=== PATIENT | female | born 1995 | race Caucasian/White ===

== ENCOUNTER 2023-01-30 14:27 | Outpatient (OUT) | payer BC, SELFPAY ==
[2023-01-30 15:23] LABS: Basophils Percent Auto 0.3 % (0.2-2.0); Eosinophils Absolute Auto 0.1 10^3/uL (0.0-0.7); Eosinophils Percent Auto 1.3 % (0.9-7.0); Hemoglobin 13.1 g/dL (12.0-16.0); Immature Granulocytes Abs Auto 0.02 10^3/uL (0.00-0.03); Immature Granulocytes Pct Auto 0.3 % (0.0-0.5); Lymphocytes Absolute Auto 1.9 10^3/uL (1.2-3.8); Lymphocytes Percent Auto 29.5 % (20.5-60.0); Mean Corpuscular HGB Conc 34.5 g/dL (29.9-35.2); Mean Corpuscular Hemoglobin 30.3 pg (26.7-34.0); Mean Platelet Volume 10.5 fL (9.5-13.5); Monocytes Absolute Auto 0.4 10^3/uL (0.3-0.8); Monocytes Percent Auto 5.9 % (1.7-12.0); Neutrophils Absolute Auto 3.9 10^3/uL (1.4-6.5); Neutrophils Percent Auto 62.7 % (43.0-75.0); Platelet Count 230 10^3/uL (150-450); Red Blood Count 4.32 10^6/uL (4.20-5.40); White Blood Count 6.3 10^3/uL (4.0-11.0)
[2023-01-30 16:16] LABS: Alanine Aminotransferase 54 U/L (14-59); Albumin Globulin Ratio 1.1; Alkaline Phosphatase 57 U/L (46-116); Anion Gap 11.4; Aspartate Amino Transferase 23 U/L (15-37); Bilirubin Total 0.8 mg/dL (0.2-1.0); Carbon Dioxide 28.5 mmol/L (21.0-32.0); Chloride 105 mmol/L (98-107); Estimated GFR (African America >60 (>=60); Estimated GFR (Non-African Ame >60 (>=60); Free Thyroxine Index 2.78 (1.30-4.50); Globulin 3.7 g/dL; Glucose 96 mg/dL (74-106); Potassium 3.9 mmol/L (3.5-5.1); Sodium 141 mmol/L (136-145); Thyroid Stimulating Hormone 2.243 uIU/mL (0.358-3.740); Total Protein 7.7 g/dL (6.4-8.2)
== END 2023-01-30 14:28 | disposition home or self-care (01) ==
LOC: LAB 14:31
PROVIDERS: PCP Family Medicine; Visit Provider Psychiatry & Neurology Psychiatry
DX: F41.8 Other specified anxiety disorders (principal); Z79.899 Other long term (current) drug therapy
CPT/HCPCS: 36415; 80053; 84436; 84443; 84479; 85025

== ENCOUNTER 2023-07-01 09:34 | Emergency (ER) | payer BC, SELFPAY ==
[2023-07-01 09:42] VITALS: BP 123/89; PULSE 93; RESP 18; TEMP 36.6; O2SAT 98; BMI 29.5
--- NOTE | 2023-07-01 09:47 | ED_ITS ---
HPI - Nausea/Vomiting/Diarrhea General Chief complaint: Nausea/Vomiting/Diarrhea Stated complaint: FLU LIKE SYMPTOMS Time Seen by Provider: 07/01/23 09:36 Source: patient Mode of arrival: walk-in Limitations: no limitations History of Present Illness HPI Narrative: this patient's here primarily because of nausea vomiting and diarrhea. Historically she got sick a couple weeks ago with upper respiratory symptoms. S he had severe aches pains chills myalgias. Her family doctor called in a prescription for Keflex. She's not taken it for a number of days because she's been so nauseated. She is urinating far less than usual. She did not have unilateral flank pain. She's not had blood in her urine and has not had urinary type symptomatology. She says as I mentioned, voiding much less than usual. Over the last several days now she's developed gastrointestinal symptoms) having upper estuary symptoms. She did test for Covid home was negative. She did not see a health care provider. Related Data Home Medications Medication Instructions Recorded Confirmed buspirone 15 mg tablet 15 mg PO BID 07/01/23 07/01/23 cephalexin 500 mg capsule 500 mg PO Q12H 07/01/23 07/01/23 drospirenone 3 mg-ethinyl 1 tab PO DAILY 07/01/23 07/01/23 estradiol 0.03 mg tablet hydroxyzine pamoate 50 mg capsule 50 mg PO Q6H PRN nausea and 07/01/23 07/01/23 vomiting ondansetron 4 mg disintegrating 4 mg PO Q12H 07/01/23 07/01/23 tablet venlafaxine 150 mg 150 mg PO DAILY 07/01/23 07/01/23 capsule,extended release 24 hr Allergies Allergy/AdvReac Type Severity Reaction Status Date / Time hydrocodone AdvReac Intermediate Verified 07/01/23 09:41 oxycodone AdvReac Intermediate Verified 07/01/23 09:41 pcn AdvReac Intermediate Uncoded 07/01/23 10:24 PFSH PFSH Social History Smoking status: Never smoker Exam Narrative Exam Narrative: awake alert no obvious distress moves about comfortably with no guarding. Vital signs are stable she is afebrile. Skin and integument show no tenting of the skin there is good color there is good tissue perfusion. There is no diaphoresis or clamminess. Her eyes do not show any scleral icterus or evidence of anemia. There is no conjunctivitis. Examination abdomen is good bowel sounds in all quadrants previous incisions from cholecystectomy are noted. There is no guarding rebound rigidity or peritoneal findings. No tenderness at McBurney's point actually there is no tenderness at all. Constitutional Vital Signs, click to edit/add: Last Vital Signs Temp 97.9 F 07/01/23 09:42 Pulse 93 H 07/01/23 09:42 Resp 18 07/01/23 09:42 BP 123/89 07/01/23 09:42 Pulse Ox 98 07/01/23 09:42 Course Vital Signs Vital signs: Vital Signs Temperature 97.9 F 07/01/23 09:42 Pulse Rate 93 H 07/01/23 09:42 Respiratory Rate 18 07/01/23 09:42 Blood Pressure 123/89 07/01/23 09:42 Pulse Oximetry 98 07/01/23 09:42 Temperature 97.9 F 07/01/23 09:42 Pulse Rate 93 H 07/01/23 09:42 Respiratory Rate 18 07/01/23 09:42 Blood Pressure 123/89 07/01/23 09:42 Pulse Oximetry 98 07/01/23 09:42 MDM - Nausea/Vomiting/Diarrhea MDM Narrative Medical decision making narrative: laboratory testing is essentially normal. Her BUN/creatinine are normal. Her specific gravity in the urine is normal. There is no ketones in the urine. Her white blood cell count is normal. She did feel better after hydration.supportive care for vomiting and diarrhea was discussed. Discharge Plan Discharge Chief Complaint: Nausea/Vomiting/Diarrhea Clinical Impression: Gastroenteritis Patient Disposition: Home, Self-Care Time of Disposition Decision: 11:09 Prescriptions / Home Meds: No Action buspirone 15 mg tablet 15 mg PO BID cephalexin 500 mg capsule 500 mg PO Q12H ondansetron 4 mg tablet,disintegrating 4 mg PO Q12H drospirenone-ethinyl estradiol 3-0.03 mg tablet 1 tab PO DAILY venlafaxine 150 mg capsule,extended release 24hr 150 mg PO DAILY hydroxyzine pamoate 50 mg capsule 50 mg PO Q6H PRN (Reason: nausea and vomiting) Additional Instructions: clear fluids until stomach starts to feel better. Stand Alone Forms: Portal Instructions Referrals: Sixto Gomez MD [Primary Care Provider] - 1 week
[2023-07-01] MEDS: 0.9 % SODIUM CHLORIDE 1,000 ML 999 ML IV ×2 (10:05→10:46)
[2023-07-01] MEDS: ONDANSETRON PF 4 MG/2 ML VIAL IV (10:05)
[2023-07-01 10:13] LABS: Basophils Percent Auto 0.5 % (0.2-2.0); Eosinophils Absolute Auto 0.1 10^3/uL (0.0-0.7); Hematocrit 38.1 % (36.0-48.0); Hemoglobin 13.4 g/dL (12.0-16.0); Immature Granulocytes Abs Auto 0.01 10^3/uL (0.00-0.03); Immature Granulocytes Pct Auto 0.2 % (0.0-0.5); Lymphocytes Absolute Auto 2.7 10^3/uL (1.2-3.8); Lymphocytes Percent Auto 44.6 % (20.5-60.0); Mean Corpuscular HGB Conc 35.2 g/dL (29.9-35.2); Mean Corpuscular Hemoglobin 31.2 pg (26.7-34.0); Mean Corpuscular Volume 88.6 fL (81.0-99.0); Mean Platelet Volume 11.3 fL (9.5-13.5); Monocytes Absolute Auto 0.4 10^3/uL (0.3-0.8); Neutrophils Absolute Auto 2.9 10^3/uL (1.4-6.5); Neutrophils Percent Auto 46.7 % (43.0-75.0); Platelet Count 213 10^3/uL (150-450); Red Cell Distribution Width 11.5 % (11.0-15.0); White Blood Count 6.1 10^3/uL (4.0-11.0)
[2023-07-01 10:13] LABS: Bilirubin Urine NEGATIVE (NEGATIVE); Blood Urine TRACE-I (NEGATIVE); Clarity Urine CLEAR (CLEAR); Color Urine LT. YELLOW (YELLOW); Glucose Urine UA NEGATIVE (NEGATIVE); Ketones Urine NEGATIVE (NEGATIVE); Leukocyte Esterase Urine NEGATIVE (NEGATIVE); Nitrite Urine NEGATIVE (NEGATIVE); Protein Urine NEGATIVE (NEG/TRACE); Urobilinogen Urine 0.2 EU/dL (0.2-1.0)
[2023-07-01 10:17] LABS: Urine Microscopic Indicated YES
[2023-07-01 10:32] LABS: Bacteria Urine SMALL #/HPF (NONE SEEN); Cast Seen? NONE SEEN #/LPF (NONE SEEN); Crystals Seen? None Seen #/HPF (None Seen); Mucus Urine NONE SEEN (NONE SEEN); RBC Urine 0-2 #/HPF (0-2); Squamous Epithelial Cell Urine FEW #/LPF (NONE/RARE); Urine Culture Indicated YES; WBC Urine NONE SEEN #/HPF (NONE SEEN)
[2023-07-01 10:42] LABS: Alanine Aminotransferase 46 U/L (14-59); Albumin Level 3.9 g/dL (3.4-5.0); Alkaline Phosphatase 50 U/L (46-116); Anion Gap 10.5; Aspartate Amino Transferase 26 U/L (15-37); BUN Creatinine Ratio 14.5; Bilirubin Total 0.7 mg/dL (0.2-1.0); Calcium 9.4 mg/dL (8.5-10.1); Carbon Dioxide 25.1 mmol/L (21.0-32.0); Chloride 102 mmol/L (98-107); Estimated GFR (African America >60 (>=60); Estimated GFR (Non-African Ame >60 (>=60); Globulin 3.8 g/dL; Glucose 97 mg/dL (74-106); Potassium 3.6 mmol/L (3.5-5.1); Sodium 134 mmol/L (136-145); Total Protein 7.7 g/dL (6.4-8.2)
== END 2023-07-01 11:17 | disposition home or self-care (01) ==
PROVIDERS: Emergency Provider Emergency Medicine Emergency Medical Services; PCP Family Medicine
DX: K52.9 Noninfective gastroenteritis and colitis, unspecified (principal); Z79.899 Other long term (current) drug therapy
CPT/HCPCS: 36415; 80053; 81001; 83690; 85025; 87086; 96361; 96374; 99284; J2405

== ENCOUNTER 2023-09-09 20:29 | Outpatient (REF) | payer BC, SELFPAY ==
[2023-09-13 10:13] LABS: Age Gdln ACOG Testing Note (.); HPV Aptima Negative (Negative); IGP, Aptima HPV, rfx 16/18,45 Note (.)
== END 2023-09-09 20:30 | disposition home or self-care (01) ==
LOC: LAB 20:29
PROVIDERS: PCP Family Medicine; Visit Provider Obstetrics & Gynecology
DX: Z01.419 Encounter for gynecological examination (general) (routine) without abnormal findings (principal)
CPT/HCPCS: 87624; G0145

== ENCOUNTER 2023-09-10 08:26 | Outpatient (OUT) | payer BC, SELFPAY ==
--- NOTE | 2023-09-10 08:28 | US_ITS ---
The [address] [address] Patient Name: RAJIV LANDAVERDE MRN: [id number] date: 1995 Sex: F Assigned Patient Location: [facility] Current Patient Location: [facility] Accession/Order Number: [id number] Exam Date: 09/10/2023 08:28 Report Date: 09/10/2023 09:41 At the request of: TRESA LOZANO Procedure: US pelvis w/ transvaginal EXAM: Pelvic ultrasound HISTORY: . PELVIC PAIN . COMPARISON: None. TECHNIQUE: Transabdominal and transvaginal scanning was performed FINDINGS: Scanning of the pelvis demonstrates the uterus to measure 8.1 x 3.6 x 4.7 cm. Uterus is anteverted. Endometrial complex measures 5 mm. Right ovary measures 3.2 x 3.3 x 1.5 cm. Color-flow is noted. No masses are noted. Follicles are noted. Left ovary measures 2.6 x 2.5 x 1.7 cm. Color-flow is noted. Follicles are noted. No fluid is noted in the cul-de-sac. US/US pelvis w/ transvaginal IMPRESSION: Normal ultrasound of the pelvis. Electronically authenticated by: TONE MEJIA Date: 09/10/2023 09:41
--- OUTSIDE RECORDS SUMMARY | 2023-09-10 08:31 | XMS_ITS | CCD ---
Author Organization [facility] Care Team Providers Care Warehouse Operations Manager Name Role Phone DR AKASH MARTINEZ Admitting Unavailable MICHELLE, DR AKASH Murray Attending Unavailable GUS, DR [facility] Unavailable MARILIN ROWELL Consulting Unavailable GUS, DR [facility] Unavailable ELSIE HIGGINS Admitting Unavailable ELSIE HIGGINS Attending Unavailable JEANIE SEWELL Consulting Unavailable MICHELLE, DR AKASH Murray Admitting Unavailable MICHELLE, DR AKASH Murray Attending Unavailable GUS, DR [facility] Primary [facility] Unavailable MICHELLE, DR AKASH Murray Consulting Unavailable MICHELLE, DR AKASH Murray Admitting Unavailable MICHELLE, DR AKASH Murray Attending Unavailable GUS, DR [facility] Unavailable MICHELLE, DR AKASH Murray Consulting Unavailable MARILIN ROWELL Consulting Unavailable MICHELLE, DR AKASH Murray Admitting Unavailable MICHELLE, DR AKASH Murray Attending Unavailable GUS, DR [facility] Unavailable MICHELLE, DR AKASH Murray Consulting Unavailable Unavailable Primary Care Provider UnavailMY Lee Attending Unavailable FLYNN ARCHIBALD Attending Unavailable FLYNN ARCHIBALD Attending Unavailable Allergies Allergy Classification Reported Allergen(s) Allergy Type Date of Onset Reaction(s) Facility (2 sources) HYDROcodone Drug Allergy [address] [facility] Repository (2 sources) oxyCODONE Drug Allergy [address] [facility] Repository (2 sources) Penicillins Drug allergy (disorder) 5 [facility] Repository (3 sources) Acetaminophen / HYDROcodone Drug Allergy 4 Unknown [facility] (3 sources) HYDROcodone Drug Allergy 4 Hives [facility] Work Phone: (3 sources) oxyCODONE Drug Allergy 4 Hives [facility] (3 sources) Penicillin G Drug Allergy 4 [facility] (3 sources) Penicillin G sodium Allergy to substance 4 Rash [facility] Healthcare (3 sources) Penicillins Drug Allergy 4 Hives [facility] (3 sources) Sulfamethoxazole / Trimethoprim Drug Allergy 4 Rash [facility] Healthcare (3 sources) Sulfonamides (Antibiotic) Drug Allergy 4 [facility] Healthcare Medications Current Medications Medication Drug Class(es) Dates Sig (Normalized) Sig (Original) drospirenone 3 mg / ethinyl estradiol 0.03 mg oral tablet (3 sources) Progestin, Estrogen Start: 04-24-2023 End: 04-23-2024 drospirenone-ethin yl estradiol ([place], [place]) 3-0.03 MG tablet Indications: Uses control Take 1 tablet by mouth in the morning. 360 tablet 0 04/24/2023 04/23/2024 Active valACYclovir 500 mg oral tablet (2 sources) Herpesvirus Nucleoside Analog DNA Polymerase Inhibitor, Herpes Simplex Virus Nucleoside Analog DNA Polymerase Inhibitor, Herpes Zoster Virus Nucleoside Analog DNA Polymerase Inhibitor Start: 08-08-2023 take 1 tablet by mouth once daily valACYclovir (Valtrex) 500 MG tablet Indications: Herpesviral vesicular dermatitis Take 1 tablet daily, by mouth, 30 days 30 tablet 11 08/08/2023 Active Start: 08-08-2023 take 1 tablet by dat th once daily valACYclovir (Valtrex) 500 MG tablet Indications: Herpesviral vesicular dermatitis Take 1 tablet daily, by mouth, 30 days 30 tablet 11 08/08/2023 Active Problems Active Problems Problem Classification Problem Date Documented Date Episodic/Chronic Spondylosis; intervertebral disc disorders; other back problems (6 sources) Spondylosis without myelopathy or radiculopathy, lumbar region; Translations: [Other intervertebral disc degeneration, thoracic region] Onset: 07-20-2021 Chronic Unclassified (2 sources) COUGH, UNSPECIFIED; Translations: [COUGH, UNSPECIFIED] Onset: 09-05-2021 Unclassified (1 source) CONTACT W/AND (SUSP) EXPOS COVID-19; Translations: [CONTACT W/AND (SUSP) EXPOS COVID-19] Onset: 09-05-2021 Unclassified (1 source) LOW BACK PAIN, UNSPECIFIED; Translations: [LOW BACK PAIN, UNSPECIFIED] Onset: 08-03-2021 Viral infection (2 sources) Herpesviral vesicular dermatitis; Translations: [Herpesviral vesicular dermatitis] 08-08-2023 Episodic Past or Other Problems Problem Classification Problem Date Documented Da te Episodic/Chronic Abdominal pain (4 sources) Unspecified abdominal pain; Translations: [UNSPECIFIED ABDOMINAL PAIN] Onset: 07-18-2021 Episodic Other aftercare (1 source) Other detention (current) drug therapy; Translations: [OTH ASSISTED CURRENT DRUG THERAPY] Onset: 09-05-2021 Episodic Other upper respiratory infections (1 source) Acute upper respiratory infection, unspecified; Translations: [ACUTE UP RESPIRATORY INFECTION UNS] Onset: 09-05-2021 Episodic Unclassified (1 source) COUGH, UNSPECIFIED; Translations: [COUGH, UNSPECIFIED] Onset: 09-03-2021 Results Test Name Value Interpretation Reference Range Facility Covid-19 PCR ([facility])on 08-22 SARS-CoV-2 (COVID-19) RNA MARY+probe Ql (Unsp spec) Not detected Normal NOT DETECTED [facility] Comment on above: Result Comment: This test is not yet approved or cleared by the [place] FDA. When there are no FDA-approved or cleared tests available, and other criteria are met, FDA can make tests available under an emergency access mechanism called an Emergency Use Authorization (EUA). The EUA for this test is supported by the [place] of Health and Human Service's (HHS's) declaration that circumstances exist to justify the emergency use of in vitro diagnostics for the detection and/or diagnosis of the virus that causes COVID-19. This EUA will remain in effect (meaning this test can be used) for the duration of the COVID-19 declaration justifying emergency of IVDs, unless it is terminated or revoked by FDA (after which the test may no longer be used). When diagnostic testing is negative, the possibility of a false negative should be considered in the context of a patient's recent exposures and the presence of clinical signs and symptoms consistent with SARS-CoV-2. Performed By: #### C VDTB #### [facility] [address] [place] [address] Dr. Karlos Augustin GROUP A STREP CULTUREon 08-22 S. pyogenes Ag Ql (Unsp spec) Culture Observations: NEGATIVE FOR GROUP A STREPTOCOCCUS. Normal [facility] Comment on above: Performed By: #### S ДМИТРИЙ GRASTCX #### [facility] [address] [place] [address] Dr. Karlos Augustin INFLUENZA A AND B AGon 09-03 INFLUANEGH SEE BELOW Normal [facility] Comment on above: Result Comment: Nega tive for Flu A protein angiten. Infection due to Flu A cannot be ruled out. Flu A angiten in the sample may be below the detection limit of the test. Performed By: #### I NFLUAB #### [facility] [address] [place] [address] Dr. Karlos Augustin INFLUBNEGH SEE BELOW Normal [facility] Comment on above: Result Comment: Nega tive for Flu B protein antigen. Infection due to Flu B cannot be ruled out. Flu B antigen in the sample may be below the detection limit of the test. Performed By: #### I NFLUAB #### [facility] [address] [place] [address] Dr. Karlos Augustin INFLUENZA A AG Negative Normal NEGATIVE SEE COMMENT [facility] Comment on above: Performed By: #### I NFLUAB #### [facility] [address] [place] [address] Dr. Karlos Augustin INFLUENZA B AG Negative Normal NEGATIVE SEE COMMENT [facility] Comment on above: Performed By: #### I NFLUAB #### [facility] [address] [place] [address] Dr. Karlos Augustin INTERNAL CONTROLS Within Normal Limits Normal Wi thin Normal Limits [facility] Comment on above: Performed By: #### I NFLUAB #### [facility] [address] [place] [address] Dr. Karlos Augustin STREPT SCREENon 09-03-2021 STREP SCREEN A Negative Normal NEGATIVE [facility] Comment on above: Performed By: #### S ДМИТРИЙ GRASTCX #### [facility] [address] [place] [address] Dr. Karlos Augustin PREG HCG QUALon 08-01-2021 , QUAL Negative Normal NEGATIVE [facility] Comment on above: Performed By: #### P REG #### [facility] [address] [place], [place] [address] Dr. Karlos Augustin PREG HCG QUALon 07-04-2021 , QUAL Negative Normal NEGATIVE [facility] Comment on above: Performed By: #### P REG #### [facility] [address] [place], [place] [address] ABDOMEN AND PELVIS W IV C [facility] 04-05-2021 CT ABDOMEN AND PELVIS W IV CONTRAST [facility] Department of Radiology [address] [place] [id number] Patient Name: RAJIV TOVAR : 1995 Sex: F Age: Race: White Pt. Location: [facility] Patient Status: D Ordered Date: 03/21/2021 4:00:00 PM Completed Date: 04/05/2021 03:49 PM Requesting Provider: ДМИТРИЙ CALLAHAN Attending Provider: ДМИТРИЙ CALLAHAN Report Copy To: ALON WEBER Signs & Symptoms: R10.31 Right lower quadrant pain I10 History: Josefa Is patient on meds for HTN or DM? 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 Per BS [employer] for CPT 72843 Ref#[id number] Med Nec-Passed *SLA Comments: Exam: CT ABDOMEN AND PELVIS W IV CONTRAST CLINICAL HISTORY: Right lower quadrant pain. TECHNIQUE/PROCEDURE: CT abdomen and pelvis with intravenous contrast. Automated exposure control was utilized. COMPARISON: No relevant prior studies available. FINDINGS: The lung bases are clear. The heart size is normal. No pericardial effusion. Normal hepatic morphology. No focal intrahepatic lesions are identified. Status post cholecystectomy. There is no biliary dilatation or portal venous thrombus. Pancreas is unremarkable. Spleen is normal in size. The adrenal glands and kidneys are within normal limits. There is a 3 mm calculus in the left upper pole. The urinary bladder is unremarkable given the degree of distention. Uterus and ovaries present. Abdominal aorta is nonaneurysmal. The IVC is right-sided. No enlarged abdominal or pelvic lymph nodes. Air and stool are scattered throughout the colon. There is no bowel dilatation. There is no free air or free fluid. The appendix is within normal limits. The osseous structures are age compatible. No aggressive osseous lesions. IMPRESSION: * No acute abdominal or pelvic findings. All CT scans at this facility use dose modulation, iterative reconstruction, and/or weight based dosing when appropriate to reduce radiation dose to as low as reasonably achievable. Electronically signed: Noemy Stanley M.D.. Transcribed by: [email or web address], User Resident: Electronically Signed by: NOEMY STANLEY @ 04/07/2021 01:25 PM Normal [facility] CHEST 2 [facility] 03-21-2021 [facility] CHEST 2 [facility] Department of Radiology [address] [place] [id number] Patient Name: RAJIV TOVAR : 1995 Sex: F Age: Race: White Pt. Location: [facility] Patient Status: D Ordered Date: 03/21/2021 2:25:00 PM Completed Date: 03/21/2021 02:22 PM Requesting Provider: ДМИТРИЙ CALLAHAN Attending Provider: Report Copy To: Signs & Symptoms: R07.81 Pleurodynia I10 History: [place] Comments: right ribs pain Exam: [facility] CHEST 2 VWS [facility] CHEST 2 VWS 03/21/2021 2:22 PM CLINICAL INDICATIONS: R07.81 Pleurodynia I10 TECHNOLOGIST COMMENTS: right lateral sided rib pain x 1 year no known injury QUESTION FOR THE RADIOLOGIST: right ribs pain PROTOCOL: AP(PA) and Lateral views were obtained. COMPARISON: None FINDINGS: Heart size normal lung lara clear. The lung lara are well-inflated suggesting air trapping. IMPRESSION: Air trapping without acute airspace disease Electronically signed: Cyril Olivo. Transcribed by: [email or web address], User Resident: Electronically Signed by: CYRIL OLIVO @ 03/22/2021 02:39 PM Normal [facility] Comment on above: Order Comment: right ribs pain Coding Summary.on 03-03-2021 Coding Summary. CD:[id number] G h0bWw+PGhlYWQ+OH4IIXR rT07exBArdF6ZH4sCKI7Y PTGFDGTPOD3IHK5diKY1U SdkD6OrrfCc NqiqjAZfMO41NHt3SCX9g JkqGYeqhU3ypJKfW0n4Rb CgQG36mM30TBjyRLHqGpY 3LjZpbjsgbWFy H3leVqGmaLKhWeg+PHRhY mxlIHdpZHRoPScxMDAlJy PqjUspOA1zBe6wMTRtZAT vbGxhcHNlOiBj d4leEKUrVVzcOT5yqArpD 9MqaCC6EJEpe1f5Nw16sI I+XMUmFCU4iEnjNUlej37 2HfKmo6dhTWH5 eYBcGAbvMBY1F98tj4E0G ZZeDUUlAVU8zIZ0aJ7cfR tgdgmxJ2VcbJJrBnK8ESY 6fHYnoK0omZdn irzxsB4cJkb+F98XSU7UN AGJZQ7UIcj5Z0GhMsovmX I+WT35WCGtUL78gANmwUF hc3whqUi4AuDk CBGkHDT4bKgtIZctb8HuG PZrP64bxTTsw5Q8GGWxqW rffSUcHlPriQK6bM7hTIn wteons7fhrfrx Dlfwr4wqmf25vA90Y93dS SvaWLGvFBN4GFLsWAWkbF xemo1rkY6dAa7+IKlri8w dq3qiaUi8FxEh ABDckxSxwBnsVXH5z8KsR j08U1BnvUocu1CqJcy2ue 11xTXtz3N1eFB2WSgsXRL swM0nHBhoDjF9 SHUcJxEbhP09tAVgFBqfD b1dtNlnwLbcGC5aDMLhsu acLQDbfZ1vSRRciTSvsUv mSE4lZLFgzsag g064OoXhPDD7CJEvxDYuZ 1EqpV8bAjDfZSNmTWHeH6 DjrILhIDspL802KKfcVaR 8TKPizfVvC3Cx OIKjhSteJkL3e2C7Ic3Aa 1SxrolkDYZ7VUdrQGG4Ly MuCiTsVsJ0Q9CxArg1VMQ fqPezPF8vT1Gz BLRjazpyqbrxaAC2TQOjF AIrmM98iSOhEFooSk5jo7 T0p528CMDmMFPsfP21Ce2 udDogMTBwdCBU bE4qbqnel0trdeafOtUdL GRfNWs9NHj0KDErdEtjKg EpWLY5JkA7OHT5hOTlqY2 prWkxpvcvhL2a Oyc+C25dfZ4kUKL4TVW4w kdwUAXrcxKyQI20HS48H3 RyPjwvdGFibGU+PGRpdiB hoPsfUS0gBhGv n9fmp2WrVRtkI0KkOFBfE OgeOns4FFDeWHG2aZM9mW 8vPOAtCZozv1V9pTA5W2S hyfBjoh1wd2fe NONhYMirY04xrDCaj1E4D JXvxDI5EROjbYaaHaJnwP 93Oyc+KRMlpHaxb6AuCmy jm5qiu4xptDh3 NgMaVHEwkwKinJcaHRT8g 5XxSe02Q26rZLarWFQaQZ ZmBPZzLDKmtEfube2pnP0 wIi8+PGNvbCB3 nKE8wB7kPMKyRcN9KRluJ 610RqFrzALtOgsal3gmw9 xkoFt2ZaDcJEJfsjLlyYq kSNX2e3CiAy20 D70sGDrfTNQzNSDoLQVoP MTbsJzrrl2keK0xIf7+PC 2lw7ifgg20iW38lVB+PHR sOYB8mCymQExq LHUzbH9mBWcgIfI6OBClQ jRsuP30dEOoCAyeZc7lhF gkuRktQK8sVVSpdhwbo33 0AqXfv8dvMGTu sXFiIQtaXFF5Z57ib0H2P IDtETNbPWQ2wDS0wY2ehE lnbjogbGVmdDsgdmVydGl uRCbpOXruA298 IHRvcDsnPlBhdGllbnQgT aXnYQm5A9PbLbr3IGYmqY vxIM9ebTZsFMpjMq9wiRe toGrcGO3hFDCg bhsgx970AgAof8zxKZPzp SKiDGboPXA5H51lk4B7RP GhHGCgYNG9kVA6jD5vfBv nbjogbGVmdDsg cwTvfJdkYQfcUDgbS439N HRvcDsnPkJpcnRoIERhdG U6JE92EK09dNStt1M6yRY 0G9AfKTMbuhxq ezldrDT0WFPiQGCjhS44P h4xeXsrRl0bCPZgWQF3EW OspDYuH8AteQ7hBvXyALJ fCTDwE6VsbQVf KMyfQ813KPvkLqW1VZQpi eYqJ8VvETUnmOpwGmL3n2 X8Fs7YL7V4RJ46OZ67xBQ ao5Z7lSJ7Y8Rz CMPyporsbgsmlUW3DPKqH CVmvQ50Eu5jnSuoYc7qDH QpDJY4SQPenLYhK2TzoB1 yOiAjMDAwMDAw D7XvoQKtZLpvT225PLqyM lR9JKOesjJqB9SfDUHwyF cdGwW2u9G6Qb5XLEu4KN7 9PP52eNTux5O4 cGY8J7OiLHJopqqlfhumj TF2XICkELOznF99Sa1zhA pqMv5wTIJvBSQ3TEIblOB iQ2KqsT3mImNf LUSrAIEhS1FhgHShQMxwN 622BNoqOwN4ZSVwuzVwG5 GdGQKbzKvaIxH3h5P8Fx5 WIWJtUE16TJG8 pYV6LU38VR99W4UnSqyvd GFibGU+PHRhYmxlIHdpZH RoPScxMDAlJyBzdHlsZT0 bKl6gPDPqXHIw tEfiiYRlWcFme4lgWHZbJ AtnHB6eqXipF0OcaBL6QM Knv5j9Hl65B33wR3YpyIN +YEHgrGK2oDH9 mO5kQnGsDbT0SDfeF934H zPmxVYzCmufk6oqv4ohmW a3FzN3XHDgzhKcxQunBWU 3a6DxOo94Z59s IHdpZHRoPSIxNSUiIHZhb Kdznu4xkZ9kAj0+PGNvbC I8yLB3uY7jXeKvImW5CVz qY411WxYtdHJu Idibh4zcp5qmhMa9SbQeZ QAiavVsmYsrSWA4j2LxTm 82N6EuiMlcp4IhXxh3gt3 6lEVeg6P1iVU8 R0WiKXTqkiklwYRbeHnyG F0lYTRazkxsBWPliR1dSX VxA0u3KzTtHiT0JHkmY2H zjlQ5MITttYNx LIyyTXP4U29uv9F4PNIjZ ZEaIXK2wIX8xY7hbAamet ogbGVmdDsgdmVydGljYWw cAFpaU732MRBv rNpwYAXwfK5vYSDsxPSgw ZvzXO6fDJImrmqgUeKJDD ENSZZWHVtHG7Q4M2WhMjf 8FNItmErwJC7z zIXpHVenEm6neXgdjPueZ X7hKWLsvzkxWNRsbG1hUB BavDVpaUhdUD5oDRXtmlj cx415XcCaBUW8 TJNkfDWpN6LnwQ0kRpWkP CFuXBYgA3SwvUIdELlvG8 05AZccOwA6OWCjmdCxH6A sLWFsaWduOiB0 q6Y1Av4pML1eLh5vCCkrZ O30SP88sHEuv5I8cHU9N4 AhWQSeicntyqwesUB5EPN rYWDpxH60aYYc KDwvKf0hh9A7j638MUEfQ KTrgS33Pp0piQxsURXndU AMiA4xtkxpr9uvqbioOqA eBRMjLVi2OAy7 QLCtqPawLmTkIQI8OdY8Y XJ2uCKeaW4aqMyoswetlQ 9wOyc+FjeyTDTztmD7V7A uMki3MFTigQjx KM3fmWTwPFohWv3qjBmuy EkgAQ5iOXMqpimkCDJfiN 8vOWVirGEewGosWZ7rUEZ sxmjdb511XiVo ERF2HKUdyFNdZ3VukM2nJ eUsDSNlSTIuK2OztHKmCG vxM125GZojFhY2SCHztaS hZ3FjXZVwtFwa TwJ3n0X3Ak1GAX2mgNK6W 8RmLrg9VMJewMqcKR3sjF XtKFcnVr0qlRpqvLnsRR3 wNTBpbjtwYWRk nN6aQAYvaCSriHyaVH4sD QOdjgprl352ZnEvKGK6LO VroNPoS4QfuG7gIwCjHRU kVUNuF3CrwDFd CRxjR825VCjbQkX2IYVkd pYbI3EaTGXsyJjjKnM1q6 Q2Sf8PyROpO3BwZ7l9Q0Z kPjwvdHI+PC90 LFLlDE80cXMmzCAmv5xah Th1LxGaMEUxFZA9aIubVS ymc9EhBOWeW17mcHQat3X 6IGNvbGxhcHNl OoAwkFT3eD6wNCujducgu 1rpbdeuZsyox8oevf04nN 24Q05pZCvwGZJpJCWiMOF jLAZkfOxhzh2v gB4yBz9+GRRbdPG8nDP1l W2nOuJoIlF2PJdjH506Mt OwyGMaFgwug5yoa9suvVa 9IjIwJSIgdmFs tUyjBEA8v4KsRv43A01lW HdpZHRoPSIyMCUiIHZhbG ufjj8sfV4fYw6+QZ1xc1l vdl44zB76dNV+ YFExVPH6hRydJFubNHYlu T7jDWseYvA8ZXChDmOjxW 72aHQjNZtvBa7loWkpnLk dWK4rIKEheovt d024DrZlc8urKXNgfDZtX VuyOIG0W70ve3B7FVSqQQ TaVFG1vDR6oV2keGznpux gbGVmdDsgdmVy gAguZZrjFGcfK986ETNyw EbmLzMzlGReT0xsenUNCG 1lOjwvdGQ+UHKbBUT9mWg ySRcoRBLzeG4y MJRxB4y3FjRtBwR0XUlfD 8RzthT0VBUfiWFlRXSpyI TLzD9mfusof6lwhuopMnY fHMLgBJt2QFc5 OUUmjNcgKbYzHLN9LgW9A OX5nTBanJ2exHcksuudwS 9wOyc+RklOOjwvdGQ+PHR vCEL7rBteEUda YDZodX8dOVLoS2j3PpUyM rC4SEkkW3TghiP7AZYigQ RvPWVekSXBmA8lzzzhj1k vcjogIzAwMDAw MUl4NOa8YVMaaGvnUfPlA RV1GkR5SJU0iGJyfQ2mhN qmaigwiU5lHud+TVJOOjw vdGQ+PHRkIHN0 tAprXYvaLDOkxX8eCLTtW 8e0RfCyLwR1OLmmL6Vivz R9IIMvjRCpZVHcfJUNsO1 loaqez0zgergj HbBcSAKfTQj4ZXf0TGNzi BhhObDfSVD7NpT0WLT1cK QzrZ4ydTpkivkzrD2pOmv +ILW3OGT4DM52 QP50F9BaQyqjjWYvaGK+P HRhYmxlIHdpZHRoPScxMD CgDwZfoEctXE1oFz1rBLI yLWNvbGxhcHNl OiBj (more content not included)... Normal [facility] Auto Diffon 02-28-2021 Basophils/100 WBC (Bld) 0.4 % Normal 0.0-2.0 [facility] Comment on above: Order Comment: Order Added by Discern Expert. Performed By: #### 2 [id number], [id number], 08795996, 82710166, 47090341, 29699792, 7473731, 6556015, 0982937, 3527130 ####[address] [place] [address] Basophils/Leukocytes Auto (Bld) [Pure # fraction] 0.0 E9/L Normal 0.0-0.2 [facility] Comment on above: Order Comment: Order Added by Discern Expert. Performed By: #### 2 405266, 6047935, 83553081, 82163810, 54753954, 79040915, 9531889, 9281502, 7497941, 8994846 ####[facility] [id number] [place] [address] Eosinophils/100 WBC (Bld) 0.6 % Normal 0.0-8.0 [facility] Comment on above: Order Comment: Order Added by Discern Expert. Performed By: #### 2 971776, 0383186, 81130860, 61764133, 15129937, 05130263, 0373808, 9175625, 1260646, 4286404 ####[address] [address] Eosinophils/Leukocyt es Auto (Bld) [Pure # fraction] 0.0 E9/L Normal 0.0-0.5 [facility] Comment on above: Order Comment: Order Added by Discern Expert. Performed By: #### 2 873823, 2261843, 58683792, 39921944, 98532899, 28086117, 9686045, 9288480, 5972132, 2405695 ####[address] [place] [address] Lymphocytes/100 WBC (Bld) 7.9 % Low 14.0-50.0 [facility] Comment on above: Order Comment: Order Added by Discern Expert. Performed By: #### 2 144540, 7933704, 83030760, 85614410, 48690756, 86063185, 4927218, 5175496, 6400294, 2718750 ####[address] [place] [address] Lymphocytes/Leukocyt es Auto (Bld) [Pure # fraction] 0.4 E9/L Low 1.0-4.0 [facility] Comment on above: Order Comment: Order Added by Discern Expert. Performed By: #### 2 088971, 8289578, 87278452, 57822967, 67593344, 06729891, 0053707, 3806517, 3908169, 5751568 ####[facility] [id number] [place] [address] Monocytes/100 WBC (Bld) 5.5 % Normal 4.0-14.0 [facility] Comment on above: Order Comment: Order Added by Discern Expert. Performed By: #### 2 015325, 5994027, 87631198, 56019062, 13206032, 85842817, 2772181, 9674354, 8008151, 5178888 ####[address] [place] [address] Monocytes/Leukocytes Auto (Bld) [Pure # fraction] 0.3 E9/L Normal 0.2-1.0 [facility] Comment on above: Order Comment: Order Added by Discern Expert. Performed By: #### 2 661138, 1263218, 88996870, 80373472, 15587003, 69384277, 5958060, 5126697, 7043432, 0668508 ####[address] [place] [address] Neutrophils/100 WBC (Bld) 85.6 % High 36.0-75.0 [facility] Comment on above: Order Comment: Order Added by Discern Expert. Performed By: #### 2 051063, 0071515, 74156783, 78686115, 86841550, 82138996, 0914358, 7909781, 6589641, 0893538 ####[facility] [id number] [place] [address] Neutrophils/Leukocyt es Auto (Bld) [Pure # fraction] 4.5 E9/L Normal 2.0-7.5 [facility] Comment on above: Order Comment: Order Added by Discern Expert. Performed By: #### 2 008240, 9372265, 47265911, 20806807, 06439622, 48386966, 0055658, 0679557, 9943835, 0253753 ####[facility] [address] [place] [address] B hCG Qualon 02-28-2021 Beta hCG Ql Negative Normal [facility] Comment on above: Performed By: #### 2 226273, 2691760, [id number], 79740236, 32558986, 87489600, 0843119, 7667767, 3843806, 3868098 ####[facility] [address] [place] [address] BMPon 02-28-2021 Creatinine [Mass/Vol] 0.7 mg/dL Normal 0.5-1.3 [facility] Comment on above: Performed By: #### 2 [id number], 3412681, 86278956, 05222178, 04865776, 34701367, 3455791, 1670779, 4247009, 4113844 ####[facility] [address] [place] [address] Urea nitrogen [Mass/Vol] 9 mg/dL Normal 5-21 [facility] Comment on above: Performed By: #### 2 550108, 1022036, 28812704, 55728746, 29268471, 66559666, 1932156, 5056331, 0871630, 5422570 ####[facility] [address] [place] [address] Urea nitrogen/Creatinine [Mass ratio] 13 No Units Normal 10-20 [facility] Comment on above: Performed By: #### 2 566607, 2033222, 41776175, 04434944, 40922120, 60331718, 6759487, 1611748, 0481074, 8400520 ####[facility] [address] [place] [address] Anion gap [Moles/Vol] 14 mmol/L Normal 6-16 [facility] Comment on above: Performed By: #### 2 248824, 7061251, 07710043, 80407047, 19979798, 02958210, 5467919, 5247377, 2749823, 0554160 ####[facility] [address] [place] [address] Calcium [Mass/Vol] 8.5 mg/dL Low 8.9-11.1 [facility] Comment on above: Performed By: #### 2 687269, 3709800, 40199301, 75685969, 00284393, 76845811, 6629646, 9934660, 6783717, 9322219 ####[facility] [address] [place] [address] Chloride [Moles/Vol] 102 mmol/L Normal 101-111 [facility] Comment on above: Performed By: #### 2 700626, 1399201, 90239916, 26115531, 33344034, 56832680, 5825779, 6990298, 4307902, 5966568 ####[facility] [address] [place] [address] CO2 [Moles/Vol] 21 mmol/L Normal 21-31 [facility] Comment on above: Performed By: #### 2 085616, 5777663, 78056325, 41488814, 43665673, 52231893, 8905210, 5665467, 3206020, 4935836 ####[facility] [address] [place] [address] Glucose [Mass/Vol] 95 mg/dL Normal 55-199 [facility] Comment on above: Result Comment: If t his glucose result represents a fasting glucose, interpretation should refer to the following reference range: 55-99 mg/dL Performed By: #### 2 732539, 9502004, 88477195, 77957294, 90456316, 01899391, 5160153, 5982335, 9231964, 3762625 ####[facility] [address] [place] [address] Potassium [Moles/Vol] 3.6 mmol/L Normal 3.5-5.3 [facility] Comment on above: Performed By: #### 2 519906, 0106335, 34084082, 46596738, 53785730, 41893233, 2992293, 1010974, 9764176, 7958943 ####[facility] [address] [place] [address] Sodium [Moles/Vol] 133 mmol/L Low 135-145 [facility] Comment on above: Performed By: #### 2 686296, 6345463, 21490491, 87727911, 82676954, 79342532, 6941938, 2377006, 0695595, 8138107 ####[facility] [address] [place] [address] CBC w/ Auto Diffon 1 Erythrocyte distribution width (RBC) [Ratio] 12.4 % Normal 10.9-14.2 [facility] Comment on above: Performed By: #### 2 389234, 8555927, 71289858, 67133880, 86361722, 68906395, 9552254, 4745951, 9182129, 5171752 ####[place] [address] [place] [address] Hematocrit (Bld) [Volume fraction] 38.1 % Normal 34.0-46.0 [facility] Comment on above: Performed By: #### 2 383008, 9229951, 89969443, 15576305, 22590032, 29926990, 0407500, 4389296, 7171471, 8918953 ####[facility] [address] [place] [address] Hemoglobin (Bld) [Mass/Vol] 13.3 g/dL Normal 12.0-16.0 [facility] Comment on above: Performed By: #### 2 792148, 0848906, 49283911, 23012981, 80910411, 98302630, 5327209, 5283494, 3975631, 8815716 ####[address] [place] [address] MCH (RBC) [Entitic mass] 31.7 pg Normal 27.0-34.0 [facility] Comment on above: Performed By: #### 2 816958, 4336677, 18607865, 80354481, 19183705, 87222189, 9519142, 1867548, 5640267, 9535983 ####[address] [place] [address] MCHC (RBC) [Mass/Vol] 35.0 g/dL Normal 31.4-36.0 [facility] Comment on above: Performed By: #### 2 155665, 5378069, 14343375, 87585458, 78306487, 08206643, 1772146, 9528553, 5984744, 6586002 ####[address] [place] [address] MCV (RBC) [Entitic vol] 90.8 fL Normal 80.0-100.0 [facility] Comment on above: Performed By: #### 2 641159, 0762887, 98428297, 98180524, 73610462, 40357048, 7005840, 4043873, 3618939, 3127546 ####[address] [address] Platelet mean volume (Bld) [Entitic vol] 10.0 fL Normal 6.4-10.8 [facility] Comment on above: Performed By: #### 2 884464, 3803249, 83212659, 20488921, 13116578, 13272434, 4339096, 9129474, 4496946, 4782637 ####[address] [address] Platelets (Bld) [#/Vol] 144.0 E9/L Low 150.0-500.0 [facility] Comment on above: Performed By: #### 2 237697, 1097077, 93299051, 47658870, 48484020, 48504122, 0605812, 4324883, 0030577, 7973373 ####[address] [address] RBC (Bld) [#/Vol] 4.2 E12/L Low 4.3-5.9 [facility] Comment on above: Performed By: #### 2 114667, 4034680, 28537010, 46853499, 97792308, 88821573, 1715014, 0419809, 0773723, 0247380 ####[facility] [address] [place] [address] WBC corrected for nucl RBC Auto (Bld) [#/Vol] 5.3 E9/L Normal 4.0-11.0 [facility] Comment on above: Performed By: #### 2 122367, 8885133, 91833745, 47478007, 43469694, 57042261, 9333282, 1971966, 6495076, 4013965 ####[facility] [address] [place] [address] COVID-19 ([facility])on 02-28-2021 SARS-CoV-2 (COVID-19) RNA MARY+probe Ql (Unsp spec) Not detected Normal Not Detected [facility] Comment on above: Result Comment: This test result should be correlated with clinical presentations and medical history by a healthcare provider to determine its clinical significance. This assay was performed by a reverse transcriptase real-time polymerase chain reaction (rt PCR) method on the [employer] system. This test has been authorized only for the detection of nucleic acid from SARS-CoV-2, not for any other viruses or pathogens. This test has not been FDA cleared or approved. This test has been authorized by FDA under an Emergency Use Authorization (EUA). This test is only authorized for the duration of time the declaration on that circumstances exist justifying the authorization emergency use of in vitro diagnostic tests for detection and/or diagnosis of COVID-19 infection under section 564 (b) (1) of the Act, 21 U.S.C. 360 bbb-3 (b) (1), unless authorization is terminated or revoked sooner. Performed By: #### 2 [id number] #### [facility] [address] [place] [address] SARS-CoV-2 (COVID-19) RNA MARY+probe Ql (Unsp spec) Pass Normal Pass [facility] Comment on above: Performed By: #### 2 [id number] #### [facility] [address] [place] [address] Specimen source Nom (Unsp spec) Nasal Normal [facility] Comment on above: Performed By: #### 2 [id number] #### [facility] [address] [place] [address] Employed in Healthcare NO Normal [facility] Comment on above: Performed By: #### 2 [id number] #### [facility] [address] [place] [address] First Test Unknown Normal [facility] Comment on above: Performed By: #### 2 [id number] #### [facility] [address] [place] [address] Hospitalized? NO Normal [facility] Comment on above: Performed By: #### 2 [id number] #### [facility] [address] [place] [address] ICU NO [facility] Comment on above: Performed By: #### 2 [id number] #### [facility] [address] [place] [address] ? NO Normal [facility] Comment on above: Performed By: #### 2 [id number] #### [facility] [address] [place] [address] Resides in a Congregate Care Setting NO Normal [facility] Comment on above: Performed By: #### 2 [id number] #### [facility] [address] [place] [address] Symptomatic as defined by [facility] YES Normal [facility] Comment on above: Performed By: #### 2 [id number] #### [facility] [address] [place] [address] Consent for Treatmenton 0 Consent for Treatment [id number] .[id number]:127 Normal [facility] D-Dimeron 02-28-2021 Fibrin D-dimer FEU (PPP) [Mass/Vol] 388 [id number] Normal 215-500 [facility] Comment on above: Result Comment: This assay is intended for use as an aid in the diagnosis of DVT or PE. These conditions cannot be excluded with certainty solely on the basis of a D-dimer concentration being within the reference range This D-Dimer assay may be used in conjunction with a non-high clinical pretest probability assessment to exclude deep-vein thrombosis(DVT). For exclusion of venous thrombosis or pulmonary embolism the analyte D-Dimer should not be used as an aid in patients with: Therapeutic dose anticoagulant therapy for >24 hours Fibrinolytic therapy within previous 7 days Trauma or surgery within previous 4 weeks Disseminated malignacies Aortic aneurysm Sepsis, severe infections, pneumonia, severe skin infections Liver cirrhosis Performed By: #### 2 377169, 2412600, 22118015, 70339030, 25840109, 26474871, 5344609, 9804712, 7520239, 3041523 ####[facility] [address] [place] [address] Discharge Instructionson Discharge Instructions [id number] 1.00CD:127 Normal [facility] ED Clinical Summaryon 2020 ED Clinical Summary [place] [id number] ED Clinical Summary Person Information Name: RAJIV TOVAR/[facility] Age: 25 Years : 1995 Sex: Female Language: [place]ican PCP: Alon Weber MD Marital Status: Single Visit Id: Visit Reason: Chest pain; Ear pain; Throat pain - Adult; WEAKNESS, SORE THOART, EAR PAIN , CHEST PAIN Speciality: Acuity: 3 Enc Type: Emergency Med Service: Emergency Arrival: 02/28/2021 09:10:34 Discharge: 02/28/2021 11:16:50 LOS: 000 02:06 Checkin: 02/28/2021 09:10:34 Checkout: 02/28/2021 11:16:50 Dispo Type: Home (Routine DC) EVENTS: Event Name Event Status Request Date/Time Start Date/Time Complete Date/Time Arrive Complete 02/28/2021 09:10:34 02/28/2021 09:10:34 02/28/2021 09:10:34 Document Home Meds Request 02/28/2021 09:10:34 Triage Complete 02/28/2021 09:10:34 02/28/2021 09:24:09 02/28/2021 09:24:09 EKG Complete 02/28/2021 09:13:27 02/28/2021 09:21:56 Bed Assign Complete 02/28/2021 09:13:56 02/28/2021 09:13:56 02/28/2021 09:13:56 Dr Exam Complete 02/28/2021 09:13:56 02/28/2021 09:14:37 02/28/2021 09:14:37 RN Exam Complete 02/28/2021 09:13:56 02/28/2021 09:27:44 02/28/2021 09:27:44 Registration Complete 02/28/2021 09:14:37 02/28/2021 09:31:46 02/28/2021 09:31:46 Pending Labs Request 02/28/2021 09:29:10 Lab Collected 02/28/2021 09:29:10 Meds Admin Complete 02/28/2021 09:29:10 02/28/2021 09:46:15 Patient Care Request 02/28/2021 09:29:10 RT Request 02/28/2021 09:29:10 X-Ray Complete 02/28/2021 09:29:10 02/28/2021 09:46:09 02/28/2021 10:21:50 Reg Complete Request 02/28/2021 09:31:46 Reg Bed Request Complete 02/28/2021 09:31:46 02/28/2021 09:31:46 02/28/2021 09:31:46 Meds Admin Request 02/28/2021 09:39:56 Pending Labs Complete 02/28/2021 09:45:46 02/28/2021 09:45:46 02/28/2021 10:06:05 Lab Complete 02/28/2021 09:45:46 02/28/2021 09:45:46 02/28/2021 10:06:05 Pending Labs Complete 02/28/2021 09:48:54 02/28/2021 09:48:54 02/28/2021 09:49:04 Lab Complete 02/28/2021 09:48:54 02/28/2021 09:48:54 02/28/2021 09:49:04 Wet Read Complete 02/28/2021 10:21:50 02/28/2021 10:24:36 02/28/2021 10:24:36 Discharge Complete 02/28/2021 11:02:20 02/28/2021 11:17:01 02/28/2021 11:17:01 Transfer Complete 02/28/2021 11:17:01 02/28/2021 11:17:01 02/28/2021 11:17:01 ADDRESS: [address] [place] [id number] PHYS DOC NOTES: MEDICAL INFORMATION: Prescriptions Given: Medications to Continue with No Changes Other Medications desvenlafaxine (desvenlafaxine 100 mg Tab-) 1 Tablets By Mouth every day. ondansetron (Zofran ODT 4 mg Tab-Dis) 1 Tablets By Mouth every 8 hours as needed Nausea/Vomiting. Refills: 0. PATIENT EDUCATION INFORMATION: Instructions: COVID-19: How to Protect Yourself and Others - CDC; COVID-19 Frequently Asked Questions; Upper Respiratory Infection, Adult Follow up: With: Address: When: Alon Weber [address] [place] [address], [place] [address] Business (1) In 3 days DIAGNOSIS: Chest pain; Viral URI Normal [facility] ED Note-Physicianon 02-29-20 21 ED Note-Physician Basic Information Time Seen: Laureano Phillip DO 02/28/2021 09:14 Chief Complaint Bady aches since early saturday morning. Chest heaviness, sore throat, bilateral ear pain. Denies any SOB or dyspnea. States no fevers at this time. History of Present Illness 25 female presents to the emergency department with chest heaviness. Patient states that she has had the body aches and some chest heaviness since Saturday morning. She describes chest heaviness sore throat and overall body aches. She is not having any shortness of breath she is never had this before she denies any fevers but has felt warm with chills. Multiple other family members in the house are sick with a similar virus and no one has been tested for COVID-19. Patient is not vaccinated against COVID-19. She denies any chance of stating that she is currently on control. Patient denies any abdominal pain no pain or swelling into her legs no other aggravating or alleviating factors. Patient has 0 CAD risk factors. No other aggravating or relieving factors no other associated symptoms no other prior treatments or complaints. Only risk factor for DVT or PE is control. Family: Reviewed and noncontributory no family history of CAD Social: lives at home denies tobacco use Review of systems negative unless otherwise specified in the HPI. Physical Exam Vitals & Measurements T: 38.6 ?C (Oral) HR: 117(Peripheral) RR: 18 BP: 133/85 SpO2: 99% General: The patient appears well and in no apparent distress. Patient is resting comfortably on cart. Skin: Warm, dry, no pallor noted. Head: Normocephalic, atraumatic Neck: No JVD Eye: PERRLA, EOMI ENT: Moist mucus membranes Cardiovascular: Tachycardic rate with regular rhythm normal peripheral perfusion Respiratory: No respiratory distress no accessory muscle use no obvious audible wheezing Chest Wall: no deformity Musculoskeletal: normal ROM, no deformity, no swelling calves are soft and nontender GI: No obvious distention soft nontender nondistended no guarding rebounding or rigidity Neurological: A&O moves all extremities equal strength and symmetry Psychiatric: Cooperative and appropriate Medical Decision Making Work-up in the ER has been reviewed and noted. D-dimer is negative chest x-ray is benign and the remainder of the work-up is otherwise negative. Patient did undergo COVID-19 testing which is pending. Patient is educated that she likely does have COVID-19 or at least some other viral form of her symptoms. She is educated on this and discharged home educated on quarantine and she has kids at home and I instructed her to quarantine her kids as well we will call her with a positive result if that should occur. She is provided with a note for work and discharged home. Assessment/Plan Chest pain (R07.9: Chest pain, unspecified) Viral URI (J06.9: Acute upper respiratory infection, unspecified) Orders: acetaminophen, 650 mg = 2 tab(s), Tab, Oral, Once, Stop date 02/28/21 9:28:00 EDT, STAT, Start date 02/28/21 9:28:00 EDT, 02/28/21 9:28:00 EDT aspirin, 162 mg = 2 tab(s), Tab-Chew, Oral, Once, Stop date 02/28/21 9:28:00 EDT, STAT, Start date 02/28/21 9:28:00 EDT, 02/28/21 9:28:00 EDT Sodium Chloride 0.9% intravenous solution 1,000 mL, 1,000 mL, IV, 1,000 mL/hr, STAT, Start date 02/28/21 9:39:00 EDT, 1 hour(s), Total volume (mL): 1,000, 60 kg, 1.67, m2 Automated Diff Basic Metabolic Panel Beta hCG Qual CBC w/ Auto Diff COVID-19 ([facility]) D-Dimer ECG 12 Lead Adult ED Cardiac Monitoring eGFR Hepatic Function Panel Lipase Level Oxygen Saturation Oxygen Therapy PT & PTT Saline Lock Insert Troponin 0 Hr. Troponin 3 Hr. Troponin 6 Hr. Troponin 9 Hr. XR Chest Single View Medications Administered Given Sodium Chloride 0.9% IV Ara 1000 mL 1,000 mL, 1000 mL, IV aspirin 81 mg Chew Tab, 162 mg, Oral Tylenol 325 mg Tab, 650 mg, Oral Disposition Plan Discharge Prescription List Prescriptions No active prescription medications Follow-up With When Contact Information Alon Weber In 3 days [address] [facility] [address] [place] [address]- Business (1) Additional Instructions: Patient Education COVID-19: How to Protect Yourself and Others - CDC COVID-19 Frequently Asked Questions Upper Respiratory Infection, Adult Problem List/Past Medical History Ongoing Depression Historical No qualifying data Procedure/Surgical History Laparoscopic cholecystectomy (05/10/2020), EGD (esophagogastroduoden oscopy) gastric outlet reduction (04/29/2020), section (07/23/2019), Ankle, Diagnostic laparoscopy, Nasal cautery, Sinus. Medications Inpatient Sodium Chloride 0.9% IV Ara 1000 mL 1,000 mL, 1000 mL, IV Home desvenlafaxine 100 mg Tab-, 100 mg= 1 tab(s), Oral, Daily Zofran ODT 4 mg Tab-Dis, 4 mg= 1 tab(s), Oral, q8hr, PRN Allergies HYDROcodone (Hives) oxyCODONE (Hives) penicillin (Hives) Social History Alcohol - Denies Alcohol Use, 01/30 (more content not included)... Normal [facility] Comment on above: Result Comment: Elec tronically Signed By: Laureano Phillip DO\.br\Date and Time Signed: 02/28/21 11:03 EDT ED Patient Summaryon 021 ED Patient Summary [address] [address] Patient Discharge Instructions Person Information Name: RAJIV TOVAR Age: 25 Years Arrival Date: 02/28/2021 09:10:34 Discharge Diagnosis: Chest pain; Viral URI Primary Care Physician: Alon Weber MD Provider Information Primary Provider: Laureano Phililp DO Advanced Wharf Builder:None The exam and treatment you received in the Emergency Department were for an urgent problem and are not intended as complete care. It is important that you follow up with a doctor, nurse practitioner, or physician?s medication assistant for ongoing care. If your symptoms become worse or you do not improve as expected and you are unable to reach your usual health care provider, you should return to the Emergency Department. We are available 24 hours a day. RAJIV TOVAR has been given the following list of patient education materials, prescriptions and follow-up instructions: Follow-up Instructions: With: Address: When: Alon Tatelenin [address] [place] [address], [place] [address] Business (1) In 3 days In the event that this physician does not participate in your insurance network, please consult with your insurance company to find a nearby participating provider. Patient Education Materials: COVID-19: How to Protect Yourself and Others - CDC; COVID-19 Frequently Asked Questions; Upper Respiratory Infection, Adult A MESSAGE TO ALL PATIENTS REGARDING OPIOIDS PRESCRIPTION OPIOIDS: WHAT YOU NEED TO KNOW Prescription opioids can be used to help relieve vsewctdt-lx-vjyaoo pain and are often prescribed following a surgery or injury, or for certain health conditions. These medications can be an important part of the treatment but also come with serious risks. It is important to work with your healthcare provider to make sure you are getting the safest, most effective care. WHAT ARE THE RISKS AND SIDE EFFECTS OF OPIOID USE? Prescription opioids carry serious risks of addiction and overdose, especially with prolonged use. An opioid overdose, often marked by slowed breathing, can cause sudden . The use of prescription opioids can have a number of side effects as well, even when taken as directed: ? Tolerance?meaning you might need to take more of the medication for the same pain relief ? Physical dependence?meaning you have symptoms of withdrawal when a medication is stopped ? Increased sensitivity to pain ? Constipation ? Nausea, vomiting, and dry mouth ? Sleepiness and dizziness ? Confusion ? Depression ? Low levels of testosterone that can result in lower sex drive, energy, and strength ? Itching and sweating RISKS ARE GREATER WITH: ? History of drug misuse, substance use disorder, or overdose ? Mental health conditions (such as depression or anxiety) ? Sleep apnea ? Older age (65 years and older) ? Avoid alcohol while taking prescription opioids. Also, unless specifically advised by your health care provider, medications to avoid include: ? Benzodiazepines (such as Xanax or Valium) ? Muscle relaxants (such as Soma or Flexeril) ? Hypnotics (such as Ambien or Lunesta) ? Other prescription opioids KNOW YOUR OPTIONS Talk to your health care provider about ways to manage your pain that don?t involve prescription opioids. Some of these options may actually work better and have fewer risks and side effects. Options may include: ? Pain relievers such as acetaminophen, ibuprofen, and naproxen ? Some medication that are also used for depression or seizures ? Physical therapy and exercise ? Cognitive behavioral therapy, a psychological, goal-directed approach, in which patients learn how to modify physical, behavioral, and emotional triggers of pain and stress. IF YOU ARE PRESCRIBED OPIOIDS FOR PAIN: ? Never take opioids in greater amounts or more often than prescribed. ? Follow up with your primary health care provider. o Work together to create a plan on how to manage your pain. o Talk about ways to help manage your pain that don?t involve prescription opioids. o Talk about any and all concerns and side effects. ? Help prevent misuse and abuse o Never sell or share prescription opioids. o Never use another person?s prescription opioids. ? Store prescription opioids in a secure place and out of reach of others (this may include visitors, children, friends, and family). ? Safely dispose of unused prescription opioids: Find your community drug take-back program or your pharmacy mail-back program, or flush them down the toilet, following guidance from the Food and Drug Administration (www.fda.gov/Drugs/Re sourcesForYou). ? Visit www.cdc.gov/drugoverd ose to learn about the risks of opioids abuse and overdose. ? If you believe you may be struggling with addiction, tell your health tree care foreman and ask for guidance or (more content not included)... Normal [facility] Hep Func Panelon 02-28-2021 ALP [Catalytic activity/Vol] 52 Int._Unit/L Normal 21-98 [facility] Comment on above: Performed By: #### 2 029993, 5296088, 75909593, 62543839, 89252955, 97892934, 9628407, 7773092, 9710728, 0575359 ####[facility] [address] [place] [address] Albumin [Mass/Vol] 4.2 g/dL Normal 3.3-5.0 [facility] Comment on above: Performed By: #### 2 848187, 6670173, 92777807, 17544431, 64081048, 81366745, 5623447, 1121539, 5071312, 6504227 ####[facility] [address] [place] [address] Albumin/Globulin (S) [Mass conc ratio] 1.4 Normal 1.1-2.2 [facility] Comment on above: Performed By: #### 2 957748, 1716627, 31803065, 20900013, 13419537, 02442715, 2888223, 9242676, 2759105, 0905896 ####[place] [place] [address] ALT No additional P-5'-P [Catalytic activity/Vol] 48 Int._Unit/L High 6-46 [facility] Comment on above: Performed By: #### 2 520722, 2346942, 14123011, 55753303, 98081969, 03999757, 2311835, 1344472, 4199367, 9091970 ####[place] [address] [place] 2602857 AST [Catalytic activity/Vol] 39 Int._Unit/L Normal 5-43 [facility] Comment on above: Performed By: #### 2 514300, 9647269, 92810814, 31156850, 56166023, 60109997, 7169587, 9071131, 7213723, 5675954 ####[place] [address] Bilirubin [Mass/Vol] 1.2 mg/dL High 0.0-1.1 [facility] Comment on above: Performed By: #### 2 950106, 3176935, 51513894, 14725792, 83081425, 35961091, 2586533, 7569933, 6927599, 0100978 ####[address] [address] Bilirubin.direct [Mass/Vol] 0.2 mg/dL Normal 0.1-0.4 [facility] Comment on above: Performed By: #### 2 138605, 7421024, 91052475, 10156880, 38708965, 90478810, 3574437, 1204406, 9047442, 2716998 ####[place] [address] [place] [address] Bilirubin.indirect [Mass or moles/Vol] 1.0 mg/dL High 0.1-0.9 [facility] Comment on above: Performed By: #### 2 463108, 4162968, 91957197, 58317344, 41658042, 32587749, 9600567, 2943738, 4810620, 7905373 ####[facility] [address] [place] [address] Globulin (S) [Mass/Vol] 2.9 g/dL Normal 1.4-4.0 [facility] Comment on above: Performed By: #### 2 [id number], 4912406, 96670038, 71695530, 23488016, 14133996, 0776805, 7212342, 0218601, 0406895 ####[facility] [address] [place] [address] Protein [Mass/Vol] 7.1 g/dL Normal 6.0-7.8 [facility] Comment on above: Performed By: #### 2 666902, 6937133, 21325893, 20731400, 36913773, 65376419, 3720192, 2024284, 8722561, 8195638 ####[facility] [address] [place] [address] Lipase Levelon 02-28-2021 Lipase [Catalytic activity/Vol] 33 U/L Normal 13-58 [facility] Comment on above: Performed By: #### 2 149696, 1914771, 35469689, 63464161, 31940161, 64877834, 4926185, 8522574, 0922883, 7972445 ####[address] [place] [address] PT & PTTon 02-28-2021 aPTT Coag (PPP) [Time] 31.5 second(s) Normal 25.1-36.5 [facility] Comment on above: Result Comment: Hepa rin therapeutic range (represented by Anti-Factor Xa activity of 0.2 - 0.4 U/mL) corresponds to PTT of 56.6 - 109.0 sec. Performed By: #### 2 663639, 4663700, 40272938, 07259823, 96497066, 87548390, 2817353, 8599245, 8283750, 2694456 ####[facility] [address] [place] [address] INR Coag (PPP) [Relative time] 1.1 {INR} Invalid Interpretation Code [facility] Comment on above: Result Comment: INR results are specifically intended to assess patients stabilized on long-term Anticoagulation therapy suggested INR?s ?Less Intensive Anticoagulation? 2.0 ? 3.0 Conventional Range 3.0 ? 4.5 Performed By: #### 2 683187, 7953597, 75631748, 31453549, 79801756, 89485641, 2661152, 7657029, 0038615, 1066658 ####[facility] [address] [place] [address] PT Coag (PPP) [Time] 13.1 second(s) High 10.2-12.9 [facility] Comment on above: Performed By: #### 2 171464, 1864637, 11269730, 16430990, 29442743, 30913016, 8353991, 5152367, 8306158, 2400711 ####[facility] [address] [place] [address] Prescriptions/Work Noteson 0 02-28-2021 Prescriptions/Work Notes [id number]# 1.00CD:127 Normal [facility] Troponin 0 Hr.on 02-28-2021 Troponin I.cardiac [Mass/Vol] ng/mL Low 10.10-27.10 [facility] Comment on above: Result Comment: The 95% CI (Confidence Interval) PPV (Positive Predictive Value) for myocardial infarction in females is 38 pg/mL, in males 51 pg/mL. The results should be used in conjunction with clinical conditions of myocardial infarction. (Access High Sensitivity Troponin I Instructions For Use, Yenifer Marion, January 2018) Performed By: #### 2 698628, 5610239, 75886969, 74126378, 80791784, 62051862, 7628866, 0531647, 6328278, 6940260 ####[facility] [address] [place] [address] XR Chest Single Viewon 02-28 XR Chest Single View Exam Date/Time: 02/28/2021 10:21 EDT Reason for Exam: Chest pain Report IMPRESSION: No acute radiographic abnormality. EXAMINATION: XR Chest Single View Clinical History: Chest pain. Comparison: None RESULT: No consolidation. No pleural effusion. No pneumothorax. Normal pulmonary vascular pattern. Normal cardiomediastinal silhouette. No acute osseous findings. FINAL REPORT Dictated: 02/28/2021 11:01 am Tereso Granger MD Signed (Electronic Signature): 02/28/2021 11:01 am Signed by: Tereso Granger MD Transcribed by: OLGA Technologist: Eusebio [facility] eGFRon 02-28-2021 GFR/1.73 sq M.predicted among blacks MDRD (S/P/Bld) [Vol rate/Area] mL/min/{1.73_m2} Normal >=59 [facility] Comment on above: Order Comment: Order added by Discern Expert. Result Comment: eGFR is race adjusted. AA=. Performed By: #### 2 507228, 9092071, 69007374, 65502750, 47533647, 42109859, 9059336, 2698140, 8891026, 4507565 ####[facility] [address] [place] [address] GFR/1.73 sq M.predicted among non-blacks MDRD (S/P/Bld) [Vol rate/Area] mL/min/{1.73_m2} Normal >=59 [facility] Comment on above: Order Comment: Order added by Discern Expert. Result Comment: Supervisor Instrument Repair bib kidney disease could be indicated at eGFR's of less than 60 mL/min/1.73m2. Kidney failure is indicated at less than 15 mL/min/1.73m2. Performed By: #### 2 814574, 8986918, 12830472, 92038212, 28591711, 55445172, 6237522, 2443712, 1855138, 2809486 ####[facility] [address] [place] [address] C Urineon 02-01-2021 Bacteria identified Cx Nom (U) Microbiology PROCEDURE: Urine Culture [R1] SOURCE: Urine BODY SITE: COLLECTED DATE/TIME: 01/30/2021 22:56 EDT RECEIVED DATE/TIME: 01/30/2021 23:58 EDT START DATE/TIME: 01/30/2021 23:58 EDT FREE TEXT SOURCE: Joshua Hollingsworth DO, DO, Joshua Egan FINAL REPORTS Final Report [] Verified Date/Time: 02/01/2021 11:28 EDT >100,000 cfu/ml Escherichia coli SUSCEPTIBILITY RESULTS LEGEND: S=Susceptible, N/R=Not Reported, Blank=Data not available, or drug not advisable or tested, I=Intermediate, ESBL=Extended spectrum beta-lactamase, R=Resistant, TFG=Thymidine-depende nt strain, PEREZ=Beta-lactamase positive, LAXMI=mcg/m;(mg/L), S*=Predicted susceptible interp, R*=Predicted resistant interp EC Antibiotic LAXMI Dilutn LAXMI Interp Amikacin <=16 S Ampicillin <=8 S Ampicillin/ <=8/4 S Sulbactam Aztreonam <=4 S Cefazolin <=2 S Cefepime <=2 S Cefoxitin <=8 S Ceftazidime <=1 S Ceftazidime/ <=8 S Avibactam Ceftriaxone <=1 S Ciprofloxacin <=1 S Ertapenem <=0.5 S Gentamicin <=4 S Levofloxacin <=2 S Meropenem <=1 S Nitrofurantoin <=32 S Piperacillin/ <=16 S Tazobactam Tetracycline <=4 S Tigecycline <=2 S Tobramycin <=4 S Trimethoprim/ <=2/38 S Sulfa Performing Locations R1: This test was performed at: [facility], [address] [place] [address], [address] , , [facility] Comment on above: Performed By: #### 1 [id number], [id number] ####[address] [address] Coding Summary.on 02-01-2021 Coding Summary. [id number] G h0bWw+PGhlYWQ+VS5JROZ iY42peXVsiU7SC3mFCR1F YTYDAWNKZW9ADO4yuHZ5S FcmZ3LneiMo GletgSZyQR95VAh1RSH6q ZkpBUqrrB0bpWZtL0s3Lr SkOW76tT18PLapHSMiWtG 3LjZpbjsgbWFy X9ceFkDkvFSxVki+PHRhY mxlIHdpZHRoPScxMDAlJy JdxAvdOV3oSf2eCRIbUSZ vbGxhcHNlOiBj h4duTOVzZYxvGV9rqZtbC 9UbbSS3MHFjx4o5Ja68zI I+VJCrUAN6tGmlHVwuc06 0UeUxk7qjQKZ1 yYGvTQeaGTB6R62hs8W4Y AEoGMYbLAJ6rPJ9kR7ngJ grkcuzG1ZkoLKyViE3RIV 9qFTmdL2pfMrg wacvpO0wBhm+W88ZVR2MU CTZZL3IAmi0K3YkYxbrqD I+XU02NKZxBZ34fPOstXT ku6qreKb4BwOv MQRxQPX3xDxrEFvxm6MtI AQuE20akUZeg1H4HOWpaX pzjIHyFhDvsCK2qA9pBZd wmzdkq2ckggia Dfafn9jlqw45nM03H95kY AweQIFyLLP2WLKhYNPoaN bwjw3ytK5fWh1+UDyuy6w fo7uhhMn6CcYz RMOrjeUdoXybANA0u8DtV h10P9YslPkkf3RrTdm6zs 98tGTmv7I2gRP5SUprZKM wuL7sTBsdYbQ5 YDPmTyUuhZ04uMCsZCjxY n1kiGqsdPefAU1xEGKhvv ztEJZlzT9tEPMreLNmfVr vBT2kYKGuoujh d692DmUxOBI8LZLqlUQdZ 4IlaL0eChEwBFVpXGZiZ0 NceJMdZDfgP388YIrwYuP 7REEldzDiA1Ih IKYxkAqrQqQ2w8M9Uw3Ri 4VmphczMKU8AVqgXBV9Pi XhItQgUuX9Z3XfZru1AUS jcNigVQ7mU9Zt ZWFmfvkxxoiueFY2ZELtX AKmwD03nFLwCXbvAc1bs2 J2n426ITYjRAQhbN23Pu6 udDogMTBwdCBU aX1bwdboh9lcysogPnDuN UPwMOy4OBu7HUEnvFaaWg ShUXH6SyC7MRY1pIAzlK1 xrHboensckJ3x Oyc+J68caH9lMBX3PFV3z jskQTOaxkMjLI81US26L9 RyPjwvdGFibGU+PGRpdiB bnEhlMR6kDyYw n5pvs9QtJPzxO0AeOHIaO EbqWzt7SFLsXPS5lTM0lJ 4gTJGwNKxfu0P0yGU8D4X edrCvwt8td4nb OBFpIJfeZ11ebCKhw6N8C TKsmBR4UWOilBcwZhOtxF 93Oyc+FEVguNbdu6QtJrq py9joz3hccBe1 InQaMDVgliGxvQqcUZO6x 7XgEd95S69iJCncLMTtJD FlBZEoDJXwkFxmdt4ypY0 wIi8+PGNvbCB3 pCG4lC9nBRYnVhS2DDexC 448LdVinYBgFngwl0pwg3 cebZj7XgXyCBPfzqFvgUe iUGG1g5QrMh07 I70zOGkpECPhGTTmHWXbL JBhyChhdw0elR4jDd0+PC 1xo7cxsh45vX09kEU+PHR lYSJ3jYfrKLjk FJRjgW3pGMflDwO0GXUhB hNvjK78iSDtPHitNa4ykU tnuVuoIN4kTCIxqbrjx30 1SkAbc0tbTOMr qHQhMScpGYZ7L55ts9Z3L FQzWSEyDCV1gHO6uH5amI lnbjogbGVmdDsgdmVydGl gBAwzNOpuR835 IHRvcDsnPlBhdGllbnQgT sDjXWe4Y2QwDgh5IWDaaH yyVP3awGItVIbeTq9ueVq yaJqkYW6xUJMh uebwu578MoZch2bfEQMtm AKgQBsaITT0T67aa0L1IP NxGFFaTCQ9bYO6vV3mgWr nbjogbGVmdDsg tdYheXzmYHyoEWlcO256Q HRvcDsnPkJpcnRoIERhdG K5WB40KJ18cTQou4U7zZH 6G8CjPBCuvhtg hjgswXL5TZEnRQZqqH51F h6toUvjBl0mTASrXVV5LW TjtYHtF6FsaQ7sXdFtKBQ vRYDeK7FmfTPf QQcqU044XWtqFoZ0DVQkh nXvR5JmJSLadRftGaJ4j8 Q9Cf0VA3L7RO91MX90hFJ ul1U1mBF8N3Ry QHIbqbhttcfxaNZ3OELlA LFaiU97Zz4pzKaeCk3sXF LiIFD9CFAuuBKzA3ZuuD8 yOiAjMDAwMDAw S2OapEWmAVazP197IUpzY yT9YQRyrtExQ6WvRHBajB hxCnB5i5E2He1AEAw9DX2 2SQ10oZFww2V4 yVH1L9IkZZLczjdrugwnn LN8TXYxIXNlpH47Bz2cqS kmSk4kHQObSHZ8MPThaIA uL4OiwA8wDnQf VYKhXCFoC1LoqABqLIupK 541UAmqZrT9AFBlynCtE1 AvDTOecMrfDzZ0y1M1Ht0 XISAmIJ47VXB5 xWG7PA21IJ19G2CrIlrye GFibGU+PHRhYmxlIHdpZH RoPScxMDAlJyBzdHlsZT0 bXh5tONHnRGJn iRmyfYVzErUpo0hhQBYgQ FapPY8jiRmqA9GvoGT3DX Tkf8u7Fv81V54rS5DctZN +UCWaiWF8kZE5 yE7gYmEbVmX9SUxlT284T gHbnLEyBgmgv8tdk6essE b9GwV8ZCJnorYloDjiAWN 8s3OsJf06B61v IHdpZHRoPSIxNSUiIHZhb Srljg0szC1bBx9+PGNvbC A9vPV9gJ4nYsUbGkG5CQg jQ085YtYmcUEj Oojlx7zbn0nfyOt0EnZmH TKfoxNvlDkiUCN0a8AfBd 79Q2HoaZvtu5VfJxa8ei9 4wLEjq7O7uSE4 Q8QlGUNebgyrqOWvoIdjB S4hUZEnptidXNNxhU5nJI CaN9t3KgZwWhB7LFjfE3I wcpB2KQZeqCUq LAdxTFF1G66nf2W2JOKaT LTpEEU5sSV0iW0nyHspzu ogbGVmdDsgdmVydGljYWw lOPetJ317UAHd uThhPKPrlB7cMVKdhBXpi CgsOT3hKSCynmtfZqXPFL FERLFXVFmMR8D2W4AxBsn 8PXIkgBrgAM4e pGFlSHmwKb9wbMuzdIytF Q0fEVQysvrrEIDdiL4wEL RzgWGgeFicJF0iFZEhqyc bz907EmCiSNS2 LLRxvERcD9BjbM8nAaHjG ZRyVZGqP1XbdJNlODluP9 03RUgwBzY4WSTaoyJiD7Z sLWFsaWduOiB0 k0I7Gd5cGU5gHt6dHLmtD J52RX25hOFwg3K6dNN5C5 AgKUVsoaqglkcclDR7UGT fDPFgxQ55iSNg PSlsBx9ow7J1h736LKBdT XElbP20Uc9vsZktOJOdkD IOdQ1qdmwzg5aqmbinCiD ePCErIUi3GRu1 OOElqVnpQaOvIWI7PxU0N MK5kTNlsE9ldIylwjesvU 9wOyc+GafyWYXwlrE5M1W nQiz7FLGreHsw FT9upPDfEWbiKf2hlJkzk UlpSV4cAARegndxCWPqxB 6hJZRyyRKuxXyvTG0lSIA vgjvcl006WhBn ETM6LLJsxBXyK8AihC4xL hZzUAEtWIDtX9NlbLXgGA mqO244VTntBuW5PMHzmmI rU6RzELWcrSyk TrL7r8M6Uu9XLA3vaGH1I 1EbKix3WMBygZmvCJ4vsM YuBKklNs1qqGbfxRgkOT3 wNTBpbjtwYWRk iG7vEAYlvCKfmBhyML3iC PEoogvfi150UwXeNQU9BE TbmKYbP2DltW1wWgTpSGM vAEDdR1InjMVe SPqbK979IDthGlF0EHWmj lLxQ9DhGKIimZukGaX3m4 A4Zj2LsIEjD7OqJ6q6V9Z kPjwvdHI+PC90 SKFjUD92nQSmiNNit3hxn Ax8JwDzCDIzCDX9qMqyLE rbd2MzCTRvV24gsZAsk0E 6IGNvbGxhcHNl NhQgwDB9vM4iXLggwrcgt 7xupghcTcusl8lqsq55oG 34E98rSOunHWVhKFWdIPJ bWJVhpGofey8x qN6nVl3+DSGbjQY3bWH4g V6oLqSzLtJ2EDvqK612Ux CkoHNyKdkbt8jpm8jvhAh 9IjIwJSIgdmFs lRxbLUU1d7RoAq54H35iV HdpZHRoPSIyMCUiIHZhbG wosu3oeS0tJt6+GB2qm0x yzo27uE54xNN+ DJAfMWU1tKrpVOvqJIUav Q0aBDirQuE3NRPsNzSfpI 97lFVyOZpfGv6roFguiLa eLS3kHWBycsno z371SuKkl9jfBBMuePUiY DdcCWU3H83qc9R1OGQpZG EpUXT3bAT3yC7wePymjbf gbGVmdDsgdmVy zAuvJQtwUYblC290IZXbs RpnAgHknLWcR1hswkSMUX 1lOjwvdGQ+TKAeISJ0kZn gCRchHQIgiI9s IGZnU6k3ExDdMxO2GDykB 6OmrrX4ASSmjCIlQPIioE VVzZ4tigwuv7uodeheNqR yIEUqZVu6TSp9 NNZajDfkUmEuEWV3ZhD0V ER0mAOlsY8dkQszrjwchQ 9wOyc+RklOOjwvdGQ+PHR yMBW6rWrhLJbj ZFObuV0hHUNeA5e3AzPsV fO3FTikF0YwifS7LOHfcO EgUOEciXQLkC8dxzitr4u vcjogIzAwMDAw FFo4URo0VSXweUhcIoZdL SZ7IbT1OSB7iTEifY4dcU renhksfL7jEzf+TVJOOjw vdGQ+PHRkIHN0 pCqeGHglCPVzfS6aKCZvA 8i5HiEjLfY2DXmbZ4Bqqt K3ZVYmwNTfISQqzHWPvM7 hjsaze9gfrofe JkEeBXOfVVi5OSo3SGBye ZpdAiQqPZR6UeT7PRN6qN IdmE4nkYpqbidixN8yFla +TGG4MOU5WX75 QZ35L3RwKweziQPxqHA+P HRhYmxlIHdpZHRoPScxMD HgTdKshHayRH2uWj6jNGL yLWNvbGxhcHNl OiBj (more content not included)... Normal [facility] B hCG Qualon 01-31-2021 Beta hCG Ql Negative Normal [facility] Comment on above: Performed By: #### 2 605889, 0920644, 4894872, 87873107, 8542919, 45705666, 1812560 ####[address] [place] [address] Discharge Instructionson Discharge Instructions [id number]# 1.00CD:127 Normal [facility] ED Clinical Summaryon 2020 ED Clinical Summary [place] [id number] ED Clinical Summary Person Information Name: RAJIV TOVAR/[facility] Age: 25 Years : 1995 Sex: Female Language: [place] PCP: Alon Weber MD Marital Status: Single Visit Id: Visit Reason: Nausea and vomiting; Abdominal pain; Flank pain; RT SIDE PAIN Speciality: Acuity: 3 Enc Type: Emergency Med Service: Emergency Arrival: 01/30/2021 20:17:08 Discharge: 01/30/2021 23:43:41 LOS: 000 03:26 Checkin: 01/30/2021 20:17:08 Checkout: 01/30/2021 23:43:41 Dispo Type: Home (Routine DC) EVENTS: Event Name Event Status Request Date/Time Start Date/Time Complete Date/Time Arrive Complete 01/30/2021 20:17:08 01/30/2021 20:17:08 01/30/2021 20:17:08 Document Home Meds Request 01/30/2021 20:17:08 Triage Complete 01/30/2021 20:17:08 01/30/2021 20:23:13 01/30/2021 20:23:13 Bed Assign Complete 01/30/2021 20:23:22 01/30/2021 20:23:22 01/30/2021 20:23:22 Dr Exam Complete 01/30/2021 20:23:22 01/30/2021 20:23:49 01/30/2021 20:23:49 RN Exam Complete 01/30/2021 20:23:22 01/30/2021 20:29:09 01/30/2021 20:29:09 Registration Complete 01/30/2021 20:23:49 01/30/2021 20:25:40 01/30/2021 20:25:40 Reg Complete Request 01/30/2021 20:25:40 Reg Bed Request Complete 01/30/2021 20:25:40 01/30/2021 20:25:40 01/30/2021 20:25:40 Dr Exam Complete 01/30/2021 20:51:04 01/30/2021 20:51:04 01/30/2021 20:51:04 Registration Complete 01/30/2021 20:51:04 01/30/2021 21:29:35 01/30/2021 21:29:35 Meds Admin Complete 01/30/2021 21:19:02 01/30/2021 21:32:46 Pending Labs Complete 01/30/2021 21:19:02 01/30/2021 23:16:22 Lab Complete 01/30/2021 21:19:02 01/30/2021 23:16:22 Urine Collect Complete 01/30/2021 21:19:02 01/30/2021 23:16:22 Pending Labs Complete 01/30/2021 21:28:58 01/30/2021 21:28:58 01/30/2021 21:49:30 Lab Complete 01/30/2021 21:28:58 01/30/2021 21:28:58 01/30/2021 21:49:30 Pending Labs Complete 01/30/2021 21:53:12 01/30/2021 21:53:12 01/30/2021 21:53:19 Lab Complete 01/30/2021 21:53:12 01/30/2021 21:53:12 01/30/2021 21:53:19 Pending Labs Collected 01/30/2021 23:02:56 01/30/2021 23:02:56 Lab Collected 01/30/2021 23:02:56 01/30/2021 23:02:56 Discharge Complete 01/30/2021 23:34:43 01/30/2021 23:43:48 01/30/2021 23:43:48 Meds Admin Complete 01/30/2021 23:35:39 01/30/2021 23:41:22 Transfer Complete 01/30/2021 23:43:48 01/30/2021 23:43:48 01/30/2021 23:43:48 ADDRESS: [address] [place] [phone] PHYS DOC NOTES: MEDICAL INFORMATION: Prescriptions Given: New Medications [facility]/pharmacy #[id number], [address], [place] [id number], [phone] cephalexin (Keflex 500 mg Cap) 1 Capsules By Mouth every 12 hours for 7 Days. Refills: 0. ondansetron (Zofran ODT 4 mg Tab-Dis) 1 Tablets By Mouth every 8 hours as needed Nausea/Vomiting. Refills: 0. Medications to Continue with No Changes Other Medications desvenlafaxine (desvenlafaxine 100 mg Tab-) 1 Tablets By Mouth every day. PATIENT EDUCATION INFORMATION: Instructions: Urinary Tract Infection, Adult Follow up: With: Address: When: Alon Weber [address] [place] [address], [place] [address] Business (1) In 3 days 02/02/2021 DIAGNOSIS: Acute UTI Normal [facility] ED Note-Physicianon 02-01-20 ED Note-Physician CD:[id number]:[id number] 2 6XC30pTgjpbYnb6bljc9i KN1zYeVoqxAxZBskRn7ol 0ydLS45cm2pCxDfKw4+Cj kjRW1FSDpWCBKc oW7hNSPGWhzFHvPgGN6zY sDOBf7UBTEzOVfICKctSB 8gOAS6puckzT2pAD9dQJP ceVKmSc8rf9k5 CihwAn7dIs8ZWa17zPWco VCaASYUK0qvkO2qNI6dgU YfP3FaLMNqNm5ITOl8xHd pkD6cfrG9Upv9 jLU3Tk85x5nqgyKng6StF fO4WTjpsVq4zWijIIhdwI 6eBuOwEIMTmF0usLoaXW8 dwS5ovbSalKyb biI+LxrtZZMqTqq2mGOtM H78I4ZgkBhjUxs9hHZ1UT JryNIyOPObsZt3VHQWGHQ BLUNvbXBhdGli dSDvFQSpesEirnT2VxmZH YDqIiYiFsp3F1ukOFU+Cj uza0S7Unq9DMe1NBN3yFm mTVInr366SGPp pVdykPaimCGlk43rAMDas XKtTyAfl751WSFwdgW9EU gtdPcxBdz1iNKwcRTcx9g kbVp5PtBrOIPj ZbeWRYUmaRnwk4QkKtmKF Zwwn9jerjDaoIipDJD2s9 UyGGgrMWLzAEN9ZjZcJW2 +CgkJPGNvbCB2 TDxsW642DiDsjBVdf0iwy Tj5WmS3GSGaTx7NXArtL2 7sN7VdxNN+Pbw4hXNsFDt +CgkJPHRyPgoJ IHl2bAQus6Q9lFQ9LtZin yJgr2s9WDvxQVV3VsD2TP G6nEQukI3psJlejffxyF2 wOyI+CgkJCTxk wXJjQ1xkg4D7YkYwu2Ofw QadxmQhBLXvHlAke0hjTt otYTItdI9cJVU3PyMbSCQ leHQiIGlkPSJf RaAfLVTfKiQlSUSyRz35O rLdKBx5LBrhEheuZXZ0Ut YqIjYvInLbvSfaLC9lyDY kZGluZzogNHB4 OyI+OXEsIO3rT6wvr6E9X gZhf9GroBogoxShp9CqDT fhGieuuTZySVH0wQaoNMF df927SUafwAma cHwwSp5tUFkofMP3nY0nX LJsilN8tL1dUtB1elSosp smfyY6Vf8QXXDkWhBLmjB xal8lyLxvbcul t3Gnbl40Q1WrQN1+CgkJC QsqaOHnR5adv8P2QpLjq4 Sng46gnpT0NQ1xcMO3CAK qPADiIzVjo7mz YmxlIGRkZnJlZXRleHQiI DEcHkQ6jiEtu8K5qF5ul7 O7kHH8RmGseM2viFtakXC wDGW4jOQplJjo aTChC1qwOTSJZ2fkC38MC VUDLXYWDJPgFLl3SDxwNi QiIGlkPSJfYTMyMjFhZGU qBBYsGY20VpWg JUCjCXTkLlR2XHLiWdO2R SA5Wg70e5KbpzUfbWozWS 5lhRYwJ4pcXdLhuNLdXXj aRnBmSJHyyH5u NnWxjMZ5NNAeoFOiPHhdB 570DRjaDcI0ZWAfbS6oZe MyT9CaBZoyIIbyTSp6CND tnlLth0W1hUW2 XB8qnj0bnSsrGb8cfB60B KxhlZP4NF2xaj6ixGoawK L8qY2cUJDjkhU2tL3mJoI ue05bGwV+JiN4 PMD5Nf0eqFQwxCirjOssQ uTpFSIaWHL8ZBhqXBOnOB 3iD1tpPCc6L2FvVP6+PGJ yIC8+CgkJCSYj tNOqUwcpGNr4DfoSPJoUJ VStvhCacTBwhm7dDEHufh FesVS4pHHqBVXmoZ53KBK lBAVyEMW2JySx FrudSRWvxcfgpYalWV5zp Q8yTRPwN1y8NyRwZC8fJy tyWuJ3FKoeYSc2YTacCXv bIB56HWp9RPXs OBQ2KkBzJeGjHbYvg4S7b YB8DnXfs6FjHNz9TL9paz X3Yc96S0Gwpr0GAQcLBV0 kaXY+CgoJCQk8 LMi1TLHhUBVkLHZiEEWnW 5Cbn43fAHYyJEQlYCKpDK NgUANuTVjvs0LtkGZlWUS 3FAh6TDKjctLu o0OlWkkwIbQfYTdjIOX3o O9rZ72oWB5aOE5LOrYqUU GwATDoDxUblPN3Sg03MpO 9SRF6AJ34ZcNk KWJ8HUhrCVk0Wy2oEXPtX rIhVOK5JQluZQP3tBzsHW PpUQHpaJ9sJuN3vSj7Ya8 3w9UntkBzgPLx rl3dTLTcOXV0zE9bYVhbk GxheSI+MDDeUR2bt5U9fV N8EfJdqyGdw3UgX6j5SbX da2jyNcG6UWi4 GYHlH02zBBYxp937HYCkU GVybGluZTsiPkNoaWVmIE DjvVWkVLwkaAbqk0Qser8 8U1PxFW3+CgoJ IKk8RDa4LMGgJGJgJHPwQ GVtcmNvbnRlbnQiIGRkOm NzpgNjexM8eFQcOXLIZUK JULWSS97NBWZn TDPdHaZqMdXoPA7nRQQ6e XV1HzIWSdHxDGs8CRLhXO MmEHDXSe6VUEYmIRNAWZQ LGER8ZDVWLVCr pRT9Cu54LeRrAygxMk0uH KUrYGLvWcDiDjmrZt9sYC q6HSXcQImfTwWpSmvFODk 3PEg2UYSxOOFx PSJkZGVtcmNvbnRlbnRpd VJrOLWxyeZpl7DnTiuzMm SfPWqmk558DA71qSdjLB1 xTKCBF4GGID6V RUFTIiBkZDplbnRpdHlpZ H2pGBt5RMB5IPElPbKnoE F3Fj9rABLaHnvoCf5fTPB hLTRkMWMtYjNl Kj35OAF0NLc7PGI4MichI PdbxN3nQpZxIDWGrC5gpZ sfQN8beF9eaiDarYkcwsK +cHQgYXJyaXZl xqAfb1NagnrdpAXpe4vbB LPoHQIcODKzlW8hiOvlvF IstZRggNGleW4xrDxlTJA tPU2lUTNtBV0l R21btbX3neT3yXTagxnds RVqGVO5OFniGXBluKirWF FtANMuXMQrnqFpc6VbGDx tGC4sAVgxaaTc gLLjHsSdxtQwvL3uYMW4f 2JgSnmkAKf4WlxQFLn2G7 Cdej1RFIbTZS8upXY+Cgo HZZa9WAp8IHWg NLHsVQCfOHApW6Ihz50dN GRyZWZyZXNoYWJsZSBkZG exs5NoeSYeKRC9HYm5ZZR mthXzj4KaRyzj RuNnFHpqABK7qT4qV10uE C1mGJ9MGrBuPVKdFkYvGz YlmFG2Ea0bM0TaLJY8US2 jIkPbWBB5HaFs SKo1Ai2zPUB2FmQ9BGqoC GYsQSV4oTreYQEzZSUrvZ 2wPiY8bIy2Tx99a9VslfT xwUClcm7dBGKr LGA6fH1gIYdleYtsvHC+P ERgVZ9ki7M0fRL8IiMdwb Pwa8IyJ9r2MmXim0rrRiR 9HRk9TLPtP64q ZPMoe187XLPxAMGryLuyT NmwFzcxz1Ipcaesf5PjCW Drp4VkxLMPfQqgLVAxFA1 axUUaUymui0Vx fu6IZsgCBSteuMFyI9plr 6F5EjJoNG5jC14goGSkfQ VxMPG6P09qT9GzcD0vLYN KAiXtYClxa994 MF29fYraCX5fEY3ZZ0PGX ETdRDIkGnCtKlXgYL9nJL P0eIK8BuPeQvQoBbH2ICD 9IPIwBAULZk02 XuyMKNNFPkY8A8F4E6P5D ECgmRA0Qw3eUHH5SftrQH 14BORmCOFsQXXyMWUbAA7 7SKJxWPH9SFV6 PLgfUpgXGAn2AXl7FHTiC XNzPSJkZGVtcmNvbnRlbn RunMUvDzMvSMaoo045TU3 3bHioLF4qIBXJ Y1VNPW6IRIQHQcVjHBsdq vKgfMffJE5jEKZsQHO6UM 00aQG6xnJxi5txbc4wAWW lnHZ8Np17SBQd CfalKU7aLnctQJR2NGzbA AU6Bs47IES0LOSnHDVdYT IxUhsCSBa5MGx5RJCkVSB zPSJkZGNvbXBv onGmpWGtGUQ9UM67aNL5p OP3cCZ7gVH7OhWra7UmhI SnxGAdpUY7Va45J8C4Ayd xVQ2sE9LnFKCm AuksLbY4Cu30SWOzBmBrG YQ2A6HrEnnGJTb7EPv6YM VoULLsZNPwRZTcMCD3YDq 8SGAmtbEjk5Iv IszjKcBrVJeflK3rtM8to KvwG8Y9eTsyMDS1g3Okvp lnaHQiIGlkPSJfMjlkMjM 7OBNcVSJlBR34 Tzl4OBGvNmKrKRv8ALn9G hR0MnD3Cf5ELYawh3DjD4 pmTwWngKCrDALdHfF5RLN aWO8aNLRnKN5j lZJqd5l8yYLJOKvxs9Fuw 4YkyfujxuWepIH7rpVsqz TcXQ00zgQ2kKGySLHgjKQ dxyNswSR2j8F1 FL9jCUwkuZFcdSa1oRSej OWysJTdR8VhMA6eP5OgGD 7gsI3yqFYfZNikFYRbEYT lY9MvLJPsHH6l OPIzrR1uzH2lUZXuMXUlh gM2gXZeuWSgwWqsMAJxD0 JpYmVkIGFzIHNoYXJwLCB ahtRyg8CkFFAw g40yoIr3YYQjBZeeiQIzY DYgSLkin3ujYSCdMZZ4AM pkOdjgWF8hMXlqs6DrMPI oA6zkWRW8qzDn bnRseSByYXRlZCBhdCBhI VczOSAfZN5oUKxfftZ0j7 ztyjIzTXOaxLGkkU7rpNt aGQPyi1HgRGCx cZ7vn6V6IW5fLQJlt7JuV YEjCSO1qGAmTH9uuo9yXU RdbSHhSKB6f2PlbUJzTT9 cTPKdULO2PF9r zHcbXsT5EKKbNV3xa9NgY QnrtUV6zOLmWQ7eFYHgRG 3in1B6hQF3LuIkFLJswtf poA8yQgUjgWt6 CBRxDJSxfzgiPl97qB4lO qTdnGf7AZ5ebolpea71b2 G1QJElzNfmgJPpY4kyLTO vdHRvbTogMHB4 OyI+Hp9yjEhgiF9ngJFmS rNviINsRGscz9FqnpRpKe oyk3Pyew2qB2nvFBb1c1I oieHwiMipTP8f mLRfCWylJe58d0B4VCLyb RffoPHiJYkfJg2jw7A7q6 35AZMkzHjmyTHhA0ptANJ cuNvdCHW5UdNz Y (more content not included)... Normal [facility] Comment on above: Result Comment: Elec tronically Signed By: Joshua Hollingsworth DO\.br\Date and Time Signed: 01/30/21 23:39 EDT ED Patient Education Noteon 01-31-2021 ED Patient Education Note Obstetrics and Gynecology Urinary Tract Infection, Adult A urinary tract infection (UTI) is an infection of any part of the urinary tract. The urinary tract includes the kidneys, ureters, bladder, and urethra. These organs make, store, and get rid of urine in the body. Your health care provider may use other names to describe the infection. An upper UTI affects the ureters and kidneys (pyelonephritis). A lower UTI affects the bladder (cystitis) and urethra (urethritis). What are the causes? Most urinary tract infections are caused by bacteria in your genital area, around the entrance to your urinary tract (urethra). These bacteria grow and cause inflammation of your urinary tract. What increases the risk? You are more likely to develop this condition if: ? You have a urinary catheter that stays in place (indwelling). ? You are not able to control when you urinate or have a bowel movement (you have incontinence). ? You are female and you: ? Use a spermicide or diaphragm for control. ? Have low estrogen levels. ? Are . ? You have certain genes that increase your risk (genetics). ? You are sexually active. ? You take antibiotic medicines. ? You have a condition that causes your flow of urine to slow down, such as: ? An enlarged prostate, if you are male. ? Blockage in your urethra (stricture). ? A kidney stone. ? A nerve condition that affects your bladder control (neurogenic bladder). ? Not getting enough to drink, or not urinating often. ? You have certain medical conditions, such as: ? Diabetes. ? A weak disease-fighting system (immunesystem). ? Sickle cell disease. ? Gout. ? Spinal cord injury. What are the signs or symptoms? Symptoms of this condition include: ? Needing to urinate right away (urgently). ? Frequent urination or passing small amounts of urine frequently. ? Pain or burning with urination. ? Blood in the urine. ? Urine that smells bad or unusual. ? Trouble urinating. ? Cloudy urine. ? Vaginal discharge, if you are female. ? Pain in the abdomen or the lower back. You may also have: ? Vomiting or a decreased appetite. ? Confusion. ? Irritability or tiredness. ? A fever. ? Diarrhea. The first symptom in older adults may be confusion. In some cases, they may not have any symptoms until the infection has worsened. How is this diagnosed? This condition is diagnosed based on your medical history and a physical exam. You may also have other tests, including: ? Urine tests. ? Blood tests. ? Tests for sexually transmitted infections (STIs). If you have had more than one UTI, a cystoscopy or imaging studies may be done to determine the cause of the infections. How is this treated? Treatment for this condition includes: ? Antibiotic medicine. ? Jhai-avh-zhnpppk medicines to treat discomfort. ? Drinking enough water to stay hydrated. If you have frequent infections or have other conditions such as a kidney stone, you may need to see a health care provider who specializes in the urinary tract (urologist). In rare cases, urinary tract infections can cause sepsis. Sepsis is a life-threatening condition that occurs when the body responds to an infection. Sepsis is treated in the hospital with IV antibiotics, fluids, and other medicines. Follow these instructions at home: Medicines ? Take [id number] and prescription medicines only as told by your health care provider. ? If you were prescribed an antibiotic medicine, take it as told by your health care provider. Do not stop using the antibiotic even if you start to feel better. General instructions ? Make sure you: ? Empty your bladder often and completely. Do not hold urine for long periods of time. ? Empty your bladder after sex. ? Wipe from front to back after a bowel movement if you are female. Use each tissue one time when you wipe. ? Drink enough fluid to keep your urine pale yellow. ? Keep all follow-up visits as told by your health care provider. This is important. Contact a health care provider if: ? Your symptoms do not get better after 1?2 days. ? Your symptoms go away and then return. Get help right away if you have: ? Severe pain in your back or your lower abdomen. ? A fever. ? Nausea or vomiting. Summary ? A urinary tract infection (UTI) is an infection of any part of the urinary tract, which includes the kidneys, ureters, bladder, and urethra. ? Most urinary tract infections are caused by bacteria in your genital area, around the entrance to your urinary tract (urethra). ? Treatment for this condition often includes antibiotic medicines. ? If you were prescribed an antibiotic medicine, take it as told by your health care provider. Do not stop using the antibiotic even if you start to feel better. ? Keep all follow-up visits as told by your health care provider. This is important. This in (more content not included)... Normal [facility] ED Patient Summaryon 021 ED Patient Summary [place] [id number] Patient Discharge Instructions Person Information Name: RAJIV TOVAR Age: 25 Years Arrival Date: 01/30/2021 20:17:08 Discharge Diagnosis: Acute UTI Primary Care Physician: Alon Weber MD Provider Information Primary Provider: Joshua Hollingsworth DO Advanced Wharf Builder:None The exam and treatment you received in the Emergency Department were for an urgent problem and are not intended as complete care. It is important that you follow up with a doctor, nurse practitioner, or physician?s medication assistant for ongoing care. If your symptoms become worse or you do not improve as expected and you are unable to reach your usual health care provider, you should return to the Emergency Department. We are available 24 hours a day. RAJIV TOVAR has been given the following list of patient education materials, prescriptions and follow-up instructions: Follow-up Instructions: With: Address: When: Alon Weber [facility], [address] [place] [id number] Business (1) In 3 days 02/02/2021 In the event that this physician does not participate in your insurance network, please consult with your insurance company to find a nearby participating provider. Patient Education Materials: Urinary Tract Infection, Adult A MESSAGE TO ALL PATIENTS REGARDING OPIOIDS PRESCRIPTION OPIOIDS: WHAT YOU NEED TO KNOW Prescription opioids can be used to help relieve gyazhudn-xh-wteslf pain and are often prescribed following a surgery or injury, or for certain health conditions. These medications can be an important part of the treatment but also come with serious risks. It is important to work with your healthcare provider to make sure you are getting the safest, most effective care. WHAT ARE THE RISKS AND SIDE EFFECTS OF OPIOID USE? Prescription opioids carry serious risks of addiction and overdose, especially with prolonged use. An opioid overdose, often marked by slowed breathing, can cause sudden . The use of prescription opioids can have a number of side effects as well, even when taken as directed: ? Tolerance?meaning you might need to take more of the medication for the same pain relief ? Physical dependence?meaning you have symptoms of withdrawal when a medication is stopped ? Increased sensitivity to pain ? Constipation ? Nausea, vomiting, and dry mouth ? Sleepiness and dizziness ? Confusion ? Depression ? Low levels of testosterone that can result in lower sex drive, energy, and strength ? Itching and sweating RISKS ARE GREATER WITH: ? History of drug misuse, substance use disorder, or overdose ? Mental health conditions (such as depression or anxiety) ? Sleep apnea ? Older age (65 years and older) ? Avoid alcohol while taking prescription opioids. Also, unless specifically advised by your health care provider, medications to avoid include: ? Benzodiazepines (such as Xanax or Valium) ? Muscle relaxants (such as Soma or Flexeril) ? Hypnotics (such as Ambien or Lunesta) ? Other prescription opioids KNOW YOUR OPTIONS Talk to your health care provider about ways to manage your pain that don?t involve prescription opioids. Some of these options may actually work better and have fewer risks and side effects. Options may include: ? Pain relievers such as acetaminophen, ibuprofen, and naproxen ? Some medication that are also used for depression or seizures ? Physical therapy and exercise ? Cognitive behavioral therapy, a psychological, goal-directed approach, in which patients learn how to modify physical, behavioral, and emotional triggers of pain and stress. IF YOU ARE PRESCRIBED OPIOIDS FOR PAIN: ? Never take opioids in greater amounts or more often than prescribed. ? Follow up with your primary health care provider. o Work together to create a plan on how to manage your pain. o Talk about ways to help manage your pain that don?t involve prescription opioids. o Talk about any and all concerns and side effects. ? Help prevent misuse and abuse o Never sell or share prescription opioids. o Never use another person?s prescription opioids. ? Store prescription opioids in a secure place and out of reach of others (this may include visitors, children, friends, and family). ? Safely dispose of unused prescription opioids: Find your community drug take-back program or your pharmacy mail-back program, or flush them down the toilet, following guidance from the Food and Drug Administration (www.fda.gov/Drugs/Re sourcesForYou). ? Visit www.cdc.gov/drugoverd ose to learn about the risks of opioids abuse and overdose. ? If you believe you may be struggling with addiction, tell your health tree care foreman and ask for guidance or call [facility]?S National Helpline at 8-568-634-YOJY. v Source: [place] Department of Health a (more content not included)... Normal [facility] UA With Cult Reflexon 2020 Bacteria LM Ql (Urine sed) 1+ /HPF Abnormal Trace [facility] Comment on above: Performed By: #### 1 [id number], [id number] ####[facility] [address] [place] [address] Bilirubin Ql (U) Negative Normal Negative [facility] Comment on above: Performed By: #### 1 1743695, 1493643 ####[facility] [address] [place] [address] Clarity (U) CLOUDY Abnormal Clear [facility] Comment on above: Performed By: #### 1 0383975, 0527168 ####[facility] [address] [place] [address] Color (U) YELLOW Normal Yellow [facility] Comment on above: Performed By: #### 1 1965894, 8138674 ####[facility] [address] [place] [address] Crystals LM Ql (Urine sed) Present Normal [facility] Comment on above: Performed By: #### 1 [id number], 8153333 ####[facility] [address] [place] [address] Epithelial cells.squamous LM.HPF (Urine sed) [#/Area] 0-2 Normal 0-2 [facility] Comment on above: Performed By: #### 1 9977123, 7547317 ####[facility] [address] [place] [address] Glucose Test strip (U) [Mass/Vol] Negative Normal Negative [facility] Comment on above: Performed By: #### 1 [id number], 3689773 ####[facility] [address] [place] [address] Hemoglobin Ql (U) TRACE Abnormal Negative [facility] Comment on above: Performed By: #### 1 9647629, 3907544 ####[facility] [address] [place] [address] Ketones (U) [Mass/Vol] Negative Normal Negative [facility] Comment on above: Performed By: #### 1 4040737, 9590128 ####[facility] [address] [place] [address] [place].plasma/Lithi um.RBC (Bld) [Mass ratio] 0-3 Normal 0-3 [facility] Comment on above: Performed By: #### 1 5667780, 9452280 ####[facility] [address] [place] [address] Mucus Ql (Urine sed) TRACE Normal [facility] Comment on above: Performed By: #### 1 5131449, 1965264 ####[address] [address] Nitrite Ql (U) Positive Abnormal Negative [facility] Comment on above: Performed By: #### 1 3517763, 8985276 ####[address] [address] pH (U) 7.5 [pH] Invalid Interpretation Code 5.0-9.0 [facility] Comment on above: Performed By: #### 1 1283201, 8099490 ####[address] [address] Protein (U) [Mass/Vol] Negative Normal Negative [facility] Comment on above: Performed By: #### 1 6433439, 1146706 ####[address] [address] Specific gravity (U) [Rel density] 1.020 Invalid Interpretation Code 1.005-1.030 [facility] Comment on above: Performed By: #### 1 5983950, 1059240 ####[place] [id number] Type of Urine collection method Clean Catch Normal [facility] Comment on above: Performed By: #### 1 8061578, 4191850 ####[address] [address] Urobilinogen Qn (U) 0.2 {Arnie'U}/dL Normal 0.0-1.0 [facility] Comment on above: Performed By: #### 1 6635969, 8929095 ####[address] [address] WBC Auto Ql (U) 1+ Abnormal Negative [facility] Comment on above: Performed By: #### 1 3284949, 9110766 ####[address] [address] WBC LM.HPF (Urine sed) [#/Area] 6-15 Abnormal 0-5 [facility] Comment on above: Performed By: #### 1 0826560, 9817109 ####[facility] [address] [place] [address] Auto Diffon 01-30-2021 Basophils/100 WBC (Bld) 0.4 % Normal 0.0-2.0 [facility] Comment on above: Order Comment: Order Added by Discern Expert. Performed By: #### 2 143181, 0707578, 7383637, 34559700, 3386585, 82705571, 4736748 ####[place] [address] [place] [address] Basophils/Leukocytes Auto (Bld) [Pure # fraction] 0.0 E9/L Normal 0.0-0.2 [facility] Comment on above: Order Comment: Order Added by Discern Expert. Performed By: #### 2 423870, 0757573, 6609024, 58416028, 2483804, 41521296, 9711450 ####[place] [address] [place] [address] Eosinophils/100 WBC (Bld) 1.4 % Normal 0.0-8.0 [facility] Comment on above: Order Comment: Order Added by Discern Expert. Performed By: #### 2 328688, 3599068, 4320058, 65715677, 8682284, 66800477, 9589257 ####[address] [address] Eosinophils/Leukocyt es Auto (Bld) [Pure # fraction] 0.1 E9/L Normal 0.0-0.5 [facility] Comment on above: Order Comment: Order Added by Discern Expert. Performed By: #### 2 713756, 6040176, 5036705, 33080605, 4918497, 76266229, 6535429 ####[place] [address] [place] [address] Lymphocytes/100 WBC (Bld) 23.7 % Normal 14.0-50.0 [facility] Comment on above: Order Comment: Order Added by Discern Expert. Performed By: #### 2 671070, 6281095, 2477522, 54836655, 4321431, 81808363, 9217517 ####[facility] [address] [place] [address] Lymphocytes/Leukocyt es Auto (Bld) [Pure # fraction] 1.9 E9/L Normal 1.0-4.0 [facility] Comment on above: Order Comment: Order Added by Discern Expert. Performed By: #### 2 223355, 5847367, 9305526, 67410760, 9769593, 58337236, 3988599 ####[place] [address] [place] [address] Monocytes/100 WBC (Bld) 6.2 % Normal 4.0-14.0 [facility] Comment on above: Order Comment: Order Added by Yifan Expert. Performed By: #### 2 375137, 5370703, 1931511, 83539744, 5830195, 69400536, 9699428 ####[place] [address] [place] [address] Monocytes/Leukocytes Auto (Bld) [Pure # fraction] 0.5 E9/L Normal 0.2-1.0 [facility] Comment on above: Order Comment: Order Added by Discern Expert. Performed By: #### 2 890868, 1725593, 9687167, 66817170, 4383814, 02041787, 9986831 ####[place] [address] [place] [address] Neutrophils/100 WBC (Bld) 68.3 % Normal 36.0-75.0 [facility] Comment on above: Order Comment: Order Added by Discern Expert. Performed By: #### 2 869650, 6107149, 9066817, 19913222, 5596374, 39707239, 5620784 ####[facility] [address] [place] [address] Neutrophils/Leukocyt es Auto (Bld) [Pure # fraction] 5.6 E9/L Normal 2.0-7.5 [facility] Comment on above: Order Comment: Order Added by Discern Expert. Performed By: #### 2 957660, 3856166, 1962144, 14647154, 9119186, 41237664, 9883722 ####[facility] [address] [place] [address] BMPon 01-30-2021 Calcium [Mass/Vol] 9.0 mg/dL Normal 8.9-11.1 [facility] Comment on above: Performed By: #### 2 642167, 0794437, 5989266, 39120941, 2391840, 46700758, 2069732 ####[facility] [address] [place] [address] Creatinine [Mass/Vol] 0.7 mg/dL Normal 0.5-1.3 [facility] Comment on above: Performed By: #### 2 361956, 9548896, 0507061, 04929124, 7724864, 17416329, 4789434 ####[facility] [address] [place] [address] Urea nitrogen [Mass/Vol] 10 mg/dL Normal 5-21 [facility] Comment on above: Performed By: #### 2 456286, 5512995, 4622624, 57132147, 1785138, 59104642, 9216105 ####[facility] [address] [place] [address] Urea nitrogen/Creatinine [Mass ratio] 14 No Units Normal 10-20 [facility] Comment on above: Performed By: #### 2 350274, 3035824, 7977160, 80087588, 5876429, 31662915, 8701843 ####[facility] [address] [place] [address] Anion gap [Moles/Vol] 12 mmol/L Normal 6-16 [facility] Comment on above: Performed By: #### 2 355293, 3727868, 2805749, 60909162, 8385899, 66066604, 7569242 ####[facility] [address] [place] [address] Chloride [Moles/Vol] 104 mmol/L Normal 101-111 [facility] Comment on above: Performed By: #### 2 669303, 6563089, 8878035, 59995996, 8284844, 67567847, 4528715 ####[facility] [address] [place] [address] CO2 [Moles/Vol] 25 mmol/L Normal 21-31 [facility] Comment on above: Performed By: #### 2 805472, 3037208, 7414626, 55669848, 8849692, 58081606, 0144812 ####[facility] [address] [place] [address] Glucose [Mass/Vol] 93 mg/dL Normal 55-199 [facility] Comment on above: Result Comment: If t his glucose result represents a fasting glucose, interpretation should refer to the following reference range: 55-99 mg/dL Performed By: #### 2 303420, 6718211, 6119922, 30491093, 5210577, 77080702, 7117444 ####[facility] [address] [place] [address] Potassium [Moles/Vol] 3.8 mmol/L Normal 3.5-5.3 [facility] Comment on above: Performed By: #### 2 750783, 2426878, 7885758, 88162108, 3528172, 88139388, 9528014 ####[facility] [address] [place] [address] Sodium [Moles/Vol] 137 mmol/L Normal 135-145 [facility] Comment on above: Performed By: #### 2 387418, 1461222, 7724823, 54629237, 0686290, 20788837, 2699083 ####[facility] [address] [place] [address] CBC w/ Auto Diffon 1 Erythrocyte distribution width (RBC) [Ratio] 12.2 % Normal 10.9-14.2 [facility] Comment on above: Performed By: #### 2 880773, 7887821, 1298943, 82492994, 6375446, 57236047, 0505848 ####[place] [address] [place] [address] Hematocrit (Bld) [Volume fraction] 39.3 % Normal 34.0-46.0 [facility] Comment on above: Performed By: #### 2 508630, 9405888, 2776977, 36621287, 8182627, 58892678, 7984501 ####[facility] [address] [place] [address] Hemoglobin (Bld) [Mass/Vol] 13.3 g/dL Normal 12.0-16.0 [facility] Comment on above: Performed By: #### 2 237212, 9386469, 2360244, 66477364, 4711546, 51196704, 2600272 ####[address] [address] MCH (RBC) [Entitic mass] 31.3 pg Normal 27.0-34.0 [facility] Comment on above: Performed By: #### 2 548179, 9713374, 8109420, 49257729, 7739534, 02530540, 5995361 ####[address] [address] MCHC (RBC) [Mass/Vol] 34.0 g/dL Normal 31.4-36.0 [facility] Comment on above: Performed By: #### 2 933738, 2851055, 3316455, 19853392, 6473844, 96586191, 2292003 ####[place] [address] [place] [address] MCV (RBC) [Entitic vol] 92.1 fL Normal 80.0-100.0 [facility] Comment on above: Performed By: #### 2 853795, 0154523, 4673314, 55458369, 3789421, 26133335, 6788466 ####[address] [address] Platelet mean volume (Bld) [Entitic vol] 9.2 fL Normal 6.4-10.8 [facility] Comment on above: Performed By: #### 2 890824, 7747240, 4994919, 12980754, 5115447, 24436203, 2475883 ####[facility] [address] [place] [address] Platelets (Bld) [#/Vol] 214.0 E9/L Normal 150.0-500.0 [facility] Comment on above: Performed By: #### 2 686254, 4870042, 2521675, 67780617, 7081806, 68294563, 3025397 ####[place] [address] [place] [address] RBC (Bld) [#/Vol] 4.3 E12/L Normal 4.3-5.9 [facility] Comment on above: Performed By: #### 2 869323, 7407271, 6159255, 16363085, 1636971, 16187249, 7300873 ####[place] [address] [place] [address] WBC corrected for nucl RBC Auto (Bld) [#/Vol] 8.2 E9/L Normal 4.0-11.0 [facility] Comment on above: Performed By: #### 2 871649, 3012908, 3898100, 95329960, 8186034, 98494757, 3748951 ####[place] [address] [place] [address] Consent for Treatmenton Consent for Treatment [id number] Normal [facility] Hep Func Panelon 01-30-2021 Albumin [Mass/Vol] 4.0 g/dL Normal 3.3-5.0 [facility] Comment on above: Performed By: #### 2 677221, 8407105, 3733789, 09654538, 5756683, 43802432, 0486279 #### [facility] [address] [place] [address] Albumin/Globulin (S) [Mass conc ratio] 1.5 Normal 1.1-2.2 [facility] Comment on above: Performed By: #### 2 031805, 8882414, 5466010, 94919459, 9428970, 15509116, 4683769 #### [facility] [address] [place] [address] ALP [Catalytic activity/Vol] 44 Int._Unit/L Normal 21-98 [facility] Comment on above: Performed By: #### 2 583986, 5155806, 4675843, 55869157, 8055156, 38320793, 0385806 #### [facility] [address] [place] [address] ALT No additional P-5'-P [Catalytic activity/Vol] 20 Int._Unit/L Normal 6-46 [facility] Comment on above: Performed By: #### 2 465138, 2613681, 5275420, 14416198, 1214804, 50981824, 8012884 #### [facility] [address] [place] [address] AST [Catalytic activity/Vol] 16 Int._Unit/L Normal 5-43 [facility] Comment on above: Performed By: #### 2 731823, 1124586, 2918367, 40612060, 6602610, 29269205, 2931630 #### [facility] [address] [place] [address] Bilirubin [Mass/Vol] 1.1 mg/dL Normal 0.0-1.1 [facility] Comment on above: Performed By: #### 2 591858, 1569527, 7970785, 12348888, 0959291, 00127680, 7845483 #### [facility] [address] [place] [address] Bilirubin.direct [Mass/Vol] 0.2 mg/dL Normal 0.1-0.4 [facility] Comment on above: Performed By: #### 2 218097, 7077683, 5609986, 97939892, 6951396, 49427070, 7445909 #### [facility] [address] [place] [address] Bilirubin.indirect [Mass or moles/Vol] 0.9 mg/dL Normal 0.1-0.9 [facility] Comment on above: Performed By: #### 2 179348, 4367965, 6379093, 51035479, 1932817, 39930231, 9007382 #### [facility] [address] [place] [address] Globulin (S) [Mass/Vol] 2.6 g/dL Normal 1.4-4.0 [facility] Comment on above: Performed By: #### 2 875880, 4151948, 6338202, 87520427, 9169877, 10358102, 2999686 #### [facility] [address] [place] [address] Protein [Mass/Vol] 6.6 g/dL Normal 6.0-7.8 [facility] Comment on above: Performed By: #### 2 663645, 2042778, 0857036, 21599153, 5747357, 24367165, 4952978 #### [facility] [address] [place] [address] Lipase Levelon 01-30-2021 Lipase [Catalytic activity/Vol] 32 U/L Normal 13-58 [facility] Comment on above: Performed By: #### 2 474816, 1746978, 2736703, 85691281, 4886143, 91365576, 7880510 #### [facility] [address] [place] [address] eGFRon 01-30-2021 GFR/1.73 sq M.predicted among blacks MDRD (S/P/Bld) [Vol rate/Area] mL/min/{1.73_m2} Normal >=59 [facility] Comment on above: Order Comment: Order added by Discern Expert. Result Comment: eGFR is race adjusted. AA=. Performed By: #### 2 705019, 5532198, 8727602, 72169168, 9575831, 68581586, 2347235 #### [facility] [address] [place] [address] GFR/1.73 sq M.predicted among non-blacks MDRD (S/P/Bld) [Vol rate/Area] mL/min/{1.73_m2} Normal >=59 [facility] Comment on above: Order Comment: Order added by Discern Expert. Result Comment: Supervisor Instrument Repair bib kidney disease could be indicated at eGFR's of less than 60 mL/min/1.73m2. Kidney failure is indicated at less than 15 mL/min/1.73m2. Performed By: #### 2 [id number], [id number], [id number], [id number], [id number] #### [facility] [address] [place] [address] Provider Letteron 06-03-2020 Provider Letter June 03, 2020 To Whom It May Concern, Rajiv has been under my care and had a lap choly on 05/10/2020. She was seen post operatively on 05/23/2020 and was healing well. Rajiv is released to work on 06/06/2020 with no restrictions. Please call the office at [phone] with any questions/ concerns. Sincerely, Dr. Aiden Izquierdo [facility] to [phone] Normal [facility] Ambulatory Clinical Summaryo n 05-23-2020 Ambulatory Clinical Summary {[id number]}CD:[id number] Normal [facility] General Surgery Office/Clini c Noteon 05-23-2020 General Surgery Office/Clinic Note History of Present Illness lap choly 05/10/2020. Complains of bowel urgency after meals. Right upper quadrant pains have resolved however. Physical Exam Incisions well-healed. No sign of infection. Assessment/Plan 1. Chronic cholecystitis with calculus (K80.10: Calculus of gallbladder with chronic cholecystitis without obstruction) Incision healing well, no signs of infection, no restrictions. f/u prn Follow-up With When Contact Information Aiden IZQUIERDO MD Only if needed [address] [place] [address]- Additional Instructions: F/U PRN Problem List/Past Medical History Ongoing Depression Historical No qualifying data Procedure/Surgical History Laparoscopic cholecystectomy (05/10/2020), EGD (esophagogastroduoden oscopy) gastric outlet reduction (04/29/2020), section (07/23/2019), Ankle, Diagnostic laparoscopy, Nasal cautery, Sinus. Medications desvenlafaxine 100 mg Tab-, 100 mg= 1 tab(s), Oral, Daily Allergies HYDROcodone (Hives) oxyCODONE (Hives) penicillin (Hives) Social History Alcohol Current, 04/19/2020 Substance Abuse Current, 04/19/2020 Tobacco Never (less than 100 in lifetime) Tobacco Use:., 05/16/2020 Never (less than 100 in lifetime) Tobacco Use:., 04/20/2020 Never (less than 100 in lifetime) Tobacco Use:. Cigarettes, 04/19/2020 Family History Family history is negative [facility] Comment on above: Result Comment: Elec tronically Signed By: Aiden IZQUIERDO MD\.br\Date and Time Signed: 05/23/20 10:17 EST\.br\Electronically Co-Signed By: Mildred Cook MA\.br\Date and Time Co-Signed: 05/23/20 09:55 EST IntraOperative Documentson 1 07-17-2019 IntraOperative Documents [id number] .00CD:127 Normal [facility] Ambulatory Clinical Summaryo n 05-16-2020 Ambulatory Clinical Summary {[id number]}CD:[id number] Normal [facility] Gastroenterology Office/Clin ic Noteon 05-16-2020 Gastroenterology Office/Clinic Note Chief Complaint f/u EGD HPI Staff This is a 25 year old female who presents today for a follow up to EGD. History of Present Illness 24 years old white female with no significant past medical history except for anxiety, referred to me from [facility], ER to be evaluated for right upper quadrant abdominal pain, she reports right upper quadrant abdominal pain, started 6 weeks ago, sporadic, moderate in nature except for the last time when it was severe for which she went to [facility], ER, she had normal CBC, CMP and lipase, ultrasound revealed a 7 mm lesion in the gallbladder(nonshadow ing stones versus polyp), discharge home with Bentyl, reports no fever chills, no diarrhea, constipation or rectal bleeding, reports mild nausea but no heartburn, no dysphagia, she has significant anxiety at work EGD was normal referred to Dr Izquierdo for cholecystectomy which was done o n 05/10/2020, reports significant improvement since then Review of Systems PHQ Score Initial Depression Screen Score: 0 Constitutional: no fever, no chills, no sweats, no weakness Skin: no Jaundice, no rash, no lesions, no petechiae ENMT: no ear pain, no sore throat, no congestion, no hoarseness Respiratory: no shortness of breath, no cough, no orthopnea, no wheezing Cardiovascular: no chest pain, no palpitations, no edema Gastrointestinal: no nausea, no vomiting, no diarrhea, no Constipation noGI bleeding no abd pain no dysphagia no bloating no heartburn Genitourinary: no dysuria, no hematuria, no discharge, no pain Musculoskeletal: no back pain, no trauma Neurologic: no numbness, no sleeping problems Additional ROS info: Except as noted in the above Review of Systems and in the History of Present Illness all other systems have been reviewed and are negative or noncontributory. Physical Exam Vitals & Measurements T: 36.7 ?C (Temporal Artery) HR: 99(Peripheral) RR: 16 BP: 108/70 HT: 167.6 cm HT: 167.6 cm WT: 58.8 kg WT: 58.8 kg BMI: 20.93 Constitutional: Appearance: well developed Skin: Inspection: no rashes, ulcers, icterus , or telangiectasias. Eyes: Conjunctivae/lids: normal conjunctivae and lids. ENMT: Hearing: within normal limits. Lips/Teeth/Gums: normal oral mucosa Neck: Neck: normal motion, central trachea. Respiratory: Percussion: thorax normoresonant. Auscultation: normal breath sounds; no rubs, wheezes, rale or ronchi. Cardiovascular: Auscultation: normal rhythm, S1 and S2; no rubs, murmurs or gallop. Peripheral: no edema Gastrointestinal/Abdo men: Abdomen: normal consistency and bowel sounds; no tenderness or masses. Liver/Spleen: normal size and consistency, not palpable. Rectal: deferred Musculoskeletal: Gait/station: normal gait Procedure Findings 1. Normal esophagus, soft nodule, 5 mm, at the Z-line, biopsied 2. Normal gastric and duodenal mucosa with no evidence of peptic ulcer disease [1] Final Diagnosis ( Modified ) Z LINE NODULE, BIOPSY: ? HYPERPLASTIC GASTRIC COLUMNAR CELL MUCOSA WITH MODERATE CHRONIC INFLAMMATION IN LAMINA PROPRIA. ? NO INTESTINAL METAPLASIA OR SQUAMOUS EPITHELIUM IDENTIFIED. [2] Assessment/Plan 1. Biliary colic (K80.50: Calculus of bile duct without cholangitis or cholecystitis without obstruction) resolved after cholecystectomy, normal EGD, asymptomatic now Follow-up With When Contact Information Ezequiel MARTINEZ MD Only if needed [facility] [address], [place] [address]- Additional Instructions: Patient Education Cholelithiasis Problem List/Past Medical History Ongoing Depression Historical No qualifying data Procedure/Surgical History Laparoscopic cholecystectomy (05/10/2020), EGD (esophagogastroduoden oscopy) gastric outlet reduction (04/29/2020), section (07/23/2019), Ankle, Diagnostic laparoscopy, Nasal cautery, Sinus. Medications desvenlafaxine 100 mg Tab-, 100 mg= 1 tab(s), Oral, Daily Allergies HYDROcodone (Hives) oxyCODONE (Hives) penicillin (Hives) Social History Alcohol Current, 04/19/2020 Substance Abuse Current, 04/19/2020 Tobacco Never (less than 100 in lifetime) Tobacco Use:., 05/16/2020 Never (less than 100 in lifetime) Tobacco Use:., 04/20/2020 Never (less than 100 in lifetime) Tobacco Use:. Cigarettes, 04/19/2020 Family History Family history is negative [1] GI Specialty EGD Procedure * abnormal; Ezequiel MARTINEZ MD 04/29/2020 11:01 EST [2] 07 Surgical Pathology Report; 04/29/2020 10:57 EST Normal [facility] Comment on above: Result Comment: Elec tronically Signed By: MARU POLK, Ezequiel\.br\Date and Time Signed: 05/16/20 13:22 EST Patient Educationon 05-16-20 Patient Education Family Medicine Cholelithiasis Cholelithiasis (also called gallstones ) is a form of gallbladder disease where gallstones form in your gallbladder. The gallbladder is a non-essential organ that stores bile made in the liver, which helps digest fats. Gallstones begin as small crystals and slowly grow into stones. Gallstone pain occurs when the gallbladder spasms, and a gallstone is blocking the duct. Pain can also occur when a stone passes out of the duct. Women are more likely to develop gallstones than men. Other factors that increase the risk of gallbladder disease are: ? Having multiple pregnancies. Physicians sometimes advise removing diseased gallbladders before future pregnancies. ? Obesity. ? Diets heavy in fried foods and fat. ? Increasing age (older than 60). ? Prolonged use of medications containing female hormones. ? Diabetes mellitus. ? Rapid weight loss. ? Family history of gallstones (heredity ). SYMPTOMS ? Feeling sick to your stomach (nauseous ). ? Abdominal pain. ? Yellowing of the skin (jaundice ). ? Sudden pain. It may persist from several minutes to several hours. ? Worsening pain with deep breathing or when steff. ? Fever. ? Tenderness to the touch. In some cases, when gallstones do not move into the bile duct, people have no pain or symptoms. These are called silent gallstones. TREATMENT In severe cases, emergency surgery may be required. HOME CARE INSTRUCTIONS ? Only take [id number] or prescription medicines for pain, discomfort, or fever as directed by your caregiver. ? Follow a low-fat diet until seen again. Fat causes the gallbladder to contract, which can result in pain. ? Follow up as instructed. Attacks are almost always recurrent and surgery is usually required for permanent treatment. SEEK IMMEDIATE MEDICAL CARE IF: ? Your pain increases and is not controlled by medications. ? You have an oral temperature above 102? F (38.9? C), not controlled by medication. ? You develop nausea and vomiting. MAKE SURE YOU: ? Understand these instructions. ? Will watch your condition. ? Will get help right away if you are not doing well or get worse. Document Released: 06/06/2006 Document Revised: 09/01/2012 Document Reviewed: 08/09/2011 ExitCare? Patient Information ?2013 ROKT. [facility] Coding Summary.on 05-13-2020 Coding Summary. CODING DATE: 05/13/2020 FINAL [facility] STATUS: Home (Routine DC) PAYOR: Reba APC DESCRIPTION 5361 Level 1 Laparoscopy and Related Services ADMIT DX: REASON FOR VISIT DX: K81.1 Chronic cholecystitis FINAL DX: PRINCIPAL: K81.1 Chronic cholecystitis SECONDARY: K82.8 Other specified diseases of gallbladder F41.9 Anxiety disorder, unspecified PYMT PROC APC STAT DESCRIPTION DOCTOR NAME DATE 32862 5361 J1 Laparoscopy, surgical; Aiden IZQUIERDO MD 05/10/2020 cholecystectomy with cholangiography 32912 Anesthesia for Bakari Husain Jr, DO 05/10/2020 intraperitoneal procedures in upper abdomen including laparoscopy; not otherwise specified NOTE: The code number assigned matches the documented diagnosis and / or procedure in the patient's chart. However, the narrative phrase printed from the coding software may appear abbreviated, or result in slightly different terminology. Revised Coded By: Eugenia Mae Revised Date Saved: 05/13/2020 02:09 pm [facility] Main OR Intraoperative Recor don 05-13-2020 Main OR Intraoperative Record IntraOp Document Type FT Summary Primary Physician: Aiden IZQUIERDO MD Finalized Date/Time: 05/13/20 11:07:53 Pt. Name: RAJIV TOVAR/Sex: 1995 Female Med Rec #: [id number] Physician: Aiden IZQUIERDO MD Financial #: [id number] Pt. Type: A Room/Bed: Admit/Disch: 05/10/20 07:43:57 - 05/10/20 15:00:00 Institution: Case Times FT Entry 1 Patient Times In Room 05/10/20 09:29:00 Out Room 05/10/20 10:27:00 Procedure Times Start 05/10/20 09:44:00 Stop 05/10/20 10:20:00 Anesthesia Times Start 05/10/20 09:29:00 Stop 05/10/20 10:27:00 Last Modified By: My Callahan RN 05/10/20 10:27:42 General Comments: 1011- associate technician called dr. guo read xray dilated tapers distally can't exclude small stone possible spasm , Dr. Izquierdo stated understanding. Jadon franco rn 05/13/2020 Chart opened to review and send charges. Angela Leavitt CST. Case Attendance FT Entry 1 Entry 2 Entry 3 Case Attendee Ankit AGUILAR, Linnea IZQUIERDO MD, Aiden ARAUJO MD, Ramandeep Cummings Role Performed Anesthesiologist Surgeon - Primary Surgeon - Assist 1 Communications Editor Time In 05/10/20 09:29:00 05/10/20 09:40:00 05/10/20 09:45:00 Time Out 05/10/20 10:27:00 05/10/20 10:21:00 05/10/20 10:20:00 Procedure CHOLECYSTECTOMY CHOLECYSTECTOMY CHOLECYSTECTOMY LAPAROSCOPIC W/ LAPAROSCOPIC W/ LAPAROSCOPIC W/ CHOLANGI(.) CHOLANGI(.) CHOLANGI(.) Comments DR HUSAIN SUPERVISING Last Modified By: London RN, My Callahan RN, My Callahan RN, My Cummings 05/10/20 10:27:43 05/10/20 10:27:43 05/10/20 10:27:43 Entry 4 Entry 5 Entry 6 Case Attendee London TURNER, My Villalba RN, Bernadette Ortiz Cert. Fixture Repairer Fabricator, Arlette Davila Role Performed Tiler - Primary Scrub - Primary Scrub - Primary Time In 05/10/20 09:29:00 05/10/20 09:29:00 05/10/20 09:29:00 Time Out 05/10/20 10:27:00 05/10/20 10:27:00 05/10/20 10:27:00 Procedure CHOLECYSTECTOMY CHOLECYSTECTOMY CHOLECYSTECTOMY LAPAROSCOPIC W/ LAPAROSCOPIC W/ LAPAROSCOPIC W/ CHOLANGI(.) CHOLANGI(.) CHOLANGI(.) Comments ORIENTATION ORIENTATION Last Modified By: London RN, My Callahan RN, My Rubio RN 05/10/20 10:27:43 05/10/20 10:27:43 05/10/20 10:27:43 Entry 7 Entry 8 Case Attendee Carlos MCLEAN, Kim Kaufman RT(R), Magalie R Role Performed Scrub - Primary Orthotic/Prosthetic Clinician Time In 05/10/20 09:29:00 05/10/20 10:00:00 Time Out 05/10/20 10:27:00 05/10/20 10:03:00 Procedure CHOLECYSTECTOMY CHOLECYSTECTOMY LAPAROSCOPIC W/ LAPAROSCOPIC W/ CHOLANGI(.) CHOLANGI(.) Comments Last Modified By: My Callahan RN, RN, Emily A 05/10/20 10:27:43 05/10/20 10:27:43 Perioperative Protocols FT Pre-Care Text: Implements protective measures prior to operative or invasive procedure, confirms identity before the operative or invasive procedure, verifies operative procedure, surgical site, and laterality Entry 1 Procedure(s) CHOLECYSTECTOMY Patient Identity Birthday, ID Band LAPAROSCOPIC W/ Verified (select at Check, Patient CHOLANGI(.) least 2): Participation Consents / H and P Anesthesia Consent, Operative Site N/A Verified HandP, Surgery/Procedure Marking Verified Consent Surgical Site Yes Laterality Verified n/a Verified Procedure Verified Yes Correct Patient Yes Position Verified Availability Equipment, Medication, Prep Dry Yes Verified (If X-ray Applicable) PreOp Antibiotic No Time Out Linnea Clemons SCHMIDT MD, Eric R, Coy RN, Emily A, Chapin RN, eBrnadette Stephens, Angel Cert. Fixture Repairer Fabricator, Arlette RCarlos JANITOR SUPERVISOR, Kim Ulloa Time Out Complete 05/10/20 09:44:00 Outcomes Met? Yes Last Modified By: My Callahan RN 05/10/20 09:49:10 Post-Care Text: The patient is free from signs and symptoms of injury caused by extraneous objects Allergy Information FT Pre-Care Text: Verifies allergies Entry 1 Allergies Reviewed? Yes Allergies Reviewed Self/Patient With Outcomes Met? Yes Last Modified By: My Callahan RN 05/10/20 09:21:49 Post-Care Text: The patient received appropriate medication(s) safely administered during the perioperative period Surgical Procedures FT Entry 1 Procedure Description Procedure CHOLECYSTECTOMY Modifiers . LAPAROSCOPIC W/ CHOLANGIOGRAM Surgeon Description LAPAROSCOPIC CHOLECYSTECTOMY WITH INTRAOPERATIVE CHOLANGIOGRAMS Primary Procedure Yes Primary Surgeon Aiden IZQUIERDO MD Start 05/10/20 09:44:00 Stop 05/10/20 10:20:00 Anesthesia Type General Surgical Service General Wound Class 2 - Clean-Contaminated Last Modified By: My Callahan RN 05/10/20 10:27:44 General Case Data FT Pre-Care Text: Classifies surgical wound, implements aseptic technique, initiates traffic control Entry 1 Case Information OR OR 5 FT Case Level Level 3 Wound Class 2 - Clean-Contaminated Specialty General ASA Class 2 Preop Diagnosis BILIARY DYSKINESIA Postop Same As Preop Yes Postop Diagnosis BILIARY DYSKINESIA Outcomes Met? Yes Last Modified By: Artemio (more content not included)... Normal [facility] Postoperative Documentson Postoperative Documents [id number] 1.00CD:127 Normal [facility] Progress Note-Physicianon Progress Note-Physician Patient: RAJIV TOVAR Age: 25 years Sex: Female : 1995 Associated Diagnoses: None Author: Bakari Husain Jr, DO Preoperative Information Time patient last ate or drank:=== (npo 8 hours) Anesthesia history: Patient history: No prior anesthesia problems. Re-evaluation prior to induction: Completed, Initial evaluation reviewed. Review of Systems Respiratory: No shortness of breath. Cardiovascular: No chest pain. Hematology/Lymphatics : No bruising tendency, No bleeding tendency. Health Status Allergies: Allergic Reactions (All) Severity Not Documented HYDROcodone- Hives. OxyCODONE- Hives. Penicillin- Hives. Current medications: (Selected) Inpatient Medications Ordered Lactated Ringers IV Ara 1000 mL 1,000 mL: 1,000 mL, IV, 100 mL/hr, Routine, Start date 05/10/20 10:28:00 EST, 10 hour(s), Total volume (mL): 1,000, 59 kg, 1.66, m2 Lactated Ringers IV Ara 1000 mL 1,000 mL: 1,000 mL, IV, 150 mL/hr, Routine, Start date 05/10/20 7:30:00 EST, 6.7 hour(s), Total volume (mL): 1,000, 59 kg, 1.66, m2 Zofran 4 mg/2 mL Injection: 4 mg = 2 mL, Injection, IV, q6hr PRN Nausea/Vomiting, Routine, Start date 05/10/20 10:28:00 EST ibuprofen 600 mg Tab: 600 mg = 1 tab(s), Tab, Oral, q6hr PRN Pain, Routine, Start date 05/10/20 10:28:00 EST Prescriptions Prescribed Zofran ODT 4 mg Tab: 4 mg = 1 tab(s), Oral, TID, # 10 tab(s), Refills(s) 0, Pharmacy: [facility]/pharmacy #[id number], 168, cm, 04/19/20 6:20:00 EDT, Height/Length Dosing, 58.5, kg, 04/19/20 6:20:00 EDT, Weight Dosing omeprazole 40 mg Cap-DR: 40 mg = 1 cap(s), Oral, Daily, # 30 cap(s), Refills(s) 2, Pharmacy: [facility]/pharmacy #[id number], 168, cm, 04/20/20 10:06:00 EDT, Height/Length Dosing, 59.5, kg, 04/20/20 10:06:00 EDT, Weight Dosing Documented Medications Documented desvenlafaxine 100 mg Tab-: 100 mg = 1 tab(s), Oral, Daily, Refills(s) 0, Depression Problem list: All Problems Biliary dyskinesia / SNOMED CT 254587008 / Confirmed Depression / SNOMED CT 49379876 / Confirmed Histories Past Medical History: No active or resolved past medical history items have been selected or recorded. Family History: Entire family history is negative. Procedure history: EGD (esophagogastroduoden oscopy) gastric outlet reduction ([id number]) on 04/29/2020 at 25 Years. section ([id number]) on 07/23/2019 at 24 Years. Sinus ([id number]). Nasal cautery (571744360). Ankle (6982491). 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 Comments: 05/10/2020 8:26 EST - Kluding FORKLIFT DRIVER, Bernarda ovarian cyst drained Social History Social & Psychosocial Habits Alcohol 04/19/2020 Use: Current Comment: [place] - 04/19/2020 06:50 Christiana Yee RN Substance Abuse 04/19/2020 Use: Current Comment: [place] - 04/19/2020 06:50 - Christiana Cuevas RN Tobacco 04/19/2020 Tobacco Use: Never (less than 100 in l Type: Cigarettes 04/20/2020 Tobacco Use: Never (less than 100 in l 05/02/2020 Tobacco Use: Never (less than 100 in l . Physical Examination Vital Signs 05/10/2020 11:03 EST Temperature Oral 36.8 DegC Heart Rate Monitored 73 bpm Respiratory Rate 16 br/min Systolic Blood Pressure 131 mmHg Diastolic Blood Pressure 82 mmHg Blood Pressure Location Right arm Mean Arterial Pressure, Monitered 98 mmHg SpO2 99 % 05/10/2020 10:55 EST Temperature Temporal Artery 36.7 DegC Heart Rate Monitored 74 bpm Respiratory Rate Monitored 20 br/min Systolic Blood Pressure 118 mmHg Diastolic Blood Pressure 86 mmHg SpO2 100 % 05/10/2020 10:50 EST Heart Rate Monitored 74 bpm Respiratory Rate Monitored 17 br/min Systolic Blood Pressure 116 mmHg Diastolic Blood Pressure 80 mmHg SpO2 100 % 05/10/2020 10:40 EST Heart Rate Monitored 74 bpm Respiratory Rate Monitored 22 br/min Systolic Blood Pressure 114 mmHg Diastolic Blood Pressure 80 mmHg SpO2 100 % 05/10/2020 10:35 EST Heart Rate Monitored 75 bpm Respiratory Rate Monitored 23 br/min Systolic Blood Pressure 112 mmHg Diastolic Blood Pressure 77 mmHg SpO2 100 % 05/10/2020 10:30 EST Heart Rate Monitored 83 bpm Respiratory Rate Monitored 21 br/min Systolic Blood Pressure 113 mmHg Diastolic Blood Pressure 77 mmHg SpO2 100 % 05/10/2020 10:28 EST Temperature Temporal Artery 36.5 DegC Heart Rate Monitored 86 bpm Respiratory Rate Monitored 24 br/min Systolic Blood Pressure 119 mmHg Diastolic Blood Pressure 75 mmHg Blood Pressure Location Right arm SpO2 100 % 05/10/2020 10:25 EST Heart Rate Monitored 91 bpm bpm Respiratory Rate 31 br/min br/min SpO2 100 % % 05/10/2020 10:20 EST Heart Rate Monitored 74 bpm bpm Respiratory Rate 8 br/min br/min Systolic Blood Pressure 109 mmHg mmHg Diastolic Blood Pressure 66 mmHg mmHg SpO2 99 % % 05/10/2020 10:16 EST Systolic Blood Pressure 103 mmHg mmHg Diastolic Blood Pressure 56 mmHg mmHg 05/10/2020 10:15 EST Heart (more content not included)... Normal [facility] Comment on above: Result Comment: Elec tronically Signed By: Bakari Husain Jr, DO\.br\Date and Time Signed: 05/13/20 13:23 EST Progress Note-Physician Patient: RAJIV TOVAR Age: 25 years Sex: Female : 1995 Associated Diagnoses: None Author: Bakari Husain Jr, DO Postoperative Information Post Operative Note: Post Anesthesia Care Unit. Anesthetic utilized: General. Health Status Allergies: Allergic Reactions (Selected) Severity Not Documented HYDROcodone- Hives. OxyCODONE- Hives. Penicillin- Hives. Problem list: All Problems Biliary dyskinesia / SNOMED CT 498582189 / Confirmed Depression / SNOMED CT 23520913 / Confirmed Physical Examination Vital Signs 05/10/2020 11:03 EST Temperature Oral 36.8 DegC Heart Rate Monitored 73 bpm Respiratory Rate 16 br/min Systolic Blood Pressure 131 mmHg Diastolic Blood Pressure 82 mmHg Blood Pressure Location Right arm Mean Arterial Pressure, Monitered 98 mmHg SpO2 99 % 05/10/2020 10:55 EST Temperature Temporal Artery 36.7 DegC Heart Rate Monitored 74 bpm Respiratory Rate Monitored 20 br/min Systolic Blood Pressure 118 mmHg Diastolic Blood Pressure 86 mmHg SpO2 100 % 05/10/2020 10:50 EST Heart Rate Monitored 74 bpm Respiratory Rate Monitored 17 br/min Systolic Blood Pressure 116 mmHg Diastolic Blood Pressure 80 mmHg SpO2 100 % 05/10/2020 10:40 EST Heart Rate Monitored 74 bpm Respiratory Rate Monitored 22 br/min Systolic Blood Pressure 114 mmHg Diastolic Blood Pressure 80 mmHg SpO2 100 % 05/10/2020 10:35 EST Heart Rate Monitored 75 bpm Respiratory Rate Monitored 23 br/min Systolic Blood Pressure 112 mmHg Diastolic Blood Pressure 77 mmHg SpO2 100 % 05/10/2020 10:30 EST Heart Rate Monitored 83 bpm Respiratory Rate Monitored 21 br/min Systolic Blood Pressure 113 mmHg Diastolic Blood Pressure 77 mmHg SpO2 100 % 05/10/2020 10:28 EST Temperature Temporal Artery 36.5 DegC Heart Rate Monitored 86 bpm Respiratory Rate Monitored 24 br/min Systolic Blood Pressure 119 mmHg Diastolic Blood Pressure 75 mmHg Blood Pressure Location Right arm SpO2 100 % 05/10/2020 10:25 EST Heart Rate Monitored 91 bpm bpm Respiratory Rate 31 br/min br/min SpO2 100 % % 05/10/2020 10:20 EST Heart Rate Monitored 74 bpm bpm Respiratory Rate 8 br/min br/min Systolic Blood Pressure 109 mmHg mmHg Diastolic Blood Pressure 66 mmHg mmHg SpO2 99 % % 05/10/2020 10:16 EST Systolic Blood Pressure 103 mmHg mmHg Diastolic Blood Pressure 56 mmHg mmHg 05/10/2020 10:15 EST Heart Rate Monitored 81 bpm bpm Respiratory Rate 7 br/min br/min SpO2 98 % % 05/10/2020 10:12 EST Systolic Blood Pressure 97 mmHg mmHg Diastolic Blood Pressure 60 mmHg mmHg 05/10/2020 10:10 EST Heart Rate Monitored 101 bpm bpm Respiratory Rate 12 br/min br/min SpO2 98 % % 05/10/2020 10:08 EST Systolic Blood Pressure 92 mmHg mmHg Diastolic Blood Pressure 60 mmHg mmHg 05/10/2020 10:05 EST Heart Rate Monitored 100 bpm bpm Respiratory Rate 12 br/min br/min SpO2 98 % % 05/10/2020 10:04 EST Systolic Blood Pressure 95 mmHg mmHg Diastolic Blood Pressure 62 mmHg mmHg 05/10/2020 10:00 EST Heart Rate Monitored 97 bpm bpm Respiratory Rate 12 br/min br/min Systolic Blood Pressure 102 mmHg mmHg Diastolic Blood Pressure 58 mmHg mmHg SpO2 98 % % 05/10/2020 9:56 EST Systolic Blood Pressure 98 mmHg mmHg Diastolic Blood Pressure 66 mmHg mmHg 05/10/2020 9:55 EST Heart Rate Monitored 108 bpm bpm Respiratory Rate 12 br/min br/min SpO2 98 % % 05/10/2020 9:52 EST Systolic Blood Pressure 91 mmHg mmHg Diastolic Blood Pressure 51 mmHg mmHg 05/10/2020 9:50 EST Heart Rate Monitored 123 bpm bpm Respiratory Rate 12 br/min br/min SpO2 98 % % 05/10/2020 9:48 EST Systolic Blood Pressure 113 mmHg mmHg Diastolic Blood Pressure 71 mmHg mmHg 05/10/2020 9:45 EST Heart Rate Monitored 112 bpm bpm Respiratory Rate 12 br/min br/min SpO2 98 % % 05/10/2020 9:44 EST Systolic Blood Pressure 95 mmHg mmHg Diastolic Blood Pressure 58 mmHg mmHg 05/10/2020 9:40 EST Heart Rate Monitored 114 bpm bpm Respiratory Rate 9 br/min br/min Systolic Blood Pressure 111 mmHg mmHg Diastolic Blood Pressure 75 mmHg mmHg SpO2 99 % % 05/10/2020 9:37 EST Systolic Blood Pressure 114 mmHg mmHg Diastolic Blood Pressure 79 mmHg mmHg 05/10/2020 9:36 EST Systolic Blood Pressure 128 mmHg mmHg Diastolic Blood Pressure 95 mmHg mmHg 05/10/2020 9:35 EST Heart Rate Monitored 112 bpm bpm Respiratory Rate 4 br/min br/min SpO2 100 % % 05/10/2020 9:31 EST Systolic Blood Pressure 131 mmHg mmHg Diastolic Blood Pressure 87 mmHg mmHg 05/10/2020 8:12 EST Heart Rate Monitored 98 bpm Systolic Blood Pressure 104 mmHg Diastolic Blood Pressure 68 mmHg Blood Pressure Location Left arm Mean Arterial Pressure, Monitered 80 mmHg 05/10/2020 8:11 EST Temperature Oral 37 DegC Heart Rate Monitored 93 bpm Respiratory Rate 18 br/min Systolic Blood Pressure 116 mmHg Diastolic Blood Pressure 77 mmHg Blood Pressure Location Right arm Mean Arterial Pressure, Monitered 90 mmHg SpO2 98 % 05/10/2020 8:11 EST Apic (more content not included)... [facility] Comment on above: Result Comment: Elec tronically Signed By: Rodrigue Berry DO, Bakari Cummings\.br\Date and Time Signed: 05/13/20 13:20 EST Coding Summary.on 05-12-2020 Coding Summary. CODING DATE: 05/12/2020 FINAL [facility] DSC STATUS: Home (Routine DC) PAYOR: Reba ADMIT DX: REASON FOR VISIT DX: Z01.812 Encounter for preprocedural laboratory examination FINAL DX: PRINCIPAL: Z01.812 Encounter for preprocedural laboratory examination SECONDARY: Z20.828 Contact with and (suspected) exposure to other viral communicable diseases K82.8 Other specified diseases of gallbladder PYMT PROC APC STAT DESCRIPTION DOCTOR NAME DATE NOTE: The code number assigned matches the documented diagnosis and / or procedure in the patient's chart. However, the narrative phrase printed from the coding software may appear abbreviated, or result in slightly different terminology. Coded By: Linda Jaquez CphT Date Saved: 05/12/2020 09:53 pm [facility] Consent for Anesthesiaon Consent for Anesthesia [id number]# 1.00CD:127 [facility] Discharge Instructionson Discharge Instructions [id number]# 1.00CD:127 [facility] IntraOperative Documentson 1 07-11-2019 IntraOperative Documents [id number]# 1.00CD:127 [facility] Operative Reporton 0 Operative Report Date of Surgery: 05/10/2020 SURGEON: Aiden Izquierdo MD, FACS CORRECTIONAL SUPERVISOR: Ramandeep Araujo MD, FACS PREOPERATIVE DIAGNOSIS: Chronic cholecystitis POSTOPERATIVE DIAGNOSIS: Chronic cholecystitis, pending pathology OPERATION: Laparoscopic cholecystectomy with intraoperative cholangiogram ANESTHESIA: General with local ANESTHESIOLOGIST: Bakari Husain Jr., D.O. INDICATIONS: This is a 25 year old white female who presents with complaints of right upper quadrant biliary pain. Gastrointestinal workup did not reveal any significant abnormalities including a normal esophagogastroduodeno scopy. Gallbladder ultrasound showed evidence of either a thick stone, polyp or sludge within the gallbladder. Based on these findings and the patient's symptoms a decision was made to proceed with laparoscopic cholecystectomy after a long discussion with the patient. She understands that this may not alleviate her symptoms and she is willing to proceed. PROCEDURE: The patient was brought to the Operating Room and under general anesthesia prepped and draped in the usual sterile manner with ChloraPrep. The skin was anesthetized with 0.5% Marcaine at all four sites. A small infraumbilical incision was made through her old transverse scar. The umbilicus was elevated with towel clamps and the Veress needle introduced into the abdominal cavity with its position verified by the drop Saline technique. The abdomen was insufflated with carbon dioxide with a maximum pressure setting of 12 mm Hg. After obtaining an adequate pneumoperitoneum the Veress needle was removed and a 5 mm trocar cannula placed under direct vision into the abdominal cavity. Initial exploration did not reveal any significant abnormalities. The patient was then placed in reverse Trendelenburg position and an 11 mm trocar cannula placed under direct vision through a small incision in the mid-epigastrium. Two 5 mm cannulas were placed on the right side in a similar manner. The gallbladder was then elevated into position through the lateral ports with graspers. There were some mesenteric adhesions to the inferior aspect of the gallbladder which were bluntly divided away. Dissection was then carried out in the region of the hepaticocystic triangle identifying the junction of the gallbladder and cystic duct where a clip was placed. A small incision was made in the duct. A 14 gauge Angiocath was placed percutaneously into the abdominal cavity under direct vision and cholangiogram catheter introduced through this and secured within the cystic duct with a clip. Intraoperative fluoroscopic cholangiogram showed good flow of contrast proximally and distally with no evidence of obstruction. This was read as normal by the radiologist although there was a question of a dilated duct. There was prompt filling of the duodenum with no evidence of obstruction on cholangiogram intraoperatively. Clip and catheter were then removed and three clips placed on the patient's side of the cystic duct and it was divided. Two clips were placed on the patient's side of the cystic artery on the gallbladder side and it was divided. The gallbladder was then dissected free from the liver bed, placed in an Endopouch and brought out through the epigastric port and sent to Pathology. After being assured adequate hemostasis had been obtained with electrocautery as needed and irrigating fluid aspiration as best as possible the cannulas were all removed under direct vision and the pneumoperitoneum evacuated. The skin was reapproximated at all four sites with 4-0 Monocryl subcuticular suture with Steri-Strips and Band-Aids applied. The patient tolerated the procedure well and was transferred to the Recovery Room in stable condition. Aiden Izquierdo MD, FACS lkr Dictated: 05/10/2020 #[id number] Typed: 05/10/2020 #[id number] cc: Alon Weber M.D. Aiden Izquierdo MD, FACS [facility] Comment on above: Result Comment: Elec tronically Signed By: TIMBO POLK, Aiden Davila\.br\Date and Time Signed: 05/11/20 08:04 EST Preoperative Documentson Preoperative Documents [id number]# 1.00CD:127 [facility] Preoperative Documents [id number]# 1.00CD:127 [facility] Consent for Treatmenton 04-24 Consent for Treatment [id number]#1 .00CD:127 [facility] Inpatient Patient Summaryon 05-10-2020 Inpatient Patient Summary [place] [id number] [facility] Clinical Discharge Instructions PERSON INFORMATION Name: RAJIV TOVAR [facility]#:[id number] PHYSICIANS Admitting Physician: Aiden IZQUIERDO MD Attending Physician: Aiden IZQUIERDO MD PCP: Alon Weber MD Discharge Diagnosis: Chronic cholecystitis with calculus Comment: PATIENT EDUCATION INFORMATION Instructions: Post Op Patient Instructions - MANFRED (CUSTOM); How to Use an Incentive Spirometer; Timbo - Post Op Instructions (CUSTOM) Medication Leaflets: Follow up: With: Address: When: Aiden IZQUIERDO [address], [address] [place] [address] [place] (1) Within 7 to 10 days Comments: Call for any problems. Call for followup appointment Type Location Start [facility] Follow Up [facility] 05/16/2020 1:00 PM 05/16/2020 1:15 PM Confirmed MEDICATION LIST Medications to Continue with No Changes Other Medications desvenlafaxine (desvenlafaxine 100 mg Tab-) 1 Tablets By Mouth every day. omeprazole (omeprazole 40 mg Cap-DR) 1 Capsules By Mouth every day. Refills: 2. ondansetron (Zofran ODT 4 mg Tab) 1 Tablets By Mouth 3 times a day. Refills: 0. Comment: Normal [facility] IntraOperative Documentson 07-10-2019 IntraOperative Documents [id number]# 1.00CD:127 [facility] Main OR PACU I Recordon 04-24 Main OR PACU I Record PACU Phase I Document Type FT Summary Primary Physician: Aiden IZQUIERDO MD Finalized Date/Time: 05/10/20 11:13:04 Pt. Name: RAJIV TOVAR/Sex: 1995 Female Med Rec #: [id number] Physician: Aiden IZQUIERDO MD Financial #: [id number] Pt. Type: A Room/Bed: Admit/Disch: 05/10/20 07:43:57 - Institution: Case Times PACU I FT Pre-Care Text: Identifies barriers to communication and implements measures to provide psychological support Develops individualized plan of care, and ensures continuity of care Maintains patient's dignity and privacy, and maintains patient confidentiality Identifies and reports philosophical, cultural, and spiritual beliefs and values Identifies individual values and wishes concerning care Implements aseptic technique, and administers prescribed antibiotic therapy and immunizing agents as ordered Evaluates postoperative tissue perfusion Implements thermoregulation measures, and monitors body temperature Evaluates postoperative respiratory status Evaluates postoperative cardiac status Evaluates postoperative neurological status Assesses pain control, collaborated in initiating patient-controlled analgesia and implements alternative methods of pain control Verifies allergies, administers prescribed medications and solutions, evaluates response to medications Entry 1 In PACU I 05/10/20 10:28:00 Discharge from PACU 05/10/20 10:58:00 I Outcomes Met? Yes Last Modified By: Belkys Yarbrough RN 05/10/20 11:12:50 Post-Care Text: The patient demonstrates knowledge of the expected response to the operative or invasive procedure The patient's care is consistent with the individualized perioperative plan of care The patient's right to privacy is maintained The patient's value system, lifestyle, ethnicity, and culture are considered, respected, and incorporated into the perioperative plan of care The patient participates in decisions affecting his or her perioperative plan of care The patient is free from signs and symptoms of infection The patient has wound/tissue perfusion consistent with or improved from baseline levels established preoperatively The patient is at or returning to normothermia at the conclusion of the immediate postoperative period The patient's respiratory function is consistent with or improved from baseline levels established preoperatively The patient's cardiovascular status is consistent with or improved from baseline levels established preoperatively The patient's cardiovascular status is consistent with or improved from baseline levels established preoperatively The patient demonstrates and/or reports adequate pain control throughout the perioperative period The patient received appropriate medication(s), safely administered during the perioperative period Acuity Level PACU I FT Entry 1 Start Time 05/10/20 10:28:00 Stop Time 05/10/20 10:58:00 Acuity Level Acuity Level I Last Modified By: Belkys Yarbrough RN 05/10/20 11:13:03 Finalized By: Belkys Yarbrough RN Document Signatures Signed By: Belkys Yarbrough RN 05/10/20 11:13 Normal [facility] Main OR PACU II Recordon Main OR PACU II Record PACU Phase II Document Type FT Summary Primary Physician: Aiden IZQUIERDO MD Finalized Date/Time: 05/10/20 15:45:07 Pt. Name: RAJIV TOVAR/Sex: 1995 Female Med Rec #: [id number] Physician: Aiden IZQUIERDO MD Financial #: [id number] Pt. Type: A Room/Bed: AS06/24 Admit/Disch: 05/10/20 07:43:57 - Institution: Case Times PACU II FT Pre-Care Text: Identifies barriers to communication and implements measures to provide psychological support and determines knowledge level Develops individualized plan of care, and ensures continuity of care Maintains patient's dignity and privacy, and maintains patient confidentiality Identifies and reports philosophical, cultural, and spiritual beliefs and values Identifies individual values and wishes concerning care administers prescribed antibiotic therapy and immunizing agents as ordered, Evaluates postoperative tissue perfusion Implements thermoregulation measures, and monitors body temperature Evaluates postoperative respiratory status Evaluates postoperative cardiac status Evaluates postoperative neurological status Assesses pain control, collaborated in initiating patient-controlled analgesia and implements alternative methods of pain control Verifies allergies, administers prescribed medications and solutions, evaluates response to medications Entry 1 In PACU II 05/10/20 11:00:00 Discharge from PACU 05/10/20 15:00:00 II Outcomes Met? Yes Last Modified By: Marcelina Cadet RN 05/10/20 15:45:06 Post-Care Text: The patient demonstrates knowledge of the expected response to the operative or invasive procedure The patient's care is consistent with the individualized perioperative plan of care The patient's right to privacy is maintained The patient's value system, lifestyle, ethnicity, and culture are considered, respected, and incorporated into the perioperative plan of care The patient participates in decisions affecting his or her perioperative plan of care. The patient is free from signs and symptoms of infection The patient has wound/tissue perfusion consistent with or improved from baseline levels established preoperatively The patient is at or returning to normothermia at the conclusion of the immediate postoperative period The patient's respiratory function is consistent with or improved from baseline levels established preoperatively The patient's cardiovascular status is consistent with or improved from baseline levels established preoperatively The patient's neurological status is consistent with or improved from baseline levels established preoperatively The patient demonstrates and/or reports adequate pain control throughout the perioperative period The patient received appropriate medication(s), safely administered during the perioperative period Finalized By: Marceilna Cadet RN Document Signatures Signed By: Marcelina Cadet RN 05/10/20 15:45 [facility] Main OR Preoperative Recordo n 05-10-2020 Main OR Preoperative Record PreOp Document Type FT Summary Primary Physician: Aiden IZQUIERDO MD Number: [id number] Finalized Date/Time: 05/10/20 10:00:50 Pt. Name: RAJIV TOVAR /Sex: 1995 Female Med Rec #: [id number] Physician: Aiden IZQUIERDO MD Financial #: [id number] Pt. Type: A Room/Bed: [place] [address] Admit/Disch: 05/10/20 07:43:57 - Institution: Case Times PreOp FT Pre-Care Text: Verifies consent for planned procedure, identifies individual values and wishes concerning care, includes family members in perioperative teaching Entry 1 Patient Times. In Pre Surgery 05/10/20 07:55:00 Out Pre Surgery 05/10/20 09:27:00 Outcomes Met? Yes Last Modified By: My Callahan RN 05/10/20 10:00:38 Post-Care Text: The patient participates in decisions affecting his or her perioperative plan of care Finalized By: My Callahan RN Document Signatures Signed By: My Callahan RN 05/10/20 10:00 Normal [facility] Monitor Recordon 05-10-2020 Monitor Record [id number]# 1.00CD:127 Normal [facility] Outpatient Surgery Discharge Instructionon 05-10-2020 Outpatient Surgery Discharge Instruction [place] [id number] Patient Discharge Instructions PERSON INFORMATION Name: RAJIV TOVAR Date of : 1995 Current Date: 05/10/2020 10:41:36 PHYSICIANS Admitting Physician: Aiden IZQUIERDO MD Discharge Diagnosis: Chronic cholecystitis with calculus AKHIL RAJIV has been given the following list of follow-up instructions, prescriptions, and patient education materials: PATIENT FOLLOW-UP INFORMATION Diet: Regular Discharge Activity: Expect mild pain, Expect minimal amount of drainage and/or bleeding Wound Care Instructions: Remove dressing as instructed Remove Your Dressing In 2 Days IF UNABLE TO CONTACT YOUR PHYSICIAN AND YOU FEEL IT IS AN EMERGENCY, GO TO THE NEAREST EMERGENCY ROOM OR CALL 911 I, RAJIV TOVAR, have received the attached patient education materials/instruction s and have verbalized understanding: May we do a follow up call? Yes No I was present when discharge instructions were given Patient Signature Date Clinican/Nurse Signature Date Follow up: With: Address: When: [address], [address] [place] [address] Business (1) Within 7 to 10 days Comments: Call for any problems. Call for followup appointment Type Location [facility] Follow Up [facility] 05/16/2020 1:00 PM 05/16/2020 1:15 PM Confirmed Pharmacy Information: Thank you for choosing [facility] HERE ARE THE MEDICATION CHANGES THAT OCCURRED DURING YOUR HOSPITAL STAY Medications to Continue with No Changes Other Medications desvenlafaxine (desvenlafaxine 100 mg Tab-) 1 Tablets By Mouth every day. omeprazole (omeprazole 40 mg Cap-DR) 1 Capsules By Mouth every day. Refills: 2. ondansetron (Zofran ODT 4 mg Tab) 1 Tablets By Mouth 3 times a day. Refills: 0. PATIENT EDUCATION INFORMATION Instructions: How To Use an Incentive Spirometer An incentive spirometer is a tool that measures how well you are filling your lungs with each breath. Learning to take long, deep breaths using this tool can help you keep your lungs clear and active. This may help to reverse or lessen your chance of developing breathing (pulmonary) problems, especially infection. You may be asked to use a spirometer: ? After a surgery. ? If you have a lung problem or a history of smoking. ? After a long period of time when you have been unable to move or be active. If the spirometer includes an indicator to show the highest number that you have reached, your health care provider or respiratory therapist will help you set a goal. Keep a list (log) of your progress as told by your health care provider. What are the risks? ? Breathing too quickly may cause dizziness or cause you to pass out. Take your time so you do not get dizzy or light-headed. ? If you are in pain, you may need to take pain medicine before doing incentive spirometry. It is harder to take a deep breath if you are having pain. How to use your incentive spirometer 1. Sit up on the edge of your bed or on a chair. 2. Hold the incentive spirometer so that it is in an upright position. 3. Before you use the spirometer, breathe out normally. 4. Place the mouthpiece in your mouth. Make sure your lips are closed tightly around it. 5. Breathe in slowly and as deeply as you can through your mouth, causing the piston or the ball to rise toward the top of the chamber. 6. Hold your breath for 3?5 seconds, or for as long as possible. ? If the spirometer includes a women's soccer coach indicator, use this to guide you in breathing. Slow down your breathing if the indicator goes above the marked areas. 7. Remove the mouthpiece from your mouth and breathe out normally. The piston or ball will return to the bottom of the chamber. 8. Rest for a few seconds, then repeat the steps 10 or more times. ? Take your time and take a few normal breaths between deep breaths so that you do not get dizzy or light-headed. ? Do this every 1?2 hours when you are awake. 9. If the spirometer includes a goal marker to show the highest number you have reached (best effort), use this as a goal to work toward during each repetition. 10. After each set of 10 deep breaths, cough a few times. This will help to make sure that your lungs are clear. ? If you have an incision on your chest or abdomen from surgery, place a pillow or a rolled-up towel firmly against the incision when you cough. This can help to reduce pain from co (more content not included)... Normal [facility] Patient Education - Texton 1 07-10-2019 Patient Education - Text Pulmonary Medicine How To Use an Incentive Spirometer An incentive spirometer is a tool that measures how well you are filling your lungs with each breath. Learning to take long, deep breaths using this tool can help you keep your lungs clear and active. This may help to reverse or lessen your chance of developing breathing (pulmonary) problems, especially infection. You may be asked to use a spirometer: ? After a surgery. ? If you have a lung problem or a history of smoking. ? After a long period of time when you have been unable to move or be active. If the spirometer includes an indicator to show the highest number that you have reached, your health care provider or respiratory therapist will help you set a goal. Keep a list (log) of your progress as told by your health care provider. What are the risks? ? Breathing too quickly may cause dizziness or cause you to pass out. Take your time so you do not get dizzy or light-headed. ? If you are in pain, you may need to take pain medicine before doing incentive spirometry. It is harder to take a deep breath if you are having pain. How to use your incentive spirometer 1. Sit up on the edge of your bed or on a chair. 2. Hold the incentive spirometer so that it is in an upright position. 3. Before you use the spirometer, breathe out normally. 4. Place the mouthpiece in your mouth. Make sure your lips are closed tightly around it. 5. Breathe in slowly and as deeply as you can through your mouth, causing the piston or the ball to rise toward the top of the chamber. 6. Hold your breath for 3?5 seconds, or for as long as possible. ? If the spirometer includes a women's soccer coach indicator, use this to guide you in breathing. Slow down your breathing if the indicator goes above the marked areas. 7. Remove the mouthpiece from your mouth and breathe out normally. The piston or ball will return to the bottom of the chamber. 8. Rest for a few seconds, then repeat the steps 10 or more times. ? Take your time and take a few normal breaths between deep breaths so that you do not get dizzy or light-headed. ? Do this every 1?2 hours when you are awake. 9. If the spirometer includes a goal marker to show the highest number you have reached (best effort), use this as a goal to work toward during each repetition. 10. After each set of 10 deep breaths, cough a few times. This will help to make sure that your lungs are clear. ? If you have an incision on your chest or abdomen from surgery, place a pillow or a rolled-up towel firmly against the incision when you cough. This can help to reduce pain from coughing. General tips ? When you become able to get out of bed, walk around often and continue to cough to help clear your lungs. ? Keep using the incentive spirometer until your health care provider says it is okay to stop using it. If you have been in the hospital, you may be told to keep using the spirometer at home. Contact a health care provider if: ? You are having difficulty using the spirometer. ? You have trouble using the spirometer as often as instructed. ? Your pain medicine is not giving enough relief for you to use the spirometer as told. ? You have a fever. ? You develop shortness of breath. Get help right away if: ? You develop a cough with bloody mucus from the lungs (bloody sputum). ? You have fluid or blood coming from an incision site after you cough. Summary ? An incentive spirometer is a tool that can help you learn to take long, deep breaths to keep your lungs clear and active. ? You may be asked to use a spirometer after a surgery, if you have a lung problem or a history of smoking, or if you have been inactive for a long period of time. ? Use your incentive spirometer as instructed every 1?2 hours while you are awake. ? If you have an incision on your chest or abdomen, place a pillow or a rolled-up towel firmly against your incision when you cough. This will help to reduce pain. This information is not intended to replace advice given to you by your health care provider. Make sure you discuss any questions you have with your health care provider. Document Released: 10/21/2007 Document Revised: 07/03/2018 Document Reviewed: 04/23/2018 Elsevier Patient Education ? 2019 Quantitative Medicine [facility]. [place], [place] Aiden Izquierdo MD, FACS POST OPERATIVE INSTRUCTIONS Regardless of how big or small the surgery you have had, your body and the wound(s) require time to heal. Please use common sense and limit your activity accordingly. If you are in doubt about a certain activity or it causes pain, DON?T DO IT, and ask your doctor about it at your next office visit. Keep the wound dry and covered for __48 hours. You may then remove the bandage and shower. Pat the area dry and either leave the wound open to air, or r (more content not included)... Normal [facility] Progress Note-Physicianon Progress Note-Physician Patient: RAJIV TOVAR Age: 25 years Sex: Female : 1995 Associated Diagnoses: None Author: Aiden IZQUIERDO MD Postoperative Information Date/ Time: 05/10/2020 10:26:00 Preoperative Diagnosis: Chronic cholecystitis with calculus (HQS10-VQ K80.10, Working, Medical). Postoperative Diagnosis: Same pending pathology. Procedure: Laparoscopic Cholecystectomy with intraoperative chloangiogram. Performed by: Aiden Izquierdo MD. Communications Editor: Ramandeep Araujo MD. Specimens Removed: Gallbladder. Estimated Blood Loss: 5 ml. Complications: None. Normal [facility] Comment on above: Result Comment: Elec tronically Signed By: Aiden IZQUIERDO MD\.br\Date and Time Signed: 05/10/20 10:27 EST Progress Note-Physician Patient: RAJIV TOVAR Age: 25 years Sex: Female : 1995 Associated Diagnoses: None Author: Aiden IZQUIERDO MD Basic Information No change in History and Physical Normal [facility] Comment on above: Result Comment: Elec tronically Signed By: Aiden IZQUIERDO MD\.br\Date and Time Signed: 05/10/20 09:11 EST XR Cholangiogram in ORon XR Cholangiogram in OR Exam Date/Time: 05/10/2020 10:05 EST Reason for Exam: Cholelithiasis Report IMPRESSION: BILIARY DUCTAL DILATATION, DOWN TO A SEGMENT OF THE DISTAL MOST COMMON BILE DUCT, WHICH IS NARROWED. THE ETIOLOGY OF THIS IS NOT SPECIFICALLY DETERMINED. SPASM COULD ACCOUNT FOR THIS NARROWING, BUT TINY DISTAL CHOLEDOCHAL CALCULI (WITH SPASM) ARE ALSO POSSIBLE. CLINICAL HISTORY: Cholelithiasis. COMMENT: Limited [id number] C-arm images were obtained in the OR, following the injection of contrast into the biliary ductal system via a cannula in the cystic duct. The central intrahepatic bile ducts and the extrahepatic bile ducts are contrast opacified and are dilated. There is tapering of the common bile duct within the pancreas. The distal most segment of the common bile duct is narrowed, extending to the choledochal sphincter. Spasm could account for this segmental narrowing, with tiny lucent choledochal calculi in this narrowed segment also possible. There is some retrograde filling of the distal pancreatic duct, which is not dilated. Other possible less common causes for segmental distal common bile duct narrowing include stricture or neoplasm. There is some flow of contrast into the duodenum. The radiation dose is 3.42 mGy. FINAL REPORT Dictated: 05/10/2020 10:18 am Isaiah Guo M.D. Signed (Electronic Signature): 05/10/2020 10:18 am Signed by: Isaiah Guo M.D. Transcribed by: OLGA Technologist: KIRSTIN Technical Comments Radiation Dose: Evaserenity in mGy = 3.4 Normal [facility] Coding Summary.on 05-08-2020 Coding Summary. CODING DATE: 05/07/2020 FINAL [facility] STATUS: Home (Routine DC) PAYOR: [place] ADMIT DX: REASON FOR VISIT DX: Z01.812 Encounter for preprocedural laboratory examination FINAL DX: PRINCIPAL: Z01.812 Encounter for preprocedural laboratory examination SECONDARY: PYMT PROC APC STAT DESCRIPTION DOCTOR NAME DATE NOTE: The code number assigned matches the documented diagnosis and / or procedure in the patient's chart. However, the narrative phrase printed from the coding software may appear abbreviated, or result in slightly different terminology. Coded By: Linda Jaquez CphT Date Saved: 05/07/2020 10:24 pm Normal [facility] Coding Summary.on 05-05-2020 Coding Summary. CODING DATE: 05/05/2020 FINAL [facility] STATUS: Home (Routine DC) PAYOR: Reba APC DESCRIPTION 5301 Level 1 Upper GI Procedures ADMIT DX: REASON FOR VISIT DX: R10.13 Epigastric pain FINAL DX: PRINCIPAL: R10.13 Epigastric pain SECONDARY: R10.11 Right upper quadrant pain F41.9 Anxiety disorder, unspecified PYMT PROC APC STAT DESCRIPTION DOCTOR NAME DATE [id number] Ezequiel WEST MD 04/29/2020 phagogastroduodenosco py, flexible, transoral; with biopsy, single or multiple [id number] Anesthesia for upper Husain Bakari Berry DO 04/29/2020 gastrointestinal endoscopic procedures, endoscope introduced proximal to duodenum; not otherwise specified NOTE: The code number assigned matches the documented diagnosis and / or procedure in the patient's chart. However, the narrative phrase printed from the coding software may appear abbreviated, or result in slightly different terminology. Revised Coded By: Eugenia Mae Revised Date Saved: 05/05/2020 11:48 am [facility] Consent for Procedure/Surger yon 05-05-2020 Consent for Procedure/Surgery [id number] .00CD:127 Normal [facility] Formson 05-05-2020 Forms [id number] .00CD:127 [facility] Priority Order-Mitchell 2019 Priority Order-STAT Comment Invalid Interpretation Code [facility] Comment on above: Result Comment: Rece ived Performed at: [facility] [address] [facility], [place] [id number] [facility] Johanny Lozano Performed By: #### 2 [id number], SARS-CoV-2, MARY #### [facility] [address] [place] [address] SARS-CoV-2, NAAon 05-05-2020 SARS-CoV-2 (COVID-19) RNA MARY+probe Ql (Resp) Not detected Invalid Interpretation Code Not Detected [facility] Comment on above: Result Comment: This nucleic acid amplification test was developed and its performance characteristics determined by [employer]. Nucleic acid amplification tests include PCR and TMA. This test has not been FDA cleared or approved. This test has been authorized by FDA under an Emergency Use Authorization (EUA). This test is only authorized for the duration of time the declaration that circumstances exist justifying the authorization of the emergency use of in vitro diagnostic tests for detection of SARS-CoV-2 virus and/or diagnosis of COVID-19 infection under section 564(b)(1) of the Act, 21 U.S.C. 360bbb-3(b) (1), unless the authorization is terminated or revoked sooner. When diagnostic testing is negative, the possibility of a false negative result should be considered in the context of a patient's recent exposures and the presence of clinical signs and symptoms consistent with COVID-19. An individual without symptoms of COVID-19 and who is not shedding SARS-CoV-2 virus would expect to have a negative (not detected) result in this assay. Performed at: [facility] [address] [facility] [facility] [place] [id number] MD Indira Washington Performed By: #### 2 [id number], SARS-CoV-2, MARY #### [facility] [address] [place] [address] B hCG Qualon 05-04-2020 Beta hCG Ql Negative Normal [facility] Comment on above: Performed By: #### 2 [id number] #### [facility] [address] [place] [address] CBC w/Indiceson 05-04-2020 Erythrocyte distribution width (RBC) [Ratio] 13.1 % Normal 10.9-14.2 [facility] Comment on above: Performed By: #### 2 [id number], [id number] ####[address] [address] Hematocrit (Bld) [Volume fraction] 40.5 % Normal 34.0-46.0 [facility] Comment on above: Performed By: #### 2 [id number], [id number] ####[address] [address] Hemoglobin (Bld) [Mass/Vol] 14.0 g/dL Normal 12.0-16.0 [facility] Comment on above: Performed By: #### 2 329879, [id number] ####[address] [address] MCH (RBC) [Entitic mass] 31.0 pg Normal 27.0-34.0 [facility] Comment on above: Performed By: #### 2 729333, [id number] ####[address] [address] MCHC (RBC) [Mass/Vol] 34.6 g/dL Normal 31.4-36.0 [facility] Comment on above: Performed By: #### 2 472736, 4249104 ####[address] [address] MCV (RBC) [Entitic vol] 89.7 fL Normal 80.0-100.0 [facility] Comment on above: Performed By: #### 2 222863, [id number] ####[address] [address] Platelet mean volume (Bld) [Entitic vol] 9.1 fL Normal 6.4-10.8 [facility] Comment on above: Performed By: #### 2 662907, 3026898 ####[address] [address] Platelets (Bld) [#/Vol] 245.0 E9/L Normal 150.0-500.0 [facility] Comment on above: Performed By: #### 2 925359, [id number] ####[place] [id number] RBC (Bld) [#/Vol] 4.5 E12/L Normal 4.3-5.9 [facility] Comment on above: Performed By: #### 2 744730, 6637153 ####[facility] [address] [place] [address] WBC corrected for nucl RBC Auto (Bld) [#/Vol] 5.6 E9/L Normal 4.0-11.0 [facility] Comment on above: Performed By: #### 2 316066, 5808356 ####[facility] [address] [place] [address] Consent for Treatmenton 04-24 Consent for Treatment [id number] .00CD:127 Normal [facility] Hep Func Panelon 05-04-2020 Albumin [Mass/Vol] 4.2 g/dL Normal 3.3-5.0 [facility] Comment on above: Order Comment: if no t already done. Performed By: #### 2 480550, [id number] ####[facility] [address] [place] [address] Albumin/Globulin (S) [Mass conc ratio] 1.4 Normal 1.1-2.2 [facility] Comment on above: Order Comment: if no t already done. Performed By: #### 2 067179, 0986752 ####[facility] [address] [place] [address] ALP [Catalytic activity/Vol] 112 Int._Unit/L High 21-98 [facility] Comment on above: Order Comment: if no t already done. Performed By: #### 2 598616, [id number] ####[facility] [address] [place] [address] ALT No additional P-5'-P [Catalytic activity/Vol] 129 Int._Unit/L High 6-46 [facility] Comment on above: Order Comment: if no t already done. Performed By: #### 2 318401, 6229777 ####[facility] [address] [place] [address] AST [Catalytic activity/Vol] 28 Int._Unit/L Normal 5-43 [facility] Comment on above: Order Comment: if no t already done. Performed By: #### 2 089605, 6599472 ####[facility] [address] [place] [address] Bilirubin [Mass/Vol] 0.7 mg/dL Normal 0.0-1.1 [facility] Comment on above: Order Comment: if no t already done. Performed By: #### 2 576915, 9921803 ####[address] [address] Bilirubin.direct [Mass/Vol] 0.1 mg/dL Normal 0.1-0.4 [facility] Comment on above: Order Comment: if no t already done. Performed By: #### 2 696871, [id number] ####[facility] [address] [place] [address] Bilirubin.indirect [Mass or moles/Vol] 0.6 mg/dL Normal 0.1-0.9 [facility] Comment on above: Order Comment: if no t already done. Performed By: #### 2 747604, [id number] ####[facility] [address] [place] [address] Globulin (S) [Mass/Vol] 3.1 g/dL Normal 1.4-4.0 [facility] Comment on above: Order Comment: if no t already done. Performed By: #### 2 250358, 2636380 ####[facility] [address] [place] [address] Protein [Mass/Vol] 7.3 g/dL Normal 6.0-7.8 [facility] Comment on above: Order Comment: if no t already done. Performed By: #### 2 171952, 9135629 ####[facility] [address] [place] [address] Ambulatory Clinical Summaryo n 05-03-2020 Ambulatory Clinical Summary {[id number]}CD:[id number] [facility] Consent for Procedure/Surger yon 05-03-2020 Consent for Procedure/Surgery [id number] .00CD:127 [facility] Consent for Procedure/Surgery [id number] .00CD:127 [facility] Formson 05-03-2020 Forms [id number] .00CD:127 [facility] Forms [id number] .00CD:127 [facility] Physician Orderon 05-03-2020 Physician Order [id number] .00CD:127 [facility] Physician Referralon 020 Physician Referral [id number] .00CD:127 [facility] Postoperative Documentson Postoperative Documents [id number]# 1.00CD:127 [facility] Progress Note-Physicianon Progress Note-Physician Patient: RAJIV TOVAR Age: 25 years Sex: Female : 1995 Associated Diagnoses: None Author: Bakari Husain Jr, DO Preoperative Information Anesthesia Preop Information NPO 8 HOURS EXCEPT GI PREP AT LEAST 4 HOURS PRIOR TO PROCEDURE Anesthesia history: Patient history: No prior anesthesia problems. Re-evaluation prior to induction: Initial evaluation reviewed: No significant change. Anesthesia results Review of Systems Cardiovascular: Negative. Respiratory: Negative. Health Status Allergies: Allergic Reactions (Selected) Severity Not Documented HYDROcodone- Hives. OxyCODONE- Hives. Penicillin- Hives. Current medications: (Selected) Inpatient Medications Ordered Sodium Chloride 0.9% IV Ara 1000 mL 1,000 mL: 1,000 mL, IV, 20 mL/hr, Routine, Start date 04/29/20 10:32:00 EST, 50 hour(s), Total volume (mL): 1,000, 59.5 kg, 1.65, m2 Prescriptions Prescribed Zofran ODT 4 mg Tab: 4 mg = 1 tab(s), Oral, TID, # 10 tab(s), Refills(s) 0, Pharmacy: [facility]/pharmacy #[id number], 168, cm, 04/19/20 6:20:00 EDT, Height/Length Dosing, 58.5, kg, 04/19/20 6:20:00 EDT, Weight Dosing omeprazole 40 mg Cap-DR: 40 mg = 1 cap(s), Oral, Daily, # 30 cap(s), Refills(s) 2, Pharmacy: [facility]/pharmacy #[id number], 168, cm, 04/20/20 10:06:00 EDT, Height/Length Dosing, 59.5, kg, 04/20/20 10:06:00 EDT, Weight Dosing Documented Medications Documented dicyclomine 20 mg Tab: 20 mg = 1 tab(s), Oral, TID, PRN Pain, Refills(s) 0, Home Medications (3) Active dicyclomine 20 mg Tab 20 mg = 1 tab(s), PRN, Oral, TID omeprazole 40 mg Cap-DR 40 mg = 1 cap(s), Oral, Daily Zofran ODT 4 mg Tab 4 mg = 1 tab(s), Oral, TID Problem list: No problem items selected or recorded. Histories Past Medical History: No active or resolved past medical history items have been selected or recorded. Social History Social & Psychosocial Habits Alcohol 04/19/2020 Use: Current Comment: Denies - 04/19/2020 06:50 - Christiana Cuevas RN Substance Abuse 04/19/2020 Use: Current Comment: Denies - 04/19/2020 06:50 - Christiana Cuevas RN Tobacco 04/19/2020 Tobacco Use: Never (less than 100 in l Type: Cigarettes 04/20/2020 Tobacco Use: Never (less than 100 in l . Physical Examination Airway: Mallampati classification: II (soft palate, fauces, uvula visible). Respiratory: Lungs are clear to auscultation. Cardiovascular: Regular rhythm. Neurologic: Alert, Oriented. Plan [place] [employer] (ASA) physical status classification: Class II. Anesthetic Preoperative Plan Anesthesia: General. . Anesthetic plan, risks, benefits, and alternatives discussed with the patient and/or family. Communication: face to face with (patient 5 minutes, Patient educated on smoking cesstation). Normal [facility] Comment on above: Result Comment: Elec tronically Signed By: Bakari Husain Jr, DO\.br\Date and Time Signed: 05/03/20 09:37 EST Progress Note-Physician Patient: RAJIV TOVAR Age: 25 years Sex: Female : 1995 Associated Diagnoses: None Author: Bakari Husain Jr, DO Postoperative Information Post Operative Note: Post Anesthesia Care Unit. Anesthetic utilized: Monitored anesthesia care. Health Status Allergies: Allergic Reactions (Selected) Severity Not Documented HYDROcodone- Hives. OxyCODONE- Hives. Penicillin- Hives. Problem list: No problem items selected or recorded. Physical Examination Vital Signs 04/29/2020 11:15 EST Heart Rate Monitored 97 bpm Respiratory Rate Monitored 18 br/min Systolic Blood Pressure 134 mmHg Diastolic Blood Pressure 88 mmHg Mean Arterial Pressure, Cuff 103 mmHg SpO2 100 % 04/29/2020 11:10 EST Heart Rate Monitored 96 bpm Respiratory Rate Monitored 17 br/min Systolic Blood Pressure 127 mmHg Diastolic Blood Pressure 85 mmHg Mean Arterial Pressure, Cuff 99 mmHg SpO2 100 % 04/29/2020 11:05 EST Temperature Temporal Artery 36.6 DegC Heart Rate Monitored 105 bpm HI Respiratory Rate Monitored 16 br/min (Modified) Systolic Blood Pressure 124 mmHg Diastolic Blood Pressure 81 mmHg Blood Pressure Location Left arm Mean Arterial Pressure, Cuff 95 mmHg SpO2 99 % 04/29/2020 11:00 EST Heart Rate Monitored 112 bpm bpm Respiratory Rate Monitored 26 br/min br/min SpO2 100 % % 04/29/2020 10:55 EST Heart Rate Monitored 95 bpm bpm Systolic Blood Pressure 122 mmHg mmHg Diastolic Blood Pressure 81 mmHg mmHg SpO2 100 % % 04/29/2020 10:52 EST Systolic Blood Pressure 135 mmHg mmHg Diastolic Blood Pressure 88 mmHg mmHg 04/29/2020 10:21 EST Temperature Temporal Artery 37.2 DegC Heart Rate Monitored 79 bpm Systolic Blood Pressure 117 mmHg Diastolic Blood Pressure 84 mmHg Mean Arterial Pressure, Cuff 95 mmHg SpO2 100 % Vital Signs (last 24 hrs) Last Charted Resp Rate 18 br/min (APR 29:) SBP 134 mmHg (APR 29:) DBP 88 mmHg (APR 29:) SpO2 100 % (APR 29:) Weight 59.5 kg (APR 29:) Height 165 cm (APR 29:) Documented vital signs Pain assessment: Pain Assessment 04/29/2020 11:05 EST Numeric Pain Scale 0 = No pain . General: Alert and oriented, No acute distress. Respiratory: Lungs are clear to auscultation. Cardiovascular: Normal rate, Regular rhythm. Neurologic: Normal sensory. Review / Management Condition: Stable. Assessment Anesthetic outcome No anesthetic complications noted. Adequate pain relief. TOLERATING PO INTAKE. voiding w/o diff.. No Complaint of nausea and vomiting. Plan Transfer/ Discharge: Condition stable. Normal [facility] Comment on above: Result Comment: Elec tronically Signed By: Rodrigue Berry DO, Bakari Cummings\.br\Date and Time Signed: 05/03/20 09:37 EST Consenton 05-02-2020 Consent [id number] .00CD:127 Normal [facility] Discharge Instructionson Discharge Instructions [id number] .00CD:127 Normal [facility] General Surgery Office/Clini c Noteon 05-02-2020 General Surgery Office/Clinic Note Chief Complaint biliary dyskenesia History of Present Illness pt presents for consultation regarding right upper quadrant pain. pt complains of nausea, RUQ abdominal pain into back, sensitivity to greasy, spicery foods for the last 2 months, attacks flaring the last 2-3 weeks. US abdomen on 04/19 showing small, partially contracted gallbladder. pt has been following Dr. Martinez for these symptoms and had an EGD which did not reveal any abnormalities of concern or that would explain her pains. He referred her here for surgical evaluation. Review of Systems ROS - Constitutional: no fever, no sweats, no weight loss. Eyes: yes glasses, no blurred vision, no visual loss. ENMT: no dentures, no hoarseness, no swallowing difficulties, no hearing loss, no ear infection(s), no nose bleeds. Cardiovascular: normal blood pressure, no chest pain, regular heartbeat, no heart murmur. Respiratory: no shortness of breath, no cough, no wheezing , no asthma . Gastrointestinal: yes nausea, no vomiting, no diarrhea, no constipation, no blood in stool, no change in bowel habits, yes abdominal pain, no hepatitis. Genitourinary: no kidney stones, no urine infection, no difficulty passing urine. Musculoskeletal: no pain, no weakness. Skin: no changing moles, no rash, no skin lumps. Neurologic: no seizures, no epilepsy, no headache. Psychiatric: no emotional, no psychiatric problem. Endocrine: no thyroid, no diabetes. Heme/Lymph: no bleeding problems, no anemia, no blood clots, no transfusions. Allergy/Immunologic: no swollen lymph nodes/glands, no IV drug abuse. Other: Additional ROS info: Except as noted in the above Review of Systems and in the History of Present Illness, all other systems have been reviewed and are negative or noncontributory. Written by Mildred Cook CMA, acting as scribe for Aiden Izquierdo M.D. This note accurately reflects work and decisions made by the physician. Physical Exam Vitals & Measurements T: 36.7 ?C (Temporal Artery) HR: 100(Peripheral) RR: 14 BP: 118/82 HT: 165.0 cm HT: 165 cm WT: 59.4 kg WT: 59.4 kg BMI: 21.82 Eyes: normal conjunctiva, sclera clear, no scleral icterus, EOM intact. Neck: trachea midline , no mass, symmetric, no thyromegaly or nodules. Respiratory: respirations non labored. . Gastrointestinal: soft, non distended, no tenderness, no masses, no palpable hernias, well-healed Pfannenstiel incision. . Musculoskeletal: normal gait, digits and nails without infection, nodes, cyanosis, clubbing. Skin: no rashes, no lesions, no ulcers, no subcutaneous nodules, induration. Psychiatric/Neuro: oriented to time, place, person, judgement normal, affect appropriate for age, insight intact, no focal deficits. Tests: labs reviewed, x-rays reviewed, review of old records completed._, pt info booklet reviewed and given _. _ surgical options, risks, and possible complications discussed with patient. Gallbladder ultrasound revealed a filling defect felt to either represent a polyp, nonshadowing stone, or sludge. Whether this is the cause of her pain is difficult to determine. However given a normal EGD her gallbladder is most likely the source of her complaints. Patient was offered a laparoscopic cholecystectomy with the understanding that it may not alleviate her symptoms, however I believe it most likely will. Patient agreed to proceed with surgery. All questions were answered and consent obtained. Assessment/Plan 1. Biliary dyskinesia (K82.8: Other specified diseases of gallbladder) Schedule lap choly Follow-up With When Contact Information TIMBO POLK, Aiden Davila [address] [place] [address]- Additional Instructions: F/U POST OP. Problem List/Past Medical History Ongoing No qualifying data Historical No qualifying data Medications dicyclomine 20 mg Tab, 20 mg= 1 tab(s), Oral, TID, PRN, Not taking duloxetine omeprazole 40 mg Cap-DR, 40 mg= 1 cap(s), Oral, Daily, 2 refills, Not taking: patient hasnt started Rx Zofran ODT 4 mg Tab, 4 mg= 1 tab(s), Oral, TID Allergies HYDROcodone (Hives) oxyCODONE (Hives) penicillin (Hives) Social History Alcohol Current, 04/19/2020 Substance Abuse Current, 04/19/2020 Tobacco Never (less than 100 in lifetime) Tobacco Use:., 05/02/2020 Never (less than 100 in lifetime) Tobacco Use:., 04/20/2020 Never (less than 100 in lifetime) Tobacco Use:. Cigarettes, 04/19/2020 Family History Family history is negative Normal [facility] Comment on above: Result Comment: Elec tronically Signed By: Aiden IZQUIERDO MD\.br\Date and Time Signed: 05/02/20 15:39 EST\.br\Electronically Co-Signed By: Mildred Cook MA\.br\Date and Time Co-Signed: 05/02/20 15:25 EST IntraOperative Documentson 1 07-02-2019 IntraOperative Documents [id number] .[id number]:127 Normal [facility] IntraOperative Documents [id number] .[id number]:127 Normal [facility] Main OR Intraoperative Recor don 05-02-2020 Main OR Intraoperative Record IntraOp Document Type FT Summary Primary Physician: Ezequiel MARTINEZ MD Finalized Date/Time: 05/02/20 08:23:39 Pt. Name: RAJIV TOVAR/Sex: 1995 Female Med Rec #: [id number] Physician: Ezequiel MARTINEZ MD Financial #: [id number] Pt. Type: O Room/Bed: / Admit/Disch: 04/29/20 10:12:58 - 04/29/20 23:59:59 Institution: Case Times FT Entry 1 Patient Times In Room 04/29/20 10:52:00 Out Room 04/29/20 11:04:00 Procedure Times Start 04/29/20 10:56:00 Stop 04/29/20 10:59:00 Anesthesia Times Start 04/29/20 10:52:00 Stop 04/29/20 11:04:00 Last Modified By: Russell Maloney RN 04/29/20 11:04:12 General Comments: 05/02/2020 Chart opened to review and send charges. Angela Leavitt CST. Case Attendance FT Entry 1 Entry 2 Entry 3 Case Attendee Rodrigue Berry DO, Bakari MARTINEZ MD, Ezequiel Maloney RN, Russell Canada Role Performed Anesthesiologist of Surgeon - Primary Tiler - Primary Record Time In 04/29/20 10:52:00 04/29/20 10:52:00 04/29/20 10:52:00 Time Out 04/29/20 11:04:00 04/29/20 11:04:00 04/29/20 11:04:00 Procedure EGD(.) EGD(.) EGD(.) Comments Last Modified By: Haider TURNER, Rusesll Maloney RN, Russell Maloney RN, Russell Canada 04/29/20 11:04:13 04/29/20 11:04:13 04/29/20 11:04:13 Entry 4 Entry 5 Entry 6 Case Attendee Mere TURNER, Geno Garcia, Charlotte Bal CSTAria Role Performed Tiler - Primary Scrub - Primary Staff - Other Time In 04/29/20 10:52:00 04/29/20 10:52:00 04/29/20 10:57:00 Time Out 04/29/20 11:04:00 04/29/20 11:04:00 04/29/20 11:04:00 Procedure EGD(.) EGD(.) EGD(.) Comments Help in room. Last Modified By: Russell Maloney RN, RN, Russell Santos RN 04/29/20 11:04:13 04/29/20 11:04:13 04/29/20 11:04:44 Perioperative Protocols FT Pre-Care Text: Implements protective measures prior to operative or invasive procedure, confirms identity before the operative or invasive procedure, verifies operative procedure, surgical site, and laterality Entry 1 Procedure(s) EGD(.) Patient Identity Birthday, ID Band Verified (select at Check, Patient least 2): Participation Consents / H and P Anesthesia Consent, Operative Site N/A Verified HandP, Surgery/Procedure Marking Verified Consent Surgical Site No Laterality Verified n/a Verified Procedure Verified Yes Correct Patient Yes Position Verified Availability Equipment, Medication Prep Dry n/a Verified (If Applicable) PreOp Antibiotic No Time Out Rodrigue Berry DO, Bakari Cummings, Given Participants Ezequiel MARTINEZ MD, Souter RN, Mere Costello RN, Jose Mendez Kirstyn K Time Out Complete 04/29/20 10:54:00 Outcomes Met? Yes Last Modified By: Russell Maloney RN 04/29/20 11:04:55 Post-Care Text: The patient is free from signs and symptoms of injury caused by extraneous objects Allergy Information FT Pre-Care Text: Verifies allergies Entry 1 Allergies Reviewed? Yes Allergies Reviewed Self/Patient With Outcomes Met? Yes Last Modified By: Russell Maloney RN 04/29/20 07:12:37 Post-Care Text: The patient received appropriate medication(s) safely administered during the perioperative period Surgical Procedures FT Entry 1 Procedure Description Procedure EGD Modifiers . Surgeon Description EGD with zline nodual biopsy. Primary Procedure Yes Primary Surgeon Ezequiel MARTINEZ MD Start 04/29/20 10:56:00 Stop 04/29/20 10:59:00 Anesthesia Type General Surgical Service Gastroenterology Wound Class 2 - Clean-Contaminated Last Modified By: Russell Maloney RN 04/29/20 11:05:05 General Case Data FT Pre-Care Text: Classifies surgical wound, implements aseptic technique, initiates traffic control Entry 1 Case Information OR ENDO 1 FT Case Level Level 2 Wound Class 2 - Clean-Contaminated Specialty Gastroenterology ASA Class 2 Preop Diagnosis RUQ PAIN Postop Same As Preop No Postop Diagnosis Zline nodual, Hiatal Outcomes Met? Yes hernia Last Modified By: Russell Maloney RN 04/29/20 10:58:48 Post-Care Text: The patient is free from signs and symptoms of infection Skin Assessment (Pre Procedure) FT Pre-Care Text: Implements protective measures to prevent skin/ tissue injury due to thermal or mechanical sources Evaluates for signs and symptoms of physical injury to skin and tissue Entry 1 Skin Integrity Dry, Warm Skin Abnormality No Outcomes Met? Yes Last Modified By: Rsusell Maloney RN 04/29/20 07:13:03 Post-Care Text: The patient is free from signs and symptoms of injury caused by extraneous objects Patient Positioning FT Pre-Care Text: Identifies physical alterations that require additional precautions for procedure-specific positioning, verifies presence of prosthetics or corrective devices, positions the patient, evaluates the patient for signs and symptoms of injury as a result of positioning Entry 1 Procedure EGD(.) Body Position Lateral, right side up Feet Uncrossed? Yes Left Arm Position Resting at Side Right Arm P (more content not included)... Normal [facility] Ezequiel Martinez M.D. [address] [place] [address] Re: RAJIV TOVAR Date of : 1995 Dear Ezequiel I saw Rajiv Tovar in my office today. Thank you for this referral. As you know Rajiv has been having fairly classic right upper quadrant biliary pain for the past several months that has increased in frequency and intensity over time. Her gallbladder ultrasound was inconclusive showing either a nonshadowing stone, polyp, or sludge. As her EGD was unremarkable and did not show any findings that would explain her symptoms, I agree a cholecystectomy would be beneficial. The procedure was discussed and consent obtained. She is scheduled for surgery later this month. Thank you for allowing me to participate in the care of Rajiv Tovar. I will send you a copy of her operative report following her procedure. Sincerely Aiden Kaplan [facility] Coding Summary.on 04-30-2020 Coding Summary. CODING DATE: 04/29/[address] [facility] STATUS: Home (Routine DC) PAYOR: [place] ADMIT DX: REASON FOR VISIT DX: Z01.812 Encounter for preprocedural laboratory examination FINAL DX: PRINCIPAL: Z01.812 Encounter for preprocedural laboratory examination SECONDARY: Z11.59 Encounter for screening for other viral diseases R10.11 Right upper quadrant pain PYMT PROC APC STAT DESCRIPTION DOCTOR NAME DATE NOTE: The code number assigned matches the documented diagnosis and / or procedure in the patient's chart. However, the narrative phrase printed from the coding software may appear abbreviated, or result in slightly different terminology. Coded By: Linda Jaquez CphT Date Saved: 04/29/2020 11:14 pm [facility] Consent for Treatmenton Consent for Treatment [id number] .00CD:127 [facility] Endoscopic Procedure Report - Otheron 04-29-2020 Endoscopic Procedure Report - Other Patient: RAJIV TOVAR Age: 25 years Sex: Female : 1995 Associated Diagnoses: None Author: Ezequiel MARTINEZ MD Pre-Procedure Procedure Date 04/29/2020 11:01:00 . Procedure Type: Esophagogastroduodeno scopy. Procedure provider Performed by Ezequiel Martinez MD. Current history and physical Documented on chart. Informed Consent After discussing the rationale, risks and benefits, and alternatives to this procedure, the patient provided signed consent for the procedure. Pre-procedure diagnosis: Epigastric pain. Right upper quadrant pain. Medications Anticoagulant/antipla telet None. Antibiotic prophylaxis None. ASA Classification: Class II. . Monitoring: See anesthesia record. . Procedure The procedure was performed in the hospital. See anesthesia record for sedation given during procedure. The patient was positioned starting in the left lateral decubitus position and with safety measures. Endoscope type used was an adult-size, introduced orally, advanced to the 2nd portion of the duodenum. No difficulty was encountered during the procedure. Views were excellent. The patient tolerated the procedure well. Findings 1. Normal esophagus, soft nodule, 5 mm, at the Z-line, biopsied 2. Normal gastric and duodenal mucosa with no evidence of peptic ulcer disease Images Procedure images: Nodule at the Z-line Nodule at the Z-line Duodenum Fundus Nodule at the Z-line . Post-Procedure Complications: none. Estimated blood loss: none. Specimens: sent to pathology. Devices/ implants: none left in place. Impression and Plan 1. Normal esophagus, soft nodule, 5 mm, at the Z-line, biopsied 2. Normal gastric and duodenal mucosa with no evidence of peptic ulcer disease Recommendations: Follow-up in GI clinic in 2 weeks Consults surgery for right upper quadrant pain/cholelithiasis Normal [facility] Comment on above: Result Comment: Elec tronically Signed By: Ezequiel MARTINEZ MD\.br\Date and Time Signed: 04/29/20 11:03 EST Other Comment: Lorri frazier Attachment - attachment storage system not supported [id number] Can be viewed in source systemMissing Attachment - attachment storage system not supported [id number] Can be viewed in source systemMissing Attachment - attachment storage system not supported [id number] Can be viewed in source systemMissing Attachment - attachment storage system not supported [id number] Can be viewed in source systemMissing Attachment - attachment storage system not supported [id number] Can be viewed in source system Inpatient Patient Summaryon 04-29-2020 Inpatient Patient Summary [address] [address] [facility] Clinical Discharge Instructions PERSON INFORMATION Name: RAJIV TOVAR PHYSICIANS Admitting Physician: Ezequiel MARTINEZ MD Attending Physician: Ezequiel MARTINEZ MD PCP: Alon Weber MD Discharge Diagnosis: Abdominal pain Comment: PATIENT EDUCATION INFORMATION Instructions: Medication Leaflets: Follow up: With: Address: When: Aiden IZQUIERDO [address] [place] [address], [address] [place] [address] Business (1) With: Address: When: [facility] [address] [place] [address] Within 2 weeks Type Location Start [facility] Follow Up [facility] 05/16/2020 1:00 PM 05/16/2020 1:15 PM Confirmed MEDICATION LIST Medications to Continue with No Changes Other Medications dicyclomine (dicyclomine 20 mg Tab) 1 Tablets By Mouth 3 times a day as needed Pain. omeprazole (omeprazole 40 mg Cap-DR) 1 Capsules By Mouth every day. Refills: 2. ondansetron (Zofran ODT 4 mg Tab) 1 Tablets By Mouth 3 times a day. Refills: 0. Comment: Normal [facility] Main OR PACU I [facility]ordon Main OR PACU I Record PACU Phase I Document Type FT Summary Primary Physician: Ezequiel MARTINEZ MD Finalized Date/Time: 04/29/20 12:13:51 Pt. Name: RAJIV TOVAR/Sex: 1995 Female Med Rec #: [id number] Physician: Ezequiel MARTINEZ MD Financial #: [id number] Pt. Type: O Room/Bed: / Admit/Disch: 04/29/20 10:12:58 - Institution: Case Times PACU I FT Pre-Care Text: Identifies barriers to communication and implements measures to provide psychological support Develops individualized plan of care, and ensures continuity of care Maintains patient's dignity and privacy, and maintains patient confidentiality Identifies and reports philosophical, cultural, and spiritual beliefs and values Identifies individual values and wishes concerning care Implements aseptic technique, and administers prescribed antibiotic therapy and immunizing agents as ordered Evaluates postoperative tissue perfusion Implements thermoregulation measures, and monitors body temperature Evaluates postoperative respiratory status Evaluates postoperative cardiac status Evaluates postoperative neurological status Assesses pain control, collaborated in initiating patient-controlled analgesia and implements alternative methods of pain control Verifies allergies, administers prescribed medications and solutions, evaluates response to medications Entry 1 In PACU I 04/29/20 11:05:00 Discharge from PACU 04/29/20 11:35:00 I Outcomes Met? Yes Last Modified By: Belkys Yarbrough RN 04/29/20 12:13:36 Post-Care Text: The patient demonstrates knowledge of the expected response to the operative or invasive procedure The patient's care is consistent with the individualized perioperative plan of care The patient's right to privacy is maintained The patient's value system, lifestyle, ethnicity, and culture are considered, respected, and incorporated into the perioperative plan of care The patient participates in decisions affecting his or her perioperative plan of care The patient is free from signs and symptoms of infection The patient has wound/tissue perfusion consistent with or improved from baseline levels established preoperatively The patient is at or returning to normothermia at the conclusion of the immediate postoperative period The patient's respiratory function is consistent with or improved from baseline levels established preoperatively The patient's cardiovascular status is consistent with or improved from baseline levels established preoperatively The patient's cardiovascular status is consistent with or improved from baseline levels established preoperatively The patient demonstrates and/or reports adequate pain control throughout the perioperative period The patient received appropriate medication(s), safely administered during the perioperative period Acuity Level PACU I FT Entry 1 Start Time 04/29/20 11:05:00 Stop Time 04/29/20 11:35:00 Acuity Level Acuity Level I Last Modified By: Belkys Yarbrough RN 04/29/20 12:13:49 Finalized By: Belkys Yarbrough RN Document Signatures Signed By: Belkys Yarbrough RN 04/29/20 12:13 Normal [facility] Main OR Preoperative Recordo n 04-29-2020 Main OR Preoperative Record Holding Area Document Type FT Summary Primary Physician: Ezequiel MARTINEZ MD Finalized Date/Time: 04/29/20 10:21:44 Pt. Name: RAJIV TOVAR/Sex: 1995 Female Med Rec #: [id number] Physician: Ezequiel MARTINEZ MD Financial #: [id number] Pt. Type: O Room/Bed: / Admit/Disch: 04/29/20 10:12:58 - Institution: Case Times Holding FT Pre-Care Text: Verifies consent for planned procedure, identifies individual values and wishes concerning care, includes family members in perioperative teaching Secures patient's records' belongings, and valuables, maintains patient's dignity and privacy, and maintains patient confidentiality Entry 1 In Holding 04/29/20 10:20:00 Outcomes Met? Yes Last Modified By: Marielle Pineda RN 04/29/20 10:20:52 Post-Care Text: The patient participates in decisions affecting his or her perioperative plan of care The patient's right to privacy is maintained Surgery Checklist FT Entry 1 Patient Birthday, ID Band Procedure History and Physical, Identification: Check, Patient Verification: Surgical Consent, With Participation Patient NPO after Midnight: Yes Date/Time: 04/28/20 23:00:00 Personal Items: Glasses, Jewelry Complaints of Pain: Yes Pain Comment: 10/01 right upper Operative Site n/a quadrant Marking: Availability Equipment Verified: Does Patient Smoke No Patient states Yes Comment - 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 Supervision supervision available Case Cancelled in No Holding Area see comments below for reason Last Modified By: Marielle Pineda RN 04/29/20 10:21:43 Finalized By: Marielle Pineda RN Document Signatures Signed By: Marielle Pineda RN 04/29/20 10:21 Normal [facility] Monitor Recordon 04-29-2020 Monitor Record [id number]:127 Normal [facility] Outpatient Surgery Discharge Instructionon 04-29-2020 Outpatient Surgery Discharge Instruction [place] [id number] Patient Discharge Instructions PERSON INFORMATION Name: RAJIV TOVAR Date of : 1995 Current Date: 04/29/2020 11:04:47 PHYSICIANS Admitting Physician: Ezequiel MARTINEZ MD Discharge Diagnosis: Abdominal pain RAJIV TOVAR has been given the following list of follow-up instructions, prescriptions, and patient education materials: PATIENT FOLLOW-UP INFORMATION Diet: Regular Discharge Activity: Resume normal activities in 24 hours Discharge Restrictions: No driving for 24 hrs, Do not operate machinery or tools, Do not make important decisions for 24 hours IF UNABLE TO CONTACT YOUR PHYSICIAN AND YOU FEEL IT IS AN EMERGENCY, GO TO THE NEAREST EMERGENCY ROOM OR CALL 911 I, AKHILRAJIV CORBNI, have received the attached patient education materials/instruction s and have verbalized understanding: May we do a follow up call? Yes No I was present when discharge instructions were given Patient Signature Date Clinican/Nurse Signature Date Follow up: With: Address: When: Aiden IZQUIERDO [address] [place] [address] Business (1) With: Address: When: [facility] [address] [place] [address] Within 2 weeks Type Location Start [facility] Follow Up [facility] 05/16/2020 1:00 PM 05/16/2020 1:15 PM Confirmed Pharmacy Information: Thank you for choosing [facility] HERE ARE THE MEDICATION CHANGES THAT OCCURRED DURING YOUR HOSPITAL STAY Medications to Continue with No Changes Other Medications dicyclomine (dicyclomine 20 mg Tab) 1 Tablets By Mouth 3 times a day as needed Pain. omeprazole (omeprazole 40 mg Cap-DR) 1 Capsules By Mouth every day. Refills: 2. ondansetron (Zofran ODT 4 mg Tab) 1 Tablets By Mouth 3 times a day. Refills: 0. PATIENT EDUCATION INFORMATION Instructions: Normal [facility] Patient Education - Texton 1 06-29-2019 Patient Education - Text Normal [facility] Priority Order-Mitchell 2019 Priority Order-STAT Comment Invalid Interpretation Code [facility] Comment on above: Result Comment: Rece ived Performed at: [facility] [address] [place], [place] [id number] MD Indira Washington Performed By: #### 2 [id number], SARS-CoV-2, MARY #### [facility] [address] [place] [address] SARS-CoV-2, NAAon 04-23-2020 SARS-CoV-2 (COVID-19) RNA MARY+probe Ql (Resp) Not detected Invalid Interpretation Code Not Detected [facility] Comment on above: Result Comment: This nucleic acid amplification test was developed and its performance characteristics determined by [employer]. Nucleic acid amplification tests include PCR and TMA. This test has not been FDA cleared or approved. This test has been authorized by FDA under an Emergency Use Authorization (EUA). This test is only authorized for the duration of time the declaration that circumstances exist justifying the authorization of the emergency use of in vitro diagnostic tests for detection of SARS-CoV-2 virus and/or diagnosis of COVID-19 infection under section 564(b)(1) of the Act, 21 U.S.C. 360bbb-3(b) (1), unless the authorization is terminated or revoked sooner. When diagnostic testing is negative, the possibility of a false negative result should be considered in the context of a patient's recent exposures and the presence of clinical signs and symptoms consistent with COVID-19. An individual without symptoms of COVID-19 and who is not shedding SARS-CoV-2 virus would expect to have a negative (not detected) result in this assay. Performed at: [facility] [email or web address] [place], [place] [id number] MD Indira Washington Performed By: #### 2 [id number], SARS-CoV-2, MARY #### [facility] [address] [place] [address] Ambulatory Clinical Summaryo n 04-20-2020 Ambulatory Clinical Summary {[id number]}CD:[id number] Normal [facility] Coding Summary.on 04-20-2020 Coding Summary. CODING DATE: 04/20/2020 FINAL [facility] STATUS: Home (Routine DC) PAYOR: Reba APC DESCRIPTION 5522 Level 2 Imaging without Contrast 5693 Level 3 Drug Administration 5691 Level 1 Drug Administration 5024 Level 4 Type A ED Visits ADMIT DX: REASON FOR VISIT DX: R10.11 Right upper quadrant pain FINAL DX: PRINCIPAL: K80.20 Calculus of gallbladder without cholecystitis without obstruction SECONDARY: K80.50 Calculus of bile duct without cholangitis or cholecystitis without obstruction PYMT PROC APC STAT DESCRIPTION DOCTOR NAME DATE NOTE: The code number assigned matches the documented diagnosis and / or procedure in the patient's chart. However, the narrative phrase printed from the coding software may appear abbreviated, or result in slightly different terminology. Revised Coded By: Lissa Bond Revised Date Saved: 04/20/2020 07:55 am Normal [facility] Consent for Procedure/Surger yon 04-20-2020 Consent for Procedure/Surgery [id number] .00CD:127 Normal [facility] Gastroenterology Office/Clin ic Noteon 04-20-2020 Gastroenterology Office/Clinic Note Chief Complaint f/u to ER RUQ HPI Staff This is a 24 year old female who presents today for a follow up for an ED visit for RUQ pain. History of Present Illness 24 years old white female with no significant past medical history except for anxiety, referred to me from [facility] to be evaluated for right upper quadrant abdominal pain, she reports right upper quadrant abdominal pain, started 6 weeks ago, sporadic, moderate in nature except for the last time when it was severe for which she went to [facility], she had normal CBC, CMP and lipase, ultrasound revealed a 7 mm lesion in the gallbladder(nonshadow ing stones versus polyp), discharge home with Bentyl, reports no fever chills, no diarrhea, constipation or rectal bleeding, reports mild nausea but no heartburn, no dysphagia, she has significant anxiety at work Review of Systems PHQ Score Initial Depression Screen Score: 0 Constitutional: no fever, no chills, no sweats, no weakness Skin: no Jaundice, no rash, no lesions, no petechiae ENMT: no ear pain, no sore throat, no congestion, no hoarseness Respiratory: no shortness of breath, no cough, no orthopnea, no wheezing Cardiovascular: no chest pain, no palpitations, no edema Gastrointestinal: no nausea, no vomiting, no diarrhea, no Constipation noGI bleeding yes abd pain no dysphagia no bloating no heartburn Genitourinary: no dysuria, no hematuria, no discharge, no pain Musculoskeletal: no back pain, no trauma Neurologic: no numbness, no sleeping problems Additional ROS info: Except as noted in the above Review of Systems and in the History of Present Illness all other systems have been reviewed and are negative or noncontributory. Physical Exam Vitals & Measurements T: 36.6 ?C (Temporal Artery) HR: 79(Peripheral) RR: 16 BP: 100/67 HT: 168 cm HT: 168.0 cm WT: 59.5 kg WT: 59.5 kg BMI: 21.08 Constitutional: Appearance: well developed Skin: Inspection: no rashes, ulcers, icterus , or telangiectasias. Eyes: Conjunctivae/lids: normal conjunctivae and lids. ENMT: Hearing: within normal limits. Lips/Teeth/Gums: normal oral mucosa Neck: Neck: normal motion, central trachea. Respiratory: Percussion: thorax normoresonant. Auscultation: normal breath sounds; no rubs, wheezes, rale or ronchi. Cardiovascular: Auscultation: normal rhythm, S1 and S2; no rubs, murmurs or gallop. Peripheral: no edema Gastrointestinal/Abdo men: Abdomen: normal consistency and bowel sounds; no tenderness or masses. Liver/Spleen: normal size and consistency, not palpable. Rectal: deferred Musculoskeletal: Gait/station: normal gait Assessment/Plan 1. RUQ pain (R10.11: Right upper quadrant pain) Gallbladder ultrasound showed a small 7 mm lesion nonshadowing stone versus a polyp, will proceed with EGD, if negative then will refer to surgery for cholecystectomy Ordered: omeprazole, 40 mg = 1 cap(s), Oral, Daily, # 30 cap(s), Refills(s) 2, Pharmacy: [facility]/pharmacy #[id number], 168, cm, 04/20/20 10:06:00 EDT, Height/Length Dosing, 59.5, kg, 04/20/20 10:06:00 EDT, Weight Dosing EGD Endoscopy (Hospital Procedure) 2. Anxiety (F41.9: Anxiety disorder, unspecified) 3. Nausea (R11.0: Nausea) Ordered: omeprazole, 40 mg = 1 cap(s), Oral, Daily, # 30 cap(s), Refills(s) 2, Pharmacy: [facility]/pharmacy #[id number], 168, cm, 04/20/20 10:06:00 EDT, Height/Length Dosing, 59.5, kg, 04/20/20 10:06:00 EDT, Weight Dosing EGD Endoscopy (Hospital Procedure) Follow-up With When Contact Information Ezequiel MARTINEZ MD Within [address] [place] [address]- Additional Instructions: Patient Education Abdominal Pain Abdominal Pain Problem List/Past Medical History Ongoing No qualifying data Historical No qualifying data Medications dicyclomine 20 mg Tab, 20 mg= 1 tab(s), Oral, TID omeprazole 40 mg Cap-DR, 40 mg= 1 cap(s), Oral, Daily, 2 refills Zofran ODT 4 mg Tab, 4 mg= 1 tab(s), Oral, TID Allergies HYDROcodone (Hives) oxyCODONE (Hives) penicillin (Hives) Social History Alcohol Current, 04/19/2020 Substance Abuse Current, 04/19/2020 Tobacco Never (less than 100 in lifetime) Tobacco Use:., 04/20/2020 Never (less than 100 in lifetime) Tobacco Use:. Cigarettes, 04/19/2020 Family History Family history is negative Normal [facility] Comment on above: Result Comment: Elec tronically Signed By: Ezequiel MARTINEZ MD\.br\Date and Time Signed: 04/20/20 10:56 EDT Patient Educationon 04-20-20 20 Patient Education Abdominal Pain Abdominal pain can be caused by many things. Your caregiver decides the seriousness of your pain by an examination and possibly blood tests and X-rays. Many cases can be observed and treated at home. Most abdominal pain is not caused by a disease and will probably improve without treatment. However, in many cases, more time must pass before a clear cause of the pain can be found. Before that point, it may not be known if you need more testing, or if hospitalization or surgery is needed. HOME CARE INSTRUCTIONS ? Do not take laxatives unless directed by your caregiver. ? Take pain medicine only as directed by your caregiver. ? Only take xzfr-gem-auhdbet or prescription medicines for pain, discomfort, or fever as directed by your caregiver. ? Try a clear liquid diet (broth, tea, or water) for as long as directed by your caregiver. Slowly move to a bland diet as tolerated. SEEK IMMEDIATE MEDICAL CARE IF: ? The pain does not go away. ? You have a fever. ? You keep throwing up (vomiting ). ? The pain is felt only in portions of the abdomen. Pain in the right side could possibly be appendicitis. In an adult, pain in the left lower portion of the abdomen could be colitis or diverticulitis. ? You pass bloody or black tarry stools. MAKE SURE YOU: ? Understand these instructions. ? Will watch your condition. ? Will get help right away if you are not doing well or get worse. Document Released: 03/20/2006 Document Revised: 09/01/2012 Document Reviewed: 01/26/2009 ExitCare? Patient Information ?2013 [employer]. Family Medicine Abdominal Pain Abdominal pain can be caused by many things. Your caregiver decides the seriousness of your pain by an examination and possibly blood tests and X-rays. Many cases can be observed and treated at home. Most abdominal pain is not caused by a disease and will probably improve without treatment. However, in many cases, more time must pass before a clear cause of the pain can be found. Before that point, it may not be known if you need more testing, or if hospitalization or surgery is needed. HOME CARE INSTRUCTIONS ? Do not take laxatives unless directed by your caregiver. ? Take pain medicine only as directed by your caregiver. ? Only take pxrw-zkc-howdhly or prescription medicines for pain, discomfort, or fever as directed by your caregiver. ? Try a clear liquid diet (broth, tea, or water) for as long as directed by your caregiver. Slowly move to a bland diet as tolerated. SEEK IMMEDIATE MEDICAL CARE IF: ? The pain does not go away. ? You have a fever. ? You keep throwing up (vomiting ). ? The pain is felt only in portions of the abdomen. Pain in the right side could possibly be appendicitis. In an adult, pain in the left lower portion of the abdomen could be colitis or diverticulitis. ? You pass bloody or black tarry stools. MAKE SURE YOU: ? Understand these instructions. ? Will watch your condition. ? Will get help right away if you are not doing well or get worse. Document Released: 03/20/2006 Document Revised: 09/01/2012 Document Reviewed: 01/26/2009 ExitCare? Patient Information ?2013 [employer]. Normal [facility] Physician Orderon 04-20-2020 Physician Order [id number] 0 [id number]# 1.00CD:127 Normal [facility] Physician Order [id number]. 00CD:127 Normal [facility] Auto Diffon 04-19-2020 Basophils/100 WBC (Bld) 0.6 % Normal 0.0-2.0 [facility] Comment on above: Order Comment: Order Added by Discern Expert. Performed By: #### 2 [id number] #### [facility] [address] [place] [address] Basophils/Leukocytes Auto (Bld) [Pure # fraction] 0.0 E9/L Normal 0.0-0.2 [facility] Comment on above: Order Comment: Order Added by Discern Expert. Performed By: #### 2 [id number] #### [facility] [address] [place] [address] Eosinophils/100 WBC (Bld) 0.2 % Normal 0.0-8.0 [facility] Comment on above: Order Comment: Order Added by Discern Expert. Performed By: #### 2 [id number] #### [facility] [address] [place] [address] Eosinophils/Leukocyt es Auto (Bld) [Pure # fraction] 0.0 E9/L Normal 0.0-0.5 [facility] Comment on above: Order Comment: Order Added by Discern Expert. Performed By: #### 2 [id number] #### [facility] [address] [place] [address] Lymphocytes/100 WBC (Bld) 34.4 % Normal 14.0-50.0 [facility] Comment on above: Order Comment: Order Added by Discern Expert. Performed By: #### 2 [id number] #### [facility] [address] [place] [address] Lymphocytes/Leukocyt es Auto (Bld) [Pure # fraction] 2.5 E9/L Normal 1.0-4.0 [facility] Comment on above: Order Comment: Order Added by Discern Expert. Performed By: #### 2 [id number] #### [facility] [address] [place] [address] Monocytes/100 WBC (Bld) 6.1 % Normal 4.0-14.0 [facility] Comment on above: Order Comment: Order Added by Discern Expert. Performed By: #### 2 [id number] #### [facility] [address] [place] [address] Monocytes/Leukocytes Auto (Bld) [Pure # fraction] 0.4 E9/L Normal 0.2-1.0 [facility] Comment on above: Order Comment: Order Added by Discern Expert. Performed By: #### 2 [id number] #### [facility] [address] [place] [address] Neutrophils/100 WBC (Bld) 58.7 % Normal 36.0-75.0 [facility] Comment on above: Order Comment: Order Added by Discern Expert. Performed By: #### 2 [id number] #### [facility] [address] [place] [address] Neutrophils/Leukocyt es Auto (Bld) [Pure # fraction] 4.2 E9/L Normal 2.0-7.5 [facility] Comment on above: Order Comment: Order Added by Discern Expert. Performed By: #### 2 [id number] #### [facility] [address] [place] [address] BMPon 04-19-2020 Creatinine [Mass/Vol] 0.8 mg/dL Normal 0.5-1.3 [facility] Comment on above: Performed By: #### 2 [id number] #### [facility] [address] [place] [address] Urea nitrogen [Mass/Vol] 12 mg/dL Normal 5-21 [facility] Comment on above: Performed By: #### 2 [id number] #### [facility] [address] [place] [address] Urea nitrogen/Creatinine [Mass ratio] 15 No Units Normal 10-20 [facility] Comment on above: Performed By: #### 2 [id number] #### [facility] [address] [place] [address] Anion gap [Moles/Vol] 11 mmol/L Normal 6-16 [facility] Comment on above: Performed By: #### 2 [id number] #### [facility] [address] [place] [address] Calcium [Mass/Vol] 9.7 mg/dL Normal 8.9-11.1 [facility] Comment on above: Performed By: #### 2 [id number] #### [facility] [address] [place] [address] Chloride [Moles/Vol] 103 mmol/L Normal 101-111 [facility] Comment on above: Performed By: #### 2 [id number] #### [facility] [address] [place] [address] CO2 [Moles/Vol] 27 mmol/L Normal 21-31 [facility] Comment on above: Performed By: #### 2 [id number] #### [facility] [address] [place] [address] Glucose [Mass/Vol] 97 mg/dL Normal 55-199 [facility] Comment on above: Result Comment: If t his glucose result represents a fasting glucose, interpretation should refer to the following reference range: 55-99 mg/dL Performed By: #### 2 [id number] #### [facility] [address] [place] [address] Potassium [Moles/Vol] 3.5 mmol/L Normal 3.5-5.3 [facility] Comment on above: Performed By: #### 2 [id number] #### [facility] [address] [place] [address] Sodium [Moles/Vol] 137 mmol/L Normal 135-145 [facility] Comment on above: Performed By: #### 2 [id number] #### [facility] [address] [place] [address] CBC w/ Auto Diffon 0 Erythrocyte distribution width (RBC) [Ratio] 13.3 % Normal 10.9-14.2 [facility] Comment on above: Performed By: #### 2 [id number] #### [facility] [address] [place] [address] Hematocrit (Bld) [Volume fraction] 37.6 % Normal 34.0-46.0 [facility] Comment on above: Performed By: #### 2 [id number] #### [facility] [address] [place] [address] Hemoglobin (Bld) [Mass/Vol] 13.4 g/dL Normal 12.0-16.0 [facility] Comment on above: Performed By: #### 2 [id number] #### [facility] [address] [place] [address] MCH (RBC) [Entitic mass] 31.9 pg Normal 27.0-34.0 [facility] Comment on above: Performed By: #### 2 [id number] #### [facility] [address] [place] [address] MCHC (RBC) [Mass/Vol] 35.7 g/dL Normal 31.4-36.0 [facility] Comment on above: Performed By: #### 2 [id number] #### [facility] [address] [place] [address] MCV (RBC) [Entitic vol] 89.2 fL Normal 80.0-100.0 [facility] Comment on above: Performed By: #### 2 [id number] #### [facility] [address] [place] [address] Platelet mean volume (Bld) [Entitic vol] 9.4 fL Normal 6.4-10.8 [facility] Comment on above: Performed By: #### 2 [id number] #### [facility] [address] [place] [address] Platelets (Bld) [#/Vol] 219.0 E9/L Normal 150.0-500.0 [facility] Comment on above: Performed By: #### 2 [id number] #### [facility] [address] [place] [address] RBC (Bld) [#/Vol] 4.2 E12/L Low 4.3-5.9 [facility] Comment on above: Performed By: #### 2 [id number] #### [facility] [address] [place] [address] WBC corrected for nucl RBC Auto (Bld) [#/Vol] 7.2 E9/L Normal 4.0-11.0 [facility] Comment on above: Performed By: #### 2 [id number] #### [facility] [address] [place] [address] Consent for Treatmenton 03-25 Consent for Treatment [id number] .00CD:127 Normal [facility] Discharge Instructionson Discharge Instructions [id number] 1.00CD:127 Normal [facility] ED Clinical Summaryon 2019 ED Clinical Summary [address] [address] ED Clinical Summary Person Information Name: RAJIV TOVAR/[facility] Age: 24 Years : 1995 Sex: Female Language: [place] PCP: Alon Weber MD Marital Status: Single Visit Id: Visit Reason: Abdominal pain; Flank pain; r side pain Speciality: Acuity: 3 Enc Type: Emergency Med Service: Emergency Arrival: 04/19/2020 06:10:12 Discharge: 04/19/2020 08:58:09 LOS: 000 02:48 Checkin: 04/19/2020 06:10:12 Checkout: 04/19/2020 08:58:09 Dispo Type: Home (Routine DC) EVENTS: Event Name Event Status Request Date/Time Start Date/Time Complete Date/Time Arrive Complete 04/19/2020 06:10:12 04/19/2020 06:10:12 04/19/2020 06:10:12 Document Home Meds Request 04/19/2020 06:10:12 Triage Complete 04/19/2020 06:10:12 04/19/2020 06:20:10 04/19/2020 06:20:10 Bed Assign Complete 04/19/2020 06:12:39 04/19/2020 06:12:39 04/19/2020 06:12:39 Dr Exam Complete 04/19/2020 06:12:39 04/19/2020 06:17:00 04/19/2020 06:17:00 RN Exam Complete 04/19/2020 06:12:39 04/19/2020 06:50:31 04/19/2020 06:50:31 Registration Complete 04/19/2020 06:17:00 04/19/2020 08:46:48 04/19/2020 08:46:48 Pending Labs Complete 04/19/2020 06:24:57 04/19/2020 07:15:49 Lab Complete 04/19/2020 06:24:57 04/19/2020 07:13:11 Urine Collect Complete 04/19/2020 06:24:57 04/19/2020 07:03:40 Meds Admin Complete 04/19/2020 06:24:57 04/19/2020 06:51:50 Pending Labs Complete 04/19/2020 06:47:11 04/19/2020 06:47:11 04/19/2020 07:13:10 Lab Complete 04/19/2020 06:47:11 04/19/2020 06:47:11 04/19/2020 07:13:10 Pending Labs Complete 04/19/2020 07:02:41 04/19/2020 07:02:41 04/19/2020 07:02:45 Lab Complete 04/19/2020 07:02:41 04/19/2020 07:02:41 04/19/2020 07:02:45 Dr Exam Complete 04/19/2020 07:09:37 04/19/2020 07:09:37 04/19/2020 07:09:37 US Cancel 04/19/2020 07:15:58 04/19/2020 07:26:31 US Complete 04/19/2020 07:26:30 04/19/2020 07:47:49 04/19/2020 08:29:42 Discharge Complete 04/19/2020 08:24:51 04/19/2020 08:58:55 04/19/2020 08:58:55 Reg Complete Request 04/19/2020 08:46:48 Reg Bed Request Complete 04/19/2020 08:46:48 04/19/2020 08:46:48 04/19/2020 08:46:48 Transfer Complete 04/19/2020 08:58:55 04/19/2020 08:58:55 04/19/2020 08:58:55 ADDRESS: [address] [facility] [id number] PHYS DOC NOTES: Addendum by Laureano Phillip DO on April 19, 2020 08:26:02 EDT MEDICAL INFORMATION: Prescriptions Given: New Medications [id number], [address], [place] [id number], [phone] dicyclomine (dicyclomine 20 mg Tab) 1 Tablets By Mouth 3 times a day for 7 Days. Refills: 0. ondansetron (Zofran ODT 4 mg Tab) 1 Tablets By Mouth 3 times a day. Refills: 0. PATIENT EDUCATION INFORMATION: Instructions: Cholelithiasis Follow up: With: Address: When: [facility], [address] [place] [address] Business (1) In 3 days 04/22/2020 DIAGNOSIS: 1:Abdominal pain; Biliary colic; Gall stone; Nausea Normal [facility] ED Note-Nursingon 04-19-2020 ED Note-Nursing Report received from Zacarias Cuevas RN. Patient resting on cart. Updated on plan of care. Denies any needs at this time. Call light in reach. Normal [facility] ED Note-Physicianon 04-19-20 20 ED Note-Physician Basic Information Time Seen: Ye Bowman Susana Lozoya 04/19/2020 06:17 Chief Complaint Arrives for c/o r upper quad abd/flank pain x months, worse tongiht x several hours, states sharp pain radiates down R side. History of Present Illness The patient is 24-year-old female who presented to the emergency room with right upper quadrant abdominal pain. The patient states she has had this pain for the past couple of months on and off and for the past couple days has been persistent. The patient rates the pain 7-8 out of 10. She states the pain radiates sometimes down to the right lower quadrant and sometimes across to her mid to lower back. She states sitting makes the pain better. The patient denies any hematuria. She denies any dysuria, denies any frequency with urination. She reports nausea but no vomiting. She denies any diarrhea. The patient denies any fever denies any chills. Review of Systems Additional ROS info: Except as noted in the above Review of Systems and in the History of Present Illness all other systems have been reviewed and are negative or noncontributory. Physical Exam Vitals & Measurements T: 37.0 ?C (Oral) HR: 80(Peripheral) RR: 18 BP: 143/91 SpO2: 96% HT: 168.0 cm HT: 168 cm WT: 58.5 kg WT: 58.5 kg BMI: 20.73 General: alert, no acute distress Skin: warm, dry Head: no trauma, normocephalic Neck: Trachea midline Eye: normal conjunctiva, sclera clear Cardiovascular: regular rate and rhythm Respiratory: Lungs CTA, respirations non labored, breath sounds equal Gastrointestinal: soft, non distended, no tenderness, no guarding, normal bowel sounds Back: No CVA tenderness, Normal ROM Extremities: no deformity, no trauma Neurological: Alert and oriented, speech normal, no focal neuro deficits Psychiatric: cooperative, affect appropriate for age Medical Decision Making The care of the patient was transitioned to Dr. Phillip upon shift change to follow-up with blood work reevaluation and final disposition. Assessment/Plan 1. Abdominal pain (R10.9: Unspecified abdominal pain) Orders: ketorolac, 30 mg = 1 mL, Injection, IV Push, Once, Stop date 04/19/20 6:24:00 EDT, STAT, Start date 04/19/20 6:24:00 EDT ondansetron, 4 mg = 2 mL, Injection, IV Push, Once, Stop date 04/19/20 6:24:00 EDT, STAT, Start date 04/19/20 6:24:00 EDT Basic Metabolic Panel CBC w/ Auto Diff Hepatic Function Panel Lipase Level PT & PTT U Beta Hcg Qual UA With Cult Reflex Disposition Plan Discharge Prescription List Prescriptions No active prescription medications Follow-up No qualifying data available Problem List/Past Medical History Ongoing No qualifying data Historical No qualifying data Medications Inpatient ketorolac 30 mg/mL Inj 1 mL, 30 mg= 1 mL, IV Push, Once ondansetron 4 mg/2 mL Inj, 4 mg= 2 mL, IV Push, Once Home No active home medications Allergies HYDROcodone (Hives) oxyCODONE (Hives) penicillin (Hives) Lab Results No qualifying data available. Diagnostic Results No qualifying data available. The patient was signed out to me by the prior physician I did review full work-up here in the emergency department including labs urinalysis and gallbladder ultrasound. Ultrasound does show positive finding which may represent noncalcified stone versus perhaps some biliary sludge. Clinically this fits the picture today. Patient does feel better she is going to be discharged home with referral to GI educated on dietary modifications with instructions to drink plenty of fluid. She is given Zofran as needed for nausea Bentyl as needed for pain and follow-up in the outpatient setting. She is given a note for work as well. Disposition: Discharged home Diagnosis: Abdominal pain, cholelithiasis, biliary colic Normal [facility] Comment on above: Result Comment: Elec tronically Signed By: Laureano Phillip DO\.ilana\Date and Time Signed: 04/19/20 08:26 EDT ED Patient Education Noteon 04-19-2020 ED Patient Education Note Family Medicine Cholelithiasis Cholelithiasis (also called gallstones) is a form of gallbladder disease in which gallstones form in your gallbladder. The gallbladder is an organ that stores bile made in the liver, which helps digest fats. Gallstones begin as small crystals and slowly grow into stones. Gallstone pain occurs when the gallbladder spasms and a gallstone is blocking the duct. Pain can also occur when a stone passes out of the duct. RISK FACTORS ? Being female. ? ? Having multiple pregnancies. Health care providers sometimes advise removing diseased gallbladders before future pregnancies. ? ? Being obese. ? Eating a diet heavy in fried foods and fat. ? ? Being older than 60 years and increasing age. ? ? Prolonged use of medicines containing female hormones. ? ? Having diabetes mellitus. ? ? Rapidly losing weight. ? ? Having a family history of gallstones (heredity). ? SYMPTOMS ? Nausea. ? ? Vomiting. ? Abdominal pain. ? ? Yellowing of the skin (jaundice). ? ? Sudden pain. It may persist from several minutes to several hours. ? Fever. ? ? Tenderness to the touch.? In some cases, when gallstones do not move into the bile duct, people have no pain or symptoms. These are called silent gallstones. TREATMENT Silent gallstones do not need treatment. In severe cases, emergency surgery may be required. Options for treatment include: ? Surgery to remove the gallbladder. This is the most common treatment. ? Medicines. These do not always work and may take 6?12 months or more to work. ? Shock wave treatment (extracorporeal biliary lithotripsy). In this treatment an ultrasound machine sends shock waves to the gallbladder to break gallstones into smaller pieces that can pass into the intestines or be dissolved by medicine. HOME CARE INSTRUCTIONS ? Only take qlni-qbu-pvrlrff or prescription medicines for pain, discomfort, or fever as directed by your health care provider. ? ? Follow a low-fat diet until seen again by your health care provider. Fat causes the gallbladder to contract, which can result in pain. ? ? Follow up with your health care provider as directed. Attacks are almost always recurrent and surgery is usually required for permanent treatment. ? SEEK IMMEDIATE MEDICAL CARE IF: ? Your pain increases and is not controlled by medicines. ? ? You have a fever or persistent symptoms for more than 2?3 days. ? ? You have a fever and your symptoms suddenly get worse. ? ? You have persistent nausea and vomiting. ? MAKE SURE YOU: ? Understand these instructions. ? Will watch your condition. ? Will get help right away if you are not doing well or get worse. Document Released: 06/06/2006 Document Revised: 02/10/2014 Document Reviewed: 12/02/2013 ExitCare? Patient Information ?2014 ROKT. This information is not intended to replace advice given to you by your health care provider. Make sure you discuss any questions you have with your health care provider. Normal [facility] ED Patient Summaryon 020 ED Patient Summary [address] [id number] Patient Discharge Instructions Person Information Name: RAJIV TOVAR Age: 24 Years Arrival Date: 04/19/2020 06:10:12 Discharge Diagnosis: 1:Abdominal pain; Biliary colic; Gall stone; Nausea Primary Care Physician: Alon Weber MD Provider Information Primary Provider: Susana Belcher M.D. Advanced Wharf Builder:None The exam and treatment you received in the Emergency Department were for an urgent problem and are not intended as complete care. It is important that you follow up with a doctor, nurse practitioner, or physician?s medication assistant for ongoing care. If your symptoms become worse or you do not improve as expected and you are unable to reach your usual health care provider, you should return to the Emergency Department. We are available 24 hours a day. RAJIV TOVAR has been given the following list of patient education materials, prescriptions and follow-up instructions: Follow-up Instructions: With: Address: When: [facility], [address] [place] [address] Business (1) In 3 days 04/22/2020 In the event that this physician does not participate in your insurance network, please consult with your insurance company to find a nearby participating provider. Patient Education Materials: Cholelithiasis A MESSAGE TO ALL PATIENTS REGARDING OPIOIDS PRESCRIPTION OPIOIDS: WHAT YOU NEED TO KNOW Prescription opioids can be used to help relieve tzttuebk-de-njmoye pain and are often prescribed following a surgery or injury, or for certain health conditions. These medications can be an important part of the treatment but also come with serious risks. It is important to work with your healthcare provider to make sure you are getting the safest, most effective care. WHAT ARE THE RISKS AND SIDE EFFECTS OF OPIOID USE? Prescription opioids carry serious risks of addiction and overdose, especially with prolonged use. An opioid overdose, often marked by slowed breathing, can cause sudden . The use of prescription opioids can have a number of side effects as well, even when taken as directed: ? Tolerance?meaning you might need to take more of the medication for the same pain relief ? Physical dependence?meaning you have symptoms of withdrawal when a medication is stopped ? Increased sensitivity to pain ? Constipation ? Nausea, vomiting, and dry mouth ? Sleepiness and dizziness ? Confusion ? Depression ? Low levels of testosterone that can result in lower sex drive, energy, and strength ? Itching and sweating RISKS ARE GREATER WITH: ? History of drug misuse, substance use disorder, or overdose ? Mental health conditions (such as depression or anxiety) ? Sleep apnea ? Older age (65 years and older) ? Avoid alcohol while taking prescription opioids. Also, unless specifically advised by your health care provider, medications to avoid include: ? Benzodiazepines (such as Xanax or Valium) ? Muscle relaxants (such as Soma or Flexeril) ? Hypnotics (such as Ambien or Lunesta) ? Other prescription opioids KNOW YOUR OPTIONS Talk to your health care provider about ways to manage your pain that don?t involve prescription opioids. Some of these options may actually work better and have fewer risks and side effects. Options may include: ? Pain relievers such as acetaminophen, ibuprofen, and naproxen ? Some medication that are also used for depression or seizures ? Physical therapy and exercise ? Cognitive behavioral therapy, a psychological, goal-directed approach, in which patients learn how to modify physical, behavioral, and emotional triggers of pain and stress. IF YOU ARE PRESCRIBED OPIOIDS FOR PAIN: ? Never take opioids in greater amounts or more often than prescribed. ? Follow up with your primary health care provider. o Work together to create a plan on how to manage your pain. o Talk about ways to help manage your pain that don?t involve prescription opioids. o Talk about any and all concerns and side effects. ? Help prevent misuse and abuse o Never sell or share prescription opioids. o Never use another person?s prescription opioids. ? Store prescription opioids in a secure place and out of reach of others (this may include visitors, children, friends, and family). ? Safely dispose of unused prescription opioids: Find your community drug take-back program or your pharmacy mail-back program, or flush them down the toilet, following guidance from the Food and Drug Administration (www.fda.gov/Drugs/Re sourcesForYou). ? Visit www.cdc.gov/drugoverd ose to learn about the risks of opioids abuse and overdose. ? If you believe you may be struggling with addiction, tell your health tree care foreman and ask for guidance or call [facility]?S National Helpline at 2-510-1 (more content not included)... Normal [facility] Hep Func Panelon 04-19-2020 Bilirubin.indirect [Mass or moles/Vol] UTC Abnormal 0.1-0.9 [facility] Comment on above: Result Comment: Resu lt verified by Discern Rule. Performed result UTC (Unable to Calculate) was sent as an Alpha code due the inability to calculate a valid numeric value. Performed By: #### 2 [id number] #### [facility] [address] [place] [address] Albumin [Mass/Vol] 4.3 g/dL Normal 3.3-5.0 [facility] Comment on above: Performed By: #### 2 [id number] #### [facility] [address] [place] [address] Albumin/Globulin (S) [Mass conc ratio] 1.5 Normal 1.1-2.2 [facility] Comment on above: Performed By: #### 2 [id number] #### [facility] [address] [place] [address] ALP [Catalytic activity/Vol] 77 Int._Unit/L Normal 21-98 [facility] Comment on above: Performed By: #### 2 [id number] #### [facility] [address] [place] [address] ALT No additional P-5'-P [Catalytic activity/Vol] 59 Int._Unit/L High 6-46 [facility] Comment on above: Performed By: #### 2 [id number] #### [facility] [address] [place] [address] AST [Catalytic activity/Vol] 36 Int._Unit/L Normal 5-43 [facility] Comment on above: Performed By: #### 2 [id number] #### [facility] [address] [place] [address] Bilirubin [Mass/Vol] 0.4 mg/dL Normal 0.0-1.1 [facility] Comment on above: Performed By: #### 2 [id number] #### [facility] [address] [place] [address] Bilirubin.direct [Mass/Vol] mg/dL Normal 0.1-0.4 [facility] Comment on above: Performed By: #### 2 [id number] #### [facility] [address] [place] [address] Globulin (S) [Mass/Vol] 2.8 g/dL Normal 1.4-4.0 [facility] Comment on above: Performed By: #### 2 [id number] #### [facility] [address] [place] [address] Protein [Mass/Vol] 7.1 g/dL Normal 6.0-7.8 [facility] Comment on above: Performed By: #### 2 [id number] #### [facility] [address] [place] [address] Lipase Levelon 04-19-2020 Lipase [Catalytic activity/Vol] 43 U/L Normal 13-58 [facility] Comment on above: Performed By: #### 2 [id number] #### [facility] [address] [place] [address] PT & PTTon 04-19-2020 aPTT Coag (PPP) [Time] 30.2 second(s) Normal 25.1-36.5 [facility] Comment on above: Result Comment: Hepa rin therapeutic range (represented by Anti-Factor Xa activity of 0.2 - 0.4 U/mL) corresponds to PTT of 56.6 - 109.0 sec. Performed By: #### 2 [id number] #### [facility] [address] [place] [address] INR Coag (PPP) [Relative time] 1.0 {INR} Invalid Interpretation Code [facility] Comment on above: Result Comment: INR results are specifically intended to assess patients stabilized on long-term Anticoagulation therapy suggested INR?s ?Less Intensive Anticoagulation? 2.0 ? 3.0 Conventional Range 3.0 ? 4.5 Performed By: #### 2 [id number] #### [facility] [address] [place] [address] PT Coag (PPP) [Time] 11.8 second(s) Normal 10.2-12.9 [facility] Comment on above: Performed By: #### 2 [id number] #### [facility] [address] [place] [address] Prescriptions/Work Noteson 1 Prescriptions/Work Notes [id number]# 1.00CD:127 Normal [facility] U BetaHcg Qualon 04-19-2020 HCG.beta subunit (U) [Moles/Vol] Negative Normal [facility] Comment on above: Performed By: #### 2 [id number] #### [facility] [address] [place] [address] UA With Cult Reflexon 2019 Bacteria LM Ql (Urine sed) TRACE Normal Trace [facility] Comment on above: Performed By: #### 2 [id number] #### [facility] [address] [place] [address] Bilirubin Ql (U) Negative Normal Negative [facility] Comment on above: Performed By: #### 2 [id number] #### [facility] [address] [place] [address] Clarity (U) CLEAR Normal Clear [facility] Comment on above: Performed By: #### 2 [id number] #### [facility] [address] [place] [address] Color (U) YELLOW Normal Yellow [facility] Comment on above: Performed By: #### 2 [id number] #### [facility] [address] [place] [address] Crystals LM Ql (Urine sed) Present Normal [facility] Comment on above: Performed By: #### 2 [id number] #### [facility] [address] [place] [address] Epithelial cells.squamous LM.HPF (Urine sed) [#/Area] 3-4 Normal 0-2 [facility] Comment on above: Performed By: #### 2 [id number] #### [facility] [address] [place] [address] Glucose Test strip (U) [Mass/Vol] Negative Normal Negative [facility] Comment on above: Performed By: #### 2 [id number] #### [facility] [address] [place] [address] Hemoglobin Ql (U) TRACE Abnormal Negative [facility] Comment on above: Performed By: #### 2 [id number] #### [facility] [address] [place] [address] Ketones (U) [Mass/Vol] Negative Normal Negative [facility] Comment on above: Performed By: #### 2 [id number] #### [facility] [address] [place] [address] [place].plasma/Lithi um.RBC (Bld) [Mass ratio] 0-3 Normal 0-3 [facility] Comment on above: Performed By: #### 2 [id number] #### [facility] [address] [place] [address] Nitrite Ql (U) Negative Normal Negative [facility] Comment on above: Performed By: #### 2 [id number] #### [facility] [address] [place] [address] pH (U) 6.5 [pH] Invalid Interpretation Code 5.0-9.0 [facility] Comment on above: Performed By: #### 2 [id number] #### [facility] [address] [place] [address] Protein (U) [Mass/Vol] Negative Normal Negative [facility] Comment on above: Performed By: #### 2 [id number] #### [facility] [address] [place] [address] Specific gravity (U) [Rel density] 1.025 Invalid Interpretation Code 1.005-1.030 [facility] Comment on above: Performed By: #### 2 [id number] #### [facility] [address] [place] [address] UA Spec Desc Clean Catch Normal [facility] Comment on above: Performed By: #### 2 [id number] #### [facility] [address] [place] [address] Urobilinogen Qn (U) 0.2 {Arnie'U}/dL Normal 0.0-1.0 [facility] Comment on above: Performed By: #### 2 [id number] #### [facility] [address] [place] [address] WBC Auto Ql (U) Negative Normal Negative [facility] Comment on above: Performed By: #### 2 [id number] #### [facility] [address] [place] [address] WBC LM.HPF (Urine sed) [#/Area] 0-5 Normal 0-5 [facility] Comment on above: Performed By: #### 2 [id number] #### [facility] [address] [place] [address] US Abdomen, Limitedon 2019 US Abdomen, Limited Exam Date/Time: 04/19/2020 08:29 EDT Reason for Exam: Abdominal pain Report IMPRESSION: SMALL GALLBLADDER, THAT APPEARS TO BE PARTIALLY CONTRACTED. GALLBLADDER POLYP, VERSUS NON SHADOWING GALLSTONE, VERSUS FOCAL INSPISSATED BILE. CLINICAL HISTORY: Abdominal pain. COMMENT: The liver is normal in size and configuration. The echo pattern of the liver is unremarkable. No focal liver lesion is evident. The gallbladder is small and appears partially contracted. Within the gallbladder lumen, there is a 7 mm rounded area of intermediate echogenicity, without acoustic shadowing. This could represent a gallbladder polyp or non shadowing gallstone or focal inspissated bile. No shadowing gallstone is noted. There is no biliary ductal dilatation. The common bile duct measures approximately 4 mm in diameter. No free fluid is noted collecting peripheral to the liver. FINAL REPORT Dictated: 04/19/2020 11:21 am Isaiah Guo M.D. Signed (Electronic Signature): 04/19/2020 11:21 am Signed by: Isaiah Guo M.D. Transcribed by: OLGA Technologist: RENETTA Normal [facility] eGFRon 04-19-2020 GFR/1.73 sq M.predicted among blacks MDRD (S/P/Bld) [Vol rate/Area] mL/min/{1.73_m2} Normal >=59 [facility] Comment on above: Order Comment: Order added by Discern Expert. Result Comment: eGFR is race adjusted. AA=. Performed By: #### 2 [id number] #### [facility] [address] [place] [address] GFR/1.73 sq M.predicted among non-blacks MDRD (S/P/Bld) [Vol rate/Area] mL/min/{1.73_m2} Normal >=59 [facility] Comment on above: Order Comment: Order added by Discern Expert. Result Comment: Supervisor Instrument Repair bib kidney disease could be indicated at eGFR's of less than 60 mL/min/1.73m2. Kidney failure is indicated at less than 15 mL/min/1.73m2. Performed By: #### 2 [id number] #### [facility] [address] [place] [address] Encounters Encounter Date Encounter Type Care Provider Facility Start: 09-09-2023 End: 09-09-2023 ambulatory FLYNN BLAKE Not Available Start: 08-22-2023 End: 08-22-2023 ambulatory FLYNN BLAKE Not Available Start: 08-08-2023 Brandyn ledesma MD Work Phone: [facility] Start: 08-08-2023 Brandyn Cummings Petit ti MD Work Phone: [facility] Start: 08-08-2023 End: 08-08-2023 ambulatory MY SINGH Not Available Start: 08-08-2023 End: 08-08-2023 Office outpatient visit 15 minutes My Singh MD Work Phone: [facility] Comment on above: Herpesviral vesicula r dermatitis (Primary Dx) Start: 09-03-2021 End: 09-03-[address] ALON WEBER Facility:[facility] Start: 08-17-[address] AKASH MARTINEZ Facili ty:[facility] Start: 08-01-2021 End: 08-01-[address] AKASH MARTINEZ Facility:[facility] Start: 07-18-2021 End: 07-19-[address] AKASH MARTINEZ Facility:[facility] Start: 07-04-2021 End: 07-04-[address] AKASH MARTINEZ Facility:[facility] Plan of Treatment Date Care Activity Detail Author Start: 08-10-2024 End: 08-10-2024 Patient encounter procedure 08/10/2024 1:00 PM EST Office Visit [facility] [address] [place] [address] My Singh MD [address] [place] [address] [facility] Start: 08-22-2023 End: 08-22-2023 Patient encounter procedure 08/22/2023 11:50 AM EST Office Visit [facility] [address] [place] [address] Flynn Archibald, [address] [place], [place] [id number] [facility] Payers Date Payer Category Payer Unknown BCBS BCBS xxxxxx [id number] 2017-Present [phone] [address] [place] [address] [id number] 1993 Unknown [id number] 1993 Unknown [id number] 1993 Unknown [id number] 1993 Unknown [id number] 1993 Unknown [id number] 1993 Unknown [id number] 1993 Unknown [id number] 1993 Unknown [id number] 1959 Unknown [id number] Social History Date Type Detail Facility Tobacco smoking stat [facility] Tobacco smoking consumption unknown [facility] Start: 1995 Sex Assigned At Not on file [facility] Start: 08-08-2023 Gender identity Not on file [facility] Start: 08-08-[address] [facility] Never smoked tobacco [facility] Start: 08-08-2023 Tobacco use and exposure Smokeless t obacco non-user [facility] Start: 08-08-2023 History of Social function [facility] History of Present illness Narrative 08-08-2023 My Singh MD - 08/08/2023 9:50 AM EST Note Date & Type Note Facility 08-08-2023 History of Presen t illness Narrative Follow up Diagnosis: HSV Location: left hand Last visit: 1 year ago Symptoms: red, scaly Status: flaring Current treatment: Valtrex 500 mg qd (takes as needed for flare ups) All pertinent medical history, medications, and allergies were reviewed. General Exam: alert , oriented to person, place, and time , normal affect, well appearing Unaccompanied A focused exam completed based on patient reported problems, see below: 1. Herpesviral vesicular dermatitis Left Hand - Anterior Clear today Continue with treatment as prescribed. Plan to follow up in 1 year. Notify office if flaring despite treatment. Related Medications valACYclovir (Valtrex) 500 MG tablet Take 1 tablet daily, by mouth, 30 days Next Visit: 1 year (follow up) documented in this encounter [facility] Consultation note 07-18-2021 Note Date & Type Note Facility 07-18-2021 Note CONSULTATION CHIEF COMPLAINT: Mid-back pain, right low back pain. This is a 26-year-old female who recently underwent a Splanchnic nerve block on the right-hand side which afforded her 85+ percent pain relief in totality. 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 Twisting, turning, pushing and lifting aggravate the patient's pain. 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 The patient describes the pain as 2-3/10. It is an achy, deep sensation. The patient currently takes Motrin 800 mg, venlafaxine 75 mg, trazodone 50 mg, buspirone 10 mg b.i.d. PAST MEDICAL HISTORY, SURGICAL HISTORY, REVIEW OF SYSTEMS ARE NOTED ON THE CHART ALONG WITH THE MEDICATION LIST, ALLERGIES AND RADIOLOGICAL IMAGES. PHYSICAL EXAMINATION: Upon physical examination this is a pleasant cooperative female, aesthetically built, who does not appear to be in any acute distress. VITAL SIGNS: Stable at 119/81 with a heart rate of 86, height of 168 cm, weighs 59 kg. FOCUSED EVALUATION: The patient does not have any abdominal pain. The patient has some discomfort upon extension, compression and direct palpation along the posterior elements along the L5-S1 and L4-L5 facets. EXTREMITIES: No pedal edema. MUSCULOSKELETAL: Intact in the lower extremity at 5/5. NEUROLOGIC: The patient is intact. PSYCHIATRIC: Affect is appropriate. IMPRESSION: Abdominal pain, improvement substantial subsequent to the right Splanchnic nerve block. 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 PLAN: Nutritional stress was done to the patient. Also using her body mechanics, given her aesthetic endomorphic osseous structure. Inversion table was suggested to the patient. Body mechanics, especially with lifting her child and at work were stressed to the patient. We will schedule the patient for a diagnostic medial branch block at the level of L3, 4 and 5 under fluoroscopy, medial branch block. The patient understands and would like to proceed. CC: Dr. Alon Weber [facility] Consultation note 07-18-2021 Note Date & Type Note Facility 07-18-2021 Note CONSULTATION CHIEF COMPLAINT: Mid-back pain, right low back pain. This is a 26-year-old female who recently underwent a Splanchnic nerve block on the right-hand side which afforded her 85+ percent pain relief in totality. 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 Twisting, turning, pushing and lifting aggravate the patient's pain. 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 The patient describes the pain as 2-3/10. It is an achy, deep sensation. The patient currently takes Motrin 800 mg, venlafaxine 75 mg, trazodone 50 mg, buspirone 10 mg b.i.d. PAST MEDICAL HISTORY, SURGICAL HISTORY, REVIEW OF SYSTEMS ARE NOTED ON THE CHART ALONG WITH THE MEDICATION LIST, ALLERGIES AND RADIOLOGICAL IMAGES. PHYSICAL EXAMINATION: Upon physical examination this is a pleasant cooperative female, aesthetically built, who does not appear to be in any acute distress. VITAL SIGNS: Stable at 119/81 with a heart rate of 86, height of 168 cm, weighs 59 kg. FOCUSED EVALUATION: The patient does not have any abdominal pain. The patient has some discomfort upon extension, compression and direct palpation along the posterior elements along the L5-S1 and L4-L5 facets. EXTREMITIES: No pedal edema. MUSCULOSKELETAL: Intact in the lower extremity at 5/5. NEUROLOGIC: The patient is intact. PSYCHIATRIC: Affect is appropriate. IMPRESSION: Abdominal pain, improvement substantial subsequent to the right Splanchnic nerve block. 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 PLAN: Nutritional stress was done to the patient. Also using her body mechanics, given her aesthetic endomorphic osseous structure. Inversion table was suggested to the patient. Body mechanics, especially with lifting her child and at work were stressed to the patient. We will schedule the patient for a diagnostic medial branch block at the level of L3, 4 and 5 under fluoroscopy, medial branch block. The patient understands and would like to proceed. CC: Dr. Alon Weber [facility] Signed and Approved by: DR AKASH MARTINEZ . 07/25/2021 08:02:00 [facility] Clinical Note 02-28-2021 Note Date & Type Note Facility 02-28-2021 Note Infectious Disease COVID-19: How to Protect Yourself and Others Know how it spreads ? There is currently no vaccine to prevent coronavirus disease 2019 (COVID-19). ? The best way to prevent illness is to avoid being exposed to this virus. ? The virus is thought to spread mainly from lwhkyu-km-zrpgdb. ? Between people who are in close contact with one another (within about 6 feet). ? Through respiratory droplets produced when an infected person coughs, sneezes or talks. ? These droplets can land in the mouths or noses of people who are nearby or possibly be inhaled into the lungs. ? Some recent studies have suggested that COVID-19 may be spread by people who are not showing symptoms. Everyone should Clean your hands often ? Wash your hands often with soap and water for at least 20 seconds especially after you have been in a public place, or after blowing your nose, coughing, or sneezing. ? If soap and water are not readily available, use a hand quality assurance calibrator that contains at least 60% alcohol. Cover all surfaces of your hands and rub them together until they feel dry. ? Avoid touching your eyes, nose, and mouth with unwashed hands. Avoid close contact ? Limit contact with others as much as possible. ? Avoid close contact with people who are sick. ? Put distance between yourself and other people. ? Remember that some people without symptoms may be able to spread virus. ? This is especially important for people who are at higher risk of getting very sick.www.cdc.gov/coronavirus/2019-ncov/n djs-serdd-cjsdevxanlz/nvhcxz-jd-tafmlx-r isk.html Cover your mouth and nose with a cloth face cover when around others ? You could spread COVID-19 to others even if you do not feel sick. ? Everyone should wear a cloth face covering in public settings and when around people not living in their household, especially when social distancing is difficult to maintain. ? Cloth face coverings should not be placed on young children under age 2, anyone who has trouble breathing, or is unconscious, incapacitated or otherwise unable to remove the mask without assistance. ? The cloth face cover is meant to protect other people in case you are infected. ? Do NOT use a facemask meant for a healthcare worker. ? Continue to keep about 6 feet between yourself and others. The cloth face cover is not a substitute for social distancing. Cover coughs and sneezes ? Always cover your mouth and nose with a tissue when you cough or sneeze or use the inside of your elbow. ? Throw used tissues in the trash. ? Immediately wash your hands with soap and water for at least 20 seconds. If soap and water are not readily available, clean your hands with a hand quality assurance calibrator that contains at least 60% alcohol. Clean and disinfect ? Clean AND disinfect frequently touched surfaces daily. This includes tables, doorknobs, light switches, countertops, handles, desks, phones, keyboards, toilets, faucets, and sinks. www.cdc.gov/coronavirus/2019-ncov/preven q-hgzigig-neey/qrixytocnlpn-xnho-tcrm.ht ml ? If surfaces are dirty, clean them: Use detergent or soap and water prior to disinfection. ? Then, use a household disinfectant. You can see a list of EPA-registered household disinfectants here. cdc.gov/coronavirus 12/22/2019 This information is not intended to replace advice given to you by your health care provider. Make sure you discuss any questions you have with your health care provider. Document Released: 10/06/2019 Document Revised: 12/31/2019 Document Reviewed: 12/31/2019 Elsevier Patient Education ? 2019 [employer] COVID-19 Frequently Asked Questions COVID-19 (coronavirus disease) is an infection that is caused by a large family of viruses. Some viruses cause illness in people and others cause illness in animals like camels, cats, and bats. In some cases, the viruses that cause illness in animals can spread to humans. Where did the coronavirus come from? In May 2019, [place] told the World Health Organization (WHO) of several cases of lung disease (human respiratory illness). These cases were linked to an open seafood and livestock market in the city of [facility]. The link to the seafood and livestock market suggests that the virus may have spread from animals to humans. However, since that first outbreak in May, the virus has also been shown to spread from person to person. What is the name of the disease and the virus? Disease name Early on, this disease was called novel coronavirus. This is because scientists determined that the disease was caused by a new (novel) respiratory virus. The World Health Organization (WHO) has now named the disease COVID-19, or coronavirus disease. Virus name The virus that causes the disease is called severe acute respiratory syndrome coronavirus 2 (SARS-CoV-2). More information on disease and virus naming World Health Organization (WHO): www.who.int/emergencies/diseases/novel-c oronavirus-2019/technical-guidance/joe k-ysn-uvvelitestn (more content not included)... 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 documented in this encounter [facility] Summary Purpose Family History No Family History Records FoundNo Family History Records FoundNo Family History Records FoundNo Family History Records Found Advance Directives No Advanced Directives Records FoundNo Advanced Directives Records FoundNo Advanced Directives Records FoundNo Advanced Directives Records Found Additional Source Comments INFORMATION SOURCE (unrecogn ized section and content) DATE CREATED AUTHOR 03/05/2021 [facility] DATE CREATED AUTHOR AUTHOR'S ORGANIZ ATJACQUELINE 04/10/2021 [facility] DATE CREATED AUTHOR AUTHOR'S ORGANIZ ATION 07/02/2022 [facility] DATE CREATED AUTHOR AUTHOR'S ORGANIZ ATION 09/09/2023 [facility] Reason for Visit (unrecogniz ed section and content) Reason Comments Follow-up FOR RECORDS PERTAINING TO PATIENTS WHO ARE OR HAVE BEEN ENROLLED IN A CHEMICAL DEPENDENCY/SUBSTANCEABUSE PROGRAM, SOME INFORMATION MAY BE OMITTED. This clinical summary was aggregated from multiple sources. Caution should be exercised in using it in the provision of clinical care. This summary normalizes information from multiple sources, and as a consequence, information in this document may materially change the coding, format and clinical context of patient data. In addition, data may be omitted in some cases. CLINICAL DECISIONS SHOULD BE BASED ON THE PRIMARY CLINICAL RECORDS. [employer] provides no warranty or guarantee of the accuracy or completeness of information in this document.
== END 2023-09-10 08:27 | disposition home or self-care (01) ==
LOC: NOMS 08:26
PROVIDERS: PCP Family Medicine; Visit Provider Obstetrics & Gynecology
DX: R10.2 Pelvic and perineal pain (principal)
CPT/HCPCS: 76830; 76856

== ENCOUNTER 2023-10-02 12:29 | Outpatient (OUT) | payer BC, SELFPAY ==
--- NOTE | 2023-10-02 13:44 | P.GSHP_ITS ---
History of Present Illness History of Present Illness Chief complaint: pelvic pain Narrative: Patient presents for preadmission testing. The patient reports a long history of pelvic pain. She has a history of ovarian cysts, endometriosis, and prior Laparoscopic procedure. She denies nausea, vomiting, fever, or any other complaints. Review of Systems ROS Narrative REVIEW OF SYSTEMS: Negative except as stated in HPI, ten or more systems reviewed. Constitutional: No fever , chills, weakness ENT: No sore throat or epistaxis Cardiovascular: No edema, chest pain, palpitations, or activity intolerance Respiratory: No shortness of breath, cough, or wheezing Musculoskeletal: No joint pain or swelling Gastrointestinal: No constipation, diarrhea, or vomiting Genitourinary: No dysuria or hematuria Neurological: No numbness, tingling, weakness, or headache Psychiatric: No mood changes PFSH PFS Medical History (Updated 10/02/23 @ 12:49 by Cherie Cuevas NP) Insomnia ?G47.00 - Insomnia, unspecified (ICD-10) PTSD (post-traumatic stress disorder) ?F43.10 - Post-traumatic stress disorder, unspecified (ICD-10) Panic attacks ?F41.0 - Panic disorder [episodic paroxysmal anxiety] (ICD-10) Depression ?F32.A - Depression, unspecified (ICD-10) Anxiety ?F41.9 - Anxiety disorder, unspecified (ICD-10) COVID-19 ?U07.1 - COVID-19 (ICD-10) Migraine ?G43.909 - Migraine, unspecified, not intractable, without status migrainosus (ICD-10) Endometriosis ?N80.9 - Endometriosis, unspecified (ICD-10) Pelvic pain ?R10.2 - Pelvic and perineal pain (ICD-10) Heart murmur ?R01.1 - Cardiac murmur, unspecified (ICD-10) Hyperthyroidism ?E05.90 - Thyrotoxicosis, unspecified without thyrotoxic crisis or storm (ICD-10) Postoperative nausea and vomiting ?R11.2 - Nausea with vomiting, unspecified (ICD-10) ?Z98.890 - Other specified postprocedural states (ICD-10) Surgical History (Updated 10/02/23 @ 12:49 by Cherie Cuevas NP) History of cholecystectomy ?Z90.49 - Acquired absence of other specified parts of digestive tract (ICD- 10) History of laparoscopy ?Z98.890 - Other specified postprocedural states (ICD-10) History of section ?Z98.891 - History of uterine scar from previous surgery (ICD-10) History of ankle surgery ?Z98.890 - Other specified postprocedural states (ICD-10) History of ankle surgery ?Z98.890 - Other specified postprocedural states (ICD-10) History of ankle surgery ?Z98.890 - Other specified postprocedural states (ICD-10) Family History (Updated 10/02/23 @ 12:49 by Cherie Cuevas NP) Other Family history of breast cancer Family history of hypertension Family history of leukemia Family history of lung cancer Social History (Updated 10/02/23 @ 12:44 by Cherie Cuevas NP) Within the past year, how often did you have a drink containing alcohol: monthly or less Smoking status: Never smoker Non-prescribed substance use: denies use 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 Highest level of school completed/degree received: high school graduate Meds Home Medications and Allergies Home Medications ?Medication ?Instructions ?Recorded ?Confirmed ?Type buspirone 15 mg tablet 15 mg PO BID 07/01/23 10/02/23 History drospirenone 3 mg-ethinyl 1 tab PO DAILY 07/01/23 10/02/23 History estradiol 0.03 mg tablet hydroxyzine pamoate 50 mg capsule 50 mg PO Q6H PRN nausea and 07/01/23 10/02/23 History vomiting ondansetron 4 mg disintegrating 4 mg PO Q12H 07/01/23 10/02/23 History tablet venlafaxine 150 mg 150 mg PO DAILY 07/01/23 10/02/23 History capsule,extended release 24 hr valacyclovir 500 mg tablet 500 mg PO Q12H PRN skin breakout 10/02/23 10/02/23 History Allergies Allergy/AdvReac Type Severity Reaction Status Date / Time Penicillins Allergy Hives Verified 10/02/23 12:41 hydrocodone AdvReac Intermediate Hives Verified 10/02/23 12:41 oxycodone AdvReac Intermediate Hives Verified 10/02/23 12:41 Exam Narrative Exam Narrative: Constitutional: Awake, alert, comfortable, well-appearing, nontoxic, interactive, vital signs as charted Head: Normocephalic, atraumatic Neck: Supple, normal appearance, normal range of motion, no meningeal signs, no lymphadenopathy Respiratory: No respiratory distress, breath sounds clear Cardiovascular: Regular rate and rhythm, strong and regular heart tones Abdomen: Nontender, normal bowel sounds, soft, no CVA tenderness Musculoskeletal: Normal gait, no swelling or edema Skin: No rashes or induration, no lesions, only visible skin inspected Neuro: No neurological deficits, normal sensation Psychiatric: Oriented ?3, normal affect Assessment and Plan Assessment and Plan (1) Pelvic pain: Plan Diagnostic laparoscopy, possible CAROLEE, possible FOE, possible bilateral salpingo- oophorectomy scheduled with Dr. Archibald 10/11/2023.
== END 2023-10-02 12:30 | disposition home or self-care (01) ==
LOC: PST 12:30
PROVIDERS: PCP Family Medicine; Visit Provider Obstetrics & Gynecology
DX: Z01.818 Encounter for other preprocedural examination (principal); R10.2 Pelvic and perineal pain
CPT/HCPCS: G0463

== ENCOUNTER 2023-10-11 07:02 | Day surgery (SDC) | payer BC, SELFPAY ==
[2023-10-02 13:41] VITALS: BP 119/78; PULSE 82; TEMP 36.3; O2SAT 98; BMI 22.4
[2023-10-11] VITALS (15 sets, daily range): BP systolic 103–130; BP diastolic 67–79; PULSE 71–91; TEMP 36.4–36.5; O2SAT 95–100; BMI 22.1
--- OUTSIDE RECORDS SUMMARY | 2023-10-11 07:04 | XMS_ITS | CCD ---
Author Organization [facility] Care Team Providers Care Sales Exhibitor Name Role Phone DR AKASH MARTINEZ Admitting [...] Facility (2 sources) HYDROcodone Drug Allergy 5 [facility] Repository (2 sources) oxyCODONE Drug Allergy 5 [facility] Repository (2 sources) Penicillins Drug allergy (disorder) 5 [facility] (3 sources) Acetaminophen / HYDROcodone Drug Allergy 4 Unknown [facility] (3 sources) HYDROcodone Drug Allergy 4 Hives [facility] Work Phone: (3 sources) oxyCODONE Drug Allergy 4 Hives [facility] (3 sources) Penicillin G Drug Allergy 4 [facility] (3 sources) Penicillin G sodium Allergy to substance 4 Rash [facility] (3 sources) Penicillins Drug Allergy 4 Hives [facility] (3 sources) Sulfamethoxazole / Trimethoprim Drug Allergy 4 Rash [facility] Healthcare (3 sources) Sulfonamides (Antibiotic) Drug Allergy 4 [facility] Medications Current Medications Medication Drug Class(es) [...] 07-18-2021 Episodic Other aftercare (1 source) Other residential (current) drug therapy; Translations: [OTH SNF CURRENT DRUG THERAPY] Onset: 09-05-2021 Episodic Other upper respiratory infections (1 source) Acute upper respiratory infection, unspecified; Translations: [ACUTE UP RESPIRATORY INFECTION UNS] Onset: 09-05-2021 Episodic Unclassified (1 source) COUGH, UNSPECIFIED; Translations: [COUGH, UNSPECIFIED] Onset: 09-03-2021 Results Test Name Value Interpretation Reference Range Facility Covid-19 PCR ([facility])on 08-22 SARS-CoV-2 (COVID-19) RNA MARY+probe Ql (Unsp spec) Not detected Normal NOT DETECTED [facility] [...] for this test is supported by the [place] of Health and Human Service's (HHS's) declaration [...] SARS-CoV-2. Performed By: #### C VDTB #### [facility] [address] [place] [address] Dr. Karlos Augustin GROUP A STREP CULTUREon 08-22 S. pyogenes Ag Ql (Unsp spec) Culture Observations: NEGATIVE FOR GROUP A STREPTOCOCCUS. Normal [facility] Comment on above: Performed By: #### S ДМИТРИЙ GRASTCX #### [facility] [address] [place] [address] Dr. Karlos Augustin INFLUENZA A AND B AGon 09-03 INFLUANEGH SEE BELOW Normal [facility] Comment on above: Result Comment: Nega tive for Flu A protein angiten. Infection due to Flu A cannot be ruled out. Flu A angiten in the sample may be below the detection limit of the test. Performed By: #### I NFLUAB #### [facility] [address] [place] [address] Dr. Karlos Augustin INFLUBNEGH SEE BELOW Normal [facility] Comment on above: Result Comment: Nega tive for Flu B protein antigen. Infection due to Flu B cannot be ruled out. Flu B antigen in the sample may be below the detection limit of the test. Performed By: #### I NFLUAB #### [facility] [address] [place] [address] Dr. Karlos Augustin INFLUENZA A AG Negative Normal NEGATIVE SEE COMMENT [facility] Comment on above: Performed By: #### I NFLUAB #### [facility] [address] [place] [address] Dr. Karlos Augustin INFLUENZA B AG Negative Normal NEGATIVE SEE COMMENT [facility] Comment on above: Performed By: #### I NFLUAB #### [facility] [address] [place] [address] Dr. Karlos Augustin INTERNAL CONTROLS Within Normal Limits Normal Wi thin Normal Limits [facility] Comment on above: Performed By: #### I NFLUAB #### [facility] [address] [place] [address] Dr. Karlos Augustin STREPT SCREENon 09-03-2021 STREP SCREEN A Negative Normal NEGATIVE The [facility] Comment on above: Performed By: #### S ДМИТРИЙ GRASTCX #### [facility] [address] [place] [address] Dr. Karlos Augustin PREG HCG QUALon 08-01-2021 , QUAL Negative Normal NEGATIVE The [facility] Comment on above: Performed By: #### P REG #### [facility] [address], [place] [address] Dr. Karlos Augustin PREG HCG QUALon 07-04-2021 , QUAL Negative Normal NEGATIVE [facility] Comment on above: Performed By: #### P REG #### [facility] [address], [place] [address] ABDOMEN AND PELVIS W IV C [facility] 04-05-2021 CT ABDOMEN AND PELVIS W IV CONTRAST [facility] Department of Radiology [address] [place] [id number] Patient Name: RAJIV TOVAR : 1995 Sex: F Age: Race: White Pt. Location: [facility] Patient Status: D Ordered Date: 03/21/2021 4:00:00 PM Completed Date: 04/05/2021 03:49 PM Requesting Provider: ДМИТРИЙ CALLAHAN Attending Provider: ДМИТРИЙ CALLAHAN Report Copy To: ALON WEBER Signs & Symptoms: R10.31 Right lower quadrant pain I10 History: [place] Is patient on meds for HTN or DM? 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 Per [employer] for CPT 75830 Ref#[id number] Med Nec-Passed *SLA Comments: Exam: CT ABDOMEN [...] Electronically signed: Noemy Stanley M.D.. Transcribed by: [email or web address], User Resident: Electronically Signed by: NOEMY STANLEY @ 04/07/2021 01:25 PM Normal The [facility] CHEST 2 [facility] 03-21-2021 [facility] CHEST 2 [facility] Department of Radiology [address] [place] [id number] Patient Name: RAJIV TOVAR : 1995 Sex: F Age: Race: White Pt. Location: [facility] Patient Status: D Ordered Date: 03/21/2021 2:25:00 PM Completed Date: 03/21/2021 02:22 PM Requesting Provider: ДМИТРИЙ ACLLAHAN Attending Provider: Report Copy To: Signs & Symptoms: R07.81 Pleurodynia I10 History: [place] Comments: right ribs pain Exam: [facility] CHEST 2 [facility] CHEST 2 [facility] 03/21/2021 2:22 PM CLINICAL [...] disease Electronically signed: Cyril Olivo. Transcribed by: [email or web address], User Resident: Electronically Signed by: CYRIL OLIVO @ 03/22/2021 02:39 PM Normal [facility] Comment on above: Order Comment: right ribs pain Coding Summary.on 03-03-2021 Coding Summary. CD:[id number] G h0bWw+PGhlYWQ+VG1BWVT kB25euUHyaB5PG6fEQC8S CPIVTUWKOK2ZUL4ayLM7F QjaP1WqlsXs PozecUKuHU28UDu6JMS0g MzoQDapqO3fzNZwF2b6Yf PrWK80nW49NCtqODZaEbO 3LjZpbjsgbWFy G1mqJzEbmIFaOsg+PHRhY mxlIHdpZHRoPScxMDAlJy FhzPprPJ5sBz2kUOTaFDE vbGxhcHNlOiBj u4alTTGqSXzuQK3unTopQ 6DrnVN0DUHky2s9Rl21aU I+AYYmWZT3rVsjTVqss19 0TiGnc2byJWE6 jRFjSOdtWIX2Y15tc1D8O MYuNKFbEHD7oEU5mV6pvS uxpmktU5OjeDZmYiE4EUW 7kGLktC5viXbj wvkgeG0lOxx+U37HLB4RG MRHIW4LNnt9X4BmMlpnpO I+AT31YPKdEI49rUQqfMZ uu4qenLb2TvTd AIOlWDM5kTxnMFwrj9HqJ HSlT57ngDVwd4R5ZTMdcU qgpNEnObHfoUL0mV9zMOx apmhjb1yrbahn Cndff3zlvo75aG59P91tD VqwWOZdKLC0OHDeQTDyzJ vyxn4tvU2kPu7+KOxed6m yg5hgjPf0ApFl JISqzzVydWjoCHX0c0LvB i89H8GvrCwbf9NcNto3ki 94uOFen9Q7mIN4LTwuUVW xaJ6wFDyjKlK2 JGNpCpYgaC22iZLpTSmmE x1jmAnjiRrhAF9fHWMcap fsZVLftR2pQDSxmSFnwVa hXG0eRUMetvvq h336ArTqYNB2PNLydVCyL 2QlpB1rMwCjQQLeYFWpY6 EyrDRuQTzsV001MHhwUaN 0OWWdfrHvT5Qp MYJacDrrOpA8d5Q0Zd7Ps 2QyqljnBJT3OGiuUSH9Od QdZvJkAvL6H1DeMgz6WFF skUteRE5hQ8Qb NVSdyszwkkjfsTD5NJBnS JLqlW25lXIcZKxxZj5cz5 B4z589OLZbBBGwjV70Jo0 udDogMTBwdCBU xC6vygayh7pnqgtgEwIeA DFuXJg0NJt8XDZbxViwJf HeFOE3SmT1WMN7mBUbjG3 xpPszuxpuvI4p Oyc+H05ofX2eVUJ8UXN3q qwkNARgmhVaVT68RO12M8 RyPjwvdGFibGU+PGRpdiB ceJfqAX1lMhUu h7sgw2MpOLdoL6RwDYGnJ LzcNyv4KNFyTIW2zIT6nT 9tZBWgDXwmq9Q7lHG6X9Q ndvRrme9tx0qm VFEoWHyxR09woOGao0R8U PJdeLR5OFBioMxiVtCplI 93Oyc+TERmmWwet8SmXcs zl1dan1byoLs5 XsRjKEKoyyEpcNhyWTE3q 1VwYz86P81pUJscBIChSV JhHVIjJWUphPsksd3ngK3 wIi8+PGNvbCB3 aOG6aW3aVAMqTgY2AGhpY 238MoDgbSCkWqpgi7ibl4 trnLw4HdCfNDBlffZprCz eJPO3k6GlCq15 P24dHIxuOWZqVXPvRDBoD RXinMlyik2wrX8lOw5+PC 7po1rfej04iX21yHH+PHR kJGA9cYcrFHpr LZVztO4jGQpzZvE6YJBvL nOjnK81oSYtAGtnDa9waE zvdTmoCP2oZBLomzjkp76 2XaMyl5ulRSCv dHTjFBlmOCJ1J52bt3S1D XXfBRJhPLB7tBW8bK8phV lnbjogbGVmdDsgdmVydGl fVEctHQqzY044 IHRvcDsnPlBhdGllbnQgT uWzROm6N7SjPsx1JHVobY riGM3chSByTGfpWl7zwZx tzOroGN6qUFCa tuoge760RjBoy1mpMTElt BDkMIhsJSI9C30bt8N8XF FbTQIvIJF8eTG1nS4llVc nbjogbGVmdDsg xcWexAhjLOagDYgaB998Q HRvcDsnPkJpcnRoIERhdG D6KW00WF26qPSlm0Z2oYL 3H7WzJXTcahxr czcdxFH0OAHsKAGahP79D n7xcCehJa7iDBQeNTO9RZ HycJQcS1AxuP6iYwNfKLF bDRBeJ4ZteVLk ZHbgB121LZbuCdO0XZAuq bKtQ8SyLEDkeZfmKgW8a0 V0Kv9PA5J0KW75HV25kHI sp4M7kYU1B3Ap JZWhfnrpcecsnQS6XQOlW EFyfZ20Nj1dvNfgUu8bZD VpBJJ1YUBuuFNdI7FduB5 yOiAjMDAwMDAw F3VupKShYQdoM853DMktX gH7XITjmyOlE8YeQUFhhQ xpZoN6e6X9Ud8CYVe7LN6 7AK46wRRvm6M6 jQN1L8WlLFPtrhlfylpwx RF1WXBaOYMvjT81Xa6yaW hfKq1eGSBnBZL3EFBxyHQ aY1IalX9gCnHv BWAfGXUcZ0HspPHlGMptN 249KXjtKjZ5KEPuwwRnA0 OgNMAszJenIuR6c1E5Qv6 HCXCdMO70GSZ5 mEM9IQ35EE86T9IrKgfac GFibGU+PHRhYmxlIHdpZH RoPScxMDAlJyBzdHlsZT0 nGv6yQQSvXHWp cFkvgYBnIuKaa9fzNFMhL PsbQI7gyZcxI7MtsPM5KP Lsx8n1Qc30E87jN2SbhCD +UXSbyGC7rMZ2 xU5xCpAbTpU9QZzxW646J wGodRVrAfbud9qcw4pvsI u6OlB2ZSNbdpZjrKofZTM 1w3CcEz83M83v IHdpZHRoPSIxNSUiIHZhb Jwiua0huF4jAz5+PGNvbC J1gSO8oF4zHvClQyF0MFm tZ790WoQhrWKh Fwbyl4ohw2bkaRt0AsDsG NPvzaOiiHwzSFV2c7BpHr 96B3HjzJruy9IhDrm7tm8 8dJAxf1X2fRY0 L2SuAXWnlttmyDAbmNryT C6qQSGkvalaFWFvqH7jCS SqE5c4FuRsTrD4DEgjG6M zbjV3DSCriZCo COucRZW9Y50fv0A4FITwP WWoDSY2nYT2mG8qjBfhai ogbGVmdDsgdmVydGljYWw wCPoqD571KKZq mGeeBQDzsV7nWBAzoVJpc XncLG5jFXFbtmyePwIMYU DXQCKAVHhOA1U1E5AeJtq 0URXpbAouYG7i zXJnMVimQu3gxFpqlApjU D0oBMTcysznDEEgmF8dPG ZqrEIomMwaPQ2yJDApihn bw829AmJcPIS2 MWFqhAXkV9ApdA6rYqQhW PDaWVEaK2TbmNDqBLjeJ4 23JKjmWeT6ZMVtugYpN9B sLWFsaWduOiB0 s9X2Ip9oSS9lEg2mJBshT I05NO65kWFem4K6zCT5U3 OsEWOannzqyovuvNG0WSK fFFCxpK75nGOb ENotVn9kw3B6z872UNWjK RGlmD13Kn1krZbpIQRotI YTuD8plxvab3mbulyaZxJ xNXYkSOi6ESk8 FMDjsBmfVmVzWUX4OyU2M AE1cMBskJ8uvNuerkaquQ 9wOyc+ImnsBHEyppZ5Z3O wKwc5YODarGfc AQ2jtLYtXLdwKf5teCnsi DdwDK3tYMRlxunpHIFolF 6gHOSsaHDzgTirXF3kMIP zykeif544IqHu BQN6ZMIjlVIsA3YzoU3hY tTmCEXvBQJeY8XrhUWdFJ djB785RRssRgB6DUEwfqM lQ4UdTARvhZbi UlE0f0P6Qm0TKF9ziML9H 1VaHxd3UUDauRngJI8zdF IaLCzqEx2duYfpxDmwID7 wNTBpbjtwYWRk mZ8jINFdqPYcuDofVM5oY ZYvpdmjp352XvFiXOJ9HH EulNIsX0UxzA5sVuUjUWY dKVYlK1MbqHDe CWntY791NQvkBdN0FBJzv rOjR5RrOJHgqKzpYiL8y3 R2Am5BcCQwS8CjN1u3K2T kPjwvdHI+PC90 BMMsAB95dPBsxURwj5mpv Ak6YuUvDTTuIVM8iByhHF pkp8NbUGLrJ02buOFoo3E 6IGNvbGxhcHNl DaRlbSN9xX1jUCvtdfimj 2movnpwNrkfs2xazq49fN 61L75jQMaoSSElNYGdCOT hYEYueJlbib1s qA1uSt4+EHGrcIJ3tGP4o W4qHuEyStT6MAmlW668Ob QpdKAxCwwaz0ijj0tdxGf 9IjIwJSIgdmFs mZvaQTA5c6IhNc65X26vX HdpZHRoPSIyMCUiIHZhbG sfye7rxS0rCm5+HK7gg6b xbl48lY13yHD+ AEKdDJI4rJmoNStuWMSbx G1eVIlqVcB3QHBwNhClqT 22hYCrXEskYj4ttJqjoHr aFA8nJVWqfjgs m359VlVzb8vlSGCyhYBoB CipIWK1T09rs8D3FAJnCR YgIXC1nKM2bN8rfAropig gbGVmdDsgdmVy iKxeDImhOKauB408TAGcq MlnQjQdlQByB7dfzwPIME 1lOjwvdGQ+EKZcOPY0nYr qVEsfQEHoxE4p DCLrM7n1QsPbHoP7KFnzQ 3NwlwI6LECoqKKfRKXavU ZGfP7uuvpxy9ddvsrkTyW xLUShHOw6UEx4 OOGpbXzpGqXsGYU0AwA5P RB2eUVhpU9hvMoxenncsP 9wOyc+RklOOjwvdGQ+PHR oBEP0lMwwTEea EMFudL1jMEDxD0d0QiTnE tR8DHuaC0SiwvG0FGDqkY VaZVAlcMTDjY3lhnmbl1g vcjogIzAwMDAw GUq0CVj9TZMghDmiBiVkQ ZP0AaR3LUU8xWMbqN7ddB fvvgtxvD9mVsb+TVJOOjw vdGQ+PHRkIHN0 lCgiBRyhSEYdnG8zJYVcL 1n7BnJyMzY5XOqrO9Sran O4QCZmwZXdIBVfcEGTaA9 tygzej5uomsgp GzFtULWzZMr3WTr0YXPuk XikXgYrAZF9GgC6DDJ8hD TzdA7rjLbcjdjckC8sTrb +ZAX5IVI3ZQ07 BD59G1QzZsrauUVetDM+P HRhYmxlIHdpZHRoPScxMD AsNfTgpMisOI7nSm6oEHJ yLWNvbGxhcHNl OiBj (more content not included)... Normal [facility] Auto Diffon 02-28-2021 Basophils/100 WBC (Bld) 0.4 % Normal 0.0-2.0 [facility] Comment on above: Order Comment: Order Added by Discern Expert. Performed By: #### 2 145327, 1411011, 96778847, 73215769, 78002099, 72188586, 7059026, 9539188, 9402972, 7769512 ####[address] [place] [address] Basophils/Leukocytes Auto (Bld) [Pure # fraction] 0.0 E9/L Normal 0.0-0.2 [facility] Comment on above: Order Comment: Order Added by Discern Expert. Performed By: #### 2 569357, 5687468, 42848333, 01943179, 82839032, 56709238, 1036849, 4294176, 4984896, 5272039 ####[facility] [address] [place] [address] Eosinophils/100 WBC (Bld) 0.6 % Normal 0.0-8.0 [facility] Comment on above: Order Comment: Order Added by Discern Expert. Performed By: #### 2 863507, 6328472, 92466461, 29472079, 02052114, 47295219, 0378773, 8999782, 9840695, 0731901 ####[address] [address] Eosinophils/Leukocyt es Auto (Bld) [Pure # fraction] 0.0 E9/L Normal 0.0-0.5 [facility] Comment on above: Order Comment: Order Added by Discern Expert. Performed By: #### 2 812522, 7391079, 55850666, 41567644, 53491158, 59057022, 9854528, 6626336, 7756332, 2085109 ####[address] [place] [address] Lymphocytes/100 WBC (Bld) 7.9 % Low 14.0-50.0 [facility] Comment on above: Order Comment: Order Added by Discern Expert. Performed By: #### 2 257366, 6764850, 31509086, 89187854, 48488012, 38357282, 7433987, 0927861, 5472430, 5099080 ####[address] [place] [address] Lymphocytes/Leukocyt es Auto (Bld) [Pure # fraction] 0.4 E9/L Low 1.0-4.0 [facility] Comment on above: Order Comment: Order Added by Discern Expert. Performed By: #### 2 979342, 8439013, 16563766, 35353333, 68624610, 81012976, 9230695, 1743351, 8507484, 9629968 ####[facility] [address] [place] [address] Monocytes/100 WBC (Bld) 5.5 % Normal 4.0-14.0 [facility] Comment on above: Order Comment: Order Added by Discern Expert. Performed By: #### 2 189883, 9978520, 48193813, 74051741, 19009787, 17810115, 3494455, 1798962, 4741684, 1845558 ####[address] [place] [address] Monocytes/Leukocytes Auto (Bld) [Pure # fraction] 0.3 E9/L Normal 0.2-1.0 [facility] Comment on above: Order Comment: Order Added by Discern Expert. Performed By: #### 2 137674, 5954772, 89542734, 86858152, 27350568, 02059370, 6668625, 7492403, 0978701, 3254198 ####[address] [place] [address] Neutrophils/100 WBC (Bld) 85.6 % High 36.0-75.0 [facility] Comment on above: Order Comment: Order Added by Discern Expert. Performed By: #### 2 361201, 5690748, 50706647, 89361581, 94262255, 08698169, 9032933, 9632364, 9811664, 6631736 ####[facility] [address] [place] [address] Neutrophils/Leukocyt es Auto (Bld) [Pure # fraction] 4.5 E9/L Normal 2.0-7.5 [facility] Comment on above: Order Comment: Order Added by Discern Expert. Performed By: #### 2 299137, 0348886, 14477806, 86601538, 70644469, 11085031, 8601693, 8777623, 1095258, 9086452 ####[facility] [address] [place] [address] B hCG Qualon 02-28-2021 Beta hCG Ql Negative Normal [facility] Comment on above: Performed By: #### 2 805169, 1497982, 05662463, 66874085, 02176332, 52190589, 4526393, 5857348, 4556356, 2838960 ####[facility] [address] [place] [address] BMPon 02-28-2021 Creatinine [Mass/Vol] 0.7 mg/dL Normal 0.5-1.3 [facility] Comment on above: Performed By: #### 2 177298, 4071363, 70879898, 78395803, 20153028, 53654690, 5078411, 4616759, 0483946, 2250475 ####[facility] [address] [place] [address] Urea nitrogen [Mass/Vol] 9 mg/dL Normal 5-21 [facility] Comment on above: Performed By: #### 2 365295, 6074066, 63409268, 15318101, 98055739, 13062235, 5362844, 0548816, 5157121, 2526736 ####[facility] [address] [place] [address] Urea nitrogen/Creatinine [Mass ratio] 13 No Units Normal 10-20 [facility] Comment on above: Performed By: #### 2 827390, 7919141, 09549828, 88512924, 18172462, 68174927, 8318287, 7781408, 4885198, 8447995 ####[facility] [address] [place] [address] Anion gap [Moles/Vol] 14 mmol/L Normal 6-16 [facility] Comment on above: Performed By: #### 2 415766, 0505944, 23125092, 43361549, 87842649, 90714502, 7964698, 3023565, 9260307, 8351848 ####[facility] [address] [place] [address] Calcium [Mass/Vol] 8.5 mg/dL Low 8.9-11.1 [facility] Comment on above: Performed By: #### 2 917686, 6779573, 33121193, 86320586, 68604638, 20650348, 3558544, 1747136, 1550657, 2206899 ####[facility] [address] [place] [address] Chloride [Moles/Vol] 102 mmol/L Normal 101-111 [facility] Comment on above: Performed By: #### 2 754709, 1421195, 18352667, 80903198, 37031092, 65377629, 2582909, 8778540, 9465009, 2907728 ####[facility] [address] [place] [address] CO2 [Moles/Vol] 21 mmol/L Normal 21-31 [facility] Comment on above: Performed By: #### 2 502983, 7341516, 79434468, 22465100, 25814811, 89266400, 4291976, 2427466, 3564128, 4743391 ####[facility] [address] [place] [address] Glucose [Mass/Vol] 95 mg/dL Normal 55-199 [facility] Comment on above: Result Comment: If t his glucose result represents a fasting glucose, interpretation should refer to the following reference range: 55-99 mg/dL Performed By: #### 2 834394, 5414315, 64663557, 17351934, 71878070, 53570016, 0783024, 1794453, 3358478, 8327736 ####[facility] [address] [place] [address] Potassium [Moles/Vol] 3.6 mmol/L Normal 3.5-5.3 [facility] Comment on above: Performed By: #### 2 396771, 2427889, 95361011, 17799831, 14008577, 59181379, 3848486, 1051400, 1956313, 0779059 ####[facility] [address] [place] [address] Sodium [Moles/Vol] 133 mmol/L Low 135-145 [facility] Comment on above: Performed By: #### 2 391881, 0327283, 47481499, 25134343, 00511179, 62738312, 6774264, 1667127, 1143742, 2375212 ####[facility] [address] [place] [address] CBC w/ Auto Diffon 1 Erythrocyte distribution width (RBC) [Ratio] 12.4 % Normal 10.9-14.2 [facility] Comment on above: Performed By: #### 2 656976, 2252583, 67964952, 25933680, 72072807, 58181662, 5032459, 2467153, 8684883, 0591256 ####[address] [place] [address] Hematocrit (Bld) [Volume fraction] 38.1 % Normal 34.0-46.0 [facility] Comment on above: Performed By: #### 2 667171, 3456340, 69847900, 18951507, 58595424, 29620648, 6730203, 4955154, 8209026, 5981510 ####[facility] [address] [place] [address] Hemoglobin (Bld) [Mass/Vol] 13.3 g/dL Normal 12.0-16.0 [facility] Comment on above: Performed By: #### 2 230222, 7662423, 25429627, 72283210, 34026001, 59322047, 0398340, 8875008, 4488395, 8204203 ####[address] [place] [address] MCH (RBC) [Entitic mass] 31.7 pg Normal 27.0-34.0 [facility] Comment on above: Performed By: #### 2 549588, 7468154, 64996240, 67631394, 07384080, 61902875, 8280184, 5847807, 9764489, 2028205 ####[address] [place] [address] MCHC (RBC) [Mass/Vol] 35.0 g/dL Normal 31.4-36.0 [facility] Comment on above: Performed By: #### 2 750374, 0424720, 17031212, 91176092, 38868636, 49396553, 9637453, 7599136, 7327172, 4388822 ####[address] [place] [address] MCV (RBC) [Entitic vol] 90.8 fL Normal 80.0-100.0 [facility] Comment on above: Performed By: #### 2 498624, 8532457, 06734574, 83270427, 08258971, 40404813, 6209915, 8611398, 1536035, 4363101 ####[address] [address] Platelet mean volume (Bld) [Entitic vol] 10.0 fL Normal 6.4-10.8 [facility] Comment on above: Performed By: #### 2 023513, 5849251, 43614710, 47330957, 33894827, 33019292, 1855384, 2841113, 2690369, 8697848 ####[address] [address] Platelets (Bld) [#/Vol] 144.0 E9/L Low 150.0-500.0 [facility] Comment on above: Performed By: #### 2 410018, 4391937, 07916487, 90373780, 56917116, 75290597, 2452732, 8832919, 5792711, 2335023 ####[address] [address] RBC (Bld) [#/Vol] 4.2 E12/L Low 4.3-5.9 [facility] Comment on above: Performed By: #### 2 617421, 9313854, 56649350, 81381533, 19769696, 14331319, 3333542, 4260207, 4889843, 9325810 ####[facility] [address] [place] [address] WBC corrected for nucl RBC Auto (Bld) [#/Vol] 5.3 E9/L Normal 4.0-11.0 [facility] Comment on above: Performed By: #### 2 847922, 0010688, 68648612, 33790009, 41117089, 51956136, 2201937, 3236125, 9794377, 5098340 ####[facility] [address] [place] [address] COVID-19 ([facility])on 02-28-2021 SARS-CoV-2 (COVID-19) RNA MARY+probe Ql (Unsp spec) Not detected Normal Not Detected [facility] Comment on above: Result Comment: This test result should be correlated with clinical presentations and medical history by a healthcare provider to determine its clinical significance. This assay was performed by a reverse transcriptase real-time polymerase chain reaction (rt PCR) method on the [employer] system. This test has been authorized only [...] or revoked sooner. Performed By: #### 2 [id number] #### [facility] [address] [place] [address] SARS-CoV-2 (COVID-19) RNA MARY+probe Ql (Unsp spec) Pass Normal Pass [facility] Comment on above: Performed By: #### 2 [id number] #### [facility] [address] [place] [address] Specimen source Nom (Unsp spec) Nasal Normal [facility] Comment on above: Performed By: #### 2 [id number] #### [facility] [address] [place] [address] Employed in Healthcare NO Normal [facility] Comment on above: Performed By: #### 2 [id number] #### [facility] [address] [place] [address] First Test Unknown Normal [facility] Comment on above: Performed By: #### 2 [id number] #### [facility] [address] [place] [address] Hospitalized? NO Normal [facility] Comment on above: Performed By: #### 2 [id number] #### [facility] [address] [place] [address] ICU NO [facility] Comment on above: Performed By: #### 2 [id number] #### [facility] [address] [place] [address] ? NO Normal [facility] Comment on above: Performed By: #### 2 [id number] #### [facility] [address] [place] [address] Resides in a Congregate Care Setting NO Normal [facility] Comment on above: Performed By: #### 2 [id number] #### [facility] [address] [place] [address] Symptomatic as defined by [facility] YES Normal [facility] Comment on above: Performed By: #### 2 [id number] #### [facility] [address] [place] [address] Consent for Treatmenton 0 Consent for Treatment [id number]#1 .00CD:127 Normal [facility] D-Dimeron 02-28-2021 Fibrin D-dimer FEU (PPP) [Mass/Vol] 388 [id number] Normal 215-500 [facility] Comment on above: Result Comment: This [...] infections Liver cirrhosis Performed By: #### 2 485333, 9364902, 61188583, 56796126, 90697646, 72400884, 7100191, 9331158, 5457952, 4948515 ####[facility] [address] [place] [address] Discharge Instructionson Discharge Instructions [id number] 1.00CD:127 Normal [facility] ED Clinical Summaryon 2020 ED Clinical Summary [id number] ED Clinical Summary Person Information Name: RAJIV TOVAR/[facility] Age: 25 Years : 1995 Sex: Female Language: Nigerian PCP: Alon Weber MD Marital Status: Single [...] 02/28/2021 11:17:01 02/28/2021 11:17:01 02/28/2021 11:17:01 ADDRESS: [address] [place] [id number] PHYS DOC NOTES: MEDICAL INFORMATION: Prescriptions Given: [...] Follow up: With: Address: When: Alon Weber [address] [place] [address], [place] [address] Business (1) In 3 days DIAGNOSIS: Chest pain; Viral URI Normal [facility] ED Note-Physicianon 02-29-20 21 ED Note-Physician [...] hCG Qual CBC w/ Auto Diff COVID-19 ([facility]) D-Dimer ECG 12 Lead Adult ED Cardiac [...] Information Alon Weber In 3 days [address] [place] [address] [place] [address]- Business (1) Additional Instructions: Patient [...] Use, 01/30 (more content not included)... [facility] Comment on above: Result Comment: Elec tronically Signed By: Laureano Phillip DO\.br\Date and Time Signed: 02/28/21 11:03 EDT ED Patient Summaryon 021 ED Patient Summary [address] [address] Patient Discharge Instructions Person Information Name: RAJIV TOVAR Age: 25 Years Arrival Date: 02/28/2021 09:10:34 Discharge Diagnosis: Chest pain; Viral URI Primary Care Physician: Alon Weber MD Provider Information Primary Provider: Laureano Phillip DO Advanced Post Office Clerk:None The exam and treatment you received in the Emergency Department were for an urgent problem and are not intended as complete care. It is important that you follow up with a doctor, nurse practitioner, or physician?s teaching assistant for ongoing care. If your symptoms [...] Follow-up Instructions: With: Address: When: Alon Tatelenin [address] [place] [address], [place] [address] Business (1) In 3 days [...] opioids can be used to help relieve jtgyeqhl-cb-lmqlzc pain and are often prescribed following a [...] be struggling with addiction, tell your health care provider and ask for guidance or (more content not included)... [facility] Hep Func Panelon 02-28-2021 ALP [Catalytic activity/Vol] 52 Int._Unit/L Normal 21-98 [facility] Comment on above: Performed By: #### 2 488664, 1113625, 89676849, 04548223, 26374864, 20929748, 9707295, 7527855, 0433978, 4451277 ####[facility] [address] [place] [address] Albumin [Mass/Vol] 4.2 g/dL Normal 3.3-5.0 [facility] Comment on above: Performed By: #### 2 205161, 5148997, 14352165, 80190989, 35878533, 83590051, 9044243, 6614122, 6997726, 3753745 ####[facility] [address] [place] [address] Albumin/Globulin (S) [Mass conc ratio] 1.4 Normal 1.1-2.2 [facility] Comment on above: Performed By: #### 2 662858, 9109989, 76339191, 30556762, 22385201, 42169875, 0287169, 9765564, 5581576, 5161659 ####[address] [place] [address] ALT No additional P-5'-P [Catalytic activity/Vol] 48 Int._Unit/L High 6-46 [facility] Comment on above: Performed By: #### 2 934431, 6006018, 21824472, 21107555, 64301591, 86897202, 0571817, 7570272, 1535618, 2711013 ####[address] [place] [id number] AST [Catalytic activity/Vol] 39 Int._Unit/L Normal 5-43 [facility] Comment on above: Performed By: #### 2 867705, 7799359, 80699174, 65024931, 13571497, 25624896, 8404085, 2470813, 7220024, 3478515 ####[place] [id number] Bilirubin [Mass/Vol] 1.2 mg/dL High 0.0-1.1 [facility] Comment on above: Performed By: #### 2 941474, 4952038, 57520168, 53358900, 18954284, 75117903, 5446858, 3041812, 8032447, 7944823 ####[address] [address] Bilirubin.direct [Mass/Vol] 0.2 mg/dL Normal 0.1-0.4 [facility] Comment on above: Performed By: #### 2 304398, 8841021, 88911915, 20371056, 35916512, 85642496, 4027389, 9942071, 5628608, 6808192 ####[address] [place] [address] Bilirubin.indirect [Mass or moles/Vol] 1.0 mg/dL High 0.1-0.9 [facility] Comment on above: Performed By: #### 2 141598, 9100194, 53080879, 74541350, 14890525, 14033882, 2244976, 6566259, 5999986, 4184411 ####[facility] [address] [place] [address] Globulin (S) [Mass/Vol] 2.9 g/dL Normal 1.4-4.0 [facility] Comment on above: Performed By: #### 2 725944, 6886387, 61357129, 56412944, 15105249, 57728355, 3243702, 8208839, 8479586, 4991677 ####[facility] [address] [place] [address] Protein [Mass/Vol] 7.1 g/dL Normal 6.0-7.8 [facility] Comment on above: Performed By: #### 2 267773, 3805618, 23590599, 11049451, 93716032, 08075936, 1089779, 0339639, 0049163, 6740515 ####[facility] [address] [place] [address] Lipase Levelon 02-28-2021 Lipase [Catalytic activity/Vol] 33 U/L Normal 13-58 [facility] Comment on above: Performed By: #### 2 703985, 0848805, 13754863, 50963473, 46627886, 80456468, 8251621, 0805426, 2326936, 0774433 ####[address] [place] [address] PT & PTTon 02-28-2021 aPTT Coag (PPP) [Time] 31.5 second(s) Normal 25.1-36.5 [facility] Comment on above: Result Comment: Hepa rin therapeutic range (represented by Anti-Factor Xa activity of 0.2 - 0.4 U/mL) corresponds to PTT of 56.6 - 109.0 sec. Performed By: #### 2 656725, 7066312, 82779873, 49250139, 87164454, 37564816, 7212707, 8265853, 3395075, 0872800 ####[facility] [address] [place] [address] INR Coag (PPP) [Relative time] 1.1 {INR} Invalid Interpretation Code [facility] Comment on above: Result Comment: INR results are specifically intended to assess patients stabilized on long-term Anticoagulation therapy suggested INR?s ?Less Intensive Anticoagulation? 2.0 ? 3.0 Conventional Range 3.0 ? 4.5 Performed By: #### 2 703317, 5636440, 90588752, 52675514, 52399609, 32416750, 9117391, 1713365, 9546520, 8184814 ####[facility] [address] [place] [address] PT Coag (PPP) [Time] 13.1 second(s) High 10.2-12.9 [facility] Comment on above: Performed By: #### 2 225451, 7318569, 31688378, 83367793, 46841040, 02343554, 1020418, 1804047, 5104314, 2601855 ####[facility] [address] [place] [address] Prescriptions/Work Noteson 0 02-28-2021 Prescriptions/Work Notes [id number]# 1.00CD:127 [facility] Troponin 0 Hr.on 02-28-2021 Troponin I.cardiac [Mass/Vol] ng/mL Low 10.10-27.10 [facility] Comment on above: Result Comment: The 95% CI (Confidence Interval) PPV (Positive Predictive Value) for myocardial infarction in females is 38 pg/mL, in males 51 pg/mL. The results should be used in conjunction with clinical conditions of myocardial infarction. (Access High Sensitivity Troponin I Instructions For Use, [facility] [place], January 2018) Performed By: #### 2 455746, 3798162, 72155737, 03841423, 29788238, 49242097, 5304889, 1401394, 6674102, 5429420 ####[facility] [address] [place] [address] XR Chest Single Viewon 02-28 XR Chest [...] Granger MD Transcribed by: OLGA Technologist: Eusebio [facility] eGFRon 02-28-2021 GFR/1.73 sq M.predicted among blacks MDRD (S/P/Bld) [Vol rate/Area] mL/min/{1.73_m2} Normal >=59 [facility] Comment on above: Order Comment: Order added by Discern Expert. Result Comment: eGFR is race adjusted. AA=. Performed By: #### 2 618412, 6830929, 84138515, 60634001, 37222263, 72247693, 3877753, 2117752, 9026969, 2274586 ####[facility] [address] [place] [address] GFR/1.73 sq M.predicted among non-blacks MDRD (S/P/Bld) [Vol rate/Area] mL/min/{1.73_m2} Normal >=59 [facility] Comment on above: Order Comment: Order added by Discern Expert. 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 Kidney failure is indicated at less than 15 mL/min/1.73m2. Performed By: #### 2 171099, 2747644, 48600688, 50641462, 42522893, 00162008, 0420202, 3491856, 1998263, 6840047 ####[facility] [address] [place] [address] C Urineon 02-01-2021 Bacteria identified Cx Nom [...] Locations R1: This test was performed at: [facility], [address] [place] [address], [address] , , [facility] Comment on above: Performed By: #### 1 1962607, 3496755 ####[address] [address] Coding Summary.on 02-01-2021 Coding Summary. [id number] G h0bWw+PGhlYWQ+NW7FSFP xL48dnNClxO5JS4cHRF8U AJEZATBJMM8VNW6yfEA7Z AfwT8EoadYa RruyfMSdZP03USh1HTL1g BpiWOxslA2lwXJgZ7p0Iv YmUS53uG85GKlrAEDjQiT 3LjZpbjsgbWFy G9ekNeEqnTLhQvq+PHRhY mxlIHdpZHRoPScxMDAlJy ErgOhvMK0rJu7oKDHsKXJ vbGxhcHNlOiBj a6lbZWHxIGqeUZ0muEccI 8RmvDH0CYWhl3y9Si54wY I+JURwWAU7dQocGJurj48 8OgQnq3zuTSD1 eVEtXKlaLQH9A04of2U0J HEbYIGiMHL2iEH2yP8toS mwgflsK2SliVZwViN0UUT 9rZKbkV4dcQts smcmsS5vYpu+C72BHY2UA DFZEU9LTdr6R5NnOdbjtB I+CS47ARGtXL66dLDmmKE ly6tzbDe6IiMd QYWuXKN0yJpkRFddb2FaB OHvY44ysUMbg3J2KNJwrE hpfTCxVxQymFP1oH1eURa jrvwcn0ifnkqu Plhhc6yikt35mK88R32wQ XjlCKXpGLQ4TGLkCOAxcC shcz6kxA1lZh4+FOuaa7f rn4mgaVk2DeKm FUXdbsXubQqeNFI0k3JjT e04K3YozMseh7WuOgr0dd 72pDRmx6L8hJJ7LUgqNFZ xjF6nKVlvHqQ3 HVJvFeFreR82qLUjXEghK h9ezZqsiSttVL2rWQSgvq gnJHVihG2sOPJwzBOjmZi qGH0yZHQjabqy l384ViRfRXC3CUKaxQGjU 9YcqK5pPhDdJBHmLBUqN1 HksNDxZPnvY713EHazZnF 0OQBnxqXmX5Oq CFUrsLeoRkK3w2R0Zi3Jf 5TwoqnmNPI0EOcaGQJ8Cd JjEdFtHaD7X7TnCrk6ZXP tiLulYH5iI0Ln ZBHeraxgqnunyVL1RMAuC AIffU23bNGjKPxrUy8lx7 S3e382YFCdMNDnuP54Sc9 udDogMTBwdCBU uM8qrshdb1dszdzxVrCmF IGpCIv1NDj9ETYtzEhrKz RvCWJ3DlJ9AIO4oVYlaJ3 awIlramuxeP2z Oyc+Q09utO9lIXN9QYV5p plcONJorlQnVH61QN09U9 RyPjwvdGFibGU+PGRpdiB slCyxGU4gSkKn u5tcw4MfHJwjZ6TuGUCwG AneEjp7RPDsDMG6xHI8mO 0oUYNnMPwtd7M2sWZ5M1J bmhFiiv2wo0lt PRLaQHyzX73tkJWri2J2P TMbgYR7XXFdtFefAiPfmB 93Oyc+ZUNhuJbnw7QnNui vk0xsg6pawQe6 BnZoUNIvmxKgzVzqDRA4r 0ImLn67Y08cOKhvDLWfEF ApPFScBTMqdNgyor6vkX0 wIi8+PGNvbCB3 tJD4zK2fGATkOjW6BRpfD 253MvNfqGJiIhrqo3vex6 ehdKs5PoPyCIArykSknBr eAOY2n1PuZb92 V42oUMahNQAiAIIlQTBgF OHnrFbnzr6ijF8yXt5+PC 8ri9fmpy50tY46uSG+PHR zCPN7jVnvUPvz KLBucU7yCFumXbG7OVGmL tMwtB07bDYhPRxjPe3obZ yyhUtbFM9tGTZwatvny74 4AxFwd1uzNNBu vBShIYqlAVU0V78ep8B8L XGyUGRqRQH2fKJ4qB4zmF lnbjogbGVmdDsgdmVydGl sLNwhCHyxN820 IHRvcDsnPlBhdGllbnQgT sHdREy6J9XxStc8YLSfcL etUT8jpITsDXtyOg3yoCa ecJtcYN0eMOIt dtycp974TkKun6hpMTGuw ARkPUzlQGF3M03mn3Y0JF UsHIOmZPG6kBZ1bO7vqAg nbjogbGVmdDsg zwDevOpkYGxwXQdlM333N HRvcDsnPkJpcnRoIERhdG N1DM82GQ85oZXnv8X0lVN 6O5SrFRFxisvs azavhPF0BBRyJZXvzA28P f1icYulFd4gGLGpDSS0MK YbtWToG8LrkX8bZhFeAMS nRGOrX8RhmOJo MLfwR647JLihViO7GZQwq hTyJ3MvUUNffMjbElW1o2 L1Jy3VP9X0LC09GV53sNT ab7E0ySP0A1Ng VWVmxceaqbkhcHG4TFJqS DAyfW85Bu1wmIiaLq2uDP FkAHA8OJJeiZMuW6HdnF2 yOiAjMDAwMDAw V3JykDVgZEyyI104KPmpB iQ6RUAaneMxN1GqKJRfvH pbFvR4k2U4Kr4FWTm7AH7 8MX21bQGkc3J5 hBS5F6ZhQWIdmxvwpowst PI7MFAaXHWqeR89Du3vxY kiJy2oWKQaSST3ELVfbRT nE1MoeO3hKjYp FWBnJYSmR7PpwYWlUQfeU 245RBejVyE5QEXdcpQoB7 AvSEEqqFezCoR6d7Z8Bj7 RQELlON76IUK3 vBM3BI34NH80T9AyTtfrc GFibGU+PHRhYmxlIHdpZH RoPScxMDAlJyBzdHlsZT0 sFu5gJVAvPZVx nOdxvIEaLbWhm8veWKQnR PpgQC7sjXakJ7LjfUO2PX Meh9k1Rr54X06lI4QftMU +ODSzfJE3eON4 mR1jLcXyQfJ0UZlvV083E mKzjKXdIvhpb2okh9cihX z4LeZ7HBBnhqYpcXmeSEY 4u1ObPo50S08f IHdpZHRoPSIxNSUiIHZhb Vclhb3lsS0aFm8+PGNvbC Y1mOA2kC8gLyDpXnX6HLc iT800ChVjqOVw Zmpkv2huh0sfxPg8LbYuE RGuroFyrVmzVHO3l3OnQo 70P0DzgHzgd3LjEwg6xg6 3hOLwy0I3jCD9 N3PbJIZndohuoJLxtXmnO F1wQKPqxnaaBBSysH8vPX PqS1v3PfCxYtV9EMmqW0C fskC3UCVnhMIf AJheGJS6P66hn3N6PRRxG UYvGJN3hUP9aR5eaWpftw ogbGVmdDsgdmVydGljYWw lPRmzE157JQTq rVmdNOVfiN2oBBAsuQWop JmyCL7bSTUwhediLeLHZZ UNNKXIXCpRS2E7L3YjGby 5AORpnPrlWF7k iTUvZSxaHh5qfDclzTypC Y8tLPTegktyTAPhbQ9aAJ VdhLZmaZjuPA4wBPXjtcq vs177EcRiTSY0 EOLfhFVyL8PzgD2fFqQgW QWzCUFjW0PqbUFlSPdxZ5 28QFkvYhX9ZKTnukQcP4T sLWFsaWduOiB0 t3E6Sn7lUF4iAd2lGJjmQ Q38JP73uLGfd9U9tKT5X4 EuVZHaiogaqvfimWU8JPI rZBWilY62nNOc HEflZo2px5W6m847YUHcN IUcwF84Ss4upHlkDZVbvC OFaG4zujopx7lvdkqyZcY qESNaPDg9USb1 JNZkdThhKxXlWPX3SxC0C WK6bOPatM6xcBnpxaxwaI 9wOyc+XryeOLLwqgG1N0Z dQsq2AXSrrEqz EC0hsQXhVRpaJi5nzDqyc DprZR1wQBFhpwlbXNPjcD 6fILOceLEahQjwCP0gNYC bhhsuc528IgCa QJI2TCZqxUDyU1YtdF3fK aFpDUBaQYFeE0MdzDFvKT zyI716OJaxPkK5WLOxdtG dK5AiDQLwbUku VhK8r4R3Nu7MLZ2prPY4H 1OjWpd9PWIsxWadGI8dfW WoIRloLh9duGdppQmpWI1 wNTBpbjtwYWRk sT3fFVTxcLYtdEasMZ7eC IKhdrrvs072MtYeGXG4YE BjpMJiU9TxkN8sQwPhZIK mWSJcX3ZgnOGc PNvsO030ZRmtGgL3OGEjn yHyB1AiJSOatDjvFeW1r9 L1Oy7IlLJxG2SdH0j7N7H kPjwvdHI+PC90 JAJrLW27wNRyoVQtp7quv Ap5FnBmWNSoJGL7xDewOL rbw6OyDBXdN87kuRIzv8M 6IGNvbGxhcHNl VoHmaOK9yL7vEYurnznrq 3srzmijTksol3ulmb04rD 30H24qSYfrDQGhYKLtSYQ oVIJpwYsoxo6b aW1qSx1+XLLxsOV7qWH7v H7zKgShWcP0KYznD123Cl PzbBDpUorti6miy4lhqDv 9IjIwJSIgdmFs xQadFLH0t2LdPr35D65eC HdpZHRoPSIyMCUiIHZhbG stwh7ovE5wWw7+TM5un4y kmc90vY91sSF+ YJMeFVD2yBluJFeuWKTmt G5aVJodSnZ9JNCnZnQmiL 94cGScZLteHq6scOcrgQz lBS1qSDBxakzs y859IfRzi6zkSZSrtFJfH SicNBU8C16nc5V7QIYaLI EiEQP6qDT1uG5ezGpoduy gbGVmdDsgdmVy cTviRXwtTExgO451YCKvo EbyCtNqoOExQ7kjovXYEF 1lOjwvdGQ+RDTfBCI4oKb nVQlqUDBlvT4t LPDxK9y0AtKcNvJ1YVepD 8ZfclI4VLUaxKMoLOFtuI MNkX8kvocmc6borylyLrP xEPTrXEu0ELj2 LQPfdJpyPoXjLGR0FkY3M EW2gCPdlY2uxMwrrctzfR 9wOyc+RklOOjwvdGQ+PHR hWIO9hYpgDWsw FYXagN7cNUKtG6x7OmPkC gP6KPedV3YznrV7UCBxtT JeTRJykMZWpC0tqlllh0i vcjogIzAwMDAw UMd1JZx3WJTlfCpxVwAtX RD0GfT9VBC5eRPekH4ksF pbgvhmcX8tDgv+TVJOOjw vdGQ+PHRkIHN0 mUnvFQcuIDAmlI7mMQDbY 7w8IsGbDtX5MJztR4Lusw Z7TTJkxYFxETBbkRSShH7 qvtbbx2kcxxgc EbKmVGGqWLf3CKv9SIEdk AboCfHgXHQ0OcC3JYO6nX FfpC1jzAcvsqlqoG3nSob +QKF1VPM7XU33 CX19E0SqEhtwmNEcpNL+P HRhYmxlIHdpZHRoPScxMD XxIjBvcIacRE2fTa9gBTY yLWNvbGxhcHNl OiBj (more content not included)... [facility] B hCG Qualon 01-31-2021 Beta hCG Ql Negative [facility] Comment on above: Performed By: #### 2 497531, 0380128, 6227764, 58438132, 7035384, 46449528, 7718266 ####[address] [place] [address] Discharge Instructionson Discharge Instructions [id number]# 1.00CD:127 [facility] ED Clinical Summaryon 2020 ED Clinical Summary [place] [id number] ED Clinical Summary Person Information Name: RAJIV TOVAR/[facility] Age: 25 Years : 1995 Sex: Female Language: Nigerian PCP: Alon Weber MD Marital Status: Single [...] 01/30/2021 23:43:48 01/30/2021 23:43:48 01/30/2021 23:43:48 ADDRESS: [address] [place] [id number] PHYS DOC NOTES: MEDICAL INFORMATION: Prescriptions Given: New Medications [facility]/pharmacy #[id number], [address] [place], [place] [id number], [phone] cephalexin (Keflex 500 mg Cap) 1 Capsules [...] Follow up: With: Address: When: Alon Weber [address] [place] [address], [place] [address] Business (1) In 3 days 02/02/2021 DIAGNOSIS: Acute UTI [facility] ED Note-Physicianon 02-01-20 ED Note-Physician CD:[id number]:[id number] 2 1RG61qZeugdRvn2ayis5r YU6dEzBxdwXyWDjkTj4lb 0vgUQ58ai2zYmAwCp6+Cj xwBA0PFFiQMZZb pJ2jDSNBVirBStTuAH1bE iFSPt8ZYVXmYKpRUDhyDK 3fCOO1glckjI3eDL2oPEJ ttRMlEv7ax5o4 QxubEy2tVb5MDo47cOAyk KJhHVZEH3bvoS0hUK0gpI VsT3PrZOIkMb8MVAo5eIh ghN5vrgF3Mdq9 qJC0Hx67o9lraxPiz2DyO vO1UReriHc5qAnwKNzlcF 0nChFhXQMInL1rkTkqXU9 dmK5ismKilZup biI+IkgkWPCbVfr9yUBzS K52I6SrwDbmGsi3pKL1CG HubRWhKGXclDm5NSNFDGU BLUNvbXBhdGli xXLpHLMlaeLlhpF6AcuDR YRlEdAaKus4U0xmSNI+Cj eod8K1Rho4KZl3EVK9uZz oZMGte430PYDl yIznkFonbRIbx82fBCMch HXkFdMpo160STLzvwZ4QS rdcKvyMjp7cSDncYBjc8g haXj7ApXpQMIs WwbWTYFzpZddk8FxXazKN Dmxu7xzfaBsaAokAND2m2 PlANxiBPCdOKN9TwPwLL8 +CgkJPGNvbCB2 ZOtqC677FgYtzXYvg7xlp Ke8QgO0YPIuHd2GWAhzQ8 6wO2BmuPK+Lty5zSQyCIs +CgkJPHRyPgoJ CXx5jNLxn5G9kRT5KwVes lLag9s1CHdaHZD9DwR9BL S4gBRnfC6oaAkmuzamnH4 wOyI+CgkJCTxk pAZfI5emg6K1FqPnj1Wuf VruuiMpWACeCiNxh8dsQm ytCJBmeA1nSHD3WuOkGMD leHQiIGlkPSJf KqMhBSEhTfBhUAYsEq35Y qNxJRj4UJhlVepoENR6Kr HvFsIuKaDxsFrkHB9prEH kZGluZzogNHB4 OyI+XWTjIA8yS4kcy7U6A zYac7VceWhcsyCkm0JsBH mkCyorsNWwNUU1dMxnOFQ yh174CDtzrUgj oRuvZj7bNSqyjXJ3hG8kC RZptnO1oJ7nXoR0vvZjhg salfY4Oj5GHNZgLuIFhgJ zcv5rbMgoygou z0Cqlr23D2LiAG8+CgkJC ThvpBIaL8diy5C3PmXgm1 Cjr97ybwA0AW2urTW3PUN nHHHbZqFhz3dn YmxlIGRkZnJlZXRleHQiI DMlUvO9oaEbb3K6eV7pg7 B6pSI6OeBsqU0cuXbolNG jAWX6zMGixQtv xZRmG0mbTAFWD4uiB84LL PMDZBLDGFGvBTs5MYgiTz QiIGlkPSJfYTMyMjFhZGU iACMsWW04DpOa NRNzQTLuTrN2FDWfSbO8Q TP6Xi69r9YndyHacUzhHR 7upZDlG5jgFaMqpXKuOMq hCgMhXTXnlA5u HrEztBH3JLGxdAOnEFbpL 391YOisSfY8NZHmbE6jWd LxO8HnTWomRUnsAAr5LZS ykfZrv3I9jWB5 NL6jcd2tlPeeOt4ygD15W GesvHY3DA1dvf3fvRfwmL X6lK0zEPEssoA5mJ5bPoU iy67qQyZ+JiN4 IJG7Ky7hyKPxaXcmxSqoO vNxZICiXVX1ODdpEAAzCB 1qN6arHYl7X7GvJF6+PGJ yIC8+CgkJCSYj kNWoXszdTVr9SoeLTTcVJ FOokiSzwGXlyi3nNSKsjj SdfVU4xDQuIMQqaJ46ISZ cVZPpYLD6VpCl QnmkOHJnzwgnsYyoPF9no J3nCSBnX5s0NlKtSV2uLu gzZpA8YWfcDTh0DMacBVr zPD18ZQd9SJTl NGG5AgAiZmFuUdGxq6I8p WJ4OcOue9RlNSi7IV8pmq B3Sb40S3Rivw5AFQmUOK8 kaXY+CgoJCQk8 QDz0KOMsUESsTVCaSTHfS 8Lma04vPZDqKRFvTWFaLJ PsFOZwWScjn2LxjKGpCIS 8XHg5FNUudzWf u8ZgVidgJwWgCUnnPAF3i J8lS71bFB2mBJ3SLkDnVK EePIMeAsDsnXH6Tp83SvF 9YCA5PN29YtZr LGG4XEwuXLn3Ab0tXNOvN lSrKZD6KGuyNRG7hSfdZY FoKNUrsW3tWoH5yXf0Sr5 5b7MdmoGzsCTt qn7oKARnWKO8wS3sDBrfo GxheSI+ZETfMC7kk0Y5lG I6LzTtyyZfb1GcF4s9AeQ gs7gmKxO4XWm7 RSUuV66qIWHti440VCUgZ GVybGluZTsiPkNoaWVmIE UkdUEuOAspdHyyb8Vjxl2 1R5ZuHY8+CgoJ NLa1BBh0CZXvZMNgTKJoM GVtcmNvbnRlbnQiIGRkOm JedgRjooA4cBBgKYRSLZS FCXXSH49FAPTs AUShHtRpNtVnOQ4hGMI9k DT5WrMTVgVfDTw0CQGvNM GoWNBUHy8BTPKwIBONAAZ ZOJW5WJBTBVCf kNO4Xp03VxAoAotnAg7aW QYtFOZkMnLjJdqqXi2yVT j9QNIpKCayAaTfYavFINi 1LBe8SWHzETQw PSJkZGVtcmNvbnRlbnRpd HNtNMItywFvr3VaJivmEz EiZCtfw194MK51rKugEA0 sETSLL0IOGS7M RUFTIiBkZDplbnRpdHlpZ C2mSPk7FQW9XHIaLnPzeV W1Fz7ePLEcZgjzOb8wVVF hLTRkMWMtYjNl Sr48VEN6ENp4LGS1BmrkO AzoeX8eLiAaAEOUcG0stN uhXF3tiE5fgxJezGsjcfT +cHQgYXJyaXZl bdRyf7KzpkwfdGKkl9esV TUvTVRmKKNqiY4seFxqpG ZvdQPcrMMmaI0ayDrjTEY gHB9wZXQvDA9e Z77xlzE3owV8mBXdldtlw IThCNV6HJleIBNewObuMV OeUIRcXAQqmhHsk4VlOLm vGQ6eHIfqtlGd pLAeZzMsbfKiyS7pIAY3e 4DtSiweSUn2MkzIOSc5D1 Zzlf2ZOOuMUX2qgGS+Cgo RDYd0GRw4DVSt BLIqSUNdTLFfP0Vuy24zZ GRyZWZyZXNoYWJsZSBkZG abj5RcwBUpIDI0XAs0IAC hlmKtp2RwZhdl BeGuJCvvGZM0dX9iI19lJ U1lNQ3CJfQyCHQmUtObJk TgnHH8Zi6oB8WxHUB8IR8 hVmAgVLB8QmKx ZSz6Vz5kIOR8HfI5MKkqH FBtMYT3jEnrEWHoUMCibP 6aNhH9dJu0Is25x3SqjfQ fvZObsq1uDIEq SYT5yA1aKNvquBloiLR+P LZaAX6er4J9cWZ5DgCjcx Uut8WoO0f9CgQkc2yzJbJ 0NWq2BAHtP45q AUSjq976JFBrYUKpuRgaF WgqAbekc2Ryfwjkk4FbLD Lii0XtaLNFkXmjJQMpJS3 wtSLwLpisx5Vi th7GNlrXVOnhkBPcJ7zzz 7T6GkWeCW1hA65ruSSecK ZuXZD1H43fD4FmnF7zSRC YGuIpFMeqf743 SM56kOlhQC0mEG3GA2BNO WTbNSUhUsOaNxVxQF8qYL V7oMJ5CmJnNuNlOeB0MVK 3BEXzUFYPGp30 BjdOEYJULdU0L2P0V5M6T LHwdNZ2Dd0aKRR5HsbjQD 51ZEKfEMJfRDMqBRBdJN5 9GYErJUT7RCX2 WMttRasAAWx8NKh1LCAgY XNzPSJkZGVtcmNvbnRlbn JwmSQuReWpKAiwo034AH0 1pPpfDS2rEFLU Y7GBWQ7KDELNFkZpDBsih fCbiJidLR9bSJJqNTX5BY 63sEI2dcBvh3lqem1qDCZ taVE8Uk99GSLm PmxrXJ7tWuzaMTV2QJxlN ND9Ng42MWX9DZFmVTMzFL JdIvqGNHq7WUe7FNXgVYR zPSJkZGNvbXBv pyUbrFKwVBW0TU61pIL4p LY8pAX6lSX6UxIwg7CzlB HxcPZwxAH3Wx79J7U7Iio dKI7tH6TdXVRj MsdrEdR9Os67LUVgIzBnS KV8K2JnGyfGFGi4HMh3GA AzPWNyBVFhAKEqAFY7FBt 5ITYipwPbq9Ml IjdoIgUbMNsqaL3mzB4rt XitD9Q7sYanZGD4i7Whww lnaHQiIGlkPSJfMjlkMjM 4NDOnBZDuVK99 Pjs6HKQbFtNjZTu7PLn5Q bJ8LdL4Zh7HQFceo7VnZ4 paWpEwzKEsEDAlSbE5FTD jHY4vHKZoZW6y rBNow5u6yYMQIBegd7Syb 8JleemrbfAjoVF3fzOebl PqRX15ijO1hDTiKADvrZW fehSstLE8w4X6 BR3eXMmjeRQuuOw7wLSsl EPlqZHcQ3RcHZ4aI8LsPA 1ezJ3juFEsLDgcXXSmKZC dV4RxYTNlHP5g KTVarW9qtQ1yAVIpWPZuy bK2mIJjbMIqwHxdXTAyV9 JpYmVkIGFzIHNoYXJwLCB cdkHjg0MeCSHy x13lpVc6YHBqABohqRLxD VKqPNinx7xbWKMfYXM9CN bqXiijJH6qMPulj8ElHXT lE6rfCME0vvIu bnRseSByYXRlZCBhdCBhI OxtMUEmEA6aPSzgvuI9u4 bcayAvHBZmrJUfkW2qnGh gPPExh5KgXPMy cU0ix2G5IS0fVWGwr1BsT IVoQCV3vQTaZU6vgr3dDD NskVBsRWC4q3HqiHReMP3 oXBAaKLO6CE5z tTgeHgE3GEHiPW7bv6AcP WjajLR9dPIbUA4xGULjHH 6eo2G7fWR3ToTvAOBqahf jhL1tHpIquNy1 GPOdVKRffvmeLa65iL5nO sRcjUl3CS7dezzxou43o1 C4AMBrgFxstJIzZ1flLOX vdHRvbTogMHB4 OyI+Se8evGukfP5ofIWcT dQmvOOpGOqoc0FfebOfTn spx5Hxqp3cO3huYGx1q2Q bcsFqlIyqTI3m gAKbVXmgYd04v2W7BTGtn ZxcuIUiJHaeTo8lm6W6e6 59WNJbrXqksMThQ4uiWXN suGwwZLL0SiLo Y (more content not included)... Normal [facility] Comment on above: Result Comment: Elec [...] this condition includes: ? Antibiotic medicine. ? Lsex-ard-vbjrnqd medicines to treat discomfort. ? Drinking enough [...] these instructions at home: Medicines ? Take llki-gaa-rofapuu and prescription medicines only as told by [...] This in (more content not included)... Normal [facility] ED Patient Summaryon 021 ED Patient Summary [place] [id number] Patient Discharge Instructions Person Information Name: RAJIV TOVAR Age: 25 Years Arrival Date: 01/30/2021 20:17:08 Discharge Diagnosis: Acute UTI Primary Care Physician: Alon Weber MD Provider Information Primary Provider: Joshua Hollingsworth DO Advanced Post Office Clerk:None The exam and treatment you received in the Emergency Department were for an urgent problem and are not intended as complete care. It is important that you follow up with a doctor, nurse practitioner, or physician?s teaching assistant for ongoing care. If your symptoms [...] Follow-up Instructions: With: Address: When: [facility], [address] [place] [id number] Business (1) In 3 days 02/02/2021 In the event that this physician does not participate in your insurance network, please consult with your insurance company to find a nearby participating provider. Patient Education Materials: Urinary Tract Infection, Adult A MESSAGE TO ALL PATIENTS REGARDING OPIOIDS PRESCRIPTION OPIOIDS: WHAT YOU NEED TO KNOW Prescription opioids can be used to help relieve opghlvdr-cc-yaikrb pain and are often prescribed following a [...] be struggling with addiction, tell your health care provider and ask for guidance or call [facility]?S National Helpline at 0-794-895-XETN. v Source: [place] Department of Health a (more content not included)... Normal [facility] UA With Cult Reflexon 2020 Bacteria LM Ql (Urine sed) 1+ /HPF Abnormal Trace [facility] Comment on above: Performed By: #### 1 [id number], [id number] ####[facility] [address] [place] [address] Bilirubin Ql (U) Negative Normal Negative [facility] Comment on above: Performed By: #### 1 [id number], [id number] ####[facility] [address] [place] [address] Clarity (U) CLOUDY Abnormal Clear [facility] Comment on above: Performed By: #### 1 [id number], [id number] ####[facility] [address] [place] [address] Color (U) YELLOW Normal Yellow [facility] Comment on above: Performed By: #### 1 [id number], [id number] ####[facility] [address] [place] [address] Crystals LM Ql (Urine sed) Present Normal [facility] Comment on above: Performed By: #### 1 [id number], [id number] ####[facility] [address] [place] [address] Epithelial cells.squamous LM.HPF (Urine sed) [#/Area] 0-2 Normal 0-2 [facility] Comment on above: Performed By: #### 1 [id number], [id number] ####[facility] [address] [place] [address] Glucose Test strip (U) [Mass/Vol] Negative Normal Negative [facility] Comment on above: Performed By: #### 1 [id number], [id number] ####[facility] [address] [place] [address] Hemoglobin Ql (U) TRACE Abnormal Negative [facility] Comment on above: Performed By: #### 1 [id number], [id number] ####[facility] [address] [place] [address] Ketones (U) [Mass/Vol] Negative Normal Negative [facility] Comment on above: Performed By: #### 1 [id number], [id number] ####[facility] [address] [place] [address] Kilauea.plasma/Lithi um.RBC (Bld) [Mass ratio] 0-3 Normal 0-3 [facility] Comment on above: Performed By: #### 1 [id number], [id number] ####[facility] [address] [place] [address] Mucus Ql (Urine sed) TRACE Normal [facility] Comment on above: Performed By: #### 1 [id number], [id number] ####[address] [address] Nitrite Ql (U) Positive Abnormal Negative [facility] Comment on above: Performed By: #### 1 [id number], [id number] ####[address] [address] pH (U) 7.5 [pH] Invalid Interpretation Code 5.0-9.0 [facility] Comment on above: Performed By: #### 1 [id number], [id number] ####[address] [address] Protein (U) [Mass/Vol] Negative Normal Negative [facility] Comment on above: Performed By: #### 1 [id number], [id number] ####[address] [address] Specific gravity (U) [Rel density] 1.020 Invalid Interpretation Code 1.005-1.030 [facility] Comment on above: Performed By: #### 1 [id number], [id number] ####[place] [id number] Type of Urine collection method Clean Catch Normal [facility] Comment on above: Performed By: #### 1 [id number], [id number] ####[address] [address] Urobilinogen Qn (U) 0.2 {Arnie'U}/dL Normal 0.0-1.0 [facility] Comment on above: Performed By: #### 1 [id number], [id number] ####[address] [address] WBC Auto Ql (U) 1+ Abnormal Negative [facility] Comment on above: Performed By: #### 1 [id number], [id number] ####[address] [address] WBC LM.HPF (Urine sed) [#/Area] 6-15 Abnormal 0-5 [facility] Comment on above: Performed By: #### 1 [id number], [id number] ####[facility] [address] [place] [address] Auto Diffon 01-30-2021 Basophils/100 WBC (Bld) 0.4 % Normal 0.0-2.0 [facility] Comment on above: Order Comment: Order Added by Discern Expert. Performed By: #### 2 [id number], [id number], [id number], [id number], [id number], [id number], [id number] ####[address] [place] [address] Basophils/Leukocytes Auto (Bld) [Pure # fraction] 0.0 E9/L Normal 0.0-0.2 [facility] Comment on above: Order Comment: Order Added by Discern Expert. Performed By: #### 2 743590, 7904396, 1754327, 79019721, 4797789, 50307788, 9338259 ####[address] [place] [address] Eosinophils/100 WBC (Bld) 1.4 % Normal 0.0-8.0 [facility] Comment on above: Order Comment: Order Added by Discern Expert. Performed By: #### 2 686318, 2390819, 1718257, 76415781, 7148181, 43376986, 1916128 ####[address] [address] Eosinophils/Leukocyt es Auto (Bld) [Pure # fraction] 0.1 E9/L Normal 0.0-0.5 [facility] Comment on above: Order Comment: Order Added by Discern Expert. Performed By: #### 2 369237, 6883374, 4846019, 53439069, 2915609, 17261575, 5646691 ####[address] [place] [address] Lymphocytes/100 WBC (Bld) 23.7 % Normal 14.0-50.0 [facility] Comment on above: Order Comment: Order Added by Discern Expert. Performed By: #### 2 492566, 6056765, 8185305, 52591561, 7415434, 25083031, 9963900 ####[facility] [address] [place] [address] Lymphocytes/Leukocyt es Auto (Bld) [Pure # fraction] 1.9 E9/L Normal 1.0-4.0 [facility] Comment on above: Order Comment: Order Added by Discern Expert. Performed By: #### 2 003648, 2950742, 2463198, 96340281, 7013694, 26533272, 3236400 ####[address] [place] [address] Monocytes/100 WBC (Bld) 6.2 % Normal 4.0-14.0 [facility] Comment on above: Order Comment: Order Added by Yifan Expert. Performed By: #### 2 332759, 9017710, 4049441, 58439903, 9061367, 79239622, 9468679 ####[address] [place] [address] Monocytes/Leukocytes Auto (Bld) [Pure # fraction] 0.5 E9/L Normal 0.2-1.0 [facility] Comment on above: Order Comment: Order Added by Discern Expert. Performed By: #### 2 866853, 3374098, 1606399, 29282312, 1764565, 54026801, 4280146 ####[address] [place] [address] Neutrophils/100 WBC (Bld) 68.3 % Normal 36.0-75.0 [facility] Comment on above: Order Comment: Order Added by Discern Expert. Performed By: #### 2 849165, 4940278, 2763199, 31731088, 2199493, 41619023, 6151229 ####[facility] [address] [place] [address] Neutrophils/Leukocyt es Auto (Bld) [Pure # fraction] 5.6 E9/L Normal 2.0-7.5 [facility] Comment on above: Order Comment: Order Added by Discern Expert. Performed By: #### 2 697388, 7518672, 1658812, 61509051, 2981897, 72736395, 6910577 ####[facility] [address] [place] [address] BMPon 01-30-2021 Calcium [Mass/Vol] 9.0 mg/dL Normal 8.9-11.1 [facility] Comment on above: Performed By: #### 2 970172, 0290590, 4254410, 28519002, 9248769, 36403948, 1422733 ####[facility] [address] [place] [address] Creatinine [Mass/Vol] 0.7 mg/dL Normal 0.5-1.3 [facility] Comment on above: Performed By: #### 2 624488, 5225327, 7852091, 99765236, 4689301, 39979688, 4134756 ####[facility] [address] [place] [address] Urea nitrogen [Mass/Vol] 10 mg/dL Normal 5-21 [facility] Comment on above: Performed By: #### 2 190058, 1085913, 9637015, 14209649, 9283326, 21217707, 9689757 ####[facility] [address] [place] [address] Urea nitrogen/Creatinine [Mass ratio] 14 No Units Normal 10-20 [facility] Comment on above: Performed By: #### 2 765384, 6667828, 3054988, 82752046, 6335627, 07586501, 0035871 ####[facility] [address] [place] [address] Anion gap [Moles/Vol] 12 mmol/L Normal 6-16 [facility] Comment on above: Performed By: #### 2 039465, 7598318, 8861991, 99903570, 0912114, 14483520, 7924962 ####[facility] [address] [place] [address] Chloride [Moles/Vol] 104 mmol/L Normal 101-111 [facility] Comment on above: Performed By: #### 2 091003, 6937190, 9934832, 13859493, 6740905, 50310013, 9224947 ####[facility] [address] [place] [address] CO2 [Moles/Vol] 25 mmol/L Normal 21-31 [facility] Comment on above: Performed By: #### 2 207739, 0510596, 4314662, 68413916, 6321946, 87239399, 9474710 ####[facility] [address] [place] [address] Glucose [Mass/Vol] 93 mg/dL Normal 55-199 [facility] Comment on above: Result Comment: If t his glucose result represents a fasting glucose, interpretation should refer to the following reference range: 55-99 mg/dL Performed By: #### 2 977246, 1134798, 4800534, 71259388, 4094832, 37798107, 9497186 ####[facility] [address] [place] [address] Potassium [Moles/Vol] 3.8 mmol/L Normal 3.5-5.3 [facility] Comment on above: Performed By: #### 2 624731, 9972045, 8688992, 85131751, 0914474, 36612899, 2043592 ####[facility] [address] [place] [address] Sodium [Moles/Vol] 137 mmol/L Normal 135-145 [facility] Comment on above: Performed By: #### 2 124402, 5747058, 5139773, 00713520, 7273232, 57703409, 3272159 ####[facility] [address] [place] [address] CBC w/ Auto Diffon 1 Erythrocyte distribution width (RBC) [Ratio] 12.2 % Normal 10.9-14.2 [facility] Comment on above: Performed By: #### 2 211715, 8974137, 3557581, 34555202, 0062589, 54794481, 8762014 ####[address] [place] [address] Hematocrit (Bld) [Volume fraction] 39.3 % Normal 34.0-46.0 [facility] Comment on above: Performed By: #### 2 344158, 3535097, 8659125, 81175884, 2288871, 03544813, 7775891 ####[facility] [address] [place] [address] Hemoglobin (Bld) [Mass/Vol] 13.3 g/dL Normal 12.0-16.0 [facility] Comment on above: Performed By: #### 2 898348, 8171669, 7234311, 58908044, 2573000, 36335975, 0321760 ####[address] [address] MCH (RBC) [Entitic mass] 31.3 pg Normal 27.0-34.0 [facility] Comment on above: Performed By: #### 2 701228, 4242992, 6537081, 67307948, 9438330, 90364082, 3163872 ####[address] [address] MCHC (RBC) [Mass/Vol] 34.0 g/dL Normal 31.4-36.0 [facility] Comment on above: Performed By: #### 2 156620, 9967863, 3374760, 31290541, 1182097, 14680529, 3034278 ####[address] [place] [address] MCV (RBC) [Entitic vol] 92.1 fL Normal 80.0-100.0 [facility] Comment on above: Performed By: #### 2 353758, 4104562, 1132871, 88169397, 3070961, 37774339, 3819308 ####[address] [address] Platelet mean volume (Bld) [Entitic vol] 9.2 fL Normal 6.4-10.8 [facility] Comment on above: Performed By: #### 2 719799, 4214400, 0875660, 21334281, 0493674, 82435791, 2653080 ####[facility] [address] [place] [address] Platelets (Bld) [#/Vol] 214.0 E9/L Normal 150.0-500.0 [facility] Comment on above: Performed By: #### 2 887316, 2810649, 6546514, 15941188, 6378642, 07424608, 7036119 ####[address] [place] [address] RBC (Bld) [#/Vol] 4.3 E12/L Normal 4.3-5.9 [facility] Comment on above: Performed By: #### 2 436650, 8022799, 8677267, 23757294, 5309855, 85813528, 3749753 ####[address] [place] [address] WBC corrected for nucl RBC Auto (Bld) [#/Vol] 8.2 E9/L Normal 4.0-11.0 [facility] Comment on above: Performed By: #### 2 230696, 7406209, 4562802, 46127718, 5964500, 33915165, 1060244 ####[address] [place] [address] Consent for Treatmenton Consent for Treatment [id number]#1 .00CD:127 Normal [facility] Hep Func Panelon 01-30-2021 Albumin [Mass/Vol] 4.0 g/dL Normal 3.3-5.0 [facility] Comment on above: Performed By: #### 2 705444, 9994209, 3319474, 40795549, 9082809, 52224073, 0016529 #### [facility] [address] [place] [address] Albumin/Globulin (S) [Mass conc ratio] 1.5 Normal 1.1-2.2 [facility] Comment on above: Performed By: #### 2 079437, 2239661, 5591685, 50648634, 3388024, 72631526, 1192823 #### [facility] [address] [place] [address] ALP [Catalytic activity/Vol] 44 Int._Unit/L Normal 21-98 [facility] Comment on above: Performed By: #### 2 495493, 6377718, 2637176, 15490599, 2643398, 77646568, 6146386 #### [facility] [address] [place] [address] ALT No additional P-5'-P [Catalytic activity/Vol] 20 Int._Unit/L Normal 6-46 [facility] Comment on above: Performed By: #### 2 750664, 3027907, 7575871, 52937863, 2107675, 63359179, 8518045 #### [facility] [address] [place] [address] AST [Catalytic activity/Vol] 16 Int._Unit/L Normal 5-43 [facility] Comment on above: Performed By: #### 2 367831, 5656939, 4738644, 89643632, 5943163, 98913253, 6016825 #### [facility] [address] [place] [address] Bilirubin [Mass/Vol] 1.1 mg/dL Normal 0.0-1.1 [facility] Comment on above: Performed By: #### 2 880732, 1247964, 1863245, 43156939, 1907176, 07448684, 0191668 #### [facility] [address] [place] [address] Bilirubin.direct [Mass/Vol] 0.2 mg/dL Normal 0.1-0.4 [facility] Comment on above: Performed By: #### 2 502825, 8186766, 2708868, 47769960, 8235815, 17664848, 7837063 #### [facility] [address] [place] [address] Bilirubin.indirect [Mass or moles/Vol] 0.9 mg/dL Normal 0.1-0.9 [facility] Comment on above: Performed By: #### 2 601475, 3079928, 8778171, 69117339, 3308943, 13953502, 2366937 #### [facility] [address] [place] [address] Globulin (S) [Mass/Vol] 2.6 g/dL Normal 1.4-4.0 [facility] Comment on above: Performed By: #### 2 750064, 6093126, 5455799, 36954877, 4771344, 50176126, 6929864 #### [facility] [address] [place] [address] Protein [Mass/Vol] 6.6 g/dL Normal 6.0-7.8 [facility] Comment on above: Performed By: #### 2 242057, 0542956, 0907440, 07752834, 6586491, 10772529, 4324473 #### [facility] [address] [place] [address] Lipase Levelon 01-30-2021 Lipase [Catalytic activity/Vol] 32 U/L Normal 13-58 [facility] Comment on above: Performed By: #### 2 299747, 4078691, 1905207, 65016371, 8575021, 23319087, 9388437 #### [facility] [address] [place] [address] eGFRon 01-30-2021 GFR/1.73 sq M.predicted among blacks MDRD (S/P/Bld) [Vol rate/Area] mL/min/{1.73_m2} Normal >=59 [facility] Comment on above: Order Comment: Order added by Discern Expert. Result Comment: eGFR is race adjusted. AA=. Performed By: #### 2 611475, 1501369, 4445418, 04105565, 1419095, 25906505, 1348685 #### [facility] [address] [place] [address] GFR/1.73 sq M.predicted among non-blacks MDRD (S/P/Bld) [Vol rate/Area] mL/min/{1.73_m2} Normal >=59 [facility] Comment on above: Order Comment: Order added by Discern Expert. 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 Kidney failure is indicated at less than 15 mL/min/1.73m2. Performed By: #### 2 304818, 2448075, 9890054, 48928354, 2045128, 55786765, 8943880 #### [facility] [address] [place] [address] Provider Letteron 06-03-2020 Provider Letter June 03, 2020 To Whom It May Concern, Rajiv has been under my care and had a lap choly on 05/10/2020. She was seen post operatively on 05/23/2020 and was healing well. Rajiv is released to work on 06/06/2020 with no restrictions. Please call the office at [phone] with any questions/ concerns. Sincerely, Dr. iAden Izquierdo faxed to [facility] to [phone] Normal [facility] Ambulatory Clinical Summaryo n 05-23-2020 Ambulatory Clinical Summary {[id number]}CD:[id number] Normal [facility] General Surgery Office/Clini c Noteon 05-23-2020 [...] Aiden IZQUIERDO MD Only if needed [address] [place] [address]- Additional Instructions: F/U PRN Problem [...] 04/19/2020 Family History Family history is negative [facility] Comment on above: Result Comment: Elec tronically Signed By: Aiden IZQUIERDO MD\.br\Date and Time Signed: 05/23/20 10:17 EST\.br\Electronically Co-Signed By: Mildred Cook MA\.br\Date and Time Co-Signed: 05/23/20 09:55 EST IntraOperative Documentson 1 07-17-2019 IntraOperative Documents [id number]#1 .00CD:127 Normal [facility] Ambulatory Clinical Summaryo n 05-16-2020 Ambulatory Clinical Summary {[id number]}CD:[id number] Normal [facility] Gastroenterology Office/Clin ic Noteon 05-16-2020 Gastroenterology Office/Clinic Note Chief Complaint f/u EGD HPI Staff This is a 25 year old female who presents today for a follow up to EGD. History of Present Illness 24 years old white female with no significant past medical history except for anxiety, referred to me from [facility], ER to be evaluated for right upper quadrant abdominal pain, she reports right upper quadrant abdominal pain, started 6 weeks ago, sporadic, moderate in nature except for the last time when it was severe for which she went to [facility], ER, she had normal CBC, CMP [...] Information Ezequiel MARTINEZ MD Only if needed [facility] [address], [place] [address]- Additional Instructions: Patient Education Cholelithiasis Problem List/Past [...] Pathology Report; 04/29/2020 10:57 EST Normal [facility] Comment on above: Result Comment: [...] required. HOME CARE INSTRUCTIONS ? Only take zfor-fyi-gsrtiez or prescription medicines for pain, discomfort, or [...] Document Reviewed: 08/09/2011 ExitCare? Patient Information ?2013 [email or web address] [facility] Coding Summary.on 05-13-2020 Coding Summary. CODING DATE: 05/13/2020 FINAL [facility] STATUS: Home (Routine DC) PAYOR: Reba APC DESCRIPTION 5361 Level 1 Laparoscopy and Related Services ADMIT DX: REASON FOR VISIT DX: K81.1 Chronic cholecystitis FINAL DX: PRINCIPAL: K81.1 Chronic cholecystitis SECONDARY: K82.8 Other specified diseases of gallbladder F41.9 Anxiety disorder, unspecified PYMT PROC APC STAT DESCRIPTION DOCTOR NAME DATE 87446 5361 J1 Laparoscopy, surgical; Aiden IZQUIERDO MD 05/10/2020 cholecystectomy with cholangiography 24594 Anesthesia for Bakari Husain Jr, DO 05/10/2020 intraperitoneal procedures in upper abdomen including laparoscopy; not otherwise specified NOTE: The code number assigned matches the documented diagnosis and / or procedure in the patient's chart. However, the narrative phrase printed from the coding software may appear abbreviated, or result in slightly different terminology. Revised Coded By: Eugenia Mae Revised Date Saved: 05/13/2020 02:09 pm [facility] Main OR Intraoperative Recor don 05-13-2020 Main OR Intraoperative Record IntraOp Document Type FT Summary Primary Physician: Aiden IZQUIERDO MD Finalized Date/Time: 05/13/20 11:07:53 Pt. Name: RAJIV TOVAR/Sex: 1995 Female Med Rec #: [id number] Physician: Aiden IZQUIERDO MD Financial #: [id number] Pt. Type: A Room/Bed: Admit/Disch: 05/10/20 07:43:57 - 05/10/20 15:00:00 Institution: Case Times FT Entry 1 Patient Times In Room 05/10/20 09:29:00 Out Room 05/10/20 10:27:00 Procedure Times Start 05/10/20 09:44:00 Stop 05/10/20 10:20:00 Anesthesia Times Start 05/10/20 09:29:00 Stop 05/10/20 10:27:00 Last Modified By: My Callahan RN 05/10/20 10:27:42 General Comments: 1011- air moving technician called dr. guo read xray dilated [...] Surgeon - Primary Surgeon - Assist 1 Hot Blast Worker Time In 05/10/20 09:29:00 05/10/20 09:40:00 05/10/20 [...] TURNER, My Villalba RN, Bernadette Ortiz Cert. Internet Salesperson, Arlette Davila Role Performed Shopper Marketing Manager - Primary Scrub - Primary Scrub - [...] Magalie R Role Performed Scrub - Primary Dope Mixer Time In 05/10/20 09:29:00 05/10/20 10:00:00 Time [...] R, Coy RN, Emily A, Chapin RN, Bernadette Stephens, Angel Cert. Internet Salesperson, Arlette RCarlos VIDEO SYSTEM REPAIRER, Kim Ulloa Time Out Complete 05/10/20 09:44:00 [...] By: Artemio (more content not included)... Normal [facility] Postoperative Documentson Postoperative Documents [id number]# 1.00CD:127 Normal [facility] Progress Note-Physicianon Progress Note-Physician Patient: RAJIV [...] TID, # 10 tab(s), Refills(s) 0, Pharmacy: [facility]/pharmacy #[id number], 168, cm, 04/19/20 6:20:00 EDT, Height/Length Dosing, 58.5, kg, 04/19/20 6:20:00 EDT, Weight Dosing omeprazole 40 mg Cap-DR: 40 mg = 1 cap(s), Oral, Daily, # 30 cap(s), Refills(s) 2, Pharmacy: [facility]/pharmacy #[id number], 168, cm, 04/20/20 10:06:00 EDT, Height/Length Dosing, 59.5, kg, 04/20/20 10:06:00 EDT, Weight Dosing Documented Medications Documented desvenlafaxine 100 mg Tab-: 100 mg = 1 tab(s), Oral, Daily, Refills(s) 0, Depression Problem list: All Problems Biliary dyskinesia / SNOMED CT 609137203 / Confirmed Depression / SNOMED CT 93845510 / Confirmed Histories Past Medical History: No active or resolved past medical history items have been selected or recorded. Family History: Entire family history is negative. Procedure history: EGD (esophagogastroduoden oscopy) gastric outlet reduction (6997582320) on 04/29/2020 at 25 Years. section (17225553) on 07/23/2019 at 24 Years. Sinus (8476457637). Nasal cautery (793077399). Ankle (2234139). Comments: 05/10/2020 8:24 EST - [employer] SOCIAL WORK JOB TITLES, Bernarda Bilateral ankle stabilazation for flat feet Diagnostic laparoscopy (962567885). Comments: 05/10/2020 8:26 EST - [employer] SOCIAL WORK JOB TITLES, Bernarda ovarian cyst drained Social History Social [...] EST Heart (more content not included)... Normal [facility] Comment on above: Result Comment: Elec [...] All Problems Biliary dyskinesia / SNOMED CT 913143521 / Confirmed Depression / SNOMED CT 48545318 / Confirmed Physical Examination Vital Signs 05/10/2020 [...] 8:11 EST Apic (more content not included)... [facility] Comment on above: Result Comment: Elec tronically Signed By: Rodrigue Berry DO, Bakari Cummings\.br\Date and Time Signed: 05/13/20 13:20 EST Coding Summary.on 05-12-2020 Coding Summary. CODING DATE: 05/12/2020 FINAL [facility] STATUS: Home (Routine DC) PAYOR: Reba [...] Jaquez CphT Date Saved: 05/12/2020 09:53 pm [facility] Consent for Anesthesiaon Consent for Anesthesia [id number]# 1.00CD:127 [facility] Discharge Instructionson Discharge Instructions [id number]# 1.00CD:127 [facility] IntraOperative Documentson 1 07-11-2019 IntraOperative Documents [id number]# 1.00CD:127 [facility] Operative Reporton 0 Operative Report Date of Surgery: 05/10/2020 SURGEON: Aiden Izquierdo MD, FACS CABLE SPOOLER: Ramandeep Araujo MD, FACS PREOPERATIVE DIAGNOSIS: Chronic [...] Aiden Izquierdo MD, FACS lkr Dictated: 05/10/2020 #[id number] Typed: 05/10/2020 #[id number] cc: Alno Weber M.D. Aiden Izquierdo MD, FACS [facility] Comment on above: Result Comment: Elec tronically Signed By: TIMBO POLK, Aiden Davila\.br\Date and Time Signed: 05/11/20 08:04 EST Preoperative Documentson Preoperative Documents [id number]# 1.00CD:127 [facility] Preoperative Documents [id number]# 1.00CD:127 [facility] Consent for Treatmenton 04-24 Consent for Treatment [id number]#1 .00CD:127 [facility] Inpatient Patient Summaryon 05-10-2020 Inpatient Patient Summary [place] [id number] [facility] Clinical Discharge Instructions PERSON INFORMATION Name: RAJIV TOVAR [facility]#:[id number] PHYSICIANS Admitting Physician: Aiden IZQUIERDO MD Attending Physician: Aiden IZQUIERDO MD PCP: Alon Weber MD Discharge Diagnosis: Chronic cholecystitis with calculus Comment: PATIENT EDUCATION INFORMATION Instructions: Post Op Patient Instructions - MANFRED (CUSTOM); How to Use an Incentive Spirometer; Timbo - Post Op Instructions (CUSTOM) Medication Leaflets: Follow up: With: Address: When: Aiden IZQUIERDO [address] [place] [address] [email or web address] (1) Within 7 to 10 days Comments: Call for any problems. Call for followup appointment Type Location Start [facility] Follow Up [facility] 05/16/2020 1:00 PM 05/16/2020 1:15 PM Confirmed MEDICATION LIST Medications to Continue with No Changes Other Medications desvenlafaxine (desvenlafaxine 100 mg Tab-) 1 Tablets By Mouth every day. omeprazole (omeprazole 40 mg Cap-DR) 1 Capsules By Mouth every day. Refills: 2. ondansetron (Zofran ODT 4 mg Tab) 1 Tablets By Mouth 3 times a day. Refills: 0. Comment: Normal [facility] IntraOperative Documentson 07-10-2019 IntraOperative Documents [id number]# 1.00CD:127 [facility] Main OR PACU I Recordon 04-24 Main OR PACU I Record PACU Phase I Document Type FT Summary Primary Physician: Aiden IZQUIERDO MD Finalized Date/Time: 05/10/20 11:13:04 Pt. Name: RAJIV TOVAR/Sex: 1995 Female Med Rec #: [id number] Physician: Aiden IZQUIERDO MD Financial #: [id number] Pt. Type: A Room/Bed: Admit/Disch: 05/10/20 07:43:57 [...] By: Belkys Yarbrough RN 05/10/20 11:13 Normal [facility] Main OR PACU II Recordon Main OR PACU II Record PACU Phase II Document Type FT Summary Primary Physician: iAden IZQUIERDO MD Finalized Date/Time: 05/10/20 15:45:07 Pt. Name: RAJIV TOVAR/Sex: 1995 Female Med Rec #: [id number] Physician: Aiden IZQUIERDO MD Financial #: [id number] Pt. Type: A Room/Bed: AS06/24 Admit/Disch: 05/10/20 [...] administered during the perioperative period Finalized By: Marcelina Cadet RN Document Signatures Signed By: Marcelina Cadet RN 05/10/20 15:45 [facility] Main OR Preoperative Recordo n 05-10-2020 Main OR Preoperative Record PreOp Document Type FT Summary Primary Physician: Aiden IZQUIERDO MD Number: [id number] Finalized Date/Time: 05/10/20 10:00:50 Pt. Name: RAJIV TOVAR /Sex: 1995 Female Med Rec #: [id number] Physician: Aiden IZQUIERDO MD Financial #: [id number] Pt. Type: A Room/Bed: [place] [address] Admit/Disch: 05/10/20 07:43:57 - Institution: Case Times [...] By: My Callahan RN 05/10/20 10:00 Normal [facility] Monitor Recordon 05-10-2020 Monitor Record [id number]# 1.00CD:127 Normal [facility] Outpatient Surgery Discharge Instructionon 05-10-2020 Outpatient Surgery Discharge Instruction [place] [address] Patient Discharge Instructions PERSON INFORMATION Name: RAJIV [...] With: Address: When: [address], [address] [place] [address] Business (1) Within 7 to 10 days Comments: Call for any problems. Call for followup appointment Type Location [facility] Follow Up [facility] 05/16/2020 1:00 PM 05/16/2020 1:15 PM Confirmed Pharmacy Information: Thank you for choosing [facility] HERE ARE THE MEDICATION CHANGES THAT OCCURRED [...] possible. ? If the spirometer includes a head boys golf coach indicator, use this to guide you [...] from co (more content not included)... Normal [facility] Patient Education - Texton 1 07-10-2019 [...] possible. ? If the spirometer includes a head boys golf coach indicator, use this to guide you [...] Reviewed: 04/23/2018 Elsevier Patient Education ? 2019 [employer] [facility]. [place], [place] Aiden Izquierdo MD, FACS POST OPERATIVE [...] or r (more content not included)... Normal [facility] Progress Note-Physicianon Progress Note-Physician Patient: RAJIV TOVAR Age: 25 years Sex: Female : 1995 Associated Diagnoses: None Author: Aiden IZQUIERDO MD Postoperative Information Date/ Time: 05/10/2020 10:26:00 Preoperative Diagnosis: Chronic cholecystitis with calculus (REL25-PI K80.10, Working, Medical). Postoperative Diagnosis: Same pending pathology. Procedure: Laparoscopic Cholecystectomy with intraoperative chloangiogram. Performed by: Aiden Izquierdo MD. Hot Blast Worker: Ramandeep Araujo MD. Specimens Removed: Gallbladder. Estimated Blood Loss: 5 ml. Complications: None. Normal [facility] Comment on above: Result Comment: Elec tronically Signed By: Adien IZQUIERDO MD\.br\Date and Time Signed: 05/10/20 10:27 EST Progress Note-Physician Patient: RAJIV TOVAR Age: 25 years Sex: Female : 1995 Associated Diagnoses: None Author: Aiden IZQUIERDO MD Basic Information No change in History and Physical [facility] Comment on above: Result Comment: Elec [...] ALSO POSSIBLE. CLINICAL HISTORY: Cholelithiasis. COMMENT: Limited nzbqw-gb-fbpn C-arm images were obtained in the OR, [...] Dose: Evaserenity in mGy = 3.4 [facility] Coding Summary.on 05-08-2020 Coding Summary. CODING DATE: 05/07/2020 FINAL [facility] STATUS: Home (Routine DC) PAYOR: [place] ADMIT DX: REASON FOR VISIT DX: Z01.812 [...] CphT Date Saved: 05/07/2020 10:24 pm [facility] Coding Summary.on 05-05-2020 Coding Summary. CODING DATE: 05/05/2020 FINAL [facility] STATUS: Home (Routine DC) PAYOR: Reba APC DESCRIPTION 5301 Level 1 Upper GI Procedures ADMIT DX: REASON FOR VISIT DX: R10.13 Epigastric pain FINAL DX: PRINCIPAL: R10.13 Epigastric pain SECONDARY: R10.11 Right upper quadrant pain F41.9 Anxiety disorder, unspecified PYMT PROC APC STAT DESCRIPTION DOCTOR NAME DATE 77912 5301 Ezequiel WEST MD 04/29/2020 phagogastroduodenosco py, flexible, transoral; with biopsy, single or multiple 47840 Anesthesia for upper Husain Bakari Berry DO [...] Mae Revised Date Saved: 05/05/2020 11:48 am [facility] Consent for Procedure/Surger yon 05-05-2020 Consent for Procedure/Surgery [id number]#1 .00CD:127 [facility] Formson 05-05-2020 Forms [id number]#1 .00CD:127 [facility] Priority Order-Mitchell 2019 Priority Order-STAT Comment Invalid Interpretation Code [facility] Comment on above: Result Comment: Rece ived Performed at: [facility] [address] [facility], [place] [id number] Formerly [facility] Johanny Lozano Performed By: #### 2 [id number], SARS-CoV-2, MARY #### [facility] [address] [place] [address] SARS-CoV-2, NAAon 05-05-2020 SARS-CoV-2 (COVID-19) RNA MARY+probe Ql (Resp) Not detected Invalid Interpretation Code Not Detected [facility] Comment on above: Result Comment: This nucleic acid amplification test was developed and its performance characteristics determined by [facility]. Nucleic acid amplification tests include PCR and [...] detected) result in this assay. Performed at: [facility] [address] [place] [id number] MD Indira Washington Performed By: #### 2 [id number], SARS-CoV-2, MARY #### [facility] [address] [place] [address] B hCG Qualon 05-04-2020 Beta hCG Ql Negative [facility] Comment on above: Performed By: #### 2 [id number] #### [facility] [address] [place] [address] CBC w/Indiceson 05-04-2020 Erythrocyte distribution width (RBC) [Ratio] 13.1 % Normal 10.9-14.2 [facility] Comment on above: Performed By: #### 2 383842, 7408017 ####[address] [address] Hematocrit (Bld) [Volume fraction] 40.5 % Normal 34.0-46.0 [facility] Comment on above: Performed By: #### 2 213104, 6833512 ####[address] [address] Hemoglobin (Bld) [Mass/Vol] 14.0 g/dL Normal 12.0-16.0 [facility] Comment on above: Performed By: #### 2 787847, 6330909 ####[address] [address] MCH (RBC) [Entitic mass] 31.0 pg Normal 27.0-34.0 [facility] Comment on above: Performed By: #### 2 356461, 9961863 ####[address] [address] MCHC (RBC) [Mass/Vol] 34.6 g/dL Normal 31.4-36.0 [facility] Comment on above: Performed By: #### 2 267104, 6375423 ####[address] [address] MCV (RBC) [Entitic vol] 89.7 fL Normal 80.0-100.0 [facility] Comment on above: Performed By: #### 2 591121, 7702331 ####[address] [address] Platelet mean volume (Bld) [Entitic vol] 9.1 fL Normal 6.4-10.8 [facility] Comment on above: Performed By: #### 2 143047, 9656388 ####[address] [address] Platelets (Bld) [#/Vol] 245.0 E9/L Normal 150.0-500.0 [facility] Comment on above: Performed By: #### 2 216932, 8365766 ####[place] [address] RBC (Bld) [#/Vol] 4.5 E12/L Normal 4.3-5.9 [facility] Comment on above: Performed By: #### 2 267446, 2836389 ####[facility] [address] [place] [address] WBC corrected for nucl RBC Auto (Bld) [#/Vol] 5.6 E9/L Normal 4.0-11.0 [facility] Comment on above: Performed By: #### 2 017533, 8172955 ####[facility] [address] [place] [address] Consent for Treatmenton 04-24 Consent for Treatment [id number]#1 .00CD:127 [facility] Hep Func Panelon 05-04-2020 Albumin [Mass/Vol] 4.2 g/dL Normal 3.3-5.0 [facility] Comment on above: Order Comment: if no t already done. Performed By: #### 2 884053, 6443892 ####[facility] [address] [place] [address] Albumin/Globulin (S) [Mass conc ratio] 1.4 Normal 1.1-2.2 [facility] Comment on above: Order Comment: if no t already done. Performed By: #### 2 025607, 1400100 ####[facility] [address] [place] [address] ALP [Catalytic activity/Vol] 112 Int._Unit/L High 21-98 [facility] Comment on above: Order Comment: if no t already done. Performed By: #### 2 348565, 1867397 ####[facility] [address] [place] [address] ALT No additional P-5'-P [Catalytic activity/Vol] 129 Int._Unit/L High 6-46 [facility] Comment on above: Order Comment: if no t already done. Performed By: #### 2 294140, 8226231 ####[facility] [address] [place] [address] AST [Catalytic activity/Vol] 28 Int._Unit/L Normal 5-43 [facility] Comment on above: Order Comment: if no t already done. Performed By: #### 2 796921, 9219450 ####[facility] [address] [place] [address] Bilirubin [Mass/Vol] 0.7 mg/dL Normal 0.0-1.1 [facility] Comment on above: Order Comment: if no t already done. Performed By: #### 2 174231, 1093091 ####[address] [address] Bilirubin.direct [Mass/Vol] 0.1 mg/dL Normal 0.1-0.4 [facility] Comment on above: Order Comment: if no t already done. Performed By: #### 2 468342, 1286672 ####[facility] [address] [place] [address] Bilirubin.indirect [Mass or moles/Vol] 0.6 mg/dL Normal 0.1-0.9 [facility] Comment on above: Order Comment: if no t already done. Performed By: #### 2 126030, 2267939 ####[facility] [address] [place] [address] Globulin (S) [Mass/Vol] 3.1 g/dL Normal 1.4-4.0 [facility] Comment on above: Order Comment: if no t already done. Performed By: #### 2 765673, 5769615 ####[facility] [address] [place] [address] Protein [Mass/Vol] 7.3 g/dL Normal 6.0-7.8 [facility] Comment on above: Order Comment: if no t already done. Performed By: #### 2 941098, 2457678 ####[facility] [address] [place] [address] Ambulatory Clinical Summaryo n 05-03-2020 Ambulatory Clinical Summary {[id number]}CD:815485 [facility] Consent for Procedure/Surger yon 05-03-2020 Consent for Procedure/Surgery [id number]#1 .00CD:127 [facility] Consent for Procedure/Surgery [id number]#1 .00CD:127 [facility] Formson 05-03-2020 Forms [id number]#1 .00CD:127 [facility] Forms [id number]#1 .00CD:127 [facility] Physician Orderon 05-03-2020 Physician Order [id number]#1 .00CD:127 [facility] Physician Referralon 020 Physician Referral [id number]#1 .00CD:127 [facility] Postoperative Documentson Postoperative Documents [id number]# 1.00CD:127 [facility] Progress Note-Physicianon Progress Note-Physician Patient: RAJIV TOVAR [...] TID, # 10 tab(s), Refills(s) 0, Pharmacy: [facility]/pharmacy #[id number], 168, cm, 04/19/20 6:20:00 EDT, Height/Length Dosing, 58.5, kg, 04/19/20 6:20:00 EDT, Weight Dosing omeprazole 40 mg Cap-DR: 40 mg = 1 cap(s), Oral, Daily, # 30 cap(s), Refills(s) 2, Pharmacy: [facility]/pharmacy #[id number], 168, cm, 04/20/20 10:06:00 EDT, [...] Cardiovascular: Regular rhythm. Neurologic: Alert, Oriented. Plan [place] [employer] Anesthesiologists (ASA) physical status classification: Class II. Anesthetic Preoperative Plan Anesthesia: General. . Anesthetic plan, risks, benefits, and alternatives discussed with the patient and/or family. Communication: face to face with (patient 5 minutes, Patient educated on smoking cesstation). [facility] Comment on above: Result Comment: Elec [...] vomiting. Plan Transfer/ Discharge: Condition stable. [facility] Comment on above: Result Comment: Elec tronically Signed By: Rodrigue Berry DO, Bakari Cummings\.br\Date and Time Signed: 05/03/20 09:37 EST Consenton 05-02-2020 Consent [id number]#1 .00CD:127 [facility] Discharge Instructionson Discharge Instructions [id number]#1 .00CD:127 [facility] General Surgery Office/Clini c Noteon 05-02-2020 [...] Contact Information TIMBO POLK, Aiden Davila [address] [place] [address]- Additional Instructions: F/U POST OP. [...] Family History Family history is negative [facility] Comment on above: Result Comment: Elec tronically Signed By: Aiden IZQUIERDO MD\.br\Date and Time Signed: 05/02/20 15:39 EST\.br\Electronically Co-Signed By: Mildred Cook MA\.br\Date and Time Co-Signed: 05/02/20 15:25 EST IntraOperative Documentson 1 07-02-2019 IntraOperative Documents [id number]#1 .00CD:127 [facility] IntraOperative Documents [id number]#1 .00CD:127 [facility] Main OR Intraoperative Recor don 05-02-2020 Main OR Intraoperative Record IntraOp Document Type FT Summary Primary Physician: Ezequiel MARTINEZ MD Finalized Date/Time: 05/02/20 08:23:39 Pt. Name: RAJIV TOVAR/Sex: 1995 Female Med Rec #: [id number] Physician: Ezequiel MARTINEZ MD Financial #: [id number] Pt. Type: O Room/Bed: / Admit/Disch: 04/29/20 [...] Role Performed Anesthesiologist of Surgeon - Primary Shopper Marketing Manager - Primary Record Time In 04/29/20 10:52:00 04/29/20 10:52:00 04/29/20 10:52:00 Time Out 04/29/20 11:04:00 04/29/20 11:04:00 04/29/20 11:04:00 Procedure EGD(.) EGD(.) EGD(.) Comments Last Modified By: Haider TURNER, Russell Maloney RN, Russell Maloney RN, Russell [place] 04/29/20 11:04:13 04/29/20 11:04:13 04/29/20 11:04:13 Entry 4 Entry 5 Entry 6 Case Attendee Mere TURNER, Geno Garcia, Charlotte Bal CSTAria Role Performed Shopper Marketing Manager - Primary Scrub - Primary Staff - [...] No Outcomes Met? Yes Last Modified By: Russell Maloney RN 04/29/20 07:13:03 Post-Care Text: The [...] Arm P (more content not included)... [facility] Ezequiel Martinez M.D. [address] [place] [address] Re: RAJIV TOVAR Date of : 1995 [...] report following her procedure. Sincerely Aiden Kaplan [facility] Coding Summary.on 04-30-2020 Coding Summary. CODING DATE: 04/29/2020 [facility] STATUS: Home (Routine DC) PAYOR: [place] ADMIT DX: REASON FOR VISIT DX: Z01.812 [...] Jaquez CphT Date Saved: 04/29/2020 11:14 pm [facility] Consent for Treatmenton Consent for Treatment [id number]#1 .00CD:127 [facility] Endoscopic Procedure Report - Otheron 04-29-2020 Endoscopic [...] surgery for right upper quadrant pain/cholelithiasis [facility] Comment on above: Result Comment: Elec tronically Signed By: Ezequiel MARTINEZ MD\.br\Date and Time Signed: 04/29/20 11:03 EST Other Comment: Lorri frazier Attachment - attachment storage system not supported [id number] Can be viewed in source systemMissing Attachment - attachment storage system not supported [id number] Can be viewed in source systemMissing Attachment - attachment storage system not supported [id number] Can be viewed in source systemMissing Attachment - attachment storage system not supported [id number] Can be viewed in source systemMissing Attachment - attachment storage system not supported [id number] Can be viewed in source system Inpatient Patient Summaryon 04-29-2020 Inpatient Patient Summary [address] [address] [facility] Clinical Discharge Instructions PERSON INFORMATION Name: RAJIV TOVAR PHYSICIANS Admitting Physician: Ezequiel MARTINEZ MD Attending Physician: Ezequiel MARTINEZ MD PCP: Alon Weber MD Discharge Diagnosis: Abdominal pain Comment: PATIENT EDUCATION INFORMATION Instructions: Medication Leaflets: Follow up: With: Address: When: Aiden IZQUIERDO [address] [place] [address], [address] [place] [address] Business (1) With: Address: When: [facility] [address] [place] [address] Within 2 weeks Type Location Start [facility] Follow Up [facility] 05/16/2020 1:00 PM 05/16/2020 1:15 PM [...] times a day. Refills: 0. Comment: [facility] Main OR PACU I Recordon Main OR PACU I Record PACU Phase I Document Type FT Summary Primary Physician: Ezequiel MARTINEZ MD Finalized Date/Time: 04/29/20 12:13:51 Pt. Name: RAJIV TOVAR/Sex: 1995 Female Med Rec #: [id number] Physician: Ezequiel MARTINEZ MD Financial #: [id number] Pt. Type: O Room/Bed: / Admit/Disch: 04/29/20 [...] By: Belkys Yarbrough RN 04/29/20 12:13 [facility] Main OR Preoperative Recordo n 04-29-2020 Main OR Preoperative Record Holding Area Document Type FT Summary Primary Physician: Ezequiel MARTINEZ MD Finalized Date/Time: 04/29/20 10:21:44 Pt. Name: RAJIV TOVAR/Sex: 1995 Female Med Rec #: [id number] Physician: Ezequiel MARTINEZ MD Financial #: [id number] Pt. Type: O Room/Bed: / Admit/Disch: 04/29/20 [...] By: Marielle Pineda RN 04/29/20 10:21 [facility] Monitor Recordon 04-29-2020 Monitor Record [id number]# 1.00CD:127 [facility] Outpatient Surgery Discharge Instructionon 04-29-2020 Outpatient Surgery Discharge Instruction [place] [id number] Patient Discharge Instructions PERSON INFORMATION Name: RAJIV [...] EMERGENCY ROOM OR CALL 911 I, AKHILRAJIV CORBIN, have received the attached patient education materials/instruction s and have verbalized understanding: May we do a follow up call? Yes No I was present when discharge instructions were given Patient Signature Date Clinican/Nurse Signature Date Follow up: With: Address: When: Aiden IZQUIERDO [address] [place] [address] Business (1) With: Address: When: [facility] [address] [place] [address] Within 2 weeks Type Location Start [facility] Follow Up [facility] 05/16/2020 1:00 PM 05/16/2020 1:15 PM Confirmed Pharmacy Information: Thank you for choosing [facility] HERE ARE THE MEDICATION CHANGES THAT OCCURRED [...] Refills: 0. PATIENT EDUCATION INFORMATION Instructions: [facility] Patient Education - Texton 1 06-29-2019 Patient Education - Text [facility] Priority Order-Mitchell 2019 Priority Order-STAT Comment Invalid Interpretation Code [facility] Comment on above: Result Comment: Rece ived Performed at: [facility] [address] [place] [id number] MD Indira Washington Performed By: #### 2 [id number], SARS-CoV-2, MARY #### [facility] [address] [place] [address] SARS-CoV-2, NAAon 04-23-2020 SARS-CoV-2 (COVID-19) RNA MARY+probe Ql (Resp) Not detected Invalid Interpretation Code Not Detected [facility] Comment on above: Result Comment: This nucleic acid amplification test was developed and its performance characteristics determined by [facility]. Nucleic acid amplification tests include PCR and [...] detected) result in this assay. Performed at: [facility] [address], [place] [id number] MD Indira Washington Performed By: #### 2 [id number], SARS-CoV-2, MARY #### [facility] [address] [place] [address] Ambulatory Clinical Summaryo n 04-20-2020 Ambulatory Clinical Summary {[id number]}CD:[id number] [facility] Coding Summary.on 04-20-2020 Coding Summary. CODING DATE: 04/20/2020 FINAL [facility] STATUS: Home (Routine DC) PAYOR: Reba APC [...] Revised Date Saved: 04/20/2020 07:55 am [facility] Consent for Procedure/Surger yon 04-20-2020 Consent for Procedure/Surgery [id number]#1 .00CD:127 [facility] Gastroenterology Office/Clin ic Noteon 04-20-2020 Gastroenterology Office/Clinic Note Chief Complaint f/u to ER RUQ HPI Staff This is a 24 year old female who presents today for a follow up for an ED visit for RUQ pain. History of Present Illness 24 years old white female with no significant past medical history except for anxiety, referred to me from [facility] to be evaluated for right upper quadrant abdominal pain, she reports right upper quadrant abdominal pain, started 6 weeks ago, sporadic, moderate in nature except for the last time when it was severe for which she went to [facility], she had normal CBC, CMP and lipase, [...] Daily, # 30 cap(s), Refills(s) 2, Pharmacy: [facility]/pharmacy #[id number], 168, cm, 04/20/20 10:06:00 EDT, Height/Length Dosing, 59.5, kg, 04/20/20 10:06:00 EDT, Weight Dosing EGD Endoscopy (Hospital Procedure) 2. Anxiety (F41.9: Anxiety disorder, unspecified) 3. Nausea (R11.0: Nausea) Ordered: omeprazole, 40 mg = 1 cap(s), Oral, Daily, # 30 cap(s), Refills(s) 2, Pharmacy: [facility]/pharmacy #[id number], 168, cm, 04/20/20 10:06:00 EDT, Height/Length Dosing, 59.5, kg, 04/20/20 10:06:00 EDT, Weight Dosing EGD Endoscopy (Hospital Procedure) Follow-up With When Contact Information Ezequiel MARTINEZ MD Within [address] [place] [address]- Additional Instructions: Patient Education Abdominal Pain Abdominal [...] Family History Family history is negative [facility] Comment on above: Result Comment: Elec [...] directed by your caregiver. ? Only take fpfh-wus-stbukut or prescription medicines for pain, discomfort, or [...] Document Reviewed: 01/26/2009 ExitCare? Patient Information ?2013 [employer]. Family Medicine Abdominal Pain Abdominal pain can [...] directed by your caregiver. ? Only take lxnw-lzs-lkqnbvh or prescription medicines for pain, discomfort, or [...] Document Reviewed: 01/26/2009 ExitCare? Patient Information ?2013 [email or web address] [facility] Physician Orderon 04-20-2020 Physician Order [id number]# 1.00CD:127 [facility] Physician Order [id number]#1. 00CD:127 [facility] Auto Diffon 04-19-2020 Basophils/100 WBC (Bld) 0.6 % Normal 0.0-2.0 [facility] Comment on above: Order Comment: Order Added by Discern Expert. Performed By: #### 2 [id number] #### [facility] [address] [place] [address] Basophils/Leukocytes Auto (Bld) [Pure # fraction] 0.0 E9/L Normal 0.0-0.2 [facility] Comment on above: Order Comment: Order Added by Discern Expert. Performed By: #### 2 [id number] #### [facility] [address] [place] [address] Eosinophils/100 WBC (Bld) 0.2 % Normal 0.0-8.0 [facility] Comment on above: Order Comment: Order Added by Discern Expert. Performed By: #### 2 [id number] #### [facility] [address] [place] [address] Eosinophils/Leukocyt es Auto (Bld) [Pure # fraction] 0.0 E9/L Normal 0.0-0.5 [facility] Comment on above: Order Comment: Order Added by Discern Expert. Performed By: #### 2 [id number] #### [facility] [address] [place] [address] Lymphocytes/100 WBC (Bld) 34.4 % Normal 14.0-50.0 [facility] Comment on above: Order Comment: Order Added by Discern Expert. Performed By: #### 2 [id number] #### [facility] [address] [place] [address] Lymphocytes/Leukocyt es Auto (Bld) [Pure # fraction] 2.5 E9/L Normal 1.0-4.0 [facility] Comment on above: Order Comment: Order Added by Discern Expert. Performed By: #### 2 [id number] #### [facility] [address] [place] [address] Monocytes/100 WBC (Bld) 6.1 % Normal 4.0-14.0 [facility] Comment on above: Order Comment: Order Added by Discern Expert. Performed By: #### 2 [id number] #### [facility] [address] [place] [address] Monocytes/Leukocytes Auto (Bld) [Pure # fraction] 0.4 E9/L Normal 0.2-1.0 [facility] Comment on above: Order Comment: Order Added by Discern Expert. Performed By: #### 2 [id number] #### [facility] [address] [place] [address] Neutrophils/100 WBC (Bld) 58.7 % Normal 36.0-75.0 [facility] Comment on above: Order Comment: Order Added by Discern Expert. Performed By: #### 2 1511918 #### [facility] [address] [place] [address] Neutrophils/Leukocyt es Auto (Bld) [Pure # fraction] 4.2 E9/L Normal 2.0-7.5 [facility] Comment on above: Order Comment: Order Added by Discern Expert. Performed By: #### 2 [id number] #### [facility] [address] [place] [address] BMPon 04-19-2020 Creatinine [Mass/Vol] 0.8 mg/dL Normal 0.5-1.3 [facility] Comment on above: Performed By: #### 2 1254054 #### [facility] [address] [place] [address] Urea nitrogen [Mass/Vol] 12 mg/dL Normal 5-21 [facility] Comment on above: Performed By: #### 2 [id number] #### [facility] [address] [place] [address] Urea nitrogen/Creatinine [Mass ratio] 15 No Units Normal 10-20 [facility] Comment on above: Performed By: #### 2 [id number] #### [facility] [address] [place] [address] Anion gap [Moles/Vol] 11 mmol/L Normal 6-16 [facility] Comment on above: Performed By: #### 2 5902557 #### [facility] [address] [place] [address] Calcium [Mass/Vol] 9.7 mg/dL Normal 8.9-11.1 [facility] Comment on above: Performed By: #### 2 [id number] #### [facility] [address] [place] [address] Chloride [Moles/Vol] 103 mmol/L Normal 101-111 [facility] Comment on above: Performed By: #### 2 [id number] #### [facility] [address] [place] [address] CO2 [Moles/Vol] 27 mmol/L Normal 21-31 [facility] Comment on above: Performed By: #### 2 [id number] #### [facility] [address] [place] [address] Glucose [Mass/Vol] 97 mg/dL Normal 55-199 [facility] Comment on above: Result Comment: If t his glucose result represents a fasting glucose, interpretation should refer to the following reference range: 55-99 mg/dL Performed By: #### 2 [id number] #### [facility] [address] [place] [address] Potassium [Moles/Vol] 3.5 mmol/L Normal 3.5-5.3 [facility] Comment on above: Performed By: #### 2 [id number] #### [facility] [address] [place] [address] Sodium [Moles/Vol] 137 mmol/L Normal 135-145 [facility] Comment on above: Performed By: #### 2 [id number] #### [facility] [address] [place] [address] CBC w/ Auto Diffon 0 Erythrocyte distribution width (RBC) [Ratio] 13.3 % Normal 10.9-14.2 [facility] Comment on above: Performed By: #### 2 [id number] #### [facility] [address] [place] [address] Hematocrit (Bld) [Volume fraction] 37.6 % Normal 34.0-46.0 [facility] Comment on above: Performed By: #### 2 [id number] #### [facility] [address] [place] [address] Hemoglobin (Bld) [Mass/Vol] 13.4 g/dL Normal 12.0-16.0 [facility] Comment on above: Performed By: #### 2 [id number] #### [facility] [address] [place] [address] MCH (RBC) [Entitic mass] 31.9 pg Normal 27.0-34.0 [facility] Comment on above: Performed By: #### 2 [id number] #### [facility] [address] [place] [address] MCHC (RBC) [Mass/Vol] 35.7 g/dL Normal 31.4-36.0 [facility] Comment on above: Performed By: #### 2 [id number] #### [facility] [address] [place] [address] MCV (RBC) [Entitic vol] 89.2 fL Normal 80.0-100.0 [facility] Comment on above: Performed By: #### 2 [id number] #### [facility] [address] [place] [address] Platelet mean volume (Bld) [Entitic vol] 9.4 fL Normal 6.4-10.8 [facility] Comment on above: Performed By: #### 2 [id number] #### [facility] [address] [place] [address] Platelets (Bld) [#/Vol] 219.0 E9/L Normal 150.0-500.0 [facility] Comment on above: Performed By: #### 2 [id number] #### [facility] [address] [place] [address] RBC (Bld) [#/Vol] 4.2 E12/L Low 4.3-5.9 [facility] Comment on above: Performed By: #### 2 [id number] #### [facility] [address] [place] [address] WBC corrected for nucl RBC Auto (Bld) [#/Vol] 7.2 E9/L Normal 4.0-11.0 [facility] Comment on above: Performed By: #### 2 [id number] #### [facility] [address] [place] [address] Consent for Treatmenton 03-25 Consent for Treatment [id number]#1 .00CD:127 Normal [facility] Discharge Instructionson Discharge Instructions [id number]# 1.00CD:127 Normal [facility] ED Clinical Summaryon 2019 ED Clinical Summary [address] [address] ED Clinical Summary Person Information Name: RAJIV TOVAR/[facility] Age: 24 Years : 1995 Sex: Female Language: Nigerian PCP: Alon Weber MD Marital Status: Single [...] 08:58:55 04/19/2020 08:58:55 04/19/2020 08:58:55 ADDRESS: [address] [facility] [id number] PHYS DOC NOTES: Addendum by Laureano Phillip DO on April 19, 2020 08:26:02 EDT MEDICAL INFORMATION: Prescriptions Given: New Medications [id number], [address], [place] [id number], [phone] dicyclomine (dicyclomine 20 mg Tab) 1 Tablets By Mouth 3 times a day for 7 Days. Refills: 0. ondansetron (Zofran ODT 4 mg Tab) 1 Tablets By Mouth 3 times a day. Refills: 0. PATIENT EDUCATION INFORMATION: Instructions: Cholelithiasis Follow up: With: Address: When: [facility], [address] [place] [address] Business (1) In 3 days 04/22/2020 DIAGNOSIS: 1:Abdominal pain; Biliary colic; Gall stone; Nausea Normal [facility] ED Note-Nursingon 04-19-2020 ED Note-Nursing Report received from Zacarias Cuevas RN. Patient resting on cart. Updated on plan of care. Denies any needs at this time. Call light in reach. Normal [facility] ED Note-Physicianon 04-19-20 20 ED Note-Physician [...] Diagnosis: Abdominal pain, cholelithiasis, biliary colic Normal [facility] Comment on above: Result Comment: Elec [...] medicine. HOME CARE INSTRUCTIONS ? Only take oybf-qcc-mhdklos or prescription medicines for pain, discomfort, or [...] Document Reviewed: 12/02/2013 ExitCare? Patient Information ?2014 [email or web address] This information is not intended to replace advice given to you by your health care provider. Make sure you discuss any questions you have with your health care provider. Normal [facility] ED Patient Summaryon 020 ED Patient Summary [address] [id number] Patient Discharge Instructions Person Information Name: RAJIV TOVAR Age: 24 Years Arrival Date: 04/19/2020 06:10:12 Discharge Diagnosis: 1:Abdominal pain; Biliary colic; Gall stone; Nausea Primary Care Physician: Alon Weber MD Provider Information Primary Provider: Susana Belcher M.D. Advanced Post Office Clerk:None The exam and treatment you received in the Emergency Department were for an urgent problem and are not intended as complete care. It is important that you follow up with a doctor, nurse practitioner, or physician?s teaching assistant for ongoing care. If your symptoms become worse or you do not improve as expected and you are unable to reach your usual health care provider, you should return to the Emergency Department. We are available 24 hours a day. RAJIV TOVAR has been given the following list of patient education materials, prescriptions and follow-up instructions: Follow-up Instructions: With: Address: When: [facility], [address] [place] [address] Business (1) In 3 days 04/22/2020 In the event that this physician does not participate in your insurance network, please consult with your insurance company to find a nearby participating provider. Patient Education Materials: Cholelithiasis A MESSAGE TO ALL PATIENTS REGARDING OPIOIDS PRESCRIPTION OPIOIDS: WHAT YOU NEED TO KNOW Prescription opioids can be used to help relieve bkqjbtkb-sy-oqrudt pain and are often prescribed following a [...] be struggling with addiction, tell your health care provider and ask for guidance or call [facility]?S National Helpline at [phone] (more content not included)... Normal [facility] Hep Func Panelon 04-19-2020 Bilirubin.indirect [Mass or moles/Vol] UTC Abnormal 0.1-0.9 [facility] Comment on above: Result Comment: Resu lt verified by Discern Rule. Performed result UTC (Unable to Calculate) was sent as an Alpha code due the inability to calculate a valid numeric value. Performed By: #### 2 [id number] #### [facility] [address] [place] [address] Albumin [Mass/Vol] 4.3 g/dL Normal 3.3-5.0 [facility] Comment on above: Performed By: #### 2 [id number] #### [facility] [address] [place] [address] Albumin/Globulin (S) [Mass conc ratio] 1.5 Normal 1.1-2.2 [facility] Comment on above: Performed By: #### 2 [id number] #### [facility] [address] [place] [address] ALP [Catalytic activity/Vol] 77 Int._Unit/L Normal 21-98 [facility] Comment on above: Performed By: #### 2 [id number] #### [facility] [address] [place] [address] ALT No additional P-5'-P [Catalytic activity/Vol] 59 Int._Unit/L High 6-46 [facility] Comment on above: Performed By: #### 2 [id number] #### [facility] [address] [place] [address] AST [Catalytic activity/Vol] 36 Int._Unit/L Normal 5-43 [facility] Comment on above: Performed By: #### 2 [id number] #### [facility] [address] [place] [address] Bilirubin [Mass/Vol] 0.4 mg/dL Normal 0.0-1.1 [facility] Comment on above: Performed By: #### 2 [id number] #### [facility] [address] [place] [address] Bilirubin.direct [Mass/Vol] mg/dL Normal 0.1-0.4 [facility] Comment on above: Performed By: #### 2 [id number] #### [facility] [address] [place] [address] Globulin (S) [Mass/Vol] 2.8 g/dL Normal 1.4-4.0 [facility] Comment on above: Performed By: #### 2 [id number] #### [facility] [address] [place] [address] Protein [Mass/Vol] 7.1 g/dL Normal 6.0-7.8 [facility] Comment on above: Performed By: #### 2 [id number] #### [facility] [address] [place] [address] Lipase Levelon 04-19-2020 Lipase [Catalytic activity/Vol] 43 U/L Normal 13-58 [facility] Comment on above: Performed By: #### 2 [id number] #### [facility] [address] [place] [address] PT & PTTon 04-19-2020 aPTT Coag (PPP) [Time] 30.2 second(s) Normal 25.1-36.5 [facility] Comment on above: Result Comment: Hepa rin therapeutic range (represented by Anti-Factor Xa activity of 0.2 - 0.4 U/mL) corresponds to PTT of 56.6 - 109.0 sec. Performed By: #### 2 [id number] #### [facility] [address] [place] [address] INR Coag (PPP) [Relative time] 1.0 {INR} Invalid Interpretation Code [facility] Comment on above: Result Comment: INR results are specifically intended to assess patients stabilized on long-term Anticoagulation therapy suggested INR?s ?Less Intensive Anticoagulation? 2.0 ? 3.0 Conventional Range 3.0 ? 4.5 Performed By: #### 2 [id number] #### [facility] [address] [place] [address] PT Coag (PPP) [Time] 11.8 second(s) Normal 10.2-12.9 [facility] Comment on above: Performed By: #### 2 [id number] #### [facility] [address] [place] [address] Prescriptions/Work Noteson 1 Prescriptions/Work Notes [id number]# 1.00CD:127 Normal [facility] U BetaHcg Qualon 04-19-2020 HCG.beta subunit (U) [Moles/Vol] Negative Normal [facility] Comment on above: Performed By: #### 2 [id number] #### [facility] [address] [place] [address] UA With Cult Reflexon 2019 Bacteria LM Ql (Urine sed) TRACE Normal Trace [facility] Comment on above: Performed By: #### 2 [id number] #### [facility] [address] [place] [address] Bilirubin Ql (U) Negative Normal Negative [facility] Comment on above: Performed By: #### 2 [id number] #### [facility] [address] [place] [address] Clarity (U) CLEAR Normal Clear [facility] Comment on above: Performed By: #### 2 [id number] #### [facility] [address] [place] [address] Color (U) YELLOW Normal Yellow [facility] Comment on above: Performed By: #### 2 [id number] #### [facility] [address] [place] [address] Crystals LM Ql (Urine sed) Present Normal [facility] Comment on above: Performed By: #### 2 [id number] #### [facility] [address] [place] [address] Epithelial cells.squamous LM.HPF (Urine sed) [#/Area] 3-4 Normal 0-2 [facility] Comment on above: Performed By: #### 2 [id number] #### [facility] [address] [place] [address] Glucose Test strip (U) [Mass/Vol] Negative Normal Negative [facility] Comment on above: Performed By: #### 2 [id number] #### [facility] [address] [place] [address] Hemoglobin Ql (U) TRACE Abnormal Negative [facility] Comment on above: Performed By: #### 2 [id number] #### [facility] [address] [place] [address] Ketones (U) [Mass/Vol] Negative Normal Negative [facility] Comment on above: Performed By: #### 2 [id number] #### [facility] [address] [place] [address] Kilauea.plasma/Lithi um.RBC (Bld) [Mass ratio] 0-3 Normal 0-3 [facility] Comment on above: Performed By: #### 2 [id number] #### [facility] [address] [place] [address] Nitrite Ql (U) Negative Normal Negative [facility] Comment on above: Performed By: #### 2 [id number] #### [facility] [address] [place] [address] pH (U) 6.5 [pH] Invalid Interpretation Code 5.0-9.0 [facility] Comment on above: Performed By: #### 2 [id number] #### [facility] [address] [place] [address] Protein (U) [Mass/Vol] Negative Normal Negative [facility] Comment on above: Performed By: #### 2 [id number] #### [facility] [address] [place] [address] Specific gravity (U) [Rel density] 1.025 Invalid Interpretation Code 1.005-1.030 [facility] Comment on above: Performed By: #### 2 [id number] #### [facility] [address] [place] [address] UA Spec Desc Clean Catch Normal [facility] Comment on above: Performed By: #### 2 [id number] #### [facility] [address] [place] [address] Urobilinogen Qn (U) 0.2 {Arnie'U}/dL Normal 0.0-1.0 [facility] Comment on above: Performed By: #### 2 [id number] #### [facility] [address] [place] [address] WBC Auto Ql (U) Negative Normal Negative [facility] Comment on above: Performed By: #### 2 [id number] #### [facility] [address] [place] [address] WBC LM.HPF (Urine sed) [#/Area] 0-5 Normal 0-5 [facility] Comment on above: Performed By: #### 2 [id number] #### [facility] [address] [place] [address] US Abdomen, Limitedon 2019 US Abdomen, Limited [...] M.D. Transcribed by: OLGA Technologist: RENETTA Normal [facility] eGFRon 04-19-2020 GFR/1.73 sq M.predicted among blacks MDRD (S/P/Bld) [Vol rate/Area] mL/min/{1.73_m2} Normal >=59 [facility] Comment on above: Order Comment: Order added by Discern Expert. Result Comment: eGFR is race adjusted. AA=. Performed By: #### 2 [id number] #### [facility] [address] [place] [address] GFR/1.73 sq M.predicted among non-blacks MDRD (S/P/Bld) [Vol rate/Area] mL/min/{1.73_m2} Normal >=59 [facility] Comment on above: Order Comment: Order added by Discern Expert. 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 Kidney failure is indicated at less than 15 mL/min/1.73m2. Performed By: #### 2 [id number] #### [facility] [address] [place] [address] Encounters Encounter Date Encounter Type Care Provider [...] DERM [address] [place] [address] My Singh MD [address] [place] [address] [facility] Start: 08-22-2023 End: 08-22-2023 Patient encounter procedure 08/22/2023 11:50 AM EST Office Visit [facility] [address] [place] [address] Flynn Archibald, [address] [place], [place] [id number] [facility] Payers Date Payer Category Payer Unknown BCBS BCBS xxxxxx [id number] 2017-Present [phone] [address] [place] [address] [id number] 1995 Unknown [id number] 1995 Unknown [id number] 1995 Unknown [id number] [id number] 1993 Unknown [id number] [id number] 1993 Unknown [id number] 1993 Unknown [id number] 1993 Unknown [id number] [id number] 1993 Unknown [id number] 1961 Unknown [id number] Social History Date Type Detail Facility Tobacco smoking stat [facility] Tobacco smoking consumption unknown [facility] Start: 1995 Sex Assigned At Not on file [facility] Start: 08-08-2023 Gender identity Not on file [facility] Start: 08-08-2023 Tobacco smoking stat [facility] Never smoked tobacco [facility] Start: 08-08-2023 Tobacco use and exposure Smokeless t obacco non-user [facility] Start: 08-08-2023 History of Social function [facility] History of Present illness Narrative 08-08-2023 [...] year (follow up) documented in this encounter [facility] Consultation note 07-18-2021 Note Date & Type [...] to proceed. CC: Dr. Alon Weber [facility] Consultation note 07-18-2021 Note Date & [...] would like to proceed. CC: Dr. Alon Wbeer [facility] Signed and Approved by: DR AKASH MARTINEZ . 07/25/2021 08:02:00 [facility] Clinical Note 02-28-2021 Note Date & Type Note Facility 02-28-2021 Note Infectious Disease COVID-19: How to Protect Yourself and Others Know how it spreads ? There is currently no vaccine to prevent coronavirus disease 2019 (COVID-19). ? The best way to prevent illness is to avoid being exposed to this virus. ? The virus is thought to spread mainly from wvrnqi-aq-kizhkj. ? Between people who are in close [...] are not readily available, use a hand needle loom weaver that contains at least 60% alcohol. Cover [...] at higher risk of getting very sick.www.cdc.gov/coronavirus/2019-ncov/n pgg-rvown-uegonjakley/vwdmzr-rv-svemuj-r isk.html Cover your mouth and nose with [...] available, clean your hands with a hand needle loom weaver that contains at least 60% alcohol. Clean and disinfect ? Clean AND disinfect frequently touched surfaces daily. This includes tables, doorknobs, light switches, countertops, handles, desks, phones, keyboards, toilets, faucets, and sinks. www.cdc.gov/coronavirus/2019-ncov/preven l-ekyfqbk-czan/mqhidpbstdzy-omlu-btkz.ht ml ? If surfaces are dirty, clean [...] Reviewed: 12/31/2019 Elsevier Patient Education ? 2019 [employer] COVID-19 Frequently Asked Questions COVID-19 (coronavirus disease) is an infection that is caused by a large family of viruses. Some viruses cause illness in people and others cause illness in animals like camels, cats, and bats. In some cases, the viruses that cause illness in animals can spread to humans. Where did the coronavirus come from? In May 2019, [place] told the World Health Organization (WHO) of several cases of lung disease (human respiratory illness). These cases were linked to an open seafood and livestock market in the city of [facility]. The link to the seafood and [...] naming World Health Organization (WHO): www.who.int/emergencies/diseases/novel-c oronavirus-2019/technical-guidance/joe m-chh-uxkthraiqhz (more content not included)... [facility] History and physical note 05-05-2020 Note Date & Type Note Facility 05-05-2020 Note [id number] #1.00CD:127 [facility] History and physical note 05-02-2020 Note Date & Type Note Facility 05-02-2020 Note [id number] #1.00CD:127 [facility] Evaluation note Note Date & Type [...] section and content) DATE CREATED AUTHOR 03/05/2021 [facility] DATE CREATED AUTHOR AUTHOR'S ORGANIZ ATJACQUELINE 04/10/2021 [facility] DATE CREATED AUTHOR AUTHOR'S ORGANIZ ATION 07/02/2022 [facility] DATE CREATED AUTHOR AUTHOR'S ORGANIZ ATION 09/09/2023 [facility] Reason for Visit (unrecogniz ed section and [...] BE BASED ON THE PRIMARY CLINICAL RECORDS. [employer] provides no warranty or guarantee of the accuracy or completeness of information in this document.
[2023-10-11 07:15] LABS: Basophils Percent Auto 0.7 % (0.2-2.0); Eosinophils Absolute Auto 0.1 10^3/uL (0.0-0.7); Eosinophils Percent Auto 2.2 % (0.9-7.0); Hematocrit 44.2 % (36.0-48.0); Hemoglobin 14.6 g/dL (12.0-16.0); Lymphocytes Absolute Auto 2.4 10^3/uL (1.2-3.8); Mean Corpuscular Hemoglobin 31.1 pg (26.7-34.0); Mean Platelet Volume 10.8 fL (9.5-13.5); Monocytes Absolute Auto 0.4 10^3/uL (0.3-0.8); Monocytes Percent Auto 6.3 % (1.7-12.0); Neutrophils Absolute Auto 2.9 10^3/uL (1.4-6.5); Neutrophils Percent Auto 49.8 % (43.0-75.0); Platelet Count 273 10^3/uL (150-450); Red Cell Distribution Width 11.9 % (11.0-15.0); White Blood Count 5.9 10^3/uL (4.0-11.0)
[2023-10-11] MEDS: LACTATED RINGER'S SOLUTION 1,000 ML 50 ML IV (07:31)
[2023-10-11 07:35] LABS: HCG Quantitative <1 mIU/mL
--- NOTE | 2023-10-11 07:35 | PC.NURSE ---
PATIENT WAS EDUCATED ON THE IMPORTANCE OF JEWELERY REMOVAL AND RISKS INVOLVED. PATIENT WAS INFORMED THAT MARRUFO FROM EQUIPMENT USED CAN BE CAUSED WITH THE JEWELERY LEFT ON. PATIENT STATES SHE IS AWARE AND IT IS OK TO PROCEED WITH THE PROCEDURE.
--- NOTE | 2023-10-11 09:47 | PM.ONB ---
Brief Operative Note Date of procedure: 10/11/23 Pre-op diagnosis general: pelvic pain Post-op diagnosis: other (endometriosis posterior culdesac, adenomyotic appearing uterus) Procedure: NAME OF PROCEDURE: [diagnostic laparoscopy ] findings, endometriosis post culdesac, adenomyotic appearing uterus PROCEDURE: The patient was taken back to the Operating Room where she was placed in dorsal lithotomy position after given general anesthesia. The patient was prepped and draped in normal sterile fashion. A sponge stick was placed into the patient's vagina. Attention was turned to the patient's abdomen, where a small umbilical incision was made. The fascia was tented using Manas clamps and the fascia was entered sharply. Confirmation of intraabdominal placement of the 10 mm port was confirmed under direct visualization using a laparoscope. The patient's abdomen was then insufflated using CO2 gas with approximately 4 liters. A second port was placed left laterally, this was done under direct visualization with a 5 mm port. Survey of the patient's abdomen demonstrated normal liver and gallbladder. Survey of the patient's pelvic anatomy demonstrated normal appearing rt and lt ovary and tubes as well as adenomyotic appearing uterus. posterior culdesac endometrial implants could be noted, no evidence of any pelvic disease was seen, normal appearing pelvic cavity. All instruments were removed from the patient's abdomen. The patient's abdomen was deinsufflated of CO2 gas. The patient tolerated the procedure well. Sponge stick was removed from the patient's vagina. The patient's infraumbilical fascia was closed using #0 Vicryl on a GI needle. The patient's skin was closed laterally and infraumbilically using 4-0 Vicryl. The patient tolerated the procedure well. Sponge, lap and needle counts were correct x 2. The patient was taken to Recovery Room in stable condition. Anesthesia: GIBRAN Surgeon: Flynn Archibald Md Physician Dermatologist: Geno Yan Estimated blood loss (mL): 5 Pathology: none sent Condition: stable Disposition: PACU Urinary Catheter Management Urinary Catheter Management Urethral: Cath placed during this visit: no
[2023-10-11] MEDS: FENTANYL CITRATE/PF 100 MCG/2 ML VIAL 50 MCG IV (10:17)
== END 2023-10-11 12:15 | disposition home or self-care (01) ==
PROVIDERS: PCP Family Medicine; Visit Provider Obstetrics & Gynecology
PROC: (CPT 840; principal; 2023-10-11 08:15)
DX: R10.2 Pelvic and perineal pain (principal); N80.329 Endometriosis of the posterior cul-de-sac, unspecified depth; N80.03 Adenomyosis of the uterus; G47.00 Insomnia, unspecified; F43.10 Post-traumatic stress disorder, unspecified; F32.A Depression, unspecified; Z86.16 Personal history of COVID-19; F41.9 Anxiety disorder, unspecified; E05.90 Thyrotoxicosis, unspecified without thyrotoxic crisis or storm; Z90.49 Acquired absence of other specified parts of digestive tract
CPT/HCPCS: 49320; 36415; 84702; 85025; J1094; J2704

== ENCOUNTER 2023-11-25 13:44 | Outpatient (OUT) | payer BC, SELFPAY ==
--- NOTE | 2023-11-25 14:51 | P.CN_ITS ---
Consult Note: HPI Data of Consult Patient: new to practice Consult date: 11/25/23 Requesting Physician: Harley Maldonado MD Primary Care Provider: Sixto Gomez MD Consult Narrative Reason for consult: low back and right hip pain Narrative: 28yof who presents for evaluation. longstanding low back and right radiating hip pain that has not responded to conservative measures. has had chiropractic therapy monthly, home exercises, without benefit. uses otc meds as needed, but does not like to take medications. lumbar xr shows only mild degenerative changes. no advanced imaging available. cc:: CC: Harley Maldonado MD Review of Systems ROS Status of ROS 10 or more systems reviewed and unremark able except as noted in history and below PFSH PFS Medical History Insomnia ?G47.00 - Insomnia, unspecified (ICD-10) PTSD (post-traumatic stress disorder) ?F43.10 - Post-traumatic stress disorder, unspecified (ICD-10) Panic attacks ?F41.0 - Panic disorder [episodic paroxysmal anxiety] (ICD-10) Depression ?F32.A - Depression, unspecified (ICD-10) Anxiety ?F41.9 - Anxiety disorder, unspecified (ICD-10) COVID-19 ?U07.1 - COVID-19 (ICD-10) Migraine ?G43.909 - Migraine, unspecified, not intractable, without status migrainosus (ICD-10) Endometriosis ?N80.9 - Endometriosis, unspecified (ICD-10) Pelvic pain ?R10.2 - Pelvic and perineal pain (ICD-10) Heart murmur ?R01.1 - Cardiac murmur, unspecified (ICD-10) Hyperthyroidism ?E05.90 - Thyrotoxicosis, unspecified without thyrotoxic crisis or storm (ICD-10) Postoperative nausea and vomiting ?R11.2 - Nausea with vomiting, unspecified (ICD-10) ?Z98.890 - Other specified postprocedural states (ICD-10) Surgical History History of cholecystectomy ?Z90.49 - Acquired absence of other specified parts of digestive tract (ICD- 10) History of laparoscopy ?Z98.890 - Other specified postprocedural states (ICD-10) History of section ?Z98.891 - History of uterine scar from previous surgery (ICD-10) History of ankle surgery ?Z98.890 - Other specified postprocedural states (ICD-10) History of ankle surgery ?Z98.890 - Other specified postprocedural states (ICD-10) History of ankle surgery ?Z98.890 - Other specified postprocedural states (ICD-10) Family History Other Family history of breast cancer Family history of hypertension Family history of leukemia Family history of lung cancer Social History Within the past year, how often did you have a drink containing alcohol: monthly or less Smoking status: Never smoker Non-prescribed substance use: denies use 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 Highest level of school completed/degree received: high school graduate Meds Home Medications and Allergies Home Medications ?Medication ?Instructions ?Recorded ?Confirmed ?Type drospirenone 3 mg-ethinyl 1 tab PO DAILY 07/01/23 10/11/23 History estradiol 0.03 mg tablet hydroxyzine pamoate 50 mg capsule 50 mg PO Q6H PRN nausea and 07/01/23 10/11/23 History vomiting venlafaxine 150 mg 150 mg PO DAILY 07/01/23 10/11/23 History capsule,extended release 24 hr valacyclovir 500 mg tablet 500 mg PO Q12H PRN skin breakout 10/02/23 10/11/23 History ibuprofen 800 mg tablet 800 mg PO Q8H PRN pain 14 days #40 10/11/23 Rx tabs prazosin 1 mg capsule 1 mg PO QPM 11/25/23 11/25/23 History Allergies Allergy/AdvReac Type Severity Reaction Status Date / Time Penicillins Allergy Hives Verified 10/02/23 12:41 Sulfa (Sulfonamide Allergy Verified 10/08/23 11:30 Antibiotics) hydrocodone AdvReac Intermediate Hives Verified 10/02/23 12:41 oxycodone AdvReac Intermediate Hives Verified 10/02/23 12:41 Exam Narrative Exam Narrative: Psych-alert and oriented x 3. Attentive and appropriate, constitutionally nor mal, displays normal mood and affect per situation. There are no obvious deficits in memory, reasoning, or intellect.? Skin-no obvious rashes, bruising, erythema noted to the patient's area of pain.? Extremities- extremities are warm with minimal edema and palpable pulses. Lumbar-tenderness to palpation noted in the lumbar spine and paraspinal musculature. Pain is not elicited with flexion, extension, and lateral rotation of the lumbar spine. Range of motion is not diminished with these motions. Facet loading maneuvers are negative.? Strength-noted to be unremarkable Sensory-no notable sensory deficits in the bilateral lower extremities to touch or pinprick in all dermatomal distributions with the exception to decreased sensation to the right L2, 3 dermatomal distribution Coordination remains intact.? Gait remains non-antalgic. Assessment and Plan Assessment and Plan (1) Lumbar radiculopathy: (2) Abdominal pain, right lower quadrant: Plan 28yof who presents for evaluation. failed conservative measures, as noted. imaging reviewed, as noted. given longstanding history of symptoms and failure to respond to conservative measures, would like her to undergo lumbar mri without contrast for further information. she is in agreement. may ultimately benefit from tfesi vs. tap block. meds reviewed, no changes. follow up after imaging.
== END 2023-11-25 13:45 | disposition home or self-care (01) ==
LOC: PM 13:45
PROVIDERS: PCP Family Medicine; Visit Provider Anesthesiology
DX: M54.16 Radiculopathy, lumbar region (principal); R10.31 Right lower quadrant pain
CPT/HCPCS: G0463

== ENCOUNTER 2023-12-10 13:54 | Outpatient (OUT) | payer BC, SELFPAY ==
--- NOTE | 2023-12-10 | MR_ITS ---
[facility] [id number] Patient Name: RAJIV LANDAVERDE MRN: [id number] date: 1995 Sex: F Assigned Patient Location: MRI Current Patient Location: Accession/Order Number: [id number] Exam Date: 12/10/2023 14:10 Report Date: 12/11/2023 13:52 At the request of: FIDENCIO TY Procedure: MR lumbar spine wo con EXAMINATION: MR lumbar spine wo con HISTORY: Lumbar radiculopathy ; chronic low back pain, right leg pain COMPARISON: No relevant comparison available. TECHNIQUE: A variety of imaging planes and parameters were utilized for visualization of suspected pathology. FINDINGS: For the purposes of numbering, sagittal T2 image # 8 extends from the T11 vertebral body superiorly to the S3 level inferiorly. PARASPINAL AREA: Normal with no visible mass. BONES: No fracture, pars defect, or osseous lesion. CORD/CAUDA EQUINA: Normal caliber, contour, and signal intensity. DISC LEVELS: 12-L1: No significant disc/facet abnormality, spinal stenosis, or foraminal stenosis. L1-L2: No significant disc/facet abnormality, spinal stenosis, or foraminal stenosis. L2-L3: No significant disc/facet abnormality, spinal stenosis, or foraminal stenosis. L3-L4: No significant disc/facet abnormality, spinal stenosis, or foraminal stenosis. L4-L5: No significant disc/facet abnormality, spinal stenosis, or foraminal stenosis. L5-S1: No significant disc/facet abnormality, spinal stenosis, or foraminal stenosis. MR/MR lumbar spine wo con IMPRESSION: 1. No abnormal or suspicious findings to account for patient's symptoms. 2. No appreciable degenerative changes. Electronically authenticated by: BEN MARIE Date: 12/11/2023 13:52
--- OUTSIDE RECORDS SUMMARY | 2023-12-10 14:39 | XMS_ITS | CCD ---
Author Organization [facility] CliniSynh Care Team Providers Care String Studies Director Name Role Phone MICHELLE, DR AKASH Murray Admitting Unavailable MICHELLE, [...] Unavailable MICHELLE, DR AKASH Murray Consulting Unavailable ROWELL, MARILIN Consulting Unavailable MICHELLE, DR AKASH Murray Admitting Unavailable MICHELLE, DR AKASH Murray Attending Unavailable GUS, DR CHI Primary Care Unavailable MICHELLE, DR AKASH Murray Consulting Unavailable Unavailable Primary Care Provider UnavailMY Lee Attending Unavailable FLYNN ARCHIBALD Attending Unavailable FLYNN ARCHIBALD Attending Unavailable LEWIS SEWELL Attending Unavailable Erica POLK, Harley Simmons Attending Unavailable Allergies Allergy Classification Reported Allergen(s) Allergy Type Date of Onset Reaction(s) Facility (2 sources) HYDROcodone Drug Allergy 5 [facility] Repository (2 sources) oxyCODONE Drug Allergy 5 [facility] Repository (2 sources) Penicillins Drug allergy (disorder) 5 [facility] Repository (3 sources) Acetaminophen / HYDROcodone Drug Allergy 4 Unknown [facility] (3 sources) HYDROcodone Drug Allergy 4 Hives [facility] Work Phone: (3 sources) oxyCODONE Drug Allergy 4 Hives [facility] (3 sources) Penicillin G Drug Allergy 4 [facility] (3 sources) Penicillin G sodium Allergy to substance 4 Rash [facility] Healthcare (3 sources) Penicillins Drug Allergy 4 Hives [facility] Healthcare (3 sources) Sulfamethoxazole / Trimethoprim Drug Allergy 4 Rash [facility] Healthcare (3 sources) Sulfonamides (Antibiotic) Drug Allergy 4 [facility] Healthcare Medications Current Medications Medication Drug Class(es) [...] 07-18-2021 Episodic Other aftercare (1 source) Other shelter (current) drug therapy; Translations: [OTH HALFWAY CURRENT DRUG THERAPY] Onset: 09-05-2021 Episodic Other upper respiratory infections (1 source) Acute upper respiratory infection, unspecified; Translations: [ACUTE UP RESPIRATORY INFECTION UNS] Onset: 09-05-2021 Episodic Unclassified (1 source) COUGH, UNSPECIFIED; Translations: [COUGH, UNSPECIFIED] Onset: 09-03-2021 Results Test Name Value Interpretation Reference Range Facility Covid-19 PCR ([facility])on 08-22 SARS-CoV-2 (COVID-19) RNA MARY+probe Ql (Unsp spec) Not detected Normal NOT DETECTED [facility] Comment on above: Result Comment: This test is not yet approved or cleared by the [place] FDA. When there are no FDA-approved or cleared tests available, and other criteria are met, FDA can make tests available under an emergency access mechanism called an Emergency Use Authorization (EUA). The EUA for this test is supported by the Registered Representative of Health and Human Service's (HHS's) declaration [...] consistent with SARS-CoV-2. Performed By: #### C [facility] #### [facility] [address] [place] [address] Dr. Karlos Augustin GROUP A STREP CULTUREon 08-22 S. pyogenes Ag Ql (Unsp spec) Culture Observations: NEGATIVE FOR GROUP A STREPTOCOCCUS. Normal [facility] Comment on above: Performed By: #### S ДМИТРИЙ GRASTCX #### [facility] [address] [place] [address] Dr. Karlos Augustin INFLUENZA A AND B AGon 09-03 INFLUANEGH SEE BELOW Normal [facility] Comment on above: Result Comment: Nega tive for Flu A protein angiten. Infection due to Flu A cannot be ruled out. Flu A angiten in the sample may be below the detection limit of the test. Performed By: #### I NFLUAB #### [facility] [address] [place] [address] Dr. Karlos Augustin INFLUBNEGH SEE BELOW Normal [facility] Comment on above: Result Comment: Nega tive for Flu B protein antigen. Infection due to Flu B cannot be ruled out. Flu B antigen in the sample may be below the detection limit of the test. Performed By: #### I NFLUAB #### [facility] [address] [place] [address] Dr. Karlos Augustin INFLUENZA A AG Negative Normal NEGATIVE SEE COMMENT [facility] Comment on above: Performed By: #### I NFLUAB #### [facility] [address] [place] [address] Dr. Karlos Augustin INFLUENZA B AG Negative Normal NEGATIVE SEE COMMENT [facility] Comment on above: Performed By: #### I NFLUAB #### [facility] [address] [place] [address] Dr. Karlos Augustin INTERNAL CONTROLS Within Normal Limits Normal Wi thin Normal Limits [facility] Comment on above: Performed By: #### I NFLUAB #### [facility] [address] [place] [address] Dr. Karlos Augustin STREPT SCREENon 09-03-2021 STREP SCREEN A Negative Normal NEGATIVE [facility] Comment on above: Performed By: #### S ДМИТРИЙ GRASTCX #### [facility] [address] [place] [address] Dr. Karlos Augustin PREG HCG QUALon 08-01-2021 , QUAL Negative Normal NEGATIVE [facility] Comment on above: Performed By: #### P REG #### [facility] [address] [address] [address] Karlos Augustin PREG HCG QUALon 07-04-2021 , QUAL Negative Normal NEGATIVE [facility] Comment on above: Performed By: #### P REG #### [facility] [address] [facility]BDOMEN AND PELVIS W IV CONTRAST [facility] Department of Radiology [address] [place] [address] Patient Name: RAJIV TOVAR : 1995 Sex: F Age: Race: White Pt. Location: [facility] Patient Status: D Ordered Date: 03/21/2021 4:00:00 PM Completed Date: 04/05/2021 03:49 PM Requesting Provider: ДМИТРИЙ CALLAHAN Attending Provider: ДМИТРИЙ CALLAHAN Report Copy To: ALON WEBER Signs & Symptoms: R10.31 Right lower quadrant pain I10 History: Josefa Is patient on meds for HTN or DM? 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 Per [employer] [place] CPT 48171 Ref#[id number] Med Nec-Passed *SLA Comments: Exam: CT ABDOMEN [...] Electronically signed: Noemy Stanley M.D.. Transcribed by: [email or web address], User Resident: Electronically Signed by: NOEMY TSANLEY @ 04/07/2021 01:25 PM Normal [facility] CHEST 2 [facility] 03-21-2021 [facility] CHEST 2 [facility] Department of Radiology [address] [place] [id number] Patient Name: RAJIV TOVAR : 1995 Sex: F Age: Race: White Pt. Location: [facility] Patient Status: D Ordered Date: 03/21/2021 2:25:00 PM Completed Date: 03/21/2021 02:22 PM Requesting Provider: ДМИТРИЙ CALLAHAN Attending Provider: Report Copy To: Signs & Symptoms: R07.81 Pleurodynia I10 History: Josefa Comments: right ribs pain Exam: [facility] CHEST 2 [facility] CHEST 2 VWS 03/21/2021 2:22 PM CLINICAL [...] disease Electronically signed: Cyril Olivo. Transcribed by: [email or web address], User Resident: Electronically Signed by: CYRIL LOIVO @ 03/22/2021 02:39 PM Normal [facility] Comment on above: Order Comment: right ribs pain Coding Summary.on 03-03-2021 Coding Summary. CD:[id number] h0bWw+PGhlYWQ+KM7ZARU wL15ulZIbnZ9YH1iIIF1D ELEWZFLLYC0XOF2ylWM7M XnjY5XmkiYu ZhubcCNgXL31NKq2TAP4q EwcPWwogZ9qkSHlC9b8Ly InPF70iP30DKclOHYcZuB 3LjZpbjsgbWFy I3exVlCcfUQqPii+PHRhY mxlIHdpZHRoPScxMDAlJy NlaTnwDN9qGw3cYKHuLAR vbGxhcHNlOiBj y5ueFQTgDVapXD8ukShhA 8LeeTP7ZVDrv3k9Zg26aU I+DGMfDXD4rAhsPWufy51 2LjGvr4lpGJV0 pMDxUUbbLQK4V69ba5X3Y FImVRTyDPG8uIS8mU9qeW hzgxyqA7PihEFfImG2QNK 3oAFusZ7unRty mimscG4wLhx+S69OEF1AN XPECB1MTmk0N1PeBjhrbS I+FE22TYIuED45gTWlrDR ub1baoRo6VjAf VRGwUSX7cEguCOuqe8LcN MVqA05lvPYnq2V8FIDcaE relMToXnMxpOK8dB5pGPy uiktrp4acgwri Dusxg7lyzh45pB43K98aF YwpLZIrVIO8XORvITHngK fhlj2lyV6wVo2+NWeag9x vp7kcmPe7JnNx FZJqfkIgwBwtTOP5b9IkH g24P1WijQsgb8BdSpz6bq 07bRYlu2X4fJL0QRqfZCN ifP6oHTxuKqH0 NQIcCgLyqW28eYGcAKleZ t7eyYaaxJwuJQ1dPVNiob ynGDWnkP4mYUFihRBqsVl cSZ5vAURcevuv o624SlDcRYN3QGVmbHIgH 2YjkY1qLbNyYPRiSAEgH7 IpyWLzFXpvZ642KUadFvH 8WLWlndUbC3Dw EGSedEpcAsJ1q7Z2Eu1Ks 6MiusxiRQN9HYwtTKY9Yk BqJwZhPfT7Y5IeLus6PUF ybSyjAK7mL3Da EGTogbnqjupsrAT4QDBdH QQonJ00zKBkPRwfDk5rn0 Y2e458WHWxTYMlgO15Yc6 udDogMTBwdCBU lX0mmlaft9peedyfZzFjX DMqUYr0YDm6XKJysWgdFb OwVUX7UbT9GIC0rNDufK9 dhWubmoplvE0k Oyc+S48fhO3jVFT1EUO9a ttcEGPxqiFmLU28ND44D0 RyPjwvdGFibGU+PGRpdiB lsVpdDD8hCgMn t8jmq5KmIToqT1BgYNXdK NwrCya1IQHbZFP7wBS7qJ 0pMJAxMDkht2L9xAB6U0Z wtpOqac3gb2fq HHJlPBwrB51xfZSkw0I3Q GThmGF1LZFrbNbfUnNenT 93Oyc+WKZtbYnrq5EfOvv oa0fol8ilyIx3 NxFmACZsfbDdpOvxQMP0o 6ZgNp69P47dLIztRQZyGO OoWVPaEQZhtZlxue4mmS1 wIi8+PGNvbCB3 dGQ8mA4eOWLgNnJ8DPnzC 282VoDmqHAsYyamy8dvr6 yhiVk7ClPpKTJejpTsqLw gZSM7r3ZpEs96 R06yCOonFIHlSFZpXCAwM KWnjLofdn4zbA6cAz0+PC 3pu2qofq34fL75tVF+PHR dEOT9vKgzESpe SGKlyK0bTRefIkU8XOXyZ xVvkG83rUVzBDvbJd8yfC puoPadMH2jARDtagika11 5AtTbw2wdMDXh tBYfDNujRPH2I39ao1C1D ADxCUPdHUT0yLH0yL9sgF lnbjogbGVmdDsgdmVydGl qZBaxTWnwZ826 IHRvcDsnPlBhdGllbnQgT hIkTEe2K1FdGci1QHYwdR hfWL9yzSPyHGbaHs1faGb zpFseMK2pHZBu jozvc315XdTok3qcFVYrb YIsADejQRT3M66bd1Y7VP VfDACgDXX7mJF8nU5uuBe nbjogbGVmdDsg tnNpoZnqAJqaYAdtJ476J HRvcDsnPkJpcnRoIERhdG A8EC36WZ79rMIks1N5cMM 0F3CaWBPbtfid qszpzFV9FNMtGUYetG35J r1rpNbiBr2eHSVcUCH4BI ZinSQrI9IilV6kFgLnBNX yYGRoL1BrtRQm RHkuM852BMyvFvV8CWQhv lFbF7PlPMDdsJppPoM5l5 R6Sf9MU7H2IC83UL40sRS vf0Y7gQI7T5Wj TOIzjrxtebqqhLH2RXZfP AUcfA54Xr8shBohZu4cIJ KgION7VYNboEEkZ1VnfR8 yOiAjMDAwMDAw W1QujVCvDVjaV723YTwdD gF3FEMyicXlK1BqEJNdpR gmOyU2m4K6Du3RVSa4XG0 7FO28uRXai0F0 rJU3K5PeMONobeuistolg OK7SDUbFTMgdR34Ws1sxA apHe2nRWUdCKW5PUFxiSY eG6JcyR2zRhAt AXCdWKBvA3KepCPwYIzqZ 280OSaeTvM9NOWxnnEkX8 YoMRSioPloScA2h0D0Tx6 ILPWdMX63FXC2 eDS9MP66LY15A2FxZzfuu GFibGU+PHRhYmxlIHdpZH RoPScxMDAlJyBzdHlsZT0 uNn4dVXRfZQQe tHoxnXKzTlZsd3wmCBYlO UtnEY1voXiuA3CppFV5PN Yfs0u6Nn63V62nQ5OjtUT +GWAacVC3dOG7 aC7gGeCbWvC1ZVccU793C wQjvUKjQveyr7pwn9alrR l8ApS4HTTdyaGszObvGQR 9p0BcDc68Q02o IHdpZHRoPSIxNSUiIHZhb Xzcay7omG6wKh5+PGNvbC S2rGH7vG5iHpVuAlU7AUs zZ728PcFqbOCq Lyioj1nvn8aeaMp4IcQdH OTypcOrzAslNTA9t1XqLq 30U6HvnIlcj9NgLtn1ig1 4tEAha8U5hFF7 U9GrFYQdbpaqkIIhgFxtJ V6eUPPcpcweTZBwuW1pPT SvS5u1CvPeUeL7OUmuZ7K pyaL2DCAudUCo AEizQWD6Y54cc9G0RECcZ IMrHDU6mGN4vY8yeGqdng ogbGVmdDsgdmVydGljYWw yUIkzX215JYJv xAqyIZUkxH3yFSBmwRFxf MxgIH0iLWDfusqbDvDTUQ BJBELROQcEA5G7G2ReQil 6JMApwRpdZV0o qIVwCRshEj3xxTzplUhuH Q6sOZMcbshrAFGxiK6kVN WsfMPviRxyNC6tLZKcllq wo017MnInAVC2 CIUhuXZqW6CecD3aApTgW WVxMSCeJ4BukKUzWDirL7 88HKfwZbW3RMZrmaRhD4C sLWFsaWduOiB0 q2H1Pj2gTC1fUm7yXXspA B71YN97xDFnq4M6fVQ1N3 TxYXRrhfxmobozhBI4PCB uFZQjxJ23xMCq OBwnNe4nh6S5f303VMYmW VQhfT71Gp8uvMlxADKtcQ PGcX9srttuy4lvqijbEeT bZYXzVEe2PIt7 QYNnuKhbXrQxALI8FlB2V EW2gHJqeO2bsGfwunumbP 9wOyc+XuxlFCPqgdN0Q3N yWfr5JBIwhAud VX2tqHHuANhmMd8xmNxzc QhmUB0kEVWvziwdSWSueI 9rKTKzzZUomQloDL7hVDH ahfldd885McFz VEH1JKTfoRViD1TsaB5zC dDjRPIvPGMkF1JmlRHwBC qaJ884KMkmXwJ3LGWssdJ oH7EzHWAnbBdh RvW3x5U0Bj2YII8vnPF5M 2XpMgq0NJHwxEjaIW7exM RzECozBq8vfMchvOekQR5 wNTBpbjtwYWRk mW0pFQHtrMJhsMetEB3tS RPeuuodt509YtKkSAE8GY VwaNLpX3IbzO8mQhPhBCU zDRDeX3ZzaWYo MDenA886LLtyDnA2BYRqe sZnC6InTEOijKcaDpO5j6 L0Cu9MsTFhB9AfO2b3N7D kPjwvdHI+PC90 GDZiMC40bCJwnNPqh2zav Ub6RoZnUCWhLIZ4rYreUH elg7IyUHJkB08zgMXfk8K 6IGNvbGxhcHNl DiAheAK7uK7vRPcvezogu 7wpvvpdScago6cars71uB 30G40tTZiuABZqTUVmKAD uAKUqdGzwjb1k vB7nAa9+VTGnpJK3cYC0q D2rClSmPrL3NAcjR120Hz OnxWZqWylvy9kxh9xpxEf 9IjIwJSIgdmFs zKqdOLC3g7QpKt05F74nS HdpZHRoPSIyMCUiIHZhbG mado5kgI6rXy3+XZ6lp2v zmb73lF27eAR+ AZNkXJY3sEvqSQosMXKxp Z4eARslYfN9LVKiXrPdnR 53cRLjYNyvGh4fzTywrRh fSY6mFWPsipqc j859DuKgf2zpSABmyXNzQ IbnHAM1I97vu6D7RVKmNQ TqRKV0fDO8aP5onPfjunk gbGVmdDsgdmVy zQmrMXlrMBddN528DHDlc AhnHhRsoLYjH5nbabNRWV 1lOjwvdGQ+KZJbIBX0sFs jDWcjSJZalN6h XCZhO7j2KlNoTrY5BWneY 4BdxwA9WMXxmTVzKFHtvG OHnN4jnfkqb5htgacfBmZ sLVXvQLs7RUm4 OWVlmZbsWsOmTWI3TnD6H HL3fVYlkD1vbYtrzmlmyG 9wOyc+RklOOjwvdGQ+PHR oSUI9hKxiLGwp HMPitD4eTPAdQ8c1JpMvL xN5SEvxU4UljxH1BMHhkB XrHNGauSUVuE5dqmiop7f vcjogIzAwMDAw BIe2UEw9CSIhzPtlRxYuV VO9VcJ8CLH3nWNggR8xtX gxyjcloT7xXum+TVJOOjw vdGQ+PHRkIHN0 qAewGRmsDRJnwS0cQUMiI 4m2OrBwBsS6DGyjX8Nrjk V8BTRdxOMkDUSukPZXzS9 mwsqxw9yocorn MfUkUPBqIWr3HAi1OJAtw PhzKwMgLHG9IpW3OWE6oD PdcV0bvTexqckglG3kSlw +PIR7EEJ0FP53 DA35R6JuNctzjJLvnOF+P HRhYmxlIHdpZHRoPScxMD JzSmTupQtsWE7dYs3zSZA yLWNvbGxhcHNl OiBj (more content not included)... Normal [facility] Auto Diffon 02-28-2021 Basophils/100 WBC (Bld) 0.4 % Normal 0.0-2.0 [facility] Comment on above: Order Comment: Order Added by Discern Expert. Performed By: #### 2 698102, 8382116, 24293426, 61238222, 48092482, 92022929, 0516942, 4403304, 1457961, 3168323 [address] [place] [address] Basophils/Leukocytes Auto (Bld) [Pure # fraction] 0.0 E9/L Normal 0.0-0.2 [facility] Comment on above: Order Comment: Order Added by Discern Expert. Performed By: #### 2 538536, 0543994, 59545409, 41564768, 08872701, 47210942, 5847607, 8810497, 8297022, 0887610 ####[address] [place] [address] Eosinophils/100 WBC (Bld) 0.6 % Normal 0.0-8.0 [facility] Comment on above: Order Comment: Order Added by Discern Expert. Performed By: #### 2 968771, 8032555, 29024253, 26203806, 03839379, 57856928, 5439078, 3865663, 2728740, 4498217 ####[address] [address] Eosinophils/Leukocyt es Auto (Bld) [Pure # fraction] 0.0 E9/L Normal 0.0-0.5 [facility] Comment on above: Order Comment: Order Added by Discern Expert. Performed By: #### 2 374526, 4682438, 88631231, 21811893, 18179071, 71841881, 2515845, 1218443, 3139279, 1410518 ####[address] [place] [address] Lymphocytes/100 WBC (Bld) 7.9 % Low 14.0-50.0 [facility] Comment on above: Order Comment: Order Added by Discern Expert. Performed By: #### 2 804336, 1843151, 97040022, 91760350, 88462126, 18060501, 0088957, 0463555, 7833057, 5719906 ####[address] [place] [address] Lymphocytes/Leukocyt es Auto (Bld) [Pure # fraction] 0.4 E9/L Low 1.0-4.0 [facility] Comment on above: Order Comment: Order Added by Discern Expert. Performed By: #### 2 131721, 5730765, 00999872, 06192789, 00856393, 47569686, 9219874, 6739428, 3883021, 7582681 ####[address] [place] [address] Monocytes/100 WBC (Bld) 5.5 % Normal 4.0-14.0 [facility] Comment on above: Order Comment: Order Added by Discern Expert. Performed By: #### 2 835231, 5053533, 88251252, 96915227, 98915988, 51145371, 0367175, 2627066, 1157822, 0882907 ####[address] [address] Monocytes/Leukocytes Auto (Bld) [Pure # fraction] 0.3 E9/L Normal 0.2-1.0 [facility] Comment on above: Order Comment: Order Added by Discern Expert. Performed By: #### 2 721946, 6467020, 47968309, 30992615, 49722386, 37626841, 8535831, 6918196, 4443101, 9397693 ####[address] [address] Neutrophils/100 WBC (Bld) 85.6 % High 36.0-75.0 [facility] Comment on above: Order Comment: Order Added by Discern Expert. Performed By: #### 2 359239, 7818286, 46184209, 29918260, 55862396, 61946653, 2251310, 5364960, 9057830, 8987918 ####[address] [place] [address] Neutrophils/Leukocyt es Auto (Bld) [Pure # fraction] 4.5 E9/L Normal 2.0-7.5 [facility] Comment on above: Order Comment: Order Added by Discern Expert. Performed By: #### 2 117035, 4405046, 39946187, 84137920, 20069879, 09301112, 0289688, 6195419, 0234925, 8888937 ####[facility] [address] [place] [address] B hCG Qualon 02-28-2021 Beta hCG Ql Negative Normal [facility] Comment on above: Performed By: #### 2 979431, 0136940, 77446050, 92610189, 11301898, 21637288, 6244630, 9717933, 8740798, 5759471 ####[facility] [address] [place] [address] BMPon 02-28-2021 Creatinine [Mass/Vol] 0.7 mg/dL Normal 0.5-1.3 [facility] Comment on above: Performed By: #### 2 245362, 1695669, 19586456, 80059114, 90095361, 51406998, 5007136, 0290906, 7856066, 4768365 ####[facility] [address] [place] [address] Urea nitrogen [Mass/Vol] 9 mg/dL Normal 5-21 [facility] Comment on above: Performed By: #### 2 639374, 5045072, 43500758, 20749497, 79113312, 91554252, 8309203, 9193811, 2340460, 9433760 ####[facility] [address] [place] [address] Urea nitrogen/Creatinine [Mass ratio] 13 No Units Normal 10-20 [facility] Comment on above: Performed By: #### 2 337104, 4063661, 00306451, 96599467, 32993456, 27817324, 0231119, 6959161, 0127423, 3304432 ####[facility] [address] [place] [address] Anion gap [Moles/Vol] 14 mmol/L Normal 6-16 [facility] Comment on above: Performed By: #### 2 607840, 2888122, 06348171, 28705065, 91009373, 46817305, 8485512, 7415086, 6697787, 2840778 ####[facility] [address] [place] [address] Calcium [Mass/Vol] 8.5 mg/dL Low 8.9-11.1 [facility] Comment on above: Performed By: #### 2 729136, 5081774, 91571057, 78500437, 56003652, 79133001, 2165012, 7559194, 7969023, 4670647 ####[facility] [address] [place] [address] Chloride [Moles/Vol] 102 mmol/L Normal 101-111 [facility] Comment on above: Performed By: #### 2 352772, 5255646, 84672849, 22255585, 35085006, 72249802, 7766741, 8085927, 5549320, 8858479 ####[facility] [address] [place] [address] CO2 [Moles/Vol] 21 mmol/L Normal 21-31 [facility] Comment on above: Performed By: #### 2 795838, 4762113, 14523764, 79871750, 89229779, 43655562, 2909331, 1156679, 8431133, 0301795 ####[facility] [address] [place] [address] Glucose [Mass/Vol] 95 mg/dL Normal 55-199 [facility] Comment on above: Result Comment: If t his glucose result represents a fasting glucose, interpretation should refer to the following reference range: 55-99 mg/dL Performed By: #### 2 229812, 5801676, 28929822, 19152503, 80351615, 57883091, 4023921, 9929101, 1537303, 8606530 ####[facility] [address] [place] [address] Potassium [Moles/Vol] 3.6 mmol/L Normal 3.5-5.3 [facility] Comment on above: Performed By: #### 2 692647, 2338043, 52785275, 65867583, 85918769, 24617034, 7702126, 8595408, 5603606, 9946698 ####[facility] [address] [place] [address] Sodium [Moles/Vol] 133 mmol/L Low 135-145 [facility] Comment on above: Performed By: #### 2 694690, 6204352, 77301414, 81349363, 90967460, 84494833, 6178981, 2166781, 6417917, 4782282 ####[facility] [address] [place] [address] CBC w/ Auto Diffon 1 Erythrocyte distribution width (RBC) [Ratio] 12.4 % Normal 10.9-14.2 [facility] Comment on above: Performed By: #### 2 450381, 7188123, 99535233, 09707967, 99471113, 87479527, 8038467, 6123033, 2489998, 1212089 ####[address] [place] [address] Hematocrit (Bld) [Volume fraction] 38.1 % Normal 34.0-46.0 [facility] Comment on above: Performed By: #### 2 374304, 9436713, 27359485, 60123741, 83300827, 33708821, 3640966, 1836492, 1595410, 2802076 ####[facility] [address] [place] [address] Hemoglobin (Bld) [Mass/Vol] 13.3 g/dL Normal 12.0-16.0 [facility] Comment on above: Performed By: #### 2 642569, 8036328, 68429738, 04118611, 50377353, 45143972, 5813686, 6928405, 8266748, 3607762 ####[address] [place] [address] MCH (RBC) [Entitic mass] 31.7 pg Normal 27.0-34.0 [facility] Comment on above: Performed By: #### 2 623346, 3156435, 15895425, 18235039, 56368278, 86513540, 1584028, 1446231, 5876686, 4017061 ####[facility] [address] [place] [address] MCHC (RBC) [Mass/Vol] 35.0 g/dL Normal 31.4-36.0 [facility] Comment on above: Performed By: #### 2 498607, 4772432, 47188242, 02611187, 02547638, 01732474, 9130306, 5555004, 9778825, 4004214 ####[address] [place] [address] MCV (RBC) [Entitic vol] 90.8 fL Normal 80.0-100.0 [facility] Comment on above: Performed By: #### 2 025321, 3612061, 25677760, 91680281, 70660954, 21230791, 7724513, 6534045, 2601720, 4737296 ####[address] [address] Platelet mean volume (Bld) [Entitic vol] 10.0 fL Normal 6.4-10.8 [facility] Comment on above: Performed By: #### 2 837137, 2183436, 29124056, 43908620, 49145313, 57352028, 8701676, 1773867, 9291040, 9296820 ####[facility] [address] [place] [address] Platelets (Bld) [#/Vol] 144.0 E9/L Low 150.0-500.0 [facility] Comment on above: Performed By: #### 2 374395, 2236980, 63269198, 86381728, 71610892, 48745610, 3411296, 1073769, 3045143, 4281673 ####[facility] [address] [place] [address] RBC (Bld) [#/Vol] 4.2 E12/L Low 4.3-5.9 [facility] Comment on above: Performed By: #### 2 375956, 8238335, 62395933, 83059356, 09972906, 26729616, 2124937, 5438936, 4643159, 5471513 ####[facility] [address] [place] [address] WBC corrected for nucl RBC Auto (Bld) [#/Vol] 5.3 E9/L Normal 4.0-11.0 [facility] Comment on above: Performed By: #### 2 971846, 7509257, 03491310, 06861358, 61309130, 97579344, 3932969, 6766047, 8122709, 6673081 ####[address] [place] [address] COVID-19 (MC)on 02-28-2021 SARS-CoV-2 (COVID-19) RNA MARY+probe Ql (Unsp spec) Not detected Normal Not Detected [facility] Comment on above: Result Comment: This test result should be correlated with clinical presentations and medical history by a healthcare provider to determine its clinical significance. This assay was performed by a reverse transcriptase real-time polymerase chain reaction (rt PCR) method on the Qivivo system. This test has been authorized only [...] or revoked sooner. Performed By: #### 2 [id number] #### [facility] [id number] SARS-CoV-2 (COVID-19) RNA MARY+probe Ql (Unsp spec) Pass Normal Pass [facility] Comment on above: Performed By: #### 2 [id number] #### [facility] [address] [place] [address] Specimen source Nom (Unsp spec) Nasal Normal [facility] Comment on above: Performed By: #### 2 [id number] #### [facility] [address] [place] [address] Employed in Healthcare NO Normal [facility] Comment on above: Performed By: #### 2 [id number] #### [facility] [address] [place] [address] First Test Unknown Normal [facility] Comment on above: Performed By: #### 2 [id number] #### [facility] [address] [place] [address] Hospitalized? NO Normal [facility] Comment on above: Performed By: #### 2 [id number] #### [facility] [address] [place] [address] ICU NO [facility] Comment on above: Performed By: #### 2 [id number] #### [facility] [address] [place] [address] ? NO Normal [facility] Comment on above: Performed By: #### 2 [id number] #### [facility] [address] [place] [address] Resides in a Congregate Care Setting NO [facility] Comment on above: Performed By: #### 2 [id number] #### [facility] [address] [place] [address] Symptomatic as defined by CDC YES [facility] Comment on above: Performed By: #### 2 [id number] #### [facility] [facility] [address] [id number] Consent for Treatmenton 090 Consent for Treatment [id number]#1 .00CD:127 Normal [facility] D-Dimeron 02-28-2021 Fibrin D-dimer FEU (PPP) [Mass/Vol] 388 [id number] Normal 215-500 [facility] Comment on above: Result Comment: This [...] infections Liver cirrhosis Performed By: #### 2 503181, 2352832, 89585586, 97912034, 59003958, 24477425, 1782744, 1615854, 9684677, 1430093 ####[facility] [address] [place] [address] Discharge Instructionson Discharge Instructions [id number]# 1.00CD:127 Normal [facility] ED Clinical Summaryon 2020 ED Clinical Summary [place] [id number] ED Clinical Summary Person Information Name: RAJIV TOVAR/[facility] Age: 25 Years : 1995 Sex: Female Language: Indonesian PCP: Alon Weber MD Marital Status: Single [...] 02/28/2021 11:17:01 02/28/2021 11:17:01 02/28/2021 11:17:01 ADDRESS: [address] [place] [id number] PHYS DOC NOTES: MEDICAL INFORMATION: Prescriptions Given: [...] Follow up: With: Address: When: Alon Weber [facility] [facility], [place] [address] Business (1) In 3 days DIAGNOSIS: Chest pain; Viral URI Normal [facility] ED Note-Physicianon 02-29-20 ED Note-Physician Basic Information Time Seen: Laureano [...] hCG Qual CBC w/ Auto Diff COVID-19 ([facility]) D-Dimer ECG 12 [...] Information Alon Weber In 3 days [address] [facility] [address] [place] [id number] Business (1) Additional Instructions: Patient Education COVID-19: [...] Use, 01/30 (more content not included)... Normal [facility] Comment on above: Result Comment: Elec tronically Signed By: Laureano Phillip DO\.br\Date and Time Signed: 02/28/21 11:03 EDT ED Patient Summaryon 021 ED Patient Summary [address] [address] Patient Discharge Instructions Person Information Name: RAJIV TOVAR Age: 25 Years Arrival Date: 02/28/2021 09:10:34 Discharge Diagnosis: Chest pain; Viral URI Primary Care Physician: Alon Weber MD Provider Information Primary Provider: Laureano Phillip DO Advanced Rn Acute:None The exam and treatment you received in the Emergency Department were for an urgent problem and are not intended as complete care. It is important that you follow up with a doctor, nurse practitioner, or physician?s assistant department manager for ongoing care. If your symptoms become worse or you do not improve as expected and you are unable to reach your usual health care provider, you should return to the Emergency Department. We are available 24 hours a day. RAJIV TOVAR has been given the following list of patient education materials, prescriptions and follow-up instructions: Follow-up Instructions: With: Address: When: Alon Gus [address] [place] [address], [place] [address] Business (1) In 3 days In the event that this physician does not participate in your insurance network, please consult with your insurance company to find a nearby participating provider. Patient Education Materials: COVID-19: How to Protect Yourself and Others - [facility][NOTE 3]; COVID-19 Frequently Asked Questions; Upper Respiratory Infection, Adult A MESSAGE TO ALL PATIENTS REGARDING OPIOIDS PRESCRIPTION OPIOIDS: WHAT YOU NEED TO KNOW Prescription opioids can be used to help relieve gbhdccow-ar-hfmrvw pain and are often prescribed following a [...] be struggling with addiction, tell your health pet care attendant and ask for guidance or (more content not included)... Normal [facility] Hep Func Panelon 02-28-2021 ALP [Catalytic activity/Vol] 52 Int._Unit/L Normal 21-98 [facility] Comment on above: Performed By: #### 2 848173, 1458251, 33273920, 22612271, 10620055, 46661355, 2996600, 5003916, 8945772, 5997337 ####[facility] [address] [place] [address] Albumin [Mass/Vol] 4.2 g/dL Normal 3.3-5.0 [facility] Comment on above: Performed By: #### 2 414465, 9182803, 69982364, 48109086, 28733562, 65202517, 7064963, 9060040, 5413629, 0491894 ####[facility] [address] [place] [address] Albumin/Globulin (S) [Mass conc ratio] 1.4 Normal 1.1-2.2 [facility] Comment on above: Performed By: #### 2 133242, 8628510, 72211536, 10915811, 17777680, 39718258, 7314984, 9210110, 5788284, 0516871 ####[facility] [address] [place] [address] ALT No additional P-5'-P [Catalytic activity/Vol] 48 Int._Unit/L High 6-46 [facility] Comment on above: Performed By: #### 2 514301, 0802777, 28974013, 89572925, 00975597, 90561362, 1124649, 8224087, 7512947, 9154416 ####[facility] [address] [place] [address] AST [Catalytic activity/Vol] 39 Int._Unit/L Normal 5-43 [facility] Comment on above: Performed By: #### 2 385235, 3601354, 61141822, 54593606, 57092440, 44446610, 4464262, 9938770, 4833496, 9452086 ####[place] [address]57 Bilirubin [Mass/Vol] 1.2 mg/dL High 0.0-1.1 [facility] Comment on above: Performed By: #### 2 036778, 6417602, 09747640, 33814672, 61172228, 98743526, 8055109, 0993866, 3526464, 5686784 ####[address] [place] [address] Bilirubin.direct [Mass/Vol] 0.2 mg/dL Normal 0.1-0.4 [facility] Comment on above: Performed By: #### 2 316869, 5862770, 19879162, 34528946, 49134815, 71744337, 2021532, 3987888, 6509197, 4751296 ####[address] [place] [address] Bilirubin.indirect [Mass or moles/Vol] 1.0 mg/dL High 0.1-0.9 [facility] Comment on above: Performed By: #### 2 429421, 8906021, 25153058, 83366342, 24478023, 21078475, 4853843, 8657948, 1268071, 2575129 ####[facility] [address] [place] [address] Globulin (S) [Mass/Vol] 2.9 g/dL Normal 1.4-4.0 [facility] Comment on above: Performed By: #### 2 845605, 1022402, 07992362, 43052715, 23646256, 82214848, 6063390, 9089161, 6336336, 7554340 ####[facility] [address] [place] [address] Protein [Mass/Vol] 7.1 g/dL Normal 6.0-7.8 [facility] Comment on above: Performed By: #### 2 540807, 6295877, 23161030, 56687345, 79571225, 10995880, 5037841, 1915918, 3450240, 4463037 ####[facility] [address] [place] [address] Lipase Levelon 02-28-2021 Lipase [Catalytic activity/Vol] 33 U/L Normal 13-58 [facility] Comment on above: Performed By: #### 2 677802, 3278041, 45806355, 03162789, 57658610, 59892417, 1400562, 6311122, 0325759, 3212352 ####[facility] [address] [place] [address] PT & PTTon 02-28-2021 aPTT Coag (PPP) [Time] 31.5 second(s) Normal 25.1-36.5 [facility] Comment on above: Result Comment: Hepa rin therapeutic range (represented by Anti-Factor Xa activity of 0.2 - 0.4 U/mL) corresponds to PTT of 56.6 - 109.0 sec. Performed By: #### 2 952505, 7383269, 89138999, 62316441, 76195137, 50010587, 9136646, 1561675, 3416158, 2625963 ####[facility] [address] [place] [address] INR Coag (PPP) [Relative time] 1.1 {INR} Invalid Interpretation Code [facility] Comment on above: Result Comment: INR results are specifically intended to assess patients stabilized on long-term Anticoagulation therapy suggested INR?s ?Less Intensive Anticoagulation? 2.0 ? 3.0 Conventional Range 3.0 ? 4.5 Performed By: #### 2 816898, 3208121, 72790913, 94304360, 29770671, 59342177, 2588563, 8547885, 5304316, 0263272 ####[facility] [address] [place] [address] PT Coag (PPP) [Time] 13.1 second(s) High 10.2-12.9 [facility] Comment on above: Performed By: #### 2 689452, 5543847, 18283706, 35776290, 93068145, 06197381, 4366423, 6647012, 5832917, 6443408 ####[facility] [address] [place] [address] Prescriptions/Work Noteson 0 02-28-2021 Prescriptions/Work Notes [id number]# 1.00CD:127 Normal [facility] Troponin 0 Hr.on 02-28-2021 Troponin I.cardiac [Mass/Vol] ng/mL Low 10.10-27.10 [facility] Comment on above: Result Comment: The 95% CI (Confidence Interval) PPV (Positive Predictive Value) for myocardial infarction in females is 38 pg/mL, in males 51 pg/mL. The results should be used in conjunction with clinical conditions of myocardial infarction. (Access High Sensitivity Troponin I Instructions For Use, Yenifer Nedrow, January 2018) Performed By: #### 2 882698, 1576035, 60251316, 12150862, 79629031, 26343328, 0616636, 2753412, 1160265, 1025005 ####[facility] [address] [place] [address] XR Chest Single Viewon 02-28 XR Chest [...] Tereso Granger MD Transcribed by: OLGA Technologist: YONG Kaplan [facility] eGFRon 02-28-2021 GFR/1.73 sq M.predicted among blacks MDRD (S/P/Bld) [Vol rate/Area] mL/min/{1.73_m2} Normal >=59 [facility] Comment on above: Order Comment: Order added by Discern Expert. Result Comment: eGFR is race adjusted. AA=. Performed By: #### 2 311528, 0687532, 88628094, 19198271, 94795129, 73760102, 9967898, 3752917, 0654987, 1249218 ####[facility] [address] [place] [address] GFR/1.73 sq M.predicted among non-blacks MDRD (S/P/Bld) [Vol rate/Area] mL/min/{1.73_m2} Normal >=59 [facility] Comment on above: Order Comment: Order added by Discern Expert. Result Comment: Director Validation bib kidney disease could be indicated at eGFR's of less than 60 mL/min/1.73m2. Kidney failure is indicated at less than 15 mL/min/1.73m2. Performed By: #### 2 469471, 4586416, 25466554, 45470077, 17942351, 29957643, 9514264, 0479811, 2197510, 0208589 ####[facility] [address] [place] [address] C Urineon 02-01-2021 Bacteria identified Cx Nom (U) Microbiology PROCEDURE: Urine Culture [R1] SOURCE: Urine BODY SITE: COLLECTED DATE/TIME: 01/30/2021 22:56 EDT RECEIVED DATE/TIME: 01/30/2021 23:58 EDT START DATE/TIME: 01/30/2021 23:58 EDT FREE TEXT SOURCE: Darrick ANDERSON, Joshua Hollingsworth DO, Joshua Egan FINAL REPORTS Final Report [...] Locations R1: This test was performed at: [facility], [address] [place] [address], [address] , , Normal [facility] Comment on above: Performed By: #### 1 5380330, 3124556 ####[address] [address] Coding Summary.on 02-01-2021 Coding Summary. CD:[id number]:[id number] G h0bWw+PGhlYWQ+EI6JYLK sN70ymWYrhK5WU7bLTU7Z LEZEJHIEDK2XGD5cfJG2L ZfxO3IjpbUb BkddsSQsAR09LXp3LEX8d QonBIqswT3onBGjK4m3Ke LhAB36jP45LGaqWSFzCqG 3LjZpbjsgbWFy W8keDxDavLLkDpl+PHRhY mxlIHdpZHRoPScxMDAlJy DvyKbsJS5zWt0kMHJeMHR vbGxhcHNlOiBj g8grSVJnLVcvKU5zkNsaR 2YeeHH4CUYgu1v3Ca42iZ I+GWQuNBL3aHgjOTbct55 6IfWjg8vhDGN1 pPWpTMgxQFV6P56xi9H4F VKiZXCiBCY5fIC5cP9zxR mvqwxyP8UdvPMvGlH0GXJ 5cNWhqK2ekGpx pvjffG2pRti+S06IYA3EJ DIELT7UCio8U2JqFksyeR I+CM90PNRpIR51uFHjgBV vt4tcpDl9SyGt QJWsDKP1uPvoXPvhq5QkL DUjZ15ypFEmt4I1FIFdaC wlsMPvLkPilDB6nK4eWAm kkucii7pzqtno Siopp4epjq43cN10Z54sR JpcRCThATR2ZGFaGIQegI euqe3uuJ1iWy4+WIijt8h ho5rgmAi3MlZe KJBikpJjoGspINB2w5IxL n06M6WgyStid4SnYst4uu 90yGUxi2S1zYU5NEwlIAC tpT9rGFocAwW6 WCAcOdJgsY61uMBzYThoW m5igUfaaZlrGW5dJMAquo geTINuqE5aMWLbgFObwFx kVZ6xJIMpbuqt n503ZyKvCGA6LWHmjFKuS 0RtsV8vCvYsKIQjTULgM0 OrcLArFTdrT291XKnyPzX 9SYPzblZxI4Ht DFRoaYudXvU7a3O5Kk5So 3VrtihhDBH0MQofLMC1Si FhUhKgYoV4V0AjVvz0YEV dvAujDV0mV6Bi MTFuopunnrjerZM1FUDtX IRbtV55eJJtSQzcQr3wx3 P5d470CZRxLGNsuC46Li4 udDogMTBwdCBU kA9hsexbo0tfpcopBoOfQ POuTBj2VQm9CEVbxMtfQi SdGDJ7LzL3JOF5mZJmlI4 elRushvtvlE4c Oyc+R16toS5rLXV9OES2o ubgRRRdlwGtRX42SR68E5 RyPjwvdGFibGU+PGRpdiB rnSpwAU9dIzLx m5vyd3RhKCkuA8WbFUFtV HutRpx5CSTwMOZ5iJR3bL 0gTSBdUEpej3J8fYF9F6B igfPppc8su1xs OEApOYnpO27fpCOvk3O5F IVfcYP9OMYnaZoaAwZopF 93Oyc+WTFjrZykx3ZmTnx yt8mlc0bagVg4 QvQfSIEnzwVvzNsrKYO9d 3QtKn26C59dIVloSJTrBA JzBIYxAYArkBveha2utA0 wIi8+PGNvbCB3 wQN5eB6aTCXyZsR8MXydH 261DzPbhHOsZrxma2vfc9 woqHo8IxYnHMBspiZwuTs aIFI6q3NgSy86 J17aCRcoLJPeRATkMMAeO QUclXdozt8fuS7qVf0+PC 2gu2pmdb29rL38gUA+PHR fDHQ3rHfuLTyw OJVgiN6mFLwlGvJ8IDCiI dKjbQ86oVBwKAlwRt6sxL ybfVbbIR5yWGPpgkusp34 9ZaGfw4xsAIAy bHPfCBbeUXW9E20so8H3Q TGmRYKmSHC7cJU2pX7hcQ lnbjogbGVmdDsgdmVydGl gNTawKIgnU653 IHRvcDsnPlBhdGllbnQgT iUmCXf7L8BuSvv6NAOyrG flXR1xrVZeRSlaZx1etNe ywFekQV5aQXIl pmeau730GvQve6cmCRHcg PXnNIawGDE2Y39jl0D5TG AtMEYnVTT0dVO3gE3nrHj nbjogbGVmdDsg oiMiwUbrMWqdJKhaG751A HRvcDsnPkJpcnRoIERhdG J2YF70CR24eMZtg2P0dKG 3W2YnVAMvfnhp rxrgbLX3IISqXMKmeJ97K i4uwUorIf8pNHBtYXH6UD RccPTcT7ZvfY9dGrZqTQM uFNEcR7JarSZy SVtnD229FRdmOtK1GAQjx kYoR8OwTCNudBpfBoN1j3 O3Xr6QY3L2TH42QL10vLX rr9A7aEX7V3Hd LYOqvzjxwnkktNJ5XGHsX HCxdQ33Ry1alFfxBj8cNU CvULQ3LRTkrDPsU4IcbS8 yOiAjMDAwMDAw X3ZbeAGgPIqtO584YOswF tX7EHMmxgVkZ4XtPPRxaF bqIoH3g4K7Md8IGKi9VY5 9ZU51mRFso4K5 cQM0E6JaCTBcifbogeiex AB3FMCkSLEkeW55Rp2pbW hgIn5gWPVdGJH2ZYEyiUA nP3WwxV8vHzCt CVUpWAJpY0CdmZYaAYrqN 603OBhtKsW9BGCatzNuZ2 WtWUGlgXfgKeC4m0K4Hn0 HCHVtKJ84MHC0 eZS7JS90YI37A9XnCypjs GFibGU+PHRhYmxlIHdpZH RoPScxMDAlJyBzdHlsZT0 uPu3rLHGuVENm xQtmhMXbGdEuk5mkCTMdV JfmKN2uwVttD7JyxWN3GK Iou3k0Jx28S47rJ6ZkuNW +KEBntYB9wGT1 oS4fHwJmImT4WTrsY080Q hGpnCBgRhemc1pka7narB v0TqO5JIOwlaCgtIxoGEX 5b3HdGd68T61q IHdpZHRoPSIxNSUiIHZhb Vpxlr2euO3gMl3+PGNvbC W5cXV5wC9kCaSrXkU6JOx dE325XyOapNQu Zoamy7tas8yyhIx5DcIwE TJtkdZuvCfwJLQ6f5EeTv 87N3VdtFouq1AgDvh7sv2 4tFRmo5D5vLC9 Z7YbBWDhrfxpxQWdfOosX L6pDAWkkovyGSWsaO2rPK KvR5c7MnCkMiM3RVqcL2K dakP9XEUiyFEj HAvnUAE9J58pt6B8RSHpH RPhCCS4jAV6rK2sfXfjtt ogbGVmdDsgdmVydGljYWw uVEqhY416LWGn hVtfUVNoeE0qIZWcuIWak AswLR5gWYHjnaraDdYNFZ GDAQITFObVL1D8R7SwEfi 1TYVmoBznRA9x lTJyWWdkBc3pyNznaKtlP L3tDEGqczslCUNjgK9jXQ StdCWauGksLR6iTQKnfqb nd437IhFwZTZ7 EOHwxFBjG3RheT0hHxYbG FBjPOZrX5IapUHcSMzzN3 04TWkjZmO2FZCjrfFaK9P sLWFsaWduOiB0 j3V9Kn5kDB6qOz2aUBikG R21UA71uNGuy2A7nQS7Q0 EnKBZgsaqsdjdnhEI0OIF gSEPeiI40zEDp DQieYn7gb2F4q766ALNzF WKljG97Md2fuYrqLJKdnD KIlZ1omsyji8uynnuxMrX hKCYdKYv4NSx9 GCImvOayAvPsFZT8MyK9C LC4hABxvC2uqFmyxozbwX 9wOyc+GwaiFMUtrsS7B3Q wNrj4FLCznBwl NZ5piRCyWMbkCq7suUbwt LlpYI8bBESqwcehPYNrmH 1aLDGlyFQayIosGZ6yOAP bdidhd123QtTr ZXT7CLNneUHsN1AkiK0iZ vBaIOEmVTKiN6LggSCbJN kbS865ZTtlNpM2PJEnxzE pS2CuGXBssUwh LqM5s9Z0Jq8KJY2zlLZ7B 5GuWkz5WHGhcMctHN7xeV EvDLfiKp4cqBdeiTmwHI4 wNTBpbjtwYWRk kI1cGNVsbNVkiZhtXN2aK VXiytoyq359GaRtNFR6FZ CfcMGxS4FmqE7eTjRbIOI tPJBzK5GjdJMs SAusC962LGmvYiM8IUSvo hNuV2WfBRXyjSylXnQ8r3 M0Qf0AxRCvP0MyE8q6Y0D kPjwvdHI+PC90 RBGdIM82bTIiuZEvj9smy Hc0WeZfFXSoPBG8jTsaKI dlm5CqFUElQ24blNXsa1Z 6IGNvbGxhcHNl FkJymXA3qI1jJTluxilol 7hcrvtvXnmpd1mxta08wK 47Y26mCGulPJUcHGCdIHM eXHBdzViacl0q jL7cZz3+FKMaoRO4oRJ1f A1sUeGzLpG8EVudQ582Ll NorPXvWsohy6bgp8ndvPy 9IjIwJSIgdmFs sGxuBGO2z1AmWr37F07hK HdpZHRoPSIyMCUiIHZhbG gvqp4kxJ1tZa9+WJ8rr8p rif93vU66zZE+ NTTaSOA1bGtmAKzgMIBqb N9yTSobNeE0FPSiGgTzhZ 30mYDlQNxcAq1hdOpxkEk aFJ3eETEforvj f136WeUwg7tfHOQxfGWsU JlzKLV3P29pf6Z2HLOmRQ XeLNV1vLK3iR0gxRcivjn gbGVmdDsgdmVy jVisZZpjSJeiR365ZKAqy KezVeWfrQFdP2qybaPPOH 1lOjwvdGQ+EANfUUN9tKp fHPfqCXFalY1q VAVcL8p4JoJqPnV3HUxeF 9HzxoZ5GXRxnRHgWONfyQ MUgF6ijuhhw4hjqashCrT eAPVnECu7WTj1 VLJxhAnrGyWbDGO5EqJ9L XO9oZAehO8pnUrwhtopsZ 9wOyc+RklOOjwvdGQ+PHR tROS2oVmyHKww IWEztN8dYGDjN4t1KyEgR qS9QIisX2UbwbV4VLXjmV SnYSRrsCQKpJ7mkeqtw4s vcjogIzAwMDAw JXd4AMr0KSEajXltAmIfC LX0PnW0ZCY9sWQzqW6hzY qkkptpeA8lMqn+TVJOOjw vdGQ+PHRkIHN0 oZtcPOltZQWruC0fPORyS 0h1UgTaXcN9FXjnP2Neln A8BTGzsDLoZWGesQQCiQ0 osmazl1mwjkrb OnEwWBRvBGz0SEn0JEYza BzbBaNnIMJ5YzT6DGX6rV YkgS5yhXosuerqeA1ePwc +AHJ9ZYH8DJ56 WD08N6DlKyaarYLogLE+P HRhYmxlIHdpZHRoPScxMD GyBgCwpWipZJ0vTe4eRPR yLWNvbGxhcHNl OiBj (more content not included)... Normal [facility] B hCG Qualon 01-31-2021 Beta hCG Ql Negative Normal [facility] Comment on above: Performed By: #### 2 222593, 0260613, 6781791, 90567548, 6358188, 41269770, 5277992 ####[facility] [address] [place] [address] Discharge Instructionson Discharge Instructions [id number]# 1.00CD:127 Normal [facility] ED Clinical Summaryon 2020 ED Clinical Summary [address] [address] ED Clinical Summary Person Information Name: RAJIV TOVAR/[facility] Age: 25 Years : 1995 Sex: Female Language: Indonesian PCP: Alon Weber MD Marital Status: Single [...] 01/30/2021 23:43:48 01/30/2021 23:43:48 01/30/2021 23:43:48 ADDRESS: [address] [place] [phone] PHYS DOC NOTES: MEDICAL INFORMATION: Prescriptions Given: New Medications [id number], [address], [place] [id number], [phone] cephalexin (Keflex 500 mg Cap) 1 Capsules [...] Follow up: With: Address: When: Alon Weber [address] [place] [address], [place] [address] Business (1) In 3 days 02/02/2021 DIAGNOSIS: Acute UTI Normal [facility] ED Note-Physicianon 02-01-20 ED Note-Physician CD:[id number]:[id number] 2 1MM45fTkttvNfu9sceq5s GT1vLhJihhCyXZfoAk4yv 0ivKM07jt3iZcYcGc7+Cj ovLM1BDChXSENn xO6rWABHAylOGpEvQK7aJ yTTOo8XVTOzYNmATFklGV 1qMGQ5ybzexU5qDP6kRVM juERxNf2wj9z6 BdisJd4sDa8BAx64bGIkg WNiDHORQ8puqC6dOG3gbP IgO5OlVKHqUn0GZHn9eMo qmH4asjS4Cjq5 pFO8Bz21s5tdoaMrw8RlR pR6OAsqeVh4nHraZWckmG 7iGxAmLVOKyM3leOojEH9 fvM0ynsDkvClk biI+WurwIDWcLml8xHMvQ L07C0AgnWaxYbv5nFA4YD PcqZFeHKNrlCt0FEAHDIU BLUNvbXBhdGli oCOhEVKgslOyitI3VprZT GReWuGoJwc8T3ceGWD+Cj wfs7X3Fsb4FVr5KDH0oAn kIYIpu164GJHy lHdkrKwlmLJez01aYFHtr ZPzCjMzm031VHBwrrO2XO znwVczEog0lSVrmORrn1b loRy5AgClSKHo HpiOUPZjlTjvx3LyEadVM Nukh7kvjyKvoFcwRNJ1g9 SaIMcrWMCjFTW3JrTjRB5 +CgkJPGNvbCB2 RKxrY774PwNheHKpl0duv Gv3NvQ3BUXzVj7ORYemS6 9qV9VgkXG+Kuo5qNUeTHy +CgkJPHRyPgoJ YXo7yWLwd3N1xJC8RkTay gIbk4k3HNhsPLN8YnZ4PG I0oTCgpH3trNbwayqdtF1 wOyI+CgkJCTxk mCRnU8zlb6A1ZdZiz0Lqg CheglEkVPBrJxXbk4voFq mkHYZavK3uNYF5PoGfYEE leHQiIGlkPSJf OzTgVMAtUkDbLZCsWd10H aGeKKh6TFddGckcMZQ2Yt DfVwSeQaWdlRlwZZ7hpRH kZGluZzogNHB4 OyI+HGTxXV7zI6kmd0B6Y jWza5PilYswpbOvx5WnBF teWaydtUDeDDT4wZprGTG gf524DRwexIwp rXmuXs8iWUafvAW2eN7tQ SYreyA9iP1zGlF4uvKcdq kisvC4Sh3GPHOwBeDUrpA pic9niJipxfpy r0Wewm25G5LhRG4+CgkJC EkvtFAyD3ayu6P1StVfr5 Fpv72futT7RY1snFL6DUT zRLByThJco8om YmxlIGRkZnJlZXRleHQiI UEyIgO4ykFyd1P3zQ1ke8 B5nPQ6AvOytV0azBucsMK kIQK1pUYvcVny uPIgE2pvOJYXU5ygN47PW KGMZOPCMPUpAUd3WQdhVe QiIGlkPSJfYTMyMjFhZGU uMLZwZN61SmNh RAXlZQByUsR3JYGnEoQ7D VB0Bk78d3OetvLkxYmaJY 4caMTcG4vkVzLqqCChREn lApRzPGMeyA9t MmXtoHJ4OKTexBDeHPwpJ 488CNmnNgB6UGUmzC5nHo DnB2BuBFvcOJetLGg9GKC wmjSzd9N4hZH8 DK7bqi4qbRlzQh6ecZ72Y UuxfJH4SP4ccy2woTepwE V8dQ1zFQQgbbO0yQ4zYlW zw16cSgQ+JiN4 UQE0Mg7dsOUncWqwwEtaI yVoBHTxSAX1DIkhXZYwKN 6aO4rtHYk4R8QjYY3+PGJ yIC8+CgkJCSYj cLAfWzxgEKx9OaoWBZrXP ZPhomMrkESnbh4cHXStnk LvoGL4cIExOSKrlK19MIF uYGUpHPC7FvPh FcwoTZIudpmtfOfeTH2fr U3xGNVlX0o4CdEwZI8eFl jsEmT7OHknCAj9XKipGKj bPU67ROu6NOGd BBD5DfEvXkQjKyXjm9F8w JS2AbGeo6InFTs1RZ9llk K2Fy40G7Qpxd4ENZiRRK6 kaXY+CgoJCQk8 UZz8XHQeUCJdHCMlTBYhP 5Vrj49kPXOiVFNuPEOxFA IoYHNvPHvyo7SdsBZsHQQ 8PHp8BIJhsoTf n5GsSkzeTlZaGPkiZXK4v K6dG80yXJ0pDL7CZvRgHI VjBEJeAxCteUE1Zr20GpV 4IUN9DX81EnUf FSK8UKmbRGv2Jz7dIUOhE tWqVBS4XJvbPDV6oQniDN NmHWQxlP8tEfZ1eFs6Pw0 0y4FdjcCmfQAs wy7uRJMsMRL7jD4wXVsgv GxheSI+TWIsWD8rg5T8yA Q9RmMeikVtx6WwT6k4QfN bj2njNeH1NWz6 TIExF14mYNFaa329VEArA GVybGluZTsiPkNoaWVmIE AnnEXiRQhciDran4Ocyw4 3I5VnJJ7+CgoJ NTt5JBj3WAEwKUTaYQAuJ GVtcmNvbnRlbnQiIGRkOm LhfwLzccY7oQUlUFIZAPE ZNDABT41VQVIf BASdGoYaQzTlEG5tNQI9l EP3NxOMOwHgYGz6TPRdTL BbLEJFPz4FIRYwYHURIJR RLBP8XVNOWLCx nNY4At46YdLzYemsIm6aZ NDqTCVlCcRzEpbnZo5zVW f7DVMqIHuaPuJhPywNJHa 1YQf9VCHeSRRh PSJkZGVtcmNvbnRlbnRpd FQiJGDmucFsb1SyKsjsOm LkABwtg464SI64uWomMN5 dYWZFT8COJW3V RUFTIiBkZDplbnRpdHlpZ Q3fPGr3NVI6XZHiEoXwqS D5Ko0iNCIkPtwzHu2wDTG hLTRkMWMtYjNl Jn53CSW5TYt9NIF3VbugU FeqaJ0cBdAyYWLIbM2qzZ egIH1obX5oiuSlqHoxfvE +cHQgYXJyaXZl ypEhp3JombwclMAwj9bmR TYmVUQbAHQydA9orTobfH FjmWFlsEJwzS0reThvAFK rVL9aBGBdPK1f G40zgdH3scQ3jPJivqwnz KYpNOJ9JPnfSKEdhGtcRU OrPQBzVJOskqOmh3HiFTz zYM5zUMpmrpHm eMMgQyBfonNvhT1dKCM6k 7UeYsobBEh1UwvWPUf0R6 Etnr5IMZgZRS3yzWS+Cgo URFj2TUz7DDNg VYScAKSzVMFuM5Msj34bD GRyZWZyZXNoYWJsZSBkZG kno6YhuPRcXOJ0XXv6UYF yrlIhf8OgSdxx UdDpPIimOJT9bR6fL24mP V0bNI1CAxLcANYwYmLeIw ZnvEX3Dc3wU7CiSFB0FQ7 hPdYbPOO4ZsTi PIx1Rl9zPRO4CmJ4YDmtN IWjZOU2cGaxGOQiICMqlR 0sRyC8fCe7Af87e4GujrJ wdBBnuw6kKUVa INS9kE3wPGdtfIbdvJN+P WZmZH6bw6V8tEI4AuRpcw Nve8HbV6b5YfEgu7dzQuV 4ZOu5MMOrH81a PQBtb014AHXfRPFuiLgoS OmxBbvgs0Urqzdbl7CoJP Bbq4FdrYVZgPhlFETuAY3 ymAQpKqcqj6Yj br1GOggBUPxbsCAdT6wcy 1I9BbEbXB5iM89inYKloX DfXOZ6X15bQ3YdwF5sXAU KCrMuJJvuf584 GQ15xSbyOT0oYT4KI5VCQ LNaXFAzBjHpRuIaBQ8jNS V4tLI0ByCtShFzZyF5QEI 1DKRtAOOWQa28 EzvRLAZPDiJ3D1J0V7R1J ZPfpQP0Ew1aGZR3BvuhNN 63OBXvEENbNDAsYHDaRL7 7JHTmDFY7FAD4 TBgfMzySQIz5WUi4NTIyH XNzPSJkZGVtcmNvbnRlbn FhzIPzWaRsOKvwf855JB7 6yMdqWS3dWJHS X3DQBZ2RBMEQTkKePBrjj kHahObjYI1xULGeZIO2FR 52iMQ2saRxc5akuc6pITX rjDX1Uz56JMKu LvoxME3nZugsCZX0TZxcJ QF2Pn09TUD3WKCtZXOwHQ XlOdhLQCl7OSg0AZZcQWI zPSJkZGNvbXBv ojUuoWOnSSM0CG82kKG1l AD6rGZ4dXR4MtTvp2ZonL ScxXQkeJQ8Up26Q6S4Gmv kLG3oF3FmRCTx XmpiQiJ8Ht54FKNiRwPfN GU0W9IhZxdBJDz9UIh4AB YiCOLgVTKnZZJdRHE3ABk 8HUHlnkCca2Xw SpbhDfNuIJuufN7fpZ0ha HfhB0P9qTyaBQQ7n7Mruv lnaHQiIGlkPSJfMjlkMjM 9NZSpWEIwSG37 Fmo6SUUhEkPyRNm6SYf8U dZ5KuF1Xt2YVQrof4RdY2 tyIbLjhDDwQGRcUfI1FRJ jKW9xEATpHG9d bZOrn9q1uVILPFusv8Chd 3VpvsgblxNnqTG0bkIahl LwVM02krN4zYIwXSSubOJ cseUvxYW7p5K3 QB4sRIfmiCBejAq7pPUzy YKqmLOcG4MaGJ4qC5XfKA 3veF2lzGTrJLbsHOMnTGQ gI6PaAQEvBA5e FCKjbH0ccM9wLMOuTVOzn dK1jZJylKCowEpkIKKbL9 JpYmVkIGFzIHNoYXJwLCB ppsIsh0UtVGJf j91qtAq0HBZqXZbrtDFuY NYvGVdgc7xtCAAfOQL6UX baHwynBP0dFEdzk3XwXYE uM9bzPVR8ddKm bnRseSByYXRlZCBhdCBhI RvzOIMsNX9fIJlgzdH1c7 huxwIjPPTewCSzeX8hjGr oRIZjd6EvSVMg gB2lf1L6GX5qJAHxb9VmY NTyRCQ4xMWqGU4kdl8xVG SecIMzFFT9x6FfdSMvXM0 lIUBsVXL8SZ7w yRynMfA1XAYwAV4tg5NsE BbojCG2bAUqPW2jCZYsNU 3dd8O5eQL3LsVgYQKcgdf cvX4kTiDbvCq0 OXXlJBIpkakiFw80oB2oZ vWtoSu7IV7pltlmyn99o3 K7BEFcqZnitDDhY1csKKW vdHRvbTogMHB4 OyI+Pk7fsCoroW0hqIPjP fYpnAQwNBtlm9HcdmBcGs lkc1Ogbx1dF5jqUYj7x0F rjlPcjUlvXU0h zSJmDFxdVg75k2M0HZLub PqzrDGzMVteAb4dr1B1v9 57PLYswGpwuZNbJ7zdZPB ztNbtPQA8VtOy Y (more content not included)... Normal [facility] Comment on above: Result Comment: Elec [...] this condition includes: ? Antibiotic medicine. ? Vfal-nlr-mydcarj medicines to treat discomfort. ? Drinking enough [...] these instructions at home: Medicines ? Take upbp-xmc-aditafq and prescription medicines only as told by [...] This in (more content not included)... Normal [facility] ED Patient Summaryon 021 ED Patient Summary [place] [id number] Patient Discharge Instructions Person Information Name: RAJIV TOVAR Age: 25 Years Arrival Date: 01/30/2021 20:17:08 Discharge Diagnosis: Acute UTI Primary Care Physician: Alon Weber MD Provider Information Primary Provider: Joshua Hollingsworth DO Advanced Rn Acute:None The exam and treatment you received in the Emergency Department were for an urgent problem and are not intended as complete care. It is important that you follow up with a doctor, nurse practitioner, or physician?s assistant department manager for ongoing care. If your symptoms become worse or you do not improve as expected and you are unable to reach your usual health care provider, you should return to the Emergency Department. We are available 24 hours a day. AKHILRAJIV has been given the following list of patient education materials, prescriptions and follow-up instructions: Follow-up Instructions: With: Address: When: Alon Weber [facility] [facility], [address] [place] [id number] Business (1) In 3 days 02/02/2021 In the event that this physician does not participate in your insurance network, please consult with your insurance company to find a nearby participating provider. Patient Education Materials: Urinary Tract Infection, Adult A MESSAGE TO ALL PATIENTS REGARDING OPIOIDS PRESCRIPTION OPIOIDS: WHAT YOU NEED TO KNOW Prescription opioids can be used to help relieve zconzbvq-me-yplnea pain and are often prescribed following a [...] be struggling with addiction, tell your health pet care attendant and ask for guidance or call [facility] National Helpline at 8-318-325-HELP. v Source: [place] Department of Health a (more content not included)... Normal [facility] UA With Cult Reflexon 2020 Bacteria LM Ql (Urine sed) 1+ /HPF Abnormal Trace [facility] Comment on above: Performed By: #### 1 [id number], 7430172 ####[facility] [address] [place] [address] Bilirubin Ql (U) Negative Normal Negative [facility] Comment on above: Performed By: #### 1 6683757, 0620427 ####[facility] [address] [place] [address] Clarity (U) CLOUDY Abnormal Clear [facility] Comment on above: Performed By: #### 1 6949276, 5228055 ####[address] [address] Color (U) YELLOW Normal Yellow [facility] Comment on above: Performed By: #### 1 1941041, 9594869 ####[facility] [address] [place] [address] Crystals LM Ql (Urine sed) Present Normal [facility] Comment on above: Performed By: #### 1 1160670, 0169257 ####[address] [address] Epithelial cells.squamous LM.HPF (Urine sed) [#/Area] 0-2 Normal 0-2 [facility] Comment on above: Performed By: #### 1 0286240, 4125207 ####[place] [address] Glucose Test strip (U) [Mass/Vol] Negative Normal Negative [facility] Comment on above: Performed By: #### 1 7521317, 5099909 ####[address] [address] Hemoglobin Ql (U) TRACE Abnormal Negative [facility] Comment on above: Performed By: #### 1 0654399, 9648230 ####[address] [address] Ketones (U) [Mass/Vol] Negative Normal Negative [facility] Comment on above: Performed By: #### 1 7803617, 7970715 ####[address] [address] [place].plasma/Lithi um.RBC (Bld) [Mass ratio] 0-3 Normal 0-3 [facility] Comment on above: Performed By: #### 1 5631776, 1024855 ####[address] [address] Mucus Ql (Urine sed) TRACE Normal [facility] Comment on above: Performed By: #### 1 2524451, 2939302 ####[place] [address] Nitrite Ql (U) Positive Abnormal Negative [facility] Comment on above: Performed By: #### 1 3685673, 3316740 ####[place] [address] pH (U) 7.5 [pH] Invalid Interpretation Code 5.0-9.0 [facility] Comment on above: Performed By: #### 1 6199564, 6522595 ####[place] [address] Protein (U) [Mass/Vol] Negative Normal Negative [facility] Comment on above: Performed By: #### 1 0633743, 5453016 ####[place] [address] Specific gravity (U) [Rel density] 1.020 Invalid Interpretation Code 1.005-1.030 [facility] Comment on above: Performed By: #### 1 8827576, 1055950 ####[place] [address] Type of Urine collection method Clean Catch Normal [facility] Comment on above: Performed By: #### 1 7465176, 5631478 ####[place] [address] Urobilinogen Qn (U) 0.2 {Arnie'U}/dL Normal 0.0-1.0 [facility] Comment on above: Performed By: #### 1 5564527, 2893676 ####[place] [address] WBC Auto Ql (U) 1+ Abnormal Negative [facility] Comment on above: Performed By: #### 1 7372003, 9994614 ####[place] [address] WBC LM.HPF (Urine sed) [#/Area] 6-15 Abnormal 0-5 [facility] Comment on above: Performed By: #### 1 0387164, 3277110 ####[place] [address] [place] [address] Auto Diffon 01-30-2021 Basophils/100 WBC (Bld) 0.4 % Normal 0.0-2.0 [facility] Comment on above: Order Comment: Order Added by Discern Expert. Performed By: #### 2 061533, 4748156, 3353830, 83464651, 1699044, 11968450, 1380937 ####[place] [address] [place] [address] Basophils/Leukocytes Auto (Bld) [Pure # fraction] 0.0 E9/L Normal 0.0-0.2 [facility] Comment on above: Order Comment: Order Added by Discern Expert. Performed By: #### 2 743230, 6042626, 6151532, 21805179, 4540857, 29376592, 6702445 ####[place] [address] [place] [address] Eosinophils/100 WBC (Bld) 1.4 % Normal 0.0-8.0 [facility] Comment on above: Order Comment: Order Added by Discern Expert. Performed By: #### 2 447407, 9488315, 8980487, 71621970, 0641176, 39469125, 7779410 ####[address] [address] Eosinophils/Leukocyt es Auto (Bld) [Pure # fraction] 0.1 E9/L Normal 0.0-0.5 [facility] Comment on above: Order Comment: Order Added by Discern Expert. Performed By: #### 2 334308, 3889567, 1991732, 99509132, 4489217, 14819760, 3706770 ####[place] [address] [place] [address] Lymphocytes/100 WBC (Bld) 23.7 % Normal 14.0-50.0 [facility] Comment on above: Order Comment: Order Added by Discern Expert. Performed By: #### 2 053639, 4103575, 6513621, 79973442, 0407634, 53749388, 1143603 ####[facility] [address] [place] [address] Lymphocytes/Leukocyt es Auto (Bld) [Pure # fraction] 1.9 E9/L Normal 1.0-4.0 [facility] Comment on above: Order Comment: Order Added by Discern Expert. Performed By: #### 2 921201, 4682413, 1937223, 04097285, 9249966, 13910319, 3315062 ####[place] [address] [place] [address] Monocytes/100 WBC (Bld) 6.2 % Normal 4.0-14.0 [facility] Comment on above: Order Comment: Order Added by Yifan Expert. Performed By: #### 2 441152, 1269149, 2444031, 47706673, 0355225, 00115833, 7104128 ####[address] [address] Monocytes/Leukocytes Auto (Bld) [Pure # fraction] 0.5 E9/L Normal 0.2-1.0 [facility] Comment on above: Order Comment: Order Added by Yifan Expert. Performed By: #### 2 474357, 2909666, 1082294, 45051820, 1195971, 46792174, 1376410 ####[place] [address] [place] [address] Neutrophils/100 WBC (Bld) 68.3 % Normal 36.0-75.0 [facility] Comment on above: Order Comment: Order Added by Yifan Expert. Performed By: #### 2 448116, 3720571, 3471196, 41723039, 8651846, 78666122, 6803591 ####[place] [address] [place] [address] Neutrophils/Leukocyt es Auto (Bld) [Pure # fraction] 5.6 E9/L Normal 2.0-7.5 [facility] Comment on above: Order Comment: Order Added by Discern Expert. Performed By: #### 2 417557, 1866522, 0757022, 24418820, 7863090, 29983991, 5808992 ####[facility] [address] [place] [address] BMPon 01-30-2021 Calcium [Mass/Vol] 9.0 mg/dL Normal 8.9-11.1 [facility] Comment on above: Performed By: #### 2 986797, 5668148, 2004065, 44457443, 3844235, 94049544, 7700406 ####[facility] [address] [place] [address] Creatinine [Mass/Vol] 0.7 mg/dL Normal 0.5-1.3 [facility] Comment on above: Performed By: #### 2 940725, 6605260, 5432563, 81995724, 2535938, 63115469, 2142926 ####[facility] [address] [place] [address] Urea nitrogen [Mass/Vol] 10 mg/dL Normal 5-21 [facility] Comment on above: Performed By: #### 2 796348, 4695357, 2003063, 76230839, 7545840, 54819637, 6408454 ####[facility] [address] [place] [address] Urea nitrogen/Creatinine [Mass ratio] 14 No Units Normal 10-20 [facility] Comment on above: Performed By: #### 2 818624, 0601867, 4540166, 02067845, 7392224, 52354888, 6250512 ####[facility] [address] [place] [address] Anion gap [Moles/Vol] 12 mmol/L Normal 6-16 [facility] Comment on above: Performed By: #### 2 203311, 8328334, 5644978, 90288817, 8167477, 94483845, 5254377 ####[facility] [address] [place] [address] Chloride [Moles/Vol] 104 mmol/L Normal 101-111 [facility] Comment on above: Performed By: #### 2 755294, 0081401, 4291315, 72897960, 7895313, 96226085, 4306193 ####[facility] [address] [place] [address] CO2 [Moles/Vol] 25 mmol/L Normal 21-31 [facility] Comment on above: Performed By: #### 2 942927, 2045104, 6865661, 67473762, 2226399, 13683717, 5810650 ####[facility] [address] [place] [address] Glucose [Mass/Vol] 93 mg/dL Normal 55-199 [facility] Comment on above: Result Comment: If t his glucose result represents a fasting glucose, interpretation should refer to the following reference range: 55-99 mg/dL Performed By: #### 2 439544, 4886626, 4013371, 34644408, 1367638, 40562846, 3747505 ####[facility] [address] [place] [address] Potassium [Moles/Vol] 3.8 mmol/L Normal 3.5-5.3 [facility] Comment on above: Performed By: #### 2 666540, 0333648, 6228615, 46150790, 4132922, 54037180, 1540839 ####[facility] [address] [place] [address] Sodium [Moles/Vol] 137 mmol/L Normal 135-145 [facility] Comment on above: Performed By: #### 2 107362, 5264166, 4910931, 36065389, 6166078, 69191988, 2998446 ####[facility] [address] [place] [address] CBC w/ Auto Diffon 1 Erythrocyte distribution width (RBC) [Ratio] 12.2 % Normal 10.9-14.2 [facility] Comment on above: Performed By: #### 2 754502, 8677539, 9067800, 23404241, 9001785, 81398797, 8448615 ####[facility] [address] [place] [address] Hematocrit (Bld) [Volume fraction] 39.3 % Normal 34.0-46.0 [facility] Comment on above: Performed By: #### 2 525513, 0615422, 5841836, 78517904, 4944894, 01617649, 4851917 ####[facility] [address] [place] [address] Hemoglobin (Bld) [Mass/Vol] 13.3 g/dL Normal 12.0-16.0 [facility] Comment on above: Performed By: #### 2 170042, 6717473, 5820695, 91671085, 2127558, 05373748, 7115469 ####[address] [address] MCH (RBC) [Entitic mass] 31.3 pg Normal 27.0-34.0 [facility] Comment on above: Performed By: #### 2 676084, 9309200, 1734855, 88748074, 4158681, 19296844, 0689709 ####[address] [address] MCHC (RBC) [Mass/Vol] 34.0 g/dL Normal 31.4-36.0 [facility] Comment on above: Performed By: #### 2 515365, 1091792, 3191554, 41324939, 8696306, 28000578, 7684825 ####[address] [address] MCV (RBC) [Entitic vol] 92.1 fL Normal 80.0-100.0 [facility] Comment on above: Performed By: #### 2 665897, 0839337, 4698894, 87762880, 4503218, 48735912, 6032728 ####[facility] [address] [place] [address] Platelet mean volume (Bld) [Entitic vol] 9.2 fL Normal 6.4-10.8 [facility] Comment on above: Performed By: #### 2 406397, 5186105, 1161232, 60935528, 4699864, 59587066, 7647096 ####[facility] [address] [place] [address] Platelets (Bld) [#/Vol] 214.0 E9/L Normal 150.0-500.0 [facility] Comment on above: Performed By: #### 2 823526, 8409649, 7608975, 44101668, 9083351, 81092975, 7468561 ####[facility] [address] [place] [address] RBC (Bld) [#/Vol] 4.3 E12/L Normal 4.3-5.9 [facility] Comment on above: Performed By: #### 2 984495, 7240138, 1878740, 23942791, 2649186, 91356412, 7849299 ####[place] [address] [place] [address] WBC corrected for nucl RBC Auto (Bld) [#/Vol] 8.2 E9/L Normal 4.0-11.0 [facility] Comment on above: Performed By: #### 2 561875, 8146428, 6268755, 49164881, 6856480, 10490453, 0915965 ####[facility] [address] [place] [address] Consent for Treatmenton Consent for Treatment [id number] .00CD:127 Normal [facility] Hep Func Panelon 01-30-2021 Albumin [Mass/Vol] 4.0 g/dL Normal 3.3-5.0 [facility] Comment on above: Performed By: #### 2 232138, 5067317, 8552022, 58645942, 1915445, 85941306, 0616295 #### [facility] [address] [place] [address] Albumin/Globulin (S) [Mass conc ratio] 1.5 Normal 1.1-2.2 [facility] Comment on above: Performed By: #### 2 008184, 6255292, 8000217, 83628471, 8669298, 45070016, 2205863 #### [facility] [address] [place] [address] ALP [Catalytic activity/Vol] 44 Int._Unit/L Normal 21-98 [facility] Comment on above: Performed By: #### 2 922853, 5062379, 4441504, 93607081, 5094614, 89880724, 9128391 #### [facility] [address] [place] [address] ALT No additional P-5'-P [Catalytic activity/Vol] 20 Int._Unit/L Normal 6-46 [facility] Comment on above: Performed By: #### 2 842740, 4963720, 1756419, 36889191, 3447149, 23745161, 6927087 #### [facility] [address] [place], [place] [address] AST [Catalytic activity/Vol] 16 Int._Unit/L Normal 5-43 [facility] Comment on above: Performed By: #### 2 774765, 1666703, 8756944, 79640545, 1573811, 25798577, 8646653 #### [facility] [address] [place] [address] Bilirubin [Mass/Vol] 1.1 mg/dL Normal 0.0-1.1 [facility] Comment on above: Performed By: #### 2 666114, 3603634, 2979305, 55520864, 9415204, 56839316, 0364239 #### [facility] [address] [place] [address] Bilirubin.direct [Mass/Vol] 0.2 mg/dL Normal 0.1-0.4 [facility] Comment on above: Performed By: #### 2 980538, 4929436, 5129140, 51329782, 8419690, 81249167, 5034917 #### [facility] [address] [place] [address] Bilirubin.indirect [Mass or moles/Vol] 0.9 mg/dL Normal 0.1-0.9 [facility] Comment on above: Performed By: #### 2 885566, 5205335, 1890173, 19894243, 3958954, 99473770, 0494734 #### [facility] [address] [place] [address] Globulin (S) [Mass/Vol] 2.6 g/dL Normal 1.4-4.0 [facility] Comment on above: Performed By: #### 2 940060, 8992561, 7681121, 10836025, 3564322, 24683351, 5830284 #### [facility] [address] [place] [address] Protein [Mass/Vol] 6.6 g/dL Normal 6.0-7.8 [facility] Comment on above: Performed By: #### 2 256748, 6063835, 1564994, 63174743, 7314429, 29621441, 5977973 #### [facility] [address] [place] [address] Lipase Levelon 01-30-2021 Lipase [Catalytic activity/Vol] 32 U/L Normal 13-58 [facility] Comment on above: Performed By: #### 2 139232, 4489991, 5541557, 90613221, 9137178, 02340499, 5947489 #### [facility] [address] [place] [address] eGFRon 01-30-2021 GFR/1.73 sq M.predicted among blacks MDRD (S/P/Bld) [Vol rate/Area] mL/min/{1.73_m2} Normal >=59 [facility] Comment on above: Order Comment: Order added by Discern Expert. Result Comment: eGFR is race adjusted. AA=. Performed By: #### 2 092773, 7872269, 2775781, 98132258, 0928840, 23948845, 6730760 #### [facility] [address] [place] [address] GFR/1.73 sq M.predicted among non-blacks MDRD (S/P/Bld) [Vol rate/Area] mL/min/{1.73_m2} Normal >=59 [facility] Comment on above: Order Comment: Order added by Discern Expert. Result Comment: Director Validation bib kidney disease could be indicated at eGFR's of less than 60 mL/min/1.73m2. Kidney failure is indicated at less than 15 mL/min/1.73m2. Performed By: #### 2 168671, 1858979, 4772996, 61973941, 1925863, 70364782, 4858879 #### [facility] [address] [place] [address] Provider Letteron 06-03-2020 Provider Letter June 03, 2020 To Whom It May Concern, Rajiv has been under my care and had a lap choly on 05/10/2020. She was seen post operatively on 05/23/2020 and was healing well. Rajiv is released to work on 06/06/2020 with no restrictions. Please call the office at [phone] with any questions/ concerns. Sincerely, Dr. Aiden Izquierdo faxed to [facility] to [phone] Normal [facility] Ambulatory Clinical Summaryo n 05-23-2020 Ambulatory Clinical Summary {[id number]}CD:092131 Normal [facility] General Surgery Office/Clini c Noteon 05-23-2020 [...] Aiden IZQUIERDO MD Only if needed [address] [place] [address]- Additional Instructions: F/U PRN Problem List/Past Medical [...] 04/19/2020 Family History Family history is negative [facility] Comment on above: Result Comment: Elec tronically Signed By: Aiden IZQUIERDO MD\.br\Date and Time Signed: 05/23/20 10:17 EST\.br\Electronically Co-Signed By: Mildred Cook MA\.br\Date and Time Co-Signed: 05/23/20 09:55 EST IntraOperative Documentson 1 07-17-2019 IntraOperative Documents [id number] .00CD:127 Normal [facility] Ambulatory Clinical Summaryo n 05-16-2020 Ambulatory Clinical Summary {[id number]}CD:935342 Normal [facility] Gastroenterology Office/Clin ic Noteon 05-16-2020 Gastroenterology Office/Clinic Note Chief Complaint f/u EGD HPI Staff This is a 25 year old female who presents today for a follow up to EGD. History of Present Illness 24 years old white female with no significant past medical history except for anxiety, referred to me from [facility] ER to be evaluated for right upper quadrant abdominal pain, she reports right upper quadrant abdominal pain, started 6 weeks ago, sporadic, moderate in nature except for the last time when it was severe for which she went to [facility], ER, she had normal CBC, CMP and [...] Information Ezequiel MARTINEZ MD Only if needed [facility] [address], [place] [address]- Additional Instructions: Patient Education Cholelithiasis Problem List/Past [...] Surgical Pathology Report; 04/29/2020 10:57 EST Normal [facility] Comment on above: Result Comment: Lupe goodally Signed By: MARU POLK, Ezequiel\.br\Date and Time [...] required. HOME CARE INSTRUCTIONS ? Only take tvzo-dcs-arvfwjh or prescription medicines for pain, discomfort, or [...] Document Reviewed: 08/09/2011 ExitCare? Patient Information ?2013 [employer] [facility] Coding Summary.on 05-13-2020 Coding Summary. CODING DATE: 05/13/2020 FINAL [facility] STATUS: Home (Routine DC) PAYOR: Reba APC DESCRIPTION 5361 Level 1 Laparoscopy and Related Services ADMIT DX: REASON FOR VISIT DX: K81.1 Chronic cholecystitis FINAL DX: PRINCIPAL: K81.1 Chronic cholecystitis SECONDARY: K82.8 Other specified diseases of gallbladder F41.9 Anxiety disorder, unspecified PYMT PROC APC STAT DESCRIPTION DOCTOR NAME DATE 64159 5361 J1 Laparoscopy, surgical; Aiden IZQUIERDO MD 05/10/2020 cholecystectomy with cholangiography [address] Anesthesia for Rodrigue Berry Bakari ANDERSON 05/10/2020 intraperitoneal procedures in upper abdomen including laparoscopy; not otherwise specified NOTE: The code number assigned matches the documented diagnosis and / or procedure in the patient's chart. However, the narrative phrase printed from the coding software may appear abbreviated, or result in slightly different terminology. Revised Coded By: Eugenia Mae Revised Date Saved: 05/13/2020 02:09 pm [facility] Main OR Intraoperative Recor don 05-13-2020 Main OR Intraoperative Record IntraOp Document Type FT Summary Primary Physician: Aiden IZQUIERDO MD Finalized Date/Time: 05/13/20 11:07:53 Pt. Name: RAJIV TOVAR/Sex: 1995 Female Med Rec #: [id number] Physician: Aiden IZQUIERDO MD Financial #: [id number] Pt. Type: A Room/Bed: Admit/Disch: 05/10/20 07:43:57 - 05/10/20 15:00:00 Institution: Case Times FT Entry 1 Patient Times In Room 05/10/20 09:29:00 Out Room 05/10/20 10:27:00 Procedure Times Start 05/10/20 09:44:00 Stop 05/10/20 10:20:00 Anesthesia Times Start 05/10/20 09:29:00 Stop 05/10/20 10:27:00 Last Modified By: London TURNER, My Cummings 05/10/20 10:27:42 General Comments: 1011- radiology transporter called dr. guo read xray dilated tapers distally can't exclude small stone possible spasm , Dr. Izquierdo stated understanding. - joan turner 05/13/2020 Chart opened to review and send charges. Angela Leavitt GOLF CART MECHANIC. Case Attendance FT Entry 1 Entry 2 Entry 3 Case Attendee Ankit AGUILAR, Linnea IZQUIERDO MD, Aiden ARAUJO MD, Ramandeep Cummings Role Performed Anesthesiologist Surgeon - Primary Surgeon - Assist 1 Credit Control Manager Time In 05/10/20 09:29:00 05/10/20 09:40:00 05/10/20 [...] Attendee London TURNER, My Villalba RN, Bernadette Osman. Stone Splitter, Arlette Davila Role Performed Administrative Resident - Primary Scrub - Primary Scrub - [...] Magalie R Role Performed Scrub - Primary Commercial Lines Sales Executive Time In 05/10/20 09:29:00 05/10/20 10:00:00 Time [...] X-ray Applicable) PreOp Antibiotic No Time Out Ankit AGUILAR, Linnea Given Participants Addy, TIMBO POLK, London Bray RN, Deejay Chowdhury RN, Angel Oglesby. Stone Splitter, Carlos Rock CST, Kim Ulloa Time Out Complete 05/10/20 09:44:00 [...] DYSKINESIA Outcomes Met? Yes Last Modified By: C (more content not included)... Normal [facility] Postoperative Documentson Postoperative Documents [id number]# 1.00CD:127 Normal [facility] Progress Note-Physicianon Progress Note-Physician Patient: RAJIV [...] TID, # 10 tab(s), Refills(s) 0, [id number], cm, 04/19/20 6:20:00 EDT, Height/Length Dosing, 58.5, kg, 04/19/20 6:20:00 EDT, Weight Dosing omeprazole 40 mg Cap-DR: 40 mg = 1 cap(s), Oral, Daily, # 30 cap(s), Refills(s) 2, Pharmacy: [facility][id number], 168, cm, 04/20/20 10:06:00 EDT, Height/Length Dosing, 59.5, kg, 04/20/20 10:06:00 EDT, Weight Dosing Documented Medications Documented desvenlafaxine 100 mg Tab-: 100 mg = 1 tab(s), Oral, Daily, Refills(s) 0, Depression Problem list: All Problems Biliary dyskinesia / SNOMED CT 785640664 / Confirmed Depression / SNOMED CT 39169726 / Confirmed Histories Past Medical History: No active or resolved past medical history items have been selected or recorded. Family History: Entire family history is negative. Procedure history: EGD (esophagogastroduoden oscopy) gastric outlet reduction ([id number]) on 04/29/2020 at 25 Years. section (01074332) on 07/23/2019 at 24 Years. Sinus (3787818983). Nasal cautery (982730133). Ankle (0004335). Comments: 05/10/2020 8:24 EST - Kluding INDEPENDENT PRODUCER, Bernarda Bilateral ankle stabilazation for flat feet Diagnostic laparoscopy (394829712). Comments: 05/10/2020 8:26 EST - Kluding INDEPENDENT PRODUCER, Bernarda ovarian cyst drained Social History Social & Psychosocial Habits Alcohol 04/19/2020 Use: Current Comment: [place] - 04/19/2020 06:50 - Faith TURNER, Christiana Davila Substance Abuse 04/19/2020 Use: Current Comment: Denies - 04/19/2020 06:50 - Faith TURNER, Christiana R Tobacco 04/19/2020 Tobacco Use: Never (less than [...] EST Heart (more content not included)... Normal [facility] Comment on above: Result Comment: Elec tronically Signed By: Rodrigue Berry DO, Bakari Cummings\.br\Date and Time Signed: 05/13/20 13:23 EST Progress Note-Physician Patient: RAJIV TOVAR Age: 25 years Sex: Female : 1995 Associated Diagnoses: None Author: Bakari Husain Jr, DO Postoperative Information Post Operative Note: Post Anesthesia Care Unit. Anesthetic utilized: General. Health Status Allergies: Allergic Reactions (Selected) Severity Not Documented HYDROcodone- Hives. OxyCODONE- Hives. Penicillin- Hives. Problem list: All Problems Biliary dyskinesia / SNOMED CT 554714799 / Confirmed Depression / SNOMED CT 17614550 / Confirmed Physical Examination Vital Signs 05/10/2020 [...] 8:11 EST Apic (more content not included)... Normal [facility] Comment on above: Result Comment: Elec tronically Signed By: Bakari Husain Jr, DO\.br\Date and Time Signed: 05/13/20 13:20 EST Coding Summary.on 05-12-2020 Coding Summary. CODING DATE: 05/12/2020 FINAL [facility] STATUS: Home (Routine DC) PAYOR: Reba ADMIT [...] Jaquez CphT Date Saved: 05/12/2020 09:53 pm [facility] Consent for Anesthesiaon Consent for Anesthesia [id number]# 1.00CD:127 [facility] [facility] Discharge Instructionson Discharge Instructions [id number]# 1.00CD:127 [facility] IntraOperative Documentson 1 07-11-2019 IntraOperative Documents [id number]# 1.00CD:127 [facility] Operative Reporton 0 Operative Report Date of Surgery: 05/10/2020 SURGEON: Aiden Izquierdo MD, FACS SHOP CLERK: Ramandeep Araujo MD, FACS PREOPERATIVE DIAGNOSIS: Chronic [...] Aiden Izquierdo MD, FACS lkr Dictated: 05/10/2020 #[id number] Typed: 05/10/2020 #[id number] cc: Alon Weber M.D. Aiden Izquierdo MD, FACS [facility] Comment on above: Result Comment: Elec tronically Signed By: Aiden IZQUIERDO MD\.br\Date and Time Signed: 05/11/20 08:04 EST Preoperative Documentson Preoperative Documents [id number]# 1.00CD:127 [facility] Preoperative Documents [id number]# 1.00CD:127 [facility] Consent for Treatmenton 04-24 Consent for Treatment [id number]#1 .00CD:127 [facility] Inpatient Patient Summaryon 05-10-2020 Inpatient Patient Summary [address] [address] [facility] Clinical Discharge Instructions PERSON INFORMATION Name: RA[facility]IV [facility]OVAR [facility][id number] PHYSICIANS Admitting Physician: Aiden IZQUIERDO MD Attending Physician: Aiden IZQUIERDO MD PCP: Alon Weber MD Discharge Diagnosis: Chronic cholecystitis with calculus Comment: PATIENT EDUCATION INFORMATION Instructions: Post Op Patient Instructions - FT (CUSTOM); How to Use an Incentive Spirometer; Timbo - Post Op Instructions (CUSTOM) Medication Leaflets: Follow up: With: Address: When: Aiden IZQUIERDO [address], [address] [place] [address] Business (1) Within 7 to 10 days Comments: Call for any problems. Call for followup appointment Type Location Start [facility] Follow Up [facility] 05/16/2020 1:00 PM 05/16/2020 1:15 PM Confirmed MEDICATION LIST Medications to Continue with No Changes Other Medications desvenlafaxine (desvenlafaxine 100 mg Tab-) 1 Tablets By Mouth every day. omeprazole (omeprazole 40 mg Cap-DR) 1 Capsules By Mouth every day. Refills: 2. ondansetron (Zofran ODT 4 mg Tab) 1 Tablets By Mouth 3 times a day. Refills: 0. Comment: Normal [facility] IntraOperative Documentson 07-10-2019 IntraOperative Documents [id number]# 1.00CD:127 [facility] Main OR PACU I Recordon 04-24 Main OR PACU I Record PACU Phase I Document Type FT Summary Primary Physician: Aiden IZQUIERDO MD Finalized Date/Time: 05/10/20 11:13:04 Pt. Name: RAJIV TOVAR/Sex: 1995 Female Med Rec #: [id number] Physician: Aiden IZQUIERDO MD Financial #: [id number] Pt. Type: A Room/Bed: Admit/Disch: 05/10/20 07:43:57 [...] By: Belkys Yarbrough RN 05/10/20 11:13 Normal [facility] Main OR PACU II Recordon Main OR PACU II Record PACU Phase II Document Type FT Summary Primary Physician: Aiden IZQUIERDO MD Finalized Date/Time: 05/10/20 15:45:07 Pt. Name: RAJIV TOVAR/Sex: 1995 Female Med Rec #: [id number] Physician: Aiden IZQUIERDO MD Financial #: [id number] Pt. Type: A Room/Bed: [facility]/ Admit/Disch: 05/10/20 07:43:57 - Institution: Case Times [...] Signed By: Marcelina Cadet RN 05/10/20 15:45 [facility] Main OR Preoperative Recordo n 05-10-2020 Main OR Preoperative Record PreOp Document Type FT Summary Primary Physician: Aiden IZQUIERDO MD Finalized Date/Time: 05/10/20 10:00:50 Pt. Name: RAJIV TOVAR /Sex: 1995 Female Med Rec #: [id number] Physician: Aiden IZQUIERDO MD Financial #: [id number] Pt. Type: A Room/Bed: [facility] Admit/Disch: 05/10/20 07:43:57 - Institution: Case Times [...] By: My Callahan RN 05/10/20 10:00 Normal [facility] Monitor Recordon 05-10-2020 Monitor Record [id number]# 1.00CD:127 Normal [facility] Outpatient Surgery Discharge Instructionon 05-10-2020 Outpatient Surgery Discharge Instruction [place] [address] Patient Discharge Instructions PERSON INFORMATION Name: RAJIV TOVAR Date of : 1995 Current Date: 05/10/2020 10:41:36 PHYSICIANS Admitting Physician: Aiden IZQUIERDO MD Discharge Diagnosis: Chronic cholecystitis with calculus RAJIV TOVAR has been given the following [...] THE NEAREST EMERGENCY ROOM OR CALL 911 IAKHIL TAYLOR, have received the attached patient education materials/instruction s and have verbalized understanding: May we do a follow up call? Yes No I was present when discharge instructions were given Patient Signature Date Clinican/Nurse Signature Date Follow up: With: Address: When: Aiden Tilley [facility], [address] [place] [address] [facility] () Within 7 to 10 days Comments: Call for any problems. Call for followup appointment Type Location [facility] Follow Up [facility] 05/16/2020 1:00 PM 05/16/2020 1:15 PM Confirmed Pharmacy Information: Thank you for choosing [facility] HERE ARE THE MEDICATION CHANGES [...] possible. ? If the spirometer includes a swimming coach or instructor indicator, use this to guide you in [...] from co (more content not included)... Normal [facility] Patient Education - Texton 1 07-10-2019 [...] possible. ? If the spirometer includes a swimming coach or instructor indicator, use this to guide you in [...] 10/21/2007 Document Revised: 07/03/2018 Document Reviewed: 04/23/2018 [employer] Patient Education ? 2019 [place]. [place], [place] Aiden Izquierdo MD, FACS POST OPERATIVE [...] or r (more content not included)... Normal [facility] Progress Note-Physicianon Progress Note-Physician Patient: RAJIV TOVAR Age: 25 years Sex: Female : 1995 Associated Diagnoses: None Author: Aiden IZQUIERDO MD Postoperative Information Date/ Time: 05/10/2020 10:26:00 Preoperative Diagnosis: Chronic cholecystitis with calculus (NSL54-RY K80.10, Working, Medical). Postoperative Diagnosis: Same pending pathology. Procedure: Laparoscopic Cholecystectomy with intraoperative chloangiogram. Performed by: Aiden Izquierdo MD. Credit Control Manager: Ramandeep Araujo MD. Specimens Removed: Gallbladder. Estimated Blood Loss: 5 ml. Complications: None. Normal [facility] Comment on above: Result Comment: Elec tronically Signed By: Aiden IZQUIERDO MD\.br\Date and Time Signed: 05/10/20 10:27 EST Progress Note-Physician Patient: RAJIV TOVAR Age: 25 years Sex: Female : 1995 Associated Diagnoses: None Author: Aiden IZQUIERDO MD Basic Information No change in History and Physical Normal [facility] Comment on above: Result Comment: Elec [...] ALSO POSSIBLE. CLINICAL HISTORY: Cholelithiasis. COMMENT: Limited knbqe-gm-hdpg C-arm images were obtained in the OR, [...] Dose: Evaserenity in mGy = 3.4 Normal [facility] Coding Summary.on 05-08-2020 Coding Summary. CODING DATE: 05/07/2020 FINAL [facility] STATUS: Home (Routine DC) PAYOR: [place] ADMIT DX: REASON FOR VISIT DX: Z01.812 [...] result in slightly different terminology. Coded By: Lnida Jaquez CphT Date Saved: 05/07/2020 10:24 pm [facility] Coding Summary.on 05-05-2020 Coding Summary. CODING DATE: 05/05/2020 FINAL [facility] STATUS: Home (Routine DC) PAYOR: Reba APC DESCRIPTION 5301 Level 1 Upper GI Procedures ADMIT DX: REASON FOR VISIT DX: R10.13 Epigastric pain FINAL DX: PRINCIPAL: R10.13 Epigastric pain SECONDARY: R10.11 Right upper quadrant pain F41.9 Anxiety disorder, unspecified PYMT PROC APC STAT DESCRIPTION DOCTOR NAME DATE [id number] Ezequiel WEST MD 04/29/2020 phagogastroduodenosco py, flexible, transoral; with biopsy, single or multiple 73243 Anesthesia for upper Husain Bakari Berry DO [...] Mae Revised Date Saved: 05/05/2020 11:48 am [facility] Consent for Procedure/Surger yon 05-05-2020 Consent for Procedure/Surgery [id number]#1 .00CD:127 [facility] Formson 05-05-2020 Forms [id number]#1 .00CD:127 [facility] Priority Order-Mitchell 2019 Priority Order-STAT Comment Invalid Interpretation Code [facility] Comment on above: Result Comment: Rece ived Performed at: [facility] [address] [facility] [place], [place] [id number] [facility] Johanny Lozano Performed By: #### 2 [id number], SARS-CoV-2, MARY #### [facility] [address] [place] [address] SARS-CoV-2, NAAon 05-05-2020 SARS-CoV-2 (COVID-19) RNA MARY+probe Ql (Resp) Not detected Invalid Interpretation Code Not Detected [facility] Comment on above: Result Comment: This nucleic acid amplification test was developed and its performance characteristics determined by [facility]. Nucleic acid amplification tests include PCR and [...] detected) result in this assay. Performed at: [facility] [place] [address] [employer] [facility], [place] [id number] MD Indira Washington Performed By: #### 2 [id number], SARS-CoV-2, MARY #### [facility] [address] [place] [address] B hCG Qualon 05-04-2020 Beta hCG Ql Negative Normal [facility] Comment on above: Performed By: #### 2 [id number] #### [facility] [address] [place] [address] CBC w/Indiceson 05-04-2020 Erythrocyte distribution width (RBC) [Ratio] 13.1 % Normal 10.9-14.2 [facility] Comment on above: Performed By: #### 2 970269, 1687475 ####[address] [address] Hematocrit (Bld) [Volume fraction] 40.5 % Normal 34.0-46.0 [facility] Comment on above: Performed By: #### 2 116183, 7405141 ####[address] [address] Hemoglobin (Bld) [Mass/Vol] 14.0 g/dL Normal 12.0-16.0 [facility] Comment on above: Performed By: #### 2 984053, 6833228 ####[address] [address] MCH (RBC) [Entitic mass] 31.0 pg Normal 27.0-34.0 [facility] Comment on above: Performed By: #### 2 755705, 3086810 ####[address] [address] MCHC (RBC) [Mass/Vol] 34.6 g/dL Normal 31.4-36.0 [facility] Comment on above: Performed By: #### 2 655331, 9256529 ####[address] [address] MCV (RBC) [Entitic vol] 89.7 fL Normal 80.0-100.0 [facility] Comment on above: Performed By: #### 2 824225, 0066492 ####[address] [address] Platelet mean volume (Bld) [Entitic vol] 9.1 fL Normal 6.4-10.8 [facility] Comment on above: Performed By: #### 2 180615, 7028566 ####[address] [address] Platelets (Bld) [#/Vol] 245.0 E9/L Normal 150.0-500.0 [facility] Comment on above: Performed By: #### 2 799054, 8695640 ####[facility] [address] [place] [address] RBC (Bld) [#/Vol] 4.5 E12/L Normal 4.3-5.9 [facility] Comment on above: Performed By: #### 2 208469, 2043516 ####[place] [address] [place] [address] WBC corrected for nucl RBC Auto (Bld) [#/Vol] 5.6 E9/L Normal 4.0-11.0 [facility] Comment on above: Performed By: #### 2 652697, 8987604 ####[address] [address] Consent for Treatmenton 04-24 Consent for Treatment [id number]#1 .00CD:127 Normal [facility] Hep Func Panelon 05-04-2020 Albumin [Mass/Vol] 4.2 g/dL Normal 3.3-5.0 [facility] Comment on above: Order Comment: if no t already done. Performed By: #### 2 404577, 8470052 ####[address] [address] Albumin/Globulin (S) [Mass conc ratio] 1.4 Normal 1.1-2.2 [facility] Comment on above: Order Comment: if no t already done. Performed By: #### 2 244906, 2677377 ####[address] [address] ALP [Catalytic activity/Vol] 112 Int._Unit/L High 21-98 [facility] Comment on above: Order Comment: if no t already done. Performed By: #### 2 859668, 1572413 ####[place] [address] [place] [address] ALT No additional P-5'-P [Catalytic activity/Vol] 129 Int._Unit/L High 6-46 [facility] Comment on above: Order Comment: if no t already done. Performed By: #### 2 164893, 3284189 ####[facility] [address] [place] [address] AST [Catalytic activity/Vol] 28 Int._Unit/L Normal 5-43 [facility] Comment on above: Order Comment: if no t already done. Performed By: #### 2 939428, 3998497 ####[facility] [address] [place] [address] Bilirubin [Mass/Vol] 0.7 mg/dL Normal 0.0-1.1 [facility] Comment on above: Order Comment: if no t already done. Performed By: #### 2 657197, 2121292 ####[place] [address] Bilirubin.direct [Mass/Vol] 0.1 mg/dL Normal 0.1-0.4 [facility] Comment on above: Order Comment: if no t already done. Performed By: #### 2 599876, 7251220 ####[place] [address] Bilirubin.indirect [Mass or moles/Vol] 0.6 mg/dL Normal 0.1-0.9 [facility] Comment on above: Order Comment: if no t already done. Performed By: #### 2 792506, 4871611 ####[address] [address] Globulin (S) [Mass/Vol] 3.1 g/dL Normal 1.4-4.0 [facility] Comment on above: Order Comment: if no t already done. Performed By: #### 2 997707, 4819502 ####[facility] [address] [place] [address] Protein [Mass/Vol] 7.3 g/dL Normal 6.0-7.8 [facility] Comment on above: Order Comment: if no t already done. Performed By: #### 2 656662, 7374265 ####[facility] [address] [place] [address] Ambulatory Clinical Summaryo n 05-03-2020 Ambulatory Clinical Summary {[id number] -[id number] -4c-b4}CD:[id number] [facility] Consent for Procedure/Surger yon 05-03-2020 Consent for Procedure/Surgery [id number]#1 .00CD:127 [facility] Consent for Procedure/Surgery [id number]#1 .00CD:127 [facility] Formson 05-03-2020 Forms [id number]#1 .00CD:127 [facility] Forms [id number]#1 .00CD:127 [facility] Physician Orderon 05-03-2020 Physician Order [id number]#1 .00CD:127 [facility] Physician Referralon 020 Physician Referral [id number]#1 .00CD:127 [facility] Postoperative Documentson Postoperative Documents [id number]# 1.00CD:127 [facility] Progress Note-Physicianon Progress Note-Physician Patient: RAJIV [...] # 10 tab(s), Refills(s) 0, Pharmacy: [facility]/pharmacy #[id number], 168, cm, 04/19/20 6:20:00 EDT, Height/Length Dosing, 58.5, kg, 04/19/20 6:20:00 EDT, Weight Dosing omeprazole 40 mg Cap-DR: 40 mg = 1 cap(s), Oral, Daily, # 30 cap(s), Refills(s) 2, Pharmacy: [facility]/pharmacy #[id number], 168, cm, 04/20/20 10:06:00 EDT, Height/Length [...] RN Substance Abuse 04/19/2020 Use: Current Comment: Denolegario - 04/19/2020 06:50 - Christiana Cuevas RN Tobacco 04/19/2020 Tobacco Use: Never (less than 100 in l Type: Cigarettes 04/20/2020 Tobacco Use: Never (less than 100 in l . Physical Examination Airway: Mallampati classification: II (soft palate, fauces, uvula visible). Respiratory: Lungs are clear to auscultation. Cardiovascular: Regular rhythm. Neurologic: Alert, Oriented. Plan [place] [employer] Anesthesiologists (ASA) physical status classification: Class II. Anesthetic Preoperative Plan Anesthesia: General. . Anesthetic plan, risks, benefits, and alternatives discussed with the patient and/or family. Communication: face to face with (patient 5 minutes, Patient educated on smoking cesstation). Normal [facility] Comment on above: Result Comment: Elec [...] kg (APR 29:) Height 165 cm (APR 29) Documented vital signs Pain assessment: Pain Assessment [...] vomiting. Plan Transfer/ Discharge: Condition stable. Normal [facility] Comment on above: Result Comment: Elec tronically Signed By: Bakari Husain Jr, DO\.ilana\Date and Time Signed: 05/03/20 09:37 EST Consenton 05-02-2020 Consent [id number]#1 .00CD:127 Normal [facility] Discharge Instructionson Discharge Instructions [id number]#1 .00CD:127 Normal [facility] General Surgery Office/Clini c Noteon 05-02-2020 [...] Contact Information TIMBO POLK, Aiden Davila [address] [facility] [address] [place] [address]- Additional Instructions: F/U POST OP. [...] Family History Family history is negative Normal [facility] Comment on above: Result Comment: Elec tronically Signed By: Aiden IZQUIERDO MD\.br\Date and Time Signed: 05/02/20 15:39 EST\.br\Electronically Co-Signed By: Mildred Cook MA.br\Date and Time Co-Signed: 05/02/20 15:25 EST IntraOperative Documentson 1 07-02-2019 IntraOperative Documents [id number]#1 .00CD:127 Normal [facility] IntraOperative Documents [id number]#1 .00CD:127 Normal [facility] Main OR Intraoperative Recor don 05-02-2020 Main OR Intraoperative Record IntraOp Document Type FT Summary Primary Physician: Ezqeuiel MARTINEZ MD Finalized Date/Time: 05/02/20 08:23:39 Pt. Name: RAJIV TOVAR/Sex: 1995 Female Med Rec #: [id number] Physician: Ezequiel MARTINEZ MD Financial #: [id number] Pt. Type: O Room/Bed: / Admit/Disch: 04/29/20 10:12:58 - 04/29/20 23:59:59 Institution: Case Times FT Entry 1 Patient Times In Room 04/29/20 10:52:00 Out Room 04/29/20 11:04:00 Procedure Times Start 04/29/20 10:56:00 Stop 04/29/20 10:59:00 Anesthesia Times Start 04/29/20 10:52:00 Stop 04/29/20 11:04:00 Last Modified By: Russell Maloney RN 04/29/20 11:04:12 General Comments: 05/02/2020 Chart opened to review and send charges. F Dagmar [employer]IC. Case Attendance FT Entry 1 Entry 2 Entry 3 Case Attendee Rodrigue Berry DO, Bakari MARTINEZ MD, Ezequiel Maloney RN, Russell [place] Role Performed Anesthesiologist of Surgeon - Primary Administrative Resident - Primary Record Time In 04/29/20 10:52:00 04/29/20 10:52:00 04/29/20 10:52:00 Time Out 04/29/20 11:04:00 04/29/20 11:04:00 04/29/20 11:04:00 Procedure EGD(.) EGD(.) EGD(.) Comments Last Modified By: Haider TURNER, Russell Maloney RN, Russell Maloney RN, Russell [place] 04/29/20 11:04:13 04/29/20 11:04:13 04/29/20 11:04:13 Entry 4 Entry 5 Entry 6 Case Attendee Mere TURNER, Charlotte Roberts CST, Aria Role Performed Administrative Resident - Primary Scrub - Primary Staff - [...] Arm P (more content not included)... Normal [facility] Ezequiel Martinez M.D. [address] [place] [address] Re: RAJIV TOVAR Date of : 1995 [...] report following her procedure. Sincerely Aiden Kaplan [facility] Coding Summary.on 04-30-2020 Coding Summary. CODING DATE: 04/29/2020 FINAL [facility] STATUS: Home (Routine DC) PAYOR: [place] ADMIT DX: REASON FOR VISIT DX: Z01.812 [...] Jaquez CphT Date Saved: 04/29/2020 11:14 pm [facility] Consent for Treatmenton Consent for Treatment [id number]#1 .00CD:127 [facility] Endoscopic Procedure Report - Otheron 04-29-2020 Endoscopic [...] surgery for right upper quadrant pain/cholelithiasis Normal [facility] Comment on above: Result Comment: Elec tronically Signed By: Ezequiel MARTINEZ MD\.br\Date and Time Signed: 04/29/20 11:03 EST Other Comment: Lorri frazier Attachment - attachment storage system not supported [id number] Can be viewed in source systemMissing Attachment - attachment storage system not supported [id number] Can be viewed in source systemMissing Attachment - attachment storage system not supported [id number] Can be viewed in source systemMissing Attachment - attachment storage system not supported [id number] Can be viewed in source systemMissing Attachment - attachment storage system not supported [id number] Can be viewed in source system Inpatient Patient Summaryon 04-29-2020 Inpatient Patient Summary [address] [address] [facility] Clinical Discharge Instructions PERSON INFORMATION Name: RAJIV [facility]OVAR [facility][id number] PHYSICIANS Admitting Physician: Ezequiel MARTINEZ MD Attending Physician: Ezequiel MARTINEZ MD PCP: Alon Weber MD Discharge Diagnosis: Abdominal pain Comment: PATIENT EDUCATION INFORMATION Instructions: Medication Leaflets: Follow up: With: Address: When: Aiden Tilley [address], [address] [place] [address] Business (1) With: Address: When: Ezequiel [facility] [address] [place] [address] Within 2 weeks Type Location Start [facility] Follow Up [facility] 05/16/2020 1:00 PM 05/16/2020 1:15 PM Confirmed [...] times a day. Refills: 0. Comment: Normal [facility] Main OR PACU I Recordon Main OR PACU I Record PACU Phase I Document Type FT Summary Primary Physician: Ezequiel MARTINEZ MD Finalized Date/Time: 04/29/20 12:13:51 Pt. Name: RAJIV TOVAR/Sex: 1995 Female Med Rec #: [id number] Physician: Ezequiel MARTINEZ MD Financial #: [id number] Pt. Type: O Room/Bed: / Admit/Disch: 04/29/20 [...] By: Belkys Yarbrough RN 04/29/20 12:13 Normal [facility] Main OR Preoperative Recordo n 04-29-2020 Main OR Preoperative Record Holding Area Document Type FT Summary Primary Physician: zEequiel MARTINEZ MD Finalized Date/Time: 04/29/20 10:21:44 Pt. Name: RAJIV TOVAR/Sex: 1995 Female Med Rec #: [id number] Physician: Ezequiel MARTINEZ MD Financial #: [id number] Pt. Type: O Room/Bed: / Admit/Disch: 04/29/20 [...] No Patient states Yes Comment - Adult acrmel-friend postop adult Supervision supervision available Case Cancelled in No Holding Area see comments below for reason Last Modified By: Marielle Pineda RN 04/29/20 10:21:43 Finalized By: Marielle Pineda RN Document Signatures Signed By: Marielle Pineda RN 04/29/20 10:21 Normal [facility] Monitor Recordon 04-29-2020 Monitor Record [id number]# 1.00CD:127 Normal [facility] Outpatient Surgery Discharge Instructionon 04-29-2020 Outpatient Surgery Discharge Instruction [place] [id number] Patient Discharge Instructions PERSON INFORMATION Name: RAJIV TOVAR Date of : 1995 Current Date: 04/29/2020 11:04:47 PHYSICIANS Admitting Physician: Ezeqiuel MARTINEZ MD Discharge Diagnosis: Abdominal pain RAJIV [...] up: With: Address: When: Aiden IZQUIERDO [address], [address] [place] [address] Business (1) With: Address: When: [facility] [address], [place] [address] Within 2 weeks Type Location Start [facility] Follow Up [facility] 05/16/2020 1:00 PM 05/16/2020 1:15 PM Confirmed Pharmacy Information: Thank you for choosing [facility] HERE ARE THE MEDICATION CHANGES [...] Refills: 0. PATIENT EDUCATION INFORMATION Instructions: Normal [facility] Patient Education - Texton 1 06-29-2019 Patient Education - Text Normal [facility] Priority Order-Mitchell 2019 Priority Order-STAT Comment Invalid Interpretation Code [facility] Comment on above: Result Comment: Rece ived Performed at: [facility] [address] [place], [place] [id number] MD Indira Washington Performed By: #### 2 [id number], SARS-CoV-2, MARY #### [facility] [address] [place] [address] SARS-CoV-2, NAAon 04-23-2020 SARS-CoV-2 (COVID-19) RNA MARY+probe Ql (Resp) Not detected Invalid Interpretation Code Not Detected [facility] Comment on above: Result Comment: This nucleic acid amplification test was developed and its performance characteristics determined by [facility]. Nucleic acid amplification tests include PCR and [...] detected) result in this assay. Performed at: [facility] [address] [place], [place] [id number] MD Indira Washington Performed By: #### 2 [id number], SARS-CoV-2, MARY #### [facility] [address] [place] [address] Ambulatory Clinical Summaryo n 04-20-2020 Ambulatory Clinical Summary {[id number] Normal [facility] Coding Summary.on 04-20-2020 Coding Summary. CODING DATE: 04/20/2020 FINAL [facility] STATUS: Home (Routine DC) PAYOR: Reba APC [...] Revised Date Saved: 04/20/2020 07:55 am Normal [facility] Consent for Procedure/Surger yon 04-20-2020 Consent for Procedure/Surgery [id number] .00CD:127 Normal [facility] Gastroenterology Office/Clin ic Noteon 04-20-2020 Gastroenterology Office/Clinic Note Chief Complaint f/u to ER RUQ HPI Staff This is a 24 year old female who presents today for a follow up for an ED visit for RUQ pain. History of Present Illness 24 years old white female with no significant past medical history except for anxiety, referred to me from [facility] ER to be evaluated for right upper quadrant abdominal pain, she reports right upper quadrant abdominal pain, started 6 weeks ago, sporadic, moderate in nature except for the last time when it was severe for which she went to [facility] ER, she had normal CBC, CMP and [...] Daily, # 30 cap(s), Refills(s) 2, [id number], cm, 04/20/20 10:06:00 EDT, Height/Length Dosing, 59.5, kg, 04/20/20 10:06:00 EDT, Weight Dosing EGD Endoscopy (Hospital Procedure) 2. Anxiety (F41.9: Anxiety disorder, unspecified) 3. Nausea (R11.0: Nausea) Ordered: omeprazole, 40 mg = 1 cap(s), Oral, Daily, # 30 cap(s), Refills(s) 2, [id number] 168, cm, 04/20/20 10:06:00 EDT, Height/Length Dosing, 59.5, kg, 04/20/20 10:06:00 EDT, Weight Dosing EGD Endoscopy (Hospital Procedure) Follow-up With When Contact Information Ezequiel MARTINEZ MD Within 2 weeks [facility] [address] [place] [address]- Additional Instructions: Patient Education Abdominal Pain Abdominal [...] Family History Family history is negative Normal [facility] Comment on above: Result Comment: Elec [...] directed by your caregiver. ? Only take hppu-khg-pblxdur or prescription medicines for pain, discomfort, or [...] 03/20/2006 Document Revised: 09/01/2012 Document Reviewed: 01/26/2009 [facility] Patient Information ?2013 [place] [facility]. Family Medicine Abdominal Pain Abdominal pain can [...] directed by your caregiver. ? Only take zact-nee-ercshtt or prescription medicines for pain, discomfort, or [...] Document Reviewed: 01/26/2009 ExitCare? Patient Information ?2013 [employer]. Normal [facility] Physician Orderon 04-20-2020 Physician Order [id number]# 1.00CD:127 Normal [facility] Physician Order [id number]#1. 00CD:127 Normal [facility] Auto Diffon 04-19-2020 Basophils/100 WBC (Bld) 0.6 % Normal 0.0-2.0 [facility] Comment on above: Order Comment: Order Added by Discern Expert. Performed By: #### 2 [id number] #### [facility] [address] [place] [address] Basophils/Leukocytes Auto (Bld) [Pure # fraction] 0.0 E9/L Normal 0.0-0.2 [facility] Comment on above: Order Comment: Order Added by Discern Expert. Performed By: #### 2 [id number] #### [facility] [address] [place] [address] Eosinophils/100 WBC (Bld) 0.2 % Normal 0.0-8.0 [facility] Comment on above: Order Comment: Order Added by Discern Expert. Performed By: #### 2 [id number] #### [facility] [address] [place] [address] Eosinophils/Leukocyt es Auto (Bld) [Pure # fraction] 0.0 E9/L Normal 0.0-0.5 [facility] Comment on above: Order Comment: Order Added by Discern Expert. Performed By: #### 2 [id number] #### [facility] [address] [place] [address] Lymphocytes/100 WBC (Bld) 34.4 % Normal 14.0-50.0 [facility] Comment on above: Order Comment: Order Added by Discern Expert. Performed By: #### 2 [id number] #### [facility] [address] [place] [address] Lymphocytes/Leukocyt es Auto (Bld) [Pure # fraction] 2.5 E9/L Normal 1.0-4.0 [facility] Comment on above: Order Comment: Order Added by Discern Expert. Performed By: #### 2 [id number] #### [facility] [address] [place] [address] Monocytes/100 WBC (Bld) 6.1 % Normal 4.0-14.0 [facility] Comment on above: Order Comment: Order Added by Discern Expert. Performed By: #### 2 [id number] #### [facility] [address] [place] [address] Monocytes/Leukocytes Auto (Bld) [Pure # fraction] 0.4 E9/L Normal 0.2-1.0 [facility] Comment on above: Order Comment: Order Added by Discern Expert. Performed By: #### 2 [id number] #### [facility] [address] [place] [address] Neutrophils/100 WBC (Bld) 58.7 % Normal 36.0-75.0 [facility] Comment on above: Order Comment: Order Added by Discern Expert. Performed By: #### 2 [id number] #### [facility] [address] [place] [address] Neutrophils/Leukocyt es Auto (Bld) [Pure # fraction] 4.2 E9/L Normal 2.0-7.5 [facility] Comment on above: Order Comment: Order Added by Discern Expert. Performed By: #### 2 [id number] #### [facility] [address] [place] [address] BMPon 04-19-2020 Creatinine [Mass/Vol] 0.8 mg/dL Normal 0.5-1.3 [facility] Comment on above: Performed By: #### 2 [id number] #### [facility] [address] [place] [address] Urea nitrogen [Mass/Vol] 12 mg/dL Normal 5-21 [facility] Comment on above: Performed By: #### 2 [id number] #### [facility] [address] [place] [address] Urea nitrogen/Creatinine [Mass ratio] 15 No Units Normal -20 [facility] Comment on above: Performed By: #### 2 [id number] #### [facility] [address] [place] [address] Anion gap [Moles/Vol] 11 mmol/L Normal 6-16 [facility] Comment on above: Performed By: #### 2 [id number] #### [facility] [address] [place] [address] Calcium [Mass/Vol] 9.7 mg/dL Normal 8.9-11.1 [facility] Comment on above: Performed By: #### 2 [id number] #### [facility] [address] [place] [address] Chloride [Moles/Vol] 103 mmol/L Normal 101-111 [facility] Comment on above: Performed By: #### 2 [id number] #### [facility] [address] [place] [address] CO2 [Moles/Vol] 27 mmol/L Normal 21-31 [facility] Comment on above: Performed By: #### 2 [id number] #### [facility] [address] [place] [address] Glucose [Mass/Vol] 97 mg/dL Normal 55-199 [facility] Comment on above: Result Comment: If t his glucose result represents a fasting glucose, interpretation should refer to the following reference range: 55-99 mg/dL Performed By: #### 2 [id number] #### [facility] [address] [place] [address] Potassium [Moles/Vol] 3.5 mmol/L Normal 3.5-5.3 [facility] Comment on above: Performed By: #### 2 [id number] #### [facility] [address] [place] [address] Sodium [Moles/Vol] 137 mmol/L Normal 135-145 [facility] Comment on above: Performed By: #### 2 [id number] #### [facility] [address] [place] [address] CBC w/ Auto Diffon Erythrocyte distribution width (RBC) [Ratio] 13.3 % Normal 10.9-14.2 [facility] Comment on above: Performed By: #### 2 [id number] #### [facility] [address] [place] [address] Hematocrit (Bld) [Volume fraction] 37.6 % Normal 34.0-46.0 [facility] Comment on above: Performed By: #### 2 [id number] #### [facility] [address] [place] [address] Hemoglobin (Bld) [Mass/Vol] 13.4 g/dL Normal 12.0-16.0 [facility] Comment on above: Performed By: #### 2 [id number] #### [facility] [address] [place] [address] MCH (RBC) [Entitic mass] 31.9 pg Normal 27.0-34.0 [facility] Comment on above: Performed By: #### 2 [id number] #### [facility] [address] [place] [address] MCHC (RBC) [Mass/Vol] 35.7 g/dL Normal 31.4-36.0 [facility] Comment on above: Performed By: #### 2 [id number] #### [facility] [address] [place] [address] MCV (RBC) [Entitic vol] 89.2 fL Normal 80.0-100.0 [facility] Comment on above: Performed By: #### 2 [id number] #### [facility] [address] [place] [address] Platelet mean volume (Bld) [Entitic vol] 9.4 fL Normal 6.4-10.8 [facility] Comment on above: Performed By: #### 2 [id number] #### [facility] [address] [place] [address] Platelets (Bld) [#/Vol] 219.0 E9/L Normal 150.0-500.0 [facility] Comment on above: Performed By: #### 2 [id number] #### [facility] [address] [place] [address] RBC (Bld) [#/Vol] 4.2 E12/L Low 4.3-5.9 [facility] Comment on above: Performed By: #### 2 [id number] #### [facility] [address] [place] [address] WBC corrected for nucl RBC Auto (Bld) [#/Vol] 7.2 E9/L Normal 4.0-11.0 [facility] Comment on above: Performed By: #### 2 [id number] #### [facility] [address] [place] [address] Consent for Treatmenton 03-25 Consent for Treatment [id number] .00CD:127 Normal [facility] Discharge Instructionson Discharge Instructions [id number]# 1.00CD:127 Normal [facility] ED Clinical Summaryon 2019 ED Clinical Summary [address] [address] ED Clinical Summary Person Information Name: RAJIV TOVAR/[facility] Age: 24 Years : 1995 Sex: Female Language: Indonesian PCP: Alon Weber MD Marital Status: Single [...] 08:58:55 04/19/2020 08:58:55 04/19/2020 08:58:55 ADDRESS: [address] [facility] [id number] PHYS DOC NOTES: Addendum by Laureano Phillip DO on April 19, 2020 08:26:02 EDT MEDICAL INFORMATION: Prescriptions Given: New Medications [id number], [address] [place], [place] [id number], [phone] dicyclomine (dicyclomine 20 mg Tab) 1 Tablets By Mouth 3 times a day for 7 Days. Refills: 0. ondansetron (Zofran ODT 4 mg Tab) 1 Tablets By Mouth 3 times a day. Refills: 0. PATIENT EDUCATION INFORMATION: Instructions: Cholelithiasis Follow up: With: Address: When: [facility], [address] [place] [address] Business (1) In 3 days 04/22/2020 DIAGNOSIS: 1:Abdominal pain; Biliary colic; Gall stone; Nausea Normal [facility] ED Note-Nursingon 04-19-2020 ED Note-Nursing Report received from Zacarias Cuevas RN. Patient resting on cart. Updated on plan of care. Denies any needs at this time. Call light in reach. Normal [facility] ED Note-Physicianon 04-19-20 20 ED Note-Physician Basic Information Time Seen: Susana Belcher M.D. 04/19/2020 06:17 Chief Complaint Arrives for c/o [...] Diagnosis: Abdominal pain, cholelithiasis, biliary colic Normal [facility] Comment on above: Result Comment: Elec tronically Signed By: Laureano Phillip DO\.br\Date and Time Signed: 04/19/20 08:26 EDT ED [...] medicine. HOME CARE INSTRUCTIONS ? Only take zkti-ajf-seywyby or prescription medicines for pain, discomfort, or [...] Document Reviewed: 12/02/2013 ExitCare? Patient Information ?2014 [employer]. This information is not intended to replace advice given to you by your health care provider. Make sure you discuss any questions you have with your health care provider. Normal [facility] ED Patient Summaryon 020 ED Patient Summary [address] [address] Patient Discharge Instructions Person Information Name: RAJIV TOVAR Age: 24 Years Arrival Date: 04/19/2020 06:10:12 Discharge Diagnosis: 1:Abdominal pain; Biliary colic; Gall stone; Nausea Primary Care Physician: Alon Weber MD Provider Information Primary Provider: Susana Belcher M.D. Advanced Rn Acute:None The exam and treatment you received in the Emergency Department were for an urgent problem and are not intended as complete care. It is important that you follow up with a doctor, nurse practitioner, or physician?s assistant department manager for ongoing care. If your symptoms become worse or you do not improve as expected and you are unable to reach your usual health care provider, you should return to the Emergency Department. We are available 24 hours a day. RAJIV TOVAR has been given the following list of patient education materials, prescriptions and follow-up instructions: Follow-up Instructions: With: Address: When: [facility], [address] [place] [address] [place] [address] Business (1) In 3 days 04/22/2020 In the event that this physician does not participate in your insurance network, please consult with your insurance company to find a nearby participating provider. Patient Education Materials: Cholelithiasis A MESSAGE TO ALL PATIENTS REGARDING OPIOIDS PRESCRIPTION OPIOIDS: WHAT YOU NEED TO KNOW Prescription opioids can be used to help relieve jxslvhzy-tr-rbnrui pain and are often prescribed following a [...] be struggling with addiction, tell your health pet care attendant and ask for guidance or call [facility] National Helpline at 7-886-3 (more content not included)... Normal [facility] Hep Func Panelon 04-19-2020 Bilirubin.indirect [Mass or moles/Vol] UTC Abnormal 0.1-0.9 [facility] Comment on above: Result Comment: Resu lt verified by Discern Rule. Performed result UTC (Unable to Calculate) was sent as an Alpha code due the inability to calculate a valid numeric value. Performed By: #### 2 [id number] #### [facility] [address] [place] [address] Albumin [Mass/Vol] 4.3 g/dL Normal 3.3-5.0 [facility] Comment on above: Performed By: #### 2 [id number] #### [facility] [address] [place] [address] Albumin/Globulin (S) [Mass conc ratio] 1.5 Normal 1.1-2.2 [facility] Comment on above: Performed By: #### 2 [id number] #### [facility] [address] [place] [address] ALP [Catalytic activity/Vol] 77 Int._Unit/L Normal 21-98 [facility] Comment on above: Performed By: #### 2 [id number] #### [facility] [address] [place] [address] ALT No additional P-5'-P [Catalytic activity/Vol] 59 Int._Unit/L High 6-46 [facility] Comment on above: Performed By: #### 2 [id number] #### [facility] [address] [place] [address] AST [Catalytic activity/Vol] 36 Int._Unit/L Normal 5-43 [facility] Comment on above: Performed By: #### 2 [id number] #### [facility] [address] [place] [address] Bilirubin [Mass/Vol] 0.4 mg/dL Normal 0.0-1.1 [facility] Comment on above: Performed By: #### 2 [id number] #### [facility] [address] [place] [address] Bilirubin.direct [Mass/Vol] mg/dL Normal 0.1-0.4 [facility] Comment on above: Performed By: #### 2 [id number] #### [facility] [address] [place] [address] Globulin (S) [Mass/Vol] 2.8 g/dL Normal 1.4-4.0 [facility] Comment on above: Performed By: #### 2 [id number] #### [facility] [address] [place] [address] Protein [Mass/Vol] 7.1 g/dL Normal 6.0-7.8 [facility] Comment on above: Performed By: #### 2 [id number] #### [facility] [address] [place] [address] Lipase Levelon 04-19-2020 Lipase [Catalytic activity/Vol] 43 U/L Normal 13-58 [facility] Comment on above: Performed By: #### 2 [id number] #### [facility] [address] [place] [address] PT & PTTon 04-19-2020 aPTT Coag (PPP) [Time] 30.2 second(s) Normal 25.1-36.5 [facility] Comment on above: Result Comment: Hepa rin therapeutic range (represented by Anti-Factor Xa activity of 0.2 - 0.4 U/mL) corresponds to PTT of 56.6 - 109.0 sec. Performed By: #### 2 [id number] #### [facility] [address] [place] [address] INR Coag (PPP) [Relative time] 1.0 {INR} Invalid Interpretation Code [facility] Comment on above: Result Comment: INR results are specifically intended to assess patients stabilized on long-term Anticoagulation therapy suggested INR?s ?Less Intensive Anticoagulation? 2.0 ? 3.0 Conventional Range 3.0 ? 4.5 Performed By: #### 2 [id number] #### [facility] [address] [place] [address] PT Coag (PPP) [Time] 11.8 second(s) Normal 10.2-12.9 [facility] Comment on above: Performed By: #### 2 [id number] #### [facility] [address] [place] [address] Prescriptions/Work Noteson 1 Prescriptions/Work Notes [id number]# 1.00CD:127 Normal [facility] U BetaHcg Qualon 04-19-2020 HCG.beta subunit (U) [Moles/Vol] Negative Normal [facility] Comment on above: Performed By: #### 2 [id number] #### [facility] [address] [place] [address] UA With Cult Reflexon 2019 Bacteria LM Ql (Urine sed) TRACE Normal Trace [facility] Comment on above: Performed By: #### 2 [id number] #### [facility] [address] [place] [address] Bilirubin Ql (U) Negative Normal Negative [facility] Comment on above: Performed By: #### 2 [id number] #### [facility] [address] [place] [address] Clarity (U) CLEAR Normal Clear [facility] Comment on above: Performed By: #### 2 [id number] #### [facility] [address] [place] [address] Color (U) YELLOW Normal Yellow [facility] Comment on above: Performed By: #### 2 [id number] #### [facility] [address] [place] [address] Crystals LM Ql (Urine sed) Present Normal [facility] Comment on above: Performed By: #### 2 [id number] #### [facility] [address] [place] [address] Epithelial cells.squamous LM.HPF (Urine sed) [#/Area] 3-4 Normal 0-2 [facility] Comment on above: Performed By: #### 2 [id number] #### [facility] [address] [place] [address] Glucose Test strip (U) [Mass/Vol] Negative Normal Negative [facility] Comment on above: Performed By: #### 2 [id number] #### [facility] [address] [place] [address] Hemoglobin Ql (U) TRACE Abnormal Negative [facility] Comment on above: Performed By: #### 2 [id number] #### [facility] [address] [place] [address] Ketones (U) [Mass/Vol] Negative Normal Negative [facility] Comment on above: Performed By: #### 2 [id number] #### [facility] [address] [place] [address] [place].plasma/Lithi um.RBC (Bld) [Mass ratio] 0-3 Normal 0-3 [facility] Comment on above: Performed By: #### 2 [id number] #### [facility] [address] [place] [address] Nitrite Ql (U) Negative Normal Negative [facility] Comment on above: Performed By: #### 2 [id number] #### [facility] [address] [place] [address] pH (U) 6.5 [pH] Invalid Interpretation Code 5.0-9.0 [facility] Comment on above: Performed By: #### 2 [id number] #### [facility] [address] [place] [address] Protein (U) [Mass/Vol] Negative Normal Negative [facility] Comment on above: Performed By: #### 2 [id number] #### [facility] [address] [place] [address] Specific gravity (U) [Rel density] 1.025 Invalid Interpretation Code 1.005-1.030 [facility] Comment on above: Performed By: #### 2 [id number] #### [facility] [address] [place] [address] UA Spec Desc Clean Catch Normal [facility] Comment on above: Performed By: #### 2 [id number] #### [facility] [address] [place] [address] Urobilinogen Qn (U) 0.2 {Arnie'U}/dL Normal 0.0-1.0 [facility] Comment on above: Performed By: #### 2 [id number] #### [facility] [address] [place] [address] WBC Auto Ql (U) Negative Normal Negative [facility] Comment on above: Performed By: #### 2 [id number] #### [facility] [address] [place] [address] WBC LM.HPF (Urine sed) [#/Area] 0-5 Normal 0-5 [facility] Comment on above: Performed By: #### 2 [id number] #### [facility] [address] [place] [address] US Abdomen, Limitedon 2019 US Abdomen, Limited [...] Guo M.D. Transcribed by: OLGA Technologist: RENETTA Kaplan [facility] eGFRon 04-19-2020 GFR/1.73 sq M.predicted among blacks MDRD (S/P/Bld) [Vol rate/Area] mL/min/{1.73_m2} Normal >=59 [facility] Comment on above: Order Comment: Order added by Discern Expert. Result Comment: eGFR is race adjusted. AA=. Performed By: #### 2 [id number] #### [facility] [address] [place] [address] GFR/1.73 sq M.predicted among non-blacks MDRD (S/P/Bld) [Vol rate/Area] mL/min/{1.73_m2} Normal >=59 [facility] Comment on above: Order Comment: Order added by Discern Expert. Result Comment: Director Validation bib kidney disease could be indicated at eGFR's of less than 60 mL/min/1.73m2. Kidney failure is indicated at less than 15 mL/min/1.73m2. Performed By: #### 2 [id number] #### [facility] [address] [place] [address] Encounters Encounter Date Encounter Type Care Provider Facility Start: 11-25-2023 End: 11-25-2023 ambulatory Harley Maldonado MD Facility: [place] Start: 10-21-2023 End: 10-21-2023 ambulatory LEWIS SEWELL Not Available Start: 09-09-2023 End: 09-09-2023 ambulatory FLYNN BLAKE Not Available Start: 08-22-2023 End: 08-22-2023 ambulatory FLYNN BLAKE Not Available Start: 08-08-2023 Bambowesley ledesma MD Work Phone: [facility] Start: 08-08-2023 Bamboo flowsheet My ledesma MD Work Phone: [facility] [...] DERM [address] [place] [address] My Singh MD [address] [place] [address] [facility] Start: 08-22-2023 End: 08-22-2023 Patient encounter procedure 08/22/2023 11:50 AM EST Office Visit [facility] [address] [place] [address] Flynn Archibald, DO [address] [place], [place] [id number] [facility] Payers Date Payer Category Payer Unknown [id number] [id number] 1993 Unknown [id number] 2.16.84 0.1.794855.3.579.2.593 1993 Unknown [id number] 2.16.84 0.1.599790.3.579.2.593 1993 Unknown [id number] 2.16.84 0.1.491351.3.579.2.593 1993 Unknown [id number] 2.16.84 0.1.139536.3.579.2.593 1993 Unknown [id number] 2.16.84 0.1.146926.3.579.2.593 1993 Unknown [id number] 2.16.84 0.1.414980.3.579.2.1259 1993 Unknown [id number] 2.16.84 0.1.451135.3.579.2.1259 1993 Unknown [id number] 2.16.84 0.1.976176.3.579.2.1259 1993 Unknown [id number] 2.16.84 0.1.265039.3.579.2.1259 1993 Unknown [id number] 2.16. 840.1.505429.3.579.2.196 1959 Unknown [id number] Social History Date Type Detail Facility Tobacco smoking stat [facility] Tobacco smoking consumption unknown [facility] Start: 1995 Sex Assigned At Not on file [facility] Start: 08-08-2023 Gender identity Not on file [facility] Start: 08-08-2023 Tobacco smoking stat [facility] Never smoked tobacco [facility] Start: 08-08-2023 Tobacco use and exposure Smokeless t obacco non-user [facility] Start: 02-15-2024 History of Social function [facility] History of Present illness Narrative 08-08-2023 [...] year (follow up) documented in this encounter [facility] Consultation note 07-18-2021 Note Date & Type [...] to proceed. CC: Dr. Alon Weber [facility] Consultation note 07-18-2021 Note Date & Type [...] like to proceed. CC: Dr. Alon Weber [facility] Signed and Approved by: DR AKASH MARTINEZ . 07/25/2021 08:02:00 [facility] Clinical Note 02-28-2021 Note Date & Type Note Facility 02-28-2021 Note Infectious Disease COVID-19: How to Protect Yourself and Others Know how it spreads ? There is currently no vaccine to prevent coronavirus disease 2019 (COVID-19). ? The best way to prevent illness is to avoid being exposed to this virus. ? The virus is thought to spread mainly from gqxgdn-qf-eyubdp. ? Between people who are in close [...] are not readily available, use a hand supervisor blood that contains at least 60% alcohol. Cover [...] at higher risk of getting very sick.www.cdc.gov/coronavirus/2019-ncov/n ddn-qdpxq-dbdfxsuufet/gybeqp-ni-xykdeq-r isk.html Cover your mouth and nose with [...] available, clean your hands with a hand supervisor blood that contains at least 60% alcohol. Clean and disinfect ? Clean AND disinfect frequently touched surfaces daily. This includes tables, doorknobs, light switches, countertops, handles, desks, phones, keyboards, toilets, faucets, and sinks. www.cdc.gov/coronavirus/2019-ncov/preven z-xtyksek-hqee/zliatioltufc-rjdg-njnh.ht ml ? If surfaces are dirty, clean [...] Reviewed: 12/31/2019 [employer] Patient Education ? 2019 [employer] COVID-19 Frequently Asked Questions COVID-19 (coronavirus disease) is an infection that is caused by a large family of viruses. Some viruses cause illness in people and others cause illness in animals like camels, cats, and bats. In some cases, the viruses that cause illness in animals can spread to humans. Where did the coronavirus come from? In May 2019, [place] told the World Health Organization (WHO) of several cases of lung disease (human respiratory illness). These cases were linked to an open seafood and livestock market in the city of [facility]. The link to the seafood and livestock [...] naming World Health Organization (WHO): www.who.int/emergencies/diseases/novel-c oronavirus-2019/technical-guidance/joe mooref-apa-bpbfjivegbm (more content not included)... [facility] History and physical note 05-05-2020 Note Date & Type Note Facility 05-05-2020 Note [id number] #1.00CD:127 [facility] History and physical note 05-02-2020 Note Date & Type Note Facility 05-02-2020 Note [id number] #1.00CD:127 [facility] Evaluation note Note Date & Type [...] section and content) DATE CREATED AUTHOR 03/05/2021 [facility] DATE CREATED AUTHOR AUTHOR'S ORGANIZ ATION 04/10/2021 [facility] DATE CREATED AUTHOR AUTHOR'S ORGANIZ ATION 07/02/2022 [facility] DATE CREATED AUTHOR AUTHOR'S ORGANIZ ATION 10/21/2023 [facility] EPIC DATE CREATED AUTHOR AUTHOR'S ORGANIZ ATION 12/06/2023 [facility] Reason for Visit (unrecogniz ed section and [...] BE BASED ON THE PRIMARY CLINICAL RECORDS. [facility] [employer] [facility]. provides no warranty or guarantee of the accuracy or completeness of information in this document.
== END 2023-12-10 13:55 | disposition home or self-care (01) ==
LOC: MRI 13:54
PROVIDERS: PCP Family Medicine; Visit Provider Anesthesiology
DX: M54.16 Radiculopathy, lumbar region (principal)
CPT/HCPCS: 72148

== ENCOUNTER 2023-12-23 12:14 | Outpatient (OUT) | payer BC, SELFPAY ==
--- OUTSIDE RECORDS SUMMARY | 2023-12-23 12:20 | XMS_ITS | CCD ---
Author Organization [facility] CliniSyva Care Team Providers Care Academic Physician Name Role Phone MICHELLE, DR AKASH Murray [...] Unavailable MICHELLE, DR AKASH Murray Consulting Unavailable ROWELLMARILIN DO Consulting Unavailable MICHELLE, DR AKASH Murray Admitting [...] Facility (2 sources) HYDROcodone Drug Allergy 5 [facility] Repository (2 sources) oxyCODONE Drug Allergy 5 [facility] Repository (2 sources) Penicillins Drug allergy (disorder) 5 [facility] Repository (3 sources) Acetaminophen / HYDROcodone Drug Allergy 4 Unknown [facility] (3 sources) HYDROcodone Drug Allergy 4 Hives [facility] Work Phone: (3 sources) oxyCODONE Drug Allergy 4 [facility] (3 sources) Penicillin G Drug Allergy 4 [facility] (3 sources) Penicillin G sodium Allergy to substance 4 Rash [facility] (3 sources) Penicillins Drug Allergy 4 Hives [facility] (3 sources) Sulfamethoxazole / Trimethoprim Drug Allergy 4 Rash [facility] (3 sources) Sulfonamides (Antibiotic) Drug Allergy 4 [facility] Medications Current Medications Medication Drug Class(es) [...] 07-18-2021 Episodic Other aftercare (1 source) 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; Translations: [OTH HALF-WAY CURRENT DRUG THERAPY] Onset: 09-05-2021 Episodic Other upper respiratory infections (1 source) Acute upper respiratory infection, unspecified; Translations: [ACUTE UP RESPIRATORY INFECTION UNS] Onset: 09-05-2021 Episodic Unclassified (1 source) COUGH, UNSPECIFIED; Translations: [COUGH, UNSPECIFIED] Onset: 09-03-2021 Results Test Name Value Interpretation Reference Range Facility Covid-19 PCR ([facility])on 08-22 SARS-CoV-2 (COVID-19) RNA MARY+probe Ql (Unsp spec) Not detected Normal NOT DETECTED [facility] Comment on above: Result Comment: This test is not yet approved or cleared by the [place] FDA. When there are no FDA-approved or cleared tests available, and other criteria are met, FDA can make tests available under an emergency access mechanism called an Emergency Use Authorization (EUA). The EUA for this test is supported by the [place] of Health and Human Service's (HHS's) declaration [...] consistent with SARS-CoV-2. Performed By: #### C [facility] #### [facility] [address] [place] [address] Dr. Karlos Augustin GROUP A STREP CULTUREon 08-22 S. pyogenes Ag Ql (Unsp spec) Culture Observations: NEGATIVE FOR GROUP A STREPTOCOCCUS. Normal [facility] Comment on above: Performed By: #### S ДМИТРИЙ GRASTCX #### [facility] [address] [place] [address] Dr. Karlos Augustin INFLUENZA A AND B AGon 09-03 INFLUANEGH SEE BELOW Normal [facility] Comment on above: Result Comment: Nega tive for Flu A protein angiten. Infection due to Flu A cannot be ruled out. Flu A angiten in the sample may be below the detection limit of the test. Performed By: #### I NFLUAB #### [facility] [address] [place] [address] Dr. Karlos Augustin INFLUBNEGH SEE BELOW Normal [facility] Comment on above: Result Comment: Nega tive for Flu B protein antigen. Infection due to Flu B cannot be ruled out. Flu B antigen in the sample may be below the detection limit of the test. Performed By: #### I NFLUAB #### [facility] [address] [place] [address] Dr. Karlos Augustin INFLUENZA A AG Negative Normal NEGATIVE SEE COMMENT [facility] Comment on above: Performed By: #### I NFLUAB #### [facility] [address] [place] [address] Dr. Karlos Augustin INFLUENZA B AG Negative Normal NEGATIVE SEE COMMENT [facility] Comment on above: Performed By: #### I NFLUAB #### [facility] [address] [place] [address] Dr. Karlos Augustin INTERNAL CONTROLS Within Normal Limits Normal Wi thin Normal Limits [facility] Comment on above: Performed By: #### I NFLUAB #### [facility] [address] [place] [address] Dr. Karlos Augustin STREPT SCREENon 09-03-2021 STREP SCREEN A Negative Normal NEGATIVE [facility] Comment on above: Performed By: #### S ABIGAILN, GRASTCX #### [facility] [address] [place] [address] Dr. Karlos Augustin PREG HCG QUALon 08-01-2021 , QUAL Negative Normal NEGATIVE [facility] Comment on above: Performed By: #### P REG #### [facility] [address] [place], [place] [address] Dr. Karlos Augustin PREG HCG QUALon 07-04-2021 , QUAL Negative Normal NEGATIVE [facility] Comment on above: Performed By: #### P REG #### [facility] [address] [place] [address] ABDOMEN AND PELVIS W IV C [facility] 04-05-2021 CT ABDOMEN AND PELVIS W IV CONTRAST [facility] Department of Radiology [address] [place] [address] Patient Name: RAJIV TOVAR : 1995 Sex: F Age: Race: White Pt. Location: [facility] Patient Status: D Ordered Date: 03/21/2021 4:00:00 PM Completed Date: 04/05/2021 03:49 PM Requesting Provider: ДМИТРИЙ CALLAHAN Attending Provider: ДМИТРИЙ CALLAHAN Report Copy To: ALON WEBER Signs & Symptoms: R10.31 Right lower quadrant pain I10 History: [place] Is patient on meds for HTN or DM? 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 Per BS [employer] for CPT 52481 Ref#[id number] Med Nec-Passed *SLA Comments: Exam: CT ABDOMEN [...] Electronically signed: Noemy Stanley M.D.. Transcribed by: [email or web address], User Resident: Electronically Signed by: NOEMY STANLEY @ 04/07/2021 01:25 PM Normal [facility] CHEST 2 [facility] 03-21-2021 [facility] CHEST 2 [facility] Department of Radiology [address] [place] [address] Patient Name: RAJIV TOVAR : 1995 Sex: F Age: Race: White Pt. Location: [facility] Patient Status: D Ordered Date: 03/21/2021 2:25:00 PM Completed Date: 03/21/2021 02:22 PM Requesting Provider: ДМИТРИЙ CALLAHAN Attending Provider: Report Copy To: Signs & Symptoms: R07.81 Pleurodynia I10 History: [place] Comments: right ribs pain Exam: [facility] CHEST 2 [facility] CHEST 2 [facility] 03/21/2021 2:22 PM CLINICAL [...] disease Electronically signed: Cyril Olivo. Transcribed by: [email or web address], User Resident: Electronically Signed by: CYRIL OLIVO @ 03/22/2021 02:39 PM Normal [facility] Comment on above: Order Comment: right ribs pain Coding Summary.on 03-03-2021 Coding Summary. CD:[id number] G h0bWw+PGhlYWQ+JM9GZSJ hN96ulJPdyK5NO3xOOI4O DZFVCJWJOT7DQE6siDL3D ZnkP6QqawZl YawgqCNxPY93DQg4MOD5i HcxBPvhxP7tuPVmK8h1Pz LhOI26lV04ICsnTFQfPpY 3LjZpbjsgbWFy R3qjOyUxzVOiTzi+PHRhY mxlIHdpZHRoPScxMDAlJy QifGlvTG9dTb0uNOTtWLG vbGxhcHNlOiBj h6lfTYKoFLlmYA4gfXdwA 1RzjGJ6ZWBow5l7Sq91eJ I+UZPeGJX9dLdzAAalw89 2RkQas1ktFMT2 jMPhRCsmBFF7M54wx5I8E IVfYGCgWBB1fLB0bS7xpO gvldbzB6OyaZTgGdR4TEA 4sMKhxG5goOsn jzxtzC5lAeh+N86VQR3UF RQCQS1BRbj9Q6MnUatwaI I+UE11HYFvSR11wEKiyDA gj0piaYd4ZwOd DAXbIEX3nVrcVNruh4BsB FCpI93zlOCvq7C2TFNhdP wznIRtScRhxGQ6zZ7nVJx fmotov7lmrjst Miqsy8whll19vW03X29oC KygWMBeTJZ6WHWtALPnpG frxt5xtY5uAq0+DKvpi3g kg2mqrVz9SiVt GEBqfhBunVuiJWY2z0VpT r60J0RlwFypo8VeEna8ny 48nRJfa3F3yIT5DRfkYMU hsM1yUKjnQnA6 DORoNgBoqV85tIRuBWtuS p8exSkydChyWR1oQPUwob tqEDKqsD6aUNKiwNNnnOz xTI6gNUTupeno i094LdAqCGK2ITZrnEJfY 2NsmN3tMfQtCFMzUSWmL6 AeaPRsTEjzM273CByfSmT 3MTQpvdBgH4Yr STVpiSsdTmF1m9Y2Hx7Vl 1AtlvzqIDM3DZipCVM9Nr DiZcZeSvC9P3OmDko9TFH xrAsgPV2yX4Jh OECyjxdjrcadnZM3LFGbJ PCcyX04nCHuUAryUm1hz3 X8g773NXVfJNZgeU32Da1 udDogMTBwdCBU aF6fmwsqq6uyjiurHfTlJ JRzBXf3NUv0AHZqfUvtIi MhECX7NnU4IQA1fXQppC4 baQphlrijxZ6i Oyc+N64mnP1yZGN8PXY9h gpeKJCgppJiMX26SS18L2 RyPjwvdGFibGU+PGRpdiB qiQfqRG7sWcQj i2ofa0KwSXxgH1EjYPPoB TkgPdo1YCZxSQZ6qVE8fG 6sPUTwVCgwm4U8sKM2T7P bwkTgie0nu1fi IJYjEUopJ58icNHbp2A1H AZudSU5TJGfrIzaYjDkoL 93Oyc+TTSjgYciw5PwPtr nn0guu2ayaVz9 FdRfLRTbxjWwrBavEVA9x 6IePj52V20lPFvcZPQfFC FvNOXgNTGsnUlobk4eoZ0 wIi8+PGNvbCB3 jOJ0jL3bBBVoPyX7FXgdR 536MmWceYGeZpsbc6ejx1 dmzYg4MySdXBYbzyLxtVv nAYR1v6MnWs21 N22qTQdyWSGrLVNzLXSwM ELecHwodl6lnH0dFq4+PC 2sz7fute68dD36mYQ+PHR qUUR4gOlhRSdw VNMweD8fTFrjObJ7YQNxL dOykW00vBAxMFfuVq5dwA hqtBcmAU8tBOYtmglue31 1IxFwl1alJRKo nITlDYvpVLC5C70jd9R4G MMrTHJaRUM3zJO0eG8ejC lnbjogbGVmdDsgdmVydGl aEAzsNAulP719 IHRvcDsnPlBhdGllbnQgT kTwEKl9O7KhFsb5INNlrO prHO4sqVFsLRvgSd5yuUv olBnnIK3bTWKs vbrec529MhTek4onEKTju GCiWZlmQMD5W35gt9S8TV CqXBYpHVZ8kJS5mA1qbYi nbjogbGVmdDsg kiChwEogJVdzFEkuP603C HRvcDsnPkJpcnRoIERhdG E7NV02CV76bUGbs4V1mYT 9C6QrKMMxszvx wjrklJG6JMSaYVDwiR36B k5ygRnyWy0fYOEoRXB4YD YasJWjH6HanU0yEpPmWVK qOMVvQ7WysURg NYywV151GQmsTeS4JJVof mMnB1CpHEXleIjlTnN1u6 P1Hb8RJ7Z0XX70DE89qED mb1Y9zYS9A5Ah ZCMtvpbdnlcmnDY2ZJYoG PJnaN05Zs8ztSfcUe1hES PwXSD0OETnnBRtQ2IkeV9 yOiAjMDAwMDAw L0AcjMYgNUuiV596QJkfT vZ8LMRcrdTdT1UcLZMnoX doFaJ0y7E8Zb0KNTw3QW9 6ZH14kIVeo2A7 eID3C9ZxZEQmnmvqixelv VQ0PAMpPAFrhQ89Oa2nyG iwDx7xBTNzUIP2RCAdbSE oD1LtrS3mCvLd GEOtIVEpZ6FqkLSgHDnxF 814ROciPtA0OAWzdiWmG5 EyRJGcpOwlVdX7w6O3Lh5 KYLViLR07PAF9 cKL0EL99VR28T3MwPcpsz GFibGU+PHRhYmxlIHdpZH RoPScxMDAlJyBzdHlsZT0 lRd6vJSIoQETd oOzwdJKtDbPgs7lpIORgN RcpPD7aiGlbS1BrlGA6MB Rwo0c3Gz84G43pO4WnsWX +WDCaoTS1oQR4 hK9rBjQsGgC7KOwtI497E oNcrIOnVoptj2ocr3oqsM f3TiP6PBVknqSyxCvgIOL 5w0BfHb67X16w IHdpZHRoPSIxNSUiIHZhb Pcyur7naO9zQm1+PGNvbC N3yPT0vC7lBvFuVkF3PZq rE966RlMpnSOc Effuz6vtz3kmyXa6HiNaJ UFvduVggHxzLRX9a6IcQq 76V4QrgGgcv0MyMyu6mh6 9lPMdt7D1rGJ5 C6RjHAAtmbiodVGhgOgqC U2mROUoxsvhMPHaeK2oTI VeF8x2UdFvNwW5CHcwM8D dxuV4APTsjFCs WXscAQC7O93ln9L2OBTgC TXbPHK3jBM0wL0lpHvdmg ogbGVmdDsgdmVydGljYWw eJLciF805HJSl pUmbYIQboN3mAMCecEMut MieKI6dRPHmpkjtChUXZR VRFUVMNSyQL5Z4Z3WjKdw 3ZDWqvXvpPR6o pOPgTFqcOv1spFtstDfzA H6rCRFpszhrBYBatU5eRJ UunNNngByxQE1qTLHqrhk xu142XsEcBQI8 WLMcmEHlG6IuaU8uYxLcU TLnNRIrB9LdnCEmXZueB4 64YGfkPaX2JGKwtjBtK2R sLWFsaWduOiB0 s0I2Kk7pWV5vIy2eZFrkJ J39WM38cMIwk9D4fHN4V2 QwVGHxmotzsteubUP6HMM uZQOftD54zXTg QAtqCm2br4T9d640QWYiE VPavT69Rm0zdNspFFOfhE MJrD0lfrzca4asklurSkD hDUMoNBe5MEo9 WLWlgYfnMlTpIKN8QmI1P QQ4oFLwnP0bfZnesnvteX 9wOyc+PyrnBMBwgaV4D2A yOdy5XUJhrHdq KX1wtKEvILzdIe8hfKtvh EzgWY0uLARbkywoWWZszU 5gXAKmgLYhjPkeTE7eYYV xhoyet582ArFb GYR0AWAuqJPkO3WskW3bT iVvLVDiBSUzQ2QgbWMqAE fsS970EPkvFfR4KQKvuvW mC0RbONXjqHnb GjH5l0X5Yi6VJL7iwYZ7S 4TpNmm6FJKdcKclSP8jdR NcZIqjKk2adTbnlNnqBS8 wNTBpbjtwYWRk xD4wEBXttCMhyDrtJX2xT AAbsiwgb886JxZdJJG6SL XwrRYvF6KxsZ1fFcWqZGA rHEWsN0AozHNh GUyhP981ZZstNnZ3QUFip vFfV1UfCZKcoHqxTfB0t6 H0Ou5KhALdX9BxX1t0C5E kPjwvdHI+PC90 QGYwMK73lOTraXThm1xkq Yn5PcLrFOZmMFA3vTjzPW oqk9ObSGUjB01fqDUuj1D 6IGNvbGxhcHNl JcGlqAB0eF6eHIlaibzkp 1neudyzZmwyi7wwkq17iW 37V86tSGueNSZuXJSgELZ yKELkkEepfu8f sE2vFj1+ULCzsVP4zOD0j E0mJdXkZiB4DWdhW407Sd SruPBxCcabo3vlu3ugmCr 9IjIwJSIgdmFs fVojAUV3k6RiPm50Y13lZ HdpZHRoPSIyMCUiIHZhbG etzi1hnL9dGd1+QJ3sk1k rxc52iI06nOE+ SHKgYIC5zPsuZLfvTBUci T0zFKwlOdQ2YZTvTnYecZ 34wJLoAObwKz7abCwpmMp lYW7oYFFqomsd q589OiQyk1ouKEWlbFZxF DmpMFB1J44lp8X9BCKoXW UeHCE3eXC4yP9jfTsbdlh gbGVmdDsgdmVy vPveDYrjFHyxL751UTBot BjiUgSowGHbR6kipqWXPF 1lOjwvdGQ+KKRjJPO0bQr oKLfrASZwlK9x YRXlF7q8CuTgHqU4ZNulP 7JxefP4PJCdlAVkVEKhcF KGbX1tbmkhh4nvqvvtYkB lEBLxQIg9MWt2 DLQcwBhhBfDiOHN3QqH4Q WV3wIPquW8qqKjenllmbH 9wOyc+RklOOjwvdGQ+PHR dNTK4uJrzUZie MRCkjY4qUIJnC4z9SnIvZ qX9BLscW2BxmqG6MHSyaP IyPAIsaFZLgI2vekozb1i vcjogIzAwMDAw RWw6YOc5FFGnwXiwDnYgO EH7PdA1KYN1kDUvvZ1xxS bavhutnS4bAeb+TVJOOjw vdGQ+PHRkIHN0 qNzbOZbwUCDrdK7bPDXvB 7d5YqTzVnT3HEfwM2Bxrn O7RNXejGNvRKGmxREXeE6 wpyigx9rbqrqv KyDhFTPnMWe9XYi6AXKnj BihTrVpODY7TsI2DXQ2zA AaxB4leMfyoqhzyF9oDvi +BNB6FAR0HZ60 LL14U9JmUagvuPGewQA+P HRhYmxlIHdpZHRoPScxMD DrTjTncQarNS3yXu0bSBU yLWNvbGxhcHNl OiBj (more content not included)... Normal [facility] Auto Diffon 02-28-2021 Basophils/100 WBC (Bld) 0.4 % Normal 0.0-2.0 [facility] Comment on above: Order Comment: Order Added by Discern Expert. Performed By: #### 2 509379, 3471258, 85856142, 89994554, 23694519, 38594877, 7538804, 6909938, 7923291, 8956953 ####[facility] [address] [place] [address] Basophils/Leukocytes Auto (Bld) [Pure # fraction] 0.0 E9/L Normal 0.0-0.2 [facility] Comment on above: Order Comment: Order Added by Discern Expert. Performed By: #### 2 554682, 8459970, 87972588, 88900736, 04929311, 02058288, 5848616, 3964895, 1627918, 6054917 ####[address] [place] [address] Eosinophils/100 WBC (Bld) 0.6 % Normal 0.0-8.0 [facility] Comment on above: Order Comment: Order Added by Discern Expert. Performed By: #### 2 894793, 0809256, 99854008, 54126953, 37063647, 44856667, 0870072, 4809308, 4941244, 3908838 ####[address] [place] [address] Eosinophils/Leukocyt es Auto (Bld) [Pure # fraction] 0.0 E9/L Normal 0.0-0.5 [facility] Comment on above: Order Comment: Order Added by Discern Expert. Performed By: #### 2 761239, 8358924, 60180789, 51287420, 09165162, 27994653, 0494496, 6533520, 8258362, 4841909 ####[address] [place] [address] Lymphocytes/100 WBC (Bld) 7.9 % Low 14.0-50.0 [facility] Comment on above: Order Comment: Order Added by Discern Expert. Performed By: #### 2 216961, 1352454, 66893025, 34344414, 57735853, 55590925, 2753083, 6387299, 3289161, 6301920 ####[address] [place] [address] Lymphocytes/Leukocyt es Auto (Bld) [Pure # fraction] 0.4 E9/L Low 1.0-4.0 [facility] Comment on above: Order Comment: Order Added by Discern Expert. Performed By: #### 2 938527, 7877318, 62210390, 20610667, 43273571, 55028494, 7116378, 8537753, 5162065, 7067220 ####[facility] [address] [place] [address] Monocytes/100 WBC (Bld) 5.5 % Normal 4.0-14.0 [facility] Comment on above: Order Comment: Order Added by Discern Expert. Performed By: #### 2 917250, 3380339, 65156688, 11508913, 42212896, 08387113, 4685604, 7139904, 5037511, 4603174 ####[address] [address] Monocytes/Leukocytes Auto (Bld) [Pure # fraction] 0.3 E9/L Normal 0.2-1.0 [facility] Comment on above: Order Comment: Order Added by Yifan Expert. Performed By: #### 2 787124, 7253451, 40774578, 29616644, 19237543, 18374162, 0456829, 8866888, 1395970, 7241920 ####[address] [address] Neutrophils/100 WBC (Bld) 85.6 % High 36.0-75.0 [facility] Comment on above: Order Comment: Order Added by Discern Expert. Performed By: #### 2 830752, 0671275, 48345490, 16249730, 72165123, 29418781, 0544485, 6247871, 0995967, 9574078 ####[address] [place] [address] Neutrophils/Leukocyt es Auto (Bld) [Pure # fraction] 4.5 E9/L Normal 2.0-7.5 [facility] Comment on above: Order Comment: Order Added by Yifan Expert. Performed By: #### 2 427216, 3435195, 12645884, 33276366, 00598265, 84811278, 0378908, 4638317, 8319213, 1074054 ####[facility] [address] [place] [address] B hCG Qualon 02-28-2021 Beta hCG Ql Negative Normal [facility] Comment on above: Performed By: #### 2 431308, 6335063, 58071375, 13075162, 18086720, 83747515, 1694845, 7009430, 4376748, 7048651 ####[facility] [address] [place] [address] BMPon 02-28-2021 Creatinine [Mass/Vol] 0.7 mg/dL Normal 0.5-1.3 [facility] Comment on above: Performed By: #### 2 326090, 9625099, 74156355, 70850600, 15130910, 97334148, 9597042, 2057622, 7226425, 3074844 ####[facility] [address] [place] [address] Urea nitrogen [Mass/Vol] 9 mg/dL Normal 5-21 [facility] Comment on above: Performed By: #### 2 431734, 3929263, 67094736, 71723414, 69889075, 68486873, 0829042, 9456873, 5109625, 2583553 ####[facility] [address] [place] [address] Urea nitrogen/Creatinine [Mass ratio] 13 No Units Normal 10-20 [facility] Comment on above: Performed By: #### 2 185644, 2087322, 26226972, 17978224, 81896624, 75490065, 3797984, 8101491, 7761181, 7344205 ####[facility] [address] [place] [address] Anion gap [Moles/Vol] 14 mmol/L Normal 6-16 [facility] Comment on above: Performed By: #### 2 226529, 9947346, 12494529, 00881082, 26688745, 49787777, 2208012, 4323857, 3422980, 1591067 ####[facility] [address] [place] [address] Calcium [Mass/Vol] 8.5 mg/dL Low 8.9-11.1 [facility] Comment on above: Performed By: #### 2 779604, 9967290, 24510218, 29319328, 53856760, 32207252, 4443498, 3790276, 0186542, 9651543 ####[facility] [address] [place] [address] Chloride [Moles/Vol] 102 mmol/L Normal 101-111 [facility] Comment on above: Performed By: #### 2 362312, 2345634, 81405668, 30045532, 73346427, 37963311, 2336321, 5905163, 5973844, 3105931 ####[facility] [address] [place] [address] CO2 [Moles/Vol] 21 mmol/L Normal 21-[address] [facility] Comment on above: Performed By: #### 2 305223, 6321072, 31305763, 70615568, 05750758, 48479818, 3916548, 5526847, 2156604, 6009211 ####[facility] [address] [place] [address] Glucose [Mass/Vol] 95 mg/dL Normal 55-199 [facility] Comment on above: Result Comment: If t his glucose result represents a fasting glucose, interpretation should refer to the following reference range: 55-99 mg/dL Performed By: #### 2 623288, 8865167, 30551480, 51927583, 98548194, 93958462, 5791222, 8638486, 9759220, 7893674 ####[facility] [address] [place] [address] Potassium [Moles/Vol] 3.6 mmol/L Normal 3.5-5.3 [facility] Comment on above: Performed By: #### 2 726535, 3731906, 79854555, 07258862, 83585570, 99178358, 3562891, 3878918, 2145291, 3611293 ####[address] [place] [address] Sodium [Moles/Vol] 133 mmol/L Low 135-145 [facility] Comment on above: Performed By: #### 2 348512, 5209829, 06230059, 83101486, 10858690, 83851324, 3680778, 8623527, 4388088, 5504727 ####[address] [place] [address] CBC w/ Auto Diffon 1 Erythrocyte distribution width (RBC) [Ratio] 12.4 % Normal 10.9-14.2 [facility] Comment on above: Performed By: #### 2 357972, 3575042, 30124188, 23447303, 14840515, 38468445, 3289627, 2292305, 1098000, 9290147 ####[address] [place] [address] Hematocrit (Bld) [Volume fraction] 38.1 % Normal 34.0-46.0 [facility] Comment on above: Performed By: #### 2 533865, 9174108, 76817113, 43495036, 28622580, 80902255, 0861049, 0990766, 1469021, 9676921 ####[address] [place] [address] Hemoglobin (Bld) [Mass/Vol] 13.3 g/dL Normal 12.0-16.0 [facility] Comment on above: Performed By: #### 2 395723, 9713731, 66091294, 97167023, 17593964, 98815078, 3842254, 4326473, 6536586, 6122136 ####[address] [place] [address] MCH (RBC) [Entitic mass] 31.7 pg Normal 27.0-34.0 [facility] Comment on above: Performed By: #### 2 563004, 8665739, 43515242, 90730900, 27506794, 32090739, 9119526, 6000707, 5548520, 2281716 ####[facility] [address] [place] [address] MCHC (RBC) [Mass/Vol] 35.0 g/dL Normal 31.4-36.0 [facility] Comment on above: Performed By: #### 2 985087, 4934880, 42601712, 57930529, 26843821, 10350369, 9355809, 0435743, 0594896, 6272133 ####[address] [place] [address] MCV (RBC) [Entitic vol] 90.8 fL Normal 80.0-100.0 [facility] Comment on above: Performed By: #### 2 685788, 7502959, 18299409, 98208543, 87766550, 72887037, 2619214, 0286766, 7062074, 7573270 ####[address] [address] Platelet mean volume (Bld) [Entitic vol] 10.0 fL Normal 6.4-10.8 [facility] Comment on above: Performed By: #### 2 323198, 6715889, 24226098, 63463228, 75824547, 85933405, 3752683, 9423460, 0093476, 3343069 ####[address] [place] [address] Platelets (Bld) [#/Vol] 144.0 E9/L Low 150.0-500.0 [facility] Comment on above: Performed By: #### 2 381066, 0481148, 81387637, 17611446, 13233599, 55919336, 9839657, 0012625, 6236448, 9814825 ####[address] [place] [address] RBC (Bld) [#/Vol] 4.2 E12/L Low 4.3-5.9 [facility] Comment on above: Performed By: #### 2 554611, 5834918, 12768820, 20777477, 08702489, 53992995, 7334543, 0250789, 5576588, 0422102 ####[facility] [address] [place] [address] WBC corrected for nucl RBC Auto (Bld) [#/Vol] 5.3 E9/L Normal 4.0-11.0 [facility] Comment on above: Performed By: #### 2 658373, 9973528, 71606450, 17450787, 58490514, 00566432, 1019272, 2392342, 7342641, 3344683 ####[address] [place] [address] COVID-19 (MC)on 02-28-2021 SARS-CoV-2 (COVID-19) RNA MARY+probe Ql (Unsp spec) Not detected Normal Not Detected [facility] Comment on above: Result Comment: This test result should be correlated with clinical presentations and medical history by a healthcare provider to determine its clinical significance. This assay was performed by a reverse transcriptase real-time polymerase chain reaction (rt PCR) method on the [employer] system. This test has been authorized only [...] or revoked sooner. Performed By: #### 2 [id number] #### [facility] [address] [place] [address] SARS-CoV-2 (COVID-19) RNA MARY+probe Ql (Unsp spec) Pass Normal Pass [facility] Comment on above: Performed By: #### 2 [id number] #### [facility] [address] [place] [address] Specimen source Nom (Unsp spec) Nasal Normal [facility] Comment on above: Performed By: #### 2 [id number] #### [facility] [address] [place] [address] Employed in Healthcare NO Normal [facility] Comment on above: Performed By: #### 2 [id number] #### [facility] [address] [place] [address] First Test Unknown Normal [facility] Comment on above: Performed By: #### 2 [id number] #### [facility] [address] [place] [address] Hospitalized? NO Normal [facility] Comment on above: Performed By: #### 2 [id number] #### [facility] [address] [place] [address] ICU NO [facility] Comment on above: Performed By: #### 2 [id number] #### [facility] [address] [place] [address] ? NO Normal [facility] Comment on above: Performed By: #### 2 [id number] #### [facility] [address] [place] [address] Resides in a [facility] Setting NO Normal [facility] Comment on above: Performed By: #### 2 [id number] #### [facility] [address] [place] [address] Symptomatic as defined by CDC YES [facility] Comment on above: Performed By: #### 2 [id number] #### [facility] [address] [place] [address] Consent for Treatmenton 0 Consent for Treatment [id number] .00CD:127 Normal [facility] D-Dimeron 02-28-2021 Fibrin D-dimer FEU (PPP) [Mass/Vol] 388 [id number] Normal 215-500 [facility] Comment on above: Result Comment: This [...] infections Liver cirrhosis Performed By: #### 2 668352, 9657531, 34139140, 51934816, 06681903, 55003442, 3773661, 5313267, 6188983, 3227230 ####[facility] [address] [place] [address] Discharge Instructionson Discharge Instructions [id number] 1.00CD:127 Normal [facility] ED Clinical Summaryon 2020 ED Clinical Summary [place] [id number] ED Clinical Summary Person Information Name: RAJIV TOVAR/[facility] Age: 25 Years : 1995 Sex: Female Language: Romansh PCP: Alon Weber MD Marital Status: Single [...] 02/28/2021 11:17:01 02/28/2021 11:17:01 02/28/2021 11:17:01 ADDRESS: [address] [place] [id number] PHYS DOC NOTES: MEDICAL INFORMATION: Prescriptions Given: [...] Follow up: With: Address: When: Alon Weber [address] [place] [address], [place] [address] Business (1) In 3 days DIAGNOSIS: Chest pain; Viral URI Normal [facility] ED Note-Physicianon 02-29-20 ED Note-Physician Basic [...] hCG Qual CBC w/ Auto Diff COVID-19 ([facility]) D-Dimer ECG 12 Lead Adult ED Cardiac [...] Information Alon Weber In [address] [facility] [address] [place] [id number]- Business (1) Additional Instructions: Patient Education COVID-19: [...] Use, 01/30 (more content not included)... Normal [facility] Comment on above: Result Comment: Elec tronically Signed By: Laureano Phillip DO\.br\Date and Time Signed: 02/28/21 11:03 EDT ED Patient Summaryon 021 ED Patient Summary [address] [address] Patient Discharge Instructions Person Information Name: RAJIV TOVAR Age: 25 Years Arrival Date: 02/28/2021 09:10:34 Discharge Diagnosis: Chest pain; Viral URI Primary Care Physician: Alon Weber MD Provider Information Primary Provider: Laureano Phillip DO Advanced Commercial Fisherman:None The exam and treatment you received in the Emergency Department were for an urgent problem and are not intended as complete care. It is important that you follow up with a doctor, nurse practitioner, or physician?s metal forger's assistant for ongoing care. If your symptoms [...] Follow-up Instructions: With: Address: When: Alon Gus [address] [place] [address], [place] [place] [address] Business (1) In 3 days [...] opioids can be used to help relieve xsahagcp-dh-enermq pain and are often prescribed following a [...] be struggling with addiction, tell your health director of critical care and ask for guidance or (more content not included)... Normal [facility] Hep Func Panelon 02-28-2021 ALP [Catalytic activity/Vol] 52 Int._Unit/L Normal 21-98 [facility] Comment on above: Performed By: #### 2 355231, 7927979, 35448230, 91118640, 23318894, 54363711, 1631849, 0599089, 9677225, 8573626 ####[facility] [address] [place] [address] Albumin [Mass/Vol] 4.2 g/dL Normal 3.3-5.0 [facility] Comment on above: Performed By: #### 2 173110, 8170869, 28557692, 14219295, 28420428, 26544659, 4964800, 6735748, 6975876, 0691757 ####[facility] [address] [place] [address] Albumin/Globulin (S) [Mass conc ratio] 1.4 Normal 1.1-2.2 [facility] Comment on above: Performed By: #### 2 678493, 6107185, 97956252, 69023422, 99108951, 21224760, 7375508, 9490453, 6326338, 1676090 ####[facility] [address] [place] [address] ALT No additional P-5'-P [Catalytic activity/Vol] 48 Int._Unit/L High 6-46 [facility] Comment on above: Performed By: #### 2 175954, 8754165, 94787140, 83016330, 23985155, 45503577, 6259025, 7254625, 8234728, 2453799 ####[address] [place] [address] AST [Catalytic activity/Vol] 39 Int._Unit/L Normal 5-43 [facility] Comment on above: Performed By: #### 2 609523, 1883339, 96377988, 65086612, 33991787, 66454363, 4760802, 4893416, 2206740, 3305443 ####[place] [address] Bilirubin [Mass/Vol] 1.2 mg/dL High 0.0-1.1 [facility] Comment on above: Performed By: #### 2 527802, 7970531, 11137027, 23477911, 57553427, 59313803, 0583989, 7464772, 0335507, 4445973 ####[address] [address] Bilirubin.direct [Mass/Vol] 0.2 mg/dL Normal 0.1-0.4 [facility] Comment on above: Performed By: #### 2 528953, 4431780, 34709998, 87420573, 20554032, 11295539, 0300671, 3975100, 6006576, 8745666 ####[address] [place] [address] Bilirubin.indirect [Mass or moles/Vol] 1.0 mg/dL High 0.1-0.9 [facility] Comment on above: Performed By: #### 2 976294, 9497917, 51173640, 98706147, 86172034, 75882014, 3229371, 5977038, 1304070, 7060182 ####[facility] [address] [place] [address] Globulin (S) [Mass/Vol] 2.9 g/dL Normal 1.4-4.0 [facility] Comment on above: Performed By: #### 2 980687, 3456440, 01680189, 44534176, 36677081, 79302207, 0013123, 9477051, 7292628, 7757127 ####[facility] [address] [place] [address] Protein [Mass/Vol] 7.1 g/dL Normal 6.0-7.8 [facility] Comment on above: Performed By: #### 2 431481, 7832686, 66632135, 81049256, 18660214, 00406474, 5260046, 3452753, 8027624, 6900959 ####[facility] [address] [place] [address] Lipase Levelon 02-28-2021 Lipase [Catalytic activity/Vol] 33 U/L Normal 13-58 [facility] Comment on above: Performed By: #### 2 552798, 9756575, 06685883, 74600834, 90262266, 53448391, 4469827, 3272337, 6552211, 6781210 ####[facility] [address] [place] [address] PT & PTTon 02-28-2021 aPTT Coag (PPP) [Time] 31.5 second(s) Normal 25.1-36.5 [facility] Comment on above: Result Comment: Hepa rin therapeutic range (represented by Anti-Factor Xa activity of 0.2 - 0.4 U/mL) corresponds to PTT of 56.6 - 109.0 sec. Performed By: #### 2 030876, 7603828, 65555754, 81693524, 42942527, 76152405, 7268247, 1894366, 3098021, 4872015 ####[facility] [address] [place] [address] INR Coag (PPP) [Relative time] 1.1 {INR} Invalid Interpretation Code [facility] Comment on above: Result Comment: INR results are specifically intended to assess patients stabilized on long-term Anticoagulation therapy suggested INR?s ?Less Intensive Anticoagulation? 2.0 ? 3.0 Conventional Range 3.0 ? 4.5 Performed By: #### 2 615413, 0095985, 17211126, 62631774, 65481547, 95307763, 6505814, 6669825, 8916818, 1442823 ####[facility] [address] [place] [address] PT Coag (PPP) [Time] 13.1 second(s) High 10.2-12.9 [facility] Comment on above: Performed By: #### 2 982395, 8659468, 14272179, 90906824, 29061506, 33030691, 4465571, 6603711, 2953777, 3587473 ####[facility] [address] [place] [address] Prescriptions/Work Noteson 0 02-28-2021 Prescriptions/Work Notes [id number]# 1.00CD:127 Normal [facility] Troponin 0 Hr.on 02-28-2021 Troponin I.cardiac [Mass/Vol] ng/mL Low 10.10-27.10 [facility] Comment on above: Result Comment: The 95% CI (Confidence Interval) PPV (Positive Predictive Value) for myocardial infarction in females is 38 pg/mL, in males 51 pg/mL. The results should be used in conjunction with clinical conditions of myocardial infarction. (Access High Sensitivity Troponin I Instructions For Use, Yenifer Loki, January 2018) Performed By: #### 2 137237, 2609438, 29108780, 51435356, 86957969, 91337354, 7761498, 3755101, 9966959, 8203946 ####[facility] [address] [place] [address] XR Chest Single Viewon 02-28 XR Chest [...] MD Transcribed by: OLGA Technologist: YONG Kaplan [facility] eGFRon 02-28-2021 GFR/1.73 sq M.predicted among blacks MDRD (S/P/Bld) [Vol rate/Area] mL/min/{1.73_m2} Normal >=59 [facility] Comment on above: Order Comment: Order added by Discern Expert. Result Comment: eGFR is race adjusted. AA=. Performed By: #### 2 316933, 8550316, 15838411, 50406730, 53114177, 46941110, 5312693, 7806013, 5023636, 1219491 ####[facility] [address] [place] [address] GFR/1.73 sq M.predicted among non-blacks MDRD (S/P/Bld) [Vol rate/Area] mL/min/{1.73_m2} Normal >=59 [facility] Comment on above: Order Comment: Order added by Discern Expert. Result Comment: Liner Machine Operator Helper bib kidney disease could be indicated at eGFR's of less than 60 mL/min/1.73m2. Kidney failure is indicated at less than 15 mL/min/1.73m2. Performed By: #### 2 977998, 3439768, 38644293, 44499011, 62134278, 38628844, 9996270, 7635630, 4268128, 6525761 ####[facility] [address] [place] [address] C Urineon 08-11-2021 Bacteria identified Cx Nom (U) Microbiology PROCEDURE: [...] Locations R1: This test was performed at: [facility], [address] [place] [address], [address] , , Normal [facility] Comment on above: Performed By: #### 1 7152074, 4077640 ####[address] [place] [address] Coding Summary.on 02-01-2021 Coding Summary. CD:[id number] G h0bWw+PGhlYWQ+HS7RTFM eB92eeLMeqF1PR4mQKM7F TAPEKGOHBV6EGA6wgBD4Z WdhY2XekfKq MameqUPlDC01UFb8GPL3v GbfIGsdyZ1kzBMiC9c2Jr ZxVO88bR76UBabPNMyPjX 3LjZpbjsgbWFy Z5heUrChbFDiQma+PHRhY mxlIHdpZHRoPScxMDAlJy VthBfyTR2jLy3wABXyCYA vbGxhcHNlOiBj y3wiGIUnKBypFW1qeLmhW 8BxnDI8FMSjd3n3Ow76mK I+FLQzYJN1kMugKNsof51 0QrOlw6pkFOX2 gVIjXIylWAP5J94ab1N1O TUiRHOdZZJ9qGV4uG2yyM ijthdbJ1SdiKZcEjG7OPU 0mRQivN5yaXhb rcezkD1hNzt+A17CQA2PC SIAFQ3DIjr8H5ZpLwkctE I+BB45TXYlTA64vPRlxHZ mr1phwMo2YbOa IPBhSLC4kVliUOaff2FbC XYoO23qcHVru1E3XCTqhT acwQErVzErtLK1oU2lCSb pvsqxa6xmnvow Rzlxq2xwkw11lD86V25nJ ZlkOHMtPJE8ENOhHPYdqZ jcbc7jdK8hGa0+MFhwj3v fz1iqvYk1WoKi IGZcucWiuXymZVT2n9BnY q30O9WpfKles0BwQjp4my 25vMMpz3J4fKS0NVmyBZY ciU6gWNxuJhK8 PNPnQgOasV28bCXkPFhyQ v1xaBtljDahND2nVVXurp ouHAAinC5vGBGxnBKbgUn cOC3wWSQqtfix u561VaUwICP2AOVceIGkJ 0MuqC4pLeQyIEMvHJPxH0 ZeoMFfGXyhP484MHatXoL 3UEKwucBuI8Su VWNpoMyiQqO8s7G4Ou3Am 4LpfqyhRUD1AGsfVKE2Me NsKnFsAiA3U6KaLtt0JCG miOdaTO0hD6Py NCZaqobuezvxuSQ4LTWsZ PEqsX37nRRnAFnvQw6sr0 Z5p340JGXjTRLatW65Qn4 udDogMTBwdCBU tV1peajpn4kqtfsiUkNtI OXfXPn5PNw3RSPieGrqEd IjBKA3AdY6SYY0bIQxaQ3 asVfnlswyiL9g Oyc+W08eaW7iODS3UGZ0u zlvCBJfmjPsQY15UQ79S4 RyPjwvdGFibGU+PGRpdiB gyMqdJL1nJnDm x2fxg7EgERwqG5EqUCKgY PtzCpl8ZAKkXCO7rKF8rO 1wSPMlBExmb5H5jOH6W7T stlHfnw5za6xq PZYrTOvgK13bbROzr5U9O XUcoLL7YQBkzRgzIsIqaW 93Oyc+FSAwwRepl8UgQrv zx8ywj2dmrBg2 JdArLNSlagRgbJktFHF8u 1YfRt48V01qJXzeXYRsNO VvKCIiGMYzwHqqjj7ukD8 wIi8+PGNvbCB3 uNK1lW4yWDIcYfG0RPdwQ 187AtXlkGXgThnfa1wtv3 kgzAm8ToXuHPUuamTzfYe eEYK1j0OcTb23 A86pCFbbHZWnOTVpATSoZ PZcgTpymm1urB2uXk5+PC 8eu8gbac51sG19rED+PHR eJNH7yUpuNFwx ETLycR8yKGuaAcY3MGDxI sHwhH38lIGaGYcnYf1ruJ eyqOrkPA3xSKAzpnoij61 9LqBho5hnOEQy tWUeUGccKPG5Q10vj7A9L ZDvHLWrRJH5cKZ4dX6xkT lnbjogbGVmdDsgdmVydGl gLKrnEJhaR699 IHRvcDsnPlBhdGllbnQgT xXhSPz3Z8JqAfk1NRXyeA wsUM6yjDSgQHnqFg4leBe noGsoVZ3gPYCj lxhab309XwBfz8atZPDap PJtKAbqTDU0T61et2O3XE BxBRXxEEI2nDD0rB6dzTs nbjogbGVmdDsg deHdsNmqROtoMTemY953H HRvcDsnPkJpcnRoIERhdG T6PV47RF54cOQbl8M0zER 5G1LvYMTqjbtk xrdgmUL3XPUyVWQdnP51N s6qvAhhDq1nDVXaENN1KD AxzGYyZ2VgmA9xPuTlITO oERQlQ2VxrZPc DWzmU140KPraAkW7ELXeg tZnH4TyCOHucSzsIjF2e1 L3Gw2LG6W7PT68IQ66kIY op1X1jBT7I5Nk VWMpynolhrpfmYA1YUZtL ILtgG56Ku6gkHubEv4qHI UqZHX0VDSiqYWwH7AqmG4 yOiAjMDAwMDAw F8KmcHZfPXvvL757UXpbV kX3XAPkfwOsL6HrZTIlhQ qpHpO3z3G1Ob6VCPq2EP3 5LP84aBWmp0B6 eYG6M7AkTFUrgwmzzszyv DD7XLWvATWxxT38Pz3soP rqLh1cGGTpBSD4VHFikAV iN8RbaK2iIxBn URHdXJWeX4JgxGBhJJwzG 763TFkhSgK6KBVklmMoF0 YkZNBqyEwqWdJ4f6L1Ga6 ZWBPmXL83RCJ7 eEC9GF27AA11G2SdSfejk GFibGU+PHRhYmxlIHdpZH RoPScxMDAlJyBzdHlsZT0 bUt1yNZDuAAQv oVqmrXIyBvRcp7zkBIRnH WroOH5ofUcpR3CelNT1FP Ejj0l4Ts65L07yY4LmgCU +DERunZH8zLR0 tL3hIgDbAmC1PLalS832X iCccNUdHswgg7zax5pkxR l3WuU1OONqfnNfsBfeDJX 3w2CwLm11K41b IHdpZHRoPSIxNSUiIHZhb Rfutw0sdX1mBq0+PGNvbC K3pFH3oG2vAqLvOjK4FOe zV014IqDquHIm Dsxem5tlb3xnuFz4BoUuI BIkcmRvzEgvZGW7q0LjTc 56K0GskLxjd2XaSja9hz4 4tJAwu9E8hZK2 P9AsPNZzlqxjqBQceHtvO Q1dGCHktjspZJXfrY7nKG JgG9c0QzQmDaB4TDduV3J dqbD6HRXjhETf DHtqQMU7S40dd8J0JNWcK ULiNNI5gDH3zD6lgRucmt ogbGVmdDsgdmVydGljYWw oQBabU640EPIl oKkkGUZanZ0zWTUmtQBba RnqMD0mXYSspzvwSsMDCP GDZARTSKmFT0J7F5PuIfw 1QEXjmDuiUB9b hOSsYJjoEs6fqSjbzXxeJ P0zBZTcgwjqSMPeuB2cJY BylCJtwWzxNX1qCPXadip lf637EuBrIOB3 GEXodRQxV0KxgF5aMhYcF TRnHFOtQ9TgzRTcCOnhE5 11MObhPiM3XZVrjgGkE9P sLWFsaWduOiB0 w0T4Kh7cDJ8dCb5iNYyzO Y76BD35kQUdz2O7qXR5Y8 SvMUIqwwkzuyssnZG4EOF vRUYkrC18dOVe NNxiZc3zi4G1e784AWOjX BJfjE11Sh0nnYuqSZXosD WNlG0dyskjo7yaqiqvSpJ jAXOuGHm6IPz9 DEPfzSbxKaHvQIH3OjR0M UA1wIQorG7mbCfuptshfS 9wOyc+NfqvSHDicmS6A7G bSva4THSbtUhz MW7klPBtWXihYr1ipLaki RhlRF3wZWGfycwrLQFneC 7hZOFbjRWrbHdfBQ9fYGY fdceze032DbAb DAN8OIJucNGuG9MjgI1rV oHpSASzGDOaF3UcgJNdMJ pkK884OFceAvO6WUOdgqH kK6AwYLIjwWhe PwA9u5G5Br1TZH4euKY3F 4WcXfg9DFYugEfrHI7mkC DpNHbiXm9jeYgaoQoxQB4 wNTBpbjtwYWRk eL5mMHHohIYhvYnjDE2dJ DImfiajj351IyEmYOI6SE EywJEwP5AfdD0jXsKzLEO vRJAqE6BdqVVv RLfzD219KWkdSbR2ZLBpq oIxK3GdIMAjiQujTwG0o5 N2Ji8YzWZbU9UnB0y7G4X kPjwvdHI+PC90 BGJlDE71pXCfsJGyc2nmn Ir3GaMwPDZpDEJ5jPzxVA cen1UhTFZtH14ohTNml9Z 6IGNvbGxhcHNl DzQvdNR8bU1gGPctofwxa 8qimezjAhsts7rors20sB 66N52cCUiiHIAcZTFwSLG yMIGuhZjlrq3g wI9nCl2+TYKftUB7yRK0z M7lRaJfQaB3PSptF267Ag QckOUkEfasy5itq0frcMy 9IjIwJSIgdmFs nGjqWCW9a6HcNw59J25nX HdpZHRoPSIyMCUiIHZhbG aplx0bvE6fLc8+FT0ok8d hcm01sA27kOU+ KWAoYPZ7wAvpUVphZRGxc S0aQVlzSqT9PKYyVdZxvO 13vFPmFEicOl8liIancRc qTS5mUGBdbpah u107MoGnx3ahGFJtbUGbU VzyGVH5L61ve0R7ETBiES UxWCD7iRP6pK9onZjgqrs gbGVmdDsgdmVy uAfjPCjlDOxuO467HTXxu DxhKeKdcWFfZ0uraaSYMB 1lOjwvdGQ+ILRaVVM9qPj eDJhiHJRyqL5o BMSuB6u8HtJpTaB3SHfrD 1LudsH2NHGqlFNwJKStpG CFuT9qpczwu8mehfrvNsC pONAzKEj9SLz8 FHIvoYcsLcOoYTN7NcW9G GM6hWRdmR9yvCupkujpdQ 9wOyc+RklOOjwvdGQ+PHR mXRE0cQmhIRtw QZBgmY4xWLEkP4s2BfJyW uK8WPdeY7VurfN9YSIamD VmUOBuiRFPsB6yivqeo2a vcjogIzAwMDAw BNi7BIa7RYHebLclGcOmS LQ6TgP0QKQ7dWFlxE8tsE xvpbufxK0pKbb+TVJOOjw vdGQ+PHRkIHN0 sHxrXMgeUMFukW3aIRCfW 2t7XpLcNsR7BPmyP7Lzny A7JRObaZJdFIYgwNHApY4 hmfidk6vilwws NwTcOLKgVDu3WHu3QDQzt PseBzMuAEM9DcX7VHE0wA QukM4ffOxserwvsU5nFqj +DRM1EKO6ZN44 AN59C9RdEduqkJUvgEX+P HRhYmxlIHdpZHRoPScxMD SxPcQvoCiwCS9sBu0nWCA yLWNvbGxhcHNl OiBj (more content not included)... Normal [facility] B hCG Qualon 01-31-2021 Beta hCG Ql Negative Normal [facility] Comment on above: Performed By: #### 2 632756, 6851570, 3951922, 24203281, 8191977, 00340491, 5733658 ####[facility] [address] [place] [address] Discharge Instructionson Discharge Instructions [id number]# 1.00CD:127 [facility] ED Clinical Summaryon 2020 ED Clinical Summary [address] [address] ED Clinical Summary Person Information Name: RAJIV TOVAR [place] Age: 25 Years : 1995 Sex: Female Language: Romansh PCP: Alon Weber MD Marital Status: Single [...] 01/30/2021 23:43:48 01/30/2021 23:43:48 01/30/2021 23:43:48 ADDRESS: [address] [place] [id number] PHYS DOC NOTES: MEDICAL INFORMATION: Prescriptions Given: New Medications [id number], [address], [place] [id number], [phone] cephalexin (Keflex 500 mg Cap) 1 Capsules [...] Follow up: With: Address: When: Alon Weber [address] [place] [address], [address] [place] [id number] Business (1) In 3 days 02/02/2021 DIAGNOSIS: Acute UTI [facility] ED Note-Physicianon 02-01-20 ED Note-Physician CD:[id number]:91033 2 4VI22iNmtgwCim4wjky8a BV3lXsJmrjBmZOebGr3cs 9wrNN82dd2fSdThXj0+Cj yrFB4TCFnFCIXz hN6pETUXPgzWJnVnPE7qM mEBGx5FCICiYAoOVTjzMG 4qMEC0fpllyJ0aDE6eFZU bxHJyVz8hj7y8 RzaySu2jWm2DQq49nQPvh AEzPLFLF0bvmQ2vGH4ftP JnF4RkHZOrMo3HCHe0tYv auP5sccX1Sgf6 tQF0Ei70x5kdbvQva3TsE wJ0FAtodMe4pBncJLdcxH 2wZtGfMKNPvN2vuPmtLE9 gfI0dotWwePgb biI+TrbbSSRsEde2eBYcZ E26L9VsaQhfKtj5qAI5RK JvoIJzRJAucEv2GLHFIWP BLUNvbXBhdGli lSXbMSBpndIedgC5TthHM QJqJuVnGcc1V9ngUHZ+Cj szc4S5Qzb4GAa6LTA4rHh vHOPfb706EGDz jHmbaEuxuONro47zYCZku YQwUsCdw809DBTmpdD5TP hmiMosZho9mUIzfDHsd3s fjOa1PqNaXCPd NhdJRNFysChiu3HjVhuNI Eyzl7hpirLgaQjfZDN2w4 PvWJawILQqKJZ0HySlCL9 +CgkJPGNvbCB2 ORomC851RpKlnCTzk7pyg Iv6WlL2KVGlCs3IZZhbS0 9wF5LklCI+Qbu4vDUyKSa +CgkJPHRyPgoJ UGb2iTMrf1J5jVT5VaZnm jJye5j2STozBDR2XcK3HK F4hNHunS9zaNqpzzldvN9 wOyI+CgkJCTxk cSCmG4equ8D5FpFsv7Btq HshwaGuDWFgCzTqt8cqPu grOMEuaP5jFOC7ZzBbIUB leHQiIGlkPSJf WmPyPYPxDvHyZTRdWr14G pNqMRh4IGbmImkxLWH0Rq EjEhKhFdGhvWtdNT2ruSF kZGluZzogNHB4 OyI+NFJiSQ9hP6ovj6V6Y tExo9RghIzfmuEis1EfOH jcRkzbdGAcIEW1wTlyBPD ei895XEcdmFzi dUjtYg5hTBhqfOQ5sP2eN RTpssE8dY2nQcF2oqItmx qyznJ0Xx1CERFeFuAWymK jph5veQzflnvn t9Mvxi98E5AsTU1+CgkJC ZlptTCuG6kzo5N4PmMoc8 Isk25vkrQ3OQ4laAT0DIP bHSHnXwAyz5cn YmxlIGRkZnJlZXRleHQiI MFlXuK5lwLww9R6bK2gk1 C0mIK4YfFgfH3ddZvtqPG jDVD3sUUfxNpz oREhE0mqQHSMS4deJ23IX LYIEKUMNPMxBKu6SCyaPu QiIGlkPSJfYTMyMjFhZGU yGUQcWZ28PzOp RLJgDHUdXwO6AFQmMpA0X LN7Sj98y4FfsnPapUdfOO 1kiVVwH5tfMvCftFXoKXa gGkYfICRirB6m YmEqkNR8WGGmlDPtHBevX 622BPvwCnR7RGMykR5bVe EcQ3MaNJodDIjjAUg8XHI aziTci8F8bQZ4 OP3gbi5zbFuhUj7fzK41N NhdeIG7IL5gar1woSsagT F3fG3pMPEyucI7fO9wNaW fb96cPsE+JiN4 XWH5Od9koQDyeLjynDloN jRlZQGoHKQ5FZnfIVZdHH 7iE0pgPDl0C2CvAY4+PGJ yIC8+CgkJCSYj mTPnIpbhXJe7EnxOXZoEJ OGhijAtgLVbyk9cVBYwyj ZnkUZ1xXOwLVGczW78SGS mPORzYMV9PwZe YplsZWGpruoyqJlmZN9hc J3aKEReY9q6PkFsWU9xUe jqGsD7HWqjGWt7QLmcKSl hQB83WCu9PRPx AUB2PfZmNiJgFsQtf0N2m PC5RlAct2TlEOf2WN7apt L9Ao48D3Nuzi9UAVpPME4 kaXY+CgoJCQk8 TCx0GLWyMDSlCZUoQSSoQ 9Vls40yVBMaRQXaUKVnEM DnTGRlYEenn3YzsUIgIWF 2UNp0ZBZlchIq o5FfPznvLlLbPAtiJJQ0a U8lX61jLF3sNG6BAlTvJT KrYSKeOtTmtJI9Fc20CeR 6GVI7JG27VoOj AWM9HPggQGc0Sd8uZZAiI rZcERP3PQkhUBK8vRhuXZ KyHRAdsK2wQyQ4pDd8Dx8 6b4GbtrNpaRPh mw5jWUVbHGG8wN5dGRmfw GxheSI+NWDwAX9wl2A2xJ F5LzMypvCkl2YmG2b6NxC rk0bqKoH5TLt8 HNVwM17oMLUuj109YGRcG GVybGluZTsiPkNoaWVmIE GtoTKzUDhcyEmky9Hpdf9 1L2ZeTB4+CgoJ LDz8CLj9BLPpNXLlGNArV GVtcmNvbnRlbnQiIGRkOm IclvFymgX6hAPjVLKYXRE PTSLAC43UDXFt UJYtFjPfEeDxMT7zZXH2k YV0EsDKAzUzYAs0MIWoBH GyTQULXk1PYFBfPRPQGZP GBRZ3OSWFUCUx bKH0Mm33GlUaFvzyZm5gO HAzXZMpXbLuVcsaDw5oJS k2IRDuCPuuVeHdKbeIGTw 5EDu8TWCvGMQt PSJkZGVtcmNvbnRlbnRpd KYjPMAqouIuh5GbHekwXw KuNVlhr139DV21zRsxLY0 wXRIGS2EGWA7T RUFTIiBkZDplbnRpdHlpZ Z6tKVc7PDX8XRCuJlOzxK W8Rk1hFTDzPvnjEp2iYPX hLTRkMWMtYjNl Jo01IQX0NMm3ZIZ6YnleT FjwpR2xAbZcIRIWjF7xjI lgRB7auM1gtoCqzPsaylU +cHQgYXJyaXZl npWec9AavspigOGfo3hiZ UPeRIClMDZwpP6gaWqpbG OvcNWzbSYfcO3hfJxaKMY gED7pIHOsKD7x N42jqtO7odJ8gDYmbojtm UPbEPW0PRndVYYooQrkDF TjMMUjWKAbbvVjm5QyJFc aZR1mPLhlfzYm oUNdSxPcigJonK9rVSE9y 9DfUpmlGTy1AqcQOHa4W9 Gdsh4IZGeCQU3cjFD+Cgo GYIq6OId2HRCo SFJmYLSiAJGfQ7Wda45vQ GRyZWZyZXNoYWJsZSBkZG tej5LiqTQpOCH9VDn5TCX bfmGdi6BkCozt KlMgVXbxAVJ9nC0cO26tJ V9iAZ6ZEgSvKNAqBoCmBi BziZJ3Qe0wU4RbBIK5PQ1 hQsOuBVX6QaNt BNy1Yj1bFPN3BaS4HXblY AGvNEE5kXhhFFNvMYKqaC 7jKcX3sZk1Vk37p8UyjiL pcLPqfw0gUBEt FQJ5xS8eTNamdEwviBX+P TVaPX0dw5N8hBT8YqRcmi Hkd6WvK9v7YhMsp2chMsE 4TSo2OQVrQ82f ZSTyb544ZSOaIQRzpRgvX UffHnpsx4Lydnswa1VkGJ Aih2JzmVTXqEggVFBkWW9 phKRqWucbr8Is tn5FAyjVTXzasCIdY5yaf 1U6RhNbNF9lJ46ewHZyjC DlLKK8Q99fH7DprW1iRDU EKrRlSIlmr925 VM30zMrbIK6fQA5OV8WHG IPuDAWnZcDbMsTiOU3tOL P3yDI0CvVeZqDzPhE8ODG 4PRXxYLWGVl85 IvnUBKMJEsK8D0O6I5G1N JIwnSZ2Nv4eTZC4WvrrNN 65LLQiRFMlNVNrHPHdQH0 7RRCaHIW2GAD6 STioYdtVBBl0XOy1RGSeY XNzPSJkZGVtcmNvbnRlbn QfdLEeJhCkCFjhx448QT3 5iCtnNU6sBMCO J2IVZP7CHCMYSvPmILtsz dIsqPxlVS1lSWLgVGI0AO 21dHY5zsZge1hxtn5mLTG cmPN0Ag04HBEc ZffhDO5oKwrxALL9NCsmH IQ3Xu69ODR1GSFyVANyLZ ToNuwOANy3UPk8DOMkNLH zPSJkZGNvbXBv gnFotSDqVRU6YB42uHZ0u VL1bWN2yZE4RjXdr5WbyR EqpIShnZD1Mb28X5T5Rnm kHV8pU7UtBHRu NrwlAsB8Qr00LABcDdSeV FL8X4NwCrhMWRh4UJm8OM XzUEYcZSMgQXYmXZG1NWo 3XZWyrjIim8Db MqvhClWtGFwfmM8hqB7ny LmpN2U4jNyxQJM4u9Reve lnaHQiIGlkPSJfMjlkMjM 5IGMcMBQgYT71 Cnd9UKLqRvWsPGl6XJj6J uL9GeC1Og5EKDtmp6LwA4 gzSzGxaZAhLMIsIsG4ETT hWM8tHEWlBO2n pDMsy1j4hPORFXqkx7Bld 5GufihppoDujIG4omSzwx SbFH65shA3mOLyDLPkqRN llaPnxDQ1w1P8 VF5hXRaqrFQmvTu4qEGro CTxxBFwJ7EcQZ3nW9JxBC 4lvR2ysTNfRHxbEWArMHW oS9VsDEIuZA7u OKQpyV0cwN2xZPXlMOKlg vG9cERyaZHsrFpdKAOoX8 JpYmVkIGFzIHNoYXJwLCB klvHlk5YuKNJy x53lvSd6QOLdVKdioTIdW BEnGGypa1doULCwHEW8SH auFavpYB5qFZdcz4MfVVG uP3jmAAM2knRd bnRseSByYXRlZCBhdCBhI PkeGGStKO9mLSqlpqD3n3 oninMzARJylEIyuL9vbVe nZGPep1CtYXYe cR0tz8J9HQ9gAFBop7DyN HEkWQV7qWVtOO0eqm7fNU KupRAuQKE2f1WrwPTrIO1 zUVBkGWI2AC8j oCqxJgL1ICZgRX5uv1IzE TneqBA3hSHtVX3fITBvVB 7kz1W0uWR6BmBdBOSrebt rnP9xUhRudKy6 CNHaNABpinmiIb03xM0iZ bXljYj1DD6jzhoayp66j4 Q4ZTXrvZbdfYQhU3bnSOL vdHRvbTogMHB4 OyI+Sw0xtExohM1tyMCaQ wXflTBeGWvcc9RbopMfZf pbg8Ckim9qF6bcXPs8g8P taxPtkTwsWS3r dQSjNJdgUv51b3C9UMCgs KdncNAqBYgyKm0ni1J6f6 65NAWmpVwsnDCwT9gqZUA lyMseZOH9TlGe Y (more content not included)... Normal [facility] Comment on above: Result Comment: Elec [...] this condition includes: ? Antibiotic medicine. ? Kfbp-rot-zcskgdq medicines to treat discomfort. ? Drinking enough [...] these instructions at home: Medicines ? Take arky-qtr-hpjnrqs and prescription medicines only as told by [...] This in (more content not included)... Normal [facility] ED Patient Summaryon 021 ED Patient Summary [address] [address] Patient Discharge Instructions Person Information Name: RAJIV TOVAR Age: 25 Years Arrival Date: 01/30/2021 20:17:08 Discharge Diagnosis: Acute UTI Primary Care Physician: Alon Weber MD Provider Information Primary Provider: Joshua Hollingsworth DO Advanced Commercial Fisherman:None The exam and treatment you received in the Emergency Department were for an urgent problem and are not intended as complete care. It is important that you follow up with a doctor, nurse practitioner, or physician?s metal forger's assistant for ongoing care. If your symptoms become worse or you do not improve as expected and you are unable to reach your usual health care provider, you should return to the Emergency Department. We are available 24 hours a day. AKHILRAJIV has been given the following list of patient education materials, prescriptions and follow-up instructions: Follow-up Instructions: With: Address: When: Alon Weber [facility] [facility], [address] [place] [id number] Business (1) In 3 days 02/02/2021 In the event that this physician does not participate in your insurance network, please consult with your insurance company to find a nearby participating provider. Patient Education Materials: Urinary Tract Infection, Adult A MESSAGE TO ALL PATIENTS REGARDING OPIOIDS PRESCRIPTION OPIOIDS: WHAT YOU NEED TO KNOW Prescription opioids can be used to help relieve lruzpzhu-ez-lsgwsu pain and are often prescribed following a [...] be struggling with addiction, tell your health director of critical care and ask for guidance or call [facility] National Helpline at 8-674-216-HELP. v Source: [place] Department of Health a (more content not included)... Normal [facility] UA With Cult Reflexon 2020 Bacteria LM Ql (Urine sed) 1+ /HPF Abnormal Trace [facility] Comment on above: Performed By: #### 1 [id number], [id number] ####[facility] [address] [place] [address] Bilirubin Ql (U) Negative Normal Negative [facility] Comment on above: Performed By: #### 1 [id number], [id number] ####[facility] [address] [place] [address] Clarity (U) CLOUDY Abnormal Clear [facility] Comment on above: Performed By: #### 1 [id number], [id number] ####[address] [address] Color (U) YELLOW Normal Yellow [facility] Comment on above: Performed By: #### 1 [id number], [id number] ####[facility] [address] [place] [address] Crystals LM Ql (Urine sed) Present Normal [facility] Comment on above: Performed By: #### 1 [id number], [id number] ####[place] [id number] Epithelial cells.squamous LM.HPF (Urine sed) [#/Area] 0-2 Normal 0-2 [facility] Comment on above: Performed By: #### 1 [id number], [id number] ####[place] [id number] Glucose Test strip (U) [Mass/Vol] Negative Normal Negative [facility] Comment on above: Performed By: #### 1 [id number], [id number] ####[address] [address] Hemoglobin Ql (U) TRACE Abnormal Negative [facility] Comment on above: Performed By: #### 1 [id number], [id number] ####[address] [address] Ketones (U) [Mass/Vol] Negative Normal Negative [facility] Comment on above: Performed By: #### 1 [id number], [id number] ####[address] [address] [place].plasma/Lithi um.RBC (Bld) [Mass ratio] 0-3 Normal 0-3 [facility] Comment on above: Performed By: #### 1 [id number], [id number] ####[address] [address] Mucus Ql (Urine sed) TRACE Normal [facility] Comment on above: Performed By: #### 1 [id number], [id number] ####[address] [address] Nitrite Ql (U) Positive Abnormal Negative [facility] Comment on above: Performed By: #### 1 [id number], [id number] ####[place] [address] pH (U) 7.5 [pH] Invalid Interpretation Code 5.0-9.0 [facility] Comment on above: Performed By: #### 1 [id number], [id number] ####[place] [id number] Protein (U) [Mass/Vol] Negative Normal Negative [facility] Comment on above: Performed By: #### 1 5463836, 4881104 ####[place] [address] Specific gravity (U) [Rel density] 1.020 Invalid Interpretation Code 1.005-1.030 [facility] Comment on above: Performed By: #### 1 [id number], [id number] ####[place] [address] Type of Urine collection method Clean Catch Normal [facility] Comment on above: Performed By: #### 1 [id number], [id number] ####[place] [id number] Urobilinogen Qn (U) 0.2 {Arnie'U}/dL Normal 0.0-1.0 [facility] Comment on above: Performed By: #### 1 [id number], 0724754 ####[place] [address] WBC Auto Ql (U) 1+ Abnormal Negative [facility] Comment on above: Performed By: #### 1 [id number], 1421202 ####[address] [address] WBC LM.HPF (Urine sed) [#/Area] 6-15 Abnormal 0-5 [facility] Comment on above: Performed By: #### 1 [id number], [id number] ####[facility] [address] [place] [address] Auto Diffon 01-30-2021 Basophils/100 WBC (Bld) 0.4 % Normal 0.0-2.0 [facility] Comment on above: Order Comment: Order Added by Discern Expert. Performed By: #### 2 [id number], [id number], [id number], [id number], [id number], [id number], [id number] ####[place] [address] [place] [address] Basophils/Leukocytes Auto (Bld) [Pure # fraction] 0.0 E9/L Normal 0.0-0.2 [facility] Comment on above: Order Comment: Order Added by Discern Expert. Performed By: #### 2 506120, 1074845, 7551560, [id number], [id number], [id number], [id number] ####[facility] [address] [place] [address] Eosinophils/100 WBC (Bld) 1.4 % Normal 0.0-8.0 [facility] Comment on above: Order Comment: Order Added by Discern Expert. Performed By: #### 2 573152, 6946349, 9954996, 55967186, 2585755, 54197019, 4463750 ####[address] [place] [address] Eosinophils/Leukocyt es Auto (Bld) [Pure # fraction] 0.1 E9/L Normal 0.0-0.5 [facility] Comment on above: Order Comment: Order Added by Discern Expert. Performed By: #### 2 575881, 5920307, 6337891, 91475767, 7488183, 92333903, 4440345 ####[address] [place] [address] Lymphocytes/100 WBC (Bld) 23.7 % Normal 14.0-50.0 [facility] Comment on above: Order Comment: Order Added by Yifan Expert. Performed By: #### 2 377842, 9196483, 7435143, 97374374, 6054132, 39333303, 3176335 ####[facility] [address] [place] [address] Lymphocytes/Leukocyt es Auto (Bld) [Pure # fraction] 1.9 E9/L Normal 1.0-4.0 [facility] Comment on above: Order Comment: Order Added by Discern Expert. Performed By: #### 2 907819, 0226603, 9471914, 17938782, 6456689, 83294221, 5865420 ####[address] [place] [address] Monocytes/100 WBC (Bld) 6.2 % Normal 4.0-14.0 [facility] Comment on above: Order Comment: Order Added by Yifan Expert. Performed By: #### 2 496887, 8975952, 2305615, 05165055, 5396226, 85371889, 1046268 ####[facility] [address] [place] [address] Monocytes/Leukocytes Auto (Bld) [Pure # fraction] 0.5 E9/L Normal 0.2-1.0 [facility] Comment on above: Order Comment: Order Added by Yifan Expert. Performed By: #### 2 565770, 4047336, 3688431, 30680351, 1359412, 75439735, 3325286 ####[address] [place] [address] Neutrophils/100 WBC (Bld) 68.3 % Normal 36.0-75.0 [facility] Comment on above: Order Comment: Order Added by Yifan Expert. Performed By: #### 2 081839, 4062990, 7874196, 88183911, 8130614, 36368131, 9488627 ####[facility] [address] [place] [address] Neutrophils/Leukocyt es Auto (Bld) [Pure # fraction] 5.6 E9/L Normal 2.0-7.5 [facility] Comment on above: Order Comment: Order Added by Discern Expert. Performed By: #### 2 710741, 7515239, 0690593, 33321132, 4433729, 54989409, 8095878 ####[facility] [address] [place] [address] BMPon 01-30-2021 Calcium [Mass/Vol] 9.0 mg/dL Normal 8.9-11.1 [facility] Comment on above: Performed By: #### 2 791272, 0262314, 2526971, 76026662, 2836794, 31683656, 7162119 ####[facility] [address] [place] [address] Creatinine [Mass/Vol] 0.7 mg/dL Normal 0.5-1.3 [facility] Comment on above: Performed By: #### 2 508151, 8709848, 4284778, 60522642, 6469964, 46558013, 9061121 ####[facility] [address] [place] [address] Urea nitrogen [Mass/Vol] 10 mg/dL Normal 5-21 [facility] Comment on above: Performed By: #### 2 805583, 0220308, 1664982, 58374070, 0889686, 54178077, 2820419 ####[facility] [address] [place] [address] Urea nitrogen/Creatinine [Mass ratio] 14 No Units Normal 10-20 [facility] Comment on above: Performed By: #### 2 493821, 1960170, 4227115, 30752016, 5132697, 11746149, 9496353 ####[facility] [address] [place] [address] Anion gap [Moles/Vol] 12 mmol/L Normal 6-16 [facility] Comment on above: Performed By: #### 2 760380, 9075624, 2576112, 33647647, 9822094, 55752390, 1485661 ####[facility] [address] [place] [address] Chloride [Moles/Vol] 104 mmol/L Normal 101-111 [facility] Comment on above: Performed By: #### 2 519392, 8942172, 1359393, 22938033, 3324544, 58357240, 3683146 ####[facility] [address] [place] [address] CO2 [Moles/Vol] 25 mmol/L Normal 21-[address] [facility] Comment on above: Performed By: #### 2 047034, 7202440, 6883175, 50135087, 0964916, 93591974, 3078382 ####[facility] [address] [place] [address] Glucose [Mass/Vol] 93 mg/dL Normal 55-199 [facility] Comment on above: Result Comment: If t his glucose result represents a fasting glucose, interpretation should refer to the following reference range: 55-99 mg/dL Performed By: #### 2 433080, 1693668, 1952456, 29521481, 9863365, 82469228, 5947026 ####[facility] [address] [place] [address] Potassium [Moles/Vol] 3.8 mmol/L Normal 3.5-5.3 [facility] Comment on above: Performed By: #### 2 747774, 3558018, 0517806, 83522764, 4903518, 15629190, 0531410 ####[facility] [address] [place] [address] Sodium [Moles/Vol] 137 mmol/L Normal 135-145 [facility] Comment on above: Performed By: #### 2 071479, 2459362, 5457861, 05079770, 0336536, 38664078, 4781580 ####[facility] [address] [place] [address] CBC w/ Auto Diffon 1 Erythrocyte distribution width (RBC) [Ratio] 12.2 % Normal 10.9-14.2 [facility] Comment on above: Performed By: #### 2 428473, 0784613, 9225824, 44086061, 8979197, 26419033, 7667576 ####[facility] [address] [place] [address] Hematocrit (Bld) [Volume fraction] 39.3 % Normal 34.0-46.0 [facility] Comment on above: Performed By: #### 2 844958, 7080393, 8895361, 89558571, 0705768, 06149524, 9430301 ####[facility] [address] [place] [address] Hemoglobin (Bld) [Mass/Vol] 13.3 g/dL Normal 12.0-16.0 [facility] Comment on above: Performed By: #### 2 317983, 9722623, 5748896, 09909208, 5288111, 21907253, 3999545 ####[address] [address] MCH (RBC) [Entitic mass] 31.3 pg Normal 27.0-34.0 [facility] Comment on above: Performed By: #### 2 935027, 7129093, 6579671, 63621415, 6577692, 03041700, 8021007 ####[address] [address] MCHC (RBC) [Mass/Vol] 34.0 g/dL Normal 31.4-36.0 [facility] Comment on above: Performed By: #### 2 619680, 4523685, 5013841, 87015486, 4168051, 72913949, 8839951 ####[address] [address] MCV (RBC) [Entitic vol] 92.1 fL Normal 80.0-100.0 [facility] Comment on above: Performed By: #### 2 662822, 7877659, 0580021, 78722766, 0923885, 08390198, 4749519 ####[facility] [address] [place] [address] Platelet mean volume (Bld) [Entitic vol] 9.2 fL Normal 6.4-10.8 [facility] Comment on above: Performed By: #### 2 782430, 9691929, 6483474, 25008978, 6380278, 10100587, 7232800 ####[facility] [address] [place] [address] Platelets (Bld) [#/Vol] 214.0 E9/L Normal 150.0-500.0 [facility] Comment on above: Performed By: #### 2 026358, 3798167, 7531919, 45771462, 6844875, 10820430, 2016794 ####[facility] [address] [place] [address] RBC (Bld) [#/Vol] 4.3 E12/L Normal 4.3-5.9 [facility] Comment on above: Performed By: #### 2 658281, 8089469, 5561823, 00684445, 7881509, 78865707, 2284238 ####[address] [place] [address] WBC corrected for nucl RBC Auto (Bld) [#/Vol] 8.2 E9/L Normal 4.0-11.0 [facility] Comment on above: Performed By: #### 2 098358, 9051320, 0048499, 22165248, 2942404, 41745229, 3560226 ####[address] [place] [address] Consent for Treatmenton Consent for Treatment [id number] .00CD:127 Normal [facility] Hep Func Panelon 01-30-2021 Albumin [Mass/Vol] 4.0 g/dL Normal 3.3-5.0 [facility] Comment on above: Performed By: #### 2 046400, 9147793, 7595831, 94251530, 7115849, 35728199, 0626228 #### [facility] [address] [place] [address] Albumin/Globulin (S) [Mass conc ratio] 1.5 Normal 1.1-2.2 [facility] Comment on above: Performed By: #### 2 144727, 4658074, 2586141, 72720548, 7414478, 54228964, 6076815 #### [facility] [address] [place], [place] [address] ALP [Catalytic activity/Vol] 44 Int._Unit/L Normal 21-98 [facility] Comment on above: Performed By: #### 2 402009, 7740836, 0884613, 24719809, 5972519, 76838935, 8595295 #### [facility] [address] [place] [address] ALT No additional P-5'-P [Catalytic activity/Vol] 20 Int._Unit/L Normal 6-46 [facility] Comment on above: Performed By: #### 2 561429, 6870728, 0705118, 72443507, 1128560, 81546117, 6101692 #### [facility] [address] [place], [place] [address] AST [Catalytic activity/Vol] 16 Int._Unit/L Normal 5-43 [facility] Comment on above: Performed By: #### 2 764234, 6665323, 2667072, 28997898, 0672754, 28049805, 9070488 #### [facility] [address] [place] [address] Bilirubin [Mass/Vol] 1.1 mg/dL Normal 0.0-1.1 [facility] Comment on above: Performed By: #### 2 036206, 8223309, 6293552, 44651326, 8912085, 62077828, 2328395 #### [facility] [address] [place] [address] Bilirubin.direct [Mass/Vol] 0.2 mg/dL Normal 0.1-0.4 [facility] Comment on above: Performed By: #### 2 995629, 8804430, 6259863, 05090673, 0787750, 69341471, 1583630 #### [facility] [address] [place] [address] Bilirubin.indirect [Mass or moles/Vol] 0.9 mg/dL Normal 0.1-0.9 [facility] Comment on above: Performed By: #### 2 766771, 8751864, 5301338, 29947559, 7449252, 43218324, 8157190 #### [facility] [address] [place] [address] Globulin (S) [Mass/Vol] 2.6 g/dL Normal 1.4-4.0 [facility] Comment on above: Performed By: #### 2 432268, 1204837, 5899403, 08736426, 9435227, 80637222, 1576983 #### [facility] [address] [place] [address] Protein [Mass/Vol] 6.6 g/dL Normal 6.0-7.8 [facility] Comment on above: Performed By: #### 2 649637, 3256609, 7577675, 48269460, 6695639, 15987430, 1177085 #### [facility] [address] [place] [address] Lipase Levelon 01-30-2021 Lipase [Catalytic activity/Vol] 32 U/L Normal 13-58 [facility] Comment on above: Performed By: #### 2 419827, 5697184, 0639420, 09664847, 6494307, 98013261, 7095826 #### [facility] [address] [place] [address] eGFRon 01-30-2021 GFR/1.73 sq M.predicted among blacks MDRD (S/P/Bld) [Vol rate/Area] mL/min/{1.73_m2} Normal >=59 [facility] Comment on above: Order Comment: Order added by Discern Expert. Result Comment: eGFR is race adjusted. AA=. Performed By: #### 2 913515, 9315198, 4956097, 73635560, 6333654, 10907819, 5448520 #### [facility] [address] [place] [address] GFR/1.73 sq M.predicted among non-blacks MDRD (S/P/Bld) [Vol rate/Area] mL/min/{1.73_m2} Normal >=59 [facility] Comment on above: Order Comment: Order added by Discern Expert. Result Comment: Liner Machine Operator Helper bib kidney disease could be indicated at eGFR's of less than 60 mL/min/1.73m2. Kidney failure is indicated at less than 15 mL/min/1.73m2. Performed By: #### 2 990523, 5001179, 5496031, 08893186, 6733325, 93444711, 7968857 #### [facility] [address] [place] [address] Provider Letteron 06-03-2020 Provider Letter June 03, 2020 To Whom It May Concern, Rajiv has been under my care and had a lap choly on 05/10/2020. She was seen post operatively on 05/23/2020 and was healing well. Rajiv is released to work on 06/06/2020 with no restrictions. Please call the office at [phone] with any questions/ concerns. Sincerely, Dr. Aiden Izquierdo faxed to [facility] to [phone] [facility] Ambulatory Clinical Summaryo n 05-23-2020 Ambulatory Clinical Summary {[id number]}CD:[id number] [facility] General Surgery Office/Clini c Noteon 05-23-2020 [...] Aiden IZQUIERDO MD Only if needed [address] [place] [address]- Additional Instructions: F/U PRN Problem List/Past Medical [...] 04/19/2020 Family History Family history is negative [facility] Comment on above: Result Comment: Elec tronically Signed By: Aiden IZQUIERDO MD\.br\Date and Time Signed: 05/23/20 10:17 EST\.br\Electronically Co-Signed By: Mildred Cook MA\.br\Date and Time Co-Signed: 05/23/20 09:55 EST IntraOperative Documentson 1 07-17-2019 IntraOperative Documents [id number]#1 .00CD:127 [facility] Ambulatory Clinical Summaryo n 05-16-2020 Ambulatory Clinical Summary {[id number]}CD:[id number] [facility] Gastroenterology Office/Clin ic Noteon 05-16-2020 Gastroenterology Office/Clinic Note Chief Complaint f/u EGD HPI Staff This is a 25 year old female who presents today for a follow up to EGD. History of Present Illness 24 years old white female with no significant past medical history except for anxiety, referred to me from [facility], ER to be evaluated for right upper quadrant abdominal pain, she reports right upper quadrant abdominal pain, started 6 weeks ago, sporadic, moderate in nature except for the last time when it was severe for which she went to [facility], ER, she had normal CBC, CMP [...] Information Ezequiel MARTINEZ MD Only if needed [facility] [address] [place] [place] [address]- Additional Instructions: Patient Education Cholelithiasis Problem List/Past [...] Pathology Report; 04/29/2020 10:57 EST Normal [facility] Comment on above: Result Comment: Lupe goodally [...] required. HOME CARE INSTRUCTIONS ? Only take abxv-vgm-muoziat or prescription medicines for pain, discomfort, or [...] Document Reviewed: 08/09/2011 ExitCare? Patient Information ?2013 [facility]. Normal [facility] Coding Summary.on 05-13-2020 Coding Summary. CODING DATE: 05/13/2020 FINAL [facility] STATUS: Home (Routine DC) PAYOR: Reba APC DESCRIPTION 5361 Level 1 Laparoscopy and Related Services ADMIT DX: REASON FOR VISIT DX: K81.1 Chronic cholecystitis FINAL DX: PRINCIPAL: K81.1 Chronic cholecystitis SECONDARY: K82.8 Other specified diseases of gallbladder F41.9 Anxiety disorder, unspecified PYMT PROC APC STAT DESCRIPTION DOCTOR NAME DATE 50363 5361 J1 Laparoscopy, surgical; Aiden IZQUIERDO MD 05/10/2020 cholecystectomy with cholangiography 51082 Anesthesia for Rodrigue Berry DOBakari 05/10/2020 intraperitoneal procedures in upper abdomen including laparoscopy; not otherwise specified NOTE: The code number assigned matches the documented diagnosis and / or procedure in the patient's chart. However, the narrative phrase printed from the coding software may appear abbreviated, or result in slightly different terminology. Revised Coded By: Eugenia Mae Revised Date Saved: 05/13/2020 02:09 pm [facility] Main OR Intraoperative Recor don 05-13-2020 Main OR Intraoperative Record IntraOp Document Type FT Summary Primary Physician: Aiden IZQUIERDO MD Finalized Date/Time: 05/13/20 11:07:53 Pt. Name: RAJIV TOVAR/Sex: 1995 Female Med Rec #: [id number] Physician: Aiden IZQUIERDO MD Financial #: [id number] Pt. Type: A Room/Bed: Admit/Disch: 05/10/20 07:43:57 - 05/10/20 15:00:00 Institution: Case Times FT Entry 1 Patient Times In Room 05/10/20 09:29:00 Out Room 05/10/20 10:27:00 Procedure Times Start 05/10/20 09:44:00 Stop 05/10/20 10:20:00 Anesthesia Times Start 05/10/20 09:29:00 Stop 05/10/20 10:27:00 Last Modified By: London TURNER, My Cummings 05/10/20 10:27:42 General Comments: 1011- configuration technician called dr. guo read xray dilated tapers distally can't exclude small stone possible spasm , Dr. Izquierdo stated understanding. - joan turner 05/13/2020 Chart opened to review and send charges. Angela Leavitt SHRIMP POND LABORER. Case Attendance FT Entry 1 Entry 2 Entry 3 Case Attendee Ankit AGUILAR, Linnea IZQUIERDO MD, Aiden ARAUJO MD, Ramandeep Cummings Role Performed Anesthesiologist Surgeon - Primary Surgeon - Assist 1 Director Of Database Marketing Time In 05/10/20 09:29:00 05/10/20 09:40:00 05/10/20 [...] TURNER, My Villalba RN, Bernadette Ortiz Cert. Liner Machine Operator Helper, Arlette Davila Role Performed Plush Dresser - Primary Scrub - Primary Scrub - [...] 7 Entry 8 Case Attendee Carlos MCLEAN, Kmi Kaufman RT(R), Magalie R Role Performed Scrub - Primary Wood Heel Cementer Time In 05/10/20 09:29:00 05/10/20 10:00:00 Time [...] Antibiotic No Time Out Ankit AGUILAR, Linnea Daly, TIMBO POLK, London Bray RN, Deejay Chowdhury RN, Angel Oglesby Liner Machine Operator Helper, Carlos Rock CST, Macie C Time Out Complete 05/10/20 09:44:00 Outcomes Met? [...] By: Artemio (more content not included)... [facility] Postoperative Documentson Postoperative Documents [id number]# 1.00CD:127 [facility] Progress Note-Physicianon Progress Note-Physician Patient: RAJIV [...] TID, # 10 tab(s), Refills(s) 0, Pharmacy: [facility]/pharmacy #[id number], 168, cm, 04/19/20 6:20:00 EDT, Height/Length Dosing, 58.5, kg, 04/19/20 6:20:00 EDT, Weight Dosing omeprazole 40 mg Cap-DR: 40 mg = 1 cap(s), Oral, Daily, # 30 cap(s), Refills(s) 2, Pharmacy: [facility]/pharmacy #[id number], 168, cm, 04/20/20 10:06:00 EDT, Height/Length Dosing, 59.5, kg, 04/20/20 10:06:00 EDT, Weight Dosing Documented Medications Documented desvenlafaxine 100 mg Tab-: 100 mg = 1 tab(s), Oral, Daily, Refills(s) 0, Depression Problem list: All Problems Biliary dyskinesia / SNOMED CT 263604396 / Confirmed Depression / SNOMED CT 78545025 / Confirmed Histories Past Medical History: No active or resolved past medical history items have been selected or recorded. Family History: Entire family history is negative. Procedure history: EGD (esophagogastroduoden oscopy) gastric outlet reduction (8714512383) on 04/29/2020 at 25 Years. section (83646270) on 07/23/2019 at 24 Years. Sinus (1421758674). Nasal cautery (786556024). Ankle (2909440). Comments: 05/10/2020 8:24 EST - Kluding MAINTENANCE INSPECTOR, Bernarda Bilateral ankle stabilazation for flat feet Diagnostic laparoscopy (675053292). Comments: 05/10/2020 8:26 EST - Kluding MAINTENANCE INSPECTOR, Bernarda ovarian cyst drained Social History Social & Psychosocial Habits Alcohol 04/19/2020 Use: Current Comment: [place] - 04/19/2020 06:50 - Faith TURNER, Christiana Davila Substance Abuse 04/19/2020 Use: Current Comment: [place] [...] EST Heart (more content not included)... [facility] Comment on above: Result Comment: Elec [...] All Problems Biliary dyskinesia / SNOMED CT 740843761 / Confirmed Depression / SNOMED CT 93213917 / Confirmed Physical Examination Vital Signs 05/10/2020 [...] 8:11 EST Apic (more content not included)... [facility] Comment on above: Result Comment: Elec tronically Signed By: Bakari Husain Jr, DO\.ilana\Date and Time Signed: 05/13/20 13:20 EST Coding Summary.on 05-12-2020 Coding Summary. CODING DATE: 05/12/2020 FINAL [facility] STATUS: Home (Routine DC) PAYOR: Reba ADMIT [...] Jaquez CphT Date Saved: 05/12/2020 09:53 pm [facility] Consent for Anesthesiaon Consent for Anesthesia [id number]# 1.00CD:127 [facility] Discharge Instructionson Discharge Instructions [id number]# 1.00CD:127 [facility] IntraOperative Documentson 1 07-11-2019 IntraOperative Documents [id number]# 1.00CD:127 [facility] Operative Reporton 0 Operative Report Date of Surgery: 05/10/2020 SURGEON: Aiden Izquierdo MD, FACS IP/MOSAIC TECHNICIAN: Ramandeep Araujo MD, FACS PREOPERATIVE DIAGNOSIS: Chronic [...] Aiden Izquierdo MD, FACS lkr Dictated: 05/10/2020 #[id number] Typed: 05/10/2020 #[id number] cc: Alon Weber M.D. Aiden Izquierdo MD, FACS [facility] Comment on above: Result Comment: Elec tronically Signed By: TIMBO POLK, Aiden Davila\.br\Date and Time Signed: 05/11/20 08:04 EST Preoperative Documentson Preoperative Documents [id number]# 1.00CD:127 [facility] Preoperative Documents [id number]# 1.00CD:127 [facility] Consent for Treatmenton 04-24 Consent for Treatment [id number]#1 .00CD:127 [facility] Inpatient Patient Summaryon 05-10-2020 Inpatient Patient Summary [address] [address] [facility] Clinical Discharge Instructions PERSON INFORMATION Name: RAJIV TOVAR [facility]#:[id number] PHYSICIANS Admitting Physician: Aiden IZQUIERDO MD Attending Physician: Aiden IZQUIERDO MD PCP: Alon Weber MD Discharge Diagnosis: Chronic cholecystitis with calculus Comment: PATIENT EDUCATION INFORMATION Instructions: Post Op Patient Instructions - FT (CUSTOM); How to Use an Incentive Spirometer; Timbo - Post Op Instructions (CUSTOM) Medication Leaflets: Follow up: With: Address: When: Aiden IZQUIERDO [address] [place] [address] Panopto (1) Within 7 to 10 days Comments: Call for any problems. Call for followup appointment Type Location Start [facility] Follow Up [facility] 05/16/2020 1:00 PM 05/16/2020 1:15 PM Confirmed MEDICATION LIST Medications to Continue with No Changes Other Medications desvenlafaxine (desvenlafaxine 100 mg Tab-) 1 Tablets By Mouth every day. omeprazole (omeprazole 40 mg Cap-DR) 1 Capsules By Mouth every day. Refills: 2. ondansetron (Zofran ODT 4 mg Tab) 1 Tablets By Mouth 3 times a day. Refills: 0. Comment: [facility] IntraOperative Documentson 07-10-2019 IntraOperative Documents [id number]# 1.00CD:127 [facility] Main OR PACU I Recordon 04-24 Main OR PACU I Record PACU Phase I Document Type FT Summary Primary Physician: Aiden IZQUIERDO MD Finalized Date/Time: 05/10/20 11:13:04 Pt. Name: RAJIV TOVAR/Sex: 1995 Female Med Rec #: [id number] Physician: Aiden IZQUIERDO MD Financial #: [id number] Pt. Type: A Room/Bed: Admit/Disch: 05/10/20 07:43:57 [...] By: Belkys Yarbrough RN 05/10/20 11:13 Normal [facility] Main OR PACU II Recordon Main OR PACU II Record PACU Phase II Document Type FT Summary Primary Physician: Aiden IZQUIERDO MD Finalized Date/Time: 05/10/20 15:45:07 Pt. Name: RAJIV TOVAR/Sex: 1995 Female Med Rec #: [id number] Physician: Aiden IZQUIERDO MD Financial #: [id number] Pt. Type: A Room/Bed: / Admit/Disch: 05/10/20 07:43:57 - Institution: Case Times [...] Signed By: Marcelina Cadet RN 05/10/20 15:45 [facility] Main OR Preoperative Recordo n 05-10-2020 Main OR Preoperative Record PreOp Document Type FT Summary Primary Physician: Aiden IZQUIERDO MD Finalized Date/Time: 05/10/20 10:00:50 Pt. Name: RAJIV TOVAR /Sex: 1995 Female Med Rec #: [id number] Physician: Aiden IZQUIERDO MD Financial #: [id number] Pt. Type: A Room/Bed: [facility] Admit/Disch: 05/10/20 07:43:57 - Institution: Case Times [...] By: My Callahan RN 05/10/20 10:00 [facility] Monitor Recordon 05-10-2020 Monitor Record [id number]# 1.00CD:127 [facility] Outpatient Surgery Discharge Instructionon 05-10-2020 Outpatient Surgery Discharge Instruction [place] [address] Patient Discharge Instructions PERSON INFORMATION Name: RAJIV [...] Follow up: With: Address: When: [facility]il[facility] [address] [place] [address] [facility] () Within 7 to 10 days Comments: Call for any problems. Call for followup appointment Type Location [facility] Follow Up [facility] 05/16/2020 1:00 PM 05/16/2020 1:15 PM Confirmed Pharmacy Information: Thank you for choosing [facility] HERE ARE THE MEDICATION CHANGES THAT [...] ? If the spirometer includes a head men's golf coach indicator, use this to guide [...] from co (more content not included)... [facility] Patient Education - Texton 1 07-10-2019 [...] ? If the spirometer includes a head men's golf coach indicator, use this to guide [...] 10/21/2007 Document Revised: 07/03/2018 Document Reviewed: 04/23/2018 [employer] Patient Education ? 2019 [employer] [place], [place] Aiden Izquierdo MD, FACS POST OPERATIVE [...] or r (more content not included)... [facility] Progress Note-Physicianon Progress Note-Physician Patient: RAJIV TOVAR Age: 25 years Sex: Female : 1995 Associated Diagnoses: None Author: Aiden IZQUIERDO MD Postoperative Information Date/ Time: 05/10/2020 10:26:00 Preoperative Diagnosis: Chronic cholecystitis with calculus ([id number] K80.10, Working, Medical). Postoperative Diagnosis: Same pending pathology. Procedure: Laparoscopic Cholecystectomy with intraoperative chloangiogram. Performed by: Aiden Izquierdo MD. Director Of Database Marketing: Ramandeep Araujo MD. Specimens Removed: Gallbladder. Estimated Blood Loss: 5 ml. Complications: None. [facility] Comment on above: Result Comment: Elec tronically Signed By: Aiden IZQUIERDO MD\.br\Date and Time Signed: 05/10/20 10:27 EST Progress Note-Physician Patient: RAJIV TOVAR Age: 25 years Sex: Female : 1995 Associated Diagnoses: None Author: Aiden IZQUIERDO MD Basic Information No change in History and Physical [facility] Comment on above: Result Comment: Elec [...] ALSO POSSIBLE. CLINICAL HISTORY: Cholelithiasis. COMMENT: Limited schmp-sn-btvh C-arm images were obtained in the OR, [...] Dose: Evaserenity in mGy = 3.4 [facility] Coding Summary.on 05-08-2020 Coding Summary. CODING DATE: 05/07/2020 FINAL [facility] STATUS: Home (Routine DC) PAYOR: [place] ADMIT DX: REASON FOR VISIT DX: Z01.812 [...] CphT Date Saved: 05/07/2020 10:24 pm [facility] Coding Summary.on 05-05-2020 Coding Summary. CODING DATE: 05/05/2020 FINAL [facility] STATUS: Home (Routine DC) PAYOR: Reba APC DESCRIPTION 5301 Level 1 Upper GI Procedures ADMIT DX: REASON FOR VISIT DX: R10.13 Epigastric pain FINAL DX: PRINCIPAL: R10.13 Epigastric pain SECONDARY: R10.11 Right upper quadrant pain F41.9 Anxiety disorder, unspecified PYMT PROC APC STAT DESCRIPTION DOCTOR NAME DATE 49040 5301 Ezequiel WEST MD 04/29/2020 phagogastroduodenosco py, flexible, transoral; with biopsy, single or multiple [id number] Anesthesia for upper Husain Bakari Berry DO [...] Mae Revised Date Saved: 05/05/2020 11:48 am [facility] Consent for Procedure/Surger yon 05-05-2020 Consent for Procedure/Surgery [id number]#1 .00CD:127 [facility] Formson 05-05-2020 Forms [id number]#1 .00CD:127 [facility] Priority Order-Mitchell 2019 Priority Order-STAT Comment Invalid Interpretation Code [facility] Comment on above: Result Comment: Rece ived Performed at: [facility] [address] [facility], [place] [id number] [facility] Johanny Lozano Performed By: #### 2 [id number], SARS-CoV-2, MARY #### [facility] [address] [place] [address] SARS-CoV-2, NAAon 05-05-2020 SARS-CoV-2 (COVID-19) RNA MARY+probe Ql (Resp) Not detected Invalid Interpretation Code Not Detected [facility] Comment on above: Result Comment: This nucleic acid amplification test was developed and its performance characteristics determined by [employer]. Nucleic acid amplification tests include PCR and [...] detected) result in this assay. Performed at: [facility] [address], [place] [id number] MD Indira Washington Performed By: #### 2 [id number], SARS-CoV-2, MARY #### [facility] [address] [place] [address] B hCG Qualon 05-04-2020 Beta hCG Ql Negative [facility] Comment on above: Performed By: #### 2 [id number] #### [facility] [address] [place] [address] CBC w/Indiceson 05-04-2020 Erythrocyte distribution width (RBC) [Ratio] 13.1 % Normal 10.9-14.2 [facility] Comment on above: Performed By: #### 2 633152, 9390610 ####[address] [address] Hematocrit (Bld) [Volume fraction] 40.5 % Normal 34.0-46.0 [facility] Comment on above: Performed By: #### 2 904539, 1105407 ####[address] [address] Hemoglobin (Bld) [Mass/Vol] 14.0 g/dL Normal 12.0-16.0 [facility] Comment on above: Performed By: #### 2 432967, 5256342 ####[address] [address] MCH (RBC) [Entitic mass] 31.0 pg Normal 27.0-34.0 [facility] Comment on above: Performed By: #### 2 804723, 4455332 ####[address] [address] MCHC (RBC) [Mass/Vol] 34.6 g/dL Normal 31.4-36.0 [facility] Comment on above: Performed By: #### 2 112493, 1985302 ####[address] [address] MCV (RBC) [Entitic vol] 89.7 fL Normal 80.0-100.0 [facility] Comment on above: Performed By: #### 2 841841, 9691217 ####[address] [address] Platelet mean volume (Bld) [Entitic vol] 9.1 fL Normal 6.4-10.8 [facility] Comment on above: Performed By: #### 2 583708, 5663935 ####[address] [address] Platelets (Bld) [#/Vol] 245.0 E9/L Normal 150.0-500.0 [facility] Comment on above: Performed By: #### 2 872932, 7184469 ####[facility] [address] [place] [address] RBC (Bld) [#/Vol] 4.5 E12/L Normal 4.3-5.9 [facility] Comment on above: Performed By: #### 2 938808, 7742612 ####[address] [address] WBC corrected for nucl RBC Auto (Bld) [#/Vol] 5.6 E9/L Normal 4.0-11.0 [facility] Comment on above: Performed By: #### 2 512150, 8717349 ####[address] [address] Consent for Treatmenton 04-24 Consent for Treatment [id number]#1 .00CD:127 [facility] Hep Func Panelon 05-04-2020 Albumin [Mass/Vol] 4.2 g/dL Normal 3.3-5.0 [facility] Comment on above: Order Comment: if no t already done. Performed By: #### 2 775638, 9605843 ####[address] [address] Albumin/Globulin (S) [Mass conc ratio] 1.4 Normal 1.1-2.2 [facility] Comment on above: Order Comment: if no t already done. Performed By: #### 2 199817, 8491479 ####[address] [address] ALP [Catalytic activity/Vol] 112 Int._Unit/L High 21-98 [facility] Comment on above: Order Comment: if no t already done. Performed By: #### 2 465323, 2889413 ####[facility] [address] [place] [address] ALT No additional P-5'-P [Catalytic activity/Vol] 129 Int._Unit/L High 6-46 [facility] Comment on above: Order Comment: if no t already done. Performed By: #### 2 188343, 5297128 ####[facility] [address] [place] [address] AST [Catalytic activity/Vol] 28 Int._Unit/L Normal 5-43 [facility] Comment on above: Order Comment: if no t already done. Performed By: #### 2 599714, 1745483 ####[facility] [address] [place] [address] Bilirubin [Mass/Vol] 0.7 mg/dL Normal 0.0-1.1 [facility] Comment on above: Order Comment: if no t already done. Performed By: #### 2 171137, 1926853 ####[address] [address] Bilirubin.direct [Mass/Vol] 0.1 mg/dL Normal 0.1-0.4 [facility] Comment on above: Order Comment: if no t already done. Performed By: #### 2 568678, 1815514 ####[address] [address] Bilirubin.indirect [Mass or moles/Vol] 0.6 mg/dL Normal 0.1-0.9 [facility] Comment on above: Order Comment: if no t already done. Performed By: #### 2 912500, 8729063 ####[facility] [address] [place] [address] Globulin (S) [Mass/Vol] 3.1 g/dL Normal 1.4-4.0 [facility] Comment on above: Order Comment: if no t already done. Performed By: #### 2 628489, 6019317 ####[facility] [address] [place] [address] Protein [Mass/Vol] 7.3 g/dL Normal 6.0-7.8 [facility] Comment on above: Order Comment: if no t already done. Performed By: #### 2 628778, 8318805 ####[facility] [address] [place] [address] Ambulatory Clinical Summaryo n 11-10-2020 Ambulatory Clinical Summary {[id number]-[id number]-97 -4c-b4}CD:[id number] [facility] Consent for Procedure/Surger yon 05-03-2020 Consent for Procedure/Surgery [id number]#1 .00CD:127 [facility] Consent for Procedure/Surgery [id number] .00CD:127 [facility] Formson 05-03-2020 Forms [id number]#1 .00CD:127 [facility] Forms [id number]#1 .00CD:127 [facility] Physician Orderon 05-03-2020 Physician Order [id number]#1 .00CD:127 [facility] Physician Referralon 020 Physician Referral [id number]#1 .00CD:127 [facility] Postoperative Documentson Postoperative Documents [id number]# 1.00CD:127 [facility] Progress Note-Physicianon Progress Note-Physician Patient: RAJIV [...] TID, # 10 tab(s), Refills(s) 0, Pharmacy: [facility]/pharmacy #[id number], 168, cm, 04/19/20 6:20:00 EDT, Height/Length Dosing, 58.5, kg, 04/19/20 6:20:00 EDT, Weight Dosing omeprazole 40 mg Cap-DR: 40 mg = 1 cap(s), Oral, Daily, # 30 cap(s), Refills(s) 2, Pharmacy: [facility]/pharmacy #[id number], 168, cm, 04/20/20 10:06:00 EDT, Height/Length [...] Use: Current Comment: Denies - 04/19/2020 06:50 Christiana Yee RN Substance Abuse 04/19/2020 Use: Current Comment: Denies - 04/19/2020 06:50 Christiana Yee RN Tobacco 04/19/2020 Tobacco Use: Never (less than 100 in l Type: Cigarettes 04/20/2020 Tobacco Use: Never (less than 100 in l . Physical Examination Airway: Mallampati classification: II (soft palate, fauces, uvula visible). Respiratory: Lungs are clear to auscultation. Cardiovascular: Regular rhythm. Neurologic: Alert, Oriented. Plan [place] [employer] Anesthesiologists (ASA) physical status classification: Class II. Anesthetic Preoperative Plan Anesthesia: General. . Anesthetic plan, risks, benefits, and alternatives discussed with the patient and/or family. Communication: face to face with (patient 5 minutes, Patient educated on smoking cesstation). [facility] Comment on above: Result Comment: Elec [...] vomiting. Plan Transfer/ Discharge: Condition stable. [facility] Comment on above: Result Comment: Elec tronically Signed By: Bakari Husain Jr, DO\hammad\Date and Time Signed: 05/03/20 09:37 EST Consenton 05-02-2020 Consent [id number] .00CD:127 [facility] Discharge Instructionson Discharge Instructions [id number]#1 .00CD:127 [facility] General Surgery Office/Clini c Noteon 05-02-2020 [...] Contact Information TIMBO POLK, Aiden Davila [address] [facility] [address] [place] [address]- Additional Instructions: F/U POST OP. [...] Family History Family history is negative [facility] Comment on above: Result Comment: Elec tronically Signed By: Aiden IZQUIERDO MD\.br\Date and Time Signed: 05/02/20 15:39 EST\.br\Electronically Co-Signed By: Mildred Cook MA.br\Date and Time Co-Signed: 05/02/20 15:25 EST IntraOperative Documentson 1 07-02-2019 IntraOperative Documents [id number] .00CD:127 [facility] IntraOperative Documents [id number] .00CD:127 [facility] Main OR Intraoperative Recor don 05-02-2020 Main OR Intraoperative Record IntraOp Document Type FT Summary Primary Physician: Ezequiel MARTINEZ MD Finalized Date/Time: 05/02/20 08:23:39 Pt. Name: RAJIV TOVAR/Sex: 1995 Female Med Rec #: [id number] Physician: Ezequiel MARTINEZ MD Financial #: [id number] Pt. Type: O Room/Bed: / Admit/Disch: 04/29/20 10:12:58 - 04/29/20 23:59:59 Institution: Case Times FT Entry 1 Patient Times In Room 04/29/20 10:52:00 Out Room 04/29/20 11:04:00 Procedure Times Start 04/29/20 10:56:00 Stop 04/29/20 10:59:00 Anesthesia Times Start 04/29/20 10:52:00 Stop 04/29/20 11:04:00 Last Modified By: Russell Maloney RN 04/29/20 11:04:12 General Comments: 05/02/2020 Chart opened to review and send charges. F Dagmar [employer]. Case Attendance FT Entry 1 Entry 2 Entry 3 Case Attendee Rodrigue Berry DO, Bakari MARTINEZ MD, Ezequiel Maloney RN, Russell Caanda Role Performed Anesthesiologist of Surgeon - Primary Plush Dresser - Primary Record Time In 04/29/20 10:52:00 04/29/20 10:52:00 04/29/20 10:52:00 Time Out 04/29/20 11:04:00 04/29/20 11:04:00 04/29/20 11:04:00 Procedure EGD(.) EGD(.) EGD(.) Comments Last Modified By: Haider TURNER, Russell Maloney RN, Russell Santos RN 04/29/20 11:04:13 04/29/20 11:04:13 04/29/20 11:04:13 Entry 4 Entry 5 Entry 6 Case Attendee Mere TURNER, Charlotte Roberts CST, Aria Role Performed Plush Dresser - Primary Scrub - Primary Staff - [...] Outcomes Met? Yes Last Modified By: Russell Maloeny RN 04/29/20 07:13:03 Post-Care Text: The patient [...] Arm P (more content not included)... [facility] Ezequiel Martinez M.D. [address] [place] [address] Re: RAJIV TOVAR Date of : 1995 [...] report following her procedure. Sincerely Aiden Kaplan [facility] Coding Summary.on 04-30-2020 Coding Summary. CODING DATE: 04/29/2020 FINAL [facility] STATUS: Home (Routine DC) PAYOR: [place] ADMIT DX: REASON FOR VISIT DX: Z01.812 [...] Jaquez CphT Date Saved: 04/29/2020 11:14 pm [facility] Consent for Treatmenton Consent for Treatment [id number] .00CD:127 [facility] Endoscopic Procedure Report - Otheron 04-29-2020 [...] surgery for right upper quadrant pain/cholelithiasis [facility] Comment on above: Result Comment: Elec tronically Signed By: Ezequiel MARTINEZ MD\.br\Date and Time Signed: 04/29/20 11:03 EST Other Comment: Lorri frazier Attachment - attachment storage system not supported [id number] Can be viewed in source systemMissing Attachment - attachment storage system not supported [id number] Can be viewed in source systemMissing Attachment - attachment storage system not supported [id number] Can be viewed in source systemMissing Attachment - attachment storage system not supported [id number] Can be viewed in source systemMissing Attachment - attachment storage system not supported [id number] Can be viewed in source system Inpatient Patient Summaryon 04-29-2020 Inpatient Patient Summary [address] [address] [facility] Clinical Discharge Instructions PERSON INFORMATION Name: RAJIV TOVAR [facility]#:[id number] PHYSICIANS Admitting Physician: Ezequiel MARTINEZ MD Attending Physician: Ezequiel MARTINEZ MD PCP: Alon Weber MD Discharge Diagnosis: Abdominal pain Comment: PATIENT EDUCATION INFORMATION Instructions: Medication Leaflets: Follow up: With: Address: When: Aiden IZQUIERDO [address], [address] [place] [address] Business (1) With: Address: When: Ezequiel Sparrow [facility] [address] [place] [address] Within 2 weeks Type Location Start [facility] Follow Up [facility] 05/16/2020 1:00 PM 05/16/2020 1:15 PM Confirmed [...] times a day. Refills: 0. Comment: [facility] Main OR PACU I Recordon Main OR PACU I Record PACU Phase I Document Type FT Summary Primary Physician: Ezequiel MARTINEZ MD Finalized Date/Time: 04/29/20 12:13:51 Pt. Name: RAJIV TOVAR/Sex: 1995 Female Med Rec #: [id number] Physician: Ezequiel MARTINEZ MD Financial #: [id number] Pt. Type: O Room/Bed: / Admit/Disch: 04/29/20 [...] By: Belkys Yarbrough RN 04/29/20 12:13 [facility] Main OR Preoperative Recordo n 04-29-2020 Main OR Preoperative Record Holding Area Document Type FT Summary Primary Physician: Ezequiel MARTINEZ MD Finalized Date/Time: 04/29/20 10:21:44 Pt. Name: RAJIV TOVAR/Sex: 1995 Female Med Rec #: [id number] Physician: Ezequiel MARTINEZ MD Financial #: [id number] Pt. Type: O Room/Bed: / Admit/Disch: 04/29/20 [...] By: Marielle Pineda RN 04/29/20 10:21 [facility] Monitor Recordon 04-29-2020 Monitor Record [id number]# 1.00CD:127 [facility] Outpatient Surgery Discharge Instructionon 04-29-2020 Outpatient Surgery Discharge Instruction [place] [id number] Patient Discharge Instructions PERSON INFORMATION Name: RAJIV [...] Aiden IZQUIERDO [address], [address] [place] [address] Business (1) With: Address: When: [facility] [address], [facility] [place] [address] Within 2 weeks Type Location Start [facility] Follow Up [facility] 05/16/2020 1:00 PM 05/16/2020 1:15 PM Confirmed Pharmacy Information: Thank you for choosing [facility] HERE ARE THE MEDICATION CHANGES THAT [...] Refills: 0. PATIENT EDUCATION INFORMATION Instructions: [facility] Patient Education - Texton 1 06-29-2019 Patient Education - Text [facility] Priority Order-Mitchell 2019 Priority Order-STAT Comment Invalid Interpretation Code [facility] Comment on above: Result Comment: Rece ived Performed at: [facility] [address] [place], [place] [id number] MD Indira Washington Performed By: #### 2 [id number], SARS-CoV-2, MARY #### [facility] [address] [place] [address] SARS-CoV-2, NAAon 04-23-2020 SARS-CoV-2 (COVID-19) RNA MARY+probe Ql (Resp) Not detected Invalid Interpretation Code Not Detected [facility] Comment on above: Result Comment: This nucleic acid amplification test was developed and its performance characteristics determined by [employer]. Nucleic acid amplification tests include PCR and [...] detected) result in this assay. Performed at: [facility] [address] [place], [place] [id number] MD Indira Washington Performed By: #### 2 [id number], SARS-CoV-2, MARY #### [facility] [address] [place] [address] Ambulatory Clinical Summaryo n 04-20-2020 Ambulatory Clinical Summary {[id number]}CD:[id number] [facility] Coding Summary.on 04-20-2020 Coding Summary. CODING DATE: 04/20/2020 FINAL [facility] STATUS: Home (Routine DC) PAYOR: Reba [...] Revised Date Saved: 04/20/2020 07:55 am [facility] Consent for Procedure/Surger yon 04-20-2020 Consent for Procedure/Surgery [id number]#1 .00CD:127 [facility] Gastroenterology Office/Clin ic Noteon 04-20-2020 Gastroenterology Office/Clinic Note Chief Complaint f/u to ER RUQ HPI Staff This is a 24 year old female who presents today for a follow up for an ED visit for RUQ pain. History of Present Illness 24 years old white female with no significant past medical history except for anxiety, referred to me from [facility] ER to be evaluated for right upper quadrant abdominal pain, she reports right upper quadrant abdominal pain, started 6 weeks ago, sporadic, moderate in nature except for the last time when it was severe for which she went to [facility] ER, she had normal CBC, CMP and [...] Daily, # 30 cap(s), Refills(s) 2, Pharmacy: [facility]/pharmacy #[id number], 168, cm, 04/20/20 10:06:00 EDT, Height/Length Dosing, 59.5, kg, 04/20/20 10:06:00 EDT, Weight Dosing EGD Endoscopy (Hospital Procedure) 2. Anxiety (F41.9: Anxiety disorder, unspecified) 3. Nausea (R11.0: Nausea) Ordered: omeprazole, 40 mg = 1 cap(s), Oral, Daily, # 30 cap(s), Refills(s) 2, Pharmacy: [facility]/pharmacy #[id number], 168, cm, 04/20/20 10:06:00 EDT, Height/Length Dosing, 59.5, kg, 04/20/20 10:06:00 EDT, Weight Dosing EGD Endoscopy (Hospital Procedure) Follow-up With When Contact Information Ezequiel MARTINEZ MD Within 2 weeks [facility] [address] [place] [address] [place] [address]- Additional Instructions: Patient Education Abdominal Pain Abdominal [...] Family History Family history is negative [facility] Comment on above: Result Comment: Elec [...] directed by your caregiver. ? Only take csuh-dzu-zsnysoj or prescription medicines for pain, discomfort, or [...] Document Reviewed: 01/26/2009 ExitCare? Patient Information ?2013 [facility]. Family Medicine Abdominal Pain Abdominal pain can [...] directed by your caregiver. ? Only take licg-xcj-jmcfdab or prescription medicines for pain, discomfort, or [...] Document Reviewed: 01/26/2009 ExitCare? Patient Information ?2013 [employer]. [facility] Physician Orderon 04-20-2020 Physician Order [id number]# 1.00CD:127 [facility] Physician Order [id number]#1. 00CD:127 [facility] Auto Diffon 04-19-2020 Basophils/100 WBC (Bld) 0.6 % Normal 0.0-2.0 [facility] Comment on above: Order Comment: Order Added by Discern Expert. Performed By: #### 2 [id number] #### [facility] [address] [place] [address] Basophils/Leukocytes Auto (Bld) [Pure # fraction] 0.0 E9/L Normal 0.0-0.2 [facility] Comment on above: Order Comment: Order Added by Discern Expert. Performed By: #### 2 [id number] #### [facility] [address] [place] [address] Eosinophils/100 WBC (Bld) 0.2 % Normal 0.0-8.0 [facility] Comment on above: Order Comment: Order Added by Discern Expert. Performed By: #### 2 [id number] #### [facility] [address] [place] [address] Eosinophils/Leukocyt es Auto (Bld) [Pure # fraction] 0.0 E9/L Normal 0.0-0.5 [facility] Comment on above: Order Comment: Order Added by Discern Expert. Performed By: #### 2 [id number] #### [facility] [address] [place] [address] Lymphocytes/100 WBC (Bld) 34.4 % Normal 14.0-50.0 [facility] Comment on above: Order Comment: Order Added by Discern Expert. Performed By: #### 2 [id number] #### [facility] [address] [place] [address] Lymphocytes/Leukocyt es Auto (Bld) [Pure # fraction] 2.5 E9/L Normal 1.0-4.0 [facility] Comment on above: Order Comment: Order Added by Discern Expert. Performed By: #### 2 [id number] #### [facility] [address] [place] [address] Monocytes/100 WBC (Bld) 6.1 % Normal 4.0-14.0 [facility] Comment on above: Order Comment: Order Added by Discern Expert. Performed By: #### 2 [id number] #### [facility] [address] [place] [address] Monocytes/Leukocytes Auto (Bld) [Pure # fraction] 0.4 E9/L Normal 0.2-1.0 [facility] Comment on above: Order Comment: Order Added by Discern Expert. Performed By: #### 2 [id number] #### [facility] [address] [place] [address] Neutrophils/100 WBC (Bld) 58.7 % Normal 36.0-75.0 [facility] Comment on above: Order Comment: Order Added by Discern Expert. Performed By: #### 2 [id number] #### [facility] [address] [place] [address] Neutrophils/Leukocyt es Auto (Bld) [Pure # fraction] 4.2 E9/L Normal 2.0-7.5 [facility] Comment on above: Order Comment: Order Added by Discern Expert. Performed By: #### 2 [id number] #### [facility] [address] [place] [address] BMPon 04-19-2020 Creatinine [Mass/Vol] 0.8 mg/dL Normal 0.5-1.3 [facility] Comment on above: Performed By: #### 2 [id number] #### [facility] [address] [place] [address] Urea nitrogen [Mass/Vol] 12 mg/dL Normal 5-21 [facility] Comment on above: Performed By: #### 2 [id number] #### [facility] [address] [place] [address] Urea nitrogen/Creatinine [Mass ratio] 15 No Units Normal 10-20 [facility] Comment on above: Performed By: #### 2 [id number] #### [facility] [address] [place] [address] Anion gap [Moles/Vol] 11 mmol/L Normal 6-16 [facility] Comment on above: Performed By: #### 2 [id number] #### [facility] [address] [place] [address] Calcium [Mass/Vol] 9.7 mg/dL Normal 8.9-11.1 [facility] Comment on above: Performed By: #### 2 [id number] #### [facility] [address] [place] [address] Chloride [Moles/Vol] 103 mmol/L Normal 101-111 [facility] Comment on above: Performed By: #### 2 [id number] #### [facility] [address] [place] [address] CO2 [Moles/Vol] 27 mmol/L Normal 21-[address] [facility] Comment on above: Performed By: #### 2 [id number] #### [facility] [address] [place] [address] Glucose [Mass/Vol] 97 mg/dL Normal 55-199 [facility] Comment on above: Result Comment: If t his glucose result represents a fasting glucose, interpretation should refer to the following reference range: 55-99 mg/dL Performed By: #### 2 [id number] #### [facility] [address] [place] [address] Potassium [Moles/Vol] 3.5 mmol/L Normal 3.5-5.3 [facility] Comment on above: Performed By: #### 2 [id number] #### [facility] [address] [place] [address] Sodium [Moles/Vol] 137 mmol/L Normal 135-145 [facility] Comment on above: Performed By: #### 2 [id number] #### [facility] [address] [place] [address] CBC w/ Auto Diffon Erythrocyte distribution width (RBC) [Ratio] 13.3 % Normal 10.9-14.2 [facility] Comment on above: Performed By: #### 2 [id number] #### [facility] [address] [place] [address] Hematocrit (Bld) [Volume fraction] 37.6 % Normal 34.0-46.0 [facility] Comment on above: Performed By: #### 2 [id number] #### [facility] [address] [place] [address] Hemoglobin (Bld) [Mass/Vol] 13.4 g/dL Normal 12.0-16.0 [facility] Comment on above: Performed By: #### 2 [id number] #### [facility] [address] [place] [address] MCH (RBC) [Entitic mass] 31.9 pg Normal 27.0-34.0 [facility] Comment on above: Performed By: #### 2 [id number] #### [facility] [address] [place] [address] MCHC (RBC) [Mass/Vol] 35.7 g/dL Normal 31.4-36.0 [facility] Comment on above: Performed By: #### 2 [id number] #### [facility] [address] [place] [address] MCV (RBC) [Entitic vol] 89.2 fL Normal 80.0-100.0 [facility] Comment on above: Performed By: #### 2 [id number] #### [facility] [address] [place] [address] Platelet mean volume (Bld) [Entitic vol] 9.4 fL Normal 6.4-10.8 [facility] Comment on above: Performed By: #### 2 [id number] #### [facility] [address] [place] [address] Platelets (Bld) [#/Vol] 219.0 E9/L Normal 150.0-500.0 [facility] Comment on above: Performed By: #### 2 [id number] #### [facility] [address] [place] [address] RBC (Bld) [#/Vol] 4.2 E12/L Low 4.3-5.9 [facility] Comment on above: Performed By: #### 2 [id number] #### [facility] [address] [place] [address] WBC corrected for nucl RBC Auto (Bld) [#/Vol] 7.2 E9/L Normal 4.0-11.0 [facility] Comment on above: Performed By: #### 2 [id number] #### [facility] [address] [place] [address] Consent for Treatmenton 03-25 Consent for Treatment [id number]#1 .00CD:127 Normal [facility] Discharge Instructionson Discharge Instructions [id number]# 1.00CD:127 Normal [facility] ED Clinical Summaryon 2019 ED Clinical Summary [address] [address] ED Clinical Summary Person Information Name: RAJIV TOVAR/[facility] Age: 24 Years : 1995 Sex: Female Language: Romansh PCP: Alon Weber MD Marital Status: Single [...] 04/19/2020 08:58:55 04/19/2020 08:58:55 ADDRESS: [address] [facility] [id number] PHYS DOC NOTES: Addendum by Laureano Phillip DO on April 19, 2020 08:26:02 EDT MEDICAL INFORMATION: Prescriptions Given: New Medications [id number], [address], [place] [id number], [phone] dicyclomine (dicyclomine 20 mg Tab) 1 Tablets By Mouth 3 times a day for 7 Days. Refills: 0. ondansetron (Zofran ODT 4 mg Tab) 1 Tablets By Mouth 3 times a day. Refills: 0. PATIENT EDUCATION INFORMATION: Instructions: Cholelithiasis Follow up: With: Address: When: [facility], [address] [place] [address] Business (1) In 3 days 04/22/2020 DIAGNOSIS: 1:Abdominal pain; Biliary colic; Gall stone; Nausea Normal [facility] ED Note-Nursingon 04-19-2020 ED Note-Nursing Report received from Zacarias Cuevas RN. Patient resting on cart. Updated on plan of care. Denies any needs at this time. Call light in reach. Normal [facility] ED Note-Physicianon 04-19-20 20 ED Note-Physician [...] Diagnosis: Abdominal pain, cholelithiasis, biliary colic Normal [facility] Comment on above: Result Comment: Elec [...] medicine. HOME CARE INSTRUCTIONS ? Only take jswp-bjl-ddqvprp or prescription medicines for pain, discomfort, or [...] 02/10/2014 Document Reviewed: 12/02/2013 ExitCare? Patient Information ?2015 [employer]. This information is not intended to replace advice given to you by your health care provider. Make sure you discuss any questions you have with your health care provider. Normal [facility] ED Patient Summaryon 020 ED Patient Summary [address] [address] Patient Discharge Instructions Person Information Name: RAJIV TOVAR Age: 24 Years Arrival Date: 04/19/2020 06:10:12 Discharge Diagnosis: 1:Abdominal pain; Biliary colic; Gall stone; Nausea Primary Care Physician: Alon Weber MD Provider Information Primary Provider: Susana Belcher M.D. Advanced Commercial Fisherman:None The exam and treatment you received in the Emergency Department were for an urgent problem and are not intended as complete care. It is important that you follow up with a doctor, nurse practitioner, or physician?s metal forger's assistant for ongoing care. If your symptoms become worse or you do not improve as expected and you are unable to reach your usual health care provider, you should return to the Emergency Department. We are available 24 hours a day. RAJIV TOVAR has been given the following list of patient education materials, prescriptions and follow-up instructions: Follow-up Instructions: With: Address: When: [facility], [address] [place] [place] [address] Business (1) In 3 days 04/22/2020 In the event that this physician does not participate in your insurance network, please consult with your insurance company to find a nearby participating provider. Patient Education Materials: Cholelithiasis A MESSAGE TO ALL PATIENTS REGARDING OPIOIDS PRESCRIPTION OPIOIDS: WHAT YOU NEED TO KNOW Prescription opioids can be used to help relieve vphsatjb-jd-cbskrd pain and are often prescribed following a [...] be struggling with addiction, tell your health director of critical care and ask for guidance or call [facility] National Helpline at 8-007-5 (more content not included)... Normal [facility] Hep Func Panelon 04-19-2020 Bilirubin.indirect [Mass or moles/Vol] UTC Abnormal 0.1-0.9 [facility] Comment on above: Result Comment: Resu lt verified by Discern Rule. Performed result UTC (Unable to Calculate) was sent as an Alpha code due the inability to calculate a valid numeric value. Performed By: #### 2 [id number] #### [facility] [address] [place] [address] Albumin [Mass/Vol] 4.3 g/dL Normal 3.3-5.0 [facility] Comment on above: Performed By: #### 2 [id number] #### [facility] [address] [place] [address] Albumin/Globulin (S) [Mass conc ratio] 1.5 Normal 1.1-2.2 [facility] Comment on above: Performed By: #### 2 [id number] #### [facility] [address] [place] [address] ALP [Catalytic activity/Vol] 77 Int._Unit/L Normal 21-98 [facility] Comment on above: Performed By: #### 2 [id number] #### [facility] [address] [place] [address] ALT No additional P-5'-P [Catalytic activity/Vol] 59 Int._Unit/L High 6-46 [facility] Comment on above: Performed By: #### 2 [id number] #### [facility] [address] [place] [address] AST [Catalytic activity/Vol] 36 Int._Unit/L Normal 5-43 [facility] Comment on above: Performed By: #### 2 [id number] #### [facility] [address] [place] [address] Bilirubin [Mass/Vol] 0.4 mg/dL Normal 0.0-1.1 [facility] Comment on above: Performed By: #### 2 [id number] #### [facility] [address] [place] [address] Bilirubin.direct [Mass/Vol] mg/dL Normal 0.1-0.4 [facility] Comment on above: Performed By: #### 2 [id number] #### [facility] [address] [place] [address] Globulin (S) [Mass/Vol] 2.8 g/dL Normal 1.4-4.0 [facility] Comment on above: Performed By: #### 2 [id number] #### [facility] [address] [place] [address] Protein [Mass/Vol] 7.1 g/dL Normal 6.0-7.8 [facility] Comment on above: Performed By: #### 2 [id number] #### [facility] [address] [place] [address] Lipase Levelon 04-19-2020 Lipase [Catalytic activity/Vol] 43 U/L Normal 13-58 [facility] Comment on above: Performed By: #### 2 [id number] #### [facility] [address] [place] [address] PT & PTTon 04-19-2020 aPTT Coag (PPP) [Time] 30.2 second(s) Normal 25.1-36.5 [facility] Comment on above: Result Comment: Hepa rin therapeutic range (represented by Anti-Factor Xa activity of 0.2 - 0.4 U/mL) corresponds to PTT of 56.6 - 109.0 sec. Performed By: #### 2 [id number] #### [facility] [address] [place] [address] INR Coag (PPP) [Relative time] 1.0 {INR} Invalid Interpretation Code [facility] Comment on above: Result Comment: INR results are specifically intended to assess patients stabilized on long-term Anticoagulation therapy suggested INR?s ?Less Intensive Anticoagulation? 2.0 ? 3.0 Conventional Range 3.0 ? 4.5 Performed By: #### 2 [id number] #### [facility] [address] [place] [address] PT Coag (PPP) [Time] 11.8 second(s) Normal 10.2-12.9 [facility] Comment on above: Performed By: #### 2 [id number] #### [facility] [address] [place] [address] Prescriptions/Work Noteson 1 Prescriptions/Work Notes [id number]# 1.00CD:127 Normal [facility] U BetaHcg Qualon 04-19-2020 HCG.beta subunit (U) [Moles/Vol] Negative Normal [facility] Comment on above: Performed By: #### 2 [id number] #### [facility] [address] [place] [address] UA With Cult Reflexon 2019 Bacteria LM Ql (Urine sed) TRACE Normal Trace [facility] Comment on above: Performed By: #### 2 [id number] #### [facility] [address] [place] [address] Bilirubin Ql (U) Negative Normal Negative [facility] Comment on above: Performed By: #### 2 [id number] #### [facility] [address] [place] [address] Clarity (U) CLEAR Normal Clear [facility] Comment on above: Performed By: #### 2 [id number] #### [facility] [address] [place] [address] Color (U) YELLOW Normal Yellow [facility] Comment on above: Performed By: #### 2 [id number] #### [facility] [address] [place] [address] Crystals LM Ql (Urine sed) Present Normal [facility] Comment on above: Performed By: #### 2 [id number] #### [facility] [address] [place] [address] Epithelial cells.squamous LM.HPF (Urine sed) [#/Area] 3-4 Normal 0-2 [facility] Comment on above: Performed By: #### 2 [id number] #### [facility] [address] [place] [address] Glucose Test strip (U) [Mass/Vol] Negative Normal Negative [facility] Comment on above: Performed By: #### 2 [id number] #### [facility] [address] [place] [address] Hemoglobin Ql (U) TRACE Abnormal Negative [facility] Comment on above: Performed By: #### 2 [id number] #### [facility] [address] [place] [address] Ketones (U) [Mass/Vol] Negative Normal Negative [facility] Comment on above: Performed By: #### 2 [id number] #### [facility] [address] [place] [address] [place].plasma/Lithi um.RBC (Bld) [Mass ratio] 0-3 Normal 0-3 [facility] Comment on above: Performed By: #### 2 [id number] #### [facility] [address] [place] [address] Nitrite Ql (U) Negative Normal Negative [facility] Comment on above: Performed By: #### 2 [id number] #### [facility] [address] [place] [address] pH (U) 6.5 [pH] Invalid Interpretation Code 5.0-9.0 [facility] Comment on above: Performed By: #### 2 [id number] #### [facility] [address] [place] [address] Protein (U) [Mass/Vol] Negative Normal Negative [facility] Comment on above: Performed By: #### 2 [id number] #### [facility] [address] [place] [address] Specific gravity (U) [Rel density] 1.025 Invalid Interpretation Code 1.005-1.030 [facility] Comment on above: Performed By: #### 2 [id number] #### [facility] [address] [place] [address] UA Spec Desc Clean Catch Normal [facility] Comment on above: Performed By: #### 2 [id number] #### [facility] [address] [place] [address] Urobilinogen Qn (U) 0.2 {Arnie'U}/dL Normal 0.0-1.0 [facility] Comment on above: Performed By: #### 2 [id number] #### [facility] [address] [place] [address] WBC Auto Ql (U) Negative Normal Negative [facility] Comment on above: Performed By: #### 2 [id number] #### [facility] [address] [place] [address] WBC LM.HPF (Urine sed) [#/Area] 0-5 Normal 0-5 [facility] Comment on above: Performed By: #### 2 [id number] #### [facility] [address] [place] [address] US Abdomen, Limitedon 2019 US Abdomen, Limited [...] M.D. Transcribed by: OLGA Technologist: RENETTA Kaplan [facility] eGFRon 04-19-2020 GFR/1.73 sq M.predicted among blacks MDRD (S/P/Bld) [Vol rate/Area] mL/min/{1.73_m2} Normal >=59 [facility] Comment on above: Order Comment: Order added by Discern Expert. Result Comment: eGFR is race adjusted. AA=. Performed By: #### 2 [id number] #### [facility] [address] [place] [address] GFR/1.73 sq M.predicted among non-blacks MDRD (S/P/Bld) [Vol rate/Area] mL/min/{1.73_m2} Normal >=59 [facility] Comment on above: Order Comment: Order added by Discern Expert. Result Comment: Liner Machine Operator Helper bib kidney disease could be indicated at eGFR's of less than 60 mL/min/1.73m2. Kidney failure is indicated at less than 15 mL/min/1.73m2. Performed By: #### 2 [id number] #### [facility] [address] [place] [address] Encounters Encounter Date Encounter Type Care Provider Facility Start: 11-25-2023 End: 11-25-2023 ambulatory Harley Maldonado MD Facility: [facility] Start: 10-21-2023 End: 10-21-2023 ambulatory LEWIS SEWELL Not Available Start: 09-09-2023 End: 09-09-2023 ambulatory FLYNN ARCHIBALD Not Available Start: 08-22-2023 End: 08-22-2023 ambulatory FLYNN BLAKE Not Available Start: 08-08-2023 Bamboo flowsmena ledesma MD Work Phone: [facility] [...] [address] [place] [address] My Singh MD [address] [place] [address] [facility] Start: 08-22-2023 End: 08-22-2023 Patient encounter procedure 08/22/2023 11:50 AM EST Office Visit [facility] [address] [place] [id number] Flynn Archibald, DO [address] [place], [place] [id number] [facility] Payers Date Payer Category Payer Unknown [id number] 1995 Unknown [id number] 2.16.84 [id number] 1995 Unknown [id number] 2.16.84 [id number] 1995 Unknown [id number] 2.16.84 [id number] 1993 Unknown [id number] 2.16.84 0.1.244966.3.579.2.593 1995 Unknown [id number] 2.16.84 [id number] 1995 Unknown [id number] 2.16.84 0.1.541651.3.579.2.1259 1995 Unknown [id number] 2.16.84 0.1.271494.3.579.2.1259 1993 Unknown [id number] 2.16.84 0.1.077995.3.579.2.1259 1993 Unknown [id number] 2.16.84 0.1.979490.3.579.2.1259 1993 Unknown [id number] 2.16. [id number] 1961 Unknown [id number] Social History Date Type Detail Facility Tobacco smoking stat [facility] Tobacco smoking consumption unknown [facility] Start: 1995 Sex Assigned At Not on file [facility] Start: 08-08-2023 Gender identity Not on file [facility] Start: 08-08-2023 Tobacco smoking stat [facility] Never smoked tobacco [facility] Start: 08-08-2023 Tobacco use and exposure Smokeless t obacco non-user [facility] Start: 08-08-2023 History of Social function [facility] History [...] year (follow up) documented in this encounter [facility] Consultation note 07-18-2021 Note Date & [...] to proceed. CC: Dr. Alon Weber [facility] Consultation note 07-18-2021 Note Date & [...] like to proceed. CC: Dr. Alon Weber [facility] Signed and Approved by: DR AKAHS MARTINEZ . 07/25/2021 08:02:00 [facility] Clinical Note 02-28-2021 Note Date & Type Note Facility 02-28-2021 Note Infectious Disease COVID-19: How to Protect Yourself and Others Know how it spreads ? There is currently no vaccine to prevent coronavirus disease 2019 (COVID-19). ? The best way to prevent illness is to avoid being exposed to this virus. ? The virus is thought to spread mainly from wexmmy-yh-xjjwdx. ? Between people who are in close [...] are not readily available, use a hand sales assistants and salespersons that contains at least 60% alcohol. Cover [...] at higher risk of getting very sick.www.cdc.gov/coronavirus/2019-ncov/n hdu-mywvy-wjtchrohxon/wfsilu-if-xhpcdu-r isk.html Cover your mouth and nose with [...] available, clean your hands with a hand sales assistants and salespersons that contains at least 60% alcohol. Clean and disinfect ? Clean AND disinfect frequently touched surfaces daily. This includes tables, doorknobs, light switches, countertops, handles, desks, phones, keyboards, toilets, faucets, and sinks. www.cdc.gov/coronavirus/2019-ncov/preven l-rhxpave-axnr/ihgisddxnknh-ruky-ngek.ht ml ? If surfaces are dirty, clean [...] Reviewed: 12/31/2019 Elsevier Patient Education ? 2019 [employer] COVID-19 Frequently Asked Questions COVID-19 (coronavirus disease) is an infection that is caused by a large family of viruses. Some viruses cause illness in people and others cause illness in animals like camels, cats, and bats. In some cases, the viruses that cause illness in animals can spread to humans. Where did the coronavirus come from? In May 2019, [place] told the World Health Organization (WHO) of several cases of lung disease (human respiratory illness). These cases were linked to an open seafood and livestock market in the city of [facility]. The link to the seafood and livestock [...] naming World Health Organization (WHO): www.who.int/emergencies/diseases/novel-c oronavirus-2019/technical-guidance/joe moorec-kjy-evnhsjlmqrh (more content not included)... [facility] History and physical note 05-05-2020 Note Date & Type Note Facility 05-05-2020 Note [id number] #1.00CD:127 [facility] History and physical note 05-02-2020 Note Date & Type Note Facility 05-02-2020 Note [id number] #1.00CD:127 [facility] Evaluation note Note Date & Type [...] section and content) DATE CREATED AUTHOR 03/05/2021 Ananth Weiner [facility] DATE CREATED AUTHOR AUTHOR'S ORGANIZ ATION 04/10/2021 [facility] DATE CREATED AUTHOR AUTHOR'S ORGANIZ ATION 07/02/2022 [facility] DATE CREATED AUTHOR AUTHOR'S ORGANIZ ATION 10/21/2023 [facility] EP[facility] DATE CREATED AUTHOR AUTHOR'S ORGANIZ ATION 12/06/2023 [facility] Reason for Visit (unrecogniz ed section and [...] BE BASED ON THE PRIMARY CLINICAL RECORDS. [facility] [employer] [facility]. provides no warranty or guarantee of the accuracy or completeness of information in this document.
--- NOTE | 2023-12-23 12:47 | PM.CN ---
Consult Note: HPI Data of Consult Patient: known to practice within the last 3 years Consult date: 12/23/23 Requesting Physician: Harley Maldonado MD Primary Care Provider: Sixto Gomez MD Consult Narrative Reason for consult: low back pain Narrative: 28yof who presents for assessment. continues to note significant axial pain worsened with standing and ambulation. lumbar mri reviewed, which did not show any disc herniations. continues to engage in a series of provider directed home exercises for >6 weeks, without any significant benefit. uses OTC pain meds and NSAIDs as necessary, but does not like taking medications. cc:: CC: Harley Maldonado MD Review of Systems ROS Status of ROS 10 or more systems reviewed and unremarkable except as noted in history and [facility] Insomnia ?G47.00 - Insomnia, unspecified (ICD-10) PTSD (post-traumatic stress disorder) ?F43.10 - Post-traumatic stress disorder, unspecified (ICD-10) Panic attacks ?F41.0 - Panic disorder [episodic paroxysmal anxiety] (ICD-10) Depression ?F32.A - Depression, unspecified (ICD-10) Anxiety ?F41.9 - Anxiety disorder, unspecified (ICD-10) COVID-19 ?U07.1 - COVID-19 (ICD-10) Migraine ?G43.909 - Migraine, unspecified, not intractable, without status migrainosus (ICD-10) Endometriosis ?N80.9 - Endometriosis, unspecified (ICD-10) Pelvic pain ?R10.2 - Pelvic and perineal pain (ICD-10) Heart murmur ?R01.1 - Cardiac murmur, unspecified (ICD-10) Hyperthyroidism ?E05.90 - Thyrotoxicosis, unspecified without thyrotoxic crisis or storm (ICD-10) Postoperative nausea and vomiting ?R11.2 - Nausea with vomiting, unspecified (ICD-10) ?Z98.890 - Other specified postprocedural states (ICD-10) Surgical History History of cholecystectomy ?Z90.49 - Acquired absence of other specified parts of digestive tract (ICD-10) History of laparoscopy ?Z98.890 - Other specified postprocedural states (ICD-10) History of section ?Z98.891 - History of uterine scar from previous surgery (ICD-10) History of ankle surgery ?Z98.890 - Other specified postprocedural states (ICD-10) History of ankle surgery ?Z98.890 - Other specified postprocedural states (ICD-10) History of ankle surgery ?Z98.890 - Other specified postprocedural states (ICD-10) Family History Other Family history of breast cancer Family history of hypertension Family history of leukemia Family history of lung cancer Social History Within the past year, how often did you have a drink containing alcohol: monthly or less Smoking status: Never smoker Non-prescribed substance use: denies use 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 Highest level of school completed/degree received: high school graduate Meds Home Medications and Allergies Home Medications ?Medication ?Instructions ?Recorded ?Confirmed ?Type drospirenone 3 mg-ethinyl 1 tab PO DAILY 07/01/23 10/11/23 History estradiol 0.03 mg tablet hydroxyzine pamoate 50 mg capsule 50 mg PO Q6H PRN nausea and 07/01/23 10/11/23 History vomiting venlafaxine 150 mg 150 mg PO DAILY 07/01/23 10/11/23 History capsule,extended release 24 hr valacyclovir 500 mg tablet 500 mg PO Q12H PRN skin breakout 10/02/23 10/11/23 History ibuprofen 800 mg tablet 800 mg PO Q8H PRN pain 14 days #40 10/11/23 Rx tabs prazosin 1 mg capsule 1 mg PO QPM 11/25/23 11/25/23 History Allergies Allergy/AdvReac Type Severity Reaction Status Date / Time Penicillins Allergy Hives Verified 10/02/23 12:41 Sulfa (Sulfonamide Allergy Verified 10/08/23 11:30 Antibiotics) hydrocodone AdvReac Intermediate Hives Verified 10/02/23 12:41 oxycodone AdvReac Intermediate Hives Verified 10/02/23 12:41 Exam Narrative Exam Narrative: Psych-alert and oriented x 3. Attentive and appropriate, constitutionally normal, displays normal mood and affect per situation.? There are no obvious deficits in memory, reasoning, or intellect.? Skin-no obvious rashes, bruising, erythema noted to the patient's area of pain. Extremities- extremities are warm with minimal edema and palpable pulses. Lumbar-no significant tenderness to palpation noted in the lumbar spine and paraspinal musculature.? Pain is elicited with extension, and lateral rotation of the lumbar spine. Range of motion is slightly diminished with these motions due to pain. Facet loading maneuvers are positive bilaterally and do appear to be concordant with the patient's normal complaints of pain.? Coordination remains intact.? Gait remains non-antalgic. Assessment and Plan Assessment and Plan (1) Lumbar spondylosis: Plan 28yof who presents for assessment. failed conservative measures, as noted. imaging reviewed, as noted. given symptoms and imaging, prudent to attempt bilateral l4-5, l5-s1 medial branch blocks under fluoroscopic guidance with intention of proceeding to radiofrequency ablation. she is in agreement. meds reviewed, no changes. follow up after procedure.
== END 2023-12-23 12:15 | disposition home or self-care (01) ==
LOC: PM 12:14
PROVIDERS: PCP Family Medicine; Visit Provider Anesthesiology
DX: M47.816 Spondylosis without myelopathy or radiculopathy, lumbar region (principal)
CPT/HCPCS: G0463

== ENCOUNTER 2023-12-24 09:12 | Outpatient (OUT) | payer BC, SELFPAY ==
--- NOTE | 2023-12-24 | XR_ITS ---
The [address] [address] Patient Name: RAJIV LANDAVERDE MRN: [id number] date: 1995 Sex: F Assigned Patient Location: Current Patient Location: Accession/Order Number: [id number] Exam Date: 12/24/2023 09:13 Report Date: 12/25/2023 10:08 At the request of: SILVIA PEREIRA Procedure: XR ankle LT min 3V PROCEDURE: XR ankle LT min 3V HISTORY: LEFT ANKLE PAIN COMPARISON: XR foot left 01/26/2020 FINDINGS: BONES:Within the sinus tarsi. Intact uniform ankle joint. No fracture or dislocation. SOFT TISSUES:No visible soft tissue swelling. EFFUSION:None visible. OTHER: Negative. XR/XR ankle LT min 3V IMPRESSION: 1. Stable surgical changes without appreciable hardware failure or change in alignment. 2. No acute bone abnormality or significant degenerative joint disease. Electronically authenticated by: BEN MARIE Date: 12/25/2023 10:08
--- OUTSIDE RECORDS SUMMARY | 2023-12-24 09:21 | XMS_ITS | CCD ---
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 Name Role Phone MICHELLE, DR AKASH Murray Admitting Unavailable MICHELLE, DR AKASH Murray Attending Unavailable GUS, DR [facility] Unavailable MARILIN ROWELL Consulting Unavailable GUS, DR [facility] Unavailable ELSIE HIGGINS Admitting Unavailable ELSIE HIGGINS Attending Unavailable JEANIE SEWELL Consulting Unavailable MICHELLE, DR AKASH Murray Admitting Unavailable MICHELLE, DR KAASH Murray Attending Unavailable GUS, DR CHI Primary [...] Facility (2 sources) HYDROcodone Drug Allergy 5 [facility] Repository (2 sources) oxyCODONE Drug Allergy 5 [facility] Repository (2 sources) Penicillins Drug allergy (disorder) 5 [facility] Repository (3 sources) Acetaminophen / HYDROcodone Drug Allergy 4 Unknown [facility] Healthcare (3 sources) HYDROcodone Drug Allergy 4 Hives [facility] Healthcare Work Phone: (3 sources) oxyCODONE Drug Allergy 4 [facility] Healthcare (3 sources) Penicillin G Drug Allergy 4 [facility] (3 sources) Penicillin G sodium Allergy to substance 4 Rash [facility] (3 sources) Penicillins Drug Allergy 4 Hives [facility] Healthcare (3 sources) Sulfamethoxazole / Trimethoprim Drug Allergy 4 Rash [facility] (3 sources) Sulfonamides (Antibiotic) Drug Allergy 4 [facility] Healthcare Medications Current Medications Medication Drug Class(es) [...] 07-18-2021 Episodic Other aftercare (1 source) 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; Translations: [OTH CUSTODIAL CURRENT DRUG THERAPY] Onset: 09-05-2021 Episodic Other upper respiratory infections (1 source) Acute upper respiratory infection, unspecified; Translations: [ACUTE UP RESPIRATORY INFECTION UNS] Onset: 09-05-2021 Episodic Unclassified (1 source) COUGH, UNSPECIFIED; Translations: [COUGH, UNSPECIFIED] Onset: 09-03-2021 Results Test Name Value Interpretation Reference Range Facility Covid-19 PCR ([facility])on 08-22 SARS-CoV-2 (COVID-19) RNA MARY+probe Ql (Unsp spec) Not detected Normal NOT DETECTED [facility] Comment on above: Result Comment: This test is not yet approved or cleared by the [place] FDA. When there are no FDA-approved or cleared tests available, and other criteria are met, FDA can make tests available under an emergency access mechanism called an Emergency Use Authorization (EUA). The EUA for this test is supported by the [place] of Health and Human Service's (HHS's) declaration [...] consistent with SARS-CoV-2. Performed By: #### C [facility] #### [facility] [address] [place] [address] Dr. Karlos Augustin GROUP A STREP CULTUREon 08-22 S. pyogenes Ag Ql (Unsp spec) Culture Observations: NEGATIVE FOR GROUP A STREPTOCOCCUS. Normal [facility] Comment on above: Performed By: #### S ДМИТРИЙ GRASTCX #### [facility] [address] [place] [address] Dr. Karlos Augustin INFLUENZA A AND B AGon 09-03 INFLUANEGH SEE BELOW Normal [facility] Comment on above: Result Comment: Nega tive for Flu A protein angiten. Infection due to Flu A cannot be ruled out. Flu A angiten in the sample may be below the detection limit of the test. Performed By: #### I NFLUAB #### [facility] [address] [place] [address] Dr. Karlos Augustin INFLUBNEGH SEE BELOW Normal [facility] Comment on above: Result Comment: Nega tive for Flu B protein antigen. Infection due to Flu B cannot be ruled out. Flu B antigen in the sample may be below the detection limit of the test. Performed By: #### I NFLUAB #### [facility] [address] [place] [address] Dr. Karlos Augustin INFLUENZA A AG Negative Normal NEGATIVE SEE COMMENT [facility] Comment on above: Performed By: #### I NFLUAB #### [facility] [address] [place] [address] Dr. Karlos Augustin INFLUENZA B AG Negative Normal NEGATIVE SEE COMMENT [facility] Comment on above: Performed By: #### I NFLUAB #### [facility] [address] [place] [address] Dr. Karlos Augustin INTERNAL CONTROLS Within Normal Limits Normal Wi thin Normal Limits [facility] Comment on above: Performed By: #### I NFLUAB #### [facility] [address] [place] [address] Dr. Karlos Augustin STREPT SCREENon 09-03-2021 STREP SCREEN A Negative Normal NEGATIVE The [facility] Comment on above: Performed By: #### S ABIGAILN, GRASTCX #### [facility] [address] [place] [address] Dr. Karlos Augustin PREG HCG QUALon 08-01-2021 , QUAL Negative Normal NEGATIVE [facility] Comment on above: Performed By: #### P REG #### [facility] [address] [place], [place] [address] Dr. Karlos Augustin PREG HCG QUALon 07-04-2021 , QUAL Negative Normal NEGATIVE [facility] Comment on above: Performed By: #### P REG #### [facility] [address] [place] [address] ABDOMEN AND PELVIS W IV C [facility] 04-05-2021 CT ABDOMEN AND PELVIS W IV CONTRAST [facility] Department of Radiology [address] [place] [address] Patient Name: RAJIV TOVAR : 1995 Sex: F Age: Race: White Pt. Location: [facility] Patient Status: D Ordered Date: 03/21/2021 4:00:00 PM Completed Date: 04/05/2021 03:49 PM Requesting Provider: ДМИТРИЙ CALLAHAN Attending Provider: ДМИТРИЙ CALLAHAN Report Copy To: ALON WEBER Signs & Symptoms: R10.31 Right lower quadrant pain I10 History: [place] Is patient on meds for HTN or DM? 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 Per [employer] for CPT 53711 Ref#[id number] Med Nec-Passed *SLA Comments: Exam: CT ABDOMEN [...] Electronically signed: Noemy Stanley M.D.. Transcribed by: [email or web address], User Resident: Electronically Signed by: NOEMY STANLEY @ 04/07/2021 01:25 PM Normal The [facility] CHEST 2 [facility] 03-21-2021 [facility] CHEST 2 [facility] Department of Radiology [address] [place] [id number] Patient Name: RAJIV TOVAR : 1995 Sex: F Age: Race: White Pt. Location: [facility] Patient Status: D Ordered Date: 03/21/2021 2:25:00 PM Completed Date: 03/21/2021 02:22 PM Requesting Provider: ДМИТРИЙ CALLAHAN Attending Provider: Report Copy To: Signs & Symptoms: R07.81 Pleurodynia I10 History: Josefa Comments: right ribs pain Exam: [facility] CHEST 2 VWS [facility] CHEST 2 VWS 03/21/2021 2:22 PM [...] disease Electronically signed: Cyril Olivo. Transcribed by: [email or web address], User Resident: Electronically Signed by: CYRIL OLIVO @ 03/22/2021 02:39 PM Normal [facility] Comment on above: Order Comment: right ribs pain Coding Summary.on 03-03-2021 Coding Summary. CD:[id number] G h0bWw+PGhlYWQ+OV2FYCW nQ15edIJcpO7KA4iJKN0J FVOLHQLMVS2WDO3myKU1D SwiM7VciaLa QxugaNMeLA21AVz6WAZ2w WszDOvkaZ2ejWHqD6w7Yf PlUZ31xE21MBbmHUNcFxA 3LjZpbjsgbWFy W5crSxRqyTJbKzv+PHRhY mxlIHdpZHRoPScxMDAlJy TtoYfjFA5mBo9jRTGgLIN vbGxhcHNlOiBj s8lpGRBoNGwvKN6tzGwlL 5MkzDZ9WRTpw5c7Wp29oU I+ODBmWHL6qImgDAmwb96 7YsIyv7vsDTY0 hSFrEBdzDLW9P73lm3E6H OThFOAcZBZ8pFS3fI3dcL qiahkoF3LpbMQxJbP4UIO 0vZRqtN9fsOap qkmizI6kNeh+X94FCU3YQ DVEYU6JBwn4K9VmUrotiA I+ES17UDHrIL04kFRudJI qn1dirTe5TyZc EHZgMRL0sBlbKGvnt2VuL ZFuZ38yeZZzp7I2LREujR uihYHfTuYgmKX3zK1sANi xtqave1ezwnfh Uqvny8sfbv91bR88J07oD AkcVXMmNGM8SPHeQZNtsR nthj1brS0qFh5+YAqhd3h qe4ogdJp5WpWo IMYiqaFwaTlbUVD7x4KrA b88D1VirHkht7ReUwk9aq 70bUQnq4Q9aUM3ZTzuWVN zwF8qGWrkKyJ7 ACEtIlYhmF74zUKjGEcaT n4rpXoopChbAY7oFFEmcb pbIBNmqG0nOGAyxTXmwVh cHQ0pWHDqawyw e025YsQhUNC4HUZnfXKhW 5EddQ4jFvIhQBNaEEPsP2 QfqWIsYFjeJ224VRleDbT 2SLRrieNgF1Is UOAewJqoJoO4e4L1Dm1Km 7VlatmaURD4DQwfGYE6Kw YiVzIaWsP7U3LsXya0RBG yrKifHV9oR5Tr BNVxygwrgxtqgMH2PBGnU CVglM09mBBuAWguKc1so1 Y1u570SMTtZYZyzM66Pq2 udDogMTBwdCBU uD8uuiwrl7mhozsbJhIgF HQsJTs7XSv4WLYohOnsGs PxUJK0PjI4SNF7sXMcxS6 bmOtoicdbcU7z Oyc+F34keF3fUJR2ZHF3d kkbSJJgzyXgLO75YP05A5 RyPjwvdGFibGU+PGRpdiB bxSyiAI4nAcBr m3wvx1AbMOykK5NuSZDpK IfkDmc1LIFrGWZ0hXT8zF 2xQWNgQRinl2K1wHK4L7J rhbTovf2uk2pv WDJqAHzkD91nnKQla8M6K DHocBB4RPTkjJnfMvWxnZ 93Oyc+KRXfnYals8HrJqg js7kjc8gzxXd8 FsQwZLBlomIfmJftBRO4a 6DeYk59E23gPFyiASGxMQ WgTVXaXSEopOziqr4ygJ1 wIi8+PGNvbCB3 aYT0zX2bYSYdVrR6PWpuO 841VmEneKKpKcgad3dog2 lnbHd9QvHgNOLezfSwjMr yKNM2c8SeGd18 U10qQSirXNMeYQGzTZMrR LOypZmvcq2scM0fVt5+PC 9qk0feea78dI10jTA+PHR gJJE6fHimEJye FIZbbK0xMFioCsE3RIMbM uXnrE87cCKuGLasAg4iqQ milIkfNW8iUHLjvbduz43 2XwFnz2meUKUh mKHpCEguBJC2T47oz4M7I GUaMQSgMAL3lCP4oP0vjL lnbjogbGVmdDsgdmVydGl eVTovPXfhL462 IHRvcDsnPlBhdGllbnQgT eLpWAy1W8VjFfe9VPXhsY ilKC5buANdGKsbDu0flQu miPauVD4bCTEl cmcle084IuObb7gfIAHto EHsXYumIDF1T00sh0P5SU InNBPmSLB9lND3xC8qzWe nbjogbGVmdDsg yuFakOcsIEspJFtkI949E HRvcDsnPkJpcnRoIERhdG S8YY93LN29fJGjz5I1xMP 7N8CzBLYgqmva pssoyIA3LJTuDKLzwJ69P d2kwQqrCl7ySEDvHMQ5TA HoiIVaR2RvcK7iBwAmGEE rVRNoW7DtdDUb KBwtJ777KUaqXbL6QNCqk mXrC7VuYKHosFpbLbE5u4 W4Xu9HO8T1AK98TN72hCV rf8C1zQD4X1Ya KPJztliycsynjLB0PZIlH VHreV22Bf7bkIzyTm0eJN EuXNY8RKVzqOHpF4InnN0 yOiAjMDAwMDAw E5AzgGIaGFzbR792TEjlJ uZ4TOQcpuWzL7LkXNKtsY aoQqL8e8J8Fi0YAZh1WQ2 3QX81eIXym2Z0 lXQ2Z9WcRVDonleukwatk YT2EFAlFQXilZ01Mb0weW igNn5kKFPfNMQ7OWKsbJV uN0DmoU0oDzCj TXFfPZUyR7IlaOZkYXtgS 819LIntMoN7YFGnknXvR7 CiNLPewYsxErC2h9G1Ff5 ZTJDxTB58OMD2 xJT5NM28LN53M2QuDtniq GFibGU+PHRhYmxlIHdpZH RoPScxMDAlJyBzdHlsZT0 uNj7bSQPfDZCk hCsnnYMlVvHue3yqJAGyB QcrJJ5duOemV6EtuQE6XY Abn3u2Kp09Q68lY1EdpOH +CKTtlIH2lKW5 sF8wBjRdMzK4DSnuI378T mSbbCBlGybgc9fol2uqaO e0TcB0GCYwisQgcOymMPM 3h3OqEl90Y10y IHdpZHRoPSIxNSUiIHZhb Rhmyc3cnH3mFd6+PGNvbC P8zCZ1fP7uQeEgVnC9EKs aO569VhAhyMMc Owbsv5wxp4mekOb9NdTaO NTnpoGjhApyXBK6f2GfOc 42H1WrgBxtn7WnYtt2zj7 6rVScv7A6xHF9 N1DkJHBmerhyfWNjvHlnJ M2wSJDdsemeFNKweR0gYM NpG6m1YpBtVnW5FBpuX0V olmD5KHBwoKHy HEiqWME8Z50de8X8TCXcU TEjAYO5gXZ9hP9feVpaqz ogbGVmdDsgdmVydGljYWw gPJedU991HWHs aSznXWYooG4fDNPesMYqr PciTO0yXEKlxabpLzHMFB WGOQTPVEkIC0Q8V5NrEof 7CVAbyVvjTG7l oDKmFGqvIs8yaIbhzOimX K5oEXVqsbsiZOLpmU6pXD RtbDJqcAdzES5wHMVotra bs699DtAfMXQ8 ILBzlCLvG6QfqN4uXyYgU BFzMDVlP6ZdeGCiGFzaU5 20XMacDnP1XPWvvbGxV1L sLWFsaWduOiB0 k0P9Zq9jVR7fRk1rYRwaZ A58BZ05zBNmm0Y6gLC7K8 MaMEVonhnmtjxiwAU8SMW mKYFasG23vSGv RZlyAm5jh3N7p885MUHxM ZZawG84Fj1bmJhaBJCswF EPsL2nyocbj0cojlomHwE mLNVlBUg4TNu9 LWXohRgwWeVbRVP8UcQ8H ZC0hCNfvO5oyJqpxljumN 9wOyc+ZexlGFGicqM2Z6X bXjw1BSGkyYgg ES5rxZFtNHmeRq8fgInhy UqqUB7fZDRiwnolEDHntW 5bOEMiiMJsaFoeZA5nBZD bweydh555PrBg YQZ8IHFpdRDbX9DpyS7rZ nFvOAQkAWYdH2PwsELiUT zfA507ENydTmS5NANqhbF oF3HlCFNanAab CdS6z8R8Uk6KUF0euZG4C 5PeHji2VZDvsCdmCU2lfX HlHDbiTk7lhTlhmSquXM2 wNTBpbjtwYWRk sQ0uUDAcgNJgwOseBE1wU GMjwiilg593DvUrLEP5KX GihKJyQ6IcuM7bJrZgRAG oZDGmA1TgnNVk DKsfB179VHdwRrC5EYUqs rSgD5JwYUQjcDueVlP4b8 K5Ko4DsEMrR1JnA9k9V8W kPjwvdHI+PC90 IOUdTK43kJOimBMqo1jhq Wr1UnTwDUNeLXX2oMnlOG ezs5OiWIFyK18efOEkl2F 6IGNvbGxhcHNl ZzZzuPO6kW5tQNwquacgz 5vcyzdyJeqzm1owlo50pK 57Q49jSLghHLZoWPVlGYJ gGWKitAndaj3d wZ3oNh9+TJAklRK8nXC3n S6nIyJuMpO1LAsbO580Vd QncQTxJjihr1nyk6nyaQk 9IjIwJSIgdmFs kOhiKHM5j2PrWn71S79gO HdpZHRoPSIyMCUiIHZhbG hvth5ztN1dLq2+HZ7tj1m ztq81fV72yAS+ ENLmMHF3eIwoAUccKCLrl E1uQGiqRrB0XKAqDcNnvL 32mCXfWFfqYf5rkQwdxMj gBZ8zNTWnzbxc s354FuBpn4fuVRVscMFdX BcfSST9Y61hz9A2IRUiZG CxTGI1sCK5aC6juGlielj gbGVmdDsgdmVy sNprLJleERgdS609DEQsm VsmIrGvjVUyW1qwfzOVDO 1lOjwvdGQ+FCSpBDV5gRc aRYhbBWXapS6c LFZhG3k0UkXqCuK8ZByoS 3OebuV5UDOisTKmVZBmnV OWzW2byyibh8hzupjcNmH gZNLpATl2GYz5 ULFjgZzpUxOhOWM5ScT3L AE2vHBzeU1tsFvmfcntkL 9wOyc+RklOOjwvdGQ+PHR gLKB2fLcdGMzl VZAdzQ9kYXQcL3h6AjSaZ gQ0DOmjX3XdumN8GRAktM LrJUWbtFLXhG7nzcutw6x vcjogIzAwMDAw DMw7RZg8VNTfvTfvAgOdR SL8TuZ5QJP2kSAgpK2gsJ qnvhgyhU1eYpz+TVJOOjw vdGQ+PHRkIHN0 aGziAAzoYPNdyG8hQKWrO 8e7EoKbHbZ1DOooB4Secq X3HBLkuHRkHHMlvUFIjP5 ztxfis7kmutrs BtNhDJTzJWc7RIy2MAMis LavXaJnLHQ8ZvM4GCQ8vC OsxR0cgLwkgjkulY2pPaf +SRB7OVH7GT44 GY63U9MkVadzxGQggSK+P HRhYmxlIHdpZHRoPScxMD WhXaBrhIohUS1cPm7oGTN yLWNvbGxhcHNl OiBj (more content not included)... Normal [facility] Auto Diffon 02-28-2021 Basophils/100 WBC (Bld) 0.4 % Normal 0.0-2.[address] [facility] Comment on above: Order Comment: Order Added by Discern Expert. Performed By: #### 2 729243, 0935343, 47518032, 77935349, 29764990, 14950528, 8374742, 0116245, 2197306, 5631761 ####[facility] [address] [place] [address] Basophils/Leukocytes Auto (Bld) [Pure # fraction] 0.0 E9/L Normal 0.0-0.[address] [facility] Comment on above: Order Comment: Order Added by Discern Expert. Performed By: #### 2 190827, 7921260, 46402867, 22154457, 68082450, 75858742, 5338656, 2536702, 6719817, 9110159 ####[address] [place] [address] Eosinophils/100 WBC (Bld) 0.6 % Normal 0.0-8.[address] [facility] Comment on above: Order Comment: Order Added by Discern Expert. Performed By: #### 2 165140, 8367564, 89597928, 78683650, 91674486, 23913069, 5247576, 8619511, 6693582, 2513958 ####[address] [place] [address] Eosinophils/Leukocyt es Auto (Bld) [Pure # fraction] 0.0 E9/L Normal 0.0-0.[address] [facility] Comment on above: Order Comment: Order Added by Discern Expert. Performed By: #### 2 228378, 0451337, 72549517, 62760179, 60812376, 67728443, 0678457, 5597129, 5498186, 9775140 ####[address] [place] [address] Lymphocytes/100 WBC (Bld) 7.9 % Low 14.0-50.[address] [facility] Comment on above: Order Comment: Order Added by Discern Expert. Performed By: #### 2 951621, 5873174, 19697796, 24111217, 06827769, 68078038, 4164504, 4745718, 3462874, 2069690 ####[address] [place] [address] Lymphocytes/Leukocyt es Auto (Bld) [Pure # fraction] 0.4 E9/L Low 1.0-4.[address] [facility] Comment on above: Order Comment: Order Added by Discern Expert. Performed By: #### 2 574827, 9198110, 06871616, 88706795, 82442960, 98736883, 7205292, 6564186, 1117846, 2041904 ####[facility] [address] [place] [address] Monocytes/100 WBC (Bld) 5.5 % Normal 4.0-14.[address] [facility] Comment on above: Order Comment: Order Added by Discern Expert. Performed By: #### 2 368006, 6697324, 76453912, 90823895, 86152219, 29685328, 1381790, 4065156, 6716879, 8947424 ####[address] [address] Monocytes/Leukocytes Auto (Bld) [Pure # fraction] 0.3 E9/L Normal 0.2-1.[address] [facility] Comment on above: Order Comment: Order Added by Yifan Expert. Performed By: #### 2 459656, 9686653, 97121664, 99380928, 54850391, 18946204, 6118488, 1424196, 5715422, 5497451 ####[address] [address] Neutrophils/100 WBC (Bld) 85.6 % High 36.0-75.[address] [facility] Comment on above: Order Comment: Order Added by Discern Expert. Performed By: #### 2 229608, 2863182, 11113243, 13298654, 13287714, 84817087, 6868139, 7973672, 6025189, 1256700 ####[address] [place] [address] Neutrophils/Leukocyt es Auto (Bld) [Pure # fraction] 4.5 E9/L Normal 2.0-7.[address] [facility] Comment on above: Order Comment: Order Added by Yifan Expert. Performed By: #### 2 125514, 8022912, 76957508, 09707493, 10666778, 42052921, 1708213, 0853343, 0658988, 5201994 ####[facility] [address] [place] [address] B hCG Qualon 02-28-2021 Beta hCG Ql Negative Normal [facility] Comment on above: Performed By: #### 2 757656, 5695589, 22690197, 84065556, 56391090, 90839541, 0115616, 9418741, 6270485, 3489902 ####[facility] [address] [place] [address] BMPon 02-28-2021 Creatinine [Mass/Vol] 0.7 mg/dL Normal 0.5-1.[address] [facility] Comment on above: Performed By: #### 2 947330, 2638074, 14223537, 99334239, 68589326, 74040045, 4506534, 1628572, 7482831, 2067063 ####[facility] [address] [place] [address] Urea nitrogen [Mass/Vol] 9 mg/dL Normal 5-[address] [facility] Comment on above: Performed By: #### 2 886509, 5530104, 75290805, 34386469, 08588819, 99111446, 2238497, 2265074, 7299657, 5455169 ####[facility] [address] [place] [address] Urea nitrogen/Creatinine [Mass ratio] 13 No Units Normal 10-[address] [facility] Comment on above: Performed By: #### 2 393279, 5038282, 93834686, 79309234, 47531726, 27598824, 7133102, 7522590, 4755784, 4449625 ####[facility] [address] [place] [address] Anion gap [Moles/Vol] 14 mmol/L Normal 6-[address] [facility] Comment on above: Performed By: #### 2 310142, 3015281, 98728973, 32789013, 51103567, 43001628, 2866490, 6835952, 9923463, 9033679 ####[facility] [address] [place] [address] Calcium [Mass/Vol] 8.5 mg/dL Low 8.9-11.[address] [facility] Comment on above: Performed By: #### 2 315174, 6508204, 31092866, 22357637, 84738733, 22742807, 6028076, 2346726, 2377325, 3635501 ####[facility] [address] [place] [address] Chloride [Moles/Vol] 102 mmol/L Normal 101-111 [facility] Comment on above: Performed By: #### 2 777161, 7852465, 01524843, 26566891, 76832332, 67164353, 0344088, 8108240, 0938816, 5775657 ####[facility] [address] [place] [address] CO2 [Moles/Vol] 21 mmol/L Normal 21-31 [facility] Comment on above: Performed By: #### 2 313866, 8430444, 00032760, 64909005, 76411654, 72533244, 9394546, 6631043, 8104548, 8689481 ####[facility] [address] [place] [address] Glucose [Mass/Vol] 95 mg/dL Normal 55-[address] [facility] Comment on above: Result Comment: If t his glucose result represents a fasting glucose, interpretation should refer to the following reference range: 55-99 mg/dL Performed By: #### 2 945862, 5929067, 79423620, 93275653, 40035364, 03387712, 9967126, 4324101, 1607179, 9018554 ####[facility] [address] [place] [address] Potassium [Moles/Vol] 3.6 mmol/L Normal 3.5-5.[address] [facility] Comment on above: Performed By: #### 2 149910, 2575287, 84811233, 72603411, 42178651, 22501689, 4887337, 5615106, 3475000, 6643519 ####[address] [place] [address] Sodium [Moles/Vol] 133 mmol/L Low 135-[address] [facility] Comment on above: Performed By: #### 2 133949, 7761711, 07426557, 35945672, 09789637, 26099423, 6322597, 6534544, 9299308, 7196798 ####[address] [place] [address] CBC w/ Auto Diffon 1 Erythrocyte distribution width (RBC) [Ratio] 12.4 % Normal 10.9-14.[address] [facility] Comment on above: Performed By: #### 2 439604, 0824249, 93019434, 45462863, 25328584, 03071853, 2872576, 2123047, 3531881, 5631463 ####[address] [place] [address] Hematocrit (Bld) [Volume fraction] 38.1 % Normal 34.0-46.[address] [facility] Comment on above: Performed By: #### 2 441267, 7868481, 41059120, 00489379, 29725712, 36559094, 4192702, 8072761, 5801568, 1199243 ####[address] [place] [address] Hemoglobin (Bld) [Mass/Vol] 13.3 g/dL Normal 12.0-16.[address] [facility] Comment on above: Performed By: #### 2 943218, 4034861, 86685699, 21189086, 32469807, 10369952, 5657556, 2406932, 4916448, 4058899 ####[address] [place] [address] MCH (RBC) [Entitic mass] 31.7 pg Normal 27.0-34.[address] [facility] Comment on above: Performed By: #### 2 979724, 4334861, 65306745, 37845273, 39557436, 06290747, 3491818, 0283765, 4513638, 6053567 ####[facility] [address] [place] [address] MCHC (RBC) [Mass/Vol] 35.0 g/dL Normal 31.4-36.[address] [facility] Comment on above: Performed By: #### 2 326247, 2103967, 54874751, 18532887, 39981075, 54469986, 2899171, 6212141, 3891268, 1185698 ####[address] [place] [address] MCV (RBC) [Entitic vol] 90.8 fL Normal 80.0-100.[address] [facility] Comment on above: Performed By: #### 2 219123, 4824531, 69899565, 43869058, 31692027, 38239605, 8220022, 2913346, 1543779, 5116397 ####[address] [address] Platelet mean volume (Bld) [Entitic vol] 10.0 fL Normal 6.4-10.[address] [facility] Comment on above: Performed By: #### 2 243633, 1292553, 73646228, 39572542, 75083780, 37945447, 9160783, 1176027, 6522821, 6960653 ####[address] [place] [address] Platelets (Bld) [#/Vol] 144.0 E9/L Low 150.0-500.[address] [facility] Comment on above: Performed By: #### 2 953844, 5844294, 75582705, 42106164, 72681470, 93275211, 5674441, 1362906, 1108301, 7185942 ####[address] [place] [address] RBC (Bld) [#/Vol] 4.2 E12/L Low 4.3-5.[address] [facility] Comment on above: Performed By: #### 2 329498, 1788591, 14158886, 98090936, 73001156, 30443353, 3906814, 0213517, 3787795, 3472190 ####[facility] [address] [place] [address] WBC corrected for nucl RBC Auto (Bld) [#/Vol] 5.3 E9/L Normal 4.0-11.[address] [facility] Comment on above: Performed By: #### 2 104774, 8185006, 13545843, 08269526, 24870557, 59875292, 2310931, 4504748, 4974506, 6636001 ####[address] [place] [address] COVID-19 (MC)on 02-28-2021 SARS-CoV-2 (COVID-19) RNA MARY+probe Ql (Unsp spec) Not detected Normal Not Detected [facility] Comment on above: Result Comment: This test result should be correlated with clinical presentations and medical history by a healthcare provider to determine its clinical significance. This assay was performed by a reverse transcriptase real-time polymerase chain reaction (rt PCR) method on the [employer] system. This test has been authorized only [...] or revoked sooner. Performed By: #### 2 [id number] #### [facility] [address] [place] [address] SARS-CoV-2 (COVID-19) RNA MARY+probe Ql (Unsp spec) Pass Normal Pass [facility] Comment on above: Performed By: #### 2 [id number] #### [facility] [address] [place] [address] Specimen source Nom (Unsp spec) Nasal Normal [facility] Comment on above: Performed By: #### 2 [id number] #### [facility] [address] [place] [address] Employed in Healthcare NO Normal [facility] Comment on above: Performed By: #### 2 [id number] #### [facility] [address] [place] [address] First Test Unknown Normal [facility] Comment on above: Performed By: #### 2 [id number] #### [facility] [address] [place] [address] Hospitalized? NO Normal [facility] Comment on above: Performed By: #### 2 [id number] #### [facility] [address] [place] [address] ICU NO [facility] Comment on above: Performed By: #### 2 [id number] #### [facility] [address] [place] [address] ? NO Normal [facility] Comment on above: Performed By: #### 2 [id number] #### [facility] [address] [place] [address] Resides in a [facility] Setting NO Normal [facility] Comment on above: Performed By: #### 2 [id number] #### [facility] [address] [place] [address] Symptomatic as defined by CDC YES [facility] Comment on above: Performed By: #### 2 [id number] #### [facility] [address] [place] [address] Consent for Treatmenton 0 Consent for Treatment [id number] [facility] D-Dimeron 02-28-2021 Fibrin D-dimer FEU (PPP) [Mass/Vol] 388 [id number] Normal 215-[address] [facility] Comment on above: Result Comment: This [...] infections Liver cirrhosis Performed By: #### 2 521947, 8024110, 11183192, 21778419, 69588545, 92952537, 9174020, 5542732, 0184032, 8464106 ####[facility] [address] [place] [address] Discharge Instructionson Discharge Instructions [id number]# 1.00CD:[address] [facility] ED Clinical Summaryon 2020 ED Clinical Summary [place] [id number] ED Clinical Summary Person Information Name: RAJIV TOVAR/[facility] Age: 25 Years : 1995 Sex: Female Language: Bulgarian PCP: Alon Weber MD Marital Status: Single [...] 02/28/2021 11:17:01 02/28/2021 11:17:01 02/28/2021 11:17:01 ADDRESS: [address] [place] [id number] PHYS DOC NOTES: MEDICAL INFORMATION: Prescriptions Given: [...] Follow up: With: Address: When: Alon Weber [address] [place] [address], [place] [address] Business (1) In 3 days DIAGNOSIS: Chest pain; Viral URI Normal [facility] ED Note-Physicianon 02-29-20 ED Note-Physician Basic [...] hCG Qual CBC w/ Auto Diff COVID-19 ([facility]) D-Dimer ECG 12 Lead Adult ED Cardiac [...] Information Alon Weber In 3 days [address] [facility] [address] [place] [id number] Business (1) Additional Instructions: Patient Education COVID-19: [...] Use, 01/30 (more content not included)... Normal [facility] Comment on above: Result Comment: Elec tronically Signed By: Laureano Phillip DO\.br\Date and Time Signed: 02/28/21 11:03 EDT ED Patient Summaryon 021 ED Patient Summary [address] [address] Patient Discharge Instructions Person Information Name: RAJIV TOVAR Age: 25 Years Arrival Date: 02/28/2021 09:10:34 Discharge Diagnosis: Chest pain; Viral URI Primary Care Physician: Alon Weber MD Provider Information Primary Provider: Laureano Phillip DO Advanced Collar Packer:None The exam and treatment you received in the Emergency Department were for an urgent problem and are not intended as complete care. It is important that you follow up with a doctor, nurse practitioner, or physician?s promotions assistant for ongoing care. If your symptoms [...] Follow-up Instructions: With: Address: When: Alon Gus [address] [place] [address], [place] [address] Business (1) In 3 days [...] opioids can be used to help relieve omzlcusf-qb-njsmcw pain and are often prescribed following a [...] be struggling with addiction, tell your health sub acute care nurse and ask for guidance or (more content not included)... Normal [facility] Hep Func Panelon 02-28-2021 ALP [Catalytic activity/Vol] 52 Int._Unit/L Normal 21-[address] [facility] Comment on above: Performed By: #### 2 416069, 8735293, 53739464, 20705476, 04887030, 92507864, 9580790, 6805401, 0251032, 8726169 ####[facility] [address] [place] [address] Albumin [Mass/Vol] 4.2 g/dL Normal 3.3-5.[address] [facility] Comment on above: Performed By: #### 2 151041, 5952917, 05368462, 24855547, 87108883, 05627479, 8788977, 3917567, 7423797, 0226959 ####[facility] [address] [place] [address] Albumin/Globulin (S) [Mass conc ratio] 1.4 Normal 1.1-2.[address] [facility] Comment on above: Performed By: #### 2 117269, 9658216, 31659860, 78683720, 96343717, 59184716, 4671157, 3400166, 5629195, 6328171 ####[facility] [address] [place] [address] ALT No additional P-5'-P [Catalytic activity/Vol] 48 Int._Unit/L High 6-[address] [facility] Comment on above: Performed By: #### 2 813802, 3950440, 62017586, 40675392, 85566596, 79746765, 8944184, 7200173, 9595761, 7879742 ####[place] [address] [place] [address] AST [Catalytic activity/Vol] 39 Int._Unit/L Normal 5-[address] [facility] Comment on above: Performed By: #### 2 193197, 0736916, 35814478, 13997019, 88647826, 88465816, 4008175, 8782227, 6052647, 9258165 ####[place] [address] Bilirubin [Mass/Vol] 1.2 mg/dL High 0.0-1.1 [facility] Comment on above: Performed By: #### 2 169628, 7065968, 27464172, 38052209, 17564949, 20212190, 3327191, 5485836, 7700967, 2057733 ####[address] [address] Bilirubin.direct [Mass/Vol] 0.2 mg/dL Normal 0.1-0.[address] [facility] Comment on above: Performed By: #### 2 196290, 1412321, 21321371, 24388180, 46727055, 47864942, 5526822, 7710112, 3748703, 8492366 ####[place] [address] [place] [address] Bilirubin.indirect [Mass or moles/Vol] 1.0 mg/dL High 0.1-0.[address] [facility] Comment on above: Performed By: #### 2 107104, 3656345, 66036604, 53387471, 75326086, 88795677, 5509654, 2189115, 7245482, 6682854 ####[facility] [address] [place] [address] Globulin (S) [Mass/Vol] 2.9 g/dL Normal 1.4-4.[address] [facility] Comment on above: Performed By: #### 2 375887, 9108404, 77481648, 50201208, 20099939, 83014787, 4457695, 8899926, 1659668, 8391944 ####[facility] [address] [place] [address] Protein [Mass/Vol] 7.1 g/dL Normal 6.0-7.[address] [facility] Comment on above: Performed By: #### 2 626266, 1236667, 48208393, 54131669, 45171143, 62929925, 2352467, 0502829, 9222672, 7108883 ####[facility] [address] [place] [address] Lipase Levelon 02-28-2021 Lipase [Catalytic activity/Vol] 33 U/L Normal 13-[address] [facility] Comment on above: Performed By: #### 2 647194, 8803438, 06935485, 38070141, 09862144, 18105328, 4130785, 3966108, 0271297, 2071665 ####[facility] [address] [place] [address] PT & PTTon 02-28-2021 aPTT Coag (PPP) [Time] 31.5 second(s) Normal 25.1-36.[address] [facility] Comment on above: Result Comment: Hepa rin therapeutic range (represented by Anti-Factor Xa activity of 0.2 - 0.4 U/mL) corresponds to PTT of 56.6 - 109.0 sec. Performed By: #### 2 274178, 1885076, 17399172, 62258519, 65732989, 65878597, 4118498, 4771484, 9701102, 6020335 ####[facility] [address] [place] [address] INR Coag (PPP) [Relative time] 1.1 {INR} Invalid Interpretation Code [facility] Comment on above: Result Comment: INR results are specifically intended to assess patients stabilized on long-term Anticoagulation therapy suggested INR?s ?Less Intensive Anticoagulation? 2.0 ? 3.0 Conventional Range 3.0 ? 4.5 Performed By: #### 2 805032, 1285294, 11850611, 58040210, 80694245, 38203687, 3223910, 7058439, 1741764, 7692772 ####[facility] [address] [place] [address] PT Coag (PPP) [Time] 13.1 second(s) High 10.2-12.[address] [facility] Comment on above: Performed By: #### 2 505519, 0182568, 22335576, 78663149, 76076382, 87103503, 9956226, 7858383, 9352343, 6517850 ####[facility] [address] [place] [address] Prescriptions/Work Noteson 0 02-28-2021 Prescriptions/Work Notes [id number]# 1.00CD:[address] [facility] Troponin 0 Hr.on 02-28-2021 Troponin I.cardiac [Mass/Vol] ng/mL Low 10.10-27.[address] [facility] Comment on above: Result Comment: The 95% CI (Confidence Interval) PPV (Positive Predictive Value) for myocardial infarction in females is 38 pg/mL, in males 51 pg/mL. The results should be used in conjunction with clinical conditions of myocardial infarction. (Access High Sensitivity Troponin I Instructions For Use, Yenifer Loki, January 2018) Performed By: #### 2 774138, 9480706, 20826781, 90428701, 68426083, 21508998, 8798607, 1951520, 4557610, 9552663 ####[facility] [address] [place] [address] XR Chest Single Viewon 02-28 XR Chest [...] MD Transcribed by: OLGA Technologist: YONG Kaplan [facility] eGFRon 02-28-2021 GFR/1.73 sq M.predicted among blacks MDRD (S/P/Bld) [Vol rate/Area] mL/min/{1.73_m2} Normal >=[address] [facility] Comment on above: Order Comment: Order added by Discern Expert. Result Comment: eGFR is race adjusted. AA=. Performed By: #### 2 092994, 3583523, 21696441, 05902731, 11078615, 54724816, 2384876, 3694613, 4395845, 1511669 ####[facility] [address] [place] [address] GFR/1.73 sq M.predicted among non-blacks MDRD (S/P/Bld) [Vol rate/Area] mL/min/{1.73_m2} Normal >=[address] [facility] Comment on above: Order Comment: Order added by Discern Expert. Result Comment: Stained Glass Joiner bib kidney disease could be indicated at eGFR's of less than 60 mL/min/1.73m2. Kidney failure is indicated at less than 15 mL/min/1.73m2. Performed By: #### 2 026408, 1992829, 63992169, 40362185, 23566486, 43305425, 3736953, 3353574, 9822079, 8523281 ####[facility] [address] [place] [address] C Urineon 08-11-2021 Bacteria identified Cx Nom [...] Locations R1: This test was performed at: [facility], [address] [place] [address], [address] , , Normal [facility] Comment on above: Performed By: #### 1 7519053, 2910157 ####[place] [address] [place] [address] Coding Summary.on 02-01-2021 Coding Summary. [id number] G h0bWw+PGhlYWQ+CX4PUMB rR96dbTVobE9CP7vVLG9I XGWRSYVXGI5LMG1efNJ1Q JxpT1BektVo VunrxKWeXO16FZe6LKX0r QjfJSawfX5loYRaW6w0Lo RsJW25nR82VZqzULJmCcG 3LjZpbjsgbWFy D7weTtPsfCCaCfw+PHRhY mxlIHdpZHRoPScxMDAlJy IlzGltGX0yGh3gLPXlGBP vbGxhcHNlOiBj g2ibZHWeKHynUT5qhCzqN 3SquRN4JFHxx9t3Qb07sF I+HOUrROB7uUjlCMmgt49 6DmXis9zqSDZ2 jFTmFDteWIR5G04ao2N3T YSfECEoIPH7lHR2rN8qtF zshylqY7IsqXWpOhF5ZPR 8uUMdoP1tjVqv mchbeX2xRwn+M24PTM0WW CTTTO3FErm9X6UjEpqytS I+JV65AYFnYQ44lUXhiPC kk0bukAk6UgUp LYQhDLD2hSlbDUauo3ZuR SUtX50nmUWub9U8IMOyqH xvyGTaFkGkjRK3qK4oROk ervrdj6icohdc Ratkf3lnjr61hW46M92wL GqcAGFcUYE5SASkDVFblB ckzq7kdD5fIs4+KPdno1k xx8zksOv6WkRc FBWzefUkkVlsDIL9x9CrX y15E3XtiFgbe2UoLcv7up 33gFEym4N2sVZ6QYnbLND afT6xLAbwCoE0 YYAvVwFpvD03pVQeJUvjO i1ckGixeYsoQA8qGMApbz vmWMObrP4wNYTsjCRvhBn wUS6yJDZxppda z350BtRuGBS5FUJelMYxK 2HlyH2aZdYdCSXuXJEhO5 NnrEUvOYknU576YKnoFjK 5ORTstyRaM3Cz OYJklShtFpZ6n2N1Pb5Fw 6FvfpxzUBP7VZheGAO6Aq ToBkBtPoM1V2NxYgp1RBI baOruUZ7eR5Oc MXLtmkfcvlrqfTX0XWKtD GNvsB96aJEsAGvxOr7wz9 A7d222ATDjWMUmaB21Ky8 udDogMTBwdCBU oY3hqbyss4aiqffsZgDrL MOgLCi7LSi7QRUjkAiuVi QvTCQ1BoY3ENH0oETjqL6 gcPmqtrnxgV7y Oyc+J74ynX4fWDZ2XJM3u ffeVQTwgyNqRC42EE48L2 RyPjwvdGFibGU+PGRpdiB moUkjSF3sXlAl u3bgh5BdUIugI8KsIQYjP FrwIhr3IHLuLAW4tGE5sD 0nPYLnUVjbp5U9dIT4A1R krwDpng8tb0ms ZKReSXmeX27ryRZgg3K0N YUnfQK2RTZyiYjjLcBpkK 93Oyc+MZIpsXykr4MgCzn fl0jbk2weiOz6 UyUaICAprcLsxJpxPPH8d 0VhMl61X06nURfwXVCwRY YyCPWjHOLvkZayld4uvV3 wIi8+PGNvbCB3 dAF5oR7oZCTuSmI4HSugM 989PoHsqVWlXrxhl0tmo0 neyVn3SmNvWLIfpcKmpSb vDGO0h7IkRi53 E42rCFmgFYEsJVGcPWLoO VFszGaiga5ywW9kPi0+PC 5ct0rfeq49vB14oHO+PHR jBWN7oSyiGYvf TWQucU5mXLqnJsR2CERmO rMvfL93zJDsGYdpTp4xkF ziuMjoCV0lEQMtmeqwo35 0OrHoe1frFFQw cAJnMIbtHNW8R58co1T8N RYoOOTzXVO5jBB4qD8gfW lnbjogbGVmdDsgdmVydGl jDPvuQQtnG328 IHRvcDsnPlBhdGllbnQgT gYkKEf8W0BvRhw3EKZogA hrGD0hwFCjXVxuLi3myLd saPxvRW4sSTAq odhgf191VoTrg8fdSVQrr JKsGBcjATQ8C34ui1S0UY NfYASzHDD6oCR5uI1xnYc nbjogbGVmdDsg jxBmeUpzGMosNAgbA641L HRvcDsnPkJpcnRoIERhdG G5VF53DG80vZMdj6T0pRJ 2U1GnWVGqrcev cfbevUB4AHFtEJMihQ98C k8srJoxJw9yXZIjROU0TE LfhVZeF5MgpD3iFeSwVON tMQWwF1ByeOLp TBzdI631QXzbGuU1DUDca kZrY7YqQVFuoPnbXvQ2a5 D3Tn1RH2K6AZ71UC88jHT xo2R4yWN3T6Xp EBSjbccxlrudxTH5YYZrT FRqmD52Oi6uoPfmPw6cWY LvKIM4KMHweHHhQ4QtkK3 yOiAjMDAwMDAw Y2IalNPcUTehY242OFjsZ cN9CKLeecDfC2EnYBBhoP rkAcS0g4P1Yv5PTQx1GB6 7ZT44vUKwa1W6 wCW5K1TiAPCltixsisfny TX3EWGoGQLgdX62Mm6evX wlQg9hMGWuBVC1BGFknCI pE1RogN0aSgOf JWIdICVtA6XsdFYrFAbxZ 514HWmvAuQ0SXOemlHiL7 FxAQJdvXstCsO6q0E2Od7 GJQHrSD17PNB9 gOE7TH68EK87X0ZxCyrad GFibGU+PHRhYmxlIHdpZH RoPScxMDAlJyBzdHlsZT0 jMg8wUBZaFIDm yJwmsNDzUzLcn4bfPMKgO GveCI4inHofK5MprHX9FL Nrq3n2Qv04B45zR2MshLG +UZBvjPH4wDU2 wD1rRaPtIuB7NTmnZ572R fHdwPKzNodad7iha1hsbP b7KnY9TVGtayChtQbtQEK 2b5LgQk34V75h IHdpZHRoPSIxNSUiIHZhb Xothm1btE2yGx3+PGNvbC I5aUH9xI1hRsAhHuK0XAn jD276QzNjbDFt Bjdef8ccp0cdzGk5NyJpW CGkkaCscQyjEDK4c8JuJf 40B7KvpEuvj6WgZud6us2 0yBNig0U1ySA4 X4IzOGDoutvciVKkaAyaO H9hUPQrkkepUHHxjC4gXS VwM8h3ReUnCnX0ORrfN3U byaR9TZKniOBt KHjpRYN5S16eu0E8QYWhG GRnXLM9dCB8aH7obHuutt ogbGVmdDsgdmVydGljYWw bAPnnF222LURr uZtwUEDcuW2jSAHnhJRdb RcvWA3fBWFrwmokPjUWUU LLWWPOWVmLQ1F8X0VqTip 8ZRRflSmjPC0r iZJaQLngIf0ykCzklJlvX O5nBSXnjodqJWMgrB7fPG UqpPUfdVqiXI4vAEMfkkh ac145UaIdROF2 DCLghOJjB0YbhZ1uEhCsR KBxZVJyM1RhbGEgJGxkF7 33XJcoGjI4FYRrpoUyN9B sLWFsaWduOiB0 y7J2Kk8pQV3iAe6iMPbxP O37GG75eEOwe5U3yGR1B9 IwNHQpnzymfdkklAX4DGF zCEEhuW92eKEe HAftAz9ze4V1k868BIRgA ICdrR11Du5pgAebFURovV DQmN4ztertg6prwopvUpH qOBFbMEs7AEn9 NCYisDivQyOuAIH9AgW7P WH1mMQeyE7laHjepwvgoP 9wOyc+YvnuLUBvdtY8C6W zNev9RIFyvNty FJ6gyPWjYHxkWx9voIptj TkkXV1kLETpflsvTJLuwP 4hGWNpsBZftFplJA2cCLS xrcxvh370NfYb WWA2AZXqxLVcM1AdxT0bH wQuMIJiXGJjF6LokZOaKY apV085GAheYgF0ZYBsuoR aK9SaGPMmjVrf ZaU7w8Q0El2SJF9ecSK9N 1TkJeq5VDXelWouMU9zgK FdPGesUc4eqXrwaBusJF3 wNTBpbjtwYWRk aC8pTLAskOXyeIfnWD8oW MDiovpka031RmSyWET7YL SbkGFaT4VwrN8eZcRaKUL uNONgF4HlxEHb SHopF241WXfmLmY2PSRln pNcQ0FxJQCxtXrmXpZ8c2 U0Qk3OgZDpP9IhZ0x4B3D kPjwvdHI+PC90 RHKhHB83pOFpbEIef7vcm Iy4FnGcDIQpVGH1kWacXH cmm1DrQOPfD17pnBYlw0M 6IGNvbGxhcHNl PdIhwZW2hK2yCBdlthlxz 1lbvvssPtmft8eyhb97oC 65C98bPWhxAHOeAONhESS bQAJmpPykec5t qM7zXa0+JAHnjYQ1uFV0h R7qEkSrRmU4UUvhO872Un FylVXfRkjus2mav2uyqTv 9IjIwJSIgdmFs zYqoVNS1v4PcHk46B26eR HdpZHRoPSIyMCUiIHZhbG lujb2xrT5zQy4+SP2nq2r nkl26wA93fZM+ DLBzOPB6iHkkYDgbOUAjp V4yLXurZjS0EBXnLqXwoQ 44eBHyDRroWy4fzDiktKg uAB9iGUIbmvrq m073UyEql6irEBCuvUFwF LkqCTX3J45ui3M5AZIkEK QzCXT2oWL1iD5jyTndcsx gbGVmdDsgdmVy lAkqPYmkVTfuK260LBSkq KboQfXfjEJcE5vdbgRQWI 1lOjwvdGQ+UFHjYKR0sMj xXUirDAIqaT2o TNFrS5y8JwQnSqX3BIxoL 8MesiB3XJOikHBsXSUdlD VSbE1yfilta3qylnpfXuL cJPGfXRc5KEo1 YBVhsQsgHuVsUSU1UuJ8U JH1mZYgxM0hqPilclfhvY 9wOyc+RklOOjwvdGQ+PHR zLGU6cAzkZSpa TNPzsR4dUWNjM0j3HwAmU zN4JTxaB2BmhgQ6VBCfhX EuIEArfGUXiJ4avfiyk7k vcjogIzAwMDAw HYd3BRk6IIQtyMlfDbOaT DS3DjP2ALW6tSXhdG5atU nvpuuokP6fKjz+TVJOOjw vdGQ+PHRkIHN0 vKfhDEobENKegX1lZHCjK 8k1EyMcYkK5HNrkJ8Zuly E6EVWhcQWySUXqcMMHlF2 czajhq8vusmpv BnVzWBNzBOa4MQa2AKGgv FdgLgAbUPG2UbR9EUY7fY JmoL0vgCwtrqficL2mKmr +FGE2SKM4LO68 DT25I3GqDhmsvQLuhDA+P HRhYmxlIHdpZHRoPScxMD DpAhNioEldYV6oDq8yENI yLWNvbGxhcHNl OiBj (more content not included)... Normal [facility] B hCG Qualon 01-31-2021 Beta hCG Ql Negative Normal [facility] Comment on above: Performed By: #### 2 825610, 5152661, 6400888, 07234142, 4840810, 31351893, 4903977 ####[facility] [address] [place] [address] Discharge Instructionson Discharge Instructions [id number]# 1.00CD:[address] [facility] ED Clinical Summaryon 2020 ED Clinical Summary [address] [address] ED Clinical Summary Person Information Name: RAJIV TOVAR [place] Age: 25 Years : 1995 Sex: Female Language: Bulgarian PCP: Alon Weber MD Marital Status: Single [...] 01/30/2021 23:43:48 01/30/2021 23:43:48 01/30/2021 23:43:48 ADDRESS: [address] [place] [id number] PHYS DOC NOTES: MEDICAL INFORMATION: Prescriptions Given: New Medications [id number], [address] [place], [place] [id number], [phone] cephalexin (Keflex 500 mg Cap) 1 Capsules [...] Follow up: With: Address: When: Alon Weber [address] [place] [address], [address] [place] [id number] Business (1) In 3 days 02/02/2021 DIAGNOSIS: Acute UTI Normal [facility] ED Note-Physicianon 02-01-20 ED Note-Physician CD:[id number]:[id number] 2 5ZT31sGamefKdn0dmmw1m GB4lFxDedvWjTZyhXp1cd 1ouOU12hh5sEzUfRb7+Cj rjPT7SXQuVXITr cY6kGVSUQjqNKpMnKP5xU eMZHl8PVMXqMIsLMGmkKB 9pAXO8gdqebE7fRL0tCRV fzREnUx6jk9j8 UrbhMa4eDz4UIf41kHNjv WWaIJPBT8entS0xFU7xcH FyT5PrIVLuEx2ZZMd7xKr btS8ecdH5Axy6 pPR4Wt06q9uewlNkc3YzB sI4EYkonXb1qWlvWWqwhH 9zHlSaTMPWcS2odQhyMI9 ekL8iutCwhWik biI+RbhpOJDxFkp9pKQnL V63J1HpqTckUnt7wUE5CK FrlNRrEIZnvHm3FCFOWNK BLUNvbXBhdGli wBKtQFPafmEwgdQ2FmkZW QKuAdHjTau6R5rpVNG+Cj pde6A2Wsj8NFp0AGS3hYr tFVWuk108YQJy gDgqzAipoVFvf14aGRVyw TKeCnQnj789NDIddnO8LF sbqZcvJgj3qICduWVnz2p ylNt3EkUiJQEp FgwFKDGheBiux4FfOvhHQ Crby6gcpjUuwBgmBVE2r2 ScXYuhFWImFFV2IlJvDF1 +CgkJPGNvbCB2 CWspB343OjDekYMba4gfr Ef3NnF8VCDoNk1UCPllY1 6iB2HrgON+Xsx3oPIoMAq +CgkJPHRyPgoJ BJd3rSOwb1T8pBG7PsMpo sRoe0p2MBomOFZ4QcJ7LA Q8zGVjbD5jzApvynjccF9 wOyI+CgkJCTxk gLVaF9elv3I4EkWwd3Ygb VcmuuMbRKMkJgCsy9ltHb suDBKqbZ3oTTY5SbOsCFO leHQiIGlkPSJf UcRxWROrXkTzHPZzVp38B lAuRJf1OPlnIuadYOY9Ql NxFwIwUcHjuMygUA1lpME kZGluZzogNHB4 OyI+QSPtZW4dP2bsq7L3J rIsq1KxuRnbmwCzk0OoMZ hsOynliPYhENB8pZmsLYA rx467LNzzyFrf rIdkGg7iMDjgrPG8uB5aP FBfrtK4yQ3iPbS3juDdaq zcoxV7Df1VRQNnFcJJypU usq7nmRauzikk k9Nodw77B5PeEG3+CgkJC KhgqRAuE9zvj3Z5DoOfw0 Jjg41tnrW7PR5vqHP6QHE lTMIiTdIqp1vd YmxlIGRkZnJlZXRleHQiI GEuVsL2eqYrd3T7nJ1vn7 G5vYV8OjZhoN2lkXzynZY uEXY8hLFavFou gZXlC3plENSTX4opQ90HY EDUKCWXKCEwEAl1QFfwYx QiIGlkPSJfYTMyMjFhZGU hXRQyTY50YbEl LSDnYKFpChS7GHQtGoU3E RX3Qs03t2UcfhSbbNyqVT 0cuEIeW3pgQnFpgAWqIUd xMmVvTXOahQ8m XrWnhVN7RNRmcMXkFAtxY 353VCjuPkF6GTQdrT9lTh KdK7ZlYMhcYSlrFRb5POU kvoPhz9O0bQA3 OI9vig6hnSngRr7wtX91I XuguND6BQ1byb7mfEdceN J3oV9bLYWaduB8bT1iDeH bu53qNnT+JiN4 JZV5Of8uuFXkyLmeoWsiA dVlVNXaEPB5IOniLGNjTU 4yA4jtCYw1E5AmGN3+PGJ yIC8+CgkJCSYj aHQdIccfFCn5ReeJKDtQP QFxgwBrdNXiwr3oZKSmty EheSD9dHZdBRBakR75CTT hWXXlMQA7OqBm HvocROYvvoyymXcfBS1nb P9vLSKlP1p0QsHnQS3sVp rnCoX4YJoaXBp4IEqhCXu jFQ54XKi8ADGj VTH5ZqAlEmBhYyAop1R4y AV3CfBjm1OuSPf1BQ7ytm C0Ky23W4Xefn4YXUiYFM3 kaXY+CgoJCQk8 BUn0UVFpGDFkPDFiJHWuK 6Cqm51fTJRmLLShRIErCK AaAUMdPXynp4PghVBjGLY 3LGf0IPFvhgPv n5WqZzuaUuOhNAprQPE3p H9mQ47hMZ8cTF2KKyTsWX QuNPGjWqJljWR2Mv25JnT 7UJM2XP19LtBo FVD1WCnrRAs6Ay3oTWFzU vPhZXI7OKsxYMM8zDmnPX GxVSNddS4uFuH0xOt6Ki9 3g1EbrvElwFLj kj1sMMDgJZW9cM0oMEzdm GxheSI+PIKnFT8sg4F9sE O1OgVupfEup0JhX3i0HtZ mo2ybNuW6DFh8 KGRqX21oEFRpw261GIFnS GVybGluZTsiPkNoaWVmIE AdjBIgUHlkkMhhi9Yqzt8 8A2SrCH2+CgoJ MHv1OSv6EPZvUHLiLGHxU GVtcmNvbnRlbnQiIGRkOm ZpayUbirT4xJMrFWRQXTI CXRRUF90COLJl WGDfStAvTgRyAN6xWVA9m GJ2MfPLTyDhZAx4WJFcUO ItRARTOm4QPPNiERLVBYA NHQF9QYOXMCLh gLY3Ox33ChTuYwroWz2yL XWaCZGgGuGrVqpfFv6vYV t1ZYHlSKlkWlOeTzeUQFu 4ZJg8WLViMDQx PSJkZGVtcmNvbnRlbnRpd KQpYNStxuVbp3UoAeotMy EpYNskq055WN35rRkiYX3 jXBDUS3SSUZ7I RUFTIiBkZDplbnRpdHlpZ S8bHFe4WHT9PSVnEhEykE Y5Al2vKFLxPmzgZo3fBGN hLTRkMWMtYjNl El53WYB2LWl0ELK1TsxlF HibuA9dPwWnULXFsZ0txI xsOY2kvL6wsbZflLstjfE +cHQgYXJyaXZl duZnl3BiyzdeyOLos2ybM WWlQVSxUMUjiE7wnXpbgV KlkGHceXMikJ3wvZwfHRV iNF4wWTKgNE9t E76jppN0nkN5zGPndfvhw KYuFFU9ZGdtZDUyiUwbVW DdHDOhKONzuhZkg7GrAWc zVU2rFVpchuJa gJVpSrBqceSxiM2jLYS3s 0FaFtslSIp4AccGGXz1B3 Lkgz3MWBoKMB5qhKM+Cgo ZDUv8HAv1JMMb YKZkXSHhBLPqR6Hzg74nL GRyZWZyZXNoYWJsZSBkZG bef0EmhWTbFTL3KEs7ZTO tzaSrf5LhEoos WwGzEPifXUO4xZ2sP77rJ O2eXW2BEnVwWYAcYsHqDu GrjTL4Yv0lV9ReWUX8XQ6 dErGjGFL2EsCm EGr4Ob3jTWI8YsA8QUbhJ JXeVXW5pIqiJMYtKEJzvW 4wTiP9bIp9Pk61s1BkflO sfFMqrf9rXQRa ZJI4iV6yVAkomFxucIK+P MXxWM2ld0H6uGV9CqAcop Bel7KkE3h5PvEgy6vfPvJ 7UAh2RNExN63c JDYse861LTFyVLSoxHlyI FbdLzokb9Aktyufe0RmVW Zax9YqzGRKaKihEYXyWV4 etOXgClbol2Zy bc4EYilJHVwjqWBqS9sqd 0F9SdQcRO4bF13lgNHleD QcFGW7K64mD7YpzZ7sJJP UChPvZNmri730 PA80zZueLN2dMZ8PV2IDX XYkSAVxXiWsXqRuTK9kSI D0hGF5YcKvRoAnOtU8TLS 3GARuIQTCRu40 ValMCKOWKgB5K8M0M3M8H ITbzEM3Ly2uTSS2ClxbDS 61BOCbBVLhBAYiUMIvMT3 4MAGfQSX3UKO3 GCczGtyZFGr0VFw0DLSeE XNzPSJkZGVtcmNvbnRlbn BodUVnGgYdSJxal216OG9 7jIwvRS1hZQUY L6RMHI8RQTZPYpIqBJhzw aDspBwcFO2yKIMfMVV9MV 42fCR6jdNem1tqdk4bDNQ vvHA7We52MTLo KgdqSQ6dNaegYAU2TOusM PP9Rc40MEL8XTJnYPWgLN TeVcuEIGd3HIm3GIToXTY zPSJkZGNvbXBv ggXvfMMuZFX6FG69cXW5h DL9sPA8zVK8NoLye7OfdZ WpjUNkvMS3Yy65Q7D4Dgh bTH4fW9RhHBPj GwkfXqN8Hj81MGShBrVvG OH5I8FvIioDKOo8HLm3LJ QeXGQaWMTwFQOwYQB7IPe 2BHRubhBih9Zl UuaiOvZwONnzjW6ugB3nx NhgL1I7zPjePIH0a2Tyhu lnaHQiIGlkPSJfMjlkMjM 7HFUbTHXzFM68 Cth9ITNcLhYqCHn0FNl7N wM3QtK4Sx7CSWuhu7MpN7 qnUdBjwWWsLYAmWlZ1JEX cOZ6eUQOaLJ6c wIDcp7s7tGPIUObns7Mkk 1IqznozpyRzpYF3taKwgg UjUX82xzW3iLXiVRLnoYL tmnIzpQQ6n8V7 EH0eWJgeoFKezDv4vJNrr WNfzKNiP2VmUX2gB2VbDM 1uhE1suKLcCUomFDVxBVC wY8XjSXZpVH4p AXIktW4rrL7nNHCwPSMrb rT7eKEpcJChdGtmJREoS9 JpYmVkIGFzIHNoYXJwLCB ffoWhx1WcQTPh x27xrWx3LGQwSGzopLExY EXiGWhmd1zrTOMvRAV6XC reDruzMM3iJQqyc1CeCRB nJ9niQAE1etWe bnRseSByYXRlZCBhdCBhI XivXFAeIB0wEAiczjT4w1 rtjeQjQSCdrGNzjD9xjTs zACFwh9ZnOAXp gG6hw0L3ZC0nVKCti9UgG ELnWSJ6qWIdQL2bos6sUC HizPRqHKC7i6NfyTYtOX2 oTFQiZEL2JE3f yKicTnV4WSHxQX0or5FiX CseuPM4gXVqEY0xRIXxDP 2ke0S8tPK9GwUyWFEaigu ngT5xFpTasUq0 JPJoVUWzlkpeMw49wA1wL dFpsJf8YI7fcodwlu30a8 K0ZQMsfDljvHHcF1guNMG vdHRvbTogMHB4 OyI+Ix3ngNqktR8jaMLaE dOlqPOnBGeuq1XgxvErYv wuv7Btfo3zU5ggHDp6o4A kkdUfqGqtKJ3l mXRhVQmoRv54i2H0MSKdc FvfcWMcPLugCj5du4E7q2 07LCMtvMguyUIcP9qpISI zpRqzRXK7NmPc Y (more content not included)... Normal [facility] Comment on above: Result Comment: Elec [...] this condition includes: ? Antibiotic medicine. ? Swfk-xnb-zszfrpx medicines to treat discomfort. ? Drinking enough [...] these instructions at home: Medicines ? Take xrcd-tyg-przyhvy and prescription medicines only as told by [...] This in (more content not included)... Normal [facility] ED Patient Summaryon 021 ED Patient Summary [address] [address] Patient Discharge Instructions Person Information Name: RAJIV TOVAR Age: 25 Years Arrival Date: 01/30/2021 20:17:08 Discharge Diagnosis: Acute UTI Primary Care Physician: Alon Weber MD Provider Information Primary Provider: Joshua Hollingsworth DO Advanced Collar Packer:None The exam and treatment you received in the Emergency Department were for an urgent problem and are not intended as complete care. It is important that you follow up with a doctor, nurse practitioner, or physician?s promotions assistant for ongoing care. If your symptoms become worse or you do not improve as expected and you are unable to reach your usual health care provider, you should return to the Emergency Department. We are available 24 hours a day. AKHILRAJIV has been given the following list of patient education materials, prescriptions and follow-up instructions: Follow-up Instructions: With: Address: When: Alon Weber [employer] [facility], [address] [place] [id number] Business (1) In 3 days 02/02/2021 In the event that this physician does not participate in your insurance network, please consult with your insurance company to find a nearby participating provider. Patient Education Materials: Urinary Tract Infection, Adult A MESSAGE TO ALL PATIENTS REGARDING OPIOIDS PRESCRIPTION OPIOIDS: WHAT YOU NEED TO KNOW Prescription opioids can be used to help relieve lmlfzvlz-lz-gnfuhr pain and are often prescribed following a [...] be struggling with addiction, tell your health sub acute care nurse and ask for guidance or call [facility] National Helpline at 1-837-991-HELP. v Source: [place] Department of Health a (more content not included)... Normal [facility] UA With Cult Reflexon 2020 Bacteria LM Ql (Urine sed) 1+ /HPF Abnormal Trace [facility] Comment on above: Performed By: #### 1 [id number] ####[facility] [id number] [place] [address] Bilirubin Ql (U) Negative Normal Negative [facility] Comment on above: Performed By: #### 1 [id number] ####[facility] [id number] [place] [address] Clarity (U) CLOUDY Abnormal Clear [facility] Comment on above: Performed By: #### 1 [id number] ####[address] [address] Color (U) YELLOW Normal Yellow [facility] Comment on above: Performed By: #### 1 [id number] ####[facility] [id number] [place] [id number] Crystals LM Ql (Urine sed) Present Normal [facility] Comment on above: Performed By: #### 1 [id number] ####[place] [id number] Epithelial cells.squamous LM.HPF (Urine sed) [#/Area] 0-2 Normal 0-[address] [facility] Comment on above: Performed By: #### 1 3427022, 2445986 ####[place] [address] Glucose Test strip (U) [Mass/Vol] Negative Normal Negative [facility] Comment on above: Performed By: #### 1 5617210, 3151342 ####[address] [address] Hemoglobin Ql (U) TRACE Abnormal Negative [facility] Comment on above: Performed By: #### 1 9617762, 0830561 ####[address] [address] Ketones (U) [Mass/Vol] Negative Normal Negative [facility] Comment on above: Performed By: #### 1 5574068, 1586069 ####[address] [address] Isabela.plasma/Lithi um.RBC (Bld) [Mass ratio] 0-3 Normal 0-[address] [facility] Comment on above: Performed By: #### 1 4102633, 7938797 ####[address] [address] Mucus Ql (Urine sed) TRACE Normal [facility] Comment on above: Performed By: #### 1 5989608, 9473425 ####[address] [address] Nitrite Ql (U) Positive Abnormal Negative [facility] Comment on above: Performed By: #### 1 0898242, 4408932 ####[place] [address] pH (U) 7.5 [pH] Invalid Interpretation Code 5.0-9.[address] [facility] Comment on above: Performed By: #### 1 3093734, 0008997 ####[place] [address] Protein (U) [Mass/Vol] Negative Normal Negative [facility] Comment on above: Performed By: #### 1 1005339, 9006145 ####[place] [address] Specific gravity (U) [Rel density] 1.020 Invalid Interpretation Code 1.005-1.[address] [facility] Comment on above: Performed By: #### 1 6649393, 5258485 ####[place] [address] Type of Urine collection method Clean Catch Normal [facility] Comment on above: Performed By: #### 1 6820563, 1469512 ####[place] [address] Urobilinogen Qn (U) 0.2 {Arnie'U}/dL Normal 0.0-1.[address] [facility] Comment on above: Performed By: #### 1 8866974, 8182585 ####[place] [address] WBC Auto Ql (U) 1+ Abnormal Negative [facility] Comment on above: Performed By: #### 1 4808798, 4155645 ####[address] [address] WBC LM.HPF (Urine sed) [#/Area] 6-15 Abnormal 0-[address] [facility] Comment on above: Performed By: #### 1 5118428, 7291951 ####[facility] [address] [place] [address] Auto Diffon 01-30-2021 Basophils/100 WBC (Bld) 0.4 % Normal 0.0-2.[address] [facility] Comment on above: Order Comment: Order Added by Discern Expert. Performed By: #### 2 512529, 8947808, 4605756, 16580881, 5054596, 54432389, 2893812 ####[place] [address] [place] [address] Basophils/Leukocytes Auto (Bld) [Pure # fraction] 0.0 E9/L Normal 0.0-0.[address] [facility] Comment on above: Order Comment: Order Added by Discern Expert. Performed By: #### 2 475424, 2156632, 3403840, 34010875, 2938820, 29794728, 1941249 ####[facility] [address] [place] [address] Eosinophils/100 WBC (Bld) 1.4 % Normal 0.0-8.[address] [facility] Comment on above: Order Comment: Order Added by Discern Expert. Performed By: #### 2 655044, 8300562, 6410286, 54768067, 0747494, 18407153, 0750690 ####[place] [address] [place] [address] Eosinophils/Leukocyt es Auto (Bld) [Pure # fraction] 0.1 E9/L Normal 0.0-0.[address] [facility] Comment on above: Order Comment: Order Added by Discern Expert. Performed By: #### 2 929405, 1987152, 2496944, 01117945, 4304779, 73826024, 6695781 ####[place] [address] [place] [address] Lymphocytes/100 WBC (Bld) 23.7 % Normal 14.0-50.[address] [facility] Comment on above: Order Comment: Order Added by Yifan Expert. Performed By: #### 2 387840, 3578569, 0703727, 52891070, 9556731, 54627440, 9082221 ####[facility] [address] [place] [address] Lymphocytes/Leukocyt es Auto (Bld) [Pure # fraction] 1.9 E9/L Normal 1.0-4.[address] [facility] Comment on above: Order Comment: Order Added by Discern Expert. Performed By: #### 2 613911, 7608408, 5211409, 50355591, 9291996, 30194559, 7122130 ####[place] [address] [place] [address] Monocytes/100 WBC (Bld) 6.2 % Normal 4.0-14.[address] [facility] Comment on above: Order Comment: Order Added by Yifan Expert. Performed By: #### 2 810408, 8751998, 6614452, 10369353, 9319421, 24547667, 3851395 ####[facility] [address] [place] [address] Monocytes/Leukocytes Auto (Bld) [Pure # fraction] 0.5 E9/L Normal 0.2-1.[address] [facility] Comment on above: Order Comment: Order Added by Yifan Expert. Performed By: #### 2 102034, 1183918, 0080065, 54731760, 6822998, 87255259, 7603732 ####[place] [address] [place] [address] Neutrophils/100 WBC (Bld) 68.3 % Normal 36.0-75.[address] [facility] Comment on above: Order Comment: Order Added by Yifan Expert. Performed By: #### 2 700596, 8544503, 1282826, 00145680, 9929581, 17281574, 9916002 ####[facility] [address] [place] [address] Neutrophils/Leukocyt es Auto (Bld) [Pure # fraction] 5.6 E9/L Normal 2.0-7.[address] [facility] Comment on above: Order Comment: Order Added by Discern Expert. Performed By: #### 2 638933, 3827503, 0525780, 68608150, 3585971, 88679178, 5669896 ####[facility] [address] [place] [address] BMPon 01-30-2021 Calcium [Mass/Vol] 9.0 mg/dL Normal 8.9-11.[address] [facility] Comment on above: Performed By: #### 2 047699, 5811847, 5533771, 60258271, 3871789, 62982612, 3443052 ####[facility] [address] [place] [address] Creatinine [Mass/Vol] 0.7 mg/dL Normal 0.5-1.[address] [facility] Comment on above: Performed By: #### 2 006272, 3898212, 4882416, 43549447, 1067683, 98283590, 2276855 ####[facility] [address] [place] [address] Urea nitrogen [Mass/Vol] 10 mg/dL Normal 5-[address] [facility] Comment on above: Performed By: #### 2 363955, 1375698, 5781129, 04755307, 9083732, 05968857, 6651078 ####[facility] [address] [place] [address] Urea nitrogen/Creatinine [Mass ratio] 14 No Units Normal 10-[address] [facility] Comment on above: Performed By: #### 2 743084, 1606082, 8330458, 65990514, 6937182, 50410092, 1903652 ####[facility] [address] [place] [address] Anion gap [Moles/Vol] 12 mmol/L Normal 6-[address] [facility] Comment on above: Performed By: #### 2 253667, 2500764, 6128152, 51164886, 5564245, 17279320, 5999596 ####[facility] [address] [place] [address] Chloride [Moles/Vol] 104 mmol/L Normal 101-111 [facility] Comment on above: Performed By: #### 2 521305, 6270612, 8722714, 75013168, 8790346, 99480461, 2687723 ####[facility] [address] [place] [address] CO2 [Moles/Vol] 25 mmol/L Normal 21-31 [facility] Comment on above: Performed By: #### 2 019192, 0366857, 4004472, 65580232, 7880797, 06246386, 9144691 ####[facility] [address] [place] [address] Glucose [Mass/Vol] 93 mg/dL Normal 55-[address] [facility] Comment on above: Result Comment: If t his glucose result represents a fasting glucose, interpretation should refer to the following reference range: 55-99 mg/dL Performed By: #### 2 045998, 0300550, 5431423, 85478100, 0671562, 51875252, 8085977 ####[facility] [address] [place] [address] Potassium [Moles/Vol] 3.8 mmol/L Normal 3.5-5.[address] [facility] Comment on above: Performed By: #### 2 411302, 4959274, 7973912, 92433764, 6378128, 09290015, 6158068 ####[facility] [address] [place] [address] Sodium [Moles/Vol] 137 mmol/L Normal 135-[address] [facility] Comment on above: Performed By: #### 2 182208, 4500754, 2672817, 76440978, 7802644, 48660277, 0457731 ####[facility] [address] [place] [address] CBC w/ Auto Diffon 1 Erythrocyte distribution width (RBC) [Ratio] 12.2 % Normal 10.9-14.[address] [facility] Comment on above: Performed By: #### 2 596077, 8635811, 6794305, 22177705, 8662463, 01575867, 4825468 ####[facility] [address] [place] [address] Hematocrit (Bld) [Volume fraction] 39.3 % Normal 34.0-46.[address] [facility] Comment on above: Performed By: #### 2 278340, 0356188, 4604663, 03237322, 7171389, 39396722, 8928563 ####[facility] [address] [place] [address] Hemoglobin (Bld) [Mass/Vol] 13.3 g/dL Normal 12.0-16.[address] [facility] Comment on above: Performed By: #### 2 130196, 6888144, 3621243, 54570080, 7292829, 55985645, 4171881 ####[address] [address] MCH (RBC) [Entitic mass] 31.3 pg Normal 27.0-34.[address] [facility] Comment on above: Performed By: #### 2 784841, 4046868, 8339205, 35253530, 0534899, 36157468, 5343339 ####[address] [address] MCHC (RBC) [Mass/Vol] 34.0 g/dL Normal 31.4-36.[address] [facility] Comment on above: Performed By: #### 2 978627, 8894098, 2018053, 04006899, 8726845, 02787227, 6229235 ####[address] [address] MCV (RBC) [Entitic vol] 92.1 fL Normal 80.0-100.[address] [facility] Comment on above: Performed By: #### 2 017126, 9982792, 8662979, 12431389, 0168240, 60073783, 8289610 ####[facility] [address] [place] [address] Platelet mean volume (Bld) [Entitic vol] 9.2 fL Normal 6.4-10.[address] [facility] Comment on above: Performed By: #### 2 914944, 5290486, 7804378, 63974338, 7273398, 98451574, 8772908 ####[facility] [address] [place] [address] Platelets (Bld) [#/Vol] 214.0 E9/L Normal 150.0-500.[address] [facility] Comment on above: Performed By: #### 2 995993, 3015332, 9207570, 99100127, 9353859, 45765153, 2246784 ####[facility] [address] [place] [address] RBC (Bld) [#/Vol] 4.3 E12/L Normal 4.3-5.[address] [facility] Comment on above: Performed By: #### 2 775698, 6896748, 9308788, 78744102, 6928604, 11205529, 6812667 ####[place] [address] [place] [address] WBC corrected for nucl RBC Auto (Bld) [#/Vol] 8.2 E9/L Normal 4.0-11.[address] [facility] Comment on above: Performed By: #### 2 304778, 7869939, 9998756, 24221856, 0958734, 71563676, 3116577 ####[place] [address] [place] [address] Consent for Treatmenton Consent for Treatment [id number]#1 .00CD:[address] [facility] Hep Func Panelon 01-30-2021 Albumin [Mass/Vol] 4.0 g/dL Normal 3.3-5.[address] [facility] Comment on above: Performed By: #### 2 131930, 9725482, 5806097, 58799222, 5194324, 20125493, 8409972 #### [facility] [address] [place] [address] Albumin/Globulin (S) [Mass conc ratio] 1.5 Normal 1.1-2.[address] [facility] Comment on above: Performed By: #### 2 998633, 8160660, 9092127, 27568948, 8636463, 22142413, 5087331 #### [facility] [address] [place], [place] [address] ALP [Catalytic activity/Vol] 44 Int._Unit/L Normal 21-[address] [facility] Comment on above: Performed By: #### 2 157768, 9792665, 1011955, 09329275, 3742375, 66118496, 1294576 #### [facility] [address] [place] [address] ALT No additional P-5'-P [Catalytic activity/Vol] 20 Int._Unit/L Normal 6-[address] [facility] Comment on above: Performed By: #### 2 366070, 4786620, 3779356, 28416535, 4715448, 78666811, 1997681 #### [facility] [address] [place], [place] [address] AST [Catalytic activity/Vol] 16 Int._Unit/L Normal 5-[address] [facility] Comment on above: Performed By: #### 2 338862, 0137594, 3693899, 44827742, 6231771, 96421776, 2825865 #### [facility] [address] [place] [address] Bilirubin [Mass/Vol] 1.1 mg/dL Normal 0.0-1.1 [facility] Comment on above: Performed By: #### 2 832907, 5841314, 0179217, 96701980, 7193041, 34640476, 9728557 #### [facility] [address] [place] [address] Bilirubin.direct [Mass/Vol] 0.2 mg/dL Normal 0.1-0.[address] [facility] Comment on above: Performed By: #### 2 148546, 5309859, 5253321, 29692059, 2119317, 44601023, 2192752 #### [facility] [address] [place] [address] Bilirubin.indirect [Mass or moles/Vol] 0.9 mg/dL Normal 0.1-0.[address] [facility] Comment on above: Performed By: #### 2 126551, 6274486, 8963146, 09016113, 5186787, 04145446, 6548794 #### [facility] [address] [place] [address] Globulin (S) [Mass/Vol] 2.6 g/dL Normal 1.4-4.[address] [facility] Comment on above: Performed By: #### 2 478837, 7228878, 5134213, 17359947, 9519217, 83444211, 3570258 #### [facility] [address] [place] [address] Protein [Mass/Vol] 6.6 g/dL Normal 6.0-7.[address] [facility] Comment on above: Performed By: #### 2 000651, 0207250, 6457456, 17508824, 8534495, 30147359, 7543533 #### [facility] [address] [place] [address] Lipase Levelon 01-30-2021 Lipase [Catalytic activity/Vol] 32 U/L Normal 13-[address] [facility] Comment on above: Performed By: #### 2 605723, 3281034, 1466381, 84998116, 4590037, 38198390, 9789640 #### [facility] [address] [place] [address] eGFRon 01-30-2021 GFR/1.73 sq M.predicted among blacks MDRD (S/P/Bld) [Vol rate/Area] mL/min/{1.73_m2} Normal >=[address] [facility] Comment on above: Order Comment: Order added by Discern Expert. Result Comment: eGFR is race adjusted. AA=. Performed By: #### 2 874727, 0380535, 3499675, 39905779, 3428892, 17345941, 8861070 #### [facility] [address] [place] [address] GFR/1.73 sq M.predicted among non-blacks MDRD (S/P/Bld) [Vol rate/Area] mL/min/{1.73_m2} Normal >=[address] [facility] Comment on above: Order Comment: Order added by Discern Expert. Result Comment: Stained Glass Joiner bib kidney disease could be indicated at eGFR's of less than 60 mL/min/1.73m2. Kidney failure is indicated at less than 15 mL/min/1.73m2. Performed By: #### 2 710857, 0836426, 5727692, 43877168, 7383913, 88131759, 9390595 #### [facility] [address] [place] [address] Provider Letteron 06-03-2020 Provider Letter June 03, 2020 To Whom It May Concern, Rajiv has been under my care and had a lap choly on 05/10/2020. She was seen post operatively on 05/23/2020 and was healing well. Rajiv is released to work on 06/06/2020 with no restrictions. Please call the office at [phone] with any questions/ concerns. Sincerely, Dr. Aiden Izquierdo faxed to [facility] to [phone] [facility] Ambulatory Clinical Summaryo n 05-23-2020 Ambulatory Clinical Summary {[id number]}CD:[id number] Normal [facility] General Surgery Office/Clini c Noteon 05-23-2020 [...] prn Follow-up With When Contact Information Aiden IZQUIREDO MD Only if needed [address] [place] [address]- Additional Instructions: F/U PRN Problem List/Past Medical [...] 04/19/2020 Family History Family history is negative [facility] Comment on above: Result Comment: Elec tronically Signed By: Aiden IZQUIERDO MD\.br\Date and Time Signed: 05/23/20 10:17 EST\.br\Electronically Co-Signed By: Mildred Cook MA\.br\Date and Time Co-Signed: 05/23/20 09:55 EST IntraOperative Documentson 1 07-17-2019 IntraOperative Documents [id number]#1 .00CD:[address] [facility] Ambulatory Clinical Summaryo n 05-16-2020 Ambulatory Clinical Summary {[id number]}CD:[id number] [facility] Gastroenterology Office/Clin ic Noteon 05-16-2020 Gastroenterology Office/Clinic Note Chief Complaint f/u EGD HPI Staff This is a 25 year old female who presents today for a follow up to EGD. History of Present Illness 24 years old white female with no significant past medical history except for anxiety, referred to me from [facility], ER to be evaluated for right upper quadrant abdominal pain, she reports right upper quadrant abdominal pain, started 6 weeks ago, sporadic, moderate in nature except for the last time when it was severe for which she went to [facility], ER, she had normal CBC, CMP [...] Information Ezequiel MARTINEZ MD Only if needed [facility] [address] [place] [address]- Additional Instructions: Patient Education Cholelithiasis Problem List/Past [...] required. HOME CARE INSTRUCTIONS ? Only take qros-ppr-bcmmwpc or prescription medicines for pain, discomfort, or [...] Document Reviewed: 08/09/2011 ExitCare? Patient Information ?2013 [employer] [facility]. Normal [facility] Coding Summary.on 05-13-2020 Coding Summary. CODING DATE: 05/13/2020 FINAL [facility] STATUS: Home (Routine DC) PAYOR: Reba APC DESCRIPTION 5361 Level 1 Laparoscopy and Related Services ADMIT DX: REASON FOR VISIT DX: K81.1 Chronic cholecystitis FINAL DX: PRINCIPAL: K81.1 Chronic cholecystitis SECONDARY: K82.8 Other specified diseases of gallbladder F41.9 Anxiety disorder, unspecified PYMT PROC APC STAT DESCRIPTION DOCTOR NAME DATE 53671 5361 J1 Laparoscopy, surgical; Aiden IZQUIERDO MD 05/10/2020 cholecystectomy with cholangiography 00341 Anesthesia for Rodrigue Berry DOBakari 05/10/2020 intraperitoneal procedures in upper abdomen including laparoscopy; not otherwise specified NOTE: The code number assigned matches the documented diagnosis and / or procedure in the patient's chart. However, the narrative phrase printed from the coding software may appear abbreviated, or result in slightly different terminology. Revised Coded By: Eugenia Mae Revised Date Saved: 05/13/2020 02:09 pm [facility] Main OR Intraoperative Recor don 05-13-2020 Main OR Intraoperative Record IntraOp Document Type FT Summary Primary Physician: Aiden IZQUIERDO MD Finalized Date/Time: 05/13/20 11:07:53 Pt. Name: RAJIV TOVAR/Sex: 1995 Female Med Rec #: [id number] Physician: Aiden IZQUIERDO MD Financial #: [id number] Pt. Type: A Room/Bed: Admit/Disch: 05/10/20 07:43:57 - 05/10/20 15:00:00 Institution: Case Times FT Entry 1 Patient Times In Room 05/10/20 09:29:00 Out Room 05/10/20 10:27:00 Procedure Times Start 05/10/20 09:44:00 Stop 05/10/20 10:20:00 Anesthesia Times Start 05/10/20 09:29:00 Stop 05/10/20 10:27:00 Last Modified By: London TURNER, My Cummings 05/10/20 10:27:42 General Comments: 1011- dental technician instructor called dr. guo read xray dilated tapers distally can't exclude small stone possible spasm , Dr. Izquierdo stated understanding. - joan turner 05/13/2020 Chart opened to review and send charges. Angela Leavitt FIREPOT OPERATOR AND TENDER. Case Attendance FT Entry 1 Entry 2 Entry 3 Case Attendee Ankit AGUILAR, Linnea IZQUIERDO MD, Aiden ARAUJO MD, Ramandeep Cummings Role Performed Anesthesiologist Surgeon - Primary Surgeon - Assist 1 Locomotive Engineer Electric Time In 05/10/20 09:29:00 05/10/20 09:40:00 05/10/20 09:45:00 Time Out 05/10/20 10:27:00 05/10/20 10:21:00 05/10/20 10:20:00 Procedure CHOLECYSTECTOMY CHOLECYSTECTOMY CHOLECYSTECTOMY LAPAROSCOPIC W/ LAPAROSCOPIC W/ LAPAROSCOPIC W/ CHOLANGI(.) CHOLANGI(.) CHOLANGI(.) Comments DR HUSAIN SUPERVISING Last Modified By: Lnodon RN, My Callahan RN, My Callahan RN, My Cummings 05/10/20 10:27:43 05/10/20 10:27:43 05/10/20 10:27:43 Entry 4 Entry 5 Entry 6 Case Attendee London TURNER, My Villalba RN, Bernadette Ortiz Cert. Chief Librarian Music Department, Arlette Davila Role Performed Children Librarian - Primary Scrub - Primary Scrub - [...] Magalie R Role Performed Scrub - Primary Accounts Payables Clerk Time In 05/10/20 09:29:00 05/10/20 10:00:00 Time [...] Bray RN, Deejay Chowdhury RN, Angel Oglesby Chief Librarian Music Department, Carlos Rock CST, Macie C Time Out [...] By: Artemio (more content not included)... Normal [facility] Postoperative Documentson Postoperative Documents [id number]# 1.00CD:[address] [facility] Progress Note-Physicianon Progress Note-Physician Patient: RAJIV [...] tab(s), Refills(s) 0, Pharmacy: [facility]/pharmacy #[id number], 168, cm, 04/19/20 6:20:00 EDT, Height/Length Dosing, 58.5, kg, 04/19/20 6:20:00 EDT, Weight Dosing omeprazole 40 mg Cap-DR: 40 mg = 1 cap(s), Oral, Daily, # 30 cap(s), Refills(s) 2, Pharmacy: [facility]/pharmacy #[id number], 168, cm, 04/20/20 10:06:00 EDT, Height/Length Dosing, 59.5, kg, 04/20/20 10:06:00 EDT, Weight Dosing Documented Medications Documented desvenlafaxine 100 mg Tab-: 100 mg = 1 tab(s), Oral, Daily, Refills(s) 0, Depression Problem list: All Problems Biliary dyskinesia / SNOMED CT 422032347 / Confirmed Depression / SNOMED CT 62245065 / Confirmed Histories Past Medical History: No active or resolved past medical history items have been selected or recorded. Family History: Entire family history is negative. Procedure history: EGD (esophagogastroduoden oscopy) gastric outlet reduction (1367061377) on 04/29/2020 at 25 Years. section ([id number]) on 07/23/2019 at 24 Years. Sinus (8655630812). Nasal cautery (336055971). Ankle (6805811). Comments: 05/10/2020 8:24 EST - [employer] NEW ACCOUNTS REPRESENTATIVE, Bernarda Bilateral ankle stabilazation for flat feet Diagnostic laparoscopy (349353108). Comments: 05/10/2020 8:26 EST - [employer] NEW ACCOUNTS REPRESENTATIVE, Bernarda ovarian cyst drained Social History Social [...] EST Heart (more content not included)... Normal [facility] Comment on above: Result Comment: Elec [...] All Problems Biliary dyskinesia / SNOMED CT 309839251 / Confirmed Depression / SNOMED CT 74598925 / Confirmed Physical Examination Vital Signs 05/10/2020 [...] 8:11 EST Apic (more content not included)... [facility] Comment on above: Result Comment: Elec tronically Signed By: Bakari Husain Jr, DO\.ilana\Date and Time Signed: 05/13/20 13:20 EST Coding Summary.on 05-12-2020 Coding Summary. CODING DATE: 05/12/2020 FINAL [facility] STATUS: Home (Routine DC) PAYOR: Reba [...] Jaquez CphT Date Saved: 05/12/2020 09:53 pm [facility] Consent for Anesthesiaon Consent for Anesthesia [id number]# 1.00CD:127 [facility] Discharge Instructionson Discharge Instructions [id number]# 1.00CD:127 [facility] IntraOperative Documentson 1 07-11-2019 IntraOperative Documents [id number]# 1.00CD:127 [facility] Operative Reporton 0 Operative Report Date of Surgery: 05/10/2020 SURGEON: Aiden Izquierdo MD, FACS SPINNING FRAME CHANGER: Ramandeep Araujo MD, FACS PREOPERATIVE DIAGNOSIS: Chronic [...] Aiden Izquierdo MD, FACS lkr Dictated: 05/10/2020 #[id number] Typed: 05/10/2020 #[id number] cc: Alon Weber M.D. Aiden Izquierdo MD, FACS [facility] Comment on above: Result Comment: Elec tronically Signed By: TIMBO POLK, Aiden Davila\.br\Date and Time Signed: 05/11/20 08:04 EST Preoperative Documentson Preoperative Documents [id number]# 1.00CD:127 [facility] Preoperative Documents [id number]# 1.00CD:127 [facility] Consent for Treatmenton 04-24 Consent for Treatment [id number]#1 .00CD:127 [facility] Inpatient Patient Summaryon 05-10-2020 Inpatient Patient Summary [address] [facility] Clinical Discharge Instructions PERSON INFORMATION Name: RAJIV TOVAR [facility]#:[id number] PHYSICIANS Admitting Physician: Aiden IZQUIERDO MD Attending Physician: Aiden IZQUIERDO MD PCP: Alon Weber MD Discharge Diagnosis: Chronic cholecystitis with calculus Comment: PATIENT EDUCATION INFORMATION Instructions: Post Op Patient Instructions - FT (CUSTOM); How to Use an Incentive Spirometer; Timbo - Post Op Instructions (CUSTOM) Medication Leaflets: Follow up: With: Address: When: Aiden IZQUIERDO [address], [address] [place] [address] [employer] (1) Within 7 to 10 days Comments: Call for any problems. Call for followup appointment Type Location [facility] Follow Up [facility] 05/16/2020 1:00 PM 05/16/2020 1:15 PM Confirmed MEDICATION LIST Medications to Continue with No Changes Other Medications desvenlafaxine (desvenlafaxine 100 mg Tab-) 1 Tablets By Mouth every day. omeprazole (omeprazole 40 mg Cap-DR) 1 Capsules By Mouth every day. Refills: 2. ondansetron (Zofran ODT 4 mg Tab) 1 Tablets By Mouth 3 times a day. Refills: 0. Comment: Normal [facility] IntraOperative Documentson 07-10-2019 IntraOperative Documents [id number]# 1.00CD:[address] [facility] Main OR PACU I Recordon 04-24 Main OR PACU I Record PACU Phase I Document Type FT Summary Primary Physician: Aiden IZQUIERDO MD Finalized Date/Time: 05/10/20 11:13:04 Pt. Name: RAJIV TOVAR/Sex: 1995 Female Med Rec #: [id number] Physician: Aiden IZQUIERDO MD Financial #: [id number] Pt. Type: A Room/Bed: Admit/Disch: 05/10/20 07:43:57 [...] By: Belkys Yarbrough RN 05/10/20 11:[address] [facility] Main OR PACU II Recordon Main OR PACU II Record PACU Phase II Document Type FT Summary Primary Physician: Aiden IZQUIERDO MD Finalized Date/Time: 05/10/20 15:45:07 Pt. Name: RAJIV TOVAR/Sex: 1995 Female Med Rec #: [id number] Physician: Aiden IZQUIERDO MD Financial #: [id number] Pt. Type: A Room/Bed: / Admit/Disch: 05/10/20 [...] Signed By: Marcelina Cadet RN 05/10/20 15:45 [facility] Main OR Preoperative Recordo n 05-10-2020 Main OR Preoperative Record PreOp Document Type FT Summary Primary Physician: Aiden IZQUIERDO MD Finalized Date/Time: 05/10/20 10:00:50 Pt. Name: RAJIV TOVAR /Sex: 1995 Female Med Rec #: [id number] Physician: Aiden IZQUIERDO MD Financial #: [id number] Pt. Type: A Room/Bed: [facility] Admit/Disch: 05/10/20 07:43:57 - Institution: Case Times [...] By: My Callahan RN 05/10/20 10:[address] [facility] Monitor Recordon 05-10-2020 Monitor Record [id number]# 1.00CD:[address] [facility] Outpatient Surgery Discharge Instructionon 05-10-2020 Outpatient Surgery Discharge Instruction [place] [address] Patient Discharge Instructions PERSON INFORMATION Name: RAJIV [...] Follow up: With: Address: When: [facility], [address] [place] [address] [facility] () Within 7 to 10 days Comments: Call for any problems. Call for followup appointment Type Location [facility] Follow Up [facility] 05/16/2020 1:00 PM 05/16/2020 1:15 PM Confirmed Pharmacy Information: Thank you for choosing [facility] HERE ARE THE MEDICATION CHANGES THAT OCCURRED [...] possible. ? If the spirometer includes a sustainability coach indicator, use this to guide you [...] from co (more content not included)... Normal [facility] Patient Education - Texton 1 07-10-2019 [...] possible. ? If the spirometer includes a sustainability coach indicator, use this to guide you [...] 10/21/2007 Document Revised: 07/03/2018 Document Reviewed: 04/23/2018 [employer] Patient Education ? 2019 [employer] [place], [place] Aiden Izquierdo MD, FACS POST OPERATIVE [...] or r (more content not included)... Normal [facility] Progress Note-Physicianon Progress Note-Physician Patient: RAJIV TOVAR Age: 25 years Sex: Female : 1995 Associated Diagnoses: None Author: Aiden IZQUIERDO MD Postoperative Information Date/ Time: 05/10/2020 10:26:00 Preoperative Diagnosis: Chronic cholecystitis with calculus ([id number] K80.10, Working, Medical). Postoperative Diagnosis: Same pending pathology. Procedure: Laparoscopic Cholecystectomy with intraoperative chloangiogram. Performed by: Aiden Izquierdo MD. Locomotive Engineer Electric: Ramandeep Araujo MD. Specimens Removed: Gallbladder. Estimated Blood Loss: 5 ml. Complications: None. Normal [facility] Comment on above: Result Comment: Elec tronically Signed By: Aiden IZQUIERDO MD\.br\Date and Time Signed: 05/10/20 10:27 EST Progress Note-Physician Patient: RAJIV TOVAR Age: 25 years Sex: Female : 1995 Associated Diagnoses: None Author: Aiden IZQUIERDO MD Basic Information No change in History and Physical Normal [facility] Comment on above: Result Comment: Elec [...] ALSO POSSIBLE. CLINICAL HISTORY: Cholelithiasis. COMMENT: Limited riawa-qt-mdfk C-arm images were obtained in the OR, [...] Dose: Evaserenity in mGy = 3.[address] [facility] Coding Summary.on 05-08-2020 Coding Summary. CODING DATE: 05/07/2020 FINAL [facility] STATUS: Home (Routine DC) PAYOR: [place] ADMIT DX: REASON FOR VISIT DX: Z01.812 [...] CphT Date Saved: 05/07/2020 10:24 pm Normal [facility] Coding Summary.on 05-05-2020 Coding Summary. CODING DATE: 05/05/2020 FINAL [facility] STATUS: Home (Routine DC) PAYOR: Reba APC DESCRIPTION 5301 Level 1 Upper GI Procedures ADMIT DX: REASON FOR VISIT DX: R10.13 Epigastric pain FINAL DX: PRINCIPAL: R10.13 Epigastric pain SECONDARY: R10.11 Right upper quadrant pain F41.9 Anxiety disorder, unspecified PYMT PROC APC STAT DESCRIPTION DOCTOR NAME DATE [id number] Ezequiel WEST MD 04/29/2020 phagogastroduodenosco py, flexible, transoral; with biopsy, single or multiple [id number] Anesthesia for upper Husain Bakari Berry DO [...] Mae Revised Date Saved: 05/05/2020 11:48 am [facility] Consent for Procedure/Surger yon 05-05-2020 Consent for Procedure/Surgery [id number]#1 .00CD:127 [facility] Formson 05-05-2020 Forms [id number]#1 .00CD:127 [facility] Priority Order-Mitchell 2019 Priority Order-STAT Comment Invalid Interpretation Code [facility] Comment on above: Result Comment: Rece ived Performed at: [facility] [address] [facility], [place], [place] [id number] [facility] Johanny Lozano Performed By: #### 2 [id number], SARS-CoV-2, MARY #### [facility] [address] [place] [address] SARS-CoV-2, NAAon 05-05-2020 SARS-CoV-2 (COVID-19) RNA MARY+probe Ql (Resp) Not detected Invalid Interpretation Code Not Detected [facility] Comment on above: Result Comment: This nucleic acid amplification test was developed and its performance characteristics determined by [employer]. Nucleic acid amplification tests include PCR and [...] detected) result in this assay. Performed at: [facility] [address] [facility] [place], [place] [id number] MD Indira Washington Performed By: #### 2 [id number], SARS-CoV-2, MARY #### [facility] [address] [place] [address] B hCG Qualon 05-04-2020 Beta hCG Ql Negative Normal [facility] Comment on above: Performed By: #### 2 [id number] #### [facility] [address] [place] [address] CBC w/Indiceson 05-04-2020 Erythrocyte distribution width (RBC) [Ratio] 13.1 % Normal 10.9-14.[address] [facility] Comment on above: Performed By: #### 2 040279, [id number] ####[address] [address] Hematocrit (Bld) [Volume fraction] 40.5 % Normal 34.0-46.[address] [facility] Comment on above: Performed By: #### 2 620084, 1082379 ####[address] [address] Hemoglobin (Bld) [Mass/Vol] 14.0 g/dL Normal 12.0-16.[address] [facility] Comment on above: Performed By: #### 2 832805, 0466547 ####[address] [address] MCH (RBC) [Entitic mass] 31.0 pg Normal 27.0-34.[address] [facility] Comment on above: Performed By: #### 2 778457, 7139791 ####[address] [address] MCHC (RBC) [Mass/Vol] 34.6 g/dL Normal 31.4-36.[address] [facility] Comment on above: Performed By: #### 2 218965, 8661607 ####[address] [address] MCV (RBC) [Entitic vol] 89.7 fL Normal 80.0-100.[address] [facility] Comment on above: Performed By: #### 2 713626, 0739194 ####[address] [address] Platelet mean volume (Bld) [Entitic vol] 9.1 fL Normal 6.4-10.[address] [facility] Comment on above: Performed By: #### 2 412162, 3214335 ####[address] [address] Platelets (Bld) [#/Vol] 245.0 E9/L Normal 150.0-500.[address] [facility] Comment on above: Performed By: #### 2 614064, 6327546 ####[facility] [address] [place] [address] RBC (Bld) [#/Vol] 4.5 E12/L Normal 4.3-5.[address] [facility] Comment on above: Performed By: #### 2 789918, 2818437 ####[address] [address] WBC corrected for nucl RBC Auto (Bld) [#/Vol] 5.6 E9/L Normal 4.0-11.[address] [facility] Comment on above: Performed By: #### 2 571783, 8394306 ####[address] [address] Consent for Treatmenton 04-24 Consent for Treatment [id number]#1 .00CD:[address] [facility] Hep Func Panelon 05-04-2020 Albumin [Mass/Vol] 4.2 g/dL Normal 3.3-5.[address] [facility] Comment on above: Order Comment: if no t already done. Performed By: #### 2 506597, 6934993 ####[address] [address] Albumin/Globulin (S) [Mass conc ratio] 1.4 Normal 1.1-2.[address] [facility] Comment on above: Order Comment: if no t already done. Performed By: #### 2 761209, 8778499 ####[address] [address] ALP [Catalytic activity/Vol] 112 Int._Unit/L High 21-[address] [facility] Comment on above: Order Comment: if no t already done. Performed By: #### 2 859822, 7477187 ####[facility] [address] [place] [address] ALT No additional P-5'-P [Catalytic activity/Vol] 129 Int._Unit/L High 6-[address] [facility] Comment on above: Order Comment: if no t already done. Performed By: #### 2 721886, 6504460 ####[facility] [address] [place] [address] AST [Catalytic activity/Vol] 28 Int._Unit/L Normal 5-[address] [facility] Comment on above: Order Comment: if no t already done. Performed By: #### 2 470393, 2427862 ####[facility] [address] [place] [address] Bilirubin [Mass/Vol] 0.7 mg/dL Normal 0.0-1.1 [facility] Comment on above: Order Comment: if no t already done. Performed By: #### 2 386134, 2746071 ####[address] [address] Bilirubin.direct [Mass/Vol] 0.1 mg/dL Normal 0.1-0.[address] [facility] Comment on above: Order Comment: if no t already done. Performed By: #### 2 959659, 6432308 ####[address] [address] Bilirubin.indirect [Mass or moles/Vol] 0.6 mg/dL Normal 0.1-0.[address] [facility] Comment on above: Order Comment: if no t already done. Performed By: #### 2 591530, 9862675 ####[facility] [address] [place] [address] Globulin (S) [Mass/Vol] 3.1 g/dL Normal 1.4-4.[address] [facility] Comment on above: Order Comment: if no t already done. Performed By: #### 2 848772, 3915823 ####[facility] [address] [place] [address] Protein [Mass/Vol] 7.3 g/dL Normal 6.0-7.[address] [facility] Comment on above: Order Comment: if no t already done. Performed By: #### 2 706255, 6022163 ####[facility] [address] [place] [address] Ambulatory Clinical Summaryo n 11-10-2020 Ambulatory Clinical Summary {[id number]}CD:[id number] [facility] Consent for Procedure/Surger yon 05-03-2020 Consent for Procedure/Surgery [id number]#1 .00CD:127 [facility] Consent for Procedure/Surgery [id number]#1 .00CD:127 [facility] Formson 05-03-2020 Forms [id number]#1 .00CD:127 [facility] Forms [id number]#1 .00CD:127 [facility] Physician Orderon 05-03-2020 Physician Order [id number]#1 .00CD:127 [facility] Physician Referralon 020 Physician Referral [id number]#1 .00CD:127 [facility] Postoperative Documentson Postoperative Documents [id number]# 1.00CD:127 [facility] Progress Note-Physicianon Progress Note-Physician Patient: RAJIV [...] tab(s), Refills(s) 0, Pharmacy: [facility]/pharmacy #[id number], 168, cm, 04/19/20 6:20:00 EDT, Height/Length Dosing, 58.5, kg, 04/19/20 6:20:00 EDT, Weight Dosing omeprazole 40 mg Cap-DR: 40 mg = 1 cap(s), Oral, Daily, # 30 cap(s), Refills(s) 2, Pharmacy: [facility]/pharmacy #[id number], 168, cm, 04/20/20 10:06:00 [...] Cardiovascular: Regular rhythm. Neurologic: Alert, Oriented. Plan [place] [employer] Anesthesiologists (ASA) physical status classification: Class II. Anesthetic Preoperative Plan Anesthesia: General. . Anesthetic plan, risks, benefits, and alternatives discussed with the patient and/or family. Communication: face to face with (patient 5 minutes, Patient educated on smoking cesstation). Normal [facility] Comment on above: Result Comment: Elec [...] vomiting. Plan Transfer/ Discharge: Condition stable. Normal [facility] Comment on above: Result Comment: Elec tronically Signed By: Bakari Husain Jr, DO\hammad\Date and Time Signed: 05/03/20 09:37 EST Consenton 05-02-2020 Consent [id number] .00CD:[address] [facility] Discharge Instructionson Discharge Instructions [id number] .00CD:[address] [facility] General Surgery Office/Clini c Noteon 05-02-2020 [...] Contact Information TIMBO POLK, Aiden Davila [address] [facility] [facility] [place] [address]- Additional Instructions: F/U POST OP. [...] Family History Family history is negative Normal [facility] Comment on above: Result Comment: Elec tronically Signed By: Aiden IZQUIERDO MD\.br\Date and Time Signed: 05/02/20 15:39 EST\.br\Electronically Co-Signed By: Mildred Cook MA.br\Date and Time Co-Signed: 05/02/20 15:25 EST IntraOperative Documentson 1 07-02-2019 IntraOperative Documents [id number]#1 .00CD:127 [facility] IntraOperative Documents [id number]#1 .00CD:[address] [facility] Main OR Intraoperative Recor don 05-02-2020 Main OR Intraoperative Record IntraOp Document Type FT Summary Primary Physician: Ezequiel MARTINEZ MD Finalized Date/Time: 05/02/20 08:23:39 Pt. Name: RAJIV TOVAR/Sex: 1995 Female Med Rec #: [id number] Physician: Ezequiel MARTINEZ MD Financial #: [id number] Pt. Type: O Room/Bed: / Admit/Disch: 04/29/20 10:12:58 - 04/29/20 23:59:59 Institution: Case Times FT Entry 1 Patient Times In Room 04/29/20 10:52:00 Out Room 04/29/20 11:04:00 Procedure Times Start 04/29/20 10:56:00 Stop 04/29/20 10:59:00 Anesthesia Times Start 04/29/20 10:52:00 Stop 04/29/20 11:04:00 Last Modified By: Russell Maloney RN 04/29/20 11:04:12 General Comments: 05/02/2020 Chart opened to review and send charges. 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 Case Attendance FT Entry 1 Entry 2 Entry 3 Case Attendee Rodrigue Berry DO, Bakari MARTINEZ MD, Ezequiel Maloney RN, Russell [place] Role Performed Anesthesiologist of Surgeon - Primary Children Librarian - Primary Record Time In 04/29/20 10:52:00 04/29/20 10:52:00 04/29/20 10:52:00 Time Out 04/29/20 11:04:00 04/29/20 11:04:00 04/29/20 11:04:00 Procedure EGD(.) EGD(.) EGD(.) Comments Last Modified By: Haider TURNER, Russell Maloney RN, Russell Santos RN 04/29/20 11:04:13 04/29/20 11:04:13 04/29/20 11:04:13 Entry 4 Entry 5 Entry 6 Case Attendee Mere TURNER, Charlotte Roberts CST, Aria Role Performed Children Librarian - Primary Scrub - Primary Staff - [...] Arm P (more content not included)... Normal [facility] Ezequiel Martinez M.D. [address] [place] [address] Re: RAJIV TOVAR Date of : 1995 [...] report following her procedure. Sincerely Aiden Kaplan [facility] Coding Summary.on 04-30-2020 Coding Summary. CODING DATE: 04/29/2020 FINAL [facility] STATUS: Home (Routine DC) PAYOR: [place] ADMIT DX: REASON FOR VISIT DX: Z01.812 [...] Jaquez CphT Date Saved: 04/29/2020 11:14 pm [facility] Consent for Treatmenton Consent for Treatment [id number] .00CD:127 [facility] Endoscopic Procedure Report - Otheron 04-29-2020 [...] surgery for right upper quadrant pain/cholelithiasis Normal [facility] Comment on above: Result Comment: Elec tronically Signed By: Ezequiel MARTINEZ MD\.br\Date and Time Signed: 04/29/20 11:03 EST Other Comment: Lorri frazier Attachment - attachment storage system not supported [id number] Can be viewed in source systemMissing Attachment - attachment storage system not supported [id number] Can be viewed in source systemMissing Attachment - attachment storage system not supported [id number] Can be viewed in source systemMissing Attachment - attachment storage system not supported [id number] Can be viewed in source systemMissing Attachment - attachment storage system not supported [id number] Can be viewed in source system Inpatient Patient Summaryon 04-29-2020 Inpatient Patient Summary [address] [facility] Clinical Discharge Instructions PERSON INFORMATION Name: RAJIV TOVAR [facility]#:[id number] PHYSICIANS Admitting Physician: Ezequiel MARTINEZ MD Attending Physician: Ezequiel MARTINEZ MD PCP: Alon Weber MD Discharge Diagnosis: Abdominal pain Comment: PATIENT EDUCATION INFORMATION Instructions: Medication Leaflets: Follow up: With: Address: When: Aiden IZQUIERDO [address], [address] [place] [address] Business (1) With: Address: When: Ezequiel [facility] [address] [place] [address] Within 2 weeks Type Location [facility] Follow Up [facility] 05/16/2020 1:00 PM 05/16/2020 1:15 PM Confirmed [...] times a day. Refills: 0. Comment: Normal [facility] Main OR PACU I Recordon Main OR PACU I Record PACU Phase I Document Type FT Summary Primary Physician: Ezequiel MARTINEZ MD Finalized Date/Time: 04/29/20 12:13:51 Pt. Name: RAJIV TOVAR/Sex: 1995 Female Med Rec #: [id number] Physician: Ezequiel MARTINEZ MD Financial #: [id number] Pt. Type: O Room/Bed: / Admit/Disch: 04/29/20 [...] By: Belkys Yarbrough RN 04/29/20 12:[address] [facility] Main OR Preoperative Recordo n 04-29-2020 Main OR Preoperative Record Holding Area Document Type FT Summary Primary Physician: Ezequiel MARTINEZ MD Finalized Date/Time: 04/29/20 10:21:44 Pt. Name: RAJIV TOVAR/Sex: 1995 Female Med Rec #: [id number] Physician: Ezequiel MARTINEZ MD Financial #: [id number] Pt. Type: O Room/Bed: / Admit/Disch: 04/29/20 [...] By: Marielle Pineda RN 04/29/20 10:[address] [facility] Monitor Recordon 04-29-2020 Monitor Record [id number]# 1.00CD:[address] [facility] Outpatient Surgery Discharge Instructionon 04-29-2020 Outpatient Surgery Discharge Instruction [place] [id number] Patient Discharge Instructions PERSON INFORMATION Name: RAJIV [...] Aiden IZQUIERDO [address], [address] [place] [address] Business (1) With: Address: When: [facility] [address], [facility] [place] [address] Within 2 weeks Type Location [facility] Follow [facility] 05/16/2020 1:00 PM 05/16/2020 1:15 PM Confirmed Pharmacy Information: Thank you for choosing [facility] HERE ARE THE MEDICATION CHANGES THAT OCCURRED [...] Refills: 0. PATIENT EDUCATION INFORMATION Instructions: Normal [facility] Patient Education - Texton 1 06-29-2019 Patient Education - Text Normal [facility] Priority Order-Mitchell 2019 Priority Order-STAT Comment Invalid Interpretation Code [facility] Comment on above: Result Comment: Rece ived Performed at: [facility] [address] [place], [place] [id number] MD Indira Washington Performed By: #### 2 [id number], SARS-CoV-2, MARY #### [facility] [address] [place] [address] SARS-CoV-2, NAAon 04-23-2020 SARS-CoV-2 (COVID-19) RNA MARY+probe Ql (Resp) Not detected Invalid Interpretation Code Not Detected [facility] Comment on above: Result Comment: This nucleic acid amplification test was developed and its performance characteristics determined by [employer]. Nucleic acid amplification tests include PCR and [...] detected) result in this assay. Performed at: [facility] [address] [place], [place] [id number] MD Indria Washington Performed By: #### 2 [id number], SARS-CoV-2, MARY #### [facility] [address] [place] [address] Ambulatory Clinical Summaryo n 04-20-2020 Ambulatory Clinical Summary {[id number]}CD:[id number] Normal [facility] Coding Summary.on 04-20-2020 Coding Summary. CODING DATE: 04/20/2020 FINAL [facility] STATUS: Home (Routine DC) PAYOR: Reba [...] Revised Date Saved: 04/20/2020 07:55 am Normal [facility] Consent for Procedure/Surger yon 04-20-2020 Consent for Procedure/Surgery [id number] .00CD:[address] [facility] Gastroenterology Office/Clin ic Noteon 04-20-2020 Gastroenterology Office/Clinic Note Chief Complaint f/u to ER RUQ HPI Staff This is a 24 year old female who presents today for a follow up for an ED visit for RUQ pain. History of Present Illness 24 years old white female with no significant past medical history except for anxiety, referred to me from [facility] ER to be evaluated for right upper quadrant abdominal pain, she reports right upper quadrant abdominal pain, started 6 weeks ago, sporadic, moderate in nature except for the last time when it was severe for which she went to [facility] ER, she had normal CBC, [...] cap(s), Refills(s) 2, Pharmacy: [facility]/pharmacy #[id number], 168, cm, 04/20/20 10:06:00 EDT, Height/Length Dosing, 59.5, kg, 04/20/20 10:06:00 EDT, Weight Dosing EGD Endoscopy (Hospital Procedure) 2. Anxiety (F41.9: Anxiety disorder, unspecified) 3. Nausea (R11.0: Nausea) Ordered: omeprazole, 40 mg = 1 cap(s), Oral, Daily, # 30 cap(s), Refills(s) 2, Pharmacy: [facility]/pharmacy #[id number], 168, cm, 04/20/20 10:06:00 EDT, Height/Length Dosing, 59.5, kg, 04/20/20 10:06:00 EDT, Weight Dosing EGD Endoscopy (Hospital Procedure) Follow-up With When Contact Information Ezequiel MARTINEZ MD Within 2 weeks [facility] [address] [place] [address] [address] [place] [address]- Additional Instructions: Patient Education Abdominal Pain Abdominal [...] Family History Family history is negative Normal [facility] Comment on above: Result Comment: Elec [...] directed by your caregiver. ? Only take jges-sqb-pklbxby or prescription medicines for pain, discomfort, or [...] Document Reviewed: 01/26/2009 ExitCare? Patient Information ?2013 [employer] [facility]. Family Medicine Abdominal Pain Abdominal pain can [...] directed by your caregiver. ? Only take hcht-cyc-ddztspe or prescription medicines for pain, discomfort, or [...] Document Reviewed: 01/26/2009 ExitCare? Patient Information ?2013 [employer]. Normal [facility] Physician Orderon 04-20-2020 Physician Order [id number]# 1.00CD:[address] [facility] Physician Order [id number]#1. 00CD:[address] [facility] Auto Diffon 04-19-2020 Basophils/100 WBC (Bld) 0.6 % Normal 0.0-2.[address] [facility] Comment on above: Order Comment: Order Added by Discern Expert. Performed By: #### 2 [id number] #### [facility] [address] [place] [address] Basophils/Leukocytes Auto (Bld) [Pure # fraction] 0.0 E9/L Normal 0.0-0.[address] [facility] Comment on above: Order Comment: Order Added by Discern Expert. Performed By: #### 2 [id number] #### [facility] [address] [place] [address] Eosinophils/100 WBC (Bld) 0.2 % Normal 0.0-8.[address] [facility] Comment on above: Order Comment: Order Added by Discern Expert. Performed By: #### 2 [id number] #### [facility] [address] [place] [address] Eosinophils/Leukocyt es Auto (Bld) [Pure # fraction] 0.0 E9/L Normal 0.0-0.[address] [facility] Comment on above: Order Comment: Order Added by Discern Expert. Performed By: #### 2 [id number] #### [facility] [address] [place] [address] Lymphocytes/100 WBC (Bld) 34.4 % Normal 14.0-50.[address] [facility] Comment on above: Order Comment: Order Added by Discern Expert. Performed By: #### 2 [id number] #### [facility] [address] [place] [address] Lymphocytes/Leukocyt es Auto (Bld) [Pure # fraction] 2.5 E9/L Normal 1.0-4.[address] [facility] Comment on above: Order Comment: Order Added by Discern Expert. Performed By: #### 2 [id number] #### [facility] [address] [place] [address] Monocytes/100 WBC (Bld) 6.1 % Normal 4.0-14.[address] [facility] Comment on above: Order Comment: Order Added by Discern Expert. Performed By: #### 2 [id number] #### [facility] [address] [place] [address] Monocytes/Leukocytes Auto (Bld) [Pure # fraction] 0.4 E9/L Normal 0.2-1.[address] [facility] Comment on above: Order Comment: Order Added by Discern Expert. Performed By: #### 2 [id number] #### [facility] [address] [place] [address] Neutrophils/100 WBC (Bld) 58.7 % Normal 36.0-75.[address] [facility] Comment on above: Order Comment: Order Added by Discern Expert. Performed By: #### 2 [id number] #### [facility] [address] [place] [address] Neutrophils/Leukocyt es Auto (Bld) [Pure # fraction] 4.2 E9/L Normal 2.0-7.[address] [facility] Comment on above: Order Comment: Order Added by Discern Expert. Performed By: #### 2 [id number] #### [facility] [address] [place] [address] BMPon 04-19-2020 Creatinine [Mass/Vol] 0.8 mg/dL Normal 0.5-1.[address] [facility] Comment on above: Performed By: #### 2 [id number] #### [facility] [address] [place] [address] Urea nitrogen [Mass/Vol] 12 mg/dL Normal 5-[address] [facility] Comment on above: Performed By: #### 2 [id number] #### [facility] [address] [place] [address] Urea nitrogen/Creatinine [Mass ratio] 15 No Units Normal 10-[address] [facility] Comment on above: Performed By: #### 2 [id number] #### [facility] [address] [place] [address] Anion gap [Moles/Vol] 11 mmol/L Normal 6-[address] [facility] Comment on above: Performed By: #### 2 [id number] #### [facility] [address] [place] [address] Calcium [Mass/Vol] 9.7 mg/dL Normal 8.9-11.[address] [facility] Comment on above: Performed By: #### 2 [id number] #### [facility] [address] [place] [address] Chloride [Moles/Vol] 103 mmol/L Normal 101-111 [facility] Comment on above: Performed By: #### 2 [id number] #### [facility] [address] [place] [address] CO2 [Moles/Vol] 27 mmol/L Normal 21-31 [facility] Comment on above: Performed By: #### 2 [id number] #### [facility] [address] [place] [address] Glucose [Mass/Vol] 97 mg/dL Normal 55-[address] [facility] Comment on above: Result Comment: If t his glucose result represents a fasting glucose, interpretation should refer to the following reference range: 55-99 mg/dL Performed By: #### 2 [id number] #### [facility] [address] [place] [address] Potassium [Moles/Vol] 3.5 mmol/L Normal 3.5-5.[address] [facility] Comment on above: Performed By: #### 2 [id number] #### [facility] [address] [place] [address] Sodium [Moles/Vol] 137 mmol/L Normal 135-[address] [facility] Comment on above: Performed By: #### 2 [id number] #### [facility] [address] [place] [address] CBC w/ Auto Diffon Erythrocyte distribution width (RBC) [Ratio] 13.3 % Normal 10.9-14.[address] [facility] Comment on above: Performed By: #### 2 [id number] #### [facility] [address] [place] [address] Hematocrit (Bld) [Volume fraction] 37.6 % Normal 34.0-46.[address] [facility] Comment on above: Performed By: #### 2 [id number] #### [facility] [address] [place] [address] Hemoglobin (Bld) [Mass/Vol] 13.4 g/dL Normal 12.0-16.[address] [facility] Comment on above: Performed By: #### 2 [id number] #### [facility] [address] [place] [address] MCH (RBC) [Entitic mass] 31.9 pg Normal 27.0-34.[address] [facility] Comment on above: Performed By: #### 2 [id number] #### [facility] [address] [place] [address] MCHC (RBC) [Mass/Vol] 35.7 g/dL Normal 31.4-36.[address] [facility] Comment on above: Performed By: #### 2 [id number] #### [facility] [address] [place] [address] MCV (RBC) [Entitic vol] 89.2 fL Normal 80.0-100.[address] [facility] Comment on above: Performed By: #### 2 [id number] #### [facility] [address] [place] [address] Platelet mean volume (Bld) [Entitic vol] 9.4 fL Normal 6.4-10.[address] [facility] Comment on above: Performed By: #### 2 [id number] #### [facility] [address] [place] [address] Platelets (Bld) [#/Vol] 219.0 E9/L Normal 150.0-500.[address] [facility] Comment on above: Performed By: #### 2 [id number] #### [facility] [address] [place] [address] RBC (Bld) [#/Vol] 4.2 E12/L Low 4.3-5.[address] [facility] Comment on above: Performed By: #### 2 [id number] #### [facility] [address] [place] [address] WBC corrected for nucl RBC Auto (Bld) [#/Vol] 7.2 E9/L Normal 4.0-11.[address] [facility] Comment on above: Performed By: #### 2 [id number] #### [facility] [address] [place] [address] Consent for Treatmenton 03-25 Consent for Treatment [id number] .00CD:[address] [facility] Discharge Instructionson Discharge Instructions [id number]# 1.00CD:[address] [facility] ED Clinical Summaryon 2019 ED Clinical Summary [address] [address] ED Clinical Summary Person Information Name: RAJIV TOVAR/[facility] Age: 24 Years : 1995 Sex: Female Language: Bulgarian PCP: Alon Weber MD Marital Status: Single [...] 04/19/2020 08:58:55 04/19/2020 08:58:55 ADDRESS: [address] [facility] [id number] PHYS DOC NOTES: Addendum by Laureano Phillip DO on April 19, 2020 08:26:02 EDT MEDICAL INFORMATION: Prescriptions Given: New Medications [id number], [address], [place] [id number], [phone] dicyclomine (dicyclomine 20 mg Tab) 1 Tablets By Mouth 3 times a day for 7 Days. Refills: 0. ondansetron (Zofran ODT 4 mg Tab) 1 Tablets By Mouth 3 times a day. Refills: 0. PATIENT EDUCATION INFORMATION: Instructions: Cholelithiasis Follow up: With: Address: When: [facility], [address] [place] [address] Business (1) In 3 days 04/22/2020 DIAGNOSIS: 1:Abdominal pain; Biliary colic; Gall stone; Nausea Normal [facility] ED Note-Nursingon 04-19-2020 ED Note-Nursing Report received from Zacarias Cuevas RN. Patient resting on cart. Updated on plan of care. Denies any needs at this time. Call light in reach. Normal [facility] ED Note-Physicianon 04-19-20 20 ED Note-Physician [...] Diagnosis: Abdominal pain, cholelithiasis, biliary colic Normal [facility] Comment on above: Result Comment: Elec [...] medicine. HOME CARE INSTRUCTIONS ? Only take afqy-dkg-oshnqwt or prescription medicines for pain, discomfort, or [...] Document Reviewed: 12/02/2013 ExitCare? Patient Information ?2015 [employer]. This information is not intended to replace advice given to you by your health care provider. Make sure you discuss any questions you have with your health care provider. Normal [facility] ED Patient Summaryon 020 ED Patient Summary [address] [address] Patient Discharge Instructions Person Information Name: RAJIV TOVAR Age: 24 Years Arrival Date: 04/19/2020 06:10:12 Discharge Diagnosis: 1:Abdominal pain; Biliary colic; Gall stone; Nausea Primary Care Physician: Alon Weber MD Provider Information Primary Provider: Susana Belcher M.D. Advanced Collar Packer:None The exam and treatment you received in the Emergency Department were for an urgent problem and are not intended as complete care. It is important that you follow up with a doctor, nurse practitioner, or physician?s promotions assistant for ongoing care. If your symptoms become worse or you do not improve as expected and you are unable to reach your usual health care provider, you should return to the Emergency Department. We are available 24 hours a day. RAJIV TOVAR has been given the following list of patient education materials, prescriptions and follow-up instructions: Follow-up Instructions: With: Address: When: [facility], [address] [place] [address] Business (1) In 3 days 04/22/2020 In the event that this physician does not participate in your insurance network, please consult with your insurance company to find a nearby participating provider. Patient Education Materials: Cholelithiasis A MESSAGE TO ALL PATIENTS REGARDING OPIOIDS PRESCRIPTION OPIOIDS: WHAT YOU NEED TO KNOW Prescription opioids can be used to help relieve gbglppnm-ed-esbgca pain and are often prescribed following a [...] be struggling with addiction, tell your health sub acute care nurse and ask for guidance or call [facility] National Helpline at [phone] (more content not included)... Normal [facility] Hep Func Panelon 04-19-2020 Bilirubin.indirect [Mass or moles/Vol] UTC Abnormal 0.1-0.[address] [facility] Comment on above: Result Comment: Resu lt verified by Discern Rule. Performed result UTC (Unable to Calculate) was sent as an Alpha code due the inability to calculate a valid numeric value. Performed By: #### 2 [id number] #### [facility] [address] [place] [address] Albumin [Mass/Vol] 4.3 g/dL Normal 3.3-5.[address] [facility] Comment on above: Performed By: #### 2 [id number] #### [facility] [address] [place] [address] Albumin/Globulin (S) [Mass conc ratio] 1.5 Normal 1.1-2.[address] [facility] Comment on above: Performed By: #### 2 [id number] #### [facility] [address] [place] [address] ALP [Catalytic activity/Vol] 77 Int._Unit/L Normal 21-[address] [facility] Comment on above: Performed By: #### 2 [id number] #### [facility] [address] [place] [address] ALT No additional P-5'-P [Catalytic activity/Vol] 59 Int._Unit/L High 6-[address] [facility] Comment on above: Performed By: #### 2 [id number] #### [facility] [address] [place] [address] AST [Catalytic activity/Vol] 36 Int._Unit/L Normal 5-[address] [facility] Comment on above: Performed By: #### 2 [id number] #### [facility] [address] [place] [address] Bilirubin [Mass/Vol] 0.4 mg/dL Normal 0.0-1.1 [facility] Comment on above: Performed By: #### 2 [id number] #### [facility] [address] [place] [address] Bilirubin.direct [Mass/Vol] mg/dL Normal 0.1-0.[address] [facility] Comment on above: Performed By: #### 2 [id number] #### [facility] [address] [place] [address] Globulin (S) [Mass/Vol] 2.8 g/dL Normal 1.4-4.[address] [facility] Comment on above: Performed By: #### 2 [id number] #### [facility] [address] [place] [address] Protein [Mass/Vol] 7.1 g/dL Normal 6.0-7.[address] [facility] Comment on above: Performed By: #### 2 [id number] #### [facility] [address] [place] [address] Lipase Levelon 04-19-2020 Lipase [Catalytic activity/Vol] 43 U/L Normal 13-[address] [facility] Comment on above: Performed By: #### 2 [id number] #### [facility] [address] [place] [address] PT & PTTon 04-19-2020 aPTT Coag (PPP) [Time] 30.2 second(s) Normal 25.1-36.[address] [facility] Comment on above: Result Comment: Hepa rin therapeutic range (represented by Anti-Factor Xa activity of 0.2 - 0.4 U/mL) corresponds to PTT of 56.6 - 109.0 sec. Performed By: #### 2 [id number] #### [facility] [address] [place] [address] INR Coag (PPP) [Relative time] 1.0 {INR} Invalid Interpretation Code [facility] Comment on above: Result Comment: INR results are specifically intended to assess patients stabilized on long-term Anticoagulation therapy suggested INR?s ?Less Intensive Anticoagulation? 2.0 ? 3.0 Conventional Range 3.0 ? 4.5 Performed By: #### 2 [id number] #### [facility] [address] [place] [address] PT Coag (PPP) [Time] 11.8 second(s) Normal 10.2-12.[address] [facility] Comment on above: Performed By: #### 2 [id number] #### [facility] [address] [place] [address] Prescriptions/Work Noteson 1 Prescriptions/Work Notes [id number]# 1.00CD:[address] [facility] U BetaHcg Qualon 04-19-2020 HCG.beta subunit (U) [Moles/Vol] Negative Normal [facility] Comment on above: Performed By: #### 2 [id number] #### [facility] [address] [place] [address] UA With Cult Reflexon 2019 Bacteria LM Ql (Urine sed) TRACE Normal Trace [facility] Comment on above: Performed By: #### 2 [id number] #### [facility] [address] [place] [address] Bilirubin Ql (U) Negative Normal Negative [facility] Comment on above: Performed By: #### 2 [id number] #### [facility] [address] [place] [address] Clarity (U) CLEAR Normal Clear [facility] Comment on above: Performed By: #### 2 [id number] #### [facility] [address] [place] [address] Color (U) YELLOW Normal Yellow [facility] Comment on above: Performed By: #### 2 [id number] #### [facility] [address] [place] [address] Crystals LM Ql (Urine sed) Present Normal [facility] Comment on above: Performed By: #### 2 [id number] #### [facility] [address] [place] [address] Epithelial cells.squamous LM.HPF (Urine sed) [#/Area] 3-4 Normal 0-[address] [facility] Comment on above: Performed By: #### 2 [id number] #### [facility] [address] [place] [address] Glucose Test strip (U) [Mass/Vol] Negative Normal Negative [facility] Comment on above: Performed By: #### 2 [id number] #### [facility] [address] [place] [address] Hemoglobin Ql (U) TRACE Abnormal Negative [facility] Comment on above: Performed By: #### 2 [id number] #### [facility] [address] [place] [address] Ketones (U) [Mass/Vol] Negative Normal Negative [facility] Comment on above: Performed By: #### 2 [id number] #### [facility] [address] [place] [address] Isabela.plasma/Lithi um.RBC (Bld) [Mass ratio] 0-3 Normal 0-[address] [facility] Comment on above: Performed By: #### 2 [id number] #### [facility] [address] [place] [address] Nitrite Ql (U) Negative Normal Negative [facility] Comment on above: Performed By: #### 2 [id number] #### [facility] [address] [place] [address] pH (U) 6.5 [pH] Invalid Interpretation Code 5.0-9.[address] [facility] Comment on above: Performed By: #### 2 [id number] #### [facility] [address] [place] [address] Protein (U) [Mass/Vol] Negative Normal Negative [facility] Comment on above: Performed By: #### 2 [id number] #### [facility] [address] [place] [address] Specific gravity (U) [Rel density] 1.025 Invalid Interpretation Code 1.005-1.[address] [facility] Comment on above: Performed By: #### 2 [id number] #### [facility] [address] [place] [address] UA Spec Desc Clean Catch Normal [facility] Comment on above: Performed By: #### 2 [id number] #### [facility] [address] [place] [address] Urobilinogen Qn (U) 0.2 {Arnie'U}/dL Normal 0.0-1.[address] [facility] Comment on above: Performed By: #### 2 [id number] #### [facility] [address] [place] [address] WBC Auto Ql (U) Negative Normal Negative [facility] Comment on above: Performed By: #### 2 [id number] #### [facility] [address] [place] [address] WBC LM.HPF (Urine sed) [#/Area] 0-5 Normal 0-[address] [facility] Comment on above: Performed By: #### 2 [id number] #### [facility] [address] [place] [address] US Abdomen, Limitedon 2019 US Abdomen, Limited [...] M.D. Transcribed by: OLGA Technologist: RENETTA Kaplan [facility] eGFRon 04-19-2020 GFR/1.73 sq M.predicted among blacks MDRD (S/P/Bld) [Vol rate/Area] mL/min/{1.73_m2} Normal >=[address] [facility] Comment on above: Order Comment: Order added by Discern Expert. Result Comment: eGFR is race adjusted. AA=. Performed By: #### 2 [id number] #### [facility] [address] [place] [address] GFR/1.73 sq M.predicted among non-blacks MDRD (S/P/Bld) [Vol rate/Area] mL/min/{1.73_m2} Normal >=[address] [facility] Comment on above: Order Comment: Order added by Discern Expert. Result Comment: Stained Glass Joiner bib kidney disease could be indicated at eGFR's of less than 60 mL/min/1.73m2. Kidney failure is indicated at less than 15 mL/min/1.73m2. Performed By: #### 2 [id number] #### [facility] [address] [place] [address] Encounters Encounter Date Encounter Type Care Provider [...] [address] [place] [address] My Singh MD [address] [place] [address] [facility] Start: 08-22-2023 End: 08-22-2023 Patient encounter procedure 08/22/2023 11:50 AM EST Office Visit [facility] [address] [place] [id number] Flynn Archibald, DO [address] [place], [place] [id number] [facility] Payers Date Payer Category Payer Unknown [id number] 1995 Unknown [id number] 2.16.84 [id number] 1995 Unknown [id number] 2.16.84 [id number] 1995 Unknown [id number] 2.16.84 [id number] 1995 Unknown [id number] 2.16.84 [id number] 1995 Unknown [id number] 2.16.84 [id number] 1995 Unknown [id number] 2.16.84 0.1.607510.3.579.2.1259 1993 Unknown [id number] 2.16.84 0.1.078775.3.579.2.1259 1993 Unknown [id number] 2.16.84 0.1.635267.3.579.2.1259 1995 Unknown [id number] 2.16.84 [id number] 1993 Unknown [id number] 2.16. [id number] 1961 Unknown [id number] Social History Date Type Detail Facility Tobacco smoking stat [facility] Tobacco smoking consumption unknown [facility] Start: 1995 Sex Assigned At Not on file [facility] Start: 08-08-2023 Gender identity Not on file [facility] Start: 08-08-2023 Tobacco smoking stat [facility] Never smoked tobacco [facility] Start: 08-08-2023 [...] year (follow up) documented in this encounter [facility] Consultation note 07-18-2021 Note Date & [...] to proceed. CC: Dr. Alon Weber [facility] Consultation note 07-18-2021 Note Date & [...] like to proceed. CC: Dr. Alon Weber [facility] Signed and Approved by: DR AKASH MARTINEZ . 07/25/2021 08:02:00 [facility] Clinical Note 02-28-2021 Note Date & Type Note Facility 02-28-2021 Note Infectious Disease COVID-19: How to Protect Yourself and Others Know how it spreads ? There is currently no vaccine to prevent coronavirus disease 2019 (COVID-19). ? The best way to prevent illness is to avoid being exposed to this virus. ? The virus is thought to spread mainly from rgfkfb-uv-murvrk. ? Between people who are in close [...] are not readily available, use a hand manager data center that contains at least 60% alcohol. Cover [...] at higher risk of getting very sick.www.cdc.gov/coronavirus/2019-ncov/n teh-rodnr-tdilpwdokpo/nmeqxy-df-akyqyz-r isk.html Cover your mouth and nose with [...] available, clean your hands with a hand manager data center that contains at least 60% alcohol. Clean and disinfect ? Clean AND disinfect frequently touched surfaces daily. This includes tables, doorknobs, light switches, countertops, handles, desks, phones, keyboards, toilets, faucets, and sinks. www.cdc.gov/coronavirus/2019-ncov/preven w-xtujplb-fzlp/vnasvoktdxys-lyhg-oipu.ht ml ? If surfaces are dirty, clean [...] Reviewed: 12/31/2019 Elsevier Patient Education ? 2019 [employer] COVID-19 Frequently Asked Questions COVID-19 (coronavirus disease) is an infection that is caused by a large family of viruses. Some viruses cause illness in people and others cause illness in animals like camels, cats, and bats. In some cases, the viruses that cause illness in animals can spread to humans. Where did the coronavirus come from? In May 2019, [place] told the World Health Organization (WHO) of several cases of lung disease (human respiratory illness). These cases were linked to an open seafood and livestock market in the city of [facility]. The link to the seafood and [...] naming World Health Organization (WHO): www.who.int/emergencies/diseases/novel-c oronavirus-2019/technical-guidance/joe moored-vdd-hrjledeohxc (more content not included)... [facility] History and physical note 05-05-2020 Note Date & Type Note Facility 05-05-2020 Note [id number] #1.00CD:[address] [facility] History and physical note 05-02-2020 Note Date & Type Note Facility 05-02-2020 Note [id number] #1.00CD:[address] [facility] Evaluation note Note Date & Type [...] content) DATE CREATED AUTHOR 03/05/2021 Ananth Weiner [facility] DATE CREATED AUTHOR AUTHOR'S ORGANIZ ATION 04/10/2021 [facility] DATE CREATED AUTHOR AUTHOR'S ORGANIZ ATION 07/02/2022 [facility] DATE CREATED AUTHOR AUTHOR'S ORGANIZ ATION 10/21/2023 [facility] EPIC DATE CREATED AUTHOR AUTHOR'S ORGANIZ ATION 12/06/2023 [facility] Reason for Visit (unrecogniz ed section and [...] BE BASED ON THE PRIMARY CLINICAL RECORDS. [facility]. provides no warranty or guarantee of the accuracy or completeness of information in this document.
== END 2023-12-24 09:13 | disposition home or self-care (01) ==
LOC: EC 09:12
PROVIDERS: PCP Family Medicine; Visit Provider Podiatrist Foot & Ankle Surgery
DX: M25.572 Pain in left ankle and joints of left foot (principal); Z98.890 Other specified postprocedural states
CPT/HCPCS: 73610

== ENCOUNTER 2024-01-13 08:52 | Day surgery (SDC) | payer BC, SELFPAY ==
--- OUTSIDE RECORDS SUMMARY | 2024-01-13 09:06 | XMS_ITS | CCD ---
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 Role Phone MICHELLE, DR AKASH Murray [...] Unavailable Erica POLK, Harley Simmons Attending Unavailable Erica POLK, Harley Simmons Attending Unavailable Allergies Allergy Classification Reported Allergen(s) Allergy Type Date of Onset Reaction(s) Facility (2 sources) HYDROcodone Drug Allergy 5 [facility] (2 sources) oxyCODONE Drug Allergy 5 [facility] (2 sources) Penicillins Drug allergy (disorder) 5 [facility] (3 sources) Acetaminophen / HYDROcodone Drug Allergy 4 Unknown [facility] (3 sources) HYDROcodone Drug Allergy 4 Hives [facility] Work Phone: (3 sources) [facility] Penicillin G Drug Allergy 4 [facility] (3 sources) Penicillin G sodium Allergy to substance 4 Rash [facility] (3 sources) Penicillins Drug Allergy 4 Hives [facility] (3 sources) Sulfamethoxazole / Trimethoprim Drug Allergy 4 Rash [facility] (3 sources) Sulfonamides (Antibiotic) Drug Allergy 4 [facility] Medications Current Medications Medication Drug [...] 07-18-2021 Episodic Other aftercare (1 source) 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; Translations: [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] Onset: 09-05-2021 Episodic Other upper respiratory infections (1 source) Acute upper respiratory infection, unspecified; Translations: [ACUTE UP RESPIRATORY INFECTION UNS] Onset: 09-05-2021 Episodic Unclassified (1 source) COUGH, UNSPECIFIED; Translations: [COUGH, UNSPECIFIED] Onset: 09-03-2021 Results Test Name Value Interpretation Reference Range Facility Covid-19 PCR ([facility])on 08-22 SARS-CoV-2 (COVID-19) RNA MARY+probe Ql (Unsp spec) Not detected Normal NOT DETECTED [facility] Comment on above: Result Comment: This test is not yet approved or cleared by the [place] FDA. When there are no FDA-approved or cleared tests available, and other criteria are met, FDA can make tests available under an emergency access mechanism called an Emergency Use Authorization (EUA). The EUA for this test is supported by the Bench Examiner of Health and Human Service's (HHS's) declaration [...] consistent with SARS-CoV-2. Performed By: #### [facility] #### [facility] [address] [place] [address] Dr. Karlos Augustin GROUP A STREP CULTUREon 08-22 S. pyogenes Ag Ql (Unsp spec) Culture Observations: NEGATIVE FOR GROUP A STREPTOCOCCUS. Normal [facility] Comment on above: Performed By: #### S ДМИТРИЙ GRASTCX #### [facility] [address] [place] [address] Dr. Karlos Augustin INFLUENZA A AND B AGon 09-03 INFLUANEGH SEE BELOW Normal [facility] Comment on above: Result Comment: Nega tive for Flu A protein angiten. Infection due to Flu A cannot be ruled out. Flu A angiten in the sample may be below the detection limit of the test. Performed By: #### I NFLUAB #### [facility] [address] [place] [address] Dr. Karlos Augustin INFLUBNEGH SEE BELOW Normal [facility] Comment on above: Result Comment: Nega tive for Flu B protein antigen. Infection due to Flu B cannot be ruled out. Flu B antigen in the sample may be below the detection limit of the test. Performed By: #### I NFLUAB #### [facility] [address] [place] [address] Dr. Karlos Augustin INFLUENZA A AG Negative Normal NEGATIVE SEE COMMENT [facility] Comment on above: Performed By: #### I NFLUAB #### [facility] [address] [place] [address] Dr. Karlos Augustin INFLUENZA B AG Negative Normal NEGATIVE SEE COMMENT [facility] Comment on above: Performed By: #### I NFLUAB #### [facility] [address] [place] [address] Dr. Karlos Augustin INTERNAL CONTROLS Within Normal Limits Normal Wi thin Normal Limits [facility] Comment on above: Performed By: #### I NFLUAB #### [facility] [address] [place] [address] Dr. Karlos Augustin STREPT SCREENon 09-03-2021 STREP SCREEN A Negative Normal NEGATIVE [facility] Comment on above: Performed By: #### S ДМИТРИЙ GRASTCX #### [facility] [address] [place] [address] Dr. Karlos Augustin PREG HCG QUALon 08-01-2021 , QUAL Negative Normal NEGATIVE [facility] Comment on above: Performed By: #### P REG #### [facility] [address] [address] [address] Karlos Augustin PREG HCG QUALon 07-04-2021 , QUAL Negative Normal NEGATIVE [facility] Comment on above: Performed By: #### P REG #### [facility] [address] [facility]BDOMEN AND PELVIS W IV CONTRAST [facility] Department of Radiology [address] [place] [address] Patient Name: RAJIV TOVAR : 1995 Sex: F Age: Race: White Pt. Location: [facility] Patient Status: D Ordered Date: 03/21/2021 4:00:00 PM Completed Date: 04/05/2021 03:49 PM Requesting Provider: ДМИТРИЙ CALLAHAN Attending Provider: ДМИТРИЙ CALLAHAN Report Copy To: ALON WEBER Signs & Symptoms: R10.31 Right lower quadrant pain I10 History: Josefa Is patient on meds for HTN or DM? 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 Per [employer] for CPT 13298 Ref#[id number] Med Nec-Passed *SLA Comments: Exam: CT ABDOMEN [...] Electronically signed: Noemy Stanley M.D.. Transcribed by: [email or web address], User Resident: Electronically Signed by: NOEMY STANLEY @ 04/07/2021 01:25 PM Normal [facility] CHEST 2 [facility] 03-21-2021 [facility] CHEST 2 [facility] Department of Radiology [address] [place] [id number] Patient Name: RAJIV TOVAR : 1995 Sex: F Age: Race: White Pt. Location: [facility] Patient Status: D Ordered Date: 03/21/2021 2:25:00 PM Completed Date: 03/21/2021 02:22 PM Requesting Provider: ДМИТРИЙ CALLAHAN Attending Provider: Report Copy To: Signs & Symptoms: R07.81 Pleurodynia I10 History: [place] Comments: right ribs pain Exam: [facility] CHEST 2 VWS [facility] CHEST 2 VWS 03/21/2021 2:22 PM [...] disease Electronically signed: Cyril Olivo. Transcribed by: [email or web address], User Resident: Electronically Signed by: CYRIL OLIVO @ 03/22/2021 02:39 PM Normal [facility] Comment on above: Order Comment: right ribs pain Coding Summary.on 03-03-2021 Coding Summary. CD:[id number] G h0bWw+PGhlYWQ+HX5ABHG iJ63ejPNesJ8KP2kJJO4Q MGUXRGWVON6FPP6yhFZ8V IbpM2FkhsLz DgafbMBoIC41BRo1WNP8u TnbOKwqgL1gkISzK2e6Nr HbON39pF75XTbtKPRuGfD 3LjZpbjsgbWFy D3tmEvVqkSHfHzj+PHRhY mxlIHdpZHRoPScxMDAlJy IwuGopWZ2xUs9hRQSbLWN vbGxhcHNlOiBj t8vkUBMbVZmvSB2fmKjnZ 7NboRU7FFQcy7p9Gw82sQ I+RVGqKOT8yGlvJSyjl17 7VfFqj2fhDAO1 rQPmXNyyVMM1G82uv0W3B WJsQIVfODK2oGL0tR6xoL ubnblkD8UflSYmHvQ1SHN 2pQSqqU1hwIxs keitaG8hDjg+S90XHO3WJ SAZON9MOwu7J0JoGkpmdJ I+CV00LPUaTW34wEMqzFY dt3hkoWd0CrHy VPGbKHP9oMlkPRreh7PpQ JCkW50ooKQmt9A8GGVrbT kdvOXxNdSlmAF1qK8oWXf imwewl1vnxeek Sqgjn4bmws50nP36E64gA LsuHEOnAEP6WPKjPXDokJ byhp0fgB6mKb3+BWsba1u bq9gppKm1GzVu QYCgprPusGytAAV4i7WcG s03R4PppZeyh4SmIpa5dl 48hMNgj2K1dEF6WCfnMSK uoE7zCZblIzT1 YGNtEhAphO22bXMxJPbrV h0jtWyfkFttSL0kBVVcqf lgXLRcrR4rUBZnyZFtgGd iOR0eQLChppzh i588KbYlMDG7YLEunNRgK 4UytK3oOyUmCZCwSXYaB1 XfoXOmQBnpY253STtrWnV 7RCFfqaPtD5Tr TLPhzMfhBcO0w2V4Jn6Qy 8AnzjndRBY3NYyfBPB5Ph ZuPnWwJwD6Q0TpNai2XRT hvAkoEU9aX9Ac ASFhybrkhyrojAS7KARvS KZyrR96kNQuSTjbOg9qn2 A4b482ZHJyGDJoiQ02Xq9 udDogMTBwdCBU mF3fbmpmz3qzcfshLmUbE PTeJZa2WCw7XZWrcZnuQe KpDYF2YsU5REA3yJKnkQ1 wbMiqmfitgJ7w Oyc+K93ukT4dQUM6WTC0p blgOLNmogKoOP74SN30J0 RyPjwvdGFibGU+PGRpdiB voRxoFI9sBwWi l3uze3BoPPhnC2PdSZVoW DrfAtq4HJOtQZQ1kXT6nJ 1wVTOuKQqiq3H9dVI0X9N jlwPyin7mz5qs FYGtTSyeD78hoMEch7E3T NVuxBG6KYNdyAayRlPguJ 93Oyc+YGEnwAagt1WeEbn jf8ehm9ivqOt3 WgOqWKErebVjhEjkAJS3f 5PdGe77H29wNVxuRCKnUG EcCKRdKBLrvMgpov0rqF5 wIi8+PGNvbCB3 wSJ2jT2hZQBxFkW4KTxqK 079GqZhbDMlBdqsv0bap5 iyjSi6KhOmZEBiubArcFa wFAB7q6VqPy09 Y62cVIyhYXGrLBBsVUWxC KNzgVlywt8yfD7pTk7+PC 4mj6ympc85qV30eFO+PHR gBNX8yUrbGRcx UPPizK5uDRwpDhZ6ZLBkN rHjhQ16hRCeSZvzGt4svA rveUjyFA1kDLScmruqx16 3BgSzg6bsNOTm kZJfZEfbNIV2R96el3T3R LZeLXLaSPB8fGG6uN2qsT lnbjogbGVmdDsgdmVydGl jUOurHOndD159 IHRvcDsnPlBhdGllbnQgT dHnSGy6E6HrKjn4TCGstQ mkGG3zgQQyKBwcFw9uxVh qjGisPK6uKVMs prtpv053HpScu5njHCFcc AIlGIniXJL8N14cw9Z7OD ZuCQAwDLT7pVY1wY7snJi nbjogbGVmdDsg prCjeItzAZluGOyuO755Q HRvcDsnPkJpcnRoIERhdG S7FK00EW62gUCrj7I5qPN 4I0IoBHIibjih ordgjZP6CSEbMOGvsO62B c7szHufIn5bETAgWRG4YJ IwqIQeA2KxzV5dOrCeFNG dPETjU0TzgIFr TUwhW285NLmpIpC0SOUyb sAuK0LcTLPcdHmmFcB6e7 Y8Qp5ZV2F4NS34VA11zSR mu5M3mVM0E6Vb ZWBoswemldpitPQ7NRSoZ BDfyF61Xw4faItxQk5wMQ StTXU9GLGicBBrH4WryQ2 yOiAjMDAwMDAw R4JnrPDnRUorL196FLheF eD7SUBkvmBiM8WkBDZngP mwAlH7v4V7Ln7EABc7WC2 1AX63jCKto6A7 rKI0G3IyQHJifabzwelvu BY9KUEfYPZcnE95Gh0ccU qpBd8mEGXbYET4NZWmvKJ fM3AxrG2bJzEw VICaYTTmN5CtjHDcCWibG 552ZYtiSjM2GIBcwhAkT4 GvEEQftOdqHwH5q3V0Lp8 VPGUgHF62AEH9 qPS8NX19MZ57L5FtMlncd GFibGU+PHRhYmxlIHdpZH RoPScxMDAlJyBzdHlsZT0 lXl5oAPHkFUPm kMkfxORjLeCqv1isAWIhZ UdqHL7npHydV3JsbKJ3TZ Lhu7h5Ou13Y87qT1JxlPB +PBPocVR4oRE7 pT4zUkJyQjN3JOxpQ804Z fPblTGnKsivn2uuy9lyoC m0PoY8MMUccrVjyTcmMEM 0j2KpCq72M43r IHdpZHRoPSIxNSUiIHZhb Ajlgt2osY2zLj2+PGNvbC E1uFT2pO4jSvOvFvL9BPi uX356FxRurYTg Lmlni7rhs5dihLp6ScEoO KMezjIocKvyOFE1u2AjOq 76K7UjeMgwz8CaWis6yi9 5bHKuu4Q8bXA0 I9JfUZTqgczsjSWcsGzeE L7qMWLiafmeKLMfsF6rWH OiR1u4WeZoFsH9YZsiM7A zemT3YYKugMSz FKjsAAA6J52lj1G8FHSsY KKfBWU1qKK1gN7cqCosxg ogbGVmdDsgdmVydGljYWw wYCizI140UCEm hPocHXTuxX3yKVGfgCPkr KweBQ1yLHGnfbgvEiRKGX AEYVYZHAhWN2R9R8GwGti 4HMRarVxsII7q wJNtESvxUh8wwJaolDzmV J6qHVHamwwyZGIalR4jFT MnnZItnGyqRM7rZBIvytj mu083WbQkJYA2 OWJdkYQrW5ZkjT3lQlHpV OCpZNToR5NgcQPvHJgcJ8 22PUqkAtZ3FAKwlnRxU4C sLWFsaWduOiB0 w1S2Lk9tLM8dNh9wSOkdT Y36AO67pQTen5X9mDO5K4 FmSUAztlzlbgtngVT7JRG bSGYznC47cTNb FVkfRt2gg0J8d207ZHKnS RXmmF74Ze3skTdrYAFgjG TSrN4tyikyc2bngczaPnL mVLAzIUd6IYe9 KMGafWylQbJsRUP3WyS1P TE2lYFcuB2wuKtictrmvC 9wOyc+ZwjtZOXutkU6L6D rGzn2UKItkWgg DW1krVAjGMcxQn6mbZtne YatOL1jHXXjfxqwMWUghE 0rEFHpgEIelYdoYB3fPVR ggrmzs866UuLt XVH4BXTfsSFlG4YkoV7aV tUvHRXrXZLtD9CneQJxVX jlL329MRkcOiX6PIVtdnQ bY0KsZKNwnPcn CwT1z2P1Vm3IGV3ddRD5K 2JyYss9IWUtoLmbWH2tbV CqUHytVu9fjZomlKhoBH8 wNTBpbjtwYWRk gJ0uCUDraJLshRxeAM7aT EKiljxcf603DuPgMXO6AS JzoDGqS2XrkT9hMfXwFVG qQJWgZ5GnkGNp PZsdJ158JEbtFuQ4OQRvm zIbG7CvABVktIhwCgA5v6 H2Bn2NkOOoM7NrP7u2T3M kPjwvdHI+PC90 JTZiUG95bCAylQOus4hps Ww0EbCsCIJnUQT7sWauRE tjj5HlMVSpJ67ncKJqg4L 6IGNvbGxhcHNl NmEheCD6mM2cUDmgpqrye 6hbbdsaYpdso4lkex83pP 96U71iFYblEJChHBQsBCP yAZOjcZcsxh3k oH0vBg8+OONtdFX5kLP1p P0vTxHjLmY6SLheK307Xd HcaQZeZbmmm5xbd0sbbZq 9IjIwJSIgdmFs kKyrTCF9o3GbDe88K25aL HdpZHRoPSIyMCUiIHZhbG hpgn9dbU0mVh7+CU6qv3h zjm77bB81jAP+ NXWoUNK1lLafDEooMTKrf X6dDLxuGoW4GWBkKoCgnD 21fIFyQJurKq2ftPtneCa rGB6oBGZsbxfe t064ZnGfb2xkDIWprVZpK WscMBD8M34rm8I9DIJxDJ AxRKE6cRE4oP3xlIncuvr gbGVmdDsgdmVy qOrrCTktHXuwB268KQPdv EvzZrDaeATjG7edezFIMY 1lOjwvdGQ+YOEvBRG0jWw dDRpmVCAwsS0l FNItD8g1NvJwEbO0BWbfK 4GlbrB1FEKyuYXsPMKxxX XTwH5oysdoy2csqxvlWkF cLYDoVDe5ZJr2 EQCrkNaiCmWhQWE0EtU8B DD4iUVerW6diCnawhybzU 9wOyc+RklOOjwvdGQ+PHR dMAW6jXdqVDot ZAHvxR1aKNPxC9g9CgXzN uG1OQxjT4AybfP3IMDczT DxZCFqnMPHvD5fsvgug8e vcjogIzAwMDAw GXl4LBh4WRJpxGotAmVbQ JT7SgL3UCY0zUOmtU0tdR kahysveZ7gWoz+TVJOOjw vdGQ+PHRkIHN0 fBokZMykXVWzdC4qISUtN 2z3CePsTlC5URwuW3Dpyi Z8VVNoaWAiJRKseQAWdZ3 nakcps5goyutx ZgNiJKJqFNf4HUe2KBXgn LyoSbZuOIJ4GfH2XLJ0pV HabO8poNizdcixtD9dPhq +PPW7TLY3QI10 RF79L8LmNlesyINohJH+P HRhYmxlIHdpZHRoPScxMD GqHnSncHdaSU4lLc2rJBC yLWNvbGxhcHNl OiBj (more content not included)... Normal [facility] Auto Diffon 02-28-2021 Basophils/100 WBC (Bld) 0.4 % Normal 0.0-2.0 [facility] Comment on above: Order Comment: Order Added by Discern Expert. Performed By: #### 2 060659, 0578998, 72187523, 99553819, 84196408, 15505930, 2988287, 3050563, 7606916, 6873544 ####[address] [place] [address] Basophils/Leukocytes Auto (Bld) [Pure # fraction] 0.0 E9/L Normal 0.0-0.2 [facility] Comment on above: Order Comment: Order Added by Discern Expert. Performed By: #### 2 169247, 7193086, 98673413, 09979048, 53859666, 68847503, 8438231, 0063888, 1483919, 3775407 ####[address] [place] [address] Eosinophils/100 WBC (Bld) 0.6 % Normal 0.0-8.0 [facility] Comment on above: Order Comment: Order Added by Discern Expert. Performed By: #### 2 564591, 8285319, 47886155, 55477350, 14593837, 45088336, 2080370, 2330363, 0171001, 7958424 ####[address] [address] Eosinophils/Leukocyt es Auto (Bld) [Pure # fraction] 0.0 E9/L Normal 0.0-0.5 [facility] Comment on above: Order Comment: Order Added by Discern Expert. Performed By: #### 2 158067, 0205764, 54185402, 68331764, 06503499, 30225153, 8392756, 1468732, 9428590, 4700834 ####[address] [place] [address] Lymphocytes/100 WBC (Bld) 7.9 % Low 14.0-50.0 [facility] Comment on above: Order Comment: Order Added by Discern Expert. Performed By: #### 2 833448, 5624914, 07079901, 26815789, 74967188, 31581597, 0804543, 2076830, 4542680, 1996157 ####[address] [place] [address] Lymphocytes/Leukocyt es Auto (Bld) [Pure # fraction] 0.4 E9/L Low 1.0-4.0 [facility] Comment on above: Order Comment: Order Added by Discern Expert. Performed By: #### 2 454835, 2587856, 96855210, 95220723, 07161264, 34386621, 5309162, 4373776, 7278533, 1514962 ####[address] [place] [address] Monocytes/100 WBC (Bld) 5.5 % Normal 4.0-14.0 [facility] Comment on above: Order Comment: Order Added by Discern Expert. Performed By: #### 2 401649, 6894107, 94895200, 99658417, 75361898, 83616501, 4469906, 9935335, 1066958, 9244511 ####[address] [address] Monocytes/Leukocytes Auto (Bld) [Pure # fraction] 0.3 E9/L Normal 0.2-1.0 [facility] Comment on above: Order Comment: Order Added by Discern Expert. Performed By: #### 2 780637, 9141251, 70869480, 08606733, 23034726, 43948215, 8322864, 5773491, 1499780, 2291937 ####[facility] [address] [place] [address] Neutrophils/100 WBC (Bld) 85.6 % High 36.0-75.0 [facility] Comment on above: Order Comment: Order Added by Discern Expert. Performed By: #### 2 886847, 6839811, 21631057, 44376903, 86963237, 70066514, 6297807, 6452374, 8126488, 3434203 ####[address] [place] [address] Neutrophils/Leukocyt es Auto (Bld) [Pure # fraction] 4.5 E9/L Normal 2.0-7.5 [facility] Comment on above: Order Comment: Order Added by Discern Expert. Performed By: #### 2 223318, 5048089, 53333083, 48285930, 26470938, 06243788, 8598467, 6185834, 0057851, 3675413 ####[facility] [address] [place] [address] B hCG Qualon 02-28-2021 Beta hCG Ql Negative Normal [facility] Comment on above: Performed By: #### 2 659750, 9391287, 58827543, 98162859, 27424003, 73082370, 7371664, 6999220, 8485557, 3618374 ####[facility] [address] [place] [address] BMPon 02-28-2021 Creatinine [Mass/Vol] 0.7 mg/dL Normal 0.5-1.3 [facility] Comment on above: Performed By: #### 2 647903, 2998794, 79877916, 06241031, 58806236, 44898928, 3148018, 4208402, 5537805, 0457744 ####[facility] [address] [place] [address] Urea nitrogen [Mass/Vol] 9 mg/dL Normal 5-21 [facility] Comment on above: Performed By: #### 2 714110, 9405607, 63911344, 53371591, 22384749, 95917472, 6869185, 7956092, 8296308, 7677422 ####[facility] [address] [place] [address] Urea nitrogen/Creatinine [Mass ratio] 13 No Units Normal 10-20 [facility] Comment on above: Performed By: #### 2 267148, 2453729, 17484094, 03650230, 40152972, 59523454, 6462465, 4643621, 0139548, 5172329 ####[facility] [address] [place] [address] Anion gap [Moles/Vol] 14 mmol/L Normal 6-16 [facility] Comment on above: Performed By: #### 2 858631, 4746536, 57283694, 28066262, 52957030, 42624772, 2113175, 2714077, 3490817, 0317076 ####[facility] [address] [place] [address] Calcium [Mass/Vol] 8.5 mg/dL Low 8.9-11.1 [facility] Comment on above: Performed By: #### 2 718971, 1955235, 55470603, 66115029, 91588436, 67332935, 5101697, 2052414, 8755068, 7185481 ####[facility] [address] [place] [address] Chloride [Moles/Vol] 102 mmol/L Normal 101-111 [facility] Comment on above: Performed By: #### 2 025454, 9444867, 88220553, 07337731, 59635578, 92162911, 1975687, 7756231, 5347052, 9314517 ####[facility] [address] [place] [address] CO2 [Moles/Vol] 21 mmol/L Normal 21-31 [facility] Comment on above: Performed By: #### 2 716826, 4144474, 56685333, 40193064, 54490639, 77899415, 9230170, 9192286, 1127170, 4716872 ####[facility] [address] [place] [address] Glucose [Mass/Vol] 95 mg/dL Normal 55-199 [facility] Comment on above: Result Comment: If t his glucose result represents a fasting glucose, interpretation should refer to the following reference range: 55-99 mg/dL Performed By: #### 2 640785, 6061389, 71899084, 42626587, 83743274, 73123611, 3830508, 1424949, 3905870, 8995879 ####[facility] [address] [place] [address] Potassium [Moles/Vol] 3.6 mmol/L Normal 3.5-5.3 [facility] Comment on above: Performed By: #### 2 272347, 3625334, 14604998, 24908468, 95612969, 40426253, 3816281, 7650362, 5532945, 6988901 ####[facility] [address] [place] [address] Sodium [Moles/Vol] 133 mmol/L Low 135-145 [facility] Comment on above: Performed By: #### 2 224294, 1146715, 21985110, 33021043, 66171360, 75170947, 2058043, 5196766, 9440079, 1929060 ####[facility] [address] [place] [address] CBC w/ Auto Diffon Erythrocyte distribution width (RBC) [Ratio] 12.4 % Normal 10.9-14.2 [facility] Comment on above: Performed By: #### 2 779116, 3463098, 95998374, 13683749, 13166128, 73633207, 2407664, 7903014, 3992391, 7976509 ####[facility] [address] [place] [address] Hematocrit (Bld) [Volume fraction] 38.1 % Normal 34.0-46.0 [facility] Comment on above: Performed By: #### 2 549127, 5294975, 00836206, 60574411, 31121141, 66534495, 6334378, 7955464, 3595222, 9422107 ####[facility] [address] [place] [address] Hemoglobin (Bld) [Mass/Vol] 13.3 g/dL Normal 12.0-16.0 [facility] Comment on above: Performed By: #### 2 133254, 2288643, 70292220, 92236380, 58795937, 34087836, 1016252, 0871598, 3096173, 9235823 ####[facility] [address] [place] [address] MCH (RBC) [Entitic mass] 31.7 pg Normal 27.0-34.0 [facility] Comment on above: Performed By: #### 2 360104, 1053850, 11042703, 25031343, 31807723, 07646863, 0678406, 7230051, 0048983, 5132664 ####[facility] [address] [place] [address] MCHC (RBC) [Mass/Vol] 35.0 g/dL Normal 31.4-36.0 [facility] Comment on above: Performed By: #### 2 305060, 9789825, 34602125, 45488058, 84085482, 01375012, 6597935, 6659931, 0344189, 3119983 ####[facility] [address] [place] [address] MCV (RBC) [Entitic vol] 90.8 fL Normal 80.0-100.0 [facility] Comment on above: Performed By: #### 2 348493, 7787603, 71592175, 31903409, 31341359, 00496464, 9465197, 1266208, 4240176, 7197567 ####[facility] [address] [place] [address] Platelet mean volume (Bld) [Entitic vol] 10.0 fL Normal 6.4-10.8 [facility] Comment on above: Performed By: #### 2 421991, 2737586, 03265220, 52426749, 87076626, 49800499, 6404020, 5815065, 1689442, 6313517 ####[facility] [address] [place] [address] Platelets (Bld) [#/Vol] 144.0 E9/L Low 150.0-500.0 [facility] Comment on above: Performed By: #### 2 725365, 9804993, 75542100, 52933789, 08810195, 49087449, 1483955, 7585667, 2296599, 3950349 ####[facility] [address] [place] [address] RBC (Bld) [#/Vol] 4.2 E12/L Low 4.3-5.9 [facility] Comment on above: Performed By: #### 2 169962, 2288961, 59495701, 62651757, 21562222, 05149567, 8097937, 7928865, 3640632, 5336903 ####[facility] [address] [place] [address] WBC corrected for nucl RBC Auto (Bld) [#/Vol] 5.3 E9/L Normal 4.0-11.0 [facility] Comment on above: Performed By: #### 2 324167, 3189985, 36286550, 10970704, 90122533, 67581249, 6265026, 2855671, 0258538, 0394782 ####[address] [place] [address] COVID-19 [place] [place] 02-28-2021 SARS-CoV-2 (COVID-19) RNA MARY+probe Ql (Unsp spec) Not detected Normal Not Detected [facility] Comment on above: Result Comment: This test result should be correlated with clinical presentations and medical history by a healthcare provider to determine its clinical significance. This assay was performed by a reverse transcriptase real-time polymerase chain reaction (rt PCR) method on the [employer] system. This test has been authorized only [...] or revoked sooner. Performed By: #### 2 [id number] #### [facility] [address] [place] [address] SARS-CoV-2 (COVID-19) RNA MARY+probe Ql (Unsp spec) Pass Normal Pass [facility] Comment on above: Performed By: #### 2 [id number] #### [facility] [address] [place] [address] Specimen source Nom (Unsp spec) Nasal Normal [facility] Comment on above: Performed By: #### 2 [id number] #### [facility] [address] [place] [address] Employed in Healthcare NO Normal [facility] Comment on above: Performed By: #### 2 [id number] #### [facility] [address] [place] [address] First Test Unknown Normal [facility] Comment on above: Performed By: #### 2 [id number] #### [facility] [address] [place] [address] Hospitalized? NO Normal [facility] Comment on above: Performed By: #### 2 [id number] #### [facility] [address] [place] [address] ICU NO Normal [facility] Comment on above: Performed By: #### 2 [id number] #### [facility] [address] [place] [address] ? NO Normal [facility] Comment on above: Performed By: #### 2 [id number] #### [facility] [address] [place] [address] Resides in a Congregate Care Setting NO Normal [facility] Comment on above: Performed By: #### 2 [id number] #### [facility] [address] [place] [address] Symptomatic as defined by CDC YES Normal [facility] Comment on above: Performed By: #### 2 [id number] #### [facility] [address] [place] [address] Consent for Treatmenton Consent for Treatment [id number] Normal [facility] D-Dimeron 02-28-2021 Fibrin D-dimer FEU (PPP) [Mass/Vol] 388 [id number] Normal 215-500 [facility] Comment on above: Result Comment: This assay [...] infections Liver cirrhosis Performed By: #### 2 942412, 7868511, 23740580, 22409783, 37520994, 29659200, 7948865, 9864271, 0812099, 7185631 ####[facility] [address] [place] [address] Discharge Instructionson Discharge Instructions [id number]# 1.00CD:127 Normal [facility] ED Clinical Summaryon 2020 ED Clinical Summary [place] [id number] ED Clinical Summary Person Information Name: RAJIV TOVAR/[facility] Age: 25 Years : 1995 Sex: Female Language: Swedish PCP: Alon Weber MD Marital Status: Single [...] 02/28/2021 11:17:01 02/28/2021 11:17:01 02/28/2021 11:17:01 ADDRESS: [address] [place] [id number] PHYS DOC NOTES: MEDICAL INFORMATION: Prescriptions Given: [...] Follow up: With: Address: When: Alon Weber [facility] [facility], [place] [address] Business (1) In 3 days DIAGNOSIS: Chest pain; Viral URI Normal [facility] ED Note-Physicianon 02-29-20 ED Note-Physician Basic Information [...] body aches and some chest heaviness since Saturday. She describes chest heaviness sore throat and [...] hCG Qual CBC w/ Auto Diff COVID-19 ([facility] [place] D-Dimer ECG 12 Lead Adult ED Cardiac [...] medications Follow-up With When Contact Information Alon Gus In 3 days [address] [facility] [place] [address]- Business (1) Additional Instructions: Patient Education COVID-19: How to Protect Yourself and Others - [facility] COVID-19 Frequently Asked Questions Upper Respiratory Infection, [...] Use, 01/30 (more content not included)... Normal [facility] Comment on above: Result Comment: Elec tronically Signed By: Laureano Phillip DO\.br\Date and Time Signed: 02/28/21 11:03 EDT ED Patient Summaryon 021 ED Patient Summary [place] [id number] Patient Discharge Instructions Person Information Name: RAJIV TOVAR Age: 25 Years Arrival Date: 02/28/2021 09:10:34 Discharge Diagnosis: Chest pain; Viral URI Primary Care Physician: Alon Weber MD Provider Information Primary Provider: Laureano Phillip DO Advanced Steel Barrel Reamer:None The exam and treatment you received in the Emergency Department were for an urgent problem and are not intended as complete care. It is important that you follow up with a doctor, nurse practitioner, or physician?s commercial real estate assistant for ongoing care. If your symptoms [...] Follow-up Instructions: With: Address: When: Alon Gus [address] [place] [address], [place] [address] Business (1) In 3 days [...] opioids can be used to help relieve jqqvobnq-px-ueeibo pain and are often prescribed following a [...] be struggling with addiction, tell your health home care physical therapist and ask for guidance or (more content not included)... Normal [facility] Hep Func Panelon 02-28-2021 ALP [Catalytic activity/Vol] 52 Int._Unit/L Normal 21-98 [facility] Comment on above: Performed By: #### 2 000499, 2642022, 25920618, 89028623, 43186182, 62288881, 5815405, 5184811, 5327622, 8580583 ####[facility] [address] [place] [address] Albumin [Mass/Vol] 4.2 g/dL Normal 3.3-5.0 [facility] Comment on above: Performed By: #### 2 882594, 7520738, 75464487, 42471061, 32669717, 84555112, 0873101, 6233740, 2949966, 9577008 ####[facility] [address] [place] [address] Albumin/Globulin (S) [Mass conc ratio] 1.4 Normal 1.1-2.2 [facility] Comment on above: Performed By: #### 2 674640, 2735328, 09726024, 86121600, 61317939, 77144219, 2322638, 4109634, 8548280, 1108940 ####[facility] [address] [place] [address] ALT No additional P-5'-P [Catalytic activity/Vol] 48 Int._Unit/L High 6-46 [facility] Comment on above: Performed By: #### 2 373023, 7668253, 45097884, 76274491, 09843911, 63134308, 9718445, 9524893, 7289929, 8008295 ####[place] [address] [place] [address] AST [Catalytic activity/Vol] 39 Int._Unit/L Normal 5-43 [facility] Comment on above: Performed By: #### 2 431860, 2177767, 36457962, 42231157, 69420161, 90668680, 0626059, 0284200, 9440917, 2333842 ####[place] [address] [place] [address] Bilirubin [Mass/Vol] 1.2 mg/dL High 0.0-1.1 [facility] Comment on above: Performed By: #### 2 060398, 9308577, 40785093, 77323405, 25326587, 27298351, 7631475, 0534714, 0318251, 4553139 ####[place] [address] [place] [address] Bilirubin.direct [Mass/Vol] 0.2 mg/dL Normal 0.1-0.4 [facility] Comment on above: Performed By: #### 2 006799, 9213595, 13233255, 38799971, 44744501, 85436587, 6473548, 4886696, 9564620, 7846922 ####[facility] [address] [place] [address] Bilirubin.indirect [Mass or moles/Vol] 1.0 mg/dL High 0.1-0.9 [facility] Comment on above: Performed By: #### 2 701907, 0088748, 61627512, 51615014, 18032911, 97115048, 3412009, 2433086, 2020131, 9134904 ####[facility] [address] [place] [address] Globulin (S) [Mass/Vol] 2.9 g/dL Normal 1.4-4.0 [facility] Comment on above: Performed By: #### 2 311196, 7242115, 93864106, 56800098, 92099242, 59898798, 6910650, 9856881, 0983488, 0684448 ####[facility] [address] [place] [address] Protein [Mass/Vol] 7.1 g/dL Normal 6.0-7.8 [facility] Comment on above: Performed By: #### 2 702338, 7716487, 57676663, 69892043, 90428022, 75413557, 8027338, 6891054, 6699529, 2517595 ####[facility] [address] [place] [address] Lipase Levelon 02-28-2021 Lipase [Catalytic activity/Vol] 33 U/L Normal 13-58 [facility] Comment on above: Performed By: #### 2 205919, 2859249, 84019026, 76692926, 60971861, 38759345, 4973141, 4362603, 2318240, 4486040 ####[facility] [address] [place] [address] PT & PTTon 02-28-2021 aPTT Coag (PPP) [Time] 31.5 second(s) Normal 25.1-36.5 [facility] Comment on above: Result Comment: Hepa rin therapeutic range (represented by Anti-Factor Xa activity of 0.2 - 0.4 U/mL) corresponds to PTT of 56.6 - 109.0 sec. Performed By: #### 2 975576, 9138334, 66868245, 03644204, 70691032, 83645684, 2274576, 0844815, 8730656, 3230996 ####[facility] [address] [place] [address] INR Coag (PPP) [Relative time] 1.1 {INR} Invalid Interpretation Code [facility] Comment on above: Result Comment: INR results are specifically intended to assess patients stabilized on long-term Anticoagulation therapy suggested INR?s ?Less Intensive Anticoagulation? 2.0 ? 3.0 Conventional Range 3.0 ? 4.5 Performed By: #### 2 898248, 2141039, 31585375, 51668074, 04073167, 76773254, 7608703, 4849146, 0730657, 7785826 ####[facility] [address] [place] [address] PT Coag (PPP) [Time] 13.1 second(s) High 10.2-12.9 [facility] Comment on above: Performed By: #### 2 942082, 1881563, 44828219, 81116816, 42166448, 12970871, 3395122, 1074695, 1549899, 6866005 ####[facility] [address] [place] [address] Prescriptions/Work Noteson 0 02-28-2021 Prescriptions/Work Notes [id number]# 1.00CD:127 Normal [facility] Troponin 0 Hr.on 02-28-2021 Troponin I.cardiac [Mass/Vol] ng/mL Low 10.10-27.10 [facility] Comment on above: Result Comment: The 95% CI (Confidence Interval) PPV (Positive Predictive Value) for myocardial infarction in females is 38 pg/mL, in males 51 pg/mL. The results should be used in conjunction with clinical conditions of myocardial infarction. (Access High Sensitivity Troponin I Instructions For Use, Yenifer Pierz, January 2018) Performed By: #### 2 069667, 4433386, 32684352, 30183062, 51742301, 25607910, 6581055, 4783196, 6091567, 2476045 ####[facility] [address] [place] [address] XR Chest Single Viewon 02-28 XR Chest [...] MD Transcribed by: OLGA Technologist: YONG Kaplan [facility] eGFRon 02-28-2021 GFR/1.73 sq M.predicted among blacks MDRD (S/P/Bld) [Vol rate/Area] mL/min/{1.73_m2} Normal >=59 [facility] Comment on above: Order Comment: Order added by Discern Expert. Result Comment: eGFR is race adjusted. AA=. Performed By: #### 2 467069, 1670455, 83255102, 95266139, 42810632, 21058116, 6167092, 4393979, 5001551, 9818892 ####[facility] [address] [place] [address] GFR/1.73 sq M.predicted among non-blacks MDRD (S/P/Bld) [Vol rate/Area] mL/min/{1.73_m2} Normal >=59 [facility] Comment on above: Order Comment: Order added by Discern Expert. Result Comment: Technical Documentation Specialist bib kidney disease could be indicated at eGFR's of less than 60 mL/min/1.73m2. Kidney failure is indicated at less than 15 mL/min/1.73m2. Performed By: #### 2 322467, 3266875, 90645562, 01921291, 22072699, 76227931, 7776613, 1304770, 4657413, 3665243 ####[facility] [address] [place] [address] C Urineon 02-01-2021 Bacteria identified Cx Nom [...] R1: This test was performed at: [facility], [address] [place] [address], [address]- , , Normal [facility] Comment on above: Performed By: #### 1 8864107, 2151642 ####[facility] [address] [place] [address] Coding Summary.on 02-01-2021 Coding Summary. CD:[id number] G h0bWw+PGhlYWQ+GG9IVHK yP12jpVIieG2XV6vBVQ8K MDCOFWQODT5ILA8blJK1D OkiF8MicjZp ToczvUBkOR28FAd6GQJ6l IejIMgjhI0xcURtC9h0Mv RlXO07eR66WPqoVMXyFnJ 3LjZpbjsgbWFy I0fxYiNgcBFfFfh+PHRhY mxlIHdpZHRoPScxMDAlJy QnpHoyDA1nBc4xSGXpBYW vbGxhcHNlOiBj b2ifLMXnYIiiEW4hqZymZ 8RmdNC3CEHlc3w3Uz80zJ I+HHCxAYI9oJkzAJfef27 3WtDgc9psLPB5 eRRdMAewTOI7R57pd0F2T OZtISSdNBE4zME1cN5rlX oftamaR7KufEVdKeW5ZTV 0tRIxjA3ujVgm ylnkvZ4aOvf+W49WER8RF NXBKM9DXbd8R1JlKfqwzO I+GQ30ECSrFI01kZBfdQC ox9xgrPo2IjJw KQKvBYJ8oYsqFXpec0PsI KHyP03noWVvo8I3UPAxfX zbfFGuQlVzmIJ4dZ9kFSk nmsepn2ylisml Aqbbh7lfkr83cU61Y12rB TyvAYGqRBM9FLPkNYDkfU cfsm7oyX5uYz7+IGrvy8p gh3wdmDh6FfCd RFPydaLvgUcmSVZ9u5BdR b35B9EhmFzgw4XxCmn0es 27jLSxq1K2kTI1KCzeNUV gyO4sCSasAhT8 PWYwScQvfK48aEOtAOllD z1ekRjjnMrrHS1hUBVdnp wjGZHpcJ1aOKOmsOYlcTu fVA9iVHEgkwtg e887QgUyRVV3UITbcHTuA 4XhtG7sJxVtFMEkQQFiP2 GjhFOtZFpvA614PPlgFlK 3WAHdsuCoV2Vq RTMupJdeDvT4x1Y4Sn2Kd 8WrbmxfIOR7YFygDMO3Uc NxXjKzKkA4K8FhFkd8KYB xgQqmEH0rL3Zz EPHiflnlpujrgJK4CQOfL SDafQ67tOAkCUapGk2xi8 L9p302KJUpSFXkzN74Ne0 udDogMTBwdCBU yX0vkqzyf7uhwfyzMdQoP DSbOCu4MDj0GDSgbMezKc AtIPC2EjY4HHL6aFCskU9 wiYxfbclebZ3t Oyc+G63qzD4dOBJ4ATT4z tgcOZTustIoPT62CO84E7 RyPjwvdGFibGU+PGRpdiB coVeoYU8vAuBi x3ssv0ExZTcyX1YjLHAtT RjuJto7FTOyLQM9mEL9jJ 5lMGWmVWafc0M8uOV9S9P pfxZbgz6tq9cb EZJqFQnlO51lyPRro8G6H NJzxHR2JMWhzPgtRzGzlO 93Oyc+TCLluUulg9HbHyv oz5qms2uvjRi8 VxLsYTPqnuMtcGjhOKL2a 7StEx65V06gXTvzBYIlCN LjDDEzALQoeBgbki2rxW6 wIi8+PGNvbCB3 bLT4yB3oFLEbDyT4DXtxG 963KzMutELuGkego2guj5 nxaDf2IyOmXLXtohNhnWl gBDY6z9HlIa19 D44vAYdpHYFjDRPgFTSxB XKmyXjoki6thJ5iIb8+PC 7bt1znjo45xD66aAL+PHR cEXN8pNqvJXeh HKFsfN3xEEnqJcC5PLXdG xMvnD43eTSgSRyxPy5jzP ddtLcvWW3fTJIqbseyv39 1QzOmp3nqIKMs dRNuJPcsILD8X65du0C9R QVtFMFuCVV6mEV2aG3yxD lnbjogbGVmdDsgdmVydGl oRAqoPPufP697 IHRvcDsnPlBhdGllbnQgT sRnTTd8A6QoBlb1ESUhpZ qiTC3mwLCmNXszFt7slEz ipBfyJO2xUBEw oqcbf350YyDks0xdYNZxp ZUqESuaINL1K29zz3U5HY TqOOFnBMY5mCE2wZ6htHl nbjogbGVmdDsg xgSuvRieMDbrYJbfM011Q HRvcDsnPkJpcnRoIERhdG J7ZX49MN65sIVyr1W8pWN 2D9BtOGGzqeun hjqjqGU8GFZnDHCruO47M w9bnXizIa9pQVUtGNE1FQ JxsYNnZ7TwbW0jWsCyCPI jSCSnZ2ObhHXg ZZohZ902XSrjIjV2RHDid qUqK1IyWJIujEtfNfS4w0 C1Hh5FH4O4OC16MK58sAK gc6H9fAN8G4Nc OCGnvqaczkqcfUR2UDCtE UUusA86Hb1hbZsuTb1wNX LgMOR1CLHakMMcT3HufW0 yOiAjMDAwMDAw L0YrbBQrVKgzF969XNovX sH2JXSmumCtD6EoFVEchW uqGbG4e3R7Gl1QFDk6MV4 1MC80vRWvs3W5 gNK4V9TbRKRjhaammarfu JT8DSNyRYNmeF57Fs0osU uaMv4cTKKcKZS5QSCiuNF qS2DrcZ8fOgRb GKPcASYgG0ZtdUAuAZtcO 595ELeeIwI1NWRbiySjN1 SxRNFcfTvjTqB7a0F9Gp1 LWPIdMF74BVX9 cCT9GV08XE75Y5RxVuedu GFibGU+PHRhYmxlIHdpZH RoPScxMDAlJyBzdHlsZT0 jQk8fHIMwKWCx wDbseKFsNeFjw0mpRUGuN VatGQ3zaHemP9DytPA0IV Okc8w7Mi42D17cF2MeuJI +JTLrdRU4wLL5 gA2uDpLlOqO4UBcnW527Q bPhiPEbTzros5fce1cgpF j9DhR3SPPeoeSdwNwnRBA 1g3JmBn95Z00e IHdpZHRoPSIxNSUiIHZhb Kpzau1xwM2jOv3+PGNvbC S0qJM4sC9qYePiGzI6FRw yH195MqFwhUWn Hryif5lvf5hteWj2HkFjL QYhreXerIsdLXB7j8UzYz 35M4PwaXlgc5BdGsv9eh1 8uVYvx4E5tYU1 B0DfEEQhicgtrCRccNmpA V4oHMHwunwwRNTvfC3sIG SnK2u5HeAwWrV5MQnbE5A kpdD1VMOejZNg HOpbMEE3V23ep5N4PXVeS CUkEXD8cUV7pH9kyPblei ogbGVmdDsgdmVydGljYWw hBPmcJ273DMLp qGxqFSDypN4gSKPmbMXue ZewTB4hSACqqygxSlJVEU POINQGNByFN3R1T3JsUcc 2CUBmjYtyUK4g jCTyDPbuJk8jiFhxqNjoT B3tOPXpkrltVQZsyI2fLE CwxWReeCjuKQ6kTGKootq ku301XgDsDEN9 EMHmsXPfR4IzcZ8tOzSuF SVoPCEaO6IweAYkHDosH7 04BHtgLgM0ZBZwvgCsE4D sLWFsaWduOiB0 j0D2Gz9nWJ1fQy4wOCzbJ B03EP26vXWxf6M6vFH6K8 CtASAjaliffiublPO3LUY gSDXdkF36bGAr OCerAr9iw4I4i472AQHxG YVmvF14Rw7txRgjDHJhzG UPoZ3gxbcew4nyrszyHkH nDEFiXKi8BYz0 QTIkjYceQrLmEZM0CiP8Y ML8rYObpT8ktIfardsgaO 9wOyc+QbgsOIAzxeZ9T4V xVvp0PJCzqHgr WS7irTHaDBssDg1zpNadt PfpIM4wRMLlzbqiGXTkqF 5tQOIxrLLikYdcXF5pJAW ukldzm954ThYl VHM2OYFcxCUyE9NhhZ1bS yNgBJYkFNNeZ3GnrCRlDU eoL834IVisXxY4EUGoxuU yR8FuAUYaaXyy LhA7q8N5Xy4GWK2klNP5V 7DmIlv0MIIpkHhaSE6emV TvCBfpIh7fxKwyyNvwTP8 wNTBpbjtwYWRk jS0xNKPqkCNdlIrqLO3nZ QAhgsnzo540LiEwCQC7GC EywCEnI0KwtT9fQaWhZAK bKMOeO3TeqJIy LNbzE074FFjjHdL9QCTvb pHjZ8JxEECccPjoCfW4o5 R9Dk1NcONtC2JcI8l3S1H kPjwvdHI+PC90 AVReZD11bJNufXMku5eju Sy0KqOtQGWiCGB7gXaiEO zwk5DsVLOtY46zsQTbh1Z 6IGNvbGxhcHNl SdLgjMW4aP9fREpuyqrmd 1kygnblRuphz3shgh14dC 86H26fAHpuZOBoHAUySPH zHLNfnTibva2w kJ7kWd6+OFWnxLQ2fRV7z I4dDoOrOpX7TFwdO819Wx VcrLHyYugxs9eyf5wazEx 9IjIwJSIgdmFs pZrdBND6t1TjRg59P51qD HdpZHRoPSIyMCUiIHZhbG jnzd5ugA6xZt6+NW9sz4z oqi29rM10eIS+ PXRpKIH1fNqaSPokLNRit J7kYGriUaN8AFSxCcXzfK 04eCYeKUjfGv0iwYweqIn lNR6kZPPjtzmc r147BeYjk0tqQLVqdJCpI FaiOAZ0Q59dp0Y9UEMtWY RtKNP5tVE1fC8seJbfpem gbGVmdDsgdmVy xKrwRWqeJQknI328PJBuz LqfYrGegRMiS7qiafVQEP 1lOjwvdGQ+BKKdNPJ7eYw yBNqdYDOqfB5n JEJmL9j9EaGlBuN7OTtrL 7TxqpE2WOIkmDZwREPpvS CXjQ1tppszb8hwzwaqIaH nCVXwKFx8WYi6 CFGjvQfwXsDvSIE0SfP3I XC8tLBjtI5liXqcfaxetC 9wOyc+RklOOjwvdGQ+PHR gDMO6dXlpTIzo DRWqeD8wEDWpV4l2EbZjU eF2PBkrQ6DznjS7CPUmhH VeXKOuyVUMuG2xouovh5w vcjogIzAwMDAw TJe0DZl9CCHcgPbeFbYvA QI9OhA3HQQ3rPThzX6qhH rrkqnotO4uHrm+TVJOOjw vdGQ+PHRkIHN0 mHheLRllWRPfmY4nBJIwB 7f2HqTjWoY4OZbyJ1Jqdt X3RJHugSHuRCJwnBOFmU5 wxayho4kduxvy FzFsTEFiNNn4SXm2RVYee YybVrPjYDX5BxW0RNZ9mJ BcfC6shGnvmiizyP3lOug +MJK0JTS2TF94 OD45K0SvKaynrXOqjBO+P HRhYmxlIHdpZHRoPScxMD ElQnJvgMgiSC0cUl8cIJX yLWNvbGxhcHNl OiBj (more content not included)... Normal [facility] B hCG Qualon 01-31-2021 Beta hCG Ql Negative Normal [facility] Comment on above: Performed By: #### 2 350597, 3595122, 3616869, 53666883, 5478879, 73258336, 1667129 ####[facility] [address] [place] [address] Discharge Instructionson Discharge Instructions [id number]# 1.00CD:127 Normal [facility] ED Clinical Summaryon 2020 ED Clinical Summary [address] [address] ED Clinical Summary Person Information Name: RAJIV OTVAR/Sumit Age: 25 Years : 1995 Sex: Female Language: Swedish PCP: Alon Weber MD Marital Status: Single [...] 01/30/2021 23:43:48 01/30/2021 23:43:48 01/30/2021 23:43:48 ADDRESS: [address] [place] [id number] PHYS DOC NOTES: MEDICAL INFORMATION: Prescriptions Given: New Medications [id number], [address], [place] [id number], [phone] cephalexin (Keflex 500 mg Cap) 1 Capsules [...] Follow up: With: Address: When: Alon Weber [address] [place] [address], [address] [place] [id number] Business (1) In 3 days 02/02/2021 DIAGNOSIS: Acute UTI Normal [facility] ED Note-Physicianon 02-01-20 ED Note-Physician CD:[id number]:[id number] 2 0ND52kVsinyYxd4zave3i RL0qFtZpamUxQDipVz4hv 3yyVM65ls9eBrXsOw7+Cj hxKU3SEEuPEYOm yQ3zDFUDMezPQvGaHE2yO xWFIb5EGUSxKRiIAFulKJ 5zWGZ0okcjnN3cUK3vWYN efCKvPh4oe2x8 DehhJg3jCj3QJg56uKUan OXcRPNOM3bkiT0eCR7chI MxS6ZhJLRuSk2NPUs5qFi muQ1oleB4Cgp7 sHB4Es57j5lnqkVtc6BuV sN5HTxurUt1tAbiGZblxK 2gHvWxJWEOxP2fvEjlYC8 iyT1bswYkrGxu biI+IlrhLIOdGbi8lRXpT J42M1NfeOnqIey5wLB6CC CrvENoGDEggUq1OUDICLV BLUNvbXBhdGli jQJrEGPcczRqgsC0LipUY FGjSeCrToh3J2lqACZ+Cj vfh6B4Hib6UOh3FBT6eSt fKKLkx443XONd sBwuaFbqyJGcf10zTLYhd BLlPrKes505ZOSpqrY1TK gwlWafPjd5qVXgmZZlu4o diCj2CwFuIQWd UpvLOCMuzMqdc7BxWiaBO Jsmx6udmiDcrEbzHSU1s9 NsOKowSTTaKQW5BdLiTU6 +CgkJPGNvbCB2 MDwrS706MbNsdZKjs0hox Je1BqT0UUWqBy0DPBgfT3 0oY0RcdFJ+Ltx3uSQwKFe +CgkJPHRyPgoJ DLj1fEUqv3C3hRO9WaDvb kNxu7f6DBfhVLF8TqV8JC S2vSSmqI3ohZayfsugiE8 wOyI+CgkJCTxk jIFaD4rfg6I1MlGxq1Wjp PjxzlYiBQQtLrDcf9khAb pnLUSqqN7lCFS1UzRpVNE leHQiIGlkPSJf VtAdAPAnKaStHOIyVb03L jBsDJh4KGqbIqfzNSW8Ix FhJlIvSqRntIhbGF2neID kZGluZzogNHB4 OyI+EZPfBO1dO6krr1K8P eCjv0PcjBxcdnAgx0XuDN xjUaqxdNFyRQC1pEuyGBX lk553JLsqdLrz vOhaGw1oDLxytQH9gF8mU LUswdC4fK3pFgZ9utMzfu xpnnI4Gy6JPEDnCkRSewT dhw3gfEbtymtj t6Tifz68U0GjFW1+CgkJC TgpyIZwR1iep2S0CtAsl3 Xts68yzjB6UF0ywMA1WPM oYTKhLiFzq7cn YmxlIGRkZnJlZXRleHQiI GSsIdN0sbFpa1Q0wX2ro0 X5oFZ2WySjiR5pcQxxdQO kSJC1oDXjoHuf jMZkP0hoDKLGK2gdG03VY KZSAUGHLUZvGIg0LBqjCm QiIGlkPSJfYTMyMjFhZGU zCPEbAE21QeLu IFWiGNNuYuR4JFDlJlQ5U RH3Gf37s3LzswLguXqxBJ 4nrYAfK0aoXoElvZBzOHm dSsKwQMVvvL2z OiUiwNJ9OXFniADaMPysJ 720VIqlSzX7SDHxgG4dVt KuA8TnAGuxZCpmTYv7DQA icxDdl3X1aCY1 UD9pso5boHdpDv4xeE89G ChluIJ1JP6tuq0wpKouxE D2eT8rYMHfijJ0fX9pXhP bu24eQgL+JiN4 QXD6Lr8fmHZaiOpawTmfH sCsHCJxKWG3UHzzVNGuCJ 2oT1muOMe7V2TxZL1+PGJ yIC8+CgkJCSYj wEYxRagxOFk3TbtLMRiZH AUuyaBveJGizb4iJHQmcr YyuZR9cFLcAHMzoL05LXA iNWQzRMT5KhLm JlqyAZJlpbiuoPltZH4we O6wLXIsY5x3FaEjXG3xRj uaEnH4SJhzHTh3IAsxRKm bUO53PWc1FOUw SBK3WcVfVeQbFjSca4B0e PD8KmBdn0QwAZv9UG3tni V9Pq08P3Vxos4YMRbASP9 kaXY+CgoJCQk8 KSu2RLHoYNSzWTVmCPZpZ 6Rbe37tRUCfRDZiFVZhZB CgINCtZYgln7BisRQkFVP 6HJx3KDXxzoIg f7LySllcMfMrKBpeVUD5a N2wT38bSS7sNG7YVdDrXI HcCOEhLpVbzKK7Fw69PwF 2VRK6OE80YqJd IIE9OCqhOCx4Vw2zCYZuF vBcHZW7ROcdPRG7kNyjEJ WyGAIphZ1xEcV5eDw1Qi3 8q0FdbdPjyBSo tp5rUWLwDML2aU8gDBmvm GxheSI+CWFpXK6cz0B1xH O2CxWoooGvx3DwL1n3VnD kg0qnWjX0UJj7 VGOuB14jFJQwx396CFPoA GVybGluZTsiPkNoaWVmIE XdpGViIWywiCana7Jglt8 6F3WuBK7+CgoJ HHe6WXa9MXOuMJCcHKKmN GVtcmNvbnRlbnQiIGRkOm IhdrJfaqM4wYJxXKGRJHG EABEIE45GJFZa ZJJiYdStYmTgLY2yBQE7z WT6VwIGIzSiFAk3HJSfDP SfIRCPHu0JUPDbLQFWHLE WNCS6ZOWVXNJt pPG8Oe72PoStAjsfFv8rI RWpSXZmOjXsPppdKl8fFY t8XFDgTHoxLaFcJosPUHo 6WQo1DOXuXFKl PSJkZGVtcmNvbnRlbnRpd TAvTILhelVqe3YcSwtwJf JpSWlep826ML00oChsCM0 jNRCWA6SNYT8Q RUFTIiBkZDplbnRpdHlpZ K1rKIh2BTD1OREpGsBpxP K5Bv6hSFXaPhahVd7nNGH hLTRkMWMtYjNl Cb91JCD1KYy6SEI7DiyoH NeiqE1sSwUrOTJVpQ2flT khDQ9wbG5ggkRlrOybaoH +cHQgYXJyaXZl uaYhl8LrwpbykGNmy3qfX CUnJWOcCEBnrB0fvXmvdA DksJAfhWXxaA2veIeyGPO mUR5jAULmXQ0k X62tdbJ2ryH8kXIsgujuz EBtKPQ5SYyaXGSglSpoDG OyVHCvCFSbtjIbp0DyAEg sPE7hURqmzpUd pNRnPaIbchDhhB2xCFD3y 9DaYvuzEDs2PorNKPa2H6 Siej7ADDpVFH6ctQD+Cgo TSYo1JEj4ILRh TYZgBFJtAJWeB4Xxi54wP GRyZWZyZXNoYWJsZSBkZG tqb1PsoYZiJNP1WJy3PNV wgnAao9DjKsif XoAcIOkoSCY3wP6wE34xN R9xUG8OUnMzTYWxBfCmPi PnnEO2Hn5cD0YaHJA2WA6 iRmCsCUF6TuTz DYt8Fv0bPXG0UtI9KIvaU AGdKXH9uIffDGXmQXUnjY 3cCuU3tMh8Qn74j3PdmpQ csPWbtc3pSHUf MQT0gT1uQIzopDyypHF+P UUdXQ1et8U5cHZ9OsQwnu Zgw9YxD0f7QeCce7dhIrD 2KMz5ZHJxN69s MMPfo342PFRtNFEwkAcqW MckGsnzl6Onsinzm0TgJU Uby7FrjSJPwRikQZIhWH6 fcRGwTfwaa7Ni ph9BRanWYMpboEMvA5eme 3R6MmTlQH9jT73egECowS NxJUZ9A72aW9AatG1gQHX LRiHnGXrvq896 PU98tPumLE5rOC5PZ9KVU WMuVEMmSlUuSkNrLF4uOO L6gFS2FsBcObNxZoU7AFT 1XARlMUQVIb71 FivZLSUAUmH3Y0V5J1H7H CJclMZ3Ap8pLEF0IhaeIK 92WXUaAFUlVRIfEXEjGJ3 3WXFfTVY1POE4 IDdmUyvMOYz2DLu6UHRjI XNzPSJkZGVtcmNvbnRlbn RqpCWlYbHsKDaxc654EX6 1tExtGV2zRSDW E2QBQW8ZFJBYIbAwPYvxj pSajJysMQ8qKPPlVMD7ZR 45lDR0dzOfj4txms0aHMI rsUB2Hx02TJRe FjikPA8hJnyoQZX3XOelS PR7Qg83XQA9DSIrIJVaOD QeIemYWYy0IJz1DKNkAYH zPSJkZGNvbXBv grNnsBQrXUG7RN18oPW0l TJ5aWF9iPE2AjMdu8ZzsG QyqXHkgWM4Bi43C8J7Hiw wAD1cE3GkDKVs FxczTtX8Zv71QUEzVcHaH IB3D0XyIgbZHLt9EYn3TZ XnIMEmBPQmEACkAZH0XBd 6XXTtewAks1Yt RjnjQeMdGFrpvV5ixR2yz XpwE1K6mHhvQAO3k2Xalt lnaHQiIGlkPSJfMjlkMjM 9EFVdEHVqGI15 Lrh7HKAhPpQlJFz2CYx9Q nX4XbR6Cl2NKDgtp5XmR1 ncMlXmvFDkYQKsGiI4UQM rAX5tJHFxQH2t pHZok9i8zKEWJZvpl7Glt 0KtlpjwaeOxgQN0upKypx JqBC11urP0wTYdBZQrbCY dimIcwLQ9c1G5 PB5gBZcbdSAufUu4bJUyh XIioIIbB8XmBX4gZ0FyUL 7ybN4pvQHyCTcwQUCfNCV hH0YvUFFyVB2a ZNSsvM8nfC9kYCHvVYYbu eX8rTFgkXGjjJxgCAFlK0 JpYmVkIGFzIHNoYXJwLCB wdhDzc2CoRRUo y32jeUn7PTOwPItfaVUjY TCoKNbpq2nfYLShBYJ7HB bdPkdaJN6yXXggd9RjCSH kG7sxIEY0yeNg bnRseSByYXRlZCBhdCBhI GkgQQYfDX5aJLbkoyS8e4 nxitBpRQEtlGWjhP4yuOr gQSFaa5JzVYSq iE3ce8L0YN7uUVAvx1ZyI WWyZJV6bPIzLO5mgr9cJY KcyNHnEHM7k5ZydUEuSY5 aNWVnPRW1NO5d vByvZmV3YEJoHS0rr8WhI PnseJJ4kYChCH4qCQTsTY 1uf3Y7lWV1KvVcOBTvskr nuQ3mVmEfrCg0 OPXrKYUgvvigDa28rC1pJ eUxeOa3QC6rnnvhwi76f8 K4QAUdxRgjhBAaZ3jlCDB vdHRvbTogMHB4 OyI+Pu7tjFoidL9ohXDbI hLxlOQqQRzam4ZfvfOiNf xbf3Goyh4hO0vvPNf0f0R hjvOhlSfgLO5p uWAcCWeaQg68w9Q3LPXmg MiiwCDzGWbgRz4fk6Q0f8 43KWMfdPzilBGaZ8xuPJD zgQyfEEK6CnMg Y (more content not included)... Normal [facility] Comment on above: Result Comment: [...] this condition includes: ? Antibiotic medicine. ? Pqzj-lcw-pdhwwqq medicines to treat discomfort. ? Drinking enough [...] these instructions at home: Medicines ? Take dqwk-wtm-vkzuefn and prescription medicines only as told by [...] This in (more content not included)... Normal [facility] ED Patient Summaryon 021 ED Patient Summary [address] [address] Patient Discharge Instructions Person Information Name: RAJIV TOVAR Age: 25 Years Arrival Date: 01/30/2021 20:17:08 Discharge Diagnosis: Acute UTI Primary Care Physician: Alon Weber MD Provider Information Primary Provider: Joshua Hollingsworth DO [employer] Reamer:None The exam and treatment you received in the Emergency Department were for an urgent problem and are not intended as complete care. It is important that you follow up with a doctor, nurse practitioner, or physician?s commercial real estate assistant for ongoing care. If your symptoms [...] Follow-up Instructions: With: Address: When: Alon Weber [facility] [facility], [address] [place] [id number] Business (1) In 3 days 02/02/2021 In the event that this physician does not participate in your insurance network, please consult with your insurance company to find a nearby participating provider. Patient Education Materials: Urinary Tract Infection, Adult A MESSAGE TO ALL PATIENTS REGARDING OPIOIDS PRESCRIPTION OPIOIDS: WHAT YOU NEED TO KNOW Prescription opioids can be used to help relieve qtqafplt-zc-hymkux pain and are often prescribed following a [...] be struggling with addiction, tell your health home care physical therapist and ask for guidance or call [employer]?S National Helpline at 0-973-960-HELP. v Source: [place] Department of Health a (more content not included)... Normal [facility] UA With Cult Reflexon 2020 Bacteria LM Ql (Urine sed) 1+ /HPF Abnormal Trace [facility] Comment on above: Performed By: #### 1 [id number] ####[facility] [address] [place] [address] Bilirubin Ql (U) Negative Normal Negative [facility] Comment on above: Performed By: #### 1 [id number] ####[facility] [address] [place] [address] Clarity (U) CLOUDY Abnormal Clear [facility] Comment on above: Performed By: #### 1 [id number] ####[address] [address] Color (U) YELLOW Normal Yellow [facility] Comment on above: Performed By: #### 1 [id number] ####[facility] [address] [place] [address] Crystals LM Ql (Urine sed) Present Normal [facility] Comment on above: Performed By: #### 1 [id number] ####[address] [address] Epithelial cells.squamous LM.HPF (Urine sed) [#/Area] 0-2 Normal 0-2 [facility] Comment on above: Performed By: #### 1 [id number] ####[facility] [address] [place] [address] Glucose Test strip (U) [Mass/Vol] Negative Normal Negative [facility] Comment on above: Performed By: #### 1 [id number], [id number] ####[address] [address] Hemoglobin Ql (U) TRACE Abnormal Negative [facility] Comment on above: Performed By: #### 1 [id number], [id number] ####[facility] [address] [place] [address] Ketones (U) [Mass/Vol] Negative Normal Negative [facility] Comment on above: Performed By: #### 1 3499233, 4887628 ####[facility] [address] [place] [address] [place].plasma/Lithi um.RBC (Bld) [Mass ratio] 0-3 Normal 0-3 [facility] Comment on above: Performed By: #### 1 8333332, 6201619 ####[address] [address] Mucus Ql (Urine sed) TRACE Normal [facility] Comment on above: Performed By: #### 1 5922101, 3408362 ####[address] [address] Nitrite Ql (U) Positive Abnormal Negative [facility] Comment on above: Performed By: #### 1 9369664, 0558123 ####[address] [address] pH (U) 7.5 [pH] Invalid Interpretation Code 5.0-9.0 [facility] Comment on above: Performed By: #### 1 5410170, 1388269 ####[address] [address] Protein (U) [Mass/Vol] Negative Normal Negative [facility] Comment on above: Performed By: #### 1 4623485, 9669257 ####[address] [address] Specific gravity (U) [Rel density] 1.020 Invalid Interpretation Code 1.005-1.030 [facility] Comment on above: Performed By: #### 1 9478314, 2402310 ####[address] [address] Type of Urine collection method Clean Catch Normal [facility] Comment on above: Performed By: #### 1 2452926, 0866480 ####[address] [address] Urobilinogen Qn (U) 0.2 {Arnie'U}/dL Normal 0.0-1.0 [facility] Comment on above: Performed By: #### 1 1606987, 3649326 ####[address] [address] WBC Auto Ql (U) 1+ Abnormal Negative [facility] Comment on above: Performed By: #### 1 4517397, 0435667 ####[address] [place] [address] WBC LM.HPF (Urine sed) [#/Area] 6-15 Abnormal 0-5 [facility] Comment on above: Performed By: #### 1 0247136, 0409091 ####[address] [place] [address] Auto Diffon 01-30-2021 Basophils/100 WBC (Bld) 0.4 % Normal 0.0-2.0 [facility] Comment on above: Order Comment: Order Added by Discern Expert. Performed By: #### 2 701006, 5746130, 1935043, 81064182, 4330494, 53251822, 8834984 ####[address] [address] Basophils/Leukocytes Auto (Bld) [Pure # fraction] 0.0 E9/L Normal 0.0-0.2 [facility] Comment on above: Order Comment: Order Added by Discern Expert. Performed By: #### 2 311803, 2910348, 2951543, 51618327, 0072744, 96465303, 5113776 ####[address] [address] Eosinophils/100 WBC (Bld) 1.4 % Normal 0.0-8.0 [facility] Comment on above: Order Comment: Order Added by Discern Expert. Performed By: #### 2 629516, 5413757, 7155168, 51569228, 2827900, 24359479, 8669415 ####[address] [address] Eosinophils/Leukocyt es Auto (Bld) [Pure # fraction] 0.1 E9/L Normal 0.0-0.5 [facility] Comment on above: Order Comment: Order Added by Discern Expert. Performed By: #### 2 303536, 7664453, 3482925, 11791782, 9612200, 96342944, 5513619 ####[address] [address] Lymphocytes/100 WBC (Bld) 23.7 % Normal 14.0-50.0 [facility] Comment on above: Order Comment: Order Added by Discern Expert. Performed By: #### 2 432184, 6550713, 7112914, 35991405, 4705870, 77803549, 7680045 ####[facility] [address] [place] [address] Lymphocytes/Leukocyt es Auto (Bld) [Pure # fraction] 1.9 E9/L Normal 1.0-4.0 [facility] Comment on above: Order Comment: Order Added by Discern Expert. Performed By: #### 2 775073, 5160563, 6578338, 32665348, 4366428, 85262095, 1454630 ####[address] [address] Monocytes/100 WBC (Bld) 6.2 % Normal 4.0-14.0 [facility] Comment on above: Order Comment: Order Added by Discern Expert. Performed By: #### 2 457884, 0150415, 8317461, 92351132, 9178237, 99140129, 8619018 ####[address] [address] Monocytes/Leukocytes Auto (Bld) [Pure # fraction] 0.5 E9/L Normal 0.2-1.0 [facility] Comment on above: Order Comment: Order Added by Yifan Expert. Performed By: #### 2 836705, 0852712, 4008183, 83181111, 2383279, 47746482, 4972406 ####[facility] [address] [place] [address] Neutrophils/100 WBC (Bld) 68.3 % Normal 36.0-75.0 [facility] Comment on above: Order Comment: Order Added by Yifan Expert. Performed By: #### 2 527038, 7709847, 9803675, 01490130, 8556068, 99467282, 5928603 ####[facility] [address] [place] [address] Neutrophils/Leukocyt es Auto (Bld) [Pure # fraction] 5.6 E9/L Normal 2.0-7.5 [facility] Comment on above: Order Comment: Order Added by Discern Expert. Performed By: #### 2 672661, 5709563, 1478616, 80001815, 4523855, 07816827, 9773687 ####[facility] [address] [place] [address] BMPon 01-30-2021 Calcium [Mass/Vol] 9.0 mg/dL Normal 8.9-11.1 [facility] Comment on above: Performed By: #### 2 735160, 4689034, 5138444, 42804678, 8058824, 99674808, 3888431 ####[facility] [address] [place] [address] Creatinine [Mass/Vol] 0.7 mg/dL Normal 0.5-1.3 [facility] Comment on above: Performed By: #### 2 405186, 4216558, 4416863, 82791012, 1408708, 74953535, 2817122 ####[facility] [address] [place] [address] Urea nitrogen [Mass/Vol] 10 mg/dL Normal 5-21 [facility] Comment on above: Performed By: #### 2 012629, 5480666, 0143795, 57190456, 7849611, 03996879, 4594123 ####[facility] [address] [place] [address] Urea nitrogen/Creatinine [Mass ratio] 14 No Units Normal 10-20 [facility] Comment on above: Performed By: #### 2 057479, 6737776, 2890450, 98640285, 2143212, 14873375, 2434288 ####[facility] [address] [place] [address] Anion gap [Moles/Vol] 12 mmol/L Normal 6-16 [facility] Comment on above: Performed By: #### 2 217863, 4816964, 0178300, 56696840, 4987494, 69097229, 9213932 ####[facility] [address] [place] [address] Chloride [Moles/Vol] 104 mmol/L Normal 101-111 [facility] Comment on above: Performed By: #### 2 469405, 7583949, 2947085, 44223808, 3259671, 50961179, 0778002 ####[facility] [address] [place] [address] CO2 [Moles/Vol] 25 mmol/L Normal 21-31 [facility] Comment on above: Performed By: #### 2 855867, 0785293, 6303815, 76479761, 6586402, 72948470, 1591245 ####[facility] [address] [place] [address] Glucose [Mass/Vol] 93 mg/dL Normal 55-199 [facility] Comment on above: Result Comment: If t his glucose result represents a fasting glucose, interpretation should refer to the following reference range: 55-99 mg/dL Performed By: #### 2 310487, 4908338, 9773786, 26849712, 6373336, 20647179, 6095213 ####[facility] [address] [place] [address] Potassium [Moles/Vol] 3.8 mmol/L Normal 3.5-5.3 [facility] Comment on above: Performed By: #### 2 796614, 8455802, 7611093, 71163107, 2645810, 11372223, 2404448 ####[facility] [address] [place] [address] Sodium [Moles/Vol] 137 mmol/L Normal 135-145 [facility] Comment on above: Performed By: #### 2 051396, 8990213, 3065879, 60432878, 8326467, 74377678, 2662737 ####[facility] [address] [place] [address] CBC w/ Auto Diffon 1 Erythrocyte distribution width (RBC) [Ratio] 12.2 % Normal 10.9-14.2 [facility] Comment on above: Performed By: #### 2 217232, 4851727, 0251501, 80380983, 7041985, 44561964, 8497906 ####[facility] [address] [place] [address] Hematocrit (Bld) [Volume fraction] 39.3 % Normal 34.0-46.0 [facility] Comment on above: Performed By: #### 2 131893, 4380577, 0992294, 45769994, 9141408, 90452764, 8489225 ####[address] [place] [address] Hemoglobin (Bld) [Mass/Vol] 13.3 g/dL Normal 12.0-16.0 [facility] Comment on above: Performed By: #### 2 895168, 9671878, 5729658, 31751856, 3559661, 89496674, 9271907 ####[address] [address] MCH (RBC) [Entitic mass] 31.3 pg Normal 27.0-34.0 [facility] Comment on above: Performed By: #### 2 804447, 1349077, 7902145, 70801637, 9717361, 62909286, 4568329 ####[address] [address] MCHC (RBC) [Mass/Vol] 34.0 g/dL Normal 31.4-36.0 [facility] Comment on above: Performed By: #### 2 692480, 8816455, 5749455, 00520263, 6247582, 13776931, 7099039 ####[address] [address] MCV (RBC) [Entitic vol] 92.1 fL Normal 80.0-100.0 [facility] Comment on above: Performed By: #### 2 849856, 2396464, 4735349, 65767092, 9803076, 71964814, 0006292 ####[facility] [address] [place] [address] Platelet mean volume (Bld) [Entitic vol] 9.2 fL Normal 6.4-10.8 [facility] Comment on above: Performed By: #### 2 527487, 5507719, 7705391, 20404366, 6622937, 07431555, 2144610 ####[facility] [address] [place] [address] Platelets (Bld) [#/Vol] 214.0 E9/L Normal 150.0-500.0 [facility] Comment on above: Performed By: #### 2 488491, 7102960, 7009834, 75609542, 3750042, 61986389, 8113747 ####[facility] [address] [place] [address] RBC (Bld) [#/Vol] 4.3 E12/L Normal 4.3-5.9 [facility] Comment on above: Performed By: #### 2 272691, 7487075, 2901060, 69264562, 0680020, 11169904, 0065938 ####[facility] [address] [place] [address] WBC corrected for nucl RBC Auto (Bld) [#/Vol] 8.2 E9/L Normal 4.0-11.0 [facility] Comment on above: Performed By: #### 2 134480, 8800213, 5426754, 72639273, 8547033, 15881665, 4790251 ####[facility] [address] [place] [address] Consent for Treatmenton Consent for Treatment [id number]#1 .00CD:127 Normal [facility] Hep Func Panelon 01-30-2021 Albumin [Mass/Vol] 4.0 g/dL Normal 3.3-5.0 [facility] Comment on above: Performed By: #### 2 299689, 3706569, 1164512, 87192579, 5300464, 10766725, 7075918 #### [facility] [address] [place] [address] Albumin/Globulin (S) [Mass conc ratio] 1.5 Normal 1.1-2.2 [facility] Comment on above: Performed By: #### 2 292706, 2138998, 9331673, 72106885, 6378077, 32438212, 2009874 #### [facility] [address] [place] [address] ALP [Catalytic activity/Vol] 44 Int._Unit/L Normal 21-98 [facility] Comment on above: Performed By: #### 2 473674, 3436499, 6652625, 46488513, 1581531, 01799090, 0572685 #### [facility] [address] [place] [address] ALT No additional P-5'-P [Catalytic activity/Vol] 20 Int._Unit/L Normal 6-46 [facility] Comment on above: Performed By: #### 2 736723, 3856683, 7610875, 88935562, 9085831, 36312510, 5315435 #### [facility] [address] [place] [address] AST [Catalytic activity/Vol] 16 Int._Unit/L Normal 5-43 [facility] Comment on above: Performed By: #### 2 695795, 9017926, 2282568, 61214831, 8975199, 01399697, 7719065 #### [facility] [address] [place] [address] Bilirubin [Mass/Vol] 1.1 mg/dL Normal 0.0-1.1 [facility] Comment on above: Performed By: #### 2 974376, 1905085, 7336951, 21483152, 1857166, 40292819, 5638613 #### [facility] [address] [place] [address] Bilirubin.direct [Mass/Vol] 0.2 mg/dL Normal 0.1-0.4 [facility] Comment on above: Performed By: #### 2 137658, 1543916, 5228628, 26874451, 4725220, 89322353, 3520999 #### [facility] [address] [place] [address] Bilirubin.indirect [Mass or moles/Vol] 0.9 mg/dL Normal 0.1-0.9 [facility] Comment on above: Performed By: #### 2 325883, 0758841, 0161775, 44583102, 8527800, 47121083, 7159233 #### [facility] [address] [place] [address] Globulin (S) [Mass/Vol] 2.6 g/dL Normal 1.4-4.0 [facility] Comment on above: Performed By: #### 2 531337, 3783743, 9985359, 47072997, 2698361, 29592106, 3486950 #### [facility] [address] [place] [address] Protein [Mass/Vol] 6.6 g/dL Normal 6.0-7.8 [facility] Comment on above: Performed By: #### 2 436410, 7598300, 4472443, 60152711, 9881454, 17452336, 8617562 #### [facility] [address] [place] [address] Lipase Levelon 01-30-2021 Lipase [Catalytic activity/Vol] 32 U/L Normal 13-58 [facility] Comment on above: Performed By: #### 2 044461, 0380453, 5040283, 11889682, 0787607, 15322703, 7267079 #### [facility] [address] [place] [address] eGFRon 01-30-2021 GFR/1.73 sq M.predicted among blacks MDRD (S/P/Bld) [Vol rate/Area] mL/min/{1.73_m2} Normal >=59 [facility] Comment on above: Order Comment: Order added by Discern Expert. Result Comment: eGFR is race adjusted. AA=. Performed By: #### 2 735548, 0491414, 0743050, 59818845, 0433256, 94899557, 4092107 #### [facility] [address] [place] [address] GFR/1.73 sq M.predicted among non-blacks MDRD (S/P/Bld) [Vol rate/Area] mL/min/{1.73_m2} Normal >=59 [facility] Comment on above: Order Comment: Order added by Discern Expert. Result Comment: Technical Documentation Specialist bib kidney disease could be indicated at eGFR's of less than 60 mL/min/1.73m2. Kidney failure is indicated at less than 15 mL/min/1.73m2. Performed By: #### 2 177160, 6926966, 1822184, 36985464, 0185903, 32811887, 4712378 #### [facility] [address] [place] [address] Provider Letteron 06-03-2020 Provider Letter June 03, 2020 To Whom It May Concern, Rajiv has been under my care and had a lap choly on 05/10/2020. She was seen post operatively on 05/23/2020 and was healing well. Rajiv is released to work on 06/06/2020 with no restrictions. Please call the office at [phone] with any questions/ concerns. Sincerely, Dr. Aiden Izquierdo faxed to [facility] to [phone] Normal [facility] Ambulatory Clinical Summaryo n 05-23-2020 Ambulatory Clinical Summary {[id number]}CD:[id number] Normal [facility] General Surgery Office/Clini c Noteon 05-23-2020 General [...] f/u prn Follow-up With When Contact Information TIMBO POLK, Aiden Davila Only if needed [address] [place] [address]- Additional Instructions: F/U PRN Problem List/Past Medical [...] Family History Family history is negative Normal [facility] Comment on above: Result Comment: Elec tronically Signed By: Aiden IZQUIERDO MD\.br\Date and Time Signed: 05/23/20 10:17 EST\.br\Electronically Co-Signed By: Mildred Cook MA\.br\Date and Time Co-Signed: 05/23/20 09:55 EST IntraOperative Documentson 1 07-17-2019 IntraOperative Documents [id number]#1 .00CD:127 Normal [facility] Ambulatory Clinical Summaryo n 05-16-2020 Ambulatory Clinical Summary {[id number]}CD:655394 Normal [facility] Gastroenterology Office/Clin ic Noteon 05-16-2020 Gastroenterology Office/Clinic Note Chief Complaint f/u EGD HPI Staff This is a 25 year old female who presents today for a follow up to EGD. History of Present Illness 24 years old white female with no significant past medical history except for anxiety, referred to me from [facility], ER to be evaluated for right upper quadrant abdominal pain, she reports right upper quadrant abdominal pain, started 6 weeks ago, sporadic, moderate in nature except for the last time when it was severe for which she went to [facility], ER, she had normal CBC, CMP [...] Ezequiel MARTINEZ MD Only if needed [facility] [address] [address]- Additional Instructions: Patient Education Cholelithiasis Problem List/Past [...] Pathology Report; 04/29/2020 10:57 EST Normal [facility] Comment on above: Result Comment: Lupe mandel Signed By: Ezequiel MARTINEZ MD\.br\Date and Time Signed: 05/16/20 13:22 EST Patient [...] required. HOME CARE INSTRUCTIONS ? Only take stmy-dzn-tirgacy or prescription medicines for pain, discomfort, or [...] Document Reviewed: 08/09/2011 ExitCare? Patient Information ?2013 [employer] [facility]. [facility] Coding Summary.on 05-13-2020 Coding Summary. CODING DATE: 05/13/2020 FINAL [facility] STATUS: Home (Routine DC) PAYOR: Reba APC DESCRIPTION 5361 Level 1 Laparoscopy and Related Services ADMIT DX: REASON FOR VISIT DX: K81.1 Chronic cholecystitis FINAL DX: PRINCIPAL: K81.1 Chronic cholecystitis SECONDARY: K82.8 Other specified diseases of gallbladder F41.9 Anxiety disorder, unspecified PYMT PROC APC STAT DESCRIPTION DOCTOR NAME DATE 54855 5361 J1 Laparoscopy, surgical; Aiden IZQUIERDO MD 05/10/2020 cholecystectomy with cholangiography 63[address] Anesthesia for Bakari Husain Jr, DO 05/10/2020 intraperitoneal procedures in upper abdomen including laparoscopy; not otherwise specified NOTE: The code number assigned matches the documented diagnosis and / or procedure in the patient's chart. However, the narrative phrase printed from the coding software may appear abbreviated, or result in slightly different terminology. Revised Coded By: Eugenia Mae Revised Date Saved: 05/13/2020 02:09 pm [facility] Main OR Intraoperative Recor don 05-13-2020 Main OR Intraoperative Record IntraOp Document Type FT Summary Primary Physician: Aiden IZQUIERDO MD Finalized Date/Time: 05/13/20 11:07:53 Pt. Name: RAJIV TOVAR/Sex: 1995 Female Med Rec #: [id number] Physician: Aiden IZQUIERDO MD Financial #: [id number] Pt. Type: A Room/Bed: Admit/Disch: 05/10/20 07:43:57 - 05/10/20 15:00:00 Institution: Case Times FT Entry 1 Patient Times In Room 05/10/20 09:29:00 Out Room 05/10/20 10:27:00 Procedure Times Start 05/10/20 09:44:00 Stop 05/10/20 10:20:00 Anesthesia Times Start 05/10/20 09:29:00 Stop 05/10/20 10:27:00 Last Modified By: London TURNER, My Cummings 05/10/20 10:27:42 General Comments: 1011- scale technician called dr. guo read xray dilated tapers distally can't exclude small stone possible spasm , Dr. Izquierdo stated understanding. - joan turner 05/13/2020 Chart opened to review and send charges. Angela Leavitt HERBARIUM CURATOR. Case Attendance FT Entry 1 Entry 2 Entry 3 Case Attendee Ankit AGUILAR, Linnea IZQUIERDO MD, Aiden ARAUJO MD, Ramandeep Cummings Role Performed Anesthesiologist Surgeon - Primary Surgeon - Assist 1 Chassis Inspector Time In 05/10/20 09:29:00 05/10/20 09:40:00 05/10/20 [...] London TURNER, My Villalba RN, Bernadette Osman. Metal Work Duct Installer, Arlette Davila Role Performed Water Supply Technician - Primary Scrub - Primary Scrub - [...] 10:27:43 Entry 7 Entry 8 Case Attendee Kim Gonzalez CST RT(R), Magalie Davila Role Performed Scrub - Primary Housing Property Manager Time In 05/10/20 09:29:00 05/10/20 10:00:00 Time [...] PreOp Antibiotic No Time Out Linnea Clemons Given Participants EAdelfo, TIMBO POLK, London Bray RN, Deejay Chowdhury RN, Angel Oglesby Metal Work Duct Installer, Carlos Rock CST, Macie C Time Out [...] By: Artemio (more content not included)... Normal [facility] Postoperative Documentson Postoperative Documents [id number]# 1.00CD:127 Normal [facility] Progress Note-Physicianon Progress Note-Physician Patient: RAJIV [...] TID, # 10 tab(s), Refills(s) 0, [id number], cm, 04/19/20 6:20:00 EDT, Height/Length Dosing, 58.5, kg, 04/19/20 6:20:00 EDT, Weight Dosing omeprazole 40 mg Cap-DR: 40 mg = 1 cap(s), Oral, Daily, # 30 cap(s), Refills(s) 2, Pharmacy: [facility]/pharmacy #[id number], 168, cm, 04/20/20 10:06:00 EDT, Height/Length Dosing, 59.5, kg, 04/20/20 10:06:00 EDT, Weight Dosing Documented Medications Documented desvenlafaxine 100 mg Tab-: 100 mg = 1 tab(s), Oral, Daily, Refills(s) 0, Depression Problem list: All Problems Biliary dyskinesia / SNOMED CT 703705692 / Confirmed Depression / SNOMED CT 49377801 / Confirmed Histories Past Medical History: No active or resolved past medical history items have been selected or recorded. Family History: Entire family history is negative. Procedure history: EGD (esophagogastroduoden oscopy) gastric outlet reduction (3164441313) on 04/29/2020 at 25 Years. section (87637904) on 07/23/2019 at 24 Years. Sinus (8420736318). Nasal cautery (194904710). Ankle (1911542). 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 Comments: 05/10/2020 8:26 EST - [employer] FORM GRADER OPERATOR, Bernarda ovarian cyst drained Social History Social & Psychosocial Habits Alcohol 04/19/2020 Use: Current Comment: Denies - 04/19/2020 06:50 - Faith Christiana TURNER Substance Abuse 04/19/2020 Use: Current Comment: Denies [...] EST Heart (more content not included)... Normal [facility] Comment on above: Result Comment: [...] All Problems Biliary dyskinesia / SNOMED CT 474120140 / Confirmed Depression / SNOMED CT 54640536 / Confirmed Physical Examination Vital Signs 05/10/2020 [...] EST Apic (more content not included)... Normal [facility] Comment on above: Result Comment: Elec tronically Signed By: Bakari Husain Jr, DO\.br\Date and Time Signed: 05/13/20 13:20 EST Coding Summary.on 05-12-2020 Coding Summary. CODING DATE: 05/12/2020 FINAL [facility] STATUS: Home (Routine DC) PAYOR: Reba [...] Jaquez CphT Date Saved: 05/12/2020 09:53 pm [facility] Consent for Anesthesiaon Consent for Anesthesia [id number]# 1.00CD:127 [facility] Discharge Instructionson Discharge Instructions [id number]# 1.00CD:127 [facility] IntraOperative Documentson 1 07-11-2019 IntraOperative Documents [id number]# 1.00CD:127 [facility] Operative Reporton 0 Operative Report Date of Surgery: 05/10/2020 SURGEON: Aiden Izquierdo MD, FACS ENDOSCOPY TECHNICIAN: Ramandeep Araujo MD, FACS PREOPERATIVE DIAGNOSIS: [...] Aiden Izquierdo MD, FACS lkr Dictated: 05/10/2020 #[id number] Typed: 05/10/2020 #[id number] cc: Alon Weber M.D. Aiden Izquierdo MD, FACS [facility] Comment on above: Result Comment: Elec tronically Signed By: Aiden IZQUIERDO MD\.br\Date and Time Signed: 05/11/20 08:04 EST Preoperative Documentson Preoperative Documents [id number]# 1.00CD:127 [facility] Preoperative Documents [id number]# 1.00CD:127 [facility] Consent for Treatmenton 04-24 Consent for Treatment [id number]#1 .00CD:127 [facility] Inpatient Patient Summaryon 05-10-2020 Inpatient Patient Summary [place] [id number] [facility] Clinical Discharge Instructions PERSON INFORMATION Name: RAJIV TOVAR [facility]#:[id number] PHYSICIANS Admitting Physician: Aiden IZQUIERDO MD Attending Physician: Aiden IZQUIERDO MD PCP: Gus POLK, Alon Discharge Diagnosis: Chronic cholecystitis with calculus Comment: PATIENT EDUCATION INFORMATION Instructions: Post Op Patient Instructions - MANFRED (CUSTOM); How to Use an Incentive Spirometer; Timbo - Post Op Instructions (CUSTOM) Medication Leaflets: Follow up: With: Address: When: Aiden IZQUIERDO [address] [place] [id number] Business (1) Within 7 to 10 days Comments: Call for any problems. Call for followup appointment Type Location Start [facility] Follow Up [facility] 05/16/2020 1:00 PM 05/16/2020 1:15 PM Confirmed MEDICATION LIST Medications to Continue with No Changes Other Medications desvenlafaxine (desvenlafaxine 100 mg Tab-) 1 Tablets By Mouth every day. omeprazole (omeprazole 40 mg Cap-DR) 1 Capsules By Mouth every day. Refills: 2. ondansetron (Zofran ODT 4 mg Tab) 1 Tablets By Mouth 3 times a day. Refills: 0. Comment: Normal [facility] IntraOperative Documentson 07-10-2019 IntraOperative Documents [id number]# 1.00CD:127 Normal [facility] Main OR PACU I Recordon 04-24 Main OR PACU I Record PACU Phase I Document Type FT Summary Primary Physician: Aiden IZQUIERDO MD Finalized Date/Time: 05/10/20 11:13:04 Pt. Name: RAJIV TOVAR/Sex: 1995 Female Med Rec #: [id number] Physician: Aiden IZQUIERDO MD Financial #: [id number] Pt. Type: A Room/Bed: Admit/Disch: 05/10/20 07:43:57 [...] By: Belkys Yarbrough RN 05/10/20 11:13 Normal [facility] Main OR PACU II Recordon Main OR PACU II Record PACU Phase II Document Type FT Summary Primary Physician: Aiden IZQUIERDO MD Finalized Date/Time: 05/10/20 15:45:07 Pt. Name: RAJIV TOVAR/Sex: 1995 Female Med Rec #: [id number] Physician: Aiden IZQUIERDO MD Financial #: [id number] Pt. Type: A Room/Bed: [facility] Admit/Disch: 05/10/20 07:43:57 - Institution: Case [...] Signed By: Marcelina Cadet RN 05/10/20 15:45 [facility] OR Preoperative Recordo n 05-10-2020 Main OR Preoperative Record PreOp Document Type FT Summary Primary Physician: Aiden IZQUIERDO MD Finalized Date/Time: 05/10/20 10:00:50 Pt. Name: RAJIV TOVAR /Sex: 1995 Female Med Rec #: [id number] Physician: Aiden IZQUIERDO MD Financial #: [id number] Pt. Type: A Room/Bed: 06/24 Admit/Disch: 05/10/20 07:43:57 - Institution: Case Times [...] By: My Callahan RN 05/10/20 10:00 Normal [facility] Monitor Recordon 05-10-2020 Monitor Record [id number]# 1.00CD:127 Normal [facility] Outpatient Surgery Discharge Instructionon 05-10-2020 Outpatient Surgery Discharge Instruction [place] [id number] Patient Discharge Instructions PERSON INFORMATION Name: RAJIV [...] THE NEAREST EMERGENCY ROOM OR CALL 911 AKHIL Coombs TAYLOR, have received the attached patient education materials/instruction s and have verbalized understanding: May we do a follow up call? Yes No I was present when discharge instructions were given Patient Signature Date Clinican/Nurse Signature Date Follow up: With: Address: When: Aiden [address], [address] [place] [address] [facility] () Within 7 to 10 days Comments: Call for any problems. Call for followup appointment Type Location [facility] Follow [facility] 05/16/2020 1:00 PM 05/16/2020 1:15 PM Confirmed Pharmacy Information: Thank you for choosing [facility] HERE ARE THE MEDICATION CHANGES [...] possible. ? If the spirometer includes a transit coach operator indicator, use this to guide you in [...] from co (more content not included)... Normal [facility] Patient Education - Texton 1 07-10-2019 Patient [...] possible. ? If the spirometer includes a transit coach operator indicator, use this to guide you in [...] 10/21/2007 Document Revised: 07/03/2018 Document Reviewed: 04/23/2018 [employer] Patient Education ? 2019 [employer]. [place], [place] Aiden Izquierdo MD, FACS POST OPERATIVE [...] or r (more content not included)... Normal [facility] Progress Note-Physicianon Progress Note-Physician Patient: RAJIV TOVAR Age: 25 years Sex: Female : 1995 Associated Diagnoses: None Author: Aiden IZQUIERDO MD Postoperative Information Date/ Time: 05/10/2020 10:26:00 Preoperative Diagnosis: Chronic cholecystitis with calculus (JUW58-PY K80.10, Working, Medical). Postoperative Diagnosis: Same pending pathology. Procedure: Laparoscopic Cholecystectomy with intraoperative chloangiogram. Performed by: Aiden Izquierdo MD. Chassis Inspector: Ramandeep Araujo MD. Specimens Removed: Gallbladder. Estimated Blood Loss: 5 ml. Complications: None. Normal [facility] Comment on above: Result Comment: Elec tronically Signed By: Aiden IZQUIERDO MD\.br\Date and Time Signed: 05/10/20 10:27 EST Progress Note-Physician Patient: RAJIV TOVAR Age: 25 years Sex: Female : 1995 Associated Diagnoses: None Author: Aiden IZQUIERDO MD Basic Information No change in History and Physical Normal [facility] Comment on above: Result Comment: [...] ALSO POSSIBLE. CLINICAL HISTORY: Cholelithiasis. COMMENT: Limited fjbqi-mh-coke C-arm images were obtained in the OR, [...] OLGA Technologist: KIRSTIN Technical Comments Radiation Dose: Evar in mGy = 3.4 Normal [facility] Coding Summary.on 05-08-2020 Coding Summary. CODING DATE: 05/07/2020 FINAL [facility] STATUS: Home (Routine DC) PAYOR: [place] ADMIT DX: REASON FOR VISIT DX: Z01.812 [...] CphT Date Saved: 05/07/2020 10:24 pm Normal [facility] Coding Summary.on 05-05-2020 Coding Summary. CODING DATE: 05/05/2020 FINAL [facility] STATUS: Home (Routine DC) PAYOR: Reba APC DESCRIPTION 5301 Level 1 Upper GI Procedures ADMIT DX: REASON FOR VISIT DX: R10.13 Epigastric pain FINAL DX: PRINCIPAL: R10.13 Epigastric pain SECONDARY: R10.11 Right upper quadrant pain F41.9 Anxiety disorder, unspecified PYMT PROC APC STAT DESCRIPTION DOCTOR NAME DATE 07035 [id number] Ezequiel WEST MD 04/29/2020 phagogastroduodenosco py, flexible, transoral; with biopsy, single or multiple 95505 Anesthesia for upper Husain Bakari Berry DO [...] Mae Revised Date Saved: 05/05/2020 11:48 am [facility] Consent for Procedure/Surger yon 05-05-2020 Consent for Procedure/Surgery [id number]#1 .00CD:127 [facility] Formson 05-05-2020 Forms [id number]#1 .00CD:127 [facility] Priority Order-Mitchell 2019 Priority Order-STAT Comment Invalid Interpretation Code [facility] Comment on above: Result Comment: Rece ived Performed at: [facility] [address] [place], [place] [id number] [facility] Johanyn Lozano Performed By: #### 2 [id number], SARS-CoV-2, MARY #### [facility] [address] [place] [address] SARS-CoV-2, NAAon 05-05-2020 SARS-CoV-2 (COVID-19) RNA MARY+probe Ql (Resp) Not detected Invalid Interpretation Code Not Detected [facility] Comment on above: Result Comment: This nucleic acid amplification test was developed and its performance characteristics determined by [employer]. Nucleic acid amplification tests include PCR and [...] detected) result in this assay. Performed at: [facility] [address] [facility] [place] [id number] MD Indira Washington Performed By: #### 2 [id number], SARS-CoV-2, MARY #### [facility] [address] [place] [address] B hCG Qualon 05-04-2020 Beta hCG Ql Negative Normal [facility] Comment on above: Performed By: #### 2 [id number] #### [facility] [address] [place] [address] CBC w/Indiceson 05-04-2020 Erythrocyte distribution width (RBC) [Ratio] 13.1 % Normal 10.9-14.2 [facility] Comment on above: Performed By: #### 2 496240, [id number] ####[address] [address] Hematocrit (Bld) [Volume fraction] 40.5 % Normal 34.0-46.0 [facility] Comment on above: Performed By: #### 2 526675, 8891979 ####[address] [address] Hemoglobin (Bld) [Mass/Vol] 14.0 g/dL Normal 12.0-16.0 [facility] Comment on above: Performed By: #### 2 774468, 0563936 ####[address] [address] MCH (RBC) [Entitic mass] 31.0 pg Normal 27.0-34.0 [facility] Comment on above: Performed By: #### 2 855210, 0706372 ####[address] [address] MCHC (RBC) [Mass/Vol] 34.6 g/dL Normal 31.4-36.0 [facility] Comment on above: Performed By: #### 2 726726, 5675464 ####[address] [address] MCV (RBC) [Entitic vol] 89.7 fL Normal 80.0-100.0 [facility] Comment on above: Performed By: #### 2 475957, 7315263 ####[address] [address] Platelet mean volume (Bld) [Entitic vol] 9.1 fL Normal 6.4-10.8 [facility] Comment on above: Performed By: #### 2 548301, 4267413 ####[address] [address] Platelets (Bld) [#/Vol] 245.0 E9/L Normal 150.0-500.0 [facility] Comment on above: Performed By: #### 2 237025, 9470127 ####[facility] [address] [place] [address] RBC (Bld) [#/Vol] 4.5 E12/L Normal 4.3-5.9 [facility] Comment on above: Performed By: #### 2 614047, 5369739 ####[address] [address] WBC corrected for nucl RBC Auto (Bld) [#/Vol] 5.6 E9/L Normal 4.0-11.0 [facility] Comment on above: Performed By: #### 2 341328, 5954919 ####[address] [address] Consent for Treatmenton 04-24 Consent for Treatment [id number] .00CD:127 Normal [facility] Hep Func Panelon 05-04-2020 Albumin [Mass/Vol] 4.2 g/dL Normal 3.3-5.0 [facility] Comment on above: Order Comment: if no t already done. Performed By: #### 2 156271, 9801609 ####[address] [address] Albumin/Globulin (S) [Mass conc ratio] 1.4 Normal 1.1-2.2 [facility] Comment on above: Order Comment: if no t already done. Performed By: #### 2 962281, 5018634 ####[facility] [address] [place] [address] ALP [Catalytic activity/Vol] 112 Int._Unit/L High 21-98 [facility] Comment on above: Order Comment: if no t already done. Performed By: #### 2 892263, 3037356 ####[place] [address] [place] [address] ALT No additional P-5'-P [Catalytic activity/Vol] 129 Int._Unit/L High 6-46 [facility] Comment on above: Order Comment: if no t already done. Performed By: #### 2 250707, 1977556 ####[facility] [address] [place] [address] AST [Catalytic activity/Vol] 28 Int._Unit/L Normal 5-43 [facility] Comment on above: Order Comment: if no t already done. Performed By: #### 2 782031, 4246351 ####[address] [address] Bilirubin [Mass/Vol] 0.7 mg/dL Normal 0.0-1.1 [facility] Comment on above: Order Comment: if no t already done. Performed By: #### 2 782785, 1458376 ####[address] [address] Bilirubin.direct [Mass/Vol] 0.1 mg/dL Normal 0.1-0.4 [facility] Comment on above: Order Comment: if no t already done. Performed By: #### 2 533951, 4798382 ####[address] [address] Bilirubin.indirect [Mass or moles/Vol] 0.6 mg/dL Normal 0.1-0.9 [facility] Comment on above: Order Comment: if no t already done. Performed By: #### 2 666051, 8929576 ####[facility] [address] [place] [address] Globulin (S) [Mass/Vol] 3.1 g/dL Normal 1.4-4.0 [facility] Comment on above: Order Comment: if no t already done. Performed By: #### 2 583587, 5835452 ####[facility] [address] [place] [address] Protein [Mass/Vol] 7.3 g/dL Normal 6.0-7.8 [facility] Comment on above: Order Comment: if no t already done. Performed By: #### 2 669457, 0959673 ####[facility] [address] [place] [address] Ambulatory Clinical Summaryo n 05-03-2020 Ambulatory Clinical Summary {[id number]}CD:[id number] [facility] Consent for Procedure/Surger yon 05-03-2020 Consent for Procedure/Surgery [id number]#1 .00CD:127 Normal [facility] Consent for Procedure/Surgery [id number]#1 .00CD:127 [facility] Formson 05-03-2020 Forms [id number] .00CD:127 [facility] Forms [id number]#1 .00CD:127 [facility] Physician Orderon 05-03-2020 Physician Order [id number]#1 .00CD:127 [facility] Physician Referralon 020 Physician Referral [id number]#1 .00CD:127 [facility] Postoperative Documentson Postoperative Documents [id number]# 1.00CD:127 [facility] Progress Note-Physicianon Progress Note-Physician Patient: RAJIV [...] TID, # 10 tab(s), Refills(s) 0, Pharmacy: [facility]/pharmacy #[id number], 168, cm, 04/19/20 6:20:00 EDT, Height/Length Dosing, 58.5, kg, 04/19/20 6:20:00 EDT, Weight Dosing omeprazole 40 mg Cap-DR: 40 mg = 1 cap(s), Oral, Daily, # 30 cap(s), Refills(s) 2, Pharmacy: [facility]/pharmacy #[id number], 168, cm, 04/20/20 10:06:00 EDT, [...] [place] - 04/19/2020 06:50 Christiana Yee RN Tobacco 04/19/2020 Tobacco Use: Never (less than 100 in l Type: Cigarettes 04/20/2020 Tobacco Use: Never (less than 100 in l . Physical Examination Airway: Mallampati classification: II (soft palate, fauces, uvula visible). Respiratory: Lungs are clear to auscultation. Cardiovascular: Regular rhythm. Neurologic: Alert, Oriented. Plan [employer] (ASA) physical status classification: Class II. Anesthetic Preoperative Plan Anesthesia: General. . Anesthetic plan, risks, benefits, and alternatives discussed with the patient and/or family. Communication: face to face with (patient 5 minutes, Patient educated on smoking cesstation). [facility] Comment on above: Result Comment: Elec [...] Last Charted Resp Rate 18 br/min (APR 29) SBP 134 mmHg (APR 29:) DBP 88 mmHg (APR 29:) SpO2 100 % (APR 29) Weight 59.5 kg (APR 29) Height 165 cm (APR 29) Documented vital [...] vomiting. Plan Transfer/ Discharge: Condition stable. Normal [facility] Comment on above: Result Comment: Elec tronically Signed By: Bakari Husain Jr, DO\.br\Date and Time Signed: 05/03/20 09:37 EST Consenton 05-02-2020 Consent [id number] .00CD:127 [facility] Discharge Instructionson Discharge Instructions [id number]#1 .00CD:127 Normal [facility] General Surgery Office/Clini c Noteon 05-02-2020 General [...] When Contact Information TIMBO POLK, Aiden Davila [address] [place], [place] [address] [address] [place] [address]- Additional Instructions: F/U POST OP. Problem List/Past [...] Family History Family history is negative Normal [facility] Comment on above: Result Comment: Elec tronically Signed By: Aiden IZQUIERDO MD\.br\Date and Time Signed: 05/02/20 15:39 EST\.br\Electronically Co-Signed By: Mildred Cook MA.br\Date and Time Co-Signed: 05/02/20 15:25 EST IntraOperative Documentson 1 07-02-2019 IntraOperative Documents [id number] .00CD:127 Normal [facility] IntraOperative Documents [id number]#1 .00CD:127 Normal [facility] Main OR Intraoperative Recor don 05-02-2020 Main OR Intraoperative Record IntraOp Document Type FT Summary Primary Physician: Ezequiel MARITNEZ MD Finalized Date/Time: 05/02/20 08:23:39 Pt. Name: AKHILRAJIV/Sex: 1995 Female Med Rec #: [id number] Physician: Ezequiel MARTINEZ MD Financial #: [id number] Pt. Type: O Room/Bed: / Admit/Disch: 04/29/20 10:12:58 - 04/29/20 23:59:59 Institution: Case Times FT Entry 1 Patient Times In Room 04/29/20 10:52:00 Out Room 04/29/20 11:04:00 Procedure Times Start 04/29/20 10:56:00 Stop 04/29/20 10:59:00 Anesthesia Times Start 04/29/20 10:52:00 Stop 04/29/20 11:04:00 Last Modified By: Russell Maloney RN 04/29/20 11:04:12 General Comments: 05/02/2020 Chart opened to review and send charges. F Dagmar HERBARIUM CURATOR. Case Attendance FT Entry 1 Entry 2 Entry 3 Case Attendee Rodrigue Berry DO, Bakari MARTINEZ MD, Ezequiel Maloney RN, Russell [place] Role Performed Anesthesiologist of Surgeon - Primary Water Supply Technician - Primary Record Time In 04/29/20 10:52:00 04/29/20 10:52:00 04/29/20 10:52:00 Time Out 04/29/20 11:04:00 04/29/20 11:04:00 04/29/20 11:04:00 Procedure EGD(.) EGD(.) EGD(.) Comments Last Modified By: Haider TURNER, Russell Maloney RN, Russell Santos RN 04/29/20 11:04:13 04/29/20 11:04:13 04/29/20 11:04:13 Entry 4 Entry 5 Entry 6 Case Attendee Mere TURNER, Charlotte Roberts CST, Molly Role Performed Water Supply Technician - Primary Scrub - Primary Staff - [...] (If Applicable) PreOp Antibiotic No Time Out Bakari Husain Jr, DO, Given Participants Ezequiel MARTINEZ MD, Souter RN, [...] Arm P (more content not included)... Normal [facility] Provider Letter FTon 05-02 Provider Letter [facility] Ezequiel Martinez M.D. [address] [place] [address] Re: RAJIV TOVAR Date of : 1995 [...] report following her procedure. Sincerely Aiden Kaplan [facility] Coding Summary.on 04-30-2020 Coding Summary. CODING DATE: 04/29/2020 FINAL [facility] STATUS: Home (Routine DC) PAYOR: Reba [...] Jaquez CphT Date Saved: 04/29/2020 11:14 pm [facility] Consent for Treatmenton Consent for Treatment [id number] .00CD:127 [facility] Endoscopic Procedure Report - Otheron 04-29-2020 [...] surgery for right upper quadrant pain/cholelithiasis Normal [facility] Comment on above: Result Comment: Elec tronically Signed By: Ezequiel MARTINEZ MD\.br\Date and Time Signed: 04/29/20 11:03 EST Other Comment: Lorri frazier Attachment - attachment storage system not supported [id number] Can be viewed in source systemMissing Attachment - attachment storage system not supported [id number] Can be viewed in source systemMissing Attachment - attachment storage system not supported [id number] Can be viewed in source systemMissing Attachment - attachment storage system not supported [id number] Can be viewed in source systemMissing Attachment - attachment storage system not supported [id number] Can be viewed in source system Inpatient Patient Summaryon 04-29-2020 Inpatient Patient Summary [place] [id number] [facility] Clinical Discharge Instructions PERSON INFORMATION Name: RAJIV TOVAR PHYSICIANS Admitting Physician: Ezequiel MARTINEZ MD Attending Physician: Ezequiel MARTINEZ MD PCP: Alon Weber MD Discharge Diagnosis: Abdominal pain Comment: PATIENT EDUCATION INFORMATION Instructions: Medication Leaflets: Follow up: With: Address: When: Aiden IZQUIERDO [address], [address] [place] [address] Business (1) With: Address: When: [facility] [address], [place] [address] Within [address] [facility] Follow [facility] 05/16/2020 1:00 PM 05/16/2020 1:15 PM [...] times a day. Refills: 0. Comment: Normal [facility] Main OR PACU I Recordon Main OR PACU I Record PACU Phase I Document Type FT Summary Primary Physician: Ezequiel MARTINEZ MD Finalized Date/Time: 04/29/20 12:13:51 Pt. Name: RAJIV TOVAR/Sex: 1995 Female Med Rec #: [id number] Physician: Ezequiel MARTINEZ MD Financial #: [id number] Pt. Type: O Room/Bed: / Admit/Disch: 04/29/20 [...] By: Belkys Yarbrough RN 04/29/20 12:13 Normal [facility] Main OR Preoperative Recordo n 04-29-2020 Main OR Preoperative Record Holding Area Document Type FT Summary Primary Physician: Ezequiel MARTINEZ MD Finalized Date/Time: 04/29/20 10:21:44 Pt. Name: RAJIV TOVAR/Sex: 1995 Female Med Rec #: [id number] Physician: Ezequiel MARTINEZ MD Financial #: [id number] Pt. Type: O Room/Bed: / Admit/Disch: 04/29/20 [...] By: Marielle Pineda RN 04/29/20 10:21 Normal [facility] Monitor Recordon 04-29-2020 Monitor Record [id number]# 1.00CD:127 Normal [facility] Outpatient Surgery Discharge Instructionon 04-29-2020 Outpatient Surgery Discharge Instruction [place] [id number] Patient Discharge Instructions PERSON INFORMATION Name: RAJIV [...] THE NEAREST EMERGENCY ROOM OR CALL 911 AKHIL Coombs TAYLOR, have received the attached patient education materials/instruction s and have verbalized understanding: May we do a follow up call? Yes No I was present when discharge instructions were given Patient Signature Date Clinican/Nurse Signature Date Follow up: With: Address: When: Aiden IZQUIERDO [address], [address] [place] [address] Business (1) With: Address: When: [facility] [address] [place] [address] Within 2 weeks Type Location [facility] Follow Up [facility] 05/16/2020 1:00 PM 05/16/2020 1:15 PM Confirmed Pharmacy Information: Thank you for choosing [facility] HERE ARE THE MEDICATION CHANGES [...] Refills: 0. PATIENT EDUCATION INFORMATION Instructions: Normal [facility] Patient Education - Texton 1 06-29-2019 Patient Education - Text Normal [facility] Priority Order-Mitchell 2019 Priority Order-STAT Comment Invalid Interpretation Code [facility] Comment on above: Result Comment: Rece ived Performed at: [facility] [address] [place], [place] [id number] MD Indira Washington Performed By: #### 2 [id number], SARS-CoV-2, MARY #### [facility] [address] [place] [address] SARS-CoV-2, NAAon 04-23-2020 SARS-CoV-2 (COVID-19) RNA MARY+probe Ql (Resp) Not detected Invalid Interpretation Code Not Detected [facility] Comment on above: Result Comment: This nucleic acid amplification test was developed and its performance characteristics determined by [employer]. Nucleic acid amplification tests include PCR and [...] detected) result in this assay. Performed at: [facility] [address] [facility] [place] [id number] MD Indira Washington Performed By: #### 2 [id number], SARS-CoV-2, MARY #### [facility] [address] [place] [address] Ambulatory Clinical Summaryo n 04-20-2020 Ambulatory Clinical Summary {[id number]}CD:[id number] Normal [facility] Coding Summary.on 04-20-2020 Coding Summary. CODING DATE: 04/20/2020 FINAL [facility] STATUS: Home (Routine DC) PAYOR: Reba [...] Revised Date Saved: 04/20/2020 07:55 am Normal [facility] Consent for Procedure/Surger yon 04-20-2020 Consent for Procedure/Surgery [id number] .00CD:127 Normal [facility] Gastroenterology Office/Clin ic Noteon 04-20-2020 Gastroenterology Office/Clinic Note Chief Complaint f/u to ER RUQ HPI Staff This is a 24 year old female who presents today for a follow up for an ED visit for RUQ pain. History of Present Illness 24 years old white female with no significant past medical history except for anxiety, referred to me from [facility] to be evaluated for right upper quadrant abdominal pain, she reports right upper quadrant abdominal pain, started 6 weeks ago, sporadic, moderate in nature except for the last time when it was severe for which she went to [facility], she had normal CBC, CMP and lipase, ultrasound revealed a 7 mm lesion in the gallbladder(nonshadow ing stones versus polyp), discharge home with Lonnie, reports no fever chills, no diarrhea, constipation [...] Daily, # 30 cap(s), Refills(s) 2, Pharmacy: [facility]/pharmacy #[id number], 168, cm, 04/20/20 10:06:00 EDT, Height/Length Dosing, 59.5, kg, 04/20/20 10:06:00 EDT, Weight Dosing EGD Endoscopy (Hospital Procedure) 2. Anxiety (F41.9: Anxiety disorder, unspecified) 3. Nausea (R11.0: Nausea) Ordered: omeprazole, 40 mg = 1 cap(s), Oral, Daily, # 30 cap(s), Refills(s) 2, [id number] 168, cm, 04/20/20 10:06:00 EDT, Height/Length Dosing, 59.5, kg, 04/20/20 10:06:00 EDT, Weight Dosing EGD Endoscopy (Hospital Procedure) Follow-up With When Contact Information Ezequiel MARTINEZ MD Within [address] [facility] [address] [facility], [place] [address]- Additional Instructions: Patient Education Abdominal Pain Abdominal [...] Family History Family history is negative Normal [facility] Comment on above: Result Comment: Elec tronically Signed By: Ezequiel MARTINEZ MD\.br\Date and Time Signed: 04/20/20 10:56 EDT Patient Educationon 10-28-20 20 Patient Education Abdominal Pain Abdominal pain [...] directed by your caregiver. ? Only take imtv-dsg-rnziaiq or prescription medicines for pain, discomfort, or [...] Document Reviewed: 01/26/2009 ExitCare? Patient Information ?2013 [employer] [facility]. [facility] Medicine Abdominal Pain Abdominal pain can be [...] directed by your caregiver. ? Only take behj-zbg-crkqqdj or prescription medicines for pain, discomfort, or [...] Document Reviewed: 01/26/2009 ExitCare? Patient Information ?2013 [employer]. Normal [facility] Physician Orderon 04-20-2020 Physician Order [id number]# 1.00CD:127 Normal [facility] Physician Order [id number]#1. 00CD:127 Normal [facility] Auto Diffon 04-19-2020 Basophils/100 WBC (Bld) 0.6 % Normal 0.0-2.0 [facility] Comment on above: Order Comment: Order Added by Discern Expert. Performed By: #### 2 [id number] #### [facility] [address] [place] [address] Basophils/Leukocytes Auto (Bld) [Pure # fraction] 0.0 E9/L Normal 0.0-0.2 [facility] Comment on above: Order Comment: Order Added by Discern Expert. Performed By: #### 2 [id number] #### [facility] [address] [place] [address] Eosinophils/100 WBC (Bld) 0.2 % Normal 0.0-8.0 [facility] Comment on above: Order Comment: Order Added by Discern Expert. Performed By: #### 2 [id number] #### [facility] [address] [place] [address] Eosinophils/Leukocyt es Auto (Bld) [Pure # fraction] 0.0 E9/L Normal 0.0-0.5 [facility] Comment on above: Order Comment: Order Added by Discern Expert. Performed By: #### 2 [id number] #### [facility] [address] [place] [address] Lymphocytes/100 WBC (Bld) 34.4 % Normal 14.0-50.0 [facility] Comment on above: Order Comment: Order Added by Discern Expert. Performed By: #### 2 [id number] #### [facility] [address] [place] [address] Lymphocytes/Leukocyt es Auto (Bld) [Pure # fraction] 2.5 E9/L Normal 1.0-4.0 [facility] Comment on above: Order Comment: Order Added by Discern Expert. Performed By: #### 2 [id number] #### [facility] [address] [place] [address] Monocytes/100 WBC (Bld) 6.1 % Normal 4.0-14.0 [facility] Comment on above: Order Comment: Order Added by Discern Expert. Performed By: #### 2 [id number] #### [facility] [address] [place] [address] Monocytes/Leukocytes Auto (Bld) [Pure # fraction] 0.4 E9/L Normal 0.2-1.0 [facility] Comment on above: Order Comment: Order Added by Discern Expert. Performed By: #### 2 [id number] #### [facility] [address] [place] [address] Neutrophils/100 WBC (Bld) 58.7 % Normal 36.0-75.0 [facility] Comment on above: Order Comment: Order Added by Discern Expert. Performed By: #### 2 [id number] #### [facility] [address] [place] [address] Neutrophils/Leukocyt es Auto (Bld) [Pure # fraction] 4.2 E9/L Normal 2.0-7.5 [facility] Comment on above: Order Comment: Order Added by Discern Expert. Performed By: #### 2 [id number] #### [facility] [address] [place] [address] BMPon 04-19-2020 Creatinine [Mass/Vol] 0.8 mg/dL Normal 0.5-1.3 [facility] Comment on above: Performed By: #### 2 [id number] #### [facility] [address] [place] [address] Urea nitrogen [Mass/Vol] 12 mg/dL Normal 5-21 [facility] Comment on above: Performed By: #### 2 [id number] #### [facility] [address] [place] [address] Urea nitrogen/Creatinine [Mass ratio] 15 No Units Normal - [facility] Comment on above: Performed By: #### 2 [id number] #### [facility] [address] [place] [address] Anion gap [Moles/Vol] 11 mmol/L Normal 6-16 [facility] Comment on above: Performed By: #### 2 [id number] #### [facility] [address] [place] [address] Calcium [Mass/Vol] 9.7 mg/dL Normal 8.9-11.1 [facility] Comment on above: Performed By: #### 2 [id number] #### [facility] [address] [place] [address] Chloride [Moles/Vol] 103 mmol/L Normal 101-111 [facility] Comment on above: Performed By: #### 2 [id number] #### [facility] [address] [place] [address] CO2 [Moles/Vol] 27 mmol/L Normal 21-31 [facility] Comment on above: Performed By: #### 2 [id number] #### [facility] [address] [place] [address] Glucose [Mass/Vol] 97 mg/dL Normal 55-199 [facility] Comment on above: Result Comment: If t his glucose result represents a fasting glucose, interpretation should refer to the following reference range: 55-99 mg/dL Performed By: #### 2 [id number] #### [facility] [address] [place] [address] Potassium [Moles/Vol] 3.5 mmol/L Normal 3.5-5.3 [facility] Comment on above: Performed By: #### 2 [id number] #### [facility] [address] [place] [address] Sodium [Moles/Vol] 137 mmol/L Normal 135-145 [facility] Comment on above: Performed By: #### 2 [id number] #### [facility] [address] [place] [address] CBC w/ Auto Diffon 0 Erythrocyte distribution width (RBC) [Ratio] 13.3 % Normal 10.9-14.2 [facility] Comment on above: Performed By: #### 2 [id number] #### [facility] [address] [place] [address] Hematocrit (Bld) [Volume fraction] 37.6 % Normal 34.0-46.0 [facility] Comment on above: Performed By: #### 2 [id number] #### [facility] [address] [place] [address] Hemoglobin (Bld) [Mass/Vol] 13.4 g/dL Normal 12.0-16.0 [facility] Comment on above: Performed By: #### 2 [id number] #### [facility] [address] [place] [address] MCH (RBC) [Entitic mass] 31.9 pg Normal 27.0-34.0 [facility] Comment on above: Performed By: #### 2 [id number] #### [facility] [address] [place] [address] MCHC (RBC) [Mass/Vol] 35.7 g/dL Normal 31.4-36.0 [facility] Comment on above: Performed By: #### 2 [id number] #### [facility] [address] [place] [address] MCV (RBC) [Entitic vol] 89.2 fL Normal 80.0-100.0 [facility] Comment on above: Performed By: #### 2 [id number] #### [facility] [address] [place] [address] Platelet mean volume (Bld) [Entitic vol] 9.4 fL Normal 6.4-10.8 [facility] Comment on above: Performed By: #### 2 [id number] #### [facility] [address] [place] [address] Platelets (Bld) [#/Vol] 219.0 E9/L Normal 150.0-500.0 [facility] Comment on above: Performed By: #### 2 [id number] #### [facility] [address] [place] [address] RBC (Bld) [#/Vol] 4.2 E12/L Low 4.3-5.9 [facility] Comment on above: Performed By: #### 2 [id number] #### [facility] [address] [place] [address] WBC corrected for nucl RBC Auto (Bld) [#/Vol] 7.2 E9/L Normal 4.0-11.0 [facility] Comment on above: Performed By: #### 2 [id number] #### [facility] [address] [place] [address] Consent for Treatmenton 03-25 Consent for Treatment [id number] .00CD:127 Normal [facility] Discharge Instructionson Discharge Instructions [id number]# 1.00CD:127 Normal [facility] ED Clinical Summaryon 2019 ED Clinical Summary [address] [address] ED Clinical Summary Person Information Name: RAJIV TOVAR/[facility] Age: 24 Years : 1995 Sex: Female Language: Swedish PCP: Alon Weber MD Marital Status: Single [...] 04/19/2020 08:58:55 04/19/2020 08:58:55 ADDRESS: [address] [facility] [id number] PHYS DOC NOTES: Addendum by Laureano Phillip DO on April 19, 2020 08:26:02 EDT MEDICAL INFORMATION: Prescriptions Given: New Medications [id number], [address], [place] [id number], [phone] dicyclomine (dicyclomine 20 mg Tab) 1 Tablets By Mouth 3 times a day for 7 Days. Refills: 0. ondansetron (Zofran ODT 4 mg Tab) 1 Tablets By Mouth 3 times a day. Refills: 0. PATIENT EDUCATION INFORMATION: Instructions: Cholelithiasis Follow up: With: Address: When: [facility], [address] [place] [address] Business (1) In 3 days 04/22/2020 DIAGNOSIS: 1:Abdominal pain; Biliary colic; Gall stone; Nausea Normal [facility] ED Note-Nursingon 04-19-2020 ED Note-Nursing Report received from Zacarias Cuevas RN. Patient resting on cart. Updated on plan of care. Denies any needs at this time. Call light in reach. Normal [facility] ED Note-Physicianon 04-19-20 ED Note-Physician Basic Information Time Seen: Susana [...] Diagnosis: Abdominal pain, cholelithiasis, biliary colic Normal [facility] Comment on above: Result Comment: [...] medicine. HOME CARE INSTRUCTIONS ? Only take sgia-dxt-dnvvvvh or prescription medicines for pain, discomfort, or [...] Document Reviewed: 12/02/2013 ExitCare? Patient Information ?2015 [employer]. This information is not intended to replace advice given to you by your health care provider. Make sure you discuss any questions you have with your health care provider. Normal [facility] ED Patient Summaryon 020 ED Patient Summary [address] [address] Patient Discharge Instructions Person Information Name: RAJIV TOVAR Age: 24 Years Arrival Date: 04/19/2020 06:10:12 Discharge Diagnosis: 1:Abdominal pain; Biliary colic; Gall stone; Nausea Primary Care Physician: Alon Weber MD Provider Information Primary Provider: Susana Belcher M.D. Advanced Steel Barrel Reamer:None The exam and treatment you received in the Emergency Department were for an urgent problem and are not intended as complete care. It is important that you follow up with a doctor, nurse practitioner, or physician?s commercial real estate assistant for ongoing care. If your symptoms become worse or you do not improve as expected and you are unable to reach your usual health care provider, you should return to the Emergency Department. We are available 24 hours a day. RAJIV TOVAR has been given the following list of patient education materials, prescriptions and follow-up instructions: Follow-up Instructions: With: Address: When: [facility], [address] [address] Business (1) In 3 days 04/22/2020 In the event that this physician does not participate in your insurance network, please consult with your insurance company to find a nearby participating provider. Patient Education Materials: Cholelithiasis A MESSAGE TO ALL PATIENTS REGARDING OPIOIDS PRESCRIPTION OPIOIDS: WHAT YOU NEED TO KNOW Prescription opioids can be used to help relieve gmaassdk-pe-goiuzw pain and are often prescribed following a [...] be struggling with addiction, tell your health home care physical therapist and ask for guidance or call [facility] National Helpline at 9-911-5 (more content not included)... Normal [facility] Hep Func Panelon 04-19-2020 Bilirubin.indirect [Mass or moles/Vol] UTC Abnormal 0.1-0.9 [facility] Comment on above: Result Comment: Resu lt verified by Discern Rule. Performed result UTC (Unable to Calculate) was sent as an Alpha code due the inability to calculate a valid numeric value. Performed By: #### 2 [id number] #### [facility] [address] [place] [address] Albumin [Mass/Vol] 4.3 g/dL Normal 3.3-5.0 [facility] Comment on above: Performed By: #### 2 [id number] #### [facility] [address] [place] [address] Albumin/Globulin (S) [Mass conc ratio] 1.5 Normal 1.1-2.2 [facility] Comment on above: Performed By: #### 2 [id number] #### [facility] [address] [place] [address] ALP [Catalytic activity/Vol] 77 Int._Unit/L Normal 21-98 [facility] Comment on above: Performed By: #### 2 [id number] #### [facility] [address] [place] [address] ALT No additional P-5'-P [Catalytic activity/Vol] 59 Int._Unit/L High 6-46 [facility] Comment on above: Performed By: #### 2 [id number] #### [facility] [address] [place] [address] AST [Catalytic activity/Vol] 36 Int._Unit/L Normal 5-43 [facility] Comment on above: Performed By: #### 2 [id number] #### [facility] [address] [place] [address] Bilirubin [Mass/Vol] 0.4 mg/dL Normal 0.0-1.1 [facility] Comment on above: Performed By: #### 2 [id number] #### [facility] [address] [place] [address] Bilirubin.direct [Mass/Vol] mg/dL Normal 0.1-0.4 [facility] Comment on above: Performed By: #### 2 [id number] #### [facility] [address] [place] [address] Globulin (S) [Mass/Vol] 2.8 g/dL Normal 1.4-4.0 [facility] Comment on above: Performed By: #### 2 [id number] #### [facility] [address] [place] [address] Protein [Mass/Vol] 7.1 g/dL Normal 6.0-7.8 [facility] Comment on above: Performed By: #### 2 [id number] #### [facility] [address] [place] [address] Lipase Levelon 04-19-2020 Lipase [Catalytic activity/Vol] 43 U/L Normal 13-58 [facility] Comment on above: Performed By: #### 2 [id number] #### [facility] [address] [place] [address] PT & PTTon 04-19-2020 aPTT Coag (PPP) [Time] 30.2 second(s) Normal 25.1-36.5 [facility] Comment on above: Result Comment: Hepa rin therapeutic range (represented by Anti-Factor Xa activity of 0.2 - 0.4 U/mL) corresponds to PTT of 56.6 - 109.0 sec. Performed By: #### 2 [id number] #### [facility] [address] [place] [address] INR Coag (PPP) [Relative time] 1.0 {INR} Invalid Interpretation Code [facility] Comment on above: Result Comment: INR results are specifically intended to assess patients stabilized on long-term Anticoagulation therapy suggested INR?s ?Less Intensive Anticoagulation? 2.0 ? 3.0 Conventional Range 3.0 ? 4.5 Performed By: #### 2 [id number] #### [facility] [address] [place] [address] PT Coag (PPP) [Time] 11.8 second(s) Normal 10.2-12.9 [facility] Comment on above: Performed By: #### 2 [id number] #### [facility] [address] [place] [address] Prescriptions/Work Noteson 1 Prescriptions/Work Notes [id number]# 1.00CD:127 Normal [facility] U BetaHcg Qualon 04-19-2020 HCG.beta subunit (U) [Moles/Vol] Negative Normal [facility] Comment on above: Performed By: #### 2 [id number] #### [facility] [address] [place] [address] UA With Cult Reflexon 2019 Bacteria LM Ql (Urine sed) TRACE Normal Trace [facility] Comment on above: Performed By: #### 2 [id number] #### [facility] [address] [place] [address] Bilirubin Ql (U) Negative Normal Negative [facility] Comment on above: Performed By: #### 2 [id number] #### [facility] [address] [place] [address] Clarity (U) CLEAR Normal Clear [facility] Comment on above: Performed By: #### 2 [id number] #### [facility] [address] [place] [address] Color (U) YELLOW Normal Yellow [facility] Comment on above: Performed By: #### 2 [id number] #### [facility] [address] [place] [address] Crystals LM Ql (Urine sed) Present Normal [facility] Comment on above: Performed By: #### 2 [id number] #### [facility] [address] [place] [address] Epithelial cells.squamous LM.HPF (Urine sed) [#/Area] 3-4 Normal 0-2 [facility] Comment on above: Performed By: #### 2 [id number] #### [facility] [address] [place] [address] Glucose Test strip (U) [Mass/Vol] Negative Normal Negative [facility] Comment on above: Performed By: #### 2 [id number] #### [facility] [address] [place] [address] Hemoglobin Ql (U) TRACE Abnormal Negative [facility] Comment on above: Performed By: #### 2 [id number] #### [facility] [address] [place] [address] Ketones (U) [Mass/Vol] Negative Normal Negative [facility] Comment on above: Performed By: #### 2 [id number] #### [facility] [address] [place] [address] [place].plasma/Lithi um.RBC (Bld) [Mass ratio] 0-3 Normal 0-3 [facility] Comment on above: Performed By: #### 2 [id number] #### [facility] [address] [place] [address] Nitrite Ql (U) Negative Normal Negative [facility] Comment on above: Performed By: #### 2 [id number] #### [facility] [address] [place] [address] pH (U) 6.5 [pH] Invalid Interpretation Code 5.0-9.0 [facility] Comment on above: Performed By: #### 2 [id number] #### [facility] [address] [place] [address] Protein (U) [Mass/Vol] Negative Normal Negative [facility] Comment on above: Performed By: #### 2 [id number] #### [facility] [address] [place] [address] Specific gravity (U) [Rel density] 1.025 Invalid Interpretation Code 1.005-1.030 [facility] Comment on above: Performed By: #### 2 [id number] #### [facility] [address] [place] [address] UA Spec Desc Clean Catch Normal [facility] Comment on above: Performed By: #### 2 [id number] #### [facility] [address] [place] [address] Urobilinogen Qn (U) 0.2 {Arnie'U}/dL Normal 0.0-1.0 [facility] Comment on above: Performed By: #### 2 [id number] #### [facility] [address] [place] [address] WBC Auto Ql (U) Negative Normal Negative [facility] Comment on above: Performed By: #### 2 [id number] #### [facility] [address] [place] [address] WBC LM.HPF (Urine sed) [#/Area] 0-5 Normal 0-5 [facility] Comment on above: Performed By: #### 2 [id number] #### [facility] [address] [place] [address] US Abdomen, Limitedon 2019 US Abdomen, Limited [...] M.D. Transcribed by: OLGA Technologist: RENETTA Kaplan [facility] eGFRon 04-19-2020 GFR/1.73 sq M.predicted among blacks MDRD (S/P/Bld) [Vol rate/Area] mL/min/{1.73_m2} Normal >=59 [facility] Comment on above: Order Comment: Order added by Discern Expert. Result Comment: eGFR is race adjusted. AA=. Performed By: #### 2 [id number] #### [facility] [address] [place] [address] GFR/1.73 sq M.predicted among non-blacks MDRD (S/P/Bld) [Vol rate/Area] mL/min/{1.73_m2} Normal >=59 [facility] Comment on above: Order Comment: Order added by Discern Expert. Result Comment: Technical Documentation Specialist bib kidney disease could be indicated at eGFR's of less than 60 mL/min/1.73m2. Kidney failure is indicated at less than 15 mL/min/1.73m2. Performed By: #### 2 [id number] #### [facility] [address] [place] [address] Encounters Encounter Date Encounter Type Care Provider Facility Start: 12-23-2023 End: 12-23-2023 ambulatory Harley Maldonado MD Facility: [facility] Start: 11-25-2023 End: 11-25-2023 ambulatory Harley Maldonado MD Facility:[facility] Start: 10-21-2023 End: 10-21-2023 ambulatory LEWIS SEWELL Not Available Start: 09-09-2023 End: 09-09-2023 ambulatory FLYNN EARLZIO Not Available Start: 08-22-2023 End: 08-22-2023 ambulatory FLYNN BLAKE Not Available Start: 08-08-2023 Bamboo flowsheet My ledesma MD Work Phone: [facility] Start: 08-08-2023 Bamboo flowsheet yM ledesma MD Work Phone: [facility] [...] [address] [place] [address] My Singh MD [address] [place], [place] [id number] [facility] Start: 08-22-2023 End: 08-22-2023 Patient encounter procedure 08/22/2023 11:50 AM EST Office Visit [facility] [address] [place] [address] Flynn Archibald, DO [address] [place] [address] [facility] Payers Date Payer Category Payer Unknown [id number] 1995 Unknown [id number] 2.16.84 [id number] 1995 Unknown [id number] 2.16.84 [id number] 1995 Unknown [id number] 2.16.84 0.1.731578.3.579.2.593 1995 Unknown [id number] 2.16.84 [id number] 1995 Unknown [id number] 2.16.84 0.1.065062.3.579.2.593 1995 Unknown [id number] 2.16.84 0.1.379019.3.579.2.1259 1993 Unknown [id number] 2.16.84 0.1.638838.3.579.2.1259 1993 Unknown [id number] 2.16.84 0.1.496670.3.579.2.1259 1995 Unknown [id number] 2.16.84 0.1.463363.3.579.2.1259 1993 Unknown [id number] 2.16. [id number] 1995 Unknown [id number] 2.16. [id number] 1961 Unknown [id number] Social History Date Type Detail [facility] Start: 1995 Sex Assigned At Not on file [facility] Start: 08-08-2023 Gender identity Not on file [facility] Start: 08-08-2023 Tobacco smoking stat [facility] Never smoked tobacco [facility] Start: 08-08-2023 Tobacco use and exposure Smokeless t obacco non-user [facility] Start: 08-08-2023 History of Social function [facility] History of Present illness Narrative [...] year (follow up) documented in this encounter [facility] Consultation note 07-18-2021 Note Date [...] to proceed. CC: Dr. Alon Weber [facility] Consultation note 07-18-2021 Note Date [...] like to proceed. CC: Dr. Alon Weber [facility] Signed and Approved by: DR AKASH MARTINEZ . 07/25/2021 08:02:00 [facility] Clinical Note 02-28-2021 Note Date & Type Note Facility 02-28-2021 Note Infectious Disease COVID-19: How to Protect Yourself and Others Know how it spreads ? There is currently no vaccine to prevent coronavirus disease 2019 (COVID-19). ? The best way to prevent illness is to avoid being exposed to this virus. ? The virus is thought to spread mainly from htujxx-lg-cubqqr. ? Between people who are in close [...] are not readily available, use a hand air export logistics manager that contains at least 60% alcohol. Cover [...] at higher risk of getting very sick.www.cdc.gov/coronavirus/2019-ncov/n xjb-oerad-xuxepcpvvzw/zrcehn-rz-atfgsx-r isk.html Cover your mouth and nose with [...] available, clean your hands with a hand air export logistics manager that contains at least 60% alcohol. Clean and disinfect ? Clean AND disinfect frequently touched surfaces daily. This includes tables, doorknobs, light switches, countertops, handles, desks, phones, keyboards, toilets, faucets, and sinks. www.cdc.gov/coronavirus/2019-ncov/preven a-roisnzi-wmhv/yzworfofmofm-gaeo-jhoc.ht ml ? If surfaces are dirty, clean them: Use detergent or soap and water prior to disinfection. ? Then, use a household disinfectant. You can see a list of [facility]-registered household disinfectants here. cdc.gov/coronavirus 12/22/2019 This information is not intended to replace advice given to you by your health care provider. Make sure you discuss any questions you have with your health care provider. Document Released: 10/06/2019 Document Revised: 12/31/2019 Document Reviewed: 12/31/2019 Elsevier Patient Education ? 2019 [employer]. COVID-19 Frequently Asked Questions COVID-19 (coronavirus disease) is an infection that is caused by a large family of viruses. Some viruses cause illness in people and others cause illness in animals like camels, cats, and bats. In some cases, the viruses that cause illness in animals can spread to humans. Where did the coronavirus come from? In May 2019, [place] told the World Health Organization (WHO) of several cases of lung disease (human respiratory illness). These cases were linked to an open seafood and livestock market in the [facility]. The link to the seafood and [...] naming World Health Organization (WHO): www.who.int/emergencies/diseases/novel-c oronavirus-2019/technical-guidance/joe moorez-qam-mviebhjxjrj (more content not included)... [facility] History and physical note 05-05-2020 Note Date & Type Note Facility 05-05-2020 Note [id number] #1.00CD:127 [facility] History and physical note 05-02-2020 Note Date & Type Note Facility 05-02-2020 Note [id number] #1.00CD:127 [facility] Evaluation note Note Date & Type Note [...] section and content) DATE CREATED AUTHOR 03/05/2021 [facility] DATE CREATED AUTHOR AUTHOR'S ORGANIZ ATION 04/10/2021 [facility] DATE CREATED AUTHOR AUTHOR'S ORGANIZ ATION 07/02/2022 [facility] pital DATE CREATED AUTHOR AUTHOR'S ORGANIZ ATION 10/21/[address] [facility] DATE CREATED AUTHOR AUTHOR'S ORGANIZ ATION 12/28/2023 [facility] Reason for Visit (unrecogniz ed section and [...] BE BASED ON THE PRIMARY CLINICAL RECORDS. [facility]. provides no warranty or guarantee of the accuracy or completeness of information in this document.
[2024-01-13 09:32] LABS: HCG Qualitative NEGATIVE (NEGATIVE); Internal Control Within Normal Limits
[2024-01-13 10:07] VITALS: BP 121/83; PULSE 86; TEMP 37.1; O2SAT 98
[2024-01-13 10:43] VITALS: BP 113/76; BP 119/77; PULSE 83; PULSE 86; O2SAT 97; O2SAT 98
[2024-01-13] MEDS: BUPIVACAINE HCL 0.25% PF 25 MG/10 ML VIAL 8 ML INJ (10:45)
[2024-01-13] MEDS: LIDOCAINE HCL 2% 400 MG/20 ML MDV INJ (10:45)
--- NOTE | 2024-01-13 10:45 | W.PM.PROCNOT ---
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 An informed consent was obtained and placed on the chart.? The patient was brought to the medical procedure unit and placed in the prone position.? A timeout was completed verifying correct patient, procedure site, positioning, plan, and special equipment.? Using aseptic technique, the needle was placed at left L4. Under direct fluoroscopic visualization a Quincke-tipped spinal needle was advanced to the junction of the superior articulating process with the transverse process at the designated medial branch segment.? Preceded by negative aspiration, the above-mentioned injectate was placed in 1 mL aliquots.? The procedure was repeated at left L5, S1.? The needle was removed and insertion site was covered. The same procedure, at the same levels, was completed on the right side. The patient was taken to the postprocedural recovery area and monitored for an appropriate length of time before found suitable for discharge in the company of a responsible adult. Anesthesia: Local Surgeon: Harley Maldonado Pathology: none sent Condition: stable Disposition: no change
== END 2024-01-13 10:48 | disposition home or self-care (01) ==
PROVIDERS: PCP Family Medicine; Visit Provider Anesthesiology
DX: M47.816 Spondylosis without myelopathy or radiculopathy, lumbar region (principal); R52 Pain, unspecified
CPT/HCPCS: 36415; 64493; 64494; 84703; J0665

== ENCOUNTER 2024-01-28 13:27 | Outpatient (OUT) | payer BC, SELFPAY ==
--- OUTSIDE RECORDS SUMMARY | 2024-01-28 13:52 | XMS_ITS | CCD ---
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 Role Phone MICHELLE, DR AKASH [...] Harley Simmons Attending Unavailable Erica POLK, Harley Simmosn Attending Unavailable Erica POLK, Harley Simmons Attending Unavailable Allergies Allergy Classification Reported Allergen(s) Allergy Type Date of Onset Reaction(s) Facility (2 sources) HYDROcodone Drug Allergy 5 [facility]ository (2 sources) oxyCODONE Drug Allergy 5 [facility] (2 sources) Penicillins Drug allergy (disorder) 5 [facility] (3 sources) Acetaminophen / HYDROcodone Drug Allergy 4 Unknown [facility] (3 sources) HYDROcodone Drug Allergy 4 Hives [facility] Work Phone: (3 sources) oxyCODONE Drug All[facility] 4 [facility] (3 sources) Penicillin G Drug Allergy 4 [facility] (3 sources) Penicillin G sodium Allergy to substance 4 [facility] (3 sources) Penicillins Drug Allergy 4 [facility] (3 sources) Sulfamethoxazole / Trimethoprim Drug Allergy 4 [facility] (3 sources) Sulfonamides (Antibiotic) Drug Allergy 4 [facility] Medications Current Medications Medication [...] daily, by mouth, 30 days 30 tablet 08/08/2023 Active Problems Active Problems Problem Classification [...] 07-18-2021 Episodic Other aftercare (1 source) 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; Translations: [OTH ALF CURRENT DRUG THERAPY] Onset: 09-05-2021 Episodic Other upper respiratory infections (1 source) Acute upper respiratory infection, unspecified; Translations: [ACUTE UP RESPIRATORY INFECTION UNS] Onset: 09-05-2021 Episodic Unclassified (1 source) COUGH, UNSPECIFIED; Translations: [COUGH, UNSPECIFIED] Onset: 09-03-2021 Results Test Name Value Interpretation Reference Range Facility Covid-19 PCR ([facility])on 08-22 SARS-CoV-2 (COVID-19) RNA MARY+probe Ql (Unsp spec) Not detected Normal NOT DETECTED [facility] Comment on above: Result Comment: This test is not yet approved or cleared by the [place] FDA. When there are no FDA-approved or cleared tests available, and other criteria are met, FDA can make tests available under an emergency access mechanism called an Emergency Use Authorization (EUA). The EUA for this test is supported by the Accounting Teacher of Health and Human Service's (HHS's) declaration [...] consistent with SARS-CoV-2. Performed By: #### C [facility] #### [facility] [address] [place] [address] Dr. Karlos Augustin GROUP A STREP CULTUREon 08-22 S. pyogenes Ag Ql (Unsp spec) Culture Observations: NEGATIVE FOR GROUP A STREPTOCOCCUS. Normal [facility] Comment on above: Performed By: #### S ДМИТРИЙ GRASTCX #### [facility] [address] [place] [address] Dr. Karlos Augustin INFLUENZA A AND B AGon 09-03 INFLUANEGH SEE BELOW Normal [facility] Comment on above: Result Comment: Nega tive for Flu A protein angiten. Infection due to Flu A cannot be ruled out. Flu A angiten in the sample may be below the detection limit of the test. Performed By: #### I NFLUAB #### [facility] [address] [place] [address] Dr. Karlos Augustin INFLUBNEGH SEE BELOW Normal [facility] Comment on above: Result Comment: Nega tive for Flu B protein antigen. Infection due to Flu B cannot be ruled out. Flu B antigen in the sample may be below the detection limit of the test. Performed By: #### I NFLUAB #### [facility] [address] [place] [address] Dr. Karlos Augustin INFLUENZA A AG Negative Normal NEGATIVE SEE COMMENT [facility] Comment on above: Performed By: #### I NFLUAB #### [facility] [address] [place] [address] Dr. Karlos Augustin INFLUENZA B AG Negative Normal NEGATIVE SEE COMMENT [facility] Comment on above: Performed By: #### I NFLUAB #### [facility] [address] [place] [address] Dr. Karlos Augustin INTERNAL CONTROLS Within Normal Limits Normal Wi thin Normal Limits [facility] Comment on above: Performed By: #### I NFLUAB #### [facility] [address] [place] [address] Dr. Karlos Augustin STREPT SCREENon 09-03-2021 STREP SCREEN A Negative Normal NEGATIVE [facility] Comment on above: Performed By: #### S ДМИТРИЙ GRASTCX #### [facility] [address] [place] [address] Dr. Karlos Augustin PREG HCG QUALon 08-01-2021 , QUAL Negative Normal NEGATIVE [facility] Comment on above: Performed By: #### P REG #### [facility] [address] [address] [address] Karlos Augustin PREG HCG QUALon 07-04-2021 , QUAL Negative Normal NEGATIVE [facility] Comment on above: Performed By: #### P REG #### [facility] [address] ABDOMEN AND PELVIS W IV C ONTUNM [facility] 04-05-2021 CT ABDOMEN AND PELVIS W IV CONTRAST [facility] Department of Radiology [address] [place] [address] Patient Name: RAJIV TOVAR : 1995 Sex: F Age: Race: White Pt. Location: [facility] Patient Status: D Ordered Date: 03/21/2021 4:00:00 PM Completed Date: 04/05/2021 03:49 PM Requesting Provider: ДМИТРИЙ CALLAHAN Attending Provider: ДМИТРИЙ CALLAHAN Report Copy To: ALON WEBER Signs & Symptoms: R10.31 Right lower quadrant pain I10 History: Josefa Is patient on meds for HTN or DM? 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 Per [employer] for [place]PT 30606 Ref#[id number] Med Nec-Passed *SLA Comments: Exam: CT ABDOMEN [...] Electronically signed: Noemy Stanley M.D.. Transcribed by: [email or web address], User Resident: Electronically Signed by: NOEMY STANLEY @ 04/07/2021 01:25 PM Normal The [facility] CHEST 2 [facility] 03-21-2021 [facility] CHEST 2 [facility] Department of Radiology [address] [place] [id number] Patient Name: RAJIV TOVAR : 1995 Sex: F Age: Race: White Pt. Location: [facility] Patient Status: D Ordered Date: 03/21/2021 2:25:00 PM Completed Date: 03/21/2021 02:22 PM Requesting Provider: ДМИТРИЙ CALLAHAN Attending Provider: Report Copy To: Signs & Symptoms: R07.81 Pleurodynia I10 History: Josefa Comments: right ribs pain Exam: [facility] CHEST 2 [facility] CHEST 2 [facility] 03/21/2021 2:22 PM CLINICAL [...] disease Electronically signed: Cyril Olivo. Transcribed by: [email or web address], User Resident: Electronically Signed by: CYRIL OLIVO @ 03/22/2021 02:[address] [facility] Comment on above: Order Comment: right ribs pain Coding Summary.on 03-03-2021 Coding Summary. CD:[id number] G h0bWw+PGhlYWQ+IJ1EQQH jY37rgBAleN3YH9mFUN2H PVOBJXJEFB1HBE5edUN7M IpjL3HtwtOw YbjkuEYjUP88CSi3WNJ1y XsxQZwocC8tlPIbQ1n6Bf GdIN82yF14QPayUCKqYdB 3LjZpbjsgbWFy K7irNrVdeTQgKix+PHRhY mxlIHdpZHRoPScxMDAlJy TsrLzgFO3jOk6oTIAvUPX vbGxhcHNlOiBj a0hmTDVtWXikYI1dzEfaL 2AzaTL2RHKtt2m6Ta00xT I+ULAbBVF8oSenGFrkp76 7MmDza9lvOQS6 yOJfFUvjLQI8K71ri2F7X NAlKGGwSSE8wIB2sB5oxK zuhlseB2MkfMBwTnX6YQK 3fANfmW9buSkr fpovnL6hJvt+A39WYU3VO TGXQQ2FKsj0H3MnOhmbdZ I+OJ66LUHeUL68cOBbqPM ay9mepOe6NiAe OZNkCHD3cEslKEtjo5RhE TMeY64gyHBfo5Z8KSXlrL onlIHmVwLvqRW7lY5rCXw epnimz6veecct Lcwbh5apdp92iT75Q86kA WixRGBhKTX9JYZcLZEscO ptfr0ayW7lXz2+KXjkn6g bw6eixFf7NuFx XBQnwqXsrYcoYQO4x1AxD k26H2DjuVjjr2WbWtg1wm 46jAXuj7M0zIJ4RGneCBZ zdV2zMLwuUxK0 SYVeMqWjqA13rJJcDKyvT u9bwUtkkNmgES2wXCCgus hnRIRqsM0dURYujAIkuIq kXS5dBDSobsux v190AoXqHBL0LLLfbLSpV 6VvvO3nXzKfEJDaEMKcE5 FtkZGyPFroQ074EAalOxV 9OUMqdpSdQ4Af LZMngIaeDuA2e4S1Ea5Oj 0LsoltqEHC9WNlfIZW4Ka CxUnXjDeP7E4MlVus2JIL elWwqAQ1iP1Pj DHMtzbscbhoidWQ0IKWdH XKkiS53kXWqXIjiVi0wm9 M9g996JRPjZCKswP59Qk2 udDogMTBwdCBU jQ1iurgly5ypkyhhUrIrS ACjHOn5PQu1QIUkfZpaDc ZkVKQ1AwQ1VSR4cRUsvQ8 roBezrfuciJ4r Oyc+Q25wsC6gBMH8OTM2k nqoUTOymnOjFU10DM80W9 RyPjwvdGFibGU+PGRpdiB vqVdxTK3tXxPg m0qlg9WoNTftD3QaPUSkI XfmJkc4ZFBlCSR6hWV3lO 1jKAGqTUszl3C6jNH5J4B ipcOqgl6kn2ws AINyQRzxN66cuKJuf1Q7M OHalEV9DCAqdJdePdHifE 93Oyc+DNAquVfjy9BvLum il7who7qhtOe6 UjJjVUTmkdTdcGrzPQT5d 1YuJl43Y69rETkcWGKtVK LxOUQrBIFoyFnnzg0mvV5 wIi8+PGNvbCB3 bPI9kL9kHPYlQkA7NAmiQ 146VhIizYFyKvpxm8vxr4 wgwKv6FbVqPWFcoyZviHs yGFA7y6QbOy77 O75gXVjeUQAhESTyTBFrX QQucWpepb0atZ7jOo5+PC 7xh1bskk43nQ50dOQ+PHR lBQO0rJfxZAfg QBFleI1fCFkgAaN5IITkJ hTffJ70cAByQAnuKj1jrK yveXhaEP5iZTBapruwg04 3EqWja1qvEAVx tVMxCBseFGA7B66wu4C1B AUtPAZxSYI8eKC9vS8jjB lnbjogbGVmdDsgdmVydGl mXJpuMCqsL184 IHRvcDsnPlBhdGllbnQgT dKnHKi7H0IsVgo8CDNumV vnPT9uoHGeVPwaQz7odKa bvAdgYL6qLLTi pgzeg105OxNbq3ubLSGnj XMsNFziYGF3R77ec3I0II GzXILgDCO1xZF1pJ5tjQz nbjogbGVmdDsg euQztKcsXPbuTPbdZ216D HRvcDsnPkJpcnRoIERhdG W5MH85CW17aRCxk6D4sYE 8Q5QnZKOgowle slnbyDR3WGCgCYIogG86P h5haBhkKx8xKWNlOAN9YQ DsyGSrH0ConA1hMhWjBLZ jFNFcA9QbcGKw AFlmO056XEjlEfD3VRQcu jJbP3OfBZPgzRipWnV2x1 Q9Cy8KP9S9IG41AR19vHL si8J2wEP1Z2Ir ZLGvauwnwayizBF4FPAtM AIgdW66Ms7tiYdtMq4nWA SvKRC1EAEcySPvK5XeoF1 yOiAjMDAwMDAw Q2HlfYCqOKygE363WLkpF eU6QZApbpHqG6GmCHYltS syIdQ9n3D0Cu7PEHm8JU9 0TT06pEImr9E0 hGE5H7HcVUQjgcycbbymv FZ8MGTnFNZfhZ56Ch5vyP epPv9uJARsCCG0BWWrsTR tF1SstW1hJhDq RSDdRCHeC7ToqSZtSYcqX 479MLkfJsN1OGJplrNuN3 MaECZmxWllXkG5p5N1Lh2 NOMPhQK89BIB8 vXG3ZR21IL30Y9TfAtiac GFibGU+PHRhYmxlIHdpZH RoPScxMDAlJyBzdHlsZT0 bKn1sBFSvQUFe qKapnOZpYpXrg6ccYNHsW EgsKN4xhGcgA4TawTT8LK Vcc3q4Gi45G40zN4MkmCC +UQEstNM2tAP8 vJ8cMcNfZtZ8UZqiZ847C iDnjAOmLczrx7suc8bszO v7BdF2FNYliyNjhYsjQOZ 1i4AyWn61M31z IHdpZHRoPSIxNSUiIHZhb Wfqzo4giL8qZc0+PGNvbC B9dTH6dB2uGhPbHqL7FBo dL722DuBnkVLt Ukmxs6lya3hkvOf1KnVuE XJdwcSozCerAHJ5o5YlTq 69C8OdzVwqa8UwZjq5wg3 7mOPkc8A8jGU9 Q8EnILPrtmvkyKIzdIvrG A7lXYWidwliGBWhbQ1jCW JvL1z7OvRnLlD4ONhfD8E ywzV3KWAyrVXf TOosMDL7P65rq3T0PWHaM RXpQNN6fOY9jO1tuFegwu ogbGVmdDsgdmVydGljYWw mBFgoO803PDMu wJoqYDAnzM9vAEUnhIHjp IjdDM0nANWsczxaCbLANZ FGNYKSQGbLB8U5T6ZpAcu 0UBHjmTavYQ1a xSUzUUoiOi5bnAizrAogD I1eYRBcbtvcRTGydQ7mCH OvvXFubQthGL0iADMlpfv tp351KaGuREW0 AKEmvBWvD9EkfQ3nNyEqU CBgFHWbL3SehLNpUAlkQ5 80WTilStF8LVOireQpN1G sLWFsaWduOiB0 z8K6Ft4sCW8uSn4kBNofF V71DC33wARnu3E7yWX2B6 FtLREjzhqkltvxyGJ5LVA nOCCrzT33yARc MOebYt0fl3C6x420LEGwE TRebS11Fq2yoWscTYDsyC FFsV2kpqrsm2ouaiyaPhD xEVRrIYr8FMy8 YXZxzYkrRbEwDSP8PnP9U QT9hORtpX7mrCilklpryN 9wOyc+DctpWEXuniT8B2D bYus0AUBwsMnd IE0dxHMwBZgmCm2emMytj CbiCO9nNGGbfizqPBIqfT 9xBBWugQMdzHhtBV0jXLV yyoumd742LeTp MLI3NFWjvTDuR5OdlS6uY hKxSIWcVERmA6XlbZKuSQ fnM407ERciLkP3UJCbqjO xM6ZiFAEobYhz DzD6q1B3Yn6QNE0axZR3T 1WbGqh0KUWriWlgHO7ndQ UgTFyzWl1wqGnmhScgNB1 wNTBpbjtwYWRk yX9jVJFhdGOhySozRL6tU ATmifcuv253VmDfMGK1AL XhtNByK1OuqY9kQlNzZGO wOEUzQ8RxzLQj EOedO281CZdqGoE9GGTfa xXbD3YfYTDpzQnaGwE1i0 Q4Dg5AiEAeO1VhZ5a9O4F kPjwvdHI+PC90 SUIaMI95wGDnoVEie7hhx Pz1DtDsURCaDOK2yVkhHC ecl9IzMREzB55qiQAhz5I 6IGNvbGxhcHNl TqKvsWZ6jP5jQIxnwlmnn 6wwlthmJrhyk6vles91vH 43Q12bAJyvCUQbIWXrZBS xUKYckGfzeb3i xB6kQu8+MUCuuWB6qHM4a U3uTjPxFkB3MFrnG370Ju NyeSBnAwevg1tfr3gobQr 9IjIwJSIgdmFs kSnyGJF0o7ZtRm20E51sR HdpZHRoPSIyMCUiIHZhbG tiqn8fuB5wJo2+PU3tq8n omd65mL92mQA+ CIZlAMF6mNhfJLivNBKos O4fYQfePyK4ZTAuHgFngA 67dUFuFYjpSe4njAxaqQb fFW1jAQMssfbs s423CjHvx9tqOLHenUTqG WhhMHG8K66lx4M1FUHtQY UgAYH4uWI0dM8viTdscoz gbGVmdDsgdmVy yPohPSzxDMiqY441SFAke RruWoKulPGxB5seijSJNF 1lOjwvdGQ+ONIjAYD5fTm zGNfrCXFniK6y KCLoK9c6VwRvDaT5RYjrV 8OlaaL2ZCBsaGCkZQHeoY DAxX8rpyocw3hnugjnWaX zKHHwDUt8AEw5 LFBipAxwEbXbZBA4DpY4T RB8xWNwqA1ghHidqlzdsA 9wOyc+RklOOjwvdGQ+PHR gVPQ7kVqrFQun PBYsjO5qLSPdS3b3KpCgG pZ0ZHhvF8StyoN5GERojH BdZMBekPPJfA0ykhqrn4n vcjogIzAwMDAw KYf8XOo2XDLiaAkaMpFaC OQ1GpE1JZD3qOWsfH8adP ixedqcjO8jPzw+TVJOOjw vdGQ+PHRkIHN0 tQmgJSslIWCycV1bCCHtO 3v7RlBdQlN7TZymF6Nmqv D0YHGvsNPzLGPhjONXdT4 wfvkww5jvwlej FyXcVZAwCIz6TTp3VZCqx JdjAmNpCBS1TrC3XZT6nK LtxF2jfCukavyyyP0hPfj +AZV0OWO4MB88 LX10C2VrUqzxuRMdwSY+P HRhYmxlIHdpZHRoPScxMD JfVmRvbVktTS0jUg3rECN yLWNvbGxhcHNl OiBj (more content not included)... Normal [facility] Auto Diffon 02-28-2021 Basophils/100 WBC (Bld) 0.4 % Normal 0.0-2.0 [facility] Comment on above: Order Comment: Order Added by Discern Expert. Performed By: #### 2 130428, 5607777, 30828296, 08555666, 50705199, 69858010, 5623065, 4632314, 2344952, 4009863 ####[address] [place] [address] Basophils/Leukocytes Auto (Bld) [Pure # fraction] 0.0 E9/L Normal 0.0-0.2 [facility] Comment on above: Order Comment: Order Added by Discern Expert. Performed By: #### 2 808939, 3368797, 38811584, 57937815, 90742620, 10429351, 5091105, 6330943, 3773462, 7384137 ####[address] [place] [address] Eosinophils/100 WBC (Bld) 0.6 % Normal 0.0-8.0 [facility] Comment on above: Order Comment: Order Added by Discern Expert. Performed By: #### 2 815196, 9523035, 96936863, 06502307, 64811317, 18301326, 9779329, 4623646, 6092788, 0559159 ####[address] [address] Eosinophils/Leukocyt es Auto (Bld) [Pure # fraction] 0.0 E9/L Normal 0.0-0.5 [facility] Comment on above: Order Comment: Order Added by Discern Expert. Performed By: #### 2 455804, 7379531, 16875187, 73512410, 10312040, 41217421, 7714849, 5352211, 2836213, 8686374 ####[address] [address] Lymphocytes/100 WBC (Bld) 7.9 % Low 14.0-50.0 [facility] Comment on above: Order Comment: Order Added by Discern Expert. Performed By: #### 2 015923, 5257248, 13497725, 70842501, 40340617, 71060177, 4019745, 8583224, 9012715, 0005086 ####[address] [place] [address] Lymphocytes/Leukocyt es Auto (Bld) [Pure # fraction] 0.4 E9/L Low 1.0-4.0 [facility] Comment on above: Order Comment: Order Added by Discern Expert. Performed By: #### 2 621884, 7443089, 25682589, 84608093, 86274471, 76593932, 0962677, 8267430, 5611421, 7583137 ####[address] [place] [address] Monocytes/100 WBC (Bld) 5.5 % Normal 4.0-14.0 [facility] Comment on above: Order Comment: Order Added by Discern Expert. Performed By: #### 2 317168, 6074300, 10930792, 74719006, 00246733, 47522225, 2925234, 0850624, 0336590, 9738962 ####[address] [address] Monocytes/Leukocytes Auto (Bld) [Pure # fraction] 0.3 E9/L Normal 0.2-1.0 [facility] Comment on above: Order Comment: Order Added by Discern Expert. Performed By: #### 2 830487, 5855234, 65839707, 37072091, 95782122, 75441750, 2173287, 8999434, 8933847, 6503126 ####[address] [place] [address] Neutrophils/100 WBC (Bld) 85.6 % High 36.0-75.0 [facility] Comment on above: Order Comment: Order Added by Discern Expert. Performed By: #### 2 645552, 2225650, 71369320, 00041427, 95067111, 88872280, 4072854, 4434687, 2749718, 5690317 ####[address] [place] [address] Neutrophils/Leukocyt es Auto (Bld) [Pure # fraction] 4.5 E9/L Normal 2.0-7.5 [facility] Comment on above: Order Comment: Order Added by Discern Expert. Performed By: #### 2 229283, 6371721, 10288992, 83100374, 48525319, 03975887, 1826249, 4323353, 0063658, 0992159 ####[facility] [address] [place] [address] B hCG Qualon 02-28-2021 Beta hCG Ql Negative Normal [facility] Comment on above: Performed By: #### 2 787170, 5081427, 91170609, 87029864, 07474915, 13669869, 9244840, 3586259, 0091085, 5712029 ####[facility] [address] [place] [address] BMPon 02-28-2021 Creatinine [Mass/Vol] 0.7 mg/dL Normal 0.5-1.3 [facility] Comment on above: Performed By: #### 2 445734, 4916372, 40206535, 06525292, 76145432, 77343260, 3527885, 0873304, 6382076, 8086721 ####[facility] [address] [place] [address] Urea nitrogen [Mass/Vol] 9 mg/dL Normal 5-21 [facility] Comment on above: Performed By: #### 2 439534, 8728242, 14761886, 42659801, 33576683, 03051450, 8607047, 8788623, 6207058, 3249339 ####[facility] [address] [place] [address] Urea nitrogen/Creatinine [Mass ratio] 13 No Units Normal 10-20 [facility] Comment on above: Performed By: #### 2 800441, 4030604, 08192717, 22933057, 08131084, 85312559, 6886528, 4042410, 3913009, 5946845 ####[facility] [address] [place] [address] Anion gap [Moles/Vol] 14 mmol/L Normal 6-16 [facility] Comment on above: Performed By: #### 2 824009, 6528939, 41443812, 89382317, 81475157, 44632433, 3405472, 1162382, 3621197, 4975104 ####[facility] [address] [place] [address] Calcium [Mass/Vol] 8.5 mg/dL Low 8.9-11.1 [facility] Comment on above: Performed By: #### 2 032353, 7823490, 08530741, 85578449, 55749075, 42113992, 7790566, 6717002, 1450223, 6241186 ####[facility] [address] [place] [address] Chloride [Moles/Vol] 102 mmol/L Normal 101-111 [facility] Comment on above: Performed By: #### 2 716092, 8137829, 88226450, 91170729, 69173946, 33829509, 1229143, 7468552, 0770477, 1873458 ####[facility] [address] [place] [address] CO2 [Moles/Vol] 21 mmol/L Normal 21-31 [facility] Comment on above: Performed By: #### 2 218364, 5879052, 64508520, 36883189, 72497551, 48556341, 1003884, 0091396, 8752610, 8862330 ####[facility] [address] [place] [address] Glucose [Mass/Vol] 95 mg/dL Normal 55-199 [facility] Comment on above: Result Comment: If t his glucose result represents a fasting glucose, interpretation should refer to the following reference range: 55-99 mg/dL Performed By: #### 2 877947, 6685272, 98814298, 56255658, 34359028, 29227141, 5665439, 5576284, 0334476, 0832601 ####[facility] [address] [place] [address] Potassium [Moles/Vol] 3.6 mmol/L Normal 3.5-5.3 [facility] Comment on above: Performed By: #### 2 211627, 9810745, 04222745, 09563201, 08217540, 36960838, 6909366, 1553154, 9242892, 0799167 ####[facility] [address] [place] [address] Sodium [Moles/Vol] 133 mmol/L Low 135-145 [facility] Comment on above: Performed By: #### 2 502153, 5066236, 59620883, 16633013, 05165726, 89892488, 5650038, 4908566, 1123344, 8323828 ####[facility] [address] [place] [address] CBC w/ Auto Diffon Erythrocyte distribution width (RBC) [Ratio] 12.4 % Normal 10.9-14.2 [facility] Comment on above: Performed By: #### 2 712774, 3045740, 93130825, 89803068, 38302789, 13597617, 5995805, 3615483, 2121099, 1099755 ####[facility] [address] [place] [address] Hematocrit (Bld) [Volume fraction] 38.1 % Normal 34.0-46.0 [facility] Comment on above: Performed By: #### 2 822770, 7824423, 89988700, 66267898, 45727818, 14358134, 8346715, 1795670, 5326724, 9007315 ####[facility] [address] [place] [address] Hemoglobin (Bld) [Mass/Vol] 13.3 g/dL Normal 12.0-16.0 [facility] Comment on above: Performed By: #### 2 318409, 4947787, 56386194, 96387768, 52964163, 47194084, 3943248, 1887877, 4429146, 3646146 ####[address] [address] MCH (RBC) [Entitic mass] 31.7 pg Normal 27.0-34.0 [facility] Comment on above: Performed By: #### 2 738310, 8084097, 19664024, 14619326, 23755240, 19539309, 6205496, 2384249, 3926515, 6583987 ####[address] [address] MCHC (RBC) [Mass/Vol] 35.0 g/dL Normal 31.4-36.0 [facility] Comment on above: Performed By: #### 2 854702, 1270179, 55972561, 44737373, 87891993, 18137323, 6713256, 9619068, 9525656, 9459006 ####[address] [address] MCV (RBC) [Entitic vol] 90.8 fL Normal 80.0-100.0 [facility] Comment on above: Performed By: #### 2 302570, 0746597, 70125501, 07561729, 29805481, 00852489, 1058752, 8946673, 4646075, 4498193 ####[address] [address] Platelet mean volume (Bld) [Entitic vol] 10.0 fL Normal 6.4-10.8 [facility] Comment on above: Performed By: #### 2 218057, 4471265, 77962118, 45098574, 57744635, 39627310, 5433161, 2427450, 5551117, 2806105 ####[address] [address] Platelets (Bld) [#/Vol] 144.0 E9/L Low 150.0-500.0 [facility] Comment on above: Performed By: #### 2 014904, 1574911, 34552548, 13673320, 99075569, 33230204, 6946537, 2180956, 7331312, 2143138 ####[facility] [address] [place] [address] RBC (Bld) [#/Vol] 4.2 E12/L Low 4.3-5.9 [facility] Comment on above: Performed By: #### 2 891735, 1655052, 57356311, 81205585, 22418083, 77241172, 9578264, 0381488, 8570383, 7733792 ####[facility] [address] [place] [address] WBC corrected for nucl RBC Auto (Bld) [#/Vol] 5.3 E9/L Normal 4.0-11.0 [facility] Comment on above: Performed By: #### 2 989534, 4871267, 91878419, 93195655, 33466034, 68942888, 6495601, 8844570, 8015970, 7337526 ####[address] [place] [address] COVID-19 ([facility])on 02-28-2021 SARS-CoV-2 (COVID-19) RNA MARY+probe Ql (Unsp spec) Not detected Normal Not Detected [facility] Comment on above: Result Comment: This test result should be correlated with clinical presentations and medical history by a healthcare provider to determine its clinical significance. This assay was performed by a reverse transcriptase real-time polymerase chain reaction (rt PCR) method on the [employer] system. This test has been authorized only [...] or revoked sooner. Performed By: #### 2 [id number] #### [facility] [address] [place] [address] SARS-CoV-2 (COVID-19) RNA MARY+probe Ql (Unsp spec) Pass Normal Pass [facility] Comment on above: Performed By: #### 2 [id number] #### [facility] [address] [place] [address] Specimen source Nom (Unsp spec) Nasal Normal [facility] Comment on above: Performed By: #### 2 [id number] #### [facility] [address] [place] [address] Employed in Healthcare NO Normal [facility] Comment on above: Performed By: #### 2 [id number] #### [facility] [address] [place] [address] First Test Unknown Normal [facility] Comment on above: Performed By: #### 2 [id number] #### [facility] [address] [place] [address] Hospitalized? NO Normal [facility] Comment on above: Performed By: #### 2 [id number] #### [facility] [address] [place] [address] ICU NO [facility] Comment on above: Performed By: #### 2 [id number] #### [facility] [address] [place] [address] ? NO Normal [facility] Comment on above: Performed By: #### 2 [id number] #### [facility] [address] [place] [address] Resides in a Congregate Care Setting NO Normal [facility] Comment on above: Performed By: #### 2 [id number] #### [facility] [address] [place] [address] Symptomatic as defined by CDC YES Normal [facility] Comment on above: Performed By: #### 2 [id number] #### [facility] [address] [place] [address] Consent for Treatmenton Consent for Treatment [id number]#1 .00CD:127 Normal [facility] D-Dimeron 02-28-2021 Fibrin D-dimer FEU (PPP) [Mass/Vol] 388 CD:[id number] Normal 215-500 [facility] Comment on above: Result Comment: This assay [...] infections Liver cirrhosis Performed By: #### 2 466833, 0873412, 00950994, 67453621, 42335382, 29346268, 1573206, 5402001, 0550224, 6583896 ####[facility] [address] [place] [address] Discharge Instructionson Discharge Instructions [id number]# 1.00CD:127 Normal [facility] ED Clinical Summaryon 2020 ED Clinical Summary [address] [address] ED Clinical Summary Person Information Name: RAJIV TOVAR/[facility] Age: 25 Years : 1995 Sex: Female Language: Ugandan PCP: Alon Weber MD Marital Status: Single [...] 02/28/2021 11:17:01 02/28/2021 11:17:01 02/28/2021 11:17:01 ADDRESS: [address] [place] [id number] [facility] DOC NOTES: MEDICAL INFORMATION: Prescriptions Given: Medications [...] Adult Follow up: With: Address: When: Alon Tatelenin [facility] [facility], [place] [address] Business (1) In 3 days DIAGNOSIS: Chest pain; Viral URI Normal [facility] ED Note-Physicianon 02-29-20 ED Note-Physician Basic Information [...] hCG Qual CBC w/ Auto Diff COVID-19 ([facility]) D-Dimer ECG 12 Lead Adult ED Cardiac [...] Information Alon Weber In 3 days [address] [facility] [place] [address]- Business (1) Additional Instructions: Patient Education COVID-19: How to Protect Yourself and Others - [facility] COVID-19 Frequently Asked Questions Upper Respiratory Infection, [...] Use, 01/30 (more content not included)... Normal [facility] Comment on above: Result Comment: Elec tronically Signed By: Laureano Phillip DO\.br\Date and Time Signed: 02/28/21 11:03 EDT ED Patient Summaryon 021 ED Patient Summary [address] [address] Patient Discharge Instructions Person Information Name: RAJIV TOVAR Age: 25 Years Arrival Date: 02/28/2021 09:10:34 Discharge Diagnosis: Chest pain; Viral URI Primary Care Physician: Alon Weber MD Provider Information Primary Provider: Laureano Phillip DO [employer] Specialist:None The exam and treatment you received in the Emergency Department were for an urgent problem and are not intended as complete care. It is important that you follow up with a doctor, nurse practitioner, or physician?s dental assistant for ongoing care. If your symptoms [...] Follow-up Instructions: With: Address: When: Alon Gus [address] [place] [address], [place] [address] Business (1) In 3 days [...] opioids can be used to help relieve kcvkbqcr-ko-mqtmxv pain and are often prescribed following a [...] be struggling with addiction, tell your health laboratory animal caretaker and ask for guidance or (more content not included)... Normal [facility] Hep Func Panelon 02-28-2021 ALP [Catalytic activity/Vol] 52 Int._Unit/L Normal 21-98 [facility] Comment on above: Performed By: #### 2 615464, 5774958, 49187056, 02214346, 36157146, 03821984, 5802379, 5459303, 0324625, 7943849 ####[facility] [address] [place] [address] Albumin [Mass/Vol] 4.2 g/dL Normal 3.3-5.0 [facility] Comment on above: Performed By: #### 2 585831, 4152149, 71077923, 94702489, 74286917, 78490566, 3163090, 4716099, 6377499, 4973129 ####[facility] [address] [place] [address] Albumin/Globulin (S) [Mass conc ratio] 1.4 Normal 1.1-2.2 [facility] Comment on above: Performed By: #### 2 086063, 4981251, 51726025, 54641259, 06414662, 25518965, 9809496, 5068160, 6413276, 4300266 ####[address] [place] [address] ALT No additional P-5'-P [Catalytic activity/Vol] 48 Int._Unit/L High 6-46 [facility] Comment on above: Performed By: #### 2 255969, 0906823, 51540992, 89475041, 38689552, 75033432, 3923473, 1616743, 9549168, 6785636 ####[address] [place] [id number] AST [Catalytic activity/Vol] 39 Int._Unit/L Normal 5-43 [facility] Comment on above: Performed By: #### 2 343471, 6405039, 48701638, 00579599, 78460202, 54928160, 6462974, 4050234, 6026592, 3747439 ####[address] [address] Bilirubin [Mass/Vol] 1.2 mg/dL High 0.0-1.1 [facility] Comment on above: Performed By: #### 2 340661, 6850283, 45666635, 35833456, 69498093, 40971391, 7435712, 4704784, 1391370, 6438445 ####[address] [place] [address] Bilirubin.direct [Mass/Vol] 0.2 mg/dL Normal 0.1-0.4 [facility] Comment on above: Performed By: #### 2 297799, 3815561, 44877240, 33492254, 08243241, 39826509, 3278464, 6531334, 4946072, 2848815 ####[address] [address] Bilirubin.indirect [Mass or moles/Vol] 1.0 mg/dL High 0.1-0.9 [facility] Comment on above: Performed By: #### 2 473428, 3728232, 01126557, 58554559, 68511746, 82682952, 2555923, 9681330, 8561916, 9606675 ####[facility] [address] [place] [address] Globulin (S) [Mass/Vol] 2.9 g/dL Normal 1.4-4.0 [facility] Comment on above: Performed By: #### 2 160159, 5711096, 25886233, 64968458, 72445213, 65842987, 7609827, 7609359, 8823347, 0209012 ####[facility] [address] [place] [address] Protein [Mass/Vol] 7.1 g/dL Normal 6.0-7.8 [facility] Comment on above: Performed By: #### 2 226558, 7045847, 19274075, 13619988, 23477953, 81674855, 6817445, 1266775, 3151368, 8131625 ####[facility] [address] [place] [address] Lipase Levelon 02-28-2021 Lipase [Catalytic activity/Vol] 33 U/L Normal 13-58 [facility] Comment on above: Performed By: #### 2 299733, 6602587, 52744624, 52796719, 40440710, 00832687, 1229192, 6605140, 6606058, 1828598 ####[facility] [address] [place] [address] PT & PTTon 02-28-2021 aPTT Coag (PPP) [Time] 31.5 second(s) Normal 25.1-36.5 [facility] Comment on above: Result Comment: Hepa rin therapeutic range (represented by Anti-Factor Xa activity of 0.2 - 0.4 U/mL) corresponds to PTT of 56.6 - 109.0 sec. Performed By: #### 2 543735, 7571386, 14971939, 76918711, 53086964, 70878486, 0864431, 0933789, 9563398, 9123896 ####[facility] [address] [place] [address] INR Coag (PPP) [Relative time] 1.1 {INR} Invalid Interpretation Code [facility] Comment on above: Result Comment: INR results are specifically intended to assess patients stabilized on long-term Anticoagulation therapy suggested INR?s ?Less Intensive Anticoagulation? 2.0 ? 3.0 Conventional Range 3.0 ? 4.5 Performed By: #### 2 747888, 3961829, 41955230, 32339406, 05406016, 87749405, 3580001, 6949884, 1091751, 1681587 ####[facility] [address] [place] [address] PT Coag (PPP) [Time] 13.1 second(s) High 10.2-12.9 [facility] Comment on above: Performed By: #### 2 413522, 6933981, 33541825, 03001643, 79204809, 56445502, 7699868, 1113501, 1711994, 8341198 ####[facility] [address] [place] [address] Prescriptions/Work Noteson 0 02-28-2021 Prescriptions/Work Notes [id number]# 1.00CD:127 Normal [facility] Troponin 0 Hr.on 02-28-2021 Troponin I.cardiac [Mass/Vol] ng/mL Low 10.10-27.10 [facility] Comment on above: Result Comment: The 95% CI (Confidence Interval) PPV (Positive Predictive Value) for myocardial infarction in females is 38 pg/mL, in males 51 pg/mL. The results should be used in conjunction with clinical conditions of myocardial infarction. (Access High Sensitivity Troponin I Instructions For Use, [place], January 2018) Performed By: #### 2 662608, 0862955, 93290270, 65658370, 69570837, 83412177, 1063229, 7206081, 2260600, 8776595 ####[facility] [address] [place] [address] XR Chest Single Viewon 02-28 XR Chest [...] MD Transcribed by: OLGA Technologist: YONG Kaplan [facility] eGFRon 02-28-2021 GFR/1.73 sq M.predicted among blacks MDRD (S/P/Bld) [Vol rate/Area] mL/min/{1.73_m2} Normal >=59 [facility] Comment on above: Order Comment: Order added by Discern Expert. Result Comment: eGFR is race adjusted. AA=. Performed By: #### 2 837914, 5093800, 60305467, 71880671, 10479236, 12338886, 7050093, 5303637, 5506136, 2678553 ####[facility] [address] [place] [address] GFR/1.73 sq M.predicted among non-blacks MDRD (S/P/Bld) [Vol rate/Area] mL/min/{1.73_m2} Normal >=59 [facility] Comment on above: Order Comment: Order added by Discern Expert. Result Comment: Senior Quality Methods Specialist bib kidney disease could be indicated at eGFR's of less than 60 mL/min/1.73m2. Kidney failure is indicated at less than 15 mL/min/1.73m2. Performed By: #### 2 415144, 7785825, 30931189, 82896158, 21569936, 25525419, 7784128, 7755743, 2417077, 4552164 ####[facility] [address] [place] [address] C Urineon 02-01-2021 Bacteria identified Cx Nom [...] R1: This test was performed at: [facility], [address] [place] [address], [address]- , , [facility] Comment on above: Performed By: #### 1 1741263, 1340635 ####[facility] [address] [place] [address] Coding Summary.on 02-01-2021 Coding Summary. [id number] G h0bWw+PGhlYWQ+XR5OOKC fF56gjHSbmI5HU8iUZC4C RESHMVVTNN7CJZ1odMS0Y RwlS1YyyiLf MttlbDVjCX49FPp3JBN3x VndMMemuY1kiWKyN0i2Gb LvJM37lP79AFmnWJFuIeE 3LjZpbjsgbWFy H8cbZeIncTGtQxd+PHRhY mxlIHdpZHRoPScxMDAlJy FkqXofOW2uUj3hKHHnTJL vbGxhcHNlOiBj y9ytWHYxKWngRS8isSygG 6AoqUY8PUTqh8k3Ot72yR I+GPOnFYI0zKqsHDlld89 8LnCvv3zlPSB0 kQEgMXdrITG8G30ig2R9M BYyDREfFCV9aIR9cI4eaS suhwmmP5MdwFLzBfM9ZZO 3gKBlfX9tgRte abumgO3fFvg+I01FCS5TN JUWJN2EVte2L8XpHswlgL I+WR28KDJoGR21kJWmtKK dw8jxfUv9KcIb AYHcRSF3jFvrOEfnw5NmT RLfB27emGBhi9O4IEAzfW cwcWOdDjLmtJD1zS2kYUe dypfce5jjlyqv Wnzzu9eayc77lV17W73vU ZolTBGcHTY0XUHgTGWuxU vriz9qbO6zWs7+VTvor3k ae6yhiHx4KnHz JISsjpElzAsjQQO5a5ZfO k43A9HusTtyj3CzHeg2xq 49lGKrh5V1wRI7RNukPOO yxD6cWZadAwQ7 TSMkKxWllL57fDUiJGgdP i7qrJbalNxvVS6zDVGogr ttORThbS8wUKJjcSWfbPi fGR7yZMZvvyyg g166TsXwDEU3RLGozWXnF 0BnuG4fVzRvJFFxDXSmH1 VoeSAdEPwkQ121NFyiVfI 1FIRtekYzQ1Dg HKZnxMbuOkW4t9O4Az1Yn 2SqwoizWPG3VLijHLP4Xm RrAmJpHsL6F4LbMrg7ZRG xpVwkOF4aA7Mw XKFqifhojwxqrUQ7PZDpQ NIvuW13sTItYRskDy5tw8 X7e001GRBmXCGzyC14Zj1 udDogMTBwdCBU lY6ojrhfd9mkfwwgLlFlF AJmAAa8OGx0GUYwiQnxCj JuRHY7JoK6OCS6oRDvnT4 jvCncefqwwD7q Oyc+U38ndX8pEQB7MTY2w czqNNKzgaUfJB66ZF27O0 RyPjwvdGFibGU+PGRpdiB ynJoiMZ1lAjKc s3txp6OgAJwyU3AqPHIiU IreFeb3XDFdZZX9cOR6hB 9sOJBgSMzpc5G2bAT8P1Z gceYkmb3eh3mw ONJvRKynP38fxMMim5B7X IToiFL5KBQmcKjdVcRtbP 93Oyc+MMYhrYdju2OaIzs hf7nam4kudNq5 CwXeFYUdtaGqpHvlTKH6f 0YlBw15E18cPMqbFNWaFW UuTEBmQAVmsDalpw4fzT9 wIi8+PGNvbCB3 mFJ9tY8tPIRkCaV6MNegT 502WtGjiNFpQaxab0dyp9 fthDh4UrByVWSvyiIdmRl rLNQ4y7KrHo34 G89dKUsjWRXcUAQiBDIoT IPpzEwzlv6jhR9mUa2+PC 7fw9qgri61oF46tRH+PHR oWON7aMctIWfw IFLgdP7xCBzmMpM1TRVfR uTjnT75iUClCKjdVh6yyA cdzLhyKZ1lZTDvwdgfd02 9XePju1qlHXGs dOEeQBdqPLD2W91sg1D4Q OFiMCKrJCR5zPN0sD0wdW lnbjogbGVmdDsgdmVydGl sOXqzZGdtN563 IHRvcDsnPlBhdGllbnQgT rLrOYn6A5ZeMby8PIPkuO dcPZ5sgQUiTPtiIm7ogMu njPrnYM6lNDBd hfjba622PxXwy3xeGSXtw WKkAJyfNHQ0Z91kh0R2YF DnRTZoYKK5vMT1pL5mzCc nbjogbGVmdDsg tqHbwCbsPDijPBxhA930X HRvcDsnPkJpcnRoIERhdG K1HI03XV51nZXzf3E3mOM 4B4RrOSXpviiv mxayxEE4QCRdQHRhvW70D h0boEidKx2dDCIvFVK5OX KeaFXuT6VllT3zOtLmKTW rFNOkG7JelQSq KUgsU440MHzfMwH1VCBou hLrY9PuMPZtjBlcDmK7r3 Y6He5PM1X0MM30BK77aMT wa7Q1aBE4V6Al TGNvmwgcfivpxKO8OZYfB MRqqG93Um3boBelEs9iFD MtLYZ4NAFagQLfP8WnpF1 yOiAjMDAwMDAw L9LgjYBbEXqtM473ZYzyD qQ8VTKkhjPkG5XeUOPieD ajElF1d7M5Yk6QYDp6EH8 3UU33rXFud3B4 uUX9C0WuUTPwvueamjxzz UN8VASgGQKirN40Qw3bnN nbXs3tXGWiFKZ8RKFazGG iZ6CaeB1oJoZn RDLoSKYpH2CckISwIVzrB 856QVpeCwN0PTZftxHaF4 AfBIUldSjoTkE7z9C2Hi6 SKDBaTC55IWJ6 xFJ0KF09HW93N2PjYaeav GFibGU+PHRhYmxlIHdpZH RoPScxMDAlJyBzdHlsZT0 lIk8fCPDdJQDt tPoenIKkSmLir8llGNJcE UphGF3vjAdwU2KwvMU2ZT Nnf0v4Vo97E93hI7DnuSZ +LIDlyER9uBK3 sU9gUzHqYfJ0LEbvE870N nUtaEBhYasbm7cqu5ojyQ m4PuJ4JBUvqrGlwVfxSXT 1d6GdWh17G68m IHdpZHRoPSIxNSUiIHZhb Ipsat8vqK3zCa7+PGNvbC C6wQG0lA7kNvWbIzT8UKi oO323MyDefIGx Alzmh4zdg6njsHl1AtSwE ASssiXfhHbaAGS2k5NjUo 09Y5ZxbMrii0XbKoe3sp4 0bTQjk1A0uBQ3 I9TmLEOdmrrmdLKmtKfkH C3rUTLfjtxlRRPcvE4sQT EiZ6w8EvYzBcR2MMksD2F qusK8TJUqtYXi OAojZWU8H31kz9L0HHQpE SXdOGP3tPV8hC4syVmuvm ogbGVmdDsgdmVydGljYWw rOCfpE684CFWi rCkpJBAtjN1yEAXzmLXbi UkfZZ2eWWZreujsOfSXVU XLLDGKMWlAW1Y7F9RhItt 3AQEeqPqgYV7y cYTmDKteKe3ycYzplMllT N9vOBHsrnczNOBayH2rQD LkqGSpbQxwJO1uBYQfuhp po445WwNeODE8 VBRfcNJtC0SjcI7cYbKrK KCnWLXlA3OheXRoWMugI0 43PFxfLrP3JRKthnWrD6B sLWFsaWduOiB0 t3A3Rr0bTI8dIz3fTCejT U32CY80nITph6G9mNB2V8 OxCQCmmrkqmhqtzNT7MWM eMHAfdJ50aANe HXwiZr3rn8C0z548MQUoY ZMiaL46Pm9zgZguZMVuiH OZxN3lfurye4gvmamgPvX kZLUfRHp8UKw7 UWCrjDhwXfWmWDS4JwH5U SQ1lTIxxN9mvAkozrdhnU 9wOyc+UiyaZNIbncU0Q2I nZks4OZXrzUlm CO3xzRYzEKvxXi7vyTumn CkrKH5bJCBryeeqSSHshC 5cZGJfwNBedZniQQ8bPGJ nynhlq294TpAc KQD2BWTfdPNvT7GdeE1jZ lMeWWLaLEEnA0QyySUxFU syD307IHvxWzK3WMXzytT jH9JtOPJgxZyv ShS0i4Q1Lg8NBM5wiVO5H 2EiHae7UYXvaDjtQW2ueI EmFQzfNy0dqToyyWxwWP4 wNTBpbjtwYWRk mN6zDEHknNZrlDwbWO8dQ ONkpfgbu649IwPiTYS3LH YbcSNdY9BpkZ9oTmQtUUG tZOHxC8TfvCIy NJvnL112LBszTmH8ADIyw wLxX2ZlGYEdgKxwSfZ4u9 W6Jv2ShDYnC9DkV3k2D9A kPjwvdHI+PC90 CXYmSH38cRJkzNDke0ymw Jy6UzRsWXKlNPW5mYhhPH zdr4PkYRAkD67hmJCzj0D 6IGNvbGxhcHNl HhIudQM1dY3jUBhpyavfb 6zfyvugSvpiv8hmmi75qM 31E78fUXvxZNVyZUTmRSB hLFRouPjoiv7t dQ0jHb6+QFAmwAF3iYE0a M0fIuUsZfE5NXjyZ860De EixNNmPxdff5yvj7dqkKc 9IjIwJSIgdmFs bFkgPKG6f2VhBa75Y02aU HdpZHRoPSIyMCUiIHZhbG bhmr6bnD1wTu4+LB5iz2u qtk14hZ85yDU+ JPUvSHZ1aLuoOCdtANHin P0oNRusGaO2VISlIjWbaK 99hCOfEZozTl2arXiwfTu aPE5wBIBgumle g668KuAsp4utMZYwoNQaG BjeNGG1V29ye9V9ZGRkPX EaNTE5tZA0cI3edIvcvqt gbGVmdDsgdmVy iZryUQtmRKyqE946KTOsa NhbRrBynYGyM6kjmdJOJF 1lOjwvdGQ+TLWlBIJ3xLn cWAxoAVYufF4p FQYoB6s5CcZtHaF5VOeuB 6FypyV4CDBtrQVfILCtyC GYvW7gxlldb0kjxztwLsM sQCQiMHt1MOn3 PFLvuVruTaZyWJN2UjI9V ET2ySXknM8gfExnswdamB 9wOyc+RklOOjwvdGQ+PHR hHFK8wXwaZYtf WIFuqO8lFNKaS7r3CuCjU jQ0LMxjO4XltnR0GODwvH VjHVXssMZWmH0roriun6y vcjogIzAwMDAw ZDt6EUh9KOKcmBucBaWmM YW6SyT8CVV0dIMfvK0ieE mjmflpsF9tHxv+TVJOOjw vdGQ+PHRkIHN0 xWcxJSlqPJYmcP5fFLCvA 4q1QnBwRpS0ZZrfM0Ayca M5KEKmxLIiOJGuyOLBbY8 ohlihk9griufl FdHxPAFrYUf3ZKh2CBMka RmlOnQcLVQ8QqI6MJE7tI ScvK4uoPxtwojzxB4sJva +MLL8YIC8DD49 OD11A4TlZfqhsADovAH+P HRhYmxlIHdpZHRoPScxMD DmVkBiaTvcLL1jSg1mTMN yLWNvbGxhcHNl OiBj (more content not included)... Normal [facility] B hCG Qualon 01-31-2021 Beta hCG Ql Negative Normal [facility] Comment on above: Performed By: #### 2 372753, 6019934, 8127755, 69376115, 7606438, 88577090, 1345712 ####[address] [place] [address] Discharge Instructionson Discharge Instructions [id number]# 1.00CD:127 Normal [facility] ED Clinical Summaryon 2020 ED Clinical Summary [address] [address] ED Clinical Summary Person Information [facility] Age[facility] 25 Years : 1995 Sex: Female Language: Ugandan PCP: Alon Weber MD Marital Status: Single [...] 01/30/2021 23:43:48 01/30/2021 23:43:48 01/30/2021 23:43:48 ADDRESS: [address] [place] [id number] PHYS DOC NOTES: MEDICAL INFORMATION: Prescriptions Given: New Medications [id number], [address], [place] [id number], [phone] cephalexin (Keflex 500 mg Cap) 1 Capsules [...] Follow up: With: Address: When: Alon Weber [address] [place] [address], [facility] [place] [address] Business (1) In 3 days 02/02/2021 DIAGNOSIS: Acute UTI Normal [facility] ED Note-Physicianon 02-01-20 ED Note-Physician CD:[id number]:[id number] 2 5RY09tOaxgeJnj7yfwc7b XF7dSpXlyiEmIImpRc2og 6lbBE45wg3xOqPkCf0+Cj fqIW5MOCaWRZIl qS2yDIBUHjwGCrOjYL5uD hDEVg2RRVAhEWbJSUjtKX 6pFWF5ppigtG2aYR7gNRP ivVJqMu5bb9x4 UqwjTt3gGn1HKt69xNHik EBfPEGWG2nwrS0fFJ2nhV ElU6TdBTVgSm9CTCx2tRj qbO9odjW3Mhd9 nPR4Ax76h1ldrsWdf0HmG zO9SNnkmCh7cRdkGTrrpC 9cGyCsFXAGbZ4tiOtbBI9 bcA4fryAklMcw biI+JdbbNNUuBzm8qRYqG N25B0PdbLunTjx2kXX0GQ FjqCIjUZAzoQf2NDVOUBT BLUNvbXBhdGli tMMiLKWuzkQkpfH6HwoMJ XUlEcFyYck3R4owZAP+Cj ujj3M2Fie4QLd5GOF6wVw cUWYny511RAYs xTbcgToqqGIvo37mKWYli KMeTcOxv959HZKekmG9NW cslIirSwj6dZPxaBUti6u jpGa1WkZsFDCk CkuGOVJoyVclo9BrYqvGH Chob9bcxrRnuKqbTMT9a2 LcOPmhTQLbGDG7BgPbMI5 +CgkJPGNvbCB2 GSnkT135WnRqoLGgt7hwh Xi8XvB2TCVxXg4QPRfeE3 8qR7RbxCA+Qqe9tWJySTa +CgkJPHRyPgoJ RBc3uOIoj0N6qQJ0RoQdt qTij9z2WNuiBMZ1HxO9FP E6nZLfdT6bsWulhxrnwX7 wOyI+CgkJCTxk pRVlU8nyh1G7VaVrz5Oml NvdacHvGHFdCyKfn2qrVt uhSFRvbH0hUWY9ZwBcLIS leHQiIGlkPSJf VeMuWHVeCdHmORWaAe79G zDzOJu0XPthEisxFAY9Vp MiYrSbFrUpkAmhWJ5jlYX kZGluZzogNHB4 OyI+LMJjSF5gU8yvt1L3B cTlx2TeiTflomQok7VkDU nmIynuwPHcVUS2yDawNVZ wf156CYezoIhh jTmmJm3fQOagwRM4yY8tQ ZDvscG4bW0vOdI3zwNovj plafK8Nn9JTNBpAnNMblV wsn2lrFvmtums z9Bcot41O8SkPK2+CgkJC VmbmKXxK5skb4L8AcCnb2 Uku20dntI3GN9xrAK9LPT aMKKzWeQmx3ia YmxlIGRkZnJlZXRleHQiI XDuAkO8gzMxn9S1aT7tf1 B2aWW1HaGeoZ5fgXeetYJ iGIQ8hFMxnBjd dIOeV9iiWPIXC2ekT37UR MSMBSFWXGYrCUm7EVjvIh QiIGlkPSJfYTMyMjFhZGU rMGVtFM91NyOi MJPsRKZhSzV0SRJaWvM8P AE2Vr79b7NoadUhbZcmYI 0jaLFgZ5ukRnMgfZXoYNt eHsCzCWGtlO8t WgJlnBH3DLWezJZnHLppK 894QRdfOnJ2SBLidE7dOn NcC0PkHPixCRdvPAg0DUK dznYaq5H5jRE6 PO6exw7vdZloTd0xnB21J RsyvER8RR9nmo7epCrrmI Z7nX6wQLQqwtI4cH0nSyV rj17zWuD+JiN4 ZPA4Qx3ueRVlkKhkrFwiY dAtSJWoVJP3KFtxKOYkDT 4bS9krPVm1S0RrAZ3+PGJ yIC8+CgkJCSYj uJCsRpzhGUh8VxyABJmOZ CUdhcCkcIRqdw9tKWDluo MpvDQ0dABcUAOhmA41EJT bNLRvGTN0VcBz AgljWKLdsnmgvKddWT5gm V6sEKImJ5p7FeZbYD3aTq vbKtH7BOloEPf4QSbbXIy tDB49EHx7IAVj RWB6SeJkLhSbUyUfg5N6g GI5AwUjh8MeKAo2DH3plh K9Gl57I8Twoz2PMYlKOQ4 kaXY+CgoJCQk8 ALs0IBQlZUIoNPSjMFRbJ 0Npt49aSYEuUMVoODVmWW RaOJSwPLrfp8TjpDRfLDB 2EQw5WQVbsqRc f1HbDdjxIpQgONhcECJ9u U6aN48iYQ4aZH3DMnDkIL DxBUJfMwJovUW4Gt18LtK 7OWI0OG26BsXb YUE9RSicHSi5Lk7iIRDwN qOtRAR4MEorSHJ9nFfpRM FcRXLwbJ4lXqS1uHn6Cc1 7c7GcgcAzaJQo bn4kZRTdXLZ0bL5xCZzjz GxheSI+QXMjLJ1ch9W8pY U2EhQgfxRue9KnP9t1GoT am3mzNgB8SXi2 HEDyL08xEIAru720LOHtA GVybGluZTsiPkNoaWVmIE LiuANbGFjwtYzqz5Ycxo7 6N8HcMO5+CgoJ BBx5IHa8UDTvTZPcSYWgG GVtcmNvbnRlbnQiIGRkOm VskxBeqeK1wEYoVVDWKOF JHUCJE00HSPSe LYOdTqLgYeZhPT7rKXF6o LS6GnPXTvDwTMh6NDLnTV FjJJWIIj5GMFLeOKUDBZR AYGF6NUWUKPFf cYJ9Du15GgAfJpcgTr9qO UKbNKRnGkBiZjnyFb9tAT e7KHRlKBgzJiUmTbdMGLn 1JWg1RVTuQUPj PSJkZGVtcmNvbnRlbnRpd XBdJDBesfDnm7BtBcjmSy MaESnhc777SU00rWilES7 yALFAO5MEPG8J RUFTIiBkZDplbnRpdHlpZ L2xLOu3NND5CMAqFbXkeR V3Sb4sYVYwSmmmEe9yZAD hLTRkMWMtYjNl Wk03MQB6DFc4YKF1CvfuX GakqC4rUtDsAZDYeP4nzT eaHY3neU6lziRxvLsplyX +cHQgYXJyaXZl fcKgo9QwszvbgZFlt5kyW OWvJKLcMHBjyR2vpYwglU QbhPAvcIEroR0qjNnoJIC oXB9sRZXmGN4y V29aoaQ6hhD9eCAnmzloq AIvHCC7BUfpYLWccDvtMZ FdRCWbITPiquFfo8MfNSi kYM0mIAodahYh xAHwEgTaaiYneI7wISU5y 8XmWrpxTFi4MxaCHMf8K4 Aglk8UVXqTPI5lkRW+Cgo IFOp0TMc0BRXm IRLwHRZrDLClZ5Olz20qG GRyZWZyZXNoYWJsZSBkZG dwh9NalNSdRMZ7YNw7SST bphRkq7NjPfiu UyRsCRdeWHY4dJ8zZ45cT Y0kJR6UVhOnMOVxBcVzNu KlhZI8Tv4yP9XqKUO0DV3 zCwDdLMH2FvGm WFh4Nn8zTKE1OsI8QSvqL LRmXGC3cWmsGCPsYUSujL 0iJiE6gTb7Wi54g2YzcxN hiQAjwm4bDHZb OCT3yA1uDWbfvQixvTB+P FWnFE2eo5J0bPQ0SlIsun Nir8XfF4z8BpAlk7xcUrM 7NFw2NRWaN10x DPCvf377HGRnIZGzdLrlI VrgQwuwv6Dlfkuyn2ZuZL Gju5LjkUSVrRrkBVOtAR6 wkPLmCugzr9Wo fc0HDlgKRNafdPXxF0gwb 6Z6TgPxWV5dF44irFGpwR KxHVQ2W82wF8WpnN5yVBV AQuLeJTymx173 GU98hWhtGX5zWW0JW8JBA LRcGMJtLoBtMyCfTQ7fPS F0kCW6ApFqRrUkAwI1YEY 9UAUaQXLIUs42 RwaTOGHWYfB5Q1G2F9F0F HCjrRG6Sj6hMBV2MhcnCJ 44CSRsTZDfDGRmIWHoAK6 7AMQmHXR5NXQ7 NPblCimADIt5CIx2UWYrO XNzPSJkZGVtcmNvbnRlbn ImfOInToYnKLqnw689BQ7 8tRgcPQ1dMAVY Q4MZUC6UWEPLEfFjEWhkr uAwuCvgJE6wURSiJXP5MC 71rJO3fwGsd4dria0aGET baIO4Ex52QNYx OlabHL1yNfzjBEZ5GIaiZ YS2Ly60CQT6HNIyTGCsIH GjKgcLDBs8RLs4MQHnWGA zPSJkZGNvbXBv oyQwgAWuSKU2VA34jAN0q MP5nDG4mDK5ErVlv4GmgG ClqNDhzDM6Ps95T7Q6Dhm uZC0tM3PwVPCx UuzlDhR4Xg15AYMwCbBsW ZC9R7RtGtcCZCb3UEk3QI DvHMYfAIZdSNRsPZI5JPo 8WMRsejLgz2Ug FkvwRwAlRGuxfI0gbD6zj ZuxH2K9gRqzSSB5q5Wmka lnaHQiIGlkPSJfMjlkMjM 4ORDwYKXtJB22 Nja3WJLeFzPxNSb2OHd1Q tY7PfW5Xy4UYIvvv2EbO1 zhLlYbyMGsXJYdMmF8RCA vIA4zJSEdFE0u wEGoo9y2yJWTCTyws7Jif 3KfqjfdakGwcHN1suXrtx RmTY04eyP7hOHkOSViwCT yafOprUT5w1D8 PJ6iUCkqhZWlrOa4sBZoy JFcdQYlS1OrGL0wW6BpBD 6naY7myOVcKOznIEMwMVA qB1DgMBPeJZ0t JVZqtY5weI0rCZOoWCSof sT7lFLfuCSunTonVKPkW1 JpYmVkIGFzIHNoYXJwLCB gsoAmw4AoEMWw p07mpAc8YVSxSLvsyUGqN ULxIKnyx5erQNKhZZE3RY ovPfcgPH6pJMcfi9ZdFPT hK3iaSLJ5zwQt bnRseSByYXRlZCBhdCBhI RncKARfCK0gVBtihhU8k2 orsoLpPFYlyFGruS7fbMe bSMSuu9RmBMPg qE2rx7A7OI0kPJRsg4OkU CWlWRD7rXGhPM7rjv6gLR DsvPEwKWG5b4HijQFyNQ8 gSAEkQLE6QY2b aIvhLzB3VXQtQZ3zq8XgP SbfaSB8kBAjGD1wKNJgBE 2az9C7cGS3LcCuCYYjxai xxF3wWbQcrIn0 QHJpDZIpqgbgBu07bT2sG aSyyBl0HC0evuvokg97n8 H6BPKfoFsvrJSvK1beNZJ vdHRvbTogMHB4 OyI+Db9puEgssF4slJQhJ lYgzKAbFDmhl6GvjfFeLc bdu3Dlkd7pF7enSRp3r0I qivGnkZqqVV2h xINrMMmsWt10h6A7XREzj GorrAJwQUihXe0zy9Q1d0 21RSYmqIossIZuH6eqMUX jgDwsCGS4CiRc Y (more content not included)... Normal [facility] Comment on above: Result Comment: Elec tronically [...] this condition includes: ? Antibiotic medicine. ? Eyqa-jhs-cqngatv medicines to treat discomfort. ? Drinking enough [...] these instructions at home: Medicines ? Take ixtf-qyj-zqaxsct and prescription medicines only as told by [...] This in (more content not included)... Normal [facility] ED Patient Summaryon 021 ED Patient Summary [address] [address] Patient Discharge Instructions Person Information Name: RAJIV TOVAR Age: 25 Years Arrival Date: 01/30/2021 20:17:08 Discharge Diagnosis: Acute UTI Primary Care Physician: Alon Weber MD Provider Information Primary Provider: Joshua Hollingsworth DO [facility] Specialist:None The exam and treatment you received in the Emergency Department were for an urgent problem and are not intended as complete care. It is important that you follow up with a doctor, nurse practitioner, or physician?s dental assistant for ongoing care. If your symptoms [...] Follow-up Instructions: With: Address: When: Alon Weber [facility], [address] [place] [id number] [facility] (1) In 3 days 02/02/2021 In the event that this physician does not participate in your insurance network, please consult with your insurance company to find a nearby participating provider. Patient Education Materials: Urinary Tract Infection, Adult A MESSAGE TO ALL PATIENTS REGARDING OPIOIDS PRESCRIPTION OPIOIDS: WHAT YOU NEED TO KNOW Prescription opioids can be used to help relieve zflehskc-ri-lbnwwu pain and are often prescribed following a [...] be struggling with addiction, tell your health laboratory animal caretaker and ask for guidance or call [employer]?S National Helpline at 4-696-864-HELP. v Source: [place] Department of Health a (more content not included)... Normal [facility] [place] [facility] Cult Reflexon 2020 Bacteria LM Ql (Urine sed) 1+ /HPF Abnormal Trace [facility] Comment on above: Performed By: #### 1 [id number], 5008239 ####[facility] [address] [place] 0870757 Bilirubin Ql (U) Negative Normal Negative [facility] Comment on above: Performed By: #### 1 [id number], 7148903 ####[facility] [address] [place] [address] Clarity (U) CLOUDY Abnormal Clear [facility] Comment on above: Performed By: #### 1 3079131, 5409619 ####[facility] [address] [place] [address] Color (U) YELLOW Normal Yellow [facility] Comment on above: Performed By: #### 1 6603379, 1164649 ####[facility] [address] [place] [address] Crystals LM Ql (Urine sed) Present Normal [facility] Comment on above: Performed By: #### 1 0318902, 7819457 ####[address] [address] Epithelial cells.squamous LM.HPF (Urine sed) [#/Area] 0-2 Normal 0-2 [facility] Comment on above: Performed By: #### 1 0018791, 3998454 ####[facility] [address] [place] [address] Glucose Test strip (U) [Mass/Vol] Negative Normal Negative [facility] Comment on above: Performed By: #### 1 0662702, 4588703 ####[facility] [address] [place] [address] Hemoglobin Ql (U) TRACE Abnormal Negative [facility] Comment on above: Performed By: #### 1 4928583, 1973698 ####[facility] [address] [place] [address] Ketones (U) [Mass/Vol] Negative Normal Negative [facility] Comment on above: Performed By: #### 1 6408584, 1702218 ####[facility] [address] [place] [address] [place].plasma/Lithi um.RBC (Bld) [Mass ratio] 0-3 Normal 0-3 [facility] Comment on above: Performed By: #### 1 4060039, 9761023 ####[facility] [address] [place] [address] Mucus Ql (Urine sed) TRACE Normal [facility] Comment on above: Performed By: #### 1 5025637, 7454969 ####[address] [address] Nitrite Ql (U) Positive Abnormal Negative [facility] Comment on above: Performed By: #### 1 8032299, 0503562 ####[address] [address] pH (U) 7.5 [pH] Invalid Interpretation Code 5.0-9.0 [facility] Comment on above: Performed By: #### 1 5487300, 9208734 ####[address] [address] Protein (U) [Mass/Vol] Negative Normal Negative [facility] Comment on above: Performed By: #### 1 2778841, 2500332 ####[address] [address] Specific gravity (U) [Rel density] 1.020 Invalid Interpretation Code 1.005-1.030 [facility] Comment on above: Performed By: #### 1 4339995, 2059799 ####[address] [address] Type of Urine collection method Clean Catch Normal [facility] Comment on above: Performed By: #### 1 9969591, 0441309 ####[address] [address] Urobilinogen Qn (U) 0.2 {Arnie'U}/dL Normal 0.0-1.0 [facility] Comment on above: Performed By: #### 1 6317596, 5899443 ####[address] [address] WBC Auto Ql (U) 1+ Abnormal Negative [facility] Comment on above: Performed By: #### 1 1215032, 2574996 ####[facility] [address] [place] [address] WBC LM.HPF (Urine sed) [#/Area] 6-15 Abnormal 0-5 [facility] Comment on above: Performed By: #### 1 4977882, 0219309 ####[facility] [address] [place] [address] Auto Diffon 01-30-2021 Basophils/100 WBC (Bld) 0.4 % Normal 0.0-2.0 [facility] Comment on above: Order Comment: Order Added by Discern Expert. Performed By: #### 2 814284, 3517145, 8296983, 89101254, 7087677, 78073917, 2387848 ####[address] [address] Basophils/Leukocytes Auto (Bld) [Pure # fraction] 0.0 E9/L Normal 0.0-0.2 [facility] Comment on above: Order Comment: Order Added by Discern Expert. Performed By: #### 2 571418, 8510372, 0814817, 43156300, 1918489, 29238490, 7562773 ####[address] [address] Eosinophils/100 WBC (Bld) 1.4 % Normal 0.0-8.0 [facility] Comment on above: Order Comment: Order Added by Discern Expert. Performed By: #### 2 677421, 9634090, 0335290, 63182388, 4236172, 84024227, 1064247 ####[place] [address] [place] [address] Eosinophils/Leukocyt es Auto (Bld) [Pure # fraction] 0.1 E9/L Normal 0.0-0.5 [facility] Comment on above: Order Comment: Order Added by Discern Expert. Performed By: #### 2 423224, 1195995, 8709142, 23343410, 3714612, 68403114, 4389341 ####[address] [address] Lymphocytes/100 WBC (Bld) 23.7 % Normal 14.0-50.0 [facility] Comment on above: Order Comment: Order Added by Discern Expert. Performed By: #### 2 240079, 4641513, 2463450, 38431728, 3188692, 13202756, 9358655 ####[facility] [address] [place] [address] Lymphocytes/Leukocyt es Auto (Bld) [Pure # fraction] 1.9 E9/L Normal 1.0-4.0 [facility] Comment on above: Order Comment: Order Added by Yifan Expert. Performed By: #### 2 721875, 5173183, 3352003, 31003733, 8676980, 49362237, 5658784 ####[place] [address] [place] [address] Monocytes/100 WBC (Bld) 6.2 % Normal 4.0-14.0 [facility] Comment on above: Order Comment: Order Added by Yifan Expert. Performed By: #### 2 403678, 3005521, 2842892, 21895239, 3656359, 21839509, 8144278 ####[facility] [address] [place] [address] Monocytes/Leukocytes Auto (Bld) [Pure # fraction] 0.5 E9/L Normal 0.2-1.0 [facility] Comment on above: Order Comment: Order Added by Discern Expert. Performed By: #### 2 645859, 0563449, 0292631, 88958259, 1269077, 60534755, 9476069 ####[facility] [address] [place] [address] Neutrophils/100 WBC (Bld) 68.3 % Normal 36.0-75.0 [facility] Comment on above: Order Comment: Order Added by Yifan Expert. Performed By: #### 2 235444, 1092248, 8790603, 71952748, 5258429, 21192302, 8256596 ####[facility] [address] [place] [address] Neutrophils/Leukocyt es Auto (Bld) [Pure # fraction] 5.6 E9/L Normal 2.0-7.5 [facility] Comment on above: Order Comment: Order Added by Discern Expert. Performed By: #### 2 849944, 1465325, 7242258, 47140983, 3266583, 43092670, 2040891 ####[facility] [address] [place] [address] BMPon 01-30-2021 Calcium [Mass/Vol] 9.0 mg/dL Normal 8.9-11.1 [facility] Comment on above: Performed By: #### 2 848471, 0025548, 1550387, 75565258, 9204704, 80796674, 1355108 ####[facility] [address] [place] [address] Creatinine [Mass/Vol] 0.7 mg/dL Normal 0.5-1.3 [facility] Comment on above: Performed By: #### 2 509846, 4045849, 3272053, 29320895, 4296062, 19832315, 5458221 ####[facility] [address] [place] [address] Urea nitrogen [Mass/Vol] 10 mg/dL Normal 5-21 [facility] Comment on above: Performed By: #### 2 696132, 2446273, 3219222, 13659636, 3273328, 00926294, 9037915 ####[facility] [address] [place] [address] Urea nitrogen/Creatinine [Mass ratio] 14 No Units Normal 10-20 [facility] Comment on above: Performed By: #### 2 805234, 0227019, 1133536, 83532665, 7396786, 56649406, 5021361 ####[facility] [address] [place] [address] Anion gap [Moles/Vol] 12 mmol/L Normal 6-16 [facility] Comment on above: Performed By: #### 2 594899, 3424818, 7768681, 18873915, 3515199, 44100638, 9586668 ####[facility] [address] [place] [address] Chloride [Moles/Vol] 104 mmol/L Normal 101-111 [facility] Comment on above: Performed By: #### 2 870594, 8644167, 9065537, 12579682, 6747885, 85558416, 3251534 ####[facility] [address] [place] [address] CO2 [Moles/Vol] 25 mmol/L Normal 21-31 [facility] Comment on above: Performed By: #### 2 562163, 6436212, 4147539, 24843466, 9920061, 78095712, 7016116 ####[facility] [address] [place] [address] Glucose [Mass/Vol] 93 mg/dL Normal 55-199 [facility] Comment on above: Result Comment: If t his glucose result represents a fasting glucose, interpretation should refer to the following reference range: 55-99 mg/dL Performed By: #### 2 523464, 5551767, 6139718, 88850855, 9969583, 32331072, 8605579 ####[facility] [address] [place] [address] Potassium [Moles/Vol] 3.8 mmol/L Normal 3.5-5.3 [facility] Comment on above: Performed By: #### 2 538868, 7398888, 3570619, 76256152, 4689555, 58916871, 0279601 ####[facility] [address] [place] [address] Sodium [Moles/Vol] 137 mmol/L Normal 135-145 [facility] Comment on above: Performed By: #### 2 465938, 5862258, 2199482, 77826517, 5488752, 87248397, 9407501 ####[facility] [address] [place] [address] CBC w/ Auto Diffon 08-09-202 1 Erythrocyte distribution width (RBC) [Ratio] 12.2 % Normal 10.9-14.2 [facility] Comment on above: Performed By: #### 2 147449, 5188160, 9055577, 63945540, 0550568, 70823736, 0104545 ####[facility] [address] [place] [address] Hematocrit (Bld) [Volume fraction] 39.3 % Normal 34.0-46.0 [facility] Comment on above: Performed By: #### 2 267154, 0370439, 5589686, 27575783, 3030648, 01328178, 1570002 ####[place] [address] [place] [address] Hemoglobin (Bld) [Mass/Vol] 13.3 g/dL Normal 12.0-16.0 [facility] Comment on above: Performed By: #### 2 961040, 0919279, 5968025, 50658636, 7975671, 92373910, 5704410 ####[place] [place] [place] [address] MCH (RBC) [Entitic mass] 31.3 pg Normal 27.0-34.0 [facility] Comment on above: Performed By: #### 2 082940, 9360604, 4851098, 11715440, 4108890, 97344595, 9973046 ####[address] [address] MCHC (RBC) [Mass/Vol] 34.0 g/dL Normal 31.4-36.0 [facility] Comment on above: Performed By: #### 2 341499, 0060973, 2967373, 11918305, 9163303, 87760560, 0204415 ####[facility] [address] [place] [address] MCV (RBC) [Entitic vol] 92.1 fL Normal 80.0-100.0 [facility] Comment on above: Performed By: #### 2 659040, 5973443, 2463616, 59184491, 2488340, 49415819, 7655911 ####[facility] [address] [place] [address] Platelet mean volume (Bld) [Entitic vol] 9.2 fL Normal 6.4-10.8 [facility] Comment on above: Performed By: #### 2 329630, 2245226, 6253355, 79986040, 0718516, 12201497, 6867642 ####[facility] [address] [place] [address] Platelets (Bld) [#/Vol] 214.0 E9/L Normal 150.0-500.0 [facility] Comment on above: Performed By: #### 2 019135, 6178563, 4254373, 26010715, 3726740, 00087465, 9309238 ####[facility] [address] [place] [address] RBC (Bld) [#/Vol] 4.3 E12/L Normal 4.3-5.9 [facility] Comment on above: Performed By: #### 2 291503, 3410181, 6832903, 25346853, 7859638, 09956558, 5618769 ####[facility] [address] [place] [address] WBC corrected for nucl RBC Auto (Bld) [#/Vol] 8.2 E9/L Normal 4.0-11.0 [facility] Comment on above: Performed By: #### 2 925979, 6912802, 4579836, 94243406, 2793403, 67724945, 7149273 ####[place] [place] [place] [address] Consent for Treatmenton Consent for Treatment [id number] .[id number]:127 Normal [facility] Hep Func Panelon 01-30-2021 Albumin [Mass/Vol] 4.0 g/dL Normal 3.3-5.0 [facility] Comment on above: Performed By: #### 2 764090, 3658955, 3787978, 35648043, 0066453, 04014400, 3563379 #### [facility] Laboratory [address] [place] [address] Albumin/Globulin (S) [Mass conc ratio] 1.5 Normal 1.1-2.2 [facility] Comment on above: Performed By: #### 2 902478, 9616158, 9605101, 77493965, 5314656, 28210389, 0920531 #### [facility] [address] [place] [address] ALP [Catalytic activity/Vol] 44 Int._Unit/L Normal 21-98 [facility] Comment on above: Performed By: #### 2 840177, 8587090, 8645794, 97303165, 7935183, 60352963, 4760454 #### [facility] [address] [place] [address] ALT No additional P-5'-P [Catalytic activity/Vol] 20 Int._Unit/L Normal 6-46 [facility] Comment on above: Performed By: #### 2 164551, 8470623, 6296366, 89433147, 6095094, 24414774, 3325588 #### [facility] [address] [place] [address] AST [Catalytic activity/Vol] 16 Int._Unit/L Normal 5-43 [facility] Comment on above: Performed By: #### 2 365095, 0544874, 2077478, 73000826, 2622764, 42258734, 4387093 #### [facility] [address] [place] [address] Bilirubin [Mass/Vol] 1.1 mg/dL Normal 0.0-1.1 [facility] Comment on above: Performed By: #### 2 761129, 5036778, 8382516, 82374805, 4451407, 90525889, 3918822 #### [facility] [address] [place] [address] Bilirubin.direct [Mass/Vol] 0.2 mg/dL Normal 0.1-0.4 [facility] Comment on above: Performed By: #### 2 774272, 1131504, 1306691, 34783852, 3347874, 05904187, 2685876 #### [facility] [address] [place] [address] Bilirubin.indirect [Mass or moles/Vol] 0.9 mg/dL Normal 0.1-0.9 [facility] Comment on above: Performed By: #### 2 127390, 4033222, 8338192, 07091415, 3891940, 98661939, 4898700 #### [facility] [address] [place] [address] Globulin (S) [Mass/Vol] 2.6 g/dL Normal 1.4-4.0 [facility] Comment on above: Performed By: #### 2 792147, 0102615, 3292291, 16042784, 3061744, 70553257, 2317107 #### [facility] [address] [place] [address] Protein [Mass/Vol] 6.6 g/dL Normal 6.0-7.8 [facility] Comment on above: Performed By: #### 2 315454, 8983246, 8081211, 14986006, 0778315, 96769230, 5437277 #### [facility] [address] [place] [address] Lipase Levelon 01-30-2021 Lipase [Catalytic activity/Vol] 32 U/L Normal 13-58 [facility] Comment on above: Performed By: #### 2 747899, 6601750, 1894106, 38423067, 8821110, 39474490, 6877827 #### [facility] [address] [place] [address] eGFRon 01-30-2021 GFR/1.73 sq M.predicted among blacks MDRD (S/P/Bld) [Vol rate/Area] mL/min/{1.73_m2} Normal >=59 [facility] Comment on above: Order Comment: Order added by Discern Expert. Result Comment: eGFR is race adjusted. AA=. Performed By: #### 2 521748, 2188256, 7449541, 36514922, 1079885, 13950249, 6100148 #### [facility] [address] [place] [address] GFR/1.73 sq M.predicted among non-blacks MDRD (S/P/Bld) [Vol rate/Area] mL/min/{1.73_m2} Normal >=59 [facility] Comment on above: Order Comment: Order added by Discern Expert. Result Comment: Senior Quality Methods Specialist bib kidney disease could be indicated at eGFR's of less than 60 mL/min/1.73m2. Kidney failure is indicated at less than 15 mL/min/1.73m2. Performed By: #### 2 939808, 9048447, 8799403, 86368429, 7842064, 04478520, 1579475 #### [facility] [address] [place] [address] Provider Letteron 06-03-2020 Provider Letter June 03, 2020 To Whom It May Concern, Rajiv has been under my care and had a lap choly on 05/10/2020. She was seen post operatively on 05/23/2020 and was healing well. Rajiv is released to work on 06/06/2020 with no restrictions. Please call the office at [phone] with any questions/ concerns. Sincerely, Dr. Aiden Izquierdo faxed to [facility] to [phone] Normal [facility] Ambulatory Clinical Summaryo n 05-23-2020 Ambulatory Clinical Summary {[id number]}CD:[id number] Normal [facility] General Surgery Office/Clini c Noteon 05-23-2020 General [...] Aiden IZQUIERDO MD Only if needed [address] [place] [id number]- Additional Instructions: F/U PRN Problem List/Past Medical [...] 04/19/2020 Family History Family history is negative [facility] Comment on above: Result Comment: Elec tronically Signed By: Aiden IZQUIERDO MD\.br\Date and Time Signed: 05/23/20 10:17 EST\.br\Electronically Co-Signed By: Mildred Cook MA\.br\Date and Time Co-Signed: 05/23/20 09:55 EST IntraOperative Documentson 1 07-17-2019 IntraOperative Documents [id number] .00CD:127 Normal [facility] Ambulatory Clinical Summaryo n 05-16-2020 Ambulatory Clinical Summary {[id number]}CD:[id number] Normal [facility] Gastroenterology Office/Clin ic Noteon 05-16-2020 Gastroenterology Office/Clinic Note Chief Complaint f/u EGD HPI Staff This is a 25 year old female who presents today for a follow up to EGD. History of Present Illness 24 years old white female with no significant past medical history except for anxiety, referred to me from [facility], ER to be evaluated for right upper quadrant abdominal pain, she reports right upper quadrant abdominal pain, started 6 weeks ago, sporadic, moderate in nature except for the last time when it was severe for which she went to [facility], ER, she had normal CBC, CMP and [...] Information Ezequiel MARTINEZ MD Only if needed [facility] [address] [place] [address]- Additional Instructions: Patient Education Cholelithiasis Problem List/Past [...] Surgical Pathology Report; 04/29/2020 10:57 EST Normal [facility] Comment on above: Result Comment: Elec tronically [...] required. HOME CARE INSTRUCTIONS ? Only take zfoe-xpr-tvppibv or prescription medicines for pain, discomfort, or [...] Document Reviewed: 08/09/2011 ExitCare? Patient Information ?2013 5151tuan. [facility] Coding Summary.on 05-13-2020 Coding Summary. CODING DATE: 05/13/2020 FINAL [facility] STATUS: Home (Routine DC) PAYOR: Reba APC DESCRIPTION 5361 Level 1 Laparoscopy and Related Services ADMIT DX: REASON FOR VISIT DX: K81.1 Chronic cholecystitis FINAL DX: PRINCIPAL: K81.1 Chronic cholecystitis SECONDARY: K82.8 Other specified diseases of gallbladder F41.9 Anxiety disorder, unspecified PYMT PROC APC STAT DESCRIPTION DOCTOR NAME DATE 54220 5361 J1 Laparoscopy, surgical; Aiden IZQUIERDO MD 05/10/2020 cholecystectomy with cholangiography 24257 Anesthesia for Bakari Husain Jr, DO 05/10/2020 intraperitoneal procedures in upper abdomen including laparoscopy; not otherwise specified NOTE: The code number assigned matches the documented diagnosis and / or procedure in the patient's chart. However, the narrative phrase printed from the coding software may appear abbreviated, or result in slightly different terminology. Revised Coded By: Eugenia Mae Revised Date Saved: 05/13/2020 02:09 pm [facility] Main OR Intraoperative Recor don 05-13-2020 Main OR Intraoperative Record IntraOp Document Type FT Summary Primary Physician: Aiden IZQUIERDO MD Finalized Date/Time: 05/13/20 11:07:53 Pt. Name: RAJIV TOVAR/Sex: 1995 Female Med Rec #: [id number] Physician: Aiden IZQUIERDO MD Financial #: [id number] Pt. Type: A Room/Bed: Admit/Disch: 05/10/20 07:43:57 - 05/10/20 15:00:00 Institution: Case Times FT Entry 1 Patient Times In Room 05/10/20 09:29:00 Out Room 05/10/20 10:27:00 Procedure Times Start 05/10/20 09:44:00 Stop 05/10/20 10:20:00 Anesthesia Times Start 05/10/20 09:29:00 Stop 05/10/20 10:27:00 Last Modified By: My Callahan RN 05/10/20 10:27:42 General Comments: 1011- doctor of radiology called dr. guo read xray dilated tapers distally can't exclude small stone possible spasm , Dr. Izquierdo stated understanding. - joan turner 05/13/2020 Chart opened to review and send charges. Angela Leavitt PECAN GROWER. Case Attendance FT Entry 1 Entry 2 Entry 3 Case Attendee Ankit AGUILAR, Linnea IZQUIERDO MD, Aiden ARAUJO MD, Ramandeep Cummings Role Performed Anesthesiologist Surgeon - Primary Surgeon - Assist 1 Veterinary Surgeon Time In 05/10/20 09:29:00 05/10/20 09:40:00 05/10/20 09:45:00 Time Out 05/10/20 10:27:00 05/10/20 10:21:00 05/10/20 10:20:00 Procedure CHOLECYSTECTOMY CHOLECYSTECTOMY CHOLECYSTECTOMY LAPAROSCOPIC W/ LAPAROSCOPIC W/ LAPAROSCOPIC W/ CHOLANGI(.) CHOLANGI(.) CHOLANGI(.) Comments DR HUSAIN SUPERVISING Last Modified By: Lonodn RN, My Callahan RN, My Rubio RN 05/10/20 10:27:43 05/10/20 10:27:43 05/10/20 10:27:43 Entry 4 Entry 5 Entry 6 Case Attendee London TURNER, My Villalba RN, Bernadette Ortiz Cert. Rehabilitation Services Manager, Arlette Davila Role Performed Flight Coordinator - Primary Scrub - Primary Scrub - [...] Case Attendee Kim Gonzalez CST RT(R), Magalie R Role Performed Scrub - Primary Pier Hand Time In 05/10/20 09:29:00 05/10/20 10:00:00 Time [...] PreOp Antibiotic No Time Out Linnea Clemons Participants Addy, Aiden IZQUIERDO MD, Coy RN, Deejay Chowdhury RN, Angel Oglesby Rehabilitation Services Manager, Carlos Rock CST, Macie C Time Out [...] By: C (more content not included)... Normal [facility] Postoperative Documentson Postoperative Documents [id number]# 1.00CD:127 Normal [facility] Progress Note-Physicianon Progress Note-Physician Patient: RAJIV TOVAR [...] 59 kg, 1.66, m2 Lactated Ringers IV Aar 1000 mL 1,000 mL: 1,000 mL, IV, [...] TID, # 10 tab(s), Refills(s) 0, Pharmacy: [facility]/pharmacy #[id number], 168, cm, 04/19/20 6:20:00 EDT, Height/Length Dosing, 58.5, kg, 04/19/20 6:20:00 EDT, Weight Dosing omeprazole 40 mg Cap-DR: 40 mg = 1 cap(s), Oral, Daily, # 30 cap(s), Refills(s) 2, Pharmacy: [facility]/pharmacy #[id number], 168, cm, 04/20/20 10:06:00 EDT, Height/Length Dosing, 59.5, kg, 04/20/20 10:06:00 EDT, Weight Dosing Documented Medications Documented desvenlafaxine 100 mg Tab-: 100 mg = 1 tab(s), Oral, Daily, Refills(s) 0, Depression Problem list: All Problems Biliary dyskinesia / SNOMED CT 006211721 / Confirmed Depression / SNOMED CT 83829302 / Confirmed Histories Past Medical History: No active or resolved past medical history items have been selected or recorded. Family History: Entire family history is negative. Procedure history: EGD (esophagogastroduoden oscopy) gastric outlet reduction ([id number]) on 04/29/2020 at 25 Years. section ([id number]) on 07/23/2019 at 24 Years. Sinus ([id number]). Nasal cautery (131566853). Ankle (5795201). Comments: 05/10/2020 8:24 EST - Kluding [employer], Bernarda Bilateral ankle stabilazation for flat feet Diagnostic laparoscopy (216831618). Comments: 05/10/2020 8:26 EST - Kluding [employer], Bernarda ovarian cyst drained Social History Social [...] EST Heart (more content not included)... Normal [facility] Comment on above: Result Comment: Elec tronically [...] All Problems Biliary dyskinesia / SNOMED CT 430502250 / Confirmed Depression / SNOMED CT 19158328 / Confirmed Physical Examination Vital Signs 05/10/2020 [...] EST Apic (more content not included)... Normal [facility] Comment on above: Result Comment: Elec tronically Signed By: Bakari Husain Jr, DO\.br\Date and Time Signed: 05/13/20 13:20 EST Coding Summary.on 05-12-2020 Coding Summary. CODING DATE: 05/12/2020 FINAL [facility] STATUS: Home (Routine DC) PAYOR: Rudd ADMIT DX: REASON FOR VISIT DX: Z01.812 [...] Jaquez CphT Date Saved: 05/12/2020 09:53 pm [facility] Consent for Anesthesiaon Consent for Anesthesia [id number]# 1.00CD:127 [facility] Discharge Instructionson Discharge Instructions [id number]# 1.00CD:127 [facility] IntraOperative Documentson 1 07-11-2019 IntraOperative Documents [id number]# 1.00CD:127 [facility] Operative Reporton 0 Operative Report Date of Surgery: 05/10/2020 SURGEON: Aiden Izquierdo MD, FACS DISPENSING OPERATOR: Ramandeep Araujo MD, FACS PREOPERATIVE DIAGNOSIS: Chronic [...] Aiden Izquierdo MD, FACS lkr Dictated: 05/10/2020 #[id number] Typed: 05/10/2020 #[id number] cc: Alon Weber M.D. Aiden Izquierdo MD, FACS [facility] Comment on above: Result Comment: Elec tronically Signed By: TIMBO POLK, Aiden Busby.ilana\Date and Time Signed: 05/11/20 08:04 EST Preoperative Documentson Preoperative Documents [id number]# 1.00CD:127 [facility] Preoperative Documents [id number]# 1.00CD:127 [facility] Consent for Treatmenton 04-24 Consent for Treatment [id number]#1 .00CD:127 [facility] Inpatient Patient Summaryon 05-10-2020 Inpatient Patient Summary [place] [id number] [facility] Clinical Discharge Instructions PERSON INFORMATION Name: RAJIV TOVAR [facility]#:[id number] PHYSICIANS Admitting Physician: Aiden IZQUIERDO MD Attending Physician: Aiden IZQUIERDO MD PCP: Gus POLK, Alon Discharge Diagnosis: Chronic cholecystitis with calculus Comment: PATIENT EDUCATION INFORMATION Instructions: Post Op Patient Instructions - FT (CUSTOM); How to Use an Incentive Spirometer; Izquierdo - Post Op Instructions (CUSTOM) Medication Leaflets: Follow up: With: Address: When: Aiden IZQUIERDO [address], [address] [place] [id number] [facility] (1) Within 7 to 10 days Comments: Call for any problems. Call for followup appointment Type Location Start [facility] Follow Up [facility] 05/16/2020 1:00 PM 05/16/2020 1:15 PM Confirmed MEDICATION LIST Medications to Continue with No Changes Other Medications desvenlafaxine (desvenlafaxine 100 mg Tab-) 1 Tablets By Mouth every day. omeprazole (omeprazole 40 mg Cap-DR) 1 Capsules By Mouth every day. Refills: 2. ondansetron (Zofran ODT 4 mg Tab) 1 Tablets By Mouth 3 times a day. Refills: 0. Comment: Normal [facility] IntraOperative Documentson 07-10-2019 IntraOperative Documents [id number]# 1.00CD:127 Normal [facility] Main OR PACU I Recordon 04-24 Main OR PACU I Record PACU Phase I Document Type FT Summary Primary Physician: Aiden IZQUIERDO MD Finalized Date/Time: 05/10/20 11:13:04 Pt. Name: RAJIV TOVAR/Sex: 1995 Female Med Rec #: [id number] Physician: Aiden IZQUIERDO MD Financial #: [id number] Pt. Type: A Room/Bed: AS06/24 Admit/Disch: 05/10/20 [...] By: Belkys Yarbrough RN 05/10/20 11:13 Normal [facility] Main OR PACU II Recordon Main OR PACU II Record PACU Phase II Document Type FT Summary Primary Physician: Aiden IZQUIERDO MD Finalized Date/Time: 05/10/20 15:45:07 Pt. Name: RAJIV TOVAR Pilar/Sex: 1995 Female Med Rec #: [id number] Physician: Aiden IZQUIERDO MD Financial #: [id number] Pt. Type: A Room/Bed: Admit/Disch: 05/10/20 07:43:57 [...] Signed By: Marcelina Cadet RN 05/10/20 15:45 Normal [facility] Main OR Preoperative Recordo n 05-10-2020 Main OR Preoperative Record PreOp Document Type FT Summary Primary Physician: Aiden IZQUIERDO MD Finalized Date/Time: 05/10/20 10:00:50 Pt. Name: RAJIV TOVAR /Sex: 1995 Female Med Rec #: [id number] Physician: Aiden IZQUIERDO MD Financial #: [id number] Pt. Type: A Room/Bed: Admit/Disch: 05/10/20 07:43:57 [...] By: My Callahan RN 05/10/20 10:00 Normal [facility] Monitor Recordon 05-10-2020 Monitor Record [id number]# 1.00CD:127 Normal [facility] Outpatient Surgery Discharge Instructionon 05-10-2020 Outpatient Surgery Discharge Instruction [place] [id number] Patient Discharge Instructions PERSON INFORMATION Name: RAJIV [...] With: Address: When: Aiden [address], [address] [place] [address] [facility] () Within 7 to 10 days Comments: Call for any problems. Call for followup appointment Type Location [facility] Follow Up [facility] 05/16/2020 1:00 PM 05/16/2020 1:15 PM Confirmed Pharmacy Information: Thank you for choosing [facility] HERE ARE THE MEDICATION CHANGES THAT [...] possible. ? If the spirometer includes a executive coach indicator, use this to guide you [...] pain from co (more content not included)... [facility] Patient Education - Texton 1 07-10-2019 [...] possible. ? If the spirometer includes a executive coach indicator, use this to guide you [...] 10/21/2007 Document Revised: 07/03/2018 Document Reviewed: 04/23/2018 [employer] Patient Education ? 2019 [employer]. [place], [place] Aiden Izquierdo MD, FACS POST OPERATIVE [...] or r (more content not included)... Normal [facility] Progress Note-Physicianon Progress Note-Physician Patient: RAJIV TOVAR Age: 25 years Sex: Female : 1995 Associated Diagnoses: None Author: Aiden IZQUIERDO MD Postoperative Information Date/ Time: 05/10/2020 10:26:00 Preoperative Diagnosis: Chronic cholecystitis with calculus ([id number] K80.10, Working, Medical). Postoperative Diagnosis: Same pending pathology. Procedure: Laparoscopic Cholecystectomy with intraoperative chloangiogram. Performed by: Aiden Izquierdo MD. Veterinary Surgeon: Ramandeep Araujo MD. Specimens Removed: Gallbladder. Estimated Blood Loss: 5 ml. Complications: None. Normal [facility] Comment on above: Result Comment: Elec tronically Signed By: Aiden IZQUIERDO MD\.br\Date and Time Signed: 05/10/20 10:27 EST Progress Note-Physician Patient: RAJIV TOVAR Age: 25 years Sex: Female : 1995 Associated Diagnoses: None Author: Aiden IZQUIERDO MD Basic Information No change in History and Physical Normal [facility] Comment on above: Result Comment: Elec tronically [...] ALSO POSSIBLE. CLINICAL HISTORY: Cholelithiasis. COMMENT: Limited [id number]-tp-khbi C-arm images were obtained in the OR, [...] OLGA Technologist: KIRSTIN Technical Comments Radiation Dose: Ka,r in mGy = 3.4 Normal [facility] Coding Summary.on 05-08-2020 Coding Summary. CODING DATE: 05/07/2020 FINAL [facility] STATUS: Home (Routine DC) PAYOR: Reba ADMIT [...] CphT Date Saved: 05/07/2020 10:24 pm Normal [facility] Coding Summary.on 05-05-2020 Coding Summary. CODING DATE: 05/05/2020 FINAL [facility] STATUS: Home (Routine DC) PAYOR: Reba APC DESCRIPTION 5301 Level 1 Upper GI Procedures ADMIT DX: REASON FOR VISIT DX: R10.13 Epigastric pain FINAL DX: PRINCIPAL: R10.13 Epigastric pain SECONDARY: R10.11 Right upper quadrant pain F41.9 Anxiety disorder, unspecified PYMT PROC APC STAT DESCRIPTION DOCTOR NAME DATE 00026 5301 Ezequiel WEST MD 04/29/2020 phagogastroduodenosco py, flexible, transoral; with biopsy, single or multiple 88036 Anesthesia for upper Husain Bakari Berry DO [...] Mae Revised Date Saved: 05/05/2020 11:48 am [facility] Consent for Procedure/Surger yon 05-05-2020 Consent for Procedure/Surgery [id number]#1 .00CD:127 [facility] Formson 05-05-2020 Forms [id number]#1 .00CD:127 [facility] Priority Order-Mitchell 2019 Priority Order-STAT Comment Invalid Interpretation Code [facility] Comment on above: Result Comment: Rece ived Performed at: [facility] [address] [facility] [place], [place] [id number] [facility] Johanny Lozano Performed By: #### 2 [id number], SARS-CoV-2, MARY #### [facility] Laboratory [address] [place] [address] SARS-CoV-2, NAAon 05-05-2020 SARS-CoV-2 (COVID-19) RNA MARY+probe Ql (Resp) Not detected Invalid Interpretation Code Not Detected [facility] Comment on above: Result Comment: This nucleic acid amplification test was developed and its performance characteristics determined by [employer]. Nucleic acid amplification tests include PCR and [...] detected) result in this assay. Performed at: [email or web address] [address] [facility] [place] [id number] MD Indira Washington Performed By: #### 2 [id number], SARS-CoV-2, MARY #### [facility] [address] [place] [address] B hCG Qualon 05-04-2020 Beta hCG Ql Negative Normal [facility] Comment on above: Performed By: #### 2 [id number] #### [facility] Laboratory [address] [place] [address] CBC w/Indiceson 05-04-2020 Erythrocyte distribution width (RBC) [Ratio] 13.1 % Normal 10.9-14.2 [facility] Comment on above: Performed By: #### 2 387819, 7431998 ####[address] [address] Hematocrit (Bld) [Volume fraction] 40.5 % Normal 34.0-46.0 [facility] Comment on above: Performed By: #### 2 641700, 8086031 ####[address] [address] Hemoglobin (Bld) [Mass/Vol] 14.0 g/dL Normal 12.0-16.0 [facility] Comment on above: Performed By: #### 2 307100, 5476974 ####[address] [address] MCH (RBC) [Entitic mass] 31.0 pg Normal 27.0-34.0 [facility] Comment on above: Performed By: #### 2 293453, 4501834 ####[address] [address] MCHC (RBC) [Mass/Vol] 34.6 g/dL Normal 31.4-36.0 [facility] Comment on above: Performed By: #### 2 250885, 6964495 ####[address] [address] MCV (RBC) [Entitic vol] 89.7 fL Normal 80.0-100.0 [facility] Comment on above: Performed By: #### 2 562265, 2677828 ####[address] [address] Platelet mean volume (Bld) [Entitic vol] 9.1 fL Normal 6.4-10.8 [facility] Comment on above: Performed By: #### 2 099821, 6425954 ####[address] [address] Platelets (Bld) [#/Vol] 245.0 E9/L Normal 150.0-500.0 [facility] Comment on above: Performed By: #### 2 917215, 3694736 ####[facility] [address] [place] [address] RBC (Bld) [#/Vol] 4.5 E12/L Normal 4.3-5.9 [facility] Comment on above: Performed By: #### 2 815566, 6065623 ####[facility] [address] [place] [address] WBC corrected for nucl RBC Auto (Bld) [#/Vol] 5.6 E9/L Normal 4.0-11.0 [facility] Comment on above: Performed By: #### 2 457410, 2625296 ####[address] [address] Consent for Treatmenton 04-24 Consent for Treatment [id number]#1 .00CD:127 Normal [facility] Hep Func Panelon 05-04-2020 Albumin [Mass/Vol] 4.2 g/dL Normal 3.3-5.0 [facility] Comment on above: Order Comment: if no t already done. Performed By: #### 2 452421, 2952376 ####[address] [address] Albumin/Globulin (S) [Mass conc ratio] 1.4 Normal 1.1-2.2 [facility] Comment on above: Order Comment: if no t already done. Performed By: #### 2 295479, 3147989 ####[facility] [address] [place] [address] ALP [Catalytic activity/Vol] 112 Int._Unit/L High 21-98 [facility] Comment on above: Order Comment: if no t already done. Performed By: #### 2 630616, 3254621 ####[facility] [address] [place] [address] ALT No additional P-5'-P [Catalytic activity/Vol] 129 Int._Unit/L High 6-46 [facility] Comment on above: Order Comment: if no t already done. Performed By: #### 2 339718, 4153017 ####[facility] [address] [place] [address] AST [Catalytic activity/Vol] 28 Int._Unit/L Normal 5-43 [facility] Comment on above: Order Comment: if no t already done. Performed By: #### 2 773740, 5255698 ####[address] [address] Bilirubin [Mass/Vol] 0.7 mg/dL Normal 0.0-1.1 [facility] Comment on above: Order Comment: if no t already done. Performed By: #### 2 182686, 6802059 ####[address] [address] Bilirubin.direct [Mass/Vol] 0.1 mg/dL Normal 0.1-0.4 [facility] Comment on above: Order Comment: if no t already done. Performed By: #### 2 583194, 0588745 ####[facility] [address] [place] [address] Bilirubin.indirect [Mass or moles/Vol] 0.6 mg/dL Normal 0.1-0.9 [facility] Comment on above: Order Comment: if no t already done. Performed By: #### 2 879996, 7603663 ####[address] [address] Globulin (S) [Mass/Vol] 3.1 g/dL Normal 1.4-4.0 [facility] Comment on above: Order Comment: if no t already done. Performed By: #### 2 260951, 7608443 ####[facility] [address] [place] [address] Protein [Mass/Vol] 7.3 g/dL Normal 6.0-7.8 [facility] Comment on above: Order Comment: if no t already done. Performed By: #### 2 862576, 3561507 ####[facility] [address] [place] [address] Ambulatory Clinical Summaryo n 05-03-2020 Ambulatory Clinical Summary {[id number]}CD:070730 [facility] Consent for Procedure/Surger yon 05-03-2020 Consent for Procedure/Surgery [id number]#1 .00CD:127 [facility] Consent for Procedure/Surgery [id number]#1 .00CD:127 [facility] Formson 05-03-2020 Forms [id number]#1 .00CD:127 [facility] Forms [id number]#1 .00CD:127 [facility] Physician Orderon 05-03-2020 Physician Order [id number]#1 .00CD:127 [facility] Physician Referralon 020 Physician Referral [id number]#1 .00CD:127 [facility] Postoperative Documentson Postoperative Documents [id number]# 1.00CD:127 [facility] Progress Note-Physicianon Progress Note-Physician Patient: RAJIV [...] TID, # 10 tab(s), Refills(s) 0, Pharmacy: [facility]/pharmacy #[id number], 168, cm, 04/19/20 6:20:00 EDT, Height/Length Dosing, 58.5, kg, 04/19/20 6:20:00 EDT, Weight Dosing omeprazole 40 mg Cap-DR: 40 mg = 1 cap(s), Oral, Daily, # 30 cap(s), Refills(s) 2, Pharmacy: [facility]/pharmacy #[id number], 168, cm, 04/20/20 10:06:00 EDT, Height/Length [...] Psychosocial Habits Alcohol 04/19/2020 Use: Current Comment: Denolegario - 04/19/2020 06:50 Christiana Yee RN Substance [...] Cardiovascular: Regular rhythm. Neurologic: Alert, Oriented. Plan [place] [employer] Anesthesiologists (ASA) physical status classification: Class II. Anesthetic Preoperative Plan Anesthesia: General. . Anesthetic plan, risks, benefits, and alternatives discussed with the patient and/or family. Communication: face to face with (patient 5 minutes, Patient educated on smoking cesstation). Normal [facility] Comment on above: Result Comment: Elec tronically [...] mmHg (APR 29:) DBP 88 mmHg (APR 29) SpO2 100 % (APR 29) Weight 59.5 [...] vomiting. Plan Transfer/ Discharge: Condition stable. Normal [facility] Comment on above: Result Comment: Elec tronically Signed By: Bakari Husain Jr, DO\.br\Date and Time Signed: 05/03/20 09:37 EST Consenton 05-02-2020 Consent [id number]#1 .00CD:127 [facility] Discharge Instructionson Discharge Instructions [id number]#1 .00CD:127 Normal [facility] General Surgery Office/Clini c Noteon 05-02-2020 General [...] With When Contact Information TIMBO POLK, Aiden Tilley [address] [place] [address]- Additional Instructions: F/U POST OP. [...] Family History Family history is negative Normal [facility] Comment on above: Result Comment: Elec tronically Signed By: Aiden IZQUIERDO MD\.br\Date and Time Signed: 05/02/20 15:39 EST\.br\Electronically Co-Signed By: Mildred Cook MA.br\Date and Time Co-Signed: 05/02/20 15:25 EST IntraOperative Documentson 1 07-02-2019 IntraOperative Documents [id number]#1 .00CD:127 Normal [facility] IntraOperative Documents [id number]#1 .00CD:127 Normal [facility] Main OR Intraoperative Recor don 05-02-2020 Main OR Intraoperative Record IntraOp Document Type FT Summary Primary Physician: Ezequiel MARTINEZ MD Finalized Date/Time: 05/02/20 08:23:39 Pt. Name: AKHIL RAJIV Quezada/Sex: 1995 Female Med Rec #: [id number] Physician: Ezequiel MARTINEZ MD Financial #: [id number] Pt. Type: O Room/Bed: / Admit/Disch: 04/29/20 10:12:58 - 04/29/20 23:59:59 Institution: Case Times FT Entry 1 Patient Times In Room 04/29/20 10:52:00 Out Room 04/29/20 11:04:00 Procedure Times Start 04/29/20 10:56:00 Stop 04/29/20 10:59:00 Anesthesia Times Start 04/29/20 10:52:00 Stop 04/29/20 11:04:00 Last Modified By: Russell Maloney RN 04/29/20 11:04:12 General Comments: 05/02/2020 Chart opened to review and send charges. F Dagmar PECAN GROWER. Case Attendance FT Entry 1 Entry 2 Entry 3 Case Attendee Rodrigue Berry DO, Bakari MARTINEZ MD, Russell Lawrence RN Role Performed Anesthesiologist of Surgeon - Primary Flight Coordinator - Primary Record Time In 04/29/20 10:52:00 04/29/20 10:52:00 04/29/20 10:52:00 Time Out 04/29/20 11:04:00 04/29/20 11:04:00 04/29/20 11:04:00 Procedure EGD(.) EGD(.) EGD(.) Comments Last Modified By: Haider TURNER, Russell Maloney RN, Russell Santos RN 04/29/20 11:04:13 04/29/20 11:04:13 04/29/20 11:04:13 Entry 4 Entry 5 Entry 6 Case Attendee Mere TURNER, Charlotte Roberts CST, Aria Role Performed Flight Coordinator - Primary Scrub - Primary Staff - Other Time In 04/29/20 10:52:00 04/29/20 10:52:00 04/29/20 10:57:00 Time Out 04/29/20 11:04:00 04/29/20 11:04:00 04/29/20 11:04:00 Procedure EGD(.) EGD(.) EGD(.) Comments Help in room. Last Modified By: Haider TURNER, Russell Maloney [...] Antibiotic No Time Out Rodrigue Berry DO, Bakrai Cummings, Given Participants Ezequiel MARTINEZ MD, Souter RN, Russell [place], Mere TURNER, Jose Mendez Kirstyn K Time Out Complete [...] Arm P (more content not included)... Normal [facility] Ezequiel Martinez M.D. [address] [place] [address] Re: RAJIV TOVAR Date of : 1995 [...] report following her procedure. Sincerely Aiden Kaplan [facility] Coding Summary.on 04-30-2020 Coding Summary. CODING DATE: 04/29/2020 FINAL [facility] STATUS: Home (Routine DC) PAYOR: Reba ADMIT [...] Jaquez CphT Date Saved: 04/29/2020 11:14 pm [facility] Consent for Treatmenton Consent for Treatment [id number]#1 .00CD:127 [facility] Endoscopic Procedure Report - Otheron 04-29-2020 [...] surgery for right upper quadrant pain/cholelithiasis Normal [facility] Comment on above: Result Comment: Elec tronically Signed By: Ezequiel MARTINEZ MD\.br\Date and Time Signed: 04/29/20 11:03 EST Other Comment: Lorri frazier Attachment - attachment storage system not supported [id number] Can be viewed in source systemMissing Attachment - attachment storage system not supported [id number] Can be viewed in source systemMissing Attachment - attachment storage system not supported [id number] Can be viewed in source systemMissing Attachment - attachment storage system not supported [id number] Can be viewed in source systemMissing Attachment - attachment storage system not supported [id number] Can be viewed in source system Inpatient Patient Summaryon 04-29-2020 Inpatient Patient Summary [place] [id number] [facility] Clinical Discharge Instructions PERSON INFORMATION Name: RAJIV TOVAR PHYSICIANS Admitting Physician: Ezequiel MARTINEZ MD Attending Physician: Ezequiel MARTINEZ MD PCP: Alon Weber MD Discharge Diagnosis: Abdominal pain Comment: PATIENT EDUCATION INFORMATION Instructions: Medication Leaflets: Follow up: With: Address: When: Aiden IZQUIERDO [address], [address] [place] [address] Business (1) With: Address: When: Ezequiel [facility] [address], [place] [address] Within 2 weeks Type Location Start [facility] Follow Up [facility] 05/16/2020 1:00 PM 05/16/2020 1:15 PM [...] times a day. Refills: 0. Comment: Normal [facility] Main OR PACU I Recordon Main OR PACU I Record PACU Phase I Document Type FT Summary Primary Physician: Ezequiel MARTINEZ MD Finalized Date/Time: 04/29/20 12:13:51 Pt. Name: RAJIV TOVAR/Sex: 1995 Female Med Rec #: [id number] Physician: Ezequiel MARTINEZ MD Financial #: [id number] Pt. Type: O Room/Bed: / Admit/Disch: 04/29/20 [...] By: Belkys Yarbrough RN 04/29/20 12:13 Normal [facility] Main OR Preoperative Recordo n 04-29-2020 Main OR Preoperative Record Holding Area Document Type FT Summary Primary Physician: Ezequiel MARTINEZ MD Finalized Date/Time: 04/29/20 10:21:44 Pt. Name: RAJIV TOVAR/Sex: 1995 Female Med Rec #: [id number] Physician: Ezequiel MARTINEZ MD Financial #: [id number] Pt. Type: O Room/Bed: / Admit/Disch: 04/29/20 [...] By: Marielle Pineda RN 04/29/20 10:21 Normal [facility] Monitor Recordon 04-29-2020 Monitor Record [id number]# 1.00CD:127 Normal [facility] Outpatient Surgery Discharge Instructionon 04-29-2020 Outpatient Surgery Discharge Instruction [place] [id number] Patient Discharge Instructions PERSON INFORMATION Name: RAJIV [...] Aiden IZQUIERDO [address], [address] [place] [place] [address] Business (1) With: Address: When: [facility] [place] [place] [facility] [address] [place] [address] Within 2 weeks Type Location [facility] Follow Up [facility] 05/16/2020 1:00 PM 05/16/2020 1:15 PM Confirmed Pharmacy Information: Thank you for choosing [facility] HERE ARE THE MEDICATION CHANGES THAT [...] Refills: 0. PATIENT EDUCATION INFORMATION Instructions: Normal [facility] Patient Education - Texton 1 06-29-2019 Patient Education - Text Normal [facility] Priority Order-Mitchell 2019 Priority Order-STAT Comment Invalid Interpretation Code [facility] Comment on above: Result Comment: Rece ived Performed at: [facility] [address] [place], [place] [id number] MD Indira Washington Performed By: #### 2 [id number], SARS-CoV-2, MARY #### [facility] Laboratory [address] [place] [address] SARS-CoV-2, NAAon 04-23-2020 SARS-CoV-2 (COVID-19) RNA MARY+probe Ql (Resp) Not detected Invalid Interpretation Code Not Detected [facility] Comment on above: Result Comment: This nucleic acid amplification test was developed and its performance characteristics determined by [employer]. Nucleic acid amplification tests include PCR and [...] detected) result in this assay. Performed at: [facility] [address] [facility] [place] [id number] MD Indira Washington Performed By: #### 2 [id number], SARS-CoV-2, MARY #### [facility] [address] [place] [address] Ambulatory Clinical Summaryo n 04-20-2020 Ambulatory Clinical Summary {[id number] Normal [facility] Coding Summary.on 04-20-2020 Coding Summary. CODING DATE: 04/20/2020 FINAL [facility] STATUS: Home (Routine DC) PAYOR: Rudd APC DESCRIPTION 5522 Level 2 Imaging without [...] Revised Date Saved: 04/20/2020 07:55 am Normal [facility] Consent for Procedure/Surger yon 04-20-2020 Consent for Procedure/Surgery [id number] .00CD:127 Normal [facility] Gastroenterology Office/Clin ic Noteon 04-20-2020 Gastroenterology Office/Clinic Note Chief Complaint f/u to ER RUQ HPI Staff This is a 24 year old female who presents today for a follow up for an ED visit for RUQ pain. History of Present Illness 24 years old white female with no significant past medical history except for anxiety, referred to me from [facility] to be evaluated for right upper quadrant abdominal pain, she reports right upper quadrant abdominal pain, started 6 weeks ago, sporadic, moderate in nature except for the last time when it was severe for which she went to [facility], she had normal CBC, CMP [...] Daily, # 30 cap(s), Refills(s) 2, Pharmacy: [facility]/pharmacy #[id number], 168, cm, 04/20/20 10:06:00 EDT, Height/Length Dosing, 59.5, kg, 04/20/20 10:06:00 EDT, Weight Dosing EGD Endoscopy (Hospital Procedure) 2. Anxiety (F41.9: Anxiety disorder, unspecified) 3. Nausea (R11.0: Nausea) Ordered: omeprazole, 40 mg = 1 cap(s), Oral, Daily, # 30 cap(s), Refills(s) 2, [id number] 168, cm, 04/20/20 10:06:00 EDT, Height/Length Dosing, 59.5, kg, 04/20/20 10:06:00 EDT, Weight Dosing EGD Endoscopy (Hospital Procedure) Follow-up With When Contact Information Ezequiel MARTINEZ MD Within 2 weeks [facility] [address] [facility], [place] [address]- Additional Instructions: Patient Education Abdominal [...] Family History Family history is negative Normal [facility] Comment on above: Result Comment: Elec tronically Signed By: Ezequiel MARTINEZ MD\.br\Date and Time Signed: 04/20/20 10:56 EDT Patient Educationon 04-20-20 Patient Education Abdominal Pain Abdominal pain can [...] directed by your caregiver. ? Only take admv-dlh-lctlmab or prescription medicines for pain, discomfort, or [...] Document Reviewed: 01/26/2009 ExitCare? Patient Information ?2013 [id number]. Family Medicine Abdominal Pain Abdominal pain can [...] directed by your caregiver. ? Only take ubvn-cid-rysfgul or prescription medicines for pain, discomfort, or [...] Document Reviewed: 01/26/2009 ExitCare? Patient Information ?2013 [id number]. Normal [facility] Physician Orderon 04-20-2020 Physician Order [id number]# 1.00CD:127 Normal [facility] Physician Order [id number]#1. 00CD:127 Normal [facility] Auto Diffon 04-19-2020 Basophils/100 WBC (Bld) 0.6 % Normal 0.0-2.0 [facility] Comment on above: Order Comment: Order Added by Discern Expert. Performed By: #### 2 [id number] #### [facility] Laboratory [address] [place] [address] Basophils/Leukocytes Auto (Bld) [Pure # fraction] 0.0 E9/L Normal 0.0-0.2 [facility] Comment on above: Order Comment: Order Added by Discern Expert. Performed By: #### 2 [id number] #### [facility] [address] [place] [address] Eosinophils/100 WBC (Bld) 0.2 % Normal 0.0-8.0 [facility] Comment on above: Order Comment: Order Added by Discern Expert. Performed By: #### 2 [id number] #### [facility] [address] [place] [address] Eosinophils/Leukocyt es Auto (Bld) [Pure # fraction] 0.0 E9/L Normal 0.0-0.5 [facility] Comment on above: Order Comment: Order Added by Discern Expert. Performed By: #### 2 [id number] #### [facility] Laboratory [address] [place] [address] Lymphocytes/100 WBC (Bld) 34.4 % Normal 14.0-50.0 [facility] Comment on above: Order Comment: Order Added by Discern Expert. Performed By: #### 2 [id number] #### [facility] [address] [place] [address] Lymphocytes/Leukocyt es Auto (Bld) [Pure # fraction] 2.5 E9/L Normal 1.0-4.0 [facility] Comment on above: Order Comment: Order Added by Discern Expert. Performed By: #### 2 [id number] #### [facility] [address] [place] [address] Monocytes/100 WBC (Bld) 6.1 % Normal 4.0-14.0 [facility] Comment on above: Order Comment: Order Added by Discern Expert. Performed By: #### 2 [id number] #### [facility] [address] [place] [address] Monocytes/Leukocytes Auto (Bld) [Pure # fraction] 0.4 E9/L Normal 0.2-1.0 [facility] Comment on above: Order Comment: Order Added by Discern Expert. Performed By: #### 2 [id number] #### [facility] [address] [place] [address] Neutrophils/100 WBC (Bld) 58.7 % Normal 36.0-75.0 [facility] Comment on above: Order Comment: Order Added by Discern Expert. Performed By: #### 2 [id number] #### [facility] [address] [place] [address] Neutrophils/Leukocyt es Auto (Bld) [Pure # fraction] 4.2 E9/L Normal 2.0-7.5 [facility] Comment on above: Order Comment: Order Added by Discern Expert. Performed By: #### 2 [id number] #### [facility] [address] [place] [address] BMPon 04-19-2020 Creatinine [Mass/Vol] 0.8 mg/dL Normal 0.5-1.3 [facility] Comment on above: Performed By: #### 2 [id number] #### [facility] [address] [place] [address] Urea nitrogen [Mass/Vol] 12 mg/dL Normal 5-21 [facility] Comment on above: Performed By: #### 2 [id number] #### [facility] [address] [place] [address] Urea nitrogen/Creatinine [Mass ratio] 15 No Units Normal 10- [facility] Comment on above: Performed By: #### 2 [id number] #### [facility] [address] [place] [address] Anion gap [Moles/Vol] 11 mmol/L Normal 6-16 [facility] Comment on above: Performed By: #### 2 [id number] #### [facility] [address] [place] [address] Calcium [Mass/Vol] 9.7 mg/dL Normal 8.9-11.1 [facility] Comment on above: Performed By: #### 2 [id number] #### [facility] [address] [place] [address] Chloride [Moles/Vol] 103 mmol/L Normal 101-111 [facility] Comment on above: Performed By: #### 2 [id number] #### [facility] [address] [place] [address] CO2 [Moles/Vol] 27 mmol/L Normal 21-31 [facility] Comment on above: Performed By: #### 2 [id number] #### [facility] [address] [place] [address] Glucose [Mass/Vol] 97 mg/dL Normal 55-199 [facility] Comment on above: Result Comment: If t his glucose result represents a fasting glucose, interpretation should refer to the following reference range: 55-99 mg/dL Performed By: #### 2 [id number] #### [facility] [address] [place] [address] Potassium [Moles/Vol] 3.5 mmol/L Normal 3.5-5.3 [facility] Comment on above: Performed By: #### 2 [id number] #### [facility] [address] [place] [address] Sodium [Moles/Vol] 137 mmol/L Normal 135-145 [facility] Comment on above: Performed By: #### 2 [id number] #### [facility] [address] [place] [address] CBC w/ Auto Diffon 10--202 0 Erythrocyte distribution width (RBC) [Ratio] 13.3 % Normal 10.9-14.2 [facility] Comment on above: Performed By: #### 2 [id number] #### [facility] [address] [place] [address] Hematocrit (Bld) [Volume fraction] 37.6 % Normal 34.0-46.0 [facility] Comment on above: Performed By: #### 2 [id number] #### [facility] [address] [place] [address] Hemoglobin (Bld) [Mass/Vol] 13.4 g/dL Normal 12.0-16.0 [facility] Comment on above: Performed By: #### 2 [id number] #### [facility] [address] [place] [address] MCH (RBC) [Entitic mass] 31.9 pg Normal 27.0-34.0 [facility] Comment on above: Performed By: #### 2 [id number] #### [facility] [address] [place] [address] MCHC (RBC) [Mass/Vol] 35.7 g/dL Normal 31.4-36.0 [facility] Comment on above: Performed By: #### 2 [id number] #### [facility] [address] [place] [address] MCV (RBC) [Entitic vol] 89.2 fL Normal 80.0-100.0 [facility] Comment on above: Performed By: #### 2 [id number] #### [facility] [address] [place] [address] Platelet mean volume (Bld) [Entitic vol] 9.4 fL Normal 6.4-10.8 [facility] Comment on above: Performed By: #### 2 [id number] #### [facility] [address] [place] [address] Platelets (Bld) [#/Vol] 219.0 E9/L Normal 150.0-500.0 [facility] Comment on above: Performed By: #### 2 [id number] #### [facility] [address] [place] [address] RBC (Bld) [#/Vol] 4.2 E12/L Low 4.3-5.9 [facility] Comment on above: Performed By: #### 2 [id number] #### [facility] [address] [place] [address] WBC corrected for nucl RBC Auto (Bld) [#/Vol] 7.2 E9/L Normal 4.0-11.0 [facility] Comment on above: Performed By: #### 2 [id number] #### [facility] [address] [place] [address] Consent for Treatmenton 03-25 Consent for Treatment [id number] .00CD:127 Normal [facility] Discharge Instructionson Discharge Instructions [id number] 1.00CD:127 Normal [facility] ED Clinical Summaryon 2019 ED Clinical Summary [address] [id number] ED Clinical Summary [facility]: [facility] Age[facility] 24 Years : 1995 Sex: Female Language: Ugandan PCP: Alon Weber MD Marital Status: Single [...] 08:58:55 04/19/2020 08:58:55 04/19/2020 08:58:55 ADDRESS: [address] [facility] [id number] PHYS DOC NOTES: Addendum by Laureano Phillip DO on April 19, 2020 08:26:02 EDT MEDICAL INFORMATION: Prescriptions Given: New Medications [id number], [address], [place] [id number], [phone] dicyclomine (dicyclomine 20 mg Tab) 1 Tablets By Mouth 3 times a day for 7 Days. Refills: 0. ondansetron (Zofran ODT 4 mg Tab) 1 Tablets By Mouth 3 times a day. Refills: 0. PATIENT EDUCATION INFORMATION: Instructions: Cholelithiasis Follow up: With: Address: When: [facility] [place] [place] [facility], [address] [place] [address] Business (1) In 3 days 04/22/2020 DIAGNOSIS: 1:Abdominal pain; Biliary colic; Gall stone; Nausea Normal [facility] ED Note-Nursingon 04-19-2020 ED Note-Nursing Report received from Zacarias Cuevas RN. Patient resting on cart. Updated on plan of care. Denies any needs at this time. Call light in reach. Normal [facility] ED Note-Physicianon 04-19-20 ED Note-Physician Basic Information [...] Diagnosis: Abdominal pain, cholelithiasis, biliary colic Normal [facility] Comment on above: Result Comment: Elec tronically [...] medicine. HOME CARE INSTRUCTIONS ? Only take vsug-xin-qrnuzys or prescription medicines for pain, discomfort, or [...] Document Reviewed: 12/02/2013 ExitCare? Patient Information ?2015 [id number]. This information is not intended to replace advice given to you by your health care provider. Make sure you discuss any questions you have with your health care provider. Normal [facility] ED Patient Summaryon 020 ED Patient Summary [address] [address] Patient Discharge Instructions Person Information Name: RAJIV TOVAR Age: 24 Years Arrival Date: 04/19/2020 06:10:12 Discharge Diagnosis: 1:Abdominal pain; Biliary colic; Gall stone; Nausea Primary Care Physician: Alon Weber MD Provider Information Primary Provider: Susana Belcher M.D. [facility] [employer] [facility] Specialist:None The exam and treatment you received in the Emergency Department were for an urgent problem and are not intended as complete care. It is important that you follow up with a doctor, nurse practitioner, or physician?s dental assistant for ongoing care. If your symptoms become worse or you do not improve as expected and you are unable to reach your usual health care provider, you should return to the Emergency Department. We are available 24 hours a day. RAJIV TOVAR has been given the following list of patient education materials, prescriptions and follow-up instructions: Follow-up Instructions: With: Address: When: [facility] [place] [place] [facility], [address] [place] [address] Business (1) In 3 days 04/22/2020 In the event that this physician does not participate in your insurance network, please consult with your insurance company to find a nearby participating provider. Patient Education Materials: Cholelithiasis A MESSAGE TO ALL PATIENTS REGARDING OPIOIDS PRESCRIPTION OPIOIDS: WHAT YOU NEED TO KNOW Prescription opioids can be used to help relieve adibxvke-mv-idslwk pain and are often prescribed following a [...] be struggling with addiction, tell your health laboratory animal caretaker and ask for guidance or call [facility]?S National Helpline at 3-127-6 (more content not included)... Normal [facility] Hep Func Panelon 04-19-2020 Bilirubin.indirect [Mass or moles/Vol] UTC Abnormal 0.1-0.9 [facility] Comment on above: Result Comment: Resu lt verified by Discern Rule. Performed result UTC (Unable to Calculate) was sent as an Alpha code due the inability to calculate a valid numeric value. Performed By: #### 2 [id number] #### [facility] Laboratory [address] [place] [address] Albumin [Mass/Vol] 4.3 g/dL Normal 3.3-5.0 [facility] Comment on above: Performed By: #### 2 [id number] #### [facility] [address] [place] [address] Albumin/Globulin (S) [Mass conc ratio] 1.5 Normal 1.1-2.2 [facility] Comment on above: Performed By: #### 2 [id number] #### [facility] [address] [place] [address] ALP [Catalytic activity/Vol] 77 Int._Unit/L Normal 21-98 [facility] Comment on above: Performed By: #### 2 [id number] #### [facility] [address] [place] [address] ALT No additional P-5'-P [Catalytic activity/Vol] 59 Int._Unit/L High 6-46 [facility] Comment on above: Performed By: #### 2 [id number] #### [facility] [address] [place] [address] AST [Catalytic activity/Vol] 36 Int._Unit/L Normal 5-43 [facility] Comment on above: Performed By: #### 2 [id number] #### [facility] Laboratory [address] [place] [address] Bilirubin [Mass/Vol] 0.4 mg/dL Normal 0.0-1.1 [facility] Comment on above: Performed By: #### 2 [id number] #### [facility] [address] [place] [address] Bilirubin.direct [Mass/Vol] mg/dL Normal 0.1-0.4 [facility] Comment on above: Performed By: #### 2 [id number] #### [facility] [address] [place] [address] Globulin (S) [Mass/Vol] 2.8 g/dL Normal 1.4-4.0 [facility] Comment on above: Performed By: #### 2 [id number] #### [facility] [address] [place] [address] Protein [Mass/Vol] 7.1 g/dL Normal 6.0-7.8 [facility] Comment on above: Performed By: #### 2 [id number] #### [facility] [address] [place] [address] Lipase Levelon 04-19-2020 Lipase [Catalytic activity/Vol] 43 U/L Normal 13-58 [facility] Comment on above: Performed By: #### 2 [id number] #### [facility] [address] [place] [address] PT & PTTon 04-19-2020 aPTT Coag (PPP) [Time] 30.2 second(s) Normal 25.1-36.5 [facility] Comment on above: Result Comment: Hepa rin therapeutic range (represented by Anti-Factor Xa activity of 0.2 - 0.4 U/mL) corresponds to PTT of 56.6 - 109.0 sec. Performed By: #### 2 [id number] #### [facility] [address] [place] [address] INR Coag (PPP) [Relative time] 1.0 {INR} Invalid Interpretation Code [facility] Comment on above: Result Comment: INR results are specifically intended to assess patients stabilized on long-term Anticoagulation therapy suggested INR?s ?Less Intensive Anticoagulation? 2.0 ? 3.0 Conventional Range 3.0 ? 4.5 Performed By: #### 2 [id number] #### [facility] [address] [place] [address] PT Coag (PPP) [Time] 11.8 second(s) Normal 10.2-12.9 [facility] Comment on above: Performed By: #### 2 [id number] #### [facility] [address] [place] [address] Prescriptions/Work Noteson 1 Prescriptions/Work Notes [id number]# 1.00CD:127 Normal [facility] U BetaHcg Qualon 04-19-2020 HCG.beta subunit (U) [Moles/Vol] Negative Normal [facility] Comment on above: Performed By: #### 2 [id number] #### [facility] [address] [place] [address] UA With Cult Reflexon 2019 Bacteria LM Ql (Urine sed) TRACE Normal Trace [facility] Comment on above: Performed By: #### 2 [id number] #### [facility] [address] [place] [address] Bilirubin Ql (U) Negative Normal Negative [facility] Comment on above: Performed By: #### 2 [id number] #### [facility] [address] [place] [address] Clarity (U) CLEAR Normal Clear [facility] Comment on above: Performed By: #### 2 [id number] #### [facility] [address] [place] [address] Color (U) YELLOW Normal Yellow [facility] Comment on above: Performed By: #### 2 [id number] #### [facility] [address] [place] [address] Crystals LM Ql (Urine sed) Present Normal [facility] Comment on above: Performed By: #### 2 [id number] #### [facility] [address] [place] [address] Epithelial cells.squamous LM.HPF (Urine sed) [#/Area] 3-4 Normal 0-2 [facility] Comment on above: Performed By: #### 2 [id number] #### [facility] [address] [place] [address] Glucose Test strip (U) [Mass/Vol] Negative Normal Negative [facility] Comment on above: Performed By: #### 2 [id number] #### [facility] [address] [place] [address] Hemoglobin Ql (U) TRACE Abnormal Negative [facility] Comment on above: Performed By: #### 2 [id number] #### [facility] [address] [place] [address] Ketones (U) [Mass/Vol] Negative Normal Negative [facility] Comment on above: Performed By: #### 2 [id number] #### [facility] [address] [place] [address] [place].plasma/Lithi um.RBC (Bld) [Mass ratio] 0-3 Normal 0-3 [facility] Comment on above: Performed By: #### 2 [id number] #### [facility] [address] [place] [address] Nitrite Ql (U) Negative Normal Negative [facility] Comment on above: Performed By: #### 2 [id number] #### [facility] [address] [place] [address] pH (U) 6.5 [pH] Invalid Interpretation Code 5.0-9.0 [facility] [place] Comment on above: Performed By: #### 2 [id number] #### [facility] [address] [place] [address] Protein (U) [Mass/Vol] Negative Normal Negative [facility] Comment on above: Performed By: #### 2 [id number] #### [facility] [address] [place] [address] Specific gravity (U) [Rel density] 1.025 Invalid Interpretation Code 1.005-1.030 [facility] Comment on above: Performed By: #### 2 [id number] #### [facility] [address] [place] [address] UA Spec Desc Clean Catch Normal [facility] Comment on above: Performed By: #### 2 [id number] #### [facility] [address] [place] [address] Urobilinogen Qn (U) 0.2 {Arnie'U}/dL Normal 0.0-1.0 [facility] Comment on above: Performed By: #### 2 [id number] #### [facility] [address] [place] [address] WBC Auto Ql (U) Negative Normal Negative [facility] Comment on above: Performed By: #### 2 [id number] #### [facility] [address] [place] [address] WBC LM.HPF (Urine sed) [#/Area] 0-5 Normal 0-5 [facility] Comment on above: Performed By: #### 2 [id number] #### [facility] [address] [place] [address] US Abdomen, Limitedon 2019 US Abdomen, Limited [...] M.D. Transcribed by: OLGA Technologist: RENETTA Kaplan [facility] eGFRon 04-19-2020 GFR/1.73 sq M.predicted among blacks MDRD (S/P/Bld) [Vol rate/Area] mL/min/{1.73_m2} Normal >=59 [facility] Comment on above: Order Comment: Order added by Discern Expert. Result Comment: eGFR is race adjusted. AA=. Performed By: #### 2 [id number] #### [facility] [address] [place] [address] GFR/1.73 sq M.predicted among non-blacks MDRD (S/P/Bld) [Vol rate/Area] mL/min/{1.73_m2} Normal >=59 [facility] Comment on above: Order Comment: Order added by Discern Expert. Result Comment: Senior Quality Methods Specialist bib kidney disease could be indicated at eGFR's of less than 60 mL/min/1.73m2. Kidney failure is indicated at less than 15 mL/min/1.73m2. Performed By: #### 2 [id number] #### [facility] [address] [place] [address] Encounters Encounter Date Encounter Type Care Provider Facility Start: 01-13-2024 End: 01-13-2024 ambulatory Harley Maldonado MD Facility: [facility] Start: 12-23-2023 End: 12-23-2023 ambulatory Harley Maldonado MD Facility:[facility] Start: 11-25-2023 End: 11-25-2023 ambulatory Harley Maldonado MD Facility:[facility] Start: 10-21-2023 End: 10-21-2023 ambulatory LEWIS SEWELL Not Available Start: 09-09-2023 End: 09-09-2023 ambulatory FLYNN BLAKE Not Available Start: 08-22-2023 End: 08-22-2023 ambulatory FLYNN BLAKE Not Available Start: 08-08-2023 Bamboo flowsmena ledesma MD Work Phone: [facility] Start: 08-08-2023 Brandyn ledesma MD Work Phone: [...] DERM [address] [place] [id number] My Singh MD [address] [place], [place] [id number] [facility] Start: 08-22-2023 End: 08-22-2023 Patient encounter procedure 08/22/2023 11:50 AM EST Office Visit [facility] [address] [place] [address] Flynn Archibald, DO [address] [place] [address] [place] [address] [facility] Payers Date Payer Category Payer Unknown [id number] 1993 Unknown [id number] 2.16.84 [id number] 1993 Unknown [id number] 2.16.84 0.1.273852.3.579.2.593 1993 Unknown [id number] 2.16.84 0.1.941131.3.579.2.593 1993 Unknown [id number] 2.16.84 0.1.662462.3.579.2.593 1993 Unknown [id number] 2.16.84 0.1.706254.3.579.2.593 1993 Unknown [id number] 2.16.84 0.1.828896.3.579.2.1259 1993 Unknown [id number] 2.16.84 0.1.693205.3.579.2.1259 1993 Unknown [id number] 2.16.84 0.1.801144.3.579.2.1259 1993 Unknown [id number] 2.16.84 0.1.914627.3.579.2.1259 1993 Unknown [id number] 2.16. 840.1.306917.3.579.2.196 1993 Unknown [id number] 2.16. [id number] 1993 Unknown [id number] 2.16. 840.1.195590.3.579.2.196 1959 Unknown [id number] Social History Date Type Detail Facility Tobacco smoking stat [facility] Tobacco smoking consumption unknown [facility] Start: 1995 Sex Assigned At Not on file [facility] Start: 08-08-2023 Gender identity Not on file [facility] Start: 08-08-2023 Tobacco smoking stat [facility] Never smoked tobacco [facility] Start: 08-08-2023 Tobacco use and exposure [...] year (follow up) documented in this encounter [facility] Consultation note 07-18-2021 Note [...] to proceed. CC: Dr. Alon Weber [facility] Consultation note 07-18-2021 Note Date & [...] like to proceed. CC: Dr. Alon Weber [facility] Signed and Approved by: DR KAASH MARTINEZ . 07/25/2021 08:02:00 [facility] Clinical Note 02-28-2021 Note Date & Type Note Facility 02-28-2021 Note Infectious Disease COVID-19: How to Protect Yourself and Others Know how it spreads ? There is currently no vaccine to prevent coronavirus disease 2019 (COVID-19). ? The best way to prevent illness is to avoid being exposed to this virus. ? The virus is thought to spread mainly from jhrlwu-jl-lvlzru. ? Between people who are in close [...] are not readily available, use a hand powerhouse laborer that contains at least 60% alcohol. Cover [...] at higher risk of getting very sick.www.cdc.gov/coronavirus/2019-ncov/n rzd-appcv-npuzunuhppl/carfcd-lg-goneqb-r isk.html Cover your mouth and nose with [...] available, clean your hands with a hand powerhouse laborer that contains at least 60% alcohol. Clean and disinfect ? Clean AND disinfect frequently touched surfaces daily. This includes tables, doorknobs, light switches, countertops, handles, desks, phones, keyboards, toilets, faucets, and sinks. www.cdc.gov/coronavirus/2019-ncov/preven g-qfgtimf-cite/noldvbhpdiuy-pcyz-gicl.ht ml ? If surfaces are dirty, clean [...] 10/06/2019 Document Revised: 12/31/2019 Document Reviewed: 12/31/2019 [employer] Patient Education ? 2019 [employer]. COVID-19 Frequently Asked Questions COVID-19 (coronavirus disease) is an infection that is caused by a large family of viruses. Some viruses cause illness in people and others cause illness in animals like camels, cats, and bats. In some cases, the viruses that cause illness in animals can spread to humans. Where did the coronavirus come from? In May 2019, [place] told the World Health Organization (WHO) of several cases of lung disease (human respiratory illness). These cases were linked to an open seafood and livestock market in the city of [facility]. The link to the seafood and [...] naming World Health Organization (WHO): www.who.int/emergencies/diseases/novel-c oronavirus-2019/technical-guidance/joe moorea-ymr-unwebjiovlb (more content not included)... [facility] History and physical note 05-05-2020 Note Date & Type Note Facility 05-05-2020 Note [id number] #1.00CD:127 [facility] History and physical note 05-02-2020 Note Date & Type Note Facility 05-02-2020 Note [id number] #1.00CD:127 [facility] Evaluation note Note Date & Type Note [...] section and content) DATE CREATED AUTHOR 03/05/2021 [facility] DATE CREATED AUTHOR AUTHOR'S ORGANIZ ATION 04/10/2021 [facility] DATE CREATED AUTHOR AUTHOR'S ORGANIZ ATION 07/02/2022 [facility] DATE CREATED AUTHOR AUTHOR'S ORGANIZ ATION 10/21/2023 [facility] DATE CREATED AUTHOR AUTHOR'S ORGANIZ ATION 01/18/2024 [facility] Reason for Visit (unrecogniz ed section [...] BE BASED ON THE PRIMARY CLINICAL RECORDS. [facility]. provides no warranty or guarantee of the accuracy or completeness of information in this document.
--- NOTE | 2024-01-28 13:59 | PM.PRESUREVA ---
History of Present Illness History of Present Illness Chief complaint: pain due to hardware Narrative: Patient presents for preadmission testing. The patient states she has had several surgeries on her left foot and has been having constant pain after standing for long hours at work. She denies any new injury or trauma, numbness, tingling, weakness, or any other complaints. She states she does take ibuprofen which gives her minimal relief. Review of Systems ROS Narrative REVIEW OF SYSTEMS: Negative except as stated in HPI, ten or more systems reviewed. Constitutional: No fever, chills, weakness ENT: No sore throat or epistaxis Cardiovascular: No edema, chest pain, palpitations, or activity intolerance Respiratory: No shortness of breath, cough, or wheezing Gastrointestinal: No abdominal pain, constipation, diarrhea, or vomiting Genitourinary: No dysuria or hematuria Neurological: No numbness, tingling, weakness, or headache Psychiatric: No mood changes [facility] Medical History (Updated 01/28/24 @ 14:04 by Cherie Cuevas NP) Pain of joint of left ankle and foot ?M25.572 - Pain in left ankle and joints of left foot (ICD-10) Primary osteoarthritis, left ankle and foot ?M19.072 - Primary osteoarthritis, left ankle and foot (ICD-10) Painful orthopaedic hardware ?T84.84XA - Pain due to internal orthopedic prosthetic devices, implants and grafts, initial encounter (ICD-10) Insomnia ?G47.00 - Insomnia, unspecified (ICD-10) PTSD (post-traumatic stress disorder) ?F43.10 - Post-traumatic stress disorder, unspecified (ICD-10) Panic attacks ?F41.0 - Panic disorder [episodic paroxysmal anxiety] (ICD-10) Depression ?F32.A - Depression, unspecified (ICD-10) Anxiety ?F41.9 - Anxiety disorder, unspecified (ICD-10) COVID-19 ?U07.1 - COVID-19 (ICD-10) Migraine ?G43.909 - Migraine, unspecified, not intractable, without status migrainosus (ICD-10) Endometriosis ?N80.9 - Endometriosis, unspecified (ICD-10) Pelvic pain ?R10.2 - Pelvic and perineal pain (ICD-10) Heart murmur ?R01.1 - Cardiac murmur, unspecified (ICD-10) Hyperthyroidism ?E05.90 - Thyrotoxicosis, unspecified without thyrotoxic crisis or storm (ICD-10) Postoperative nausea and vomiting ?R11.2 - Nausea with vomiting, unspecified (ICD-10) ?Z98.890 - Other specified postprocedural states (ICD-10) Surgical History (Updated 01/28/24 @ 13:46 by Cherie Cuevas NP) S/P epidural steroid injection ?Z92.241 - Personal history of systemic steroid therapy (ICD-10) H/O laparoscopy (10/11/23) ?Z98.890 - Other specified postprocedural states (ICD-10) History of cholecystectomy ?Z90.49 - Acquired absence of other specified parts of digestive tract (ICD-10) History of laparoscopy ?Z98.890 - Other specified postprocedural states (ICD-10) History of section ?Z98.891 - History of uterine scar from previous surgery (ICD-10) History of ankle surgery ?Z98.890 - Other specified postprocedural states (ICD-10) History of ankle surgery ?Z98.890 - Other specified postprocedural states (ICD-10) History of ankle surgery ?Z98.890 - Other specified postprocedural states (ICD-10) Family History Other Family history of breast cancer Family history of hypertension Family history of leukemia Family history of lung cancer Social History Within the past year, how often did you have a drink containing alcohol: monthly or less Smoking status: Never smoker Non-prescribed substance use: denies use 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 Highest level of school completed/degree received: high school graduate Meds Home Medications and Allergies Home Medications ?Medication ?Instructions ?Recorded ?Confirmed ?Type drospirenone 3 mg-ethinyl 1 tab PO DAILY 07/01/23 01/28/24 History estradiol 0.03 mg tablet hydroxyzine pamoate 50 mg capsule 50 mg PO Q6H PRN nausea and 07/01/23 01/28/24 History vomiting venlafaxine 150 mg 150 mg PO DAILY 07/01/23 01/28/24 History capsule,extended release 24 hr valacyclovir 500 mg tablet 500 mg PO Q12H PRN skin breakout 10/02/23 01/28/24 History ibuprofen 800 mg tablet 800 mg PO Q8H PRN pain 14 days #40 10/11/23 01/28/24 Rx tabs prazosin 1 mg capsule 1 mg PO QPM 11/25/23 01/28/24 History Allergies Allergy/AdvReac Type Severity Reaction Status Date / Time Penicillins Allergy Hives Verified 01/28/24 13:43 Sulfa (Sulfonamide Allergy Hives Verified 01/28/24 13:43 Antibiotics) hydrocodone AdvReac Intermediate Hives Verified 01/28/24 13:43 oxycodone AdvReac Intermediate Hives Verified 01/28/24 13:43 Exam Narrative Exam Narrative: Constitutional: Awake, alert, comfortable, well-appearing, nontoxic, interactive, vital signs as charted Head: Normocephalic, atraumatic Neck: Supple, normal appearance, normal range of motion, no meningeal signs, no lymphadenopathy Respiratory: No respiratory distress, breath sounds clear Cardiovascular: Regular rate and rhythm, strong and regular heart tones Musculoskeletal: Normal gait, no swelling or edema, proximal left foot tenderness along the lateral aspect, good capillary refill, sensation intact Skin: No rashes or induration, no lesions, only visible skin inspected Neuro: No neurological deficits, normal sensation Psychiatric: Oriented ?3, normal affect Assessment and Plan Assessment and Plan (1) Painful orthopaedic hardware: (2) Primary osteoarthritis, left ankle and foot: (3) Pain of joint of left ankle and foot: Plan Hardware removal left foot scheduled with Dr. Reza February 03, 2024
== END 2024-01-28 13:28 | disposition home or self-care (01) ==
LOC: PST 13:28
PROVIDERS: PCP Family Medicine; Visit Provider Podiatrist Foot & Ankle Surgery
DX: Z01.818 Encounter for other preprocedural examination (principal); T84.84XA Pain due to internal orthopedic prosthetic devices, implants and grafts, initial encounter
CPT/HCPCS: G0463

== ENCOUNTER 2024-02-03 06:19 | Day surgery (SDC) | payer BC, SELFPAY ==
[2024-01-28 13:53] VITALS: BP 124/85; PULSE 89; TEMP 36.3; O2SAT 98; BMI 23.4
--- OUTSIDE RECORDS SUMMARY | 2024-02-03 06:22 | XMS_ITS | CCD ---
Author Organization [facility] Care Team Providers Care Systems Analysis Manager Name Role Phone MICHELLE, DR AKASH Murray [...] (2 sources) HYDROcodone Drug Allergy 5 [facility] (2 sources) oxyCODONE Drug Allergy 5 [facility] (2 sources) Penicillins Drug allergy (disorder) 5 [facility] (3 sources) Acetaminophen / HYDROcodone Drug Allergy 4 Unknown [facility] (3 sources) HYDROcodone Drug Allergy 4 Hives [facility] Work Phone: (3 sources) oxyCODONE Drug Allergy 4 [facility] (3 sources) Penicillin G Drug Allergy 4 [facility] (3 sources) Penicillin G sodium Allergy to substance 4 Rash [facility] (3 sources) Penicillins Drug Allergy [address] 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] Onset: 09-05-2021 Episodic Other upper respiratory infections (1 source) Acute upper respiratory infection, unspecified; Translations: [ACUTE UP RESPIRATORY INFECTION UNS] Onset: 09-05-2021 Episodic Unclassified (1 source) COUGH, UNSPECIFIED; Translations: [COUGH, UNSPECIFIED] Onset: 09-03-2021 Results Test Name Value Interpretation Reference Range Facility Covid-19 PCR ([facility])on 08-22 SARS-CoV-2 (COVID-19) RNA MARY+probe Ql (Unsp spec) Not detected Normal NOT DETECTED [facility] Comment on above: Result Comment: This test is not yet approved or cleared by the [place] FDA. When there are no FDA-approved or cleared tests available, and other criteria are met, FDA can make tests available under an emergency access mechanism called an Emergency Use Authorization (EUA). The EUA for this test is supported by the [employer] of Health and Human Service's (HHS's) declaration [...] SARS-CoV-2. Performed By: #### C [facility] #### [facility] [address] [place] [address] Dr. Karlos Augustin GROUP A STREP CULTUREon 08-22 S. pyogenes Ag Ql (Unsp spec) Culture Observations: NEGATIVE FOR GROUP A STREPTOCOCCUS. Normal [facility] Comment on above: Performed By: #### S ДМИТРИЙ GRASTCX #### [facility] [address] [place] [address] Dr. Karlos Augustin INFLUENZA A AND B AGon 09-03 INFLUANEGH SEE BELOW Normal [facility] Comment on above: Result Comment: Nega tive for Flu A protein angiten. Infection due to Flu A cannot be ruled out. Flu A angiten in the sample may be below the detection limit of the test. Performed By: #### I NFLUAB #### [facility] [address] [place] [address] Dr. Karlos Augustin INFLUBNEGH SEE BELOW Normal [facility] Comment on above: Result Comment: Nega tive for Flu B protein antigen. Infection due to Flu B cannot be ruled out. Flu B antigen in the sample may be below the detection limit of the test. Performed By: #### I NFLUAB #### [facility] [address] [place] [address] Dr. Karlos Augustin INFLUENZA A AG Negative Normal NEGATIVE SEE COMMENT [facility] Comment on above: Performed By: #### I NFLUAB #### [facility] [address] [place] [address] Dr. Karlos Augustin INFLUENZA B AG Negative Normal NEGATIVE SEE COMMENT [facility] Comment on above: Performed By: #### I NFLUAB #### [facility] [address] [place] [address] Dr. Karlos Augustin INTERNAL CONTROLS Within Normal Limits Normal Wi thin Normal Limits [facility] Comment on above: Performed By: #### I NFLUAB #### [facility] [address] [place] [address] Dr. Karlos Augustin STREPT SCREENon 09-03-2021 STREP SCREEN A Negative Normal NEGATIVE [facility] Comment on above: Performed By: #### S ДМИТРИЙ GRASTCX #### [facility] [address] [place] [address] Dr. Karlos Augustin PREG HCG QUALon 08-01-2021 , QUAL Negative Normal NEGATIVE [facility] Comment on above: Performed By: #### P REG #### [facility] [address] [address] [address] Karlos Augustin PREG HCG QUALon 07-04-2021 , QUAL Negative Normal NEGATIVE [facility] Comment on above: Performed By: #### P REG #### [facility] [address] [facility]BDOMEN AND PELVIS W IV CONTRAST [facility] Department of Radiology [address] [place] [address] Patient Name: RAJIV TOVAR : 1995 Sex: F Age: Race: White Pt. Location: [facility] Patient Status: D Ordered Date: 03/21/2021 4:00:00 PM Completed Date: 04/05/2021 03:49 PM Requesting Provider: ДМИТРИЙ CALLAHAN Attending Provider: ДМИТРИЙ CALLAHAN Report Copy To: ALON WEBER Signs & Symptoms: R10.31 Right lower quadrant pain I10 History: Josefa Is patient on meds for HTN or DM? 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 Per [employer] for CPT 48057 Ref#[id number] Med Nec-Passed *SLA Comments: Exam: CT ABDOMEN [...] Electronically signed: Noemy Stanley M.D.. Transcribed by: [email or web address], User Resident: Electronically Signed by: NOEMY STANLEY @ 04/07/2021 01:25 PM Normal The [facility] CHEST 2 [facility] 03-21-2021 [facility] CHEST 2 [facility] Department of Radiology [address] [place] [id number] Patient Name: RAJIV TOVAR : 1995 Sex: F Age: Race: White Pt. Location: [facility] Patient Status: D Ordered Date: 03/21/2021 2:25:00 PM Completed Date: 03/21/2021 02:22 PM Requesting Provider: ДМИТРИЙ CALLAHAN Attending Provider: Report Copy To: Signs & Symptoms: R07.81 Pleurodynia I10 History: Josefa Comments: right ribs pain Exam: [facility] CHEST 2 VWS [facility] CHEST 2 VWS 03/21/2021 2:22 PM [...] disease Electronically signed: Cyril Olivo. Transcribed by: [email or web address], User Resident: Electronically Signed by: CYRIL OLIVO @ 03/22/2021 02:39 PM Normal The [facility] Comment on above: Order Comment: right ribs pain Coding Summary.on 03-03-2021 Coding Summary. [id number] G h0bWw+PGhlYWQ+RR1YDOE aC03kdFSrtT6WU5wNRR5O DBGFMFLIHW1CQO8aoLJ7M NyxT5VuwrVi QuwqoWCrOP43UEf0NIG8o FyxMGhwgF0aeBZgM5q7Cc UeXR94rU87IPonEGHmHzL 3LjZpbjsgbWFy Z4vbZnVkaVPsRoy+PHRhY mxlIHdpZHRoPScxMDAlJy UuhFclBW8bBn9yIADaINW vbGxhcHNlOiBj n9ddLKSxTDpeCT6ayDogZ 2JszRC2IXUta1e6Ga23wL I+CTDiIOG5wXhuGKutw31 8ViLei5dfLYE3 kLQtAJbxIDX8R96cr2W5E ZDcQCCuBHB0fAP0jK6jaA ylyyvlZ9MuwNFgBfA6YNS 3cWRzeQ0ifLbz lrpvsZ4eDhv+P79QVE5RM JAAZA1XAfl5K8FgGexfeV I+TG55MDCmYM76qLWkeYE ip0gpxMx2BpKl SLQtIBT4rTknDIvab5DnM PWeK06roYPml1Y5WVHtqV kdaPBjTiIepYX0jL1iSQc hsoeqg0wsqinb Mvdpx1pglb10kT22X24jU DbrQHIdRBC1CFSeBJEogL gmkm5ldB3bFz4+QSepk6m zs5nlvQf4RcLy UYRwnzFyvDjdUDS6x2KdW f91I8WugIeks9OpNua0an 49fYHoq3O2zHS5EBhcPKD dbO3qONvdTmE5 YRSuZmDuhQ36aIWaQTobZ x6czCfnuVjmMJ3jQUJdbd apRJGfkE7xQJAngJBdsHk bHT7vJEHkwgvm g611TvQxUWJ2VMBguCDlY 9VomS0xQrQtZCReGOKtN7 ItfTApPFboW947LXkxBkG 4TKTxzpQlA4Ax SSTvjAnpAmN2q2T2Li2Mv 0ZglvvdFYI2HRkdUVS5Vp JaDdGeJyA7D9ZlUun5FFE grEgrHA9lM3Yx KIOwueunhmrclEB9UVXwM IQrbU06wNGwPRuvMe4qy1 E9e423CGToLSEngP76Aa0 udDogMTBwdCBU lH0xubmdt4hobigoPaXaY POuRHo3PDi4QYLwhInmXs LiBQP1YoP0IJG7tTSmzU6 xhGnvoiwobO3z Oyc+M55mbF4lYWK6GMG9y dyrZAAiokQjTR05JI20V5 RyPjwvdGFibGU+PGRpdiB rrCljAV7oUwOg b9vrv6RgEZqmF8McFPGpQ PbtHtw1DKCrHPV0xHW0hS 3gUUNcORsjk2A6cXT9O0L pkhEopm5vf6yi HZMzATynJ11hvZSob3V8G JAqyBQ4EEWlpGkiUvAilZ 93Oyc+JLPybGcat2KbQie lp2acb6gbmFk7 WdPpOVIsicXgpFnkHPD8f 7NuRn21N08yPNakVCHvSZ AaTQAqVDVhoOxtge6dyE4 wIi8+PGNvbCB3 zIH3hU8pYPOhLoC0QOqpV 749FzKdxDClQpvdk2uii3 gvcNt8BrEaOPOzodMgjXb sYFN4b7OdIr06 R14kBQbcDBTcQEUqAHAjT CHjsHtlvp6izR0cRv9+PC 3oj5glez38mX78dEK+PHR uLPH4mQdjFStg PYIebX1aOBisAwY8RZGnP gJaeZ88mCEzBHeeFd2kqX wqlJrmXK3dVISzltlvc97 1OsPsb3myRRZy qFZsKKprJPL8E52mt0T1J XRxSWTkYIZ9xTJ6vH6cjM lnbjogbGVmdDsgdmVydGl uOYgcBIoeL284 IHRvcDsnPlBhdGllbnQgT gOmHSt0X5ZqTpn8QLQrrF nwOF3iaXWgICwoPu5ojEm eoZrlPB2qUFAc quecg486PoJhp8elYPNam IFfKVpdQWE9A81tb9U3MT UyNYDmBDG6iFN0xX9ebKv nbjogbGVmdDsg zdAxvQzyLTtbKAfdE230T HRvcDsnPkJpcnRoIERhdG E2WR26MB06tOArs5L3lNL 2E2HwBUFfjfwg zfjavCC7CIUcAMWgsC89Q g2jxWqlPq7uLRCtJCD6HE RxuDCmM3QfaP2cAgOfZBH jZUFqE2FjtJYl BDwnP747WYlpExV3LPEdx gUiZ2EeXSBuzQynTnL9w6 E9Bg4UN3B8MQ45IN85wSG ux8D0iAK1Z8Hd LKGckqyqveiaySZ8OARrI XQgiW14Wo2jwAuxIa7yQS UaEAT2HFJqdHSiG2PkwR9 yOiAjMDAwMDAw W5FmnBOmELttT451NZipA pJ1NCUcipKlW2OyKEPrcS gcEhM5d2Y7Fp7QPSs3VL5 4WB31mTRjd9Y6 zPI1Q0TlBYYhfyyiucmul RX3VFEqDLQdrP73Mi1viK dpHp1cQWClPAN9KHMahLB oK6SzlL0dZiJk QFDdPFTxB6KwsCXfWBmyU 722UAavUgF0KQQknjDuS1 AqWJPwgXckCwZ0s3B9Yk7 QNPNtQI64VXW2 vDO5ET62KT37A4ZnCtdzn GFibGU+PHRhYmxlIHdpZH RoPScxMDAlJyBzdHlsZT0 jNl9qLUWmWERj cNyjeQPhByZsd2qmADBeV ZbrXP4qaZwqN1SwhEY6DJ Vfi1l3Ym30B50iX2DdkMC +UANomQN2lMY9 fN4tPiHxZbO9ALpwX428C qJamHGlUoerh1lct1tetZ m3ByW0WHPtlfLdlEzrYIO 9x0XqPh96G97y IHdpZHRoPSIxNSUiIHZhb Fcjwt0uiT2gFl2+PGNvbC P6qCG7iG5jAiDuUuC9WIk jB343DlRiaERd Hbwtx6ljm9attUj7GwMcV PCdrcQulRyhHPJ1s6TuFl 45Y6YwvAmnq6UxCiz4dt5 5oIDzv8W5vXW8 C0OuDVYhmieerMHioNloJ D1kJLLfjsplEGOwgE5zVP VbI2j2GmSwIvM9COthQ2Y hkxD4DIKapXCz VGtsZUU7S02te4S4IRZzB PMaLXE6rYA8jF8xnCdcdl ogbGVmdDsgdmVydGljYWw qBDgcU228DTSv qKgpEVKfcQ8aVUXlqXPbe GeqBC8aRTBwdkngEeIJTX GWJTMVVOgXC9M1O0OaPwy 4PMHdcShmDP2x vLKzDZavBg1gnSaknEocC N3tOMDsaqkfGFLhkH1iKP JoeERotZjsUU0uOJApexz ko744HlAhERY4 SJJbbYCwX6UwoN3jBzEjK HMjBIHrT3SybJYoOAtqR2 24AOuhElZ7ACUgkqHrI5A sLWFsaWduOiB0 m8E4Bq3zTQ0rIl6jWRomY E87LX77wIZlu5G3hYD0P6 RsGPFwpzptmkcpiUW0KNO cJPLmqN54uBLs XLptAt8fm8L4b672CPCeI ZKddO68Pk3daMekMCMiuH AOhQ6yduozk4fmsorhJeD sCEZeUZe1BXu3 TJZqnPcaUpNnHXL0JjS4B HC7iCDqmA7umGjaudzyaA 9wOyc+XgomZMKjsoZ0F0S fEds0ABIcmHnr XJ1njHIzSZvwZp5euYtkd JsrPL5hXADtfmetHYVttL 0cSTZvkRUpkMtjDC7zUMJ lefile273UeAd GFB1ODQubEBmG0AuhA6mT wYvQWLxCQAyJ8VmsSOwVM mvG650KNxeRfM2KMSopmN pC0VxSGPmgBju QnO5g5Y9Px9CFF4khGS5J 2SkMzv6QWPrjOsgWC4eyW UmIQhqPl3qlVisfKahYD7 wNTBpbjtwYWRk iA0oVBVfuFKaeVqoKR7lK ABgazxll039LjSvKXB4NT CtxOAmY0AhsR5pMyYwEQR xXHLyM8ElpNFh WQixR835DOmzToV3ZGLza wJvE7DbZJFhiMddDfV9n8 Q4Yo2OkPTvV6DqK4t2S6A kPjwvdHI+PC90 NLXdJE76uCUqoBNho5njb Yp7YrEiSADeJXI9rOsjIT kyf8NvLNDkK77oeLDfq9L 6IGNvbGxhcHNl CnLvrVN2xX2pETkjcbhqe 9ifoetsDichx2rwoz21aF 58M30qKFhjFEKiDGCnNJL sVBBsnYcrqh3l hY2cGz0+MUJohER2rWT1y C0kRiYrMqD4NByuO156Wi CefWDpCyokb8oef6skkZt 9IjIwJSIgdmFs cLcwWZU7d7KgVn34K33vL HdpZHRoPSIyMCUiIHZhbG vkjq2wgF0xZt4+EX7nd7t hrp56pK52gRF+ KAYdUHC7eRxnKNiwONUgq Q5zBEwhAmP5LHHwHyCzvG 34wLYwDLzcSd8wuWdnfFp iLM2sLXJjbays b826BuWoi2waTRKcaLQfK MkcVTM7Y58rd2Z8NSQoMZ YgWJL4iMH1vR2wiKuwpat gbGVmdDsgdmVy tMsgISaiSRljQ357ZYMle NpuSqRmwIYyT2mgrtEIZK 1lOjwvdGQ+OSUcNGC5oPz yMCuwZZPxhY9k KCLiX2t1OpGjWwM1FXvmV 1BwebB6MVNgfPMcGERhmA THeV7dgkkek8sysgxlLrW iRAEfDPy5FLt1 QQGxjCeeYlDoZOP1XhX6Q XV2fGYrgX0yzVmqupuqaY 9wOyc+RklOOjwvdGQ+PHR pSRS3aQtmAQxl NFOcdD2uNEMyR6a0OpFqH dA7XVbvB9VjevR6ZMZnkI VvSNEnzRRQcV8yeoeik7c vcjogIzAwMDAw MQu4PMt7SNFzaSghZbHkV KU3NwT1SCI4lQOusY2mdY njvhvtoP3rIjy+TVJOOjw vdGQ+PHRkIHN0 aKkrMVqvUTPpyN4gPCLwM 0n9YfEzPlL6CVzjH6Rkij N2IWUtxZEuDFJiaMRFhL2 ueptrn4kdewjy BcLvNPItTVm4BTo1ODPor DleAiJfXJB0WqE9TBK4dI HbsX2gbLlecnethG0fTzk +MZJ1ENA6OQ58 WT47Q7RsZlbufVEywLQ+P HRhYmxlIHdpZHRoPScxMD QyGsUdaEnsLP0fCb7tJCA yLWNvbGxhcHNl OiBj (more content not included)... Normal [facility] Auto Diffon 02-28-2021 Basophils/100 WBC (Bld) 0.4 % Normal 0.0-2.0 [facility] Comment on above: Order Comment: Order Added by Discern Expert. Performed By: #### 2 835043, 8234331, 76599971, 87579452, 75705929, 24191918, 3285786, 5125051, 5379980, 8560100 ####[address] [place] [address] Basophils/Leukocytes Auto (Bld) [Pure # fraction] 0.0 E9/L Normal 0.0-0.2 [facility] Comment on above: Order Comment: Order Added by Discern Expert. Performed By: #### 2 992065, 5654980, 89630267, 92603821, 14696670, 14403783, 0024336, 2914953, 0943363, 7092905 ####[address] [place] [address] Eosinophils/100 WBC (Bld) 0.6 % Normal 0.0-8.0 [facility] Comment on above: Order Comment: Order Added by Discern Expert. Performed By: #### 2 845380, 3582186, 80482947, 04728065, 21313383, 24212077, 5568481, 2364219, 7247849, 1244387 ####[address] [address] Eosinophils/Leukocyt es Auto (Bld) [Pure # fraction] 0.0 E9/L Normal 0.0-0.5 [facility] Comment on above: Order Comment: Order Added by Discern Expert. Performed By: #### 2 857731, 1324821, 83181576, 03074090, 84573940, 60022494, 7330411, 6491773, 8664793, 9500019 ####[address] [address] Lymphocytes/100 WBC (Bld) 7.9 % Low 14.0-50.0 [facility] Comment on above: Order Comment: Order Added by Discern Expert. Performed By: #### 2 744677, 7219850, 33930014, 70526386, 49408246, 51799776, 6771720, 3357801, 3449883, 0769233 ####[address] [place] [address] Lymphocytes/Leukocyt es Auto (Bld) [Pure # fraction] 0.4 E9/L Low 1.0-4.0 [facility] Comment on above: Order Comment: Order Added by Discern Expert. Performed By: #### 2 556690, 1683016, 04199091, 15858094, 57045028, 51946350, 7976015, 0603882, 1262204, 6125017 ####[address] [place] [address] Monocytes/100 WBC (Bld) 5.5 % Normal 4.0-14.0 [facility] Comment on above: Order Comment: Order Added by Discern Expert. Performed By: #### 2 691066, 1544212, 44574546, 70203356, 53239455, 01385780, 2340794, 3607809, 1518929, 3169329 ####[address] [address] Monocytes/Leukocytes Auto (Bld) [Pure # fraction] 0.3 E9/L Normal 0.2-1.0 [facility] Comment on above: Order Comment: Order Added by Discern Expert. Performed By: #### 2 587735, 7342426, 74264076, 69830874, 22039396, 80506624, 4247500, 4448378, 3499212, 9424300 ####[address] [place] [address] Neutrophils/100 WBC (Bld) 85.6 % High 36.0-75.0 [facility] Comment on above: Order Comment: Order Added by Discern Expert. Performed By: #### 2 840435, 0442832, 67960004, 83795918, 42199199, 00736434, 8715686, 8991908, 2070020, 6901242 ####[address] [place] [address] Neutrophils/Leukocyt es Auto (Bld) [Pure # fraction] 4.5 E9/L Normal 2.0-7.5 [facility] Comment on above: Order Comment: Order Added by Discern Expert. Performed By: #### 2 066249, 1689103, 30617092, 34987459, 57231614, 33255692, 4752424, 1764529, 1090606, 2615587 ####[facility] [address] [place] [address] B hCG Qualon 02-28-2021 Beta hCG Ql Negative Normal [facility] Comment on above: Performed By: #### 2 367902, 9289106, 74335560, 69783506, 86537331, 40110944, 3589575, 1389779, 6238956, 9279006 ####[facility] [address] [place] [address] BMPon 02-28-2021 Creatinine [Mass/Vol] 0.7 mg/dL Normal 0.5-1.3 [facility] Comment on above: Performed By: #### 2 633794, 8770572, 50572156, 96984100, 05769038, 36395506, 0082052, 4936776, 3127944, 8927343 ####[facility] [address] [place] [address] Urea nitrogen [Mass/Vol] 9 mg/dL Normal 5-21 [facility] Comment on above: Performed By: #### 2 478961, 2084037, 89869233, 10731710, 91728602, 23769007, 0923103, 9645874, 1370812, 6951515 ####[facility] [address] [place] [address] Urea nitrogen/Creatinine [Mass ratio] 13 No Units Normal 10-20 [facility] Comment on above: Performed By: #### 2 891462, 6793530, 30897175, 16477259, 24196062, 41196086, 3434249, 6907920, 5432846, 9686021 ####[facility] [address] [place] [address] Anion gap [Moles/Vol] 14 mmol/L Normal 6-16 [facility] Comment on above: Performed By: #### 2 466984, 7228008, 89106023, 36431577, 10975800, 20727349, 0690826, 8839993, 8504285, 7815957 ####[facility] [address] [place] [address] Calcium [Mass/Vol] 8.5 mg/dL Low 8.9-11.1 [facility] Comment on above: Performed By: #### 2 754042, 1273714, 49509784, 31137600, 62956933, 71506138, 9395805, 7180958, 6899198, 3596232 ####[facility] [address] [place] [address] Chloride [Moles/Vol] 102 mmol/L Normal 101-111 [facility] Comment on above: Performed By: #### 2 797438, 2359056, 39815506, 16838729, 84426451, 11674773, 9383550, 2405331, 4602691, 9293091 ####[facility] [address] [place] [address] CO2 [Moles/Vol] 21 mmol/L Normal 21-31 [facility] Comment on above: Performed By: #### 2 374173, 8493645, 39834189, 63779808, 47844212, 39327152, 3733060, 3071257, 1212525, 0776931 ####[facility] [address] [place] [address] Glucose [Mass/Vol] 95 mg/dL Normal 55-199 [facility] Comment on above: Result Comment: If t his glucose result represents a fasting glucose, interpretation should refer to the following reference range: 55-99 mg/dL Performed By: #### 2 294317, 6977634, 25166119, 39689884, 29225539, 82116853, 6227177, 9713004, 6334279, 2621635 ####[facility] [address] [place] [address] Potassium [Moles/Vol] 3.6 mmol/L Normal 3.5-5.3 [facility] Comment on above: Performed By: #### 2 137483, 0262727, 48563896, 30236225, 50662630, 00482576, 0514944, 4068111, 0845830, 8948884 ####[facility] [address] [place] [address] Sodium [Moles/Vol] 133 mmol/L Low 135-145 [facility] Comment on above: Performed By: #### 2 671561, 4100894, 93909237, 77749551, 03657986, 35386186, 1808970, 6685628, 5159695, 7138657 ####[facility] [address] [place] [address] CBC w/ Auto Diffon Erythrocyte distribution width (RBC) [Ratio] 12.4 % Normal 10.9-14.2 [facility] Comment on above: Performed By: #### 2 209075, 5515458, 14940290, 39150936, 17016776, 45838352, 8018536, 3691858, 4338578, 8543522 ####[facility] [address] [place] [address] Hematocrit (Bld) [Volume fraction] 38.1 % Normal 34.0-46.0 [facility] Comment on above: Performed By: #### 2 582110, 7718890, 55345756, 36635179, 18209576, 58805853, 4345055, 9065683, 9039722, 3183724 ####[facility] [address] [place] [address] Hemoglobin (Bld) [Mass/Vol] 13.3 g/dL Normal 12.0-16.0 [facility] Comment on above: Performed By: #### 2 333808, 0577706, 58661874, 08411765, 29344601, 52012993, 0651714, 2636709, 8671335, 2404588 ####[address] [address] MCH (RBC) [Entitic mass] 31.7 pg Normal 27.0-34.0 [facility] Comment on above: Performed By: #### 2 325472, 2240878, 63084915, 60121406, 06662503, 95757356, 2741837, 3166582, 1961860, 2485871 ####[address] [address] MCHC (RBC) [Mass/Vol] 35.0 g/dL Normal 31.4-36.0 [facility] Comment on above: Performed By: #### 2 324797, 1684139, 38691229, 20552558, 68232041, 90197902, 9646126, 4449666, 1215184, 2484150 ####[address] [address] MCV (RBC) [Entitic vol] 90.8 fL Normal 80.0-100.0 [facility] Comment on above: Performed By: #### 2 479089, 3789967, 07101739, 01381568, 50872728, 50542062, 7729899, 9262315, 2250766, 9936694 ####[address] [address] Platelet mean volume (Bld) [Entitic vol] 10.0 fL Normal 6.4-10.8 [facility] Comment on above: Performed By: #### 2 523086, 7769780, 18187887, 56166914, 78344286, 17832657, 0965613, 7589363, 3662606, 0845425 ####[address] [address] Platelets (Bld) [#/Vol] 144.0 E9/L Low 150.0-500.0 [facility] Comment on above: Performed By: #### 2 295720, 0215798, 16678754, 99877499, 29301458, 62763124, 4747377, 8140825, 1859563, 8975798 ####[facility] [address] [place] [address] RBC (Bld) [#/Vol] 4.2 E12/L Low 4.3-5.9 [facility] Comment on above: Performed By: #### 2 274713, 6752923, 86216918, 80898627, 07434782, 24197651, 3060442, 1047958, 7979785, 1976745 ####[facility] [address] [place] [address] WBC corrected for nucl RBC Auto (Bld) [#/Vol] 5.3 E9/L Normal 4.0-11.0 [facility] Comment on above: Performed By: #### 2 880824, 9649510, 63989229, 32267252, 45184678, 22488375, 7456455, 8624554, 4726920, 5731791 ####[address] [place] [address] COVID-19 ([facility]on 02-28-2021 SARS-CoV-2 (COVID-19) RNA MARY+probe Ql (Unsp spec) Not detected Normal Not Detected [facility] Comment on above: Result Comment: This test result should be correlated with clinical presentations and medical history by a healthcare provider to determine its clinical significance. This assay was performed by a reverse transcriptase real-time polymerase chain reaction (rt PCR) method on the [employer] system. This test has been authorized only [...] or revoked sooner. Performed By: #### 2 [id number] #### [facility] [address] [place] [address] SARS-CoV-2 (COVID-19) RNA MARY+probe Ql (Unsp spec) Pass Normal Pass [facility] Comment on above: Performed By: #### 2 [id number] #### [facility] [address] [place] [address] Specimen source Nom (Unsp spec) Nasal Normal [facility] Comment on above: Performed By: #### 2 [id number] #### [facility] [address] [place] [address] Employed in Healthcare NO Normal [facility] Comment on above: Performed By: #### 2 [id number] #### [facility] [address] [place] [address] First Test Unknown Normal [facility] Comment on above: Performed By: #### 2 [id number] #### [facility] [address] [place] [address] Hospitalized? NO Normal [facility] Comment on above: Performed By: #### 2 [id number] #### [facility] [address] [place] [address] ICU NO [facility] Comment on above: Performed By: #### 2 [id number] #### [facility] [address] [place] [address] ? NO Normal [facility] Comment on above: Performed By: #### 2 [id number] #### [facility] [address] [place] [address] Resides in a Congregate Care Setting NO Normal [facility] Comment on above: Performed By: #### 2 [id number] #### [facility] [address] [place] [address] Symptomatic as defined by CDC YES Normal [facility] Comment on above: Performed By: #### 2 [id number] #### [facility] [address] [place] [address] Consent for Treatmenton Consent for Treatment [id number]:127 Normal [facility] D-Dimeron 02-28-2021 Fibrin D-dimer FEU (PPP) [Mass/Vol] 388 [id number] Normal 215-500 [facility] Comment on above: Result Comment: This [...] infections Liver cirrhosis Performed By: #### 2 659180, 2403457, 93296902, 57630381, 21921761, 09103560, 3053141, 7401615, 6670274, 5526490 ####[facility] [address] [place] [address] Discharge Instructionson Discharge Instructions [id number] 1.00CD:127 Normal [facility] ED Clinical Summaryon 2020 ED Clinical Summary [address] [address] ED Clinical Summary Person Information Name: RAJIV TOVAR/[facility] Age: 25 Years : 1995 Sex: Female Language: Ecuadorean PCP: Alon Weber MD Marital Status: Single [...] 02/28/2021 11:17:01 02/28/2021 11:17:01 02/28/2021 11:17:01 ADDRESS: [address] [place] [phone] [facility] DOC NOTES: MEDICAL INFORMATION: Prescriptions Given: Medications [...] Follow up: With: Address: When: Alon Tatelenin [facility] [facility], [place] [address] Business (1) In 3 days DIAGNOSIS: Chest pain; Viral URI Normal [facility] ED Note-Physicianon 02-29-20 ED Note-Physician Basic [...] hCG Qual CBC w/ Auto Diff COVID-19 ([facility]) D-Dimer ECG 12 Lead Adult ED Cardiac [...] Information Alon Weber In 3 days [address] [facility] [place] [place] [address]- Business (1) Additional Instructions: Patient Education COVID-19: How to Protect Yourself and Others - [facility] COVID-19 Frequently Asked Questions Upper Respiratory Infection, [...] Use, 01/30 (more content not included)... Normal [facility] Comment on above: Result Comment: Elec tronically Signed By: Laureano Phillip DO\.br\Date and Time Signed: 02/28/21 11:03 EDT ED Patient Summaryon 021 ED Patient Summary [address] [address] Patient Discharge Instructions Person Information Name: RAJIV TOVAR Age: 25 Years Arrival Date: 02/28/2021 09:10:34 Discharge Diagnosis: Chest pain; Viral URI Primary Care Physician: Alon Weber MD Provider Information Primary Provider: Laureano Phillip DO Advanced Philosophy Professor:None The exam and treatment you received in the Emergency Department were for an urgent problem and are not intended as complete care. It is important that you follow up with a doctor, nurse practitioner, or physician?s orthotics prosthetics assistant for ongoing care. If your symptoms [...] Follow-up Instructions: With: Address: When: Alon Gus [address] [place] [address], [place] [address] Business (1) In 3 days [...] opioids can be used to help relieve vgxhuebg-cg-lzcbov pain and are often prescribed following a [...] be struggling with addiction, tell your health emergency care tech and ask for guidance or (more content not included)... Normal [facility] Hep Func Panelon 02-28-2021 ALP [Catalytic activity/Vol] 52 Int._Unit/L Normal 21-98 [facility] Comment on above: Performed By: #### 2 230399, 2781208, 14734360, 88260775, 49038310, 10311044, 5294022, 9734494, 6551755, 0568318 ####[facility] [address] [place] [address] Albumin [Mass/Vol] 4.2 g/dL Normal 3.3-5.0 [facility] Comment on above: Performed By: #### 2 611767, 9069953, 01943923, 71568825, 35662252, 01092758, 6390257, 7091184, 0464809, 6134784 ####[facility] [address] [place] [address] Albumin/Globulin (S) [Mass conc ratio] 1.4 Normal 1.1-2.2 [facility] Comment on above: Performed By: #### 2 200284, 8047893, 63868496, 15158962, 32995329, 88603990, 0015611, 5330029, 5830824, 9322491 ####[address] [place] [address] ALT No additional P-5'-P [Catalytic activity/Vol] 48 Int._Unit/L High 6-46 [facility] Comment on above: Performed By: #### 2 060440, 0556914, 02172342, 50044152, 07488926, 15576582, 8930681, 1570926, 3059369, 8365745 ####[address] [place] [address]857 AST [Catalytic activity/Vol] 39 Int._Unit/L Normal 5-43 [facility] Comment on above: Performed By: #### 2 878073, 6988880, 25789080, 22293920, 12974232, 41305742, 8535991, 8704679, 4175458, 1821311 ####[address] [address] Bilirubin [Mass/Vol] 1.2 mg/dL High 0.0-1.1 [facility] Comment on above: Performed By: #### 2 973832, 7495438, 19641499, 51992231, 68577418, 32155285, 4065402, 2818006, 0744394, 9982279 ####[address] [place] [address] Bilirubin.direct [Mass/Vol] 0.2 mg/dL Normal 0.1-0.4 [facility] Comment on above: Performed By: #### 2 653102, 2610118, 30925425, 33260483, 82228735, 15929938, 3293469, 4642685, 4696935, 4825903 ####[address] [address] Bilirubin.indirect [Mass or moles/Vol] 1.0 mg/dL High 0.1-0.9 [facility] Comment on above: Performed By: #### 2 404798, 3827477, 70497043, 91190263, 31561316, 87688005, 9979318, 3563778, 1554649, 7076921 ####[facility] [address] [place] [address] Globulin (S) [Mass/Vol] 2.9 g/dL Normal 1.4-4.0 [facility] Comment on above: Performed By: #### 2 077486, 5130321, 82007169, 85442305, 27185926, 22917643, 6841176, 1961849, 5268682, 8868636 ####[facility] [address] [place] [address] Protein [Mass/Vol] 7.1 g/dL Normal 6.0-7.8 [facility] Comment on above: Performed By: #### 2 305259, 2374705, 97363035, 27347373, 36944882, 79507652, 6361509, 4761418, 0467890, 1156341 ####[facility] [address] [place] [address] Lipase Levelon 02-28-2021 Lipase [Catalytic activity/Vol] 33 U/L Normal 13-58 [facility] Comment on above: Performed By: #### 2 542275, 1131214, 48636562, 02863643, 06155733, 28906202, 2160269, 3870335, 2821359, 0052151 ####[facility] [address] [place] [address] PT & PTTon 02-28-2021 aPTT Coag (PPP) [Time] 31.5 second(s) Normal 25.1-36.5 [facility] Comment on above: Result Comment: Hepa rin therapeutic range (represented by Anti-Factor Xa activity of 0.2 - 0.4 U/mL) corresponds to PTT of 56.6 - 109.0 sec. Performed By: #### 2 767330, 8872620, 27631021, 94243035, 61297299, 46082174, 0540477, 2651315, 0857020, 3638345 ####[facility] [address] [place] [address] INR Coag (PPP) [Relative time] 1.1 {INR} Invalid Interpretation Code [facility] Comment on above: Result Comment: INR results are specifically intended to assess patients stabilized on long-term Anticoagulation therapy suggested INR?s ?Less Intensive Anticoagulation? 2.0 ? 3.0 Conventional Range 3.0 ? 4.5 Performed By: #### 2 943180, 7730290, 89475901, 00547461, 78977214, 19704353, 1780632, 0113095, 9679681, 0072103 ####[facility] [address] [place] [address] PT Coag (PPP) [Time] 13.1 second(s) High 10.2-12.9 [facility] Comment on above: Performed By: #### 2 934728, 0056165, 41307450, 94382495, 59511566, 65497025, 9696599, 1792814, 9591653, 9800056 ####[facility] [address] [place] [address] Prescriptions/Work Noteson 0 02-28-2021 Prescriptions/Work Notes [id number]# 1.00CD:127 Normal [facility] Troponin 0 Hr.on 02-28-2021 Troponin I.cardiac [Mass/Vol] ng/mL Low 10.10-27.10 [facility] Comment on above: Result Comment: The 95% CI (Confidence Interval) PPV (Positive Predictive Value) for myocardial infarction in females is 38 pg/mL, in males 51 pg/mL. The results should be used in conjunction with clinical conditions of myocardial infarction. (Access High Sensitivity Troponin I Instructions For Use, [place], January 2018) Performed By: #### 2 899121, 0494483, 33560212, 26155573, 51450629, 66203918, 4096934, 1571652, 1104756, 4775997 ####[facility] [address] [place] [address] XR Chest Single Viewon 02-28 XR Chest [...] MD Transcribed by: OLGA Technologist: YONG Kaplan [facility] eGFRon 02-28-2021 GFR/1.73 sq M.predicted among blacks MDRD (S/P/Bld) [Vol rate/Area] mL/min/{1.73_m2} Normal >=59 [facility] Comment on above: Order Comment: Order added by Discern Expert. Result Comment: eGFR is race adjusted. AA=. Performed By: #### 2 271228, 1898308, 72973549, 21942325, 97139713, 23767042, 2606339, 7236671, 5907609, 4509350 ####[facility] [address] [place] [address] GFR/1.73 sq M.predicted among non-blacks MDRD (S/P/Bld) [Vol rate/Area] mL/min/{1.73_m2} Normal >=59 [facility] Comment on above: Order Comment: Order added by Discern Expert. Result Comment: Charge Manager bib kidney disease could be indicated at eGFR's of less than 60 mL/min/1.73m2. Kidney failure is indicated at less than 15 mL/min/1.73m2. Performed By: #### 2 755086, 1101139, 94178236, 42054350, 55815656, 49144518, 3344868, 7990813, 7217427, 6353707 ####[facility] [address] [place] [address] C Urineon 02-01-2021 Bacteria identified Cx Nom [...] was performed at: [facility], [address] [place] [address], [address]- , , [facility] Comment on above: Performed By: #### 1 8399093, 4979618 ####[facility] [address] [place] [address] Coding Summary.on 02-01-2021 Coding Summary. CD:[id number] G h0bWw+PGhlYWQ+QB9SBPW eL08fsFUjkD5LU1bKRI0Y MSORKTPXFC7EGY4pzDB3A RajG5PksqNp EmlthIJmMW33SFj7INE9o HinGYtbpJ0uzMUsD0b3Qh ViGI15gE33XQbyADKmFwU 3LjZpbjsgbWFy G8fnGwNelWCaUvx+PHRhY mxlIHdpZHRoPScxMDAlJy DddQhhVI1zVc7yYAWrYPR vbGxhcHNlOiBj i1fkBLNfNHkoZD5hrVinK 1HphVV8VAKyc1e4Pc66pL I+DPMqVAS6gQtyBJmko75 1BzWyc7arIRR4 cJUvKRfwWZV9F95oj3Y1V WKbZTKbYZS7sWS3bZ5ftX pddiicM1GbyWQxZaZ4UJR 0lHEyuC8ixGnr hhqgdB4tZrn+R09VLZ0AS XOXBI9QJfn3D9BcKollxX I+RI16PHVcEI04oLNnbIY ko1tasSm9VgRo JYPgZSL2zOboXYiii0DxD ZYnS73lqVEyn1L9OJCckP nnvJTbSbLeiGJ3uB8xZWf ipsfxj2gmcgys Kkyyh6xppb50gF24H94eM CxzLKRuSRH3XFHhOLYiqZ yczo2lkJ2xUn7+SQjhk8g wp0uwdSo3ZmKb GQFkjmWdwGuwVTG4b9PyU d22E6NreEicb3HrTfg8dr 59cCUdn2D0nFK6HHgtMOI gcP1bZEshJcN2 HCFiAqTwqV15jDHoFKiwS p9eiIcfrApfMD8cFDYzvf thLMGehM9wWNLwcPPtqVb vDA1yZZDtmyzb j623PjZrFDR1SIQydUTgM 6AylR1yTrKoXHOlTJGwV8 DjfZQfKCimX020MYsbQoO 7FMIqbqGvI3Ke HUPgxFbwMtK1a6H8Tr1Gw 8DhijgnMKP6LIhhLCM1Cm RmLmHuAeV0H0XyLxs3YTV fyBevIJ8gH9Yk BGAselligfyplPW4DLFsD CVupF82dYEsNKcrSa6bb7 M8p615GZUwJIVsyE23Eg4 udDogMTBwdCBU jE1akxydg0egstyfHnEmK BQoTYw8REe3NFRqeDocDl HbWIB6QmS9LQT7iDUtlX7 hxRtzcvbxvZ0n Oyc+Z92zyZ9iAAQ1UCZ8a troKGQdcrFpCK99DS31V6 RyPjwvdGFibGU+PGRpdiB alDnjRD5eWrWj n6juu0XfSOlnF6BqMEZgO UgzKtp4BLTaTKZ6uRA3dT 5eUECkYTwaj8M1dBP8Y2P wozAarh5wa3nc VLQxAHbyK70cpRIul6C5D SOzdWS7ZCBpmDeiTaUrmA 93Oyc+YFGrhJulc9XhOka cq4iwv0hhqTk5 UgPkTLUmnlNcxLsuKKJ5i 3NsUv52Q35qZFquOQGgVW XcDRAjLUKcsZwfhv7ctH9 wIi8+PGNvbCB3 eVE1fX1zECGcQmA1ZLglM 742WiLpvKDoIquko6uvb2 dbzLr3YfLsAKPkpyCtxJl hVTU5n6ClIx69 V57wIVyeJSIuEFZjBBAjD IBohZmjyz8tzF7pAv7+PC 9uo4wdft63eK83bCI+PHR cYWQ0nJhbTOvq LJIvsI2fOCgbSzD7QWHiU pGrwT05dCAzYJkoNq6liY tulDkvWC3cWPFfdekla86 9PuYsg8ncCNWk vWHqNQwsKRX1S85rg4W7R FKlBHTiGZZ8gYV5lB8pwC lnbjogbGVmdDsgdmVydGl eQYidJFahI662 IHRvcDsnPlBhdGllbnQgT fGwHCh2D2DjAkj0QBUcuN nwXB4ctOMeYDgrOv0pkBs ypVuzDE6jZMAo rolxj365CiIih6hxTCBnv PIjZEcdUDI9I57gr5I5EB PdHQUnGRP8lZZ4vW1ckFb nbjogbGVmdDsg coAdmVizUZkrZYpwA281T HRvcDsnPkJpcnRoIERhdG A3ES78UB34fUYnk3K8zNO 8B2PkLHKmlioo lhktxNJ9GNKdNOKzzQ54S w4xvUwyBm8tQVWdUOS7ZK YxeXHiZ1OzvQ7uXmRvYBZ xXRAvU5JzfPMp MNlvR914NFxqDzU5KESoq eVuQ9MyETMxhLadAjY0w8 H8Ii3NZ9N4WR88RP25sMY ts8C3gMW4I4Gs UQKttwoszthagRB3OBFoW GKsjK91Oq2nqUimQx5hHY KjAME1FGQxmAXnC9YzzN8 yOiAjMDAwMDAw D9WpkSHpNVxcP102UKdbF cN2JDTppyIwG2MhWWRttF seAsC0z9P1Lw0KKLc3AO5 1JN61lPEef2T4 ySX7C3AdXTHdhzpnhrweu RA0FTIiWRYasB06Bw1yhP hrCt1cCJDzPHA8XWThjWD hB8HxwH4cNrJd MGUlAZAjI0VdaTUhUDwsQ 678QJyfZcJ5VZCtdbJiV5 IkIGEiwRnlLwE9t2P7Ik6 QDGZaQD78PYX4 sKO7HP10KK14U4QcElird GFibGU+PHRhYmxlIHdpZH RoPScxMDAlJyBzdHlsZT0 sGo4uHUTtPAUe vIrnfYAkBdUin3ofHFPhY LvwAR2orQkeW7TqgHX7LO Fkk3r8Oq78H81dK7UmeIH +RAIwyAP3hFX4 mO6pSdPwTbI8NMkbJ981L bLboETkNjrax5aol9xrmJ m4CuZ3GQRlvqCplDazDTC 8u8RwUy16A12f IHdpZHRoPSIxNSUiIHZhb Muryi1usM1aPk5+PGNvbC M7tQG7pU0oBvLjYnM2CGx mU368PtBbgZAb Gxiym4nlv8ujnTd5PmRyM BPbpoVseBsaSBB0r6ZySd 88K6DanGqfq2JzKyc3fh0 4cJKwr5J2aFC0 X2IpOXOvcaohiXKfbBqsG M4zJAPjyukbPYZmyB8qNF YiB6w8QgLtPuH4EKgwY8P ccvY2BNGniNUp RSuaIST9C48gz8U7KWHjH GIiWNI9gPG5yH2qzWcexz ogbGVmdDsgdmVydGljYWw iAVudR045OGTw hYbcWCGqjN0dUAIwjUBop ZvdNV9mVYGamtqkOtMNGE BNGQRSGVkKW9B2G2NhDtm 9MXPdkGuqZY5n lZFbGVrbWs9mmYhcnLbjY U2lGBXoskryLDRkqO5fDH VsgMUwgUpoGQ7wAWOuame wp019EzYiIBW7 OAUxcODuW9WskW3mAbApB HWtFMOvH8WbeIGtCXotG5 41NBxiPsT3GRVtbwKbG9O sLWFsaWduOiB0 l6O7Se9hWH5aWu5tQCgrQ V03DR24bPUmq9J1xUV4K0 WoYNNaxxhtnpgeiCK3LLK rJIOioO81eRId IYcrJf2dn8M6a856GEUkT RCriH79Ue0nbWnlMGFleJ QWkW7qcwbeg5kukeqfMsO kDPEnWVb4WKu8 JPFmlYriVsHfHYY1CbB5L ZF7bTOagR0veIarzbyabY 9wOyc+XlygPDQxarQ4J1V kNbq3TEGpmIde OB8fbZClNOhjVe3vnJhwl WcgWG5uFMBugaetZYRsxO 1yHGNnzIPjfUajXZ4oEJM cgagcv358TvZa IXX0GYKqgVDqR0QusU7fV aYxTDUrIRWsU7LhpBIwVQ ppA968NUspDaI2KNQkozI rQ8TaZLVzqXzx NdE3t9D8Wq8PIE6xxNC6A 4UeCsb5UIPapHvxTV3gjO BoSQatTk4lfOsvhNysZY1 wNTBpbjtwYWRk dO2pCEHovEWggGrcZR1xF PTtcgwto069XaIpNGG6RY RryKTgP6NriK7rJnIxPSI gGAWbG9TrpCXb ASlfT304UBrvVjI1VURkh xQzD2TsKPFlzNfiVdB5u5 B3Kx5CvTLnY8WrV1g0B9O kPjwvdHI+PC90 FTYsWI64hCVmrNLpj7ztk Nf7QoVnNZKcGQL5wUfwXC vit7EvTPWkO49xdQEnl7R 6IGNvbGxhcHNl UeLygDR3iF1pJNqvgyycl 8hwxfvzPkbrj2tidw83yV 99Q71oNJdtLCUcTVTiOKL mEIPrrAgfbt5u jS2pKx2+JIYodVN0hQM8p C1pBcOmFpU2LMnyV750Kj MizIWwUvsjy1rwk0ncyTu 9IjIwJSIgdmFs jFofPOQ9y2EzJe05C52cA HdpZHRoPSIyMCUiIHZhbG ojev2hgZ0fNe0+CK0jd6u hmb30oL18nSR+ UVNeGYH8fGepGTmsDAFem Q1qWVjqGzO7WLSlUaAkzJ 51dDLmSOydSu7boAlkoOu eTJ2sSOLwiemw f322FuEil3zcWALkyTAkT CcsWPC4J98pg2S1PZQoHY OqNNI0uUM7qA3tfCjajsh gbGVmdDsgdmVy uOdwXQgaDTomS887OGLhc LfqTrSuqDFtT7euviUYTI 1lOjwvdGQ+EMWgCEJ1dOd hUUzhCEHffP8s NDJfX1l8VoYkKzJ5XFozM 2DglaM9DJAiiROhXSCijW LQvS5cssads9zyxsbuVcI bSHOcSXk3PEe6 NBXnuBqaFyAsNXA6YmU0I AX4vOQinW3wsZcshhifdC 9wOyc+RklOOjwvdGQ+PHR cHAY6iOhoGDvl MHZajR4vGFAtA8u7VzMbH yG4MGhfU8QndeD6ZXZclH McLGUuoZVKbP2cralsh9q vcjogIzAwMDAw GDp1MTp0OCFbgPutAkSxO ID6EdS8CMO6kXVfaE5dkG prmsjwyI8yThr+TVJOOjw vdGQ+PHRkIHN0 sEuuNKqzAJByzG0tWNMcD 2n3AcUwKpN2TLtnE0Vepu A7YHZleFOpVHHemDVFfI9 xluhka8kkwojp CrLkNCDePSs5PBf3FJFwr FjaJdUuNED1FvA8FVX6iO WsgA8ouBtklvwexU3qDin +FJM2CVN7SC87 HS53Y6ZdTcpoiMCeyQR+P HRhYmxlIHdpZHRoPScxMD GmFpAhxWklZN8aSt6fIUE yLWNvbGxhcHNl OiBj (more content not included)... Normal [facility] B hCG Qualon 01-31-2021 Beta hCG Ql Negative Normal [facility] Comment on above: Performed By: #### 2 398849, 0372795, 3901403, 57546846, 0687056, 30800542, 9836452 ####[address] [place] [address] Discharge Instructionson Discharge Instructions [id number]# 1.00CD:127 Normal [facility] ED Clinical Summaryon 2020 ED Clinical Summary [address] [address] ED Clinical Summary Person Information [facility]: [facility] Age[facility] 25 Years : 1995 Sex: Female Language: Ecuadorean PCP: lAon Weber MD Marital Status: Single Visit Id: [...] 01/30/2021 23:43:48 01/30/2021 23:43:48 01/30/2021 23:43:48 ADDRESS: [address] [place] [phone] PHYS DOC NOTES: MEDICAL INFORMATION: Prescriptions Given: New Medications [id number], [address], [place] [phone], [phone] cephalexin (Keflex 500 mg Cap) 1 Capsules [...] Follow up: With: Address: When: Alon Weber [address] [place] [address], [facility] [place] [address] Business (1) In 3 days 02/02/2021 DIAGNOSIS: Acute UTI Normal [facility] ED Note-Physicianon 02-01-20 ED Note-Physician CD:[id number]:39108 2 4BL03dBmgapBqx3trji9f XX6pEvXrekBtHSbjVy4jz 3jqQN66ok6yTtZcZb2+Cj mkEP5IEGhCJBCn bI3cCJUOHpyAYcSpFR9lY gJUUh9ODAOyUBaLGIqxLM 7yZZK6ibftkO2wXL8qDOG ocZHfFf4ke6p0 HvlnPn7uEd2FYe86tHLvb YPzDSLJQ6iehN5fDG3vrT VfB1WrTAKpUw7MADh7mYi koY5sciX5Xkh8 qQH2Yu08f6icgnHmd1AdV zZ3LWnuoYo9kLybVUyydM 1gGqYsSGQLqD1qxEmeZR5 ulH0iluYhqDlq biI+CjgmMWFeOtl3dBFxA Q96V0SmlIuxJub2uTK9VB PbbQOgJKOowDu1PESRXKG BLUNvbXBhdGli mMGtIUHhmoFrjqB4WnhVF UOzTgFaDkv2B6rpDTR+Cj xmq5M5Rhg4WNl9QLJ1cMx oBAQpy736EFAi pIsriJahiSFjc11tAPApy PIfJeBuv153XGBickV3MG hasOifIgm6iRMocGJem6m psPo3GmOdNZXo WoqOLHMomRfvy8RfNjdSM Ysim9mvgrZcpTooSND0e7 EmYZvuFPDrZXG1CkIwYJ2 +CgkJPGNvbCB2 RNgeV564PrRgbEWzu8wdo Ba1LeK0VPEhHv5WPLbiV0 0hN8WvmOD+Ahi4uTUlYUj +CgkJPHRyPgoJ QVn0pLFho1D9jXW7TfFil mLzt7r4RQtaFUT9KcV8JK D6fVTtmY9wfGbcbosiwV8 wOyI+CgkJCTxk wVDnP3hph5R4LoXzb6Kvu HcjalQrXNIaDhYet6tnYs jbPXAybN9xGZM5PxVqWLR leHQiIGlkPSJf DkBnABOhBqJfGPAoHs41K zRuHJx4ZMbvKdomMLN9Wy MqLfVzDdYkkNhcZG6nsWU kZGluZzogNHB4 OyI+FEXiIG2dR1kqk0I6E qBuj0DrrPcysyTlg2DeYJ vrDgfjwTYpPII4bHrsSHX rz798DNjtaSfo jJwuDa0vCHildMU8nM3oA UFxioH9vT5sUsP1myHojn wzmuP6Uw8YWROiZpYJlbD laj3uyDjigobs i6Ohtv73L8RvCW6+CgkJC NkqrWUcB4jki4A9GpYkt0 Lrr50njtI1GP3mgJC9XMO zJHEjZlCab3bo YmxlIGRkZnJlZXRleHQiI KYxJtL5eeUay7H2gZ6hv6 F8eOA9EuEnxC2yaLxafEA vRYY2lHEthDqs kJJsB3uxWMMJU2kfK42GV YSCFLUFJAMwRLy9DJzsQa QiIGlkPSJfYTMyMjFhZGU wUZKiFJ10QiCf LJZlPVXjGtF8JAPcKlX3J IK8En08t8SrvgQzrSaaPR 3toQRvB0ajYaAqxPHuYDq wMxMwRPDbuI7u VhOstZU9BFMplFKcBKueM 057VWraTgJ8UKYtrQ8oXi WwH6ToTRtyDNwkXJa4VMK zqmTwl1B2fCP2 MP5kze6szDncJv0wwN11J JoxuUG5NY1usa3rgFzfjB F9wV4kCROunhU3rP1kRwT ip57bVeZ+JiN4 GTK3Xl0xqFIbjYspvMoxW dWvLVSuFMQ8PNuvKGYzKI 0uI0reOCh8C2ZqFS1+PGJ yIC8+CgkJCSYj zNWbTjwpGKo7AhwDQWbWH UGadtKecABqsd6uXWBkmk UojZI9fHKyJMQwrH04PYV oXHPtWCW1EdLc IakiWWAacbyzdYtiMY7lw Z9fDIGhO6x8YtTpSD6iJj aaHsL1KTikZXq8XVceJNj mBA65STo0WTCc PYH0QfOxQmCsAuSaa3F4z DO3UnQzd4IpBKz5KD9obd A4Qd82T4Xbqk0EBJmZDP6 kaXY+CgoJCQk8 GCj0YGTsTRWrGIDxXLBsA 2Aza08nULQvQYXwOMCmXI AoNVBlJObcn7ModWKuSXY 4DBm0DZCzptJc d4SpDmkaSoOpZUhgLCP2r O6hM52vUU4bLS4PDqYsIY NxHRMrHvGgkDS3Zz82HmW 3FKI8HE32OvUc CMI2XLgrUCi9Rp7mCEGpW uXpBMP5PZocENY2cSkwGX TsLNFgwC1nDpG9vEl3Ir8 4z1BjtsAbcOJt qj5rAZRnSEO2gF5yNLlsj GxheSI+YEJhSQ8fa2R6jZ D9SyHbkwPek4GjG1i5LvW uu4xsXvA1FJy5 DGFvU36fCRRly026BRRuD GVybGluZTsiPkNoaWVmIE CbjMUcUZbuyJkhs1Khkn5 1A9HrVF6+CgoJ ZBs5BMu0MRYxYVKbSOKrJ GVtcmNvbnRlbnQiIGRkOm TnukLcydU5gXGdYLZQSAJ FZYUJA03JWPHl JTAePhObBqEtVP5xEHS8l CE6VwYBWuHgLVp7JDLsWG OgXHAPJg1YCDKhLVUMMQP FCBO8ZUASKBOt tDK4Qy86FoVjMaleAz0yV YDsQNHjVhYfHpgaTo4dZK p6GWLfWYktPjBrCvoELYd 7AOk5JVXuBGHd PSJkZGVtcmNvbnRlbnRpd EJlHYUglyQhk1UbEaypQg FzOFugy222BV01kFguMF8 vSUNRY1ALDQ7D RUFTIiBkZDplbnRpdHlpZ I9aZVp2FGW1BNAtKiYmpR I6Cr1mLLUqFrgnKg9jSMA hLTRkMWMtYjNl Jy93EMB5BSg5NZL4OkkoP EcpxD8mHdDoCZCJdU7edU czMJ7ieY4ynoSvqHakedR +cHQgYXJyaXZl ooQpk5MnptulhYItc6fdY QEeECRuGICqgA9ovAubkB QesFHodYEovK9smZnlHKU yFE4qGBNhDM2w A55jxtA9bbI9rCXxylvmy AMjNWF3ABjcMIIkjVguWE FrLMEqMOJepvTvb9IdCAn oED3bHVqcksFx pZXsKlZfnqBsyS2pZNU9a 5DbTkydETk3FviKKVk3A7 Oies9BFOlOWL3tjHQ+Cgo TAKc7NOk4NGSs NXYqFZSdBDCuQ6Shx96qQ GRyZWZyZXNoYWJsZSBkZG see8YhjSHqSLF4MBz0HFU yglDrp6BuLiwb YxCeMUjrGMU9nC5yX49aI R7uRG5FAsUkHMXsFlMfPd AfzEE8Un3hS9SpRVG0IW0 iQgWcRKS3UuTz PQd3Hg4aJOD6GqD7TDlxY COyEXW1kVacYWUpADRreJ 7lHbK0eTq7Zm82e6FrxtU laYXnsj1tTJYw OJK5yB2hFFeffVsveMD+P EXoQO7vo1H8hOL9GjDabf Oue0AfN5q6RhNhk3quTfS 9SXa1NKGuZ38z QCCkr553KUTuTVFrsEauE FlkButin2Uvpukfe4IvNE Bik1JccVCGrHcgZJBxAQ8 kaQOnGgaak5Yr bs6OFviRINaobLMgS6fhk 1K5OyFqLL3jX17rrBRonN WfRAH0J33pW5IpaO6wIRV NNvRtFSeur199 UU77mOljMG3tQT8UA9NSF CReZZIsEqSfHjRaXC6qMN F4kRM4YuNlEdAlQmA0RWN 7UNBnMKJGNv74 WxyUGSUQAbX3J4V3L6S1S SCskIL5Fv3vQXM7EyjqRC 24GAAiXVIyFQUkFCAnKG2 9KCZyNLE0REC8 WVvrJymGKLi4IHk3OSXiQ XNzPSJkZGVtcmNvbnRlbn SqvKJeEoKaCVimj360GS9 3wHbyKQ7jQLHV K6LQOJ3RRCNVOiPeOMwwf yKliNnvRV7oQCFyTGN0DL 11rJX5pjMxj5shqz3wOFF yaPU5Og03ETGo RvdxJK1dGgjcWJG5DSocK TO1Sj06MQH5AIGvQEKtFE BnEhkTHVn1PJf4RGDiOOD zPSJkZGNvbXBv bpEkiNNiGYX3BS73lHO3d JQ8hYV4oYV0XcOtr0QnmR MekCGwzJC8Xz16T7J7Lrl xBO9vM5FkNRAg UrccGbK4Hg72OXRoVsFxL RV5A6WnFccHIDu4QGl9GA QdXLFxHOSqEFLuWCA8QQq 8QEKtmfLva3Hd CnhlYkIpZVaedM6xmY4ym YjlK5C1bHzoTNR0c7Hjjx lnaHQiIGlkPSJfMjlkMjM 2TEQpYGPwGX20 Jbw2ZGMnYwYaWFx0NTz4K xF2NlC9Hs3YACkne9CeX1 ejNpNdbWIqWJNrWlW2QDE gHN9pMELeBK9z eJXwq6h3lXYDQQgpl4Wmr 0FepwlrhaQaxRO5yrLmyc LaXQ22iaO8hMLmMIEsrSD utxCmnAD5i8B6 OV6pAPjnwKOghDi7iFYel DDxuZKhM5YdNN9lU1VwJD 0bdF6kjLAnILtbYDKoOIK tJ9JoQRTwXT3m YRCanO1jzZ3xIYHkOAHll aB1fGLcmHSbePouDDFeP4 JpYmVkIGFzIHNoYXJwLCB mtnEhh6HaLXQh p94tyFt9YLDxZQnsoMVzB QCyXLnin2fxNIPpRFV2YC ufTyjhBF3gLMnah1QxLPW lZ8ftCKP6onFx bnRseSByYXRlZCBhdCBhI WibLNYpHU2wCFvrnoR1y0 yaziNlVIXswLKjdT5msEb zOOYtf8JnSZPx cW0og0K7BW0uYJPqq5ZqO ZVrGSG0yCAwHU9chr0mFC ClcERkBPR4h7VgyXViBO2 uYDQkLTQ4MA7m yLrkKeL7WJLyMC7yi6CvP JcjbIF3uUGpQC2jHKFaYI 2wh7W5aZB3TpIqLCTvpxh jjU2iCuMgmHz4 CRIcBETouerfCk97jZ8lP dPntUu1EH9gjosthr77v6 N3HHRlqDxosPRuD3hfZTM vdHRvbTogMHB4 OyI+Mu5whUjsbN0ajPYqA pElhAAsJZaoq5UjeiZhQj qua2Zyml6eS9qfYKu2d8F dyjPysUgkWA2z iVYrLJupOs35m6Q1BJFem AqnrDAxXSyyHh2vf5A6c0 37ZWSzuTttsJIuG8kqNRY yjWilGBT7KuNb Y (more content not included)... Normal [facility] Comment on above: Result Comment: Elec [...] this condition includes: ? Antibiotic medicine. ? Zgra-cgp-roizgvl medicines to treat discomfort. ? Drinking enough [...] these instructions at home: Medicines ? Take ffey-vfa-rggbqau and prescription medicines only as told by [...] This in (more content not included)... Normal [facility] ED Patient Summaryon 021 ED Patient Summary [address] [address] Patient Discharge Instructions Person Information Name: RAJIV TOVAR Age: 25 Years Arrival Date: 01/30/2021 20:17:08 Discharge Diagnosis: Acute UTI Primary Care Physician: Alon Weber MD Provider Information Primary Provider: Joshua Hollingsworth DO Advanced Philosophy Professor:None The exam and treatment you received in the Emergency Department were for an urgent problem and are not intended as complete care. It is important that you follow up with a doctor, nurse practitioner, or physician?s orthotics prosthetics assistant for ongoing care. If your symptoms [...] Follow-up Instructions: With: Address: When: Alon Weber [facility], [address] [place] [id number] [facility] (1) In 3 days 02/02/2021 In the event that this physician does not participate in your insurance network, please consult with your insurance company to find a nearby participating provider. Patient Education Materials: Urinary Tract Infection, Adult A MESSAGE TO ALL PATIENTS REGARDING OPIOIDS PRESCRIPTION OPIOIDS: WHAT YOU NEED TO KNOW Prescription opioids can be used to help relieve kqvbodgm-vm-nknhxp pain and are often prescribed following a [...] be struggling with addiction, tell your health emergency care tech and ask for guidance or call [employer]?S National Helpline at 8-933-043-HELP. v Source: [place] Department of Health a (more content not included)... Normal [facility] UA With Cult Reflexon 2020 Bacteria LM Ql (Urine sed) 1+ /HPF Abnormal Trace [facility] Comment on above: Performed By: #### 1 [id number], [id number] ####[facility] [address] [place] [id number] Bilirubin Ql (U) Negative Normal Negative [facility] Comment on above: Performed By: #### 1 [id number] ####[facility] [address] [place] [address] Clarity (U) CLOUDY Abnormal Clear [facility] Comment on above: Performed By: #### 1 [id number], [id number] ####[facility] [address] [place] [address] Color (U) YELLOW Normal Yellow [facility] Comment on above: Performed By: #### 1 [id number], [id number] ####[facility] [address] [place] [address] Crystals LM Ql (Urine sed) Present Normal [facility] Comment on above: Performed By: #### 1 [id number], [id number] ####[address] [address] Epithelial cells.squamous LM.HPF (Urine sed) [#/Area] 0-2 Normal 0-2 [facility] Comment on above: Performed By: #### 1 [id number], [id number] ####[facility] [address] [place] [address] Glucose Test strip (U) [Mass/Vol] Negative Normal Negative [facility] Comment on above: Performed By: #### 1 [id number], [id number] ####[facility] [address] [place] [address] Hemoglobin Ql (U) TRACE Abnormal Negative [facility] Comment on above: Performed By: #### 1 [id number], [id number] ####[facility] [address] [place] [address] Ketones (U) [Mass/Vol] Negative Normal Negative [facility] Comment on above: Performed By: #### 1 [id number], [id number] ####[facility] [facility] [address] [place] [address] [place].plasma/Lithi um.RBC (Bld) [Mass ratio] 0-3 Normal 0-3 [facility] Comment on above: Performed By: #### 1 [id number], 9117700 ####[facility] [address] [place] [address] Mucus Ql (Urine sed) TRACE Normal [facility] Comment on above: Performed By: #### 1 9034614, 4466291 ####[address] [address] Nitrite Ql (U) Positive Abnormal Negative [facility] Comment on above: Performed By: #### 1 4129273, 8713397 ####[address] [address] pH (U) 7.5 [pH] Invalid Interpretation Code 5.0-9.0 [facility] Comment on above: Performed By: #### 1 4667251, 0083460 ####[address] [address] Protein (U) [Mass/Vol] Negative Normal Negative [facility] Comment on above: Performed By: #### 1 1819929, 6913198 ####[address] [address] Specific gravity (U) [Rel density] 1.020 Invalid Interpretation Code 1.005-1.030 [facility] Comment on above: Performed By: #### 1 1300434, 1312258 ####[address] [address] Type of Urine collection method Clean Catch Normal [facility] Comment on above: Performed By: #### 1 4358883, 8070595 ####[address] [address] Urobilinogen Qn (U) 0.2 {Arnie'U}/dL Normal 0.0-1.0 [facility] Comment on above: Performed By: #### 1 6208920, 7448331 ####[address] [address] WBC Auto Ql (U) 1+ Abnormal Negative [facility] Comment on above: Performed By: #### 1 5440426, 4138103 ####[facility] [address] [place] [address] WBC LM.HPF (Urine sed) [#/Area] 6-15 Abnormal 0-5 [facility] Comment on above: Performed By: #### 1 3764727, 1578478 ####[facility] [address] [place] [address] Auto Diffon 01-30-2021 Basophils/100 WBC (Bld) 0.4 % Normal 0.0-2.0 [facility] Comment on above: Order Comment: Order Added by Discern Expert. Performed By: #### 2 028740, 8177255, 1647885, 47198890, 0158588, 94681648, 3231797 ####[address] [address] Basophils/Leukocytes Auto (Bld) [Pure # fraction] 0.0 E9/L Normal 0.0-0.2 [facility] Comment on above: Order Comment: Order Added by Discern Expert. Performed By: #### 2 781334, 9628435, 5114909, 35254993, 2725366, 98765228, 4996552 ####[address] [address] Eosinophils/100 WBC (Bld) 1.4 % Normal 0.0-8.0 [facility] Comment on above: Order Comment: Order Added by Discern Expert. Performed By: #### 2 965106, 4718621, 5922695, 80965745, 4684435, 28116308, 3072383 ####[address] [place] [address] Eosinophils/Leukocyt es Auto (Bld) [Pure # fraction] 0.1 E9/L Normal 0.0-0.5 [facility] Comment on above: Order Comment: Order Added by Discern Expert. Performed By: #### 2 315868, 3077566, 0785879, 71274577, 2177433, 52044120, 7411992 ####[address] [address] Lymphocytes/100 WBC (Bld) 23.7 % Normal 14.0-50.0 [facility] Comment on above: Order Comment: Order Added by Discern Expert. Performed By: #### 2 896055, 7522841, 7080910, 95572359, 1043398, 48892720, 5385284 ####[facility] [address] [place] [address] Lymphocytes/Leukocyt es Auto (Bld) [Pure # fraction] 1.9 E9/L Normal 1.0-4.0 [facility] Comment on above: Order Comment: Order Added by Yifan Expert. Performed By: #### 2 937379, 8664365, 8752202, 87686293, 7956042, 73575663, 0368350 ####[address] [place] [address] Monocytes/100 WBC (Bld) 6.2 % Normal 4.0-14.0 [facility] Comment on above: Order Comment: Order Added by Yifan Expert. Performed By: #### 2 616518, 4895753, 9083136, 91184562, 7969224, 36455944, 9285819 ####[facility] [address] [place] [address] Monocytes/Leukocytes Auto (Bld) [Pure # fraction] 0.5 E9/L Normal 0.2-1.0 [facility] Comment on above: Order Comment: Order Added by Discern Expert. Performed By: #### 2 729071, 6827387, 5283715, 98970610, 0198334, 13868621, 6731145 ####[facility] [address] [place] [address] Neutrophils/100 WBC (Bld) 68.3 % Normal 36.0-75.0 [facility] Comment on above: Order Comment: Order Added by Yifan Expert. Performed By: #### 2 283513, 6250054, 8960999, 76777510, 4938730, 57830217, 0353625 ####[facility] [address] [place] [address] Neutrophils/Leukocyt es Auto (Bld) [Pure # fraction] 5.6 E9/L Normal 2.0-7.5 [facility] Comment on above: Order Comment: Order Added by Discern Expert. Performed By: #### 2 346985, 1628895, 9246434, 39732830, 1943399, 70881658, 9463341 ####[facility] [address] [place] [address] BMPon 01-30-2021 Calcium [Mass/Vol] 9.0 mg/dL Normal 8.9-11.1 [facility] Comment on above: Performed By: #### 2 069787, 1442150, 8081742, 17110476, 2054773, 32089817, 8097599 ####[facility] [address] [place] [address] Creatinine [Mass/Vol] 0.7 mg/dL Normal 0.5-1.3 [facility] Comment on above: Performed By: #### 2 368659, 5123164, 2740877, 05845456, 5755141, 97772012, 0526521 ####[facility] [address] [place] [address] Urea nitrogen [Mass/Vol] 10 mg/dL Normal 5-21 [facility] Comment on above: Performed By: #### 2 471855, 4305629, 6818472, 89996508, 2186266, 18654441, 0688428 ####[facility] [address] [place] [address] Urea nitrogen/Creatinine [Mass ratio] 14 No Units Normal 10-20 [facility] Comment on above: Performed By: #### 2 923372, 7804271, 0373748, 55673678, 0836549, 85498862, 7253947 ####[facility] [address] [place] [address] Anion gap [Moles/Vol] 12 mmol/L Normal 6-16 [facility] Comment on above: Performed By: #### 2 039037, 1166084, 2662243, 89268489, 0045180, 06371150, 5735691 ####[facility] [address] [place] [address] Chloride [Moles/Vol] 104 mmol/L Normal 101-111 [facility] Comment on above: Performed By: #### 2 811463, 3888531, 8123076, 19638124, 8744072, 05724405, 8035615 ####[facility] [address] [place] [address] CO2 [Moles/Vol] 25 mmol/L Normal 21-31 [facility] Comment on above: Performed By: #### 2 257365, 1107158, 0992137, 39630326, 4492261, 21008451, 5365875 ####[facility] [address] [place] [address] Glucose [Mass/Vol] 93 mg/dL Normal 55-199 [facility] Comment on above: Result Comment: If t his glucose result represents a fasting glucose, interpretation should refer to the following reference range: 55-99 mg/dL Performed By: #### 2 187766, 4272541, 5430615, 05122734, 1706830, 52602759, 3085831 ####[facility] [address] [place] [address] Potassium [Moles/Vol] 3.8 mmol/L Normal 3.5-5.3 [facility] Comment on above: Performed By: #### 2 224271, 1836248, 0907899, 54502059, 3933723, 65762505, 4495307 ####[facility] [address] [place] [address] Sodium [Moles/Vol] 137 mmol/L Normal 135-145 [facility] Comment on above: Performed By: #### 2 663834, 6499553, 1264327, 64566804, 0230838, 92852211, 7028368 ####[facility] [address] [place] [address] CBC w/ Auto Diffon 08-09-202 1 Erythrocyte distribution width (RBC) [Ratio] 12.2 % Normal 10.9-14.2 [facility] Comment on above: Performed By: #### 2 224140, 2300260, 2541027, 44934467, 7543848, 24263961, 6410425 ####[facility] [address] [place] [address] Hematocrit (Bld) [Volume fraction] 39.3 % Normal 34.0-46.0 [facility] Comment on above: Performed By: #### 2 116367, 9082971, 3434026, 29925002, 8656730, 66981748, 4418731 ####[address] [place] [address] Hemoglobin (Bld) [Mass/Vol] 13.3 g/dL Normal 12.0-16.0 [facility] Comment on above: Performed By: #### 2 522045, 2785325, 7631113, 72969533, 0382730, 84270987, 1853966 ####[address] [place] [address] MCH (RBC) [Entitic mass] 31.3 pg Normal 27.0-34.0 [facility] Comment on above: Performed By: #### 2 946106, 7650344, 5188365, 92363277, 9110373, 58765912, 8083892 ####[address] [address] MCHC (RBC) [Mass/Vol] 34.0 g/dL Normal 31.4-36.0 [facility] Comment on above: Performed By: #### 2 449695, 1365777, 8983768, 28341305, 3080482, 39608556, 8677250 ####[facility] [address] [place] [address] MCV (RBC) [Entitic vol] 92.1 fL Normal 80.0-100.0 [facility] Comment on above: Performed By: #### 2 635664, 0584433, 9256153, 30421943, 0554660, 94999179, 8652114 ####[facility] [address] [place] [address] Platelet mean volume (Bld) [Entitic vol] 9.2 fL Normal 6.4-10.8 [facility] Comment on above: Performed By: #### 2 198630, 8557136, 3784660, 64392406, 5540331, 21983642, 4670771 ####[facility] [address] [place] [address] Platelets (Bld) [#/Vol] 214.0 E9/L Normal 150.0-500.0 [facility] Comment on above: Performed By: #### 2 365911, 1740684, 8507709, 58523135, 8694655, 90834819, 4598784 ####[facility] [address] [place] [address] RBC (Bld) [#/Vol] 4.3 E12/L Normal 4.3-5.9 [facility] Comment on above: Performed By: #### 2 234693, 5135808, 4418876, 94205148, 9501627, 02334227, 6697584 ####[facility] [address] [place] [address] WBC corrected for nucl RBC Auto (Bld) [#/Vol] 8.2 E9/L Normal 4.0-11.0 [facility] Comment on above: Performed By: #### 2 034128, 1338508, 0944556, 97702604, 8168312, 59390925, 9286693 ####[address] [place] [address] Consent for Treatmenton Consent for Treatment [id number]#1 .00CD:127 Normal [facility] Hep Func Panelon 01-30-2021 Albumin [Mass/Vol] 4.0 g/dL Normal 3.3-5.0 [facility] Comment on above: Performed By: #### 2 166784, 5799849, 7659657, 99073537, 4293472, 11923992, 2641360 #### [facility] [address] [place] [address] Albumin/Globulin (S) [Mass conc ratio] 1.5 Normal 1.1-2.2 [facility] Comment on above: Performed By: #### 2 097065, 3533431, 6065873, 18607398, 4901298, 09735753, 7615318 #### [facility] [address] [place] [address] ALP [Catalytic activity/Vol] 44 Int._Unit/L Normal 21-98 [facility] Comment on above: Performed By: #### 2 474325, 3849212, 7882910, 18069443, 7849871, 73261138, 4846174 #### [facility] [address] [place] [address] ALT No additional P-5'-P [Catalytic activity/Vol] 20 Int._Unit/L Normal 6-46 [facility] Comment on above: Performed By: #### 2 649815, 4474758, 9030205, 00012349, 7430352, 80918119, 5257050 #### [facility] [address] [place] [address] AST [Catalytic activity/Vol] 16 Int._Unit/L Normal 5-43 [facility] Comment on above: Performed By: #### 2 603282, 2119828, 0865813, 34332604, 8953878, 21129161, 7357981 #### [facility] [address] [place] [address] Bilirubin [Mass/Vol] 1.1 mg/dL Normal 0.0-1.1 [facility] Comment on above: Performed By: #### 2 873525, 9896171, 7671796, 79217910, 4458327, 01494930, 8297174 #### [facility] [address] [place] [address] Bilirubin.direct [Mass/Vol] 0.2 mg/dL Normal 0.1-0.4 [facility] Comment on above: Performed By: #### 2 348624, 7546090, 0814614, 44386857, 6861446, 84671714, 7280304 #### [facility] [address] [place] [address] Bilirubin.indirect [Mass or moles/Vol] 0.9 mg/dL Normal 0.1-0.9 [facility] Comment on above: Performed By: #### 2 596188, 4874561, 2964615, 07159143, 3651274, 40172795, 1254018 #### [facility] [address] [place] [address] Globulin (S) [Mass/Vol] 2.6 g/dL Normal 1.4-4.0 [facility] Comment on above: Performed By: #### 2 020342, 3341013, 5795392, 44171116, 6786617, 64823691, 4435350 #### [facility] [address] [place] [address] Protein [Mass/Vol] 6.6 g/dL Normal 6.0-7.8 [facility] Comment on above: Performed By: #### 2 565497, 7317525, 8122760, 69940599, 0614129, 20680236, 3338529 #### [facility] [address] [place] [address] Lipase Levelon 01-30-2021 Lipase [Catalytic activity/Vol] 32 U/L Normal 13-58 [facility] Comment on above: Performed By: #### 2 092174, 0888779, 4485406, 41857009, 3230838, 99237521, 9124256 #### [facility] [address] [place] [address] eGFRon 01-30-2021 GFR/1.73 sq M.predicted among blacks MDRD (S/P/Bld) [Vol rate/Area] mL/min/{1.73_m2} Normal >=59 [facility] Comment on above: Order Comment: Order added by Discern Expert. Result Comment: eGFR is race adjusted. AA=. Performed By: #### 2 732796, 6470049, 3543695, 45781730, 2650808, 37716376, 3628909 #### [facility] [address] [place] [address] GFR/1.73 sq M.predicted among non-blacks MDRD (S/P/Bld) [Vol rate/Area] mL/min/{1.73_m2} Normal >=59 [facility] Comment on above: Order Comment: Order added by Discern Expert. Result Comment: Charge Manager bib kidney disease could be indicated at eGFR's of less than 60 mL/min/1.73m2. Kidney failure is indicated at less than 15 mL/min/1.73m2. Performed By: #### 2 146216, 3488639, 7139223, 43156955, 0174905, 61805159, 3038537 #### [facility] [address] [place] [address] Provider Letteron 06-03-2020 Provider Letter June 03, 2020 To Whom It May Concern, Rajiv has been under my care and had a lap choly on 05/10/2020. She was seen post operatively on 05/23/2020 and was healing well. Rajiv is released to work on 06/06/2020 with no restrictions. Please call the office at [phone] with any questions/ concerns. Sincerely, Dr. Aiden Izquierdo faxed to [facility] to [phone] Normal [facility] Ambulatory Clinical Summaryo n 05-23-2020 Ambulatory Clinical Summary {[id number]}CD:[id number] Normal [facility] General Surgery Office/Clini c Noteon 05-23-2020 [...] Aiden IZQUIERDO MD Only if needed [address] [place] [phone]- Additional Instructions: F/U PRN Problem List/Past Medical [...] 04/19/2020 Family History Family history is negative [facility] Comment on above: Result Comment: Elec tronically Signed By: Aiden IZQUIERDO MD\.br\Date and Time Signed: 05/23/20 10:17 EST\.br\Electronically Co-Signed By: Mildred Cook MA\.br\Date and Time Co-Signed: 05/23/20 09:55 EST IntraOperative Documentson 1 07-17-2019 IntraOperative Documents [id number] .00CD:127 Normal [facility] Ambulatory Clinical Summaryo n 05-16-2020 Ambulatory Clinical Summary {[id number]}CD:[id number] Normal [facility] Gastroenterology Office/Clin ic Noteon 05-16-2020 Gastroenterology Office/Clinic Note Chief Complaint f/u EGD HPI Staff This is a 25 year old female who presents today for a follow up to EGD. History of Present Illness 24 years old white female with no significant past medical history except for anxiety, referred to me from [facility], ER to be evaluated for right upper quadrant abdominal pain, she reports right upper quadrant abdominal pain, started 6 weeks ago, sporadic, moderate in nature except for the last time when it was severe for which she went to [facility], ER, she had normal CBC, CMP and [...] Information Ezequiel MARTINEZ MD Only if needed [facility] [address] [place] [address]- Additional Instructions: Patient Education Cholelithiasis Problem List/Past [...] Surgical Pathology Report; 04/29/2020 10:57 EST Normal [facility] Comment on above: Result Comment: Elec [...] required. HOME CARE INSTRUCTIONS ? Only take jvfr-ios-wohqeol or prescription medicines for pain, discomfort, or [...] Document Reviewed: 08/09/2011 ExitCare? Patient Information ?2013 [employer]. [facility] Coding Summary.on 05-13-2020 Coding Summary. CODING DATE: 05/13/2020 FINAL [facility] STATUS: Home (Routine DC) PAYOR: Reba APC DESCRIPTION 5361 Level 1 Laparoscopy and Related Services ADMIT DX: REASON FOR VISIT DX: K81.1 Chronic cholecystitis FINAL DX: PRINCIPAL: K81.1 Chronic cholecystitis SECONDARY: K82.8 Other specified diseases of gallbladder F41.9 Anxiety disorder, unspecified PYMT PROC APC STAT DESCRIPTION DOCTOR NAME DATE 57940 5361 J1 Laparoscopy, surgical; Aiden IZQUIERDO MD 05/10/2020 cholecystectomy with cholangiography 35901 Anesthesia for Bakari Husain Jr, DO 05/10/2020 intraperitoneal procedures in upper abdomen including laparoscopy; not otherwise specified NOTE: The code number assigned matches the documented diagnosis and / or procedure in the patient's chart. However, the narrative phrase printed from the coding software may appear abbreviated, or result in slightly different terminology. Revised Coded By: Eugenia Mae Revised Date Saved: 05/13/2020 02:09 pm [facility] Main OR Intraoperative Recor don 05-13-2020 Main OR Intraoperative Record IntraOp Document Type FT Summary Primary Physician: Aiden IZQUIERDO MD Finalized Date/Time: 05/13/20 11:07:53 Pt. Name: RAJIV TOVAR/Sex: 1995 Female Med Rec #: [id number] Physician: Aiden IZQUIERDO MD Financial #: [id number] Pt. Type: A Room/Bed: Admit/Disch: 05/10/20 07:43:57 - 05/10/20 15:00:00 Institution: Case Times FT Entry 1 Patient Times In Room 05/10/20 09:29:00 Out Room 05/10/20 10:27:00 Procedure Times Start 05/10/20 09:44:00 Stop 05/10/20 10:20:00 Anesthesia Times Start 05/10/20 09:29:00 Stop 05/10/20 10:27:00 Last Modified By: My Clalahan RN 05/10/20 10:27:42 General Comments: 1011- radiology manager called dr. guo read xray dilated tapers distally can't exclude small stone possible spasm , Dr. Izquierdo stated understanding. - joan turner 05/13/2020 Chart opened to review and send charges. Angela Leavitt CUSTOMER SERVICE COORDINATOR. Case Attendance FT Entry 1 Entry 2 Entry 3 Case Attendee Ankit AGUILAR, Linnea IZQUIERDO MD, Aiden ARAUJO MD, Ramandeep Cummings Role Performed Anesthesiologist Surgeon - Primary Surgeon - Assist 1 Bread Distributor Time In 05/10/20 09:29:00 05/10/20 09:40:00 05/10/20 09:45:00 Time Out 05/10/20 10:27:00 05/10/20 10:21:00 05/10/20 10:20:00 Procedure CHOLECYSTECTOMY CHOLECYSTECTOMY CHOLECYSTECTOMY LAPAROSCOPIC W/ LAPAROSCOPIC W/ LAPAROSCOPIC W/ CHOLANGI(.) CHOLANGI(.) CHOLANGI(.) Comments DR HUSAIN SUPERVISING Last Modified By: London RN, My Callahan RN, My Rubio RN 05/10/20 10:27:43 05/10/20 10:27:43 05/10/20 10:27:43 Entry 4 Entry 5 Entry 6 Case Attendee London TURNER, My Vlilalba RN, Bernadette Ortiz Cert. Pit Boss, Arlette Davila Role Performed Phd Intern - Primary Scrub - Primary Scrub - [...] Magalie R Role Performed Scrub - Primary Vine Pruner Time In 05/10/20 09:29:00 05/10/20 10:00:00 Time [...] Coy RN, Deejay Chowdhury RN, Angel Oglesby Pit Boss, Carlos Rock CST, Macie C Time Out [...] By: C (more content not included)... Normal [facility] Postoperative Documentson Postoperative Documents [id number]# 1.00CD:127 Normal [facility] Progress Note-Physicianon Progress Note-Physician Patient: RJAIV TOVAR Age: 25 years Sex: Female : [...] TID, # 10 tab(s), Refills(s) 0, Pharmacy: [facility]/pharmacy #[id number], 168, cm, 04/19/20 6:20:00 EDT, Height/Length Dosing, 58.5, kg, 04/19/20 6:20:00 EDT, Weight Dosing omeprazole 40 mg Cap-DR: 40 mg = 1 cap(s), Oral, Daily, # 30 cap(s), Refills(s) 2, Pharmacy: [facility]/pharmacy #[id number], 168, cm, 04/20/20 10:06:00 EDT, Height/Length Dosing, 59.5, kg, 04/20/20 10:06:00 EDT, Weight Dosing Documented Medications Documented desvenlafaxine 100 mg Tab-: 100 mg = 1 tab(s), Oral, Daily, Refills(s) 0, Depression Problem list: All Problems Biliary dyskinesia / SNOMED CT 089470484 / Confirmed Depression / SNOMED CT 96134473 / Confirmed Histories Past Medical History: No active or resolved past medical history items have been selected or recorded. Family History: Entire family history is negative. Procedure history: EGD (esophagogastroduoden oscopy) gastric outlet reduction ([id number]) on 04/29/2020 at 25 Years. section (07931612) on 07/23/2019 at 24 Years. Sinus (5794538784). Nasal cautery (846210768). Ankle (4613107). 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 Comments: 05/10/2020 8:26 EST - Kluding [employer] MERCHANT, Bernarda ovarian cyst drained Social History Social [...] EST Heart (more content not included)... Normal [facility] Comment on above: Result Comment: Elec [...] All Problems Biliary dyskinesia / SNOMED CT 246022301 / Confirmed Depression / SNOMED CT 11798762 / Confirmed Physical Examination Vital Signs 05/10/2020 [...] EST Apic (more content not included)... Normal [facility] Comment on above: Result Comment: Elec tronically Signed By: Bakari Husain Jr, DO\.br\Date and Time Signed: 05/13/20 13:20 EST Coding Summary.on 05-12-2020 Coding Summary. CODING DATE: 05/12/2020 FINAL [facility] STATUS: Home (Routine DC) PAYOR: Lucien ADMIT DX: REASON FOR VISIT DX: Z01.812 [...] Jaquez CphT Date Saved: 05/12/2020 09:53 pm [facility] Consent for Anesthesiaon Consent for Anesthesia [id number]# 1.00CD:127 [facility] Discharge Instructionson Discharge Instructions [id number]# 1.00CD:127 [facility] IntraOperative Documentson 1 07-11-2019 IntraOperative Documents [id number]# 1.00CD:127 [facility] Operative Reporton 0 Operative Report Date of Surgery: 05/10/2020 SURGEON: Aiden Izquierdo MD, FACS PRACTICE OFFICE ASSOCIATE: Ramandeep Araujo MD, FACS PREOPERATIVE DIAGNOSIS: Chronic [...] Aiden Izquierdo MD, FACS lkr Dictated: 05/10/2020 #[id number] Typed: 05/10/2020 #[id number] cc: Alon Weber M.D. Aiden Izquierdo MD, FACS [facility] Comment on above: Result Comment: Elec tronically Signed By: TIMBO POLK, Aiden Busby.ilana\Date and Time Signed: 05/11/20 08:04 EST Preoperative Documentson Preoperative Documents [id number]# 1.00CD:127 [facility] Preoperative Documents [id number]# 1.00CD:127 [facility] Consent for Treatmenton 04-24 Consent for Treatment [id number]#1 .00CD:127 [facility] Inpatient Patient Summaryon 05-10-2020 Inpatient Patient Summary [place] [id number] [facility] Clinical Discharge Instructions PERSON INFORMATION Name: RAJIV TOVAR [facility]#:[id number] PHYSICIANS Admitting Physician: Aiden IZQUIERDO MD Attending Physician: Aiden IZQUIERDO MD PCP: Gus POLK, Alon Discharge Diagnosis: Chronic cholecystitis with calculus Comment: PATIENT EDUCATION INFORMATION Instructions: Post Op Patient Instructions - FT (CUSTOM); How to Use an Incentive Spirometer; Izquierdo - Post Op Instructions (CUSTOM) Medication Leaflets: Follow up: With: Address: When: Aiden IZUQIERDO [address], [address] [place] [phone] [employer] (1) Within 7 to 10 days Comments: Call for any problems. Call for followup appointment Type Location Start [facility] Follow Up [facility] 05/16/2020 1:00 PM 05/16/2020 1:15 PM Confirmed MEDICATION LIST Medications to Continue with No Changes Other Medications desvenlafaxine (desvenlafaxine 100 mg Tab-) 1 Tablets By Mouth every day. omeprazole (omeprazole 40 mg Cap-DR) 1 Capsules By Mouth every day. Refills: 2. ondansetron (Zofran ODT 4 mg Tab) 1 Tablets By Mouth 3 times a day. Refills: 0. Comment: Normal [facility] IntraOperative Documentson 07-10-2019 IntraOperative Documents [id number]# 1.00CD:127 Normal [facility] Main OR PACU I Recordon 04-24 Main OR PACU I Record PACU Phase I Document Type FT Summary Primary Physician: Aiden IZQUIERDO MD Finalized Date/Time: 05/10/20 11:13:04 Pt. Name: RAJIV TOVAR/Sex: 1995 Female Med Rec #: [id number] Physician: Aiden IZQUIERDO MD Financial #: [id number] Pt. Type: A Room/Bed: AS06/24 Admit/Disch: 05/10/20 [...] Yarbrough RN 05/10/20 11:13:03 Finalized By: Belkys aYrbrough RN Document Signatures Signed By: Belkys Yarbrough RN 05/10/20 11:13 Normal [facility] Main OR PACU II Recordon Main OR PACU II Record PACU Phase II Document Type FT Summary Primary Physician: Aiden IZUQIERDO MD Finalized Date/Time: 05/10/20 15:45:07 Pt. Name: RAJIV TOVAR Pilar/Sex: 1995 Female Med Rec #: [id number] Physician: Aiden IZQUIERDO MD Financial #: [id number] Pt. Type: A Room/Bed: Admit/Disch: 05/10/20 07:43:57 [...] By: Marcelina Cadet RN 05/10/20 15:45 Normal [facility] Main OR Preoperative Recordo n 05-10-2020 Main OR Preoperative Record PreOp Document Type FT Summary Primary Physician: Aiden IZQUIERDO MD Finalized Date/Time: 05/10/20 10:00:50 Pt. Name: RAJIV TOVAR /Sex: 1995 Female Med Rec #: [id number] Physician: Aiden IZQUIERDO MD Financial #: [id number] Pt. Type: A Room/Bed: Admit/Disch: 05/10/20 07:43:57 [...] By: My Callahan RN 05/10/20 10:00 Normal [facility] Monitor Recordon 05-10-2020 Monitor Record [id number]# 1.00CD:127 Normal [facility] Outpatient Surgery Discharge Instructionon 05-10-2020 Outpatient Surgery Discharge Instruction [place] [id number] Patient Discharge Instructions PERSON INFORMATION Name: RAJIV [...] With: Address: When: Aiden [address], [address] [place] [address] [employer] () Within 7 to 10 days Comments: Call for any problems. Call for followup appointment Type Location [facility] Follow Up [facility] 05/16/2020 1:00 PM 05/16/2020 1:15 PM Confirmed Pharmacy Information: Thank you for choosing [facility] HERE ARE THE MEDICATION CHANGES [...] possible. ? If the spirometer includes a womens volleyball coach indicator, use this to guide you [...] pain from co (more content not included)... [facility] Patient Education - Texton 1 07-10-2019 [...] possible. ? If the spirometer includes a womens volleyball coach indicator, use this to guide you [...] 10/21/2007 Document Revised: 07/03/2018 Document Reviewed: 04/23/2018 [employer] Patient Education ? 2019 [employer]. [place], [place] Aiden Izquierdo MD, FACS POST OPERATIVE [...] or r (more content not included)... Normal [facility] Progress Note-Physicianon Progress Note-Physician Patient: RAJIV TOVAR Age: 25 years Sex: Female : 1995 Associated Diagnoses: None Author: Aiden IZQUIERDO MD Postoperative Information Date/ Time: 05/10/2020 10:26:00 Preoperative Diagnosis: Chronic cholecystitis with calculus ([id number] K80.10, Working, Medical). Postoperative Diagnosis: Same pending pathology. Procedure: Laparoscopic Cholecystectomy with intraoperative chloangiogram. Performed by: Aiden Izquierdo MD. Bread Distributor: Ramandeep Araujo MD. Specimens Removed: Gallbladder. Estimated Blood Loss: 5 ml. Complications: None. Normal [facility] Comment on above: Result Comment: Elec tronically Signed By: Aiden IZQUIERDO MD\.br\Date and Time Signed: 05/10/20 10:27 EST Progress Note-Physician Patient: RAJIV TOVAR Age: 25 years Sex: Female : 1995 Associated Diagnoses: None Author: Aiden IZQUIERDO MD Basic Information No change in History and Physical Normal [facility] Comment on above: Result Comment: Elec [...] ALSO POSSIBLE. CLINICAL HISTORY: Cholelithiasis. COMMENT: Limited njqoy-fj-[id number] C-arm images were obtained in the OR, [...] Dose: Ka,r in mGy = 3.4 Normal [facility] Coding Summary.on 05-08-2020 Coding Summary. CODING DATE: 05/07/2020 FINAL [facility] STATUS: Home (Routine DC) PAYOR: Reba [...] CphT Date Saved: 05/07/2020 10:24 pm Normal [facility] Coding Summary.on 05-05-2020 Coding Summary. CODING DATE: 05/05/2020 FINAL [facility] STATUS: Home (Routine DC) PAYOR: Reba APC DESCRIPTION 5301 Level 1 Upper GI Procedures ADMIT DX: REASON FOR VISIT DX: R10.13 Epigastric pain FINAL DX: PRINCIPAL: R10.13 Epigastric pain SECONDARY: R10.11 Right upper quadrant pain F41.9 Anxiety disorder, unspecified PYMT PROC APC STAT DESCRIPTION DOCTOR NAME DATE 25637 5301 Ezequiel WEST MD 04/29/2020 phagogastroduodenosco py, flexible, transoral; with biopsy, single or multiple 16662 Anesthesia for upper Husain Bakari Berry DO 04/29/2020 gastrointestinal endoscopic procedures, endoscope introduced proximal to duodenum; not otherwise specified NOTE: The code number assigned matches the documented diagnosis and / or procedure in the patient's chart. However, the narrative phrase printed from the coding software may appear abbreviated, or result in slightly different terminology. Revised Coded By: Eugenia aMe Revised Date Saved: 05/05/2020 11:48 am [facility] Consent for Procedure/Surger yon 05-05-2020 Consent for Procedure/Surgery [id number]#1 .00CD:127 [facility] Formson 05-05-2020 Forms [id number]#1 .00CD:127 [facility] Priority Order-Mitchell 2019 Priority Order-STAT Comment Invalid Interpretation Code [facility] Comment on above: Result Comment: Rece ived Performed at: [facility] [address] [facility], [place] [id number] [facility] Johanny Lozano Performed By: #### 2 [id number], SARS-CoV-2, MARY #### [facility] [address] [place] [address] SARS-CoV-2, NAAon 05-05-2020 SARS-CoV-2 (COVID-19) RNA MARY+probe Ql (Resp) Not detected Invalid Interpretation Code Not Detected [facility] Comment on above: Result Comment: This nucleic acid amplification test was developed and its performance characteristics determined by [employer]. Nucleic acid amplification tests include PCR and [...] detected) result in this assay. Performed at: [facility] [address] [facility] [place] [id number] MD Indira Washington Performed By: #### 2 [id number], SARS-CoV-2, MARY #### [facility] [address] [place] [address] B hCG Qualon 05-04-2020 Beta hCG Ql Negative Normal [facility] Comment on above: Performed By: #### 2 [id number] #### [facility] [address] [place] [address] CBC w/Indiceson 05-04-2020 Erythrocyte distribution width (RBC) [Ratio] 13.1 % Normal 10.9-14.2 [facility] Comment on above: Performed By: #### 2 698209, [id number] ####[address] [address] Hematocrit (Bld) [Volume fraction] 40.5 % Normal 34.0-46.0 [facility] Comment on above: Performed By: #### 2 324568, 2917078 ####[address] [address] Hemoglobin (Bld) [Mass/Vol] 14.0 g/dL Normal 12.0-16.0 [facility] Comment on above: Performed By: #### 2 270771, 0423614 ####[address] [address] MCH (RBC) [Entitic mass] 31.0 pg Normal 27.0-34.0 [facility] Comment on above: Performed By: #### 2 904717, 6310114 ####[address] [address] MCHC (RBC) [Mass/Vol] 34.6 g/dL Normal 31.4-36.0 [facility] Comment on above: Performed By: #### 2 178264, 8665108 ####[address] [address] MCV (RBC) [Entitic vol] 89.7 fL Normal 80.0-100.0 [facility] Comment on above: Performed By: #### 2 338300, 2861908 ####[address] [address] Platelet mean volume (Bld) [Entitic vol] 9.1 fL Normal 6.4-10.8 [facility] Comment on above: Performed By: #### 2 483139, 5219839 ####[address] [address] Platelets (Bld) [#/Vol] 245.0 E9/L Normal 150.0-500.0 [facility] Comment on above: Performed By: #### 2 602611, 6564574 ####[facility] [address] [place] [address] RBC (Bld) [#/Vol] 4.5 E12/L Normal 4.3-5.9 [facility] Comment on above: Performed By: #### 2 307881, 7796747 ####[facility] [address] [place] [address] WBC corrected for nucl RBC Auto (Bld) [#/Vol] 5.6 E9/L Normal 4.0-11.0 [facility] Comment on above: Performed By: #### 2 253170, 6446253 ####[address] [address] Consent for Treatmenton 04-24 Consent for Treatment [id number] .00CD:127 Normal [facility] Hep Func Panelon 05-04-2020 Albumin [Mass/Vol] 4.2 g/dL Normal 3.3-5.0 [facility] Comment on above: Order Comment: if no t already done. Performed By: #### 2 580644, 4624104 ####[address] [address] Albumin/Globulin (S) [Mass conc ratio] 1.4 Normal 1.1-2.2 [facility] Comment on above: Order Comment: if no t already done. Performed By: #### 2 245283, 2476805 ####[facility] [address] [place] [address] ALP [Catalytic activity/Vol] 112 Int._Unit/L High 21-98 [facility] Comment on above: Order Comment: if no t already done. Performed By: #### 2 507443, 6646169 ####[facility] [address] [place] [address] ALT No additional P-5'-P [Catalytic activity/Vol] 129 Int._Unit/L High 6-46 [facility] Comment on above: Order Comment: if no t already done. Performed By: #### 2 741458, 1300359 ####[facility] [address] [place] [address] AST [Catalytic activity/Vol] 28 Int._Unit/L Normal 5-43 [facility] Comment on above: Order Comment: if no t already done. Performed By: #### 2 500521, 3243360 ####[address] [address] Bilirubin [Mass/Vol] 0.7 mg/dL Normal 0.0-1.1 [facility] Comment on above: Order Comment: if no t already done. Performed By: #### 2 298524, 3558793 ####[address] [address] Bilirubin.direct [Mass/Vol] 0.1 mg/dL Normal 0.1-0.4 [facility] Comment on above: Order Comment: if no t already done. Performed By: #### 2 462110, 4291046 ####[facility] [address] [place] [address] Bilirubin.indirect [Mass or moles/Vol] 0.6 mg/dL Normal 0.1-0.9 [facility] Comment on above: Order Comment: if no t already done. Performed By: #### 2 093072, 9230689 ####[address] [address] Globulin (S) [Mass/Vol] 3.1 g/dL Normal 1.4-4.0 [facility] Comment on above: Order Comment: if no t already done. Performed By: #### 2 697044, 4967775 ####[facility] [address] [place] [address] Protein [Mass/Vol] 7.3 g/dL Normal 6.0-7.8 [facility] Comment on above: Order Comment: if no t already done. Performed By: #### 2 424767, 9408439 ####[facility] [address] [place] [address] Ambulatory Clinical Summaryo n 05-03-2020 Ambulatory Clinical Summary {[id number]}CD:[id number] [facility] Consent for Procedure/Surger yon 05-03-2020 Consent for Procedure/Surgery [id number]#1 .00CD:127 [facility] Consent for Procedure/Surgery [id number]#1 .00CD:127 [facility] Formson 05-03-2020 Forms [id number]#1 .00CD:127 [facility] Forms [id number] .00CD:127 [facility] Physician Orderon 05-03-2020 Physician Order [id number] .00CD:127 [facility] Physician Referralon 020 Physician Referral [id number] .00CD:127 [facility] Postoperative Documentson Postoperative Documents [id number]# 1.00CD:127 [facility] Progress Note-Physicianon Progress Note-Physician Patient: RAJIV [...] TID, # 10 tab(s), Refills(s) 0, Pharmacy: [facility]/pharmacy #[id number], 168, cm, 04/19/20 6:20:00 EDT, Height/Length Dosing, 58.5, kg, 04/19/20 6:20:00 EDT, Weight Dosing omeprazole 40 mg Cap-DR: 40 mg = 1 cap(s), Oral, Daily, # 30 cap(s), Refills(s) 2, Pharmacy: [facility]/pharmacy #[id number], 168, cm, 04/20/20 10:06:00 [...] Use: Current Comment: [place]olegar[place] - 04/19/2020 06:50 Chrisitana Yee RN Substance Abuse 04/19/2020 Use: Current Comment: [place] - 04/19/2020 06:50 Christiana Yee RN Tobacco 04/19/2020 Tobacco Use: Never (less than 100 in l Type: Cigarettes 04/20/2020 Tobacco Use: Never (less than 100 in l . Physical Examination Airway: Mallampati classification: II (soft palate, fauces, uvula visible). Respiratory: Lungs are clear to auscultation. Cardiovascular: Regular rhythm. Neurologic: Alert, Oriented. Plan [place] [employer] Anesthesiologists (ASA) physical status classification: Class II. Anesthetic Preoperative Plan Anesthesia: General. . Anesthetic plan, risks, benefits, and alternatives discussed with the patient and/or family. Communication: face to face with (patient 5 minutes, Patient educated on smoking cesstation). Normal [facility] Comment on above: Result Comment: Elec [...] vomiting. Plan Transfer/ Discharge: Condition stable. Normal [facility] Comment on above: Result Comment: Elec tronically Signed By: Bakari Husain Jr, DO\.br\Date and Time Signed: 05/03/20 09:37 EST Consenton 05-02-2020 Consent [id number] .00CD:127 [facility] Discharge Instructionson Discharge Instructions [id number] .00CD:127 Normal [facility] General Surgery Office/Clini c Noteon 05-02-2020 [...] When Contact Information TIMBO POLK, Aiden [address] [place] [address]- Additional Instructions: F/U POST OP. [...] Family History Family history is negative Normal [facility] Comment on above: Result Comment: Elec tronically Signed By: Aiden IZQUIERDO MD\.br\Date and Time Signed: 05/02/20 15:39 EST\.br\Electronically Co-Signed By: Mildred Cook MA.br\Date and Time Co-Signed: 05/02/20 15:25 EST IntraOperative Documentson 1 07-02-2019 IntraOperative Documents [id number] .00CD:127 Normal [facility] IntraOperative Documents [id number] .00CD:127 Normal [facility] Main OR Intraoperative Recor don 05-02-2020 Main OR Intraoperative Record IntraOp Document Type FT Summary Primary Physician: Ezequiel MARTINEZ MD Finalized Date/Time: 05/02/20 08:23:39 Pt. Name: AKHIL RAJIV Quezada/Sex: 1995 Female Med Rec #: [id number] Physician: Ezequiel MARTINEZ MD Financial #: [id number] Pt. Type: O Room/Bed: / Admit/Disch: 04/29/20 10:12:58 - 04/29/20 23:59:59 Institution: Case Times FT Entry 1 Patient Times In Room 04/29/20 10:52:00 Out Room 04/29/20 11:04:00 Procedure Times Start 04/29/20 10:56:00 Stop 04/29/20 10:59:00 Anesthesia Times Start 04/29/20 10:52:00 Stop 04/29/20 11:04:00 Last Modified By: Russell Maloney RN 04/29/20 11:04:12 General Comments: 05/02/2020 Chart opened to review and send charges. F Dagmar CUSTOMER SERVICE COORDINATOR. Case Attendance FT Entry 1 Entry 2 Entry 3 Case Attendee Rodrigue Berry DO, Bakari MARTINEZ MD, Russell Lawrence RN Role Performed Anesthesiologist of Surgeon - Primary Phd Intern - Primary Record Time In 04/29/20 10:52:00 04/29/20 10:52:00 04/29/20 10:52:00 Time Out 04/29/20 11:04:00 04/29/20 11:04:00 04/29/20 11:04:00 Procedure EGD(.) EGD(.) EGD(.) Comments Last Modified By: Haider TURNER, Russell Maloney RN, Russell Santos RN 04/29/20 11:04:13 04/29/20 11:04:13 04/29/20 11:04:13 Entry 4 Entry 5 Entry 6 Case Attendee Mere TURNER, Charlotte Roberts CST, Aria Role Performed Phd Intern - Primary Scrub - Primary Staff - [...] Arm P (more content not included)... Normal [facility] Ezequiel Martinez M.D. [address] [place] [address] Re: RAJIV TOVAR Date of : 1995 [...] report following her procedure. Sincerely Aiden Kaplan [facility] Coding Summary.on 04-30-2020 Coding Summary. CODING DATE: 04/29/2020 FINAL [facility] STATUS: Home (Routine DC) PAYOR: Reba [...] Jaquez CphT Date Saved: 04/29/2020 11:14 pm [facility] Consent for Treatmenton Consent for Treatment [id number] .00CD:127 [facility] Endoscopic Procedure Report - Otheron 04-29-2020 [...] surgery for right upper quadrant pain/cholelithiasis Normal [facility] Comment on above: Result Comment: Elec tronically Signed By: Ezequiel MARTINEZ MD\.br\Date and Time Signed: 04/29/20 11:03 EST Other Comment: Lorri frazier Attachment - attachment storage system not supported [id number] Can be viewed in source systemMissing Attachment - attachment storage system not supported [id number] Can be viewed in source systemMissing Attachment - attachment storage system not supported [id number] Can be viewed in source systemMissing Attachment - attachment storage system not supported [id number] Can be viewed in source systemMissing Attachment - attachment storage system not supported [id number] Can be viewed in source system Inpatient Patient Summaryon 04-29-2020 Inpatient Patient Summary [place] [id number] [facility] Clinical Discharge Instructions PERSON INFORMATION Name: RAJIV TOVAR PHYSICIANS Admitting Physician: Ezequiel MARTINEZ MD Attending Physician: Ezequiel MARTINEZ MD PCP: Alon Weber MD Discharge Diagnosis: Abdominal pain Comment: PATIENT EDUCATION INFORMATION Instructions: Medication Leaflets: Follow up: With: Address: When: Aiden IZQUIERDO [address], [address] [place] [address] Business (1) With: Address: When: Ezequiel [facility] [address], [place] [address] Within 2 weeks Type Location Start [facility] Follow Up [facility] 05/16/2020 1:00 PM 05/16/2020 1:15 PM [...] times a day. Refills: 0. Comment: Normal [facility] Main OR PACU I Recordon Main OR PACU I Record PACU Phase I Document Type FT Summary Primary Physician: Ezequiel MARTINEZ MD Finalized Date/Time: 04/29/20 12:13:51 Pt. Name: RAJIV TOVAR/Sex: 1995 Female Med Rec #: [id number] Physician: Ezequiel MARTINEZ MD Financial #: [id number] Pt. Type: O Room/Bed: / Admit/Disch: 04/29/20 [...] By: Belkys Yarbrough RN 04/29/20 12:13 Normal [facility] Main OR Preoperative Recordo n 04-29-2020 Main OR Preoperative Record Holding Area Document Type FT Summary Primary Physician: Ezequiel MARTINEZ MD Finalized Date/Time: 04/29/20 10:21:44 Pt. Name: RAJIV TOVAR/Sex: 1995 Female Med Rec #: [id number] Physician: Ezequiel MARTINEZ MD Financial #: [id number] Pt. Type: O Room/Bed: / Admit/Disch: 04/29/20 [...] By: Marielle Pineda RN 04/29/20 10:21 Normal [facility] Monitor Recordon 04-29-2020 Monitor Record [id number]# 1.00CD:127 Normal [facility] Outpatient Surgery Discharge Instructionon 04-29-2020 Outpatient Surgery Discharge Instruction [place] [id number] Patient Discharge Instructions PERSON INFORMATION Name: RAJIV [...] Aiden IZQUIERDO [address], [address] [place] [address] Business (1) With: Address: When: [facility] [address] [place] [address] Within 2 weeks Type Location [facility] Follow Up [facility] 05/16/2020 1:00 PM 05/16/2020 1:15 PM Confirmed Pharmacy Information: Thank you for choosing [facility] HERE ARE THE MEDICATION CHANGES [...] Refills: 0. PATIENT EDUCATION INFORMATION Instructions: Normal [facility] Patient Education - Texton 1 06-29-2019 Patient Education - Text Normal [facility] Priority Order-Mitchell 2019 Priority Order-STAT Comment Invalid Interpretation Code [facility] Comment on above: Result Comment: Rece ived Performed at: [facility] [address] [place], [place] [id number] MD Indira Washington Performed By: #### 2 [id number], SARS-CoV-2, MARY #### [facility] [address] [place] [address] SARS-CoV-2, NAAon 04-23-2020 SARS-CoV-2 (COVID-19) RNA MARY+probe Ql (Resp) Not detected Invalid Interpretation Code Not Detected [facility] Comment on above: Result Comment: This nucleic acid amplification test was developed and its performance characteristics determined by [employer]. Nucleic acid amplification tests include PCR and [...] detected) result in this assay. Performed at: [facility] [address] [facility] [place] [id number] MD Indira Washington Performed By: #### 2 [id number], SARS-CoV-2, MARY #### [facility] [address] [place] [address] Ambulatory Clinical Summaryo n 04-20-2020 Ambulatory Clinical Summary {[id number]}CD:[id number] Normal [facility] Coding Summary.on 04-20-2020 Coding Summary. CODING DATE: 04/20/2020 FINAL [facility] STATUS: Home (Routine DC) PAYOR: Lucien APC DESCRIPTION 5522 Level 2 Imaging without [...] Revised Date Saved: 04/20/2020 07:55 am Normal [facility] Consent for Procedure/Surger yon 04-20-2020 Consent for Procedure/Surgery [id number] .00CD:127 Normal [facility] Gastroenterology Office/Clin ic Noteon 04-20-2020 Gastroenterology Office/Clinic Note Chief Complaint f/u to ER RUQ HPI Staff This is a 24 year old female who presents today for a follow up for an ED visit for RUQ pain. History of Present Illness 24 years old white female with no significant past medical history except for anxiety, referred to me from [facility] to be evaluated for right upper quadrant abdominal pain, she reports right upper quadrant abdominal pain, started 6 weeks ago, sporadic, moderate in nature except for the last time when it was severe for which she went to [facility], she had normal CBC, CMP and lipase, [...] Daily, # 30 cap(s), Refills(s) 2, Pharmacy: [facility]/pharmacy #[id number], 168, cm, 04/20/20 10:06:00 EDT, Height/Length Dosing, 59.5, kg, 04/20/20 10:06:00 EDT, Weight Dosing EGD Endoscopy (Hospital Procedure) 2. Anxiety (F41.9: Anxiety disorder, unspecified) 3. Nausea (R11.0: Nausea) Ordered: omeprazole, 40 mg = 1 cap(s), Oral, Daily, # 30 cap(s), Refills(s) 2, [id number] 168, cm, 04/20/20 10:06:00 EDT, Height/Length Dosing, 59.5, kg, 04/20/20 10:06:00 EDT, Weight Dosing EGD Endoscopy (Hospital Procedure) Follow-up With When Contact Information Ezequiel MARTINEZ MD Within 2 weeks [facility] [address] [facility], [place] [address]- Additional Instructions: Patient Education Abdominal [...] Family History Family history is negative Normal [facility] Comment on above: Result Comment: Elec [...] directed by your caregiver. ? Only take kpzr-jpm-scqpvxk or prescription medicines for pain, discomfort, or [...] Document Reviewed: 01/26/2009 ExitCare? Patient Information ?2013 [employer]. Family Medicine Abdominal Pain Abdominal pain can [...] directed by your caregiver. ? Only take narx-htq-iiifvag or prescription medicines for pain, discomfort, or [...] Document Reviewed: 01/26/2009 ExitCare? Patient Information ?2013 [employer]. Normal [facility] Physician Orderon 04-20-2020 Physician Order [id number]# 1.00CD:127 Normal [facility] Physician Order [id number]. 00CD:127 Normal [facility] Auto Diffon 04-19-2020 Basophils/100 WBC (Bld) 0.6 % Normal 0.0-2.0 [facility] Comment on above: Order Comment: Order Added by Discern Expert. Performed By: #### 2 [id number] #### [facility] [address] [place] [address] Basophils/Leukocytes Auto (Bld) [Pure # fraction] 0.0 E9/L Normal 0.0-0.2 [facility] Comment on above: Order Comment: Order Added by Discern Expert. Performed By: #### 2 [id number] #### [facility] [address] [place] [address] Eosinophils/100 WBC (Bld) 0.2 % Normal 0.0-8.0 [facility] Comment on above: Order Comment: Order Added by Discern Expert. Performed By: #### 2 [id number] #### [facility] [address] [place] [address] Eosinophils/Leukocyt es Auto (Bld) [Pure # fraction] 0.0 E9/L Normal 0.0-0.5 [facility] Comment on above: Order Comment: Order Added by Discern Expert. Performed By: #### 2 [id number] #### [facility] [address] [place] [address] Lymphocytes/100 WBC (Bld) 34.4 % Normal 14.0-50.0 [facility] Comment on above: Order Comment: Order Added by Discern Expert. Performed By: #### 2 [id number] #### [facility] [address] [place] [address] Lymphocytes/Leukocyt es Auto (Bld) [Pure # fraction] 2.5 E9/L Normal 1.0-4.0 [facility] Comment on above: Order Comment: Order Added by Discern Expert. Performed By: #### 2 [id number] #### [facility] [address] [place] [address] Monocytes/100 WBC (Bld) 6.1 % Normal 4.0-14.0 [facility] Comment on above: Order Comment: Order Added by Discern Expert. Performed By: #### 2 [id number] #### [facility] [address] [place] [address] Monocytes/Leukocytes Auto (Bld) [Pure # fraction] 0.4 E9/L Normal 0.2-1.0 [facility] Comment on above: Order Comment: Order Added by Discern Expert. Performed By: #### 2 [id number] #### [facility] [address] [place] [address] Neutrophils/100 WBC (Bld) 58.7 % Normal 36.0-75.0 [facility] Comment on above: Order Comment: Order Added by Discern Expert. Performed By: #### 2 [id number] #### [facility] [address] [place] [address] Neutrophils/Leukocyt es Auto (Bld) [Pure # fraction] 4.2 E9/L Normal 2.0-7.5 [facility] Comment on above: Order Comment: Order Added by Discern Expert. Performed By: #### 2 [id number] #### [facility] [address] [place] [address] BMPon 04-19-2020 Creatinine [Mass/Vol] 0.8 mg/dL Normal 0.5-1.3 [facility] Comment on above: Performed By: #### 2 [id number] #### [facility] [address] [place] [address] Urea nitrogen [Mass/Vol] 12 mg/dL Normal 5-21 [facility] Comment on above: Performed By: #### 2 [id number] #### [facility] [address] [place] [address] Urea nitrogen/Creatinine [Mass ratio] 15 No Units Normal 10- [facility] Comment on above: Performed By: #### 2 [id number] #### [facility] [address] [place] [address] Anion gap [Moles/Vol] 11 mmol/L Normal 6-16 [facility] Comment on above: Performed By: #### 2 [id number] #### [facility] [address] [place] [address] Calcium [Mass/Vol] 9.7 mg/dL Normal 8.9-11.1 [facility] Comment on above: Performed By: #### 2 [id number] #### [facility] [address] [place] [address] Chloride [Moles/Vol] 103 mmol/L Normal 101-111 [facility] Comment on above: Performed By: #### 2 [id number] #### [facility] [address] [place] [address] CO2 [Moles/Vol] 27 mmol/L Normal 21-31 [facility] Comment on above: Performed By: #### 2 [id number] #### [facility] [address] [place] [address] Glucose [Mass/Vol] 97 mg/dL Normal 55-199 [facility] Comment on above: Result Comment: If t his glucose result represents a fasting glucose, interpretation should refer to the following reference range: 55-99 mg/dL Performed By: #### 2 [id number] #### [facility] [address] [place] [address] Potassium [Moles/Vol] 3.5 mmol/L Normal 3.5-5.3 [facility] Comment on above: Performed By: #### 2 [id number] #### [facility] [address] [place] [address] Sodium [Moles/Vol] 137 mmol/L Normal 135-145 [facility] Comment on above: Performed By: #### 2 [id number] #### [facility] [address] [place] [address] CBC w/ Auto Diffon 10--202 0 Erythrocyte distribution width (RBC) [Ratio] 13.3 % Normal 10.9-14.2 [facility] Comment on above: Performed By: #### 2 [id number] #### [facility] [address] [place] [address] Hematocrit (Bld) [Volume fraction] 37.6 % Normal 34.0-46.0 [facility] Comment on above: Performed By: #### 2 [id number] #### [facility] [address] [place] [address] Hemoglobin (Bld) [Mass/Vol] 13.4 g/dL Normal 12.0-16.0 [facility] Comment on above: Performed By: #### 2 [id number] #### [facility] [address] [place] [address] MCH (RBC) [Entitic mass] 31.9 pg Normal 27.0-34.0 [facility] Comment on above: Performed By: #### 2 [id number] #### [facility] [address] [place] [address] MCHC (RBC) [Mass/Vol] 35.7 g/dL Normal 31.4-36.0 [facility] Comment on above: Performed By: #### 2 [id number] #### [facility] [address] [place] [address] MCV (RBC) [Entitic vol] 89.2 fL Normal 80.0-100.0 [facility] Comment on above: Performed By: #### 2 [id number] #### [facility] [address] [place] [address] Platelet mean volume (Bld) [Entitic vol] 9.4 fL Normal 6.4-10.8 [facility] Comment on above: Performed By: #### 2 [id number] #### [facility] [address] [place] [address] Platelets (Bld) [#/Vol] 219.0 E9/L Normal 150.0-500.0 [facility] Comment on above: Performed By: #### 2 [id number] #### [facility] [address] [place] [address] RBC (Bld) [#/Vol] 4.2 E12/L Low 4.3-5.9 [facility] Comment on above: Performed By: #### 2 [id number] #### [facility] [address] [place] [address] WBC corrected for nucl RBC Auto (Bld) [#/Vol] 7.2 E9/L Normal 4.0-11.0 [facility] Comment on above: Performed By: #### 2 [id number] #### [facility] [address] [place] [address] Consent for Treatmenton 03-25 Consent for Treatment [id number] .00CD:127 Normal [facility] Discharge Instructionson Discharge Instructions [id number] 1.00CD:127 Normal [facility] ED Clinical Summaryon 2019 ED Clinical Summary [address] [id number] ED Clinical Summary Person Information [facility]: [facility] Age[facility] 24 Years : 1995 Sex: Female Language: Ecuadorean PCP: Alon Weber MD Marital Status: Single [...] 08:58:55 04/19/2020 08:58:55 04/19/2020 08:58:55 ADDRESS: [address] [facility] [id number] PHYS DOC NOTES: Addendum by Laureano Phillip DO on April 19, 2020 08:26:02 EDT MEDICAL INFORMATION: Prescriptions Given: New Medications [id number], [address], [place] [id number], [phone] dicyclomine (dicyclomine 20 mg Tab) 1 Tablets By Mouth 3 times a day for 7 Days. Refills: 0. ondansetron (Zofran ODT 4 mg Tab) 1 Tablets By Mouth 3 times a day. Refills: 0. PATIENT EDUCATION INFORMATION: Instructions: Cholelithiasis Follow up: With: Address: When: [facility], [address] [place] [address] Business (1) In 3 days 04/22/2020 DIAGNOSIS: 1:Abdominal pain; Biliary colic; Gall stone; Nausea Normal [facility] ED Note-Nursingon 04-19-2020 ED Note-Nursing Report received from Zacarias Cuevas RN. Patient resting on cart. Updated on plan of care. Denies any needs at this time. Call light in reach. Normal [facility] ED Note-Physicianon 04-19-20 ED Note-Physician Basic Information [...] Diagnosis: Abdominal pain, cholelithiasis, biliary colic Normal [facility] Comment on above: Result Comment: Elec [...] medicine. HOME CARE INSTRUCTIONS ? Only take fjse-ykr-zwcmpoz or prescription medicines for pain, discomfort, or [...] Document Reviewed: 12/02/2013 ExitCare? Patient Information ?2015 [employer]. This information is not intended to replace advice given to you by your health care provider. Make sure you discuss any questions you have with your health care provider. Normal [facility] ED Patient Summaryon 020 ED Patient Summary [address] [address] Patient Discharge Instructions Person Information Name: RAJIV TOVAR Age: 24 Years Arrival Date: 04/19/2020 06:10:12 Discharge Diagnosis: 1:Abdominal pain; Biliary colic; Gall stone; Nausea Primary Care Physician: Alon Weber MD Provider Information Primary Provider: Susana Belcher M.D. Advanced Philosophy Professor:None The exam and treatment you received in the Emergency Department were for an urgent problem and are not intended as complete care. It is important that you follow up with a doctor, nurse practitioner, or physician?s orthotics prosthetics assistant for ongoing care. If your symptoms become worse or you do not improve as expected and you are unable to reach your usual health care provider, you should return to the Emergency Department. We are available 24 hours a day. RAJIV TOVAR has been given the following list of patient education materials, prescriptions and follow-up instructions: Follow-up Instructions: With: Address: When: [facility], [address] [place] [address] Business (1) In 3 days 04/22/2020 In the event that this physician does not participate in your insurance network, please consult with your insurance company to find a nearby participating provider. Patient Education Materials: Cholelithiasis A MESSAGE TO ALL PATIENTS REGARDING OPIOIDS PRESCRIPTION OPIOIDS: WHAT YOU NEED TO KNOW Prescription opioids can be used to help relieve dkdjymze-oj-wwfbmp pain and are often prescribed following a [...] be struggling with addiction, tell your health emergency care tech and ask for guidance or call [facility]S National Helpline at 9-433-3 (more content not included)... Normal [facility] Hep Func Panelon 04-19-2020 Bilirubin.indirect [Mass or moles/Vol] UTC Abnormal 0.1-0.9 [facility] Comment on above: Result Comment: Resu lt verified by Discern Rule. Performed result UTC (Unable to Calculate) was sent as an Alpha code due the inability to calculate a valid numeric value. Performed By: #### 2 [id number] #### [facility] [address] [place] [address] Albumin [Mass/Vol] 4.3 g/dL Normal 3.3-5.0 [facility] Comment on above: Performed By: #### 2 [id number] #### [facility] [address] [place] [address] Albumin/Globulin (S) [Mass conc ratio] 1.5 Normal 1.1-2.2 [facility] Comment on above: Performed By: #### 2 [id number] #### [facility] [address] [place] [address] ALP [Catalytic activity/Vol] 77 Int._Unit/L Normal 21-98 [facility] Comment on above: Performed By: #### 2 [id number] #### [facility] [address] [place] [address] ALT No additional P-5'-P [Catalytic activity/Vol] 59 Int._Unit/L High 6-46 [facility] Comment on above: Performed By: #### 2 [id number] #### [facility] [address] [place] [address] AST [Catalytic activity/Vol] 36 Int._Unit/L Normal 5-43 [facility] Comment on above: Performed By: #### 2 [id number] #### [facility] [address] [place] [address] Bilirubin [Mass/Vol] 0.4 mg/dL Normal 0.0-1.1 [facility] Comment on above: Performed By: #### 2 [id number] #### [facility] [address] [place] [address] Bilirubin.direct [Mass/Vol] mg/dL Normal 0.1-0.4 [facility] Comment on above: Performed By: #### 2 [id number] #### [facility] [address] [place] [address] Globulin (S) [Mass/Vol] 2.8 g/dL Normal 1.4-4.0 [facility] Comment on above: Performed By: #### 2 [id number] #### [facility] [address] [place] [address] Protein [Mass/Vol] 7.1 g/dL Normal 6.0-7.8 [facility] Comment on above: Performed By: #### 2 [id number] #### [facility] [address] [place] [address] Lipase Levelon 04-19-2020 Lipase [Catalytic activity/Vol] 43 U/L Normal 13-58 [facility] Comment on above: Performed By: #### 2 [id number] #### [facility] [address] [place] [address] PT & PTTon 04-19-2020 aPTT Coag (PPP) [Time] 30.2 second(s) Normal 25.1-36.5 [facility] Comment on above: Result Comment: Hepa rin therapeutic range (represented by Anti-Factor Xa activity of 0.2 - 0.4 U/mL) corresponds to PTT of 56.6 - 109.0 sec. Performed By: #### 2 [id number] #### [facility] [address] [place] [address] INR Coag (PPP) [Relative time] 1.0 {INR} Invalid Interpretation Code [facility] Comment on above: Result Comment: INR results are specifically intended to assess patients stabilized on long-term Anticoagulation therapy suggested INR?s ?Less Intensive Anticoagulation? 2.0 ? 3.0 Conventional Range 3.0 ? 4.5 Performed By: #### 2 [id number] #### [facility] [address] [place] [address] PT Coag (PPP) [Time] 11.8 second(s) Normal 10.2-12.9 [facility] Comment on above: Performed By: #### 2 [id number] #### [facility] [address] [place] [address] Prescriptions/Work Noteson 1 Prescriptions/Work Notes [id number]# 1.00CD:127 Normal [facility] U BetaHcg Qualon 04-19-2020 HCG.beta subunit (U) [Moles/Vol] Negative Normal [facility] Comment on above: Performed By: #### 2 [id number] #### [facility] [address] [place] [address] UA With Cult Reflexon 2019 Bacteria LM Ql (Urine sed) TRACE Normal Trace [facility] Comment on above: Performed By: #### 2 [id number] #### [facility] [address] [place] [address] Bilirubin Ql (U) Negative Normal Negative [facility] Comment on above: Performed By: #### 2 [id number] #### [facility] [address] [place] [address] Clarity (U) CLEAR Normal Clear [facility] Comment on above: Performed By: #### 2 [id number] #### [facility] [address] [place] [address] Color (U) YELLOW Normal Yellow [facility] Comment on above: Performed By: #### 2 [id number] #### [facility] [address] [place] [address] Crystals LM Ql (Urine sed) Present Normal [facility] Comment on above: Performed By: #### 2 [id number] #### [facility] [address] [place] [address] Epithelial cells.squamous LM.HPF (Urine sed) [#/Area] 3-4 Normal 0-2 [facility] Comment on above: Performed By: #### 2 [id number] #### [facility] [address] [place] [address] Glucose Test strip (U) [Mass/Vol] Negative Normal Negative [facility] Comment on above: Performed By: #### 2 [id number] #### [facility] [address] [place] [address] Hemoglobin Ql (U) TRACE Abnormal Negative [facility] Comment on above: Performed By: #### 2 [id number] #### [facility] [address] [place] [address] Ketones (U) [Mass/Vol] Negative Normal Negative [facility] Comment on above: Performed By: #### 2 [id number] #### [facility] [address] [place] [address] [place].plasma/Lithi um.RBC (Bld) [Mass ratio] 0-3 Normal 0-3 [facility] Comment on above: Performed By: #### 2 [id number] #### [facility] [address] [place] [address] Nitrite Ql (U) Negative Normal Negative [facility] Comment on above: Performed By: #### 2 [id number] #### [facility] [address] [place] [address] pH (U) 6.5 [pH] Invalid Interpretation Code 5.0-9.0 [facility] Comment on above: Performed By: #### 2 [id number] #### [facility] [address] [place] [address] Protein (U) [Mass/Vol] Negative Normal Negative [facility] Comment on above: Performed By: #### 2 [id number] #### [facility] [address] [place] [address] Specific gravity (U) [Rel density] 1.025 Invalid Interpretation Code 1.005-1.030 [facility] Comment on above: Performed By: #### 2 [id number] #### [facility] [address] [place] [address] UA Spec Desc Clean Catch Normal [facility] Comment on above: Performed By: #### 2 [id number] #### [facility] [address] [place] [address] Urobilinogen Qn (U) 0.2 {Arnie'U}/dL Normal 0.0-1.0 [facility] Comment on above: Performed By: #### 2 [id number] #### [facility] [address] [place] [address] WBC Auto Ql (U) Negative Normal Negative [facility] Comment on above: Performed By: #### 2 [id number] #### [facility] [address] [place] [address] WBC LM.HPF (Urine sed) [#/Area] 0-5 Normal 0-5 [facility] Comment on above: Performed By: #### 2 [id number] #### [facility] [address] [place] [address] US Abdomen, Limitedon 2019 US Abdomen, Limited [...] M.D. Transcribed by: OLGA Technologist: RENETTA Kaplan [facility] eGFRon 04-19-2020 GFR/1.73 sq M.predicted among blacks MDRD (S/P/Bld) [Vol rate/Area] mL/min/{1.73_m2} Normal >=59 [facility] Comment on above: Order Comment: Order added by Discern Expert. Result Comment: eGFR is race adjusted. AA=. Performed By: #### 2 [id number] #### [facility] [address] [place] [address] GFR/1.73 sq M.predicted among non-blacks MDRD (S/P/Bld) [Vol rate/Area] mL/min/{1.73_m2} Normal >=59 [facility] Comment on above: Order Comment: Order added by Discern Expert. Result Comment: Charge Manager bib kidney disease could be indicated at eGFR's of less than 60 mL/min/1.73m2. Kidney failure is indicated at less than 15 mL/min/1.73m2. Performed By: #### 2 [id number] #### [facility] [address] [place] [address] Encounters Encounter Date Encounter Type Care Provider [...] DERM [address] [place] [id number] My Singh MD [address] [place], [place] [id number] [facility] Start: 08-22-2023 End: 08-22-2023 Patient encounter procedure 08/22/2023 11:50 AM EST Office Visit [facility] [address] [place] [address] Flynn Archibald, DO [address] [place] [address] [place] [address] [facility] Payers Date Payer Category Payer Unknown [id number] 1995 Unknown [id number] 2.16.84 [id number] 1995 Unknown [id number] 2.16.84 0.1.756485.3.579.2.593 1995 Unknown [id number] 2.16.84 0.1.215042.3.579.2.593 1995 Unknown [id number] 2.16.84 0.1.686488.3.579.2.593 1993 Unknown [id number] 2.16.84 0.1.574874.3.579.2.593 1995 Unknown [id number] 2.16.84 0.1.290454.3.579.2.1259 1993 Unknown [id number] 2.16.84 0.1.452390.3.579.2.1259 1993 Unknown [id number] 2.16.84 0.1.892975.3.579.2.1259 1993 Unknown [id number] 2.16.84 0.1.339965.3.579.2.1259 1993 Unknown [id number] 2.16. 840.1.133284.3.579.2.196 1995 Unknown [id number] 2.16. [id number] 1995 Unknown [id number] 2.16. [id number] 1961 Unknown [id number] Social History Date Type Detail Facility Tobacco smoking stat [facility] Tobacco smoking consumption unknown [facility] Start: 1995 Sex Assigned At Not on file [facility] Start: 08-08-2023 Gender identity Not on file [facility] Start: 08-08-2023 Tobacco smoking stat [facility] Never smoked tobacco [facility] Start: 08-08-2023 Tobacco use and exposure Smokeless t obacco non-user [facility] Start: 08-08-2023 History of Social function [facility] History of Present illness [...] year (follow up) documented in this encounter [facility] Consultation note 07-18-2021 Note [...] to proceed. CC: Dr. Alon Weber [facility] Consultation note 07-18-2021 Note Date & [...] like to proceed. CC: Dr. Alon Weber [facility] Signed and Approved by: DR AKASH MARTINEZ . 07/25/2021 08:02:00 [facility] Clinical Note 02-28-2021 Note Date & Type Note Facility 02-28-2021 Note Infectious Disease COVID-19: How to Protect Yourself and Others Know how it spreads ? There is currently no vaccine to prevent coronavirus disease 2019 (COVID-19). ? The best way to prevent illness is to avoid being exposed to this virus. ? The virus is thought to spread mainly from xqsyxa-cz-mpcjke. ? Between people who are in close [...] not readily available, use a hand manager intensive care unit that contains at least 60% alcohol. Cover [...] at higher risk of getting very sick.www.cdc.gov/coronavirus/2019-ncov/n nzc-nxtmu-mxosicmlwhf/wuqjya-pj-sjfivz-r isk.html Cover your mouth and nose with [...] clean your hands with a hand manager intensive care unit that contains at least 60% alcohol. Clean and disinfect ? Clean AND disinfect frequently touched surfaces daily. This includes tables, doorknobs, light switches, countertops, handles, desks, phones, keyboards, toilets, faucets, and sinks. www.cdc.gov/coronavirus/2019-ncov/preven w-ggdyuaw-httz/eobnnugvcoqr-ieuq-llqb.ht ml ? If surfaces are dirty, clean [...] 10/06/2019 Document Revised: 12/31/2019 Document Reviewed: 12/31/2019 [employer] Patient Education ? 2019 [employer]. COVID-19 Frequently Asked Questions COVID-19 (coronavirus disease) is an infection that is caused by a large family of viruses. Some viruses cause illness in people and others cause illness in animals like camels, cats, and bats. In some cases, the viruses that cause illness in animals can spread to humans. Where did the coronavirus come from? In May 2019, [place] told the World Health Organization (WHO) of several cases of lung disease (human respiratory illness). These cases were linked to an open seafood and livestock market in the city of [facility]. The link to the seafood and [...] naming World Health Organization (WHO): www.who.int/emergencies/diseases/novel-c oronavirus-2019/technical-guidance/joe mooree-tpx-ulnmznwfbut (more content not included)... [facility] History and physical note 05-05-2020 Note Date & Type Note Facility 05-05-2020 Note [id number] #1.00CD:127 [facility] History and physical note 05-02-2020 Note Date & Type Note Facility 05-02-2020 Note [id number] #1.00CD:127 [facility] Evaluation note Note Date & Type [...] section and content) DATE CREATED AUTHOR 03/05/2021 [facility] DATE CREATED AUTHOR AUTHOR'S ORGANIZ ATION 04/10/2021 [facility] DATE CREATED AUTHOR AUTHOR'S ORGANIZ ATION 07/02/2022 [facility] DATE CREATED AUTHOR AUTHOR'S ORGANIZ ATION 10/21/2023 [facility] DATE CREATED AUTHOR AUTHOR'S ORGANIZ ATION 01/18/2024 [facility] Reason for [...] BE BASED ON THE PRIMARY CLINICAL RECORDS. [facility] [employer] [facility]. provides no warranty or guarantee of the accuracy or completeness of information in this document.
[2024-02-03 06:30] VITALS: BP 116/78; PULSE 92; TEMP 36.3; O2SAT 97; BMI 24.1
[2024-02-03 06:44] LABS: HCG Qualitative NEGATIVE (NEGATIVE); Internal Control Within Normal Limits
[2024-02-03 06:48] LABS: Glucometer 97 mg/dL (74-106)
[2024-02-03] MEDS: LACTATED RINGER'S SOLUTION 1,000 ML 50 ML IV (07:45)
[2024-02-03] MEDS: CLINDAMYCIN PHOSPHATE/D5W 600 MG/50 ML PIGGYBACK 100 MG IV (07:46)
[2024-02-03] MEDS: SCOPOLAMINE 1 MG/3 DAYS TRANSDERM PATCH 1 PATCH TD (07:46)
--- NOTE | 2024-02-03 07:49 | PC.NURSE ---
0710 TIMES OUT PERFORMED WITH Artemio LOYA AND DR GARCIA 2 MG VERSED GIVEN IV 0712 LEG CLEANSED AND USE OF PROB TO LOCATE POPLITEAL AREA 0714 INJECTION OF NUMBING MEDICATION BEGAN AND 07 PICTURE OBTAINED AND PROCEDURE COMPLETED. PATIENT TOLERATED WELL.
--- NOTE | 2024-02-03 07:51 | PM.ORONB ---
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 She underwent removal of the right implant in 2018 and was very happy with the result. For over the last year she has been having similar recurrent aching pain in her left foot. She presents to the office and we discussed potential risks and benefits of removal of this implant which she wished to proceed with. Intraoperative findings: Loose subtalar joint implant. Surrounding chronic and acute synovitis with mild erosion of the sinus tarsi and subtalar joint. Procedure in detail: Patient was identified in preoperative holding by myself which time correct side and site were marked and consent was obtained. Regional anesthesia was performed by the anesthesia team and patient was brought back to the operating theater placed on table in supine position. Preoperative antibiotics were started and an ankle tourniquet was placed. IV sedation was then started and the operative extremity was prepped and draped in usual sterile fashion. Formal timeout was performed. The left foot and ankle were then exsanguinated and tourniquet was inflated. A 4 cm incision over the sinus tarsi was created with scalpel. Bleeders were coagulated in combination of sharp and blunt dissection gained access to the sinus tarsi and the implant was identified. The implant was loose and was unable to be removed with the appropriate screwdriver however was easily removed with a rongeur. There was synovitis which was excised. Surgical site was irrigated with copious saline. The tourniquet was deflated with a prompt hyperemic response. The incision was then closed in layers and a dry sterile dressing and a surgical shoe were applied. Patient tolerated procedure and anesthesia well was transferred to the recovery room with vital signs stable and brisk capillary refill to the left toes. Following a period of postop monitoring should be discharged home under her mother's care. Postoperative plan: Discharge home under family's care She may be weightbearing as tolerated She may remove the bandage and wash surgical site with soap and water. No soaking and replace with gauze dressing and Yohannes wrap Follow-up in 2 to 3 weeks for suture removal Prescriptions were sent to her pharmacy through my office's EMR Anesthesia: MAC and regional Surgeon: Tuan Reza Estimated blood loss (mL): 10 Tourniquet time (min): 11 Pathology: none sent Condition: stable Disposition: PACU
--- NOTE | 2024-02-03 07:55 | XR_ITS ---
The [address] [address] Patient Name: RAJIV LANDAVERDE MRN: [id number] date: 1995 Sex: F Assigned Patient Location: [facility] Current Patient Location: Accession/Order Number: [id number] Exam Date: 02/03/2024 09:25 Report Date: 02/05/2024 06:28 At the request of: SILVIA PEREIRA Procedure: XR foot LT min 3V PROCEDURE: XR foot LT min 3V HISTORY: painful hardware COMPARISON: XR foot left 01/26/2020 FINDINGS: BONES:Interval removal of the sinus tarsi spacer. No bone fracture, dislocation, or lesion. SOFT TISSUES:No visible soft tissue swelling. EFFUSION:None visible. OTHER: Negative. XR/XR foot LT min 3V IMPRESSION: 1. Interval removal of sinus tarsi spacer. 2. Otherwise unremarkable foot. Electronically authenticated by: BEN MARIE Date: 02/05/2024 06:28
[2024-02-03 08:47] VITALS: BP 113/77; PULSE 89; TEMP 36.9; O2SAT 97
[2024-02-03 09:03] VITALS: BP 116/80; PULSE 91; O2SAT 98
[2024-02-03 09:18] VITALS: BP 131/86; PULSE 94; O2SAT 99
[2024-02-03 09:26] LABS: Glucometer 93 mg/dL (74-106)
[2024-02-03 09:35] VITALS: BP 119/87; PULSE 92; O2SAT 98
== END 2024-02-03 09:35 | disposition home or self-care (01) ==
PROVIDERS: Anesthesiology; PCP Family Medicine; Visit Provider Podiatrist Foot & Ankle Surgery
PROC: (CPT 1480; principal; 2024-02-03 07:30)
DX: T84.84XA Pain due to internal orthopedic prosthetic devices, implants and grafts, initial encounter (principal); Z90.49 Acquired absence of other specified parts of digestive tract; E05.90 Thyrotoxicosis, unspecified without thyrotoxic crisis or storm
CPT/HCPCS: 20680; 36415; 64445; 73630; 82948; 84703; J0131; J1100; J1885; J2250; J2405; J2704; J2795

== ENCOUNTER 2024-02-05 11:45 | Outpatient (OUT) | payer BC, SELFPAY ==
--- OUTSIDE RECORDS SUMMARY | 2024-02-05 11:52 | XMS_ITS | CCD ---
Author Organization [facility] Care Team Providers Care Can Labeler Name Role Phone MICHELLE, DR AKASH Murray [...] (2 sources) HYDROcodone Drug Allergy 5 [facility] Repository (2 sources) oxyCODONE Drug Allergy 5 [facility] (2 sources) Penicillins Drug allergy (disorder) 5 [facility] (3 sources) Acetaminophen / HYDROcodone Drug Allergy 4 Unknown [facility] (3 sources) HYDROcodone Drug Allergy 4 Hives [facility] Work Phone: (3 sources) oxyCODONE Drug Allergy 4 [facility] (3 sources) Penicillin G Drug Allergy 4 [facility] (3 sources) Penicillin G sodium Allergy to substance 4 Rash [facility] (3 sources) Penicillins Drug Allergy 4 [facility] (3 sources) Sulfamethoxazole / Trimethoprim Drug Allergy 4 Rash [facility] (3 sources) Sulfonamides (Antibiotic) Drug Allergy 4 [facility] Medications Current Medications Medication Drug [...] 07-18-2021 Episodic Other aftercare (1 source) Other chcf (current) drug therapy; Translations: [OTH EMERGING SOLUTIONS EXECUTIVE CURRENT DRUG THERAPY] Onset: 09-05-2021 Episodic Other upper respiratory infections (1 source) Acute upper respiratory infection, unspecified; Translations: [ACUTE UP RESPIRATORY INFECTION UNS] Onset: 09-05-2021 Episodic Unclassified (1 source) COUGH, UNSPECIFIED; Translations: [COUGH, UNSPECIFIED] Onset: 09-03-2021 Results Test Name Value Interpretation Reference Range Facility Covid-19 PCR ([facility])on 08-22 SARS-CoV-2 (COVID-19) RNA MARY+probe Ql (Unsp spec) Not detected Normal NOT DETECTED [facility] Comment on above: Result Comment: This test is not yet approved or cleared by the [place] FDA. When there are no FDA-approved or cleared tests available, and other criteria are met, FDA can make tests available under an emergency access mechanism called an Emergency Use Authorization (EUA). The EUA for this test is supported by the Dental Financial Coordinator of Health and Human Service's (HHS's) declaration [...] consistent with SARS-CoV-2. Performed By: #### C [facility] #### [facility] [address] [place] [address] Dr. Karlos Augustin GROUP A STREP CULTUREon 08-22 S. pyogenes Ag Ql (Unsp spec) Culture Observations: NEGATIVE FOR GROUP A STREPTOCOCCUS. Normal [facility] Comment on above: Performed By: #### S ДМИТРИЙ GRASTCX #### [facility] [address] [place] [address] Dr. Karlos Augustin INFLUENZA A AND B AGon 09-03 INFLUANEGH SEE BELOW Normal [facility] Comment on above: Result Comment: Nega tive for Flu A protein angiten. Infection due to Flu A cannot be ruled out. Flu A angiten in the sample may be below the detection limit of the test. Performed By: #### I NFLUAB #### [facility] [address] [place] [address] Dr. Karlos Augustin INFLUBNEGH SEE BELOW Normal [facility] Comment on above: Result Comment: Nega tive for Flu B protein antigen. Infection due to Flu B cannot be ruled out. Flu B antigen in the sample may be below the detection limit of the test. Performed By: #### I NFLUAB #### [facility] [address] [place] [address] Dr. Karlos Augustin INFLUENZA A AG Negative Normal NEGATIVE SEE COMMENT [facility] Comment on above: Performed By: #### I NFLUAB #### [facility] [address] [place] [address] Dr. Karlos Augustin INFLUENZA B AG Negative Normal NEGATIVE SEE COMMENT [facility] Comment on above: Performed By: #### I NFLUAB #### [facility] [address] [place] [address] Dr. Karlos Augustin INTERNAL CONTROLS Within Normal Limits Normal Wi thin Normal Limits [facility] Comment on above: Performed By: #### I NFLUAB #### [facility] [address] [place] [address] Dr. Karlos Augustin STREPT SCREENon 09-03-2021 STREP SCREEN A Negative Normal NEGATIVE The [facility] Comment on above: Performed By: #### S ДМИТРИЙ GRASTCX #### [facility] [address] [place] [address] Dr. Karlos Augustin PREG HCG QUALon 08-01-2021 , QUAL Negative Normal NEGATIVE [facility] Comment on above: Performed By: #### P REG #### [facility] [address] [address] [address] Karlos Augustin PREG HCG QUALon 07-04-2021 , QUAL Negative Normal NEGATIVE [facility] Comment on above: Performed By: #### P REG #### [facility] [address] [facility] ABDOMEN AND PELVIS W IV CONTRAST [facility] Department of Radiology [address] [place] [address] Patient Name: RAJIV TOVAR : 1995 Sex: F Age: Race: White Pt. Location: [facility] Patient Status: D Ordered Date: 03/21/2021 4:00:00 PM Completed Date: 04/05/2021 03:49 PM Requesting Provider: ДМИТРИЙ CALLAHAN Attending Provider: ДМИТРИЙ CALLAHAN Report Copy To: ALON WEBER Signs & Symptoms: R10.31 Right lower quadrant pain I10 History: Josefa Is patient on meds for HTN or DM? 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 Per [employer] for CPT 94335 Ref#[id number] Med Nec-Passed *SLA Comments: Exam: CT ABDOMEN [...] Electronically signed: Noemy Stanley M.D.. Transcribed by: [email or web address], User Resident: Electronically Signed by: NOEMY STANLEY @ 04/07/2021 01:25 PM Normal [facility] CHEST 2 [facility] 03-21-2021 [facility] CHEST 2 [facility] Department of Radiology [address] [place] [id number] Patient Name: RAJIV TOVAR : 1995 Sex: F Age: Race: White Pt. Location: [facility] Patient Status: D Ordered Date: 03/21/2021 2:25:00 PM Completed Date: 03/21/2021 02:22 PM Requesting Provider: ДМИТРИЙ CALLAHAN Attending Provider: Report Copy To: Signs & Symptoms: R07.81 Pleurodynia I10 History: Josefa Comments: right ribs pain Exam: [facility] CHEST 2 VWS [facility] CHEST 2 VWS 03/21/2021 2:22 PM CLINICAL [...] disease Electronically signed: Cyril Olivo. Transcribed by: [email or web address], User Resident: Electronically Signed by: CYRIL OLIVO @ 03/22/2021 02:39 PM Normal [facility] Comment on above: Order Comment: right ribs pain Coding Summary.on 03-03-2021 Coding Summary. CD:[id number] G h0bWw+PGhlYWQ+JF7CECG yE51ryWIpoX5DE0dXGY6V PVLJGCSBPW1YHG6prER6F JueM4NeqtAd UixjyDNoAN49HWy2TNU5g TzcIKmxuK8gjTZtV2v1Sz BpUA77dG33ERszBJMxSuB 3LjZpbjsgbWFy C6alFoYvlXOpVcb+PHRhY mxlIHdpZHRoPScxMDAlJy VdyZagAH3iQz6dQFLyXHQ vbGxhcHNlOiBj h0tpOALkVFwxZU2geCqrB 0JowLL3TGRlf1v7Iw87oE I+ONPjOZR2sSghMXahz72 8UbOje5nyYTE0 qBImLOqiLDG5G47ne1N3T MXpOPKqXCL7uDU7uO1rmJ dofvquP2ZygKMrNoJ1WAI 1oGKflB6mgJmv iclyrF2yJle+H43HHZ7RC FRBBO8CVqi9K9KzXjdgbZ I+OE08JTPhBG46bRErfMS zf4vctAk9NoNw IZCqTCO9wYfoWHotn3VzK JLmP88fyNJrd5Q8ITCgcF xnbMCfMjChvEQ0mO2cVWg budikz8eidank Icqxh5dhyq01yP47D81bY VvxRPAjWYB2PGDdWLWccA asfk7bfH2mXf0+OTixu1x nu1wieOi5OxVn QQMcsnAgtEpwXPF8o9EbI n90C7WiaKypr7EiVkf7ll 38kZKkf9A4hLJ6HSjpYTQ ptR5dSSidEbD4 JEVmRsAhwP18aLDkJCngX s8lfBctlQglTT8rDRStko wqJNGyrU1aWYDjwSEzdJu zZZ2fRGKmvoqe d520AvHsVSX6EGBqvENgH 1SzkF4pMyTpYKHqVCDsQ3 JmoYKuPKtrK796LHdbEmC 9WGGotxExJ4Sx UFRwqJneOaA0k3T0Vt5Kv 0CnyxkcMKO6CGabSOT1Vk ArAcVhJdN1L5DbYeb6XYN ydJaiKG3fT8Iy WXZbfrgzlaocoZK6AFCvM FQttB89nHVdAGfvOp5oe0 E2n141KOFdEILgaK33Hk1 udDogMTBwdCBU dT1vqrquo0eeopptEgTmQ WEwISm7SMo0ZYChcNgjDu JzFHE8YdB0DSI9gGZlfW3 hkKhqcncwmY1f Oyc+X68zgO3hUXZ9CSA1f twiWIHiriVfJK46ZG47G4 RyPjwvdGFibGU+PGRpdiB otCtkDR1gExBq y7tms7TeOShlQ7IgVICvG AbwXpe2BWBnPKD8yJA3eX 2lPRWhZYdwf6C3tDE0G5Z yyjJwuz0jy5we FRVaWGfxT18csGLrv3C4X LQoqZY6BGKzaSptMxUvxB 93Oyc+RYFykYljo5TcOzw ct0hpm0gziQo8 DuGtTIMwqpAwkWznYDS6u 9ApXq71I88wLFqzCZHjKU GxZDTxRRUjhBjler5inA9 wIi8+PGNvbCB3 hZR1bH8nPNDwXkP3RQxnQ 173DqWuoKHkJtomb0cig2 ipbWj0PrGiANYiwuPoeMa ySQY8h8JxLf46 I94jCQcgLVPdLNUvOQDnK BSezLmhvn5ikP8rOd5+PC 4ii3vzau62aI34hCA+PHR vRCF4fQhpROhs JABmwG3xODskXiE3LEFyR uPfbK82eAEdDLkcNm4pbM wpqHfxVS1bQRPfwtwxj14 2QkKlc3vkMKBa yWZcCIwdZGR9I41yx4L0B IMtTZRkPYN1nUT4rR2ouB lnbjogbGVmdDsgdmVydGl bQZtoNDykE451 IHRvcDsnPlBhdGllbnQgT gRaTBo8E9RxVzg9QAIhmF ohFB3lxKAlMZnsZt1twLs daBmrXY3iTXRz wseft909ZeIok5toFWGji ZReEGzgXIM7W25ci7H8DH EbCUXaUBE8eBB5nC8kfNk nbjogbGVmdDsg viYofOlsLHugECdqV421Q HRvcDsnPkJpcnRoIERhdG K4HC32NP64pXFwr4U1uMQ 2L0IhGYLpcrmh ucrpbDJ7BLDbSTPunE13S y7vsHtkRe1fKJMyGMY2ZL YipLAyL0BvhB3mWpXhWXZ bIFAhT2SvyWNf IEzwU283AEouTjH4PMOwg hJnQ3LyMYBxgUesHrY9t2 C6Rw9BZ3Q7GZ79UC14jMO pa1G2gKW2E0Ev WGKebekbqlcuqKE9TTHtS AYjsU72Fy5fcOatZa7bFG TcBIS6XDMkqWJeD5DthE0 yOiAjMDAwMDAw O8HkhPTyJExhG364XEiyP eY5FWFztmVrA0FtGCDvaM ktOdP2j9C4Va0UZLz7MZ3 7RM24rKVdw0K3 dYK2F7EvQPDoinzdgyznh XA6MVSlTYEonD33Qa2meE oyPi7nSLFsYVK1CFGuhXE iN5HrhG4dRfSs AFJgGXJmA2VmjOOeYZhuO 118OVbyYeZ3ZYOjwqSaD0 SeLWSddGjkSyD5h5R1Ig7 RJUCyUV74RYU8 xQD9IH87LU37B8LmDzmni GFibGU+PHRhYmxlIHdpZH RoPScxMDAlJyBzdHlsZT0 lAb4tBNAqXIDu cPhbdOOpUsWup9nbNMRxA DlqJO4rnFzzQ1EzfPX3PR Jzp8e5Cg63R02iG8FhfAQ +ZOEdoEM8jOW1 oX7mIpQeJiK8KNevX105J dWkuCNyIseow5dby7xnsD l9WgH4CJOzahBoaSizXYL 1e4MqBp31R55w IHdpZHRoPSIxNSUiIHZhb Zywwa8mfJ6sTt9+PGNvbC U0qJJ2nV8aNsPyMmK4MDb eE163TrUxjGPu Pzwzx2xty5qpoEl9LjIoC NVxczTjuCzcCSV3p1VtAj 50M1ZuwOqpx7HlAef6og9 2fLFdc7L1mDH8 R7HqZIUsmcohxXKjyDcyO A4dTHYemmdzGZKsiT4wHM UyE5o7PwWtViF5QPdkW7X xadM1QBEmcBVm URzqSVO5P94fz5S0LZCgF DNwVAT5uNZ2cG8vsJvptk ogbGVmdDsgdmVydGljYWw uXQiqP249BMDj bYsyUNUlsL0iUCEwbRZrp SgtZD0fVDVipgzpDsUDRJ EBRZAZUVgDS4Q4N8OnCtc 4YWInvDuhRD4b bPNkCCgkIv7hxAtypVoxX S5sKFIkwhqkTICbuB8qLI KwmLHvrXcwLV1tTXHklhd tq427NuMsBWJ9 HUMiwHEkU3MvoH9zXaLiW SEcEEKnV9GbrGMtZWjfM9 59PQxwVfY4TXRfreArC5R sLWFsaWduOiB0 n9T3Pz0uPF4sBk2tEPalM A33WT09jESkb2L6hKJ0O3 VsTUQzrkfkjqidiVV0EJO qUTFdfK28xVGc GRrfOf1op4W1l960POBsL JXaaK25Id0tdSorZCDeiZ KMbU1ycvbhg6rycgysNaS iMCYeAGc4JNz2 YTShrAnoZoUiLAH2EgN1F EU0bSHqrA4phYptjjgfaN 9wOyc+DfdwNDFvqxN2R5M kRgu2TUFocKyz MY3gyGOjKIgfYy4fgDbww QusMG5hXWGvhvauENEjsW 0sNYCcoDJuoWeaNQ6rQKL jwvmpr638KnLo DYD7OIRwlLIpJ9DdfM3aB zIfXXZjXFQfW2AkqEHmNL zmW685TXtdItJ0RODmwoT vX5VdNSOylJmo EuY0f4L2Qk9TOU0nyFX6E 6LqIqq6AVMhjUomYK1iuG WyJLmsHd0doUmyzKncTG0 wNTBpbjtwYWRk vX2lAPAjaBWokDrwHH7jD DQdwqcak741FlBsHJN4RE NotOTyI0CedV3tGnMuJYB jAIGeT5UsdUDk IPtkC631CGyeMeV7RCWyc qWsI8HrUBUsuPhfZwG1w7 O4Fw5HiNJkD7CrF7k8G5C kPjwvdHI+PC90 XMZkPL42hXCiyFPof1vdj Xm4BjDyFQGaNBC3sLihGJ rpj3AzHMRuI73lsSWdk4Q 6IGNvbGxhcHNl UzFivYB5qH6iUDsokhtpn 5yracuzZtnvc0uvxb66tL 33S10yLEazLFVrOSOzIVI aGJLceTwyjw7q cD4fLv9+UBHmsCA8jDR9d Y1gRiLhOyF0OWdmV708Yo EonAFkAcwlx6dhj9eciXh 9IjIwJSIgdmFs eHlhPLR2y1BlMd41I64wQ HdpZHRoPSIyMCUiIHZhbG hdwc7wfW2dLh2+MZ5xb4v nle61nP50uEB+ FUAeCZK2zLteOEecUNCwc L5hTUtmNrN3CZOeZwGxfZ 92bPWrFWobLh5dkHvurDb pUF8hWALxlhkf s797PyNfj9rnOZYgrKXpT RhjKUR3H48bj4V9FCXzYD WjIOB6cNH0tY2lfZonuyz gbGVmdDsgdmVy hMzlDFstXUdmD334WTZzo MysRwHutLReW7nqvgDRRM 1lOjwvdGQ+ODCgLRO9uAe iOLlmXGNykF3k CCQkC7h5JpQtWnJ2RWwcO 5DlutJ7EJPewYVjDJFsuH NIcB5idfzbm3xpeguiEwD gLABjQXb6WDj5 CKMrhQfrVpPtXFH6MkM8E DT6gNRtvD4psIboufrmdC 9wOyc+RklOOjwvdGQ+PHR dXQE8eSbyBXjh RUSotK9wXDDbQ2w1MdEkO jO3YGkwZ0ZkwvD8AETcqV HpJJNbnDGBdH2oomfeb9y vcjogIzAwMDAw CHt4SYv0FJSxfAceLcOpI ME4KjI8KOG1qEUtyK1laR ctpcrgdY6iGfd+TVJOOjw vdGQ+PHRkIHN0 wMszGAnkLHTayG8lKTOkB 1j7JoVoKjV0LGikT3Uwax O2SXOvvPTiAYPqfNYLaQ8 hxjdkg9nokxpx ZiNcHQFwYBg5TRi5NPHcn OiuWdEuBPD6MdD6KHQ3jO NbrI2guSkqwuyanR6tGwd +ZNH9LDS2HW57 JZ39L5EvJobpmJRcqIG+P HRhYmxlIHdpZHRoPScxMD TnAqRhpUtbMH6oYv7iACG yLWNvbGxhcHNl OiBj (more content not included)... Normal [facility] Auto Diffon 02-28-2021 Basophils/100 WBC (Bld) 0.4 % Normal 0.0-2.0 [facility] Comment on above: Order Comment: Order Added by Discern Expert. Performed By: #### 2 654231, 1651781, 64179074, 32478835, 51975793, 75179394, 0628766, 0347745, 1926377, 0785527 ####[address] [place] [address] Basophils/Leukocytes Auto (Bld) [Pure # fraction] 0.0 E9/L Normal 0.0-0.2 [facility] Comment on above: Order Comment: Order Added by Discern Expert. Performed By: #### 2 683236, 8658191, 53557951, 50018080, 48466496, 96124463, 6434503, 7803433, 8641594, 8480133 ####[address] [place] [address] Eosinophils/100 WBC (Bld) 0.6 % Normal 0.0-8.0 [facility] Comment on above: Order Comment: Order Added by Discern Expert. Performed By: #### 2 949931, 0588913, 19123119, 89242475, 21402120, 49427069, 2292584, 5256008, 6611838, 3974617 ####[address] [address] Eosinophils/Leukocyt es Auto (Bld) [Pure # fraction] 0.0 E9/L Normal 0.0-0.5 [facility] Comment on above: Order Comment: Order Added by Discern Expert. Performed By: #### 2 118681, 5826567, 52278017, 94011153, 90498777, 88914282, 6139686, 7294280, 7673277, 3720060 ####[address] [address] Lymphocytes/100 WBC (Bld) 7.9 % Low 14.0-50.0 [facility] Comment on above: Order Comment: Order Added by Discern Expert. Performed By: #### 2 665767, 1120999, 72018396, 25530411, 42685381, 86789162, 6101850, 9498379, 2629000, 2507081 ####[address] [place] [address] Lymphocytes/Leukocyt es Auto (Bld) [Pure # fraction] 0.4 E9/L Low 1.0-4.0 [facility] Comment on above: Order Comment: Order Added by Discern Expert. Performed By: #### 2 783296, 3240695, 17308857, 06729928, 28058952, 23272223, 0834734, 0572379, 1044372, 0818761 ####[address] [place] [address] Monocytes/100 WBC (Bld) 5.5 % Normal 4.0-14.0 [facility] Comment on above: Order Comment: Order Added by Discern Expert. Performed By: #### 2 142305, 7193083, 74255307, 62635448, 28835601, 81516695, 1508879, 2402778, 1928592, 7588750 ####[address] [address] Monocytes/Leukocytes Auto (Bld) [Pure # fraction] 0.3 E9/L Normal 0.2-1.0 [facility] Comment on above: Order Comment: Order Added by Discern Expert. Performed By: #### 2 482870, 6348888, 10656712, 67273821, 50137917, 06937410, 3770122, 6849990, 3054035, 7502129 ####[address] [place] [address] Neutrophils/100 WBC (Bld) 85.6 % High 36.0-75.0 [facility] Comment on above: Order Comment: Order Added by Discern Expert. Performed By: #### 2 544338, 6524410, 69703034, 48795083, 83954464, 26954054, 8390943, 5763065, 4742822, 1743340 ####[address] [place] [address] Neutrophils/Leukocyt es Auto (Bld) [Pure # fraction] 4.5 E9/L Normal 2.0-7.5 [facility] Comment on above: Order Comment: Order Added by Discern Expert. Performed By: #### 2 328074, 8602526, 02809590, 30099248, 34169565, 60361246, 3888339, 4937027, 0227018, 2505959 ####[facility] [address] [place] [address] B hCG Qualon 02-28-2021 Beta hCG Ql Negative Normal [facility] Comment on above: Performed By: #### 2 878305, 8662425, 27998682, 54549761, 68016702, 03371197, 9075064, 6486564, 0993373, 4124443 ####[facility] [address] [place] [address] BMPon 02-28-2021 Creatinine [Mass/Vol] 0.7 mg/dL Normal 0.5-1.3 [facility] Comment on above: Performed By: #### 2 092948, 7078083, 77953342, 32554060, 84539348, 04545644, 3669576, 9151701, 6235216, 0688151 ####[facility] [address] [place] [address] Urea nitrogen [Mass/Vol] 9 mg/dL Normal 5-21 [facility] Comment on above: Performed By: #### 2 730186, 5680496, 82153610, 59689566, 63723298, 33935205, 1551734, 7653658, 3629439, 0761825 ####[facility] [address] [place] [address] Urea nitrogen/Creatinine [Mass ratio] 13 No Units Normal 10-20 [facility] Comment on above: Performed By: #### 2 299489, 0918901, 08853641, 49470114, 22496361, 73397744, 3929520, 4762714, 3670326, 6810533 ####[facility] [address] [place] [address] Anion gap [Moles/Vol] 14 mmol/L Normal 6-16 [facility] Comment on above: Performed By: #### 2 593659, 6787879, 64352898, 36121790, 09777786, 05925934, 4525556, 7076951, 5037796, 6133214 ####[facility] [address] [place] [address] Calcium [Mass/Vol] 8.5 mg/dL Low 8.9-11.1 [facility] Comment on above: Performed By: #### 2 326137, 4741098, 06396620, 15810252, 24957003, 13500835, 8721382, 8757403, 3198970, 4123465 ####[facility] [address] [place] [address] Chloride [Moles/Vol] 102 mmol/L Normal 101-111 [facility] Comment on above: Performed By: #### 2 674150, 6441313, 89250930, 22934645, 51280014, 90407912, 0602773, 1555193, 1503452, 3763867 ####[facility] [address] [place] [address] CO2 [Moles/Vol] 21 mmol/L Normal 21-31 [facility] Comment on above: Performed By: #### 2 283804, 8145283, 61174186, 35272604, 60797099, 20537497, 7078519, 0674227, 0767690, 1512367 ####[facility] [address] [place] [address] Glucose [Mass/Vol] 95 mg/dL Normal 55-199 [facility] Comment on above: Result Comment: If t his glucose result represents a fasting glucose, interpretation should refer to the following reference range: 55-99 mg/dL Performed By: #### 2 811347, 0677908, 96083557, 98810776, 69423943, 32362932, 6657306, 3232335, 8036467, 8793755 ####[facility] [address] [place] [address] Potassium [Moles/Vol] 3.6 mmol/L Normal 3.5-5.3 [facility] Comment on above: Performed By: #### 2 684730, 6494387, 26221520, 01910515, 16641092, 55020892, 3956156, 8477060, 2782939, 4119764 ####[facility] [address] [place] [address] Sodium [Moles/Vol] 133 mmol/L Low 135-145 [facility] Comment on above: Performed By: #### 2 469234, 1427746, 58421882, 29326023, 07665963, 76263236, 5488833, 7888318, 5858042, 7033205 ####[facility] [address] [place] [address] CBC w/ Auto Diffon Erythrocyte distribution width (RBC) [Ratio] 12.4 % Normal 10.9-14.2 [facility] Comment on above: Performed By: #### 2 992715, 4255482, 07735410, 32281863, 99391340, 09565745, 3093094, 2681831, 3110924, 4868447 ####[facility] [address] [place] [address] Hematocrit (Bld) [Volume fraction] 38.1 % Normal 34.0-46.0 [facility] Comment on above: Performed By: #### 2 938955, 1305342, 91293246, 28846233, 15404205, 49320938, 6116577, 9077037, 7375831, 4403245 ####[facility] [address] [place] [address] Hemoglobin (Bld) [Mass/Vol] 13.3 g/dL Normal 12.0-16.0 [facility] Comment on above: Performed By: #### 2 351828, 1357149, 81766827, 92536837, 50218194, 64484567, 4483930, 0656043, 0731353, 7941692 ####[address] [address] MCH (RBC) [Entitic mass] 31.7 pg Normal 27.0-34.0 [facility] Comment on above: Performed By: #### 2 124764, 0388144, 39004655, 44688251, 51535674, 88838103, 9945964, 7676460, 2083094, 2408225 ####[address] [address] MCHC (RBC) [Mass/Vol] 35.0 g/dL Normal 31.4-36.0 [facility] Comment on above: Performed By: #### 2 803442, 3139445, 35498070, 70675931, 89114997, 01743770, 6805366, 9536203, 0318324, 1277896 ####[address] [address] MCV (RBC) [Entitic vol] 90.8 fL Normal 80.0-100.0 [facility] Comment on above: Performed By: #### 2 740054, 4767079, 45100057, 41664169, 14750982, 18959053, 5543062, 5352975, 5403102, 5878904 ####[address] [address] Platelet mean volume (Bld) [Entitic vol] 10.0 fL Normal 6.4-10.8 [facility] Comment on above: Performed By: #### 2 641020, 9029191, 07369298, 18724692, 61293618, 36209321, 5371397, 5360082, 4729629, 9409559 ####[address] [address] Platelets (Bld) [#/Vol] 144.0 E9/L Low 150.0-500.0 [facility] Comment on above: Performed By: #### 2 324698, 5380543, 42295885, 27352657, 71633896, 26579323, 1244007, 4526708, 0523843, 5859597 ####[facility] [address] [place] [address] RBC (Bld) [#/Vol] 4.2 E12/L Low 4.3-5.9 [facility] Comment on above: Performed By: #### 2 414176, 3786381, 29756028, 10154256, 77229983, 67335717, 6498904, 2428715, 6535254, 7563228 ####[facility] [address] [place] [address] WBC corrected for nucl RBC Auto (Bld) [#/Vol] 5.3 E9/L Normal 4.0-11.0 [facility] Comment on above: Performed By: #### 2 604320, 9836867, 82291012, 40402721, 68846399, 46773970, 8797655, 9148925, 1458692, 3321982 ####[address] [place] [address] [place] [place]28-[place]21 SARS-CoV-2 (COVID-19) RNA MARY+probe Ql (Unsp spec) Not detected Normal Not Detected [facility] Comment on above: Result Comment: This test result should be correlated with clinical presentations and medical history by a healthcare provider to determine its clinical significance. This assay was performed by a reverse transcriptase real-time polymerase chain reaction (rt PCR) method on the [employer]ost[employer] system. This test has been authorized only [...] or revoked sooner. Performed By: #### 2 [id number] #### [facility] [address] [place] [address] SARS-CoV-2 (COVID-19) RNA MARY+probe Ql (Unsp spec) Pass Normal Pass [facility] Comment on above: Performed By: #### 2 [id number] #### [facility] [address] [place] [address] Specimen source Nom (Unsp spec) Nasal Normal [facility] Comment on above: Performed By: #### 2 [id number] #### [facility] [address] [place] [address] Employed in Healthcare NO Normal [facility] Comment on above: Performed By: #### 2 [id number] #### [facility] [address] [place] [address] First Test Unknown Normal [facility] Comment on above: Performed By: #### 2 [id number] #### [facility] [address] [place] [address] Hospitalized? NO Normal [facility] Comment on above: Performed By: #### 2 [id number] #### [facility] [address] [place] [address] ICU NO [facility] Comment on above: Performed By: #### 2 [id number] #### [facility] [address] [place] [address] ? NO Normal [facility] Comment on above: Performed By: #### 2 [id number] #### [facility] [address] [place] [address] Resides in a Congregate Care Setting NO Normal [facility] Comment on above: Performed By: #### 2 [id number] #### [facility] [address] [place] [address] Symptomatic as defined by CDC YES Normal [facility] Comment on above: Performed By: #### 2 [id number] #### [facility] [address] [place] [address] Consent for Treatmenton Consent for Treatment [id number]#1 .00CD:127 Normal [facility] D-Dimeron 02-28-2021 Fibrin D-dimer FEU (PPP) [Mass/Vol] 388 [id number] Normal 215-500 [facility] Comment on above: Result Comment: [...] infections Liver cirrhosis Performed By: #### 2 984214, 9991340, 56843417, 03690373, 37710853, 14611002, 3835224, 9554826, 1865707, 4234637 ####[facility] [address] [place] [address] Discharge Instructionson Discharge Instructions [id number] 1.00CD:127 Normal [facility] ED Clinical Summaryon 2020 ED Clinical Summary [address] [address] ED Clinical Summary Person Information Name: RAJIV TOVAR/[facility] Age: 25 Years : 1995 Sex: Female Language: Lithuanian PCP: Alon Weber MD Marital Status: Single [...] 02/28/2021 11:17:01 02/28/2021 11:17:01 02/28/2021 11:17:01 ADDRESS: [address] [place] [id number] [facility] DOC NOTES: MEDICAL INFORMATION: Prescriptions Given: [...] Follow up: With: Address: When: Alon Tatelenin [facility] [facility], [place] [address] Business (1) In 3 days DIAGNOSIS: Chest pain; Viral URI Normal [facility] ED Note-Physicianon 02-29-20 ED Note-Physician [...] hCG Qual CBC w/ Auto Diff COVID[place] [place] D-Dimer ECG 12 Lead Adult ED Cardiac [...] Information Alon Weber In 3 days [address] [facility] [place] [address] [place] [address]- Business (1) Additional Instructions: Patient Education COVID-19: How to Protect Yourself and Others - [facility] COVID-19 Frequently Asked Questions Upper Respiratory [...] Use, 01/30 (more content not included)... Normal [facility] Comment on above: Result Comment: Elec tronically Signed By: Laureano Phillip DO\.br\Date and Time Signed: 02/28/21 11:03 EDT ED Patient Summaryon 021 ED Patient Summary [address] [address] Patient Discharge Instructions Person Information Name: RAJIV TOVAR Age: 25 Years Arrival Date: 02/28/2021 09:10:34 Discharge Diagnosis: Chest pain; Viral URI Primary Care Physician: Alon Weber MD Provider Information Primary Provider: Laureano Phillip DO Advanced Group Teacher:None The exam and treatment you received in the Emergency Department were for an urgent problem and are not intended as complete care. It is important that you follow up with a doctor, nurse practitioner, or physician?s housekeeper/laundry assistant for ongoing care. If your symptoms [...] Follow-up Instructions: With: Address: When: Alon Gus [address] [place] [address], [place] [address] Business (1) In 3 days [...] opioids can be used to help relieve ofjfrmqb-ay-xyuerv pain and are often prescribed following a [...] be struggling with addiction, tell your health rn primary care and ask for guidance or (more content not included)... Normal [facility] Hep Func Panelon 02-28-2021 ALP [Catalytic activity/Vol] 52 Int._Unit/L Normal 21-98 [facility] Comment on above: Performed By: #### 2 843889, 7430389, 71572083, 89672822, 28745832, 69782940, 3658060, 9754139, 3608849, 1307298 ####[facility] [address] [place] [address] Albumin [Mass/Vol] 4.2 g/dL Normal 3.3-5.0 [facility] Comment on above: Performed By: #### 2 031679, 5559042, 60451909, 39486500, 78985729, 61656980, 9882117, 9292832, 5620777, 9785139 ####[facility] [address] [place] [address] Albumin/Globulin (S) [Mass conc ratio] 1.4 Normal 1.1-2.2 [facility] Comment on above: Performed By: #### 2 502590, 2577657, 20851622, 73298532, 84968087, 98716822, 5231055, 7720569, 0767651, 3663581 ####[address] [place] [address] ALT No additional P-5'-P [Catalytic activity/Vol] 48 Int._Unit/L High 6-46 [facility] Comment on above: Performed By: #### 2 655597, 4112903, 29990566, 67356774, 84468520, 30115736, 0634328, 1765262, 3086347, 7269348 ####[address] [place] [id number] AST [Catalytic activity/Vol] 39 Int._Unit/L Normal 5-43 [facility] Comment on above: Performed By: #### 2 889142, 4915378, 13590585, 10599864, 84483176, 12399906, 0046513, 5178593, 2527025, 0835459 ####[address] [address] Bilirubin [Mass/Vol] 1.2 mg/dL High 0.0-1.1 [facility] Comment on above: Performed By: #### 2 365204, 4612054, 00072381, 17125600, 74828019, 06215773, 1911284, 4491561, 1065589, 9666303 ####[address] [place] [address] Bilirubin.direct [Mass/Vol] 0.2 mg/dL Normal 0.1-0.4 [facility] Comment on above: Performed By: #### 2 504592, 8372668, 35438948, 59059159, 17037582, 42277425, 1746262, 1740570, 0762380, 6628189 ####[address] [address] Bilirubin.indirect [Mass or moles/Vol] 1.0 mg/dL High 0.1-0.9 [facility] Comment on above: Performed By: #### 2 619304, 5059967, 41496107, 62090562, 24298558, 40495201, 9650656, 2952974, 9072199, 5140843 ####[facility] [address] [place] [address] Globulin (S) [Mass/Vol] 2.9 g/dL Normal 1.4-4.0 [facility] Comment on above: Performed By: #### 2 531360, 6091659, 58449909, 07147961, 73056446, 32439427, 7366146, 3500981, 2153227, 3476392 ####[facility] [address] [place] [address] Protein [Mass/Vol] 7.1 g/dL Normal 6.0-7.8 [facility] Comment on above: Performed By: #### 2 384570, 1422267, 70407147, 86492845, 48405652, 76073730, 1156508, 5530401, 8366686, 2621776 ####[facility] [address] [place] [address] Lipase Levelon 02-28-2021 Lipase [Catalytic activity/Vol] 33 U/L Normal 13-58 [facility] Comment on above: Performed By: #### 2 467379, 7027445, 39982791, 20403961, 29054183, 50117039, 6770598, 6253314, 6374580, 3288997 ####[facility] [address] [place] [address] PT & PTTon 02-28-2021 aPTT Coag (PPP) [Time] 31.5 second(s) Normal 25.1-36.5 [facility] Comment on above: Result Comment: Hepa rin therapeutic range (represented by Anti-Factor Xa activity of 0.2 - 0.4 U/mL) corresponds to PTT of 56.6 - 109.0 sec. Performed By: #### 2 629576, 6523405, 27148489, 14990574, 86747794, 97834761, 7978161, 9862089, 3088176, 3466622 ####[facility] [address] [place] [address] INR Coag (PPP) [Relative time] 1.1 {INR} Invalid Interpretation Code [facility] Comment on above: Result Comment: INR results are specifically intended to assess patients stabilized on long-term Anticoagulation therapy suggested INR?s ?Less Intensive Anticoagulation? 2.0 ? 3.0 Conventional Range 3.0 ? 4.5 Performed By: #### 2 895255, 1378008, 37582741, 72552211, 59351131, 18271310, 1432566, 1948777, 6283396, 8757077 ####[facility] [address] [place] [address] PT Coag (PPP) [Time] 13.1 second(s) High 10.2-12.9 [facility] Comment on above: Performed By: #### 2 858640, 7809643, 97105116, 70701085, 76009707, 28243009, 0818343, 5795049, 7842409, 3776239 ####[facility] [address] [place] [address] Prescriptions/Work Noteson 0 02-28-2021 Prescriptions/Work Notes [id number]# 1.00CD:127 Normal [facility] Troponin 0 Hr.on 02-28-2021 Troponin I.cardiac [Mass/Vol] ng/mL Low 10.10-27.10 [facility] Comment on above: Result Comment: The 95% CI (Confidence Interval) PPV (Positive Predictive Value) for myocardial infarction in females is 38 pg/mL, in males 51 pg/mL. The results should be used in conjunction with clinical conditions of myocardial infarction. (Access High Sensitivity Troponin I Instructions For Use, [facility], January 2018) Performed By: #### 2 219043, 3545187, 77503668, 94316602, 52700931, 47160868, 6336120, 3661554, 3638006, 5713138 ####[facility] [address] [place] [address] XR Chest Single Viewon 02-28 XR Chest [...] MD Transcribed by: OLGA Technologist: YONG Kaplan [facility] eGFRon 02-28-2021 GFR/1.73 sq M.predicted among blacks MDRD (S/P/Bld) [Vol rate/Area] mL/min/{1.73_m2} Normal >=59 [facility] Comment on above: Order Comment: Order added by Discern Expert. Result Comment: eGFR is race adjusted. AA=. Performed By: #### 2 368173, 9380192, 01465237, 29888903, 72893833, 49848746, 9158004, 8131766, 3851770, 0849637 ####[facility] [address] [place] [address] GFR/1.73 sq M.predicted among non-blacks MDRD (S/P/Bld) [Vol rate/Area] mL/min/{1.73_m2} Normal >=59 [facility] Comment on above: Order Comment: Order added by Discern Expert. Result Comment: Neighborhood Coordinator bib kidney disease could be indicated at eGFR's of less than 60 mL/min/1.73m2. Kidney failure is indicated at less than 15 mL/min/1.73m2. Performed By: #### 2 613308, 5323766, 05942867, 77750821, 25703116, 68140087, 3627827, 2765661, 7623943, 4243852 ####[facility] [address] [place] [address] C Urineon 02-01-2021 Bacteria identified Cx Nom [...] Locations R1: This test was performed at: [facility], [address] [place] [address], [address] , , [facility] Comment on above: Performed By: #### 1 0925007, 5057239 ####[facility] [address] [place] [address] Coding Summary.on 02-01-2021 Coding Summary. CD:[id number] G h0bWw+PGhlYWQ+GU1WDAL zV72jkDYqlU3LR8iJCM9J YOLRRXIQJU8UGW4kzLM4Y TqrM0KewsNi ZqtjmZMjEN56LQe0FMB5y NgpKGydmC6cfCYwZ5c9Sk TwWT47bD98TVzuSXScLyR 3LjZpbjsgbWFy Y0bqTmUygSVgRhg+PHRhY mxlIHdpZHRoPScxMDAlJy XjsWscEK8nSr0dGLYjTSG vbGxhcHNlOiBj e3kkRZGfVEjqPH3nzRxkI 3UkkCC8NTOkm0d6Qi74sK I+ZNEyWIU5kAutIFplr66 6GyIis2vbWEY5 yMOwBQuvHSX4P78hq1U9Z HMyDSNyBWU8vNH8qA7rpK noijkhD3YizVJfXsC6FKY 5hJOewR3xgBrq aukjbB4tLym+G58WXJ5BL FTBVA8EDiw8W2YgRltglK I+LF92FWTjXE37dSSyuUI yh9ayxJz7NmHe VXXqWOK8xFpnTUsgq8SoA SUjD62epAJmj3K2ZYTggS qmjYOoWcPfvXA1lA9yRMd osojpg2liqfdw Rlecl0hdjn63hR39Y05aZ TcmFNSoOVQ8TVAwMQUouF trbv5pkP1aAh6+KImww4x fq1ubjDy4ZyRz JTUgzeHxjNbqYWO0o6YtS v24O5JqjYxyb2KxPgy8of 12fIRkw3M8iHQ9WMlhCGE ebD4aZUgmCnK3 VYLqZsJwkC57eFWbNYlqZ n3vdDnnxNgrPJ7cCQWbuh urSQAidF3jNULzoDWevCe hUI7nLOVobqxf v723RbYeIVV1WBLdjFKrM 6GimD5oInZsPPWbEZYnW5 RryLJoUMcbN609GUmmEnU 9KZWkwsOjU6Jb XCPpbFsyCcU6x0Q1Sp9Pq 3ZuuyugIXC3HKypPDU3Wn TvIgKiUgH3T9KuJyp3LDB uhMjzWF3yY0Wm VOUhggmvgruabCR0LGCyE CFhiD19iEGaZVwyOq4qa6 F7g585TZNtRJUebL34Ye1 udDogMTBwdCBU jI3owqcwt0bqbyszMoTwB FSxTVe0OXv6ULJwuZxsSq GpBCM5ZnN9HCO8pZCppB2 uwPowlcrbsK3v Oyc+K76vcL2tJWK8ASN4c dvqZUMmiaFkRV15VE07T8 RyPjwvdGFibGU+PGRpdiB wzWxvOD7xZxDp k1lkb8AhBMuvE2FwWODuL CbkJlj1CZUuFMK6uMK2zR 6iSWQqXSpuf9G3uXL9A6I cntHqlc7tr6ag WIEwCNuvB53fdCVvq5X9O OZjiJK6FWIcpEwePsQsyG 93Oyc+JASlzObie7NqSxz sx9xlf0whxIy2 OeDdEYDhmbTqrCqpWRV4r 6TcQa64H88uQWvmVNXwEX GjGENjCMVbgWwzgj2glU4 wIi8+PGNvbCB3 kNK5mY8aWOEkOkN9KHklS 833DoMloWEeAgafq2til5 ftkAd5QiOgZHCeztPynNc jTMM0d5GmLi64 A63qFCtsUMSrTIFuZCRbX SPmdAuanw2yaI4nKc6+PC 3gj8lpjh28cR67dIF+PHR aAAW4jGokBRdk QPOyaZ3tNLdwDmY7ALZjA eKpvC83cPGdJDuvNw2zpM ewsDpbUN5hMKLodqsch90 3HlNvp7ufYYKz lBPwQEwiZLS7Q19ht3S3J NBwWGYyELY5rWG5nZ4tyS lnbjogbGVmdDsgdmVydGl kCOzkWAodL027 IHRvcDsnPlBhdGllbnQgT uNqUOk6M9TxUqs0WEZbgF kkPV6eeTYtOXrnBo5cyEi ewSuzHB4uWHCz wunzw265LnLpl5azRWVvz TUjEOfaNBG8E32lp5E0BY JnZLJuEBC1wRC3eF9oyYe nbjogbGVmdDsg bdFtzDpvNQibVAwkK175R HRvcDsnPkJpcnRoIERhdG J8GD28BW04vOVrh3B0xTJ 3M9EuGTPsdode spkjmII1OXWjLFKsdH81V i2mnIegUm1cSROdJIT2RP NudAUjK0DlfH0oJjRtLXZ sPKPoD5QbxBMl TQjrX735EGrzBwL0PXKwb jTgD2HiDNSbzVtwVuK9p2 W9Zr6HM8V4BU03GM37sHG cn5J7yAR3E5Lm THSkyosoiiybpUD6PQFpB GQszK21Sy4xuWpcYx9fXE SqVRU2IVYhoHSnW9TvlN1 yOiAjMDAwMDAw M1XwqNBhNWtcJ148EOvrC xT0CLDtboYaI3ZdZBMrgG kmGqA4e0M9Yt6VXXf2UM3 5NH15eEIhe3I7 bAD8N9WsYQHizxcpmaqai SX9IPCmRGTqrC87Oa9kfK qlJa2lVJXmXPM6APZjoSH jK0CpxQ4wHbLe YEAaYAEpI1SlpQJfVCmfG 982WGeiEnJ7JEGqwzRfP7 YlKKKuyKjjFhJ0x7P6Lp9 TPUTbTM22JEH9 kKP2BS96KB15O1UzXjsdj GFibGU+PHRhYmxlIHdpZH RoPScxMDAlJyBzdHlsZT0 fXy8rUEGwZFTl fLglvLNuOrJmv4fnSSAlT QozCS7kfJpjH5GhyFF8VA Zqq9f8Ye93Y29oJ3GfvLC +FLZruMK3zDD9 gK8yLxPwLjO8YAivE096A cMfxFBjJzqhn9qvt0oqcI v0KbE4MNOhtqSokEoqQIW 0i2HfZm58J06b IHdpZHRoPSIxNSUiIHZhb Iifqe0xaK6tIy3+PGNvbC S5kSG5sM2iGuXrIbD7FBc jR058VhGzlJIt Xsyfr4fbl1aidVs6IoSqR GJzwzXzqPdmJVJ1f9RjSm 41E4RylQcgv9PeJet6ol5 1sJYxg8J4aDI8 U4VjQYQfsvvfzNGtzXvcS K9jUROmzxwaGRHbpU8wVV LsL2i0ExRxOyD2TRsxK3P lkuL5XEEkiAVl NLycMSN8Z81le6K1XCYpK EKyMYS2kVC9lQ7njFtmeo ogbGVmdDsgdmVydGljYWw sWUzkB583IJVx cZwkKQFozO9bGVPwoZEhx QsvYK5eUKOctkgxFbEKLI XSJPELYRhGG7G2Z9UgOlm 2KGDyaWahGK0b qYSaKGjxWx1xmWmjrXlaF D3bDYAucujaIWEtyA4rDZ JwhHOuqYirSN4yITJbitw nh049ZlGdWJK9 TTVnaYTxI5QkvC4rHgUxT WGaJWOmC4EusGEqSFnwZ6 35BDgdWzC5ZPPlbgTyC9E sLWFsaWduOiB0 b0U2Pz3yOJ9rPa7aHOykL B21GM45nZHfx8Q8cSS5K5 XwSMOiomdjtwcpaHJ0YWA xFEEwoX33hJLm JEsgBt6ez1D5y363SEWoL DBgaN44Zi7mlUzeIYOvxR ORmB6eszosq6cwxtciRpS gJCIwNUd8JKz9 KDVebXceRuUwBAC6GxR5S WD3eFAlnN7aiQsunlsnnX 9wOyc+HszzXFCfzuY2Z4G wBsi7FQRxlFwv SN5xoMPlVIiiDy8wnIfjy EhnSO0sENEyaxdvGDHdiD 0pBRQstIKirIpcVX8wPGP bqqckp853GuSa HTW3ZQRokKJwY7DyyK6mF gZzFTKvTVSgM6OqbZRgZQ ddM617CMxqMmR8ASTjocB aG2OgRTVwzFgz UhH0s1H6Sn1OGJ1mjKS5P 4NrNuo1PPJybExzUX3xsF BfSFfaQo7swYhndThfUR6 wNTBpbjtwYWRk xR8dPIXjhWLozOyiQA2xW OGdbmyua688GtQvKMB0VD QopRPuV3GuzR5oCgWtSEF yKLPuP1QxlSQp HDeeF767BSqxCcD4MBFhk fXjZ9DuTTRgkFbvXhU9x4 N2Vq7PsBPhS6MoS8i2J0C kPjwvdHI+PC90 BDSzQQ43cLLweNZor9hbb Sk5XxWfNIMrNXW5qWtzTS qlv6EvVHSpU67leVGdp3U 6IGNvbGxhcHNl KjQstBX4kY2pQKfqxhjue 4penamjYnyab6khsf37kR 21T94xTCvkKGFrJZXqSQX pYOMdiGrsmo9u iQ2yOl4+SYPjkSJ4hPY5h K4cScLkCfR3CQvxL105Fl AxjECaTaksx7leh3owjZe 9IjIwJSIgdmFs oQxmTGL8x8FkPv47E21mY HdpZHRoPSIyMCUiIHZhbG gcic7deC9hCi6+MO2jf2t zgr14rV49pRD+ MYFuUBB4yLtgLYvwSBFdd U8fXRewKeI6DWEhJjQqtX 11pKHuXIhzPw7asXmnkKs vBR6eMADtobnj k832AfTfj6qjUMHcqXSzO CeaYLN4A74ut8O7QFBlXQ TiBTP4bMO1tY5hwNseppd gbGVmdDsgdmVy tSttCNsqWXjnF421PZExs DoaMuWvqODrP7bchnPUVY 1lOjwvdGQ+OPWiCKB9nNc qANkcFRFggJ0j TNBnO7f9FgYdGcL2CZvtG 2IukcC1JWWdlXMgYGYfmR ORuK3hrjqfx5glyvsqPmH xQSQhFTa0UOk6 YBUclRdnRvRuPRY1RyM0T UH0uGPngF5miHkjsxmazC 9wOyc+RklOOjwvdGQ+PHR jHLR4rIiaCUon QXIskY4vBVSrM5y2GlXaY lN6QDrkE6FwxfX1HYJirG XnPEUyaWNBaE0ipepeg3h vcjogIzAwMDAw HTb7OOu7ZPMcjOkiOjTmX EE4YuP9BBG1sLLujU4zfZ rqfsxkiD6qArp+TVJOOjw vdGQ+PHRkIHN0 mRvrZGaxUXTuwV0tMFAsS 6l0XnNnJjN7QMbqB9Ulkt D7HFDzzCBeFUXliCAGoM7 hzskmw8yngupy YtQwLJRuSBf5LPi8EBYlq KrrVaPvOYB9VsP1SJM7xJ XdkM2tfUykkdcspZ4nIvv +VDP1ZKU4MA49 QM33G2DcObtjfDYwtFN+P HRhYmxlIHdpZHRoPScxMD IsLpHdwJtbQP5eQr3nFYI yLWNvbGxhcHNl OiBj (more content not included)... Normal [facility] B hCG Qualon 01-31-2021 Beta hCG Ql Negative Normal [facility] Comment on above: Performed By: #### 2 573886, 2083127, 4640009, 97870041, 6306827, 68920110, 0580555 ####[address] [place] [address] Discharge Instructionson Discharge Instructions [id number]# 1.00CD:127 Normal [facility] ED Clinical Summaryon 2020 ED Clinical Summary [address] [address] ED Clinical Summary Person [facility] Age[facility] 25 Years : 1995 Sex: Female Language: Lithuanian PCP: Alon Weber MD Marital Status: Single [...] 01/30/2021 23:43:48 01/30/2021 23:43:48 01/30/2021 23:43:48 ADDRESS: [address] [place] [id number] PHYS DOC NOTES: MEDICAL INFORMATION: Prescriptions Given: New Medications [id number], [address], [place] [id number], [phone] cephalexin (Keflex 500 mg Cap) 1 Capsules [...] Follow up: With: Address: When: Alon Weber [address] [place] [address], [facility] [address] Business (1) In 3 days 02/02/2021 DIAGNOSIS: Acute UTI Normal [facility] ED Note-Physicianon 02-01-20 ED Note-Physician CD:[id number]:[id number] 2 0NN51yCvdpnDcg6vfpa5j ID3wEdKvfyJmJNyqLk1yc 1xsJV63sf0gGmQeOc5+Cj pkGS6CYNwMZPVo yG8zIBRKUkzHWqEaMM5uF qVOWm9TGQStYDdSCInaRA 0zVHY0tddayV3yLE1eRQY bpSWvXl3vp1i8 MfszHi0bYr0YZy34aGRxf AZsMKYVO5benI3fXW8dsB IuR2GpXKNwMs2PCRg8dTu anF2aezD2Lex9 tTO6He75n5czfbSjf1BjZ gL0YUcueOx7nOczVYzqzL 8mRzLrWNKQuP6thYqaCL8 jlO4vvwWwkRqq biI+FhfyAJBePxn3qNMjZ W61R4RvvTazHlv5mNB1VC EhjMWfTVSeaGm9OCVMYWS BLUNvbXBhdGli wOIyZFTviyDcfyQ2HycXJ NNcFqKbJak4D5iiHMD+Cj tdz3R8Evk3DWw1YYV9cLs cZURxe594YVYc mOpeqZthlEHdx55kASZhk JXfWkTyr460XAKvqdG4RP bozDygPoz3oTDbnBGqe1j kuOf6GyYpOELz DgfLSNLruJtmu1WrFjpJA Kiva8xneiEurAzoGSV8o2 WjAVotQVCyTLI0OpJaWZ2 +CgkJPGNvbCB2 UJhqW818AxHblYYsf4slw Rt4JlP6JZPnEo0XHTzhE3 5iF6TovBA+Huy7qUUvZTy +CgkJPHRyPgoJ DKa5eVOxr3G2tHD5PyRrb cHep9l3EGyxESU1RvJ2ET N2wBMppF4jxEqjzbpiqE3 wOyI+CgkJCTxk eWYsD0wdx2X3JlTic1Vft DhkeiYfCRGhGwTeo3byMa pvKLDhsW3cAZU7QbNuAPF leHQiIGlkPSJf AxZaDJJsMfXrGTBoVa09G fPlQHi2QWlvRzbcFYL8Go XjThVcUrJotHpzEJ9ghXO kZGluZzogNHB4 OyI+TVYqUJ3fR2tyf1J5D eUjn7LaqLhbosVbk4RkKE wzAuoiyTVgRQB4kAphIST hx305VTostUjz tKydZs8wXBeiyCP8xV7tW NLumaK1bN5dIrV8zwBozz sjonO6Ro3AKLJeGiQRltC wnk9axOjahndo j9Yqet49S7RyGY2+CgkJC NhgxXAmR1hjj4X7ToHxm3 Hkb37rpzT9CU0viWG7TKW iNJMeNfMbx6ip YmxlIGRkZnJlZXRleHQiI JLlWuC8veNui7N7rH6fp4 H3zVK0NcPzmW4dgWoaaOQ qDSA5wCGznEvd bZQjK2ghWFZTR9wdF92DX HKCBVBNKRZqXJg4YYndHx QiIGlkPSJfYTMyMjFhZGU bRHPvFM46XwIh QQQdYNJiYhB0LBTxDnS8D MX8Yh58y7HhulKniLovLT 8kmBPtG7nfPcRynQUySVj uXpNyBFPqkD0z RqJliLB9EXEfmKHuGIsoY 619RCzyJrA2WDLhdZ1wFx UyM5HjFYnsTTmbNXs7DYV evaHmm1F9cEB2 ZG2aqp7ysUezFa7bzF46K JgllYU3XI2wim1szOztrR X7nB0cMYSnfhU1tK3vTkG ke57sLwZ+JiN4 QBL1Ha7xrDNypEubrNgrR aTkEZFqLZZ1JMvdJAIzNI 1kT1ayOSf5B4LvCW8+PGJ yIC8+CgkJCSYj zLBhEegwLDc1PrrVWLdRI ZCvumWmmALgjs7aESVary LthVY6jZHpBXPboF25OFF fOJZmIYG6BgTp DksoKSXasbqqoVirKR3tc F4tSZScI9f7QeBdKL5kRp xrPtQ3FUkyLQs2GBahHZf yNZ50NQs3WFIp NGS4BrSoUxExMoVfj0H9g WN8GyIok0SeOTc5NZ4vma Z6Ay30N7Jmem7ZIVkGUT7 kaXY+CgoJCQk8 ZJx1PZDeSUFtYMRsQVXlL 4Zhw94rRUTxAIZfYWGvHO AlKLWoFCxgf5ZhuHTgZZX 5PHd8LUBykjBq z5ZxJpwjQoWxHPehZLO8e C4pE36lPA2dAW8POoXpUP CbGSLmZuKgzLA4Ng91XyF 2PKT1HH44WsOq DBU1ZRxaTAk6Do3xOOLbC oRdXPV2KIiuTGE1dTclLN DeBOAtqD0eOfU1lFh3Hg3 0j6VzxrIokBIj ik3sEGZzTRV7uM6vKEifw GxheSI+EOUuNS7yl5W1dU H7TvCjiuWgz4IpO2x1MvR nv5reIxH4SQa2 EQNrO39pSIUcf180SFKxB GVybGluZTsiPkNoaWVmIE SpoIKxLWzpiCnkk4Mznc3 4U7PsKG9+CgoJ DVz6RPj5GECyEOTlHBMmI GVtcmNvbnRlbnQiIGRkOm VomsFozcD7iMNcNXCTDNM LZLPDR48MCERu DWDpWsJlLzCzDL9uTCR5x KK4JmDQLvJkNKy3QNEsDE AbEJRHXl2MJJIzEPGACAK MYTG2YDKQSMXu hJF4Vi82EmEyVdcjBl9cZ CMaZIPoXhOtNsuhMt6xKY q9MZDgWPwiEsPgSbvBAYg 3DWt5TPFgLGPz PSJkZGVtcmNvbnRlbnRpd ELqUXMfgrJtt1InIxvhQy AoUBxxe825DU39cWatXE4 qKZQYN5DVWE6I RUFTIiBkZDplbnRpdHlpZ S2qAAi9QAK6LGClCsLsqZ A2Fy3qPSYjWhugAo8nFCI hLTRkMWMtYjNl Yf60FUJ6YIe1JOR3QvuuV LemxA8xVnYjINSXaU2vlU mgZN2drZ7xrkDgjSmlsbV +cHQgYXJyaXZl rcEbm0FdsseikMLot9yoI KIbTYTxNWOemL9imVzciJ OxcXNwfYWhsP7ziWfnIME aZC3vONYpFJ6i V23pdtX0heE7iXEeqeugy QStYKY3CAwwXCWheXbvUM TmEBWeJZMtrnZcv8JlWGy vUI5hASrhamVv mUZjSnUejxIgaW0sVHN4j 9VyEynbOVl2AnjWGKk6C1 Qwrg0HCTtZCI7fyAX+Cgo REZo9IQn9TVYh PSMiTINoGTHhG9Esf50iY GRyZWZyZXNoYWJsZSBkZG hzp6PcePJsKJC1GEo2ARA mjtRki3NbKayz RpPgGUptFLA8pF3oV87vN A3hFH6HNnOlNGTrYtNiFy DesRY7Gt4eC9ZpOBQ6XZ9 bIiKcRGT9ZyBs XRn0Tv5mQWA0LwA2WUvvA VKxUCX8kWauFNQlCJSbyA 6cMjJ6pOk5Cy68x7KvtfD kyQVxhn9sIOVz ZYV5iC3sHNrxjEwquEQ+P OMkYE0un4F8wWT7AnNaji Dcd6YyN6b4HcLck1mkNdZ 2OCs0EFHaM53q QDDya892ONRcRBYciBffZ SlsLvugb4Rugemmw9LaTJ Obg8PafTLGqAbbVAAfYK3 leJEwJavli8Id cv8WMgiGAHribWJdC7rsu 2R2IoEtVO1oI09bkGIvaB PnQBR2C54nR6WonD0uEUN MPgMvDLnfh962 MY51cDguBT2iAZ0RL2DAC TYmIWAlBvXqKuRqHX1tHH D3cUM1StDbMtNsQiK6VSE 2XOEqYXBRQb46 TdtLOREUSfI0Q9P8Q9J8L PNziIG8Xm5zEKZ8QzelYO 11JTIrJCLbQQAxBBUfWR0 0BLDfWAQ8UJQ0 KKicNlbVERw8GNf4GKImJ XNzPSJkZGVtcmNvbnRlbn FoaWHuOhBuRUerv658JY5 2gPwpBS6kJUHC U3KUUU1WXFEJToTbUHzxd yMlhZtpMV4aNDAbVLO4ND 83eXY8nmHoz6ainu1tPGB utKX7Dy89ZUGk NrbiOU7pSiamRZU0XEzgL JV7Rx95ZWJ8GWZxYWHtUF ZcMowEQZk9MDk8HYDfLAJ zPSJkZGNvbXBv owWcwCCqMCP1OF37yCJ6l SN0hOS3zCE9IbZkx6AlcP WvePGvrZQ1Wa99N7G2Gro cTI5tG3XvUUIh KotbRpJ1Iq50CYFeTeTzG KD5Y8FmSlhQALj5WYi9YD XnOBKbDIOtQVDqFCJ6LDc 8XOCtqvGfg0Uz VuemUmEkCVwgpV7iyD7fi HhsD3G7iAlpDOV3t5Klgq lnaHQiIGlkPSJfMjlkMjM 7IEIzLMOuBO50 Exi2DNAvZxAaHAn7XZw1J jM2ArW7Jb3YTUhsu6LyO3 geRhTbxLXnAKVeZbJ8SGR qVF7sHWDiNZ9m mKLlv0w6yOZQVCqpy7Qqn 2KqvxhtmxWnpGY4diMmts FaND39zxF2oSIoKTUrxBL myjLvmCH1f8Y8 WB8yPNnovZCzmXw4vYCni YDlwYXfB0OmSR5tB3VzNI 7yoX2efWRqYXhtXRJcKGA yR1ApKVRqXT8q VPXfeH4itK8mYESwFKKwj yC9sCEskOBblRcsSZWdF2 JpYmVkIGFzIHNoYXJwLCB kylKsv5ZyALLy n21uqFq8MRXgEGzfkRGiU YLqXTmeq4jmHPAxSYQ7DV awPeplAQ5fTRiqv9FsRWD bC7nzYQI6ftQl bnRseSByYXRlZCBhdCBhI PmjXXYpMA4lJOartzU3r3 tsisNsVLQkdWMevY3jjLz qJEDld0DgSHWs hW3mq5I8VB3iLCSvo2PlB FGnADU2qCSpDE9rcx2xJR BxsJAuBPF4h4NyoMEzGZ3 dYFSzQYZ2IP6z zVmvLeK7WNBgKN1sk9GaT IudeXS7bBZfYV9zVUWcML 0bi3T2hFA4NoUwVETmpmy hzI1dXdCndZk3 MGNtVIYorzoeId61iL8hC sPpaOo9WZ7ajctkob18j2 L3UGVwbLrebBRsV5ulCOJ vdHRvbTogMHB4 OyI+Fb2bwXscmH6hkUKtF rHxuEGjTJqls6YuyjWnCv duk9Xjex8tZ8jiUFh2n7H kmiNgfWtlRJ3r tXZkVNnpWe80f5M4BCLrs AmdcGDjZRuuHn0yw5W6q0 06DDMinUnnaPOzN5neABR pzJkiAKV7BlLm Y (more content not included)... Normal [facility] Comment on above: Result Comment: [...] this condition includes: ? Antibiotic medicine. ? Ceya-lcl-aatzoag medicines to treat discomfort. ? Drinking enough [...] these instructions at home: Medicines ? Take cslp-ypl-udvstua and prescription medicines only as told by [...] This in (more content not included)... Normal [facility] ED Patient Summaryon 021 ED Patient Summary [address] [address] Patient Discharge Instructions Person Information Name: RAJIV TOVAR Age: 25 Years Arrival Date: 01/30/2021 20:17:08 Discharge Diagnosis: Acute UTI Primary Care Physician: Alon Weber MD Provider Information Primary Provider: Joshua Hollingsworth DO Advanced Group Teacher:None The exam and treatment you received in the Emergency Department were for an urgent problem and are not intended as complete care. It is important that you follow up with a doctor, nurse practitioner, or physician?s housekeeper/laundry assistant for ongoing care. If your symptoms [...] Alon Weber [facility], [address] [place] [id number] [facility] (1) In 3 days 02/02/2021 In the event that this physician does not participate in your insurance network, please consult with your insurance company to find a nearby participating provider. Patient Education Materials: Urinary Tract Infection, Adult A MESSAGE TO ALL PATIENTS REGARDING OPIOIDS PRESCRIPTION OPIOIDS: WHAT YOU NEED TO KNOW Prescription opioids can be used to help relieve otnfjljg-tu-psmvjt pain and are often prescribed following a [...] be struggling with addiction, tell your health rn primary care and ask for guidance or call [employer]?S National Helpline at 4-177-960-HELP. v Source: [place] Department of Health a (more content not included)... Normal [facility] UA With Cult Reflexon 2020 Bacteria LM Ql (Urine sed) 1+ /HPF Abnormal Trace [facility] Comment on above: Performed By: #### 1 [id number] ####[facility] [address] [place] [id number] Bilirubin Ql (U) Negative Normal Negative [facility] Comment on above: Performed By: #### 1 [id number] ####[facility] [address] [place] [address] Clarity (U) CLOUDY Abnormal Clear [facility] Comment on above: Performed By: #### 1 [id number], [id number] ####[facility] [address] [place] [address] Color (U) YELLOW Normal Yellow [facility] Comment on above: Performed By: #### 1 [id number], [id number] ####[facility] [address] [place] [address] Crystals LM Ql (Urine sed) Present Normal [facility] Comment on above: Performed By: #### 1 [id number], [id number] ####[address] [address] Epithelial cells.squamous LM.HPF (Urine sed) [#/Area] 0-2 Normal 0-2 [facility] Comment on above: Performed By: #### 1 [id number], [id number] ####[facility] [address] [place] [address] Glucose Test strip (U) [Mass/Vol] Negative Normal Negative [facility] Comment on above: Performed By: #### 1 [id number], [id number] ####[facility] [address] [place] [address] Hemoglobin Ql (U) TRACE Abnormal Negative [facility] Comment on above: Performed By: #### 1 [id number], [id number] ####[facility] [address] [place] [address] Ketones (U) [Mass/Vol] Negative Normal Negative [facility] Comment on above: Performed By: #### 1 [id number], [id number] ####[facility] [address] [place] [address] [place].plasma/Lithi um.RBC (Bld) [Mass ratio] 0-3 Normal 0-3 [facility] Comment on above: Performed By: #### 1 [id number], [id number] ####[facility] [address] [place] [address] Mucus Ql (Urine sed) TRACE Normal [facility] Comment on above: Performed By: #### 1 [id number], [id number] ####[address] [address] Nitrite Ql (U) Positive Abnormal Negative [facility] Comment on above: Performed By: #### 1 [id number], [id number] ####[address] [address] pH (U) 7.5 [pH] Invalid Interpretation Code 5.0-9.0 [facility] Comment on above: Performed By: #### 1 [id number], [id number] ####[address] [address] Protein (U) [Mass/Vol] Negative Normal Negative [facility] Comment on above: Performed By: #### 1 1357891, 6914128 ####[address] [address] Specific gravity (U) [Rel density] 1.020 Invalid Interpretation Code 1.005-1.030 [facility] Comment on above: Performed By: #### 1 0192889, 9028760 ####[address] [address] Type of Urine collection method Clean Catch Normal [facility] Comment on above: Performed By: #### 1 1692532, 2960614 ####[address] [address] Urobilinogen Qn (U) 0.2 {Arnie'U}/dL Normal 0.0-1.0 [facility] Comment on above: Performed By: #### 1 8747503, 4482040 ####[address] [address] WBC Auto Ql (U) 1+ Abnormal Negative [facility] Comment on above: Performed By: #### 1 1485560, 4420558 ####[facility] [address] [place] [address] WBC LM.HPF (Urine sed) [#/Area] 6-15 Abnormal 0-5 [facility] Comment on above: Performed By: #### 1 8958330, 8478205 ####[facility] [address] [place] [address] Auto Diffon 01-30-2021 Basophils/100 WBC (Bld) 0.4 % Normal 0.0-2.0 [facility] Comment on above: Order Comment: Order Added by Discern Expert. Performed By: #### 2 222616, 5060538, 8783485, 01928113, 1572695, 54432744, 7574312 ####[address] [address] Basophils/Leukocytes Auto (Bld) [Pure # fraction] 0.0 E9/L Normal 0.0-0.2 [facility] Comment on above: Order Comment: Order Added by Discern Expert. Performed By: #### 2 771397, 0515630, 9267860, 45791166, 1907424, 93928245, 9056195 ####[address] [address] Eosinophils/100 WBC (Bld) 1.4 % Normal 0.0-8.0 [facility] Comment on above: Order Comment: Order Added by Discern Expert. Performed By: #### 2 366121, 8114318, 7535268, 87650859, 1602642, 18275932, 1561260 ####[address] [place] [address] Eosinophils/Leukocyt es Auto (Bld) [Pure # fraction] 0.1 E9/L Normal 0.0-0.5 [facility] Comment on above: Order Comment: Order Added by Discern Expert. Performed By: #### 2 831632, 0920221, 1135197, 49513311, 7306791, 37472186, 8303075 ####[address] [address] Lymphocytes/100 WBC (Bld) 23.7 % Normal 14.0-50.0 [facility] Comment on above: Order Comment: Order Added by Discern Expert. Performed By: #### 2 001848, 9360552, 9014775, 00312712, 1655048, 64353953, 0735481 ####[facility] [address] [place] [address] Lymphocytes/Leukocyt es Auto (Bld) [Pure # fraction] 1.9 E9/L Normal 1.0-4.0 [facility] Comment on above: Order Comment: Order Added by Yifan Expert. Performed By: #### 2 349476, 0357830, 2566130, 59083746, 7987897, 07425517, 2390449 ####[address] [place] [address] Monocytes/100 WBC (Bld) 6.2 % Normal 4.0-14.0 [facility] Comment on above: Order Comment: Order Added by Yifan Expert. Performed By: #### 2 588422, 9597494, 8454895, 50600175, 4548275, 26108440, 2462302 ####[facility] [address] [place] [address] Monocytes/Leukocytes Auto (Bld) [Pure # fraction] 0.5 E9/L Normal 0.2-1.0 [facility] Comment on above: Order Comment: Order Added by Discern Expert. Performed By: #### 2 955575, 2369958, 6538569, 75802888, 1913627, 19918146, 8155966 ####[facility] [address] [place] [address] Neutrophils/100 WBC (Bld) 68.3 % Normal 36.0-75.0 [facility] Comment on above: Order Comment: Order Added by Yifan Expert. Performed By: #### 2 824109, 8266787, 7550141, 83035371, 7826505, 50233404, 9969498 ####[facility] [address] [place] [address] Neutrophils/Leukocyt es Auto (Bld) [Pure # fraction] 5.6 E9/L Normal 2.0-7.5 [facility] Comment on above: Order Comment: Order Added by Discern Expert. Performed By: #### 2 775227, 9411090, 7415143, 33080873, 9464080, 23685302, 8701257 ####[facility] [address] [place] [address] BMPon 01-30-2021 Calcium [Mass/Vol] 9.0 mg/dL Normal 8.9-11.1 [facility] Comment on above: Performed By: #### 2 980227, 1025279, 9655598, 19086914, 7735517, 35222469, 1262430 ####[facility] [address] [place] [address] Creatinine [Mass/Vol] 0.7 mg/dL Normal 0.5-1.3 [facility] Comment on above: Performed By: #### 2 217747, 4357484, 1305173, 62647515, 3353563, 26424179, 6031109 ####[facility] [address] [place] [address] Urea nitrogen [Mass/Vol] 10 mg/dL Normal 5-21 [facility] Comment on above: Performed By: #### 2 086907, 5525161, 2544854, 66029779, 6315196, 09784681, 4688562 ####[facility] [address] [place] [address] Urea nitrogen/Creatinine [Mass ratio] 14 No Units Normal 10-20 [facility] Comment on above: Performed By: #### 2 145193, 6196185, 0073162, 60384483, 1492993, 99447828, 0614785 ####[facility] [address] [place] [address] Anion gap [Moles/Vol] 12 mmol/L Normal 6-16 [facility] Comment on above: Performed By: #### 2 574467, 0123595, 8186495, 71905770, 9162369, 53756423, 8313394 ####[facility] [address] [place] [address] Chloride [Moles/Vol] 104 mmol/L Normal 101-111 [facility] Comment on above: Performed By: #### 2 529977, 1188305, 0095250, 46683342, 0321066, 80652100, 7652752 ####[facility] [address] [place] [address] CO2 [Moles/Vol] 25 mmol/L Normal 21-31 [facility] Comment on above: Performed By: #### 2 482534, 5248677, 8925926, 70006821, 3582007, 20752845, 1017734 ####[facility] [address] [place] [address] Glucose [Mass/Vol] 93 mg/dL Normal 55-199 [facility] Comment on above: Result Comment: If t his glucose result represents a fasting glucose, interpretation should refer to the following reference range: 55-99 mg/dL Performed By: #### 2 468987, 2457601, 4480343, 66715928, 2956503, 38911270, 4471250 ####[facility] [address] [place] [address] Potassium [Moles/Vol] 3.8 mmol/L Normal 3.5-5.3 [facility] Comment on above: Performed By: #### 2 160364, 9740309, 5219243, 84063016, 4542173, 16746839, 2102564 ####[facility] [address] [place] [address] Sodium [Moles/Vol] 137 mmol/L Normal 135-145 [facility] Comment on above: Performed By: #### 2 615555, 8045600, 9077133, 79641557, 5317831, 06529660, 7089100 ####[facility] [address] [place] [address] CBC w/ Auto Diffon 08-09-202 1 Erythrocyte distribution width (RBC) [Ratio] 12.2 % Normal 10.9-14.2 [facility] Comment on above: Performed By: #### 2 572298, 5632796, 9594126, 59792214, 0621746, 95902906, 7620797 ####[facility] [address] [place] [address] Hematocrit (Bld) [Volume fraction] 39.3 % Normal 34.0-46.0 [facility] Comment on above: Performed By: #### 2 413725, 1506919, 2493495, 85959128, 7398545, 77482851, 2451469 ####[address] [place] [address] Hemoglobin (Bld) [Mass/Vol] 13.3 g/dL Normal 12.0-16.0 [facility] Comment on above: Performed By: #### 2 646551, 8784807, 1635342, 18409417, 3052388, 63479234, 4839546 ####[address] [place] [address] MCH (RBC) [Entitic mass] 31.3 pg Normal 27.0-34.0 [facility] Comment on above: Performed By: #### 2 481111, 8344688, 4775835, 30121815, 7163417, 72499656, 8806092 ####[address] [address] MCHC (RBC) [Mass/Vol] 34.0 g/dL Normal 31.4-36.0 [facility] Comment on above: Performed By: #### 2 363974, 1142900, 1172905, 58317728, 5440915, 26523499, 4043873 ####[facility] [address] [place] [address] MCV (RBC) [Entitic vol] 92.1 fL Normal 80.0-100.0 [facility] Comment on above: Performed By: #### 2 944491, 0511046, 7087250, 22039785, 0367338, 66319689, 1356696 ####[facility] [address] [place] [address] Platelet mean volume (Bld) [Entitic vol] 9.2 fL Normal 6.4-10.8 [facility] Comment on above: Performed By: #### 2 718052, 4978296, 8205489, 18418014, 8319552, 59920264, 8969777 ####[facility] [address] [place] [address] Platelets (Bld) [#/Vol] 214.0 E9/L Normal 150.0-500.0 [facility] Comment on above: Performed By: #### 2 286138, 7836985, 9508241, 23863559, 0635304, 63195770, 3250040 ####[facility] [address] [place] [address] RBC (Bld) [#/Vol] 4.3 E12/L Normal 4.3-5.9 [facility] Comment on above: Performed By: #### 2 416264, 3860272, 5224717, 37296367, 7606396, 45045789, 7933482 ####[facility] [address] [place] [address] WBC corrected for nucl RBC Auto (Bld) [#/Vol] 8.2 E9/L Normal 4.0-11.0 [facility] Comment on above: Performed By: #### 2 674419, 3525768, 3225616, 91580339, 5107202, 80204432, 9062154 ####[address] [place] [address] Consent for Treatmenton Consent for Treatment [id number]#1 .00CD:127 Normal [facility] Hep Func Panelon 01-30-2021 Albumin [Mass/Vol] 4.0 g/dL Normal 3.3-5.0 [facility] Comment on above: Performed By: #### 2 717121, 8677567, 8853277, 12863130, 1988677, 85466940, 9500320 #### [facility] [address] [place] [address] Albumin/Globulin (S) [Mass conc ratio] 1.5 Normal 1.1-2.2 [facility] Comment on above: Performed By: #### 2 110814, 3941041, 4406437, 17992488, 4998387, 71885525, 3162120 #### [facility] [address] [place] [address] ALP [Catalytic activity/Vol] 44 Int._Unit/L Normal 21-98 [facility] Comment on above: Performed By: #### 2 231272, 9684098, 9646047, 44455509, 7594229, 71210585, 6081021 #### [facility] [address] [place] [address] ALT No additional P-5'-P [Catalytic activity/Vol] 20 Int._Unit/L Normal 6-46 [facility] Comment on above: Performed By: #### 2 636628, 7556651, 7994087, 02267995, 2480687, 89855251, 4801860 #### [facility] [address] [place] [address] AST [Catalytic activity/Vol] 16 Int._Unit/L Normal 5-43 [facility] Comment on above: Performed By: #### 2 618388, 1203108, 9391967, 93458344, 3941430, 07407422, 3913469 #### [facility] [address] [place] [address] Bilirubin [Mass/Vol] 1.1 mg/dL Normal 0.0-1.1 [facility] Comment on above: Performed By: #### 2 871844, 1405954, 6163641, 17909305, 0318671, 99803723, 3834207 #### [facility] [address] [place] [address] Bilirubin.direct [Mass/Vol] 0.2 mg/dL Normal 0.1-0.4 [facility] Comment on above: Performed By: #### 2 150924, 7152602, 9820106, 58828053, 3110575, 36392863, 5658539 #### [facility] [address] [place] [address] Bilirubin.indirect [Mass or moles/Vol] 0.9 mg/dL Normal 0.1-0.9 [facility] Comment on above: Performed By: #### 2 589669, 8657862, 5250761, 75802720, 3284683, 93102056, 5051128 #### [facility] [address] [place] [address] Globulin (S) [Mass/Vol] 2.6 g/dL Normal 1.4-4.0 [facility] Comment on above: Performed By: #### 2 984034, 3268939, 5939995, 92792589, 5884769, 07187075, 3810227 #### [facility] [address] [place] [address] Protein [Mass/Vol] 6.6 g/dL Normal 6.0-7.8 [facility] Comment on above: Performed By: #### 2 961735, 9773948, 9791920, 30152415, 4312861, 07064402, 1533679 #### [facility] [address] [place] [address] Lipase Levelon 01-30-2021 Lipase [Catalytic activity/Vol] 32 U/L Normal 13-58 [facility] Comment on above: Performed By: #### 2 162578, 5245119, 4074380, 72699276, 5228570, 90241952, 2505328 #### [facility] [address] [place] [address] eGFRon 01-30-2021 GFR/1.73 sq M.predicted among blacks MDRD (S/P/Bld) [Vol rate/Area] mL/min/{1.73_m2} Normal >=59 [facility] Comment on above: Order Comment: Order added by Discern Expert. Result Comment: eGFR is race adjusted. AA=. Performed By: #### 2 428833, 9185392, 4856088, 29969191, 5975676, 39502899, 7862447 #### [facility] [address] [place] [address] GFR/1.73 sq M.predicted among non-blacks MDRD (S/P/Bld) [Vol rate/Area] mL/min/{1.73_m2} Normal >=59 [facility] Comment on above: Order Comment: Order added by Discern Expert. Result Comment: Neighborhood Coordinator bib kidney disease could be indicated at eGFR's of less than 60 mL/min/1.73m2. Kidney failure is indicated at less than 15 mL/min/1.73m2. Performed By: #### 2 168795, 4535669, 2807526, 49466087, 9516141, 20511718, 9381438 #### [facility] [address] [place] [address] Provider Letteron 06-03-2020 Provider Letter June 03, 2020 To Whom It May Concern, Rajiv has been under my care and had a lap choly on 05/10/2020. She was seen post operatively on 05/23/2020 and was healing well. Rajiv is released to work on 06/06/2020 with no restrictions. Please call the office at [phone] with any questions/ concerns. Sincerely, Dr. Aiden Izquierdo faxed to [facility] to [phone] Normal [facility] Ambulatory Clinical Summaryo n 05-23-2020 Ambulatory Clinical Summary {[id number]}CD:383681 Normal [facility] General Surgery Office/Clini c Noteon [...] Aiden IZQUIERDO MD Only if needed [address] [place] [id number]- Additional Instructions: F/U PRN Problem List/Past Medical [...] 04/19/2020 Family History Family history is negative [facility] Comment on above: Result Comment: Elec tronically Signed By: Aiden IZQUIERDO MD\.br\Date and Time Signed: 05/23/20 10:17 EST\.br\Electronically Co-Signed By: Mildred Cook MA\.br\Date and Time Co-Signed: 05/23/20 09:55 EST IntraOperative Documentson 1 07-17-2019 IntraOperative Documents [id number]#1 .00CD:127 Normal [facility] Ambulatory Clinical Summaryo n 05-16-2020 Ambulatory Clinical Summary {[id number]}CD:933158 Normal [facility] Gastroenterology Office/Clin ic Noteon 05-16-2020 Gastroenterology Office/Clinic Note Chief Complaint f/u EGD HPI Staff This is a 25 year old female who presents today for a follow up to EGD. History of Present Illness 24 years old white female with no significant past medical history except for anxiety, referred to me from [facility], ER to be evaluated for right upper quadrant abdominal pain, she reports right upper quadrant abdominal pain, started 6 weeks ago, sporadic, moderate in nature except for the last time when it was severe for which she went to [facility], ER, she had normal CBC, CMP and [...] Information Ezequiel MARTINEZ MD Only if needed [facility] [address] [address]- Additional Instructions: Patient Education Cholelithiasis Problem List/Past [...] Surgical Pathology Report; 04/29/2020 10:57 EST Normal [facility] Comment on above: Result Comment: [...] required. HOME CARE INSTRUCTIONS ? Only take nfti-dho-jrvxnkw or prescription medicines for pain, discomfort, or [...] Document Reviewed: 08/09/2011 ExitCare? Patient Information ?2013 [employer]. [facility] Coding Summary.on 05-13-2020 Coding Summary. CODING DATE: 05/13/2020 FINAL [facility] STATUS: Home (Routine DC) PAYOR: Reba APC DESCRIPTION 5361 Level 1 Laparoscopy and Related Services ADMIT DX: REASON FOR VISIT DX: K81.1 Chronic cholecystitis FINAL DX: PRINCIPAL: K81.1 Chronic cholecystitis SECONDARY: K82.8 Other specified diseases of gallbladder F41.9 Anxiety disorder, unspecified PYMT PROC APC STAT DESCRIPTION DOCTOR NAME DATE 03904 5361 J1 Laparoscopy, surgical; Aiden IZQUIERDO MD 05/10/2020 cholecystectomy with cholangiography 62817 Anesthesia for Bakari Husain Jr, DO 05/10/2020 intraperitoneal procedures in upper abdomen including laparoscopy; not otherwise specified NOTE: The code number assigned matches the documented diagnosis and / or procedure in the patient's chart. However, the narrative phrase printed from the coding software may appear abbreviated, or result in slightly different terminology. Revised Coded By: Eugenia Mae Revised Date Saved: 05/13/2020 02:09 pm [facility] Main OR Intraoperative Recor don 05-13-2020 Main OR Intraoperative Record IntraOp Document Type FT Summary Primary Physician: Aiden IZQUIERDO MD Finalized Date/Time: 05/13/20 11:07:53 Pt. Name: RAJIV TOVAR/Sex: 1995 Female Med Rec #: [id number] Physician: Aiden IZQUIERDO MD Financial #: [id number] Pt. Type: A Room/Bed: Admit/Disch: 05/10/20 07:43:57 - 05/10/20 15:00:00 Institution: Case Times FT Entry 1 Patient Times In Room 05/10/20 09:29:00 Out Room 05/10/20 10:27:00 Procedure Times Start 05/10/20 09:44:00 Stop 05/10/20 10:20:00 Anesthesia Times Start 05/10/20 09:29:00 Stop 05/10/20 10:27:00 Last Modified By: My Callahan RN 05/10/20 10:27:42 General Comments: 1011- technical advisor called dr. guo read xray dilated tapers distally can't exclude small stone possible spasm , Dr. Izquierdo stated understanding. - joan turner 05/13/2020 Chart opened to review and send charges. Angela Leavitt EXTRACTION OPERATOR. Case Attendance FT Entry 1 Entry 2 Entry 3 Case Attendee Ankit AGUILAR, Linnea IZQUIERDO MD, Aiden ARAUJO MD, Ramandeep Cummings Role Performed Anesthesiologist Surgeon - Primary Surgeon - Assist 1 Parliamentary Counsel Time In 05/10/20 09:29:00 05/10/20 09:40:00 05/10/20 [...] TURNER, My Villalba RN, Bernadette Ortiz Cert. Wafer Mounter, Arlette Davila Role Performed Design Assistant - Primary Scrub - Primary Scrub - [...] Magalie R Role Performed Scrub - Primary Corn Detasseler Time In 05/10/20 09:29:00 05/10/20 10:00:00 Time [...] Coy RN, Deejay Chowdhury RN, Angel Oglesby Wafer Mounter, Carlos Rock CST, Macie C Time Out [...] By: C (more content not included)... Normal [facility] Postoperative Documentson Postoperative Documents [id number]# 1.00CD:127 Normal [facility] Progress Note-Physicianon Progress Note-Physician Patient: [...] TID, # 10 tab(s), Refills(s) 0, Pharmacy: [facility]/pharmacy #[id number], 168, cm, 04/19/20 6:20:00 EDT, Height/Length Dosing, 58.5, kg, 04/19/20 6:20:00 EDT, Weight Dosing omeprazole 40 mg Cap-DR: 40 mg = 1 cap(s), Oral, Daily, # 30 cap(s), Refills(s) 2, Pharmacy: [facility]/pharmacy #[id number], 168, cm, 04/20/20 10:06:00 EDT, Height/Length Dosing, 59.5, kg, 04/20/20 10:06:00 EDT, Weight Dosing Documented Medications Documented desvenlafaxine 100 mg Tab-: 100 mg = 1 tab(s), Oral, Daily, Refills(s) 0, Depression Problem list: All Problems Biliary dyskinesia / SNOMED CT 185683402 / Confirmed Depression / SNOMED CT 23802029 / Confirmed Histories Past Medical History: No active or resolved past medical history items have been selected or recorded. Family History: Entire family history is negative. Procedure history: EGD (esophagogastroduoden oscopy) gastric outlet reduction (3890749479) on 04/29/2020 at 25 Years. section (41257120) on 07/23/2019 at 24 Years. Sinus (9537234149). Nasal cautery (608973658). Ankle (5244345). 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 Comments: 05/10/2020 8:26 EST - [employer] RESIDENTIAL REMODELING SUBCONTRACTOR, Bernarda ovarian cyst drained Social History Social [...] EST Heart (more content not included)... Normal [facility] Comment on above: Result Comment: [...] All Problems Biliary dyskinesia / SNOMED CT 964544171 / Confirmed Depression / SNOMED CT 03521761 / Confirmed Physical Examination Vital Signs 05/10/2020 [...] EST Apic (more content not included)... Normal [facility] Comment on above: Result Comment: Elec tronically Signed By: Bakari Husain Jr, DO\.br\Date and Time Signed: 05/13/20 13:20 EST Coding Summary.on 05-12-2020 Coding Summary. CODING DATE: 05/12/2020 FINAL [facility] STATUS: Home (Routine DC) PAYOR: [place] ADMIT DX: REASON FOR VISIT DX: Z01.812 [...] Jaquez CphT Date Saved: 05/12/2020 09:53 pm [facility] Consent for Anesthesiaon Consent for Anesthesia [id number]# 1.00CD:127 [facility] Discharge Instructionson Discharge Instructions [id number]# 1.00CD:127 [facility] IntraOperative Documentson 1 07-11-2019 IntraOperative Documents [id number]# 1.00CD:127 [facility] Operative Reporton 0 Operative Report Date of Surgery: 05/10/2020 SURGEON: Aiden Izquierdo MD, FACS PLANS EXAMINER: Ramandeep Araujo MD, FACS PREOPERATIVE DIAGNOSIS: Chronic [...] Aiden Izquierdo MD, FACS lkr Dictated: 05/10/2020 #[id number] Typed: 05/10/2020 #[id number] cc: Alon Weber M.D. Aiden Izquierdo MD, FACS [facility] Comment on above: Result Comment: Elec tronically Signed By: TIMBO POLK, Aiden Busby.ilana\Date and Time Signed: 05/11/20 08:04 EST Preoperative Documentson Preoperative Documents [id number]# 1.00CD:127 [facility] Preoperative Documents [id number]# 1.00CD:127 [facility] Consent for Treatmenton 04-24 Consent for Treatment [id number]#1 .00CD:127 [facility] Inpatient Patient Summaryon 05-10-2020 Inpatient Patient Summary [place] [id number] [facility] Clinical Discharge Instructions PERSON INFORMATION Name: RAJIV TOVAR [facility]#:[id number] PHYSICIANS Admitting Physician: Aiden IZQUIERDO MD Attending Physician: Aiden IZQUIERDO MD PCP: Gus POLK, Alon Discharge Diagnosis: Chronic cholecystitis with calculus Comment: PATIENT EDUCATION INFORMATION Instructions: Post Op Patient Instructions - FT (CUSTOM); How to Use an Incentive Spirometer; Izquierdo - Post Op Instructions (CUSTOM) Medication Leaflets: Follow up: With: Address: When: Aiden IZQUIERDO [address], [address] [place] [phone] [place] (1) Within 7 to 10 days Comments: Call for any problems. Call for followup appointment Type Location Start [facility] Follow Up [facility] 05/16/2020 1:00 PM 05/16/2020 1:15 PM Confirmed MEDICATION LIST Medications to Continue with No Changes Other Medications desvenlafaxine (desvenlafaxine 100 mg Tab-) 1 Tablets By Mouth every day. omeprazole (omeprazole 40 mg Cap-DR) 1 Capsules By Mouth every day. Refills: 2. ondansetron (Zofran ODT 4 mg Tab) 1 Tablets By Mouth 3 times a day. Refills: 0. Comment: Normal [facility] IntraOperative Documentson 07-10-2019 IntraOperative Documents [id number]# 1.00CD:127 Normal [facility] Main OR PACU I Recordon 04-24 Main OR PACU I Record PACU Phase I Document Type FT Summary Primary Physician: Aiden IZQUIERDO MD Finalized Date/Time: 05/10/20 11:13:04 Pt. Name: RAJIV TOVAR/Sex: 1995 Female Med Rec #: [id number] Physician: Aiden IZQUIERDO MD Financial #: [id number] Pt. Type: A Room/Bed: AS06/24 Admit/Disch: 05/10/20 [...] By: Belkys Yarbrough RN 05/10/20 11:13 Normal [facility] Main OR PACU II Recordon Main OR PACU II Record PACU Phase II Document Type FT Summary Primary Physician: Aiden IZQUIERDO MD Finalized Date/Time: 05/10/20 15:45:07 Pt. Name: RAJIV TOVAR Pilar/Sex: 1995 Female Med Rec #: [id number] Physician: Aiden IZQUIERDO MD Financial #: [id number] Pt. Type: A Room/Bed: Admit/Disch: 05/10/20 07:43:57 [...] By: Marcelina Cadet RN 05/10/20 15:45 Normal [facility] Main OR Preoperative Recordo n 05-10-2020 Main OR Preoperative Record PreOp Document Type FT Summary Primary Physician: Aiden IZQUIERDO MD Finalized Date/Time: 05/10/20 10:00:50 Pt. Name: RAJIV TOVAR /Sex: 1995 Female Med Rec #: [id number] Physician: Aiden IZQUIERDO MD Financial #: [id number] Pt. Type: A Room/Bed: Admit/Disch: 05/10/20 07:43:57 - Institution: Case Times PreOp FT Pre-Care Text: Verifies consent for planned procedure, identifies individual values and wishes concerning care, includes family members in perioperative teaching Entry 1 Patient Times. In Pre Surgery 05/10/20 07:55:00 Out Pre Surgery 05/10/20 09:27:00 Outcomes Met? Yes Last Modified By: My Calalhan RN 05/10/20 10:00:38 Post-Care Text: The patient participates in decisions affecting his or her perioperative plan of care Finalized By: My Callahan RN Document Signatures Signed By: My Callahan RN 05/10/20 10:00 Normal [facility] Monitor Recordon 05-10-2020 Monitor Record [id number]# 1.00CD:127 Normal [facility] Outpatient Surgery Discharge Instructionon 05-10-2020 Outpatient Surgery Discharge Instruction [place] [id number] Patient Discharge Instructions PERSON INFORMATION Name: RAJIV [...] With: Address: When: [address], [address] [place] [address] [place] () Within 7 to 10 days Comments: Call for any problems. Call for followup appointment Type Location [facility] Follow Up [facility] [place] 05/16/2020 1:00 PM 05/16/2020 1:15 PM Confirmed Pharmacy Information: Thank you for choosing [facility] HERE ARE THE MEDICATION CHANGES THAT OCCURRED [...] possible. ? If the spirometer includes a online health and fitness coach indicator, use this to guide you [...] pain from co (more content not included)... [facility] Patient Education - Texton 1 07-10-2019 [...] possible. ? If the spirometer includes a online health and fitness coach indicator, use this to guide you [...] 10/21/2007 Document Revised: 07/03/2018 Document Reviewed: 04/23/2018 [email or web address] Patient Education ? 2019 [email or web address]. [place], [place] Aiden Izquierdo MD, FACS POST OPERATIVE [...] or r (more content not included)... Normal [facility] Progress Note-Physicianon Progress Note-Physician Patient: RAJIV TOVAR Age: 25 years Sex: Female : 1995 Associated Diagnoses: None Author: Aiden IZQUIERDO MD Postoperative Information Date/ Time: 05/10/2020 10:26:00 Preoperative Diagnosis: Chronic cholecystitis with calculus (YUE05-LE K80.10, Working, Medical). Postoperative Diagnosis: Same pending pathology. Procedure: Laparoscopic Cholecystectomy with intraoperative chloangiogram. Performed by: Aiden Izquierdo MD. Parliamentary Counsel: Ramandeep Araujo MD. Specimens Removed: Gallbladder. Estimated Blood Loss: 5 ml. Complications: None. Normal [facility] Comment on above: Result Comment: Elec tronically Signed By: Aiden IZQUIERDO MD\.br\Date and Time Signed: 05/10/20 10:27 EST Progress Note-Physician Patient: RAJIV TOVAR Age: 25 years Sex: Female : 1995 Associated Diagnoses: None Author: Aiden IZQUIERDO MD Basic Information No change in History and Physical Normal [facility] Comment on above: Result Comment: [...] ALSO POSSIBLE. CLINICAL HISTORY: Cholelithiasis. COMMENT: Limited skuvb-ap-hwtc C-arm images were obtained in the OR, [...] Dose: Ka,r in mGy = 3.4 Normal [facility] Coding Summary.on 05-08-2020 Coding Summary. CODING DATE: 05/07/2020 FINAL [facility] [place] [facility] STATUS: Home (Routine DC) PAYOR: Reba ADMIT [...] CphT Date Saved: 05/07/2020 10:24 pm Normal [facility] Coding Summary.on 05-05-2020 Coding Summary. CODING DATE: 05/05/2020 FINAL [facility] [place] [facility] STATUS: Home (Routine DC) PAYOR: Reba APC DESCRIPTION 5301 Level 1 Upper GI Procedures ADMIT DX: REASON FOR VISIT DX: R10.13 Epigastric pain FINAL DX: PRINCIPAL: R10.13 Epigastric pain SECONDARY: R10.11 Right upper quadrant pain F41.9 Anxiety disorder, unspecified PYMT PROC APC STAT DESCRIPTION DOCTOR NAME DATE [id number] Ezequiel WEST MD 04/29/2020 phagogastroduodenosco py, flexible, transoral; with biopsy, single or multiple 38357 Anesthesia for upper Husain Bakari Berry DO [...] Mae Revised Date Saved: 05/05/2020 11:48 am [facility] Consent for Procedure/Surger yon 05-05-2020 Consent for Procedure/Surgery [id number]#1 .00CD:127 [facility] Formson 05-05-2020 Forms [id number]#1 .00CD:127 [facility] Priority Order-Mitchell 2019 Priority Order-STAT Comment Invalid Interpretation Code [facility] Comment on above: Result Comment: Rece ived Performed at: [facility] [address] [facility], [place] [id number] [facility] Johanny Lozano Performed By: #### 2 [id number], SARS-CoV-2, MARY #### [facility] [address] [place] [address] SARS-CoV-2, NAAon 05-05-2020 SARS-CoV-2 (COVID-19) RNA MARY+probe Ql (Resp) Not detected Invalid Interpretation Code Not Detected [facility] Comment on above: Result Comment: This nucleic acid amplification test was developed and its performance characteristics determined by [facility]. Nucleic acid amplification tests include PCR and [...] detected) result in this assay. Performed at: [facility] [address] [facility] [place] [id number] MD Indira Washington Performed By: #### 2 [id number], SARS-CoV-2, MARY #### [facility] [address] [place] [address] B hCG Qualon 05-04-2020 Beta hCG Ql Negative Normal [facility] Comment on above: Performed By: #### 2 [id number] #### [facility] [address] [place] [address] CBC w/Indiceson 05-04-2020 Erythrocyte distribution width (RBC) [Ratio] 13.1 % Normal 10.9-14.2 [facility] Comment on above: Performed By: #### 2 979879, [id number] ####[address] [address] Hematocrit (Bld) [Volume fraction] 40.5 % Normal 34.0-46.0 [facility] Comment on above: Performed By: #### 2 437764, 7972415 ####[address] [address] Hemoglobin (Bld) [Mass/Vol] 14.0 g/dL Normal 12.0-16.0 [facility] Comment on above: Performed By: #### 2 916822, 0954007 ####[address] [address] MCH (RBC) [Entitic mass] 31.0 pg Normal 27.0-34.0 [facility] Comment on above: Performed By: #### 2 865926, 5101027 ####[address] [address] MCHC (RBC) [Mass/Vol] 34.6 g/dL Normal 31.4-36.0 [facility] Comment on above: Performed By: #### 2 225382, 0103949 ####[address] [address] MCV (RBC) [Entitic vol] 89.7 fL Normal 80.0-100.0 [facility] Comment on above: Performed By: #### 2 066739, 7406867 ####[address] [address] Platelet mean volume (Bld) [Entitic vol] 9.1 fL Normal 6.4-10.8 [facility] Comment on above: Performed By: #### 2 251627, 0400101 ####[address] [address] Platelets (Bld) [#/Vol] 245.0 E9/L Normal 150.0-500.0 [facility] Comment on above: Performed By: #### 2 918788, 6030891 ####[facility] [address] [place] [address] RBC (Bld) [#/Vol] 4.5 E12/L Normal 4.3-5.9 [facility] Comment on above: Performed By: #### 2 598270, 3597302 ####[facility] [address] [place] [address] WBC corrected for nucl RBC Auto (Bld) [#/Vol] 5.6 E9/L Normal 4.0-11.0 [facility] Comment on above: Performed By: #### 2 832675, 9208672 ####[address] [address] Consent for Treatmenton 04-24 Consent for Treatment [id number]#1 .00CD:127 Normal [facility] Hep Func Panelon 05-04-2020 Albumin [Mass/Vol] 4.2 g/dL Normal 3.3-5.0 [facility] Comment on above: Order Comment: if no t already done. Performed By: #### 2 099918, 1211581 ####[address] [address] Albumin/Globulin (S) [Mass conc ratio] 1.4 Normal 1.1-2.2 [facility] Comment on above: Order Comment: if no t already done. Performed By: #### 2 479418, 9126528 ####[facility] [address] [place] [address] ALP [Catalytic activity/Vol] 112 Int._Unit/L High 21-98 [facility] Comment on above: Order Comment: if no t already done. Performed By: #### 2 241195, 7942239 ####[facility] [address] [place] [address] ALT No additional P-5'-P [Catalytic activity/Vol] 129 Int._Unit/L High 6-46 [facility] Comment on above: Order Comment: if no t already done. Performed By: #### 2 226322, 8318389 ####[facility] [address] [place] [address] AST [Catalytic activity/Vol] 28 Int._Unit/L Normal 5-43 [facility] Comment on above: Order Comment: if no t already done. Performed By: #### 2 333210, 8131340 ####[address] [address] Bilirubin [Mass/Vol] 0.7 mg/dL Normal 0.0-1.1 [facility] Comment on above: Order Comment: if no t already done. Performed By: #### 2 576553, 0903220 ####[address] [address] Bilirubin.direct [Mass/Vol] 0.1 mg/dL Normal 0.1-0.4 [facility] Comment on above: Order Comment: if no t already done. Performed By: #### 2 062411, 4403779 ####[facility] [address] [place] [address] Bilirubin.indirect [Mass or moles/Vol] 0.6 mg/dL Normal 0.1-0.9 [facility] Comment on above: Order Comment: if no t already done. Performed By: #### 2 779179, 1071082 ####[address] [address] Globulin (S) [Mass/Vol] 3.1 g/dL Normal 1.4-4.0 [facility] Comment on above: Order Comment: if no t already done. Performed By: #### 2 020392, 3246194 ####[facility] [address] [place] [address] Protein [Mass/Vol] 7.3 g/dL Normal 6.0-7.8 [facility] Comment on above: Order Comment: if no t already done. Performed By: #### 2 935153, 5471950 ####[facility] [address] [place] [address] Ambulatory Clinical Summaryo n 05-03-2020 Ambulatory Clinical Summary {[id number]}CD:177233 [facility] Consent for Procedure/Surger yon 05-03-2020 Consent for Procedure/Surgery [id number]#1 .00CD:127 [facility] Consent for Procedure/Surgery [id number]#1 .00CD:127 [facility] Formson 05-03-2020 Forms [id number]#1 .00CD:127 [facility] Forms [id number]#1 .00CD:127 [facility] Physician Orderon 05-03-2020 Physician Order [id number]#1 .00CD:127 [facility] Physician Referralon 020 Physician Referral [id number]#1 .00CD:127 [facility] Postoperative Documentson Postoperative Documents [id number]# 1.00CD:127 [facility] Progress Note-Physicianon Progress Note-Physician Patient: RAJIV [...] TID, # 10 tab(s), Refills(s) 0, Pharmacy: [facility]/pharmacy #[id number], 168, cm, 04/19/20 6:20:00 EDT, Height/Length Dosing, 58.5, kg, 04/19/20 6:20:00 EDT, Weight Dosing omeprazole 40 mg Cap-DR: 40 mg = 1 cap(s), Oral, Daily, # 30 cap(s), Refills(s) 2, Pharmacy: [facility]/pharmacy #[id number], 168, cm, 04/20/20 10:06:00 [...] Cardiovascular: Regular rhythm. Neurologic: Alert, Oriented. Plan [place] [employer] Anesthesiologists (ASA) physical status classification: Class II. Anesthetic Preoperative Plan Anesthesia: General. . Anesthetic plan, risks, benefits, and alternatives discussed with the patient and/or family. Communication: face to face with (patient 5 minutes, Patient educated on smoking cesstation). Normal [facility] Comment on above: Result Comment: [...] vomiting. Plan Transfer/ Discharge: Condition stable. Normal [facility] Comment on above: Result Comment: Elec tronically Signed By: Bakari Husain Jr, DO\.br\Date and Time Signed: 05/03/20 09:37 EST Consenton 05-02-2020 Consent [id number] .00CD:127 [facility] Discharge Instructionson Discharge Instructions [id number]#1 .00CD:127 Normal [facility] General Surgery Office/Clini c Noteon [...] When Contact Information TIMBO POLK, Aiden [address] [place] [address]- Additional Instructions: F/U POST OP. [...] Family History Family history is negative Normal [facility] Comment on above: Result Comment: Elec tronically Signed By: Aiden IZQUIERDO MD\.br\Date and Time Signed: 05/02/20 15:39 EST\.br\Electronically Co-Signed By: Mildred Cook MA.br\Date and Time Co-Signed: 05/02/20 15:25 EST IntraOperative Documentson 1 07-02-2019 IntraOperative Documents [id number]#1 .00CD:127 Normal [facility] IntraOperative Documents [id number]#1 .00CD:127 Normal [facility] Main OR Intraoperative Recor don 05-02-2020 Main OR Intraoperative Record IntraOp Document Type FT Summary Primary Physician: Ezequiel MARTINEZ MD Finalized Date/Time: 05/02/20 08:23:39 Pt. Name: AKHIL RAJIV Quezada/Sex: 1995 Female Med Rec #: [id number] Physician: Ezequiel MARTINEZ MD Financial #: [id number] Pt. Type: O Room/Bed: / Admit/Disch: 04/29/20 10:12:58 - 04/29/20 23:59:59 Institution: Case Times FT Entry 1 Patient Times In Room 04/29/20 10:52:00 Out Room 04/29/20 11:04:00 Procedure Times Start 04/29/20 10:56:00 Stop 04/29/20 10:59:00 Anesthesia Times Start 04/29/20 10:52:00 Stop 04/29/20 11:04:00 Last Modified By: Russell Maloney RN 04/29/20 11:04:12 General Comments: 05/02/2020 Chart opened to review and send charges. 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 Case Attendance FT Entry 1 Entry 2 Entry 3 Case Attendee Rodrigue Berry DO, Bakari MARTINEZ MD, Russell Lawrence RN Role Performed Anesthesiologist of Surgeon - Primary Design Assistant - Primary Record Time In 04/29/20 10:52:00 04/29/20 10:52:00 04/29/20 10:52:00 Time Out 04/29/20 11:04:00 04/29/20 11:04:00 04/29/20 11:04:00 Procedure EGD(.) EGD(.) EGD(.) Comments Last Modified By: Haider TURNER, Russell Maloney RN, Russell Santos RN 04/29/20 11:04:13 04/29/20 11:04:13 04/29/20 11:04:13 Entry 4 Entry 5 Entry 6 Case Attendee Mere TURNER, Charlotte Roberts CST, Aria Role Performed Design Assistant - Primary Scrub - Primary Staff - [...] Arm P (more content not included)... Normal [facility] [place] [facility] Ezequiel Martinez M.D. [address] [place] [address] Re: RAJIV TOVAR Date of : 1995 [...] report following her procedure. Sincerely Aiden Kaplan [facility] Coding Summary.on 04-30-2020 Coding Summary. CODING DATE: 04/29/2020 FINAL [facility] [place] [facility] STATUS: Home (Routine DC) PAYOR: Reba ADMIT [...] Jaquez CphT Date Saved: 04/29/2020 11:14 pm [facility] Consent for Treatmenton Consent for Treatment [id number]#1 .00CD:127 [facility] Endoscopic Procedure Report - Otheron 04-29-2020 [...] surgery for right upper quadrant pain/cholelithiasis Normal [facility] Comment on above: Result Comment: Elec tronically Signed By: Ezequiel MARTINEZ MD\.br\Date and Time Signed: 04/29/20 11:03 EST Other Comment: Lorri frazier Attachment - attachment storage system not supported [id number] Can be viewed in source systemMissing Attachment - attachment storage system not supported [id number] Can be viewed in source systemMissing Attachment - attachment storage system not supported [id number] Can be viewed in source systemMissing Attachment - attachment storage system not supported [id number] Can be viewed in source systemMissing Attachment - attachment storage system not supported [id number] Can be viewed in source system Inpatient Patient Summaryon 04-29-2020 Inpatient Patient Summary [place] [id number] [facility] Clinical Discharge Instructions PERSON INFORMATION Name: RAJIV TOVAR PHYSICIANS Admitting Physician: Ezequiel MARTINEZ MD Attending Physician: Ezequiel MARTINEZ MD PCP: Alon Weber MD Discharge Diagnosis: Abdominal pain Comment: PATIENT EDUCATION INFORMATION Instructions: Medication Leaflets: Follow up: With: Address: When: Aiden IZQUIERDO [address], [address] [place] [address] Business (1) With: Address: When: Ezequiel [facility] [address], [place] [address] Within 2 weeks Type Location Start [facility] Follow Up [facility] [place] 05/16/2020 1:00 PM 05/16/2020 1:15 PM Confirmed [...] times a day. Refills: 0. Comment: Normal [facility] Main OR PACU I Recordon Main OR PACU I Record PACU Phase I Document Type FT Summary Primary Physician: Ezequiel MARTINEZ MD Finalized Date/Time: 04/29/20 12:13:51 Pt. Name: RAJIV TOVAR/Sex: 1995 Female Med Rec #: [id number] Physician: Ezequiel MARTINEZ MD Financial #: [id number] Pt. Type: O Room/Bed: / Admit/Disch: 04/29/20 [...] By: Belkys Yarbrough RN 04/29/20 12:13 Normal [facility] Main OR Preoperative Recordo n 04-29-2020 Main OR Preoperative Record Holding Area Document Type FT Summary Primary Physician: Ezequiel MARTINEZ MD Finalized Date/Time: 04/29/20 10:21:44 Pt. Name: RAJIV TOVAR/Sex: 1995 Female Med Rec #: [id number] Physician: Ezequiel MARTINEZ MD Financial #: [id number] Pt. Type: O Room/Bed: / Admit/Disch: 04/29/20 [...] By: Marielle Pineda RN 04/29/20 10:21 Normal [facility] Monitor Recordon 04-29-2020 Monitor Record [id number]# 1.00CD:127 Normal [facility] Outpatient Surgery Discharge Instructionon 04-29-2020 Outpatient Surgery Discharge Instruction [place] [id number] Patient Discharge Instructions PERSON INFORMATION Name: RAJIV [...] Aiden IZQUIERDO [address], [address] [facility] [place] [address] Business (1) With: Address: When: [facility] [address] [place] [address] Within 2 weeks Type Location [facility] Follow [facility] [place] 05/16/2020 1:00 PM 05/16/2020 1:15 PM Confirmed Pharmacy Information: Thank you for choosing [facility] HERE ARE THE MEDICATION CHANGES THAT OCCURRED [...] Refills: 0. PATIENT EDUCATION INFORMATION Instructions: Normal [facility] Patient Education - Texton 1 06-29-2019 Patient Education - Text Normal [facility] Priority Order-Mitchell 2019 Priority Order-STAT Comment Invalid Interpretation Code [facility] Comment on above: Result Comment: Rece ived Performed at: [facility] [address] [place], [place] [id number] MD Indira Washington Performed By: #### 2 [id number], SARS-CoV-2, MARY #### [facility] [address] [place] [address] SARS-CoV-2, NAAon 04-23-2020 SARS-CoV-2 (COVID-19) RNA MARY+probe Ql (Resp) Not detected Invalid Interpretation Code Not Detected [facility] Comment on above: Result Comment: This nucleic acid amplification test was developed and its performance characteristics determined by [employer]. Nucleic acid amplification tests include PCR and [...] detected) result in this assay. Performed at: [facility] [address] [facility] [place] [id number] MD Indira Washington Performed By: #### 2 [id number], SARS-CoV-2, MARY #### [facility] [address] [place] [address] Ambulatory Clinical Summaryo n 04-20-2020 Ambulatory Clinical Summary {[id number]}CD:891992 Normal [facility] Coding Summary.on 04-20-2020 Coding Summary. CODING DATE: 04/20/2020 FINAL [facility] [place] [facility] STATUS: Home (Routine DC) PAYOR: [place] APC DESCRIPTION 5522 Level 2 Imaging without [...] Revised Date Saved: 04/20/2020 07:55 am Normal [facility] Consent for Procedure/Surger yon 04-20-2020 Consent for Procedure/Surgery [id number] .00CD:127 Normal [facility] Gastroenterology Office/Clin ic Noteon 04-20-2020 Gastroenterology Office/Clinic Note Chief Complaint f/u to ER RUQ HPI Staff This is a 24 year old female who presents today for a follow up for an ED visit for RUQ pain. History of Present Illness 24 years old white female with no significant past medical history except for anxiety, referred to me from [facility] to be evaluated for right upper quadrant abdominal pain, she reports right upper quadrant abdominal pain, started 6 weeks ago, sporadic, moderate in nature except for the last time when it was severe for which she went to [facility], she had normal CBC, CMP [...] Daily, # 30 cap(s), Refills(s) 2, Pharmacy: [facility]/pharmacy #[id number], 168, cm, 04/20/20 10:06:00 EDT, Height/Length Dosing, 59.5, kg, 04/20/20 10:06:00 EDT, Weight Dosing EGD Endoscopy (Hospital Procedure) 2. Anxiety (F41.9: Anxiety disorder, unspecified) 3. Nausea (R11.0: Nausea) Ordered: omeprazole, 40 mg = 1 cap(s), Oral, Daily, # 30 cap(s), Refills(s) 2, [id number], 168, cm, 04/20/20 10:06:00 EDT, Height/Length Dosing, 59.5, kg, 04/20/20 10:06:00 EDT, Weight Dosing EGD Endoscopy (Hospital Procedure) Follow-up With When Contact Information Ezequiel MARTINEZ MD Within 2 weeks [facility] [address] [facility], [place] [address]- Additional Instructions: Patient Education Abdominal [...] Family History Family history is negative Normal [facility] Comment on above: Result Comment: [...] directed by your caregiver. ? Only take lpex-xqu-ajlqmox or prescription medicines for pain, discomfort, or [...] Document Reviewed: 01/26/2009 ExitCare? Patient Information ?2013 [employer]. Family Medicine Abdominal Pain Abdominal pain can [...] directed by your caregiver. ? Only take utkx-wpn-hwhgnuk or prescription medicines for pain, discomfort, or [...] Document Reviewed: 01/26/2009 ExitCare? Patient Information ?2013 [employer]. Normal [facility] Physician Orderon 04-20-2020 Physician Order [id number]# 1.00CD:127 Normal [facility] Physician Order [id number]#1. 00CD:127 Normal [facility] Auto Diffon 04-19-2020 Basophils/100 WBC (Bld) 0.6 % Normal 0.0-2.0 [facility] Comment on above: Order Comment: Order Added by Discern Expert. Performed By: #### 2 [id number] #### [facility] [address] [place] [address] Basophils/Leukocytes Auto (Bld) [Pure # fraction] 0.0 E9/L Normal 0.0-0.2 [facility] Comment on above: Order Comment: Order Added by Discern Expert. Performed By: #### 2 [id number] #### [facility] [address] [place] [address] Eosinophils/100 WBC (Bld) 0.2 % Normal 0.0-8.0 [facility] Comment on above: Order Comment: Order Added by Discern Expert. Performed By: #### 2 [id number] #### [facility] [address] [place] [address] Eosinophils/Leukocyt es Auto (Bld) [Pure # fraction] 0.0 E9/L Normal 0.0-0.5 [facility] Comment on above: Order Comment: Order Added by Discern Expert. Performed By: #### 2 [id number] #### [facility] [address] [place] [address] Lymphocytes/100 WBC (Bld) 34.4 % Normal 14.0-50.0 [facility] Comment on above: Order Comment: Order Added by Discern Expert. Performed By: #### 2 [id number] #### [facility] [address] [place] [address] Lymphocytes/Leukocyt es Auto (Bld) [Pure # fraction] 2.5 E9/L Normal 1.0-4.0 [facility] Comment on above: Order Comment: Order Added by Discern Expert. Performed By: #### 2 [id number] #### [facility] [address] [place] [address] Monocytes/100 WBC (Bld) 6.1 % Normal 4.0-14.0 [facility] Comment on above: Order Comment: Order Added by Discern Expert. Performed By: #### 2 [id number] #### [facility] [address] [place] [address] Monocytes/Leukocytes Auto (Bld) [Pure # fraction] 0.4 E9/L Normal 0.2-1.0 [facility] Comment on above: Order Comment: Order Added by Discern Expert. Performed By: #### 2 [id number] #### [facility] [address] [place] [address] 00071 Neutrophils/100 WBC (Bld) 58.7 % Normal 36.0-75.0 [facility] Comment on above: Order Comment: Order Added by Discern Expert. Performed By: #### 2 [id number] #### [facility] [address] [place] [address] 83174 Neutrophils/Leukocyt es Auto (Bld) [Pure # fraction] 4.2 E9/L Normal 2.0-7.5 [facility] Comment on above: Order Comment: Order Added by Discern Expert. Performed By: #### 2 [id number] #### [facility] [address] [place] [address] BMPon 04-19-2020 Creatinine [Mass/Vol] 0.8 mg/dL Normal 0.5-1.3 [facility] Comment on above: Performed By: #### 2 [id number] #### [facility] [address] [place] [address] Urea nitrogen [Mass/Vol] 12 mg/dL Normal 5-21 [facility] Comment on above: Performed By: #### 2 [id number] #### [facility] [address] [place] [address] Urea nitrogen/Creatinine [Mass ratio] 15 No Units Normal 10- [facility] Comment on above: Performed By: #### 2 [id number] #### [facility] [address] [place] [address] Anion gap [Moles/Vol] 11 mmol/L Normal 6-16 [facility] Comment on above: Performed By: #### 2 [id number] #### [facility] [address] [place] [address] Calcium [Mass/Vol] 9.7 mg/dL Normal 8.9-11.1 [facility] Comment on above: Performed By: #### 2 [id number] #### [facility] [address] [place] [address] Chloride [Moles/Vol] 103 mmol/L Normal 101-111 [facility] Comment on above: Performed By: #### 2 [id number] #### [facility] [address] [place] [address] CO2 [Moles/Vol] 27 mmol/L Normal 21-31 [facility] Comment on above: Performed By: #### 2 [id number] #### [facility] [address] [place] [address] Glucose [Mass/Vol] 97 mg/dL Normal 55-199 [facility] Comment on above: Result Comment: If t his glucose result represents a fasting glucose, interpretation should refer to the following reference range: 55-99 mg/dL Performed By: #### 2 [id number] #### [facility] [address] [place] [address] Potassium [Moles/Vol] 3.5 mmol/L Normal 3.5-5.3 [facility] Comment on above: Performed By: #### 2 [id number] #### [facility] [address] [place] [address] Sodium [Moles/Vol] 137 mmol/L Normal 135-145 [facility] Comment on above: Performed By: #### 2 [id number] #### [facility] [address] [place] [address] CBC w/ Auto Diffon 10--202 0 Erythrocyte distribution width (RBC) [Ratio] 13.3 % Normal 10.9-14.2 [facility] Comment on above: Performed By: #### 2 [id number] #### [facility] [address] [place] [address] Hematocrit (Bld) [Volume fraction] 37.6 % Normal 34.0-46.0 [facility] Comment on above: Performed By: #### 2 [id number] #### [facility] [address] [place] [address] Hemoglobin (Bld) [Mass/Vol] 13.4 g/dL Normal 12.0-16.0 [facility] Comment on above: Performed By: #### 2 [id number] #### [facility] [address] [place] [address] MCH (RBC) [Entitic mass] 31.9 pg Normal 27.0-34.0 [facility] Comment on above: Performed By: #### 2 [id number] #### [facility] [address] [place] [address] MCHC (RBC) [Mass/Vol] 35.7 g/dL Normal 31.4-36.0 [facility] Comment on above: Performed By: #### 2 [id number] #### [facility] [address] [place] [address] 51911 MCV (RBC) [Entitic vol] 89.2 fL Normal 80.0-100.0 [facility] Comment on above: Performed By: #### 2 [id number] #### [facility] [address] [place] [address] 40108 Platelet mean volume (Bld) [Entitic vol] 9.4 fL Normal 6.4-10.8 [facility] Comment on above: Performed By: #### 2 [id number] #### [facility] [address] [place] [address] 47[address] Platelets (Bld) [#/Vol] 219.0 E9/L Normal 150.0-500.0 [facility] Comment on above: Performed By: #### 2 [id number] #### [facility] [address] [place] [address] 07671 RBC (Bld) [#/Vol] 4.2 E12/L Low 4.3-5.9 [facility] Comment on above: Performed By: #### 2 [id number] #### [facility] [address] [place] [address]60[address] WBC corrected for nucl RBC Auto (Bld) [#/Vol] 7.2 E9/L Normal 4.0-11.0 [facility] Comment on above: Performed By: #### 2 [id number] #### [facility] [address] [place] [address] Consent for Treatmenton 03-25 Consent for Treatment [id number] .00CD:127 Normal [facility] Discharge Instructionson Discharge Instructions [id number]# 1.00CD:127 Normal [facility] ED Clinical Summaryon 2019 ED Clinical Summary [address] [id number] ED Clinical Summary [facility] Age[facility] 24 Years : 1995 Sex: Female Language: Lithuanian PCP: Alon Weber MD Marital Status: Single [...] 08:58:55 04/19/2020 08:58:55 ADDRESS: [address] [facility] [id number] PHYS DOC NOTES: Addendum by Laureano Phillip DO on April 19, 2020 08:26:02 EDT MEDICAL INFORMATION: Prescriptions Given: New Medications [id number], [address], [place] [id number], [phone] dicyclomine (dicyclomine 20 mg Tab) 1 Tablets By Mouth 3 times a day for 7 Days. Refills: 0. ondansetron (Zofran ODT 4 mg Tab) 1 Tablets By Mouth 3 times a day. Refills: 0. PATIENT EDUCATION INFORMATION: Instructions: Cholelithiasis Follow up: With: Address: When: [facility], [address] [place] [address] Business (1) In 3 days 04/22/2020 DIAGNOSIS: 1:Abdominal pain; Biliary colic; Gall stone; Nausea Normal [facility] ED Note-Nursingon 04-19-2020 ED Note-Nursing Report received from Zacarias Cuevas RN. Patient resting on cart. Updated on plan of care. Denies any needs at this time. Call light in reach. Normal [facility] ED Note-Physicianon 04-19-20 ED Note-Physician [...] Diagnosis: Abdominal pain, cholelithiasis, biliary colic Normal [facility] Comment on above: Result Comment: [...] medicine. HOME CARE INSTRUCTIONS ? Only take ttjz-[id number] or prescription medicines for pain, discomfort, or [...] Document Reviewed: 12/02/2013 ExitCare? Patient Information ?2015 [employer]. This information is not intended to replace advice given to you by your health care provider. Make sure you discuss any questions you have with your health care provider. Normal [facility] ED Patient Summaryon 020 ED Patient Summary [address] [address] Patient Discharge Instructions Person Information Name: RAJIV TOVAR Age: 24 Years Arrival Date: 04/19/2020 06:10:12 Discharge Diagnosis: 1:Abdominal pain; Biliary colic; Gall stone; Nausea Primary Care Physician: Alon Weber MD Provider Information Primary Provider: Susana Belcher M.D. Advanced Group Teacher:None The exam and treatment you received in the Emergency Department were for an urgent problem and are not intended as complete care. It is important that you follow up with a doctor, nurse practitioner, or physician?s housekeeper/laundry assistant for ongoing care. If your symptoms become worse or you do not improve as expected and you are unable to reach your usual health care provider, you should return to the Emergency Department. We are available 24 hours a day. RAJIV TOVAR has been given the following list of patient education materials, prescriptions and follow-up instructions: Follow-up Instructions: With: Address: When: [facility], [address] [place] [address] Business (1) In 3 days 04/22/2020 In the event that this physician does not participate in your insurance network, please consult with your insurance company to find a nearby participating provider. Patient Education Materials: Cholelithiasis A MESSAGE TO ALL PATIENTS REGARDING OPIOIDS PRESCRIPTION OPIOIDS: WHAT YOU NEED TO KNOW Prescription opioids can be used to help relieve fdzfruij-vv-blclpo pain and are often prescribed following a [...] be struggling with addiction, tell your health rn primary care and ask for guidance or call [facility]S National Helpline at [phone] (more content not included)... Normal [facility] Hep Func Panelon 04-19-2020 Bilirubin.indirect [Mass or moles/Vol] UTC Abnormal 0.1-0.9 [facility] Comment on above: Result Comment: Resu lt verified by Discern Rule. Performed result UTC (Unable to Calculate) was sent as an Alpha code due the inability to calculate a valid numeric value. Performed By: #### 2 [id number] #### [facility] [address] [place] [address] Albumin [Mass/Vol] 4.3 g/dL Normal 3.3-5.0 [facility] Comment on above: Performed By: #### 2 [id number] #### [facility] [address] [place] [address] Albumin/Globulin (S) [Mass conc ratio] 1.5 Normal 1.1-2.2 [facility] Comment on above: Performed By: #### 2 [id number] #### [facility] [address] [place] [address] ALP [Catalytic activity/Vol] 77 Int._Unit/L Normal 21-98 [facility] Comment on above: Performed By: #### 2 [id number] #### [facility] [address] [place] [address] ALT No additional P-5'-P [Catalytic activity/Vol] 59 Int._Unit/L High 6-46 [facility] Comment on above: Performed By: #### 2 [id number] #### [facility] [address] [place] [address] AST [Catalytic activity/Vol] 36 Int._Unit/L Normal 5-43 [facility] Comment on above: Performed By: #### 2 [id number] #### [facility] [address] [place] [address] Bilirubin [Mass/Vol] 0.4 mg/dL Normal 0.0-1.1 [facility] Comment on above: Performed By: #### 2 [id number] #### [facility] [address] [place] [address] Bilirubin.direct [Mass/Vol] mg/dL Normal 0.1-0.4 [facility] Comment on above: Performed By: #### 2 [id number] #### [facility] [address] [place] [address] Globulin (S) [Mass/Vol] 2.8 g/dL Normal 1.4-4.0 [facility] Comment on above: Performed By: #### 2 [id number] #### [facility] [address] [place] [address] Protein [Mass/Vol] 7.1 g/dL Normal 6.0-7.8 [facility] Comment on above: Performed By: #### 2 [id number] #### [facility] [address] [place] [address] Lipase Levelon 04-19-2020 Lipase [Catalytic activity/Vol] 43 U/L Normal 13-58 [facility] Comment on above: Performed By: #### 2 [id number] #### [facility] [address] [place] [address] PT & PTTon 04-19-2020 aPTT Coag (PPP) [Time] 30.2 second(s) Normal 25.1-36.5 [facility] Comment on above: Result Comment: Hepa rin therapeutic range (represented by Anti-Factor Xa activity of 0.2 - 0.4 U/mL) corresponds to PTT of 56.6 - 109.0 sec. Performed By: #### 2 [id number] #### [facility] [address] [place] [address] INR Coag (PPP) [Relative time] 1.0 {INR} Invalid Interpretation Code [facility] Comment on above: Result Comment: INR results are specifically intended to assess patients stabilized on long-term Anticoagulation therapy suggested INR?s ?Less Intensive Anticoagulation? 2.0 ? 3.0 Conventional Range 3.0 ? 4.5 Performed By: #### 2 [id number] #### [facility] [address] [place] [address] PT Coag (PPP) [Time] 11.8 second(s) Normal 10.2-12.9 [facility] Comment on above: Performed By: #### 2 [id number] #### [facility] [address] [place] [address] Prescriptions/Work Noteson 1 Prescriptions/Work Notes [id number]# 1.00CD:127 Normal [facility] U BetaHcg Qualon 04-19-2020 HCG.beta subunit (U) [Moles/Vol] Negative Normal [facility] Comment on above: Performed By: #### 2 [id number] #### [facility] [address] [place] [address] UA With Cult Reflexon 2019 Bacteria LM Ql (Urine sed) TRACE Normal Trace [facility] Comment on above: Performed By: #### 2 [id number] #### [facility] [address] [place] [address] Bilirubin Ql (U) Negative Normal Negative [facility] Comment on above: Performed By: #### 2 [id number] #### [facility] [address] [place] [address] Clarity (U) CLEAR Normal Clear [facility] Comment on above: Performed By: #### 2 [id number] #### [facility] [address] [place] [address] Color (U) YELLOW Normal Yellow [facility] Comment on above: Performed By: #### 2 [id number] #### [facility] [address] [place] [address] Crystals LM Ql (Urine sed) Present Normal [facility] Comment on above: Performed By: #### 2 [id number] #### [facility] [address] [place] [address] Epithelial cells.squamous LM.HPF (Urine sed) [#/Area] 3-4 Normal 0-2 [facility] Comment on above: Performed By: #### 2 [id number] #### [facility] [address] [place] [address] Glucose Test strip (U) [Mass/Vol] Negative Normal Negative [facility] Comment on above: Performed By: #### 2 [id number] #### [facility] [address] [place] [address] Hemoglobin Ql (U) TRACE Abnormal Negative [facility] Comment on above: Performed By: #### 2 [id number] #### [facility] [address] [place] [address] Ketones (U) [Mass/Vol] Negative Normal Negative [facility] Comment on above: Performed By: #### 2 [id number] #### [facility] [address] [place] [address] [place].plasma/Lithi um.RBC (Bld) [Mass ratio] 0-3 Normal 0-3 [facility] Comment on above: Performed By: #### 2 [id number] #### [facility] [address] [place] [address] Nitrite Ql (U) Negative Normal Negative [facility] Comment on above: Performed By: #### 2 [id number] #### [facility] [address] [place] [address] pH (U) 6.5 [pH] Invalid Interpretation Code 5.0-9.0 [facility] Comment on above: Performed By: #### 2 [id number] #### [facility] [address] [place] [address] Protein (U) [Mass/Vol] Negative Normal Negative [facility] Comment on above: Performed By: #### 2 [id number] #### [facility] [address] [place] [address] Specific gravity (U) [Rel density] 1.025 Invalid Interpretation Code 1.005-1.030 [facility] Comment on above: Performed By: #### 2 [id number] #### [facility] [address] [place] [address] UA Spec Desc Clean Catch Normal [facility] Comment on above: Performed By: #### 2 [id number] #### [facility] [address] [place] [address] Urobilinogen Qn (U) 0.2 {Arnie'U}/dL Normal 0.0-1.0 [facility] Comment on above: Performed By: #### 2 [id number] #### [facility] [address] [place] [address] WBC Auto Ql (U) Negative Normal Negative [facility] Comment on above: Performed By: #### 2 [id number] #### [facility] [address] [place] [address] WBC LM.HPF (Urine sed) [#/Area] 0-5 Normal 0-5 [facility] Comment on above: Performed By: #### 2 [id number] #### [facility] [address] [place] [address] US Abdomen, Limitedon 2019 US Abdomen, Limited [...] M.D. Transcribed by: OLGA Technologist: RENETTA Kaplan [facility] eGFRon 04-19-2020 GFR/1.73 sq M.predicted among blacks MDRD (S/P/Bld) [Vol rate/Area] mL/min/{1.73_m2} Normal >=59 [facility] Comment on above: Order Comment: Order added by Discern Expert. Result Comment: eGFR is race adjusted. AA=. Performed By: #### 2 [id number] #### [facility] [address] [place] [address] GFR/1.73 sq M.predicted among non-blacks MDRD (S/P/Bld) [Vol rate/Area] mL/min/{1.73_m2} Normal >=59 [facility] Comment on above: Order Comment: Order added by Discern Expert. Result Comment: Neighborhood Coordinator bib kidney disease could be indicated at eGFR's of less than 60 mL/min/1.73m2. Kidney failure is indicated at less than 15 mL/min/1.73m2. Performed By: #### 2 [id number] #### [facility] [address] [place] [address] Encounters Encounter Date Encounter Type Care Provider [...] DERM [address] [place] [id number] My Singh MD [address] [place], [place] [id number] [facility] Start: 08-22-2023 End: 08-22-2023 Patient encounter procedure 08/22/2023 11:50 AM EST Office Visit [facility] [address] [place] [address] Flynn Archibald, DO [address] [place] [address] [place] [address] [facility] Payers Date Payer Category Payer Unknown [id number] 1995 Unknown [id number] 2.16.84 [id number] 1995 Unknown [id number] 2.16.84 0.1.583086.3.579.2.593 1995 Unknown [id number] 2.16.84 0.1.605203.3.579.2.593 1993 Unknown [id number] 2.16.84 0.1.376871.3.579.2.593 1993 Unknown [id number] 2.16.84 0.1.276670.3.579.2.593 1993 Unknown [id number] 2.16.84 0.1.513361.3.579.2.1259 1993 Unknown [id number] 2.16.84 0.1.841031.3.579.2.1259 1993 Unknown [id number] 2.16.84 0.1.884749.3.579.2.1259 1993 Unknown [id number] 2.16.84 0.1.260005.3.579.2.1259 1993 Unknown [id number] 2.16. 840.1.716098.3.579.2.196 1995 Unknown [id number] 2.16. [id number] 1995 Unknown [id number] 2.16. [id number] 1961 Unknown [id number] Social History Date Type Detail Facility Tobacco smoking stat [facility] Tobacco smoking consumption unknown [facility] Start: 1995 Sex Assigned At Not on file [facility] Start: 08-08-2023 Gender identity Not on file [facility] Start: 08-08-2023 Tobacco smoking stat [facility] Never smoked tobacco [facility] Start: 08-08-2023 Tobacco use and exposure Smokeless t obacco non-user [facility] Start: 08-08-2023 History of Social function [facility] History of Present illness Narrative [...] year (follow up) documented in this encounter [facility] Consultation note 07-18-2021 Note Date [...] to proceed. CC: Dr. Alon Weber [facility] Consultation note 07-18-2021 Note Date [...] like to proceed. CC: Dr. Alon Weber [facility] Signed and Approved by: DR AKASH MARTINEZ . 07/25/2021 08:02:00 [facility] Clinical Note 02-28-2021 Note Date & Type Note Facility 02-28-2021 Note Infectious Disease COVID-19: How to Protect Yourself and Others Know how it spreads ? There is currently no vaccine to prevent coronavirus disease 2019 (COVID-19). ? The best way to prevent illness is to avoid being exposed to this virus. ? The virus is thought to spread mainly from hmovfh-ey-gcxmuw. ? Between people who are in close [...] not readily available, use a hand supervisor solder making that contains at least 60% alcohol. Cover [...] at higher risk of getting very sick.www.cdc.gov/coronavirus/2019-ncov/n lpz-jquez-ggqhpbiobpw/aztrrf-gd-jsfbwh-r isk.html Cover your mouth and nose with [...] clean your hands with a hand supervisor solder making that contains at least 60% alcohol. Clean and disinfect ? Clean AND disinfect frequently touched surfaces daily. This includes tables, doorknobs, light switches, countertops, handles, desks, phones, keyboards, toilets, faucets, and sinks. www.cdc.gov/coronavirus/2019-ncov/preven c-gcoewun-wceq/bigafuobmfxx-auuj-hbpa.ht ml ? If surfaces are dirty, clean [...] 10/06/2019 Document Revised: 12/31/2019 Document Reviewed: 12/31/2019 [employer] Patient Education ? 2019 [employer]. COVID-19 Frequently Asked Questions COVID-19 (coronavirus disease) is an infection that is caused by a large family of viruses. Some viruses cause illness in people and others cause illness in animals like camels, cats, and bats. In some cases, the viruses that cause illness in animals can spread to humans. Where did the coronavirus come from? In May 2019, [place] told the World Health Organization (WHO) of several cases of lung disease (human respiratory illness). These cases were linked to an open seafood and livestock market in the city of [place] [facility]. The link to the seafood and [...] naming World Health Organization (WHO): www.who.int/emergencies/diseases/novel-c oronavirus-2019/technical-guidance/joe moorek-wpn-maiyyuahvin (more content not included)... [facility] History and physical note 05-05-2020 Note Date & Type Note Facility 05-05-2020 Note [id number] #1.00CD:127 [facility] History and physical note 05-02-2020 Note Date & Type Note Facility 05-02-2020 Note [id number] #1.00CD:127 [facility] Evaluation note Note Date & [...] content) DATE CREATED AUTHOR 03/05/2021 [facility] DATE CREATED AUTHOR AUTHOR'S ORGANIZ ATION 04/10/2021 [facility] DATE CREATED AUTHOR AUTHOR'S ORGANIZ ATION 07/02/2022 [facility] DATE CREATED AUTHOR AUTHOR'S ORGANIZ ATION 10/21/2023 [facility] DATE CREATED AUTHOR AUTHOR'S ORGANIZ ATION 01/18/2024 [facility] Reason for Visit (unrecogniz ed section [...] CLINICAL RECORDS. [facility] [employer] [facility]. provides no warranty or guarantee of the accuracy or completeness of information in this document.
--- NOTE | 2024-02-05 12:16 | P.CN_ITS ---
Consult Note: HPI Data of Consult Patient: known to practice within the last 3 years Consult date: 12/23/23 Requesting Physician: Estelita Teran NP Primary Care Provider: Sixto Gomez MD Consult Narrative Reason for consult: low back pain Narrative: 28yof who presents for assessment. continues to note significant axial pain worsened with standing and ambulation. lumbar mri reviewed, which did not show any disc herniations. continues to engage in a series of provider directed home exercises for >6 weeks, without any significant benefit. uses OTC pain meds and NSAIDs as necessary, but does not like taking medications. recently underwent bilateral L4-5 L5-S1 facet medial branch block #1 with >80% improvement in pain and functional ability immediately after and hours following the procedure. cc:: CC: Estelita Teran NP Review of Systems ROS Status of ROS 10 or more systems reviewed and unremark able except as noted in history and below Musculoskeletal Reports: back pain PFSH [facility] Medical History (Updated 01/28/24 @ 14:04 by Cherie Cuevas NP) Pain of joint of left ankle and foot ?M25.572 - Pain in left ankle and joints of left foot (ICD-10) Primary osteoarthritis, left ankle and foot ?M19.072 - Primary osteoarthritis, left ankle and foot (ICD-10) Painful orthopaedic hardware ?T84.84XA - Pain due to internal orthopedic prosthetic devices, implants and grafts, initial encounter (ICD-10) Insomnia ?G47.00 - Insomnia, unspecified (ICD-10) PTSD (post-traumatic stress disorder) ?F43.10 - Post-traumatic stress disorder, unspecified (ICD-10) Panic attacks ?F41.0 - Panic disorder [episodic paroxysmal anxiety] (ICD-10) Depression ?F32.A - Depression, unspecified (ICD-10) Anxiety ?F41.9 - Anxiety disorder, unspecified (ICD-10) COVID-19 ?U07.1 - COVID-19 (ICD-10) Migraine ?G43.909 - Migraine, unspecified, not intractable, without status migrainosus (ICD-10) Endometriosis ?N80.9 - Endometriosis, unspecified (ICD-10) Pelvic pain ?R10.2 - Pelvic and perineal pain (ICD-10) Heart murmur ?R01.1 - Cardiac murmur, unspecified (ICD-10) Hyperthyroidism ?E05.90 - Thyrotoxicosis, unspecified without thyrotoxic crisis or storm (ICD-10) Postoperative nausea and vomiting ?R11.2 - Nausea with vomiting, unspecified (ICD-10) ?Z98.890 - Other specified postprocedural states (ICD-10) Surgical History S/P epidural steroid injection ?Z92.241 - Personal history of systemic steroid therapy (ICD-10) H/O laparoscopy (10/11/23) ?Z98.890 - Other specified postprocedural states (ICD-10) History of cholecystectomy ?Z90.49 - Acquired absence of other specified parts of digestive tract (ICD- 10) History of laparoscopy ?Z98.890 - Other specified postprocedural states (ICD-10) History of section ?Z98.891 - History of uterine scar from previous surgery (ICD-10) History of ankle surgery ?Z98.890 - Other specified postprocedural states (ICD-10) History of ankle surgery ?Z98.890 - Other specified postprocedural states (ICD-10) History of ankle surgery ?Z98.890 - Other specified postprocedural states (ICD-10) Family History Other Family history of breast cancer Family history of hypertension Family history of leukemia Family history of lung cancer Social History Within the past year, how often did you have a drink containing alcohol: monthly or less Smoking status: Never smoker Non-prescribed substance use: denies use 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 Highest level of school completed/degree received: high school graduate Meds Home Medications and Allergies Home Medications ?Medication ?Instructions ?Recorded ?Confirmed ?Type drospirenone 3 mg-ethinyl 1 tab PO DAILY 07/01/23 02/03/24 History estradiol 0.03 mg tablet hydroxyzine pamoate 50 mg capsule 50 mg PO Q6H PRN nausea and 07/01/23 02/03/24 History vomiting venlafaxine 150 mg 150 mg PO DAILY 07/01/23 02/03/24 History capsule,extended release 24 hr valacyclovir 500 mg tablet 500 mg PO Q12H PRN skin breakout 10/02/23 02/03/24 History ibuprofen 800 mg tablet 800 mg PO Q8H PRN pain 14 days #40 10/11/23 02/03/24 Rx tabs prazosin 1 mg capsule 1 mg PO QPM 11/25/23 02/03/24 History Allergies Allergy/AdvReac Type Severity Reaction Status Date / Time Penicillins Allergy Hives Verified 01/28/24 13:43 Sulfa (Sulfonamide Allergy Hives Verified 01/28/24 13:43 Antibiotics) hydrocodone AdvReac Intermediate Hives Verified 01/28/24 13:43 oxycodone AdvReac Intermediate Hives Verified 01/28/24 13:43 Exam Constitutional Documenting provider has reviewed patient's vital signs: yes Common normals: no apparent distress, oriented x3, healthy appearing, alert and well nourished General appearance: cooperative HENGA Common normals: normocephalic, hearing grossly normal bilaterally and moist oral mucous membranes Head and scalp: normocephalic Eye Common normals: PERRL Pupil: PERRL Neck & C-Spine Common normals: full ROM General: normal visual inspection Chest Common normals: inspection of chest normal Respiratory Common normals: normal respiratory effort, no retractions and no use of accessory muscles Back & Pelvis Lumbar spine/lower back: normal to inspection and pain with ROM Other: positive facet loading bilaterally strength 5/5 in BLE, sensation intact BLE pain over L4-S1 facets Extremity Common normals: normal to inspection and full ROM Neuro Common normals: oriented x3, CN's II-XII intact bilaterally, moves all extremities, no focal motor deficits, no sensory deficits noted and deep tendon reflexes 2+ bilaterally Sensorium/orientation: alert Motor exam: strength 5/5 throughout and no movement abnormalities noted Psych Common normals: mental status grossly normal, thought process normal, cooperative, affect normal, speech normal and activity/motor behavior normal Speech: normal speech Thought process: normal thought process Results Additional Findings Additional findings: If on a controlled substance or opioids, I have checked an [place] report on this patient and there are no aberrancies noted in the prescribing history.??If on a controlled substance or opioid a drug screen was completed and reviewed within the last year, and if there has not been a drug screen completed we ordered one today to monitor higher risk, state monitored pain medication use. As part of providing excellent, safe, comprehensive care, the following was completed at our patient's visit: 1. A medication reconciliation and review to ensure accurate knowledge of current/active medications, including asking our patients to inform us about any [id number] medications or herbal remedies/nutritional supplements/alternative remedies. 2. A review to specifically ensure our patients have had annual screening for screening for depression, screening for tobacco use, and screening for unhealthy alcohol use. For concerning screenings had a discussion with the patient, provided patient education, and recommended follow-up with primary care provider when appropriate. If patient noted with a risk of falling, they received education on strength, gait, and balance training to prevent future risk of falling. Assessment and Plan Assessment and Plan (1) Lumbar spondylosis: Plan 28yof who presents for assessment. failed conservative measures, as noted. imaging reviewed, as noted. given symptoms and imaging, prudent to attempt bilateral l4-5, l5-s1 medial branch blocks under fluoroscopic guidance with intention of proceeding to radiofrequency ablation. she is in agreement. meds reviewed, no changes. follow up after procedure.
== END 2024-02-05 11:46 | disposition home or self-care (01) ==
LOC: PM 11:45
PROVIDERS: PCP Family Medicine; Visit Provider Nurse Practitioner
DX: M47.816 Spondylosis without myelopathy or radiculopathy, lumbar region (principal)
CPT/HCPCS: G0463

== ENCOUNTER 2024-02-17 08:10 | Day surgery (SDC) | payer BC, SELFPAY ==
--- OUTSIDE RECORDS SUMMARY | 2024-02-17 08:29 | XMS_ITS | CCD ---
Author Organization [facility] CliniSyma Care Team Providers Care C++ Quant Developer Name Role Phone MICHELLE, DR AKASH Murray Admitting Unavailable MICHELLE, DR AKSAH Murray Attending Unavailable GUS, DR CHI Primary [...] (2 sources) HYDROcodone Drug Allergy 5 [facility] Repository (2 sources) oxyCODONE Drug Allergy 5 [facility] Repository (2 sources) Penicillins Drug allergy (disorder) 5 [facility] Repository (3 sources) Acetaminophen / HYDROcodone Drug Allergy 4 Unknown [facility] (3 sources) HYDROcodone Drug Allergy 4 Hives [facility] Work Phone: (3 sources) ox[facility]ODONE Drug [facility] 4 [facility] ([facility] sources) Penicillin G Drug Allergy 4 [facility] (3 sources) Penicillin G sodium Allergy to substance 4 Rash [facility] (3 sources) Penicillins Drug Allergy 4 [facility] (3 sources) Sulfamethoxazole / Trimethoprim Drug [...] 07-18-2021 Episodic Other aftercare (1 source) Other prison (current) drug therapy; 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] Onset: 09-05-2021 Episodic Other upper respiratory infections (1 source) Acute upper respiratory infection, unspecified; Translations: [ACUTE UP RESPIRATORY INFECTION UNS] Onset: 09-05-2021 Episodic Unclassified (1 source) COUGH, UNSPECIFIED; Translations: [COUGH, UNSPECIFIED] Onset: 09-03-2021 Results Test Name Value Interpretation Reference Range Facility Covid-19 PCR ([facility])on 08-22 SARS-CoV-2 (COVID-19) RNA MARY+probe Ql (Unsp spec) Not detected Normal NOT DETECTED The [facility] Comment on above: Result Comment: This test is not yet approved or cleared by the [place] FDA. When there are no FDA-approved or cleared tests available, and other criteria are met, FDA can make tests available under an emergency access mechanism called an Emergency Use Authorization (EUA). The EUA for this test is supported by the Help Desk Representative of Health and Human Service's (HHS's) [...] SARS-CoV-2. Performed By: #### C [facility] #### [facility] [address] [place] [address] Dr. Karlos Augustin GROUP A STREP CULTUREon 08-22 S. pyogenes Ag Ql (Unsp spec) Culture Observations: NEGATIVE FOR GROUP A STREPTOCOCCUS. Normal [facility] Comment on above: Performed By: #### S ДМИТРИЙ GRASTCX #### [facility] [address] [place] [address] Dr. Karlos Augustin INFLUENZA A AND B AGon 09-03 INFLUANEGH SEE BELOW Normal [facility] Comment on above: Result Comment: Nega tive for Flu A protein angiten. Infection due to Flu A cannot be ruled out. Flu A angiten in the sample may be below the detection limit of the test. Performed By: #### I NFLUAB #### [facility] [address] [place] [address] Dr. Karlos Augustin INFLUBNEGH SEE BELOW Normal [facility] Comment on above: Result Comment: Nega tive for Flu B protein antigen. Infection due to Flu B cannot be ruled out. Flu B antigen in the sample may be below the detection limit of the test. Performed By: #### I NFLUAB #### [facility] [address] [place] [address] Dr. Karlos Augustin INFLUENZA A AG Negative Normal NEGATIVE SEE COMMENT [facility] Comment on above: Performed By: #### I NFLUAB #### [facility] [address] [place] [address] Dr. Karlos Augustin INFLUENZA B AG Negative Normal NEGATIVE SEE COMMENT [facility] Comment on above: Performed By: #### I NFLUAB #### [facility] [address] [place] [address] Dr. Karlos Augustin INTERNAL CONTROLS Within Normal Limits Normal Wi thin Normal Limits [facility] Comment on above: Performed By: #### I NFLUAB #### [facility] [address] [place] [address] Dr. Karlos Augustin STREPT SCREENon 09-03-2021 STREP SCREEN A Negative Normal NEGATIVE The [facility] Comment on above: Performed By: #### S ДМИТРИЙ GRASTCX #### [facility] [address] [place] [address] Dr. Karlos Augustin PREG HCG QUALon 08-01-2021 , QUAL Negative Normal NEGATIVE The [facility] Comment on above: Performed By: #### P REG #### [facility] [address] [address] [address] Karlos Augustin PREG HCG QUALon 07-04-2021 , QUAL Negative Normal NEGATIVE [facility] Comment on above: Performed By: #### P REG #### [facility] [address] [email or web address]2021 CT ABDOMEN AND PELVIS W IV CONTRAST [facility] Department of Radiology [address] [place] [address] Patient Name: RAJIV TOVAR : 1995 Sex: F Age: Race: White Pt. Location: [facility] Patient Status: D Ordered Date: 03/21/2021 4:00:00 PM Completed Date: 04/05/2021 03:49 PM Requesting Provider: ДМИТРИЙ CALLAHAN Attending Provider: ДМИТРИЙ CALLAHAN Report Copy To: ALON WEBER Signs & Symptoms: R10.31 Right lower quadrant pain I10 History: Josefa Is patient on meds for HTN or DM? 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 Per [employer] [place] 80151 Ref#[id number] Med Nec-Passed *SLA Comments: Exam: CT ABDOMEN [...] Electronically signed: Noemy Stanley M.D.. Transcribed by: [email or web address], User Resident: Electronically Signed by: NOEMY STANLEY @ 04/07/2021 01:25 PM Normal The [facility] CHEST 2 [facility] 03-21-2021 [facility] CHEST 2 [facility] Department of Radiology [address] [place] [id number] Patient Name: RAJIV TOVAR : 1995 Sex: F Age: Race: White Pt. Location: [facility] Patient Status: D Ordered Date: 03/21/2021 2:25:00 PM Completed Date: 03/21/2021 02:22 PM Requesting Provider: ДМИТРИЙ CALLAHAN Attending Provider: Report Copy To: Signs & Symptoms: R07.81 Pleurodynia I10 History: Josefa Comments: right ribs pain Exam: [facility] CHEST 2 [facility] CHEST 2 [facility] 03/21/2021 2:22 PM CLINICAL [...] disease Electronically signed: Cyril Olivo. Transcribed by: [email or web address], User Resident: Electronically Signed by: CYRIL OLIVO @ 03/22/2021 02:[address] [facility] Comment on above: Order Comment: right ribs pain Coding Summary.on 03-03-2021 Coding Summary. CD:[id number] G h0bWw+PGhlYWQ+OR2FZJJ fO47kaPCkmP1IT2mFBC8H HCDLSCGQDI3FWT3qbGF9X LcwH2JlggWy VocgrGWlDT44HTp2ZAW7i SkrGLrvdH3hiBJsS5t2Ag IeTN46sX11UXaqIMUvXnJ 3LjZpbjsgbWFy F3fkIwEyiPHjQvw+PHRhY mxlIHdpZHRoPScxMDAlJy NglPyjKA3tTy9vTODyDGW vbGxhcHNlOiBj a7zdMPCxNQitSL1onYitQ 1IsiVQ6GUSte1b3Gv62yI I+JJElRNH0kUyhUXbyt67 3GsEis8bwOIN7 xBLgKHiqKGZ7W82xr3R7G AZyXJPaYAK7lVG5zO2jfL jnwjeaH6BtnDNmThC8UKL 2sNEfkV4wmGne qwlmoI6pPvw+Y64USV4MT NXEZF0RMeq5R1NrVgemmY I+HA92BTMtSS21bSOweQD tu8dfxUg3GcNa FPTkORD9kNnyBRash1JvA ZSpG86yfWYzh9P0UKBdgS jiuLWqOsEsyRH4nM0rJRk kqypnn6hpavjj Anivs0xpbi35lU45Q29kF TaeZHHrUZV4CCFoFKCamL nbve6sbV8rPa6+NFhuq4k tn7gwiAq9HnIu OGPtotRsaMxbZTA4r5LjE d58Q0EghLljz0VpAfn6ui 09tZEpf5R6jVD4FUxfFIX oeH8eNAzdJtM2 VYDtNxWstM17kCGwAJkrE z9vkWvmbDdjPD8fMHMdgn xrCZFmuF1pFVNwcVCuqHa xCO8tYDXzuycm l846PpHvMWE1UCDtkIGeS 5IupW5tNgGoYBXdXWGoP4 YjzZOqVLrcM806IJxcJuE 0PVVptkAsS3Fo JRMxiTnxVdI6a2O2Zt6Hc 5NzayvyTXR2EZfdHFT8Zb RvFnCtPhT7J0OmOno5OKA xpQosVT4sP5Cl OXAwxrbxycyblRZ4CGTeL QJgfV46oIGcRWdnOl6do6 Y2n848OLNnLPQsiS18Bj7 udDogMTBwdCBU cV8qnoaon5vtdptdNzOsI GLjKYa6GIs9MQNhxEoiCr EkFSF6FoK3YHT4jAJdeN6 fvNycaqckiG6j Oyc+V65smE2qRAJ0WFA2l ptcKTAjxdVwPM63UQ49L6 RyPjwvdGFibGU+PGRpdiB exBdhHQ4zEqZi v0eef4LbNPnhG9CqDORkF YluJse0SBOlOHZ8nTQ8tJ 3cPCRcFMhqh1Q3vXV6K0G hmpLbrc5ba0ut RLEnYJpjF95roTKqj5T7W ETevEP1IPLlxCdqRvIzkX 93Oyc+CDHzeSbbb0HdGpq ws8nvc2ctgXv8 RuIbTCMyjiRraZjqIYB4h 4WfVi04Y29nYPejUXPeGM ZnQXQyNLPryAujbs5mpY1 wIi8+PGNvbCB3 oCK7pP8qHKXoGuA3WLdbW 890SgOisVBqYpanw9pet6 gpyOn1GfSwKRIvxoOrdQj gFRZ1s0HwVl58 R36aQYmtDYKqEKCxRMPpK FMteXnefr7qkS2jUh8+PC 6if0vysn03qU67wIB+PHR lQOI6cLhvRMnk WVNjqC3hMIqsRfP8OHUaE gKysN28wVEeGUweEi3ynN dprUlpPJ2lRMNqriexi82 6RoGld8kdQKYd yQCfJVeiUUG7R14gb1I4T KCtFBZfFRG1yJW7pK7xqX lnbjogbGVmdDsgdmVydGl sBJarZJnuU176 IHRvcDsnPlBhdGllbnQgT iYeFAe5O6VrKcb3OWHdlF naGQ6wtWPvKPjfHu6kuPr zbAtdWW1jOUMe oascv728JoUeu6qlBOSej DWrNWvjSLZ1T68dz0O6EG HjOWUnIPP7dCF8kW4yxDw nbjogbGVmdDsg ixGrcPjmOWmdLUmaH210P HRvcDsnPkJpcnRoIERhdG I7XW38CF67fCCny9J1kCM 9Y5PcHPDoqvbj gvwavWX5BOCqXRPjwK47I s3ysSztZw1hEPHzCIZ4CC ZsbTRwZ6YpeK3nIsMxMZO bAXKcL8PgzFEf AYnlT573UYyePzE7YIIqn eFqW8JjWSMdlYtmFpG5l9 E9Ph6JS0X2OE19KJ35iJN xs7T7ySA4B3Fk IPBpyginabvluOY2QFZzT CSpeN38Tu8afYzxGl9vSI CxFAN3ZKOrnPWzV1GvaX1 yOiAjMDAwMDAw V0CxiXYgMJogY029NOxmB xK3GKSckfIlP7ItBBWmxZ drXrV0t1G3Sy6CJAo6KD8 7FB57cWDdt7P6 bBT1H7CkHQEcjymrnsvhx YL0UWYjEMQbjE47Wh1aaJ iaJc2kNYHaCAR5PKKckSZ vQ8KgyW1yCrYt SJThFZClO7CexBWtYQgwF 111UZcvQkJ0IDVmvdWcL2 AtWZDnsFwnXaP4u1X1Zh0 CLIIaHE75HBU0 jBD6HZ04WP52F2BiBwggu GFibGU+PHRhYmxlIHdpZH RoPScxMDAlJyBzdHlsZT0 lLe9aIDWrGJPs mVwptEHlHcRmf5fzLIHfU OysVU6jqLjxZ8PcjJG0SA Pin3a6Kt95N89pB2ThzEL +UJWpeKY1oZV9 sZ1kMnJsYiN6QAlsP309K qPfpGWqRpvcm1yld7xliJ o7WuY1PAAuowDklCqjKFJ 4z5IdIa01J63v IHdpZHRoPSIxNSUiIHZhb Mxymx6fcZ3nJt6+PGNvbC Y9nSS2sN7lOxEmFyZ2NIt xE389DeXneXXc Ihvgo1ljv2fgxTy4OjFkN DCcidWgcSnbYJS8j7ChWm 11A1DsoWckk1SgCoo6vn8 9uDXso9V7cCU0 H9IsZEXbvrktrMIuaYrbG B7xBWAnggqzYCTdrJ5lAY WzR9c6CwEvThQ2JTzhO5T qeeA6RWBnuHGc QKzsGJV3K62kp5I3RIXoG OBpRHX1aBG9eD5lcRmnca ogbGVmdDsgdmVydGljYWw hEXdlV792YOIe pHoiDZRcwF8vCYNwkOFxk PscWR8mHEVqhaijNqZOAH HFEPVCEBiFT6A7J8NePbz 8KDSslMxlGC0o wYTgCJdbNa4qoBufmSgiZ U3jQBLijlmcAMYhkW2jBS IioPEbgEzxHL8pLGPunja rj065MvLvZJG4 CTCczSKwT0MatN2fPqArJ FJeEXOhO1NlrXIpSXddR3 41RLfkNgE7AKCttbRsI0V sLWFsaWduOiB0 k2J0Im5tHJ9lSs4cBLpiZ W39NP11kYAtt6C9sNA2J9 QrQAEyeflvoxywtWA7XAA iKJIfrG16hUCg DBtbVf7ik8Z9a996RDNnX FOzyC57Dk9snUvqGOFevI YSmY7rqsxur2ouwtwmAeT fVLWkGEq8YAh4 SWMiaIwyPcUsRIE9PnO5C MA1gYLoiS7hrUlavaxoqY 9wOyc+OyfbCJDvoiS0V8O yDdc7PBVhyPak WT1ziQGtAXohTb9dxGhuy QnuFY1dPWSrglxvHQPmoN 1nUDGqxOHbjJrsQH5qJSI xlvnxt728IuSi EXY0DSQdrMHlK7DzaJ6xB sIaZQWuVAKjQ3YqpOEnFY ouI525LNtuCwG0TMIgxaS bF0BwZEDhcJew DjM1h5O1Ie3EHC8cyBP5G 3KcJrg5BYCdlQtdND7zoN JdFBdoBn2ptHvrmCsiUO3 wNTBpbjtwYWRk lO8oKPFapQLxmKnmDZ3bD TPpnplsq219QtWaEIF0DN MjcANbK0IndF5qDrXyUGN bPEHgL1FrrOEv KWqtG312VEkySlX1LFQug cXpB0GcRZEryLvqPfL0i5 G6Zv9BhMTwV8MhF5w7Y6H kPjwvdHI+PC90 YKJoGB62gDJcqTGvo5kwn Rr9XhSiLTHhGZK9xIeaMA wii1ZuEZElF43kkXZhg6N 6IGNvbGxhcHNl EcAieJO8rL0vAOzeboabl 0vqrfeyVcrez8sjca34wK 03O37ySKcaDRXiHMJaGYG aBZMaeQszsn2z iD9qDr0+WJCsvNX0gWF5g E1kWlYnKkO5TXlqJ425Oe MylCOnZlvkl7mdz7ztsTt 9IjIwJSIgdmFs yLgaWBO3t6CeEg25K28jY HdpZHRoPSIyMCUiIHZhbG xjvj9etJ9xNm3+QI6cu0b cql63nK81mYF+ NIKyFSM6uYhjAJtoZCOsc G0cPZzbVqE1LSUpRwXydJ 05xXPsGJagDa5eqUgdqXs zNY8iPZVeccjz f878HdCgy5vbKPWwcQZnU CgkRTG7N40ph2B4GYDfUA PgSFS9hZY9mL8owMivmjv gbGVmdDsgdmVy rHzjFTofJDpwX098SWRum EueVpFtkUVxB0kieqFXIY 1lOjwvdGQ+SOHxNPJ9cFf oIQhaTOZufX2l DTZvB8a7JmDyRwJ9NTzgY 3InnnA8VRVilGYmLSRvkW FCvW1avwjbh7kjxwisSlH gTFLcPNj4CYg2 ORCnjBrsBtAiAXI9LtS7X VR4wREamY1agUlximqgyR 9wOyc+RklOOjwvdGQ+PHR fNHH7fCyxMPbi ICOgpY8aUUHyC8g4YqFzH zI7LKmkE5NdynR9QPDjrQ LcDBOidBLBtQ2gvnjlu8k vcjogIzAwMDAw QZi2XVa8DYExiYklJbAtP LN6DdT9EYF2gJZneM4ssG cnvhwsrT6pOfv+TVJOOjw vdGQ+PHRkIHN0 bCmrRLtqLGFwfT5pMLVwK 3g3HcZfObO7ELwwK1Gpli T9AXExdUVnVVPfpCEMoW2 uwexav8olkdvd CfNfBZTiODa2CNx7SXOmx YmuXiJiYWM0CqJ9VCM9wT IntQ7tbGbgsfqxeS7xAal +HCT4XKJ6QF60 QL05Q5PnGfeksBBnnMJ+P HRhYmxlIHdpZHRoPScxMD KhTtNnlEaxPS7uEy3nBAL yLWNvbGxhcHNl OiBj (more content not included)... Normal [facility] Auto Diffon 02-28-2021 Basophils/100 WBC (Bld) 0.4 % Normal 0.0-2.0 [facility] Comment on above: Order Comment: Order Added by Discern Expert. Performed By: #### 2 920503, 5743707, 28545114, 22120510, 75012630, 65895003, 0256373, 9025574, 0550413, 1865368 ####[address] [place] [address] Basophils/Leukocytes Auto (Bld) [Pure # fraction] 0.0 E9/L Normal 0.0-0.2 [facility] Comment on above: Order Comment: Order Added by Discern Expert. Performed By: #### 2 011884, 5524147, 54398187, 23364001, 63949594, 19437716, 0572028, 0265154, 3490660, 0908161 ####[address] [place] [address] Eosinophils/100 WBC (Bld) 0.6 % Normal 0.0-8.0 [facility] Comment on above: Order Comment: Order Added by Discern Expert. Performed By: #### 2 845236, 8467138, 77736402, 17193160, 36017524, 38678512, 2033481, 9853408, 6134961, 3588794 ####[address] [address] Eosinophils/Leukocyt es Auto (Bld) [Pure # fraction] 0.0 E9/L Normal 0.0-0.5 [facility] Comment on above: Order Comment: Order Added by Discern Expert. Performed By: #### 2 502403, 4402132, 09461149, 30254069, 68081817, 62259614, 9427810, 0497280, 8640074, 4236413 ####[address] [address] Lymphocytes/100 WBC (Bld) 7.9 % Low 14.0-50.0 [facility] Comment on above: Order Comment: Order Added by Discern Expert. Performed By: #### 2 885147, 8843882, 18554473, 73362078, 90364483, 20175742, 7201311, 5662268, 2082554, 8965986 ####[address] [place] [address] Lymphocytes/Leukocyt es Auto (Bld) [Pure # fraction] 0.4 E9/L Low 1.0-4.0 [facility] Comment on above: Order Comment: Order Added by Discern Expert. Performed By: #### 2 146081, 7053168, 01728014, 80682544, 32739729, 19971331, 5468571, 6039937, 0095172, 5258472 ####[address] [place] [address] Monocytes/100 WBC (Bld) 5.5 % Normal 4.0-14.0 [facility] Comment on above: Order Comment: Order Added by Discern Expert. Performed By: #### 2 728761, 3672638, 27448216, 54998638, 57566332, 13552791, 9660921, 1990768, 4682084, 2014936 ####[address] [address] Monocytes/Leukocytes Auto (Bld) [Pure # fraction] 0.3 E9/L Normal 0.2-1.0 [facility] Comment on above: Order Comment: Order Added by Discern Expert. Performed By: #### 2 948051, 1936792, 52203430, 00959204, 11224571, 43160091, 1222987, 0713022, 5501437, 2797301 ####[address] [place] [address] Neutrophils/100 WBC (Bld) 85.6 % High 36.0-75.0 [facility] Comment on above: Order Comment: Order Added by Discern Expert. Performed By: #### 2 666818, 5505371, 98485006, 72058403, 18080431, 86450535, 8738446, 1804512, 9345442, 3511573 ####[address] [place] [address] Neutrophils/Leukocyt es Auto (Bld) [Pure # fraction] 4.5 E9/L Normal 2.0-7.5 [facility] Comment on above: Order Comment: Order Added by Discern Expert. Performed By: #### 2 890278, 9607216, 28512795, 72700360, 42043318, 00385054, 0661720, 6486463, 4195423, 1689271 ####[facility] [address] [place] [address] B hCG Qualon 02-28-2021 Beta hCG Ql Negative Normal [facility] Comment on above: Performed By: #### 2 488331, 8697221, 66566041, 53691965, 98606348, 21962351, 3518219, 5741630, 2233886, 4003362 ####[facility] [address] [place] [address] BMPon 02-28-2021 Creatinine [Mass/Vol] 0.7 mg/dL Normal 0.5-1.3 [facility] Comment on above: Performed By: #### 2 879717, 1521345, 48572646, 51562410, 82062465, 02220310, 4911758, 0941763, 7824162, 8125197 ####[facility] [address] [place] [address] Urea nitrogen [Mass/Vol] 9 mg/dL Normal 5-21 [facility] Comment on above: Performed By: #### 2 652442, 6013287, 87602917, 79355491, 96776474, 25379021, 4843412, 6516834, 2302083, 4828371 ####[facility] [address] [place] [address] Urea nitrogen/Creatinine [Mass ratio] 13 No Units Normal 10-20 [facility] Comment on above: Performed By: #### 2 260319, 4740611, 38070799, 41768790, 72056589, 23340643, 5794556, 0215099, 3095514, 0014814 ####[facility] [address] [place] [address] Anion gap [Moles/Vol] 14 mmol/L Normal 6-16 [facility] Comment on above: Performed By: #### 2 486810, 5756718, 15133993, 73230252, 93562555, 86618692, 7571694, 1079469, 0181522, 4433447 ####[facility] [address] [place] [address] Calcium [Mass/Vol] 8.5 mg/dL Low 8.9-11.1 [facility] Comment on above: Performed By: #### 2 521068, 4269499, 89036406, 56152655, 19428837, 55626427, 4515762, 6407452, 5711173, 4951807 ####[facility] [address] [place] [address] Chloride [Moles/Vol] 102 mmol/L Normal 101-111 [facility] Comment on above: Performed By: #### 2 941126, 9421503, 76959248, 68935721, 80220877, 02672142, 4661612, 9174099, 8678237, 2555252 ####[facility] [address] [place] [address] CO2 [Moles/Vol] 21 mmol/L Normal 21-31 [facility] Comment on above: Performed By: #### 2 329881, 9207506, 36145117, 94375604, 24486226, 75500587, 3847138, 8318231, 4246853, 5402983 ####[facility] [address] [place] [address] Glucose [Mass/Vol] 95 mg/dL Normal 55-199 [facility] Comment on above: Result Comment: If t his glucose result represents a fasting glucose, interpretation should refer to the following reference range: 55-99 mg/dL Performed By: #### 2 323849, 3268451, 88220970, 55304198, 48508410, 87409391, 4671743, 9684533, 5224791, 2890211 ####[facility] [address] [place] [address] Potassium [Moles/Vol] 3.6 mmol/L Normal 3.5-5.3 [facility] Comment on above: Performed By: #### 2 423678, 2966296, 40182366, 51586957, 33013618, 78371345, 0522339, 1951585, 3921554, 1686266 ####[facility] [address] [place] [address] Sodium [Moles/Vol] 133 mmol/L Low 135-145 [facility] Comment on above: Performed By: #### 2 112096, 1853083, 28260281, 58587947, 54553627, 07211002, 7770386, 5458860, 0768779, 4413982 ####[facility] [address] [place] [address] CBC w/ Auto Diffon Erythrocyte distribution width (RBC) [Ratio] 12.4 % Normal 10.9-14.2 [facility] Comment on above: Performed By: #### 2 691863, 2749526, 71634259, 21449521, 92091687, 68019184, 8352262, 3960578, 3825007, 4002584 ####[facility] [address] [place] [address] Hematocrit (Bld) [Volume fraction] 38.1 % Normal 34.0-46.0 [facility] Comment on above: Performed By: #### 2 035510, 2326530, 03572496, 22602623, 99812833, 35328246, 7101815, 6197798, 8421286, 7965388 ####[facility] [address] [place] [address] Hemoglobin (Bld) [Mass/Vol] 13.3 g/dL Normal 12.0-16.0 [facility] Comment on above: Performed By: #### 2 023022, 1209795, 82023672, 69581493, 15090039, 79319341, 8991265, 9289503, 8151668, 2488294 ####[address] [address] MCH (RBC) [Entitic mass] 31.7 pg Normal 27.0-34.0 [facility] Comment on above: Performed By: #### 2 547855, 9906531, 02402274, 40995030, 54517723, 78790860, 1048969, 2190695, 1604182, 1183870 ####[address] [address] MCHC (RBC) [Mass/Vol] 35.0 g/dL Normal 31.4-36.0 [facility] Comment on above: Performed By: #### 2 165645, 1895859, 28667618, 50485431, 41728739, 15275087, 8992174, 2860821, 7950544, 5896161 ####[address] [address] MCV (RBC) [Entitic vol] 90.8 fL Normal 80.0-100.0 [facility] Comment on above: Performed By: #### 2 230778, 0953725, 66910991, 15093181, 75375970, 54738941, 6694385, 2870073, 4769549, 8654708 ####[address] [address] Platelet mean volume (Bld) [Entitic vol] 10.0 fL Normal 6.4-10.8 [facility] Comment on above: Performed By: #### 2 394177, 3816424, 29853317, 32638150, 20267738, 52789664, 5501665, 3938137, 2386916, 5231296 ####[address] [address] Platelets (Bld) [#/Vol] 144.0 E9/L Low 150.0-500.0 [facility] Comment on above: Performed By: #### 2 305157, 7660060, 88783460, 24492226, 55033424, 12532431, 1491924, 2711277, 1089652, 0523940 ####[facility] [address] [place] [address] RBC (Bld) [#/Vol] 4.2 E12/L Low 4.3-5.9 [facility] Comment on above: Performed By: #### 2 754681, 2512047, 34712458, 30229834, 29159927, 73205200, 7455148, 0748481, 9824752, 1941688 ####[facility] [address] [place] [address] WBC corrected for nucl RBC Auto (Bld) [#/Vol] 5.3 E9/L Normal 4.0-11.0 [facility] Comment on above: Performed By: #### 2 034672, 6590458, 36205964, 33242562, 71626113, 30645406, 9079642, 4930663, 3195368, 7861086 ####[id number] [place] [address] COVID-19 ([facility])on 02-28-2021 SARS-CoV-2 (COVID-19) RNA MARY+probe Ql (Unsp spec) Not detected Normal Not Detected [facility] Comment on above: Result Comment: This test result should be correlated with clinical presentations and medical history by a healthcare provider to determine its clinical significance. This assay was performed by a reverse transcriptase real-time polymerase chain reaction (rt PCR) method on the [employer] system. This test has been authorized only [...] or revoked sooner. Performed By: #### 2 [id number] #### [facility] [address] [place] [address] SARS-CoV-2 (COVID-19) RNA MARY+probe Ql (Unsp spec) Pass Normal Pass [facility] Comment on above: Performed By: #### 2 [id number] #### [facility] [address] [place] [address] Specimen source Nom (Unsp spec) Nasal Normal [facility] Comment on above: Performed By: #### 2 [id number] #### [facility] [address] [place] [address] Employed in Healthcare NO Normal [facility] Comment on above: Performed By: #### 2 [id number] #### [facility] [address] [place] [address] First Test Unknown Normal [facility] Comment on above: Performed By: #### 2 [id number] #### [facility] [address] [place] [address] Hospitalized? NO Normal [facility] Comment on above: Performed By: #### 2 [id number] #### [facility] [address] [place] [address] ICU NO [facility] Comment on above: Performed By: #### 2 [id number] #### [facility] [address] [place] [address] ? NO Normal [facility] Comment on above: Performed By: #### 2 [id number] #### [facility] [address] [place] [address] Resides in a Congregate Care Setting NO Normal [facility] Comment on above: Performed By: #### 2 [id number] #### [facility] [address] [place] [address] Symptomatic as defined by CDC YES Normal [facility] Comment on above: Performed By: #### 2 [id number] #### [facility] [address] [place] [address] Consent for Treatmenton Consent for Treatment [id number]#1 .00CD:[address] [facility] D-Dimeron 02-28-2021 Fibrin D-dimer FEU (PPP) [Mass/Vol] 388 [id number] Normal 215-500 [facility] Comment on above: Result [...] infections Liver cirrhosis Performed By: #### 2 709924, 3358605, 99701637, 18670099, 13374883, 72989753, 0469211, 2023332, 5407099, 3180614 ####[facility] [address] [place] [address] Discharge Instructionson Discharge Instructions [id number]# 1.00CD:[address] [facility] ED Clinical Summaryon 2020 ED Clinical Summary [address] [address] ED Clinical Summary Person Information Name: RAJIV TOVAR/[facility] Age: 25 Years : 1995 Sex: Female Language: Czech PCP: Alon Weber MD Marital Status: Single [...] 02/28/2021 11:17:01 02/28/2021 11:17:01 02/28/2021 11:17:01 ADDRESS: [address] [place] [id number] [facility] DOC NOTES: MEDICAL INFORMATION: Prescriptions Given: [...] Follow up: With: Address: When: Alon Tatelenin [facility] [facility], [place] [address] Business (1) In 3 days DIAGNOSIS: Chest pain; Viral URI Normal [facility] ED Note-Physicianon 02-29-20 ED [...] hCG Qual CBC w/ Auto Diff COVID-19 ([facility]) D-Dimer ECG 12 Lead Adult ED Cardiac [...] Information Alon Weber In 3 days [address] [facility] [place] [address] [place] [address]- Business (1) Additional Instructions: Patient Education COVID-19: How to Protect Yourself and Others - [facility] COVID-19 Frequently Asked Questions Upper Respiratory Infection, [...] Use, 01/30 (more content not included)... Normal [facility] Comment on above: Result Comment: Elec tronically Signed By: Laureano Phillip DO\.br\Date and Time Signed: 02/28/21 11:03 EDT ED Patient Summaryon 021 ED Patient Summary [address] [address] Patient Discharge Instructions Person Information Name: RAJIV TOVAR Age: 25 Years Arrival Date: 02/28/2021 09:10:34 Discharge Diagnosis: Chest pain; Viral URI Primary Care Physician: Alon Weber MD Provider Information Primary Provider: Laureano Phillip DO Advanced Director Of Oncology:None The exam and treatment you received in the Emergency Department were for an urgent problem and are not intended as complete care. It is important that you follow up with a doctor, nurse practitioner, or physician?s curriculum assistant for ongoing care. If your symptoms [...] Follow-up Instructions: With: Address: When: Alon Gus [address] [place] [address], [place] [address] Business (1) In 3 days [...] opioids can be used to help relieve rkkitpqd-kb-hqyusk pain and are often prescribed following a [...] be struggling with addiction, tell your health animal care assistant and ask for guidance or (more content not included)... Normal [facility] Hep Func Panelon 02-28-2021 ALP [Catalytic activity/Vol] 52 Int._Unit/L Normal 21-98 [facility] Comment on above: Performed By: #### 2 009477, 5802027, 06558458, 74665532, 45598957, 99257551, 6988860, 6458805, 0130242, 7079447 ####[facility] [address] [place] [address] Albumin [Mass/Vol] 4.2 g/dL Normal 3.3-5.0 [facility] Comment on above: Performed By: #### 2 818411, 3651507, 93515189, 44269852, 81901545, 21388306, 0680171, 4205413, 8276433, 7400140 ####[facility] [address] [place] [address] Albumin/Globulin (S) [Mass conc ratio] 1.4 Normal 1.1-2.2 [facility] Comment on above: Performed By: #### 2 894518, 8533764, 97065997, 96161578, 29989560, 30791376, 0980399, 9696299, 3337821, 9160028 ####[address] [place] [address] ALT No additional P-5'-P [Catalytic activity/Vol] 48 Int._Unit/L High 6-46 [facility] Comment on above: Performed By: #### 2 632969, 7981827, 36330557, 42791650, 47375414, 40910867, 3272180, 9270989, 5840867, 8374984 ####[address] [place] [address]57 AST [Catalytic activity/Vol] 39 Int._Unit/L Normal 5-43 [facility] Comment on above: Performed By: #### 2 147601, 3190740, 48187025, 08251862, 17257893, 45752444, 0355433, 9869249, 7353226, 0914960 ####[address] [address] Bilirubin [Mass/Vol] 1.2 mg/dL High 0.0-1.1 [facility] Comment on above: Performed By: #### 2 723578, 8256631, 57739453, 19986933, 37002342, 00396096, 9181192, 5734382, 2786224, 0866357 ####[address] [place] [address] Bilirubin.direct [Mass/Vol] 0.2 mg/dL Normal 0.1-0.4 [facility] Comment on above: Performed By: #### 2 379104, 6577389, 06815212, 82249658, 26189771, 40494997, 8446762, 7102313, 5837666, 2526989 ####[address] [address] Bilirubin.indirect [Mass or moles/Vol] 1.0 mg/dL High 0.1-0.9 [facility] Comment on above: Performed By: #### 2 306187, 1940056, 59059782, 64490176, 63542517, 00583415, 2929476, 5046721, 6856347, 4181552 ####[facility] [address] [place] [address] Globulin (S) [Mass/Vol] 2.9 g/dL Normal 1.4-4.0 [facility] Comment on above: Performed By: #### 2 751022, 4184390, 34097699, 78860630, 96774335, 56119054, 7616556, 8285552, 0423882, 1598232 ####[facility] [address] [place] [address] Protein [Mass/Vol] 7.1 g/dL Normal 6.0-7.8 [facility] Comment on above: Performed By: #### 2 271955, 2042260, 15573673, 20818744, 26346287, 12838984, 2542628, 9321478, 4957519, 7014726 ####[facility] [address] [place] [address] Lipase Levelon 02-28-2021 Lipase [Catalytic activity/Vol] 33 U/L Normal 13-58 [facility] Comment on above: Performed By: #### 2 838206, 7496878, 25711756, 89112210, 29150630, 95529606, 2484018, 3270304, 6098396, 5625434 ####[facility] [address] [place] [address] PT & PTTon 02-28-2021 aPTT Coag (PPP) [Time] 31.5 second(s) Normal 25.1-36.5 [facility] Comment on above: Result Comment: Hepa rin therapeutic range (represented by Anti-Factor Xa activity of 0.2 - 0.4 U/mL) corresponds to PTT of 56.6 - 109.0 sec. Performed By: #### 2 624446, 7192528, 40542645, 99578144, 19051253, 83334004, 9534854, 7485674, 4352377, 7176518 ####[facility] [address] [place] [address] INR Coag (PPP) [Relative time] 1.1 {INR} Invalid Interpretation Code [facility] Comment on above: Result Comment: INR results are specifically intended to assess patients stabilized on long-term Anticoagulation therapy suggested INR?s ?Less Intensive Anticoagulation? 2.0 ? 3.0 Conventional Range 3.0 ? 4.5 Performed By: #### 2 894283, 4578747, 45489048, 95919355, 43726270, 43247899, 7296730, 9980401, 9869733, 8304923 ####[facility] [address] [place] [address] PT Coag (PPP) [Time] 13.1 second(s) High 10.2-12.9 [facility] Comment on above: Performed By: #### 2 191269, 1739687, 34854423, 73880939, 86460160, 17481903, 6024393, 3928066, 2408544, 5214547 ####[facility] [address] [place] [address] Prescriptions/Work Noteson 0 02-28-2021 Prescriptions/Work Notes [id number]# 1.00CD:[address] [facility] Troponin 0 Hr.on 02-28-2021 Troponin I.cardiac [Mass/Vol] ng/mL Low 10.10-27.10 [facility] Comment on above: Result Comment: The 95% CI (Confidence Interval) PPV (Positive Predictive Value) for myocardial infarction in females is 38 pg/mL, in males 51 pg/mL. The results should be used in conjunction with clinical conditions of myocardial infarction. (Access High Sensitivity Troponin I Instructions For Use, Yenifer Rifton, January 2018) Performed By: #### 2 065412, 4919464, 71446043, 35678210, 94966883, 62180811, 2059536, 9383230, 8319077, 9593400 ####[facility] [address] [place] [address] XR Chest Single Viewon 02-28 XR Chest [...] MD Transcribed by: OLGA Technologist: YONG Kaplan [facility] eGFRon 02-28-2021 GFR/1.73 sq M.predicted among blacks MDRD (S/P/Bld) [Vol rate/Area] mL/min/{1.73_m2} Normal >=59 [facility] Comment on above: Order Comment: Order added by Discern Expert. Result Comment: eGFR is race adjusted. AA=. Performed By: #### 2 680923, 2894593, 45137154, 08433003, 60216057, 26295587, 6138500, 8714815, 4020359, 4265439 ####[facility] [address] [place] [address] GFR/1.73 sq M.predicted among non-blacks MDRD (S/P/Bld) [Vol rate/Area] mL/min/{1.73_m2} Normal >=59 [facility] Comment on above: Order Comment: Order added by Discern Expert. Result Comment: Hoseman bib kidney disease could be indicated at eGFR's of less than 60 mL/min/1.73m2. Kidney failure is indicated at less than 15 mL/min/1.73m2. Performed By: #### 2 378454, 0887289, 05691965, 02192597, 02845803, 92494426, 6155518, 8124449, 0068135, 6437840 ####[facility] [address] [place] [address] C Urineon 02-01-2021 Bacteria identified Cx Nom [...] Locations R1: This test was performed at: [facility], [address] [place] [address], [address] , , [facility] Comment on above: Performed By: #### 1 6277419, 5048943 ####[facility] [address] [place] [address] Coding Summary.on 02-01-2021 Coding Summary. CD:[id number]:[id number] G h0bWw+PGhlYWQ+US9PBUX uI27euZCbrS3PD1aUKL0D RFEVACPHCZ2YDQ9loFQ6N IsmZ5KvcdEg MqxraPNdGL45MQs6LOZ5n XwbVIjrqV0beCUsJ9b7Xn NfBD07qK05NCucELHfAvY 3LjZpbjsgbWFy X5ubSpSwlTDgOlj+PHRhY mxlIHdpZHRoPScxMDAlJy QrgHbdMF6mWl6zEJEtMZX vbGxhcHNlOiBj b0yoCWZgKDaqVU1goRgjZ 6MzmMH7KGQwc8u3Qi29vH I+TVXxPQS8oLgsKCgaz29 2UqDye7frJXD7 mLHoFJjkYAQ9C09is8I5Y YVlWLOtALI4kTG0eP2etD iodreqQ5SumSJcWfQ5QAQ 8aMSrvK1pcIso enbgwL8jVmf+J45ALG4RC GOFOZ7AAta0B6QfXrvmlU I+FK66VHDgMC83gFUkvLQ tc4smoAa3HrBp JSBgZSG3mXscDUqai4OkS RHgR08wyVGxx4S1LMWpbK bgjLTbExFjiNN8vP9dAQw hynwdq5cvznpw Ljrcp0bgpo41eA42F47xA DmgQPQvZAW9DWDrXDXajQ mapu6irU6mSh2+PYszb0k ka1pntHk0LiEv LJHdfgVbiNguYNF5q2ZeI j20X6PvoJbxq3XpEnm1ri 57tJMsx2B1pMW5FXefAVZ diX2jWOdhBsV5 GVDnLyHrzL80tJGaREjrP v9imNplqIkkBZ7mCPDdoz tcYBBkeF1oHDYcbENreQe gTL3iFQIhhcsm x330RlRyMPF0PFTejFLbV 4YlbN5aDuYtAGDcSLIjY7 KcxEVnCFgtW668AHcfRqC 1ZTBvydEcV2Cw RNYssCfyTvG4l2U7Mz5Gn 1TnukkhHVN6TNbcYSX5Zr MfVfUqBxG6Y0YqBmk7KGP jqKueEQ2xG9Bm OPRxlrtzqrlquFY6GXTzH QLkfG83nJZtYMxyFs5dt1 B1h303FJMuYQJqnR12Hb1 udDogMTBwdCBU iY0izaghq1srbqxqFzDvP URiKZg8HHy5FPCdfWboPh IhDJV0BpZ0QPR3pFXmnR6 yfRgmqkacjY6c Oyc+I63roJ7dAFD7ZMU4r xgcNLTefrKyBR90BY43Z9 RyPjwvdGFibGU+PGRpdiB rmUttAM0pXxMg o0opl2JoDLsvV7EhRZXuU MmsAlr8RVVaSRS0rOT5oL 0tLOYtWDwab5R6bZJ7E9R dshLnrp3zh2pz XGLzZLzmF73knTHgj9Z6G FEfkDP2SRJueRsmSyGwyL 93Oyc+NEXbzScgz8XjBiy bm2gvc7hrzVt0 EzLmPEKrsqLxmZtoAXG1c 2IhOh35X81gUMzaBBWzHI YzXJEsSUZxwGepaj4krQ9 wIi8+PGNvbCB3 zVE8dH0pFHDuAcK4YXesR 215ArXfjSTvDosqf1vxh9 wayFt7LkTtSOUqzrLuqUv vOJX7k0OjRm84 G93mLYwzDNYgEEFuDLYoV LOjvFssvj7tfJ1zYn4+PC 4yt0zmuq58eD17ePH+PHR qIVS8cRoaPLrd NUXouZ4wEBumLyS5YXCeR mDcyE39bCKuOQdaZc6dmG emuIzqJG8oTLPslkyws27 1LwFxi7nkXDRv qIQfRKlzIJS6B04ey0F0C CVzDAHnXRL2xUL4gR6fjT lnbjogbGVmdDsgdmVydGl kGJihMAzfO829 IHRvcDsnPlBhdGllbnQgT tAzZBp9V5QoBfa5OFQehZ qaTG6ygABkBLciZu0zeKq mvXhiGD4lFVDc hmsij306XuEot7pdUBXxh IOoWFioWSG2B87mk6D5JZ GdPLUgWKZ2rMW3wD8bwLk nbjogbGVmdDsg ffPbvUqeOEwqGUyhW326V HRvcDsnPkJpcnRoIERhdG C2KN87XC20wENnv4J0pWW 9V2AaVUKjxzle bkaqaRG5FXEfLRRazU50Q q5eqHewAc8gHTEhNJJ8TK JjiBHiA0GyaL1cLxNlUJS fYCOnS4AhpTEg LPvmI565QXowOnI3SWWsz yRsO1DxURYkmSgbPzM4o7 J0Jd3AU7L2NO05PM89aYR vm9N3tRG3K6Tr SCLuxpojiwovcBU6ISAgX GIorC62Kl4tlRfkFw3gIS QiPVC8WPHliZOgD0XjeC6 yOiAjMDAwMDAw H5GzmOMmRKtaS392CCyhS xR6QYIvxoBqQ2HhGBHxvP lkGvF9x4X5Mw3DBJj4WT2 5UA88zVUgq9Z8 oYP2B8TyKJTseajabkunx YF3SNFqRGQksP58Ai0sfG ibQl3oUWWvWTS9YEEmaHD yM9QmaE3eClHb VJWtWHVwA8HpwJQfNIixC 917RWpmCrK4RSRvbsVjH3 XqGUTowCyiJqZ2v8I6Vt7 GFURrMT30UEN1 fVV7TU97GW00Y7RmFhvix GFibGU+PHRhYmxlIHdpZH RoPScxMDAlJyBzdHlsZT0 pCk5wBLWqQIAc aWzqzUVqNbKbg2lkOZAoP YqbBZ8mlObnY9EupCR3GR Umi9t5Ow45V06jH6UxmQH +FAGkrMJ4fOT8 oQ1nCsSxXyL2XKddH611U xFcyVKuCviph6qlw6oraF l3CwF3DTPblpVroOzlDJP 0t4XfGk17J91v IHdpZHRoPSIxNSUiIHZhb Cbpqu2yyW3zYj0+PGNvbC F8qFP5cS5uUtWqZvZ4VZi vD320DuTvgBTj Vlccf0lnu2jyzMs7ZeXzQ DWfvuNsnWjqNCQ4d0GnUi 55F4TmoEpfq8FcUwg3jk5 4oYQqf9O2wGS9 T7CaBUQowmdisGZggIalM C4bEKOdncjeZBJfwE1fBS FxK3v5IpYsKmQ3BJncM2M yifV2PNHlcLWu FRfjMDA5A71ai7K4SSAaN WSeORD6vAE8xE0fdRghcx ogbGVmdDsgdmVydGljYWw oQJfyN479KJHc mHktXPQiuX8vCHGdpNDxi FxbKO9uATJijiapJtTDGT UOWVVURRdCK9W6L6OvRwu 5YPHknBlwXZ2h cUZxHTgkZp5smUvuhRtyU J8qKMNnbtgoQSWcuM9fIJ QgnYTveGxxUI5hDPIgxil jx600CtKeHIC1 XUTjjRFhB7DyoM9oEbSuA FLhATAcL0PcfDQrWBtqF7 41DBclCmP0OUDiloNbK9H sLWFsaWduOiB0 t1U6Dx0aZT7yVr8sJCbaG Q09EC00nSYma5N1qQV6O9 TqXIJdpnbtqgpveHE3WGM sWHKoaD26vYCr GIqnHy1vz3E6g252WVBnH GTmbJ13Qc9bbBvpZFSokP ZKtQ2tezdan6cdofqhUrL wADSmZEv8PJu5 HSFiqLoxBpYoOAS1GjA1C SG0vMKcoL9mmHkjnwkvxG 9wOyc+JpevTQElumN7H8L mIfg7XQVwpUsq EO0vcYMoHDecVn7nkJpkv DaaIN8cULRaspgzIABgqU 1lWLZdlQQhhCroYO2eLPP hrtgmu168BaDs MYT8NKFshCRnV9IllA6zY dQuITAkEACnP5AkmFPoCF ftQ457FXicYyT3WCRsvjZ aF4CnUQUdjDyv YlR7b1Z7Xf9HGO2maSR5X 8PvTmd8CBTkkNhiOP9bnU RyBDrgBo2doSzdsYfxBS8 wNTBpbjtwYWRk jT2sLELwxKUteCibVW3uP NVhluckg600WcSlKAL6FU UcfCGgL7LvmH4hKyIpAWA pPFSuH4JspXUx LNnsN381HNmzVsR0HZCbe mPxL4DvIWOwqTqfCoY2j7 N0Rp0TtVUpX3KgE6p7B0X kPjwvdHI+PC90 YFPqHE91dJPmqCGan7edy Lr0JjMbQAAcDAP4mFkeRF mdz0RuWOAmJ10cdFXjw1N 6IGNvbGxhcHNl FkQbeUT9aX0vQWpnktljd 4qffqrdAigvr2qarc31oQ 39I12zDUhtHXSbYTYdRMA wLLVygKdckp8i uZ8sLm5+XWMyrIY5mKD0t A8aQrOrTqI4AWddV165Hh ScjAVhZmrjz0sjp3yxiTy 9IjIwJSIgdmFs xTmdHVH3k5XmVy92V50iB HdpZHRoPSIyMCUiIHZhbG pneo7ifX1pDb4+BA4fm5c rph37cM23uHQ+ OTNoXOZ5bBulTRwvZTUci Q5hUOxuQuD1NCDjVbXboN 62dSVtYPtkWl1erVoymVx aUF9tEHCnxdwx v926KoBks7neZPUpfOKxA XjoCYY5B72nz1J3FRUkSD IbEYY6gBK0rP7naMofkwe gbGVmdDsgdmVy uJgnGQlgFEflA028SBQxn BxjEwJayITeW1snvxVCQR 1lOjwvdGQ+GOHvMLJ5pVu kXIxwALVqxB2z RBByB7e4LrMdWmE3VVvpN 1YccuM0RMHiuOIeQJIwlF NWgV8ngmvwu1dhwiijOvZ fKJIaJXf8RGf2 IKHfmUbhNyRhCSY9NdW7B QR5jOBprW3zqIrvvrwjxM 9wOyc+RklOOjwvdGQ+PHR pHOI2rAsmMTgb XEEzzY9xCFCnR6p9RnZtT iH9XZhhG9KkotL7LRXuwA GfPGOllXREvD4eibotb6t vcjogIzAwMDAw BMb6VLf4PIMuzBttVaCuV LJ8OjW8XCA3pSRzcS8eaA yxkrjzjW0mQbs+TVJOOjw vdGQ+PHRkIHN0 jMfnXIhpOXTejD9qJXMtZ 8r8WpEiIzO1DDpfU4Kwdj O6LNWybLKlQQUssIDDkA4 vzifhl7lhpuoh AoXqBWZjWSs3IIu5LAFbj DckMyEoGTF7KuY6DMX2eQ ZszP3opLbcpyzooG3rHwm +BQV6YXA7TW73 NM06G6OcTzxqnABjzXK+P HRhYmxlIHdpZHRoPScxMD YwEeVfyFogUK1wOo1cRPA yLWNvbGxhcHNl OiBj (more content not included)... Normal [facility] B hCG Qualon 01-31-2021 Beta hCG Ql Negative Normal [facility] Comment on above: Performed By: #### 2 702778, 4156593, 4593952, 15402390, 1132075, 35852235, 7347980 ####[address] [place] [address] Discharge Instructionson Discharge Instructions [id number]# 1.00CD:[address] [facility] ED Clinical Summaryon 2020 ED Clinical Summary [address] [address] ED Clinical Summary Person Information [facility] Age[facility] 25 Years : 1995 Sex: Female Language: Czech PCP: Alon Weber MD Marital Status: Single [...] 01/30/2021 23:43:48 01/30/2021 23:43:48 01/30/2021 23:43:48 ADDRESS: [address] [place] [phone] PHYS DOC NOTES: MEDICAL INFORMATION: Prescriptions Given: New Medications [id number], [address], [place] [id number], [phone] cephalexin (Keflex 500 mg Cap) 1 Capsules [...] Follow up: With: Address: When: Alon Weber [address] [place] [address], [facility] [place] [address] Business (1) In 3 days 02/02/2021 DIAGNOSIS: Acute UTI Normal [facility] ED Note-Physicianon 02-01-20 ED Note-Physician CD:[id number]:[id number] 2 5KX76wZtiqtJar4oomf8n KU9aJeAwxvRmJCgjXq4qi 5pjUX13zb4mSzDnYs0+Cj qnYP6PHKvIMAXk rQ3gVZDLTpyAUmVdOP6nC qLCLm0LYREdGFmRFVboKD 4tHSZ1vjpdaF9pXE2eXZP jfCAaOd3ht6z9 ZzwxWj6xEh1PJi88pZZlo YUqKRWPF4teqL3rYV3buD HhS0BgPNEuAg0LADe5zZa asQ6zjhL5Vau2 oLH8Ia86n6byrrSgx5VuF yH5RBjwhRh3aPxaMErkbA 5kLcOkQUDAkB3rwEsjMJ8 moO6olqBpaNge biI+OhrxYNMgHku7lBBgL N50F7XamIokHto6cUC0ZW JeyUQpQMDeuIv3BKEGBUU BLUNvbXBhdGli tDSaGRPuxoDegmO8LbuKT ADhDoIdIgl7L7dkVTU+Cj nmd8D2Sck3AOp9SKI0mGv nFOZvv744RJFo dMtgjHeqmMAea17sTRDkq IVyImMsq235ITBdnhR2AZ lpiWfpNot5iFEluCLdw5v ivSm7TdLqBBEg TlbHQLSkhZsjh4PcKnuTL Qyks1evgsZvqPjrHLA2o1 PeJDgcFYVeWXZ1FkStWB0 +CgkJPGNvbCB2 XRbhE964FkPooTDpz4cod Sv6CaW9UGHgXz0ZLXtkQ1 1mH0NtfYN+Lqn5wGIdHTx +CgkJPHRyPgoJ KFr9iMGsa1R4lIZ5BvFgb gCwz1k7NAvsDJZ0GtC5VA A1oFHmpL5ruPqzgpkhwH8 wOyI+CgkJCTxk xPOjL0nfd5K0WwVpi9Cur SofegEeKDPbWaCvt8fqIn igYSBssV6uPBM9EkHaBMN leHQiIGlkPSJf CoXmERDlWkEfJOZeJs92P zQuNEx7SCtgCgwdSDE0Wu BbNpRePcTrcMqqXV2kjXY kZGluZzogNHB4 OyI+LYHeBC7rT5rqs3W3Z gIjz1FpwTceivJfj3QaOB krYeprsFOgZHD9pQckZDV bz488OIjqbZjo hQkeHy8oUEkfsDZ2sN7nL DDhndH0uU9gLhR8siZffe sbqiZ5De9YGKOgLyEHruD xvs9hqHwbcfms c5Ckqi45C5OrHC1+CgkJC AduyYMwB9rxl2I8NuRhe9 Kmt92ryyG1XT8yxNZ1LDV mNYOdJhAkd7vt YmxlIGRkZnJlZXRleHQiI UZlIlT5trUnd3E8jR5dx8 N9pRN9KjHjnS6ndXatcCS uYGI0dQJilCqn wRZpK1nwCULDF7cqH43TK DOWAQUTVPZmDRd5ARonKg QiIGlkPSJfYTMyMjFhZGU jDDCdXQ29FtMk YYDmZUBcZvS3YYNhKuM9P JQ4Ad97d1HublJliJlwPC 5ziVDcI3rgZhVvqXEzOJt wPxKjOOTnpE6a HwRsyKG1MWWqsHRwINikI 161CMvoXhE3ATJdlX1vJs EzO1ScSKowJKstPNu1ITV bvjYjw3C5uMQ0 XF6gfx3ilCzyHf5fzW86B YacjHU6ED9ord2toQylcA W4jK7bVWKaarC9dJ9iYfP pj44yYpM+JiN4 LSE4Oz9laRGoaNawbZjuO vGaCNSpVNO9AXtpZDFlDP 5oF5xhBUb0A4OmRL6+PGJ yIC8+CgkJCSYj uCQjCjvlYCm5QlnMRMxHK XOuhhXuaQAsbu5oINJsmi DbmUT5zQTqEKQbtP64SEI yYTKzKZL2JgTh ZfudUPGxwdfupKpoMT3jj Y1cWRQlV4k1FxFaWA3iSu jrIuT4QLosFFr1CGcxDJq vQO85XMx4IXYf WJE8BoIuScTuSjIxy4V9s MK2LpNjy5BrUDy3AP7uii H7Hh71M0Lcpa7IGSpXWE1 kaXY+CgoJCQk8 VIn6UZQuJMWiSFDjGYXiE 0Wjv66uHLGgADLgONUdXQ LiXWJsZRcip9DwbPGkKGH 0SVn8PKQoizUk e0FzAxddSuQrTRhgPTJ0o Z0tB65tQN5rAU4BXmVzPM FgWHIyTsFfxMQ1Qv24UoN 7TAI5LC61VfVx YPH7RPrjRYy8Pg8mZTYuX zDcMAL7LKsvCCA6sDfsUR QqWHZxsD8lPwI3uPs2Ot4 4l1JpeuJnjXTp mh8mAIYbHZP7kA3xUFwnl GxheSI+EFSwDF4vs9R0iG E2QrBtzgFjr3FrK7c1NvZ xs8toQoC8XFz1 FBCkY17rHYSxn335FASjP GVybGluZTsiPkNoaWVmIE OgkMMrRAfrhHxsk6Dmys4 0G8TuOS9+CgoJ RBw3HAr0EUUbDWTkQPXlZ GVtcmNvbnRlbnQiIGRkOm NanhLyfjG4xIVmGPUUDXT ZNDBAP63CLGFw EAEeNgLzKtObNL2dWMW0d US0XlEIPgUgQDt5KYQoDM PkQPJXEy5PAENfNOTWKHQ VLNZ7HJJLZSTb aNK7Cd70VwNyPevePi8wP CGdXMLjAdTbZldnBo9jOU m3LELdVJsoEgBvFwrDMTn 3XHh8CBZoRMEg PSJkZGVtcmNvbnRlbnRpd WZjKHNvbpYmv4LeCkjsVt ZaUYodo757LB65mXgdDO0 wRHKXW1MUYZ5I RUFTIiBkZDplbnRpdHlpZ F3kQIn9EJP9SQHwCuBnqS K0Xy2mCBQoJunwKu1oUCT hLTRkMWMtYjNl Vk97OIM1PNj4YES3RmpdL UblnG5oWdIkLJENfY9qmT fpAK5pgD4jozAqjVnbqgS +cHQgYXJyaXZl wxZli7UxilrlmITag2lfB MMrWGPeKJHbtH6yzSpwpQ PsmCYmaGLjzH3jpSdsCQZ wHZ5vLEEvPT9p A65zkcT6tcB1aEOddvljx WGlWQH9PWxmELXcxEtmGM JeSRKwOTOoxdWrx9BoZBm aYL8eAPktlxAb hLZsMpJujkIlqS7jVRT5f 4EmMcpnQCq4HzyXVAt8G6 Megv9IOAlCLL8wiMA+Cgo DWNl9CEq8UHCs LSGiPOJmMLWeE9Rve68eG GRyZWZyZXNoYWJsZSBkZG gqy5JmcPZcHOG5BWq8XIN ragPse7SvHhip ZuLmWGdkIDU2eO9hL66bF S9xDO2PIcEdGZAiJmWaZl NiuQW3Md2rP7WbROO0LP3 lOjQzYTL5OnNi RBb3Vy1tFXS6IvO1FXzkZ ILxMQT7nJfyDCHhFNXtkO 3mHfZ7vTq1Yx11m3UtdqV uzKZuwr0fIHXy CMR9iX5jQNydmYpepLK+P XFbSH0cs2M5yZI2DeRsoc Rux9ItC9k0NdAct4lhUjN 9TMb3TGQoB68b BLXzp537CPGcVBZbrWzuU RqnUhpla7Xrnzisd0NaPC Qnm2XwlDKViXvwTMImAG8 zsRHeEipva7Ys mh6VAyqEYTbvnQQaY4loq 6Y7FkZjHE1eD22enKEcfU JbRAR5L85lQ9AqqA3lROF NJmBjBKcrg836 UY05sAzlOQ5vBJ9TR7IIQ OPeTGZmOhYbTyMuSK1wMT G4lUX5NuScRcToRcX1IEO 7NLDnMQFRAx97 IysQJPVUBqC8I9E0H1L0Z AYekIH3Dz5fUYU7DzksRX 42ABLrPJNuXWUyLSHkAM8 9ZFAfXJJ0EAU7 NFcwJpnDROj5MLj1DUKsM XNzPSJkZGVtcmNvbnRlbn IekCBdKnOqGPenb129YV6 5oLqpRA2pTDLI Z4ARWV0CQGIMMnNxHZsso vJmoXiwBK3lRHTfFSS4PR 20oKZ0gjPml1qlhs9hYKL xaBQ8Ze02ERRb MnzpCL0pHowxGKJ1KPvhJ DM2Tt72FSV2HVCcHWLqVU SwWlbLBTp1HTo5EBTzPZV zPSJkZGNvbXBv rxJrcYHfOHM9HL80sRK7h NY8uOV2hDC1SuXnb3MlbF VrmHEvcDM3Qo08U1W5Bgd gPJ6gR1RwLBGs UyeePlG0Lg52YUTiLxThD KW7Y5BkEskLCVc1ZWh4HQ TgHLTxPFKlWHPiACE3RZz 3VMDkalUii8Po ZvagTuDiAFqmoO8twY9tf HnbW0R3iAatLLP7i3Ohfd lnaHQiIGlkPSJfMjlkMjM 7BEVtIKPbEE79 Ixi7LXWhHyOxOPa9YEy3E lW5AkE3Ae1UBAeyz5TgO5 sjPmEkoKIcFVTaWzG6YCT nUK9uIHRoAN2t mLNay4d4qHYFAReyq1Tkv 7ZnuyidwaFywLX2qiSqtb AvDV20teZ6zMVkARMciBI euzHjeWW2k0O8 JS0kAMwiyNTjlCr3oYOdz FSdsOWeP8EnUR2uX2PqLV 2luO8glXNnRGjhBCDvCXK qU3GyDWMnHC0r AHNneX9ciX2zBWFjFFMfe iZ6jRYyyGBjkBvcUOZiK2 JpYmVkIGFzIHNoYXJwLCB ykpVtq8JeEHNe q68hqMa7PCVvWEcwpXYvE YCkZEbdm2svVNEyLTL3QE ycJfvaVZ7cKFmjc7HdLDK xN3ygSHW3prVx bnRseSByYXRlZCBhdCBhI CblDGRhNI8dOVmikkH1u1 xmliJbWYCehKOmaL7ktNm ePBBbm6PhHATj qN2vd6Z7ZV2eDEPkc5HiM ZWyEIM0bHIyUE2btr8tLP DzwRDbSXG2f8VrcLKnPR4 zZIGmWJH5FK7d iJtnYhS2MOXgST0ub8KfC CqmsNP5lUIoXE5cSHVlAK 5oq1Y4uWS6YbIqMRIuclz mjB5nPdNeiOa0 MPUfVEKcdbquTv41gC1zB hEnnHo6KY2cmgjpvz22f3 N0AJAicSoerPGoJ0lpHBZ vdHRvbTogMHB4 OyI+Ip2soAbtmQ8ipQDsU sGniLPpHLgin9WfhkOeKi esh5Vjnz8eB6urQRh2w0X sadGpcOpoGB5n oNBdAPquQk74r0Q5RPVbg ZyhwKLmTNcsId8lq6Q2x8 23UPScxRfxjNLjT3acJNW fvPjfLLT5IeAf Y (more content not included)... Normal [facility] Comment on above: Result [...] this condition includes: ? Antibiotic medicine. ? Uhyn-bnz-zvdvddz medicines to treat discomfort. ? Drinking enough [...] these instructions at home: Medicines ? Take odja-gju-cdhwkwc and prescription medicines only as told by [...] This in (more content not included)... Normal [facility] ED Patient Summaryon 021 ED Patient Summary [address] [address] Patient Discharge Instructions Person Information Name: RAJIV TOVAR Age: 25 Years Arrival Date: 01/30/2021 20:17:08 Discharge Diagnosis: Acute UTI Primary Care Physician: Alon Weber MD Provider Information Primary Provider: Joshua Hollingsworth DO Advanced Director Of Oncology:None The exam and treatment you received in the Emergency Department were for an urgent problem and are not intended as complete care. It is important that you follow up with a doctor, nurse practitioner, or physician?s curriculum assistant for ongoing care. If your symptoms [...] Follow-up Instructions: With: Address: When: Alon Weber [facility] [facility], [address] [place] [id number] [facility] (1) In 3 days 02/02/2021 In the event that this physician does not participate in your insurance network, please consult with your insurance company to find a nearby participating provider. Patient Education Materials: Urinary Tract Infection, Adult A MESSAGE TO ALL PATIENTS REGARDING OPIOIDS PRESCRIPTION OPIOIDS: WHAT YOU NEED TO KNOW Prescription opioids can be used to help relieve lmpqauji-hv-pwtvpr pain and are often prescribed following a [...] be struggling with addiction, tell your health animal care assistant and ask for guidance or call [employer]?S National Helpline at 7-626-125-HELP. v Source: [place] Department of Health a (more content not included)... Normal [facility] UA With Cult Reflexon 2020 Bacteria LM Ql (Urine sed) 1+ /HPF Abnormal Trace [facility] Comment on above: Performed By: #### 1 [id number], [id number] ####[facility] [address] [place] [id number] Bilirubin Ql (U) Negative Normal Negative [facility] Comment on above: Performed By: #### 1 [id number], [id number] ####[facility] [address] [place] [address] Clarity (U) CLOUDY Abnormal Clear [facility] Comment on above: Performed By: #### 1 [id number], [id number] ####[facility] [address] [place] [address] Color (U) YELLOW Normal Yellow [facility] Comment on above: Performed By: #### 1 [id number], [id number] ####[facility] [address] [place] [address] Crystals LM Ql (Urine sed) Present Normal [facility] Comment on above: Performed By: #### 1 [id number], [id number] ####[address] [address] Epithelial cells.squamous LM.HPF (Urine sed) [#/Area] 0-2 Normal 0-2 [facility] Comment on above: Performed By: #### 1 [id number], [id number] ####[facility] [address] [place] [address] Glucose Test strip (U) [Mass/Vol] Negative Normal Negative [facility] Comment on above: Performed By: #### 1 [id number], [id number] ####[facility] [address] [place] [address] Hemoglobin Ql (U) TRACE Abnormal Negative [facility] Comment on above: Performed By: #### 1 [id number], [id number] ####[facility] [address] [place] [address] Ketones (U) [Mass/Vol] Negative Normal Negative [facility] Comment on above: Performed By: #### 1 [id number], [id number] ####[facility] [address] [place] [address] [place].plasma/Lithi um.RBC (Bld) [Mass ratio] 0-3 Normal 0-3 [facility] Comment on above: Performed By: #### 1 [id number], [id number] ####[facility] [address] [place] [address] Mucus Ql (Urine sed) TRACE Normal [facility] Comment on above: Performed By: #### 1 [id number], [id number] ####[address] [address] Nitrite Ql (U) Positive Abnormal Negative [facility] Comment on above: Performed By: #### 1 [id number], [id number] ####[address] [address] pH (U) 7.5 [pH] Invalid Interpretation Code 5.0-9.0 [facility] Comment on above: Performed By: #### 1 [id number], [id number] ####[address] [address] Protein (U) [Mass/Vol] Negative Normal Negative [facility] Comment on above: Performed By: #### 1 3084505, 3293605 ####[address] [address] Specific gravity (U) [Rel density] 1.020 Invalid Interpretation Code 1.005-1.030 [facility] Comment on above: Performed By: #### 1 1386537, 6162862 ####[address] [address] Type of Urine collection method Clean Catch Normal [facility] Comment on above: Performed By: #### 1 7893060, 0278522 ####[address] [address] Urobilinogen Qn (U) 0.2 {Arnie'U}/dL Normal 0.0-1.0 [facility] Comment on above: Performed By: #### 1 8823184, 0101888 ####[address] [address] WBC Auto Ql (U) 1+ Abnormal Negative [facility] Comment on above: Performed By: #### 1 2261884, 7132145 ####[facility] [address] [place] [address] WBC LM.HPF (Urine sed) [#/Area] 6-15 Abnormal 0-5 [facility] Comment on above: Performed By: #### 1 2521210, 8365653 ####[facility] [address] [place] [address] Auto Diffon 01-30-2021 Basophils/100 WBC (Bld) 0.4 % Normal 0.0-2.0 [facility] Comment on above: Order Comment: Order Added by Discern Expert. Performed By: #### 2 595610, 3654269, 7677976, 67591168, 8676454, 64075661, 3142264 ####[address] [address] Basophils/Leukocytes Auto (Bld) [Pure # fraction] 0.0 E9/L Normal 0.0-0.2 [facility] Comment on above: Order Comment: Order Added by Discern Expert. Performed By: #### 2 462168, 0336573, 9090134, 95102281, 5218672, 40974836, 0346020 ####[address] [address] Eosinophils/100 WBC (Bld) 1.4 % Normal 0.0-8.0 [facility] Comment on above: Order Comment: Order Added by Discern Expert. Performed By: #### 2 607658, 0888886, 1454946, 04548429, 7384582, 46795069, 3795697 ####[address] [place] [address] Eosinophils/Leukocyt es Auto (Bld) [Pure # fraction] 0.1 E9/L Normal 0.0-0.5 [facility] Comment on above: Order Comment: Order Added by Discern Expert. Performed By: #### 2 237514, 7152500, 8492542, 39136267, 7053423, 87997803, 5941505 ####[address] [address] Lymphocytes/100 WBC (Bld) 23.7 % Normal 14.0-50.0 [facility] Comment on above: Order Comment: Order Added by Discern Expert. Performed By: #### 2 655226, 4031739, 3001111, 62672386, 0485815, 88386169, 3945399 ####[facility] [address] [place] [address] Lymphocytes/Leukocyt es Auto (Bld) [Pure # fraction] 1.9 E9/L Normal 1.0-4.0 [facility] Comment on above: Order Comment: Order Added by Yifan Expert. Performed By: #### 2 844909, 8201542, 6453111, 50612811, 6756063, 04917471, 0515863 ####[address] [place] [address] Monocytes/100 WBC (Bld) 6.2 % Normal 4.0-14.0 [facility] Comment on above: Order Comment: Order Added by Yifan Expert. Performed By: #### 2 511641, 8173959, 7889388, 36151627, 3695125, 55192004, 1958346 ####[facility] [address] [place] [address] Monocytes/Leukocytes Auto (Bld) [Pure # fraction] 0.5 E9/L Normal 0.2-1.0 [facility] Comment on above: Order Comment: Order Added by Discern Expert. Performed By: #### 2 594709, 2882778, 7704261, 43435843, 1758762, 53649454, 7609008 ####[facility] [address] [place] [address] Neutrophils/100 WBC (Bld) 68.3 % Normal 36.0-75.0 [facility] Comment on above: Order Comment: Order Added by Yifan Expert. Performed By: #### 2 333424, 6277821, 3369929, 26856358, 1698124, 06885574, 5854345 ####[facility] [address] [place] [address] Neutrophils/Leukocyt es Auto (Bld) [Pure # fraction] 5.6 E9/L Normal 2.0-7.5 [facility] Comment on above: Order Comment: Order Added by Discern Expert. Performed By: #### 2 713645, 2099934, 0638874, 25943400, 3488710, 75878801, 6885241 ####[facility] [address] [place] [address] BMPon 01-30-2021 Calcium [Mass/Vol] 9.0 mg/dL Normal 8.9-11.1 [facility] Comment on above: Performed By: #### 2 926512, 2066482, 1362384, 72651976, 9582045, 05141616, 6669186 ####[facility] [address] [place] [address] Creatinine [Mass/Vol] 0.7 mg/dL Normal 0.5-1.3 [facility] Comment on above: Performed By: #### 2 357961, 4897202, 1428368, 22404160, 0941308, 56466449, 2579930 ####[facility] [address] [place] [address] Urea nitrogen [Mass/Vol] 10 mg/dL Normal 5-21 [facility] Comment on above: Performed By: #### 2 725192, 5577097, 1039733, 34910568, 0659879, 75824951, 0774727 ####[facility] [address] [place] [address] Urea nitrogen/Creatinine [Mass ratio] 14 No Units Normal 10-20 [facility] Comment on above: Performed By: #### 2 646743, 6520279, 0724266, 33452505, 4963613, 53241198, 8261022 ####[facility] [address] [place] [address] Anion gap [Moles/Vol] 12 mmol/L Normal 6-16 [facility] Comment on above: Performed By: #### 2 038081, 5722941, 5636867, 49887216, 7228209, 04428343, 9392009 ####[facility] [address] [place] [address] Chloride [Moles/Vol] 104 mmol/L Normal 101-111 [facility] Comment on above: Performed By: #### 2 667941, 0698796, 0171457, 93231222, 9976408, 67252096, 5789877 ####[facility] [address] [place] [address] CO2 [Moles/Vol] 25 mmol/L Normal 21-31 [facility] Comment on above: Performed By: #### 2 444556, 2835479, 1491556, 85694091, 5800699, 10780629, 5762017 ####[facility] [address] [place] [address] Glucose [Mass/Vol] 93 mg/dL Normal 55-199 [facility] Comment on above: Result Comment: If t his glucose result represents a fasting glucose, interpretation should refer to the following reference range: 55-99 mg/dL Performed By: #### 2 699933, 5382262, 4638726, 95221841, 6593920, 03276064, 2043472 ####[facility] [address] [place] [address] Potassium [Moles/Vol] 3.8 mmol/L Normal 3.5-5.3 [facility] Comment on above: Performed By: #### 2 222010, 0698678, 3128314, 25916946, 2800857, 16445747, 9786015 ####[facility] [address] [place] [address] Sodium [Moles/Vol] 137 mmol/L Normal 135-145 [facility] Comment on above: Performed By: #### 2 327804, 7524838, 9836801, 87261248, 1439315, 35157943, 7776668 ####[facility] [address] [place] [address] CBC w/ Auto Diffon 08-09-202 1 Erythrocyte distribution width (RBC) [Ratio] 12.2 % Normal 10.9-14.2 [facility] Comment on above: Performed By: #### 2 630629, 8588395, 5495319, 95504400, 6380760, 09054038, 4511913 ####[facility] [address] [place] [address] Hematocrit (Bld) [Volume fraction] 39.3 % Normal 34.0-46.0 [facility] Comment on above: Performed By: #### 2 526504, 6945106, 8418762, 72682933, 3559147, 99979512, 4082911 ####[address] [place] [address] Hemoglobin (Bld) [Mass/Vol] 13.3 g/dL Normal 12.0-16.0 [facility] Comment on above: Performed By: #### 2 677164, 7236296, 1652623, 88881274, 4966399, 45920318, 9174136 ####[address] [place] [address] MCH (RBC) [Entitic mass] 31.3 pg Normal 27.0-34.0 [facility] Comment on above: Performed By: #### 2 862897, 7707301, 0643897, 97897776, 8194689, 01536846, 3729133 ####[address] [address] MCHC (RBC) [Mass/Vol] 34.0 g/dL Normal 31.4-36.0 [facility] Comment on above: Performed By: #### 2 166800, 4685797, 9462053, 60909338, 8187536, 56890882, 0209765 ####[facility] [address] [place] [address] MCV (RBC) [Entitic vol] 92.1 fL Normal 80.0-100.0 [facility] Comment on above: Performed By: #### 2 665371, 4863077, 1659339, 73326088, 4581156, 46914095, 9751457 ####[facility] [address] [place] [address] Platelet mean volume (Bld) [Entitic vol] 9.2 fL Normal 6.4-10.8 [facility] Comment on above: Performed By: #### 2 784898, 8363172, 9774962, 03371984, 0039826, 37092325, 3267482 ####[facility] [address] [place] [address] Platelets (Bld) [#/Vol] 214.0 E9/L Normal 150.0-500.0 [facility] Comment on above: Performed By: #### 2 703848, 6024060, 9805515, 28810356, 8832212, 74371643, 1799461 ####[facility] [address] [place] [address] RBC (Bld) [#/Vol] 4.3 E12/L Normal 4.3-5.9 [facility] Comment on above: Performed By: #### 2 721409, 5677874, 8525809, 60276276, 7585438, 16591718, 3645783 ####[facility] [address] [place] [address] WBC corrected for nucl RBC Auto (Bld) [#/Vol] 8.2 E9/L Normal 4.0-11.0 [facility] Comment on above: Performed By: #### 2 446164, 2981555, 2110214, 37603363, 4100730, 69527743, 3388979 ####[address] [place] [address] Consent for Treatmenton Consent for Treatment [id number]#1 .00CD:[address] [facility] Hep Func Panelon 01-30-2021 Albumin [Mass/Vol] 4.0 g/dL Normal 3.3-5.0 [facility] Comment on above: Performed By: #### 2 010496, 3234583, 0472701, 75582117, 6908494, 45405580, 6776078 #### [facility] [address] [place] [address] Albumin/Globulin (S) [Mass conc ratio] 1.5 Normal 1.1-2.2 [facility] Comment on above: Performed By: #### 2 115976, 2546291, 8372153, 64072740, 1411159, 69375279, 0674714 #### [facility] [address] [place] [address] ALP [Catalytic activity/Vol] 44 Int._Unit/L Normal 21-98 [facility] Comment on above: Performed By: #### 2 323760, 6576767, 9585287, 31364920, 5662853, 75168217, 6134944 #### [facility] [address] [place] [address] ALT No additional P-5'-P [Catalytic activity/Vol] 20 Int._Unit/L Normal 6-46 [facility] Comment on above: Performed By: #### 2 761666, 8709490, 4399234, 26004404, 8701306, 26697527, 0701775 #### [facility] [address] [place] [address] AST [Catalytic activity/Vol] 16 Int._Unit/L Normal 5-43 [facility] Comment on above: Performed By: #### 2 601501, 2259574, 3078754, 93528619, 7898900, 25211913, 4596282 #### [facility] [address] [place] [address] Bilirubin [Mass/Vol] 1.1 mg/dL Normal 0.0-1.1 [facility] Comment on above: Performed By: #### 2 946663, 6093213, 5534997, 70526845, 0668083, 41061044, 7343170 #### [facility] [address] [place] [address] Bilirubin.direct [Mass/Vol] 0.2 mg/dL Normal 0.1-0.4 [facility] Comment on above: Performed By: #### 2 856277, 3488569, 6571846, 56431878, 4186935, 08085224, 4144149 #### [facility] [address] [place] [address] Bilirubin.indirect [Mass or moles/Vol] 0.9 mg/dL Normal 0.1-0.9 [facility] Comment on above: Performed By: #### 2 567815, 8997322, 5261430, 76391140, 2780829, 84374729, 9635548 #### [facility] [address] [place] [address] Globulin (S) [Mass/Vol] 2.6 g/dL Normal 1.4-4.0 [facility] Comment on above: Performed By: #### 2 783293, 7767981, 7421233, 52350419, 3047543, 74098734, 9687307 #### [facility] [address] [place] [address] Protein [Mass/Vol] 6.6 g/dL Normal 6.0-7.8 [facility] Comment on above: Performed By: #### 2 930690, 5320304, 2529040, 06976473, 4692517, 99955990, 8395155 #### [facility] [address] [place] [address] Lipase Levelon 01-30-2021 Lipase [Catalytic activity/Vol] 32 U/L Normal 13-58 [facility] Comment on above: Performed By: #### 2 081627, 8233638, 2687353, 04200923, 9368618, 73038414, 7864908 #### [facility] [address] [place] [address] eGFRon 01-30-2021 GFR/1.73 sq M.predicted among blacks MDRD (S/P/Bld) [Vol rate/Area] mL/min/{1.73_m2} Normal >=59 [facility] Comment on above: Order Comment: Order added by Discern Expert. Result Comment: eGFR is race adjusted. AA=. Performed By: #### 2 099936, 7843044, 2535741, 94209643, 6534761, 34270370, 9081663 #### [facility] [address] [place] [address] GFR/1.73 sq M.predicted among non-blacks MDRD (S/P/Bld) [Vol rate/Area] mL/min/{1.73_m2} Normal >=59 [facility] Comment on above: Order Comment: Order added by Discern Expert. Result Comment: Hoseman bib kidney disease could be indicated at eGFR's of less than 60 mL/min/1.73m2. Kidney failure is indicated at less than 15 mL/min/1.73m2. Performed By: #### 2 144809, 1079439, 0405601, 70767230, 8994473, 30984524, 5164009 #### [facility] [address] [place] [address] Provider Letteron 06-03-2020 Provider Letter June 03, 2020 To Whom It May Concern, Rajiv has been under my care and had a lap choly on 05/10/2020. She was seen post operatively on 05/23/2020 and was healing well. Rajiv is released to work on 06/06/2020 with no restrictions. Please call the office at [phone] with any questions/ concerns. Sincerely, Dr. Aiden Izquierdo faxed to [facility] to [phone] [facility] Ambulatory Clinical Summaryo n 05-23-2020 Ambulatory Clinical Summary {[id number]}CD:[id number] Normal [facility] General Surgery Office/Clini c [...] Aiden IZQUIERDO MD Only if needed [address] [place] [phone]- Additional Instructions: F/U PRN Problem List/Past Medical [...] 04/19/2020 Family History Family history is negative [facility] Comment on above: Result Comment: Elec tronically Signed By: Aiden IZQUIERDO MD\.br\Date and Time Signed: 05/23/20 10:17 EST\.br\Electronically Co-Signed By: Mildred Cook MA\.br\Date and Time Co-Signed: 05/23/20 09:55 EST IntraOperative Documentson 1 07-17-2019 IntraOperative Documents [id number]#1 .00CD:[address] [facility] Ambulatory Clinical Summaryo n 05-16-2020 Ambulatory Clinical Summary {[id number] -[id number]}CD:347010 Normal [facility] Gastroenterology Office/Clin ic Noteon 05-16-2020 Gastroenterology Office/Clinic Note Chief Complaint f/u EGD HPI Staff This is a 25 year old female who presents today for a follow up to EGD. History of Present Illness 24 years old white female with no significant past medical history except for anxiety, referred to me from [facility], ER to be evaluated for right upper quadrant abdominal pain, she reports right upper quadrant abdominal pain, started 6 weeks ago, sporadic, moderate in nature except for the last time when it was severe for which she went to [facility], ER, she had normal CBC, CMP and [...] Information Ezequiel MARTINEZ MD Only if needed [facility] [address] [place] [address]- Additional Instructions: Patient Education Cholelithiasis Problem List/Past [...] Surgical Pathology Report; 04/29/2020 10:[address] [facility] Comment on above: Result [...] required. HOME CARE INSTRUCTIONS ? Only take hcfx-pyg-joqufgc or prescription medicines for pain, discomfort, or [...] Document Reviewed: 08/09/2011 ExitCare? Patient Information ?2013 [employer]. [facility] Coding Summary.on 05-13-2020 Coding Summary. CODING DATE: 05/13/2020 FINAL [facility] STATUS: Home (Routine DC) PAYOR: Reba APC DESCRIPTION 5361 Level 1 Laparoscopy and Related Services ADMIT DX: REASON FOR VISIT DX: K81.1 Chronic cholecystitis FINAL DX: PRINCIPAL: K81.1 Chronic cholecystitis SECONDARY: K82.8 Other specified diseases of gallbladder F41.9 Anxiety disorder, unspecified PYMT PROC APC STAT DESCRIPTION DOCTOR NAME DATE 38520 5361 J1 Laparoscopy, surgical; Aiden IZQUIERDO MD 05/10/2020 cholecystectomy with cholangiography 77459 Anesthesia for Bakari Husain Jr, DO 05/10/2020 intraperitoneal procedures in upper abdomen including laparoscopy; not otherwise specified NOTE: The code number assigned matches the documented diagnosis and / or procedure in the patient's chart. However, the narrative phrase printed from the coding software may appear abbreviated, or result in slightly different terminology. Revised Coded By: Eugenia Mae Revised Date Saved: 05/13/2020 02:09 pm [facility] Main OR Intraoperative Recor don 05-13-2020 Main OR Intraoperative Record IntraOp Document Type FT Summary Primary Physician: Aiden IZQUIERDO MD Finalized Date/Time: 05/13/20 11:07:53 Pt. Name: RAJIV TOVAR/Sex: 1995 Female Med Rec #: [id number] Physician: Aiden IZQUIERDO MD Financial #: [id number] Pt. Type: A Room/Bed: Admit/Disch: 05/10/20 07:43:57 - 05/10/20 15:00:00 Institution: Case Times FT Entry 1 Patient Times In Room 05/10/20 09:29:00 Out Room 05/10/20 10:27:00 Procedure Times Start 05/10/20 09:44:00 Stop 05/10/20 10:20:00 Anesthesia Times Start 05/10/20 09:29:00 Stop 05/10/20 10:27:00 Last Modified By: My Callahan RN 05/10/20 10:27:42 General Comments: 1011- pyrotechnic mixer called dr. guo read xray dilated tapers distally can't exclude small stone possible spasm , Dr. Izquierdo stated understanding. - joan turner 05/13/2020 Chart opened to review and send charges. 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 Case Attendance FT Entry 1 Entry 2 Entry 3 Case Attendee Ankit AGUILAR, Linnea IZQUIERDO MD, Aiden ARAUJO MD, Ramandeep Cummings Role Performed Anesthesiologist Surgeon - Primary Surgeon - Assist 1 Coal Picker Time In 05/10/20 09:29:00 05/10/20 09:40:00 05/10/20 [...] TURNER, My Villalba RN, Bernadette Ortiz Cert. Tourist Home Keeper, Arlette Davila Role Performed Leather Cartridge Belt Maker - Primary Scrub - Primary Scrub - [...] Magalie R Role Performed Scrub - Primary Director [employer] Time In 05/10/20 09:29:00 05/10/20 10:00:00 Time [...] Coy RN, Deejay Chowdhury RN, Angel Oglesby Tourist Home Keeper, Carlos Rock CST, Macie C Time Out [...] By: C (more content not included)... Normal [facility] Postoperative Documentson Postoperative Documents [id number]# 1.00CD:[address] [facility] Progress Note-Physicianon Progress Note-Physician [...] 10 tab(s), Refills(s) 0, Pharmacy: [facility]/pharmacy #[id number], 168, cm, 04/19/20 6:20:00 EDT, Height/Length Dosing, 58.5, kg, 04/19/20 6:20:00 EDT, Weight Dosing omeprazole 40 mg Cap-DR: 40 mg = 1 cap(s), Oral, Daily, # 30 cap(s), Refills(s) 2, Pharmacy: [facility]/pharmacy #[id number], 168, cm, 04/20/20 10:06:00 EDT, Height/Length Dosing, 59.5, kg, 04/20/20 10:06:00 EDT, Weight Dosing Documented Medications Documented desvenlafaxine 100 mg Tab-: 100 mg = 1 tab(s), Oral, Daily, Refills(s) 0, Depression Problem list: All Problems Biliary dyskinesia / SNOMED CT 510209933 / Confirmed Depression / SNOMED CT 88175885 / Confirmed Histories Past Medical History: No active or resolved past medical history items have been selected or recorded. Family History: Entire family history is negative. Procedure history: EGD (esophagogastroduoden oscopy) gastric outlet reduction (6879887229) on 04/29/2020 at 25 Years. section (38447156) on 07/23/2019 at 24 Years. Sinus (1055738359). Nasal cautery (951723373). Ankle (2984518). Comments: 05/10/2020 8:24 EST - Kluding LOG TURNER, Bernarda Bilateral ankle stabilazation for flat feet Diagnostic laparoscopy (229479802). Comments: 05/10/2020 8:26 EST - Kluding LOG TURNER, Bernarda ovarian cyst drained Social History Social [...] EST Heart (more content not included)... Normal [facility] Comment on above: Result [...] All Problems Biliary dyskinesia / SNOMED CT 414424680 / Confirmed Depression / SNOMED CT 32207740 / Confirmed Physical Examination Vital Signs 05/10/2020 [...] EST Apic (more content not included)... Normal [facility] Comment on above: Result Comment: Elec tronically Signed By: Bakari Husain Jr, DO\.br\Date and Time Signed: 05/13/20 13:20 EST Coding Summary.on 05-12-2020 Coding Summary. CODING DATE: 05/12/2020 FINAL [facility] STATUS: Home (Routine DC) PAYOR: [place] ADMIT DX: REASON FOR VISIT DX: Z01.812 [...] Jaquez CphT Date Saved: 05/12/2020 09:53 pm [facility] Consent for Anesthesiaon Consent for Anesthesia [id number]# 1.00CD:127 [facility] Discharge Instructionson Discharge Instructions [id number]# 1.00CD:127 [facility] IntraOperative Documentson 1 07-11-2019 IntraOperative Documents [id number]# 1.00CD:127 [facility] Operative Reporton 0 Operative Report Date of Surgery: 05/10/2020 SURGEON: Aiden Izquierdo MD, FACS EXPORT FREIGHT MANAGER: Ramandeep Araujo MD, FACS PREOPERATIVE DIAGNOSIS: Chronic [...] Aiden Izquierdo MD, FACS lkr Dictated: 05/10/2020 #[id number] Typed: 05/10/2020 #[id number] cc: Alon Weber M.D. Aiden Izquierdo MD, FACS [facility] Comment on above: Result Comment: Elec tronically Signed By: TIMBO POLK, Aiden Busby.ilana\Date and Time Signed: 05/11/20 08:04 EST Preoperative Documentson Preoperative Documents [id number]# 1.00CD:127 [facility] Preoperative Documents [id number]# 1.00CD:127 [facility] Consent for Treatmenton 04-24 Consent for Treatment [id number]#1 .00CD:127 [facility] Inpatient Patient Summaryon 05-10-2020 Inpatient Patient Summary [place] [id number] [facility] Clinical Discharge Instructions PERSON INFORMATION Name: RAJIV TOVAR [facility]#:[id number] PHYSICIANS Admitting Physician: Aiden IZQUIERDO MD Attending Physician: Aiden IZQUIERDO MD PCP: Gus POLK, Alon Discharge Diagnosis: Chronic cholecystitis with calculus Comment: PATIENT EDUCATION INFORMATION Instructions: Post Op Patient Instructions - FT (CUSTOM); How to Use an Incentive Spirometer; Izquierdo - Post Op Instructions (CUSTOM) Medication Leaflets: Follow up: With: Address: When: Aiden IZQUIERDO [address], [address] [place] [phone] [email or web address] (1) Within 7 to 10 days Comments: Call for any problems. Call for followup appointment Type Location Start [facility] Follow Up [facility] 05/16/2020 1:00 PM 05/16/2020 1:15 PM Confirmed MEDICATION LIST Medications to Continue with No Changes Other Medications desvenlafaxine (desvenlafaxine 100 mg Tab-) 1 Tablets By Mouth every day. omeprazole (omeprazole 40 mg Cap-DR) 1 Capsules By Mouth every day. Refills: 2. ondansetron (Zofran ODT 4 mg Tab) 1 Tablets By Mouth 3 times a day. Refills: 0. Comment: Normal [facility] IntraOperative Documentson 07-10-2019 IntraOperative Documents [id number]# 1.00CD:[address] [facility] Main OR PACU I Recordon 04-24 Main OR PACU I Record PACU Phase I Document Type FT Summary Primary Physician: Aiden IZQUIERDO MD Finalized Date/Time: 05/10/20 11:13:04 Pt. Name: RAJIV TOVAR/Sex: 1995 Female Med Rec #: [id number] Physician: Aiden IZQUIERDO MD Financial #: [id number] Pt. Type: A Room/Bed: AS06/24 Admit/Disch: 05/10/20 [...] By: Belkys Yarbrough RN 05/10/20 11:[address] [facility] Main OR PACU II Recordon Main OR PACU II Record PACU Phase II Document Type FT Summary Primary Physician: Aiden IZQUIERDO MD Finalized Date/Time: 05/10/20 15:45:07 Pt. Name: RAJIV TOVAR Pilar/Sex: 1995 Female Med Rec #: [id number] Physician: Aiden IZQUIERDO MD Financial #: [id number] Pt. Type: A Room/Bed: Admit/Disch: 05/10/20 07:43:57 [...] By: Marcelina Cadet RN 05/10/20 15:[address] [facility] Main OR Preoperative Recordo n 05-10-2020 Main OR Preoperative Record PreOp Document Type FT Summary Primary Physician: Aiden IZQUIERDO MD Finalized Date/Time: 05/10/20 10:00:50 Pt. Name: RAJIV TOVAR /Sex: 1995 Female Med Rec #: [id number] Physician: Aiden IZQUIERDO MD Financial #: [id number] Pt. Type: A Room/Bed: Admit/Disch: 05/10/20 07:43:57 [...] By: My Callahan RN 05/10/20 10:[address] [facility] Monitor Recordon 05-10-2020 Monitor Record [id number]# 1.00CD:[address] [facility] Outpatient Surgery Discharge Instructionon 05-10-2020 Outpatient Surgery Discharge Instruction [place] [id number] Patient Discharge Instructions PERSON INFORMATION Name: RAJIV [...] With: Address: When: A[address], [address] [place] [address] [email or web address] () Within 7 to 10 days Comments: Call for any problems. Call for followup appointment Type Location [facility] Follow Up [facility] 05/16/2020 1:00 PM 05/16/2020 1:15 PM Confirmed Pharmacy Information: Thank you for choosing [facility] HERE ARE THE MEDICATION CHANGES [...] pain from co (more content not included)... [facility] Patient Education - Texton 1 07-10-2019 Patient [...] 10/21/2007 Document Revised: 07/03/2018 Document Reviewed: 04/23/2018 [employer] Patient Education ? 2019 [employer]. [place], [place] Aiden Izquierdo MD, FACS POST OPERATIVE [...] or r (more content not included)... Normal [facility] Progress Note-Physicianon Progress Note-Physician Patient: RAJIV TOVAR Age: 25 years Sex: Female : 1995 Associated Diagnoses: None Author: Aiden IZQUIERDO MD Postoperative Information Date/ Time: 05/10/2020 10:26:00 Preoperative Diagnosis: Chronic cholecystitis with calculus ([id number] K80.10, Working, Medical). Postoperative Diagnosis: Same pending pathology. Procedure: Laparoscopic Cholecystectomy with intraoperative chloangiogram. Performed by: Aiden Izquierdo MD. Coal Picker: Ramandeep Araujo MD. Specimens Removed: Gallbladder. Estimated Blood Loss: 5 ml. Complications: None. Normal [facility] Comment on above: Result Comment: Elec tronically Signed By: Aiden IZQUIERDO MD\.br\Date and Time Signed: 05/10/20 10:27 EST Progress Note-Physician Patient: RAJIV TOVAR Age: 25 years Sex: Female : 1995 Associated Diagnoses: None Author: Aiden IZQUIERDO MD Basic Information No change in History and Physical Normal [facility] Comment on above: Result [...] ALSO POSSIBLE. CLINICAL HISTORY: Cholelithiasis. COMMENT: Limited dcext-je-ipnh C-arm images were obtained in the OR, [...] Dose: Ka,r in mGy = 3.[address] [facility] Coding Summary.on 05-08-2020 Coding Summary. CODING DATE: 05/07/2020 FINAL [facility] STATUS: Home (Routine DC) PAYOR: Reba [...] CphT Date Saved: 05/07/2020 10:[address] [facility] Coding Summary.on 05-05-2020 Coding Summary. CODING DATE: 05/05/2020 FINAL [facility] STATUS: Home (Routine DC) PAYOR: Reba APC DESCRIPTION 5301 Level 1 Upper GI Procedures ADMIT DX: REASON FOR VISIT DX: R10.13 Epigastric pain FINAL DX: PRINCIPAL: R10.13 Epigastric pain SECONDARY: R10.11 Right upper quadrant pain F41.9 Anxiety disorder, unspecified PYMT PROC APC STAT DESCRIPTION DOCTOR NAME DATE [id number] Ezequiel WEST MD 04/29/2020 phagogastroduodenosco py, flexible, transoral; with biopsy, single or multiple 63120 Anesthesia for upper Husain Bakari Berry DO [...] Mae Revised Date Saved: 05/05/2020 11:48 am [facility] Consent for Procedure/Surger yon 05-05-2020 Consent for Procedure/Surgery [id number]#1 .00CD:127 [facility] Formson 05-05-2020 Forms [id number]#1 .00CD:127 [facility] Priority Order-Mitchell 2019 Priority Order-STAT Comment Invalid Interpretation Code [facility] Comment on above: Result Comment: Rece ived Performed at: [facility] [address] [facility], [place] [id number] [facility] Johanny Lozano Performed By: #### 2 [id number], SARS-CoV-2, MARY #### [facility] [address] [place] [address] SARS-CoV-2, NAAon 05-05-2020 SARS-CoV-2 (COVID-19) RNA MARY+probe Ql (Resp) Not detected Invalid Interpretation Code Not Detected [facility] Comment on above: Result Comment: This nucleic acid amplification test was developed and its performance characteristics determined by [employer]. Nucleic acid amplification tests include PCR and [...] detected) result in this assay. Performed at: [facility] [address] [facility] [place] [id number] MD Indira Washington Performed By: #### 2 [id number], SARS-CoV-2, MARY #### [facility] [address] [place] [address] B hCG Qualon 05-04-2020 Beta hCG Ql Negative Normal [facility] Comment on above: Performed By: #### 2 [id number] #### [facility] [address] [place] [address] CBC w/Indiceson 05-04-2020 Erythrocyte distribution width (RBC) [Ratio] 13.1 % Normal 10.9-14.2 [facility] Comment on above: Performed By: #### 2 857419, 8111557 ####[address] [address] Hematocrit (Bld) [Volume fraction] 40.5 % Normal 34.0-46.0 [facility] Comment on above: Performed By: #### 2 035762, 1401289 ####[address] [address] Hemoglobin (Bld) [Mass/Vol] 14.0 g/dL Normal 12.0-16.0 [facility] Comment on above: Performed By: #### 2 928649, [id number] ####[address] [address] MCH (RBC) [Entitic mass] 31.0 pg Normal 27.0-34.0 [facility] Comment on above: Performed By: #### 2 603531, [id number] ####[address] [address] MCHC (RBC) [Mass/Vol] 34.6 g/dL Normal 31.4-36.0 [facility] Comment on above: Performed By: #### 2 360390, 7608710 ####[address] [address] MCV (RBC) [Entitic vol] 89.7 fL Normal 80.0-100.0 [facility] Comment on above: Performed By: #### 2 382850, 1668486 ####[address] [address] Platelet mean volume (Bld) [Entitic vol] 9.1 fL Normal 6.4-10.8 [facility] Comment on above: Performed By: #### 2 555224, 5931135 ####[address] [address] Platelets (Bld) [#/Vol] 245.0 E9/L Normal 150.0-500.0 [facility] Comment on above: Performed By: #### 2 622242, 1786912 ####[facility] [address] [place] [address] RBC (Bld) [#/Vol] 4.5 E12/L Normal 4.3-5.9 [facility] Comment on above: Performed By: #### 2 596200, 2529226 ####[facility] [address] [place] [address] WBC corrected for nucl RBC Auto (Bld) [#/Vol] 5.6 E9/L Normal 4.0-11.0 [facility] Comment on above: Performed By: #### 2 882278, 1972897 ####[address] [address] Consent for Treatmenton 04-24 Consent for Treatment [id number]#1 .00CD:[address] [facility] Hep Func Panelon 05-04-2020 Albumin [Mass/Vol] 4.2 g/dL Normal 3.3-5.0 [facility] Comment on above: Order Comment: if no t already done. Performed By: #### 2 546388, 7670556 ####[address] [address] Albumin/Globulin (S) [Mass conc ratio] 1.4 Normal 1.1-2.2 [facility] Comment on above: Order Comment: if no t already done. Performed By: #### 2 902791, 1471115 ####[facility] [address] [place] [address] ALP [Catalytic activity/Vol] 112 Int._Unit/L High 21-98 [facility] Comment on above: Order Comment: if no t already done. Performed By: #### 2 239687, 6855026 ####[facility] [address] [place] [address] ALT No additional P-5'-P [Catalytic activity/Vol] 129 Int._Unit/L High 6-46 [facility] Comment on above: Order Comment: if no t already done. Performed By: #### 2 390193, 7743555 ####[facility] [address] [place] [address] AST [Catalytic activity/Vol] 28 Int._Unit/L Normal 5-43 [facility] Comment on above: Order Comment: if no t already done. Performed By: #### 2 485396, 1066730 ####[address] [address] Bilirubin [Mass/Vol] 0.7 mg/dL Normal 0.0-1.1 [facility] Comment on above: Order Comment: if no t already done. Performed By: #### 2 856907, 7149419 ####[address] [address] Bilirubin.direct [Mass/Vol] 0.1 mg/dL Normal 0.1-0.4 [facility] Comment on above: Order Comment: if no t already done. Performed By: #### 2 743558, 7860781 ####[facility] [address] [place] [address] Bilirubin.indirect [Mass or moles/Vol] 0.6 mg/dL Normal 0.1-0.9 [facility] Comment on above: Order Comment: if no t already done. Performed By: #### 2 201045, 0271921 ####[address] [address] Globulin (S) [Mass/Vol] 3.1 g/dL Normal 1.4-4.0 [facility] Comment on above: Order Comment: if no t already done. Performed By: #### 2 818503, 2677927 ####[facility] [address] [place] [address] Protein [Mass/Vol] 7.3 g/dL Normal 6.0-7.8 [facility] Comment on above: Order Comment: if no t already done. Performed By: #### 2 741664, 8983920 ####[facility] [address] [place] [address] Ambulatory Clinical Summaryo n 05-03-2020 Ambulatory Clinical Summary {[id number]}CD:032402 [facility] Consent for Procedure/Surger yon 05-03-2020 Consent for Procedure/Surgery [id number] .00CD:127 [facility] Consent for Procedure/Surgery [id number]#1 .00CD:127 [facility] Formson 05-03-2020 Forms [id number]#1 .00CD:127 [facility] Forms [id number]#1 .00CD:127 [facility] Physician Orderon 05-03-2020 Physician Order [id number]#1 .00CD:127 [facility] Physician Referralon 020 Physician Referral [id number]#1 .00CD:127 [facility] Postoperative Documentson Postoperative Documents [id number]# 1.00CD:127 [facility] Progress Note-Physicianon Progress Note-Physician Patient: RAJIV TOVAR Age: 25 years Sex: Female : 1995 Associated Diagnoses: None Author: Bkaari Husain Jr, DO Preoperative Information Anesthesia Preop [...] 10 tab(s), Refills(s) 0, Pharmacy: [facility]/pharmacy #[id number], 168, cm, 04/19/20 6:20:00 EDT, Height/Length Dosing, 58.5, kg, 04/19/20 6:20:00 EDT, Weight Dosing omeprazole 40 mg Cap-DR: 40 mg = 1 cap(s), Oral, Daily, # 30 cap(s), Refills(s) 2, Pharmacy: [facility]/pharmacy #[id number], 168, cm, 04/20/20 10:06:00 EDT, Height/Length [...] Cardiovascular: Regular rhythm. Neurologic: Alert, Oriented. Plan [place] [employer] Anesthesiologists (ASA) physical status classification: Class II. Anesthetic Preoperative Plan Anesthesia: General. . Anesthetic plan, risks, benefits, and alternatives discussed with the patient and/or family. Communication: face to face with (patient 5 minutes, Patient educated on smoking cesstation). Normal [facility] Comment on above: Result [...] vomiting. Plan Transfer/ Discharge: Condition stable. Normal [facility] Comment on above: Result Comment: Elec tronically Signed By: Bakari Husain Jr, DO\.br\Date and Time Signed: 05/03/20 09:37 EST Consenton 05-02-2020 Consent [id number] .00CD:127 [facility] Discharge Instructionson Discharge Instructions [id number]#1 .00CD:[address] [facility] General Surgery Office/Clini c [...] When Contact Information TIMBO POLK, Aiden Tilley [address] [place] [address]- Additional Instructions: F/U POST OP. [...] Family History Family history is negative Normal [facility] Comment on above: Result Comment: Elec tronically Signed By: Aiden IZQUIERDO MD\.br\Date and Time Signed: 05/02/20 15:39 EST\.br\Electronically Co-Signed By: Mildred Cook MA.br\Date and Time Co-Signed: 05/02/20 15:25 EST IntraOperative Documentson 1 07-02-2019 IntraOperative Documents [id number] .00CD:[address] [facility] IntraOperative Documents [id number] .00CD:[address] [facility] Main OR Intraoperative Recor don 05-02-2020 Main OR Intraoperative Record IntraOp Document Type FT Summary Primary Physician: Ezequiel MARTINEZ MD Finalized Date/Time: 05/02/20 08:23:39 Pt. Name: AKHIL RAJIV Quezada/Sex: 1995 Female Med Rec #: [id number] Physician: Ezequiel MARTINEZ MD Financial #: [id number] Pt. Type: O Room/Bed: / Admit/Disch: 04/29/20 10:12:58 - 04/29/20 23:59:59 Institution: Case Times FT Entry 1 Patient Times In Room 04/29/20 10:52:00 Out Room 04/29/20 11:04:00 Procedure Times Start 04/29/20 10:56:00 Stop 04/29/20 10:59:00 Anesthesia Times Start 04/29/20 10:52:00 Stop 04/29/20 11:04:00 Last Modified By: Russell Maloney RN 04/29/20 11:04:12 General Comments: 05/02/2020 Chart opened to review and send charges. F Dagmar [employer]. Case Attendance FT Entry 1 Entry 2 Entry 3 Case Attendee Rodrigue Berry DO, Bakari MARTINEZ MD, Russell Lawrence RN Role Performed Anesthesiologist of Surgeon - Primary Leather Cartridge Belt Maker - Primary Record Time In 04/29/20 10:52:00 04/29/20 10:52:00 04/29/20 10:52:00 Time Out 04/29/20 11:04:00 04/29/20 11:04:00 04/29/20 11:04:00 Procedure EGD(.) EGD(.) EGD(.) Comments Last Modified By: Haider TURNER, Russell Maloney RN, Russell Santos RN 04/29/20 11:04:13 04/29/20 11:04:13 04/29/20 11:04:13 Entry 4 Entry 5 Entry 6 Case Attendee Mere TURNER, Charlotte Roberts CST, Aria Role Performed Leather Cartridge Belt Maker - Primary Scrub - Primary Staff - [...] Arm P (more content not included)... Normal [facility] Ezequiel Martinez M.D. [address] [place] [address] Re: RAJIV TOVAR Date of : 1995 [...] report following her procedure. Sincerely Aiden Kaplan [facility] Coding Summary.on 04-30-2020 Coding Summary. CODING DATE: 04/29/2020 FINAL [facility] STATUS: Home (Routine DC) PAYOR: Reba [...] Jaquez CphT Date Saved: 04/29/2020 11:14 pm [facility] Consent for Treatmenton Consent for Treatment [id number]#1 .00CD:127 [facility] Endoscopic Procedure Report - Otheron 04-29-2020 Endoscopic [...] surgery for right upper quadrant pain/cholelithiasis Normal [facility] Comment on above: Result Comment: Elec tronically Signed By: Ezequiel MARTINEZ MD\.br\Date and Time Signed: 04/29/20 11:03 EST Other Comment: Lorri frazier Attachment - attachment storage system not supported [id number] Can be viewed in source systemMissing Attachment - attachment storage system not supported [id number] Can be viewed in source systemMissing Attachment - attachment storage system not supported [id number] Can be viewed in source systemMissing Attachment - attachment storage system not supported [id number] Can be viewed in source systemMissing Attachment - attachment storage system not supported [id number] Can be viewed in source system Inpatient Patient Summaryon 04-29-2020 Inpatient Patient Summary [place] [id number] [facility] Clinical Discharge Instructions PERSON INFORMATION Name: RAJIV TOVAR PHYSICIANS Admitting Physician: Ezequiel MARTINEZ MD Attending Physician: Ezequiel MARTINEZ MD PCP: Alon Weber MD Discharge Diagnosis: Abdominal pain Comment: PATIENT EDUCATION INFORMATION Instructions: Medication Leaflets: Follow up: With: Address: When: Aiden IZQUIERDO [address], [address] [place] [address] Business (1) With: Address: When: Ezequiel [facility] [address], [place] [address] Within 2 weeks Type Location Start [facility] Follow Up [facility] 05/16/2020 1:00 PM 05/16/2020 1:15 PM [...] times a day. Refills: 0. Comment: Normal [facility] Main OR PACU I Recordon Main OR PACU I Record PACU Phase I Document Type FT Summary Primary Physician: Ezequiel MARTINEZ MD Finalized Date/Time: 04/29/20 12:13:51 Pt. Name: RAJIV TOVAR/Sex: 1995 Female Med Rec #: [id number] Physician: Ezequiel MARTINEZ MD Financial #: [id number] Pt. Type: O Room/Bed: / Admit/Disch: 04/29/20 [...] By: Belkys Yarbrough RN 04/29/20 12:[address] [facility] Main OR Preoperative Recordo n 04-29-2020 Main OR Preoperative Record Holding Area Document Type FT Summary Primary Physician: Ezequiel MARTINEZ MD Finalized Date/Time: 04/29/20 10:21:44 Pt. Name: RAJIV TOVAR/Sex: 1995 Female Med Rec #: [id number] Physician: Ezequiel MARTINEZ MD Financial #: [id number] Pt. Type: O Room/Bed: / Admit/Disch: 04/29/20 [...] By: Marielle Pineda RN 04/29/20 10:[address] [facility] Monitor Recordon 04-29-2020 Monitor Record [id number]# 1.00CD:[address] [facility] Outpatient Surgery Discharge Instructionon 04-29-2020 Outpatient Surgery Discharge Instruction [place] [id number] Patient Discharge Instructions PERSON INFORMATION Name: RAJIV TOVAR Date of : 1995 Current Date: 04/29/2020 11:04:47 PHYSICIANS Admitting Physician: Ezequiel MARTINEZ MD Discharge Diagnosis: Abdominal pain RAJVI TOVAR has been given the following list [...] Aiden IZQUIERDO [address], [address] [place] [address] Business (1) With: Address: When: [facility] [address] [place] [address] Within 2 weeks Type Location [facility] Follow Up [facility] 05/16/2020 1:00 PM 05/16/2020 1:15 PM Confirmed Pharmacy Information: Thank you for choosing [facility] HERE ARE THE MEDICATION CHANGES [...] Refills: 0. PATIENT EDUCATION INFORMATION Instructions: Normal [facility] Patient Education - Texton 1 06-29-2019 Patient Education - Text Normal [facility] Priority Order-Mitchell 2019 Priority Order-STAT Comment Invalid Interpretation Code [facility] Comment on above: Result Comment: Rece ived Performed at: [facility] [address] [place], [place] [id number] MD Indira Washington Performed By: #### 2 [id number], SARS-CoV-2, MARY #### [facility] [address] [place] [address] SARS-CoV-2, NAAon 04-23-2020 SARS-CoV-2 (COVID-19) RNA MARY+probe Ql (Resp) Not detected Invalid Interpretation Code Not Detected [facility] Comment on above: Result Comment: This nucleic acid amplification test was developed and its performance characteristics determined by [employer]. Nucleic acid amplification tests include PCR and [...] detected) result in this assay. Performed at: [facility] [address] [facility] [place] [id number] MD Indira Washington Performed By: #### 2 [id number], SARS-CoV-2, MARY #### [facility] [address] [place] [address] Ambulatory Clinical Summaryo n 04-20-2020 Ambulatory Clinical Summary {[id number]}CD:[id number] Normal [facility] Coding Summary.on 04-20-2020 Coding Summary. CODING DATE: 04/20/2020 FINAL [facility] STATUS: Home (Routine DC) PAYOR: [place] APC DESCRIPTION 5522 Level 2 Imaging without [...] Revised Date Saved: 04/20/2020 07:[address] [facility] Consent for Procedure/Surger yon 04-20-2020 Consent for Procedure/Surgery [id number] .00CD:[address] [facility] Gastroenterology Office/Clin ic Noteon 04-20-2020 Gastroenterology Office/Clinic Note Chief Complaint f/u to ER RUQ HPI Staff This is a 24 year old female who presents today for a follow up for an ED visit for RUQ pain. History of Present Illness 24 years old white female with no significant past medical history except for anxiety, referred to me from [facility] to be evaluated for right upper quadrant abdominal pain, she reports right upper quadrant abdominal pain, started 6 weeks ago, sporadic, moderate in nature except for the last time when it was severe for which she went to [facility], she had normal CBC, CMP and [...] 30 cap(s), Refills(s) 2, Pharmacy: [facility]/pharmacy #[id number], 168, cm, 04/20/20 10:06:00 EDT, Height/Length Dosing, 59.5, kg, 04/20/20 10:06:00 EDT, Weight Dosing EGD Endoscopy (Hospital Procedure) 2. Anxiety (F41.9: Anxiety disorder, unspecified) 3. Nausea (R11.0: Nausea) Ordered: omeprazole, 40 mg = 1 cap(s), Oral, Daily, # 30 cap(s), Refills(s) 2, [id number], cm, 04/20/20 10:06:00 EDT, Height/Length Dosing, 59.5, kg, 04/20/20 10:06:00 EDT, Weight Dosing EGD Endoscopy (Hospital Procedure) Follow-up With When Contact Information Ezequiel MARTINEZ MD Within 2 weeks [facility] [address] [facility], [place] [address]- Additional Instructions: Patient Education Abdominal [...] Family History Family history is negative Normal [facility] Comment on above: Result [...] directed by your caregiver. ? Only take rrsv-sjc-fncekvn or prescription medicines for pain, discomfort, or [...] Document Reviewed: 01/26/2009 ExitCare? Patient Information ?2013 [employer]. Family Medicine Abdominal Pain Abdominal pain can [...] directed by your caregiver. ? Only take kpjc-xfc-slvfenl or prescription medicines for pain, discomfort, or [...] Document Reviewed: 01/26/2009 ExitCare? Patient Information ?[address] [facility] Physician Orderon 04-20-2020 Physician Order [id number]# 1.00CD:[address] [facility] Physician Order [id number]#1. 00CD:[address] [facility] Auto Diffon 04-19-2020 Basophils/100 WBC (Bld) 0.6 % Normal 0.0-2.0 [facility] Comment on above: Order Comment: Order Added by Discern Expert. Performed By: #### 2 [id number] #### [facility] [address] [place] [address] Basophils/Leukocytes Auto (Bld) [Pure # fraction] 0.0 E9/L Normal 0.0-0.2 [facility] Comment on above: Order Comment: Order Added by Discern Expert. Performed By: #### 2 [id number] #### [facility] [address] [place] [address] Eosinophils/100 WBC (Bld) 0.2 % Normal 0.0-8.0 [facility] Comment on above: Order Comment: Order Added by Discern Expert. Performed By: #### 2 [id number] #### [facility] [address] [place] [address] Eosinophils/Leukocyt es Auto (Bld) [Pure # fraction] 0.0 E9/L Normal 0.0-0.5 [facility] Comment on above: Order Comment: Order Added by Discern Expert. Performed By: #### 2 [id number] #### [facility] [address] [place] [address] Lymphocytes/100 WBC (Bld) 34.4 % Normal 14.0-50.0 [facility] Comment on above: Order Comment: Order Added by Discern Expert. Performed By: #### 2 [id number] #### [facility] [address] [place] [address] Lymphocytes/Leukocyt es Auto (Bld) [Pure # fraction] 2.5 E9/L Normal 1.0-4.0 [facility] Comment on above: Order Comment: Order Added by Discern Expert. Performed By: #### 2 [id number] #### [facility] [address] [place] [address] Monocytes/100 WBC (Bld) 6.1 % Normal 4.0-14.0 [facility] Comment on above: Order Comment: Order Added by Discern Expert. Performed By: #### 2 [id number] #### [facility] [address] [place] [address] Monocytes/Leukocytes Auto (Bld) [Pure # fraction] 0.4 E9/L Normal 0.2-1.0 [facility] Comment on above: Order Comment: Order Added by Discern Expert. Performed By: #### 2 [id number] #### [facility] [address] [place] [address] Neutrophils/100 WBC (Bld) 58.7 % Normal 36.0-75.0 [facility] Comment on above: Order Comment: Order Added by Discern Expert. Performed By: #### 2 [id number] #### [facility] [address] [place] [address] Neutrophils/Leukocyt es Auto (Bld) [Pure # fraction] 4.2 E9/L Normal 2.0-7.5 [facility] Comment on above: Order Comment: Order Added by Discern Expert. Performed By: #### 2 [id number] #### [facility] [address] [place] [address] BMPon 04-19-2020 Creatinine [Mass/Vol] 0.8 mg/dL Normal 0.5-1.3 [facility] Comment on above: Performed By: #### 2 [id number] #### [facility] [address] [place] [address] Urea nitrogen [Mass/Vol] 12 mg/dL Normal 5-21 [facility] Comment on above: Performed By: #### 2 [id number] #### [facility] [address] [place], [place] [address] Urea nitrogen/Creatinine [Mass ratio] 15 No Units Normal 10- [facility] Comment on above: Performed By: #### 2 [id number] #### [facility] [address] [place] [address] Anion gap [Moles/Vol] 11 mmol/L Normal 6-16 [facility] Comment on above: Performed By: #### 2 [id number] #### [facility] [address] [place] [address] Calcium [Mass/Vol] 9.7 mg/dL Normal 8.9-11.1 [facility] Comment on above: Performed By: #### 2 [id number] #### [facility] [address] [place] [address] Chloride [Moles/Vol] 103 mmol/L Normal 101-111 [facility] Comment on above: Performed By: #### 2 [id number] #### [facility] [address] [place] [address] CO2 [Moles/Vol] 27 mmol/L Normal 21-31 [facility] Comment on above: Performed By: #### 2 [id number] #### [facility] [address] [place] [address] Glucose [Mass/Vol] 97 mg/dL Normal 55-199 [facility] Comment on above: Result Comment: If t his glucose result represents a fasting glucose, interpretation should refer to the following reference range: 55-99 mg/dL Performed By: #### 2 [id number] #### [facility] [address] [place] [address] Potassium [Moles/Vol] 3.5 mmol/L Normal 3.5-5.3 [facility] Comment on above: Performed By: #### 2 [id number] #### [facility] [address] [place] [address] Sodium [Moles/Vol] 137 mmol/L Normal 135-145 [facility] Comment on above: Performed By: #### 2 [id number] #### [facility] [address] [place] [address] CBC w/ Auto Diffon 10--202 0 Erythrocyte distribution width (RBC) [Ratio] 13.3 % Normal 10.9-14.2 [facility] Comment on above: Performed By: #### 2 [id number] #### [facility] [address] [place] [address] Hematocrit (Bld) [Volume fraction] 37.6 % Normal 34.0-46.0 [facility] Comment on above: Performed By: #### 2 [id number] #### [facility] [address] [place] [address] Hemoglobin (Bld) [Mass/Vol] 13.4 g/dL Normal 12.0-16.0 [facility] Comment on above: Performed By: #### 2 [id number] #### [facility] [address] [place] [address] MCH (RBC) [Entitic mass] 31.9 pg Normal 27.0-34.0 [facility] Comment on above: Performed By: #### 2 [id number] #### [facility] [address] [place] [address] MCHC (RBC) [Mass/Vol] 35.7 g/dL Normal 31.4-36.0 [facility] Comment on above: Performed By: #### 2 [id number] #### [facility] [address] [place] [address] MCV (RBC) [Entitic vol] 89.2 fL Normal 80.0-100.0 [facility] Comment on above: Performed By: #### 2 [id number] #### [facility] [address] [place] [address] Platelet mean volume (Bld) [Entitic vol] 9.4 fL Normal 6.4-10.8 [facility] Comment on above: Performed By: #### 2 [id number] #### [facility] [address] [place] [address] Platelets (Bld) [#/Vol] 219.0 E9/L Normal 150.0-500.0 [facility] Comment on above: Performed By: #### 2 [id number] #### [facility] [address] [place] [address] RBC (Bld) [#/Vol] 4.2 E12/L Low 4.3-5.9 [facility] Comment on above: Performed By: #### 2 [id number] #### [facility] [address] [place] [address] WBC corrected for nucl RBC Auto (Bld) [#/Vol] 7.2 E9/L Normal 4.0-11.0 [facility] Comment on above: Performed By: #### 2 [id number] #### [facility] [address] [place] [address] Consent for Treatmenton 03-25 Consent for Treatment [id number]#1 .00CD:[address] [facility] Discharge Instructionson Discharge Instructions [id number]# 1.00CD:[address] [facility] ED Clinical Summaryon 2019 ED Clinical Summary [address] [id number] ED Clinical Summary Person [facility] Age[facility] 24 Years : 1995 Sex: Female Language: Czech PCP: Alon Weber MD Marital Status: Single [...] 08:58:55 04/19/2020 08:58:55 04/19/2020 08:58:55 ADDRESS: [address] [facility] [place] [id number] PHYS DOC NOTES: Addendum by Laureano Phillip DO on April 19, 2020 08:26:02 EDT MEDICAL INFORMATION: Prescriptions Given: New Medications [id number], [address], [place] [id number], [phone] dicyclomine (dicyclomine 20 mg Tab) 1 Tablets By Mouth 3 times a day for 7 Days. Refills: 0. ondansetron (Zofran ODT 4 mg Tab) 1 Tablets By Mouth 3 times a day. Refills: 0. PATIENT EDUCATION INFORMATION: Instructions: Cholelithiasis Follow up: With: Address: When: [facility], [address] [place] [address] Business (1) In 3 days 04/22/2020 DIAGNOSIS: 1:Abdominal pain; Biliary colic; Gall stone; Nausea Normal [facility] ED Note-Nursingon 04-19-2020 ED Note-Nursing Report received from Zacarias Cuevas RN. Patient resting on cart. Updated on plan of care. Denies any needs at this time. Call light in reach. Normal [facility] ED Note-Physicianon 04-19-20 ED Note-Physician Basic [...] Diagnosis: Abdominal pain, cholelithiasis, biliary colic Normal [facility] Comment on above: Result [...] medicine. HOME CARE INSTRUCTIONS ? Only take ieep-sai-cbklxhj or prescription medicines for pain, discomfort, or [...] Document Reviewed: 12/02/2013 ExitCare? Patient Information ?2015 [employer]. This information is not intended to replace advice given to you by your health care provider. Make sure you discuss any questions you have with your health care provider. Normal [facility] ED Patient Summaryon 020 ED Patient Summary [address] [id number] Patient Discharge Instructions Person Information Name: RAJIV TOVAR Age: 24 Years Arrival Date: 04/19/2020 06:10:12 Discharge Diagnosis: 1:Abdominal pain; Biliary colic; Gall stone; Nausea Primary Care Physician: Alon Weber MD Provider Information Primary Provider: Susana Belcher M.D. Advanced Director Of Oncology:None The exam and treatment you received in the Emergency Department were for an urgent problem and are not intended as complete care. It is important that you follow up with a doctor, nurse practitioner, or physician?s curriculum assistant for ongoing care. If your symptoms become worse or you do not improve as expected and you are unable to reach your usual health care provider, you should return to the Emergency Department. We are available 24 hours a day. RAJIV TOVAR has been given the following list of patient education materials, prescriptions and follow-up instructions: Follow-up Instructions: With: Address: When: [facility], [address] [place] [address] Business (1) In 3 days 04/22/2020 In the event that this physician does not participate in your insurance network, please consult with your insurance company to find a nearby participating provider. Patient Education Materials: Cholelithiasis A MESSAGE TO ALL PATIENTS REGARDING OPIOIDS PRESCRIPTION OPIOIDS: WHAT YOU NEED TO KNOW Prescription opioids can be used to help relieve vzqvbhzp-xa-wuuktd pain and are often prescribed following a [...] be struggling with addiction, tell your health animal care assistant and ask for guidance or call [facility]?S National Helpline at 2-941-2 (more content not included)... Normal [facility] Hep Func Panelon 04-19-2020 Bilirubin.indirect [Mass or moles/Vol] UTC Abnormal 0.1-0.9 [facility] Comment on above: Result Comment: Resu lt verified by Discern Rule. Performed result UTC (Unable to Calculate) was sent as an Alpha code due the inability to calculate a valid numeric value. Performed By: #### 2 [id number] #### [facility] [address] [place] [address] Albumin [Mass/Vol] 4.3 g/dL Normal 3.3-5.0 [facility] Comment on above: Performed By: #### 2 [id number] #### [facility] [address] [place] [address] Albumin/Globulin (S) [Mass conc ratio] 1.5 Normal 1.1-2.2 [facility] Comment on above: Performed By: #### 2 [id number] #### [facility] [address] [place] [address] ALP [Catalytic activity/Vol] 77 Int._Unit/L Normal 21-98 [facility] Comment on above: Performed By: #### 2 [id number] #### [facility] [address] [place] [address] ALT No additional P-5'-P [Catalytic activity/Vol] 59 Int._Unit/L High 6-46 [facility] Comment on above: Performed By: #### 2 [id number] #### [facility] [address] [place] [address] AST [Catalytic activity/Vol] 36 Int._Unit/L Normal 5-43 [facility] Comment on above: Performed By: #### 2 [id number] #### [facility] [address] [place] [address] Bilirubin [Mass/Vol] 0.4 mg/dL Normal 0.0-1.1 [facility] Comment on above: Performed By: #### 2 [id number] #### [facility] [address] [place] [address] Bilirubin.direct [Mass/Vol] mg/dL Normal 0.1-0.4 [facility] Comment on above: Performed By: #### 2 [id number] #### [facility] [address] [place] [address] Globulin (S) [Mass/Vol] 2.8 g/dL Normal 1.4-4.0 [facility] Comment on above: Performed By: #### 2 [id number] #### [facility] [address] [place] [address] Protein [Mass/Vol] 7.1 g/dL Normal 6.0-7.8 [facility] Comment on above: Performed By: #### 2 [id number] #### [facility] [address] [place] [address] Lipase Levelon 04-19-2020 Lipase [Catalytic activity/Vol] 43 U/L Normal 13-58 [facility] Comment on above: Performed By: #### 2 [id number] #### [facility] [address] [place] [address] PT & PTTon 04-19-2020 aPTT Coag (PPP) [Time] 30.2 second(s) Normal 25.1-36.5 [facility] Comment on above: Result Comment: Hepa rin therapeutic range (represented by Anti-Factor Xa activity of 0.2 - 0.4 U/mL) corresponds to PTT of 56.6 - 109.0 sec. Performed By: #### 2 [id number] #### [facility] [address] [place] [address] INR Coag (PPP) [Relative time] 1.0 {INR} Invalid Interpretation Code [facility] Comment on above: Result Comment: INR results are specifically intended to assess patients stabilized on long-term Anticoagulation therapy suggested INR?s ?Less Intensive Anticoagulation? 2.0 ? 3.0 Conventional Range 3.0 ? 4.5 Performed By: #### 2 [id number] #### [facility] [address] [place] [address] PT Coag (PPP) [Time] 11.8 second(s) Normal 10.2-12.9 [facility] Comment on above: Performed By: #### 2 [id number] #### [facility] [address] [place] [address] Prescriptions/Work Noteson 1 Prescriptions/Work Notes [id number]# 1.00CD:[address] [facility] U BetaHcg Qualon 04-19-2020 HCG.beta subunit (U) [Moles/Vol] Negative Normal [facility] Comment on above: Performed By: #### 2 [id number] #### [facility] [address] [place] [address] UA With Cult Reflexon 2019 Bacteria LM Ql (Urine sed) TRACE Normal Trace [facility] Comment on above: Performed By: #### 2 [id number] #### [facility] [address] [place] [address] Bilirubin Ql (U) Negative Normal Negative [facility] Comment on above: Performed By: #### 2 [id number] #### [facility] [address] [place] [address] Clarity (U) CLEAR Normal Clear [facility] Comment on above: Performed By: #### 2 [id number] #### [facility] [address] [place] [address] Color (U) YELLOW Normal Yellow [facility] Comment on above: Performed By: #### 2 [id number] #### [facility] [address] [place] [address] Crystals LM Ql (Urine sed) Present Normal [facility] Comment on above: Performed By: #### 2 [id number] #### [facility] [address] [place] [address] Epithelial cells.squamous LM.HPF (Urine sed) [#/Area] 3-4 Normal 0-2 [facility] Comment on above: Performed By: #### 2 [id number] #### [facility] [address] [place] [address] Glucose Test strip (U) [Mass/Vol] Negative Normal Negative [facility] Comment on above: Performed By: #### 2 [id number] #### [facility] [address] [place] [address] Hemoglobin Ql (U) TRACE Abnormal Negative [facility] Comment on above: Performed By: #### 2 [id number] #### [facility] [address] [place] [address] Ketones (U) [Mass/Vol] Negative Normal Negative [facility] Comment on above: Performed By: #### 2 [id number] #### [facility] [address] [place] [address] [place].plasma/Lithi um.RBC (Bld) [Mass ratio] 0-3 Normal 0-3 [facility] Comment on above: Performed By: #### 2 [id number] #### [facility] [address] [place] [address] Nitrite Ql (U) Negative Normal Negative [facility] Comment on above: Performed By: #### 2 [id number] #### [facility] [address] [place] [address] pH (U) 6.5 [pH] Invalid Interpretation Code 5.0-9.0 [facility] Comment on above: Performed By: #### 2 [id number] #### [facility] [address] [place] [address] Protein (U) [Mass/Vol] Negative Normal Negative [facility] Comment on above: Performed By: #### 2 [id number] #### [facility] [address] [place] [address] Specific gravity (U) [Rel density] 1.025 Invalid Interpretation Code 1.005-1.030 [facility] Comment on above: Performed By: #### 2 [id number] #### [facility] [address] [place] [address] UA Spec Desc Clean Catch Normal [facility] Comment on above: Performed By: #### 2 [id number] #### [facility] [address] [place] [address] Urobilinogen Qn (U) 0.2 {Arnie'U}/dL Normal 0.0-1.0 [facility] Comment on above: Performed By: #### 2 [id number] #### [facility] [address] [place] [address] WBC Auto Ql (U) Negative Normal Negative [facility] Comment on above: Performed By: #### 2 [id number] #### [facility] [address] [place] [address] WBC LM.HPF (Urine sed) [#/Area] 0-5 Normal 0-5 [facility] Comment on above: Performed By: #### 2 [id number] #### [facility] [address] [place] [address] US Abdomen, Limitedon 2019 US Abdomen, Limited [...] M.D. Transcribed by: OLGA Technologist: RENETTA Kaplan [facility] eGFRon 04-19-2020 GFR/1.73 sq M.predicted among blacks MDRD (S/P/Bld) [Vol rate/Area] mL/min/{1.73_m2} Normal >=59 [facility] Comment on above: Order Comment: Order added by Discern Expert. Result Comment: eGFR is race adjusted. AA=. Performed By: #### 2 [id number] #### [facility] [address] [place] [address] GFR/1.73 sq M.predicted among non-blacks MDRD (S/P/Bld) [Vol rate/Area] mL/min/{1.73_m2} Normal >=59 [facility] Comment on above: Order Comment: Order added by Discern Expert. Result Comment: Hoseman bib kidney disease could be indicated at eGFR's of less than 60 mL/min/1.73m2. Kidney failure is indicated at less than 15 mL/min/1.73m2. Performed By: #### 2 [id number] #### [facility] [address] [place] [address] Encounters Encounter Date Encounter Type Care Provider [...] DERM [address] [place] [phone] My Singh MD [address] [place], [place] [id number] [facility] Start: 08-22-2023 End: 08-22-2023 Patient encounter procedure 08/22/2023 11:50 AM EST Office Visit [facility] [address] [address] Flynn Archibald, DO [address] [place] [address] [place] [address] [facility] Payers Date Payer Category Payer Unknown [id number] 1995 Unknown [id number] 2.16.84 [id number] 1995 Unknown [id number] 2.16.84 0.1.504835.3.579.2.593 1995 Unknown [id number] 2.16.84 0.1.051621.3.579.2.593 1995 Unknown [id number] 2.16.84 0.1.906138.3.579.2.593 1993 Unknown [id number] 2.16.84 0.1.566117.3.579.2.593 1993 Unknown [id number] 2.16.84 0.1.537692.3.579.2.1259 1993 Unknown [id number] 2.16.84 0.1.918543.3.579.2.1259 1993 Unknown [id number] 2.16.84 0.1.938195.3.579.2.1259 1993 Unknown [id number] 2.16.84 0.1.530905.3.579.2.1259 1993 Unknown [id number] 2.16. 840.1.192612.3.579.2.196 1995 Unknown [id number] 2.16. 840.1.129352.3.579.2.196 1995 Unknown [id number] 2.16. [id number] 1961 Unknown [id number] Social History Date Type Detail Facility Tobacco smoking stat [facility] Tobacco smoking consumption unknown [facility] Start: 1995 Sex Assigned At Not on file [facility] Start: 08-08-2023 Gender identity Not on file [facility] Start: 08-08-2023 Tobacco smoking stat [facility] Never smoked tobacco [facility] Start: 08-08-2023 Tobacco use and exposure Smokeless t obacco non-user [facility] Start: 08-08-2023 History of Social function [facility] History of Present illness Narrative 08-08-2023 [...] to proceed. CC: Dr. Alon Weber [facility] Consultation note 07-18-2021 Note Date & [...] like to proceed. CC: Dr. Alon Weber [facility] Signed and Approved by: DR AKASH MARTINEZ . 07/25/2021 08:02:00 [facility] Clinical Note 02-28-2021 Note Date & Type Note Facility 02-28-2021 Note Infectious Disease COVID-19: How to Protect Yourself and Others Know how it spreads ? There is currently no vaccine to prevent coronavirus disease 2019 (COVID-19). ? The best way to prevent illness is to avoid being exposed to this virus. ? The virus is thought to spread mainly from ccxwwk-mz-aemmnu. ? Between people who are in close [...] are not readily available, use a hand correctional supervisor that contains at least 60% alcohol. Cover [...] at higher risk of getting very sick.www.cdc.gov/coronavirus/2019-ncov/n tjk-nctzq-mlcgrqaflip/jmtugl-du-zpxkdu-r isk.html Cover your mouth and nose with [...] available, clean your hands with a hand correctional supervisor that contains at least 60% alcohol. Clean and disinfect ? Clean AND disinfect frequently touched surfaces daily. This includes tables, doorknobs, light switches, countertops, handles, desks, phones, keyboards, toilets, faucets, and sinks. www.cdc.gov/coronavirus/2019-ncov/preven u-kpzhuac-htze/wuhmjpyfmrhl-uneb-wvfl.ht ml ? If surfaces are dirty, clean [...] 10/06/2019 Document Revised: 12/31/2019 Document Reviewed: 12/31/2019 [employer] Patient Education ? 2019 [employer]. COVID-19 Frequently Asked Questions COVID-19 (coronavirus disease) is an infection that is caused by a large family of viruses. Some viruses cause illness in people and others cause illness in animals like camels, cats, and bats. In some cases, the viruses that cause illness in animals can spread to humans. Where did the coronavirus come from? In May 2019, [place] told the World Health Organization (WHO) of several cases of lung disease (human respiratory illness). These cases were linked to an open seafood and livestock market in the city of [place]. The link to the seafood and livestock [...] naming World Health Organization (WHO): www.who.int/emergencies/diseases/novel-c oronavirus-2019/technical-guidance/joe moorel-hij-ubrdiexsuov (more content not included)... [facility] History and physical note 05-05-2020 Note Date & Type Note Facility 05-05-2020 Note [id number] #1.00CD:127 [facility] History and physical note 05-02-2020 Note Date & Type Note Facility 05-02-2020 Note [id number] #1.00CD:127 [facility] Evaluation note Note Date [...] section and content) DATE CREATED AUTHOR 03/05/2021 [facility] DATE CREATED AUTHOR AUTHOR'S ORGANIZ ATION 04/10/2021 [facility] DATE CREATED AUTHOR AUTHOR'S ORGANIZ ATION 07/02/2022 [facility] DATE CREATED AUTHOR AUTHOR'S ORGANIZ ATION 10/21/2023 [facility] dical [facility] DATE CREATED AUTHOR AUTHOR'S ORGANIZ ATION 01/18/2024 [facility] Reason for Visit (unrecogniz ed [...] BE BASED ON THE PRIMARY CLINICAL RECORDS. [facility]. provides no warranty or guarantee of the accuracy or completeness of information in this document.
[2024-02-17 08:44] LABS: HCG Qualitative NEGATIVE (NEGATIVE); Internal Control Within Normal Limits
[2024-02-17 09:07] VITALS: BP 132/92; PULSE 107; TEMP 36.6; O2SAT 98
[2024-02-17] MEDS: BUPIVACAINE HCL 0.25% PF 25 MG/10 ML VIAL INJ (09:29)
[2024-02-17] MEDS: LIDOCAINE HCL 2% 400 MG/20 ML MDV 15 ML INJ (09:30)
[2024-02-17 09:31] VITALS: BP 114/75; BP 121/79; PULSE 93; PULSE 94; O2SAT 100; O2SAT 99
--- NOTE | 2024-02-17 09:32 | W.PM.PROCNOT ---
Date of procedure: 02/17/24 Pre-op diagnosis: Pain due to lumbar spondylosis without myelopathy Post-op diagnosis: same as pre-op Procedure: Procedure: Bilateral L4-5, L5-S1 medial branch block Medications: Bupivacaine 0.25% 6cc The patient was seen and examined in the preoperative holding area.? An informed consent was obtained and placed on the chart.? The patient was brought to the medical procedure unit and placed in the prone position.? A timeout was completed verifying correct patient, procedure site, positioning, plan, and special equipment.? Using aseptic technique, the needle was placed at left L4. Under direct fluoroscopic visualization a Quincke-tipped spinal needle was advanced to the junction of the superior articulating process with the transverse process at the designated medial branch segment.? Preceded by negative aspiration, the above-mentioned injectate was placed in 1 mL aliquots.? The procedure was repeated at left L5, S1.? The needle was removed and insertion site was covered. The same procedure, at the same levels, was completed on the right side. The patient was taken to the postprocedural recovery area and monitored for an appropriate length of time before found suitable for discharge in the company of a responsible adult. Anesthesia: Local Surgeon: Harley Maldonado Pathology: none sent Condition: stable Disposition: no change
== END 2024-02-17 09:36 | disposition home or self-care (01) ==
LOC: SURGOUT 08:11
PROVIDERS: PCP Family Medicine; Visit Provider Anesthesiology
DX: M47.816 Spondylosis without myelopathy or radiculopathy, lumbar region (principal)
CPT/HCPCS: 36415; 64493; 64494; 84703; J0665

== ENCOUNTER 2024-02-19 09:45 | Outpatient (OUT) | payer BC, SELFPAY ==
--- OUTSIDE RECORDS SUMMARY | 2024-02-19 10:03 | XMS_ITS | CCD ---
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 Name Role Phone MICHELLE, DR AKASH Murray [...] HYDROcodone Drug Allergy 5 The [facility] Repository (2 sources) oxyCODONE Drug Allergy 5 The [facility] Repository (2 sources) Penicillins Drug allergy (disorder) 5 The [facility] Repository (3 sources) Acetaminophen / HYDROcodone Drug Allergy 4 Unknown [facility] (3 sources) HYDROcodone Drug Allergy 4 Hives [facility] Work Phone: (3 sources) oxyCODONE Drug [facility] 4 [facility] Penicillin G Drug Allergy 4 [facility] (3 sources) Penicillin G sodium Allergy to substance 4 Rash [facility] (3 sources) Penicillins Drug Allergy 4 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] Onset: 09-05-2021 Episodic Other upper respiratory infections (1 source) Acute upper respiratory infection, unspecified; Translations: [ACUTE UP RESPIRATORY INFECTION UNS] Onset: 09-05-2021 Episodic Unclassified (1 source) COUGH, UNSPECIFIED; Translations: [COUGH, UNSPECIFIED] Onset: 09-03-2021 Results Test Name Value Interpretation Reference Range Facility Covid-19 PCR ([facility])on 08-22 SARS-CoV-2 (COVID-19) RNA MARY+probe Ql (Unsp spec) Not detected Normal NOT DETECTED The [facility] Comment on above: Result Comment: This test is not yet approved or cleared by the [place] FDA. When there are no FDA-approved or cleared tests available, and other criteria are met, FDA can make tests available under an emergency access mechanism called an Emergency Use Authorization (EUA). The EUA for this test is supported by the Film Or Tape Librarian of Health and Human Service's (HHS's) declaration [...] SARS-CoV-2. Performed By: #### C [facility] #### [facility] Laboratory [address] [place] [address] Dr. Karlos Augustin GROUP A STREP CULTUREon 08-22 S. pyogenes Ag Ql (Unsp spec) Culture Observations: NEGATIVE FOR GROUP A STREPTOCOCCUS. Normal The [facility] Comment on above: Performed By: #### S ДМИТРИЙ GRASTCX #### [facility] Laboratory [address] [place] [address] Dr. Karlos Augustin INFLUENZA A AND B AGon 09-03 INFLUANEGH SEE BELOW Normal The [facility] Comment on above: Result Comment: Nega tive for Flu A protein angiten. Infection due to Flu A cannot be ruled out. Flu A angiten in the sample may be below the detection limit of the test. Performed By: #### I NFLUAB #### [facility] Laboratory [address] [place] [address] Dr. Karlos Augustin INFLUBNEGH SEE BELOW Normal [facility] Comment on above: Result Comment: Nega tive for Flu B protein antigen. Infection due to Flu B cannot be ruled out. Flu B antigen in the sample may be below the detection limit of the test. Performed By: #### I NFLUAB #### [facility] Laboratory [address] [place] [address] Dr. Karlos Augustin INFLUENZA A AG Negative Normal NEGATIVE SEE COMMENT The [facility] Comment on above: Performed By: #### I NFLUAB #### [facility] Laboratory [address] [place] [address] Dr. Karlos Augustin INFLUENZA B AG Negative Normal NEGATIVE SEE COMMENT The [facility] Comment on above: Performed By: #### I NFLUAB #### [facility] Laboratory [address] [place] [address] Dr. Karlos Augustin INTERNAL CONTROLS Within Normal Limits Normal Wi thin Normal Limits The [facility] Comment on above: Performed By: #### I NFLUAB #### [facility] Laboratory [address] [place] [address] Dr. Karlos Augustin STREPT SCREENon 09-03-2021 STREP SCREEN A Negative Normal NEGATIVE The [facility] Comment on above: Performed By: #### S ДМИТРИЙ GRASTCX #### [facility] Laboratory [address] [place] [address] Dr. Karlos Augustin PREG HCG QUALon 08-01-2021 , QUAL Negative Normal NEGATIVE The [facility] Comment on above: Performed By: #### P REG #### [facility] Laboratory [address] [address] [address] Karlos Augustin PREG HCG QUALon 07-04-2021 , QUAL Negative Normal NEGATIVE The [facility] Comment on above: Performed By: #### P REG #### [facility] Laboratory [address] [facility]BD[facility]EN AND PELVIS W IV CONTRAST [facility] Department of Radiology [address] [place] [address] Patient Name: RAJIV TOVAR : 1995 Sex: F Age: Race: White Pt. Location: [facility] Patient Status: D Ordered Date: 03/21/2021 4:00:00 PM Completed Date: 04/05/2021 03:49 PM Requesting Provider: ДМИТРИЙ CALLAHAN Attending Provider: ДМИТРИЙ CALLAHAN Report Copy To: ALON WEBER Signs & Symptoms: R10.31 Right lower quadrant pain I10 History: Josefa Is patient on meds for HTN or DM? 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 Per [employer] [place] 49[address] Ref#[id number] Med Nec-Passed *SLA Comments: Exam: CT ABDOMEN [...] Electronically signed: Noemy Stanley M.D.. Transcribed by: [email or web address], User Resident: Electronically Signed by: NOEMY STANLEY @ 04/07/2021 01:25 PM Normal The [facility] CHEST 2 [facility] 03-21-2021 [facility] CHEST 2 [facility] Department of Radiology [address] [place] [id number] Patient Name: RAJIV TOVAR : 1995 Sex: F Age: Race: White Pt. Location: [facility] Patient Status: D Ordered Date: 03/21/2021 2:25:00 PM Completed Date: 03/21/2021 02:22 PM Requesting Provider: ДМИТРИЙ CALLHAAN Attending Provider: Report Copy To: Signs & Symptoms: R07.81 Pleurodynia I10 History: Josefa Comments: right ribs pain Exam: [facility] CHEST 2 VWS [facility] CHEST 2 VWS 03/21/2021 2:22 PM CLINICAL [...] disease Electronically signed: Cyril Olivo. Transcribed by: [email or web address], User Resident: Electronically Signed by: CYRIL OLIVO @ 03/22/2021 02:39 PM Normal The [facility] Comment on above: Order Comment: right ribs pain Coding Summary.on 03-03-2021 Coding Summary. CD:[id number] G h0bWw+PGhlYWQ+NS6HQAI wU22lxRQbtX9IU9bILR4M VJJVNBMVGS4GDP7guKD5V HuvW8ZqyoVj SfomeCUeAE97QLh9BIL9e RvoPQgprM3fjNPoF5k9Lb EuXG19xD66MKqxGAMzHzS 3LjZpbjsgbWFy O5msFjEfpLKdZkx+PHRhY mxlIHdpZHRoPScxMDAlJy WpfUarOI5gUa2uQKUbIGR vbGxhcHNlOiBj a0vmSVDkGDmwVS1gzQxdX 9OnqFZ0DMCac9e0Ma54mC I+JPXmCVB8uYecWIkcu40 5KyOkf5ooOTR4 lKXySZatSAK6G68br2F5V OJfAAPqNVZ2xRZ3fL1gwK yfgcllD8OwnNIfDsL6NRH 8nIExtS9anTbq dxdlnQ7qWfs+B62LRO1EP YWTQB3XAiv7R3DoGgjidG I+SJ21XGTiBY52lTLupYJ xs1uzgEp1PhGn JZVxMML8oGhsSNpyc9HpZ WWdC32qiINlx6E6RPTrkH soeTGdOsOxyKH9yE1lXMc wqhrbd2qbxivh Gdfwv2qaqb63eM54I47mG TxaDABqAGD4QVUtXVTbaM dfyg6qxX3gYm0+QBfrw6x xw0nucSm7GcVv JDNwkzMctDxvIVC5k4NcS o61O9QjlAkip2XmQvv1jj 21iLUjs3U9lQF9FWrmKBC vnN1vDNwuYsH0 MRHqOePmfU65nASgYNzzK j1uoTxuzNuhKX8zUGFazo cuQCMybH6nXNKfqJWpoVe qNM9oKFDhrkba d804BiHmZXI2QRCmvBVmM 7JxzP7fScJfBJWmCQBbC8 JcaBAkRAlsK968UMfjBnW 6EMPfquJcY1Uh NUHrsMafMzX3x4G7La9Vo 6ByztxlSEP2MGpaJVU6Mg YgPuGgNnG0F7PsFsr4OQL heHcoMB9vT4Pi SSOwbxyqkucgfJZ3YMFmE HUsqU45wBUaEYqhOy0bk4 V6d607JHOmYKTftU08Yk1 udDogMTBwdCBU hU1folfrx9ggoxygPkIjO CQqFRb6WIt9SGYoxIdpOx AcHAV6QvS6GTL3zGLnvT8 qxFnmdbxarH0y Oyc+Q23euN5qPAP9PQW5f eqzFOMnuzAuOF62IP42Y0 RyPjwvdGFibGU+PGRpdiB pkIgwOF5tXtOr u2enb3DeCFhpF1TnXQMpR DnkOsj5IGIgJKN1fKP9oQ 6zTNZeAGwzi6Y3dGN9Z4F vsiYmai0wn8nx RJApCXxwB98wyMBae2W7E OLarYS2GULzmVfdDxXtmO 93Oyc+VQTmuTwmm0ZzJgn qq0adr9olwWp5 WiOqNWClpzCqyJjdCHA6h 0PgJu25V55wGMxhCHHpVA SlDOLhYZIokYsplr3ooU4 wIi8+PGNvbCB3 iGK8qC6rMRLmWgS3AUbiJ 416PaBslRMjUjenn9iwt5 rdwZx5JxOiDVLgrvNnyVq tJJZ5b5TcOd25 S32sENdzASEqTAIqVDCsE VHegAixiy6nzW2bAy6+PC 3hw7kuju94kZ08lNR+PHR rQCU5rOjzZDzs QYXeyJ4kXPmpOrF4MEVxT wQbrV82oWGpDQozDb0hnF lpfWpdWA6mGYMolvqgx41 2RrTux2ruHXUs cCNaCWwpYPR8I80if6S0J OIfMXGkVDI0iMG0lG3eeX lnbjogbGVmdDsgdmVydGl nKVvzMYrbW486 IHRvcDsnPlBhdGllbnQgT qWoIAs8J2NcUjm2OKWvdG qfDA1wrWByOKvnMq1imSh emTyhLY7uIHOw jxhnw740ZbJwa1zqQFAwo WRbMSwkIEO3Q53zr3W9CM NyECTfBAQ3kRK9sH6idVw nbjogbGVmdDsg lzKytNiuNBpkNThpG829M HRvcDsnPkJpcnRoIERhdG T7AL44DI89qAOcz0B6yKL 6X1KtLUFhgzgk yozqiEO7OYVsBQWqrW60T m4uaFxxZr8zRLFkFLY4XB LpiYBeJ5RlxP1wEgNpJEU sBGZzG4AqiKQb EQfxX156JEkgLqN2CGNbt hEuV8VfKOWgqHbrIoC7c5 T5Tr8MS2C5PJ38JA39mWK kd7L0mLJ6O3Mr YVTxecowtpywxQZ3DFVpA LXfvL77Nq3coQsmCf9kEF PnYPY0LNKoxWEsC7ComC5 yOiAjMDAwMDAw I0LxzBIfDQdgL764VKibG zB2SRJhqsJbN4NkBBIlaT wzUzJ1z2E2Jr7JSNg5DE3 3VS35eFAtg4K5 wIC8U5WgFXGgosagnwnhx ZU6IKFtQKDvtO19Aw9rlF jeUy8vEMDjHLF2YIOjyQW lS6DiiF1qSxGz SIHwZGInQ9JvtIKaRGcaW 099YHifJoO5TCOnqvJkK1 IiILUmkAayHzK7l8G6Yi3 TEUFdBL97UDR7 zYJ8EQ89ZJ79R7LxEkxgg GFibGU+PHRhYmxlIHdpZH RoPScxMDAlJyBzdHlsZT0 mNi1mWFRfPYKt lVczfGDrCeFms0tzTVVwU DnpWB9jdQawD9IhnLS6ZE Gio4u0Dn71J61tC4PzdED +KQFwgQO5dAL6 zA0vTsKwOgU6LVvfJ044L tBitNRdJgsmq9vll3fbhV n9LdP8GVMwdfBphEboVMD 9q2RqPu06T26y IHdpZHRoPSIxNSUiIHZhb Yrwjc9qjW5nIw2+PGNvbC W7hXS7nB9qHjZcDmA0LBg rA009WpFzuBWf Laidq5oqt3bljFx3BrZnP VOcuyAntUlyGCL9v6EvEw 57G4XulTxzp3XqRab0ep9 9dDEyl2T7lOV8 S2XpPVBfbirtqDBqcEliY F3nEZBikeimTZXefP0eBB VbL7v1GuNyUhY8VEzbZ1H lisX5STXrcJNa XEfpTWD6G35kd8W5ITBxO VPvANK8qNH9xY6zkFdxsh ogbGVmdDsgdmVydGljYWw nNTsqC825SEGs wTczALGbuX3iDPCbkNIts WgiXK9uVJGgooooChTBFZ UVMOFKZAoCM2G9V2GhOwd 9HEZfqTtnTU7z zHXiCWvlWa6hvQglzXfzI C9rIQCujyypLXYxvS3tJW OauQKpfQtyZW5qNZKafmq os501KcSkPUP2 ZGHszJLcP0YohF2sOqMkK NXuLNMoU2TrbQTdHTqoV4 90QXfgHyU9EIFuvmZhY9H sLWFsaWduOiB0 t2L5Is1zVN4yZm6uHEdqF Z61VU52bIAus9B4uOI3L9 JyCVJfamogrvyteTO9AXQ cXOEjqF53yVZu MUziPm5dt1A7q929NBJmI IEqvN19Ds9ahJaqJJJrdL NXxP9mpnxri8vyvcwrQiC mZSNwIRp2JTt7 NIXboJdhHdSwOQP4AsS5Z VH1cOAoyB2reGgsjhzqpM 9wOyc+NsnqZQOnjwW4O9O sEds6MLPhnBne DN9mlILqBXptDx4brSzeh XwlXB0dDRDmivhsUELanA 1bBEWxrZNqtXivSY8oKQZ gehxxb362PmId JPC5GXLlsUNeN2IysQ3wD lSvNDBfCZNqD0PyqSMfLK qjM731UAxiOpW1YROzujP sT7QcUSEneLej TnF3x2S8Lf0CJO9btMX9Z 7KjYkr5DHOozKhrQR1kcR BdBPwzUp6qxUzrgGbaPV8 wNTBpbjtwYWRk dY3rINSywGVwwPrkXW4fH OEufbuzc255PcBrTPH9CC GmmFNqI6ShvR9nAdWaVZJ xCNYdC6KgvZLm VDvtC238YQbbYwH0MKDcc iBhH4NtOGGrjCrtOlZ8w5 K4Xe3VvJOzM8EpX1v8C6L kPjwvdHI+PC90 MQYsOF48zROhgPVbt8ssk Yf0JrEoSFZaJJA3bPxoCM jbr4QvELFwT43vbKNef8M 6IGNvbGxhcHNl XdBiaRP0rH3eEBbukclir 0lvgqpeDysoi8iolj89qM 64L95iDTgcQDAfVEAzRUC aQDGnlTzuzt1g qR3zMj7+OHWpkAM2aVM1f M7hOlOuQvB2IMxvW746Fz VtbVMxFuavc0pdb9mgrWi 9IjIwJSIgdmFs tPvuRDE5t8UvZk84P29lB HdpZHRoPSIyMCUiIHZhbG mzxu0mgW4bVn0+ZT0pw4l xmh36xK30xGW+ QDWmEWL9aFysVAmfUNBjp H9jZNykMwE5KASiMhGvjI 34lHPpMHvsPa5zbAcrgYq zYI8sFYLfujkb i509AlEmf8nyJHUqaRGnR BihTDH5P48ve1P4XXTrRS IaNZK9sDL8gD6niTdmynf gbGVmdDsgdmVy fOrjBHgzUHkpW041CZGtz LwnAkWfeOBnR3beimLIJE 1lOjwvdGQ+RPHbRSO1pVw wBBmyFVKlaO0r CLVuR5f9HtShAkS8TJnsS 6OyceY2ZTTfqCIcGOShdM PXrJ7fppiup6aslvzrMoP bJHVfOHu8LEq9 HFGofEfrZxDwVMJ1XcC6R XB0vBSprY6edMjiwifagO 9wOyc+RklOOjwvdGQ+PHR bPPJ3wGkkPXnh VRTiuJ2gXZDhR5h7SvHiN oC8JGlzN0KpvoR0TKNhoC DoHLXkbSRVnO3hjwrwg5a vcjogIzAwMDAw ASj6GOt7MEEoqVfdIvAnA XP4PiB6EPD1jJCovJ2hlC xtvctzdE2nHbc+TVJOOjw vdGQ+PHRkIHN0 xVqhOQauHQAwpX0pRTQsL 8a9PbInUyS3UCgbD9Keov G3YKGahYIyEPDaoKVZgR3 zaxfis6evmqgv CwAhEUGxNQm4WGf8WVDmr RvjEiAaTJZ2FgQ8YTI3bY CxyT8jlFvwlrhrmU8wWfr +BPZ5XQA5VP09 LM79Q4QdDxtqbMGfgEL+P HRhYmxlIHdpZHRoPScxMD WgYgWaoTqiJL2oPy0gBBJ yLWNvbGxhcHNl OiBj (more content not included)... Normal [facility] Auto Diffon 02-28-2021 Basophils/100 WBC (Bld) 0.4 % Normal 0.0-2.0 [facility] Comment on above: Order Comment: Order Added by Discern Expert. Performed By: #### 2 854293, 7358451, 46350374, 77052887, 43175308, 76364312, 2922550, 7965305, 5989818, 2446469 ####[address] [place] [address] Basophils/Leukocytes Auto (Bld) [Pure # fraction] 0.0 E9/L Normal 0.0-0.2 [facility] Comment on above: Order Comment: Order Added by Discern Expert. Performed By: #### 2 860793, 7059799, 10305298, 53753400, 83622331, 34984993, 7440571, 3758806, 3434730, 6534219 ####[address] [place] [address] Eosinophils/100 WBC (Bld) 0.6 % Normal 0.0-8.0 [facility] Comment on above: Order Comment: Order Added by Discern Expert. Performed By: #### 2 573610, 3595825, 81716518, 15322989, 83560958, 50018922, 4592268, 8381850, 4207147, 5235507 ####[address] [address] Eosinophils/Leukocyt es Auto (Bld) [Pure # fraction] 0.0 E9/L Normal 0.0-0.5 [facility] Comment on above: Order Comment: Order Added by Discern Expert. Performed By: #### 2 526612, 6400884, 56982586, 10510831, 28941747, 57496217, 7110597, 5326110, 7117300, 6713547 ####[address] [address] Lymphocytes/100 WBC (Bld) 7.9 % Low 14.0-50.0 [facility] Comment on above: Order Comment: Order Added by Discern Expert. Performed By: #### 2 635068, 7123924, 44725903, 64126452, 88111572, 15831752, 5332971, 7885905, 9685556, 8905773 ####[address] [place] [address] Lymphocytes/Leukocyt es Auto (Bld) [Pure # fraction] 0.4 E9/L Low 1.0-4.0 [facility] Comment on above: Order Comment: Order Added by Discern Expert. Performed By: #### 2 627970, 5735945, 98043721, 63473286, 33604541, 52504959, 8306055, 2624064, 4199998, 5748097 ####[address] [place] [address] Monocytes/100 WBC (Bld) 5.5 % Normal 4.0-14.0 [facility] Comment on above: Order Comment: Order Added by Discern Expert. Performed By: #### 2 581353, 2699080, 58157817, 71283586, 85647512, 19064084, 9619263, 6544011, 4111892, 5162082 ####[address] [address] Monocytes/Leukocytes Auto (Bld) [Pure # fraction] 0.3 E9/L Normal 0.2-1.0 [facility] Comment on above: Order Comment: Order Added by Discern Expert. Performed By: #### 2 530741, 6717469, 10330485, 18727508, 47271411, 57143806, 1079132, 7562133, 5315030, 9393647 ####[address] [place] [address] Neutrophils/100 WBC (Bld) 85.6 % High 36.0-75.0 [facility] Comment on above: Order Comment: Order Added by Discern Expert. Performed By: #### 2 317454, 2042236, 06295275, 15754878, 00864180, 10064465, 1734868, 6242280, 2370458, 9511454 ####[address] [place] [address] Neutrophils/Leukocyt es Auto (Bld) [Pure # fraction] 4.5 E9/L Normal 2.0-7.5 [facility] Comment on above: Order Comment: Order Added by Discern Expert. Performed By: #### 2 766474, 5788548, 63212147, 13987776, 35493812, 77505789, 1303415, 2810716, 7246823, 0371937 ####[facility] [address] [place] [address] B hCG Qualon 02-28-2021 Beta hCG Ql Negative Normal [facility] Comment on above: Performed By: #### 2 830903, 6733795, 62071789, 67427627, 92810567, 76689198, 5190446, 6800252, 8411108, 5120893 ####[facility] [address] [place] [address] BMPon 02-28-2021 Creatinine [Mass/Vol] 0.7 mg/dL Normal 0.5-1.3 [facility] Comment on above: Performed By: #### 2 837397, 2253479, 29458157, 05844065, 61239793, 39444353, 5253855, 9220161, 1109041, 8701938 ####[facility] [address] [place] [address] Urea nitrogen [Mass/Vol] 9 mg/dL Normal 5-21 [facility] Comment on above: Performed By: #### 2 760528, 5207989, 21550062, 25237670, 12905216, 25727540, 0682302, 6320264, 6472488, 6197656 ####[facility] [address] [place] [address] Urea nitrogen/Creatinine [Mass ratio] 13 No Units Normal 10-20 [facility] Comment on above: Performed By: #### 2 674286, 5962366, 27466584, 43990616, 67070585, 53054749, 8862901, 0248456, 7993889, 2418055 ####[facility] [address] [place] [address] Anion gap [Moles/Vol] 14 mmol/L Normal 6-16 [facility] Comment on above: Performed By: #### 2 407118, 6244846, 88794975, 55828803, 71135457, 32395573, 3060545, 6160351, 4186914, 0589163 ####[facility] [address] [place] [address] Calcium [Mass/Vol] 8.5 mg/dL Low 8.9-11.1 [facility] Comment on above: Performed By: #### 2 053090, 3732035, 42309363, 62320449, 12116579, 47749979, 3833000, 9006897, 3006605, 5696022 ####[facility] [address] [place] [address] Chloride [Moles/Vol] 102 mmol/L Normal 101-111 [facility] Comment on above: Performed By: #### 2 942627, 6354454, 99569554, 67113166, 08072285, 88456870, 6697714, 8200245, 7152108, 0107036 ####[facility] [address] [place] [address] CO2 [Moles/Vol] 21 mmol/L Normal 21-31 [facility] Comment on above: Performed By: #### 2 638075, 8840068, 09638165, 89251739, 77771298, 32194793, 9031825, 3072010, 8358975, 5203354 ####[facility] [address] [place] [address] Glucose [Mass/Vol] 95 mg/dL Normal 55-199 [facility] Comment on above: Result Comment: If t his glucose result represents a fasting glucose, interpretation should refer to the following reference range: 55-99 mg/dL Performed By: #### 2 354182, 6151909, 01090169, 45157853, 07762660, 95724805, 6835003, 1756260, 5621630, 8883648 ####[facility] [address] [place] [address] Potassium [Moles/Vol] 3.6 mmol/L Normal 3.5-5.3 [facility] Comment on above: Performed By: #### 2 155995, 8346240, 75576531, 97275269, 40136264, 20687499, 9307814, 9441545, 2494793, 0122566 ####[facility] [address] [place] [address] Sodium [Moles/Vol] 133 mmol/L Low 135-145 [facility] Comment on above: Performed By: #### 2 955198, 0131109, 47432009, 31249293, 62706761, 82383439, 3786137, 9295335, 5097931, 4624650 ####[facility] [address] [place] [address] CBC w/ Auto Diffon Erythrocyte distribution width (RBC) [Ratio] 12.4 % Normal 10.9-14.2 [facility] Comment on above: Performed By: #### 2 882826, 6461458, 83742724, 31055991, 96598304, 70212032, 1328656, 7907606, 2089224, 1802997 ####[facility] [address] [place] [address] Hematocrit (Bld) [Volume fraction] 38.1 % Normal 34.0-46.0 [facility] Comment on above: Performed By: #### 2 253380, 3135362, 22584563, 01986406, 89863571, 92896044, 4730886, 7243112, 1825389, 4366791 ####[facility] [address] [place] [address] Hemoglobin (Bld) [Mass/Vol] 13.3 g/dL Normal 12.0-16.0 [facility] Comment on above: Performed By: #### 2 426615, 9151234, 35736860, 59814785, 19159332, 54006067, 2201434, 3397846, 5465175, 7378553 ####[address] [address] MCH (RBC) [Entitic mass] 31.7 pg Normal 27.0-34.0 [facility] Comment on above: Performed By: #### 2 686706, 8466958, 17555035, 80524713, 44609229, 70016869, 4807533, 8432513, 9721702, 9285532 ####[address] [address] MCHC (RBC) [Mass/Vol] 35.0 g/dL Normal 31.4-36.0 [facility] Comment on above: Performed By: #### 2 339293, 0863935, 42928604, 98157561, 70810234, 92084724, 7624190, 1972755, 6253896, 2137546 ####[address] [address] MCV (RBC) [Entitic vol] 90.8 fL Normal 80.0-100.0 [facility] Comment on above: Performed By: #### 2 338198, 6078767, 45022482, 41217738, 81962107, 07473305, 8435856, 6614308, 4995634, 3972544 ####[address] [address] Platelet mean volume (Bld) [Entitic vol] 10.0 fL Normal 6.4-10.8 [facility] Comment on above: Performed By: #### 2 344825, 2931739, 04387719, 40625765, 84198084, 07220154, 2315646, 3450367, 1332275, 5563677 ####[address] [address] Platelets (Bld) [#/Vol] 144.0 E9/L Low 150.0-500.0 [facility] Comment on above: Performed By: #### 2 052971, 2658083, 73762260, 36925628, 80788388, 73360127, 1125518, 1422976, 9003286, 7876095 ####[facility] [address] [place] [address] RBC (Bld) [#/Vol] 4.2 E12/L Low 4.3-5.9 [facility] Comment on above: Performed By: #### 2 750406, 7350876, 96854902, 22706709, 30413156, 60752731, 6940041, 6767359, 6052858, 9361172 ####[facility] [address] [place] [address] WBC corrected for nucl RBC Auto (Bld) [#/Vol] 5.3 E9/L Normal 4.0-11.0 [facility] Comment on above: Performed By: #### 2 241271, 4844205, 68891649, 07601722, 40462173, 65085109, 6438367, 7188320, 5172896, 3235278 ####[address] [place] [address] [place] [place]21 SARS-CoV-2 (COVID-19) RNA MARY+probe Ql (Unsp spec) Not detected Normal Not Detected [facility] Comment on above: Result Comment: This test result should be correlated with clinical presentations and medical history by a healthcare provider to determine its clinical significance. This assay was performed by a reverse transcriptase real-time polymerase chain reaction (rt PCR) method on the [employer] system. This test has been authorized only [...] or revoked sooner. Performed By: #### 2 [id number] #### [facility] [address] [place] [address] SARS-CoV-2 (COVID-19) RNA MARY+probe Ql (Unsp spec) Pass Normal Pass [facility] Comment on above: Performed By: #### 2 [id number] #### [facility] [address] [place] [address] Specimen source Nom (Unsp spec) Nasal Normal [facility] Comment on above: Performed By: #### 2 [id number] #### [facility] [address] [place] [address] Employed in Healthcare NO Normal [facility] Comment on above: Performed By: #### 2 [id number] #### [facility] [address] [place] [address] First Test Unknown Normal [facility] Comment on above: Performed By: #### 2 [id number] #### [facility] [address] [place] [address] Hospitalized? NO Normal [facility] Comment on above: Performed By: #### 2 [id number] #### [facility] [address] [place] [address] ICU NO [facility] Comment on above: Performed By: #### 2 [id number] #### [facility] [address] [place] [address] ? NO Normal [facility] Comment on above: Performed By: #### 2 [id number] #### [facility] [address] [place] [address] Resides in a Congregate Care Setting NO Normal [facility] Comment on above: Performed By: #### 2 [id number] #### [facility] [address] [place] [address] Symptomatic as defined by CDC YES Normal [facility] Comment on above: Performed By: #### 2 [id number] #### [facility] [address] [place] [address] Consent for Treatmenton Consent for Treatment [id number] .[id number]:127 Normal [facility] D-Dimeron 02-28-2021 Fibrin D-dimer FEU (PPP) [Mass/Vol] 388 [id number] Normal 215-500 [facility] Comment on above: Result Comment: This [...] infections Liver cirrhosis Performed By: #### 2 292764, 9561674, 04722871, 94799286, 59006058, 72552467, 9207999, 1490087, 9866562, 4878323 ####[facility] [id number] [place] [address] Discharge Instructionson Discharge Instructions [id number] 1.00CD:127 Normal [facility] ED Clinical Summaryon 2020 ED Clinical Summary [address] [address] ED Clinical Summary Person Information Name: RAJIV TOVAR/[facility] Age: 25 Years : 1995 Sex: Female Language: Chinese PCP: Alon Weber MD Marital Status: Single [...] 02/28/2021 11:17:01 02/28/2021 11:17:01 02/28/2021 11:17:01 ADDRESS: [address] [place] [id number] [facility] DOC NOTES: MEDICAL INFORMATION: Prescriptions Given: [...] Follow up: With: Address: When: Alon Tatelenin [facility] [facility], [place] [address] Business (1) In 3 days DIAGNOSIS: Chest pain; Viral URI Normal [facility] ED Note-Physicianon 02-29-20 ED Note-Physician Basic [...] hCG Qual CBC w/ Auto Diff COVID-19 [place] [place] D-Dimer ECG 12 Lead Adult ED Cardiac [...] Information Alon Weber In 3 days [address] [facility] [place] [place] [address]- Business (1) Additional Instructions: Patient Education COVID-19: How to Protect Yourself and Others - [facility] COVID-19 Frequently Asked Questions [...] Use, 01/30 (more content not included)... Normal [facility] Comment on above: Result Comment: Elec tronically Signed By: Laureano Phillip DO\.br\Date and Time Signed: 02/28/21 11:03 EDT ED Patient Summaryon 021 ED Patient Summary [address] [address] Patient Discharge Instructions Person Information Name: RAJIV TOVAR Age: 25 Years Arrival Date: 02/28/2021 09:10:34 Discharge Diagnosis: Chest pain; Viral URI Primary Care Physician: Alon Weber MD Provider Information Primary Provider: Laureano Phillip DO [employer] Vendor Management Associate:None The exam and treatment you received in the Emergency Department were for an urgent problem and are not intended as complete care. It is important that you follow up with a doctor, nurse practitioner, or physician?s trading assistant for ongoing care. If your symptoms [...] Follow-up Instructions: With: Address: When: Alon Gus [address] [place] [address], [place] [address] Business (1) In 3 days [...] opioids can be used to help relieve jesgsjqf-gh-lmkovi pain and are often prescribed following a [...] be struggling with addiction, tell your health child care attendant school and ask for guidance or (more content not included)... Normal [facility] Hep Func Panelon 02-28-2021 ALP [Catalytic activity/Vol] 52 Int._Unit/L Normal 21-98 [facility] Comment on above: Performed By: #### 2 107151, 1852681, 88968269, 77347890, 23199096, 27168646, 7022528, 2460492, 1770746, 4927584 ####[facility] [address] [place] [address] Albumin [Mass/Vol] 4.2 g/dL Normal 3.3-5.0 [facility] Comment on above: Performed By: #### 2 738861, 0324856, 49679665, 95393714, 20489102, 49676710, 2201900, 4798403, 9957135, 3295702 ####[facility] [address] [place] [address] Albumin/Globulin (S) [Mass conc ratio] 1.4 Normal 1.1-2.2 [facility] Comment on above: Performed By: #### 2 007719, 1764053, 25971839, 86985267, 54658420, 60022546, 4317379, 9071264, 7177068, 6094394 ####[address] [place] [address] ALT No additional P-5'-P [Catalytic activity/Vol] 48 Int._Unit/L High 6-46 [facility] Comment on above: Performed By: #### 2 873633, 2447981, 55395115, 42912321, 65701549, 82887119, 5353360, 1740733, 7075590, 5013765 ####[address] [place] [id number] AST [Catalytic activity/Vol] 39 Int._Unit/L Normal 5-43 [facility] Comment on above: Performed By: #### 2 893582, 8856770, 50073592, 11549625, 01698660, 34591030, 8096530, 8604817, 9895116, 7731998 ####[address] [address] Bilirubin [Mass/Vol] 1.2 mg/dL High 0.0-1.1 [facility] Comment on above: Performed By: #### 2 023075, 9593327, 95141395, 19371804, 74635073, 46508647, 3140569, 5367142, 5741492, 1579030 ####[address] [place] [address] Bilirubin.direct [Mass/Vol] 0.2 mg/dL Normal 0.1-0.4 [facility] Comment on above: Performed By: #### 2 510699, 2533071, 46056932, 34329898, 21904078, 65231575, 9658894, 8765435, 1212344, 4347169 ####[address] [address] Bilirubin.indirect [Mass or moles/Vol] 1.0 mg/dL High 0.1-0.9 [facility] Comment on above: Performed By: #### 2 465747, 5780874, 56066094, 58046778, 30666253, 64553184, 4983900, 9890095, 6620991, 6179880 ####[facility] [address] [place] [address] Globulin (S) [Mass/Vol] 2.9 g/dL Normal 1.4-4.0 [facility] Comment on above: Performed By: #### 2 028381, 7346163, 83904492, 06952327, 03479466, 05189877, 8382638, 0502022, 5021511, 6739848 ####[facility] [address] [place] [address] Protein [Mass/Vol] 7.1 g/dL Normal 6.0-7.8 [facility] Comment on above: Performed By: #### 2 826424, 0789040, 32885560, 60317862, 15752892, 31347061, 7625601, 6898850, 2695006, 1687298 ####[facility] [address] [place] [address] Lipase Levelon 02-28-2021 Lipase [Catalytic activity/Vol] 33 U/L Normal 13-58 [facility] Comment on above: Performed By: #### 2 523655, 5244574, 04349353, 00139889, 03005691, 58084931, 8326500, 8674385, 2925821, 5414976 ####[facility] [address] [place] [address] PT & PTTon 02-28-2021 aPTT Coag (PPP) [Time] 31.5 second(s) Normal 25.1-36.5 [facility] Comment on above: Result Comment: Hepa rin therapeutic range (represented by Anti-Factor Xa activity of 0.2 - 0.4 U/mL) corresponds to PTT of 56.6 - 109.0 sec. Performed By: #### 2 821700, 6463660, 63490614, 80202688, 69239786, 85096195, 4065021, 7295979, 2135718, 9158596 ####[facility] [address] [place] [address] INR Coag (PPP) [Relative time] 1.1 {INR} Invalid Interpretation Code [facility] Comment on above: Result Comment: INR results are specifically intended to assess patients stabilized on long-term Anticoagulation therapy suggested INR?s ?Less Intensive Anticoagulation? 2.0 ? 3.0 Conventional Range 3.0 ? 4.5 Performed By: #### 2 520786, 3520805, 70146909, 96582320, 76178330, 47353031, 8972327, 3865589, 4096333, 3209724 ####[facility] [address] [place] [address] PT Coag (PPP) [Time] 13.1 second(s) High 10.2-12.9 [facility] Comment on above: Performed By: #### 2 389023, 3033437, 27008078, 16129229, 13064645, 72682717, 9304160, 6960355, 5317952, 3897796 ####[facility] [address] [place] [address] Prescriptions/Work Noteson 0 02-28-2021 Prescriptions/Work Notes [id number]# 1.00CD:127 Normal [facility] Troponin 0 Hr.on 02-28-2021 Troponin I.cardiac [Mass/Vol] ng/mL Low 10.10-27.10 [facility] Comment on above: Result Comment: The 95% CI (Confidence Interval) PPV (Positive Predictive Value) for myocardial infarction in females is 38 pg/mL, in males 51 pg/mL. The results should be used in conjunction with clinical conditions of myocardial infarction. (Access High Sensitivity Troponin I Instructions For Use, [place], January 2018) Performed By: #### 2 921024, 9334388, 83381636, 92373788, 19045754, 05910974, 1404768, 3369813, 1673141, 6040010 ####[facility] [address] [place] [address] XR Chest Single Viewon 02-28 XR Chest [...] MD Transcribed by: OLGA Technologist: YONG Kaplan [facility] eGFRon 02-28-2021 GFR/1.73 sq M.predicted among blacks MDRD (S/P/Bld) [Vol rate/Area] mL/min/{1.73_m2} Normal >=59 [facility] Comment on above: Order Comment: Order added by Discern Expert. Result Comment: eGFR is race adjusted. AA=. Performed By: #### 2 601284, 3072792, 73123307, 62878920, 40231322, 94961305, 2976445, 8679892, 7414023, 6137011 ####[facility] [address] [place] [address] GFR/1.73 sq M.predicted among non-blacks MDRD (S/P/Bld) [Vol rate/Area] mL/min/{1.73_m2} Normal >=59 [facility] Comment on above: Order Comment: Order added by Discern Expert. Result Comment: Spa Coordinator bib kidney disease could be indicated at eGFR's of less than 60 mL/min/1.73m2. Kidney failure is indicated at less than 15 mL/min/1.73m2. Performed By: #### 2 737733, 2217418, 41230432, 38630778, 86844270, 86323692, 8185586, 7943055, 1996236, 4231499 ####[facility] [address] [place] [address] C Urineon 02-01-2021 Bacteria identified Cx Nom [...] at: [facility], [address] [place] [address], [address] , , [facility] Comment on above: Performed By: #### 1 3714461, 7876075 ####[facility] [address] [place] [address] Coding Summary.on 02-01-2021 Coding Summary. CD:[id number] G h0bWw+PGhlYWQ+YD9PQPE aC02xoUTejS2SN0oVFW6Q YTTXZCABBP7CTC0fzSH0X RktJ0OnfcFz EteqpMUbTA23RHg1YDV4l HrnGIctnF9ozFEbJ4j9Bh DzQW15rA14QNunDHApDzO 3LjZpbjsgbWFy J2nzMkRymJQlGtt+PHRhY mxlIHdpZHRoPScxMDAlJy BrmOunCM2pXd8dNBJfQCP vbGxhcHNlOiBj i9tyNZOwLLxtJB0fqEpzT 3OppCP1MZBtp7m6Ny19zO I+HVJzYDQ7lAjiBKuhk78 0UyNbq8tzLBT6 sNJwCYapPQI3O04ci9T2G KYzGBHlMFE6jXU9wO6tvJ oqztpzN9AxuQXwSmY3MQU 5iPZieH2vsWui usvteO3bHhc+L57GSF8UO WSZIS7JZtb9Z3GvKszqtX I+NB62AOVxZV65xOMzeUB jn8quzDz2AuYr BSNwMYF9eFboEPhwg9OlO BOmO62boVHqd5I8YHDimS aiqVJgCrFotLZ3wG7cQLt clmezz7oyrrpc Vrzki3bwlq89iE85G75pZ LadPKJmJOG0VGPbLQZmyC cbee5orE0fPf0+FOxrm5x ae2wkyBp0QcWg APTppyPbuRxnTAR2v1GnK w06T9DlmSxhb9ErCsp4lk 50mLAxa3I5oPC6UEcuLFR knG4jJXzcIoC6 KKXeTbQvjN13vAJzNAqyV p8gjJhlaDokYF9fOGFqyr wbLOAygK6cOBWdfPNdfNk cEJ3cJDWmvpjy r743XqEoCLU7NDCmcOXiV 4WadL8kIiMgXROlSGOmT0 TzeUOmAQloH442GAczBhX 8VAWedrMuM1Gd BOBxfNweVjW8j4R7Af8Pg 4XwxsneGON8IZwuNAO2Yp EgNrEpJuN9O4CjKbr6DNZ icLchIH0uJ5Pm XPXtpblhhpragVN2AASvZ BJzfM17fTRrELmvPt8ql6 V8l718OBRuZATwwI62Ph6 udDogMTBwdCBU sZ3cxaflt5szxojpEmPnO CAtOGz2KQj9EHUygDegPd HrRKL5OlU3GTQ2iCQflA6 yoIydafrbrK7e Oyc+L26wvH6wWIQ1KOJ9g hmnSQZtneSfQG77XP52V5 RyPjwvdGFibGU+PGRpdiB dwMjxSO4uEkVm y0vbr8UeFQmkG7ZyRWAvQ KfdUie1CYUtJSJ5aMU4eH 8fQPFkAVzth3P3cOD0K2P vfnRaiu5vd9yq LIGlKKbrJ33lgKXnl2K2V QNolXH1CYDcwElsZtRtsQ 93Oyc+JQLhlMmiy2NsDbb ea3jks2gknPz1 XhNkBKAeckOktYmpZCR6t 4YwHu85M21pVZjhEUCoQE ZgSQDpZHWbsRveks6wqA8 wIi8+PGNvbCB3 mNU2qY4gJFZhFjV8IUnxL 849LoIzsDTnTpnks1rce0 oidHl3SmZvJARdlyEpbTa jMTW2i2TlAo61 G39iKWneHGPxNYQhBFIsB KNysPmxwe5jmE8vWl9+PC 2yw9punc30pO85qCH+PHR fCBC9sXolXJcd MXFtgC7hSPajHfF2QSLrD eNudC76nITeWOgmHe9elH uxcMbhQM5lSASuedlha64 8DrZba4ijAQUk kFOwJZibKVY8N95yt3K3S DRkSXJwYMG2kAC9hW8sbM lnbjogbGVmdDsgdmVydGl xJXlkVKmfF210 IHRvcDsnPlBhdGllbnQgT dLyZBe7T8AgQjv7OMPefE ikCV5iaGAiNJprTc2seFj rsWwyJD9iCNNf pzwhw329KaSdv0rjWUOjq DDdHZenOCQ7N31jw6V5AM KbTCQoXTZ5nAF6pX2vhFp nbjogbGVmdDsg vwBdxRrvYIjaSVcrJ716U HRvcDsnPkJpcnRoIERhdG B8IY86AS46xEPhi7N5eAK 7H6PsSIAyegvq rubbvLZ8FNKoREKhsT70D y3ymRxpLg3eUJImTDB1ZA VnoNSjC8OvpI7dIuQzSGV mRUBxW0JjmYAx KWiuV705OQqzBqO7UHKsz fJyP4MaBETtwXvcNiN2m8 X6Yp5DT8O0KM26VN63nMC ao3J1zQG0K1Wg FIKhiknpuficbEJ0OCPcE VNebH93Ic3moChoKj5tMN PmDQD4CIJmaUSgW1GshI5 yOiAjMDAwMDAw I9YsiXBiTDykC515WLzoR yC7QNEttvVcD2QnZREkjI buUuW9g4O9Wd4QEWc7ET6 3WD53dVMpb2V8 lAR2U9ZyANLwxaiclnwci FK1YGFaDJTosH40Th9lvL riKe1vPPAlAKS6AVYewYY fM4NphD2rQpFb ZYEbVMCzP3JfoTQjXIzaQ 982VAmmUmD6VAPwvpPsS6 ImHAFvfGiiWsO7q3O9Bk0 MOPLdHF84JZS0 vDA9DC86HM12S5BzIzzeh GFibGU+PHRhYmxlIHdpZH RoPScxMDAlJyBzdHlsZT0 xSa8sDQDkFRJb eIznkTSeSlAps3urGTChA LmmMG3rfTysL5AgvDG6CT Kfj3b4Ev30X94bQ1UpwHV +IQPgcLZ9mNA3 wF6xPdErBqE1AWrsN816G vIidXLqVufhw9zem6rleO d5NtO6LOGcmdPxmXvzBBP 9a2AwZe79P01t IHdpZHRoPSIxNSUiIHZhb Oupop7isK8sAy7+PGNvbC F5bWJ4fS4lCtOkEnL3TGp xS760FuCwaPLd Mcyzw6teb4talVv1IvBgM UDrsrVznTpgUIK3u8WmIw 50D8VwaEdrq1PzDte2as2 9wHAlx0V6jWW0 J0ErOZRajmptmALdaHkrZ A8sAAEwuklkNLIazP8kWL MfF7q3JcFjDqP5LVehF6Y ftqN8FGPoxOIm PVpsXHE4N46sz3S5FJKiN IUeMJD7oVE0pL6lcQoryc ogbGVmdDsgdmVydGljYWw lHRxoM814GBXw eDtcDJMcqN4iDBTwzCOwq SsvDD9jUXGnvwuhJyNTNZ QEGSPIUNaZY4A2A0GgKwa 4TGZkcUrfMI9d vCKgFVpzLc3rgCedwUvtM E5sYREaeginFDPurJ8gYS SzmADhrHgeQB1kBKHdimy aj756MoYjOQT4 APDbzQBxN0EdqR0kSrWkS ZVvLNEiJ3AjvIRdDRbiG3 73NDlwQdF5ZCBoacGuG5E sLWFsaWduOiB0 r4E3Lh2fDQ7gCg1aIXrxB Q00DA89qQLea2U4cNK0W1 WjFHAcznxiflgbeZO3MKI jBZJfqC66rGSv WTtwRb6kk1U0n684NZJhE OIyhH41Ab1nuFuvAMDwsK LSoL3lhpnhf7bvuuufVhU iMFSmCKw7EZm0 KTGvhSncGtHrCIJ7AuW4R AP8zBAbpL4caFruayjvgN 9wOyc+TttkSDCzmxJ0Y3A iCcv4XBKdeSdx ZA3fmTFhVHwlCq9lpDodp AbaHY5oDSKpvnjwWZFfpJ 7gAKQyvSRwcSxmIC5vGGU ctljuj026KdHc OQF1PWQrzFNmC8KrlY4pM lPkBBOfCPDjO7AccKGzYH oaQ087PNrwIoO1EPNcahI nO1TiXARzjFut QpO6f9Z9Cz0FOP2kbVF7U 1MnZlx5EBKsmHglQA8snX OiUJhwWu0uvBwjlEzrEF1 wNTBpbjtwYWRk tO7yXPGhgXXbxBysPC3dP DBlrtltp015AoBhBLY7OF RxvUKpQ3ArwJ8tHaLmDLN sNUEdY5CrxLLt MZopM050WBzjObK3VTQpv vWvO2WmDKBzaPbyFxK8c6 V0Zq4JjKQdE0VtT4q8Z3K kPjwvdHI+PC90 EGShMI96mGKouACil9vfx Qy7QvAhKMEeWQW5zJovLJ wtn7ShHAHzE07gmTLwm4B 6IGNvbGxhcHNl QpQnkGT8qP4eRBfqrppaz 0sdfxkgTjjgq4ptun21nS 01F02fYHoeWQIqFLWoTCP wRNJekVykiq0l nP6eAt4+QNDgnKH1zGW0f L4hDiEpSzE4YJheO570Oq JykMJiTduez3oig0pgsGo 9IjIwJSIgdmFs eAvyTLD0t8QlGw72G05hC HdpZHRoPSIyMCUiIHZhbG qfnm1xjY0yZb2+LW3pt1j wii11hF53oMN+ GEZeIHG9cMiuNJbtVGUck Q1oPTqrLpA3ALRiSuDotA 52kHDpFWaiFw3kiBgggVq bQF1sMRZxnxsn p199NjDcm5gpHRVypNCxB JqsNOI7M11ir7G5MWWpKL BzGFZ8aFU9wY6kyBqwqpp gbGVmdDsgdmVy gAjdXNmdPZmvT057NPYqz FhdOzMwdGVrA0oomfRUMV 1lOjwvdGQ+EMNhDFL9uGg nYFrbIRMioZ8i VGGgD2b1FpFnWeK9AOobJ 6HudaL2TJPgkAKjSXYttU YTmH8wezgae5qnowvgRaC tRZXjKPc3COd6 QSMmdPljSpMzJYO4TcW7M LX2uRHdaT5rgCdovdifwR 9wOyc+RklOOjwvdGQ+PHR rZJX1wUkxLDau GUZynH3pZQTyJ1h6UaXyU aF6NAzqJ5AidlZ1YYAliS KbGQGwbFOOsR1sqhcsa5n vcjogIzAwMDAw UDf5PLy6BKYkiFxhKlEgD GE0LoK9QUJ1aXXqhG2olI edouafkP8iDik+TVJOOjw vdGQ+PHRkIHN0 hCkeKQcgYFZtpM7qOXUlO 3n8ZsFkLrY9WOctO5Opgu R4ATXocDFeOGPhpTKWyC7 csyayj2ybrpzx BmNdDAFuHJz5WPy2RYQce XsnCnIpOYA6OrI0OEC6yV ZyjH0brQpebufhvV1tCxm +ZQS8RTB3ID90 ZK68N4IlQaqdcRYqyAT+P HRhYmxlIHdpZHRoPScxMD YoEvVjjQxtGF3lXa9iALI yLWNvbGxhcHNl OiBj (more content not included)... Normal [facility] B hCG Qualon 01-31-2021 Beta hCG Ql Negative Normal [facility] Comment on above: Performed By: #### 2 452296, 6476028, 2967211, 70299611, 7431879, 00242679, 7870805 ####[address] [place] [address] Discharge Instructionson Discharge Instructions [id number]# 1.00CD:127 Normal [facility] ED Clinical Summaryon 2020 ED Clinical Summary [address] [address] ED Clinical Summary Person Information [facility] Age[facility] 25 Years : 1995 Sex: Female Language: Chinese PCP: Alon Weber MD Marital Status: Single [...] 01/30/2021 23:43:48 01/30/2021 23:43:48 01/30/2021 23:43:48 ADDRESS: [address] [place] [address] [id number] PHYS DOC NOTES: MEDICAL INFORMATION: Prescriptions Given: New Medications [id number], [address], [place] [id number], [phone] cephalexin (Keflex 500 mg Cap) 1 Capsules [...] Follow up: With: Address: When: Alon Weber [address] [place] [address], [facility] [place] [address] Business (1) In 3 days 02/02/2021 DIAGNOSIS: Acute UTI Normal [facility] ED Note-Physicianon 02-01-20 ED Note-Physician CD:[id number]:[id number] 2 6KU22sDmrthMva5nsro8h NG1fYhDuybPsKMhpJr3lk 5uyXQ32qz8yWqLdZl4+Cj llHP8SNCzXACCl qM0dENNZAdtMHvXmFC8iZ mRAKd8DCKMjPRfGMNgaZZ 0pCHF9ripcnF7bMM4hVES yhDIjAh0hx2z6 KidoNc3sBf9RWg57pJZfy EWfJBBHH9lroP1nSJ8wkH FoX2LpRCRcNq8WPSb4mIm wqN8myeK4Oau4 rPN6Fu97t4ftdyViz4SiO rA2WJeflDp5iGmdQDlueU 5uJjTeRFQHpS1xrKohEP4 maH1tjwEbhQbv biI+VelyVHXmXvj2bBObH M53P2JtfHflHpv5iEN1YH QovFSeUSVhwUk9BLIPRBG BLUNvbXBhdGli eEYnYCVypyFpufE0SakBY WUgIpGmQeu3I3imRRS+Cj wua0R9Ddq0VJx0HUG3dKr qQZBlb946DLBp mAxqjQdjzCZsb61wXAZcn DLpBvDia851YIZlvdO8OS zysDhaOpd9oIGfcAQlr2h pzYo3JgQxLGHj DjsQJTYdmEfgy6SdGhxNA Tdcq1bdjcFilEdoWJN3i4 WdRMewVYFzKEI9AnHuOL2 +CgkJPGNvbCB2 TCsuT114QtZgfGHez7ckw Ys1RiX9KKAqXe0KLMqfB2 9qN9YioWV+Iso0zVYxACm +CgkJPHRyPgoJ HCg4mRVaa9W7kTT9WhDab zHve8i1FShwQXN2YgR7EG S2tCTghN4foResgtxvnW6 wOyI+CgkJCTxk kPBtO0xun0W0RpQqd2Wdr LxvnqOuLFKvLgYwm0emMf jbBYCvdQ6tHTB8NbOzUKA leHQiIGlkPSJf RkLdVACsBuDdDTXdRj22F dOaRLj6EGdnTbnoSHM8Ix QlPjIuAhIumKrvLU1cpEX kZGluZzogNHB4 OyI+IBAdVL9xO5rca1C6V vIqe7OnbNocmbJts7JeCX nwYmsewAJxVKK7cGwhBCI lf309OAghxGxy qWkoFw6dGDnbxLI8tA8gN MZyfnB4hF3xMvZ7sbKphn xrldE3Np8HXHLfCkYDcyI pxn5rjRlepbha n1Jumt94M6RvGR4+CgkJC FngbXSdG8hrq4S2GuJgw9 Zwm18ggdZ8HA1gxLR7BJA lJNEzDeCny8fh YmxlIGRkZnJlZXRleHQiI DHyIdI9epWat0Q6vH0lo1 B9kTG4PdUskC4lfQpfqXE aWYC1tCLxiHnd gKIlW1quTHJTL4gzJ45TQ OBRBSLCRVCaYZq0TEuwCu QiIGlkPSJfYTMyMjFhZGU mJONqKJ85BpOo IDNvYRSaQbD9UKLpYcS4H ZL5Vv66r0GgheIxfOspZR 0ixMQzW2jiNxCtzDDmEVz iKmBkKRDjcZ3l PhJsxTN1RYBmhMWhVVvtF 534AXgbMmA5PYHhaL4oYm WfI5PpCKqxSYcgJUq6MEI bsmDus2D5rOS2 SH8yrg7gnCmxQy4tlZ40I GzugOA7OC1nwi7wsZdckQ J0vB0uCNNwuiE7lH7vUsR bt68aJvK+JiN4 RBO9Gc5oaMAckRzmhBgxQ gNfNRVgRLZ6VHuuAQFqFQ 3yO9nzVGe8Q0VeAU1+PGJ yIC8+CgkJCSYj lEEdYunmXEz4NsiDOLxDH ARwtlOxyMJevy5nMHVvzj QasBD5lAOmDAGavS08CSH dINAgPHM2LxSy OsfvNKQlawzkvVxkUS7iq B9bQWUeH5o7DqVhML9xXn wxTdN7VAmjZKj9RGgaFDu jII20IGp5NIQj UHP0DoKoMzTpRgQoa7A4k DO5PvJdp3GsZXy3ED9qwn P5Qb76D8Adgg3DSPwRFM4 kaXY+CgoJCQk8 ZJg4IQIvNANwJWKvPZYyJ 2Vdq76eHOCsYBDhXVFkSQ TkDQKkSCdan2FcsNCjILP 0PWk6EOYfjmGl h2WjJkmfNbYnSFqwQXH2o J4lW40iSK7vNR6NJzYkIK AvZCJgZsUvhSU8Xb24JwW 2PXL1IR01LaNk KEN8IEetBKs2Og2oYUMyJ hYbFGT5IPlcBSH3mZjxLX IqTHKinX1cHzK2sDu2Ap8 0c6ZjzwGquWEd gy5dOTZdLXF3bL7xAGlbf GxheSI+ZLUfDP3sl6G1kL R9WwGmkxYvr0XtK1b3PdP jg7isFiF7AXj9 IWCjE28rZPPzy195PJLjE GVybGluZTsiPkNoaWVmIE NzxYAkCFflaDzns3Uuvm4 3I2ViMT4+CgoJ CMe2ERy1YGTeWLZnXCIsE GVtcmNvbnRlbnQiIGRkOm JwcmVomcQ8hHZrQEYTPAO GGETOC72LBLCi KFEqMkCqLuIoHT4wWKM5t JA4LuAPFjPcKPa4TDMoGQ TvCHYIRu3FFWSuFCYDRIO ZWIS1NVQZEAJy qWI3Wn96KxGlBeetKo4eC UEoRHTtOlScMuctLa7bWP p1OIChBIawWxArNjnEYUy 1XXk7ODHxAWLn PSJkZGVtcmNvbnRlbnRpd LHmSCDidyHvx9RfNxijXl PnSWkom578GJ14nZkyFC1 oPWWWM5EMWY9C RUFTIiBkZDplbnRpdHlpZ E0pDEd9MYX0JDBoBsSypH X4Uv8xPPCyJfvoDt6kXAB hLTRkMWMtYjNl Cf76GBL2UXd7EMK1HayfC WdkjH9mVpYoXFSInU1olJ rvKH5bvX7kmfPckOmtrhO +cHQgYXJyaXZl ecHvh7RpiuuasIJor5ekG RNfMOXtKWKwpO7znZqinC VdjIEyoUTniI8csAqvSXR zMH5sRMSxLA5m O32cmjY7bpL9iBSwykunv YJoQHL2WPxlYXEnwXmhJR HgSSUmFHUddsZbk6AzFDo dLW7sKSmvseWi tFEnKgRzkkKbzK4aZLT5n 5OwUcviEWq4DoqIEXv9S6 Hhsl1RNSySXM0ifPM+Cgo DYWv6UWw6NFJt NIAcTMBpLGIyZ9Wni49oV GRyZWZyZXNoYWJsZSBkZG hfq2EqqOIzMWH9ESw7LNG iiqAtc8AfUvkp RcSvAPxvEFE0zQ5zZ46yG R0bWY6HOiIiEUOwJkYbMs KipHB6Cv3wL6JaNUQ3CI7 hUaEqHFI7SsCj OQg4Cf0uKMU1UqE6JFgjC BDjQXF8hRaqZPQuDKVrjN 2lQuQ2nLj9Ru80u5GijdT foQBxvh8tRJDn GRJ9dV0aETanhLzwrAY+P BArKY5vl9N0nUR6XhFoxl Ufn0TcW4j0OjZeg7yvOmP 1NIi6IBMcE41w MWGpt034VCEfGYNylSrkD ZvqEzmtg9Aamicde6OoCS Llb1XznLVRlNixVMJfIR9 ttHLfTiqwk1Ny yh8XBdyMRTchaAUmD4uee 2X6XgHpNT9fE77mgZPbaA YkJEL1Z95uP3ReaP9eFJK RReRoFRhsv494 DF08yQawTD2yAX2QG6NVJ LVzHXZnUtIhYqYnVU6rXS D0pNU7GvAlDuPcXwQ8NGN 5ZISlPKCKGu38 GysBKTUIFiB1E5N6B6T5V KFjsSA1Ac9pSSY9YlnmZO 19OKLdHYQcGQIyEUFkDU2 7QCUkSRJ7BAK1 YTsaClnDBVa6HMg3BLGyG XNzPSJkZGVtcmNvbnRlbn NhdLFvMpMoDKqmg795DC0 6rKkwJU5wATES R7WSLQ7WJBNGGyMeBQisr kYtxIpdJD2cOARcORE5EE 07wEQ3thTvq1atip6xHXE muPE8Fd77APBv AvtlYJ1xLkfmDCK2TJvnU CO8Tq86BXJ2OKBzSVOnZV DwRbkCPOv9RLu4WHOrVDZ zPSJkZGNvbXBv paCdeTNyTFX4PM56rIB4f VL0pYD4yIK0JiSgf7EocV VckIIzgIX7Hp00G1Y5Zhp gWN7iR4AlZIYe YtngMeM2Ue78WTPhZyUkC ES1V8TmRmiXCJr0RTl3VV GxUKHhTJGwAFFsXJG7UAa 2IZAeflZnx5Ot CexwCyYzBWxpbY9acB3fq HojP2T8vRjrXFY4g0Ywgf lnaHQiIGlkPSJfMjlkMjM 0YBVmORWmYT49 Gxn7YFNvRgUvLNu7ANy4H uW6KkV4Yh4BHBmtp7WcL2 zcTvNstJCnNPKvQkO7MFT gWK0eJXJuPR1e xVYjh8w2sUTFBHbbq9Bkx 4PboxfowsApaXU4hzSkrl MrVG24ybM8yGCaBFYxlOW khnBxkBO6p5C3 XM4qPNkwlIBwhZc6nFFqn BAlhXUgX5GmLH5wR5BxLK 5xzA4xqZExRAzbYQGyETD uK7ToKRVoHB8z UQPzrU9diI5uGOPiFWGvk fJ9nHWovOJnpZzcQAGuG6 JpYmVkIGFzIHNoYXJwLCB pyqZik7IwMZLp j06jfAr6XONfZXpkoKZzZ IVsFNcck5qnCTAkVQR1VX ugPkslPS0hBMpgg8OcVNF pX2iuLFJ6ifFv bnRseSByYXRlZCBhdCBhI KzdOECrOE0cHRzhqpK7o7 juufOuRLMxzCLyfN6uqVm bLEZzm0KaRWGg dQ1ci2X2NP9mTGHfm5BtG QLkCLW1tHHgAY3zkv2kRK DweRXbNTX2c0TwwRNyAU4 nATCgOGN4AQ8a cGuuSjY5VLGdVY4ir6FzF AblpHH6wOKtSN2yIRIhSX 1kp5A6jTH9MvRzSWKltfy aeS9dYnPuhFl5 ZRKdEQOxnmziVi48lK1bF uEzrTe6WQ0htgxoke76c8 Q2ZVQfhUzbvYHiS6rsEFK vdHRvbTogMHB4 OyI+Hb8khQjyiQ3kvJBdM wRmxDPtTLoik3FydaYjTl etu7Tidr8iB7xzUVf5f0W htwRwjDxrHB1t wMGnPOtfZg20r0Y3MXKwt OzwuOXlHEvfDj4gd4B3i6 33ZQEsaHitdPJqI2fkXMH qiNgxYII4AvKh Y (more content not included)... Normal [facility] Comment on above: Result Comment: Elec [...] this condition includes: ? Antibiotic medicine. ? Njbe-nut-ffibmev medicines to treat discomfort. ? Drinking enough [...] these instructions at home: Medicines ? Take qqut-bxu-yiddhzc and prescription medicines only as told by [...] This in (more content not included)... Normal [facility] ED Patient Summaryon 021 ED Patient Summary [address] [address] Patient Discharge Instructions Person Information Name: RAJIV TOVAR Age: 25 Years Arrival Date: 01/30/2021 20:17:08 Discharge Diagnosis: Acute UTI Primary Care Physician: Alon Weber MD Provider Information Primary Provider: Joshua Hollingsworth DO [employer] Vendor Management Associate:None The exam and treatment you received in the Emergency Department were for an urgent problem and are not intended as complete care. It is important that you follow up with a doctor, nurse practitioner, or physician?s trading assistant for ongoing care. If your symptoms [...] Follow-up Instructions: With: Address: When: Alon Weber [facility] [facility], [address] [place] [id number] [facility] (1) In 3 days 02/02/2021 In the event that this physician does not participate in your insurance network, please consult with your insurance company to find a nearby participating provider. Patient Education Materials: Urinary Tract Infection, Adult A MESSAGE TO ALL PATIENTS REGARDING OPIOIDS PRESCRIPTION OPIOIDS: WHAT YOU NEED TO KNOW Prescription opioids can be used to help relieve ggzhgkct-nl-ehxanm pain and are often prescribed following a [...] be struggling with addiction, tell your health child care attendant school and ask for guidance or call [employer]?S National Helpline at 6-766-022-HELP. v Source: [place] Department of Health a (more content not included)... Normal [facility] UA With Cult Reflexon 2020 Bacteria LM Ql (Urine sed) 1+ /HPF Abnormal Trace [facility] Comment on above: Performed By: #### 1 [id number], [id number] ####[facility] [address] [place] [id number] Bilirubin Ql (U) Negative Normal Negative [facility] Comment on above: Performed By: #### 1 [id number], [id number] ####[facility] [address] [place] [address] Clarity (U) CLOUDY Abnormal Clear [facility] Comment on above: Performed By: #### 1 [id number], [id number] ####[facility] [address] [place] [id number] Color (U) YELLOW Normal Yellow [facility] Comment on above: Performed By: #### 1 [id number], [id number] ####[facility] [address] [place] [address] Crystals LM Ql (Urine sed) Present Normal [facility] Comment on above: Performed By: #### 1 [id number], [id number] ####[address] [address] Epithelial cells.squamous LM.HPF (Urine sed) [#/Area] 0-2 Normal 0-2 [facility] Comment on above: Performed By: #### 1 [id number], [id number] ####[facility] [address] [place] [address] Glucose Test strip (U) [Mass/Vol] Negative Normal Negative [facility] Comment on above: Performed By: #### 1 [id number], [id number] ####[facility] [address] [place] [address] Hemoglobin Ql (U) TRACE Abnormal Negative [facility] Comment on above: Performed By: #### 1 [id number], [id number] ####[facility] [address] [place] [address] Ketones (U) [Mass/Vol] Negative Normal Negative [facility] Comment on above: Performed By: #### 1 [id number], [id number] ####[facility] [address] [place] [address] Deputy.plasma/Lithi um.RBC (Bld) [Mass ratio] 0-3 Normal 0-3 [facility] Comment on above: Performed By: #### 1 [id number], [id number] ####[facility] [address] [place] [address] Mucus Ql (Urine sed) TRACE Normal [facility] Comment on above: Performed By: #### 1 [id number], [id number] ####[address] [address] Nitrite Ql (U) Positive Abnormal Negative [facility] Comment on above: Performed By: #### 1 [id number], [id number] ####[address] [address] pH (U) 7.5 [pH] Invalid Interpretation Code 5.0-9.0 [facility] Comment on above: Performed By: #### 1 [id number], [id number] ####[address] [address] Protein (U) [Mass/Vol] Negative Normal Negative [facility] Comment on above: Performed By: #### 1 [id number], [id number] ####[address] [address] Specific gravity (U) [Rel density] 1.020 Invalid Interpretation Code 1.005-1.030 [facility] Comment on above: Performed By: #### 1 5993708, 4104532 ####[address] [address] Type of Urine collection method Clean Catch Normal [facility] Comment on above: Performed By: #### 1 0098547, 6893128 ####[address] [address] Urobilinogen Qn (U) 0.2 {Arnie'U}/dL Normal 0.0-1.0 [facility] Comment on above: Performed By: #### 1 5742513, 4026291 ####[address] [address] WBC Auto Ql (U) 1+ Abnormal Negative [facility] Comment on above: Performed By: #### 1 9099440, 3778152 ####[facility] [address] [place] [address] WBC LM.HPF (Urine sed) [#/Area] 6-15 Abnormal 0-5 [facility] Comment on above: Performed By: #### 1 3552919, 0499277 ####[facility] [address] [place] [address] Auto Diffon 01-30-2021 Basophils/100 WBC (Bld) 0.4 % Normal 0.0-2.0 [facility] Comment on above: Order Comment: Order Added by Discern Expert. Performed By: #### 2 670411, 2134213, 3358536, 45332868, 9965718, 71527093, 8186260 ####[address] [address] Basophils/Leukocytes Auto (Bld) [Pure # fraction] 0.0 E9/L Normal 0.0-0.2 [facility] Comment on above: Order Comment: Order Added by Discern Expert. Performed By: #### 2 943622, 7769030, 2484421, 23781879, 9249483, 77219726, 3192794 ####[address] [address] Eosinophils/100 WBC (Bld) 1.4 % Normal 0.0-8.0 [facility] Comment on above: Order Comment: Order Added by Discern Expert. Performed By: #### 2 629327, 7173583, 4906497, 03330584, 3036588, 22092112, 7576820 ####[address] [place] [address] Eosinophils/Leukocyt es Auto (Bld) [Pure # fraction] 0.1 E9/L Normal 0.0-0.5 [facility] Comment on above: Order Comment: Order Added by Discern Expert. Performed By: #### 2 307363, 7851327, 4451774, 06100961, 5873668, 68435027, 0326587 ####[address] [address] Lymphocytes/100 WBC (Bld) 23.7 % Normal 14.0-50.0 [facility] Comment on above: Order Comment: Order Added by Discern Expert. Performed By: #### 2 357865, 4942948, 2766841, 54171984, 9020931, 58234688, 7822392 ####[facility] [address] [place] [address] Lymphocytes/Leukocyt es Auto (Bld) [Pure # fraction] 1.9 E9/L Normal 1.0-4.0 [facility] Comment on above: Order Comment: Order Added by Yifan Expert. Performed By: #### 2 473178, 1252428, 2353647, 29885169, 3903915, 19957860, 2729421 ####[address] [place] [address] Monocytes/100 WBC (Bld) 6.2 % Normal 4.0-14.0 [facility] Comment on above: Order Comment: Order Added by Yifan Expert. Performed By: #### 2 884400, 7791934, 3348481, 33245970, 2669123, 92449443, 8484786 ####[facility] [address] [place] [address] Monocytes/Leukocytes Auto (Bld) [Pure # fraction] 0.5 E9/L Normal 0.2-1.0 [facility] Comment on above: Order Comment: Order Added by Discern Expert. Performed By: #### 2 935548, 2289507, 1345539, 29506122, 0756869, 51775178, 9595619 ####[facility] [address] [place] [address] Neutrophils/100 WBC (Bld) 68.3 % Normal 36.0-75.0 [facility] Comment on above: Order Comment: Order Added by Yifan Expert. Performed By: #### 2 311620, 4407671, 3153319, 64885245, 8231409, 16439000, 0307677 ####[facility] [address] [place] [address] Neutrophils/Leukocyt es Auto (Bld) [Pure # fraction] 5.6 E9/L Normal 2.0-7.5 [facility] Comment on above: Order Comment: Order Added by Discern Expert. Performed By: #### 2 384756, 5896162, 7215729, 38676600, 1925326, 48746838, 6313965 ####[facility] [address] [place] [address] BMPon 01-30-2021 Calcium [Mass/Vol] 9.0 mg/dL Normal 8.9-11.1 [facility] Comment on above: Performed By: #### 2 427085, 7251951, 7402199, 03791385, 8279803, 74994517, 1762768 ####[facility] [address] [place] [address] Creatinine [Mass/Vol] 0.7 mg/dL Normal 0.5-1.3 [facility] Comment on above: Performed By: #### 2 929144, 1205419, 6606979, 12770144, 2147249, 03083570, 7022396 ####[facility] [address] [place] [address] Urea nitrogen [Mass/Vol] 10 mg/dL Normal 5-21 [facility] Comment on above: Performed By: #### 2 360483, 8434209, 1546991, 69886966, 0576443, 54524117, 3045579 ####[facility] [address] [place] [address] Urea nitrogen/Creatinine [Mass ratio] 14 No Units Normal 10-20 [facility] Comment on above: Performed By: #### 2 500148, 2861256, 4060519, 51670252, 0430751, 46519349, 2004680 ####[facility] [address] [place] [address] Anion gap [Moles/Vol] 12 mmol/L Normal 6-16 [facility] Comment on above: Performed By: #### 2 669464, 7017626, 6607733, 08775796, 0522186, 21704736, 4310776 ####[facility] [address] [place] [address] Chloride [Moles/Vol] 104 mmol/L Normal 101-111 [facility] Comment on above: Performed By: #### 2 163312, 4836687, 9237754, 60764939, 6052611, 55743302, 6732005 ####[facility] [address] [place] [address] CO2 [Moles/Vol] 25 mmol/L Normal 21-31 [facility] Comment on above: Performed By: #### 2 221266, 8724523, 2498005, 04819172, 4108636, 47329264, 4934674 ####[facility] [address] [place] [address] Glucose [Mass/Vol] 93 mg/dL Normal 55-199 [facility] Comment on above: Result Comment: If t his glucose result represents a fasting glucose, interpretation should refer to the following reference range: 55-99 mg/dL Performed By: #### 2 360268, 5851745, 8571186, 04508230, 0871172, 56559988, 0637675 ####[facility] [address] [place] [address] Potassium [Moles/Vol] 3.8 mmol/L Normal 3.5-5.3 [facility] Comment on above: Performed By: #### 2 629150, 7219094, 8655476, 41986514, 6349316, 02636660, 6681077 ####[facility] [address] [place] [address] Sodium [Moles/Vol] 137 mmol/L Normal 135-145 [facility] Comment on above: Performed By: #### 2 657112, 9212445, 6821088, 33647219, 3496132, 32884087, 2801700 ####[facility] [address] [place] [address] CBC w/ Auto Diffon 08-09-202 1 Erythrocyte distribution width (RBC) [Ratio] 12.2 % Normal 10.9-14.2 [facility] Comment on above: Performed By: #### 2 094329, 1144554, 6054666, 15662702, 8336626, 45683763, 0922283 ####[facility] [address] [place] [address] Hematocrit (Bld) [Volume fraction] 39.3 % Normal 34.0-46.0 [facility] Comment on above: Performed By: #### 2 683876, 6204792, 7910301, 75777481, 8971708, 32165532, 5114545 ####[address] [place] [address] Hemoglobin (Bld) [Mass/Vol] 13.3 g/dL Normal 12.0-16.0 [facility] Comment on above: Performed By: #### 2 033435, 1603834, 9313180, 15685951, 5673495, 92355334, 7662726 ####[address] [place] [address] MCH (RBC) [Entitic mass] 31.3 pg Normal 27.0-34.0 [facility] Comment on above: Performed By: #### 2 636438, 2453643, 1355148, 72901598, 6882437, 15044733, 2640822 ####[address] [address] MCHC (RBC) [Mass/Vol] 34.0 g/dL Normal 31.4-36.0 [facility] Comment on above: Performed By: #### 2 121649, 7859304, 1221220, 81039431, 2167036, 40075587, 2317441 ####[facility] [address] [place] [address] MCV (RBC) [Entitic vol] 92.1 fL Normal 80.0-100.0 [facility] Comment on above: Performed By: #### 2 676430, 4525167, 1650971, 33613980, 7299332, 38656637, 9952729 ####[facility] [address] [place] [address] Platelet mean volume (Bld) [Entitic vol] 9.2 fL Normal 6.4-10.8 [facility] Comment on above: Performed By: #### 2 446172, 0347826, 5685683, 78408464, 1480607, 76758218, 2699963 ####[facility] [address] [place] [address] Platelets (Bld) [#/Vol] 214.0 E9/L Normal 150.0-500.0 [facility] Comment on above: Performed By: #### 2 921643, 5918195, 7117354, 44861672, 1333368, 02998668, 2752651 ####[facility] [address] [place] [address] RBC (Bld) [#/Vol] 4.3 E12/L Normal 4.3-5.9 [facility] Comment on above: Performed By: #### 2 998716, 2971246, 9894300, 41874162, 7896682, 35263005, 2967348 ####[facility] [address] [place] [address] WBC corrected for nucl RBC Auto (Bld) [#/Vol] 8.2 E9/L Normal 4.0-11.0 [facility] Comment on above: Performed By: #### 2 077483, 1910776, 2619879, 70152856, 7718201, 20365080, 1285900 ####[address] [place] [address] Consent for Treatmenton Consent for Treatment [id number]#1 .00CD:127 Normal [facility] Hep Func Panelon 01-30-2021 Albumin [Mass/Vol] 4.0 g/dL Normal 3.3-5.0 [facility] Comment on above: Performed By: #### 2 278801, 1877188, 3973241, 55383059, 0057394, 50376914, 7408257 #### [facility] [address] [place] [address] Albumin/Globulin (S) [Mass conc ratio] 1.5 Normal 1.1-2.2 [facility] Comment on above: Performed By: #### 2 144207, 6669292, 3015484, 71249284, 0995482, 29683960, 5566051 #### [facility] [address] [place] [address] ALP [Catalytic activity/Vol] 44 Int._Unit/L Normal 21-98 [facility] Comment on above: Performed By: #### 2 841381, 0516576, 8059444, 99324288, 7353663, 79477689, 0429726 #### [facility] [address] [place] [address] ALT No additional P-5'-P [Catalytic activity/Vol] 20 Int._Unit/L Normal 6-46 [facility] Comment on above: Performed By: #### 2 214760, 5245265, 0603974, 75103030, 5969189, 92539654, 9868792 #### [facility] [address] [place] [address] AST [Catalytic activity/Vol] 16 Int._Unit/L Normal 5-43 [facility] Comment on above: Performed By: #### 2 919199, 8442976, 5089651, 27425510, 9115350, 27174844, 0785593 #### [facility] [address] [place] [address] Bilirubin [Mass/Vol] 1.1 mg/dL Normal 0.0-1.1 [facility] Comment on above: Performed By: #### 2 199147, 2414701, 3774402, 87605684, 4364389, 90059812, 3426567 #### [facility] [address] [place] [address] Bilirubin.direct [Mass/Vol] 0.2 mg/dL Normal 0.1-0.4 [facility] Comment on above: Performed By: #### 2 479832, 8592322, 9665901, 77336028, 0664883, 36280406, 8571838 #### [facility] [address] [place] [address] Bilirubin.indirect [Mass or moles/Vol] 0.9 mg/dL Normal 0.1-0.9 [facility] Comment on above: Performed By: #### 2 566890, 8273036, 0161636, 90788753, 0561932, 55057894, 9027796 #### [facility] [address] [place] [address] Globulin (S) [Mass/Vol] 2.6 g/dL Normal 1.4-4.0 [facility] Comment on above: Performed By: #### 2 468628, 4162226, 5001780, 11113436, 4436183, 40057266, 2407764 #### [facility] [address] [place] [address] Protein [Mass/Vol] 6.6 g/dL Normal 6.0-7.8 [facility] Comment on above: Performed By: #### 2 816225, 5910978, 7553104, 46738983, 6531073, 16929786, 1126926 #### [facility] [address] [place] [address] Lipase Levelon 01-30-2021 Lipase [Catalytic activity/Vol] 32 U/L Normal 13-58 [facility] Comment on above: Performed By: #### 2 975595, 5475767, 7311711, 82996729, 2455336, 59053468, 5212890 #### [facility] [address] [place] [address] eGFRon 01-30-2021 GFR/1.73 sq M.predicted among blacks MDRD (S/P/Bld) [Vol rate/Area] mL/min/{1.73_m2} Normal >=59 [facility] Comment on above: Order Comment: Order added by Discern Expert. Result Comment: eGFR is race adjusted. AA=. Performed By: #### 2 720822, 9081598, 3411862, 38784486, 1123355, 02783128, 8518027 #### [facility] [address] [place] [address] GFR/1.73 sq M.predicted among non-blacks MDRD (S/P/Bld) [Vol rate/Area] mL/min/{1.73_m2} Normal >=59 [facility] Comment on above: Order Comment: Order added by Discern Expert. Result Comment: Spa Coordinator bib kidney disease could be indicated at eGFR's of less than 60 mL/min/1.73m2. Kidney failure is indicated at less than 15 mL/min/1.73m2. Performed By: #### 2 475237, 0206634, 5600607, 20082064, 6637779, 54594331, 1934716 #### [facility] [address] [place] [address] Provider Letteron 06-03-2020 Provider Letter June 03, 2020 To Whom It May Concern, Rajiv has been under my care and had a lap choly on 05/10/2020. She was seen post operatively on 05/23/2020 and was healing well. Rajiv is released to work on 06/06/2020 with no restrictions. Please call the office at [phone] with any questions/ concerns. Sincerely, Dr. Aiden Izquierdo faxed to [facility] to [phone] Normal [facility] Ambulatory Clinical Summaryo n 05-23-2020 Ambulatory Clinical Summary {[id number]}CD:[id number] Normal [facility] General Surgery Office/Clini c Noteon 05-23-2020 [...] Aiden IZQUIERDO MD Only if needed [address] [place] [id number]- Additional Instructions: F/U PRN Problem List/Past Medical [...] Family History Family history is negative [facility] Comment on above: Result Comment: Elec tronically Signed By: Aiden IZQUIERDO MD\.br\Date and Time Signed: 05/23/20 10:17 EST\.br\Electronically Co-Signed By: Mildred Cook MA\.br\Date and Time Co-Signed: 05/23/20 09:55 EST IntraOperative Documentson 1 07-17-2019 IntraOperative Documents [id number]#1 .00CD:127 Normal [facility] Ambulatory Clinical Summaryo n 05-16-2020 Ambulatory Clinical Summary {[id number]}CD:[id number] Normal [facility] Gastroenterology Office/Clin ic Noteon 05-16-2020 Gastroenterology Office/Clinic Note Chief Complaint f/u EGD HPI Staff This is a 25 year old female who presents today for a follow up to EGD. History of Present Illness 24 years old white female with no significant past medical history except for anxiety, referred to me from [facility], ER to be evaluated for right upper quadrant abdominal pain, she reports right upper quadrant abdominal pain, started 6 weeks ago, sporadic, moderate in nature except for the last time when it was severe for which she went to [facility], ER, she had normal CBC, [...] Information Ezequiel MARTINEZ MD Only if needed [facility] [address] [address]- Additional Instructions: Patient Education Cholelithiasis Problem List/Past [...] Surgical Pathology Report; 04/29/2020 10:57 EST Normal [facility] Comment on above: Result Comment: Elec [...] required. HOME CARE INSTRUCTIONS ? Only take cpfw-xhk-rpphtls or prescription medicines for pain, discomfort, or [...] Document Reviewed: 08/09/2011 ExitCare? Patient Information ?2013 [employer]. [facility] Coding Summary.on 05-13-2020 Coding Summary. CODING DATE: 05/13/2020 FINAL [facility] STATUS: Home (Routine DC) PAYOR: Reba APC DESCRIPTION 5361 Level 1 Laparoscopy and Related Services ADMIT DX: REASON FOR VISIT DX: K81.1 Chronic cholecystitis FINAL DX: PRINCIPAL: K81.1 Chronic cholecystitis SECONDARY: K82.8 Other specified diseases of gallbladder F41.9 Anxiety disorder, unspecified PYMT PROC APC STAT DESCRIPTION DOCTOR NAME DATE 24676 5361 J1 Laparoscopy, surgical; Aiden IZQUIERDO MD 05/10/2020 cholecystectomy with cholangiography 42963 Anesthesia for Bakari Husain Jr, DO 05/10/2020 [...] Revised Date Saved: 05/13/2020 02:09 pm [facility] Main OR Intraoperative Recor don 05-13-2020 Main OR Intraoperative Record IntraOp Document Type FT Summary Primary Physician: Aiden IZQUEIRDO MD Finalized Date/Time: 05/13/20 11:07:53 Pt. Name: RAJIV TOVAR/Sex: 1995 Female Med Rec #: [id number] Physician: Aiden IZQUIERDO MD Financial #: [id number] Pt. Type: A Room/Bed: Admit/Disch: 05/10/20 07:43:57 - 05/10/20 15:00:00 Institution: Case Times FT Entry 1 Patient Times In Room 05/10/20 09:29:00 Out Room 05/10/20 10:27:00 Procedure Times Start 05/10/20 09:44:00 Stop 05/10/20 10:20:00 Anesthesia Times Start 05/10/20 09:29:00 Stop 05/10/20 10:27:00 Last Modified By: My Callahan RN 05/10/20 10:27:42 General Comments: 1011- rail technician called dr. guo read xray dilated tapers distally can't exclude small stone possible spasm , Dr. Izquierdo stated understanding. - joan turner 05/13/2020 Chart opened to review and send charges. Angela Leavitt CLINICAL SCIENCES PROFESSOR. Case Attendance FT Entry 1 Entry 2 Entry 3 Case Attendee Ankit AGUILAR, Linnea IZQUIERDO MD, Aiden ARAUJO MD, Ramandeep Cummings Role Performed Anesthesiologist Surgeon - Primary Surgeon - Assist 1 Assistant Office Manager Time In 05/10/20 09:29:00 05/10/20 09:40:00 [...] TURNER, My Villalba RN, Bernadette Ortiz Cert. Service Department Manager, Arlette Davila Role Performed Media Marketing Manager - Primary Scrub - Primary [...] Magalie R Role Performed Scrub - Primary Per Diem Registered Nurse Time In 05/10/20 09:29:00 05/10/20 10:00:00 Time [...] Coy RN, Deejay Chowdhury RN, Angel Oglesby Service Department Manager, Carlos Rock CST, Macie C Time [...] By: C (more content not included)... Normal [facility] Postoperative Documentson Postoperative Documents [id number]# 1.00CD:127 Normal [facility] Progress Note-Physicianon Progress Note-Physician Patient: RAJIV [...] TID, # 10 tab(s), Refills(s) 0, Pharmacy: [facility]/pharmacy #[id number], 168, cm, 04/19/20 6:20:00 EDT, Height/Length Dosing, 58.5, kg, 04/19/20 6:20:00 EDT, Weight Dosing omeprazole 40 mg Cap-DR: 40 mg = 1 cap(s), Oral, Daily, # 30 cap(s), Refills(s) 2, Pharmacy: [facility]/pharmacy #[id number], 168, cm, 04/20/20 10:06:00 EDT, Height/Length Dosing, 59.5, kg, 04/20/20 10:06:00 EDT, Weight Dosing Documented Medications Documented desvenlafaxine 100 mg Tab-: 100 mg = 1 tab(s), Oral, Daily, Refills(s) 0, Depression Problem list: All Problems Biliary dyskinesia / SNOMED CT 548225127 / Confirmed Depression / SNOMED CT 80354887 / Confirmed Histories Past Medical History: No active or resolved past medical history items have been selected or recorded. Family History: Entire family history is negative. Procedure history: EGD (esophagogastroduoden oscopy) gastric outlet reduction (5826114893) on 04/29/2020 at 25 Years. section (75901618) on 07/23/2019 at 24 Years. Sinus (5838984078). Nasal cautery (045075810). Ankle (7059293). Comments: 05/10/2020 8:24 EST - [employer] COMPUTER SYSTEMS CONSULTANT, Bernarda Bilateral ankle stabilazation for flat feet Diagnostic laparoscopy (747810195). Comments: 05/10/2020 8:26 EST - [employer] COMPUTER SYSTEMS CONSULTANT, Bernarda ovarian cyst drained Social History Social [...] EST Heart (more content not included)... Normal [facility] Comment on above: Result Comment: Elec [...] All Problems Biliary dyskinesia / SNOMED CT 069469492 / Confirmed Depression / SNOMED CT 99373713 / Confirmed Physical Examination Vital Signs 05/10/2020 [...] EST Apic (more content not included)... Normal [facility] Comment on above: Result Comment: Elec tronically Signed By: Bakari Husain Jr, DO\.br\Date and Time Signed: 05/13/20 13:20 EST Coding Summary.on 05-12-2020 Coding Summary. CODING DATE: 05/12/2020 FINAL [facility] STATUS: Home (Routine DC) PAYOR: [place] ADMIT DX: REASON FOR VISIT DX: Z01.812 [...] CphT Date Saved: 05/12/2020 09:53 pm [facility] Consent for Anesthesiaon Consent for Anesthesia [id number]# 1.00CD:127 [facility] Discharge Instructionson Discharge Instructions [id number]# 1.00CD:127 [facility] IntraOperative Documentson 1 07-11-2019 IntraOperative Documents [id number]# 1.00CD:127 [facility] Operative Reporton 0 Operative Report Date of Surgery: 05/10/2020 SURGEON: Aiden Izquierdo MD, FACS DYNAMICS AX DEVELOPER: Ramandeep Araujo MD, FACS PREOPERATIVE DIAGNOSIS: Chronic [...] Aiden Izquierdo MD, FACS lkr Dictated: 05/10/2020 #[id number] Typed: 05/10/2020 #[id number] cc: Alon Weber M.D. Aiden Izquierdo MD, FACS [facility] Comment on above: Result Comment: Elec tronically Signed By: TIMBO POLK, Aiden Busby.ilana\Date and Time Signed: 05/11/20 08:04 EST Preoperative Documentson Preoperative Documents [id number]# 1.00CD:127 [facility] Preoperative Documents [id number]# 1.00CD:127 [facility] Consent for Treatmenton 04-24 Consent for Treatment [id number]#1 .00CD:127 [facility] Inpatient Patient Summaryon 05-10-2020 Inpatient Patient Summary [place] [id number] [facility] Clinical Discharge Instructions PERSON INFORMATION Name: RAJIV TOVAR [facility]#:[id number] PHYSICIANS Admitting Physician: Aiden IZQUIERDO MD Attending Physician: Aiden IZQUIERDO MD PCP: Gus POLK, Alon Discharge Diagnosis: Chronic cholecystitis with calculus Comment: PATIENT EDUCATION INFORMATION Instructions: Post Op Patient Instructions - FT (CUSTOM); How to Use an Incentive Spirometer; Izquierdo - Post Op Instructions (CUSTOM) Medication Leaflets: Follow up: With: Address: When: Aiden IZQUIERDO [address], [address] [place] [phone] [employer] (1) Within 7 to 10 days Comments: Call for any problems. Call for followup appointment Type Location Start [facility] Follow Up [facility] 05/16/2020 1:00 PM 05/16/2020 1:15 PM Confirmed MEDICATION LIST Medications to Continue with No Changes Other Medications desvenlafaxine (desvenlafaxine 100 mg Tab-) 1 Tablets By Mouth every day. omeprazole (omeprazole 40 mg Cap-DR) 1 Capsules By Mouth every day. Refills: 2. ondansetron (Zofran ODT 4 mg Tab) 1 Tablets By Mouth 3 times a day. Refills: 0. Comment: Normal [facility] IntraOperative Documentson 07-10-2019 IntraOperative Documents [id number]# 1.00CD:127 Normal [facility] Main OR PACU I Recordon 04-24 Main OR PACU I Record PACU Phase I Document Type FT Summary Primary Physician: Aiden IZQUIERDO MD Finalized Date/Time: 05/10/20 11:13:04 Pt. Name: RAJIV TOVAR/Sex: 1995 Female Med Rec #: [id number] Physician: Aiden IZQUIERDO MD Financial #: [id number] Pt. Type: A Room/Bed: AS06/24 Admit/Disch: 05/10/20 [...] By: Belkys Yarbrough RN 05/10/20 11:13 Normal [facility] Main OR PACU II Recordon Main OR PACU II Record PACU Phase II Document Type FT Summary Primary Physician: Aiden IZQUIERDO MD Finalized Date/Time: 05/10/20 15:45:07 Pt. Name: RAJIV TOVAR Pilar/Sex: 1995 Female Med Rec #: [id number] Physician: Aiden IZQUIERDO MD Financial #: [id number] Pt. Type: A Room/Bed: Admit/Disch: 05/10/20 07:43:57 [...] By: Marcelina Cadet RN 05/10/20 15:45 Normal [facility] Main OR Preoperative Recordo n 05-10-2020 Main OR Preoperative Record PreOp Document Type FT Summary Primary Physician: Aiden IZQUIERDO MD Finalized Date/Time: 05/10/20 10:00:50 Pt. Name: RAJIV TOVAR /Sex: 1995 Female Med Rec #: [id number] Physician: Aiden IZQUIERDO MD Financial #: [id number] Pt. Type: A Room/Bed: Admit/Disch: 05/10/20 07:43:57 [...] By: My Callahan RN 05/10/20 10:00 Normal [facility] Monitor Recordon 05-10-2020 Monitor Record [id number]# 1.00CD:127 Normal [facility] Outpatient Surgery Discharge Instructionon 05-10-2020 Outpatient Surgery Discharge Instruction [place] [id number] Patient Discharge Instructions PERSON INFORMATION Name: RAJIV [...] With: Address: When: Aiden [address], [address] [place] [address] [employer] () Within 7 to 10 days Comments: Call for any problems. Call for followup appointment Type Location [facility] Follow Up [facility] [place] 05/16/2020 1:00 PM 05/16/2020 1:15 PM Confirmed Pharmacy Information: Thank you for choosing [facility] [place] HERE ARE THE MEDICATION CHANGES THAT OCCURRED [...] possible. ? If the spirometer includes a motor coach supervisor indicator, use this to guide you in [...] from co (more content not included)... [facility] Patient Education - Texton 1 [...] possible. ? If the spirometer includes a motor coach supervisor indicator, use this to guide you in [...] 10/21/2007 Document Revised: 07/03/2018 Document Reviewed: 04/23/2018 [employer] Patient Education ? 2019 edenes. [place], [place] Aiden Izquierdo MD, FACS POST OPERATIVE [...] or r (more content not included)... [facility] Progress Note-Physicianon Progress Note-Physician Patient: RAJIV TOVAR Age: 25 years Sex: Female : 1995 Associated Diagnoses: None Author: Aiden IZQUIERDO MD Postoperative Information Date/ Time: 05/10/2020 10:26:00 Preoperative Diagnosis: Chronic cholecystitis with calculus (ASH39-CS K80.10, Working, Medical). Postoperative Diagnosis: Same pending pathology. Procedure: Laparoscopic Cholecystectomy with intraoperative chloangiogram. Performed by: Aiden Izquierdo MD. Assistant Office Manager: Ramandeep Araujo MD. Specimens Removed: Gallbladder. Estimated Blood Loss: 5 ml. Complications: None. Normal [facility] Comment on above: Result Comment: Elec tronically Signed By: Aiden IZQUIERDO MD\.br\Date and Time Signed: 05/10/20 10:27 EST Progress Note-Physician Patient: RAJIV TOVAR Age: 25 years Sex: Female : 1995 Associated Diagnoses: None Author: Aiden IZQUIERDO MD Basic Information No change in History and Physical Normal [facility] Comment on above: Result Comment: Elec [...] ALSO POSSIBLE. CLINICAL HISTORY: Cholelithiasis. COMMENT: Limited mmozv-ab-qaqh C-arm images were obtained in the OR, [...] Dose: Ka,r in mGy = 3.4 [facility] Coding Summary.on 05-08-2020 Coding Summary. CODING DATE: 05/07/2020 FINAL [facility] STATUS: Home (Routine DC) PAYOR: [...] CphT Date Saved: 05/07/2020 10:24 pm [facility] Coding Summary.on 05-05-2020 Coding Summary. CODING DATE: 05/05/2020 FINAL [facility] STATUS: Home (Routine DC) PAYOR: Reba APC DESCRIPTION 5301 Level 1 Upper GI Procedures ADMIT DX: REASON FOR VISIT DX: R10.13 Epigastric pain FINAL DX: PRINCIPAL: R10.13 Epigastric pain SECONDARY: R10.11 Right upper quadrant pain F41.9 Anxiety disorder, unspecified PYMT PROC APC STAT DESCRIPTION DOCTOR NAME DATE 47580 5301 Ezequiel WEST MD 04/29/2020 phagogastroduodenosco py, flexible, transoral; with biopsy, single or multiple 18335 Anesthesia for upper Husain Bakari Berry DO [...] Revised Date Saved: 05/05/2020 11:48 am [facility] Consent for Procedure/Surger yon 05-05-2020 Consent for Procedure/Surgery [id number]#1 .00CD:127 [facility] [place] 05-05-2020 Forms [id number]#1 .00CD:127 [facility] Priority Order-Mitchell 2019 Priority Order-STAT Comment Invalid Interpretation Code [facility] Comment on above: Result Comment: Rece ived Performed at: [facility] [address] [facility] [place], [place] [id number] LTAC, located within [facility] Johanny Lozano Performed By: #### 2 [id number], SARS-CoV-2, MARY #### [facility] [address] [place] [address] SARS-CoV-2, NAAon 05-05-2020 SARS-CoV-2 (COVID-19) RNA MARY+probe Ql (Resp) Not detected Invalid Interpretation Code Not Detected [facility] Comment on above: Result Comment: This nucleic acid amplification test was developed and its performance characteristics determined by [employer] Nucleic acid amplification tests include PCR and [...] detected) result in this assay. Performed at: [facility] [address] [facility] [place] [id number] MD Indira Washington Performed By: #### 2 [id number], SARS-CoV-2, MARY #### [facility] [address] [place] [address] B hCG Qualon 05-04-2020 Beta hCG Ql Negative Normal [facility] Comment on above: Performed By: #### 2 [id number] #### [facility] [address] [place] [address] CBC w/Indiceson 05-04-2020 Erythrocyte distribution width (RBC) [Ratio] 13.1 % Normal 10.9-14.2 [facility] Comment on above: Performed By: #### 2 289402, [id number] ####[address] [address] Hematocrit (Bld) [Volume fraction] 40.5 % Normal 34.0-46.0 [facility] Comment on above: Performed By: #### 2 818935, 7679024 ####[address] [address] Hemoglobin (Bld) [Mass/Vol] 14.0 g/dL Normal 12.0-16.0 [facility] Comment on above: Performed By: #### 2 339000, 3088249 ####[address] [address] MCH (RBC) [Entitic mass] 31.0 pg Normal 27.0-34.0 [facility] Comment on above: Performed By: #### 2 368683, 5820698 ####[address] [address] MCHC (RBC) [Mass/Vol] 34.6 g/dL Normal 31.4-36.0 [facility] Comment on above: Performed By: #### 2 693981, 3572919 ####[address] [address] MCV (RBC) [Entitic vol] 89.7 fL Normal 80.0-100.0 [facility] Comment on above: Performed By: #### 2 586453, 4274578 ####[address] [address] Platelet mean volume (Bld) [Entitic vol] 9.1 fL Normal 6.4-10.8 [facility] Comment on above: Performed By: #### 2 412458, 8968640 ####[address] [address] Platelets (Bld) [#/Vol] 245.0 E9/L Normal 150.0-500.0 [facility] Comment on above: Performed By: #### 2 362026, 1257306 ####[facility] [address] [place] [address] RBC (Bld) [#/Vol] 4.5 E12/L Normal 4.3-5.9 [facility] Comment on above: Performed By: #### 2 722362, 1458780 ####[facility] [address] [place] [address] WBC corrected for nucl RBC Auto (Bld) [#/Vol] 5.6 E9/L Normal 4.0-11.0 [facility] Comment on above: Performed By: #### 2 050573, 2313397 ####[address] [address] Consent for Treatmenton 04-24 Consent for Treatment [id number]#1 .00CD:127 Normal [facility] Hep Func Panelon 05-04-2020 Albumin [Mass/Vol] 4.2 g/dL Normal 3.3-5.0 [facility] Comment on above: Order Comment: if no t already done. Performed By: #### 2 905778, 6877294 ####[address] [address] Albumin/Globulin (S) [Mass conc ratio] 1.4 Normal 1.1-2.2 [facility] Comment on above: Order Comment: if no t already done. Performed By: #### 2 101844, 9175593 ####[facility] [address] [place] [address] ALP [Catalytic activity/Vol] 112 Int._Unit/L High 21-98 [facility] Comment on above: Order Comment: if no t already done. Performed By: #### 2 992749, 6610066 ####[facility] [address] [place] [address] ALT No additional P-5'-P [Catalytic activity/Vol] 129 Int._Unit/L High 6-46 [facility] Comment on above: Order Comment: if no t already done. Performed By: #### 2 874058, 8598242 ####[facility] [address] [place] [address] AST [Catalytic activity/Vol] 28 Int._Unit/L Normal 5-43 [facility] Comment on above: Order Comment: if no t already done. Performed By: #### 2 002662, 5681172 ####[address] [address] Bilirubin [Mass/Vol] 0.7 mg/dL Normal 0.0-1.1 [facility] Comment on above: Order Comment: if no t already done. Performed By: #### 2 911760, 0193589 ####[address] [address] Bilirubin.direct [Mass/Vol] 0.1 mg/dL Normal 0.1-0.4 [facility] Comment on above: Order Comment: if no t already done. Performed By: #### 2 784226, 7145201 ####[facility] [address] [place] [address] Bilirubin.indirect [Mass or moles/Vol] 0.6 mg/dL Normal 0.1-0.9 [facility] Comment on above: Order Comment: if no t already done. Performed By: #### 2 624161, 2295029 ####[address] [address] Globulin (S) [Mass/Vol] 3.1 g/dL Normal 1.4-4.0 [facility] Comment on above: Order Comment: if no t already done. Performed By: #### 2 571547, 2109014 ####[facility] [address] [place] [address] Protein [Mass/Vol] 7.3 g/dL Normal 6.0-7.8 [facility] Comment on above: Order Comment: if no t already done. Performed By: #### 2 574241, 9235930 ####[facility] [address] [place] [address] Ambulatory Clinical Summaryo n 05-03-2020 Ambulatory Clinical Summary {[id number]-97 -4c-b4}CD:[id number] [facility] Consent for Procedure/Surger yon 05-03-2020 Consent for Procedure/Surgery [id number] .00CD:127 [facility] Consent for Procedure/Surgery [id number] .00CD:127 [facility] Formson 05-03-2020 Forms [id number]#1 .00CD:127 [facility] Forms [id number]#1 .00CD:127 [facility] Physician Orderon 05-03-2020 Physician Order [id number]#1 .00CD:127 [facility] Physician Referralon 020 Physician Referral [id number]#1 .00CD:127 [facility] Postoperative Documentson Postoperative Documents [id number]# 1.00CD:127 [facility] Progress Note-Physicianon Progress Note-Physician Patient: [...] TID, # 10 tab(s), Refills(s) 0, Pharmacy: [facility]/pharmacy #[id number], 168, cm, 04/19/20 6:20:00 EDT, Height/Length Dosing, 58.5, kg, 04/19/20 6:20:00 EDT, Weight Dosing omeprazole 40 mg Cap-DR: 40 mg = 1 cap(s), Oral, Daily, # 30 cap(s), Refills(s) 2, Pharmacy: [facility]/pharmacy #[id number], 168, cm, 04/20/20 10:06:00 EDT, Height/Length [...] Cardiovascular: Regular rhythm. Neurologic: Alert, Oriented. Plan [place] [employer] Anesthesiologists (ASA) physical status classification: Class II. Anesthetic Preoperative Plan Anesthesia: General. . Anesthetic plan, risks, benefits, and alternatives discussed with the patient and/or family. Communication: face to face with (patient 5 minutes, Patient educated on smoking cesstation). Normal [facility] Comment on above: Result Comment: Elec [...] vomiting. Plan Transfer/ Discharge: Condition stable. Normal [facility] Comment on above: Result Comment: Elec tronically Signed By: Bakari Husain Jr, DO\.br\Date and Time Signed: 05/03/20 09:37 EST Consenton 05-02-2020 Consent [id number] .00CD:127 [facility] Discharge Instructionson Discharge Instructions [id number] .00CD:127 [facility] General Surgery Office/Clini c Noteon 05-02-2020 [...] When Contact Information TIMBO POLK, Aiden Tilley [address] [place] [address]- Additional Instructions: F/U POST OP. [...] Family History Family history is negative [facility] Comment on above: Result Comment: Elec tronically Signed By: Aiden IZQUIERDO MD\.br\Date and Time Signed: 05/02/20 15:39 EST\.br\Electronically Co-Signed By: Mildred Cook MA.br\Date and Time Co-Signed: 05/02/20 15:25 EST IntraOperative Documentson 1 07-02-2019 IntraOperative Documents [id number]#1 .00CD:127 Normal [facility] IntraOperative Documents [id number] .00CD:127 Normal [facility] Main OR Intraoperative Recor don 05-02-2020 Main OR Intraoperative Record IntraOp Document Type FT Summary Primary Physician: Ezequiel MARTINEZ MD Finalized Date/Time: 05/02/20 08:23:39 Pt. Name: AKHIL RAJIV Quezada/Sex: 1995 Female Med Rec #: [id number] Physician: Ezequiel MARTINEZ MD Financial #: [id number] Pt. Type: O Room/Bed: / Admit/Disch: 04/29/20 10:12:58 - 04/29/20 23:59:59 Institution: Case Times FT Entry 1 Patient Times In Room 04/29/20 10:52:00 Out Room 04/29/20 11:04:00 Procedure Times Start 04/29/20 10:56:00 Stop 04/29/20 10:59:00 Anesthesia Times Start 04/29/20 10:52:00 Stop 04/29/20 11:04:00 Last Modified By: Russell Maloney RN 04/29/20 11:04:12 General Comments: 05/02/2020 Chart opened to review and send charges. F Dagmar CLINICAL SCIENCES PROFESSOR. Case Attendance FT Entry 1 Entry 2 Entry 3 Case Attendee Rodrigue Berry DO, Bakari MARTINEZ MD, Russell Lawrence RN Role Performed Anesthesiologist of Surgeon - Primary Media Marketing Manager - Primary Record Time In 04/29/20 10:52:00 04/29/20 10:52:00 04/29/20 10:52:00 Time Out 04/29/20 11:04:00 04/29/20 11:04:00 04/29/20 11:04:00 Procedure EGD(.) EGD(.) EGD(.) Comments Last Modified By: Haider TURNER, Russell Maloney RN, Russell Santos RN 04/29/20 11:04:13 04/29/20 11:04:13 04/29/20 11:04:13 Entry 4 Entry 5 Entry 6 Case Attendee Mere TURNER, Charlotte Roberts CST, Aria Role Performed Media Marketing Manager - Primary Scrub - Primary [...] Arm P (more content not included)... [facility] Ezequiel Martinez M.D. [address] [place] [address] Re: RAJIV TOVAR Date of : 1995 [...] report following her procedure. Sincerely Aiden Kaplan [facility] Coding Summary.on 04-30-2020 Coding Summary. CODING DATE: 04/29/2020 FINAL [facility] STATUS: Home (Routine DC) PAYOR: [...] CphT Date Saved: 04/29/2020 11:14 pm [facility] Consent for Treatmenton Consent for Treatment [id number] .00CD:127 [facility] Endoscopic Procedure Report - Otheron 04-29-2020 [...] surgery for right upper quadrant pain/cholelithiasis [facility] Comment on above: Result Comment: Elec tronically Signed By: Ezequiel MARTINEZ MD\.br\Date and Time Signed: 04/29/20 11:03 EST Other Comment: Lorri frazier Attachment - attachment storage system not supported [id number] Can be viewed in source systemMissing Attachment - attachment storage system not supported [id number] Can be viewed in source systemMissing Attachment - attachment storage system not supported [id number] Can be viewed in source systemMissing Attachment - attachment storage system not supported [id number] Can be viewed in source systemMissing Attachment - attachment storage system not supported [id number] Can be viewed in source system Inpatient Patient Summaryon 04-29-2020 Inpatient Patient Summary [place] [id number] [facility] Clinical Discharge Instructions PERSON INFORMATION Name: RAJIV TOVAR PHYSICIANS Admitting Physician: Ezequiel MARTINEZ MD Attending Physician: Ezequiel MARTINEZ MD PCP: Alon Weber MD Discharge Diagnosis: Abdominal pain Comment: PATIENT EDUCATION INFORMATION Instructions: Medication Leaflets: Follow up: With: Address: When: Aiden IZQUIERDO [address], [address] [place] [address] Business (1) With: Address: When: Ezequiel [facility] [address], [place] [address] Within 2 weeks Type Location Start [facility] Follow Up [facility] 05/16/2020 1:00 PM 05/16/2020 1:15 PM Confirmed [...] times a day. Refills: 0. Comment: Normal [facility] Main OR PACU I Recordon Main OR PACU I Record PACU Phase I Document Type FT Summary Primary Physician: Ezequiel MARTINEZ MD Finalized Date/Time: 04/29/20 12:13:51 Pt. Name: RAJIV TOVAR/Sex: 1995 Female Med Rec #: [id number] Physician: Ezequiel MARTINEZ MD Financial #: [id number] Pt. Type: O Room/Bed: / Admit/Disch: 04/29/20 [...] By: Belkys Yarbrough RN 04/29/20 12:13 Normal [facility] Main OR Preoperative Recordo n 04-29-2020 Main OR Preoperative Record Holding Area Document Type FT Summary Primary Physician: Ezequiel MARTINEZ MD Finalized Date/Time: 04/29/20 10:21:44 Pt. Name: RAJIV TOVAR/Sex: 1995 Female Med Rec #: [id number] Physician: Ezequiel MARTINEZ MD Financial #: [id number] Pt. Type: O Room/Bed: / Admit/Disch: 04/29/20 [...] By: Marielle Pineda RN 04/29/20 10:21 Normal [facility] Monitor Recordon 04-29-2020 Monitor Record [id number]# 1.00CD:127 Normal [facility] Outpatient Surgery Discharge Instructionon 04-29-2020 Outpatient Surgery Discharge Instruction [place] [id number] Patient Discharge Instructions PERSON INFORMATION Name: RAJIV [...] Aiden IZQUIERDO [address], [address] [facility] [place] [address] Business (1) With: Address: When: [facility] [address] [place] [address] Within 2 weeks Type Location [facility] Follow Up [facility] 05/16/2020 1:00 PM 05/16/2020 1:15 PM Confirmed Pharmacy Information: Thank you for choosing [facility] [place] HERE ARE THE MEDICATION CHANGES THAT OCCURRED [...] Refills: 0. PATIENT EDUCATION INFORMATION Instructions: Normal [facility] Patient Education - Texton 1 06-29-2019 Patient Education - Text Normal [facility] Priority Order-Mitchell 2019 Priority Order-STAT Comment Invalid Interpretation Code [facility] Comment on above: Result Comment: Rece ived Performed at: [facility] [address] [place], [place] [id number] MD Indira Washington Performed By: #### 2 [id number], SARS-CoV-2, MARY #### [facility] [address] [place] [address] SARS-CoV-2, NAAon 04-23-2020 SARS-CoV-2 (COVID-19) RNA MARY+probe Ql (Resp) Not detected Invalid Interpretation Code Not Detected [facility] Comment on above: Result Comment: This nucleic acid amplification test was developed and its performance characteristics determined by [employer]. Nucleic acid amplification tests include PCR and [...] detected) result in this assay. Performed at: [facility] [address] [facility] [place] [id number] MD Indira Washington Performed By: #### 2 [id number], SARS-CoV-2, MARY #### [facility] [address] [place] [address] Ambulatory Clinical Summaryo n 04-20-2020 Ambulatory Clinical Summary {[id number]}CD:230055 Normal [facility] Coding Summary.on 04-20-2020 Coding Summary. CODING DATE: 04/20/2020 FINAL [facility] STATUS: Home (Routine DC) PAYOR: [place] APC DESCRIPTION 5522 Level 2 Imaging without [...] Revised Date Saved: 04/20/2020 07:55 am Normal [facility] Consent for Procedure/Surger yon 04-20-2020 Consent for Procedure/Surgery [id number] .00CD:127 Normal [facility] Gastroenterology Office/Clin ic Noteon 04-20-2020 Gastroenterology Office/Clinic Note Chief Complaint f/u to ER RUQ HPI Staff This is a 24 year old female who presents today for a follow up for an ED visit for RUQ pain. History of Present Illness 24 years old white female with no significant past medical history except for anxiety, referred to me from [facility] to be evaluated for right upper quadrant abdominal pain, she reports right upper quadrant abdominal pain, started 6 weeks ago, sporadic, moderate in nature except for the last time when it was severe for which she went to [facility], she had normal CBC, CMP [...] Daily, # 30 cap(s), Refills(s) 2, Pharmacy: [facility]/pharmacy #[id number], 168, cm, 04/20/20 10:06:00 EDT, Height/Length Dosing, 59.5, kg, 04/20/20 10:06:00 EDT, Weight Dosing EGD Endoscopy (Hospital Procedure) 2. Anxiety (F41.9: Anxiety disorder, unspecified) 3. Nausea (R11.0: Nausea) Ordered: omeprazole, 40 mg = 1 cap(s), Oral, Daily, # 30 cap(s), Refills(s) 2, [id number] 168, cm, 04/20/20 10:06:00 EDT, Height/Length Dosing, 59.5, kg, 04/20/20 10:06:00 EDT, Weight Dosing EGD Endoscopy (Hospital Procedure) Follow-up With When Contact Information Ezequiel AMRTINEZ MD Within 2 weeks [facility] [address] [facility], [place] [address]- Additional Instructions: Patient Education Abdominal [...] Family History Family history is negative Normal [facility] Comment on above: Result Comment: Elec [...] directed by your caregiver. ? Only take vfuv-pqe-bkaxkgd or prescription medicines for pain, discomfort, or [...] Document Reviewed: 01/26/2009 ExitCare? Patient Information ?2013 [employer]. Family Medicine Abdominal Pain Abdominal pain can [...] directed by your caregiver. ? Only take fkwk-ipp-powufou or prescription medicines for pain, discomfort, or [...] Document Reviewed: 01/26/2009 ExitCare? Patient Information ?2013 [employer]. Normal [facility] Physician Orderon 04-20-2020 Physician Order [id number]# 1.00CD:127 Normal [facility] Physician Order [id number]#1. 00CD:127 Normal [facility] Auto Diffon 04-19-2020 Basophils/100 WBC (Bld) 0.6 % Normal 0.0-2.0 [facility] Comment on above: Order Comment: Order Added by Discern Expert. Performed By: #### 2 [id number] #### [facility] [address] [place] [address] Basophils/Leukocytes Auto (Bld) [Pure # fraction] 0.0 E9/L Normal 0.0-0.2 [facility] Comment on above: Order Comment: Order Added by Discern Expert. Performed By: #### 2 [id number] #### [facility] [address] [place] [address] Eosinophils/100 WBC (Bld) 0.2 % Normal 0.0-8.0 [facility] Comment on above: Order Comment: Order Added by Discern Expert. Performed By: #### 2 [id number] #### [facility] [address] [place] [address] Eosinophils/Leukocyt es Auto (Bld) [Pure # fraction] 0.0 E9/L Normal 0.0-0.5 [facility] Comment on above: Order Comment: Order Added by Discern Expert. Performed By: #### 2 [id number] #### [facility] [address] [place] [address] Lymphocytes/100 WBC (Bld) 34.4 % Normal 14.0-50.0 [facility] Comment on above: Order Comment: Order Added by Discern Expert. Performed By: #### 2 [id number] #### [facility] [address] [place] [address] Lymphocytes/Leukocyt es Auto (Bld) [Pure # fraction] 2.5 E9/L Normal 1.0-4.0 [facility] Comment on above: Order Comment: Order Added by Discern Expert. Performed By: #### 2 [id number] #### [facility] [address] [place] [address] Monocytes/100 WBC (Bld) 6.1 % Normal 4.0-14.0 [facility] Comment on above: Order Comment: Order Added by Discern Expert. Performed By: #### 2 [id number] #### [facility] [address] [place] [address] Monocytes/Leukocytes Auto (Bld) [Pure # fraction] 0.4 E9/L Normal 0.2-1.0 [facility] Comment on above: Order Comment: Order Added by Discern Expert. Performed By: #### 2 [id number] #### [facility] [address] [place] [address] Neutrophils/100 WBC (Bld) 58.7 % Normal 36.0-75.0 [facility] Comment on above: Order Comment: Order Added by Discern Expert. Performed By: #### 2 [id number] #### [facility] [address] [place] [address] Neutrophils/Leukocyt es Auto (Bld) [Pure # fraction] 4.2 E9/L Normal 2.0-7.5 [facility] Comment on above: Order Comment: Order Added by Discern Expert. Performed By: #### 2 [id number] #### [facility] [address] [place] [address] BMPon 04-19-2020 Creatinine [Mass/Vol] 0.8 mg/dL Normal 0.5-1.3 [facility] Comment on above: Performed By: #### 2 [id number] #### [facility] [address] [place] [address] Urea nitrogen [Mass/Vol] 12 mg/dL Normal 5-21 [facility] Comment on above: Performed By: #### 2 [id number] #### [facility] [address] [place] [address] Urea nitrogen/Creatinine [Mass ratio] 15 No Units Normal 10- [facility] Comment on above: Performed By: #### 2 [id number] #### [facility] [address] [place] [address] Anion gap [Moles/Vol] 11 mmol/L Normal 6-16 [facility] Comment on above: Performed By: #### 2 [id number] #### [facility] [address] [place] [address] Calcium [Mass/Vol] 9.7 mg/dL Normal 8.9-11.1 [facility] Comment on above: Performed By: #### 2 [id number] #### [facility] [address] [place] [address] Chloride [Moles/Vol] 103 mmol/L Normal 101-111 [facility] Comment on above: Performed By: #### 2 [id number] #### [facility] [address] [place] [address] CO2 [Moles/Vol] 27 mmol/L Normal 21-31 [facility] Comment on above: Performed By: #### 2 [id number] #### [facility] [address] [place] [address] Glucose [Mass/Vol] 97 mg/dL Normal 55-199 [facility] Comment on above: Result Comment: If t his glucose result represents a fasting glucose, interpretation should refer to the following reference range: 55-99 mg/dL Performed By: #### 2 [id number] #### [facility] [address] [place] [address] Potassium [Moles/Vol] 3.5 mmol/L Normal 3.5-5.3 [facility] Comment on above: Performed By: #### 2 [id number] #### [facility] [address] [place] [address] Sodium [Moles/Vol] 137 mmol/L Normal 135-145 [facility] Comment on above: Performed By: #### 2 [id number] #### [facility] [address] [place] [address] CBC w/ Auto Diffon 10--202 0 Erythrocyte distribution width (RBC) [Ratio] 13.3 % Normal 10.9-14.2 [facility] Comment on above: Performed By: #### 2 [id number] #### [facility] [address] [place] [address] Hematocrit (Bld) [Volume fraction] 37.6 % Normal 34.0-46.0 [facility] Comment on above: Performed By: #### 2 [id number] #### [facility] [address] [place] [address] Hemoglobin (Bld) [Mass/Vol] 13.4 g/dL Normal 12.0-16.0 [facility] Comment on above: Performed By: #### 2 [id number] #### [facility] [address] [place] [address] MCH (RBC) [Entitic mass] 31.9 pg Normal 27.0-34.0 [facility] Comment on above: Performed By: #### 2 [id number] #### [facility] [address] [place] [address] MCHC (RBC) [Mass/Vol] 35.7 g/dL Normal 31.4-36.0 [facility] Comment on above: Performed By: #### 2 [id number] #### [facility] [address] [place] [address] MCV (RBC) [Entitic vol] 89.2 fL Normal 80.0-100.0 [facility] Comment on above: Performed By: #### 2 [id number] #### [facility] [address] [place] [address] Platelet mean volume (Bld) [Entitic vol] 9.4 fL Normal 6.4-10.8 [facility] Comment on above: Performed By: #### 2 [id number] #### [facility] [address] [place] [address] Platelets (Bld) [#/Vol] 219.0 E9/L Normal 150.0-500.0 [facility] Comment on above: Performed By: #### 2 [id number] #### [facility] [address] [place] [address] RBC (Bld) [#/Vol] 4.2 E12/L Low 4.3-5.9 [facility] Comment on above: Performed By: #### 2 [id number] #### [facility] [address] [place] [address] WBC corrected for nucl RBC Auto (Bld) [#/Vol] 7.2 E9/L Normal 4.0-11.0 [facility] Comment on above: Performed By: #### 2 [id number] #### [facility] [address] [place] [address] Consent for Treatmenton 03-25 Consent for Treatment [id number]#1 .00CD:127 Normal [facility] Discharge Instructionson Discharge Instructions [id number]# 1.00CD:127 Normal [facility] ED Clinical Summaryon 2019 ED Clinical Summary [address] [id number] ED Clinical Summary Person Information [facility] Age[facility] 24 Years : 1995 Sex: Female Language: Chinese PCP: Alon Weber MD Marital Status: Single [...] 08:58:55 04/19/2020 08:58:55 04/19/2020 08:58:55 ADDRESS: [address] [facility] [id number] PHYS DOC NOTES: Addendum by Laureano Phillip DO on April 19, 2020 08:26:02 EDT MEDICAL INFORMATION: Prescriptions Given: New Medications [id number], [address], [place] [id number], [phone] dicyclomine (dicyclomine 20 mg Tab) 1 Tablets By Mouth 3 times a day for 7 Days. Refills: 0. ondansetron (Zofran ODT 4 mg Tab) 1 Tablets By Mouth 3 times a day. Refills: 0. PATIENT EDUCATION INFORMATION: Instructions: Cholelithiasis Follow up: With: Address: When: [facility], [address] [place] [address] Business (1) In 3 days 04/22/2020 DIAGNOSIS: 1:Abdominal pain; Biliary colic; Gall stone; Nausea Normal [facility] ED Note-Nursingon 04-19-2020 ED Note-Nursing Report received from Zacarias Cuevas RN. Patient resting on cart. Updated on plan of care. Denies any needs at this time. Call light in reach. Normal [facility] ED Note-Physicianon 04-19-20 ED Note-Physician Basic [...] Diagnosis: Abdominal pain, cholelithiasis, biliary colic Normal [facility] Comment on above: Result Comment: Elec [...] medicine. HOME CARE INSTRUCTIONS ? Only take vydw-bhc-jczobij or prescription medicines for pain, discomfort, or [...] Document Reviewed: 12/02/2013 ExitCare? Patient Information ?2015 [employer]. This information is not intended to replace advice given to you by your health care provider. Make sure you discuss any questions you have with your health care provider. Normal [facility] ED Patient Summaryon 020 ED Patient Summary [address] [id number] Patient Discharge Instructions Person Information Name: RAJIV TOVAR Age: 24 Years Arrival Date: 04/19/2020 06:10:12 Discharge Diagnosis: 1:Abdominal pain; Biliary colic; Gall stone; Nausea Primary Care Physician: Alon Weber MD Provider Information Primary Provider: Susana eBlcher M.D. Advanced Sr. Vendor Management Associate:None The exam and treatment you received in the Emergency Department were for an urgent problem and are not intended as complete care. It is important that you follow up with a doctor, nurse practitioner, or physician?s trading assistant for ongoing care. If your symptoms become worse or you do not improve as expected and you are unable to reach your usual health care provider, you should return to the Emergency Department. We are available 24 hours a day. RAJIV TOVAR has been given the following list of patient education materials, prescriptions and follow-up instructions: Follow-up Instructions: With: Address: When: [facility], [address] [address] Business (1) In 3 days 04/22/2020 In the event that this physician does not participate in your insurance network, please consult with your insurance company to find a nearby participating provider. Patient Education Materials: Cholelithiasis A MESSAGE TO ALL PATIENTS REGARDING OPIOIDS PRESCRIPTION OPIOIDS: WHAT YOU NEED TO KNOW Prescription opioids can be used to help relieve cgwynpgl-pw-txnpyy pain and are often prescribed following a [...] be struggling with addiction, tell your health child care attendant school and ask for guidance or call [facility]?S National Helpline at 2-161-5 (more content not included)... Normal [facility] Hep Func Panelon 04-19-2020 Bilirubin.indirect [Mass or moles/Vol] UTC Abnormal 0.1-0.9 [facility] Comment on above: Result Comment: Resu lt verified by Discern Rule. Performed result UTC (Unable to Calculate) was sent as an Alpha code due the inability to calculate a valid numeric value. Performed By: #### 2 [id number] #### [facility] [address] [place] [address] Albumin [Mass/Vol] 4.3 g/dL Normal 3.3-5.0 [facility] Comment on above: Performed By: #### 2 [id number] #### [facility] [address] [place] [address] Albumin/Globulin (S) [Mass conc ratio] 1.5 Normal 1.1-2.2 [facility] Comment on above: Performed By: #### 2 [id number] #### [facility] [address] [place] [address] ALP [Catalytic activity/Vol] 77 Int._Unit/L Normal 21-98 [facility] Comment on above: Performed By: #### 2 [id number] #### [facility] [address] [place] [address] ALT No additional P-5'-P [Catalytic activity/Vol] 59 Int._Unit/L High 6-46 [facility] Comment on above: Performed By: #### 2 [id number] #### [facility] [address] [place] [address] AST [Catalytic activity/Vol] 36 Int._Unit/L Normal 5-43 [facility] Comment on above: Performed By: #### 2 [id number] #### [facility] [address] [place] [address] Bilirubin [Mass/Vol] 0.4 mg/dL Normal 0.0-1.1 [facility] Comment on above: Performed By: #### 2 [id number] #### [facility] [address] [place] [address] Bilirubin.direct [Mass/Vol] mg/dL Normal 0.1-0.4 [facility] Comment on above: Performed By: #### 2 [id number] #### [facility] [address] [place] [address] Globulin (S) [Mass/Vol] 2.8 g/dL Normal 1.4-4.0 [facility] Comment on above: Performed By: #### 2 [id number] #### [facility] [address] [place] [address] Protein [Mass/Vol] 7.1 g/dL Normal 6.0-7.8 [facility] Comment on above: Performed By: #### 2 [id number] #### [facility] [address] [place] [address] Lipase Levelon 04-19-2020 Lipase [Catalytic activity/Vol] 43 U/L Normal 13-58 [facility] Comment on above: Performed By: #### 2 [id number] #### [facility] [address] [place] [address] PT & PTTon 04-19-2020 aPTT Coag (PPP) [Time] 30.2 second(s) Normal 25.1-36.5 [facility] Comment on above: Result Comment: Hepa rin therapeutic range (represented by Anti-Factor Xa activity of 0.2 - 0.4 U/mL) corresponds to PTT of 56.6 - 109.0 sec. Performed By: #### 2 [id number] #### [facility] [address] [place] [address] INR Coag (PPP) [Relative time] 1.0 {INR} Invalid Interpretation Code [facility] Comment on above: Result Comment: INR results are specifically intended to assess patients stabilized on long-term Anticoagulation therapy suggested INR?s ?Less Intensive Anticoagulation? 2.0 ? 3.0 Conventional Range 3.0 ? 4.5 Performed By: #### 2 [id number] #### [facility] [address] [place] [address] PT Coag (PPP) [Time] 11.8 second(s) Normal 10.2-12.9 [facility] Comment on above: Performed By: #### 2 [id number] #### [facility] [address] [place] [address] Prescriptions/Work Noteson 1 Prescriptions/Work Notes [id number]# 1.00CD:127 Normal [facility] U BetaHcg Qualon 04-19-2020 HCG.beta subunit (U) [Moles/Vol] Negative Normal [facility] Comment on above: Performed By: #### 2 [id number] #### [facility] [address] [place] [address] UA With Cult Reflexon 2019 Bacteria LM Ql (Urine sed) TRACE Normal Trace [facility] Comment on above: Performed By: #### 2 [id number] #### [facility] [address] [place] [address] Bilirubin Ql (U) Negative Normal Negative [facility] Comment on above: Performed By: #### 2 [id number] #### [facility] [address] [place] [address] Clarity (U) CLEAR Normal Clear [facility] Comment on above: Performed By: #### 2 [id number] #### [facility] [address] [place] [address] Color (U) YELLOW Normal Yellow [facility] Comment on above: Performed By: #### 2 [id number] #### [facility] [address] [place] [address] Crystals LM Ql (Urine sed) Present Normal [facility] Comment on above: Performed By: #### 2 [id number] #### [facility] [address] [place] [address] Epithelial cells.squamous LM.HPF (Urine sed) [#/Area] 3-4 Normal 0-2 [facility] Comment on above: Performed By: #### 2 [id number] #### [facility] [address] [place] [address] Glucose Test strip (U) [Mass/Vol] Negative Normal Negative [facility] Comment on above: Performed By: #### 2 [id number] #### [facility] [address] [place] [address] Hemoglobin Ql (U) TRACE Abnormal Negative [facility] Comment on above: Performed By: #### 2 [id number] #### [facility] [address] [place] [address] Ketones (U) [Mass/Vol] Negative Normal Negative [facility] Comment on above: Performed By: #### 2 [id number] #### [facility] [address] [place] [address] Deputy.plasma/Lithi um.RBC (Bld) [Mass ratio] 0-3 Normal 0-3 [facility] Comment on above: Performed By: #### 2 [id number] #### [facility] [address] [place] [address] Nitrite Ql (U) Negative Normal Negative [facility] Comment on above: Performed By: #### 2 [id number] #### [facility] [address] [place] [address] pH (U) 6.5 [pH] Invalid Interpretation Code 5.0-9.0 [facility] Comment on above: Performed By: #### 2 [id number] #### [facility] [address] [place] [address] Protein (U) [Mass/Vol] Negative Normal Negative [facility] Comment on above: Performed By: #### 2 [id number] #### [facility] [address] [place] [address] Specific gravity (U) [Rel density] 1.025 Invalid Interpretation Code 1.005-1.030 [facility] Comment on above: Performed By: #### 2 [id number] #### [facility] [address] [place] [address] UA Spec Desc Clean Catch Normal [facility] Comment on above: Performed By: #### 2 [id number] #### [facility] [address] [place] [address] Urobilinogen Qn (U) 0.2 {Arnie'U}/dL Normal 0.0-1.0 [facility] Comment on above: Performed By: #### 2 [id number] #### [facility] [address] [place] [address] WBC Auto Ql (U) Negative Normal Negative [facility] Comment on above: Performed By: #### 2 [id number] #### [facility] [address] [place] [address] WBC LM.HPF (Urine sed) [#/Area] 0-5 Normal 0-5 [facility] Comment on above: Performed By: #### 2 [id number] #### [facility] [address] [place] [address] US Abdomen, Limitedon 2019 US Abdomen, Limited [...] M.D. Transcribed by: OLGA Technologist: RENETTA Kaplan [facility] eGFRon 04-19-2020 GFR/1.73 sq M.predicted among blacks MDRD (S/P/Bld) [Vol rate/Area] mL/min/{1.73_m2} Normal >=59 [facility] Comment on above: Order Comment: Order added by Discern Expert. Result Comment: eGFR is race adjusted. AA=. Performed By: #### 2 [id number] #### [facility] [address] [place] [address] GFR/1.73 sq M.predicted among non-blacks MDRD (S/P/Bld) [Vol rate/Area] mL/min/{1.73_m2} Normal >=59 [facility] Comment on above: Order Comment: Order added by Discern Expert. Result Comment: Spa Coordinator bib kidney disease could be indicated at eGFR's of less than 60 mL/min/1.73m2. Kidney failure is indicated at less than 15 mL/min/1.73m2. Performed By: #### 2 [id number] #### [facility] [address] [place] [address] Encounters Encounter Date Encounter Type Care Provider [...] DERM [address] [place] [id number] My Singh MD [address] [place], [place] [id number] [facility] Start: 08-22-2023 End: 08-22-2023 Patient encounter procedure 08/22/2023 11:50 AM EST Office Visit [facility] [address] [place] [address] Flynn Archibald, DO [address] [place] [address] [place] [address] [facility] Payers Date Payer Category Payer Unknown [id number] 1995 Unknown [id number] 2.16.84 [id number] 1995 Unknown [id number] 2.16.84 0.1.042372.3.579.2.593 1995 Unknown [id number] 2.16.84 0.1.600496.3.579.2.593 1995 Unknown [id number] 2.16.84 0.1.626183.3.579.2.593 1993 Unknown [id number] 2.16.84 0.1.011684.3.579.2.593 1993 Unknown [id number] 2.16.84 0.1.741482.3.579.2.1259 1993 Unknown [id number] 2.16.84 0.1.391553.3.579.2.1259 1993 Unknown [id number] 2.16.84 0.1.887107.3.579.2.1259 1993 Unknown [id number] 2.16.84 0.1.229659.3.579.2.1259 1993 Unknown [id number] 2.16. 840.1.037807.3.579.2.196 1995 Unknown [id number] 2.16. 840.1.913797.3.579.2.196 1995 Unknown [id number] 2.16. 840.1.598469.3.579.2.196 1961 Unknown [id number] Social History Date Type Detail Facility Tobacco smoking stat [facility] Tobacco smoking consumption unknown [facility] Start: 1995 Sex Assigned At Not on file [facility] Start: 08-08-2023 Gender identity Not on file [facility] Start: 08-08-2023 Tobacco smoking stat [facility] Never smoked tobacco [facility] Start: [...] CC: Dr. Alon Weber [facility] Consultation note 07-18-2021 Note Date & Type [...] like to proceed. CC: Dr. Alon Weber [facility] Signed and Approved by: DR AKASH MARTINEZ . 07/25/2021 08:02:00 [facility] Clinical Note 02-28-2021 Note Date & Type Note Facility 02-28-2021 Note Infectious Disease COVID-19: How to Protect Yourself and Others Know how it spreads ? There is currently no vaccine to prevent coronavirus disease 2019 (COVID-19). ? The best way to prevent illness is to avoid being exposed to this virus. ? The virus is thought to spread mainly from dudueq-bb-hzousk. ? Between people who are in close [...] are not readily available, use a hand beater head that contains at least 60% alcohol. Cover [...] at higher risk of getting very sick.www.cdc.gov/coronavirus/2019-ncov/n xpr-gruuh-kjxygafqlhk/kzttos-sr-aeeaui-r isk.html Cover your mouth and nose with [...] available, clean your hands with a hand beater head that contains at least 60% alcohol. Clean and disinfect ? Clean AND disinfect frequently touched surfaces daily. This includes tables, doorknobs, light switches, countertops, handles, desks, phones, keyboards, toilets, faucets, and sinks. www.cdc.gov/coronavirus/2019-ncov/preven a-boqxsqk-plsq/bpqcciojkdin-ztms-iafs.ht ml ? If surfaces are dirty, clean [...] 10/06/2019 Document Revised: 12/31/2019 Document Reviewed: 12/31/2019 [employer] Patient Education ? 2019 edenes. COVID-19 Frequently Asked Questions COVID-19 (coronavirus disease) is an infection that is caused by a large family of viruses. Some viruses cause illness in people and others cause illness in animals like camels, cats, and bats. In some cases, the viruses that cause illness in animals can spread to humans. Where did the coronavirus come from? In May 2019, [place] told the World Health Organization (WHO) of several cases of lung disease (human respiratory illness). These cases were linked to an open seafood and livestock market in the city of [facility]. The link to the seafood and [...] naming World Health Organization (WHO): www.who.int/emergencies/diseases/novel-c oronavirus-2019/technical-guidance/joe moroei-jkk-sbaftjvcbsz (more content not included)... [facility] History and physical note 05-05-2020 Note Date & Type Note Facility 05-05-2020 Note [id number] #1.00CD:127 [facility] History and physical note 05-02-2020 Note Date & Type Note Facility 05-02-2020 Note [id number] #1.00CD:127 [facility] Evaluation note Note Date & Type [...] section and content) DATE CREATED AUTHOR 03/05/2021 [facility] DATE CREATED AUTHOR AUTHOR'S ORGANIZ ATION 04/10/2021 [facility] DATE CREATED AUTHOR AUTHOR'S ORGANIZ ATION 07/02/2022 [facility] DATE CREATED AUTHOR AUTHOR'S ORGANIZ ATION 10/21/2023 [facility]ical [facility] DATE CREATED AUTHOR AUTHOR'S ORGANIZ ATION 01/18/2024 [facility] Reason for Visit (unrecogniz ed section and [...] BE BASED ON THE PRIMARY CLINICAL RECORDS. [facility] [employer] [facility]. provides no warranty or guarantee of the accuracy or completeness of information in this document.
--- NOTE | 2024-02-19 10:45 | P.CN_ITS ---
Consult Note: HPI Data of Consult Patient: known to practice within the last 3 years Consult date: 12/23/23 Requesting Physician: Estelita Teran NP Primary Care Provider: Sixto Gomez MD Consult Narrative Reason for consult: low back pain Narrative: 28yof who presents for assessment. continues to note significant axial pain worsened with standing and ambulation. lumbar mri reviewed, which did not show any disc herniations. continues to engage in a series of provider directed home exercises for >6 weeks, without any significant benefit. uses OTC pain meds and NSAIDs as necessary, but does not like taking medications. recently underwent bilateral L4-5 L5-S1 facet medial branch block #1 and #2 with >80% improvement in pain and functional ability immediately after and hours following the procedure. cc:: CC: Estelita Teran NP Review of Systems ROS Status of ROS 10 or more systems reviewed and unremark able except as noted in history and below Musculoskeletal Reports: back pain PFSH PFSH Medical History (Updated 01/28/24 @ 14:04 by Cherie Cuevas NP) Pain of joint of left ankle and foot ?M25.572 - Pain in left ankle and joints of left foot (ICD-10) Primary osteoarthritis, left ankle and foot ?M19.072 - Primary osteoarthritis, left ankle and foot (ICD-10) Painful orthopaedic hardware ?T84.84XA - Pain due to internal orthopedic prosthetic devices, implants and grafts, initial encounter (ICD-10) Insomnia ?G47.00 - Insomnia, unspecified (ICD-10) PTSD (post-traumatic stress disorder) ?F43.10 - Post-traumatic stress disorder, unspecified (ICD-10) Panic attacks ?F41.0 - Panic disorder [episodic paroxysmal anxiety] (ICD-10) Depression ?F32.A - Depression, unspecified (ICD-10) Anxiety ?F41.9 - Anxiety disorder, unspecified (ICD-10) COVID-19 ?U07.1 - COVID-19 (ICD-10) Migraine ?G43.909 - Migraine, unspecified, not intractable, without status migrainosus (ICD-10) Endometriosis ?N80.9 - Endometriosis, unspecified (ICD-10) Pelvic pain ?R10.2 - Pelvic and perineal pain (ICD-10) Heart murmur ?R01.1 - Cardiac murmur, unspecified (ICD-10) Hyperthyroidism ?E05.90 - Thyrotoxicosis, unspecified without thyrotoxic crisis or storm (ICD-10) Postoperative nausea and vomiting ?R11.2 - Nausea with vomiting, unspecified (ICD-10) ?Z98.890 - Other specified postprocedural states (ICD-10) Surgical History S/P epidural steroid injection ?Z92.241 - Personal history of systemic steroid therapy (ICD-10) H/O laparoscopy (10/11/23) ?Z98.890 - Other specified postprocedural states (ICD-10) History of cholecystectomy ?Z90.49 - Acquired absence of other specified parts of digestive tract (ICD- 10) History of laparoscopy ?Z98.890 - Other specified postprocedural states (ICD-10) History of section ?Z98.891 - History of uterine scar from previous surgery (ICD-10) History of ankle surgery ?Z98.890 - Other specified postprocedural states (ICD-10) History of ankle surgery ?Z98.890 - Other specified postprocedural states (ICD-10) History of ankle surgery ?Z98.890 - Other specified postprocedural states (ICD-10) Family History Other Family history of breast cancer Family history of hypertension Family history of leukemia Family history of lung cancer Social History Within the past year, how often did you have a drink containing alcohol: monthly or less Smoking status: Never smoker Non-prescribed substance use: denies use 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 Highest level of school completed/degree received: high school graduate Meds Home Medications and Allergies Home Medications ?Medication ?Instructions ?Recorded ?Confirmed ?Type drospirenone 3 mg-ethinyl 1 tab PO DAILY 07/01/23 02/17/24 History estradiol 0.03 mg tablet hydroxyzine pamoate 50 mg capsule 50 mg PO Q6H PRN nausea and 07/01/23 02/17/24 History vomiting venlafaxine 150 mg 150 mg PO DAILY 07/01/23 02/17/24 History capsule,extended release 24 hr valacyclovir 500 mg tablet 500 mg PO Q12H PRN skin breakout 10/02/23 02/17/24 History ibuprofen 800 mg tablet 800 mg PO Q8H PRN pain 14 days #40 10/11/23 02/17/24 Rx tabs prazosin 1 mg capsule 1 mg PO QPM 11/25/23 02/17/24 History aripiprazole 5 mg tablet (Abilify) 5 mg PO DAILY 02/17/24 02/17/24 History lamotrigine 25 mg tablet 25 mg PO DAILY 02/17/24 02/17/24 History Allergies Allergy/AdvReac Type Severity Reaction Status Date / Time Penicillins Allergy Hives Verified 02/17/24 09:04 Sulfa (Sulfonamide Allergy Hives Verified 02/17/24 09:04 Antibiotics) hydrocodone AdvReac Intermediate Hives Verified 02/17/24 09:04 oxycodone AdvReac Intermediate Hives Verified 02/17/24 09:04 Exam Constitutional Documenting provider has reviewed patient's vital signs: yes Common normals: no apparent distress, oriented x3, healthy appearing, alert and well nourished General appearance: cooperative [facility] Common normals: normocephalic, hearing grossly normal bilaterally and moist oral mucous membranes Head and scalp: normocephalic Eye Common normals: PERRL Pupil: PERRL Neck & C-Spine Common normals: full ROM General: normal visual inspection Chest Common normals: inspection of chest normal Respiratory Common normals: normal respiratory effort, no retractions and no use of accessory muscles Back & Pelvis Lumbar spine/lower back: ROM limited, pain with ROM and straight leg raise negative bilaterally Sacroiliac joints: SI joints normal Other: facet loading positive bilaterally tenderness over bilateral L4-S1 facets strength 5/5 in BLE, sensation intact BLE Extremity Common normals: normal to inspection and full ROM Neuro Common normals: oriented x3, CN's II-XII intact bilaterally, moves all extremities, no focal motor deficits, no sensory deficits noted, deep tendon reflexes 2+ bilaterally and gait normal Sensorium/orientation: alert Motor exam: strength 5/5 throughout and no movement abnormalities noted Psych Common normals: mental status grossly normal, thought process normal, cooperative, affect normal, speech normal and activity/motor behavior normal Speech: normal speech Thought process: normal thought process Results Additional Findings Additional findings: If on a controlled substance or opioids, I have checked an [place] report on this patient and there are no aberrancies noted in the prescribing history.??If on a controlled substance or opioid a drug screen was completed and reviewed within the last year, and if there has not been a drug screen completed we ordered one today to monitor higher risk, state monitored pain medication use. As part of providing excellent, safe, comprehensive care, the following was completed at our patient's visit: 1. A medication reconciliation and review to ensure accurate knowledge of current/active medications, including asking our patients to inform us about any [id number] medications or herbal remedies/nutritional supplements/alternative remedies. 2. A review to specifically ensure our patients have had annual screening for screening for depression, screening for tobacco use, and screening for unhealthy alcohol use. For concerning screenings had a discussion with the patient, provided patient education, and recommended follow-up with primary care provider when appropriate. If patient noted with a risk of falling, they received education on strength, gait, and balance training to prevent future risk of falling. Assessment and Plan Assessment and Plan (1) Lumbar spondylosis: Plan 28yof who presents for assessment. failed conservative measures, as noted. imaging reviewed, as noted. given symptoms and imaging, bilateral l4-5, l5-s1 medial branch radiofrequency ablation. she is in agreement. meds reviewed, no changes. follow up after procedure.
== END 2024-02-19 09:46 | disposition home or self-care (01) ==
LOC: PM 09:45
PROVIDERS: PCP Family Medicine; Visit Provider Nurse Practitioner
DX: M47.816 Spondylosis without myelopathy or radiculopathy, lumbar region (principal)
CPT/HCPCS: G0463

== ENCOUNTER 2024-03-03 11:42 | Outpatient (OUT) | payer BC, SELFPAY ==
[2024-03-03 12:10] LABS: Basophils Absolute Auto 0.1 10^3/uL (0.0-0.1); Basophils Percent Auto 1.2 % (0.2-2.0); Eosinophils Absolute Auto 0.2 10^3/uL (0.0-0.7); Eosinophils Percent Auto 2.7 % (0.9-7.0); Hematocrit 44.5 % (36.0-48.0); Immature Granulocytes Abs Auto 0.01 10^3/uL (0.00-0.03); Immature Granulocytes Pct Auto 0.2 % (0.0-0.5); Lymphocytes Absolute Auto 2.4 10^3/uL (1.2-3.8); Lymphocytes Percent Auto 39.7 % (20.5-60.0); Mean Corpuscular HGB Conc 33.7 g/dL (29.9-35.2); Mean Corpuscular Hemoglobin 31.3 pg (26.7-34.0); Mean Corpuscular Volume 92.7 fL (81.0-99.0); Mean Platelet Volume 10.4 fL (9.5-13.5); Monocytes Absolute Auto 0.3 10^3/uL (0.3-0.8); Monocytes Percent Auto 5.2 % (1.7-12.0); Neutrophils Absolute Auto 3.1 10^3/uL (1.4-6.5); Platelet Count 313 10^3/uL (150-450); Red Cell Distribution Width 11.9 % (11.0-15.0)
[2024-03-03 12:40] LABS: Free T4 0.88 ng/dL (0.76-1.46)
[2024-03-03 12:42] LABS: Estimated Average Glucose 97 mg/dL
[2024-03-03 12:56] LABS: Thyroid Stimulating Hormone 1.676 uIU/mL (0.358-3.740)
[2024-03-03 12:57] LABS: HCG Quantitative <1 mIU/mL
[2024-03-04 04:08] LABS: Estradiol 66.5 pg/mL (.); FSH 5.2 mIU/mL (.); Luteinizing Hormone(LH) 15.5 mIU/mL (.); Progesterone 0.1 ng/mL (.)
== END 2024-03-03 11:43 | disposition home or self-care (01) ==
LOC: LAB 11:43
PROVIDERS: PCP Family Medicine; Visit Provider Obstetrics & Gynecology
DX: E28.2 Polycystic ovarian syndrome (principal); E34.9 Endocrine disorder, unspecified; R23.2 Flushing; R63.5 Abnormal weight gain
CPT/HCPCS: 36415; 82626; 82627; 82670; 83001; 83002; 83036; 84144; 84439; 84443; 84702; 85025

== ENCOUNTER 2024-03-09 07:35 | Day surgery (SDC) | payer BC, SELFPAY ==
--- OUTSIDE RECORDS SUMMARY | 2024-03-09 07:40 | XMS_ITS | CCD ---
Author Organization [facility] CliniSytn Care Team Providers Care Systems Analyst Engineer Name Role Phone MICHELLE, DR AKASH Murray [...] Murray Consulting Unavailable Unavailable Primary Care Provider Unavailmarly Maldonado MD, Harley Simmons Attending Unavailable Erica POLK, Andrius Simmons Attending Unavailable Erica POLK, Andrius Simmons Attending Unavailable MY SINGH Attending Unavailable FLYNN ARCHIBALD Attending Unavailable FLYNN ARCHIBALD Attending Unavailable LEWIS SEWELL Attending Unavailable FLYNN ARCHIBALD Attending Unavailable Allergies Allergy Classification Reported Allergen(s) Allergy Type Date of Onset Reaction(s) Facility (2 sources) HYDROcodone Drug Allergy 5 [facility] (2 sources) oxyCODONE Drug Allergy 5 [facility] (2 sources) Penicillins Drug allergy (disorder) 5 [facility] (3 sources) Acetaminophen / HYDROcodone Drug Allergy 4 Unknown [facility] (3 sources) HYDROcodone Drug Allergy 4 Hives [facility] Work Phone: (3 sources) oxyCODONE Drug Allergy 4 Hives [facility] (3 sources) Penicillin G Drug Allergy 4 [facility] (3 sources) Penicillin G sodium Allergy to substance 4 Rash [facility] (3 sources) Penicillins Drug Allergy 4 Hives [facility] (3 sources) Sulfamethoxazole / Trimethoprim Drug Allergy 4 Rash [facility] (3 sources) Sulfonamides (Antibiotic) Drug Allergy 4 [facility] Medications Current Medications Medication Drug [...] Episodic Other aftercare (1 source) 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; 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] Onset: 09-05-2021 Episodic Other upper respiratory infections (1 source) Acute upper respiratory infection, unspecified; Translations: [ACUTE UP RESPIRATORY INFECTION UNS] Onset: 09-05-2021 Episodic Unclassified (1 source) COUGH, UNSPECIFIED; Translations: [COUGH, UNSPECIFIED] Onset: 09-03-2021 Results Test Name Value Interpretation Reference Range Facility Covid-19 PCR ([facility])on 08-22 SARS-CoV-2 (COVID-19) RNA MARY+probe Ql (Unsp spec) Not detected Normal NOT DETECTED [facility] Comment on above: Result Comment: This test is not yet approved or cleared by the [place] FDA. When there are no FDA-approved or cleared tests available, and other criteria are met, FDA can make tests available under an emergency access mechanism called an Emergency Use Authorization (EUA). The EUA for this test is supported by the Cyber Crime Investigator of Health and Human Service's (HHS's) declaration [...] consistent with SARS-CoV-2. Performed By: #### C [facility] #### [facility] [address] [place] [address] Dr. Karlos Augustin GROUP A STREP CULTUREon 08-22 S. pyogenes Ag Ql (Unsp spec) Culture Observations: NEGATIVE FOR GROUP A STREPTOCOCCUS. Normal [facility] Comment on above: Performed By: #### S ДМИТРИЙ GRASTCX #### [facility] [address] [place] [address] Dr. Karlos Augustin INFLUENZA A AND B AGon 09-03 INFLUANEGH SEE BELOW Normal [facility] Comment on above: Result Comment: Nega tive for Flu A protein angiten. Infection due to Flu A cannot be ruled out. Flu A angiten in the sample may be below the detection limit of the test. Performed By: #### I NFLUAB #### [facility] [address] [place] [address] Dr. Karlos Augustin INFLUBNEG SEE BELOW Normal [facility] Comment on above: Result Comment: Nega tive for Flu B protein antigen. Infection due to Flu B cannot be ruled out. Flu B antigen in the sample may be below the detection limit of the test. Performed By: #### I NFLUAB #### [facility] [address] [place] [address] Dr. Karlos Augustin INFLUENZA A AG Negative Normal NEGATIVE SEE COMMENT [facility] Comment on above: Performed By: #### I NFLUAB #### [facility] [address] [place] [address] Dr. Karlos Augustin INFLUENZA B AG Negative Normal NEGATIVE SEE COMMENT [facility] Comment on above: Performed By: #### I NFLUAB #### [facility] [address] [place] [address] Dr. Karlos Augustin INTERNAL CONTROLS Within Normal Limits Normal Wi thin Normal Limits [facility] Comment on above: Performed By: #### I NFLUAB #### [facility] [address] [place] [address] Dr. Karlos Augustin STREPT SCREENon 09-03-2021 STREP SCREEN A Negative Normal NEGATIVE [facility] Comment on above: Performed By: #### S ДМИТРИЙ GRASTCX #### [facility] [address] [address] [address] Karlos Augustin PREG HCG QUALon 08-01-2021 , QUAL Negative Normal NEGATIVE [facility] Comment on above: Performed By: #### P REG #### [facility] [address] [address] [address] Karlos Augustin PREG HCG QUALon 07-04-2021 , QUAL Negative Normal NEGATIVE [facility] Comment on above: Performed By: #### P REG #### [facility] [address] ABDOMEN AND PELVIS W IV C [facility] 04-05-2021 CT ABDOMEN AND PELVIS W IV CONTRAST [facility] Department of Radiology [address] [place] [id number] Patient Name: RAJIV TOVAR : 1995 Sex: F Age: Race: White Pt. Location: [facility] Patient Status: D Ordered Date: 03/21/2021 4:00:00 PM Completed Date: 04/05/2021 03:49 PM Requesting Provider: ДМИТРИЙ CALLAHAN Attending Provider: ДМИТРИЙ CALLAHAN Report Copy To: ALON WEBER Signs & Symptoms: R10.31 Right lower quadrant pain I10 History: [place] Is patient on meds for HTN or DM? 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 Per [employer] for CPT 43356 Ref#[id number] Med Nec-Passed *SLA Comments: Exam: CT ABDOMEN [...] Electronically signed: Noemy Stanley M.D.. Transcribed by: [email or web address], User Resident: Electronically Signed by: NOEMY STANLEY @ 04/07/2021 01:25 PM Normal [facility] CHEST 2 [facility] 03-21-2021 [facility] CHEST 2 [facility] Department of Radiology [address] [place] [id number] Patient Name: RAJIV TOVAR : 1995 Sex: F Age: Race: White Pt. Location: [facility] Patient Status: D Ordered Date: 03/21/2021 2:25:00 PM Completed Date: 03/21/2021 02:22 PM Requesting Provider: ДМИТРИЙ CALLAHAN Attending Provider: Report Copy To: Signs & Symptoms: R07.81 Pleurodynia I10 History: [place] Comments: right ribs pain Exam: [facility] CHEST 2 VWS [facility] CHEST 2 VWS 03/21/2021 2:22 PM CLINICAL [...] disease Electronically signed: Cyril Olivo. Transcribed by: [email or web address], User Resident: Electronically Signed by: CYRIL OLIVO @ 03/22/2021 02:39 PM Normal [facility] Comment on above: Order Comment: right ribs pain Coding Summary.on 03-03-2021 Coding Summary. CD:[id number] h0bWw+PGhlYWQ+XF9DIQJ qU31xsKWtsT3TU2jNYT3G HDNGHUBEEY8KCJ7cyPC6D EpqD2BxwfHf FnanfJOtRA68KLr5NNO9m IdsBImnaV8atCSnG6n6Ry FiWD17aG36QIjdAVEsTdD 3LjZpbjsgbWFy T3ooPkOdnLYmWik+PHRhY mxlIHdpZHRoPScxMDAlJy IolDazFC6kRp2lKUZtGOD vbGxhcHNlOiBj f4zpCGFyOPyyZV5lePmzO 5YgmWH4JTRls8y9Gi20mE I+OBTxQDO3oHqtHZdtl48 3KeOwk6gnAOC4 wVKzVBbpIFZ7Z93iu7Y4L FNrAGYzINE9lNH0fH3jiK lezhyeF6FpqTVcIgX3RDC 2oTOcbT1avFdw mnrbuU3uUre+N30EGJ4FO UHPHP7TIsy6O3PoPvyerE I+SG15PBXwUR51pITpgLC wl8ukgLg1JaAy WWCzLWP8mAjvUEyyi0XvO NDhU93mmUGcw6O5NIRzxW gtyHMbObQmcHP2oD3jTIn zchwsg9oiryjp Ojubt0xzhm50pS66X31xR TvtWUJdESI1VQRsHIMmmK znqb6ntN5iTq2+UXrlb1d uj1yjvOl2BzRl QQEuplRdqTovYLH9v4FzB x60O5OwbKqmd3FcMnb9vt 85bZNcc2X5fMQ4TOcdSOI hmJ6jZRxpBtE3 LWKcYmLqzO22sJCvQXreK l1ljHdbvHwoXH4zFULcmq fyTMHfhP4nCYEyqIJftCl jLG7jAGVuvhcf d039XtClFXI4KUAhtWZmV 0MgiH3xKmUgFKHxBHCiO8 ArtCOqPAnjI286EWcuYuF 1RAZvmvGeS6Cz GWNmeMqiIlU6g0A3Bt7Pf 6NgublkTBH8JDjaCPP6Fm TwGgIpAmE1U7GhAdq5WEQ naEjhHE5pW3Ns HFByhtazeagfoLZ7NPZiI HIiiT12kJSzJOetKj3kd8 Q8z535NCWbRSReaT89Vi4 udDogMTBwdCBU cX4gwkxgh5kfrtncPyAdS DCvOUt3MSp2KWAaeIuxXq VoKFL7SbY2AOO8dFYhrF3 ccXeagjngsU8y Oyc+U21jhB4rQVP5XCS8t ozgGOJzicXnTY37CS17O9 RyPjwvdGFibGU+PGRpdiB rdPnmFW9aXzYp h1prj6EwCGjeQ2XoFJCjV LvxRfi3QUVeBFT6tWW0cK 6vNGCqTHwim0Q8yWA1J1S hmhKzev6hp4bw IVHwOTrhG22vcKMmt2A3B NLbkYH7CCJujPsmOjLtqJ 93Oyc+XHPnxLptf7YvJon xg6aza3ozgXg3 MxUqVXWhbqZtfUfoCZU2y 1FpDq19K24qMYgwIAOvDW ZxOXBhTVKntSpfzw7wjL7 wIi8+PGNvbCB3 gIX5bF6zOODaVcN4QFjjX 592KyYhhJHnSucal9wxt8 fgfQe2XnUwRLFxjlSohLf cBWH4z5IdJi39 T49oHXdwYDLzEFAnXUBzL GWsvIiiiv5wxZ5uBn1+PC 7rn7ywkk70hY05kFC+PHR hSPK7zTnzBBtr QKGqaX2rFDeyGeJ2XTDzB vAyaL25wBYyYBdtTn8fcG itfIdvPI4vQCRvehzum50 1BvYvt6fxKMDn kVFnCYraDOZ3J01gi5Q7D QYkZYRsYCL9nIK1uZ2nkA lnbjogbGVmdDsgdmVydGl bALkmRXwnK019 IHRvcDsnPlBhdGllbnQgT uJfXJm6P7YiAhv3VYFsmT ssPH5sbJDiNAueJt8hvKm abQrfWS1yOKDp ztwkj963IfTlq6htZRNsz LQvXUotZFY7B77qn1F7BJ SjMUPfTQF9aXX2yQ8joGm nbjogbGVmdDsg zrQxbIodQFdrHZfuE160O HRvcDsnPkJpcnRoIERhdG X6ZV28AC39jXTsa9J0dQC 7D8ChZIWwgkuz cfmaoHP3BDLhJEIpuW94U c7dbKpcMe6yAHLePFW0RS CiiPTzL8IebX9vUrQqUYO rGSJpV6VihKIb FOndY058EGdxMcB5KLAqp kJeI3KlFEOrmQpuPlR8r5 A3Ms8TR2V8SI45AB21uBB ea0S4qZS9H9Hd WUUpftxhfllfcGS1NQZdG VOqrJ79Mt7npJzdTp2kNG WtIOW9GITefPMcU2CejQ9 yOiAjMDAwMDAw U6LdhCZxMBykZ476OTrzR nW8NEGvrtBtI1LrKSVgwB zaHjX2w5I6Mm5WDVu7CF9 8WU15bDFgn5E3 pXA4N7AjDBWypnpawhxeo QR2ICGqGVIukI33Xv3hxX yiFt4aPVJoMMA8QHRplBJ tS7SdpB2rMgMi EMTrPMBiX0CnrDIjBKsmR 840ENrhNbN5ULGgtcEbB6 ZlJZKtdNmbIzV6h7D0Pd8 PUIFpFT61VZZ0 iTD4QF52TJ09E9TpAyymc GFibGU+PHRhYmxlIHdpZH RoPScxMDAlJyBzdHlsZT0 aDy7iOPRhBNAt tLluiOGuCbHzg0atZRIdO HgbHF8ouPyqO9ZunBJ6WM Goi9t6Cs87Y11kP1NgyFV +VMOyeUS2nOJ8 cO7hIbErLuR2WCsxE481D yUyyLZiAxhmx5eau8ydvM j1BcD7XIElexGkeXmvEYD 1s9LaYf68W53u IHdpZHRoPSIxNSUiIHZhb Lruzn8haS9aYp9+PGNvbC U0dHX0xK2rAoLgTgZ0VSy nD305PyAotELi Wxoqh0raw6vcfTx9InKzZ IRxojCnkHtgUUE6m1DjCr 75B0KtyQozo8WxWzs8fa6 6pNIci7W2jYP4 K0UuTDIgxukdoDCgoSasM N7oWRFtuomvUGQesQ2nFT PwW9v5BwInVbE3RDauC8E khtX7LDVhgQMg BChySSQ1K51kl8K2NYOnP LZxIZK5pNU2rK3zxQyzjj ogbGVmdDsgdmVydGljYWw gOOhsM727HVDa lIaiYMDjsS8rFJIfkIUba YpwBM4dLKIzrltqWyXTML KRDEBTEVoUT7O6I8FkNov 5DUSqpEjkTS8g xNYdKKnvMc4hdRqqpAgqK X8uEZJiypbiKPHtdY5eRX YdoEYhqLewLY1qLJLgmpm vk944IyMoVKP9 VDVfzJRxE4XymJ8jMfRdY GYgFRJtG2ElwCNuXLupO7 81ABtmGhR8SFOduvYqV7X sLWFsaWduOiB0 i6S0Mx6rYZ7sGb5jANlwC S85SD48wXQcu0Q8bYI8A9 NsVSOkcroeihlnlQJ5XAC cCGYsqD05uHQx QWhtDs5px0I7q101ALXeX IBhaA60Xb9xjQvxKNDnwV WRdE7ogkczk2lszhruYqA mRKAwPCu5ZXd0 OZGqwUqaWuFvXZV1FiW3L ML7sUFaiZ3gmTycyjyyjO 9wOyc+TqmqVJNzvnW3S4A iXch1ZNCteLss NN3lqTCaJWgqVx0jpQbgj KacFF1tTJHwtlvdSGRvgW 7rAGYciGFxyDyiTB7aARY mwmele679LkSg WZF8BTQhjOTwK5QnnE9hU dTwPHPtEPLdL3MsiYTqOR stH362EYnrVuS7ABEqzjZ oS0MzDPDuwMza SmK8k8F3As6KMP0btQE1L 1JkZue9EPFrcRjuRK5emG XbZZepDs0rlKvltGzpVS7 wNTBpbjtwYWRk tZ8qCWKkxAXzmMgpRF8gE EEqklwpa967OhCqKAT2HR ArkQGlR2GqdH4lLzNdUSV hXTShL2FljHSo GBtnH413KPgxThN9ITEbh mWhK9ZdWJYpbNzyXoS8w9 W2Ic3LdFNpD6AgY7x3N7B kPjwvdHI+PC90 GHPqBW55uZDgxRSnf4esd Tx5SkRgHMCsJQF2jBjvHC ljp4SyWPFnM61bpURgn4P 6IGNvbGxhcHNl BmIypDG2kX7fHDfhejjff 0qpcwmeJoyyo2efpq39uR 69V33cNXfqWHZhNGTtBAC lXRHidYqpwr9b zA4kGd7+GMVzzBG5cGU6q L7eOrDxXhL2RHrfK833Of NylKShMstrf0lou1pbnPy 9IjIwJSIgdmFs xRdfGOF3u9CkQf10T59gS HdpZHRoPSIyMCUiIHZhbG sjyv1kgW7dVi1+RO3po4b nru93cM74fMY+ PKBhVTR5kMfaVConFPKpe M2eJCusKlZ3NGEmXuXmcA 77iHPmOUmwQz7hzWjakZi oOV6qLJDkpgab l181KdXwg2mdPQLpuUItA YhaCDM2J20ic4V0UDLpRN XfHQC4rUN2dQ1rgDhexhp gbGVmdDsgdmVy vCfwQIisGJdyD402YPIdh YsxYlTspAIrR9ecurCGQT 1lOjwvdGQ+EBLwRNO3fRq fQZmqAPPooW5w KBClE3h6HuXcFaA9WBpqO 1QmvjR9EMAqgGGqZKDeiO OAjO6nhiozk9oeauaqJnS kBJFhRFa0XFt4 DUXdoJhwAjBlCAZ3KvS8S SK3aXRvvQ5hwBnduxntcS 9wOyc+RklOOjwvdGQ+PHR pSSK2nBwbBJrt OGPgsO6hAUAeW5y6OfJgW qE5JPozN1JhzbE0AATmzL KdONMdaGQGmB2xiuamu8z vcjogIzAwMDAw VKd7LOc7YEPeaDvwKcOxM LD5WtS2ZHU6uTLehP9tqJ ecxulhnN7sLrv+TVJOOjw vdGQ+PHRkIHN0 qHvcEUtfMBRyuY0gEGItS 7a3ZwCxScX6VFvkB9Fute N5WAPzoAZqYUIqiQWSiF3 ggrczq3fpzxlp BtKkAFQgVSk4MWe3SKIir BmjUrKdMLT4IgY1CVN3gF GewU6oiYknctgouS3eHnu +BZB1DGH2FE17 PS52S3YqVgsqlLFicUE+P HRhYmxlIHdpZHRoPScxMD ArBsRieTdoOW4qDp3eLSQ yLWNvbGxhcHNl OiBj (more content not included)... Normal [facility] Auto Diffon 02-28-2021 Basophils/100 WBC (Bld) 0.4 % Normal 0.0-2.[address] [facility] Comment on above: Order Comment: Order Added by Discern Expert. Performed By: #### 2 159251, 0112849, 04615573, 91244956, 68666571, 16133349, 0341857, 1299481, 1768832, 7557439 ####[facility] [address] [place] [address] Basophils/Leukocytes Auto (Bld) [Pure # fraction] 0.0 E9/L Normal 0.0-0.[address] [facility] Comment on above: Order Comment: Order Added by Discern Expert. Performed By: #### 2 046180, 4152502, 04596527, 94332262, 68919449, 68133439, 8067271, 6051077, 4156717, 9515970 ####[address] [place] [address] Eosinophils/100 WBC (Bld) 0.6 % Normal 0.0-8.[address] [facility] Comment on above: Order Comment: Order Added by Discern Expert. Performed By: #### 2 947625, 7279953, 40004984, 14282798, 70771034, 08882994, 8308215, 7282242, 0632543, 2464137 ####[address] [place] [address] Eosinophils/Leukocyt es Auto (Bld) [Pure # fraction] 0.0 E9/L Normal 0.0-0.[address] [facility] Comment on above: Order Comment: Order Added by Discern Expert. Performed By: #### 2 465309, 1897694, 99142204, 99733900, 16075778, 36003368, 7029552, 1228347, 8379419, 0956838 ####[address] [place] [address] Lymphocytes/100 WBC (Bld) 7.9 % Low 14.0-50.[address] [facility] Comment on above: Order Comment: Order Added by Discern Expert. Performed By: #### 2 468156, 7024158, 80806548, 63384852, 19973936, 49792188, 3801110, 3033110, 5871416, 3601477 ####[facility] [address] [place] [address] Lymphocytes/Leukocyt es Auto (Bld) [Pure # fraction] 0.4 E9/L Low 1.0-4.[address] [facility] Comment on above: Order Comment: Order Added by Discern Expert. Performed By: #### 2 878630, 4112125, 88714570, 99189076, 53291024, 06815542, 4371873, 4329082, 2036638, 7515614 ####[address] [place] [address] Monocytes/100 WBC (Bld) 5.5 % Normal 4.0-14.[address] [facility] Comment on above: Order Comment: Order Added by Discern Expert. Performed By: #### 2 512510, 0259844, 38878505, 96571691, 23115147, 58171689, 0256275, 6829465, 1795062, 4941065 ####[address] [place] [address] Monocytes/Leukocytes Auto (Bld) [Pure # fraction] 0.3 E9/L Normal 0.2-1.[address] [facility] Comment on above: Order Comment: Order Added by Discern Expert. Performed By: #### 2 838289, 9647200, 25371372, 65690644, 03181736, 80553801, 7458443, 5059841, 6216446, 2823787 ####[address] [place] [address] Neutrophils/100 WBC (Bld) 85.6 % High 36.0-75.[address] [facility] Comment on above: Order Comment: Order Added by Discern Expert. Performed By: #### 2 153380, 1525757, 20522187, 18556183, 60839750, 16708220, 9254071, 6057782, 7678784, 2056229 ####[address] [place] [address] Neutrophils/Leukocyt es Auto (Bld) [Pure # fraction] 4.5 E9/L Normal 2.0-7.[address] [facility] Comment on above: Order Comment: Order Added by Discern Expert. Performed By: #### 2 660172, 8724786, 26848643, 11842089, 26694978, 35479731, 2398359, 0135384, 4593003, 5111755 ####[facility] [address] [place] [address] B hCG Qualon 02-28-2021 Beta hCG Ql Negative Normal [facility] Comment on above: Performed By: #### 2 991191, 8116562, 30566397, 98550009, 77218377, 40825008, 6480641, 6640144, 8322211, 9780304 ####[facility] [address] [place] [address] BMPon 02-28-2021 Creatinine [Mass/Vol] 0.7 mg/dL Normal 0.5-1.[address] [facility] Comment on above: Performed By: #### 2 931016, 0121942, 94990806, 27564975, 66258439, 85722646, 9955603, 0265721, 0958327, 5379747 ####[facility] [address] [place] [address] Urea nitrogen [Mass/Vol] 9 mg/dL Normal 5-[address] [facility] Comment on above: Performed By: #### 2 658176, 3053023, 22441307, 92128702, 59349640, 53751992, 8085758, 7360857, 7263914, 4550784 ####[facility] [address] [place] [address] Urea nitrogen/Creatinine [Mass ratio] 13 No Units Normal 10-[address] [facility] Comment on above: Performed By: #### 2 008699, 5459326, 24745180, 65258754, 58028651, 65552405, 3828746, 6451951, 5131349, 7243502 ####[facility] [address] [place] [address] Anion gap [Moles/Vol] 14 mmol/L Normal 6-[address] [facility] Comment on above: Performed By: #### 2 675112, 6920091, 64783799, 52328223, 69589378, 75843416, 6374369, 9188126, 7813112, 6069099 ####[facility] [address] [place] [address] Calcium [Mass/Vol] 8.5 mg/dL Low 8.9-11.[address] [facility] Comment on above: Performed By: #### 2 654494, 8078642, 96271328, 15762539, 54945820, 37551281, 8027457, 3802407, 9208437, 3923792 ####[facility] [address] [place] [address] Chloride [Moles/Vol] 102 mmol/L Normal 101-111 [facility] Comment on above: Performed By: #### 2 402992, 5067629, 57404193, 40722900, 60050494, 88339365, 7271649, 5546557, 4901912, 4449888 ####[facility] [address] [place] [address] CO2 [Moles/Vol] 21 mmol/L Normal 21-31 [facility] Comment on above: Performed By: #### 2 539599, 6476703, 48449697, 66054297, 10735909, 07337025, 1127016, 0274769, 1772850, 5689662 ####[facility] [address] [place] [address] Glucose [Mass/Vol] 95 mg/dL Normal 55-[address] [facility] Comment on above: Result Comment: If t his glucose result represents a fasting glucose, interpretation should refer to the following reference range: 55-99 mg/dL Performed By: #### 2 806506, 6325380, 12185094, 14749441, 81206605, 41946175, 8911036, 2034354, 0489943, 8447664 ####[facility] [address] [place] [address] Potassium [Moles/Vol] 3.6 mmol/L Normal 3.5-5.[address] [facility] Comment on above: Performed By: #### 2 710249, 4141096, 23031184, 19219996, 54082550, 55432597, 2180926, 9970924, 7925391, 1742617 ####[facility] [address] [place] [address] Sodium [Moles/Vol] 133 mmol/L Low 135-[address] [facility] Comment on above: Performed By: #### 2 109935, 8956068, 88620130, 08309721, 66180779, 49460147, 0662453, 5147436, 8588671, 2338610 ####[facility] [address] [place] [address] CBC w/ Auto Diffon Erythrocyte distribution width (RBC) [Ratio] 12.4 % Normal 10.9-14.[address] [facility] Comment on above: Performed By: #### 2 085332, 6021687, 55603741, 44754479, 12387869, 53320552, 7030195, 9190263, 2143668, 7412957 ####[facility] [address] [place] [address] Hematocrit (Bld) [Volume fraction] 38.1 % Normal 34.0-46.[address] [facility] Comment on above: Performed By: #### 2 669809, 0127190, 20434997, 09988505, 38447787, 44597267, 5902321, 4062888, 8887686, 7484975 ####[facility] [address] [place] [address] Hemoglobin (Bld) [Mass/Vol] 13.3 g/dL Normal 12.0-16.[address] [facility] Comment on above: Performed By: #### 2 711283, 7497558, 50327860, 62600801, 67397396, 14916663, 7531653, 9909071, 8060629, 1222840 ####[facility] [address] [place] [address] MCH (RBC) [Entitic mass] 31.7 pg Normal 27.0-34.[address] [facility] Comment on above: Performed By: #### 2 164442, 5551054, 95777013, 68283025, 78197302, 83233567, 5408839, 7582730, 8263572, 6067014 ####[address] [address] MCHC (RBC) [Mass/Vol] 35.0 g/dL Normal 31.4-36.[address] [facility] Comment on above: Performed By: #### 2 615229, 8443961, 72602065, 03442223, 34221938, 81729569, 8200933, 1642027, 9436081, 7794353 ####[address] [address] MCV (RBC) [Entitic vol] 90.8 fL Normal 80.0-100.[address] [facility] Comment on above: Performed By: #### 2 100583, 4135723, 63581785, 33517861, 33993859, 73880320, 6947478, 0446278, 7741038, 9732655 ####[address] [address] Platelet mean volume (Bld) [Entitic vol] 10.0 fL Normal 6.4-10.[address] [facility] Comment on above: Performed By: #### 2 030975, 6791095, 70455609, 29510411, 64401130, 38577824, 8564822, 2205386, 2410871, 2995429 ####[address] [address] Platelets (Bld) [#/Vol] 144.0 E9/L Low 150.0-500.[address] [facility] Comment on above: Performed By: #### 2 547384, 0959546, 26184135, 57617495, 57275250, 09948067, 3127185, 7568421, 8208964, 4820331 ####[facility] [address] [place] [address] RBC (Bld) [#/Vol] 4.2 E12/L Low 4.3-5.[address] [facility] Comment on above: Performed By: #### 2 053172, 8045293, 29195786, 65736363, 33771874, 83441638, 1914330, 8458554, 0548479, 9057751 ####[facility] [address] [place] [address] WBC corrected for nucl RBC Auto (Bld) [#/Vol] 5.3 E9/L Normal 4.0-11.[address] [facility] Comment on above: Performed By: #### 2 467715, 5366157, 37065998, 05410594, 62278094, 18429705, 4996084, 9231349, 9009080, 5800189 ####[facility] [address] [place] [address] COVID-19 (MC)on 02-28-2021 SARS-CoV-2 (COVID-19) RNA MARY+probe Ql (Unsp spec) Not detected Normal Not Detected [facility] Comment on above: Result Comment: This test result should be correlated with clinical presentations and medical history by a healthcare provider to determine its clinical significance. This assay was performed by a reverse transcriptase real-time polymerase chain reaction (rt PCR) method on the [employer] system. This test has been authorized only [...] or revoked sooner. Performed By: #### 2 [id number] #### [facility] [address] [place] [address] SARS-CoV-2 (COVID-19) RNA MARY+probe Ql (Unsp spec) Pass Normal Pass [facility] Comment on above: Performed By: #### 2 [id number] #### [facility] [address] [place] [address] Specimen source Nom (Unsp spec) Nasal Normal [facility] Comment on above: Performed By: #### 2 [id number] #### [facility] [address] [place] [address] Employed in Healthcare NO Normal [facility] Comment on above: Performed By: #### 2 [id number] #### [facility] [address] [place] [address] First Test Unknown Normal [facility] Comment on above: Performed By: #### 2 [id number] #### [facility] [address] [place] [address] Hospitalized? NO Normal [facility] Comment on above: Performed By: #### 2 [id number] #### [facility] [address] [place] [address] ICU NO [facility] Comment on above: Performed By: #### 2 [id number] #### [facility] [address] [place] [address] ? NO Normal [facility] Comment on above: Performed By: #### 2 [id number] #### [facility] [address] [place] [address] Resides in a Congregate Care Setting NO Normal [facility] Comment on above: Performed By: #### 2 [id number] #### [facility] [facility] [address] [place] [address] Symptomatic as defined by CDC YES Normal [facility] Comment on above: Performed By: #### 2 [id number] #### [facility] [address] [place] [address] Consent for Treatmenton Consent for Treatment [id number] .00CD:[address] [facility] D-Dimeron 02-28-2021 Fibrin D-dimer FEU (PPP) [Mass/Vol] 388 [id number] Normal 215-[address] [facility] Comment on above: Result Comment: [...] infections Liver cirrhosis Performed By: #### 2 286746, 2650617, 02867470, 95387668, 62824056, 98431980, 4562645, 3287887, 0632165, 0447193 ####[facility] [address] [place] [address] Discharge Instructionson Discharge Instructions [id number]# 1.00CD:[address] [facility] ED Clinical Summaryon 2020 ED Clinical Summary [address] [address] ED Clinical Summary Person Information Name: RAJIV TOVAR/[facility] Age: 25 Years : 1995 Sex: Female Language: Polish PCP: Alon Weber MD Marital Status: Single [...] 02/28/2021 11:17:01 02/28/2021 11:17:01 02/28/2021 11:17:01 ADDRESS: [address] [place] [id number] PHYS DOC NOTES: MEDICAL INFORMATION: Prescriptions Given: [...] Follow up: With: Address: When: Alon Weber [address] [place] [address], [facility] [place], [place] [id number] Business (1) In 3 days DIAGNOSIS: Chest pain; Viral URI Normal [facility] ED Note-Physicianon 02-29-20 ED Note-Physician [...] hCG Qual CBC w/ Auto Diff COVID-19 [place] [place] D-Dimer ECG 12 Lead Adult ED Cardiac [...] [address] [facility] [place] [address] [place] [address]- Business (1) Additional Instructions: Patient Education COVID-19: How to Protect Yourself and Others - [facility] COVID-19 Frequently Asked Questions Upper Respiratory Infection, [...] content not included)... Normal [facility] Comment on above: Result Comment: Elec tronically Signed By: Laureano Phillip DO\.br\Date and Time Signed: 02/28/21 11:03 EDT ED Patient Summaryon 021 ED Patient Summary [address] [address] Patient Discharge Instructions Person Information Name: RAJIV TOVAR Age: 25 Years Arrival Date: 02/28/2021 09:10:34 Discharge Diagnosis: Chest pain; Viral URI Primary Care Physician: Alon Weber MD Provider Information Primary Provider: Laureano Phillip DO Advanced Correction Officer:None The exam and treatment you received in the Emergency Department were for an urgent problem and are not intended as complete care. It is important that you follow up with a doctor, nurse practitioner, or physician?s academic affairs assistant for ongoing care. If your symptoms [...] Follow-up Instructions: With: Address: When: Alon Weber [address] [place] [address], [facility] [place] [address] Business (1) In 3 days [...] opioids can be used to help relieve xuvaednp-zr-jonnow pain and are often prescribed following a [...] be struggling with addiction, tell your health respiratory care technician and ask for guidance or (more content not included)... Normal [facility] Hep Func Panelon 02-28-2021 ALP [Catalytic activity/Vol] 52 Int._Unit/L Normal 21-[address] [facility] Comment on above: Performed By: #### 2 730501, 3812993, 95319623, 79980642, 86236419, 47817507, 0378470, 6105114, 1617610, 8081940 ####[facility] [address] [place] [address] Albumin [Mass/Vol] 4.2 g/dL Normal 3.3-5.[address] [facility] Comment on above: Performed By: #### 2 819160, 8513383, 15305336, 08510570, 86051745, 03898528, 1307233, 9602095, 6349940, 2183395 ####[facility] [address] [place] [address] Albumin/Globulin (S) [Mass conc ratio] 1.4 Normal 1.1-2.[address] [facility] Comment on above: Performed By: #### 2 730114, 4215352, 82190104, 08029968, 93540128, 98322753, 0510756, 5126083, 4878433, 7928232 ####[address] [place] [address] ALT No additional P-5'-P [Catalytic activity/Vol] 48 Int._Unit/L High 6-[address] [facility] Comment on above: Performed By: #### 2 761126, 7730090, 53446694, 87675119, 03164063, 81992722, 9999348, 9453634, 8392016, 0993370 ####[address] [address] AST [Catalytic activity/Vol] 39 Int._Unit/L Normal 5-[address] [facility] Comment on above: Performed By: #### 2 476412, 2544087, 03165991, 77539418, 04197139, 34816923, 7681620, 8544480, 9654484, 0881072 ####[address] [address] Bilirubin [Mass/Vol] 1.2 mg/dL High 0.0-1.1 [facility] Comment on above: Performed By: #### 2 907367, 6774072, 58031858, 24707481, 55068771, 09690334, 1396241, 4501214, 6596855, 1440896 ####[address] [place] [address] Bilirubin.direct [Mass/Vol] 0.2 mg/dL Normal 0.1-0.[address] [facility] Comment on above: Performed By: #### 2 729026, 6505280, 64645544, 41579435, 82469434, 09486362, 2792764, 1104761, 1046278, 9064798 ####[address] [address] Bilirubin.indirect [Mass or moles/Vol] 1.0 mg/dL High 0.1-0.[address] [facility] Comment on above: Performed By: #### 2 693143, 3068391, 44102112, 75693727, 31578339, 47920915, 2436591, 9980602, 7002650, 0035621 ####[facility] [address] [place] [address] Globulin (S) [Mass/Vol] 2.9 g/dL Normal 1.4-4.[address] [facility] Comment on above: Performed By: #### 2 504662, 0755795, 51437612, 03977453, 07218913, 79483224, 2979755, 4863298, 1700414, 6509989 ####[facility] [address] [place] [address] Protein [Mass/Vol] 7.1 g/dL Normal 6.0-7.[address] [facility] Comment on above: Performed By: #### 2 591351, 5342005, 01308350, 16499352, 33535989, 04103717, 4442031, 2587541, 0595951, 0323429 ####[facility] [address] [place] [address] Lipase Levelon 02-28-2021 Lipase [Catalytic activity/Vol] 33 U/L Normal 13-[address] [facility] Comment on above: Performed By: #### 2 859800, 4227081, 19147619, 64639402, 49826779, 06240063, 0201958, 5513907, 0765368, 9051513 ####[facility] [address] [place] [address] PT & PTTon 02-28-2021 aPTT Coag (PPP) [Time] 31.5 second(s) Normal 25.1-36.[address] [facility] Comment on above: Result Comment: Hepa rin therapeutic range (represented by Anti-Factor Xa activity of 0.2 - 0.4 U/mL) corresponds to PTT of 56.6 - 109.0 sec. Performed By: #### 2 742536, 7677781, 80800173, 74550419, 47600435, 20466875, 4135655, 1560018, 2357065, 3217094 ####[facility] [address] [place] [address] INR Coag (PPP) [Relative time] 1.1 {INR} Invalid Interpretation Code [facility] Comment on above: Result Comment: INR results are specifically intended to assess patients stabilized on long-term Anticoagulation therapy suggested INR?s ?Less Intensive Anticoagulation? 2.0 ? 3.0 Conventional Range 3.0 ? 4.5 Performed By: #### 2 466834, 2418475, 56788043, 58195112, 70114528, 90127805, 5863286, 5672725, 3712818, 6857077 ####[facility] [address] [place] [address] PT Coag (PPP) [Time] 13.1 second(s) High 10.2-12.[address] [facility] Comment on above: Performed By: #### 2 333629, 3798428, 10799178, 46645215, 35575701, 48053603, 6347831, 6799270, 3883386, 8319794 ####[facility] [address] [place] [address] Prescriptions/Work Noteson 0 02-28-2021 Prescriptions/Work Notes [id number]# 1.00CD:[address] [facility] Troponin 0 Hr.on 02-28-2021 Troponin I.cardiac [Mass/Vol] ng/mL Low 10.10-27.[address] [facility] Comment on above: Result Comment: The 95% CI (Confidence Interval) PPV (Positive Predictive Value) for myocardial infarction in females is 38 pg/mL, in males 51 pg/mL. The results should be used in conjunction with clinical conditions of myocardial infarction. (Access High Sensitivity Troponin I Instructions For Use, [employer], January 2018) Performed By: #### 2 473137, 4082000, 88460749, 93451464, 85925609, 30542786, 7349358, 0081986, 1841573, 4621636 ####[facility] [address] [place] [address] XR Chest Single Viewon 02-28 XR Chest [...] OLGA Technologist: YONG Kaplan [facility] eGFRon 02-28-2021 GFR/1.73 sq M.predicted among blacks MDRD (S/P/Bld) [Vol rate/Area] mL/min/{1.73_m2} Normal >=[address] [facility] Comment on above: Order Comment: Order added by Discern Expert. Result Comment: eGFR is race adjusted. AA=. Performed By: #### 2 846118, 8320901, 38714599, 12360599, 18969521, 98257893, 2213348, 1873482, 4077393, 1899985 ####[facility] [address] [place] [address] GFR/1.73 sq M.predicted among non-blacks MDRD (S/P/Bld) [Vol rate/Area] mL/min/{1.73_m2} Normal >=[address] [facility] Comment on above: Order Comment: Order added by Discern Expert. Result Comment: Benefits Clerk bib kidney disease could be indicated at eGFR's of less than 60 mL/min/1.73m2. Kidney failure is indicated at less than 15 mL/min/1.73m2. Performed By: #### 2 422998, 6994266, 78593874, 25624114, 87183485, 72813718, 4672396, 7892339, 4600958, 7128970 ####[facility] [address] [place] [address] C Urineon 02-01-2021 Bacteria identified Cx Nom [...] This test was performed at: [facility], [address] [place] [address], [facility]- , , [facility] [place] Comment on above: Performed By: #### 1 8857959, 9124705 ####[facility] [address] [place] [address] Coding Summary.on 02-01-2021 Coding Summary. CD:[id number] G h0bWw+PGhlYWQ+MX3NGZX kO40fhFCoxC8YJ1gGKI3M RELAMFLKVI5VUX3dfLL5J VryX3LmftQg WfnydBPgAP64CNc3KAD4l HvuFFuklS2deODiG5i1Tl RoBM01jC76JWvyLFLkWjW 3LjZpbjsgbWFy B1fdOsExeGUeJll+PHRhY mxlIHdpZHRoPScxMDAlJy VprZucWV3xBs8cVQXqMHC vbGxhcHNlOiBj k3gaSDVeEVbnVA4ugKktS 1RsnZR2BFAby0x6Yo52nI I+XTAfXLJ5zPxqTQxje58 5YzBfj6atSRG7 vZRkGHmvZST6V19wu1W3F KRtRBYcXBW7vUV8sU1jjG trjzkfK1BlcNYoBfG5YIW 6rPAwxM3tqFxy hckfiO2nQvn+T01IOX5SN DAEZV7BNcb5S9WeMdnohT I+HO21IUNgBG40aJYsnVK eh2rcyTm5JyJb FMBgZEN9iTliTNlmx1DeX WHgT52fyTQsv6X7SCQpqQ nraGVdBzJusJA1zY3jSVr kbrdpw0lzrkec Kkgfu0hqls63aH58F24vF PlyBFObCFU8ZNQfTKSgtY mhnj3qdC6bYg0+WIzzz9q bl9dciWe8QsFl OKYrwtYdtRruVVA9d6KbL z76F2ZbjXown2MhWey9mo 68pJPdk4X1xDI4LWgsQGK mwH0vONyeSzN6 QNLuSrYmkY30eVTqHMubC h7wsVapzDvmDM2yOXZhav qyKOEzaM9aIBOhyPXqwFq fTL7kPUKauggj b125DoEfKMM6MESatMSsN 8CtyL8dBzAxAUIgRCRtT7 QomBCvBRbuI329DRzuRyA 7BZQsraFgC0If WQZhoDjbUeK7o8M2Cs2Ew 0SzlaeiZOE6EJnmTCH0Va AkPxLwPxX6X8UgIjf1YIV siGzzJN5dV7Sq DHZjqspaggapuWC7HECoN DJusK32fFTiUPdbDr0oj4 E5v517GBTdXBQpvK09Tn2 udDogMTBwdCBU wR2ozijqb4hykuctOgAxX QUwVYf4OFf1XFEolFgfKg NhTLP7WlR2MNV8gPVcoF4 glQevvgddmO6m Oyc+T18bkP0fQQN3KZX3t aptRHNrwfAfLZ93KI39J8 RyPjwvdGFibGU+PGRpdiB vfFrjMX1iHbRn t1ujx9CuCLxwO8XpJXDhV YonKvq8TRYaJQY0mWD7qV 5bGFHsLBfmx6F1hCU1O9R yopSxyk9jt3bc UKGzBWwjS01rwHBzw6I9L USeoFO1FJZkfLvtHjNpeK 93Oyc+PXYgzZsna0NpNck lr0jnx7fbkPp7 WaSiXKZdheLbmFzjLQL5b 8EzTi12O51wFGhuIJJeUR JmOAAgLVOtdNbcxi8fcW7 wIi8+PGNvbCB3 dML3iH5rNYKfFvY2IMwqU 625HaXrwZWsAwrlw7ora9 tqgUv6WoXaVBViujCwfLm jUPR9s4UkYe70 V49pBUvjHQZlYVLcSNWvL IIhnUvwvc7zwA9hPo6+PC 6yq0unac40tI50sYE+PHR dUFE8uOsjVNdm WSTgvA3gYDdbJnZ4ZDChA sXqeL54nRGkLEcxDm9odJ ptlPacKK7bQFJezgfkh24 9VsKld4ufYBPf pMYqNInxQHT3D11rn4B7K FYgPTPyMZK1hMM2mN3svU lnbjogbGVmdDsgdmVydGl vGNfuWRjqF712 IHRvcDsnPlBhdGllbnQgT kMgXBf4K5LdVjf8SBXsgX jdGU6dvCYxVTbdXf3lbHw atEodKR2uHOPq wogwi713FkTpa6fcFVRhw HKqVFlrAAM3C04ym5K5RF PjYWBbCJN5uLC4uH2afMs nbjogbGVmdDsg esUjgEpuTOkjMSfnV439P HRvcDsnPkJpcnRoIERhdG Z6VL72CU43aMTzf2A9yOY 0W7TjGAKzncsp qmqcpJQ1RBNlIGOgxT75E a8wjVptSc0nZTSuXMI8QY EgiRSeS3LnpU4jKjNjVUN yMPPtS9RuyEVj AZjhY917XKslNoU1STOoi cLlZ2IvVIVwnFeqCpG5e6 C5Un5NM5H2MV13UA76jUK hi6V8eKK3R0Eu QAStaawhdngatNZ1QLUwK AHbtW50Qy8tdQbzZc7mVF AtNMM8IJFelZIbP8RdfX2 yOiAjMDAwMDAw C5TqbMRrYOfpJ820RYhnA mJ6RBRhhiSwK0QzUXTivQ atZgD1j0J2Jh8NEBd1AW3 3LD48tADks4J2 dWD1N4XiYBEfwprydcstc BG9TIHfDHFefE64Za1xnH crOn2oLABcDNR5NBTdnVN wN4AjpQ7oMbRl VFAwCSRcJ8TqdCWqLPjzZ 727SXvdAxM8SKSwxzQqM8 FaRFHvaYaiIkK1g2K6Cw5 AZLOlZZ94IIQ4 mGW7PM33NG06L6RsZrmhv GFibGU+PHRhYmxlIHdpZH RoPScxMDAlJyBzdHlsZT0 gGe4oOBOoYHXx eIlnkFCwMtNxr0bkKHHuI PylXW6abMkrZ9BxwOT6DE Uuo8d9Za65X06wV3YilSD +XBKasDA7aCH1 eR8zHqRySiN5FJvxK578G aCywIQkOebdt5fag8mzlZ y9WaI2KFAwerFawPflROJ 1m0QdVs89S06r IHdpZHRoPSIxNSUiIHZhb Fswov0nsC8wNo5+PGNvbC A0hDR6xW2nTyKsKeS1GCg aD167HeJxxFHi Xclfn2hqq6rukMm1QhNiZ VVczgMamTgnYOI3c9ZvGf 94I9JkeGxch8RvPli5mh7 6iERez2H3cLJ4 O4RwWLTjzbakkNHfiVlmE X5zGXMfvuzrNMQnmW1hBV LxE9z1WrPgHeC6LObkW9E phtL9IJYsiDNq JEeqGOJ1O43kb4F2GWDbX GXkKMM9tBN3dA5nmHadug ogbGVmdDsgdmVydGljYWw nTXshV270MEWb sFyoKJEfuZ1jGCZohDVxa XpiID5tJWQhcwkoBzDLIO HRWWSDODwPP1L9F6MbSod 5UMBhmWkiVN2l hLJwSTahYj4ekGzskEozV W1bGSHwsmktTFDnkI6fHH HlpIHpxVkfCX2hTWWrtyv go239PdCnOEE9 LVCxhWKeZ1JxwP8rXcFfK MDpLWDnR5SubTGnTMunK9 68QMsbMoK6KJOanaOoC9W sLWFsaWduOiB0 c8S6Yj8iGM2aAf3kIMeeH F43NN00iVRne2L8nOR1M1 UhSDSodxaqkqfmuXY5SDD nCXKhkD70zIRg SWqnId8bz3T4k162UIPcS BTbrN26Kl3blRneQLZliB CJoH1yenflc2btaresRiE nRGUiVKu1XBv5 BDScuJrtXiZkDYP2JxV5X FF9fZYqoZ5rdEbuagdgjE 9wOyc+NegpDGUoifH1L1V oHac4KONtmSkm VU4ayQJlRAorAx4xpYysi QvnZP1iHVQhzwhhVQNoxJ 0rRTRgeHTtmNntSR9xLJE acjewg976AqIc GYT6RJSybDCqX7HbyQ8pN uIsDSXrJOYyN6SluSAoEZ vpY967ZGarYqA8EJThwrN hZ0TdNJLlyElc CsB1g4T2Xr5FRB5icPD6F 9XzWtu4IDKizGkkTN4zsM DwGLewRm1pzKtezMhqVO1 wNTBpbjtwYWRk eW2eNQTbiXKqeKsgAX3bZ QVtnspcg837MmTqHYG5PS UgwVPuZ5HumV4vBqApFQD xMTBfQ2QziWAt FSckY149TMujIzG8FBJkm yQeU9FvIBLugHxhFgB2x4 V2Kj8NtFCdV4BdE0n7L4A kPjwvdHI+PC90 KDCmYL63oMEepDMnl9rqi Sn0LmDkCYWmDGE3tBmaEA xxn5EvISIxD59rnQHow9A 6IGNvbGxhcHNl UbWvtNN1eD2zHWzvllsdv 4pazajpKbzbn9vjxm03hH 08R79fMYcoHOQbXOGnYCX tMEOnlCyhuo8m rR3sGm7+PYUeyAB4fVO3k T0uPaMeTrU0QXnwL029Eo YexHJhJyrtb1nov1ahxCh 9IjIwJSIgdmFs kVtzLCP9u2IcCy43Z92jK HdpZHRoPSIyMCUiIHZhbG yesb1qyJ6xPi0+FV6cu3c sin57bU32uCN+ EZVgQIT5vRulJZmdYYUlv L6mBEfdOqJ5WBEoGbQtsJ 47dNXdHBskYo0gxEomtSp tWL2aRIUgwnwv d206BaGfn1ktTQCzxVIqG ReoFKX6Z28lv0W5JXVqMW DjITI4eNK3dN7hfDzrwhw gbGVmdDsgdmVy xIluHXhyVTpcA170HXDko FytZjCkeLTsI9knrnRDHC 1lOjwvdGQ+VYKjWBL2qPe oNFouCNRgoO2m MMFhZ8e1CzDdOgE8INjxH 2DotqX4MOFghDStNGQjpK YSrS7ihbztk9jwwqetMvE iFRTnNVy5KDr8 ZGDwuMpdHdGnOHM4PlA0V FQ5kUUsaX0oxTvujwyqhC 9wOyc+RklOOjwvdGQ+PHR oEXM4mQjqOUgt UUBtgQ4wCMKxU3v5MpBoL lD7KPvrE5UxsaG7AKIfoJ EpNJUriDYRcA4jgbhwd9w vcjogIzAwMDAw JSt2JCy9SJMlqAhzPsIiW RS4KtJ1RKX9gKTpbA8uuZ tufsludB8vTjb+TVJOOjw vdGQ+PHRkIHN0 wEozCXnbCPLnvN2uRLYfU 9f3DfFqJlS7LXszZ9Gbrl E5ACHrqKRoRRZwiQFNlK9 ytfvdd5bqtfqx JmRzSKObTGq2ACm4AGOhd NyiAfTvECP1DoU4OMO0oB NwjA4qdGhuobdgoM0zRza +TES1ZBB9RA49 NW85T0NpAjzbwHZvtUL+P HRhYmxlIHdpZHRoPScxMD TmNsNjgYnrWK0rQl3yNLH yLWNvbGxhcHNl OiBj (more content not included)... Normal [facility] B hCG Qualon 01-31-2021 Beta hCG Ql Negative Normal [facility] Comment on above: Performed By: #### 2 545398, 3479381, 3593321, 55712844, 1539036, 95808901, 6044464 ####[facility] [address] [place] [address] Discharge Instructionson Discharge Instructions [id number]# 1.00CD:[address] [facility] ED Clinical Summaryon 2020 ED Clinical Summary [address] [address] ED Clinical Summary Person Information Name: RA[facility]IV [facility] Age: 25 Years : 1995 Sex: Female Language: Polish PCP: Alon Weber MD Marital Status: Single [...] 01/30/2021 23:43:48 01/30/2021 23:43:48 01/30/2021 23:43:48 ADDRESS: [address] [place] [id number] PHYS DOC NOTES: MEDICAL INFORMATION: Prescriptions Given: New Medications [id number], [address] [place], [place] [id number], [phone] cephalexin (Keflex 500 mg Cap) 1 Capsules [...] Follow up: With: Address: When: Alon Weber [address] [place] [address], [id number] Business (1) In 3 days 02/02/2021 DIAGNOSIS: Acute UTI Normal [facility] ED Note-Physicianon 02-01-20 ED Note-Physician CD:[id number]:[id number] 2 7FE17hPxwddCum3msov1b TP2zJfUztbAyYCffHy9zf 8ztNB43dj1tHoPwUk4+Cj ouRR3VZCtSLWCp uC0nYAFCCwuJZgYqFT2iW gKHAb6FJIAmJKzKGIwgRP 4eWZL9svhuqR5hWD3sDMP omGHgOk6xi4o9 NbhaSi2sFo6JLa97lREpy IXtAGZLG7ghbL8iKF4xpS CkU0IwGSIvGf8ZBQg1pQb cdU6yhlN5Vlu0 jOB4Pl93s1vgcpDnd4TdV kX0MAbfjVr2lQxkHTxwpZ 0bJiXgNMEEqH6abLydHQ8 hkI1kvxObxRsr biI+NhtxVWDsNxj6gQIqY Q25O9YbgWhkAqy1eXY7LK HazEDpOPNnzNl5DVNUICC BLUNvbXBhdGli bUQbHIAkmtHqntH5MrpML BSsMdYzEtu1A1mfUVE+Cj kiw2C6Wao5OGu0LSR4mNv vDDAir177MIJn qKxmoEcmmMEic54kDFSae BYcPdXzv649REGfypL4XM scmZmcRqo3pFDcsFIon1u gqHi9OpWsSGCp RzpJNPJizNdzd9KmKgqCV Ufif8ikaqTevXxbLVU7p2 VlULyrEMJnCXI6GfUwZX8 +CgkJPGNvbCB2 TWtuB482EqSfyQLzf9mst Yf9LrO8ESDcHy9XFYfyP4 2aQ6GamEH+Zkv0nIOsWWk +CgkJPHRyPgoJ JKg1dSYds3Q7bNZ6ZaKea jWgt2p2OJvhTRM6BeH2RG P8nXIenU5cjNtlxdthpZ9 wOyI+CgkJCTxk cKIwN3sxb9W0TjCms1Bfz GmvmlRkEYHnXoKrv7ieLi gbNXFeiF5iIGJ4RpCfAGK leHQiIGlkPSJf XcWcGJGeDnMmMXViUi06S vHqYUv4TFduIjpvHWK4Xd OqSyApDbBhzLyjEG7ndSC kZGluZzogNHB4 OyI+DSPqLW0wI8zpf6W8X iMyi1CebNtpcoHhi7YvHN wzGzpimPCeHWJ1aZzyGEL fe406IWdbuMkj pSwcDo2pVVzvfRL6nN3cZ MIsowU7iN0uWpW1arOlyd vomnP8Qm6KPPPyFyLGtkE vid9yuFejsdfr t2Nbwr67X3KmUP0+CgkJC MxarAWhZ1pao9J2RvGaw1 Hlz37rklW6RH9xhNI0ZSX oIAChXdJdm6oe YmxlIGRkZnJlZXRleHQiI HEwJoB3jmQlr3M3pQ7mu3 N6hNC5WoNfyA4bcScmaXS rOWI8mQPrcKkh pEUbR3iyPRFZB6snU68HM RRCMVNVYYXuODa4FTyaQv QiIGlkPSJfYTMyMjFhZGU wAYXmUR85NrTz OFQeHOFbCvF3HUOiAnK2Q QX3Ml46e5HuarRahNzfXR 3joHLqW6yhKxOymKFlOHv sTvKpAYOmoD0t BqUtfRZ8UTJsgIIzHFvwN 286QOocYzE9VPPjfW5qVz GvZ4HdZPcbSQmpGSl5PVH dgcLus2V2fNB8 SZ7qck0rkVtbJq4lwC54K NzhhGJ4DB7nqp9ljVusqJ V7uU2iFDMqhlS4hY4uBnV ik63cChU+JiN4 UCO6Dm7qqKSfoLdwdLpcW sFaVKIgXLG8VMqcJTLzIF 4zA8auXXz5S4JaVW5+PGJ yIC8+CgkJCSYj zOAcRqxdOOg7YckXGBwZH WUvlvKcnFUdhh3xCRPird BvnTL7oKRnPPIxkY49YWZ pXIJlTNY2KsZr LqhmLBFjmyegoRxhQL8nd Y2pGGHaN7m2DfRdAZ1iPw dpHnV8GAweUUu8WFnxCHp gRZ70KTz0XSFb UWN8PkRfJfAfLtNab8R1t LG5LzPgl7McCOk1NP3wuw U9Wz63Y3Ibxk9ZGTlPYH7 kaXY+CgoJCQk8 HRh0KAVhTMTsCYFvEWJbA 7Mdb31wQBNtRNZkCSWrCS MwRZRoDZxzb4YjlMBsUXT 0GGj8MPCoojYs n5PyYqudIpDdCBpxBSZ6b W0xL42aRD4oNO0JDiIqMC MxCULuHnZaoHA9Qs82EbC 2EDF9LQ13JnZk RLE3EAwzFZy0Ce0yQYNuM kGtOIW8XKuhGTM4xUjqFW LxNXOxxQ4vKhK9wWw8Ob6 0m7ZbgvMfkCZf bo6sMVOeOXZ5uO1iFEkwg GxheSI+LWWiMR4kb4N0oF Z8QkQfmpUfm7UmZ1k1BhN le5bzZcP0YQs5 YIZrZ17rCOVnj158OXXxY GVybGluZTsiPkNoaWVmIE RpzYKiIFkwwFgma3Clny1 6T8JaBB9+CgoJ EWd3QXu7ZTTuXFUcTFDeI GVtcmNvbnRlbnQiIGRkOm QebuZyajR6gTFjHEYSUEJ PVQSMN61ZOOGt PHVqJvWwWsFlHC5sDKV2q WY0NaDVPnThARj2URNuIR JdJSHLOp5LHFGcTGHNBHD KKAR3VLRFVWEd pJN6Qx01PcCvBnwnUc9fF BZvABFvCrGoBlkcHl5tPE q3WICfXRofGnRzQqpOEFe 4RBz8EUUgODZp PSJkZGVtcmNvbnRlbnRpd OYuQDAoxxTav1EvUhwsBb ReWJrov121HL46nFvzHU2 tQCWDW6HDXX9Z RUFTIiBkZDplbnRpdHlpZ B1cGMd0CJO1GFGmNrQyyF N5Ch4rFRPdCkidDv9iVYA hLTRkMWMtYjNl Jc69JNL8OKc0UJT9ZuhuK EvosQ9mQwTfAYQZmI5spD yxUU9xxW6kutRozEuouvD +cHQgYXJyaXZl dgMic8WqmuojzDTew3yaJ JHdOUQiYVYdtQ4grSwreB KsmQJjyXSpxA3rfWhqRLA nNZ3lISIlVE9e N07kfeX4oyJ6bHFscbuyu BUuDTX1WPjyZTXvyLdrIT HkKEYwOSQfyvFit8DzLSe cIA8pOEitcjUp aTDzGzFqprHamB2vTWQ1e 6IhEcvdZWv0CmzHFZl2I8 Vnmv7EEWrTFP1dpZS+Cgo CTVa0BYj4HIYa HVSyRAOcQHNtH9Joy41hR GRyZWZyZXNoYWJsZSBkZG ovd3ImmHUqKLP0FRu6LSY kznQaa4ZgDcna PzYlPOqvSXG7eQ9kR08bI D3iHA6HDhItMBAmAvKiOz EumVC1Ad9zF8ZoMBQ4JF0 tEyYfULA6NvWp JVo0Jt9zWGG6XqQ6FKtwP DCaBEW7xCtrOKXlXXYyhG 0vPhC9zTk0Fq71w8CyqmM qsRBeyx2cIUTt VOL2hH6bDPucnQdrhJT+P CYwBL9ge7S8zCV3NcJibl Dmv5WyK2i4IoNxo7sdDgR 9LQt3RNLvD84u VVTym415TKYqPCNrkQjrN IinSoshu4Fwnkgen2XuKN Cye2ZxdNRRrQgqPSCvJE4 cnMTbRcste5Yl ch5WKicRHKjkiYXvJ9rcw 1C8LkJnWP0bV54nzMGxtX RjSXJ9L71uC4ErrQ8eBMI ATgTlJCfbn070 DQ40wMbhTJ8kAK0CR5RYX XHdESYzQjZdBgAoIK0bMJ S8lGS8KaBlVdBpOtS3BNE 1MKLkZKAVXi94 DrdZTUDGLqE3G6A9I4M2T SAbuUB8Ej6lVSF9XmkqVQ 58RWTtGWGlOUCnHHCmCC5 1LXDgNIW8LRB0 GFzzQlsBLCf3LKg7COVqZ XNzPSJkZGVtcmNvbnRlbn GdvFGgJjFvAPbee212SX0 2iJnnMK6aBIZM C4DKNO0DTKZAViGqZKflz pKucXzeMH4lYFYuMHN0OG 82bKB4pfLob2cnul3sDYO kuXH6Nl04ANOn UwirHE8jPfaySHG0LDecU FR4Pu93CDR6ZBZaBAGjBE KuJewZLUi0DOc3OCWoTPE zPSJkZGNvbXBv idToeEPzEWU6VW87lMU3q NC5eOG0sPM0MpLdo7YynB OrpRQcgAM6Pm78R5Y7Wxl hPB5rE8IfRICk RdwaJqZ2Dq23ISIeLdRnM XM0J9DfBhxMBJm0WNv6CP JjINHfVOGyFEEbYBW2KKk 3RERpozPfa1Wy OxflGmDeDEikeP0ccJ0qm JgfW1U9uPznBYT3s9Ogva lnaHQiIGlkPSJfMjlkMjM 7CGAiODUqNV30 Tne8YOPqCnYsGKg9DAw6Z zE8CbP2Hd2RPXtuj8VbC4 lqTnJfjOXaPIThYaT8HVO qMC8kNXGrOX0x fIZmv5o6xPVXWVrhs9Ftk 4JtekpfqfKftGC2mdOkjr WoJE66fmI0rODfIGVdtIN ectHfmMN8o3C7 HB8tQVwbcMVsvTj8qYVdl LAwqXKsH9ReNW4uO5SdHO 1mxJ3jmHXhXUamJUDlIPP aQ3OzDNWlDS1w RWJdgL3qmA2lHJAxTGCop xJ7lPYwqDEynKewQTEsS6 JpYmVkIGFzIHNoYXJwLCB jrrEzg4BhVOJd u39dtNh9EMPlLXjskFYnL JMtDEuvp9euCCFkOUY4ZJ shSlxrPI5vQPhud7PyEYV vY7neUPB2szTc bnRseSByYXRlZCBhdCBhI MciCDMdMT0wUDbczwJ9g2 bqcqSgHWGyyROmfB2ylSs uLJLpd3XtCFYv rI3tw3X2EG8wQRHts7CcK YIeKRK1tRGlJG3qez6aCM JfgYOiTVY3d6QetNEgZK7 pMCRiRYI6RF8b jSasZbN9GCYhVI6cq6WsN BstlFY8wTXrZT0uXNUnKG 5hz1J5uAG8OuXvQXJprfr wpX5iNiQyaGg4 KMJbDILllcwvLa71wN2eO cIesVd6XM1gnakyzc99i0 X3SGOxdQnymHTtN2jjNAK vdHRvbTogMHB4 OyI+Pu9zbGlbkH4inRAjZ xHehLMjJSrwh8XglyAfRv kww0Xzmo6qY3lxRIf6u5J tfeOlqUqrJX5b yJVpYVjcCj52a3P7GFIxg IvbsMYtQYjzKe7ts2R7p0 05NRAdnWjtcPKfL3nqDMV niBoiFIR5AtVu Y (more content not included)... Normal [facility] Comment on above: Result Comment: Elec tronically Signed By: Joshua Hollingsworth DO.br\Date and Time Signed: 01/30/21 23:39 EDT ED [...] this condition includes: ? Antibiotic medicine. ? Kvei-uun-opbqigq medicines to treat discomfort. ? Drinking enough [...] these instructions at home: Medicines ? Take qnfz-eav-uijlwtp and prescription medicines only as told by [...] content not included)... Normal [facility] ED Patient Summaryon 021 ED Patient Summary [address] [address] Patient Discharge Instructions Person Information Name: RAJIV TOVAR Age: 25 Years Arrival Date: 01/30/2021 20:17:08 Discharge Diagnosis: Acute UTI Primary Care Physician: Alon Weber MD Provider Information Primary Provider: Joshua Hollingsworth DO Advanced Correction Officer:None The exam and treatment you received in the Emergency Department were for an urgent problem and are not intended as complete care. It is important that you follow up with a doctor, nurse practitioner, or physician?s academic affairs assistant for ongoing care. If your symptoms [...] Follow-up Instructions: With: Address: When: Alon Weber [facility] [facility], [address] [place] [id number] Business (1) In 3 days 02/02/2021 In the event that this physician does not participate in your insurance network, please consult with your insurance company to find a nearby participating provider. Patient Education Materials: Urinary Tract Infection, Adult A MESSAGE TO ALL PATIENTS REGARDING OPIOIDS PRESCRIPTION OPIOIDS: WHAT YOU NEED TO KNOW Prescription opioids can be used to help relieve zdojrqwq-xw-avxepm pain and are often prescribed following a [...] be struggling with addiction, tell your health respiratory care technician and ask for guidance or call [employer]?S National Helpline at 3-594-770-EEFQ. v Source: [place] Department of Health a (more content not included)... Normal [facility] UA With Cult Reflexon 2020 Bacteria LM Ql (Urine sed) 1+ /HPF Abnormal Trace [facility] Comment on above: Performed By: #### 1 [id number] ####[facility] [id number] [place] [address] Bilirubin Ql (U) Negative Normal Negative [facility] Comment on above: Performed By: #### 1 [id number] ####[facility] [facility] [address] [place] [address] Clarity (U) CLOUDY Abnormal Clear [facility] Comment on above: Performed By: #### 1 [id number], 2534685 ####[address] [address] Color (U) YELLOW Normal Yellow [facility] Comment on above: Performed By: #### 1 2527869, 3994536 ####[facility] [address] [place] [address] 63774 Crystals LM Ql (Urine sed) Present Normal [facility] Comment on above: Performed By: #### 1 6930449, 3723291 ####[address] [address] Epithelial cells.squamous LM.HPF (Urine sed) [#/Area] 0-2 Normal 0-[address] [facility] Comment on above: Performed By: #### 1 5974538, 8879198 ####[facility] [address] [place] [address] 28368 Glucose Test strip (U) [Mass/Vol] Negative Normal Negative [facility] Comment on above: Performed By: #### 1 6128578, 1729562 ####[facility] [address] [place] [address] 91692 Hemoglobin Ql (U) TRACE Abnormal Negative [facility] Comment on above: Performed By: #### 1 9917396, 1338960 ####[facility] [address] [place] [address] Ketones (U) [Mass/Vol] Negative Normal Negative [facility] Comment on above: Performed By: #### 1 3262090, 5937555 ####[facility] [address] [place] [address]52 Frazer.plasma/Lithi um.RBC (Bld) [Mass ratio] 0-3 Normal 0-[address] [facility] Comment on above: Performed By: #### 1 3664039, 8871489 ####[facility] [address] [place] [address] Mucus Ql (Urine sed) TRACE Normal [facility] Comment on above: Performed By: #### 1 7878127, 7172736 ####[address] [address] Nitrite Ql (U) Positive Abnormal Negative [facility] Comment on above: Performed By: #### 1 3416763, 1959725 ####[facility] [address] [place] [address] 15253 pH (U) 7.5 [pH] Invalid Interpretation Code 5.0-9.[address] [facility] Comment on above: Performed By: #### 1 1555987, 1456740 ####[address] [address] Protein (U) [Mass/Vol] Negative Normal Negative [facility] Comment on above: Performed By: #### 1 9969161, 9578236 ####[address] [address] Specific gravity (U) [Rel density] 1.020 Invalid Interpretation Code 1.005-1.[address] [facility] Comment on above: Performed By: #### 1 6060460, 1078182 ####[address] [address] Type of Urine collection method Clean Catch Normal [facility] Comment on above: Performed By: #### 1 0791355, 2179015 ####[facility] [address] [place] [address] 18170 Urobilinogen Qn (U) 0.2 {Arnie'U}/dL Normal 0.0-1.[address] [facility] Comment on above: Performed By: #### 1 5025858, 6167698 ####[address] [address] WBC Auto Ql (U) 1+ Abnormal Negative [facility] Comment on above: Performed By: #### 1 6632107, 0711851 ####[address] [address] WBC LM.HPF (Urine sed) [#/Area] 6-15 Abnormal 0-[address] [facility] Comment on above: Performed By: #### 1 3621934, 9112029 ####[address] [address] Auto Diffon 01-30-2021 Basophils/100 WBC (Bld) 0.4 % Normal 0.0-2.[address] [facility] Comment on above: Order Comment: Order Added by Discern Expert. Performed By: #### 2 469558, 4124731, 9718532, 34356624, 3432040, 06635290, 6464342 ####[address] [address] Basophils/Leukocytes Auto (Bld) [Pure # fraction] 0.0 E9/L Normal 0.0-0.[address] [facility] Comment on above: Order Comment: Order Added by Discern Expert. Performed By: #### 2 926641, 7094491, 7959910, 48634096, 8564224, 57431137, 6637346 ####[address] [address] Eosinophils/100 WBC (Bld) 1.4 % Normal 0.0-8.[address] [facility] Comment on above: Order Comment: Order Added by Discern Expert. Performed By: #### 2 679230, 1293066, 7618962, 97002084, 9404674, 28145989, 4088421 ####[address] [address] Eosinophils/Leukocyt es Auto (Bld) [Pure # fraction] 0.1 E9/L Normal 0.0-0.[address] [facility] Comment on above: Order Comment: Order Added by Discern Expert. Performed By: #### 2 561744, 9180510, 8800069, 00040728, 2722522, 29704267, 5122816 ####[address] [address] Lymphocytes/100 WBC (Bld) 23.7 % Normal 14.0-50.[address] [facility] Comment on above: Order Comment: Order Added by Discern Expert. Performed By: #### 2 293862, 7161706, 5570178, 26549019, 6378003, 33016981, 0922169 ####[address] [address] Lymphocytes/Leukocyt es Auto (Bld) [Pure # fraction] 1.9 E9/L Normal 1.0-4.[address] [facility] Comment on above: Order Comment: Order Added by Yifan Expert. Performed By: #### 2 142610, 7588294, 9818350, 45081506, 8329950, 64199891, 9594379 ####[address] [address] Monocytes/100 WBC (Bld) 6.2 % Normal 4.0-14.[address] [facility] Comment on above: Order Comment: Order Added by Discern Expert. Performed By: #### 2 488321, 3874732, 7046784, 98198990, 0143958, 53976125, 8906530 ####[address] [address] Monocytes/Leukocytes Auto (Bld) [Pure # fraction] 0.5 E9/L Normal 0.2-1.[address] [facility] Comment on above: Order Comment: Order Added by Discern Expert. Performed By: #### 2 538949, 2749217, 0590924, 66462794, 9313551, 26291862, 0890239 ####[address] [address] Neutrophils/100 WBC (Bld) 68.3 % Normal 36.0-75.[address] [facility] Comment on above: Order Comment: Order Added by Yifan Expert. Performed By: #### 2 962840, 0969951, 2509624, 67734098, 3614343, 13810077, 2112420 ####[address] [place] [address] Neutrophils/Leukocyt es Auto (Bld) [Pure # fraction] 5.6 E9/L Normal 2.0-7.[address] [facility] Comment on above: Order Comment: Order Added by Discern Expert. Performed By: #### 2 850819, 5451706, 5300898, 72891692, 7143316, 23688504, 3967759 ####[facility] [address] [place] [address] BMPon 01-30-2021 Calcium [Mass/Vol] 9.0 mg/dL Normal 8.9-11.[address] [facility] Comment on above: Performed By: #### 2 026779, 8309023, 4853319, 28617608, 3999513, 09740485, 9168250 ####[facility] [address] [place] [address] Creatinine [Mass/Vol] 0.7 mg/dL Normal 0.5-1.[address] [facility] Comment on above: Performed By: #### 2 652790, 9279681, 0562951, 58418814, 2633631, 44547846, 2484138 ####[facility] [address] [place] [address] Urea nitrogen [Mass/Vol] 10 mg/dL Normal 5-[address] [facility] Comment on above: Performed By: #### 2 716611, 6016703, 2412585, 22744903, 8295047, 99449118, 3566932 ####[facility] [address] [place] [address] Urea nitrogen/Creatinine [Mass ratio] 14 No Units Normal 10-[address] [facility] Comment on above: Performed By: #### 2 459931, 0314368, 1729009, 99880294, 7822374, 33985090, 9788499 ####[facility] [address] [place] [address] Anion gap [Moles/Vol] 12 mmol/L Normal 6-[address] [facility] Comment on above: Performed By: #### 2 543518, 6023960, 7870124, 62214852, 8219832, 22817533, 0849058 ####[facility] [address] [place] [address] Chloride [Moles/Vol] 104 mmol/L Normal 101-111 [facility] Comment on above: Performed By: #### 2 241585, 8597629, 4775296, 04603551, 2097117, 26190825, 5325537 ####[facility] [address] [place] [address] CO2 [Moles/Vol] 25 mmol/L Normal 21-31 [facility] Comment on above: Performed By: #### 2 245233, 2728123, 3942191, 70842466, 7791375, 79386399, 2558461 ####[facility] [address] [place] [address] Glucose [Mass/Vol] 93 mg/dL Normal 55-[address] [facility] Comment on above: Result Comment: If t his glucose result represents a fasting glucose, interpretation should refer to the following reference range: 55-99 mg/dL Performed By: #### 2 366105, 6441395, 8434252, 88266594, 2472909, 35182145, 1357818 ####[facility] [address] [place] [address] Potassium [Moles/Vol] 3.8 mmol/L Normal 3.5-5.[address] [facility] Comment on above: Performed By: #### 2 685903, 7625523, 8832365, 79465434, 5526664, 45346516, 2068346 ####[facility] [address] [place] [address] Sodium [Moles/Vol] 137 mmol/L Normal 135-[address] [facility] Comment on above: Performed By: #### 2 662089, 3002278, 3935637, 10514893, 7453340, 84462390, 5303374 ####[facility] [address] [place] [address] CBC w/ Auto Diffon Erythrocyte distribution width (RBC) [Ratio] 12.2 % Normal 10.9-14.[address] [facility] Comment on above: Performed By: #### 2 770548, 0412473, 2098452, 16442699, 3060303, 91014037, 1850587 ####[address] [place] [address] Hematocrit (Bld) [Volume fraction] 39.3 % Normal 34.0-46.[address] [facility] Comment on above: Performed By: #### 2 244862, 2111141, 6323252, 48005595, 6161297, 84852441, 3840267 ####[address] [address] Hemoglobin (Bld) [Mass/Vol] 13.3 g/dL Normal 12.0-16.[address] [facility] Comment on above: Performed By: #### 2 414228, 9636466, 7514115, 42976618, 1677464, 06011473, 8962596 ####[address] [address] MCH (RBC) [Entitic mass] 31.3 pg Normal 27.0-34.[address] [facility] Comment on above: Performed By: #### 2 932661, 6775159, 7948461, 19561510, 1768922, 53056497, 6508420 ####[address] [address] MCHC (RBC) [Mass/Vol] 34.0 g/dL Normal 31.4-36.[address] [facility] Comment on above: Performed By: #### 2 683129, 1480395, 3796956, 48588327, 0398027, 82565510, 0929502 ####[address] [address] MCV (RBC) [Entitic vol] 92.1 fL Normal 80.0-100.[address] [facility] Comment on above: Performed By: #### 2 979884, 7705562, 0795348, 17387836, 9094501, 51764808, 4473588 ####[facility] [address] [place] [address] Platelet mean volume (Bld) [Entitic vol] 9.2 fL Normal 6.4-10.[address] [facility] Comment on above: Performed By: #### 2 830933, 7546880, 4951679, 36773363, 5699911, 95317007, 3995941 ####[facility] [address] [place] [address] Platelets (Bld) [#/Vol] 214.0 E9/L Normal 150.0-500.[address] [facility] Comment on above: Performed By: #### 2 674419, 7849161, 8538070, 81837259, 8575013, 95655857, 6854716 ####[address] [address] RBC (Bld) [#/Vol] 4.3 E12/L Normal 4.3-5.[address] [facility] Comment on above: Performed By: #### 2 012495, 7617980, 5185820, 11140575, 2083018, 95306535, 3194542 ####[address] [place] [address] WBC corrected for nucl RBC Auto (Bld) [#/Vol] 8.2 E9/L Normal 4.0-11.[address] [facility] Comment on above: Performed By: #### 2 742825, 1301560, 9739430, 45627933, 3718763, 47745991, 1731450 ####[address] [place] [address] Consent for Treatmenton Consent for Treatment [id number] .00CD:[address] [facility] Hep Func Panelon 01-30-2021 Albumin [Mass/Vol] 4.0 g/dL Normal 3.3-5.[address] [facility] Comment on above: Performed By: #### 2 638625, 9437106, 5264550, 50381030, 2012054, 80535002, 6989256 #### [facility] [address] [place] [address] Albumin/Globulin (S) [Mass conc ratio] 1.5 Normal 1.1-2.[address] [facility] Comment on above: Performed By: #### 2 125264, 3467513, 6075501, 67824154, 5407364, 35290985, 9971104 #### [facility] [address] [place] [address] ALP [Catalytic activity/Vol] 44 Int._Unit/L Normal 21-[address] [facility] Comment on above: Performed By: #### 2 469082, 8328105, 2023241, 69117469, 8678824, 34623899, 7138735 #### [facility] [address] [place] [address] ALT No additional P-5'-P [Catalytic activity/Vol] 20 Int._Unit/L Normal 6-[address] [facility] Comment on above: Performed By: #### 2 516718, 5409748, 4371295, 68321123, 6035949, 98402247, 3987452 #### [facility] [address] [place] [address] AST [Catalytic activity/Vol] 16 Int._Unit/L Normal 5-[address] [facility] Comment on above: Performed By: #### 2 733960, 4970024, 5135229, 02919584, 3439850, 76902786, 3875154 #### [facility] [address] [place] [address] Bilirubin [Mass/Vol] 1.1 mg/dL Normal 0.0-1.1 [facility] Comment on above: Performed By: #### 2 168560, 4576270, 9430976, 05813913, 8914891, 60275185, 2213501 #### [facility] [address] [place] [address] Bilirubin.direct [Mass/Vol] 0.2 mg/dL Normal 0.1-0.[address] [facility] Comment on above: Performed By: #### 2 057308, 8204321, 9475174, 15395138, 9554691, 60621911, 5913136 #### [facility] [address] [place] [address] Bilirubin.indirect [Mass or moles/Vol] 0.9 mg/dL Normal 0.1-0.[address] [facility] Comment on above: Performed By: #### 2 706760, 1598750, 2723374, 77935001, 4400641, 00358013, 1249655 #### [facility] [address] [place] [address] Globulin (S) [Mass/Vol] 2.6 g/dL Normal 1.4-4.[address] [facility] Comment on above: Performed By: #### 2 830562, 1215442, 3388599, 95354644, 8779301, 77480382, 9793861 #### [facility] [address] [place] [address] Protein [Mass/Vol] 6.6 g/dL Normal 6.0-7.[address] [facility] Comment on above: Performed By: #### 2 481333, 5036673, 9478814, 68331886, 9495893, 32116546, 0966229 #### [facility] [address] [place] [address] Lipase Levelon 01-30-2021 Lipase [Catalytic activity/Vol] 32 U/L Normal 13-[address] [facility] Comment on above: Performed By: #### 2 079798, 6154723, 1515490, 35884439, 7684436, 54795155, 3247435 #### [facility] [address] [place] [address] eGFRon 01-30-2021 GFR/1.73 sq M.predicted among blacks MDRD (S/P/Bld) [Vol rate/Area] mL/min/{1.73_m2} Normal >=[address] [facility] Comment on above: Order Comment: Order added by Discern Expert. Result Comment: eGFR is race adjusted. AA=. Performed By: #### 2 249375, 1697119, 3762880, 30117378, 4885923, 50803052, 0106504 #### [facility] [address] [place] [address] GFR/1.73 sq M.predicted among non-blacks MDRD (S/P/Bld) [Vol rate/Area] mL/min/{1.73_m2} Normal >=[address] [facility] Comment on above: Order Comment: Order added by Discern Expert. Result Comment: Benefits Clerk bib kidney disease could be indicated at eGFR's of less than 60 mL/min/1.73m2. Kidney failure is indicated at less than 15 mL/min/1.73m2. Performed By: #### 2 092776, 5111240, 3195398, 95665572, 7545102, 26419382, 1145465 #### [facility] [address] [place] [address] Provider Letteron 06-03-2020 Provider Letter June 03, 2020 To Whom It May Concern, Rajiv has been under my care and had a lap choly on 05/10/2020. She was seen post operatively on 05/23/2020 and was healing well. Rajiv is released to work on 06/06/2020 with no restrictions. Please call the office at [phone] with any questions/ concerns. Sincerely, Dr. Aiden Izquierdo faxed to [facility] to [phone] [facility] Ambulatory Clinical Summaryo n 05-23-2020 Ambulatory Clinical Summary {[id number]}CD:[id number] Normal [facility] General Surgery Office/Clini c Noteon [...] Aiden IZQUIERDO MD Only if needed [address] [place] [id number]- Additional Instructions: F/U PRN Problem List/Past Medical [...] history is negative Normal [facility] Comment on above: Result Comment: Elec tronically Signed By: Aiden IZQUIERDO MD\.br\Date and Time Signed: 05/23/20 10:17 EST\.br\Electronically Co-Signed By: Mildred Cook MA\.br\Date and Time Co-Signed: 05/23/20 09:55 EST IntraOperative Documentson 07-17-2019 IntraOperative Documents [id number] .00CD:[address] [facility] Ambulatory Clinical Summaryo n 05-16-2020 Ambulatory Clinical Summary {[id number]}CD:[id number] Normal [facility] Gastroenterology Office/Clin ic Noteon 05-16-2020 Gastroenterology Office/Clinic Note Chief Complaint f/u EGD HPI Staff This is a 25 year old female who presents today for a follow up to EGD. History of Present Illness 24 years old white female with no significant past medical history except for anxiety, referred to me from [facility], ER to be evaluated for right upper quadrant abdominal pain, she reports right upper quadrant abdominal pain, started 6 weeks ago, sporadic, moderate in nature except for the last time when it was severe for which she went to [facility], ER, she had normal CBC, CMP [...] asymptomatic now Follow-up With When Contact Information MARU POLK, Ezequiel Only if needed [facility] [address] [place] [address]- Additional Instructions: Patient Education Cholelithiasis Problem List/Past [...] Pathology Report; 04/29/2020 10:57 EST Normal [facility] Comment on above: Result Comment: [...] required. HOME CARE INSTRUCTIONS ? Only take klqy-lta-fqxgnrn or prescription medicines for pain, discomfort, or [...] Document Reviewed: 08/09/2011 ExitCare? Patient Information ?2013 [employer] [place]. [facility] Coding Summary.on 05-13-2020 Coding Summary. CODING DATE: 05/13/2020 FINAL [facility] STATUS: Home (Routine DC) PAYOR: Reba APC DESCRIPTION 5361 Level 1 Laparoscopy and Related Services ADMIT DX: REASON FOR VISIT DX: K81.1 Chronic cholecystitis FINAL DX: PRINCIPAL: K81.1 Chronic cholecystitis SECONDARY: K82.8 Other specified diseases of gallbladder F41.9 Anxiety disorder, unspecified PYMT PROC APC STAT DESCRIPTION DOCTOR NAME DATE 34103 5361 J1 Laparoscopy, surgical; Aiden IZQUIERDO MD 05/10/2020 cholecystectomy with cholangiography 74116 Anesthesia for Bakari Husain Jr, DO 05/10/2020 intraperitoneal procedures in upper abdomen including laparoscopy; not otherwise specified NOTE: The code number assigned matches the documented diagnosis and / or procedure in the patient's chart. However, the narrative phrase printed from the coding software may appear abbreviated, or result in slightly different terminology. Revised Coded By: Eugenia Mae Revised Date Saved: 05/13/2020 02:09 pm [facility] Main OR Intraoperative Recor don 05-13-2020 Main OR Intraoperative Record IntraOp Document Type FT Summary Primary Physician: iAden IZQUIERDO MD Finalized Date/Time: 05/13/20 11:07:53 Pt. Name: RAJIV TOVAR/Sex: 1995 Female Med Rec #: [id number] Physician: Aiden IZQUIERDO MD Financial #: [id number] Pt. Type: A Room/Bed: Admit/Disch: 05/10/20 07:43:57 - 05/10/20 15:00:00 Institution: Case Times FT Entry 1 Patient Times In Room 05/10/20 09:29:00 Out Room 05/10/20 10:27:00 Procedure Times Start 05/10/20 09:44:00 Stop 05/10/20 10:20:00 Anesthesia Times Start 05/10/20 09:29:00 Stop 05/10/20 10:27:00 Last Modified By: My Callahan RN 05/10/20 10:27:42 General Comments: 1011- artificial insemination technician called dr. guo read xray dilated tapers distally can't exclude small stone possible spasm , Dr. Izquierdo stated understanding. Jadon franco rn 05/13/2020 Chart opened to review and send charges. Angela Leavitt DOT NET ARCHITECT. Case Attendance FT Entry 1 Entry 2 Entry 3 Case Attendee Ankit AGUILAR, Linnea IZQUIERDO MD, Aiden ARAUJO MD, Ramandeep Cummings Role Performed Anesthesiologist Surgeon - Primary Surgeon - Assist 1 Saddle Mechanic Time In 05/10/20 09:29:00 05/10/20 09:40:00 05/10/20 [...] TURNER, My Villalba RN, Bernadette Ortiz Cert. Vp Clinical, Arlette Davila Role Performed Pick Up - Primary Scrub - Primary Scrub - [...] Magalie R Role Performed Scrub - Primary Adjustment Clerk Time In 05/10/20 09:29:00 05/10/20 10:00:00 [...] No Time Out Linnea Clemons Given Participants Addy, TIMBO POLK, London Bray RN, Deejay Chowdhury RN, Angel Oglesby Vp Clinical, Carlos Rock CST, Macie C Time Out [...] By: C (more content not included)... Normal [facility] Postoperative Documentson Postoperative Documents [id number]# 1.00CD:[address] [facility] Progress Note-Physicianon Progress Note-Physician Patient: [...] # 10 tab(s), Refills(s) 0, Pharmacy: [facility]/pharmacy #[id number], 168, cm, 04/19/20 6:20:00 EDT, Height/Length Dosing, 58.5, kg, 04/19/20 6:20:00 EDT, Weight Dosing omeprazole 40 mg Cap-DR: 40 mg = 1 cap(s), Oral, Daily, # 30 cap(s), Refills(s) 2, Pharmacy: [facility]/pharmacy #[id number], 168, cm, 04/20/20 10:06:00 EDT, Height/Length Dosing, 59.5, kg, 04/20/20 10:06:00 EDT, Weight Dosing Documented Medications Documented desvenlafaxine 100 mg Tab-: 100 mg = 1 tab(s), Oral, Daily, Refills(s) 0, Depression Problem list: All Problems Biliary dyskinesia / SNOMED CT 916561303 / Confirmed Depression / SNOMED CT 12762353 / Confirmed Histories Past Medical History: No active or resolved past medical history items have been selected or recorded. Family History: Entire family history is negative. Procedure history: EGD (esophagogastroduoden oscopy) gastric outlet reduction (9163262524) on 04/29/2020 at 25 Years. section ([id number]) on 07/23/2019 at 24 Years. Sinus (0223025764). Nasal cautery (543826525). Ankle (4916832). 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 Comments: 05/10/2020 8:26 EST - [employer] MASTER LAY OUT SPECIALIST, Bernarda ovarian cyst drained Social History Social [...] 10:15 EST Heart (more content not included)... [facility] Comment on above: Result Comment: Elec tronically [...] All Problems Biliary dyskinesia / SNOMED CT 400196352 / Confirmed Depression / SNOMED CT 64606941 / Confirmed Physical Examination Vital Signs 05/10/2020 [...] EST Apic (more content not included)... Normal [facility] Comment on above: Result Comment: Elec tronically Signed By: Bakari Husain Jr, DO\.br\Date and Time Signed: 05/13/20 13:20 EST Coding Summary.on 05-12-2020 Coding Summary. CODING DATE: 05/12/2020 FINAL [facility] STATUS: Home (Routine DC) PAYOR: [place] ADMIT DX: REASON FOR VISIT DX: Z01.812 [...] Jaquez CphT Date Saved: 05/12/2020 09:53 pm [facility] Consent for Anesthesiaon Consent for Anesthesia [id number]# 1.00CD:127 [facility] Discharge Instructionson Discharge Instructions [id number]# 1.00CD:127 [facility] [place] IntraOperative Documentson 1 07-11-2019 IntraOperative Documents [id number]# 1.00CD:127 [facility] [place] Operative Reporton 0 Operative Report Date of Surgery: 05/10/2020 SURGEON: Aiden Izquierdo MD, FACS CHIEF SECURITY AND SAFETY OFFICER: Ramandeep Araujo MD, FACS PREOPERATIVE DIAGNOSIS: Chronic [...] Aiden Izquierdo MD, FACS lkr Dictated: 05/10/2020 #[id number] Typed: 05/10/2020 #[id number] cc: Alon Weber M.D. Aiden Izquierdo MD, FACS [facility] [place] Comment on above: Result Comment: Elec tronically Signed By: TIMBO POLK, Aiden Busby.br\Date and Time Signed: 05/11/20 08:04 EST Preoperative Documentson Preoperative Documents [id number]# 1.00CD:127 [facility] [place] Preoperative Documents [id number]# 1.00CD:127 [facility] [place] Consent for Treatmenton 04-24 Consent for Treatment [id number]#1 .00CD:127 [facility] [place] Inpatient Patient Summaryon 05-10-2020 Inpatient Patient Summary [address] [address] [facility] Clinical Discharge Instructions PERSON INFORMATION Name: RAJIV TOVAR PHYSICIANS Admitting Physician: Aiden IZQUIERDO MD Attending Physician: Aiden IZQUIERDO MD PCP: Gus POLK, Alon Discharge Diagnosis: Chronic cholecystitis with calculus Comment: PATIENT EDUCATION INFORMATION Instructions: Post Op Patient Instructions - FT (CUSTOM); How to Use an Incentive Spirometer; Timbo - Post Op Instructions (CUSTOM) Medication Leaflets: Follow up: With: Address: When: Aiden IZQUIERDO [address], [address] [place] [id number] Hammerless (1) Within 7 to 10 days Comments: Call for any problems. Call for followup appointment Type Location Start [facility] Follow Up [facility] 05/16/2020 1:00 PM 05/16/2020 1:15 PM Confirmed MEDICATION LIST Medications to Continue with No Changes Other Medications desvenlafaxine (desvenlafaxine 100 mg Tab-) 1 Tablets By Mouth every day. omeprazole (omeprazole 40 mg Cap-DR) 1 Capsules By Mouth every day. Refills: 2. ondansetron (Zofran ODT 4 mg Tab) 1 Tablets By Mouth 3 times a day. Refills: 0. Comment: Normal [facility] IntraOperative Documentson 07-10-2019 IntraOperative Documents [id number]# 1.00CD:127 [facility] [place] Main OR PACU I Recordon 04-24 Main OR PACU I Record PACU Phase I Document Type FT Summary Primary Physician: Aiden IZQUIERDO MD Finalized Date/Time: 05/10/20 11:13:04 Pt. Name: RAJIV TOVAR/Sex: 1995 Female Med Rec #: [id number] Physician: Aiden IZQUIERDO MD Financial #: [id number] Pt. Type: A Room/Bed: Admit/Disch: 05/10/20 07:43:57 [...] RN 05/10/20 11:[address] [facility] Main OR PACU II Recordon Main OR PACU II Record PACU Phase II Document Type FT Summary Primary Physician: Aiden IZQUIERDO MD Finalized Date/Time: 05/10/20 15:45:07 Pt. Name: RAJIV TOVAR Pilar/Sex: 1995 Female Med Rec #: [id number] Physician: Aiden IZQUIERDO MD Financial #: [id number] Pt. Type: A Room/Bed: [facility] Admit/Disch: 05/10/20 07:43:57 - Institution: Case Times [...] By: Marcelina Cadet RN 05/10/20 15:[address] [facility] Main OR Preoperative Recordo n 05-10-2020 Main OR Preoperative Record PreOp Document Type FT Summary Primary Physician: Aiden IZQUIERDO MD Finalized Date/Time: 05/10/20 10:00:50 Pt. Name: RAJIV TOVAR /Sex: 1995 Female Med Rec #: [id number] Physician: Aiden IZQUIERDO MD Financial #: [id number] Pt. Type: A Room/Bed: AS06/24 Admit/Disch: 05/10/20 [...] RN 05/10/20 10:[address] [facility] Monitor Recordon 05-10-2020 Monitor Record [id number]# 1.00CD:[address] [facility] Outpatient Surgery Discharge Instructionon 05-10-2020 Outpatient Surgery Discharge Instruction [place] [id number] Patient Discharge Instructions PERSON INFORMATION Name: RAJIV TOVAR Date of : 1995 Current Date: 05/10/2020 10:41:36 PHYSICIANS Admitting Physician: Aiden IZQUIERDO MD Discharge Diagnosis: Chronic cholecystitis with calculus ARJIV TOVAR has been given the following list [...] With: Address: When: Aiden [address], [address] [place] [address] Hammerless () Within 7 to 10 days Comments: Call for any problems. Call for followup appointment Type Location [facility] Follow Up [facility] 05/16/2020 1:00 PM 05/16/2020 1:15 PM Confirmed Pharmacy Information: Thank you for choosing [facility] HERE ARE THE MEDICATION CHANGES THAT [...] possible. ? If the spirometer includes a development coach indicator, use this to guide you [...] content not included)... Normal [facility] Patient Education - Texton 1 [...] possible. ? If the spirometer includes a development coach indicator, use this to guide you [...] 10/21/2007 Document Revised: 07/03/2018 Document Reviewed: 04/23/2018 ElseD4P Patient Education ? 2019 [employer] [place], [place] Aiden Izquierdo MD, FACS POST OPERATIVE [...] content not included)... Normal [facility] Progress Note-Physicianon Progress Note-Physician Patient: RAJIV TOVAR Age: 25 years Sex: Female : 1995 Associated Diagnoses: None Author: Aiden IZQUIERDO MD Postoperative Information Date/ Time: 05/10/2020 10:26:00 Preoperative Diagnosis: Chronic cholecystitis with calculus (GCP01-KN K80.10, Working, Medical). Postoperative Diagnosis: Same pending pathology. Procedure: Laparoscopic Cholecystectomy with intraoperative chloangiogram. Performed by: Aiden Izquierdo MD. Saddle Mechanic: Ramandeep Araujo MD. Specimens Removed: Gallbladder. Estimated Blood Loss: 5 ml. Complications: None. Normal [facility] Comment on above: Result Comment: Elec tronically Signed By: Aiden IZQUIERDO MD\.br\Date and Time Signed: 05/10/20 10:27 EST Progress Note-Physician Patient: RAJIV TOVAR Age: 25 years Sex: Female : 1995 Associated Diagnoses: None Author: Aiden IZQUIERDO MD Basic Information No change in History and Physical Normal [facility] Comment on above: Result Comment: [...] ALSO POSSIBLE. CLINICAL HISTORY: Cholelithiasis. COMMENT: Limited ozqqe-mo-dgmo C-arm images were obtained in the OR, [...] Dose: Ka,r in mGy = 3.[address] [facility] Coding Summary.on 05-08-2020 Coding Summary. CODING DATE: 05/07/2020 FINAL [facility] STATUS: Home (Routine DC) PAYOR: Reba [...] 05/07/2020 10:24 pm Normal [facility] Coding Summary.on 05-05-2020 Coding Summary. CODING DATE: 05/05/2020 FINAL [facility] STATUS: Home (Routine DC) PAYOR: Reba APC DESCRIPTION 5301 Level 1 Upper GI Procedures ADMIT DX: REASON FOR VISIT DX: R10.13 Epigastric pain FINAL DX: PRINCIPAL: R10.13 Epigastric pain SECONDARY: R10.11 Right upper quadrant pain F41.9 Anxiety disorder, unspecified PYMT PROC APC STAT DESCRIPTION DOCTOR NAME DATE 70071 [id number] Ezequiel WEST MD 04/29/2020 phagogastroduodenosco py, flexible, transoral; with biopsy, single or multiple 27806 Anesthesia for upper Husain Bakari Berry DO [...] Mae Revised Date Saved: 05/05/2020 11:48 am Normal [facility] Consent for Procedure/Surger yon 05-05-2020 Consent for Procedure/Surgery [id number]#1 .00CD:127 [facility] [place] Formson 05-05-2020 Forms [id number]#1 .00CD:[address] [facility] Priority Order-Mitchell 2019 Priority Order-STAT Comment Invalid Interpretation Code [facility] Comment on above: Result Comment: Rece ived Performed at: [facility] [address], [place] [id number] [facility] Johanny Lozano Performed By: #### 2 [id number], SARS-CoV-2, MARY #### [facility] [address] [place] [address] SARS-CoV-2, NAAon 05-05-2020 SARS-CoV-2 (COVID-19) RNA MARY+probe Ql (Resp) Not detected Invalid Interpretation Code Not Detected [facility] Comment on above: Result Comment: This nucleic acid amplification test was developed and its performance characteristics determined by [facility]. Nucleic acid amplification tests include PCR and [...] detected) result in this assay. Performed at: [facility] [address] [facility] [place] [id number] MD Indira Washington Performed By: #### 2 [id number], SARS-CoV-2, MARY #### [facility] [address] [place] [address] B hCG Qualon 05-04-2020 Beta hCG Ql Negative Normal [facility] Comment on above: Performed By: #### 2 [id number] #### [facility] [address] [place] [address] CBC w/Indiceson 05-04-2020 Erythrocyte distribution width (RBC) [Ratio] 13.1 % Normal 10.9-14.[address] [facility] Comment on above: Performed By: #### 2 979246, [id number] ####[facility] [address] [place] [address] Hematocrit (Bld) [Volume fraction] 40.5 % Normal 34.0-46.[address] [facility] Comment on above: Performed By: #### 2 827302, [id number] ####[address] [address] Hemoglobin (Bld) [Mass/Vol] 14.0 g/dL Normal 12.0-16.[address] [facility] Comment on above: Performed By: #### 2 723413, 6609940 ####[address] [address] MCH (RBC) [Entitic mass] 31.0 pg Normal 27.0-34.[address] [facility] Comment on above: Performed By: #### 2 441994, 4562913 ####[address] [address] MCHC (RBC) [Mass/Vol] 34.6 g/dL Normal 31.4-36.[address] [facility] Comment on above: Performed By: #### 2 361588, 5485409 ####[address] [address] MCV (RBC) [Entitic vol] 89.7 fL Normal 80.0-100.[address] [facility] Comment on above: Performed By: #### 2 686414, 4318444 ####[address] [address] Platelet mean volume (Bld) [Entitic vol] 9.1 fL Normal 6.4-10.[address] [facility] Comment on above: Performed By: #### 2 604610, 0275972 ####[address] [address] Platelets (Bld) [#/Vol] 245.0 E9/L Normal 150.0-500.[address] [facility] Comment on above: Performed By: #### 2 516693, 2000000 ####[facility] [address] [place] [address] RBC (Bld) [#/Vol] 4.5 E12/L Normal 4.3-5.[address] [facility] Comment on above: Performed By: #### 2 341721, 0356823 ####[address] [address] WBC corrected for nucl RBC Auto (Bld) [#/Vol] 5.6 E9/L Normal 4.0-11.[address] [facility] Comment on above: Performed By: #### 2 765107, 0243330 ####[address] [address] Consent for Treatmenton 04-24 Consent for Treatment [id number]#1 .00CD:[address] [facility] Hep Func Panelon 05-04-2020 Albumin [Mass/Vol] 4.2 g/dL Normal 3.3-5.[address] [facility] Comment on above: Order Comment: if no t already done. Performed By: #### 2 012285, 9848521 ####[address] [address] Albumin/Globulin (S) [Mass conc ratio] 1.4 Normal 1.1-2.[address] [facility] Comment on above: Order Comment: if no t already done. Performed By: #### 2 021232, 2688179 ####[facility] [address] [place] [address] ALP [Catalytic activity/Vol] 112 Int._Unit/L High 21-[address] [facility] Comment on above: Order Comment: if no t already done. Performed By: #### 2 345841, 8039760 ####[facility] [address] [place] [address] ALT No additional P-5'-P [Catalytic activity/Vol] 129 Int._Unit/L High 6-[address] [facility] Comment on above: Order Comment: if no t already done. Performed By: #### 2 784873, 9770653 ####[facility] [address] [place] [address] AST [Catalytic activity/Vol] 28 Int._Unit/L Normal 5-[address] [facility] Comment on above: Order Comment: if no t already done. Performed By: #### 2 816592, 6045674 ####[address] [address] Bilirubin [Mass/Vol] 0.7 mg/dL Normal 0.0-1.1 [facility] Comment on above: Order Comment: if no t already done. Performed By: #### 2 300082, 7969313 ####[address] [address] Bilirubin.direct [Mass/Vol] 0.1 mg/dL Normal 0.1-0.[address] [facility] Comment on above: Order Comment: if no t already done. Performed By: #### 2 011573, 4506839 ####[address] [address] Bilirubin.indirect [Mass or moles/Vol] 0.6 mg/dL Normal 0.1-0.[address] [facility] Comment on above: Order Comment: if no t already done. Performed By: #### 2 036526, 6683985 ####[facility] [address] [place] [address] Globulin (S) [Mass/Vol] 3.1 g/dL Normal 1.4-4.[address] [facility] Comment on above: Order Comment: if no t already done. Performed By: #### 2 797337, 3309094 ####[facility] [address] [place] [address] Protein [Mass/Vol] 7.3 g/dL Normal 6.0-7.[address] [facility] Comment on above: Order Comment: if no t already done. Performed By: #### 2 501367, 9252111 ####[facility] [address] [place] [address] Ambulatory Clinical Summaryo n 05-03-2020 Ambulatory Clinical Summary {[id number]}CD:[id number] [facility] [place] Consent for Procedure/Surger yon 05-03-2020 Consent for Procedure/Surgery [id number]#1 .00CD:127 [facility] [place] Consent for Procedure/Surgery [id number]#1 .00CD:127 [facility] [place] Formson 05-03-2020 Forms [id number]#1 .00CD:127 [facility] [place] Forms [id number]#1 .00CD:127 [facility] [place] Physician Orderon 05-03-2020 Physician Order [id number]#1 .00CD:127 [facility] [place] Physician Referralon 020 Physician Referral [id number]#1 .00CD:127 [facility] [place] Postoperative Documentson Postoperative Documents [id number]# 1.00CD:127 [facility] [place] Progress Note-Physicianon Progress Note-Physician Patient: RAJIV TOVAR [...] # 10 tab(s), Refills(s) 0, [id number] 168, cm, 04/19/20 6:20:00 EDT, Height/Length Dosing, 58.5, kg, 04/19/20 6:20:00 EDT, Weight Dosing omeprazole 40 mg Cap-DR: 40 mg = 1 cap(s), Oral, Daily, # 30 cap(s), Refills(s) 2, Pharmacy: [id number], 168, cm, 04/20/20 10:06:00 EDT, [...] Cardiovascular: Regular rhythm. Neurologic: Alert, Oriented. Plan [place] [employer] Anesthesiologists (ASA) physical status classification: Class II. Anesthetic Preoperative Plan Anesthesia: General. . Anesthetic plan, risks, benefits, and alternatives discussed with the patient and/or family. Communication: face to face with (patient 5 minutes, Patient educated on smoking cesstation). Normal [facility] Comment on above: Result Comment: [...] br/min (APR 29:) SBP 134 mmHg (APR 29) DBP 88 mmHg (APR 29) SpO2 100 [...] Discharge: Condition stable. Normal [facility] Comment on above: Result Comment: Elec tronically Signed By: Rodrigue Berry DO, Bakari Cummings\.ilana\Date and Time Signed: 05/03/20 09:37 EST Consenton 05-02-2020 Consent [id number]#1 .00CD:127 [facility] [place] Discharge Instructionson Discharge Instructions [id number]#1 .00CD:[address] [facility] General Surgery Office/Clini c Noteon [...] Contact Information TIMBO POLK, Aiden Davila [address] [place] [address]- Additional Instructions: F/U POST OP. [...] history is negative Normal [facility] Comment on above: Result Comment: Elec tronically Signed By: TIMBO POLK, Aiden Davila\.br\Date and Time Signed: 05/02/20 15:39 EST\.br\Electronically Co-Signed By: Mildred Cook MA\.br\Date and Time Co-Signed: 05/02/20 15:25 EST IntraOperative Documentson 1 07-02-2019 IntraOperative Documents [id number]#1 .00CD:[address] [facility] IntraOperative Documents [id number]#1 .00CD:[address] [facility] Main OR Intraoperative Recor don 05-02-2020 Main OR Intraoperative Record IntraOp Document Type FT Summary Primary Physician: Ezequiel MARTINEZ MD Finalized Date/Time: 05/02/20 08:23:39 Pt. Name: RAJIV TOVAR/Sex: 1995 Female Med Rec #: [id number] Physician: Ezequiel MARTINEZ MD Financial #: [id number] Pt. Type: O Room/Bed: / Admit/Disch: 04/29/20 10:12:58 - 04/29/20 23:59:59 Institution: Case Times FT Entry 1 Patient Times In Room 04/29/20 10:52:00 Out Room 04/29/20 11:04:00 Procedure Times Start 04/29/20 10:56:00 Stop 04/29/20 10:59:00 Anesthesia Times Start 04/29/20 10:52:00 Stop 04/29/20 11:04:00 Last Modified By: Russell Maloney RN 04/29/20 11:04:12 General Comments: 05/02/2020 Chart opened to review and send charges. F Dagmar [employer] NET ARCHITECT. Case Attendance FT Entry 1 Entry 2 Entry 3 Case Attendee Rodrigue Berry DO, Bakari MARTINEZ MD, Russell Lawrence RN Role Performed Anesthesiologist of Surgeon - Primary Pick Up - Primary Record Time In 04/29/20 10:52:00 04/29/20 10:52:00 04/29/20 10:52:00 Time Out 04/29/20 11:04:00 04/29/20 11:04:00 04/29/20 11:04:00 Procedure EGD(.) EGD(.) EGD(.) Comments Last Modified By: Haider TURNER, Russell Maloney RN, Russell Santos RN 04/29/20 11:04:13 11/06/20 11:04:13 04/29/20 11:04:13 Entry 4 Entry 5 Entry 6 Case Attendee Mere TURNER, Charlotte Roberts CST, Aria Role Performed Pick Up - Primary Scrub - Primary Staff - [...] Rodrigue Berry DO, Bakari Cummings, Given Participants MARU POLK, Haider Nieves RN, Mere Costello RN, Jose Mednez Kirstyn K Time Out Complete 04/29/20 10:54:00 [...] content not included)... Normal [facility] Ezequiel Martinez M.D. [address] [place] [address] Re: RAJIV TOVAR Date of : 1995 [...] her operative report following her procedure. Sincerely Aidenmerle Kaplan [facility] Coding Summary.on 04-30-2020 Coding Summary. CODING DATE: 04/29/2020 FINAL [facility] STATUS: Home (Routine DC) PAYOR: Reba [...] Jaquez CphT Date Saved: 04/29/2020 11:14 pm [facility] [place] Consent for Treatmenton Consent for Treatment [id number]#1 .00CD:127 [facility] [place] Endoscopic Procedure Report - Otheron 04-29-2020 Endoscopic [...] upper quadrant pain/cholelithiasis Normal [facility] Comment on above: Result Comment: Elec tronically Signed By: Ezequiel MARTINEZ MD\.br\Date and Time Signed: 04/29/20 11:03 EST Other Comment: Lorri frazier Attachment - attachment storage system not supported [id number] Can be viewed in source systemMissing Attachment - attachment storage system not supported [id number] Can be viewed in source systemMissing Attachment - attachment storage system not supported [id number] Can be viewed in source systemMissing Attachment - attachment storage system not supported [id number] Can be viewed in source systemMissing Attachment - attachment storage system not supported [id number] Can be viewed in source system Inpatient Patient Summaryon 04-29-2020 Inpatient Patient Summary [place] [address] [facility] Clinical Discharge Instructions PERSON INFORMATION Name: RAJIV TOVAR [facility]#:[id number] PHYSICIANS Admitting Physician: Ezequiel MARTINEZ MD Attending Physician: Ezequiel MARTINEZ MD PCP: Gus POLK, Alon Discharge Diagnosis: Abdominal pain Comment: PATIENT EDUCATION INFORMATION Instructions: Medication Leaflets: Follow up: With: Address: When: Aiden IZQUIERDO [address], [address] [place] [address] Business (1) With: Address: When: Nieves [facility] [address], [place] [address] Within 2 weeks Type Location Start [facility] Follow Up [facility] 05/16/2020 1:00 PM 05/16/2020 1:15 PM [...] Refills: 0. Comment: Normal [facility] Main OR PACU I Recordon Main OR PACU I Record PACU Phase I Document Type FT Summary Primary Physician: Ezequiel MARTINEZ MD Finalized Date/Time: 04/29/20 12:13:51 Pt. Name: RAJIV TOVAR/Sex: 1995 Female Med Rec #: [id number] Physician: Ezequiel MARTINEZ MD Financial #: [id number] Pt. Type: O Room/Bed: / Admit/Disch: 04/29/20 [...] Belkys Yarbrough RN Document Signatures Signed By: Blekys Yarbrough RN 04/29/20 12:[address] [facility] Main OR Preoperative Recordo n 04-29-2020 Main OR Preoperative Record Holding Area Document Type FT Summary Primary Physician: Ezequiel MARTINEZ MD Finalized Date/Time: 04/29/20 10:21:44 Pt. Name: RAJIV TOVAR/Sex: 1995 Female Med Rec #: [id number] Physician: Ezequiel MARTINEZ MD Financial #: [id number] Pt. Type: O Room/Bed: / Admit/Disch: 04/29/20 [...] RN 04/29/20 10:[address] [facility] Monitor Recordon 04-29-2020 Monitor Record [id number]# 1.00CD:[address] [facility] Outpatient Surgery Discharge Instructionon 04-29-2020 Outpatient Surgery Discharge Instruction [place] [id number] Patient Discharge Instructions PERSON INFORMATION Name: RAJIV [...] Aiden IZQUIERDO [address], [address] [place] [address] Business (1) With: Address: When: [facility] [address], [facility] [place] [address] Within 2 weeks Type Location [facility] Follow Up [facility] 05/16/2020 1:00 PM 05/16/2020 1:15 PM Confirmed Pharmacy Information: Thank you for choosing [facility] HERE ARE THE MEDICATION CHANGES THAT [...] EDUCATION INFORMATION Instructions: Normal [facility] Patient Education - Texton 1 06-29-2019 Patient Education - Text Normal [facility] Priority Order-Mitchell 2019 Priority Order-STAT Comment Invalid Interpretation Code [facility] Comment on above: Result Comment: Rece ived Performed at: [facility] [address] [facility] [place] [id number] MD Indira Washington Performed By: #### 2 [id number], SARS-CoV-2, MARY #### [facility] [address] [place] [address] SARS-CoV-2, NAAon 04-23-2020 SARS-CoV-2 (COVID-19) RNA MARY+probe Ql (Resp) Not detected Invalid Interpretation Code Not Detected [facility] Comment on above: Result Comment: This nucleic acid amplification test was developed and its performance characteristics determined by [facility]. Nucleic acid amplification tests include PCR and [...] detected) result in this assay. Performed at: [facility] [address], [place] [id number] MD Indira Washington Performed By: #### 2 [id number], SARS-CoV-2, MARY #### [facility] [address] [place] [address] Ambulatory Clinical Summaryo n 04-20-2020 Ambulatory Clinical Summary {[id number] Normal [facility] Coding Summary.on 04-20-2020 Coding Summary. CODING DATE: 04/20/2020 FINAL [facility] DSC STATUS: Home (Routine DC) PAYOR: [place] APC DESCRIPTION 5522 Level 2 Imaging without [...] 04/20/2020 07:55 am Normal [facility] Consent for Procedure/Surger yon 04-20-2020 Consent for Procedure/Surgery [id number]#1 .00CD:[address] [facility] Gastroenterology Office/Clin ic Noteon 04-20-2020 Gastroenterology Office/Clinic Note Chief Complaint f/u to ER RUQ HPI Staff This is a 24 year old female who presents today for a follow up for an ED visit for RUQ pain. History of Present Illness 24 years old white female with no significant past medical history except for anxiety, referred to me from [facility] to be evaluated for right upper quadrant abdominal pain, she reports right upper quadrant abdominal pain, started 6 weeks ago, sporadic, moderate in nature except for the last time when it was severe for which she went to [facility], ER, she had normal CBC, CMP and [...] # 30 cap(s), Refills(s) 2, Pharmacy: [facility]/pharmacy #[id number], 168, cm, 04/20/20 10:06:00 EDT, Height/Length Dosing, 59.5, kg, 04/20/20 10:06:00 EDT, Weight Dosing EGD Endoscopy (Hospital Procedure) 2. Anxiety (F41.9: Anxiety disorder, unspecified) 3. Nausea (R11.0: Nausea) Ordered: omeprazole, 40 mg = 1 cap(s), Oral, Daily, # 30 cap(s), Refills(s) 2, Pharmacy: [facility]/pharmacy #[id number], 168, cm, 04/20/20 10:06:00 EDT, Height/Length Dosing, 59.5, kg, 04/20/20 10:06:00 EDT, Weight Dosing EGD Endoscopy (Hospital Procedure) Follow-up With When Contact Information Ezequiel MARTINEZ MD Within 2 weeks [facility] [address] [place] [address]- Additional Instructions: Patient Education Abdominal [...] history is negative Normal [facility] Comment on above: Result Comment: [...] directed by your caregiver. ? Only take mqxx-aju-lrzdukq or prescription medicines for pain, discomfort, or [...] Document Reviewed: 01/26/2009 ExitCare? Patient Information ?2013 [employer] [place]. Family Medicine Abdominal Pain Abdominal pain can [...] directed by your caregiver. ? Only take ajqj-lef-uxgidzk or prescription medicines for pain, discomfort, or [...] Document Reviewed: 01/26/2009 ExitCare? Patient Information ?2013 [employer] [place]. Normal [facility] Physician Orderon 04-20-2020 Physician Order [id number]# 1.00CD:[address] [facility] Physician Order [id number]#1. 00CD:[address] [facility] Auto Diffon 04-19-2020 Basophils/100 WBC (Bld) 0.6 % Normal 0.0-2.[address] [facility] Comment on above: Order Comment: Order Added by Discern Expert. Performed By: #### 2 [id number] #### [facility] [address] [place] [address] Basophils/Leukocytes Auto (Bld) [Pure # fraction] 0.0 E9/L Normal 0.0-0.[address] [facility] Comment on above: Order Comment: Order Added by Discern Expert. Performed By: #### 2 [id number] #### [facility] [address] [place] [address] Eosinophils/100 WBC (Bld) 0.2 % Normal 0.0-8.[address] [facility] Comment on above: Order Comment: Order Added by Discern Expert. Performed By: #### 2 [id number] #### [facility] [address] [place] [address] Eosinophils/Leukocyt es Auto (Bld) [Pure # fraction] 0.0 E9/L Normal 0.0-0.[address] [facility] Comment on above: Order Comment: Order Added by Discern Expert. Performed By: #### 2 [id number] #### [facility] [address] [place] [address] Lymphocytes/100 WBC (Bld) 34.4 % Normal 14.0-50.[address] [facility] Comment on above: Order Comment: Order Added by Discern Expert. Performed By: #### 2 [id number] #### [facility] [address] [place] [address] Lymphocytes/Leukocyt es Auto (Bld) [Pure # fraction] 2.5 E9/L Normal 1.0-4.[address] [facility] Comment on above: Order Comment: Order Added by Discern Expert. Performed By: #### 2 [id number] #### [facility] [address] [place] [address] Monocytes/100 WBC (Bld) 6.1 % Normal 4.0-14.[address] [facility] Comment on above: Order Comment: Order Added by Discern Expert. Performed By: #### 2 [id number] #### [facility] [address] [place] [address] Monocytes/Leukocytes Auto (Bld) [Pure # fraction] 0.4 E9/L Normal 0.2-1.[address] [facility] Comment on above: Order Comment: Order Added by Discern Expert. Performed By: #### 2 [id number] #### [facility] [address] [place] [address] Neutrophils/100 WBC (Bld) 58.7 % Normal 36.0-75.[address] [facility] Comment on above: Order Comment: Order Added by Discern Expert. Performed By: #### 2 [id number] #### [facility] [address] [place] [address] Neutrophils/Leukocyt es Auto (Bld) [Pure # fraction] 4.2 E9/L Normal 2.0-7.[address] [facility] Comment on above: Order Comment: Order Added by Discern Expert. Performed By: #### 2 [id number] #### [facility] [address] [place] [address] BMPon 04-19-2020 Creatinine [Mass/Vol] 0.8 mg/dL Normal 0.5-1.[address] [facility] Comment on above: Performed By: #### 2 [id number] #### [facility] [address] [place] [address] Urea nitrogen [Mass/Vol] 12 mg/dL Normal 5-[address] [facility] Comment on above: Performed By: #### 2 [id number] #### [facility] [address] [place] [address] Urea nitrogen/Creatinine [Mass ratio] 15 No Units Normal 10-[address] [facility] Comment on above: Performed By: #### 2 [id number] #### [facility] [address] [place] [address] Anion gap [Moles/Vol] 11 mmol/L Normal 6-[address] [facility] Comment on above: Performed By: #### 2 [id number] #### [facility] [address] [place] [address] Calcium [Mass/Vol] 9.7 mg/dL Normal 8.9-11.[address] [facility] Comment on above: Performed By: #### 2 [id number] #### [facility] [address] [place] [address] Chloride [Moles/Vol] 103 mmol/L Normal 101-111 [facility] Comment on above: Performed By: #### 2 [id number] #### [facility] [address] [place] [address] CO2 [Moles/Vol] 27 mmol/L Normal 21-31 [facility] Comment on above: Performed By: #### 2 [id number] #### [facility] [address] [place] [address] Glucose [Mass/Vol] 97 mg/dL Normal 55-[address] [facility] Comment on above: Result Comment: If t his glucose result represents a fasting glucose, interpretation should refer to the following reference range: 55-99 mg/dL Performed By: #### 2 [id number] #### [facility] [address] [place] [address] Potassium [Moles/Vol] 3.5 mmol/L Normal 3.5-5.[address] [facility] Comment on above: Performed By: #### 2 [id number] #### [facility] [address] [place] [address] Sodium [Moles/Vol] 137 mmol/L Normal 135-[address] [facility] Comment on above: Performed By: #### 2 [id number] #### [facility] [address] [place] [address] CBC w/ Auto Diffon 0 Erythrocyte distribution width (RBC) [Ratio] 13.3 % Normal 10.9-14.[address] [facility] Comment on above: Performed By: #### 2 [id number] #### [facility] [address] [place] [address] Hematocrit (Bld) [Volume fraction] 37.6 % Normal 34.0-46.[address] [facility] Comment on above: Performed By: #### 2 [id number] #### [facility] [address] [place] [address] Hemoglobin (Bld) [Mass/Vol] 13.4 g/dL Normal 12.0-16.[address] [facility] Comment on above: Performed By: #### 2 [id number] #### [facility] [address] [place] [address] MCH (RBC) [Entitic mass] 31.9 pg Normal 27.0-34.[address] [facility] Comment on above: Performed By: #### 2 [id number] #### [facility] [address] [place] [address] MCHC (RBC) [Mass/Vol] 35.7 g/dL Normal 31.4-36.[address] [facility] Comment on above: Performed By: #### 2 [id number] #### [facility] [address] [place] [address] MCV (RBC) [Entitic vol] 89.2 fL Normal 80.0-100.[address] [facility] Comment on above: Performed By: #### 2 [id number] #### [facility] [address] [place] [address] Platelet mean volume (Bld) [Entitic vol] 9.4 fL Normal 6.4-10.[address] [facility] Comment on above: Performed By: #### 2 [id number] #### [facility] [address] [place], [place] [address] Platelets (Bld) [#/Vol] 219.0 E9/L Normal 150.0-500.[address] [facility] Comment on above: Performed By: #### 2 [id number] #### [facility] [address] [place] [address] RBC (Bld) [#/Vol] 4.2 E12/L Low 4.3-5.[address] [facility] Comment on above: Performed By: #### 2 [id number] #### [facility] [address] [place] [address] WBC corrected for nucl RBC Auto (Bld) [#/Vol] 7.2 E9/L Normal 4.0-11.[address] [facility] Comment on above: Performed By: #### 2 [id number] #### [facility] [address] [place], [place] [address] Consent for Treatmenton 03-25 Consent for Treatment [id number] .00CD:[address] [facility] Discharge Instructionson Discharge Instructions [id number] 1.00CD:[address] [facility] ED Clinical Summaryon 2019 ED Clinical Summary [place] [address] ED Clinical Summary Person Information Name: RAJIV TOVAR/NewGarcia Age: 24 Years : 1995 Sex: Female Language: Polish PCP: Alon Weber MD Marital Status: Single [...] 08:58:55 04/19/2020 08:58:55 04/19/2020 08:58:55 ADDRESS: [address] [facility] [id number] PHYS DOC NOTES: Addendum by Laureano Phillip DO on April 19, 2020 08:26:02 EDT MEDICAL INFORMATION: Prescriptions Given: New Medications [id number], [address] [place], [place] [id number], [phone] dicyclomine (dicyclomine 20 mg Tab) 1 Tablets By Mouth 3 times a day for 7 Days. Refills: 0. ondansetron (Zofran ODT 4 mg Tab) 1 Tablets By Mouth 3 times a day. Refills: 0. PATIENT EDUCATION INFORMATION: Instructions: Cholelithiasis Follow up: With: Address: When: [facility], [address] [place] [address] Business (1) In 3 days 04/22/2020 DIAGNOSIS: 1:Abdominal pain; Biliary colic; Gall stone; Nausea Normal [facility] ED Note-Nursingon 04-19-2020 ED Note-Nursing Report received from Zacarias Cuevas RN. Patient resting on cart. Updated on plan of care. Denies any needs at this time. Call light in reach. Normal [facility] ED Note-Physicianon 04-19-20 20 ED Note-Physician Basic [...] cholelithiasis, biliary colic Normal [facility] Comment on above: Result Comment: [...] medicine. HOME CARE INSTRUCTIONS ? Only take gota-avl-tkpqsri or prescription medicines for pain, discomfort, or [...] Document Reviewed: 12/02/2013 ExitCare? Patient Information ?2015 [employer] [place]. This information is not intended to replace advice given to you by your health care provider. Make sure you discuss any questions you have with your health care provider. Normal [facility] ED Patient Summaryon 020 ED Patient Summary [address] [address] Patient Discharge Instructions Person Information Name: RAJIV TOVAR Age: 24 Years Arrival Date: 04/19/2020 06:10:12 Discharge Diagnosis: 1:Abdominal pain; Biliary colic; Gall stone; Nausea Primary Care Physician: Alon Weber MD Provider Information Primary Provider: Susana Belcher M.D. Advanced Correction Officer:None The exam and treatment you received in the Emergency Department were for an urgent problem and are not intended as complete care. It is important that you follow up with a doctor, nurse practitioner, or physician?s academic affairs assistant for ongoing care. If your symptoms become worse or you do not improve as expected and you are unable to reach your usual health care provider, you should return to the Emergency Department. We are available 24 hours a day. RAJIV TOVAR has been given the following list of patient education materials, prescriptions and follow-up instructions: Follow-up Instructions: With: Address: When: [facility], [address] [place] [address] Business (1) In 3 days 04/22/2020 In the event that this physician does not participate in your insurance network, please consult with your insurance company to find a nearby participating provider. Patient Education Materials: Cholelithiasis A MESSAGE TO ALL PATIENTS REGARDING OPIOIDS PRESCRIPTION OPIOIDS: WHAT YOU NEED TO KNOW Prescription opioids can be used to help relieve ujhkvoar-rs-kczcoa pain and are often prescribed following a [...] be struggling with addiction, tell your health respiratory care technician and ask for guidance or call [facility]?S National Helpline at 9-846-2 (more content not included)... Normal [facility] Hep Func Panelon 04-19-2020 Bilirubin.indirect [Mass or moles/Vol] UTC Abnormal 0.1-0.[address] [facility] Comment on above: Result Comment: Resu lt verified by Discern Rule. Performed result UTC (Unable to Calculate) was sent as an Alpha code due the inability to calculate a valid numeric value. Performed By: #### 2 [id number] #### [facility] [address] [place] [address] Albumin [Mass/Vol] 4.3 g/dL Normal 3.3-5.[address] [facility] Comment on above: Performed By: #### 2 [id number] #### [facility] [address] [place] [address] Albumin/Globulin (S) [Mass conc ratio] 1.5 Normal 1.1-2.[address] [facility] Comment on above: Performed By: #### 2 [id number] #### [facility] [address] [place] [address] ALP [Catalytic activity/Vol] 77 Int._Unit/L Normal 21-[address] [facility] Comment on above: Performed By: #### 2 [id number] #### [facility] [address] [place] [address] ALT No additional P-5'-P [Catalytic activity/Vol] 59 Int._Unit/L High 6-[address] [facility] Comment on above: Performed By: #### 2 [id number] #### [facility] [address] [place] [address] AST [Catalytic activity/Vol] 36 Int._Unit/L Normal 5-[address] [facility] Comment on above: Performed By: #### 2 [id number] #### [facility] [address] [place] [address] Bilirubin [Mass/Vol] 0.4 mg/dL Normal 0.0-1.1 [facility] Comment on above: Performed By: #### 2 [id number] #### [facility] [address] [place] [address] Bilirubin.direct [Mass/Vol] mg/dL Normal 0.1-0.[address] [facility] Comment on above: Performed By: #### 2 [id number] #### [facility] [address] [place] [address] Globulin (S) [Mass/Vol] 2.8 g/dL Normal 1.4-4.[address] [facility] Comment on above: Performed By: #### 2 [id number] #### [facility] [address] [place] [address] Protein [Mass/Vol] 7.1 g/dL Normal 6.0-7.[address] [facility] Comment on above: Performed By: #### 2 [id number] #### [facility] [address] [place] [address] Lipase Levelon 04-19-2020 Lipase [Catalytic activity/Vol] 43 U/L Normal 13-[address] [facility] Comment on above: Performed By: #### 2 [id number] #### [facility] [address] [place] [address] PT & PTTon 04-19-2020 aPTT Coag (PPP) [Time] 30.2 second(s) Normal 25.1-36.[address] [facility] Comment on above: Result Comment: Hepa rin therapeutic range (represented by Anti-Factor Xa activity of 0.2 - 0.4 U/mL) corresponds to PTT of 56.6 - 109.0 sec. Performed By: #### 2 [id number] #### [facility] [address] [place] [address] INR Coag (PPP) [Relative time] 1.0 {INR} Invalid Interpretation Code [facility] Comment on above: Result Comment: INR results are specifically intended to assess patients stabilized on long-term Anticoagulation therapy suggested INR?s ?Less Intensive Anticoagulation? 2.0 ? 3.0 Conventional Range 3.0 ? 4.5 Performed By: #### 2 [id number] #### [facility] [address] [place], [place] [address] PT Coag (PPP) [Time] 11.8 second(s) Normal 10.2-12.[address] [facility] Comment on above: Performed By: #### 2 [id number] #### [facility] [address] [place] [address] Prescriptions/Work Noteson 1 Prescriptions/Work Notes [id number]# 1.00CD:[address] [facility] U BetaHcg Qualon 04-19-2020 HCG.beta subunit (U) [Moles/Vol] Negative Normal [facility] Comment on above: Performed By: #### 2 [id number] #### [facility] [address] [place], [place] [address] UA With Cult Reflexon 2019 Bacteria LM Ql (Urine sed) TRACE Normal Trace [facility] Comment on above: Performed By: #### 2 [id number] #### [facility] [address] [place] [address] Bilirubin Ql (U) Negative Normal Negative [facility] Comment on above: Performed By: #### 2 [id number] #### [facility] [address] [place] [address] Clarity (U) CLEAR Normal Clear [facility] Comment on above: Performed By: #### 2 [id number] #### [facility] [address] [place] [address] Color (U) YELLOW Normal Yellow [facility] Comment on above: Performed By: #### 2 [id number] #### [facility] [address] [place] [address] Crystals LM Ql (Urine sed) Present Normal [facility] Comment on above: Performed By: #### 2 [id number] #### [facility] [address] [place] [address] Epithelial cells.squamous LM.HPF (Urine sed) [#/Area] 3-4 Normal 0-[address] [facility] Comment on above: Performed By: #### 2 [id number] #### [facility] [address] [place] [address] Glucose Test strip (U) [Mass/Vol] Negative Normal Negative [facility] Comment on above: Performed By: #### 2 [id number] #### [facility] [address] [place] [address] Hemoglobin Ql (U) TRACE Abnormal Negative [facility] Comment on above: Performed By: #### 2 [id number] #### [facility] [address] [place] [address] Ketones (U) [Mass/Vol] Negative Normal Negative [facility] Comment on above: Performed By: #### 2 [id number] #### [facility] [address] [place] [address] Frazer.plasma/Lithi um.RBC (Bld) [Mass ratio] 0-3 Normal 0-[address] [facility] Comment on above: Performed By: #### 2 [id number] #### [facility] [address] [place] [address] Nitrite Ql (U) Negative Normal Negative [facility] Comment on above: Performed By: #### 2 [id number] #### [facility] [address] [place] [address] pH (U) 6.5 [pH] Invalid Interpretation Code 5.0-9.[address] [facility] Comment on above: Performed By: #### 2 [id number] #### [facility] [address] [place] [address] Protein (U) [Mass/Vol] Negative Normal Negative [facility] Comment on above: Performed By: #### 2 [id number] #### [facility] [address] [place] [id number] Specific gravity (U) [Rel density] 1.025 Invalid Interpretation Code 1.005-1.[address] [facility] Comment on above: Performed By: #### 2 [id number] #### [facility] [address] [place] [address] UA Spec Desc Clean Catch Normal [facility] Comment on above: Performed By: #### 2 [id number] #### [facility] [address] [place] [id number] Urobilinogen Qn (U) 0.2 {Arnie'U}/dL Normal 0.0-1.[address] [facility] Comment on above: Performed By: #### 2 [id number] #### [facility] [address] [place] [address] WBC Auto Ql (U) Negative Normal Negative [facility] Comment on above: Performed By: #### 2 [id number] #### [facility] [address] [place] [address] WBC LM.HPF (Urine sed) [#/Area] 0-5 Normal 0-[address] [facility] Comment on above: Performed By: #### 2 [id number] #### [facility] [address] [place] [address] US Abdomen, Limitedon 2019 US Abdomen, Limited [...] OLGA Technologist: RENETTA Kaplan [facility] eGFRon 04-19-2020 GFR/1.73 sq M.predicted among blacks MDRD (S/P/Bld) [Vol rate/Area] mL/min/{1.73_m2} Normal >=[address] [facility] Comment on above: Order Comment: Order added by Discern Expert. Result Comment: eGFR is race adjusted. AA=. Performed By: #### 2 [id number] #### [facility] [address] [place] [address] GFR/1.73 sq M.predicted among non-blacks MDRD (S/P/Bld) [Vol rate/Area] mL/min/{1.73_m2} Normal >=[address] [facility] Comment on above: Order Comment: Order added by Discern Expert. Result Comment: Benefits Clerk bib kidney disease could be indicated at eGFR's of less than 60 mL/min/1.73m2. Kidney failure is indicated at less than 15 mL/min/1.73m2. Performed By: #### 2 [id number] #### [facility] [address] [place] [address] Encounters Encounter Date Encounter Type Care Provider Facility Start: 03-03-2024 End: 03-03-2024 ambulatory FLYNN ARCHIBALD Not Available Start: 01-13-2024 End: 01-13-2024 ambulatory Harley Maldonado MD [facility]: [facility] Start: 12-23-2023 End: 12-23-2023 ambulatory Harley Maldonado MD [facility]: [facility] Start: 11-25-2023 End: 11-25-2023 ambulatory Harley Maldonado MD Facility: [place] Start: 10-21-2023 End: 10-21-2023 ambulatory LEWIS SEWELL Not Available Start: 09-09-2023 End: 09-09-2023 ambulatory FLYNN BLAKE Not Available Start: 08-22-2023 End: 08-22-2023 ambulatory FLYNN BLAKE Not Available Start: 08-08-2023 Bambowesley flowsmena ledesma MD Work Phone: [facility] [...] DERM [address] [place] [address] My Singh MD [address] [place] [address] [facility] Start: 08-22-2023 End: 08-22-2023 Patient encounter procedure 08/22/2023 11:50 AM EST Office Visit [facility] [address] [id number] Flynn Archibald DO [address] [place] [address] [facility] Payers Date Payer Category Payer Unknown [id number] 1993 Unknown [id number] 2.16.84 [id number] 1993 Unknown [id number] 2.16.84 0.1.037353.3.579.2.593 1993 Unknown [id number] 2.16.84 0.1.467030.3.579.2.593 1993 Unknown [id number] 2.16.84 0.1.196252.3.579.2.593 1993 Unknown [id number] 2.16.84 0.1.660723.3.579.2.593 1993 Unknown [id number] 2.16. 840.1.955489.3.579.2.196 1993 Unknown [id number] 2.16. 840.1.667967.3.579.2.196 1993 Unknown [id number] 2.16. 840.1.337448.3.579.2.196 1993 Unknown [id number] 2.16.84 0.1.627560.3.579.2.1259 1993 Unknown [id number] 2.16.84 0.1.740719.3.579.2.1259 1993 Unknown [id number] 2.16.84 0.1.942656.3.579.2.1259 1993 Unknown [id number] 2.16.84 0.1.339674.3.579.2.1259 1993 Unknown [id number] 2.16.84 0.1.751157.3.579.2.1259 1959 Unknown [id number] Social History Date Type Detail Facility Tobacco smoking stat [facility] Tobacco smoking consumption unknown [facility] Start: 1995 Sex Assigned At Not on file [facility] Start: 08-08-2023 Gender identity Not on file [facility] Start: 08-08-2023 Tobacco smoking stat [facility] Never smoked tobacco [facility] Start: 08-08-2023 [...] year (follow up) documented in this encounter [facility] Consultation note 07-18-2021 Note Date & [...] to proceed. CC: Dr. Alon Weber [facility] Consultation note 07-18-2021 Note Date & [...] like to proceed. CC: Dr. Alon Weber [facility] Signed and Approved by: DR AKASH MARTINEZ . 07/25/2021 08:02:00 [facility] Clinical Note 02-28-2021 Note Date & Type Note Facility 02-28-2021 Note Infectious Disease COVID-19: How to Protect Yourself and Others Know how it spreads ? There is currently no vaccine to prevent coronavirus disease 2019 (COVID-19). ? The best way to prevent illness is to avoid being exposed to this virus. ? The virus is thought to spread mainly from emqzig-gu-wlkahn. ? Between people who are in close [...] are not readily available, use a hand agent broker that contains at least 60% alcohol. Cover [...] at higher risk of getting very sick.www.cdc.gov/coronavirus/2019-ncov/n ixk-jbvab-jzdkrzyynoi/rmvsvy-xh-kauzmm-r isk.html Cover your mouth and nose with [...] available, clean your hands with a hand agent broker that contains at least 60% alcohol. Clean and disinfect ? Clean AND disinfect frequently touched surfaces daily. This includes tables, doorknobs, light switches, countertops, handles, desks, phones, keyboards, toilets, faucets, and sinks. www.cdc.gov/coronavirus/2019-ncov/preven l-rfcrsoq-ymgg/uyldrdvcvfhf-japm-mctv.ht ml ? If surfaces are dirty, clean [...] 10/06/2019 Document Revised: 12/31/2019 Document Reviewed: 12/31/2019 ElseD4P Patient Education ? 2019 [employer]. COVID-19 Frequently Asked Questions COVID-19 (coronavirus disease) is an infection that is caused by a large family of viruses. Some viruses cause illness in people and others cause illness in animals like camels, cats, and bats. In some cases, the viruses that cause illness in animals can spread to humans. Where did the coronavirus come from? In May 2019, [place] told the World Health Organization (WHO) of several cases of lung disease (human respiratory illness). These cases were linked to an open seafood and livestock market in the city of [facility]. The link to the seafood and [...] naming World Health Organization (WHO): www.who.int/emergencies/diseases/novel-c oronavirus-2019/technical-guidance/joe f-fif-raxqruniuzo (more content not included)... [facility] History and physical note 05-05-2020 Note Date & Type Note Facility 05-05-2020 Note [id number] #1.00CD:[address] [facility] History and physical note 05-02-2020 Note Date & Type Note Facility 05-02-2020 Note [id number] #1.00CD:[address] [facility] Evaluation note Note Date & [...] section and content) DATE CREATED AUTHOR 03/05/2021 [facility] DATE CREATED AUTHOR AUTHOR'S ORGANIZ ATION 04/10/2021 [facility] DATE CREATED AUTHOR AUTHOR'S ORGANIZ ATION 07/02/2022 [facility] DATE CREATED AUTHOR AUTHOR'S ORGANIZ ATION 01/18/2024 [facility] DATE CREATED AUTHOR AUTHOR'S ORGANIZ ATION 03/04/2024 [facility] EPIC Reason for Visit (unrecogniz ed section and [...] ON THE PRIMARY CLINICAL RECORDS. [facility]. provides no warranty or guarantee of the accuracy or completeness of information in this document.
[2024-03-09 07:55] VITALS: BP 133/88; PULSE 100; TEMP 36.9; O2SAT 98
[2024-03-09 08:06] LABS: HCG Qualitative NEGATIVE (NEGATIVE); Internal Control Within Normal Limits
[2024-03-09] MEDS: 0.9 % SODIUM CHLORIDE 500 ML IV (08:06)
[2024-03-09] MEDS: TRIAMCINOLONE ACETONIDE 40 MG/ML VIAL 80 MG INJ (09:01)
[2024-03-09] MEDS: LIDOCAINE HCL 2% 400 MG/20 ML MDV INJ (09:01)
[2024-03-09] MEDS: BUPIVACAINE HCL 0.25% PF 25 MG/10 ML VIAL 5 ML INJ (09:01)
--- NOTE | 2024-03-09 09:01 | P.ON_ITS ---
Date of procedure: 03/09/24 Pre-op diagnosis: Pain due to lumbar spondylosis without myelopathy Post-op diagnosis: same as pre-op Procedure: Procedure: Bilateral L4-5, L5-S1 radiofrequency ablation Medications: Bupivacaine 0.25% 5cc, lidocaine 2% 6cc, kenalog 80mg The patient was seen and examined in the preoperative holding area.? The site was marked.? Written informed consent was obtained and placed on the chart.? The patient was brought to the medical procedure unit and placed in the prone position.? A timeout was completed verifying correct patient, procedure, positioning, and special requirements.? The skin overlying the target points, the designated medial branch, were prepped and draped in the usual sterile fashion.? The target point was achieved with a 20-gauge 15 cm with a 10 mm curved active tip radiofrequency cannula under direct fluoroscopic visualization.? The needle was inserted at level L4 on the right side. Needle tip position was confirmed with lateral fluoroscopic position.? Motor stimulation was carried out at 2 Hz up to 5 volts with the absence of extremity activity.? This was repeated at level L5, S1 on right side.?? Sensory stimulation was carried out.? Concordant pain was realized at the above- mentioned sites.? Then radiofrequency lesioning was carried out times 90 seconds at 80 degrees times 2 lesions at each level.? The radiofrequency probe was removed prior to cannula removal.? The above-mentioned injectate was placed in 1 mL increments.? The needle was removed. The same procedure, with the same steps, was then completed on the left side at the same levels. Insertion sites were covered.? The patient was taken to the postoperative recovery area and monitored for an appropriate length of time before being found suitable for discharge in the company of a responsible adult. Anesthesia: MAC Surgeon: Harley Maldonado Pathology: none sent Condition: stable Disposition: no change
[2024-03-09 09:05] VITALS: BP 99/64; PULSE 97; TEMP 36.7; O2SAT 100
[2024-03-09 09:12] VITALS: BP 104/67; PULSE 99; TEMP 36.7; O2SAT 97
== END 2024-03-09 09:26 | disposition home or self-care (01) ==
LOC: SURGOUT 07:36
PROVIDERS: PCP Family Medicine; Visit Provider Anesthesiology
PROC: (CPT 1940; principal; 2024-03-09 08:40)
DX: M47.816 Spondylosis without myelopathy or radiculopathy, lumbar region (principal)
CPT/HCPCS: 36415; 64635; 64636; 84703; J0665; J2704; J3301

== ENCOUNTER 2024-04-01 09:42 | Outpatient (RCR) | payer BC, SELFPAY | END 2024-05-14 07:59 | disposition home or self-care (01) | LOC: PT 09:42 | PROVIDERS: PCP Family Medicine; Visit Provider Podiatrist Foot & Ankle Surgery | DX: T84.84XD Pain due to internal orthopedic prosthetic devices, implants and grafts, subsequent encounter (principal) | CPT/HCPCS: 97026; 97035; 97110; 97112; 97140; 97162 ==

== ENCOUNTER 2024-04-30 13:29 | Outpatient (OUT) | payer BC, SELFPAY ==
--- NOTE | 2024-04-30 13:38 | P.CN_ITS ---
Consult Note: HPI Data of Consult Patient: known to practice within the last 3 years Consult date: 12/23/23 Requesting Physician: Estelita Teran NP Primary Care Provider: Sixto Gomez MD Consult Narrative Reason for consult: low back pain Narrative: 29yof who presents for assessment. continues to note significant axial pain worsened with standing and ambulation. lumbar mri reviewed, which did not show any disc herniations. continues to engage in a series of provider directed home exercises for >6 weeks, without any significant benefit. uses OTC pain meds and NSAIDs as necessary, but does not like taking medications. recently underwent bilateral L4-5 L5-S1 facet medial branch RFA with 80-85% improvement ongoing. cc:: CC: Estelita Teran NP Review of Systems ROS Status of ROS 10 or more systems reviewed and unremark able except as noted in history and below Musculoskeletal Denies: back pain or joint pain [facility] Medical History (Updated 04/30/24 @ 13:44 by Estelita Teran NP) Pain of joint of left ankle and foot ?M25.572 - Pain in left ankle and joints of left foot (ICD-10) Primary osteoarthritis, left ankle and foot ?M19.072 - Primary osteoarthritis, left ankle and foot (ICD-10) Painful orthopaedic hardware ?T84.84XA - Pain due to internal orthopedic prosthetic devices, implants and grafts, initial encounter (ICD-10) Insomnia ?G47.00 - Insomnia, unspecified (ICD-10) PTSD (post-traumatic stress disorder) ?F43.10 - Post-traumatic stress disorder, unspecified (ICD-10) Panic attacks ?F41.0 - Panic disorder [episodic paroxysmal anxiety] (ICD-10) Depression ?F32.A - Depression, unspecified (ICD-10) Anxiety ?F41.9 - Anxiety disorder, unspecified (ICD-10) COVID-19 ?U07.1 - COVID-19 (ICD-10) Migraine ?G43.909 - Migraine, unspecified, not intractable, without status migrainosus (ICD-10) Endometriosis ?N80.9 - Endometriosis, unspecified (ICD-10) Pelvic pain ?R10.2 - Pelvic and perineal pain (ICD-10) Heart murmur ?R01.1 - Cardiac murmur, unspecified (ICD-10) Hyperthyroidism ?E05.90 - Thyrotoxicosis, unspecified without thyrotoxic crisis or storm (ICD-10) Postoperative nausea and vomiting ?R11.2 - Nausea with vomiting, unspecified (ICD-10) ?Z98.890 - Other specified postprocedural states (ICD-10) Surgical History S/P epidural steroid injection ?Z92.241 - Personal history of systemic steroid therapy (ICD-10) H/O laparoscopy (10/11/23) ?Z98.890 - Other specified postprocedural states (ICD-10) History of cholecystectomy ?Z90.49 - Acquired absence of other specified parts of digestive tract (ICD- 10) History of laparoscopy ?Z98.890 - Other specified postprocedural states (ICD-10) History of section ?Z98.891 - History of uterine scar from previous surgery (ICD-10) History of ankle surgery ?Z98.890 - Other specified postprocedural states (ICD-10) History of ankle surgery ?Z98.890 - Other specified postprocedural states (ICD-10) History of ankle surgery ?Z98.890 - Other specified postprocedural states (ICD-10) Family History Other Family history of breast cancer Family history of hypertension Family history of leukemia Family history of lung cancer Social History Within the past year, how often did you have a drink containing alcohol: monthly or less Smoking status: Never smoker Non-prescribed substance use: denies use 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 Highest level of school completed/degree received: high school graduate Meds Home Medications and Allergies Home Medications ?Medication ?Instructions ?Recorded ?Confirmed ?Type drospirenone 3 mg-ethinyl 1 tab PO DAILY 07/01/23 03/09/24 History estradiol 0.03 mg tablet hydroxyzine pamoate 50 mg capsule 50 mg PO Q6H PRN nausea and 07/01/23 03/09/24 History vomiting venlafaxine 150 mg 150 mg PO DAILY 07/01/23 03/09/24 History capsule,extended release 24 hr valacyclovir 500 mg tablet 500 mg PO Q12H PRN skin breakout 10/02/23 03/09/24 History ibuprofen 800 mg tablet 800 mg PO Q8H PRN pain 14 days #40 10/11/23 03/09/24 Rx tabs prazosin 1 mg capsule 1 mg PO QPM 11/25/23 03/09/24 History aripiprazole 5 mg tablet (Abilify) 5 mg PO DAILY 02/17/24 03/09/24 History lamotrigine 25 mg tablet 25 mg PO DAILY 02/17/24 03/09/24 History Allergies Allergy/AdvReac Type Severity Reaction Status Date / Time Penicillins Allergy Hives Verified 03/09/24 08:01 Sulfa (Sulfonamide Allergy Hives Verified 03/09/24 08:01 Antibiotics) hydrocodone AdvReac Intermediate Hives Verified 03/09/24 08:01 oxycodone AdvReac Intermediate Hives Verified 03/09/24 08:01 Exam Constitutional Documenting provider has reviewed patient's vital signs: yes Common normals: no apparent distress, oriented x3, healthy appearing, alert and well nourished General appearance: cooperative HENMT Common normals: normocephalic, hearing grossly normal bilaterally and moist oral mucous membranes Head and scalp: normocephalic Eye Common normals: PERRL Pupil: PERRL Neck & C-Spine Common normals: full ROM General: normal visual inspection Chest Common normals: inspection of chest normal Respiratory Common normals: normal respiratory effort, no retractions and no use of accessory muscles Back & Pelvis Lumbar spine/lower back: paraspinal muscle tenderness and straight leg raise negative bilaterally; ROM not limited and no pain with ROM Sacroiliac joints: SI joints normal Other: facet loading negative bilaterally no tenderness over bilateral L4-S1 facets strength 5/5 in BLE, sensation intact BLE Extremity Common normals: normal to inspection and full ROM Neuro Common normals: oriented x3, CN's II-XII intact bilaterally, moves all extremities, no focal motor deficits, no sensory deficits noted and deep tendon reflexes 2+ bilaterally Sensorium/orientation: alert Motor exam: strength 5/5 throughout and no movement abnormalities noted Psych Common normals: mental status grossly normal, thought process normal, cooperative, affect normal, speech normal and activity/motor behavior normal Speech: normal speech Thought process: normal thought process Results Additional Findings Additional findings: If on a controlled substance or opioids, I have checked an [place] report on this patient and there are no aberrancies noted in the prescribing history.??If on a controlled substance or opioid a drug screen was completed and reviewed within the last year, and if there has not been a drug screen completed we ordered one today to monitor higher risk, state monitored pain medication use. As part of providing excellent, safe, comprehensive care, the following was completed at our patient's visit: 1. A medication reconciliation and review to ensure accurate knowledge of current/active medications, including asking our patients to inform us about any wipt-dzp-zhmoxsi medications or herbal remedies/nutritional supplem ents/alternative remedies. 2. A review to specifically ensure our patients have had annual screening for screening for depression, screening for tobacco use, and screening for unhealthy alcohol use. For concerning screenings had a discussion with the patient, provided patient education, and recommended follow-up with primary care provider when appropriate. If patient noted with a risk of falling, they received education on strength, gait, and balance training to prevent future risk of falling. Assessment and Plan Assessment and Plan (1) Lumbar spondylosis: Assessment and Plan: ISMAEL 18%, previously 36%+ (2) Myalgia: Assessment and Plan: encouraged routine stretching and incorporating exercises for SIJ and low back. mild myofascial pain on exam Plan continue HEP as tolerated continue current medications PRN f/u PRN, as discussed RFAs should provide at least 50% improvement in pain and functional ability for at least 6 months
== END 2024-04-30 13:30 | disposition home or self-care (01) ==
LOC: PM 13:29
PROVIDERS: PCP Family Medicine; Visit Provider Nurse Practitioner
DX: M47.816 Spondylosis without myelopathy or radiculopathy, lumbar region (principal); M79.18 Myalgia, other site
CPT/HCPCS: G0463

== ENCOUNTER 2024-10-09 09:25 | Outpatient (OUT) | payer BC, SELFPAY ==
--- OUTSIDE RECORDS SUMMARY | 2024-10-09 09:31 | XMS_ITS | CCD ---
Author Organization [facility] CliniSyhi Care Team Providers Care Press Box Custodian Name Role Phone DR AKASH MARTINEZ Admitting [...] Unavailable Primary Care Provider Unavailmarly Maldonado MD, Andponcho Simmons Attending Unavailable Erica POLK, Andrius Iris Attending Unavailable Erica POLK, Andrius Iris Attending Unavailable Erica POLK, Andrius Iris Attending Unavailable Erica POLK, Andrius Simmons Attending Unavailable Alon Weber MD Primary Care Provider [phone] LEWIS SEWELL Attending Unavailable FLYNN ARCHIBALD Attending Unavailable MY SINGH Attending Unavailable JAMAR AUSTIN Attending Unavailable JAMAR AUSTIN Referring Unavailable Allergies Allergy Classification Reported Allergen(s) Allergy Type Date of Onset Reaction(s) Facility (2 sources) HYDROcodone Drug Allergy 5 [facility] (2 sources) oxyCODONE Drug Allergy 5 [facility] (2 sources) Penicillins Drug allergy (disorder) 5 [facility] (4 sources) Acetaminophen / HYDROcodone Drug Allergy 4 Unknown [facility] (4 sources) HYDROcodone Drug Allergy 4 Hives [facility] Work Phone: (3 sources) oxyCODONE Drug Allergy 4 Hives [facility] (13 sources) Penicillin G Drug Allergy 4 [facility] (13 sources) Penicillin G sodium Allergy to substance 4 Rash [facility] (13 sources) Penicillins Drug Allergy 4 Hives [facility] (13 sources) Sulfamethoxazole / Trimethoprim Drug Allergy 4 Rash [facility] (13 sources) Sulfonamides (Antibiotic) Drug Allergy 4 [facility] Medications Current Medications Medication Drug Class(es) Dates Sig (Normalized) Sig (Original) ARIPiprazole 5 mg oral tablet (9 sources) Atypical Antipsychotic ARIPiprazole (Abilify) 5 MG tablet 1 (one) time each day at the same time Active busPIRone hydrochloride 15 mg oral tablet (10 sources) busPIRone (Buspa r) 15 MG tablet every 12 (twelve) hours Active drospirenone 3 mg / ethinyl estradiol 0.03 mg oral tablet (13 sources) Progestin, Estrogen Start: 03-24-2024 drospirenone-ethin yl estradiol (Loreto, Ocella) 3-0.03 MG tablet Indications: Uses control TAKE 1 TABLET BY MOUTH EVERY DAY IN THE MORNING 84 tablet 3 03/24/2024 Active Start: 04-24-2023 End: 04-23-2024 drospirenone-ethinyl estradi ol (Loreto, Ocella) 3-0.03 MG tablet Indications: Uses control Take 1 tablet by mouth in the morning. 360 tablet 04/24/2023 04/23/2024 Active Ethinyl Estradiol / Ferrous fumarate / Norethindrone (9 sources) Estrogen take 1 tablet by mouth once daily norethindrone-ethinyl estradiol-iron (Lo Loestrin) 1 MG-10 MCG / 10 MCG tablet Take 1 tablet by mouth Daily Active hydrOXYzine pamoate 50 mg oral capsule (10 sources) Antihistamine hydrOXYzine pamo ate (Vistaril) 50 MG capsule Active hyoscyamine sulfate 0.125 mg sublingual tablet (9 sources) hyoscyamine (Lev sin) 0.125 MG SL tablet DISSOLVE 1 TABLET UNDER TONGUE 4 TIMES DAILY NEEDED Active ibuprofen 800 mg oral tablet (10 sources) Nonsteroidal Anti-inflammatory Drug take 1 tablet by mouth every eight hours as needed ibuprofen 800 MG tablet Take 1 tablet by mouth every 8 (eight) hours if needed Active lamoTRIgine 25 mg oral tablet (9 sources) Mood Stabilizer, Anti-epileptic Agent lamoTRIgine (LaMICta l) 25 MG tablet Active 24 hr metFORMIN hydrochloride 500 mg extended release oral tablet (6 sources) Biguanide Start: 2023 take 1 tablet by mouth every twenty-four hours at mealtime metFORMIN XR (Glucophage-XR) 500 MG 24 hr tablet Indications: Hormone imbalance , Insulin resistance Take 1 tablet (500 mg) by mouth in the evening. Take with meals Do not crush, chew, or split. 30 tablet 11 03/19/2024 Active ondansetron 4 mg disintegrating oral tablet (9 sources) Serotonin-3 Receptor Antagonist Start: 2023 ondansetron ODT (Zofran-ODT) 4 MG disintegrating tablet every 8 (eight) hours 02/03/2024 Active prazosin 1 mg oral capsule (9 sources) alpha-Adrenergic Basilio prazosin (Minipress) 1 MG capsule 1 (one) time each day at the same time Active traZODone hydrochloride 100 mg oral tablet (9 sources) Serotonin Reuptake Inhibitor traZODone (Desyrel) 100 MG tablet 1 (one) time each day at the same time Active valACYclovir 500 mg oral tablet (13 sources) Herpesvirus Nucleoside Analog DNA Polymerase Inhibitor, Herpes Simplex Virus Nucleoside Analog DNA Polymerase Inhibitor, Herpes Zoster Virus Nucleoside Analog DNA Polymerase Inhibitor Start: 2023 End: 2024 take 1 tablet by mouth once daily valACYclovir (Valtrex) 500 MG tablet Indications: Herpesviral vesicular dermatitis Take 1 tablet daily, by mouth, 30 days 30 tablet 11 09/17/2024 Active Start: 11-19-2023 End: 03-03-2024 take 1 tablet by mouth once daily valACYclovir (Valtrex) 500 MG tablet Indications: Herpesviral vesicular dermatitis Take 1 tablet daily, by mouth, 30 days 30 tablet 11 11/19/2023 03/03/2024 Discontinued Start: 08-08-2023 take 1 tablet by dat [...] 30 days 30 tablet 11 08/08/2023 Active 24 hr venlafaxine 37.5 mg extended release oral tablet (9 sources) Serotonin and Norepinephrine Reuptake Inhibitor take 1 tablet by mouth once daily venlafaxine XR (Effexor XR) 37.5 MG 24 hr tablet Take 1 tablet by mouth Daily Active Problems Active Problems Problem Classification Problem Date Documented Date Episodic/Chronic Administrative/social admission (2 sources) Patient encounter status; Translations: [Dietary counseling and surveillance] 10-06-2024 Episodic Nutritional deficiencies (2 sources) Vitamin D deficiency; Translations: [Vitamin D deficiency, unspecified] 10-06-2024 Chronic Other endocrine disorders (2 sources) Polycystic ovary syndrome; Translations: [Polycystic ovarian syndrome] 03-03-2024 Chronic Other nutritional; endocrine; and metabolic disorders (2 sources) Weight increased; Translations: [Abnormal weight gain] 10-06-2024 Episodic Other skin disorders (2 sources) Loss of hair; Translations: [Nonscarring hair loss, unspecified] 10-06-2024 Episodic Spondylosis; intervertebral disc disorders; other back problems [...] BACK PAIN, UNSPECIFIED] Onset: 08-03-2021 Viral infection (4 sources) Herpesviral vesicular dermatitis; Translations: [Herpesviral vesicular dermatitis] 08-08-2023 Episodic Past or Other Problems Problem Classification Problem Date Documented Da te Episodic/Chronic Abdominal pain (4 sources) Unspecified abdominal pain; Translations: [UNSPECIFIED ABDOMINAL PAIN] Onset: 07-18-2021 Episodic Miscellaneous mental health disorders (2 sources) Rolle; Translations: [Other symptoms and signs involving emotional state] 03-03-2024 Episodic Other aftercare (1 source) Other senior living (current) drug therapy; Translations: [[facility] CUR[facility]ERAPY] Onset: 09-05-2021 Episodic Other endocrine disorders (2 sources) Disorder of endocrine system; Translations: [Endocrine disorder, unspecified] 03-03-2024 Episodic Other nutritional; endocrine; and metabolic disorders (2 sources) Weight gain; Translations: [Abnormal weight gain] 03-03-2024 Episodic Other upper respiratory infections (1 source) Acute upper respiratory infection, unspecified; Translations: [ACUTE UP RESPIRATORY INFECTION UNS] Onset: 09-05-2021 Episodic Residual codes; unclassified (2 sources) Flushing; Translations: [Flushing] 03-03-2024 Episodic Unclassified (1 source) COUGH, UNSPECIFIED; Translations: [COUGH, UNSPECIFIED] Onset: 09-03-2021 Results Test Name Value Interpretation Reference Range Facility ALL CBC WITH AUTO DIFFon BASOPHILS ABSOLUTE AUTO 0.1 [facility] Basophils/100 WBC (Bld) 1.2 % 0.2 - 2.0 % [facility] Eosinophils/100 WBC (Bld) 2.7 % 0.9 - 7.0 % [facility] Erythrocyte distribution width (RBC) [Ratio] 11.9 % 11.0 - 15.0 % [facility] Hematocrit (Bld) [Volume fraction] 44.5 % 36.0 - 48.0 % [facility] Hemoglobin (Bld) [Mass/Vol] 15.0 g/dL 12.0 - 16.0 g/dL [facility] IMMATURE [facility]ANULOCYTES ABS [facility] Immature granulocytes/100 WBC (Bld) 0.2 % 0.0 - 0.5 % [facility] LYMPHOCYTES ABSOLUTE AUTO 2.4 [facility] Lymphocytes/100 WBC (Bld) 39.7 % 20.5 - 60.0 % [facility] MCH (RBC) [Entitic mass] 31.3 pg 26.7 - 34.0 pg [facility] MCHC (RBC) [Mass/Vol] 33.7 g/dL 29.9 - 35.2 g/dL [facility] MCV (RBC) [Entitic vol] 92.7 fL 81.0 - 99.0 fL [facility] MONOCYTES ABSOLUTE AUTO 0.3 [facility] Monocytes/100 WBC (Bld) 5.2 % 1.7 - 12.0 % [facility] NEUTROPHILS ABSOLUTE AUTO 3.1 [facility] Neutrophils/100 WBC (Bld) 51.0 % 43.0 - 75.0 % [facility] Platelet mean volume (Bld) [Entitic vol] 10.4 fL 9.5 - 13.5 fL [facility] TBH EO # 0.2 [facility] TB PLT 313 [facility] RBC 4.80 [facility] WBC 6.0 [facility] Covid-19 PCR ([facility])on 08-22 SARS-CoV-2 (COVID-19) RNA MARY+probe Ql (Unsp spec) Not detected Normal NOT DETECTED [facility] Comment on above: Result Comment: This test is not yet approved or cleared by the [place] FDA. When there are no FDA-approved or cleared tests available, and other criteria are met, FDA can make tests available under an emergency access mechanism called an Emergency Use Authorization (EUA). The EUA for this test is supported by the [place] of Health and Human Service's (HHS's) declaration [...] consistent with SARS-CoV-2. Performed By: #### [facility] #### [facility] [address] [place] [address] Dr. Karlos Augustin GROUP A STREP CULTUREon 08-22 S. pyogenes Ag Ql (Unsp spec) Culture Observations: NEGATIVE FOR GROUP A STREPTOCOCCUS. Normal [facility] Comment on above: Performed By: #### S ДМИТРИЙ GRASTCX #### [facility] [address] [place] [address] Dr. Karlos Augustin INFLUENZA A AND B AGon 09-03 INFLUANEGH SEE BELOW Normal [facility] Comment on above: Result Comment: Nega tive for Flu A protein angiten. Infection due to Flu A cannot be ruled out. Flu A angiten in the sample may be below the detection limit of the test. Performed By: #### I NFLUAB #### [facility] [address] [place] [address] Dr. Karlos Augustin INFLUBNEG SEE BELOW Normal [facility] Comment on above: Result Comment: Nega tive for Flu B protein antigen. Infection due to Flu B cannot be ruled out. Flu B antigen in the sample may be below the detection limit of the test. Performed By: #### I NFLUAB #### [facility] [address] [place] [address] Dr. Karlos Augustin INFLUENZA A AG Negative Normal NEGATIVE SEE COMMENT [facility] Comment on above: Performed By: #### I NFLUAB #### [facility] [address] [place] [address] Dr. Karlos Augustin INFLUENZA B AG Negative Normal NEGATIVE SEE COMMENT [facility] Comment on above: Performed By: #### I NFLUAB #### [facility] [address] [place] [address] Dr. Karlos Augustin INTERNAL CONTROLS Within Normal Limits Normal Wi thin Normal Limits [facility] Comment on above: Performed By: #### I NFLUAB #### [facility] [address] [place] [address] Dr. Karlos Augustin STREPT SCREENon 09-03-2021 STREP SCREEN A Negative Normal NEGATIVE The [facility] Comment on above: Performed By: #### S ДМИТРИЙ GRASTCX #### [facility] [address] [place] [address] Dr. Karlos Augustin PREG HCG QUALon 08-01-2021 , QUAL Negative Normal NEGATIVE [facility] Comment on above: Performed By: #### P REG #### [facility] [address] [address] [address] Karlos Augustin PREG HCG QUALon 07-04-2021 , QUAL Negative Normal NEGATIVE [facility] Comment on above: Performed By: #### P REG #### [facility] [address] [facility] ABDOMEN AND PELVIS W IV CONTRAST [facility] Department of Radiology [address] [place] [address] Patient Name: RAJIV TOVAR : 1995 Sex: F Age: Race: White Pt. Location: [facility] Patient Status: D Ordered Date: 03/21/2021 4:00:00 PM Completed Date: 04/05/2021 03:49 PM Requesting Provider: ДМИРТИЙ CALLAHAN Attending Provider: ДМИТРИЙ CALLAHAN Report Copy To: ALON WEBER Signs & Symptoms: R10.31 Right lower quadrant pain I10 History: [place] Is patient on meds for HTN or DM? 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 Per [employer] for CPT 29202 Ref#[id number] Med Nec-Passed *SLA Comments: Exam: CT ABDOMEN [...] Electronically signed: Noemy Stanley M.D.. Transcribed by: [email or web address], User Resident: Electronically Signed by: NOEMY STANLEY @ 04/07/2021 01:25 PM Normal [facility] CHEST [address] [facility] 03-21-2021 [facility] CHEST 2 [facility] Department of Radiology [address] [place] [id number] Patient Name: RAJIV TOVAR : 1995 Sex: F Age: Race: White Pt. Location: [facility] Patient Status: D Ordered Date: 03/21/2021 2:25:00 PM Completed Date: 03/21/2021 02:22 PM Requesting Provider: ДМИТРИЙ CALLAHAN Attending Provider: Report Copy To: Signs & Symptoms: R07.81 Pleurodynia I10 History: [place] Comments: right ribs pain Exam: [facility] CHEST 2 VWS [facility] CHEST 2 VWS 03/21/2021 2:22 PM [...] disease Electronically signed: Cyril Olivo. Transcribed by: [email or web address], User Resident: Electronically Signed by: CYRIL OLIVO @ 03/22/2021 02:39 PM Normal The [facility] Comment on above: Order Comment: right ribs pain Coding Summary.on 03-03-2021 Coding Summary. CD:[id number] G h0bWw+PGhlYWQ+YI6FLMX yZ34drZJklA0TR4pXEF2V NJDJDYFFGG6NVV4nzNW0E MxaF1FylaIw WglcvQTtFG21SOx1RGB1g MwjQHhzvO7obODoL6m1By PzUT41hB66WHqtJDPkViQ 3LjZpbjsgbWFy X2ljZuTdfSTuUtw+PHRhY mxlIHdpZHRoPScxMDAlJy IonCayDU7yBe3iHGDkIMP vbGxhcHNlOiBj u2pyEYFcDRyiMK6oaBfnY 5LcsFE0MCRdx5j7Rb57aK I+ZJLhNIP2vFdlJYebb42 5DbLog3jwNWA2 xUUwWEntCOG6J76jl7L5M DAkBPDuUTV5tXG2yZ7wtX vnlkstX1SdjEMxGbK8DQH 1tWFjxF0ryAud ngbmdT2bMdq+X93YUM3QU LRTQB8LCse4L0MoWfvmaU I+NG03VGTgEU38mULbuKD cp0nygQe1DvHd LCGsGYZ4wBgpBMeno7PeE YRfU74uvMFch2E6AIIvgY aebVVmQsBdtDY1qA4jSLi xjyddi7jkuing Hfjcs5wdfb44dZ97S33tR NswWPPnKLU1RUZbDWWxyR fsho1rzW8aTo0+SJsxq4n nw1bmtWw7MxVu DVSzpbNhkVxuXNK6f2BhC o98T6OagIqnd7StCly7he 63wVGud3X0hXC2QUnyZHG hvG1dPUwcSgL5 VTOaZfIylY68rVXvZSczP u6suObumLkgZQ4sDJKeyz flFPHqdG2cECRmrANngYa nXJ8oSNCtpbie n333JcNaHIS3IRCiaOUwO 3EscK6yMqJvCABpHIKgT8 PopJMcAWbhE646HXheVjW 7LZTshjEiP6Ta ILIzkYcoQjO7x8B9Pv0Hr 2GkeydoVVI9VIrtLAC5Zc ElIuBlQwJ3S7IpMsj9HVR nlUdcRK5zO2Ev HLJqklyhbgzbjSN9PIIcX OBloW78sEEaCGunBe5iq8 V0b425NXHdDRRtmI71Kw0 udDogMTBwdCBU dT9hjovtj2mcxgaxDaGgF SAbYKy8PWj5DGWbxQmnBh UxADF9AsJ9JZN2bIPqqY1 nvPcfflrivL5g Oyc+I26pvU0uKXB5TWT0i nhoJUZkiiQlHS40YV89T5 RyPjwvdGFibGU+PGRpdiB kbIkiDW7oByFw g2ekp5VuHZnvW6RoRWAiB GgqQmn8QVLjZGR6iAY3gW 4nTOSqPXpqy3C8mGI8I6H ttvJeuo8ou8sl VZSbXVndC74hxNBcx2I3T SPecCR7BALlvXzeGmTdvV 93Oyc+MEQkiFugp7CuMwd as9lwp3twiAt9 KsKjGZGzueGcaLjgULB8w 9EsBb80Q38aBNuhWOOhBF CdILDhFVZmnRlyce1hrQ4 wIi8+PGNvbCB3 rND2jD5gGNZrTdC9ARdqG 125GaUleVMgLgeho9uyv1 srdKy3QdJtOMZnjwKixIb eCWR7d7YpTy86 L80cDXdlJIEgRYHrFCVsQ SBngNsjix0lbM0yPw6+PC 7oi9tqyt60qN35bTU+PHR jTOI2vYhqQOtp AHQkyF3yIVbwWaG5VFLuY sFpaM00wDGtVZbkAx2wqG slhNgyVN4iYHLwhjljt40 3DkRoa8xaMDOj eFNkZYzlDBL5M01lf8C3B OGmMEFvQCL6sAH9bD1kjO lnbjogbGVmdDsgdmVydGl jVZijRYmdG681 IHRvcDsnPlBhdGllbnQgT fXnAXw9U6ScNkd6HDThxZ eqEL7qbIIpNTriBr4kwTf zpDdeLL0kGDXb tgafa321SvAwi4ilABLnx NDmMVcmAKT6A89gc2Z6LL AuSTXkBAL7rNI9vZ7yeLp nbjogbGVmdDsg xoAscEeqEZasKZfzF352V HRvcDsnPkJpcnRoIERhdG M1OB94FB28tYJkh8Z9dKJ 3G5IkPEYstyok lwjtnPM1MMFxSMOxuE23V f4nhDqeMf6yQJSyIIU0HO AyhCYzZ9BscC5aDtQjREL aBISkF1YyxFXi RGozY932CHnsVzD9VWNee sYnJ5EmFJBksZjcIzY8f4 K8Rn1EN9F5LJ37NQ44qPI jg4H6yJY9V9Qs HKOkrsdwzbxknGZ1LAMuJ JLnvK88Zs8dyDxaNg2pRY IwDKL6NYQaiBEeY5MrgV6 yOiAjMDAwMDAw S4EoaGVeXAdiJ635KLdjY iA8DYMvrvNlF9DoKPWtkZ yqZvI3j5P1Ju6OZTh5PF6 4BC35vAVvd6P4 bNO5S6GiCAYwkgrdexixt KM9XHCyWCEzqR82Ta7ijN hmMd7uEHDbVFI6AADaxHQ hA4ThvK2rHeTa ZZLbSGUhF4OwcMZuCJppY 910PGhvUnZ5ULLmmwLbX4 KmPJQefNuvDfO5y2P9Pr5 ITZSfRM03IPR5 jHQ5HQ78QM93C2JfEtcuv GFibGU+PHRhYmxlIHdpZH RoPScxMDAlJyBzdHlsZT0 yTj8nQTPdWHHd gKbsxBZsUjUod4qdRVVkS GfbWY3zuEtrI7FuvGW7UG Ujw4u0Wc93V20pZ0TlfOZ +CRHzsOU0vBW0 dC7lYeKrYpE0LOpcH607D kYojVVdWyzer4tvx5tdzJ w7HwA0URZvjxQvpIjsJEI 9r2RjJx18E97u IHdpZHRoPSIxNSUiIHZhb Ysxyx1cuH2cJn0+PGNvbC I1uBU0gR3zViJwGhL3MAf wZ782IiLuqXHy Jabux4rjz9dvpNr8JvGtC ISwlxXzfNxnGXL9l5GmHe 95V0MduRcyf9BuSnt4ue0 8sUDfx3S4qIH5 E8YyPFFfkwbwlAAtdHeyL G8eRABczqupESNydE5iYE WhT5q5BiGxMmN8PDxpR4J xgfA8AOYtwOUf QPxqVTI4T06sb4Z1HZMfL JAuJJB1rAQ4qA1ehRotsq ogbGVmdDsgdmVydGljYWw jQCxkA523KQZw gSckVDYbyF4eORVrjTUbx OvsBG3pRWBzuyfnOuRWPT ZMMNAMDUeFJ7P0C7DiXhj 9DYNrmPheYE2t uGWnGHweBy6lcZffaCqpU T5gSGNcztcbFBZlcG6gCD HuhLQpkKaeBO1wQCHggyx kn520EoPsCPW9 FLLrnZEaU3QxhO4dEgCfV SCpAIRbM9RkuGKlIVbxX6 61CUvbGvD5JSDfkoUtE4M sLWFsaWduOiB0 y4C2Hp9iQU6mMv3sZDljB C08EO16ySWqq8W5tZV3M5 YxJYBceuzxlhkgnSN1DNB gHFRiyX18vMGl XNetOz1kj3G4r337XOVhK CXedC13Fw9atOtgLKUwiJ DUdK4pfvtlk1efpjwjYcS cRCYwXJi1OGc2 BGUcyOksSvLlIGC3DdK6J WD9yQFwkB5iaGblwkggwV 9wOyc+MnflALQwliB3K5A qWya0JBFleRdo OA5wjKMvXZshLb8tfCkmf VtrOX1rHLXyatcuQCXdsM 2cLDRwtQNmzWqpJZ8uRDQ yjbdve998JxAg EXR4SRQtoZLwS4WzdQ2bY rWpPEErOGClI0GisUDkWK igN366WEmeKbE0ZDNbzvM dD8JqSRHbcTma KxT5x6L0Bw0PKP2qzMA0K 4UcJxx5XBCtgJjzOJ8cwT OvUIhzOi9idMipnPanBZ5 wNTBpbjtwYWRk jL6iBWFszOVtmDfkMK5xH OMfrqpbx311ReWgSMT0IM NwcRDsO7BnjI3sMoScHHU wFAPyJ2MrnRVp PZxwX740DLcuQmW6FNIoe yCyY3SsJHYshIxeVoF3u2 J7Dw6MhRVqS1MpC3z5C1Q kPjwvdHI+PC90 BKGkPL77rSQrzUKug2osj Hj9ClGvAGCePMV9eVopKL gwx1GkLUJcC53unCCli8Z 6IGNvbGxhcHNl GpGczXE9cW6yNTmbustlh 8bhtgtqRhvej3ujfj57cW 63R78lTJfgBTAxNFNtCFD eILWgmAdlxp2m cI5tCg8+ZWYkoMO1vUY3q C3tQlPsIgB4PBooN486Qv YnuLAyTssyu0rbt6yvtRh 9IjIwJSIgdmFs oBpnPXB9x7OeGn87Q55fV HdpZHRoPSIyMCUiIHZhbG eeyl9teM1dRy6+VS6cc8x ndf54kF67lUP+ MMBxVPA2mUnyQCxxCIUrl G4mRAenVyZ4SSXuNsOzlD 33kFJvZRilZh4olLpdbQg rJZ2fKTXacdqv x328UaJru2giSCHclPJjQ OvjYTR6E02ph6K8LUVdDC PtBJW1nYM7xL6gjQtnwgx gbGVmdDsgdmVy kYzuKXszUUcyT500BTClb EhsSpSmjFEuA7lhizJZTL 1lOjwvdGQ+JERpHCV9dDp dMDeiHGQnpO0m WBOuI5n7OuYpKoE4RZyiU 1HkdkH4HSQurFDkEBQmaF BEaR4dpaudo6nmmidbVlT aXNYxZIc3XMa5 GSYozEsxNkStBXA0HrG1N LJ5tKHvwN2qqGxulfiwtE 9wOyc+RklOOjwvdGQ+PHR iFCN9eXlaXWdc KLDrdF1tAQZbY0z9NpHpW gG9KFzrK2LjhzJ3HOVzyK CeSCGryDINcH2cceiuf6r vcjogIzAwMDAw SAy7DFy2EGLhlErvUiOsS HV5SlE2CRS8kJEkiK7pvW kfufqjzV4xYtj+TVJOOjw vdGQ+PHRkIHN0 dPhzKFbbWSQkuL9jUGHmK 5z3ToXiBiZ9UJggV5Gmtx V4PHJwxVTcNQAdqXDOzD0 pqezgo5pubcll EbIoDJMuLHu0HKa6XGJqu FffQdMcUMT3LdT2EEY3aQ LpuM4kiGzbkzvclF6uAzf +QKQ7NSO8UM60 JL62R4EvUgebrTPvgSD+P HRhYmxlIHdpZHRoPScxMD AbFoMyyAexJO2gWp9rYZH yLWNvbGxhcHNl OiBj (more content not included)... Normal [facility] Auto Diffon 02-28-2021 Basophils/100 WBC (Bld) 0.4 % Normal 0.0-2.0 [facility] Comment on above: Order Comment: Order Added by Discern Expert. Performed By: #### 2 [id number], [id number], [id number], [id number], [id number], 9866822, 3460338, [id number], [id number] ####[address] [place] [address] Basophils/Leukocytes Auto (Bld) [Pure # fraction] 0.0 E9/L Normal 0.0-0.2 [facility] Comment on above: Order Comment: Order Added by Discern Expert. Performed By: #### 2 [id number], [id number], [id number], [id number], [id number], 22609142, 8381263, 0483353, [id number], [id number] ####[address] [place] [address] Eosinophils/100 WBC (Bld) 0.6 % Normal 0.0-8.0 [facility] Comment on above: Order Comment: Order Added by Discern Expert. Performed By: #### 2 [id number], [id number], [id number], [id number], [id number], [id number], 5492319, 5738354, 5622774, [id number] ####[address] [place] [address] Eosinophils/Leukocyt es Auto (Bld) [Pure # fraction] 0.0 E9/L Normal 0.0-0.5 [facility] Comment on above: Order Comment: Order Added by Discern Expert. Performed By: #### 2 [id number], [id number], [id number], [id number], 24337515, 16863596, 3933400, 0022974, [id number], [id number] ####[address] [place] [address] Lymphocytes/100 WBC (Bld) 7.9 % Low 14.0-50.0 [facility] Comment on above: Order Comment: Order Added by Discern Expert. Performed By: #### 2 304854, 0250855, 88847872, 37844072, 40490376, 09297090, 3830598, 8464056, 3284623, 3042834 ####[address] [place] [address] Lymphocytes/Leukocyt es Auto (Bld) [Pure # fraction] 0.4 E9/L Low 1.0-4.0 [facility] Comment on above: Order Comment: Order Added by Discern Expert. Performed By: #### 2 881303, 1673552, 89192315, 99666869, 30099532, 48008749, 7729788, 8244050, 2733654, 8592708 ####[facility] [address] [place] [address] Monocytes/100 WBC (Bld) 5.5 % Normal 4.0-14.0 [facility] Comment on above: Order Comment: Order Added by Discern Expert. Performed By: #### 2 017347, 1183851, 97938741, 99406007, 06689062, 54258997, 4734711, 2136698, 4719571, 0634964 ####[address] [address] Monocytes/Leukocytes Auto (Bld) [Pure # fraction] 0.3 E9/L Normal 0.2-1.0 [facility] Comment on above: Order Comment: Order Added by Discern Expert. Performed By: #### 2 860825, 9664388, 87648584, 50699838, 17538677, 25920642, 6610272, 0438384, 6346145, 1630836 ####[address] [place] [address] Neutrophils/100 WBC (Bld) 85.6 % High 36.0-75.0 [facility] Comment on above: Order Comment: Order Added by Discern Expert. Performed By: #### 2 338228, 0351351, 64386392, 58150917, 26600272, 49581450, 5978075, 9003691, 3780658, 8557577 ####[address] [place] [address] Neutrophils/Leukocyt es Auto (Bld) [Pure # fraction] 4.5 E9/L Normal 2.0-7.5 [facility] Comment on above: Order Comment: Order Added by Discern Expert. Performed By: #### 2 709034, 0832142, 77254140, 57693693, 61354355, 45853215, 8461169, 0950543, 0425812, 0978734 ####[facility] [address] [place] [address] B hCG Qualon 02-28-2021 Beta hCG Ql Negative Normal [facility] Comment on above: Performed By: #### 2 932656, 7000296, 47769625, 43159103, 08388932, 50716357, 8857892, 9947043, 1205623, 2629667 ####[facility] [address] [place] [address] BMPon 02-28-2021 Creatinine [Mass/Vol] 0.7 mg/dL Normal 0.5-1.3 [facility] Comment on above: Performed By: #### 2 169683, 5336920, 65273200, 03091012, 22687935, 97008506, 0487308, 2702687, 9569036, 2325345 ####[facility] [address] [place] [address] Urea nitrogen [Mass/Vol] 9 mg/dL Normal 5-21 [facility] Comment on above: Performed By: #### 2 326067, 1255853, 83996842, 67179269, 31780939, 76659495, 1000052, 7970450, 0859041, 5507160 ####[facility] [address] [place] [address] Urea nitrogen/Creatinine [Mass ratio] 13 No Units Normal 10-20 [facility] Comment on above: Performed By: #### 2 929663, 7567257, 34520153, 02945604, 92769579, 95507484, 1583080, 6712599, 0457679, 9605043 ####[facility] [address] [place] [address] Anion gap [Moles/Vol] 14 mmol/L Normal 6-16 [facility] Comment on above: Performed By: #### 2 676143, 7202997, 13984845, 66514293, 13676031, 13095717, 4631625, 9118462, 9011626, 9532942 ####[facility] [address] [place] [address] Calcium [Mass/Vol] 8.5 mg/dL Low 8.9-11.1 [facility] Comment on above: Performed By: #### 2 308906, 7171459, 84655218, 06640034, 30583075, 83050648, 0373210, 1640811, 8526662, 7315935 ####[facility] [address] [place] [address] Chloride [Moles/Vol] 102 mmol/L Normal 101-111 [facility] Comment on above: Performed By: #### 2 006673, 5967026, 58851004, 30550776, 51597265, 79789077, 2861293, 9581667, 0870236, 8167228 ####[facility] [address] [place] [address] CO2 [Moles/Vol] 21 mmol/L Normal 21-[address] [facility] Comment on above: Performed By: #### 2 229012, 1319240, 24747292, 50910470, 73417960, 42912527, 6986740, 8335721, 3939817, 2480534 ####[facility] [address] [place] [address] Glucose [Mass/Vol] 95 mg/dL Normal 55-199 [facility] Comment on above: Result Comment: If t his glucose result represents a fasting glucose, interpretation should refer to the following reference range: 55-99 mg/dL Performed By: #### 2 152486, 2301129, 90219424, 93413885, 33743345, 60842308, 9836156, 9120252, 7704656, 5950804 ####[facility] [address] [place] [address] Potassium [Moles/Vol] 3.6 mmol/L Normal 3.5-5.3 [facility] Comment on above: Performed By: #### 2 339091, 5738833, 58388537, 17235975, 39328357, 31844174, 2321195, 9447647, 3900264, 9831513 ####[facility] [address] [place] [address] Sodium [Moles/Vol] 133 mmol/L Low 135-145 [facility] Comment on above: Performed By: #### 2 111930, 2932608, 12957374, 13720371, 12763102, 08506902, 3133876, 6262290, 3154501, 3485541 ####[facility] [address] [place] [address] CBC w/ Auto Diffon 1 Erythrocyte distribution width (RBC) [Ratio] 12.4 % Normal 10.9-14.2 [facility] Comment on above: Performed By: #### 2 281992, 8063020, 87072049, 91898620, 71363464, 87223927, 8326168, 0855835, 2917685, 9476087 ####[address] [place] [address] Hematocrit (Bld) [Volume fraction] 38.1 % Normal 34.0-46.0 [facility] Comment on above: Performed By: #### 2 085326, 2731592, 03929038, 91495072, 91577665, 62756794, 2982176, 7425284, 8404564, 8610870 ####[facility] [address] [place] [address] Hemoglobin (Bld) [Mass/Vol] 13.3 g/dL Normal 12.0-16.0 [facility] Comment on above: Performed By: #### 2 230221, 6797999, 39698180, 56407932, 45910049, 31815687, 9531533, 7364890, 1145671, 4026682 ####[facility] [address] [place] [address] MCH (RBC) [Entitic mass] 31.7 pg Normal 27.0-34.0 [facility] Comment on above: Performed By: #### 2 393139, 3387858, 43989234, 54500423, 46227102, 97106605, 1418425, 7381750, 4266546, 5120900 ####[facility] [address] [place] [address] MCHC (RBC) [Mass/Vol] 35.0 g/dL Normal 31.4-36.0 [facility] Comment on above: Performed By: #### 2 819854, 3509774, 99772951, 54436083, 83867553, 12406779, 5009523, 9527171, 0561346, 9069898 ####[facility] [address] [place] [address] MCV (RBC) [Entitic vol] 90.8 fL Normal 80.0-100.0 [facility] Comment on above: Performed By: #### 2 879469, 5027182, 20629978, 80833129, 69628929, 19823744, 4887956, 5952426, 4548795, 0115582 ####[facility] [address] [place] [address] Platelet mean volume (Bld) [Entitic vol] 10.0 fL Normal 6.4-10.8 [facility] Comment on above: Performed By: #### 2 022843, 3038217, 00692696, 30142586, 34884052, 16985258, 4185006, 7787255, 0873188, 2715320 ####[facility] [address] [place] [address] Platelets (Bld) [#/Vol] 144.0 E9/L Low 150.0-500.0 [facility] Comment on above: Performed By: #### 2 497095, 1342016, 49373735, 76583513, 40291037, 05275876, 4679576, 9083828, 0989308, 2145530 ####[facility] [address] [place] [address] RBC (Bld) [#/Vol] 4.2 E12/L Low 4.3-5.9 [facility] Comment on above: Performed By: #### 2 908487, 6148072, 05439608, 52288776, 87706201, 03636411, 2841320, 3119561, 0744064, 5115322 ####[facility] [address] [place] [address] WBC corrected for nucl RBC Auto (Bld) [#/Vol] 5.3 E9/L Normal 4.0-11.0 [facility] Comment on above: Performed By: #### 2 777474, 7402602, 52175721, 88759477, 38232266, 80688523, 4311603, 3167575, 8572056, 0779046 ####[address] [place] [address] COVID-19 (MC)on 02-28-2021 SARS-CoV-2 (COVID-19) RNA MARY+probe Ql (Unsp spec) Not detected Normal Not Detected [facility] Comment on above: Result Comment: This test result should be correlated with clinical presentations and medical history by a healthcare provider to determine its clinical significance. This assay was performed by a reverse transcriptase real-time polymerase chain reaction (rt PCR) method on the [employer] system. This test has been authorized only [...] or revoked sooner. Performed By: #### 2 [id number] #### [facility] [address] [place] [address] SARS-CoV-2 (COVID-19) RNA MARY+probe Ql (Unsp spec) Pass Normal Pass [facility] Comment on above: Performed By: #### 2 [id number] #### [facility] [address] [place] [address] Specimen source Nom (Unsp spec) Nasal Normal [facility] Comment on above: Performed By: #### 2 [id number] #### [facility] [address] [place] [address] Employed in Healthcare NO Normal [facility] Comment on above: Performed By: #### 2 [id number] #### [facility] [address] [place] [address] First Test Unknown Normal [facility] Comment on above: Performed By: #### 2 [id number] #### [facility] [address] [place] [address] Hospitalized? NO Normal [facility] Comment on above: Performed By: #### 2 [id number] #### [facility] [address] [place] [address] ICU NO Normal [facility] Comment on above: Performed By: #### 2 [id number] #### [facility] [address] [place] [address] ? NO Normal [facility] Comment on above: Performed By: #### 2 [id number] #### [facility] [address] [place] [address] Resides in a Congregate Care Setting NO Normal [facility] Comment on above: Performed By: #### 2 [id number] #### [facility] [address] [place] [address] Symptomatic as defined by CDC YES Normal [facility] Comment on above: Performed By: #### 2 [id number] #### [facility] [address] [place] [address] Consent for Treatmenton Consent for Treatment [id number]#1 .00CD:127 Normal [facility] D-Dimeron 02-28-2021 Fibrin D-dimer FEU (PPP) [Mass/Vol] 388 CD:[id number] Normal 215-500 [facility] Comment on above: Result Comment: This assay [...] infections Liver cirrhosis Performed By: #### 2 560910, 1127330, 80986684, 36428045, 23388672, 48587965, 8607501, 5672806, 5868146, 3650270 ####[facility] [address] [place] [address] Discharge Instructionson Discharge Instructions [id number]# 1.00CD:127 Normal [facility] ED Clinical Summaryon 2020 ED Clinical Summary [address] [address] ED Clinical Summary Person Information Name: RAJIV TOVAR/[place] Age: 25 Years : 1995 Sex: Female Language: Guatemalan PCP: Alon Weber MD Marital Status: Single [...] 02/28/2021 11:17:01 02/28/2021 11:17:01 02/28/2021 11:17:01 ADDRESS: [address] [place] [id number] PHYS DOC NOTES: MEDICAL INFORMATION: Prescriptions Given: [...] Follow up: With: Address: When: Alon Weber [address] [facility], [place] [address] Business (1) In 3 days DIAGNOSIS: Chest pain; Viral URI Normal [facility] ED Note-Physicianon 02-29-20 ED Note-Physician Basic Information [...] hCG Qual CBC w/ Auto Diff COVID-19 ([facility]) D-Dimer ECG 12 Lead Adult ED Cardiac [...] Information Alon Gus In 3 days [address] [facility] [place] [address] [place] [address]- Business (1) Additional Instructions: Patient Education COVID-19: [...] Use, 01/30 (more content not included)... Normal [facility] Comment on above: Result Comment: Elec tronically Signed By: Laureano Phillip DO\.br\Date and Time Signed: 02/28/21 11:03 EDT ED Patient Summaryon 021 ED Patient Summary [place] [id number] Patient Discharge Instructions Person Information Name: RAJIV TOVAR Age: 25 Years Arrival Date: 02/28/2021 09:10:34 Discharge Diagnosis: Chest pain; Viral URI Primary Care Physician: Alon Weber MD Provider Information Primary Provider: Laureano Phillip DO [employer] Utility Worker:None The exam and treatment you received in the Emergency Department were for an urgent problem and are not intended as complete care. It is important that you follow up with a doctor, nurse practitioner, or physician?s printing bindery assistant for ongoing care. If your symptoms [...] Follow-up Instructions: With: Address: When: Alon Gus [address] [place] [address], [facility] [place] [address] Business (1) In 3 days [...] opioids can be used to help relieve abwziovo-vu-wyeleb pain and are often prescribed following a [...] be struggling with addiction, tell your health grounds caretaker and ask for guidance or (more content not included)... Normal [facility] Hep Func Panelon 02-28-2021 ALP [Catalytic activity/Vol] 52 Int._Unit/L Normal 21-98 [facility] Comment on above: Performed By: #### 2 270304, 0078491, 86764190, 10190221, 90704052, 86300575, 1735511, 4639239, 1275086, 5395474 ####[facility] [address] [place] [address] Albumin [Mass/Vol] 4.2 g/dL Normal 3.3-5.0 [facility] Comment on above: Performed By: #### 2 977316, 8200391, 80291939, 04479746, 76504000, 71561806, 5898274, 6203816, 4632932, 3321833 ####[facility] [address] [place] [address] Albumin/Globulin (S) [Mass conc ratio] 1.4 Normal 1.1-2.2 [facility] Comment on above: Performed By: #### 2 596259, 9015071, 89732820, 24702320, 22940925, 88964141, 1189273, 9739451, 1492563, 3184400 ####[facility] [address] [place] [address] ALT No additional P-5'-P [Catalytic activity/Vol] 48 Int._Unit/L High 6-46 [facility] Comment on above: Performed By: #### 2 681727, 0076033, 02530754, 36101562, 81615701, 17541414, 5565212, 7487541, 7140426, 5559128 ####[address] [place] [address] AST [Catalytic activity/Vol] 39 Int._Unit/L Normal 5-43 [facility] Comment on above: Performed By: #### 2 928066, 4052468, 34035229, 34181572, 61832929, 40787037, 5188939, 8850075, 7610886, 3109571 ####[address] [address] Bilirubin [Mass/Vol] 1.2 mg/dL High 0.0-1.1 [facility] Comment on above: Performed By: #### 2 430464, 2238901, 41419801, 04791805, 07527484, 43115243, 5047113, 8623647, 2680864, 5090744 ####[address] [place] [address] Bilirubin.direct [Mass/Vol] 0.2 mg/dL Normal 0.1-0.4 [facility] Comment on above: Performed By: #### 2 680886, 9687479, 64932927, 21799217, 05099692, 69677820, 0818431, 3074091, 6459219, 7514645 ####[address] [place] [address] Bilirubin.indirect [Mass or moles/Vol] 1.0 mg/dL High 0.1-0.9 [facility] Comment on above: Performed By: #### 2 979757, 8156075, 14530172, 76834051, 23043119, 59506614, 1282356, 2407668, 2897248, 0010295 ####[facility] [address] [place] [address] Globulin (S) [Mass/Vol] 2.9 g/dL Normal 1.4-4.0 [facility] Comment on above: Performed By: #### 2 193488, 9084020, 43801943, 19559849, 70007539, 46978776, 8294094, 3744912, 4339463, 8886306 ####[facility] [address] [place] [address] Protein [Mass/Vol] 7.1 g/dL Normal 6.0-7.8 [facility] Comment on above: Performed By: #### 2 320599, 3928652, 14082548, 22301739, 29197541, 63540081, 4088785, 8158323, 5164678, 8974696 ####[facility] [address] [place] [address] Lipase Levelon 02-28-2021 Lipase [Catalytic activity/Vol] 33 U/L Normal 13-58 [facility] Comment on above: Performed By: #### 2 860452, 4556476, 73417813, 25391205, 47233295, 10127314, 0155194, 5697680, 6126755, 0451588 ####[facility] [address] [place] [address] PT & PTTon 02-28-2021 aPTT Coag (PPP) [Time] 31.5 second(s) Normal 25.1-36.5 [facility] Comment on above: Result Comment: Hepa rin therapeutic range (represented by Anti-Factor Xa activity of 0.2 - 0.4 U/mL) corresponds to PTT of 56.6 - 109.0 sec. Performed By: #### 2 210136, 4708138, 00708355, 02406132, 71472271, 15471615, 6595017, 7744100, 9653962, 1894890 ####[facility] [address] [place] [address] INR Coag (PPP) [Relative time] 1.1 {INR} Invalid Interpretation Code [facility] Comment on above: Result Comment: INR results are specifically intended to assess patients stabilized on long-term Anticoagulation therapy suggested INR?s ?Less Intensive Anticoagulation? 2.0 ? 3.0 Conventional Range 3.0 ? 4.5 Performed By: #### 2 723343, 7586542, 96381699, 57792397, 00705577, 56886818, 6421192, 5730733, 4277015, 1097713 ####[facility] [address] [place] [address] PT Coag (PPP) [Time] 13.1 second(s) High 10.2-12.9 [facility] Comment on above: Performed By: #### 2 327745, 1094346, 96739660, 16709041, 99291448, 93870720, 4815192, 2060894, 6217569, 9530590 ####[facility] [address] [place] [address] Prescriptions/Work Noteson 0 02-28-2021 Prescriptions/Work Notes [id number]# 1.00CD:127 Normal [facility] Troponin 0 Hr.on 02-28-2021 Troponin I.cardiac [Mass/Vol] ng/mL Low 10.10-27.10 [facility] Comment on above: Result Comment: The 95% CI (Confidence Interval) PPV (Positive Predictive Value) for myocardial infarction in females is 38 pg/mL, in males 51 pg/mL. The results should be used in conjunction with clinical conditions of myocardial infarction. (Access High Sensitivity Troponin I Instructions For Use, [place], January 2018) Performed By: #### 2 591979, 4404961, 57908079, 36432839, 03338616, 53201300, 7577454, 1889174, 5516404, 0805108 ####[facility] [address] [place] [address] XR Chest Single Viewon 02-28 XR Chest [...] Granger MD Transcribed by: OLGA Technologist: YONG Kpalan [facility] eGFRon 02-28-2021 GFR/1.73 sq M.predicted among blacks MDRD (S/P/Bld) [Vol rate/Area] mL/min/{1.73_m2} Normal >=59 [facility] Comment on above: Order Comment: Order added by Discern Expert. Result Comment: eGFR is race adjusted. AA=. Performed By: #### 2 557555, 8273363, 26918043, 72726894, 88958500, 81786097, 7507837, 8702738, 9270965, 2274022 ####[facility] [address] [place] [address] GFR/1.73 sq M.predicted among non-blacks MDRD (S/P/Bld) [Vol rate/Area] mL/min/{1.73_m2} Normal >=59 [facility] Comment on above: Order Comment: Order added by Discern Expert. Result Comment: Ornamental Iron Worker bib kidney disease could be indicated at eGFR's of less than 60 mL/min/1.73m2. Kidney failure is indicated at less than 15 mL/min/1.73m2. Performed By: #### 2 898533, 5795326, 05350346, 09859605, 68988445, 73989315, 3315300, 8124646, 4260844, 0071189 ####[facility] [address] [place] [address] C Urineon 02-01-2021 Bacteria identified Cx Nom [...] Locations R1: This test was performed at: [facility], [address] [place] [address], [address]- , , Normal [facility] Comment on above: Performed By: #### 1 5508247, 3890970 ####[facility] [address] [place] [address] Coding Summary.on 02-01-2021 Coding Summary. CD:[id number]:[id number] G h0bWw+PGhlYWQ+KL8ETCA bG15drZMzaN0DZ8xKLE5D TGSLSNNKFZ4OBE3baSS7F AhxN4MbfgRr ZtuiwSRdFQ70SId4TPX6s OiyBWrpjR7zhHFgB5p6St YsMS54mO63AVjuVNRcYvZ 3LjZpbjsgbWFy Y9pjIzObgDKxFmo+PHRhY mxlIHdpZHRoPScxMDAlJy YkmDwcBL0lWp6fMZGsCAY vbGxhcHNlOiBj o3jjWSIvZLctAJ2xeNiwJ 5UyoUR1HQOrk1s2Xu84tV I+DKKgYJZ0nXxdBVdzj27 1BmGgv4mvBCH3 eSQvXVwjWBY7K01uc3I4K WYvUYVhOSL1jKS1qN7daG gpeogzK8CxdHMyTkA4JAH 3gXDhuY9tdFtu ztmotP0iMdb+T32TZG9CS XYCVN7TNva6H4QjOvglxW I+KA89WLRtJY25eWCimOH fv7uxgCx7PuAg FLEzULM4vXirAKxof4JkG TUlQ26vfGWkw0D9NRRyaH mxqPNzIwBryAR0wJ0iYIm wudqzn3alelzp Pphyo3udmx89jB45M65mJ UfvMIKzFDJ6VNJlMBGigP oetw2feY4hEz6+BCsjk8d jf6cinKk1VaBa AFFzjqXgzCtuEIJ2d6FlV c08T0RqaAgwd3UdUzt8qx 19zQWuc9Y0iBH3GMwjLGS xrS9eVIrbViZ2 YIPcFdLqtN48eFBgTBjdL w3xkUlsjYxkBJ0pSQIaup icGTSkoS1oJEBzfUSngFi xGS2hVKLynsaf m681JlBuGUN9SYHkwIDyR 0XvkH2tGjZsXPAgKVYpS6 CveCYrGXvpC893VLrhDeI 2RFItgfFmY4Uo WPYutGewAqG2v8H4Ip4Pe 1WkmqbkSLX9BSjzMMD4Bd GsKdMbHpI0M7NcBso5VZS tiRpmGL1hU4Rj JNJmwblyhmqinEX5TCYoN QLdtT08tNBpGEltZd8sw3 P0f733RUMtOCEsbX36Ga9 udDogMTBwdCBU aM4sgkwbg8miepjkWjZgJ VCbEJn9LXc1LEFfiTkuVi OqYZQ4RfI2MAX8sHRfdD1 fgCtvbshhpF5a Oyc+D76ukW4mKKP0RCJ9i kdvXKWocePfUI51RT43I8 RyPjwvdGFibGU+PGRpdiB dbTsyUK9vVnGl t5irx3DcIEpsK2XiVKFdH MgzVaf7JKWwYPY0wKG7gN 7bOOZzSEjsn9J0fYA0C5I ajqNnqh4qe4qk WXPgFJghD41xyFBkq9L6M LXkkDG3YBNmzMjeAzOtzA 93Oyc+RZQzeIvit5IrDll yn6rpw8vvqQp8 GdJwAGYxrdMhwXuwWTI5q 7DiBn34W81pCIyyEKGuVO KmRVZnXXQudTizis2qaZ1 wIi8+PGNvbCB3 cAV0lF9eFXZxWjK2UStgE 335RvGsuTMoZwwut1tdf0 ephBo3XiAnWYOzadRhoNj xMOR7s3XkZb98 N59sPOogCFTyYOWmRHKuG IGrtNbfev7ooG4lCb9+PC 2bq0zlzv00xH27sWO+PHR oFAT9iHthBXbn LONfsB8bKYuiFeO9WNSbR dVmyL78cFRnWQfrZz1baK inhQylOU4tOAKgnjyic83 9YeQir2uqKJQh tBTjJGvuSMA6B65vc4E6G FYcEALzBTK0hGI3nP5wtL lnbjogbGVmdDsgdmVydGl tNHznTBhsJ885 IHRvcDsnPlBhdGllbnQgT bEsYHn9B0MnDhf6FAKvgD hmDX0toKMpVMcuOm1xmPr dnIhbKN2zKOWj vvbei202JqGmd8reWBZit KSlWPvnEHF8P59ly3I3YZ InOSVrXKI5sHF8dB5xtZw nbjogbGVmdDsg krZgtAnlGZwvSRfuB212M HRvcDsnPkJpcnRoIERhdG P8ZB15QW46iAVht2R2wOT 5U0XnDRWamtbl nyrasKH0PWSrSSEcrW41O v3hzUruEp1bFRVqVNO3KQ WgqXTpS2RjhD1mPqMrLKG sTVJwL5OwgFHj MWspD816JKqfVfH3FJZtu jQzZ7QwCPQyiGbiEqU3g1 F4Tc2BP4M2NQ07VY35tAX dh7C9aKT9C6On JLDkirnajuediFE0IDYfI KXvsI84Ic1jjXssJj9hSH JlOUQ9AWJbdJGrP1AnrW9 yOiAjMDAwMDAw S8RdtRZcIPhzU407CYmyB kI1WVUkqtLgK8NvBJNsoV tvTiA6n8G0Oc9TZNs8HJ4 7NX44fWGaj9G4 bZM3V6PhGCKoxpmcbqqxh YO5HZTiJYIueQ04Hd5guM raVh0gUEKcVDL1DSDcfXR hJ0QvkJ7uSyIo VCPgPASbT3LneTJnDIxyW 827DQvxRjM8DQPbxeSmD1 XaCIDsyLvfNgC3j9X9On5 VVQGgXF58YDC2 zSX2ZQ65MC33P2RqGwlvl GFibGU+PHRhYmxlIHdpZH RoPScxMDAlJyBzdHlsZT0 lIg1iXZKaWJJr eIuokCTnCaDqf5vmJJKyN OaxWW8ftAfsO3RitIE1LA Mza6x3Ak75Z33cZ8EdtIA +OXQfkTZ3eST2 cW7cVfJqRxF5BFarY560Q qVgaLJpOehvm1nyh5kwbB r0DwM8CKRtnpQfkFdmKTL 4a2HrKj48Y89g IHdpZHRoPSIxNSUiIHZhb Dnqta0ecG6bFb5+PGNvbC Y8iZR5tO4yGbTtVgR0SQa lR874KxNetIPj Esegv6jvk5fkxBq7ItNyG RNnitUgzOfuXVS5z3ZbGe 05T0BwqAjkg9TkZcp2cw0 3hFSfe8N4nLQ4 Q5MqNUGgaksepDTvtAvpO D0nOVYtdvkhGYPkzS5xAE NaQ4u7PvUmTfA2GYvnY2Y wqiK6QTFexMPe QNchOIX7N96me9Q5OPJoZ ZCuJJE6kPG6uC7dbYsipv ogbGVmdDsgdmVydGljYWw lDUjjH044VJJk bRfjYHVhvA5oWUMzdYQol EymBJ1hBVNapqhqOzYFPT SPWLBSXIrWK3X4Q0LvZqh 0NTJwhDblJS7v zHEyVSnnZu0piLahgPgfF T6sAABuyhwiIVQcpU3cKW YgeDEblMovZY4tICEkrlb cv954DbDpQTB5 YITuhWZuK1MkhP2gBzVkV HEaBRVqW5RttDFaOWnpA6 28YJxoPrI6SWJwbfDjN2O sLWFsaWduOiB0 d2S0Km7mXC5oOg0xFJxvH L55EZ93yZOqw0N2eFV3D9 UxSXFycotrtjvhwDK6KZS yPTLfxB44wNHb COdoBe6ww4I6e480FIWgT JRjrJ72Zx8otJxrMZUmuE SXrH2gypkca7bgxfuvRiC uOUXpTZf9AUq9 VFNvfEafGnOwYGB9KpS2S TS3tISvcU7fcMrkzuoeyC 9wOyc+XdnxMHLcznT2F1M jQgi7FRQxlQsh XQ9zvCVdEDgeTv2inEnik OjaRF0iZNGeiuqiHEKhsY 9sRLHmrNZlsWkcLB2vBNX eppifv418AwGc CSH2IHOjjOQeB4EegI0hN wOfCQHuPGShN1AfkHGwVE bhM319MJhgKmL2BQMiveV fR5BbYJIscMgs SkR6b4K7Zl3IID5reRA6I 5ObVrz4MFExyNjjZK1zcI KlASduLt7huYeboUcvRO7 wNTBpbjtwYWRk aY5tMFFzaCInxDtkLE3rA WUinrozf198AoBzVWA2YE NhsBBeH2KcoZ8qUdDoFGF bEUGiQ5UsdHOj EJapJ850OHrxQzK0SGCjh zBtC8QiVWFxwYooEqN1m0 A7Fv2VwASrR0MnZ3u5I7P kPjwvdHI+PC90 FHVsRD63kZSdrBFik4ugy Pm2XwCiKFKyKYC7tDreYO ljb8CpNSKjH69tiCXjm5Z 6IGNvbGxhcHNl EaWpdJU9zB2hTNrdhhgaf 3kdrmmnFuaed8ibhb39sP 12K81aVTkzPGJeOZIkCEK lJPJnbEtvns8a kX7nVp7+FWPkxPH8nFF1v C6uUlTwCvF5XSonV118Lr QjhMKfIwpof2roy9otzVi 9IjIwJSIgdmFs pRjxCMB2h2CiZs68Q80nT HdpZHRoPSIyMCUiIHZhbG mmqg2rvX5pFr6+FZ1pb6d itz74hA49gDX+ KCDjIDX5xZvpTAlcNYDko E4rOKucXfS7LBQxQcClhW 57hUMfREjxJr8ggRhbmAf pPP0gQAVokjgc b473FbYrs5zyIKWviTMnR GrwSOH7O41fn3E5XUWqJU FnWEE0jGW8dS7keDjlazy gbGVmdDsgdmVy zJxxVKyyBNjeP702UOCma VyqKhJliWCtE5tlueIRPS 1lOjwvdGQ+HSDkFXH4tMe gQLtqVPIfrX9v YDAzC8f1VnIwUtS0BPtjS 7DirtO3KDChcTEcLJYdrZ OTdF0sadcfb0bpdfyfCpF yGCMhRVs2XJh6 GRRmpYbcCwWnPTH3JnT8N ZG5zNXaxQ3xyXqardixlW 9wOyc+RklOOjwvdGQ+PHR nFIV6dUqwKOku RKTmbN1hWUYxF4p1XvNbL bY0KFazX1DmdqD1DQGbjI PhVKPtdCVYmB9lyllnn8q vcjogIzAwMDAw USu1IVy2XTUegUvgDvZlR RJ9RwG8DMR3fOLncY8onS wddvigiU5jKyy+TVJOOjw vdGQ+PHRkIHN0 bBwvMOviWULzfV2iKTPhS 9i1TwRrKtJ2SWumI6Urzf C8VCFnlMXcACIklFYUxL3 rgmiwi3amccre EnPzPQJsKVz2JQx3RCFaq MfeNmSwNRU6PoR2AXS2hD RdvO1ckXdojjzicE5rPth +CVK6OIF7KX44 EI79C7FpYvqepQCcmYQ+P HRhYmxlIHdpZHRoPScxMD KwXyNliYziAT0uKq0vFZQ yLWNvbGxhcHNl OiBj (more content not included)... Normal [facility] B hCG Qualon 01-31-2021 Beta hCG Ql Negative Normal [facility] Comment on above: Performed By: #### 2 [id number], [id number], [id number], [id number], [id number] ####[facility] [address] [place] [address] Discharge Instructionson Discharge Instructions [id number]# 1.00CD:127 Normal [facility] ED Clinical Summaryon 2020 ED Clinical Summary [address] [address] ED Clinical Summary Person Information Name: RAJIV TOVAR/Sumit Age: 25 Years : 1995 Sex: Female Language: Guatemalan PCP: Alon Weber MD Marital Status: Single [...] 01/30/2021 23:43:48 01/30/2021 23:43:48 01/30/2021 23:43:48 ADDRESS: [address] [place] [phone] PHYS DOC NOTES: MEDICAL INFORMATION: Prescriptions Given: New Medications [id number], [address], [place] [id number], [phone] cephalexin (Keflex 500 mg Cap) 1 Capsules [...] Follow up: With: Address: When: Alon Weber [address] [place] [address], [place] [address] Business (1) In 3 days 02/02/2021 DIAGNOSIS: Acute UTI Normal [facility] ED Note-Physicianon 02-01-20 ED Note-Physician CD:[id number]:[id number] 2 2UW13pCfsqdWjh9zjzq8y TC8pMrRknpXzTYzoYe6qt 7otLG22zh7gBmFhRn4+Cj wiZA0DKCkVROQm wA1aMEVPSyqRDvEyMY7cL kFRXs1ZECVaAEjYBGbqLL 4tWCL5twgwiB6aMK2fKLA leYIaBo7er1s8 CaldNp1aNb6DVv44rAVku EHgWWWUY9mmjY7yCJ3fdN TkR8DgRQFbJs1PABe6gKo yjG0dijH4Tvy0 wKO0Le70c1wanjOax5FjK kX4PZabtQi8wIfdOLpxfV 1eQkHiJIQJsZ9xfDbxNG6 lrH5gsoGecQyh biI+GgcpFPCbDhs8fTLfM P06X8PgpItbVfk7vMV0KQ DgbKMdMOGccBk8NOKMLPW BLUNvbXBhdGli cONnLEYudaMyeqA0MbfHO RFyZeKgWva6O2uiEMS+Cj ygy1A4Des9KPw7PZC8aNa dTBTpo639SQMg eFqlwKpzgTOmz85hVKBia WOpTnGlk173THHhatT3ID nseKryTst4fYUgrLKvg3e tkRg2LiDiZFYp CygPSRUjzZglw3HxUpyME Fmdk8snsiKjcQwxBHX6m3 HfELpoTJLiHBS6WsMnLW2 +CgkJPGNvbCB2 KWjzX288ZuMwkHZgt0knk Fs4ZqQ8TCTfNk6JTPetE5 8kS4YxsDN+Lki5aXWdVKr +CgkJPHRyPgoJ CDo1tXZao4W6oHA2McIpi bWjn9l7WMtmHNK7EmE8JA D4dBSwcP5xqPqjlrzdrH9 wOyI+CgkJCTxk sKYrR2ktl0C1FlCvl5Pxm ZxaaxYxPYTvPoSbc3fgGt ejXCKswV6iSNP9FdUcMHJ leHQiIGlkPSJf WtLqPJFtEaWjJPDaHu46F iKsCKv3LUrbEqewITV1Zu VxQxOlMfUufBvvEK2cxSK kZGluZzogNHB4 OyI+CFJmTQ2rF9ypx6X1W nQsk1ZdpVcjguKkd0BlEW msYwkjjWSaGPA5bFbiGAE dr478BBpmsAav tXuuIt4bNHztyDC2nJ2yM AOixxS4qH2xDgF8riAdkt vtdlI7Ae5VZVSxRdXVrlI cfr6keQqoessi q1Rlni08L6KhBW8+CgkJC YaoaESqG2tgq2J6CgNeb1 Lhr41ijoI9BC5atOF9JRT aVGWuOwXbo6zm YmxlIGRkZnJlZXRleHQiI OIqJdI0imJnc1S3lQ1zy1 L0yPI1ZtUfiT2blTdrlKV wAMK8fYLkaHac gONuE9xrCVIWR1htG16JD ZUMSGTYMELtRQa3SSzwNv QiIGlkPSJfYTMyMjFhZGU kADWdLI55GnFs QGFmOOXkUsS2KHKxFgN1Q CA7Fz19x4RtrkOxlWojQD 2rsDFbZ1kzVbYzmUMmPWx nNvRmLEQieT8k MaPyoML4KBRixCJgPIteK 837CCwgZxI6AIGqdP2uNk CwQ7RyESmtUNysOVj8OYD chzHua9A3cCL2 MZ9dmw9dqCwvYj6ouQ09J VtfmFX3IT5bik6jhXxxcW O5pH1rMVDnqpN9tW0uHiZ ao38pSzR+JiN4 XMY4Rk9bzTVfxSmknKttC zWsGKKdEFV1HXxbNPTzJN 1yP7rvLOg6B7KpEB0+PGJ yIC8+CgkJCSYj xXGjWguhYEp3SrhBOWsPB NVhikTreAOcng1yKPWuzb FjwQP6gWJjTFBazE00ZID tADRmDTW8ZgUl SyxaEHRtaiyqoAabAO8az B8sFDAqP0g9ZkPqOV2lYa nhIiA9MEyfNUt7UGkiPSj eHC52HYp1EGYw JBB7FyDkNrUcGsUed2Z5e EY3DtZis2YoOOl4SX0mbe X2Bb40J7Jbij5MTSdBNL9 kaXY+CgoJCQk8 MEt0KRMrZMLtAXRbLRItN 6Hsf82rWTWkCSLyZBMmNA BcIAMnAIeob0SipRRiBQY 4VDf8ZTYaxhXx o5SnSqemBuMpMYhnELJ2d L8qI18nIU8lUG3EMsIoTP UcPFThVwPhfEZ2Nh24LzU 6QDF0ES68MdMw PCW8CJgeSFu7Fv2kNNKpP tTgXZP6WMnpEAV0fGkwFZ UwJGRigO2hHiB5qDy8Kh6 5h3IhgtPjzNRq os5fDBAfBXF1jS5eNYiea GxheSI+OSHeER1si5U0jZ L8RxMjrhMyj9FfZ6i5EfF vw2faPeG7AFb8 PWVtV17eFAUju511INZsR GVybGluZTsiPkNoaWVmIE YziYEhZJkmvSeob3Dccq7 1T3XfDX1+CgoJ NSt8DSf5WXUnHFPyGRXaL GVtcmNvbnRlbnQiIGRkOm RlzwQbmiN7wDNqIBFFWFZ LXRLJG41VQILb KPNkLnUwWpKiAQ6oKIV6e XW5FlVFCpAtZAg0IJZuFM RwLSLKKx3ZPIDpJLWOTVD FOZC1MOZIJRBb bFP5Jd95ZhBdNziaCr1xY KSdFQZkBiWaUjhaVj7jPE m1HKPyBRyjCvBxMikDNJa 0QKo1SQZyBSNn PSJkZGVtcmNvbnRlbnRpd EYuIMSqnsGmy7JfQknzLy TpETgtt556KX47eZtaQJ9 xSWPZP8JRDW6B RUFTIiBkZDplbnRpdHlpZ K6jODy0JOR5GRJjRlWckW H9Jx1fIXNtXsxqWq2bFVT hLTRkMWMtYjNl Qy84ITB7TBc5BMW9PtvxS LqhlU8qUoSzQQOHmZ1qyK rwHG0quE2mtwTyaLfzuaG +cHQgYXJyaXZl amVai5RffboerYJsq9fgC FNjCHQiKFVryL3ybWcwlA UcgXUajRFjkK3daAzcVMI pCP6xJVMcVI2o C73zkiJ7dkI7dZCjsxzcy DUrOKN2NYhqVNTxzHswPM GdRZCeTQSqaaSiw6UwOBu qAP9bUAvywzZm kZAtJoIssyQycW9dYFP1d 6RcJnavTAi4CyoRKZy6C1 Fltp3DRPxFHS6exUB+Cgo DIUs8JYd6XGTh MZBgSQYfJHPrH9Kpg18iT GRyZWZyZXNoYWJsZSBkZG ntn0UnhUHxWSR0RVo1FXE cdoWkf8BjUgqm JvHyTSdeOZC0fF0sI64fH B2oQW3FLuSaZSSrNoVjDi GwzUH5Hu8wA1GhUPR1BM9 pBoWmWLQ6LyQx JLa9Eh1wZJU7DqS8HHeeU ZHoXFJ4tJciJKXgZAKavG 5iSuS6vBw8Xn23f9IplgH kxSMway5kPAWa NUL8fE7sPMbpbNdaaMO+P YUpEX6zg3Z9iIO9EnUmcv Rsw1NfJ7z6KuYes3ciScQ 2AYe3XCQcQ07d WJOoy871FSLxWIEqzLkhV ZgdXknqv9Qgmnqxs7KcGS Vhd2NqhRTCuUuyJWMvZO6 qjLZhZzpbe3Kw oy0PMzmTGDxrfZYmC9jio 6T6AuBhOJ6wK92kgZXvaX CeUJP3N80zD1NddG5wPLM NWiTxTQlfu803 NO06iBfxMV1mON1TO1OZG QOcXVFtEbZpNiZpPI3zCZ B6rQI8SsNnIrAzVlR8GMX 8ZIBzADOUDw09 AijTMTHXNiQ2N5S2F4C7I PSuiSS4Fk7zBNE7IbruQY 40OXQyMQEdAEYmDPSjAA9 3CLTgWWK5CVB0 GFetQtyDLXu4ROe7HUNlC XNzPSJkZGVtcmNvbnRlbn BpbZGmFoJpAGaod033PB4 9qAxxHP1wPFLK J5LYKC8ZBUWUUnBvRUavp pSrjWivRR9xQKAjTWC1RD 36qLO1udEno8fuhe5qBAA qzPC5Ht17KBOk ZuxzDC7oXqeqKYX7TFunK YX6Ya18SBG7AUAjNRTgZF XmLwiJXRr5QGn3QFDnFMM zPSJkZGNvbXBv njNwoRShPMN0QE52uEN9y AK0uGH8nWH3YjIfg8MydT WqcVEnpZE8Sz93J0L4Yjq gYD1oM1MnDPSt BeuvMzG0Em94TRPmInKqI LK4B6BpGpkTORi2OSz4XW UfAKOuJXGkWJGjFNC2IDe 9ULVndmRnt5Ih VgtxFsBtCAwzxR8hiC0ap CeuV3P9iVnmSUY6p4Vzan lnaHQiIGlkPSJfMjlkMjM 8ICKyMGGrJW64 Tpu4BHRnGhZvAVa3JBu0V dP8BkD8Vr3XMLgiy9KkA6 fvAmGwoAPcBUKqNjU2VWV rGS8gSUEmZF4h zCZmy6k2qMXEJFpld6Uoz 2UjehpcwdWxjKH9dlSppt IiEM64emD8oAWlQRMdnXZ fudCxnTA0f2P4 AP3fQJbpiOPwdSs1tSCbq CAfcGXnS3OfIR6sV9SkOH 6cvZ4dhEHtRRdwYUFsZPR dD2FkUNVzDC3z QPFjeQ2lxP4kGSLmGLBdk lL9lUPnrIVhsQvbPVMmT8 JpYmVkIGFzIHNoYXJwLCB kzmGwe8SdTFIy e11dfPr8FEZaODttvTRpZ EQtHAwxk7miAQTeGGK9SW mcRpeoBV2vTSoix4VhUCC rL7zdPND6jxKo bnRseSByYXRlZCBhdCBhI DqrWCEpMP3bADfcbzZ0q0 qaamZlYEFmfAUoyM8svQc iFTTlq3OcQVQm zN6dc0Y3GM2fELJfz9RbK DTmLJV7kZIhXQ0ufg9aOG NimYIsBGZ4o9AjuTBtYD3 yCKTaGSV8UM6f cWsgMfY4GTCwIK9xf7BmY BjtiVN7bQJgGB7gZEFyZP 6mz6W0mEP2CyZuOMBzrhq mcX0nSbAajJg6 QOIjATJtpsldOm79jV6vB zWpaUf6NN1ugxilbs24v2 N2KSEdvAciyBVxC5dbXLG vdHRvbTogMHB4 OyI+Fz5ciGzjtJ5qpMKxX dOstUNiAPone6YeqkWxZy ayt2Heym5cE8weKRl5d1O nbjHzdJbrZA2u jBSsMYntAg72s9O5XPHyu AltaJRsTPwzUp9cg0H2i7 90BMGgwXjyjOVfX3fjJVT dpOwnWIX6BqWw Y (more content not included)... Normal [facility] Comment on above: Result Comment: Elec tronically [...] this condition includes: ? Antibiotic medicine. ? Kwsy-orl-rlvpdeb medicines to treat discomfort. ? Drinking enough [...] these instructions at home: Medicines ? Take txmt-hcz-mjevaik and prescription medicines only as told by [...] This in (more content not included)... Normal [facility] ED Patient Summaryon 021 ED Patient Summary [address] [address] Patient Discharge Instructions Person Information Name: RAJIV TOVAR Age: 25 Years Arrival Date: 01/30/2021 20:17:08 Discharge Diagnosis: Acute UTI Primary Care Physician: Alon Weber MD Provider Information Primary Provider: Joshua Hollingsworth DO [employer] Utility Worker:None The exam and treatment you received in the Emergency Department were for an urgent problem and are not intended as complete care. It is important that you follow up with a doctor, nurse practitioner, or physician?s printing bindery assistant for ongoing care. If your symptoms [...] Follow-up Instructions: With: Address: When: Alon Weber [facility], [address] [place] [id number] Business (1) In 3 days 02/02/2021 In the event that this physician does not participate in your insurance network, please consult with your insurance company to find a nearby participating provider. Patient Education Materials: Urinary Tract Infection, Adult A MESSAGE TO ALL PATIENTS REGARDING OPIOIDS PRESCRIPTION OPIOIDS: WHAT YOU NEED TO KNOW Prescription opioids can be used to help relieve fzjhoetq-sz-njpivl pain and are often prescribed following a [...] be struggling with addiction, tell your health grounds caretaker and ask for guidance or call SAM[employer]?S National Helpline at 2-139-752-HELP. v Source: [place] Department of Health a (more content not included)... Normal [facility] UA With Cult Reflexon 2020 Bacteria LM Ql (Urine sed) 1+ /HPF Abnormal Trace [facility] Comment on above: Performed By: #### 1 [id number], [id number] ####[facility] [address] [place] [address] Bilirubin Ql (U) Negative Normal Negative [facility] Comment on above: Performed By: #### 1 1326301, 6013883 ####[facility] [address] [place] [address] Clarity (U) CLOUDY Abnormal Clear [facility] Comment on above: Performed By: #### 1 0394779, 0423165 ####[facility] [address] [place] [address] Color (U) YELLOW Normal Yellow [facility] Comment on above: Performed By: #### 1 5971721, 4399333 ####[facility] [address] [place] [address] Crystals LM Ql (Urine sed) Present Normal [facility] Comment on above: Performed By: #### 1 0240273, 0475107 ####[facility] [address] [place] [address] Epithelial cells.squamous LM.HPF (Urine sed) [#/Area] 0-2 Normal 0-2 [facility] Comment on above: Performed By: #### 1 5383743, 2394404 ####[facility] [address] [place] [address] Glucose Test strip (U) [Mass/Vol] Negative Normal Negative [facility] Comment on above: Performed By: #### 1 3603981, 2878930 ####[facility] [address] [place] [address] Hemoglobin Ql (U) TRACE Abnormal Negative [facility] Comment on above: Performed By: #### 1 9170664, 4134258 ####[facility] [address] [place] [address] Ketones (U) [Mass/Vol] Negative Normal Negative [facility] Comment on above: Performed By: #### 1 0155772, 2055042 ####[address] [address] [place].plasma/Lithi um.RBC (Bld) [Mass ratio] 0-3 Normal 0-3 [facility] Comment on above: Performed By: #### 1 1223065, 4363576 ####[address] [address] Mucus Ql (Urine sed) TRACE Normal [facility] Comment on above: Performed By: #### 1 6638847, 0140751 ####[address] [address] Nitrite Ql (U) Positive Abnormal Negative [facility] Comment on above: Performed By: #### 1 6138624, 9664625 ####[address] [address] pH (U) 7.5 [pH] Invalid Interpretation Code 5.0-9.0 [facility] Comment on above: Performed By: #### 1 4760818, 4263823 ####[address] [address] Protein (U) [Mass/Vol] Negative Normal Negative [facility] Comment on above: Performed By: #### 1 8764781, 2387712 ####[address] [address] Specific gravity (U) [Rel density] 1.020 Invalid Interpretation Code 1.005-1.030 [facility] Comment on above: Performed By: #### 1 9097285, 4329478 ####[address] [address] Type of Urine collection method Clean Catch Normal [facility] Comment on above: Performed By: #### 1 6752191, 7760619 ####[address] [address] Urobilinogen Qn (U) 0.2 {Arnie'U}/dL Normal 0.0-1.0 [facility] Comment on above: Performed By: #### 1 8449569, 7093930 ####[address] [address] WBC Auto Ql (U) 1+ Abnormal Negative [facility] Comment on above: Performed By: #### 1 5599797, 6838251 ####[address] [place] [address] WBC LM.HPF (Urine sed) [#/Area] 6-15 Abnormal 0-5 [facility] Comment on above: Performed By: #### 1 3384044, 7084729 ####[address] [place] [address] Auto Diffon 01-30-2021 Basophils/100 WBC (Bld) 0.4 % Normal 0.0-2.0 [facility] Comment on above: Order Comment: Order Added by Discern Expert. Performed By: #### 2 748234, 6224579, 2784322, 56521226, 6409265, 37568934, 1706826 ####[address] [address] Basophils/Leukocytes Auto (Bld) [Pure # fraction] 0.0 E9/L Normal 0.0-0.2 [facility] Comment on above: Order Comment: Order Added by Discern Expert. Performed By: #### 2 704389, 3908108, 9202790, 34083138, 6390276, 58400227, 0470879 ####[address] [address] Eosinophils/100 WBC (Bld) 1.4 % Normal 0.0-8.0 [facility] Comment on above: Order Comment: Order Added by Discern Expert. Performed By: #### 2 904821, 0533147, 7143741, 05781859, 8000248, 43917378, 1120023 ####[address] [address] Eosinophils/Leukocyt es Auto (Bld) [Pure # fraction] 0.1 E9/L Normal 0.0-0.5 [facility] Comment on above: Order Comment: Order Added by Discern Expert. Performed By: #### 2 246650, 2534558, 8371570, 71384582, 1753926, 42376136, 8632067 ####[address] [address] Lymphocytes/100 WBC (Bld) 23.7 % Normal 14.0-50.0 [facility] Comment on above: Order Comment: Order Added by Discern Expert. Performed By: #### 2 285474, 2164370, 3250030, 09572706, 7396475, 60402828, 1217808 ####[facility] [address] [place] [address] Lymphocytes/Leukocyt es Auto (Bld) [Pure # fraction] 1.9 E9/L Normal 1.0-4.0 [facility] Comment on above: Order Comment: Order Added by Discern Expert. Performed By: #### 2 968207, 9999130, 8627571, 60140474, 7453674, 12680565, 1556583 ####[address] [place] [address] Monocytes/100 WBC (Bld) 6.2 % Normal 4.0-14.0 [facility] Comment on above: Order Comment: Order Added by Discern Expert. Performed By: #### 2 113662, 6727413, 9488271, 28238843, 7484691, 34339046, 8416511 ####[address] [address] Monocytes/Leukocytes Auto (Bld) [Pure # fraction] 0.5 E9/L Normal 0.2-1.0 [facility] Comment on above: Order Comment: Order Added by Yifan Expert. Performed By: #### 2 580744, 1566859, 1650303, 48673443, 0143257, 30818280, 5751629 ####[address] [place] [address] Neutrophils/100 WBC (Bld) 68.3 % Normal 36.0-75.0 [facility] Comment on above: Order Comment: Order Added by Yifan Expert. Performed By: #### 2 662888, 0420102, 7772561, 07447740, 5358393, 29159062, 0726025 ####[address] [address] Neutrophils/Leukocyt es Auto (Bld) [Pure # fraction] 5.6 E9/L Normal 2.0-7.5 [facility] Comment on above: Order Comment: Order Added by Discern Expert. Performed By: #### 2 248798, 4817054, 7450272, 89618518, 1762632, 70086990, 8332104 ####[facility] [address] [place] [address] BMPon 01-30-2021 Calcium [Mass/Vol] 9.0 mg/dL Normal 8.9-11.1 [facility] Comment on above: Performed By: #### 2 507909, 7223714, 7625375, 61784875, 6310115, 01654605, 5730374 ####[facility] [address] [place] [address] Creatinine [Mass/Vol] 0.7 mg/dL Normal 0.5-1.3 [facility] Comment on above: Performed By: #### 2 487546, 1171652, 1131918, 32985762, 7554711, 86681899, 4188331 ####[facility] [address] [place] [address] Urea nitrogen [Mass/Vol] 10 mg/dL Normal 5-21 [facility] Comment on above: Performed By: #### 2 747110, 9497471, 0061240, 60672896, 1396958, 30759745, 2056101 ####[facility] [address] [place] [address] Urea nitrogen/Creatinine [Mass ratio] 14 No Units Normal 10-20 [facility] Comment on above: Performed By: #### 2 849834, 0884154, 5161569, 68241940, 8942849, 00761125, 2590962 ####[facility] [address] [place] [address] Anion gap [Moles/Vol] 12 mmol/L Normal 6-16 [facility] Comment on above: Performed By: #### 2 314174, 4749012, 8205630, 06951609, 3758253, 66810599, 0142516 ####[facility] [address] [place] [address] Chloride [Moles/Vol] 104 mmol/L Normal 101-111 [facility] Comment on above: Performed By: #### 2 927024, 8433686, 7989399, 94510905, 0797333, 14868514, 1727164 ####[facility] [address] [place] [address] CO2 [Moles/Vol] 25 mmol/L Normal 21-[address] [facility] Comment on above: Performed By: #### 2 532793, 4458405, 8059482, 15187783, 5925781, 37021698, 3620372 ####[facility] [address] [place] [address] Glucose [Mass/Vol] 93 mg/dL Normal 55-199 [facility] Comment on above: Result Comment: If t his glucose result represents a fasting glucose, interpretation should refer to the following reference range: 55-99 mg/dL Performed By: #### 2 424961, 7404592, 1340406, 51618406, 2600628, 74521576, 0721643 ####[facility] [address] [place] [address] Potassium [Moles/Vol] 3.8 mmol/L Normal 3.5-5.3 [facility] Comment on above: Performed By: #### 2 494353, 8961250, 8976616, 17496248, 9375152, 59916413, 0302191 ####[facility] [address] [place] [address] Sodium [Moles/Vol] 137 mmol/L Normal 135-145 [facility] Comment on above: Performed By: #### 2 556603, 0940425, 4721893, 03683229, 7866164, 94717835, 1735933 ####[facility] [address] [place] [address] CBC w/ Auto Diffon 08-09-202 1 Erythrocyte distribution width (RBC) [Ratio] 12.2 % Normal 10.9-14.2 [facility] Comment on above: Performed By: #### 2 762413, 0382546, 7026758, 69928528, 8729055, 52851811, 3462179 ####[facility] [address] [place] [address] Hematocrit (Bld) [Volume fraction] 39.3 % Normal 34.0-46.0 [facility] Comment on above: Performed By: #### 2 338940, 9751375, 7768961, 33514570, 5577542, 89761700, 7685615 ####[address] [place] [address] Hemoglobin (Bld) [Mass/Vol] 13.3 g/dL Normal 12.0-16.0 [facility] Comment on above: Performed By: #### 2 213460, 5825027, 4755447, 18216856, 4597074, 82645532, 9082288 ####[facility] [address] [place] [address] MCH (RBC) [Entitic mass] 31.3 pg Normal 27.0-34.0 [facility] Comment on above: Performed By: #### 2 966391, 2993469, 9532498, 80243851, 8533398, 60155927, 3096862 ####[address] [address] MCHC (RBC) [Mass/Vol] 34.0 g/dL Normal 31.4-36.0 [facility] Comment on above: Performed By: #### 2 718631, 6187519, 3759435, 49178689, 2213831, 36545554, 1159058 ####[address] [address] MCV (RBC) [Entitic vol] 92.1 fL Normal 80.0-100.0 [facility] Comment on above: Performed By: #### 2 058655, 1497753, 2792894, 41535449, 9765116, 31126473, 3710791 ####[facility] [address] [place] [address] Platelet mean volume (Bld) [Entitic vol] 9.2 fL Normal 6.4-10.8 [facility] Comment on above: Performed By: #### 2 800000, 1197620, 9823825, 31975189, 5932578, 78530163, 7335631 ####[facility] [address] [place] [address] Platelets (Bld) [#/Vol] 214.0 E9/L Normal 150.0-500.0 [facility] Comment on above: Performed By: #### 2 408563, 5086184, 5687885, 47697062, 1759488, 53784501, 8952162 ####[address] [place] [address] RBC (Bld) [#/Vol] 4.3 E12/L Normal 4.3-5.9 [facility] Comment on above: Performed By: #### 2 241371, 3691647, 7417272, 44100457, 3664635, 01806339, 1425166 ####[address] [place] [address] WBC corrected for nucl RBC Auto (Bld) [#/Vol] 8.2 E9/L Normal 4.0-11.0 [facility] Comment on above: Performed By: #### 2 551545, 5841728, 7397230, 22126658, 0191776, 11990250, 1840155 ####[address] [place] [address] Consent for Treatmenton Consent for Treatment [id number] Normal [facility] Hep Func Panelon 01-30-2021 Albumin [Mass/Vol] 4.0 g/dL Normal 3.3-5.0 [facility] Comment on above: Performed By: #### 2 258991, 0973857, 7862562, 03571450, 5166317, 41517898, 2286089 #### [facility] [address] [place] [address] Albumin/Globulin (S) [Mass conc ratio] 1.5 Normal 1.1-2.2 [facility] Comment on above: Performed By: #### 2 705467, 2943788, 4510446, 18634040, 8750714, 80741499, 8241711 #### [facility] [address] [place] [address] ALP [Catalytic activity/Vol] 44 Int._Unit/L Normal 21-98 [facility] Comment on above: Performed By: #### 2 875571, 1552345, 8439526, 27826595, 2552845, 96134332, 6983071 #### [facility] [address] [place] [address] ALT No additional P-5'-P [Catalytic activity/Vol] 20 Int._Unit/L Normal 6-46 [facility] Comment on above: Performed By: #### 2 581743, 8484615, 9495114, 86519308, 5212172, 32233058, 3401272 #### [facility] [address] [place] [address] AST [Catalytic activity/Vol] 16 Int._Unit/L Normal 5-43 [facility] Comment on above: Performed By: #### 2 462957, 0924014, 6608741, 79397595, 3678772, 41471355, 6055319 #### [facility] [address] [place] [address] Bilirubin [Mass/Vol] 1.1 mg/dL Normal 0.0-1.1 [facility] Comment on above: Performed By: #### 2 867135, 4129068, 0032374, 44421754, 3609755, 66195968, 0707998 #### [facility] [address] [place] [address] Bilirubin.direct [Mass/Vol] 0.2 mg/dL Normal 0.1-0.4 [facility] Comment on above: Performed By: #### 2 462977, 2450466, 0965363, 32558946, 3141132, 27362924, 5039775 #### [facility] [address] [place] [address] Bilirubin.indirect [Mass or moles/Vol] 0.9 mg/dL Normal 0.1-0.9 [facility] Comment on above: Performed By: #### 2 341013, 2243284, 8441348, 74696870, 1384395, 78110540, 9484640 #### [facility] [address] [place] [address] Globulin (S) [Mass/Vol] 2.6 g/dL Normal 1.4-4.0 [facility] Comment on above: Performed By: #### 2 395704, 4037075, 2403986, 25589072, 6005329, 66111512, 5575213 #### [facility] [address] [place] [address] Protein [Mass/Vol] 6.6 g/dL Normal 6.0-7.8 [facility] Comment on above: Performed By: #### 2 668917, 1538900, 5514234, 18904589, 2012022, 56028348, 0158444 #### [facility] [address] [place] [address] Lipase Levelon 01-30-2021 Lipase [Catalytic activity/Vol] 32 U/L Normal 13-58 [facility] Comment on above: Performed By: #### 2 259868, 1335193, 1984037, 78572388, 6041694, 40397801, 5252543 #### [facility] [address] [place] [address] eGFRon 01-30-2021 GFR/1.73 sq M.predicted among blacks MDRD (S/P/Bld) [Vol rate/Area] mL/min/{1.73_m2} Normal >=59 [facility] Comment on above: Order Comment: Order added by Discern Expert. Result Comment: eGFR is race adjusted. AA=. Performed By: #### 2 384308, 9310111, 4353847, 07188562, 4507875, 16338750, 4543059 #### [facility] [address] [place] [address] GFR/1.73 sq M.predicted among non-blacks MDRD (S/P/Bld) [Vol rate/Area] mL/min/{1.73_m2} Normal >=59 [facility] Comment on above: Order Comment: Order added by Discern Expert. Result Comment: Ornamental Iron Worker bib kidney disease could be indicated at eGFR's of less than 60 mL/min/1.73m2. Kidney failure is indicated at less than 15 mL/min/1.73m2. Performed By: #### 2 [id number], [id number], [id number], [id number], [id number], [id number] #### [facility] [address] [place] [address] Provider Letteron 06-03-2020 Provider Letter June 03, 2020 To Whom It May Concern, Rajiv has been under my care and had a lap choly on 05/10/2020. She was seen post operatively on 05/23/2020 and was healing well. Rajiv is released to work on 06/06/2020 with no restrictions. Please call the office at [phone] with any questions/ concerns. Sincerely, Dr. Aiden Izquierdo faxed to [facility] to [phone] Normal [facility] Ambulatory Clinical Summaryo n 05-23-2020 Ambulatory Clinical Summary {[id number] Normal [facility] General Surgery Office/Clini c Noteon 05-23-2020 General [...] POLK, Aiden Davila Only if needed [address] [place] [address]- Additional Instructions: F/U PRN Problem List/Past Medical [...] Family History Family history is negative Normal [facility] Comment on above: Result Comment: Elec tronically Signed By: Aiden IZQUIERDO MD\.br\Date and Time Signed: 05/23/20 10:17 EST\.br\Electronically Co-Signed By: Mildred Cook MA\.br\Date and Time Co-Signed: 05/23/20 09:55 EST Intra[employer] Documentson 1 07-17-2019 [employer] Documents [id number] Normal [facility] Ambulatory Clinical Summaryo n 05-16-2020 Ambulatory Clinical Summary {[id number] Normal [facility] Gastroenterology Office/Clin ic Noteon 05-16-2020 Gastroenterology Office/Clinic Note Chief Complaint f/u EGD HPI Staff This is a 25 year old female who presents today for a follow up to EGD. History of Present Illness 24 years old white female with no significant past medical history except for anxiety, referred to me from [facility], ER to be evaluated for right upper quadrant abdominal pain, she reports right upper quadrant abdominal pain, started 6 weeks ago, sporadic, moderate in nature except for the last time when it was severe for which she went to [facility], ER, she had normal CBC, CMP and [...] Information Ezequiel MARTINEZ MD Only if needed [facility] [address], [place] [address]- Additional Instructions: Patient Education Cholelithiasis Problem List/Past [...] Pathology Report; 04/29/2020 10:57 EST Normal [facility] Comment on above: Result Comment: [...] required. HOME CARE INSTRUCTIONS ? Only take iviq-lfz-[id number] or prescription medicines for pain, discomfort, or [...] Document Reviewed: 08/09/2011 ExitCare? Patient Information ?2013 retickr. [facility] Coding Summary.on 05-13-2020 Coding Summary. CODING DATE: 05/13/2020 FINAL [facility] STATUS: Home (Routine DC) PAYOR: Reba APC DESCRIPTION 5361 Level 1 Laparoscopy and Related Services ADMIT DX: REASON FOR VISIT DX: K81.1 Chronic cholecystitis FINAL DX: PRINCIPAL: K81.1 Chronic cholecystitis SECONDARY: K82.8 Other specified diseases of gallbladder F41.9 Anxiety disorder, unspecified PYMT PROC APC STAT DESCRIPTION DOCTOR NAME DATE 26197 5361 J1 Laparoscopy, surgical; Aiden IZQUIERDO MD 05/10/2020 cholecystectomy with cholangiography 88130 Anesthesia for Bakari Husain Jr, DO 05/10/2020 intraperitoneal procedures in upper abdomen including laparoscopy; not otherwise specified NOTE: The code number assigned matches the documented diagnosis and / or procedure in the patient's chart. However, the narrative phrase printed from the coding software may appear abbreviated, or result in slightly different terminology. Revised Coded By: Eugenia Mae Revised Date Saved: 05/13/2020 02:09 pm [facility] Main OR Intraoperative Recor don 05-13-2020 Main OR Intraoperative Record IntraOp Document Type FT Summary Primary Physician: Aiden IZQUIERDO MD Finalized Date/Time: 05/13/20 11:07:53 Pt. Name: RAJIV TOVAR/Sex: 1995 Female Med Rec #: [id number] Physician: Aiden IZQUIERDO MD Financial #: [id number] Pt. Type: A Room/Bed: Admit/Disch: 05/10/20 07:43:57 - 05/10/20 15:00:00 Institution: Case Times FT Entry 1 Patient Times In Room 05/10/20 09:29:00 Out Room 05/10/20 10:27:00 Procedure Times Start 05/10/20 09:44:00 Stop 05/10/20 10:20:00 Anesthesia Times Start 05/10/20 09:29:00 Stop 05/10/20 10:27:00 Last Modified By: My Callahan RN 05/10/20 10:27:42 General Comments: 1011- control room technician called dr. guo read xray dilated tapers distally can't exclude small stone possible spasm , Dr. Izquierdo stated understanding. - joan turner 05/13/2020 Chart opened to review and send charges. Angela Leavitt FACILITY ADMINISTRATOR. Case Attendance FT Entry 1 Entry 2 Entry 3 Case Attendee Ankit AGUILAR, Linnea IZQUIERDO MD, Aiden ARAUJO MD, Ramandeep Cummings Role Performed Anesthesiologist Surgeon - Primary Surgeon - Assist 1 Coupon Redemption Clerk Time In 05/10/20 09:29:00 05/10/20 09:40:00 05/10/20 [...] [place] TURNER, My Villalba RN, Bernadette Osman. Lead Sales Consultant, Arlette Davila Role Performed Loom Fixer Supervisor - Primary Scrub - Primary Scrub - [...] Magalie R Role Performed Scrub - Primary Sheetmetal Patternmaker Time In 05/10/20 09:29:00 05/10/20 10:00:00 Time [...] Bray RN, Deejay Chowdhury RN, Angel Oglesby Lead Sales Consultant, Carlos Rock CST, Macie C Time Out [...] By: Artemio (more content not included)... Normal [facility] Postoperative Documentson Postoperative Documents [id number]# 1.00CD:127 Normal [facility] Progress Note-Physicianon Progress Note-Physician Patient: RAJIV TOVAR [...] TID, # 10 tab(s), Refills(s) 0, [id number] 168, cm, 04/19/20 6:20:00 EDT, Height/Length Dosing, 58.5, kg, 04/19/20 6:20:00 EDT, Weight Dosing omeprazole 40 mg Cap-DR: 40 mg = 1 cap(s), Oral, Daily, # 30 cap(s), Refills(s) 2, [id number], 168, cm, 04/20/20 10:06:00 EDT, Height/Length Dosing, 59.5, kg, 04/20/20 10:06:00 EDT, Weight Dosing Documented Medications Documented desvenlafaxine 100 mg Tab-: 100 mg = 1 tab(s), Oral, Daily, Refills(s) 0, Depression Problem list: All Problems Biliary dyskinesia / SNOMED CT 423696678 / Confirmed Depression / SNOMED CT 41491503 / Confirmed Histories Past Medical History: No active or resolved past medical history items have been selected or recorded. Family History: Entire family history is negative. Procedure history: EGD (esophagogastroduoden oscopy) gastric outlet reduction ([id number]) on 04/29/2020 at 25 Years. section (90413328) on 07/23/2019 at 24 Years. Sinus (7116433435). Nasal cautery (081831047). Ankle (0219139). Comments: 05/10/2020 8:24 EST - [employer], Bernarda Bilateral ankle stabilazation for flat feet Diagnostic laparoscopy (236124703). Comments: 05/10/2020 8:26 EST - [employer], Bernarda ovarian cyst drained Social History Social & Psychosocial Habits Alcohol 04/19/2020 Use: Current Comment: Jose Albertoies - 04/19/2020 06:50 - Christiana Cuevas RN [...] 10:15 EST Heart (more content not included)... [facility] Comment on above: Result Comment: Elec [...] All Problems Biliary dyskinesia / SNOMED CT 065406251 / Confirmed Depression / SNOMED CT 90966218 / Confirmed Physical Examination Vital Signs 05/10/2020 [...] EST Apic (more content not included)... Normal [facility] Comment on above: Result Comment: Elec tronically Signed By: Bakari Husain Jr, DO\.br\Date and Time Signed: 05/13/20 13:20 EST Coding Summary.on 05-12-2020 Coding Summary. CODING DATE: 05/12/2020 FINAL [facility] STATUS: Home (Routine DC) PAYOR: Reba [...] Jaquez CphT Date Saved: 05/12/2020 09:53 pm [facility] Consent for Anesthesiaon Consent for Anesthesia [id number]# 1.00CD:127 [facility] Discharge Instructionson Discharge Instructions [id number]# 1.00CD:127 [facility] IntraOperative Documentson 1 07-11-2019 IntraOperative Documents [id number]# 1.00CD:127 [facility] Operative Reporton 0 Operative Report Date of Surgery: 05/10/2020 SURGEON: Aiden Izquierdo MD, FACS OFFICE SPECIALIST: Ramandeep Araujo MD, FACS PREOPERATIVE DIAGNOSIS: Chronic [...] Aiden Izquierdo MD, FACS lkr Dictated: 05/10/2020 #[id number] Typed: 05/10/2020 #[id number] cc: Alon Weber M.D. Aiden Izquierdo MD, FACS [facility] Comment on above: Result Comment: Elec tronically Signed By: TIMBO POLK, Aiden Davila\.br\Date and Time Signed: 05/11/20 08:04 EST Preoperative Documentson Preoperative Documents [id number]# 1.00CD:127 [facility] Preoperative Documents [id number]# 1.00CD:127 [facility] Consent for Treatmenton 04-24 Consent for Treatment [id number]#1 .00CD:127 [facility] Inpatient Patient Summaryon 05-10-2020 Inpatient Patient Summary [address] [address] [facility] Clinical Discharge Instructions PERSON INFORMATION Name: RAJIV TOVAR [facility]#:[id number] PHYSICIANS Admitting Physician: Aiden IZQUIERDO MD Attending Physician: Aiden IZQUIERDO MD PCP: Gus POLK, Alon Discharge Diagnosis: Chronic cholecystitis with calculus Comment: PATIENT EDUCATION INFORMATION Instructions: Post Op Patient Instructions - MANFRED (CUSTOM); How to Use an Incentive Spirometer; Timbo - Post Op Instructions (CUSTOM) Medication Leaflets: Follow up: With: Address: When: Aiden IZQUIERDO [address], [address] [place] [address] Business (1) Within 7 to 10 days Comments: Call for any problems. Call for followup appointment Type Location Start [facility] Follow Up [facility] 05/16/2020 1:00 PM 05/16/2020 1:15 PM Confirmed MEDICATION LIST Medications to Continue with No Changes Other Medications desvenlafaxine (desvenlafaxine 100 mg Tab-) 1 Tablets By Mouth every day. omeprazole (omeprazole 40 mg Cap-DR) 1 Capsules By Mouth every day. Refills: 2. ondansetron (Zofran ODT 4 mg Tab) 1 Tablets By Mouth 3 times a day. Refills: 0. Comment: Normal [facility] IntraOperative Documentson 07-10-2019 IntraOperative Documents [id number]# 1.00CD:127 [facility] Main OR PACU I Recordon 04-24 Main OR PACU I Record PACU Phase I Document Type FT Summary Primary Physician: Aiden IZQUIERDO MD Finalized Date/Time: 05/10/20 11:13:04 Pt. Name: RAJIV TOVAR/Sex: 1995 Female Med Rec #: [id number] Physician: Aiden IZQUIERDO MD Financial #: [id number] Pt. Type: A Room/Bed: Admit/Disch: 05/10/20 07:43:57 [...] By: Belkys Yarbrough RN 05/10/20 11:13 Normal [facility] Main OR PACU II Recordon Main OR PACU II Record PACU Phase II Document Type FT Summary Primary Physician: Aiden IZQUIERDO MD Finalized Date/Time: 05/10/20 15:45:07 Pt. Name: RAJIV TOVAR/Sex: 1995 Female Med Rec #: [id number] Physician: Aiden IZQUIERDO MD Financial #: [id number] Pt. Type: A Room/Bed: Admit/Disch: 05/10/20 07:43:57 [...] By: Marcelina Cadet RN 05/10/20 15:45 Normal [facility] Main OR Preoperative Recordo n 05-10-2020 Main OR Preoperative Record PreOp Document Type FT Summary Primary Physician: Aiden IZQUIERDO MD Finalized Date/Time: 05/10/20 10:00:50 Pt. Name: RAJIV TVOAR /Sex: 1995 Female Med Rec #: [id number] Physician: Aiden IZQUIERDO MD Financial #: [id number] Pt. Type: A Room/Bed: 06/24 Admit/Disch: 05/10/20 [...] By: My Callahan RN 05/10/20 10:00 Normal [facility] Monitor Recordon 05-10-2020 Monitor Record [id number]# 1.00CD:127 Normal [facility] Outpatient Surgery Discharge Instructionon 05-10-2020 Outpatient Surgery Discharge Instruction [place] [id number] Patient Discharge Instructions PERSON INFORMATION Name: RAJIV [...] Follow up: With: Address: When: [facility]iden [facility]il[facility] [address] [place] [address] [facility] () Within 7 to 10 days Comments: Call for any problems. Call for followup appointment Type Location [facility] Follow Up [facility] 05/16/2020 1:00 PM 05/16/2020 1:15 PM Confirmed Pharmacy Information: Thank you for choosing [facility] HERE ARE THE MEDICATION CHANGES THAT OCCURRED [...] possible. ? If the spirometer includes a assistant women's basketball coach indicator, use this to guide you [...] from co (more content not included)... Normal [facility] Patient Education - Texton 1 07-10-2019 Patient [...] possible. ? If the spirometer includes a assistant women's basketball coach indicator, use this to guide you [...] 10/21/2007 Document Revised: 07/03/2018 Document Reviewed: 04/23/2018 [employer] Patient Education ? 2019 [employer]. [place], [place] Aiden Izquierdo MD, FACS POST OPERATIVE [...] or r (more content not included)... Normal [facility] Progress Note-Physicianon Progress Note-Physician Patient: RAJIV TOVAR Age: 25 years Sex: Female : 1995 Associated Diagnoses: None Author: Aiden IZQUIERDO MD Postoperative Information Date/ Time: 05/10/2020 10:26:00 Preoperative Diagnosis: Chronic cholecystitis with calculus (CLZ33-PR K80.10, Working, Medical). Postoperative Diagnosis: Same pending pathology. Procedure: Laparoscopic Cholecystectomy with intraoperative chloangiogram. Performed by: Aiden Izquierdo MD. Coupon Redemption Clerk: Ramandeep Araujo MD. Specimens Removed: Gallbladder. Estimated Blood Loss: 5 ml. Complications: None. Normal [facility] Comment on above: Result Comment: Elec tronically Signed By: Aiden IZQUIERDO MD\.br\Date and Time Signed: 11/17/20 10:27 EST Progress Note-Physician Patient: RAJIV TOVAR Age: 25 years Sex: Female : 1995 Associated Diagnoses: None Author: Aiden IZQUIERDO MD Basic Information No change in History and Physical Normal [facility] Comment on above: Result Comment: Elec tronically [...] ALSO POSSIBLE. CLINICAL HISTORY: Cholelithiasis. COMMENT: Limited gzpmi-ha-cjgh C-arm images were obtained in the OR, [...] Dose: Ka,r in mGy = 3.4 Normal [facility] Coding Summary.on 05-08-2020 Coding Summary. CODING DATE: 05/07/2020 FINAL [facility] STATUS: Home (Routine DC) PAYOR: [place] ADMIT DX: REASON FOR VISIT DX: Z01.812 [...] CphT Date Saved: 05/07/2020 10:24 pm Normal [facility] Coding Summary.on 05-05-2020 Coding Summary. CODING DATE: 05/05/2020 FINAL [facility] DSC STATUS: Home (Routine DC) PAYOR: Reba APC DESCRIPTION 5301 Level 1 Upper GI Procedures ADMIT DX: REASON FOR VISIT DX: R10.13 Epigastric pain FINAL DX: PRINCIPAL: R10.13 Epigastric pain SECONDARY: R10.11 Right upper quadrant pain F41.9 Anxiety disorder, unspecified PYMT PROC APC STAT DESCRIPTION DOCTOR NAME DATE 57979 5301 Ezequiel WEST MD 04/29/2020 phagogastroduodenosco py, flexible, transoral; with biopsy, single or multiple 78157 Anesthesia for upper Husain Bakari Berry DO [...] Mae Revised Date Saved: 05/05/2020 11:48 am [facility] Consent for Procedure/Surger yon 05-05-2020 Consent for Procedure/Surgery [id number]#1 .00CD:127 [facility] Formson 05-05-2020 Forms [id number]#1 .00CD:127 [facility] Priority Order-Mitchell 2019 Priority Order-STAT Comment Invalid Interpretation Code [facility] Comment on above: Result Comment: Rece ived Performed at: [facility] [address] [facility], [place] [id number] [facility] Johanny Lozano Performed By: #### 2 [id number], SARS-CoV-2, MARY #### [facility] [address] [place] [address] SARS-CoV-2, NAAon 05-05-2020 SARS-CoV-2 (COVID-19) RNA MARY+probe Ql (Resp) Not detected Invalid Interpretation Code Not Detected [facility] Comment on above: Result Comment: This nucleic acid amplification test was developed and its performance characteristics determined by [employer]. Nucleic acid amplification tests include PCR and [...] detected) result in this assay. Performed at: [facility] [address] [facility], [place] [id number] MD Indira [place] Performed By: #### 2 [id number], SARS-CoV-2, MARY #### [facility] [address] [place] [address] B hCG Qualon 05-04-2020 Beta hCG Ql Negative Normal [facility] Comment on above: Performed By: #### 2 [id number] #### [facility] [address] [place] [address] CBC w/Indiceson 05-04-2020 Erythrocyte distribution width (RBC) [Ratio] 13.1 % Normal 10.9-14.2 [facility] Comment on above: Performed By: #### 2 731111, 2295247 ####[address] [address] Hematocrit (Bld) [Volume fraction] 40.5 % Normal 34.0-46.0 [facility] Comment on above: Performed By: #### 2 115753, [id number] ####[address] [address] Hemoglobin (Bld) [Mass/Vol] 14.0 g/dL Normal 12.0-16.0 [facility] Comment on above: Performed By: #### 2 716285, 6137952 ####[address] [address] MCH (RBC) [Entitic mass] 31.0 pg Normal 27.0-34.0 [facility] Comment on above: Performed By: #### 2 529033, 7666288 ####[address] [address] MCHC (RBC) [Mass/Vol] 34.6 g/dL Normal 31.4-36.0 [facility] Comment on above: Performed By: #### 2 083575, 7556343 ####[address] [address] MCV (RBC) [Entitic vol] 89.7 fL Normal 80.0-100.0 [facility] Comment on above: Performed By: #### 2 016731, 0562126 ####[address] [address] Platelet mean volume (Bld) [Entitic vol] 9.1 fL Normal 6.4-10.8 [facility] Comment on above: Performed By: #### 2 033864, 5379504 ####[address] [address] Platelets (Bld) [#/Vol] 245.0 E9/L Normal 150.0-500.0 [facility] Comment on above: Performed By: #### 2 368017, 6793709 ####[facility] [address] [place] [address] RBC (Bld) [#/Vol] 4.5 E12/L Normal 4.3-5.9 [facility] Comment on above: Performed By: #### 2 350871, 3721497 ####[facility] [address] [place] [address] WBC corrected for nucl RBC Auto (Bld) [#/Vol] 5.6 E9/L Normal 4.0-11.0 [facility] Comment on above: Performed By: #### 2 171855, 4198936 ####[place] [address] Consent for Treatmenton 04-24 Consent for Treatment [id number]#1 .00CD:127 Normal [facility] Hep Func Panelon 05-04-2020 Albumin [Mass/Vol] 4.2 g/dL Normal 3.3-5.0 [facility] Comment on above: Order Comment: if no t already done. Performed By: #### 2 876473, 3478061 ####[facility] [address] [place] [address] Albumin/Globulin (S) [Mass conc ratio] 1.4 Normal 1.1-2.2 [facility] Comment on above: Order Comment: if no t already done. Performed By: #### 2 062184, 5803305 ####[facility] [address] [place] [address] ALP [Catalytic activity/Vol] 112 Int._Unit/L High 21-98 [facility] Comment on above: Order Comment: if no t already done. Performed By: #### 2 396973, 2883933 ####[facility] [address] [place] [address] ALT No additional P-5'-P [Catalytic activity/Vol] 129 Int._Unit/L High 6-46 [facility] Comment on above: Order Comment: if no t already done. Performed By: #### 2 746180, 5775858 ####[facility] [address] [place] [address] AST [Catalytic activity/Vol] 28 Int._Unit/L Normal 5-43 [facility] Comment on above: Order Comment: if no t already done. Performed By: #### 2 666651, 1563323 ####[address] [address] Bilirubin [Mass/Vol] 0.7 mg/dL Normal 0.0-1.1 [facility] Comment on above: Order Comment: if no t already done. Performed By: #### 2 551353, 6047779 ####[address] [address] Bilirubin.direct [Mass/Vol] 0.1 mg/dL Normal 0.1-0.4 [facility] Comment on above: Order Comment: if no t already done. Performed By: #### 2 251897, 6028895 ####[facility] [address] [place] [address] Bilirubin.indirect [Mass or moles/Vol] 0.6 mg/dL Normal 0.1-0.9 [facility] Comment on above: Order Comment: if no t already done. Performed By: #### 2 457491, 6848239 ####[address] [address] Globulin (S) [Mass/Vol] 3.1 g/dL Normal 1.4-4.0 [facility] Comment on above: Order Comment: if no t already done. Performed By: #### 2 304340, 5057495 ####[address] [address] Protein [Mass/Vol] 7.3 g/dL Normal 6.0-7.8 [facility] Comment on above: Order Comment: if no t already done. Performed By: #### 2 053660, 9325364 ####[facility] [address] [place] [address] Ambulatory Clinical Summaryo n 05-03-2020 Ambulatory Clinical Summary {2p-[id number]-6e-c5-8e-4e -1z-29-l5-9c-04-4d-97 -4c-b4}CD:654607 [facility] Consent for Procedure/Surger yon 05-03-2020 Consent for Procedure/Surgery [id number]#1 .00CD:127 Normal [facility] Consent for Procedure/Surgery [id number]#1 .00CD:127 [facility] Formson 05-03-2020 Forms [id number]#1 .00CD:127 [facility] Forms [id number]#1 .00CD:127 [facility] Physician Orderon 05-03-2020 Physician Order [id number]#1 .00CD:127 [facility] Physician Referralon 020 Physician Referral [id number]#1 .00CD:127 [facility] Postoperative Documentson Postoperative Documents [id number]# 1.00CD:127 [facility] Progress Note-Physicianon Progress Note-Physician Patient: RAJIV [...] 10 tab(s), Refills(s) 0, Pharmacy: [facility]/pharmacy #[id number], 168, cm, 04/19/20 6:20:00 EDT, Height/Length Dosing, 58.5, kg, 04/19/20 6:20:00 EDT, Weight Dosing omeprazole 40 mg Cap-DR: 40 mg = 1 cap(s), Oral, Daily, # 30 cap(s), Refills(s) 2, Pharmacy: [facility]/pharmacy #6177, 168, cm, 04/20/20 10:06:00 EDT, Height/Length [...] minutes, Patient educated on smoking cesstation). Normal [facility] Comment on above: Result Comment: Elec tronically [...] mmHg (APR 29) DBP 88 mmHg (APR 29:) SpO2 100 [...] vomiting. Plan Transfer/ Discharge: Condition stable. Normal [facility] Comment on above: Result Comment: Elec tronically Signed By: Bakari Husain Jr, DO\.ilana\Date and Time Signed: 05/03/20 09:37 EST Consenton 05-02-2020 Consent [id number]#1 .00CD:127 Normal [facility] Discharge Instructionson Discharge Instructions [id number]#1 .00CD:127 Normal [facility] General Surgery Office/Clini c Noteon 05-02-2020 General [...] When Contact Information TIMBO POLK, Aiden Davila [address] [place] [address] [address] [place] [address]- Additional Instructions: F/U POST OP. [...] Family History Family history is negative Normal [facility] Comment on above: Result Comment: Elec tronically Signed By: Aiden IZQUIERDO MD\.br\Date and Time Signed: 05/02/20 15:39 EST\.br\Electronically Co-Signed By: Mildred Cook MA.br\Date and Time Co-Signed: 05/02/20 15:25 EST IntraOperative Documentson 1 07-02-2019 IntraOperative Documents [id number] .00CD:127 Normal [facility] IntraOperative Documents [id number]#1 .00CD:127 Normal [facility] Main OR Intraoperative Recor don 05-02-2020 Main OR Intraoperative Record IntraOp Document Type FT Summary Primary Physician: Ezequiel MARTINEZ MD Finalized Date/Time: 05/02/20 08:23:39 Pt. Name: RAJIV TOVAR/Sex: 1995 Female Med Rec #: [id number] Physician: Ezequiel MARTINEZ MD Financial #: [id number] Pt. Type: O Room/Bed: / Admit/Disch: 04/29/20 10:12:58 - 04/29/20 23:59:59 Institution: Case Times FT Entry 1 Patient Times In Room 04/29/20 10:52:00 Out Room 04/29/20 11:04:00 Procedure Times Start 04/29/20 10:56:00 Stop 04/29/20 10:59:00 Anesthesia Times Start 04/29/20 10:52:00 Stop 04/29/20 11:04:00 Last Modified By: Russell Maloney RN 04/29/20 11:04:12 General Comments: 05/02/2020 Chart opened to review and send charges. F Dagmar FACILITY ADMINISTRATOR. Case Attendance FT Entry 1 Entry 2 Entry 3 Case Attendee Rodrigue Berry DO, Bakari MARTINEZ MD, Ezequiel Maloney RN, Russell [place] Role Performed Anesthesiologist of Surgeon - Primary Loom Fixer Supervisor - Primary Record Time In 04/29/20 10:52:00 04/29/20 10:52:00 04/29/20 10:52:00 Time Out 04/29/20 11:04:00 04/29/20 11:04:00 04/29/20 11:04:00 Procedure EGD(.) EGD(.) EGD(.) Comments Last Modified By: Haider TURNER, Russell Maloney RN, Russell Santos RN 04/29/20 11:04:13 04/29/20 11:04:13 04/29/20 11:04:13 Entry 4 Entry 5 Entry 6 Case Attendee Mere TURNER, Charlotte Roberts CST, Aria Role Performed Loom Fixer Supervisor - Primary Scrub - Primary Staff - [...] Bakari Cummings, Given Participants Ezequiel MARTINEZ MD, Haider TURNER, Mere Costello RN, Jose Mendez Kirstyn K [...] Arm P (more content not included)... Normal [facility] Ezequiel Martinez M.D. [address] [place] [address] Re: RAJIV TOVAR Date of : 1995 [...] operative report following her procedure. Sincerely Aiden Eusebio [facility] Coding Summary.on 04-30-2020 Coding Summary. CODING DATE: 04/29/2020 FINAL [facility] STATUS: Home (Routine DC) PAYOR: Reba [...] Jaquez CphT Date Saved: 04/29/2020 11:14 pm [facility] Consent for Treatmenton Consent for Treatment [id number] .00CD:127 [facility] Endoscopic Procedure Report - Otheron 04-29-2020 [...] surgery for right upper quadrant pain/cholelithiasis Normal [facility] Comment on above: Result Comment: Elec tronically Signed By: Ezequiel MARTINEZ MD\.br\Date and Time Signed: 04/29/20 11:03 EST Other Comment: Lorri frazier Attachment - attachment storage system not supported [id number] Can be viewed in source systemMissing Attachment - attachment storage system not supported [id number] Can be viewed in source systemMissing Attachment - attachment storage system not supported [id number] Can be viewed in source systemMissing Attachment - attachment storage system not supported [id number] Can be viewed in source systemMissing Attachment - attachment storage system not supported [id number] Can be viewed in source system Inpatient Patient Summaryon 04-29-2020 Inpatient Patient Summary [address] [address] [facility] Clinical Discharge Instructions PERSON INFORMATION Name: RAJIV TOVAR [facility]#:[id number] PHYSICIANS Admitting Physician: Ezequiel MARTINEZ MD Attending Physician: Ezequiel MARTINEZ MD PCP: Alon Weber MD Discharge Diagnosis: Abdominal pain Comment: PATIENT EDUCATION INFORMATION Instructions: Medication Leaflets: Follow up: With: Address: When: Aiden IZQUIERDO [address], [address] [place] [address] Business (1) With: Address: When: [facility] [address], [place] [address] Within 2 weeks Type Location Start [facility] Follow Up [facility] 05/16/2020 1:00 PM 05/16/2020 1:15 PM [...] times a day. Refills: 0. Comment: Normal [facility] Main OR PACU I Recordon Main OR PACU I Record PACU Phase I Document Type FT Summary Primary Physician: Ezequiel MARTINEZ MD Finalized Date/Time: 04/29/20 12:13:51 Pt. Name: RAJIV TOVAR/Sex: 1995 Female Med Rec #: [id number] Physician: Ezequiel MARTINEZ MD Financial #: [id number] Pt. Type: O Room/Bed: / Admit/Disch: 04/29/20 [...] By: Belkys Yarbrough RN 04/29/20 12:13 Normal [facility] Main OR Preoperative Recordo n 04-29-2020 Main OR Preoperative Record Holding Area Document Type FT Summary Primary Physician: Ezequiel MARTINEZ MD Finalized Date/Time: 04/29/20 10:21:44 Pt. Name: RAJIV TOVAR/Sex: 1995 Female Med Rec #: [id number] Physician: Ezequiel MARTINEZ MD Financial #: [id number] Pt. Type: O Room/Bed: / Admit/Disch: 04/29/20 [...] By: Marielle Pineda RN 04/29/20 10:21 Normal [facility] Monitor Recordon 04-29-2020 Monitor Record [id number]# 1.00CD:127 Normal [facility] Outpatient Surgery Discharge Instructionon 04-29-2020 Outpatient Surgery Discharge Instruction [place] [id number] Patient Discharge Instructions PERSON INFORMATION Name: RAJIV [...] Aiden IZQUIERDO [address], [address] [facility] [place] [address] Business (1) With: Address: When: [facility] [address], [place] [address] Within 2 weeks Type Location [facility] Follow Up [facility] 05/16/2020 1:00 PM 05/16/2020 1:15 PM Confirmed Pharmacy Information: Thank you for choosing [facility] HERE ARE THE MEDICATION CHANGES THAT OCCURRED [...] Refills: 0. PATIENT EDUCATION INFORMATION Instructions: Normal [facility] Patient Education - Texton 1 06-29-2019 Patient Education - Text Normal [facility] Priority Order-Mitchell 2019 Priority Order-STAT Comment Invalid Interpretation Code [facility] Comment on above: Result Comment: Rece ived Performed at: [facility] [address] [place], [place] [id number] MD Indira Washington Performed By: #### 2 [id number], SARS-CoV-2, MARY #### [facility] [address] [place] [address] SARS-CoV-2, NAAon 04-23-2020 SARS-CoV-2 (COVID-19) RNA MARY+probe Ql (Resp) Not detected Invalid Interpretation Code Not Detected [facility] Comment on above: Result Comment: This nucleic acid amplification test was developed and its performance characteristics determined by [employer]. Nucleic acid amplification tests include PCR and [...] detected) result in this assay. Performed at: [facility] [address] [facility] [place] [id number] MD Indira Washington Performed By: #### 2 [id number], SARS-CoV-2, MARY #### [facility] [address] [place] [id number] Ambulatory Clinical Summaryo n 04-20-2020 Ambulatory Clinical Summary {[id number]}CD:[id number] Normal [facility] Coding Summary.on 04-20-2020 Coding Summary. CODING DATE: 04/20/2020 FINAL [facility] STATUS: Home (Routine DC) PAYOR: [place] [employer] DESCRIPTION 5522 Level 2 Imaging without [...] Revised Date Saved: 04/20/2020 07:55 am Normal [facility] Consent for Procedure/Surger yon 04-20-2020 Consent for Procedure/Surgery [id number]#1 .00CD:127 Normal [facility] Gastroenterology Office/Clin ic Noteon 04-20-2020 Gastroenterology Office/Clinic Note Chief Complaint f/u to ER RUQ HPI Staff This is a 24 year old female who presents today for a follow up for an ED visit for RUQ pain. History of Present Illness 24 years old white female with no significant past medical history except for anxiety, referred to me from [facility] to be evaluated for right upper quadrant abdominal pain, she reports right upper quadrant abdominal pain, started 6 weeks ago, sporadic, moderate in nature except for the last time when it was severe for which she went to [facility] ER, she had normal CBC, CMP [...] Daily, # 30 cap(s), Refills(s) 2, [id number], cm, 04/20/20 10:06:00 EDT, Height/Length Dosing, 59.5, kg, 04/20/20 10:06:00 EDT, Weight Dosing EGD Endoscopy (Hospital Procedure) 2. Anxiety (F41.9: Anxiety disorder, unspecified) 3. Nausea (R11.0: Nausea) Ordered: omeprazole, 40 mg = 1 cap(s), Oral, Daily, # 30 cap(s), Refills(s) 2, [id number] 168, cm, 04/20/20 10:06:00 EDT, Height/Length Dosing, 59.5, kg, 04/20/20 10:06:00 EDT, Weight Dosing EGD Endoscopy (Hospital Procedure) Follow-up With When Contact Information Ezequiel MARTINEZ MD Within 2 weeks [facility] [address] [place] [address]- Additional Instructions: Patient Education Abdominal [...] Family History Family history is negative Normal [facility] Comment on above: Result Comment: Elec tronically [...] directed by your caregiver. ? Only take cmdt-omv-wdxlyae or prescription medicines for pain, discomfort, or [...] Document Reviewed: 01/26/2009 ExitCare? Patient Information ?[address] [facility]. Family Medicine Abdominal Pain Abdominal pain can [...] directed by your caregiver. ? Only take uacx-xcm-rkrjyvl or prescription medicines for pain, discomfort, or [...] Document Reviewed: 01/26/2009 ExitCare? Patient Information ?2013 retickr. Normal [facility] Physician Orderon 04-20-2020 Physician Order [id number]# 1.00CD:127 Normal [facility] Physician Order [id number]#1. 00CD:127 Normal [facility] Auto Diffon 04-19-2020 Basophils/100 WBC (Bld) 0.6 % Normal 0.0-2.0 [facility] Comment on above: Order Comment: Order Added by Discern Expert. Performed By: #### 2 [id number] #### [facility] [address] [place] [address] Basophils/Leukocytes Auto (Bld) [Pure # fraction] 0.0 E9/L Normal 0.0-0.2 [facility] Comment on above: Order Comment: Order Added by Discern Expert. Performed By: #### 2 [id number] #### [facility] [address] [place] [address] Eosinophils/100 WBC (Bld) 0.2 % Normal 0.0-8.0 [facility] Comment on above: Order Comment: Order Added by Discern Expert. Performed By: #### 2 [id number] #### [facility] [address] [place] [address] Eosinophils/Leukocyt es Auto (Bld) [Pure # fraction] 0.0 E9/L Normal 0.0-0.5 [facility] Comment on above: Order Comment: Order Added by Discern Expert. Performed By: #### 2 [id number] #### [facility] [address] [place] [address] Lymphocytes/100 WBC (Bld) 34.4 % Normal 14.0-50.0 [facility] Comment on above: Order Comment: Order Added by Discern Expert. Performed By: #### 2 [id number] #### [facility] [address] [place] [address] Lymphocytes/Leukocyt es Auto (Bld) [Pure # fraction] 2.5 E9/L Normal 1.0-4.0 [facility] Comment on above: Order Comment: Order Added by Discern Expert. Performed By: #### 2 [id number] #### [facility] [address] [place] [address] Monocytes/100 WBC (Bld) 6.1 % Normal 4.0-14.0 [facility] Comment on above: Order Comment: Order Added by Discern Expert. Performed By: #### 2 [id number] #### [facility] [address] [place] [address] Monocytes/Leukocytes Auto (Bld) [Pure # fraction] 0.4 E9/L Normal 0.2-1.0 [facility] Comment on above: Order Comment: Order Added by Discern Expert. Performed By: #### 2 [id number] #### [facility] [address] [place] [address] Neutrophils/100 WBC (Bld) 58.7 % Normal 36.0-75.0 [facility] Comment on above: Order Comment: Order Added by Discern Expert. Performed By: #### 2 [id number] #### [facility] [address] [place] [address] Neutrophils/Leukocyt es Auto (Bld) [Pure # fraction] 4.2 E9/L Normal 2.0-7.5 [facility] Comment on above: Order Comment: Order Added by Discern Expert. Performed By: #### 2 [id number] #### [facility] [address] [place] [address] BMPon 04-19-2020 Creatinine [Mass/Vol] 0.8 mg/dL Normal 0.5-1.3 [facility] Comment on above: Performed By: #### 2 [id number] #### [facility] [address] [place] [address] Urea nitrogen [Mass/Vol] 12 mg/dL Normal 5-21 [facility] Comment on above: Performed By: #### 2 [id number] #### [facility] [address] [place] [address] Urea nitrogen/Creatinine [Mass ratio] 15 No Units Normal -20 [facility] Comment on above: Performed By: #### 2 [id number] #### [facility] [address] [place] [address] Anion gap [Moles/Vol] 11 mmol/L Normal 6-16 [facility] Comment on above: Performed By: #### 2 [id number] #### [facility] [address] [place] [address] Calcium [Mass/Vol] 9.7 mg/dL Normal 8.9-11.1 [facility] Comment on above: Performed By: #### 2 [id number] #### [facility] [address] [place] [address] Chloride [Moles/Vol] 103 mmol/L Normal 101-111 [facility] Comment on above: Performed By: #### 2 [id number] #### [facility] [address] [place] [address] CO2 [Moles/Vol] 27 mmol/L Normal 21-[address] [facility] Comment on above: Performed By: #### 2 [id number] #### [facility] [address] [place] [address] Glucose [Mass/Vol] 97 mg/dL Normal 55-199 [facility] Comment on above: Result Comment: If t his glucose result represents a fasting glucose, interpretation should refer to the following reference range: 55-99 mg/dL Performed By: #### 2 [id number] #### [facility] [address] [place] [address] Potassium [Moles/Vol] 3.5 mmol/L Normal 3.5-5.3 [facility] Comment on above: Performed By: #### 2 [id number] #### [facility] [address] [place] [address] Sodium [Moles/Vol] 137 mmol/L Normal 135-145 [facility] Comment on above: Performed By: #### 2 [id number] #### [facility] [address] [place] [address] CBC w/ Auto Diffon Erythrocyte distribution width (RBC) [Ratio] 13.3 % Normal 10.9-14.2 [facility] Comment on above: Performed By: #### 2 [id number] #### [facility] [address] [place] [address] Hematocrit (Bld) [Volume fraction] 37.6 % Normal 34.0-46.0 [facility] Comment on above: Performed By: #### 2 [id number] #### [facility] [address] [place] [address] Hemoglobin (Bld) [Mass/Vol] 13.4 g/dL Normal 12.0-16.0 [facility] Comment on above: Performed By: #### 2 [id number] #### [facility] [address] [place] [address] MCH (RBC) [Entitic mass] 31.9 pg Normal 27.0-34.0 [facility] Comment on above: Performed By: #### 2 [id number] #### [facility] [address] [place] [address] MCHC (RBC) [Mass/Vol] 35.7 g/dL Normal 31.4-36.0 [facility] Comment on above: Performed By: #### 2 [id number] #### [facility] [address] [place] [address] MCV (RBC) [Entitic vol] 89.2 fL Normal 80.0-100.0 [facility] Comment on above: Performed By: #### 2 [id number] #### [facility] [address] [place] [address] Platelet mean volume (Bld) [Entitic vol] 9.4 fL Normal 6.4-10.8 [facility] Comment on above: Performed By: #### 2 [id number] #### [facility] [address] [place] [address] Platelets (Bld) [#/Vol] 219.0 E9/L Normal 150.0-500.0 [facility] Comment on above: Performed By: #### 2 [id number] #### [facility] [address] [place] [address] RBC (Bld) [#/Vol] 4.2 E12/L Low 4.3-5.9 [facility] Comment on above: Performed By: #### 2 [id number] #### [facility] [address] [place] [address] WBC corrected for nucl RBC Auto (Bld) [#/Vol] 7.2 E9/L Normal 4.0-11.0 [facility] Comment on above: Performed By: #### 2 [id number] #### [facility] [address] [place] [address] Consent for Treatmenton 03-25 Consent for Treatment [id number] .00CD:127 Normal [facility] Discharge Instructionson Discharge Instructions [id number]# 1.00CD:127 Normal [facility] ED Clinical Summaryon 2019 ED Clinical Summary [address] [address] ED Clinical Summary Person Information Name: RAJIV TOVAR/JonathanKaye Age: 24 Years : 1995 Sex: Female Language: Guatemalan PCP: Alon Weber MD Marital Status: Single [...] 08:58:55 04/19/2020 08:58:55 04/19/2020 08:58:55 ADDRESS: [address] [facility] [id number] PHYS DOC NOTES: Addendum by Laureano Phillip DO on April 19, 2020 08:26:02 EDT MEDICAL INFORMATION: Prescriptions Given: New Medications [id number], [address], [place] [id number], [phone] dicyclomine (dicyclomine 20 mg Tab) 1 Tablets By Mouth 3 times a day for 7 Days. Refills: 0. ondansetron (Zofran ODT 4 mg Tab) 1 Tablets By Mouth 3 times a day. Refills: 0. PATIENT EDUCATION INFORMATION: Instructions: Cholelithiasis Follow up: With: Address: When: [facility], [address] [place] [address] Business (1) In 3 days 04/22/2020 DIAGNOSIS: 1:Abdominal pain; Biliary colic; Gall stone; Nausea Normal [facility] ED Note-Nursingon 04-19-2020 ED Note-Nursing Report received from Zacarias Cuevas RN. Patient resting on cart. Updated on plan of care. Denies any needs at this time. Call light in reach. Normal [facility] ED Note-Physicianon 04-19-20 ED Note-Physician Basic Information [...] Diagnosis: Abdominal pain, cholelithiasis, biliary colic Normal [facility] Comment on above: Result Comment: Elec tronically [...] medicine. HOME CARE INSTRUCTIONS ? Only take wtum-rpa-zimvlyh or prescription medicines for pain, discomfort, or [...] Document Reviewed: 12/02/2013 ExitCare? Patient Information ?2014 retickr. This information is not intended to replace advice given to you by your health care provider. Make sure you discuss any questions you have with your health care provider. Normal [facility] ED Patient Summaryon 020 ED Patient Summary [address] [address] Patient Discharge Instructions Person Information Name: RAJIV TOVAR Age: 24 Years Arrival Date: 04/19/2020 06:10:12 Discharge Diagnosis: 1:Abdominal pain; Biliary colic; Gall stone; Nausea Primary Care Physician: Alon Weber MD Provider Information Primary Provider: Susana Belcher M.D. [employer] Utility Worker:None The exam and treatment you received in the Emergency Department were for an urgent problem and are not intended as complete care. It is important that you follow up with a doctor, nurse practitioner, or physician?s printing bindery assistant for ongoing care. If your symptoms become worse or you do not improve as expected and you are unable to reach your usual health care provider, you should return to the Emergency Department. We are available 24 hours a day. RAJIV TOVAR has been given the following list of patient education materials, prescriptions and follow-up instructions: Follow-up Instructions: With: Address: When: [facility], [address] [place] [address] Business (1) In 3 days 04/22/2020 In the event that this physician does not participate in your insurance network, please consult with your insurance company to find a nearby participating provider. Patient Education Materials: Cholelithiasis A MESSAGE TO ALL PATIENTS REGARDING OPIOIDS PRESCRIPTION OPIOIDS: WHAT YOU NEED TO KNOW Prescription opioids can be used to help relieve xluitqqt-qr-bmorcm pain and are often prescribed following a [...] be struggling with addiction, tell your health grounds caretaker and ask for guidance or call [facility] National Helpline at 0-700-8 (more content not included)... Normal [facility] Hep Func Panelon 04-19-2020 Bilirubin.indirect [Mass or moles/Vol] UTC Abnormal 0.1-0.9 [facility] Comment on above: Result Comment: Resu lt verified by Discern Rule. Performed result UTC (Unable to Calculate) was sent as an Alpha code due the inability to calculate a valid numeric value. Performed By: #### 2 [id number] #### [facility] [address] [place] [address] Albumin [Mass/Vol] 4.3 g/dL Normal 3.3-5.0 [facility] Comment on above: Performed By: #### 2 [id number] #### [facility] [address] [place] [address] Albumin/Globulin (S) [Mass conc ratio] 1.5 Normal 1.1-2.2 [facility] Comment on above: Performed By: #### 2 [id number] #### [facility] [address] [place] [address] ALP [Catalytic activity/Vol] 77 Int._Unit/L Normal 21-98 [facility] Comment on above: Performed By: #### 2 [id number] #### [facility] [address] [place] [address] ALT No additional P-5'-P [Catalytic activity/Vol] 59 Int._Unit/L High 6-46 [facility] Comment on above: Performed By: #### 2 [id number] #### [facility] [address] [place] [address] AST [Catalytic activity/Vol] 36 Int._Unit/L Normal 5-43 [facility] Comment on above: Performed By: #### 2 [id number] #### [facility] [address] [place] [address] Bilirubin [Mass/Vol] 0.4 mg/dL Normal 0.0-1.1 [facility] Comment on above: Performed By: #### 2 [id number] #### [facility] [address] [place] [address] Bilirubin.direct [Mass/Vol] mg/dL Normal 0.1-0.4 [facility] Comment on above: Performed By: #### 2 [id number] #### [facility] [address] [place] [address] Globulin (S) [Mass/Vol] 2.8 g/dL Normal 1.4-4.0 [facility] Comment on above: Performed By: #### 2 [id number] #### [facility] [address] [place] [address] Protein [Mass/Vol] 7.1 g/dL Normal 6.0-7.8 [facility] Comment on above: Performed By: #### 2 [id number] #### [facility] [address] [place] [address] Lipase Levelon 04-19-2020 Lipase [Catalytic activity/Vol] 43 U/L Normal 13-58 [facility] Comment on above: Performed By: #### 2 [id number] #### [facility] [address] [place] [address] PT & PTTon 04-19-2020 aPTT Coag (PPP) [Time] 30.2 second(s) Normal 25.1-36.5 [facility] Comment on above: Result Comment: Hepa rin therapeutic range (represented by Anti-Factor Xa activity of 0.2 - 0.4 U/mL) corresponds to PTT of 56.6 - 109.0 sec. Performed By: #### 2 [id number] #### [facility] [address] [place] [address] INR Coag (PPP) [Relative time] 1.0 {INR} Invalid Interpretation Code [facility] Comment on above: Result Comment: INR results are specifically intended to assess patients stabilized on long-term Anticoagulation therapy suggested INR?s ?Less Intensive Anticoagulation? 2.0 ? 3.0 Conventional Range 3.0 ? 4.5 Performed By: #### 2 [id number] #### [facility] [address] [place] [address] PT Coag (PPP) [Time] 11.8 second(s) Normal 10.2-12.9 [facility] Comment on above: Performed By: #### 2 [id number] #### [facility] [address] [place] [address] Prescriptions/Work Noteson 1 Prescriptions/Work Notes [id number]# 1.00CD:127 Normal [facility] U BetaHcg Qualon 04-19-2020 HCG.beta subunit (U) [Moles/Vol] Negative Normal [facility] Comment on above: Performed By: #### 2 [id number] #### [facility] [address] [place] [address] UA With Cult Reflexon 2019 Bacteria LM Ql (Urine sed) TRACE Normal Trace [facility] Comment on above: Performed By: #### 2 [id number] #### [facility] [address] [place] [address] Bilirubin Ql (U) Negative Normal Negative [facility] Comment on above: Performed By: #### 2 [id number] #### [facility] [address] [place] [address] Clarity (U) CLEAR Normal Clear [facility] Comment on above: Performed By: #### 2 [id number] #### [facility] [address] [place] [address] Color (U) YELLOW Normal Yellow [facility] Comment on above: Performed By: #### 2 [id number] #### [facility] [address] [place] [address] Crystals LM Ql (Urine sed) Present Normal [facility] Comment on above: Performed By: #### 2 [id number] #### [facility] [address] [place] [address] Epithelial cells.squamous LM.HPF (Urine sed) [#/Area] 3-4 Normal 0-2 [facility] Comment on above: Performed By: #### 2 [id number] #### [facility] [address] [place] [address] Glucose Test strip (U) [Mass/Vol] Negative Normal Negative [facility] Comment on above: Performed By: #### 2 [id number] #### [facility] [address] [place] [address] Hemoglobin Ql (U) TRACE Abnormal Negative [facility] Comment on above: Performed By: #### 2 [id number] #### [facility] [address] [place] [address] Ketones (U) [Mass/Vol] Negative Normal Negative [facility] [facility] Comment on above: Performed By: #### 2 [id number] #### [facility] [address] [place] [address] [place].plasma/Lithi um.RBC (Bld) [Mass ratio] 0-3 Normal 0-3 [facility] Comment on above: Performed By: #### 2 [id number] #### [facility] [address] [place] [address] Nitrite Ql (U) Negative Normal Negative [facility] Comment on above: Performed By: #### 2 [id number] #### [facility] [address] [place] [address] pH (U) 6.5 [pH] Invalid Interpretation Code 5.0-9.0 [facility] Comment on above: Performed By: #### 2 [id number] #### [facility] [address] [place] [address] Protein (U) [Mass/Vol] Negative Normal Negative [facility] Comment on above: Performed By: #### 2 [id number] #### [facility] [address] [place] [address] Specific gravity (U) [Rel density] 1.025 Invalid Interpretation Code 1.005-1.030 [facility] Comment on above: Performed By: #### 2 [id number] #### [facility] [address] [place] [address] UA Spec Desc Clean Catch Normal [facility] Comment on above: Performed By: #### 2 [id number] #### [facility] [address] [place] [address] Urobilinogen Qn (U) 0.2 {Arnie'U}/dL Normal 0.0-1.0 [facility] Comment on above: Performed By: #### 2 [id number] #### [facility] [address] [place] [address] WBC Auto Ql (U) Negative Normal Negative [facility] Comment on above: Performed By: #### 2 [id number] #### [facility] [address] [place] [address] WBC LM.HPF (Urine sed) [#/Area] 0-5 Normal 0-5 [facility] Comment on above: Performed By: #### 2 [id number] #### [facility] [address] [place] [address] US Abdomen, Limitedon 2019 US Abdomen, Limited [...] M.D. Transcribed by: OLGA Technologist: RENETTA Kaplan [facility] eGFRon 04-19-2020 GFR/1.73 sq M.predicted among blacks MDRD (S/P/Bld) [Vol rate/Area] mL/min/{1.73_m2} Normal >=59 [facility] Comment on above: Order Comment: Order added by Discern Expert. Result Comment: eGFR is race adjusted. AA=. Performed By: #### 2 [id number] #### [facility] [address] [place] [address] GFR/1.73 sq M.predicted among non-blacks MDRD (S/P/Bld) [Vol rate/Area] mL/min/{1.73_m2} Normal >=59 [facility] Comment on above: Order Comment: Order added by Discern Expert. Result Comment: [employer]namental [employer] Worker bib kidney disease could be indicated at eGFR's of less than 60 mL/min/1.73m2. Kidney failure is indicated at less than 15 mL/min/1.73m2. Performed By: #### 2 [id number] #### [facility] [address] [place] [address] Vital Signs Date Time Vital Sign Value Performing Clinician William colmenares 10-06-2024 14:25-0400 Body height 167.6 cm Jamar Austin MD Work Phone: [facility] 10-06-2024 14:25-0400 Body mass index (BMI) [Ratio] 28.08 kg/m2 Jamar Austin MD Work Phone: [facility] 10-06-2024 14:25-0400 Body weight 78.93 kg Jamar Austin MD Work Phone: [facility] 10-06-2024 14:25-0400 Diastolic blood pressure 74 mm[Hg] Jamar Austin MD Work Phone: [facility] 10-06-2024 14:25-0400 Heart rate 88 /min Jamar Austin MD Work Phone: [facility] 10-06-2024 14:25-0400 Respiratory rate 18 /min Jamar Austin MD Work Phone: [facility] 10-06-2024 14:25-0400 SaO2% (BldA) [Mass fraction] 98 % Jamar Austin MD Work Phone: [facility] 10-06-2024 14:25-0400 Systolic blood pressure 100 mm[Hg] Jamar Austin MD Work Phone: [facility] 03-03-2024 10:52-0400 Body mass index (BMI) [Ratio] 24.37 kg/m2 Flynn Dragan DO Work Phone: [facility] 03-03-2024 10:52-0400 Body weight 68.49 kg Flynn Dragan DO Work Phone: [facility] 03-03-2024 10:52-0400 Diastolic blood pressure 70 mm[Hg] Flynn Dragan DO Work Phone: [facility] 03-03-2024 10:52-0400 Systolic blood pressure 112 mm[Hg] Flynn Dragan DO Work Phone: [facility] Encounters Encounter Date Encounter Type Care Provider Facility Start: 10-06-2024 End: 10-06-2024 Office outpatient new 45 minutes Jamar Austin MD Work Phone: [facility] Comment on above: Hair loss (Primary D x); Weight gain; Encounter for dietary consultation; Vitamin D deficiency Start: 10-06-2024 End: 10-06-2024 ambulatory JAMAR AUSTIN Not Available Start: 10-06-2024 End: 10-06-2024 Bamboo flowsmena Austin MD Work Phone: [facility] Start: 10-06-2024 End: 10-06-2024 Bamboo flowsmena Austin MD Work Phone: [facility] Start: 09-17-2024 End: 09-17-2024 Office outpatient visit 15 minutes My Singh MD Work Phone: [facility] Comment on above: Herpesviral vesicula r dermatitis (Primary Dx) Start: 09-17-2024 End: 09-17-2024 ambulatory MY SINGH Not Available Start: 09-17-2024 End: 09-17-2024 Bamboo flowsmena Singh MD Work Phone: [facility] Start: 09-17-2024 End: 09-17-2024 Bambowesley flowsmena Singh MD Work Phone: [facility] Start: 03-09-2024 End: 03-09-2024 ambulatory Harley Maldonado MD Facility:[facility] Start: 03-03-2024 End: 03-03-2024 Bamboo flowsheet Flynn Dragan DO Work Phone: [facility] Start: 03-03-2024 End: 03-03-2024 Bamboo flowsheet Flynn Dragan DO Work Phone: [facility] Start: 03-03-2024 End: 03-03-2024 Clinisync Result Encounter Flynn Dragan DO Work Phone: [facility] External Department Unsolicited Start: 03-03-2024 End: 03-03-2024 Office outpatient visit 15 minutes Flynn Dragan DO Work Phone: [facility] Comment on above: Hormone imbalance; Hot flashes; Rolle; Weight gain; PCOS (polycystic ovarian syndrome) Start: 03-03-2024 End: 03-03-2024 ambulatory FLYNN ARCHIBALD Not Available Start: 02-17-2024 End: 02-17-2024 ambulatory Harley Maldonado MD Facility:[facility] Start: 01-13-2024 End: 01-13-2024 ambulatory Harley Maldonado MD Facility:[facility] Start: 12-23-2023 End: 12-23-2023 ambulatory Harley Maldonado MD Facility:[facility] Start: 11-25-2023 End: 11-25-2023 ambulatory Harley Maldonado MD Facility:[facility] Start: 10-21-2023 End: 10-21-2023 ambulatory LEWIS SEWELL Not Available Start: 08-08-2023 Bamboo flowsheet My ledesma MD Work Phone: [facility] Start: 08-08-2023 Bamboo flowsmena ledesma MD Work Phone: [facility] Start: 08-08-2023 End: 08-08-2023 Office outpatient visit [...] End: 07-04-[address] AKASH MARTINEZ Facility:[facility] Procedures Date Procedure Procedure Detail Performing Clinician Start: 03-03-2024 ALL CBC WITH AUTO DIFF Flynn Archibald DO Work Phone: Plan of Treatment Date Care Activity Detail Author Start: 09-15-2025 End: 09-15-2025 Patient encounter procedure 09/15/2025 2:20 PM EDT Office Visit [facility] [address] [place] [id number] My Singh MD [address] [place] [address] [facility] Start: 10-06-2024 End: 10-06-2024 Patient encounter procedure 10/06/2024 2:20 PM EDT Office Visit [facility] [address] [place] [address] Jamar Austin MD [address] [place], [place] [id number] Arrived [facility] Comment on above: Arrived Start: 10-06-2024 End: 10-06-2025 25-hydroxyvitamin D3 [Mass/volume] in Serum or Plasma Vitamin D 25 hydroxy Lab Routine Vitamin D deficiency Expected: 10/06/2024 (Approximate), Expires: 10/06/2025 [facility] Comment on above: Expected: 10/06/2024 (Approximate), Expi res: 10/06/2025 Start: 10-06-2024 End: 10-06-2025 Basic metabolic 1998 panel - Serum or Plasma Basic metabolic panel Lab Routine Encounter for dietary consultation Expected: 10/06/2024 (Approximate), Expires: 10/06/2025 [facility] Comment on above: Expected: 10/06/2024 (Approximate), Expi res: 10/06/2025 Start: 10-06-2024 End: 10-06-2025 Cortisol AM Cortisol AM Lab Routine Weight gain Expected: 10/06/2024 (Approximate), Expires: 10/06/2025 [facility] Comment on above: Expected: 10/06/2024 (Approximate), Expi res: 10/06/2025 Start: 10-06-2024 End: 10-06-2025 Thyrotropin [Units/volume] in Serum or Plasma TSH Lab Routine Hair loss Weight gain Expected: 10/06/2024 (Approximate), Expires: 10/06/2025 [facility] Comment on above: Expected: 10/06/2024 (Approximate), Expi res: 10/06/2025 Start: 10-06-2024 End: 10-06-2025 Thyroxine (T4) free [Mass/volume] in Serum or Plasma T4, free Lab Routine Hair loss Weight gain Expected: 10/06/2024 (Approximate), Expires: 10/06/2025 [facility] Comment on above: Expected: 10/06/2024 (Approximate), Expi res: 10/06/2025 Start: 10-06-2024 End: 10-06-2025 Triiodothyronine (T3) Free [Mass/volume] in Serum or Plasma T3, free Lab Routine Hair loss Weight gain Expected: 10/06/2024 (Approximate), Expires: 10/06/2025 [facility] Work Phone: Comment on above: Expected: 10/06/2024 (Approximate), Expi res: 10/06/2025 Start: 09-17-2024 End: 09-17-2024 Patient encounter procedure 09/17/2024 2:20 PM EDT Office Visit [facility] [address] [place] [address] My Singh MD [address] [place], [place] [id number] Arrived [facility] Comment on above: Arrived Start: 08-10-2024 End: 08-10-2024 Patient encounter procedure 08/10/2024 1:00 PM EST Office Visit [facility] [address] [place] [address] My Singh MD [address] [place], [place] [phone] [facility] Start: 03-18-2024 End: 03-18-2024 Patient encounter procedure 03/18/2024 8:00 AM EDT Office Visit [facility] [address] [facility] [place] [address] Flynn Archibald, DO [address] [place] [address] [facility] Start: 03-03-2024 End: 03-03-2025 DHEA DHEA Lab Routine PCOS (polycystic ovarian syndrome) Expected: 03/03/2024 (Approximate), Expires: 03/03/2025 [facility] Comment on above: Expected: 03/03/2024 (Approximate), Expi res: 03/03/2025 Start: 03-03-2024 End: 03-03-2024 Patient encounter procedure 03/03/2024 10:40 AM EDT Office Visit [facility] [address] [facility] [place] [address] Flynn Archibald, DO [address] [place] [address] Arrived [facility] Comment on above: Arrived Start: 08-22-2023 End: 08-22-2023 Patient encounter procedure 08/22/2023 11:50 AM EST Office Visit [facility] [address] [facility] [place] [phone] Flynn Archibald, DO [address] [place] [address] [address] [facility] OB CBC W Auto Different ial panel - Blood CBC and differential Lab Routine PCOS (polycystic ovarian syndrome) Ordered: 03/03/2024 [facility] Comment on above: Ordered: 03/03/2024 DHEA-sulfate DHEA-sulfate Lab Routine PCOS (polycystic ovarian syndrome) Ordered: 03/03/2024 [facility] Comment on above: Ordered: 03/03/2024 Estradiol Estradiol Lab Ro utine Hormone imbalance Hot flashes Weight gain PCOS (polycystic ovarian syndrome) Ordered: 03/03/2024 [facility] Comment on above: Ordered: 03/03/2024 Follicle stimulating hormone Follicle stimulating hormone Lab Routine PCOS (polycystic ovarian syndrome) Ordered: 03/03/2024 [facility] Comment on above: Ordered: 03/03/2024 hCG, quantitative, hCG, quantitative, Lab Routine PCOS (polycystic ovarian syndrome) Ordered: 03/03/2024 [facility] Work Phone: Comment on above: Ordered: 03/03/2024 Hemoglobin A1c/Hemoglobin.total in Blood Hemoglobin A1c Lab Routine Hormone imbalance Hot flashes Weight gain PCOS (polycystic ovarian syndrome) Ordered: 03/03/2024 [facility] Comment on above: Ordered: 03/03/2024 Luteinizing hormone Luteinizing hormone Lab Routine PCOS (polycystic ovarian syndrome) Ordered: 03/03/2024 [facility] Comment on above: Ordered: 03/03/2024 Progesterone Progesterone Lab Routine Hormone imbalance Hot flashes Weight gain PCOS (polycystic ovarian syndrome) Ordered: 03/03/2024 [facility] Comment on above: Ordered: 03/03/2024 Thyrotropin [Units/volume] in Serum or Plasma TSH Lab Routine PCOS (polycystic ovarian syndrome) Ordered: 03/03/2024 [facility] Comment on above: Ordered: 03/03/2024 Thyroxine (T4) free [Mass/volume] in Serum or Plasma T4, free Lab Routine PCOS (polycystic ovarian syndrome) Ordered: 03/03/2024 [facility] Comment on above: Ordered: 03/03/2024 Payers Date Payer Category Payer [facility] [id number] 2024 Unknown [id number] 2017 Unknown [id number] 1993 Unknown [id number] 2.16.840.1.335440.3.579.2 .593 1993 Unknown [id number] 2.16.840.1.666445.3.579.2 .593 1993 Unknown [id number] 2.16.840.1.956821.3.579.2 .593 1993 Unknown [id number] 2.16.840.1.084690.3.579.2 .593 1993 Unknown [id number] 2.16.840.1.041408.3.579.2 .593 1993 Unknown [id number] 2.16.840.1.072833.3.579.2 .196 1993 Unknown [id number] 2.16.840.1.705559.3.579.2 .196 1993 Unknown [id number] 2.16.840.1.844378.3.579.2 .196 1993 Unknown [id number] 2.16.840.1.485482.3.579.2 .196 1993 Unknown [id number] 2.16.840.1.108985.3.579.2 .196 1993 Unknown [id number] 2.16.840.1.675554.3.579.2 .1259 1993 Unknown [id number] 2.16.840.1.192041.3.579.2 .1259 1993 Unknown [id number] 2.16.840.1.944370.3.579.2 .1259 1993 Unknown [id number] 2.16.840.1.696148.3.579.2 .1259 1959 Unknown [id number] Social History Date Type Detail Facility [facility] Start: 1995 Sex Assigned At Not on file N [facility] Start: 08-08-2023 End: 09-17-2024 Gender identity Not on file [facility] Start: 08-08-2023 [facility] Never [facility] tobacco [facility] Start: 08-08-2023 Tobacco use and exposure Smokeless t obacco non-user [facility] Start: 08-08-2023 End: 09-17-2024 History of Social function [facility] Start: 10-21-2023 End: 09-17-2024 Alcoholic beverage intake Lifetime non-drinker (finding) [facility] Clinical Notes 05-02-2020 to 10-06-2024 Jamar Austin MD - 10/06/2024 2:20 PM Cara Singh MD - 09/17/2024 2:20 PM Tereza Morelos LPN - 03/03/2024 10:40 AM Cara Singh MD - 08/08/2023 9:50 AM EST Note Date & Type Note Facility 10-06-2024 History of Present illness Narrative Rajiv Tovar is a 29 y.o. female Jamar Austin MD presents with chief complaint of Thyroid Problem (NEW MAR 17 LABS NO REFERRAL) HPI: HPI: 09/2024 new patient came by herself due to weight gain, hair loss, fatigue not doing well, she gained almost 30 lb over last 1 year, but she also started Abilify by her psychiatrist, also she using control she has 2 kids 9 and 5 years old, denied thyroid problem before. SUBJECTIVE: MEDICATIONS: Current Outpatient Medications Medication Instructions ARIPiprazole (Abilify) 5 MG tablet Every 24 hours busPIRone (Buspar) 15 MG tablet Every 12 hours drospirenone-ethinyl estradiol (Loreto, Ocella) 3-0.03 MG tablet 1 tablet, Oral, Every morning hydrOXYzine pamoate (Vistaril) 50 MG capsule hyoscyamine (Levsin) 0.125 MG SL tablet DISSOLVE 1 TABLET UNDER TONGUE 4 TIMES DAILY NEEDED ibuprofen 800 MG tablet 1 tablet, Every 8 hours PRN lamoTRIgine (LaMICtal) 25 MG tablet metFORMIN XR (GLUCOPHAGE-XR) 500 mg, Oral, Daily with evening meal, Do not crush, chew, or split. norethindrone-ethinyl estradiol-iron (Lo Loestrin) 1 MG-10 MCG / 10 MCG tablet 1 tablet, Daily ondansetron ODT (Zofran-ODT) 4 MG disintegrating tablet Every 8 hours prazosin (Minipress) 1 MG capsule Every 24 hours traZODone (Desyrel) 100 MG tablet Every 24 hours valACYclovir (Valtrex) 500 MG tablet Take 1 tablet daily, by mouth, 30 days venlafaxine XR (Effexor XR) 37.5 MG 24 hr tablet 1 tablet, Daily ALLERGIES: Allergies Allergen Reactions Penicillin G Other Reaction(s): hives Penicillins Hives Sulfa Antibiotics Other Reaction(s): hives Penicillin G Sodium Rash Sulfamethoxazole-Trimethoprim Rash Past Medical History: Diagnosis Date Anxiety and depression (CMS/HCC) ASCUS of cervix with negative high risk HPV BMI 22.0-22.9, adult Chronic pain Endometriosis History of cholecystectomy Hyperthyroidism (CMS/HCC) Right ovarian cyst Past Surgical History: Procedure Laterality Date SECTION, LOW TRANSVERSE 07/23/2019 CHOLECYSTECTOMY 05/10/2020 LAPAROSCOPY DIAGNOSTIC / BIOPSY / ASPIRATION / LYSIS 10/11/2023 PELVIC LAPAROSCOPY 2017 diagnostic lap with drainage of right ovarian fluid REVIEW OF SYMPTOMS: 14 POINT OF SYSTEM REVIEWED AND NEGATIVE OBJECTIVE: Visit Vitals BP 100/74 Pulse 88 Resp 18 Ht 5' 6 Wt 174 lb SpO2 98% BMI 28.08 kg/m OB Status Having periods Smoking Status Never BSA 1.92 m Physical Exam Constitutional: Appearance: Normal appearance. She is normal weight. HENT: Head: Normocephalic and atraumatic. Right Ear: External ear normal. Nose: Nose normal. Mouth/Throat: Pharynx: Oropharynx is clear. Eyes: Extraocular Movements: Extraocular movements intact. Pupils: Pupils are equal, round, and reactive to light. Cardiovascular: Rate and Rhythm: Normal rate and regular rhythm. Pulmonary: Effort: Pulmonary effort is normal. Abdominal: General: Abdomen is flat. Palpations: Abdomen is soft. Musculoskeletal: General: Normal range of motion. Skin: General: Skin is warm. Neurological: General: No focal deficit present. Mental Status: She is alert. Psychiatric: Mood and Affect: Mood normal. Behavior: Behavior normal. ASSESSMENT AND PLAN: Assessment/Plan Diagnoses and all orders for this visit: Hair loss - T3, free; Future - T4, free; Future - TSH; Future We will check thyroid function test. Weight gain - T3, free; Future - T4, free; Future - TSH; Future - Cortisol AM; Future I will check thyroid function tests and communicate results for her, also check cortisol in the morning if it is high then we will do 1 mg DST rule out [place] syndrome. Encounter for dietary consultation - Basic metabolic panel; Future Vitamin D deficiency - Vitamin D 25 hydroxy; Future I will check the level and start supplements if needed. Follow up in about 1 year (around 10/06/2025). documented in this encounter [facility] 09-17-2024 History of Present illness Narrative Images from the original note were not included. Follow up Diagnosis: HSV Location: left hand Last visit: 1 year ago Symptoms: red, scaly Status: stable with treatment Current treatment: Valtrex 500 mg every day. Patient reported she flared a couple of times in the last year when she was not taking medication daily, since she started taking valtrex daily no flares have occurred. Patient is satisfied with treatment. All pertinent medical history, medications, and allergies were reviewed. General Exam: alert, oriented to person, place, and time, normal affect, well appearing Unaccompanied A focused exam completed based on patient reported problems, see below: 1. Herpesviral vesicular dermatitis Left Hand - Anterior Clear today Continue with treatment as prescribed. If any flaring between appointment contact office and 2 gm bid x 1 day PRN for flares can be sent to pharmacy of choice. Plan to follow up in 1 year. Notify office if flaring despite treatment. Related Medications valACYclovir (Valtrex) 500 MG tablet Take 1 tablet daily, by mouth, 30 days Next Visit: 1 year follow up documented in this encounter [facility] 03-03-2024 History of Present illness Narrative Reason for Appointment: Patient ID: Rajiv Tovar is a 28 y.o. female who presents for hormone imbalance (Pt present today to check hormone levels.) Patient presents today for Acute Visit. MEDICATIONS Current Outpatient Medications Medication Instructions ARIPiprazole (Abilify) 5 MG tablet Every 24 hours busPIRone (Buspar) 15 MG tablet Every 12 hours drospirenone-ethinyl estradiol (Loreto, Ocella) 3-0.03 MG tablet 1 tablet, Oral, Daily hydrOXYzine pamoate (Vistaril) 50 MG capsule TAKE 1 CAPSULE BY MOUTH EVERY 6 HOURS NEEDED Orally 30 day hyoscyamine (Levsin) 0.125 MG SL tablet DISSOLVE 1 TABLET UNDER TONGUE 4 TIMES DAILY NEEDED ibuprofen 800 MG tablet 1 tablet, Oral, Every 8 hours PRN lamoTRIgine (LaMICtal) 25 MG tablet 1 tablet Orally norethindrone-ethinyl estradiol-iron (Lo Loestrin) 1 MG-10 MCG / 10 MCG tablet 1 tablet, Oral, Daily ondansetron ODT (Zofran-ODT) 4 MG disintegrating tablet Every 8 hours prazosin (Minipress) 1 MG capsule Every 24 hours traZODone (Desyrel) 100 MG tablet Every 24 hours venlafaxine XR (Effexor XR) 37.5 MG 24 hr tablet 1 tablet, Oral, Daily ALLERGIES Allergies Allergen Reactions Penicillin G Other Reaction(s): hives Penicillins Hives Sulfa Antibiotics Other Reaction(s): hives Penicillin G Sodium Rash Sulfamethoxazole-Trimethoprim Rash PROBLEMS Active Ambulatory Problems Diagnosis Date Noted No Active Ambulatory Problems Resolved Ambulatory Problems Diagnosis Date Noted No Resolved Ambulatory Problems Past Medical History: Diagnosis Date Anxiety and depression (CMS/HCC) ASCUS of cervix with negative high risk HPV BMI 22.0-22.9, adult Chronic pain Endometriosis History of cholecystectomy Hyperthyroidism (CMS/HCC) Right ovarian cyst HISTORY PAST MEDICAL HISTORY SOCIAL HISTORY Past Medical History: Diagnosis Date Anxiety and depression (CMS/HCC) ASCUS of cervix with negative high risk HPV BMI 22.0-22.9, adult Chronic pain Endometriosis History of cholecystectomy Hyperthyroidism (CMS/HCC) Right ovarian cyst Social History Tobacco Use Smoking status: Never Smokeless tobacco: Never Substance Use Topics Alcohol use: Never Drug use: Never FAMILY HISTORY Family History Problem Relation Name Age of Onset Breast cancer Father's Sister Leukemia Father's Sister Lung cancer Maternal Grandfather SURGICAL HISTORY Past Surgical History: Procedure Laterality Date SECTION, LOW TRANSVERSE 07/23/2019 CHOLECYSTECTOMY 05/10/2020 LAPAROSCOPY DIAGNOSTIC / BIOPSY / ASPIRATION / LYSIS 10/11/2023 PELVIC LAPAROSCOPY 2017 diagnostic lap with drainage of right ovarian fluid REVIEW OF SYSTEMS Review of Systems: Review of Systems Constitutional: Negative. HENT: Negative. Eyes: Negative. Respiratory: Negative. Cardiovascular: Negative. Gastrointestinal: Negative. Genitourinary: Negative. Musculoskeletal: Negative. Skin: Negative. Neurological: Negative. Psychiatric/Behavioral: Positive for agitation. The patient is nervous/anxious. All other systems reviewed and are negative. Hematological: Negative. Endocrine: Negative. Allergic/Immunologic: Negative. OBJECTIVE Objective: Physical Exam Constitutional: Appearance: Normal appearance. She is well-developed. Cardiovascular: Rate and Rhythm: Normal rate and regular rhythm. Pulmonary: Effort: Pulmonary effort is normal. Breath sounds: Normal breath sounds. Abdominal: General: Bowel sounds are normal. There is no distension. Palpations: Abdomen is soft. Tenderness: There is no abdominal tenderness. There is no guarding or rebound. Musculoskeletal: General: No swelling. Normal range of motion. Right lower leg: No edema. Left lower leg: No edema. Neurological: Mental Status: She is alert and oriented to person, place, and time. Skin: General: Skin is warm and dry. Psychiatric: Mood and Affect: Mood normal. Behavior: Behavior normal. Vitals and nursing note reviewed. Exam conducted with a dyeing machine back tender present. Vitals: Estimated body mass index is 24.37 kg/m as calculated from the following: Height as of 10/21/23: 5' 6 . Weight as of this encounter: 151 lb. BP: 112/70 Patient's last menstrual period was 02/29/2024 (approximate). ASSESSMENT & PLAN ICD-10-CM 1. Hormone imbalance E34.9 Hemoglobin A1c Estradiol Progesterone 2. Hot flashes R23.2 Hemoglobin A1c Estradiol Progesterone 3. Rolle R45.89 4. Weight gain R63.5 Hemoglobin A1c Estradiol Progesterone 5. PCOS (polycystic ovarian syndrome) E28.2 hCG, quantitative, TSH T4, free CBC and differential Follicle stimulating hormone Luteinizing hormone Hemoglobin A1c DHEA-sulfate DHEA Estradiol Progesterone DHEA Pt presents with complaints of being rolle, gaining weight, hot flashes all the time. Pt given labs to have obtained. Pt recently started seeing a therapist and feeling much better with mood. Pt to return as needed will consult pt when labs return. Documented by Marielle Morelos LPN on behalf of: Flynn Dragan, DO documented in this encounter [facility] 08-08-2023 History of Present illness Narrative Follow up Diagnosis: HSV Location: [...] in this encounter [facility] 07-18-2021 Note CONSULTATION CHIEF COMPLAINT: Mid-back pain, [...] to proceed. CC: Dr. Alon Weber [facility] 07-18-2021 Note CONSULTATION CHIEF COMPLAINT: Mid-back pain, [...] proceed. CC: Dr. Alon Weber [facility] Signed and Approved by: DR AKASH MARTINEZ . 07/25/2021 08:02:00 [facility] 02-28-2021 Note Infectious Disease COVID-19: How to Protect Yourself and Others Know how it spreads ? There is currently no vaccine to prevent coronavirus disease 2019 (COVID-19). ? The best way to prevent illness is to avoid being exposed to this virus. ? The virus is thought to spread mainly from ymyjta-uv-gnztow. ? Between people who are in close [...] are not readily available, use a hand non linear editor that contains at least 60% alcohol. Cover [...] are at higher risk of getting very sick.www.cdc.gov/coronavirus/201 -ncov/ubjx-dxesn-mknmidcypdj/pe xvxw-be-pilfdb-risk.html Cover your mouth and nose with a [...] available, clean your hands with a hand non linear editor that contains at least 60% alcohol. Clean and disinfect ? Clean AND disinfect frequently touched surfaces daily. This includes tables, doorknobs, light switches, countertops, handles, desks, phones, keyboards, toilets, faucets, and sinks. www.cdc.gov/coronavirus/nco v/hrfrveh-iefvmps-svre/disinfect gty-jlsd-bpzz.html ? If surfaces are dirty, clean them: [...] Reviewed: 12/31/2019 Elsevier Patient Education ? 2019 [employer] COVID-19 Frequently Asked Questions COVID-19 (coronavirus disease) is an infection that is caused by a large family of viruses. Some viruses cause illness in people and others cause illness in animals like camels, cats, and bats. In some cases, the viruses that cause illness in animals can spread to humans. Where did the coronavirus come from? In May 2019, [place] told the World Health Organization (WHO) of several cases of lung disease (human respiratory illness). These cases were linked to an open seafood and livestock market in the city of [facility]. The link to the seafood and [...] and virus naming World Health Organization (WHO): www.who.int/emergencies/diseases /dsxzm-dcjptozleej-0324/technica l-guidance/nvxazs-kpd-uaqouqgdkt s (more content not included)... 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 [facility] Diagnosis Hormone imbalance Hot flashes Rolle Weight gain Other symptoms concerning nutrition, metabolism, and development PCOS (polycystic ovarian syndrome) Polycystic ovaries [facility] Diagnosis 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 [facility] Diagnosis Hair loss- Primary Unspecified alopecia Weight gain Other symptoms concerning nutrition, metabolism, and development Encounter for dietary consultation Vitamin D deficiency documented in this encounter [facility] Summary [...] section and content) DATE CREATED AUTHOR 03/05/2021 [facility] DATE CREATED AUTHOR AUTHOR'S ORGANIZ ATION 04/10/2021 [facility] DATE CREATED AUTHOR AUTHOR'S ORGANIZ ATION 07/02/2022 [facility] DATE CREATED AUTHOR AUTHOR'S ORGANIZ ATION 03/15/2024 DATE CREATED AUTHOR AUTHOR'S ORGANIZ ATION 10/08/2024 [facility] EPIC Reason for Visit (unrecogniz ed section and content) Reason Comments Follow-up Reason Comments hormone imbalance Pt present today to check hormone levels. Reason Comments Thyroid Problem NEW MAR 17 LABS NO REFERRAL Care Teams (unrecognized sec tion and content) Press Box Custodian Relationship Specialty Start Date End Date Alon Weber MD [address] [place] [address] PCP - General Family Medicine 08/22/23 Press Box Custodian Relationship Specialty Start Date End Date Alon Weber MD [address] [place] [address] PCP - General Family Medicine 08/22/23 Press Box Custodian Relationship Specialty Start Date End Date lAon Weber MD [address] [place] [address] PCP - General Family Medicine 08/22/23 Press Box Custodian Relationship Specialty Start Date End Date Alon Weber MD [address] [place] [address] PCP - General Family Medicine 08/22/23 Press Box Custodian Relationship Specialty Start Date End Date Alon Weber MD [address] [place] [address] [facility] 08/22/23 Press Box Custodian Relationship Specialty Start Date End Date Alon Weber MD [address] [place] [address] [facility]CP - [facility] 08/22/23 Press Box Custodian Relationship Specialty Start Date End Date Alon Weber MD [address] [place] [address] PCP - [facility] 08/22/23 FOR RECORDS PERTAINING TO PATIENTS WHO ARE [...] BE BASED ON THE PRIMARY CLINICAL RECORDS. [facility] [employer] [facility]. provides no warranty or guarantee of the accuracy or completeness of information in this document.
[2024-10-09 11:01] LABS: Anion Gap 15.1; BUN Creatinine Ratio 13.4; Calcium 8.9 mg/dL (8.5-10.1); Carbon Dioxide 25.6 mmol/L (21.0-32.0); Chloride 106 mmol/L (98-107); Estimated GFR (African America >60 (>=60 mL/min/1.73m^2); Estimated GFR (Non-African Ame >60 (>=60 mL/min/1.73m^2); Free T3 3.31 pg/mL (2.18-3.98); Glucose 93 mg/dL (74-106); Potassium 3.7 mmol/L (3.5-5.1); Sodium 143 mmol/L (136-145); Thyroid Stimulating Hormone 4.091 uIU/mL (0.358-3.740)
[2024-10-09 11:19] LABS: Free T4 1.11 ng/dL (0.76-1.46)
[2024-10-12 12:08] LABS: Cortisol - AM 11.7 ug/dL (6.2-19.4)
== END 2024-10-09 09:26 | disposition home or self-care (01) ==
PROVIDERS: PCP Family Medicine; Visit Provider Internal Medicine
DX: R63.5 Abnormal weight gain (principal); L65.9 Nonscarring hair loss, unspecified; Z71.3 Dietary counseling and surveillance; E55.9 Vitamin D deficiency, unspecified
CPT/HCPCS: 36415; 80048; 82306; 82533; 84439; 84443; 84481

== ENCOUNTER 2025-04-01 13:13 | Outpatient (OUT) | payer BC, SELFPAY ==
--- OUTSIDE RECORDS SUMMARY | 2025-04-01 13:19 | XMS_ITS | CCD ---
Author Organization [facility] CliniSysd Care Team Providers Care Professor Of Psychology Name Role Phone DR AKASH MARTINEZ Admitting Unavailable MICHELLE, DR AKASH Murray Attending Unavailable GUS, DR CHI Primary Care Unavailable MARILIN ROWELL Consulting Unavailable GUS, DR CHI Primary Care Unavailable ELSIE HIGGINS Admitting Unavailable ELSIE HIGGINS Attending Unavailable JEANIE SEWELL Consulting Unavailable MICHELLE, DR AKASH Murray Admitting Unavailable MICHELLE, DR AKASH Murray Attending Unavailable GUS, DR CIH Primary Care Unavailable MICHELLE, DR AKASH Murray [...] Unavailable Alon Weber MD Primary Care Provider [phone] LEWSI SEWELL Attending Unavailable FLYNN ARCHIBALD Attending Unavailable MY SINGH Attending Unavailable JAMAR AUSTIN Attending Unavailable JAMAR AUSTIN Referring Unavailable Allergies Allergy Classification Reported Allergen(s) Allergy Type Date of Onset Reaction(s) Facility (2 sources) HYDROcodone Drug Allergy 5 [facility] Repository (2 sources) oxyCODONE Drug Allergy 5 [facility] (2 sources) Penicillins Drug allergy (disorder) 5 [facility] (4 sources) Acetaminophen / HYDROcodone Drug Allergy 4 Unknown [facility] (4 sources) HYDROcodone Drug Allergy 4 Hives [facility] Work Phone: (3 sources) oxyCODONE Drug Allergy 4 Hives [facility] (13 sources) Penicillin G Drug Allergy 4 [facility] (13 sources) Penicillin G sodium Allergy to substance 4 Rash [facility] (13 sources) Penicillins Drug Allergy 4 Hives [facility] (13 sources) Sulfamethoxazole / Trimethoprim Drug Allergy 4 Rash [facility] (13 sources) Sulfonamides (Antibiotic) Drug Allergy 4 [facility] Medications Current Medications Medication [...] 03-03-2024 Episodic Other aftercare (1 source) Other snf (current) drug therapy; Translations: [OTH DETENTION CURRENT DRUG THERAPY] Onset: 09-05-2021 Episodic Other [...] (Bld) 1.2 % 0.2 - 2.0 % [facility] Eosinophils/100 WBC (Bld) 2.7 % 0.9 - 7.0 % [facility] Erythrocyte distribution width (RBC) [Ratio] 11.9 % 11.0 - 15.0 % [facility] Hematocrit (Bld) [Volume fraction] 44.5 % 36.0 - 48.0 % [facility] Hemoglobin (Bld) [Mass/Vol] 15.0 g/dL 12.0 - 16.0 g/dL [facility] IMM[facility]OC[facility] granulocytes/100 WBC (Bld) 0.2 % 0.0 - 0.5 % [facility] LYMPHOCYTES ABSOLUTE AUTO 2.4 [facility] Lymphocytes/100 WBC (Bld) 39.7 % 20.5 - 60.0 % [facility] MCH (RBC) [Entitic mass] 31.3 pg 26.7 - 34.[address] [facility] MCHC (RBC) [Mass/Vol] 33.7 g/dL 29.9 - 35.2 g/dL [facility] MCV (RBC) [Entitic vol] 92.7 fL 81.0 - 99.[address] [facility] MONOCYTES ABSOLUTE AUTO 0.3 [facility] Monocytes/100 WBC (Bld) 5.2 % 1.7 - 12.0 % [facility] NEUTROPHILS ABSOLUTE AUTO 3.1 [facility] Neutrophils/100 WBC (Bld) 51.0 % 43.0 - 75.0 % [facility] Platelet mean volume (Bld) [Entitic vol] 10.4 fL 9.5 - 13.[address] [facility] TBH EO # 0.2 [facility] TB PLT 313 [facility] RBC 4.80 [facility] WBC 6.0 [facility] Covid-19 PCR ([facility])on 08-22 SARS-CoV-2 (COVID-19) RNA MARY+probe Ql (Unsp spec) Not detected Normal NOT DETECTED [facility] Comment on above: Result Comment: This test is not yet approved or cleared by the [place] FDA. When there are no FDA-approved or cleared tests available, and other criteria are met, FDA can make tests available under an emergency access mechanism called an Emergency Use Authorization (EUA). The EUA for this test is supported by the [place] of Health and Human Service's (HHS's) declaration [...] consistent with SARS-CoV-2. Performed By: #### [facility] #### [facility] [address] [place] [address] Dr. Karlos Augustin GROUP A STREP CULTUREon 08-22 S. pyogenes Ag Ql (Unsp spec) Culture Observations: NEGATIVE FOR GROUP A STREPTOCOCCUS. Normal [facility] Comment on above: Performed By: #### S ДМИТРИЙ GRASTCX #### [facility] [address] [place] [address] Dr. Karlos Augustin INFLUENZA A AND B AGon 09-03 INFLUANEGH SEE BELOW Normal [facility] Comment on above: Result Comment: Nega tive for Flu A protein angiten. Infection due to Flu A cannot be ruled out. Flu A angiten in the sample may be below the detection limit of the test. Performed By: #### I NFLUAB #### [facility] [address] [place] [address] Dr. Karlos Augustin INFLUBNEG SEE BELOW Normal [facility] Comment on above: Result Comment: Nega tive for Flu B protein antigen. Infection due to Flu B cannot be ruled out. Flu B antigen in the sample may be below the detection limit of the test. Performed By: #### I NFLUAB #### [facility] [address] [place] [address] Dr. Karlos Augustin INFLUENZA A AG Negative Normal NEGATIVE SEE COMMENT [facility] Comment on above: Performed By: #### I NFLUAB #### [facility] [address] [place] [address] Dr. Karlos Augustin INFLUENZA B AG Negative Normal NEGATIVE SEE COMMENT [facility] Comment on above: Performed By: #### I NFLUAB #### [facility] [address] [place] [address] Dr. Karlos Augustin INTERNAL CONTROLS Within Normal Limits Normal Wi thin Normal Limits [facility] Comment on above: Performed By: #### I NFLUAB #### [facility] [address] [place] [address] Dr. Karlos Augustin STREPT SCREENon 09-03-2021 STREP SCREEN A Negative Normal NEGATIVE The [facility] Comment on above: Performed By: #### S ДМИТРИЙ GRASTCX #### [facility] [address] [place] [address] Dr. Karlos Augustin PREG HCG QUALon 08-01-2021 , QUAL Negative Normal NEGATIVE [facility] Comment on above: Performed By: #### P REG #### [facility] [address] [address] [address] Karlos Augustin PREG HCG QUALon 07-04-2021 , QUAL Negative Normal NEGATIVE [facility] Comment on above: Performed By: #### P REG #### [facility] [address] [address] [facility] ABDOMEN AND PELVIS W IV CONTRAST [facility] Department of Radiology [address] [place] [address] Patient Name: RAJIV TOVAR : 1995 Sex: F Age: Race: White Pt. Location: [facility] Patient Status: D Ordered Date: 03/21/2021 4:00:00 PM Completed Date: 04/05/2021 03:49 PM Requesting Provider: ДМИТРИЙ CALLAHAN Attending Provider: ДМИТРИЙ CALLAHAN Report Copy To: ALON WEBER Signs & Symptoms: R10.31 Right lower quadrant pain I10 History: [place] Is patient on meds for HTN or DM? 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 Per [employer] for CPT 20360 Ref#[id number] Med Nec-Passed *SLA Comments: Exam: CT ABDOMEN [...] Electronically signed: Noemy Stanley M.D.. Transcribed by: [email or web address], User Resident: Electronically Signed by: NOEMY STANLEY @ 04/07/2021 01:25 PM Normal [facility] CHEST 2 [facility] 03-21-2021 [facility] CHEST 2 [facility] Department of Radiology [address] [place] [id number] Patient Name: RAJIV TOVAR : 1995 Sex: F Age: Race: White Pt. Location: [facility] Patient Status: D Ordered Date: 03/21/2021 2:25:00 PM Completed Date: 03/21/2021 02:22 PM Requesting Provider: ДМИТРИЙ CALLAHAN Attending Provider: Report Copy To: Signs & Symptoms: R07.81 Pleurodynia I10 History: [place] Comments: right ribs pain Exam: [facility] CHEST 2 [facility] CHEST 2 [facility] 03/21/2021 2:22 [...] disease Electronically signed: Cyril Olivo. Transcribed by: [email or web address], User Resident: Electronically Signed by: CYRIL OLIVO @ 03/22/2021 02:39 PM Normal [facility] Comment on above: Order Comment: right ribs pain Coding Summary.on 03-03-2021 Coding Summary. [id number] G h0bWw+PGhlYWQ+FS3YIQI hM69wiHBeaD5TZ2oDKD0Z SKJWEMFQBT4LQB4khZH5U SalC5HoevIm TawvuHKsCI53KLz2IQB4k WgmIRxgiX9rlGRgW2h6Fk JyJX00uN77DHekXSKhOjA 3LjZpbjsgbWFy P4qtViWeoOVpXpd+PHRhY mxlIHdpZHRoPScxMDAlJy FvkNqvCY1xJw4aBCUhYUA vbGxhcHNlOiBj j9fpOYEcPFjpZY0ibOnuB 5OzfEE7KCNzz1a7Rf97dK I+OGXtCBG9mZpiGJivn16 6YoBja3pqSMC7 zWPiCImtWWR7G70cq7I1H FEwOIOnUZM8hTS7nT4kvZ lqqkvkV6CeaXQcEzT0ILC 3fLPctP3omIhh jxosnK0aXek+D17EHN2ZF NVMXU7IXwt4B6PfUpzjwZ I+CO56OUBiEA02xCFisDM aw8klxWc4QyGg EJGcPDY4xGeuHNxbx9CtB ETnB79wnUUbd6V5DXWlmL jyiQGbVkVndEC2nP3uWKi zxyins2qioovh Qfieh0phlg20qM28E69nP KjnSIXyRGN2USRlYHZmdT kfde8maO1pFi6+OOoyf1q rt0zvsDr8VxJr KHQukqLprFolINW9o3NnQ j86K9PxcNxut3MkNml4jo 03uDPqz5P6nAX3CGlkYRP koU9fWKriTjR3 QYIuVgQrlX89kZSxYIryQ e9wqGnejUhzDZ2tLTKybx ocUQEfzK5hBXDjfFCioEb rZV7yFFTdqynh j390CbSpMKU5TTAhuVPmL 9TorQ2nIjXxFVPtBBUtK4 UvgWZdBIluF563SEzcApZ 1MAFddaMyH2Af HJUzvZcbKyR4a8C0Fr1Vz 6JsofpfJWM3PDabECY8Lw ErRsGeUrG0U8DtBzf3VRD rxIjlTZ5lW4Ok HDPvfqvlygpmuSX9RNUmT PHrkF32sMTuQMncMz7cn6 E3w502MBFmTJXweE84Uk8 udDogMTBwdCBU hP0dunpyp0hudpfpSgRyD BWsOAy2ZQu0OBKzjTrxEs FuUCL1DtR2DIX0eOMmrQ9 ktTjiqmtkpY1t Oyc+R36jsY8gKLJ8TDV1p ajwCRQutrGwGB06TF50S8 RyPjwvdGFibGU+PGRpdiB iaFqdFR9jRlAj o9eto6YeLHybK4AkIRIuA LcjKqu8XJXlRZP3cMM1zR 7qMXEfIXale6S1fNT6Y1I obuAvsh3ni1ak ZQFkWApwA32vtQYod1Q9B PKdnHV4KYGilFsaGlApgV 93Oyc+FDYiwIlce6JbShy rn2ouh6audSu3 GuJnRXGrpdMawXbsIDY6a 5QsSk83Z01jUNyoYBExRB YfZBKbITZjkHklkg5haH5 wIi8+PGNvbCB3 mRJ5nF7oWVLlVpK3QNueL 160PeEgsAXsOqhre6fme3 suaAs3ZgPfZTRgusOzfNp mXKZ9x0QmWb44 E25xFAxzSNDwDBGvZYBmN HJbkGnnux7zhG5rRz2+PC 3zu4woxj20pT28eGG+PHR rHJT9vEtlNUbm HMEtzK2lVPodIbD8QEUeO sXtbI54rDQcTGhnOy2fiK hofDvoKP6yBJRxafhbs02 2YqVwe2lcAKKf fRVlYGznAQG6A14ij4D1B WCaABIjRPN2cYX0gR1blX lnbjogbGVmdDsgdmVydGl nQHiuHAjzG554 IHRvcDsnPlBhdGllbnQgT nIfBHz7F4DrLqz1VXYnxY xdLP8uzMAyDUvwWb1adSq vsXlaYQ4sHCYu xabaq808AmNjp1jkBFDcl NGxOVkkFKN8H50tc5V6IQ FjUWMfJZP7pEM0xY5qgLn nbjogbGVmdDsg coJewYziMTpkWZioD438K HRvcDsnPkJpcnRoIERhdG U1AE82DE71oHBko6E3zEW 8F6EbQLCpjfni xzwfpSF8BOJnCDVjxL43C j8gxJipUy6vDFAnLHR5FA UnzRQiM9PnmM2jAaQpNGV wTZFnE2XcaSBl PJzeY554RSftGzC8HQCgn rLoL9FnOKYltWogGsA7r1 R5Gu6WB4T3CW46WN32tGK jd8V2mQH8P7Ry MISezuprrzyukSV4IBSdQ DKikH07Vf3ulKelHu5uQK WuCPK9QGQdnMNgX3YeeE3 yOiAjMDAwMDAw M9VxxDQaNSrpJ528UQgzZ uP3WPNrvhEpZ4XmQWMvqB gtPnS2i3S5Tf5WKJl9LH5 7HZ04dROep2B5 zYR7X6EtLXFlblozdftso VG9GUIsAAErlX69Rf6ueW zdEh2sTHJmJTW7ATGfvKS xP7XttL1fHkYl LROcUDQhV8GijBIqUYcoE 516CDwlPrE9OIWmhnCzE9 YxIHDgqZwbHcA3e2B3Ea4 FWSIiLE71XHM4 qGU5TW58VL57Q4MiLffjd GFibGU+PHRhYmxlIHdpZH RoPScxMDAlJyBzdHlsZT0 hTq6yPHYfOWAw rWajsLNxXyVhs1bzXXWyB BbfFG4tnZfaN1MjcNU0VR Fhj5s3Gb53I11tO2MdnTR +AYOcuVU9iEW6 lK0eOuTaFyW8BZydC981G wDblEXpHsjrn6kny2zvuY y9NmI8IOIunbBmsZuuNZZ 9k7UgZa67D65d IHdpZHRoPSIxNSUiIHZhb Hdvcf6bqT3qNx2+PGNvbC G1zQD9dH5fEcRvGxO3FXw qJ532TiCbcYOv Gfkad2hma2rfgTy6WcPhV JMrqqDuuIpvGPB6h5BgKc 46O3JzkQahs8SyWau5ib7 5rRWpi4U9yNZ1 Z0OmXVRaywaddERhnDegF K1sEARvwrfiCLWrvL9yHX HcL1j7YlBfAzM5XWpgW4Z mqeN9ZNArlRIe OAaoZXR1S05rl8E1FXIjB QOhGPY5yDC4oT8esCqedw ogbGVmdDsgdmVydGljYWw jYXwxY643UHLr eEshIZFymZ2kILIvfIMqr BerQU4yVZGmtimbJbVZVU EPGFFXEIbRC1F0R7ErBwv 1JRXimTibZX8j cNWxBKtiUi5adVfvqApyH C2aKANszsooPGGefW7zBZ XhdLNktGtfZP8mCAFiajn zi704XqSfSCY9 VEZcjGGgG3XpwH7zHaMiR IGyFTBhR1DqlIMsFTzfY4 14VVakSpN2KYTozbGtM8P sLWFsaWduOiB0 y8K0Zf8jXM0aGq8xHZuqX K73RG74oDBed4G3jSV2V7 BuYJRtlsaxmmnddZU4ZSE zHOJssA06oGBn FIsqSn0kv9O2h627FHCcT VMbfK02Aj3jgBdiVDZmeU HLnP4jpdtkv3rzlpppSiO yGYFfLVy5IIo6 BLVniFazGlGcWQD9ExW3P YF6kCYwaQ8xkMcdnokrdA 9wOyc+XmsvDKLidiB2N6U hPum5AQKkbGre ZU9slYVuAElmNo2yqVsyp VnnJN6aAZVvicpfPSNbhS 5vTQTppMBxiDahOP4tDDI chgscv616LtIt SOT8WGWckOTfB1YgtF7pW jZnXGWfURPyV9NkoOSbPY nnB276YRztAwN7FSCpuqA qP1LdJBDaaEos IcY5h5J5Aa0ZVE3iaSG9G 2CdEhl6SILfuWykTY7btB VaHDgcDv9tfZjcmRzqYH6 wNTBpbjtwYWRk lO3dXIKjgDMcpJdiAY2wY PImsxkqj742FtYfQEI7VB ElbXCgI8PveC8yJmMjIGU jFBChL6WkjNAf IKitL377CHgqMoQ3PHVbv cGkR4BaOSBsfGczRtH8h2 V6Nm1BmPSeC5UnJ7g7G3F kPjwvdHI+PC90 KVTfQY88sKLefEGen8nzi Rm6ZcXsJUSfSOY2zEtmES adr4XuPFXnN96kzRCee7X 6IGNvbGxhcHNl YvEroWH8hH9lQQclhprwm 4wxgycqJtwdm6dwqy24nT 60N65jVHszJKJgRJBgSRB gIMBhwZuvbi7z yU8xEu1+IZBnqUM3yHH6y K4lYvLoJjA9YPmnP318Et KbjZYvIzrjs6obo9azrEe 9IjIwJSIgdmFs fDfaLLI5w0HxWb41T20zO HdpZHRoPSIyMCUiIHZhbG gfhx3qgT1yZx4+KD4rc2f sgm62uK03nDT+ XVHnRHG4lHvdJMxnWNVit H0nLBjoBeD2KIBmUfOhmI 76fEJwCDwiVb7hqZgocBa bHI4xPBHhudkd a632HgFqi1xuYXHjcMExJ BumXPB1A65hh7C1SFErXQ YpJEC4wZK2wG2qlTidkwv gbGVmdDsgdmVy oHwwXLhdFOtmO806NEVoy MypSiBypZUqQ3qcelHGTC 1lOjwvdGQ+SZOdNGN5qOy kXPkzQUYgsD4v TPNwK6g0UtCeMcL9MQovV 5PcmiJ2MELepWZbSQJlnU RBuK1emvxis0ytcdekCfV dGOTaUKs3CBm0 NQLjjOygNiIyGWX7VfQ7F MK4sSVjqF0gdEupzqqiaX 9wOyc+RklOOjwvdGQ+PHR lQYQ4sLqaGDso MCAgoC8cYLEpT9q5TpBrP lM4JYoiW2LpajV6TYFzzN SrUNCcvHBChP3axahhq3n vcjogIzAwMDAw UZa2HQp6TPXsuNalTaOgA YA8WjD5JTE4eMNanD0lnW cbuohiqG6xNwn+TVJOOjw vdGQ+PHRkIHN0 zKgsFCtwNVVjgF2pLXUpS 3r5VrQgHaN6LFxqD2Ikgz L5XMEchGCwDYNriVWMuV8 zijdvm4veajdm PwFjFZWcMWz6KIc1EVDyx PhnMrXoVOR9TaO6OVJ3yN FkwH3pgRcbqwfeeY5eLtv +CSO8KMN1UP11 OE16Q9JfXafrqEDzkDP+P HRhYmxlIHdpZHRoPScxMD CqGxSvyNrnZJ5pCs6gXVC yLWNvbGxhcHNl OiBj (more content not included)... Normal [facility] Auto Diffon 02-28-2021 Basophils/100 WBC (Bld) 0.4 % Normal 0.0-2.0 [facility] Comment on above: Order Comment: Order Added by Discern Expert. Performed By: #### 2 440575, 4552922, 74490010, 62829007, 79943713, 04780268, 9938066, 0485845, 6384726, 1145073 ####[address] [place] [address] Basophils/Leukocytes Auto (Bld) [Pure # fraction] 0.0 E9/L Normal 0.0-0.2 [facility] Comment on above: Order Comment: Order Added by Discern Expert. Performed By: #### 2 400478, 4157154, 95474609, 24350490, 67336548, 08494207, 1914187, 8978882, 5738224, 9295621 ####[address] [place] [address] Eosinophils/100 WBC (Bld) 0.6 % Normal 0.0-8.0 [facility] Comment on above: Order Comment: Order Added by Discern Expert. Performed By: #### 2 911458, 5841743, 95035520, 13278030, 28638658, 38905866, 8644665, 2498835, 9363166, 8072362 ####[address] [place] [address] Eosinophils/Leukocyt es Auto (Bld) [Pure # fraction] 0.0 E9/L Normal 0.0-0.5 [facility] Comment on above: Order Comment: Order Added by Discern Expert. Performed By: #### 2 239123, 6584190, 47940583, 17681274, 07256522, 48129950, 4878341, 3089631, 2346852, 9237409 ####[address] [place] [address] Lymphocytes/100 WBC (Bld) 7.9 % Low 14.0-50.0 [facility] Comment on above: Order Comment: Order Added by Discern Expert. Performed By: #### 2 255650, 4332838, 47790959, 69363105, 03230924, 77233875, 5334418, 4382499, 3406198, 5971682 ####[address] [place] [address] Lymphocytes/Leukocyt es Auto (Bld) [Pure # fraction] 0.4 E9/L Low 1.0-4.0 [facility] Comment on above: Order Comment: Order Added by Discern Expert. Performed By: #### 2 316543, 0464113, 73882444, 56023484, 91980047, 79121306, 8361716, 6381706, 0268683, 8388268 ####[facility] [address] [place] [address] Monocytes/100 WBC (Bld) 5.5 % Normal 4.0-14.0 [facility] Comment on above: Order Comment: Order Added by Discern Expert. Performed By: #### 2 765334, 4717504, 60707574, 47999453, 21101719, 24484245, 5528109, 6787214, 5311382, 4350714 ####[address] [address] Monocytes/Leukocytes Auto (Bld) [Pure # fraction] 0.3 E9/L Normal 0.2-1.0 [facility] Comment on above: Order Comment: Order Added by Discern Expert. Performed By: #### 2 727932, 4979605, 40646589, 36618808, 75658225, 02869650, 3699039, 4329338, 8345590, 7559748 ####[address] [place] [address] Neutrophils/100 WBC (Bld) 85.6 % High 36.0-75.0 [facility] Comment on above: Order Comment: Order Added by Discern Expert. Performed By: #### 2 214498, 6794637, 50170062, 10918692, 53420731, 31301317, 1738343, 3298217, 8091492, 4186605 ####[address] [place] [address] Neutrophils/Leukocyt es Auto (Bld) [Pure # fraction] 4.5 E9/L Normal 2.0-7.5 [facility] Comment on above: Order Comment: Order Added by Discern Expert. Performed By: #### 2 705858, 3270311, 68468153, 43624408, 29315423, 46820761, 7923589, 8099195, 7008901, 5777542 ####[facility] [address] [place] [address] B hCG Qualon 02-28-2021 Beta hCG Ql Negative Normal [facility] Comment on above: Performed By: #### 2 157202, 6827060, 84138427, 84714461, 01015364, 30006643, 6201792, 9451809, 5363252, 6647228 ####[facility] [address] [place] [address] BMPon 02-28-2021 Creatinine [Mass/Vol] 0.7 mg/dL Normal 0.5-1.3 [facility] Comment on above: Performed By: #### 2 647944, 9464415, 86579732, 27663851, 38219260, 86536767, 9402380, 9498764, 5967735, 4402996 ####[facility] [address] [place] [address] Urea nitrogen [Mass/Vol] 9 mg/dL Normal 5-21 [facility] Comment on above: Performed By: #### 2 447724, 7336388, 05462840, 03688246, 95689316, 13144773, 1042586, 7784244, 1744709, 7747527 ####[facility] [address] [place] [address] Urea nitrogen/Creatinine [Mass ratio] 13 No Units Normal 10-20 [facility] Comment on above: Performed By: #### 2 271139, 1795954, 43953312, 87611586, 84492009, 53728362, 8890314, 6199741, 4940558, 3786419 ####[facility] [address] [place] [address] Anion gap [Moles/Vol] 14 mmol/L Normal 6-16 [facility] Comment on above: Performed By: #### 2 436929, 3816175, 50782422, 05739047, 90839970, 08170510, 3175279, 4548730, 5789345, 1812135 ####[facility] [address] [place] [address] Calcium [Mass/Vol] 8.5 mg/dL Low 8.9-11.1 [facility] Comment on above: Performed By: #### 2 284595, 7372092, 35365910, 50615990, 58834328, 18520377, 5488973, 4254123, 4292817, 4393955 ####[facility] [address] [place] [address] Chloride [Moles/Vol] 102 mmol/L Normal 101-111 [facility] Comment on above: Performed By: #### 2 260100, 4156981, 92022576, 48615319, 50253627, 96689160, 1289400, 0328730, 6271406, 6839762 ####[facility] [address] [place] [address] CO2 [Moles/Vol] 21 mmol/L Normal 21-31 [facility] Comment on above: Performed By: #### 2 194127, 4499952, 94376974, 86892823, 26229749, 27618979, 3315745, 7705739, 9040840, 3462073 ####[facility] [address] [place] [address] Glucose [Mass/Vol] 95 mg/dL Normal 55-199 [facility] Comment on above: Result Comment: If t his glucose result represents a fasting glucose, interpretation should refer to the following reference range: 55-99 mg/dL Performed By: #### 2 759106, 4143406, 01661143, 63144239, 29763437, 93173607, 4419279, 5489639, 3844783, 4916798 ####[facility] [address] [place] [address] Potassium [Moles/Vol] 3.6 mmol/L Normal 3.5-5.3 [facility] Comment on above: Performed By: #### 2 123416, 7551341, 17149126, 79200717, 82138459, 08086919, 0859014, 9266154, 9967014, 0775725 ####[facility] [address] [place] [address] Sodium [Moles/Vol] 133 mmol/L Low 135-145 [facility] Comment on above: Performed By: #### 2 306234, 3681689, 82865358, 79156561, 97884075, 23650230, 2943466, 6533944, 5419451, 6485388 ####[facility] [address] [place] [address] CBC w/ Auto Diffon 1 Erythrocyte distribution width (RBC) [Ratio] 12.4 % Normal 10.9-14.2 [facility] Comment on above: Performed By: #### 2 117488, 0562540, 71778416, 82157052, 11646869, 42784598, 2437109, 5715881, 4174269, 2575061 ####[address] [place] [address] Hematocrit (Bld) [Volume fraction] 38.1 % Normal 34.0-46.0 [facility] Comment on above: Performed By: #### 2 561341, 1378321, 00989498, 98785144, 85124318, 10836738, 9568175, 6270200, 5710709, 3498515 ####[facility] [address] [place] [address] Hemoglobin (Bld) [Mass/Vol] 13.3 g/dL Normal 12.0-16.0 [facility] Comment on above: Performed By: #### 2 757443, 8534969, 08260949, 31703095, 29266187, 33503999, 2407983, 2632651, 8979481, 2253583 ####[facility] [address] [place] [address] MCH (RBC) [Entitic mass] 31.7 pg Normal 27.0-34.0 [facility] Comment on above: Performed By: #### 2 949498, 9196495, 93737617, 51902868, 70321871, 99248428, 8338069, 6333426, 9939163, 8722988 ####[facility] [address] [place] [address] MCHC (RBC) [Mass/Vol] 35.0 g/dL Normal 31.4-36.0 [facility] Comment on above: Performed By: #### 2 659414, 4336601, 14987822, 85581537, 44432611, 82992198, 5424815, 1442194, 0393014, 2716049 ####[facility] [address] [place] [address] MCV (RBC) [Entitic vol] 90.8 fL Normal 80.0-100.0 [facility] Comment on above: Performed By: #### 2 931661, 8502290, 35649030, 16958270, 76437300, 89926345, 6210485, 2151052, 6695657, 2066513 ####[facility] [address] [place] [address] Platelet mean volume (Bld) [Entitic vol] 10.0 fL Normal 6.4-10.8 [facility] Comment on above: Performed By: #### 2 579605, 5395322, 95441359, 95062658, 99594437, 70064916, 2948233, 7988717, 6096832, 2829026 ####[facility] [address] [place] [address] Platelets (Bld) [#/Vol] 144.0 E9/L Low 150.0-500.0 [facility] Comment on above: Performed By: #### 2 316905, 2569869, 70212693, 37046676, 92594113, 84161221, 2677114, 1375630, 2572921, 3450243 ####[facility] [address] [place] [address] RBC (Bld) [#/Vol] 4.2 E12/L Low 4.3-5.9 [facility] Comment on above: Performed By: #### 2 289481, 5429958, 39010354, 35431386, 39624350, 33634719, 9912935, 5478849, 8568496, 0425251 ####[facility] [address] [place] [address] WBC corrected for nucl RBC Auto (Bld) [#/Vol] 5.3 E9/L Normal 4.0-11.0 [facility] Comment on above: Performed By: #### 2 265427, 1116642, 24681035, 34791286, 69140980, 43112476, 0948977, 1986573, 6940178, 4870969 ####[address] [place] [address] COVID-19 (MC)on 02-28-2021 SARS-CoV-2 (COVID-19) RNA MARY+probe Ql (Unsp spec) Not detected Normal Not Detected [facility] Comment on above: Result Comment: This test result should be correlated with clinical presentations and medical history by a healthcare provider to determine its clinical significance. This assay was performed by a reverse transcriptase real-time polymerase chain reaction (rt PCR) method on the [employer] system. This test has been authorized only [...] or revoked sooner. Performed By: #### 2 [id number] #### [facility] [address] [place] [address] SARS-CoV-2 (COVID-19) RNA MARY+probe Ql (Unsp spec) Pass Normal Pass [facility] Comment on above: Performed By: #### 2 [id number] #### [facility] [address] [place] [address] Specimen source Nom (Unsp spec) Nasal Normal [facility] Comment on above: Performed By: #### 2 [id number] #### [facility] [address] [place] [address] Employed in Healthcare NO Normal [facility] Comment on above: Performed By: #### 2 [id number] #### [facility] [address] [place] [address] First Test Unknown Normal [facility] Comment on above: Performed By: #### 2 [id number] #### [facility] [address] [place] [address] Hospitalized? NO Normal [facility] Comment on above: Performed By: #### 2 [id number] #### [facility] [address] [place] [address] ICU NO Normal [facility] Comment on above: Performed By: #### 2 [id number] #### [facility] Laboratory [address] [place] [address] ? NO Normal [facility] Comment on above: Performed By: #### 2 [id number] #### [facility] [address] [place] [address] Resides in a Congregate Care Setting NO Normal [facility] Comment on above: Performed By: #### 2 [id number] #### [facility] [address] [place] [address] Symptomatic as defined by CDC YES Normal [facility] Comment on above: Performed By: #### 2 [id number] #### [facility] [address] [place] [address] Consent for Treatmenton Consent for Treatment [id number]#1 .00CD:127 Normal [facility] D-Dimeron 02-28-2021 Fibrin D-dimer FEU (PPP) [Mass/Vol] 388 CD:[id number] Normal 215-500 [facility] Comment on above: Result Comment: This assay [...] infections Liver cirrhosis Performed By: #### 2 576997, 0265955, 62626910, 67505469, 50758655, 72037331, 2531518, 8074380, 1444965, 2377706 ####[facility] [address] [place] [address] Discharge Instructionson Discharge Instructions [id number]# 1.00CD:127 Normal [facility] ED Clinical Summaryon 2020 ED Clinical Summary [address] [address] ED Clinical Summary Person Information Name: RAJIV TOVAR/[place] Age: 25 Years : 1995 Sex: Female Language: Prydeinig PCP: Alon Weber MD Marital Status: Single [...] 02/28/2021 11:17:01 02/28/2021 11:17:01 02/28/2021 11:17:01 ADDRESS: [address] [place] [id number] PHYS DOC NOTES: MEDICAL INFORMATION: Prescriptions Given: [...] up: With: Address: When: Alon Weber [address] [facility], [place] [address] Business (1) In 3 days DIAGNOSIS: Chest pain; Viral URI Normal [facility] ED Note-Physicianon 02-29-20 ED Note-Physician Basic Information [...] hCG Qual CBC w/ Auto Diff COVID-19 ([facility]) D-Dimer ECG 12 Lead Adult ED Cardiac [...] Information Alon Gus In 3 days [address] [facility] [place] [place] [address]- Business (1) Additional Instructions: Patient Education COVID-19: [...] Use, 01/30 (more content not included)... Normal [facility] Comment on above: Result Comment: Elec tronically Signed By: Laureano Phillip DO\.br\Date and Time Signed: 02/28/21 11:03 EDT ED Patient Summaryon 021 ED Patient Summary [place] [id number] Patient Discharge Instructions Person Information Name: RAJIV TOVAR Age: 25 Years Arrival Date: 02/28/2021 09:10:34 Discharge Diagnosis: Chest pain; Viral URI Primary Care Physician: Alon Weber MD Provider Information Primary Provider: Laureano Phillip DO Advanced Various Exceptionalities Teacher:None The exam and treatment you received in the Emergency Department were for an urgent problem and are not intended as complete care. It is important that you follow up with a doctor, nurse practitioner, or physician?s events administrative assistant for ongoing care. If your symptoms [...] Follow-up Instructions: With: Address: When: Alon Gus [address] [place] [address], [facility] [place] [address] Business (1) In 3 days [...] opioids can be used to help relieve sjecyohz-vu-hquvua pain and are often prescribed following a [...] be struggling with addiction, tell your health physician assistant primary care and ask for guidance or (more content not included)... Normal [facility] Hep Func Panelon 02-28-2021 ALP [Catalytic activity/Vol] 52 Int._Unit/L Normal 21-98 [facility] Comment on above: Performed By: #### 2 397854, 4060843, 91049096, 65473581, 54139675, 25309716, 0218166, 4807179, 2345297, 6535653 ####[facility] [address] [place] [address] Albumin [Mass/Vol] 4.2 g/dL Normal 3.3-5.0 [facility] Comment on above: Performed By: #### 2 550626, 2647918, 51930311, 28171984, 50249628, 04734949, 1644899, 1603389, 0724462, 8406038 ####[facility] [address] [place] [address] Albumin/Globulin (S) [Mass conc ratio] 1.4 Normal 1.1-2.2 [facility] Comment on above: Performed By: #### 2 616656, 6402133, 70763821, 50412531, 04132729, 55674326, 5794796, 4289578, 3561569, 9345049 ####[facility] [address] [place] [address] ALT No additional P-5'-P [Catalytic activity/Vol] 48 Int._Unit/L High 6-46 [facility] Comment on above: Performed By: #### 2 172643, 3678907, 15133756, 46635315, 41582463, 27167599, 9781135, 7268094, 2144401, 0484622 ####[place] [address] [place] [address] AST [Catalytic activity/Vol] 39 Int._Unit/L Normal 5-43 [facility] Comment on above: Performed By: #### 2 771590, 2857352, 65520144, 80764172, 77934586, 43940442, 3088763, 0468167, 7912445, 4153230 ####[address] [address] Bilirubin [Mass/Vol] 1.2 mg/dL High 0.0-1.1 [facility] Comment on above: Performed By: #### 2 611812, 8444476, 93388760, 80818881, 73838620, 71557028, 7065860, 2142365, 9324254, 7552583 ####[place] [address] [place] [address] Bilirubin.direct [Mass/Vol] 0.2 mg/dL Normal 0.1-0.4 [facility] Comment on above: Performed By: #### 2 390279, 7452763, 80707919, 83333067, 59859905, 68968364, 3806151, 9073907, 9752987, 8008703 ####[place] [address] [place] [address] Bilirubin.indirect [Mass or moles/Vol] 1.0 mg/dL High 0.1-0.9 [facility] Comment on above: Performed By: #### 2 947244, 0286144, 89724545, 47160783, 42914663, 82926495, 4385786, 4427309, 3788329, 9684360 ####[facility] [address] [place] [address] Globulin (S) [Mass/Vol] 2.9 g/dL Normal 1.4-4.0 [facility] Comment on above: Performed By: #### 2 800367, 8971070, 03195785, 01599436, 30230077, 12515520, 0014334, 6891237, 1261217, 9806607 ####[facility] [address] [place] [address] Protein [Mass/Vol] 7.1 g/dL Normal 6.0-7.8 [facility] Comment on above: Performed By: #### 2 022852, 7185745, 78975485, 30731663, 89367842, 60346667, 5715134, 6450294, 9446931, 9877792 ####[facility] [address] [place] [address] Lipase Levelon 02-28-2021 Lipase [Catalytic activity/Vol] 33 U/L Normal 13-58 [facility] Comment on above: Performed By: #### 2 237500, 3815804, 97100008, 31214577, 65891774, 71186544, 3562654, 6746187, 9557981, 9540853 ####[facility] [address] [place] [address] PT & PTTon 02-28-2021 aPTT Coag (PPP) [Time] 31.5 second(s) Normal 25.1-36.5 [facility] Comment on above: Result Comment: Hepa rin therapeutic range (represented by Anti-Factor Xa activity of 0.2 - 0.4 U/mL) corresponds to PTT of 56.6 - 109.0 sec. Performed By: #### 2 154334, 5208527, 11716304, 75930430, 11584888, 73203535, 9460099, 4856714, 6869238, 5346354 ####[facility] [address] [place] [address] INR Coag (PPP) [Relative time] 1.1 {INR} Invalid Interpretation Code [facility] Comment on above: Result Comment: INR results are specifically intended to assess patients stabilized on long-term Anticoagulation therapy suggested INR?s ?Less Intensive Anticoagulation? 2.0 ? 3.0 Conventional Range 3.0 ? 4.5 Performed By: #### 2 554577, 5419574, 60305801, 68119760, 38733198, 55780669, 3988389, 4958514, 3483929, 1683396 ####[facility] [address] [place] [address] PT Coag (PPP) [Time] 13.1 second(s) High 10.2-12.9 [facility] Comment on above: Performed By: #### 2 712128, 2952481, 81262646, 23616575, 90365995, 17487231, 4851806, 9232538, 3084133, 3623024 ####[facility] [address] [place] [address] Prescriptions/Work Noteson 0 02-28-2021 Prescriptions/Work Notes [id number]# 1.00CD:127 Normal [facility] Troponin 0 Hr.on 02-28-2021 Troponin I.cardiac [Mass/Vol] ng/mL Low 10.10-27.10 [facility] Comment on above: Result Comment: The 95% CI (Confidence Interval) PPV (Positive Predictive Value) for myocardial infarction in females is 38 pg/mL, in males 51 pg/mL. The results should be used in conjunction with clinical conditions of myocardial infarction. (Access High Sensitivity Troponin I Instructions For Use, Yenifer Hutto, January 2018) Performed By: #### 2 256842, 7564332, 72661348, 38801971, 51499854, 98586574, 8122226, 3396242, 2356705, 5367733 ####[facility] [address] [place] [address] XR Chest Single Viewon 02-28 XR Chest [...] MD Transcribed by: OLGA Technologist: YONG Kaplan [facility] eGFRon 02-28-2021 GFR/1.73 sq M.predicted among blacks MDRD (S/P/Bld) [Vol rate/Area] mL/min/{1.73_m2} Normal >=59 [facility] Comment on above: Order Comment: Order added by Discern Expert. Result Comment: eGFR is race adjusted. AA=. Performed By: #### 2 732315, 7591372, 03284201, 55510296, 47562374, 61711525, 9828004, 9583382, 9166699, 7759661 ####[facility] [address] [place] [address] GFR/1.73 sq M.predicted among non-blacks MDRD (S/P/Bld) [Vol rate/Area] mL/min/{1.73_m2} Normal >=59 [facility] Comment on above: Order Comment: Order added by Discern Expert. Result Comment: Diesel Fitter Mechanic bib kidney disease could be indicated at eGFR's of less than 60 mL/min/1.73m2. Kidney failure is indicated at less than 15 mL/min/1.73m2. Performed By: #### 2 651117, 7066696, 79946001, 48550113, 91293925, 09771536, 6165361, 9245395, 7031687, 0555396 ####[facility] [address] [place] [address] C Urineon 02-01-2021 Bacteria identified Cx Nom [...] Locations R1: This test was performed at: [facility], [address] [place] [address], [address]- , , Normal [facility] Comment on above: Performed By: #### 1 2935730, 6866189 ####[facility] [address] [place] [address] Coding Summary.on 02-01-2021 Coding Summary. CD:[id number] G h0bWw+PGhlYWQ+NS6NXHB cO08igAOpkL2UN6hAVO7X VEZPTFLBEQ3UNL2lcFB3B TebM5GocwRy IyhahPXfSO71UJu3MSA3g KgnSSnklA7qhQWiL2g4Sn MyQD83pX11HGloQLKzZmU 3LjZpbjsgbWFy X4ndOhOwtIXyUdd+PHRhY mxlIHdpZHRoPScxMDAlJy NmnYnsZK5tRw8hYHZeZUW vbGxhcHNlOiBj f5erJNUcPPbfSY9dzVqtI 1ImrMI0MFQpa4u2Vu57tC I+TFIfNAP2tKapHEuec10 6YdZby6kcKNM4 rYGlKWagAYT5M17uu2N1G EWpNLCsKTM5zNR0sL2ncA zswjkgS3BxkSEgPjV3ZKS 5oIJsxN3tiAtm wjcwyF2oHhj+J82ACA6UO XXUKN4PZia0T3CaPdyjsC I+IK68OGGmBJ98qWMdyNM wm9lvrTz2HsDe JKXdQBZ9rIqxQIbnd4GlT GFcT91gzJLdb6H5CIAtdK klgXBaImAdmXA8yO8iZUv foasno1zwrkkd Nnepp5kdud97tW93B87fM PxoVUZkBUW0KPMkNLHjfF eadi1mgP9kEg4+JTibs0s ho5btlHm0YwWd QRUehoHjaGloKSF3f6PbH q57F8CwcFrok1MuHxi8jx 55jMGow7B9vYY7EKswQWD rzM2kBFvqJoJ6 AVAkVuEsrD82sCVeVUmlV u4xeSdjmKwcEJ9yLFEtjk qwCDDfyC7kNQPtoIWlnXl lJB9mVVMkshvy s768FhIfXDG7TIYmlJZtA 7DolU9sOwLzSVVmATUkF8 ZlbLGdEEmtQ760EVnrSbW 3FZOpbkYcE9Ug KNDluHbtFnK3q5Z0Ru2Dh 6PfcfglXAM8QIobADV4Am UmQuEhJuL9Y4QvMje0JNI hjJcyWO7lG4Ai UANpyxnhstxkfTP2PYYiE UFshE83lGCvMNcdLy7pd8 J5m021KZEpYCHgqB73Vs0 udDogMTBwdCBU uZ6pjbmtp9pvmxspFjDzR YQgRIe4MAx3PREzxUfhTy MnABH5McC3ICH0nPLqxS2 hvRbnejwqtD0p Oyc+M93laP9sAKM6SUM4p ewsAPTggzLpQV06BV13Z1 RyPjwvdGFibGU+PGRpdiB ulGpgQI2yQlTa g9qli1SgVJxsW1ArGDItL YsvUso0KEWbPBT1gHW1gD 7wSWQmDShmp5V6eMX8H4D uitBsmo7kl3ul GPFhVRivY06dbCZsm1U7G HXfhSD0CZJmhDepKyIfaM 93Oyc+GYDrcZepg6KnYqs fu7llp1bviPt0 XxDlZKFodrMrcNhwQTA8e 7EdDo30D82aLGqbURJuWE ZqNMSbAOHuxOhjid5atC9 wIi8+PGNvbCB3 jJJ0uG1aAWOiAaL0FAgrK 709PdSkdZOwSghre6cmr0 dviVl7DjApMHHdcnXknMy eNSA3k3EoHy26 Y25tGBkdNCCwPDCuPDEzE MXxdGzxth2fmN6zIc0+PC 9kn9nrnz72wR81gFV+PHR pYGF8tJzpJQyu XSUxpR8wOBrfEaX8WSNfQ dJeyW21qEZbVNgxBs1eiF jnfBqnYR2bSYHxazcjj41 3VlCgn9xwQACj gFPtEArkRHN1A65hl2O0H JYvDQIbDCD7rBD2kS0ubC lnbjogbGVmdDsgdmVydGl pWYkxEGkcE514 IHRvcDsnPlBhdGllbnQgT xMqVQb5Q6SsIwg2DVZhiW pjVY8aaLSoZNqwLc2qoOo osMioVY9eTHWn tmops480OxLat3alKZHkv HJoBBdeRHH1V29pf3Q9VZ UbSAEnGBK8pKG6rE0bjTd nbjogbGVmdDsg asNknSdmJMehSAdjV693Q HRvcDsnPkJpcnRoIERhdG S4MO06TY02pVEnv7R4lHB 2F6NzUAWjibsb aylodUQ6NDGxTSBxkK78L q7jfVpxSe9bTKRwDUU9TG EgjMFeT9YohU0hLqTzGZN fRYPoC4XaoWDb JXymO124GYauEoS5USYdo rFyD0IoUSVlvHrhAkF5d4 C6Lg7SU2V4TN60AF02bXD nn5C3pRJ9N5Rp UIMhleathrvgeRO7MCLlC JSkyE54Vj1psUerCj5hZZ QeCAI7LTMvaNGcK1RtrM1 yOiAjMDAwMDAw X9LhjCPmTZgjB974LHaxO iC0CLBzaiDiX3DlEIRylI gmTgB5h3T4Fz9NXYm0OM5 4NX65uOYbo0K9 bMX4I2RwESIwxbsnayhll IN3PARfRAYnrD96Hx1skF arVw5zPNOeDQH6BOShhVU bQ0QacW3vYwZs RSHyKGOzA3AvbLOjLJosP 487OHpyArD0GBGnmtSbP1 DbAVHspHqaGpR2f5W1Ol3 GGNXpRK19ISQ3 rNB3BG07DG36R5DiZbwvf GFibGU+PHRhYmxlIHdpZH RoPScxMDAlJyBzdHlsZT0 gJf3aQQEzMRVx oClsmZJdJxIlg1ynFSQeN WrvTR7jrAeuA3BnqKV5KV Rhq1z2Jp55E45pM6HbgWJ +HDMiuVD3kTZ3 dF7oXnRkPyI8DRefR167C xFplEEqNmybt0gbe4fzdJ y1IiN8EXKpsfWwcEciHLD 0f4VpIe65P61k IHdpZHRoPSIxNSUiIHZhb Akiyv6tnZ7jWc7+PGNvbC T3nQD5pA4zByItNjR2YQn zH174SbWioKJk Dwtbq6jht5mjiJc7CeEcD LNlfhTprEquKQK0r2JkSg 55Q0MhkGogy3OfCnf6ia9 4gMYwn7M7gDP6 Q3UcURVtpcnlqEQreKgvL C8lQNHudhleNWCteW1uYA QnI2n6IyZuIzO1ZFzgQ6U wvhK5NEDwvVXh WJdzEQQ5Y10ir7A2SLGaX AGpZSQ0pRF9oM2poKkcop ogbGVmdDsgdmVydGljYWw xSMzxF342RILo lNrgNCDwsH1cXDTqfIPmo IuuQF5rRBHwgbpmWfKEGU NAUIRTIDdGR0E8O7RnGad 7XKVxsGugUM6q oRVjUKesFs7ceMnshCsgT P6iLOCtjfjtUJTlhS2lVY FocILpqGcnRN7nMMPcivp ii512LbXpPDA6 ULRtnQKeI5UvcS6kOpZdP LEgFYVwJ7GksNJsVPexI3 14TRijWhR9WFOlrkMlC1F sLWFsaWduOiB0 r6L5Vf1gLN1hRn9cNOorO U34YB43kXZuq3Z4gZY3X8 CcYXNwyyspxoutfWG4MGA wARKowI85tGAd XMimTb1xp7X8l462VNBjA GDxqH71Ex8nyKphPZJkhS GAlP5rfsaau6oukuqaZjS dSZUpPNm1USb7 WLDlvEgxGrLkDHQ9JoS4X AW1yGUhjI4yfCbfxazktT 9wOyc+EicoHVDiarU5O6O eGko5KVQouCzm CG1xjLYxJKvoUp8kqCxfw JpkAB0zFWCwxrhyVNUtmU 6vQCDzgMVeaOkfFM4tWHN zlogpm220WsSy KSK8GZMebHTcV8EptM4vL gUdBHMxEHNeC1GbtYTcOJ isU165SMvlTeJ6AQFuzrX hJ8McJKGbxZnn XlL4z6A5Tk0VXP8bzYL8A 3OnOny9HIBnfLqxMH4uqP QaODojJd9uxNhhwXknGN8 wNTBpbjtwYWRk fA0rWDNctTHsnHwjJO1bW YGuhvvfw210TqBiYGY6MQ MrkVYdG3NfiQ9uZkGkXQZ sGDGeG3WxlWBu YMeiZ938KRzzCbY1EUIvn iLmJ3XeZLHliGicZeZ5b7 M3Ms2EzQThY2KiF5a9R6W kPjwvdHI+PC90 AJPlFD05xWAzgLRnv3lru Gj6BsQhRVQpIXS1oWioMB ldo3WsLRBsE20dgZEey4P 6IGNvbGxhcHNl FlYpqVN4uP0cFAwytqhrb 7iwywxqIhzxu1gvcl58kK 84X34fRPzxVUHkUPLrWQZ bSANxgZxyiy5b mV5qXk8+LSJetUF9yIL5q L4gMmQzXlW1NWpqP938Hx QeaSLrLravk7qpr7sbtSl 9IjIwJSIgdmFs jSauDOF6n7ZjNe51L11nB HdpZHRoPSIyMCUiIHZhbG lmjh3enQ2rJm5+XO9vg3d tbv15mM27uUC+ KKPvVJT6eOlgLHbzMISix D3vRJjfAnD8GNToGnGdqU 92zEJeZMdxTs0zeGcowTs nUE9hTSKqioct s523RdTqx4teVRSrtEUkO FciRVT1I65bz1L1WVAdCZ EcZVM5cIX0nB3kbJdqhht gbGVmdDsgdmVy oPsuLXmfAEnxQ483DTJxo IanOrPctEUsS1iessAVBG 1lOjwvdGQ+EZSqWQQ8rSo aNRzvOCLdeH7z IKIiX7x7AhGgJdZ5GIcwT 7JvrgX9PPKwlDJfJBVqnK FIhP1pgteto4lgdwisKxS kZOQlEPe7PAu3 ICGxaTfjQdDhABT4BbM8N TY3pDXucN0udAamxdgxfQ 9wOyc+RklOOjwvdGQ+PHR jLHA4fPjwKNmf RSYdpW6pQTSwG4o6TtViG bN3ULtfU3AupmM4EHStiW MaQFYtjUWKdL7zldpgy0r vcjogIzAwMDAw YIz9LBt6EPYtkPtsNuItD OZ0KeF0IWH1aSVfwK3krY eaaflrmP6aWeg+TVJOOjw vdGQ+PHRkIHN0 iSasOMavKFAfmX9oRRRmX 2x8YbUpQtM5DMufP9Btca S3TVOsdDUqZTIhiPGVrO7 afitqs5yvicvu NyIlFEVaKJd8KCp6WRWbh VnxZaDkYOT3PpA4TSK9aV EmsG7kzYcytptgaT7wRnb +AAZ7YMG1HL41 UN79A8GbUejtwKLjgHO+P HRhYmxlIHdpZHRoPScxMD YtViXkdIwxUD0dEk2bTVU yLWNvbGxhcHNl OiBj (more content not included)... Normal [facility] B hCG Qualon 01-31-2021 Beta hCG Ql Negative Normal [facility] Comment on above: Performed By: #### 2 096051, 0302101, 9356733, 77667354, 4717728, 94294868, 6145428 ####[facility] [address] [place] [address] Discharge Instructionson Discharge Instructions [id number]# 1.00CD:127 Normal [facility] ED Clinical Summaryon 2020 ED Clinical Summary [address] [address] ED Clinical Summary Person Information Name: RAJIV TOVAR/[place] Age: 25 Years : 1995 Sex: Female Language: Prydeinig PCP: Alon Weber MD Marital Status: Single [...] 01/30/2021 23:43:48 01/30/2021 23:43:48 01/30/2021 23:43:48 ADDRESS: [address] [place] [id number] PHYS DOC NOTES: MEDICAL INFORMATION: Prescriptions Given: New Medications [id number], [address], [place] [id number], [phone] cephalexin (Keflex 500 mg Cap) 1 Capsules [...] Follow up: With: Address: When: Alon Weber [address] [place] [address], [place] [address] [place] [address] Business (1) In 3 days 02/02/2021 DIAGNOSIS: Acute UTI Normal [facility] ED Note-Physicianon 02-01-20 ED Note-Physician CD:[id number]:61419 2 6RU67vOrkrcZsf2tdxp4v TA8eAxCtjpEbNNpiXr6pe 2rgID27bv6kXdLyUn4+Cj ujBT0MQGtGJLLz dL5vZRONVqpLUlAgFT6pS pJZVn8PNYWwSCuYUEkbLQ 1hOOX0ppunbC1rJD5eTQR stRDxVh6qa2k9 PgubYv0lEz2XBp76uFVec HZdSMCGK9pblV3wTV7xeX NiS9TvLUNhVg5GNNy0dTp shK4ejkM5Rzx5 aOB5Pc75g8xuigKqh6KqS qO6BZlbhKv8vOwjSMrwaM 2hDdBiYMJPnS1ypTxqXZ7 xnZ3rzqZgoBbo biI+CxsjIQOsLrx1iBIdJ C99U7RtnGhbKfg5rRU0XN XlfUDeOBGpfZb8JHGCEAL BLUNvbXBhdGli xPSaVCWihaStxtB8FgkMD DEfGgWeYrs8B5tkHME+Cj kfm5A0Jkw7NKt2JJP7nIv lINIsj053PXCy jRrfnGtteOXuo03rJMFns KUhJfIho345XPBrahG0UA cuyBviDsk1kCNqxNMlq8m ieZq6NzNpTFJh EztAIMGvgLbwt7XlAueWV Vuut3zejoDrwHykOPP0b8 OmTCvnOFKvKBC0TmYoNZ6 +CgkJPGNvbCB2 VWegP266TkOrsEMwk7eti Sc4QsE3OPMwZf6TXEgjD0 5pZ8RsmDD+Tpm0aLHvQUp +CgkJPHRyPgoJ XZf2xBKzy1U3wCX3PwBdk rNum6l3JZmuQVU5LoD8DU H2tBAtwZ1vmZjlsttxcH1 wOyI+CgkJCTxk nMKzX2azn3X5FpKhg8Xoq XzswzSsSRKiBpRer4iqKd skKIUuzP5bSAX5GeJeCYT leHQiIGlkPSJf GtSrRKAaWpWpUAYfVb83O tZuPUy7WInsLpdhDCB3Ht YfCpItJnYbzIcmGR6heSJ kZGluZzogNHB4 OyI+KJUaXQ7fO5ovv9V3M dKfj8FbrCdzykUjf3JyIZ hsRbntzXJoCKQ1nFjuFFM fg876SMpogUyw kYipNy7lMKqdkTX7lT7jK JLaphQ4jH6hEoU3qvVubu dqkwF5Zl1MCGTfPnIIkkV coe6mfSedtbni u8Mmwj53I0HmIP5+CgkJC WzalIZkS2vmc3Q1RxTsm8 Wxq07qgeC3BP2wrQA2OVE aJXGdRsSze5fs YmxlIGRkZnJlZXRleHQiI EBkSbY4fnTks0S6lT8yi9 N9qUO8MzWxnN9ghUiqfKK bMKF6dFVxeGub dZLoQ7plCYXWW3omU62AR YPHMDUKWVPrOJi7PUyzWr QiIGlkPSJfYTMyMjFhZGU pDKLqND31TuYt XOZsVONrFcD7OPVwCiT7V UB0Qo21s9NyxxWnxJtsAV 4iuWBuM5kzYbYwfKGkJWh kMuJsXGYxvG4r LdIhyKK1HISbbRRjYPsyJ 644JUftTrC9MSPliH6zNk LxG8EzPCjkVFnfXRq9EPJ mlaXam8Z1zLO5 ON7pzz8paTthVi5bmI86Y KqbeHW8ZD0jjz8cfIfjgM E6oD7nARKakoR9iF9cRgM xr30rDuU+JiN4 UXO0Lu2xcJUkhVaugSwvY wPwEYDvKOG8GRvnRIGnMJ 8nO0ocTKe0M6TsUP4+PGJ yIC8+CgkJCSYj qTQqBezmHLw1YcdDUTlLC LCsqxAtgXUeph0cHQSmpk EflSV3cHWyVMIpzR89ANF jNFJfMCN4RiBz NbtnERKmbhjacVhgNU7oy I1wBXGxI8z5QgIaZZ5jSm vsRyQ4YZhqFXe1TVeiESn uWZ53WRh4SQJn EBI5NjMeBvCvGbNta7Q5l UV1VlAfu8MtPOh4SE9ybc Y9Kz82Z0Imak3JBVeZPP5 kaXY+CgoJCQk8 TRk7EUSoYIJpJIWoOYXrT 3Btj52cEAWcIARpOCDoOE ZpLXEaNUnyk9OraHIyWZJ 3NHf8YUNwsiOv k6LyEwibCzWkDCupEHC3z L0wX27vON7wVB4EWkYwVM HiFBWuGqJldTE8Nw10VyX 0OXE0YA83DwCe RNE1TEpnUWa2Xd6eGXDcF bHrJLO5DLawDNI3uCuyNA QiTHGdzK4iSeF6zVa3Ww9 7j7FqhaMmnDAg at5kXPMtHQV4sK7vDCanj GxheSI+LNNeKB2pw5T7xO V2ZoBgmbHne2AmF4o2UmP ox5ogCbO6LRc6 QIUhQ09xQVKcn812CPAoS GVybGluZTsiPkNoaWVmIE KpgZTyGJmnlEyyt9Qjca5 7Z8WgNF8+CgoJ NGu6ZYr0GHLuMVEvBJVxN GVtcmNvbnRlbnQiIGRkOm WmuyKbkvE3fGPoJBEUVVL PFERXY00AVKEw KRHlKkJyNcYwCH7sQCY0b BH5ZqIPRaVvBOv0FXAbBQ PbBXEIZk1JINEcKZVAPJA SYCT1XVEPZPPb hWB3Oh02PeQiCrvkCl2sL DHyWGLuDoJcMfnaGs6iVO d9CSZePUkqMdNzToaKOOi 5NLq8ZCUlJCYp PSJkZGVtcmNvbnRlbnRpd BCvGHZhklIxf0MsYugrGb OkTShkc999NW37dZtxGY7 nEDVGX7QIOA3N RUFTIiBkZDplbnRpdHlpZ B4yQEm0WTK3ZGXnFuJjjG Q6Aa6yOPMfTaldMs8xJXF hLTRkMWMtYjNl Hn99RRC1CXs6SCG2NdjbV KgquX8aDdThYQYSlG8kgP joJZ0epG3vvqRjdZtjprX +cHQgYXJyaXZl qxKmj1CruwfvhSSvt3ofF IQgDPFsZDBykE2hfBbkrT HscHObzZSwmN0hkRmcBSS iHW8lYJLjEI6c V54tchG5poE4nQBsxcptl FDfCBS7TSqyFWHamMylKF KqMVAvEVVnfuQqx8IfKBj tBD7qFLfvduMo rTXdFzCeapNbkR6dMAJ1d 4GgVmorHFh3SntOWZo2T6 Xcvy5FPLqCOI6yjPB+Cgo HWBd2CNo8ZTVq ZKGlYZLrJYAeN3Jpf84zB GRyZWZyZXNoYWJsZSBkZG jnz1YbdLXmYWN0GLr8ORF vglTqt8PuHeap KjPdIBdrKFM5eL1wB87fT M3vZB2LSeWrYJQrImIqJj VuhPF3Sj7wE3CfYPT4AM2 vGbSbDAP2IsVi PPw8Ly3wRQW1UkY1RVotO KAzAWI1oRboYQItKWAjaI 4cZtS9hZu3Ib21c7VcuoY pxVSokd3vLJMp VHX9wP2jSXpoiCnzlVS+P NLrEC8rx0L1vAP0AdQyyn Eqt1RnT8f8HcEsi0yrCnR 1CZr6OSZlY88v OLCfd802DCLsLQDqwBwlB EplZylmf7Yrhsppt0XtLD Osp2NmbXJTjComBDIsBI2 ggQWeBrbkz0Qv ez3GSolCAZvotCBxV0rto 0N2JwPrCD4nQ47ywCUrfD FhDMP0Z02vO2ObdR5aLXG RLqBdXRacp733 SK78vVdyRQ3mBP6OH5GLB DLoRSLuRcDjVvZrQN9aAD I0nPM1NuSoIpRmBeU4ZYL 3NIDzSWVHYw33 YzeJKUXYKmN4Q2N1S5T0F XJxmOI0Ir0bCJJ2VekqKA 10FKLuCYQdXWZbQDPsNU1 1LWYvSOC9REF5 VLaqZngBCTe2SDo7FQXuM XNzPSJkZGVtcmNvbnRlbn QwpPBhAnFgXLjio164YJ8 7wSyuDM5pFTUG U0PONY7OGAFESmOxBBckv rRtsKciOW7vKBImNNQ9XQ 70kZQ3jtWnu2oiul6dGCM dlXI1Wm97STPf GecrBK6wZyrjTKV6VNfcU JA7Ye04SLW7HGZwYWCeFB ZnSruBHBr9HDx3GNDsWKO zPSJkZGNvbXBv moMlsMGvELR7IT01zXV0a XH3eFT6oFC6RfExs0NzeJ ScuFWveNH4Zm39F6A3Mmp pRG2dM1OrZPOa WslxYiS5Kk70PIXmGyNbH YK2K4HwWsxGFTt4TAu9KI QrOPCgQVRnEBNiPID6ZSw 2RTTgllAau7Ux NhubYeXsAUjjsO6bcQ1ul CsgI5B3vTjlPFS3m8Rhkx lnaHQiIGlkPSJfMjlkMjM 4QKFmXFMpNC45 Btd5MDYsClCwXTv7IEc2X oI9DbM9Ia4IDBznh5DuW5 fqNiJznZViCXCcLlV1IHS cUJ7nQJHmAN4j pLCov1k6yWGXJNmmg5Rgr 2JioskhijDuoNM7cjGsjy MiUX81rvE3jONqVCNnzDN sqdAxfVL0d5H9 GZ9tBLjunTLcuKu2rAZfm DEnyZDpG0JwAF0oH9VtVS 1dlH8zbPKaWWahYQDmQFV rJ3IpBGFqWW3o OYYrsP5ujK9aVNXtRKIld vT6aKAplLAxgTqrXLKjR1 JpYmVkIGFzIHNoYXJwLCB zubDhz6GtZVTx e66atNc2PXYlRAzbqQImF LEvGJgll5qoHDJrKSD7SR cxJyfeUN5mPLfnz2QdNCE wY2wmRZB2jpVc bnRseSByYXRlZCBhdCBhI OzqOPYkNL4uNEumpgE0q2 bqatXiHJRujKQxcA3rcYn eDPSbf5QgDLIx hP5fg8D1WU7fBXRfw0YzT MAzGQB1iLUwEF6rxy0sHD YivKYpCKQ4u7OixSHlBD7 gKRJoFMP6EI5j yXtqSfX3EZYtOS2rz2UfU IrdmCO0oRZhTY1wDFFhAP 9hd5H5gAT3NeFfKAEpgvb dyB9rJxCixKo3 DMPjVKOhvnnfFp33mW3nY kWvwVt7TJ8emsqtsy00h8 L9LMQaoMtsuPIeK4pmXWG vdHRvbTogMHB4 OyI+Op6xzPgnpQ2stWLgA xZjrBBkUWyzf5CohkBfLt mwg2Cfce7fK5eyYWi4p1A mwhRfoBbgBU6l tAXoMPwtPa96h1C8CVJaa VhygQOyLGnkOk7sq7G2a1 53PMSqzYzalJWsP9udHOA juHfcBWJ9YhDw Y (more content not included)... Normal [facility] Comment on above: Result Comment: Elec tronically [...] this condition includes: ? Antibiotic medicine. ? Hsnp-pow-skljarg medicines to treat discomfort. ? Drinking enough [...] these instructions at home: Medicines ? Take vydq-yjx-rqcmfre and prescription medicines only as told by [...] This in (more content not included)... Normal [facility] ED Patient Summaryon 021 ED Patient Summary [address] [address] Patient Discharge Instructions Person Information Name: RAJIV TOVAR Age: 25 Years Arrival Date: 01/30/2021 20:17:08 Discharge Diagnosis: Acute UTI Primary Care Physician: Alon Weber MD Provider Information Primary Provider: Joshua Hollingsworth DO Advanced Various Exceptionalities Teacher:None The exam and treatment you received in the Emergency Department were for an urgent problem and are not intended as complete care. It is important that you follow up with a doctor, nurse practitioner, or physician?s events administrative assistant for ongoing care. If your symptoms [...] Follow-up Instructions: With: Address: When: Alon Weber [facility], [address] [place] [id number] Business (1) In 3 days 02/02/2021 In the event that this physician does not participate in your insurance network, please consult with your insurance company to find a nearby participating provider. Patient Education Materials: Urinary Tract Infection, Adult A MESSAGE TO ALL PATIENTS REGARDING OPIOIDS PRESCRIPTION OPIOIDS: WHAT YOU NEED TO KNOW Prescription opioids can be used to help relieve kmvgytjj-dq-mhhrdu pain and are often prescribed following a [...] be struggling with addiction, tell your health physician assistant primary care and ask for guidance or call [employer]?S National Helpline at [phone]-HELP. v Source: [place] Department of Health a (more content not included)... Normal [facility] UA With Cult Reflexon 2020 Bacteria LM Ql (Urine sed) 1+ /HPF Abnormal Trace [facility] Comment on above: Performed By: #### 1 [id number] ####[facility] [id number] [place] [address] Bilirubin Ql (U) Negative Normal Negative [facility] Comment on above: Performed By: #### 1 [id number] ####[facility] [id number] [place] [address] Clarity (U) CLOUDY Abnormal Clear [facility] Comment on above: Performed By: #### 1 [id number] ####[facility] [id number] [place] [address] Color (U) YELLOW Normal Yellow [facility] Comment on above: Performed By: #### 1 [id number] ####[facility] [id number] [place] [address] Crystals LM Ql (Urine sed) Present Normal [facility] Comment on above: Performed By: #### 1 [id number] ####[facility] System [address] [place] [address] Epithelial cells.squamous LM.HPF (Urine sed) [#/Area] 0-2 Normal 0-2 [facility] Comment on above: Performed By: #### 1 0261834, 1618146 ####[facility] [address] [place] [address] Glucose Test strip (U) [Mass/Vol] Negative Normal Negative [facility] Comment on above: Performed By: #### 1 6086960, 1512767 ####[facility] [address] [place] [address] Hemoglobin Ql (U) TRACE Abnormal Negative [facility] Comment on above: Performed By: #### 1 2219149, 2064483 ####[facility] [address] [place] [address] Ketones (U) [Mass/Vol] Negative Normal Negative [facility] Comment on above: Performed By: #### 1 5211295, 3773554 ####[address] [address] [place].plasma/Lithi um.RBC (Bld) [Mass ratio] 0-3 Normal 0-3 [facility] Comment on above: Performed By: #### 1 0912688, 0949277 ####[address] [address] Mucus Ql (Urine sed) TRACE Normal Fish er [facility] Comment on above: Performed By: #### 1 9065684, 4760300 ####[address] [address] Nitrite Ql (U) Positive Abnormal Negative [facility] Comment on above: Performed By: #### 1 0544434, 4811340 ####[address] [address] pH (U) 7.5 [pH] Invalid Interpretation Code 5.0-9.0 [facility] Comment on above: Performed By: #### 1 0018679, 6490157 ####[address] [address] Protein (U) [Mass/Vol] Negative Normal Negative [facility] Comment on above: Performed By: #### 1 2847428, 9294873 ####[address] [address] Specific gravity (U) [Rel density] 1.020 Invalid Interpretation Code 1.005-1.030 [facility] Comment on above: Performed By: #### 1 2894603, 2330990 ####[address] [address] Type of Urine collection method Clean Catch Normal [facility] Comment on above: Performed By: #### 1 3110285, 1523735 ####[address] [address] Urobilinogen Qn (U) 0.2 {Arnie'U}/dL Normal 0.0-1.0 [facility] Comment on above: Performed By: #### 1 8274191, 0614795 ####[address] [address] WBC Auto Ql (U) 1+ Abnormal Negative [facility] Comment on above: Performed By: #### 1 2722746, 7537922 ####[address] [place] [address] WBC LM.HPF (Urine sed) [#/Area] 6-15 Abnormal 0-5 [facility] Comment on above: Performed By: #### 1 0728776, 3375545 ####[address] [place] [address] Auto Diffon 01-30-2021 Basophils/100 WBC (Bld) 0.4 % Normal 0.0-2.0 [facility] Comment on above: Order Comment: Order Added by Discern Expert. Performed By: #### 2 495114, 7779083, 5181320, 96924529, 6921796, 33849781, 3064535 ####[address] [address] Basophils/Leukocytes Auto (Bld) [Pure # fraction] 0.0 E9/L Normal 0.0-0.2 [facility] Comment on above: Order Comment: Order Added by Discern Expert. Performed By: #### 2 835443, 2676859, 2515078, 63199362, 3104845, 68729649, 0762187 ####[address] [address] Eosinophils/100 WBC (Bld) 1.4 % Normal 0.0-8.0 [facility] Comment on above: Order Comment: Order Added by Discern Expert. Performed By: #### 2 870692, 6505125, 3730015, 08315722, 3278517, 30669902, 5646398 ####[address] [address] Eosinophils/Leukocyt es Auto (Bld) [Pure # fraction] 0.1 E9/L Normal 0.0-0.5 [facility] Comment on above: Order Comment: Order Added by Discern Expert. Performed By: #### 2 431124, 9266840, 9261419, 28556008, 0782690, 10266757, 6722833 ####[address] [address] Lymphocytes/100 WBC (Bld) 23.7 % Normal 14.0-50.0 [facility] Comment on above: Order Comment: Order Added by Discern Expert. Performed By: #### 2 889266, 8868542, 7613178, 56458433, 1203845, 38505409, 6899150 ####[facility] [address] [place] [address] Lymphocytes/Leukocyt es Auto (Bld) [Pure # fraction] 1.9 E9/L Normal 1.0-4.0 [facility] Comment on above: Order Comment: Order Added by Discern Expert. Performed By: #### 2 360800, 7535916, 3766221, 35570608, 2998451, 20614759, 4388319 ####[address] [place] [address] Monocytes/100 WBC (Bld) 6.2 % Normal 4.0-14.0 [facility] Comment on above: Order Comment: Order Added by Discern Expert. Performed By: #### 2 632466, 1300307, 8625084, 22778661, 5201236, 46729949, 3569053 ####[address] [address] Monocytes/Leukocytes Auto (Bld) [Pure # fraction] 0.5 E9/L Normal 0.2-1.0 [facility] Comment on above: Order Comment: Order Added by Yifan Expert. Performed By: #### 2 956499, 5279623, 4752463, 20116331, 9264551, 67109166, 6444352 ####[address] [place] [address] Neutrophils/100 WBC (Bld) 68.3 % Normal 36.0-75.0 [facility] Comment on above: Order Comment: Order Added by Yifan Expert. Performed By: #### 2 993623, 2711848, 5592043, 73659863, 4013339, 89203547, 1780347 ####[address] [address] Neutrophils/Leukocyt es Auto (Bld) [Pure # fraction] 5.6 E9/L Normal 2.0-7.5 [facility] Comment on above: Order Comment: Order Added by Discern Expert. Performed By: #### 2 385809, 0417414, 1896610, 35774478, 7995937, 51231373, 6286694 ####[facility] [address] [place] [address] BMPon 01-30-2021 Calcium [Mass/Vol] 9.0 mg/dL Normal 8.9-11.1 [facility] Comment on above: Performed By: #### 2 825715, 8012257, 8846561, 78855424, 7152307, 05041448, 2963945 ####[facility] [address] [place] [address] Creatinine [Mass/Vol] 0.7 mg/dL Normal 0.5-1.3 [facility] Comment on above: Performed By: #### 2 129866, 1042878, 3388590, 48494226, 2717377, 07373856, 3768015 ####[facility] [address] [place] [address] Urea nitrogen [Mass/Vol] 10 mg/dL Normal 5-21 [facility] Comment on above: Performed By: #### 2 013955, 4955031, 3920572, 98438463, 3589526, 40679576, 6884854 ####[facility] [address] [place] [address] Urea nitrogen/Creatinine [Mass ratio] 14 No Units Normal 10-20 [facility] Comment on above: Performed By: #### 2 387688, 8849877, 3373106, 14330173, 2256955, 50222658, 5012038 ####[facility] [address] [place] [address] Anion gap [Moles/Vol] 12 mmol/L Normal 6-16 [facility] Comment on above: Performed By: #### 2 372082, 1946469, 0892462, 50838501, 4222535, 76043299, 6346433 ####[facility] [address] [place] [address] Chloride [Moles/Vol] 104 mmol/L Normal 101-111 [facility] Comment on above: Performed By: #### 2 626956, 7462533, 2319609, 92523870, 3235976, 81247074, 6630172 ####[facility] [address] [place] [address] CO2 [Moles/Vol] 25 mmol/L Normal 21-31 [facility] Comment on above: Performed By: #### 2 669492, 1329705, 1633358, 66831982, 5691089, 56468719, 9522566 ####[facility] [address] [place] [address] Glucose [Mass/Vol] 93 mg/dL Normal 55-199 [facility] Comment on above: Result Comment: If t his glucose result represents a fasting glucose, interpretation should refer to the following reference range: 55-99 mg/dL Performed By: #### 2 030374, 6876076, 3840087, 72132609, 9963537, 29566834, 1224918 ####[facility] [address] [place] [address] Potassium [Moles/Vol] 3.8 mmol/L Normal 3.5-5.3 [facility] Comment on above: Performed By: #### 2 411750, 4473314, 4517633, 07517754, 1971680, 44624361, 4968988 ####[facility] [address] [place] [address] Sodium [Moles/Vol] 137 mmol/L Normal 135-145 [facility] Comment on above: Performed By: #### 2 910284, 2239719, 5668958, 26171242, 9904135, 23488806, 9627849 ####[facility] [address] [place] [address] CBC w/ Auto Diffon 08-09-202 1 Erythrocyte distribution width (RBC) [Ratio] 12.2 % Normal 10.9-14.2 [facility] Comment on above: Performed By: #### 2 624520, 6579745, 3584373, 04418840, 3322755, 89662054, 2697234 ####[facility] [address] [place] [address] Hematocrit (Bld) [Volume fraction] 39.3 % Normal 34.0-46.0 [facility] Comment on above: Performed By: #### 2 529723, 4843102, 2662755, 92203109, 2024877, 37425584, 2681835 ####[address] [place] [address] Hemoglobin (Bld) [Mass/Vol] 13.3 g/dL Normal 12.0-16.0 [facility] Comment on above: Performed By: #### 2 326802, 4209284, 6868793, 30830902, 5080121, 90772752, 9705502 ####[facility] [address] [place] [address] MCH (RBC) [Entitic mass] 31.3 pg Normal 27.0-34.0 [facility] Comment on above: Performed By: #### 2 788992, 6829997, 9300496, 63889510, 5931354, 97093959, 3677618 ####[address] [address] MCHC (RBC) [Mass/Vol] 34.0 g/dL Normal 31.4-36.0 [facility] Comment on above: Performed By: #### 2 277753, 3337414, 2733150, 84994701, 3676833, 04665334, 8679990 ####[address] [address] MCV (RBC) [Entitic vol] 92.1 fL Normal 80.0-100.0 [facility] Comment on above: Performed By: #### 2 967540, 4945931, 2003882, 25081342, 9647682, 29320291, 1359719 ####[facility] [address] [place] [address] Platelet mean volume (Bld) [Entitic vol] 9.2 fL Normal 6.4-10.8 [facility] Comment on above: Performed By: #### 2 512749, 4284916, 7691212, 92225908, 7901514, 91489080, 5358211 ####[facility] [address] [place] [address] Platelets (Bld) [#/Vol] 214.0 E9/L Normal 150.0-500.0 [facility] Comment on above: Performed By: #### 2 777589, 6568808, 2189888, 41417766, 2633983, 94113795, 1456328 ####[address] [place] [address] RBC (Bld) [#/Vol] 4.3 E12/L Normal 4.3-5.9 [facility] Comment on above: Performed By: #### 2 357155, 2048710, 8322433, 06675831, 7742028, 16663181, 3941600 ####[address] [place] [address] WBC corrected for nucl RBC Auto (Bld) [#/Vol] 8.2 E9/L Normal 4.0-11.0 [facility] Comment on above: Performed By: #### 2 894131, 9384923, 2509424, 98341652, 0711551, 93581880, 8068310 ####[address] [place] [address] Consent for Treatmenton Consent for Treatment [id number] .00CD:127 Normal [facility] Hep Func Panelon 01-30-2021 Albumin [Mass/Vol] 4.0 g/dL Normal 3.3-5.0 [facility] Comment on above: Performed By: #### 2 674336, 6614493, 0384972, 48812003, 7295981, 62274519, 0435790 #### [facility] [address] [place] [address] Albumin/Globulin (S) [Mass conc ratio] 1.5 Normal 1.1-2.2 [facility] Comment on above: Performed By: #### 2 427716, 2987749, 5851474, 25452798, 4076728, 15101095, 5382263 #### [facility] [address] [place] [address] ALP [Catalytic activity/Vol] 44 Int._Unit/L Normal 21-98 [facility] Comment on above: Performed By: #### 2 253005, 8509584, 8624043, 09571769, 8111020, 04121072, 9987408 #### [facility] [address] [place] [address] ALT No additional P-5'-P [Catalytic activity/Vol] 20 Int._Unit/L Normal 6-46 [facility] Comment on above: Performed By: #### 2 227640, 1812114, 8227406, 68393520, 9616914, 10344801, 0607141 #### [facility] [address] [place] [address] AST [Catalytic activity/Vol] 16 Int._Unit/L Normal 5-43 [facility] Comment on above: Performed By: #### 2 149932, 2517903, 7150906, 45239259, 9821062, 62640489, 2591092 #### [facility] [address] [place] [address] Bilirubin [Mass/Vol] 1.1 mg/dL Normal 0.0-1.1 [facility] Comment on above: Performed By: #### 2 322549, 2019606, 4338666, 88092861, 7145006, 24868316, 7102959 #### [facility] [address] [place] [address] Bilirubin.direct [Mass/Vol] 0.2 mg/dL Normal 0.1-0.4 [facility] Comment on above: Performed By: #### 2 278750, 3597812, 6738772, 11341610, 3721917, 02444868, 2737830 #### [facility] [address] [place] [address] Bilirubin.indirect [Mass or moles/Vol] 0.9 mg/dL Normal 0.1-0.9 [facility] Comment on above: Performed By: #### 2 892006, 2274974, 3739220, 97840986, 8817171, 94244537, 5096446 #### [facility] [address] [place] [address] Globulin (S) [Mass/Vol] 2.6 g/dL Normal 1.4-4.0 [facility] Comment on above: Performed By: #### 2 551415, 2109629, 4247147, 45525976, 6968428, 05566821, 8803010 #### [facility] [address] [place] [address] Protein [Mass/Vol] 6.6 g/dL Normal 6.0-7.8 [facility] Comment on above: Performed By: #### 2 683334, 8548229, 3400220, 64668908, 6748225, 79951921, 2337387 #### [facility] [address] [place] [address] Lipase Levelon 01-30-2021 Lipase [Catalytic activity/Vol] 32 U/L Normal 13-58 [facility] Comment on above: Performed By: #### 2 323681, 0190750, 6799564, 02715463, 3481400, 86004975, 1831133 #### [facility] [address] [place] [address] eGFRon 01-30-2021 GFR/1.73 sq M.predicted among blacks MDRD (S/P/Bld) [Vol rate/Area] mL/min/{1.73_m2} Normal >=59 [facility] Comment on above: Order Comment: Order added by Discern Expert. Result Comment: eGFR is race adjusted. AA=. Performed By: #### 2 326964, 0883701, 5182930, 05181294, 0419888, 48640001, 9827213 #### [facility] [address] [place] [address] GFR/1.73 sq M.predicted among non-blacks MDRD (S/P/Bld) [Vol rate/Area] mL/min/{1.73_m2} Normal >=59 [facility] Comment on above: Order Comment: Order added by Discern Expert. Result Comment: Diesel Fitter Mechanic bib kidney disease could be indicated at eGFR's of less than 60 mL/min/1.73m2. Kidney failure is indicated at less than 15 mL/min/1.73m2. Performed By: #### 2 801784, 1959494, 9121881, 24729254, 7856154, 21356206, 2354799 #### [facility] [address] [place] [address] Provider Letteron 06-03-2020 Provider Letter June 03, 2020 To Whom It May Concern, Rajiv has been under my care and had a lap choly on 05/10/2020. She was seen post operatively on 05/23/2020 and was healing well. Rajiv is released to work on 06/06/2020 with no restrictions. Please call the office at [phone] with any questions/ concerns. Sincerely, Dr. Aiden Izquierdo faxed to [facility] to [phone] Normal [facility] Ambulatory Clinical Summaryo n 05-23-2020 Ambulatory Clinical Summary {[id number]}CD:846816 Normal [facility] General Surgery Office/Clini c Noteon 05-23-2020 General [...] POLK, Aiden Davila Only if needed [address] [place] [address]- Additional Instructions: F/U PRN Problem List/Past Medical [...] Family History Family history is negative Normal [facility] Comment on above: Result Comment: Elec tronically Signed By: Aiden IZQUIERDO MD\.br\Date and Time Signed: 05/23/20 10:17 EST\.br\Electronically Co-Signed By: Mildred Cook MA\.br\Date and Time Co-Signed: 05/23/20 09:55 EST IntraOperative Documentson 1 07-17-2019 IntraOperative Documents [id number]#1 .00CD:127 Normal [facility] Ambulatory Clinical Summaryo n 05-16-2020 Ambulatory Clinical Summary {[id number] -[id number]}CD:284743 Normal [facility] Gastroenterology Office/Clin ic Noteon 05-16-2020 Gastroenterology Office/Clinic [...] was severe for which she went to [facility] ER, she had normal CBC, CMP and [...] Information Ezequiel MARTINEZ MD Only if needed [facility] [address], [place] [address]- Additional Instructions: Patient Education Cholelithiasis Problem List/Past [...] Normal Ananth [facility] Comment on above: Result Comment: Lupe mandel [...] required. HOME CARE INSTRUCTIONS ? Only take niyn-qjs-rugcujq or prescription medicines for pain, discomfort, or [...] Document Reviewed: 08/09/2011 ExitCare? Patient Information ?2013 [employer]. [facility] Coding Summary.on 05-13-2020 Coding Summary. CODING DATE: 05/13/2020 FINAL [facility] STATUS: Home (Routine DC) PAYOR: Reba APC DESCRIPTION 5361 Level 1 Laparoscopy and Related Services ADMIT DX: REASON FOR VISIT DX: K81.1 Chronic cholecystitis FINAL DX: PRINCIPAL: K81.1 Chronic cholecystitis SECONDARY: K82.8 Other specified diseases of gallbladder F41.9 Anxiety disorder, unspecified PYMT PROC APC STAT DESCRIPTION DOCTOR NAME DATE 66109 5361 J1 Laparoscopy, surgical; Aiden IZQUIERDO MD 05/10/2020 cholecystectomy with cholangiography 00129 Anesthesia for Bakari Husain Jr, DO 05/10/2020 intraperitoneal procedures in upper abdomen including laparoscopy; not otherwise specified NOTE: The code number assigned matches the documented diagnosis and / or procedure in the patient's chart. However, the narrative phrase printed from the coding software may appear abbreviated, or result in slightly different terminology. Revised Coded By: Eugeina Mae Revised Date Saved: 05/13/2020 02:09 pm [facility] Main OR Intraoperative Recor don 05-13-2020 Main OR Intraoperative Record IntraOp Document Type FT Summary Primary Physician: Aiden IZQUIERDO MD Finalized Date/Time: 05/13/20 11:07:53 Pt. Name: RAJIV TOVAR/Sex: 1995 Female Med Rec #: [id number] Physician: Aiden IZQUIERDO MD Financial #: [id number] Pt. Type: A Room/Bed: Admit/Disch: 05/10/20 07:43:57 - 05/10/20 15:00:00 Institution: Case Times FT Entry 1 Patient Times In Room 05/10/20 09:29:00 Out Room 05/10/20 10:27:00 Procedure Times Start 05/10/20 09:44:00 Stop 05/10/20 10:20:00 Anesthesia Times Start 05/10/20 09:29:00 Stop 05/10/20 10:27:00 Last Modified By: My Callahan RN 05/10/20 10:27:42 General Comments: 1011- photogrammetric tech called dr. guo read xray dilated tapers distally can't exclude small stone possible spasm , Dr. Izquierdo stated understanding. - joan turner 05/13/2020 Chart opened to review and send charges. Angela Leavitt HUMAN RESOURCES EXECUTIVE ASSISTANT. Case Attendance FT Entry 1 Entry 2 Entry 3 Case Attendee Ankit AGUILAR, Linnea IZQUIERDO MD, Aiden ARAUJO MD, Ramandeep Cummings Role Performed Anesthesiologist Surgeon - Primary Surgeon - Assist 1 Rubber Compounder Supervisor Time In 05/10/20 09:29:00 05/10/20 09:40:00 05/10/20 [...] [place] TURNER, My Villalba RN, Bernadette Osman. Button Bradder, Arlette Davila Role Performed Obstetrical Nurse - Primary Scrub - Primary Scrub - [...] Magalie R Role Performed Scrub - Primary Revenue Research Analyst Time In 05/10/20 09:29:00 05/10/20 10:00:00 Time Out 05/10/20 10:27:00 05/10/20 10:03:00 Procedure CHOLECYSTECTOMY CHOLECYSTECTOMY LAPAROSCOPIC W/ LAPAROSCOPIC W/ CHOLANGI(.) CHOLANGI(.) Comments Last Modified By: yM Callahan RN, RN, Emily A 05/10/20 10:27:43 [...] Bray RN, Deejay Chowdhury RN, Angel Oglesby Button Bradder, Carlos Rock CST, Macie C Time Out [...] By: Artemio (more content not included)... Normal [facility] Postoperative Documentson Postoperative Documents [id number]# 1.00CD:127 Normal [facility] Progress Note-Physicianon Progress Note-Physician Patient: RAJIV TOVAR [...] # 10 tab(s), Refills(s) 0, [id number], cm, 04/19/20 6:20:00 EDT, Height/Length Dosing, 58.5, kg, 04/19/20 6:20:00 EDT, Weight Dosing omeprazole 40 mg Cap-DR: 40 mg = 1 cap(s), Oral, Daily, # 30 cap(s), Refills(s) 2, [id number], 168, cm, 04/20/20 10:06:00 EDT, Height/Length Dosing, 59.5, kg, 04/20/20 10:06:00 EDT, Weight Dosing Documented Medications Documented desvenlafaxine 100 mg Tab-: 100 mg = 1 tab(s), Oral, Daily, Refills(s) 0, Depression Problem list: All Problems Biliary dyskinesia / SNOMED CT 059894618 / Confirmed Depression / SNOMED CT 19687147 / Confirmed Histories Past Medical History: No active or resolved past medical history items have been selected or recorded. Family History: Entire family history is negative. Procedure history: EGD (esophagogastroduoden oscopy) gastric outlet reduction ([id number]) on 04/29/2020 at 25 Years. section (63090392) on 07/23/2019 at 24 Years. Sinus (3323860626). Nasal cautery (005722805). Ankle (0909188). Comments: 05/10/2020 8:24 EST - Kluding PRIVATE INVESTIGATOR, Bernarda Bilateral ankle stabilazation for flat feet Diagnostic laparoscopy (863809640). Comments: 05/10/2020 8:26 EST - Kluding PRIVATE INVESTIGATOR, Bernarda ovarian cyst drained Social History Social [...] 10:15 EST Heart (more content not included)... [facility] Comment on above: Result Comment: Elec tronically Signed By: Bakari Husain Jr, DO\.br\Date and Time Signed: 05/13/20 13:23 EST Progress Note-Physician Patient: RAJVI TOVAR Age: 25 years Sex: Female : 1995 Associated Diagnoses: None Author: Bakari Huasin Jr, DO Postoperative Information Post Operative Note: Post Anesthesia Care Unit. Anesthetic utilized: General. Health Status Allergies: Allergic Reactions (Selected) Severity Not Documented HYDROcodone- Hives. OxyCODONE- Hives. Penicillin- Hives. Problem list: All Problems Biliary dyskinesia / SNOMED CT 409919459 / Confirmed Depression / SNOMED CT 39547702 / Confirmed Physical Examination Vital Signs 05/10/2020 [...] EST Apic (more content not included)... Normal [facility] Comment on above: Result Comment: Elec tronically Signed By: Bakari Husain Jr, DO\.br\Date and Time Signed: 05/13/20 13:20 EST Coding Summary.on 05-12-2020 Coding Summary. CODING DATE: 05/12/2020 FINAL [facility] STATUS: Home (Routine DC) PAYOR: [...] Jaquez CphT Date Saved: 05/12/2020 09:53 pm [facility] Consent for Anesthesiaon Consent for Anesthesia [id number]# 1.00CD:127 [facility] Discharge Instructionson Discharge Instructions [id number]# 1.00CD:127 [facility] IntraOperative Documentson 1 07-11-2019 IntraOperative Documents [id number]# 1.00CD:127 [facility] Operative Reporton 0 Operative Report Date of Surgery: 05/10/2020 SURGEON: Aiden Izquierdo MD, FACS WALLPAPER INSPECTOR: Ramandeep Araujo MD, FACS PREOPERATIVE DIAGNOSIS: Chronic [...] the Recovery Room in stable condition. Aiden Izquierod MD, FACS lkr Dictated: 05/10/2020 #[id number] Typed: 05/10/2020 #[id number] cc: Alon Weber M.D. Aiden Izquierdo MD, FACS [facility] Comment on above: Result Comment: Elec tronically Signed By: TIMBO POLK, Aiden Davila\.br\Date and Time Signed: 05/11/20 08:04 EST Preoperative Documentson Preoperative Documents [id number]# 1.00CD:127 [facility] Preoperative Documents [id number]# 1.00CD:127 [facility] Consent for Treatmenton 04-24 Consent for Treatment [id number]#1 .00CD:127 [facility] Inpatient Patient Summaryon 05-10-2020 Inpatient Patient Summary [address] [address] [facility] Clinical Discharge Instructions PERSON INFORMATION Name: RAJIV TOVAR [facility]#:[id number] PHYSICIANS Admitting Physician: Aiden IZQUIERDO MD Attending Physician: Aiden IZQUIERDO MD PCP: Gus POLK, Alon Discharge Diagnosis: Chronic cholecystitis with calculus Comment: PATIENT EDUCATION INFORMATION Instructions: Post Op Patient Instructions - MANFRED (CUSTOM); How to Use an Incentive Spirometer; Timbo - Post Op Instructions (CUSTOM) Medication Leaflets: Follow up: With: Address: When: Aiden IZQUIERDO [address] [place] [address] Business (1) Within 7 to 10 days Comments: Call for any problems. Call for followup appointment Type Location Start [facility] Follow Up [facility] 05/16/2020 1:00 PM 05/16/2020 1:15 PM Confirmed MEDICATION LIST Medications to Continue with No Changes Other Medications desvenlafaxine (desvenlafaxine 100 mg Tab-) 1 Tablets By Mouth every day. omeprazole (omeprazole 40 mg Cap-DR) 1 Capsules By Mouth every day. Refills: 2. ondansetron (Zofran ODT 4 mg Tab) 1 Tablets By Mouth 3 times a day. Refills: 0. Comment: Normal [facility] IntraOperative Documentson 07-10-2019 IntraOperative Documents [id number]# 1.00CD:127 [facility] Main OR PACU I Recordon 04-24 Main OR PACU I Record PACU Phase I Document Type FT Summary Primary Physician: Aiden IZQUIERDO MD Finalized Date/Time: 05/10/20 11:13:04 Pt. Name: RAJIV TOVAR/Sex: 1995 Female Med Rec #: [id number] Physician: iAden IZQUIERDO MD Financial #: [id number] Pt. Type: A Room/Bed: Admit/Disch: 05/10/20 07:43:57 [...] By: Belkys Yarbrough RN 05/10/20 11:13 Normal [facility] Main OR PACU II Recordon Main OR PACU II Record PACU Phase II Document Type FT Summary Primary Physician: Aiden IZQUIERDO MD Finalized Date/Time: 05/10/20 15:45:07 Pt. Name: RAJIV TOVAR/Sex: 1995 Female Med Rec #: [id number] Physician: Aiden IZQUIERDO MD Financial #: [id number] Pt. Type: A Room/Bed: Admit/Disch: 05/10/20 07:43:57 [...] By: Marcelina Cadet RN 05/10/20 15:45 Normal [facility] Main OR Preoperative Recordo n 05-10-2020 Main OR Preoperative Record PreOp Document Type FT Summary Primary Physician: Aiden IZQUIERDO MD Finalized Date/Time: 05/10/20 10:00:50 Pt. Name: RAJIV TOVAR /Sex: 1995 Female Med Rec #: [id number] Physician: Aiden IZQUIERDO MD Financial #: [id number] Pt. Type: A Room/Bed: 06/24 Admit/Disch: 05/10/20 [...] By: My Callahan RN 05/10/20 10:00 Normal [facility] Monitor Recordon 05-10-2020 Monitor Record [id number]# 1.00CD:127 Normal [facility] Outpatient Surgery Discharge Instructionon 05-10-2020 Outpatient Surgery Discharge Instruction [place] [id number] Patient Discharge Instructions PERSON INFORMATION Name: RAJIV [...] Follow up: With: Address: When: [facility] [address] [place] [address] [facility] () Within 7 to 10 days Comments: Call for any problems. Call for followup appointment Type Location [facility] Follow Up [facility] 05/16/2020 1:00 PM 05/16/2020 1:15 PM Confirmed Pharmacy Information: Thank you for choosing [facility] HERE ARE THE MEDICATION CHANGES [...] possible. ? If the spirometer includes a sales coach indicator, use this to guide you [...] from co (more content not included)... Normal [facility] Patient Education - Texton 1 07-10-2019 Patient [...] possible. ? If the spirometer includes a sales coach indicator, use this to guide you [...] 10/21/2007 Document Revised: 07/03/2018 Document Reviewed: 04/23/2018 [employer] Patient Education ? 2019 [employer]. [place], [place] Aiden Izquierdo MD, FACS POST OPERATIVE [...] or r (more content not included)... Normal [facility] Progress Note-Physicianon Progress Note-Physician Patient: RAJIV TOVAR Age: 25 years Sex: Female : 1995 Associated Diagnoses: None Author: Aiden IZQUIERDO MD Postoperative Information Date/ Time: 05/10/2020 10:26:00 Preoperative Diagnosis: Chronic cholecystitis with calculus ([id number] K80.10, Working, Medical). Postoperative Diagnosis: Same pending pathology. Procedure: Laparoscopic Cholecystectomy with intraoperative chloangiogram. Performed by: Aiden Izquierdo MD. Rubber Compounder Supervisor: Ramandeep Araujo MD. Specimens Removed: Gallbladder. Estimated Blood Loss: 5 ml. Complications: None. Normal [facility] Comment on above: Result Comment: Elec tronically Signed By: Aiden IZQUIERDO MD\.br\Date and Time Signed: 11/17/20 10:27 EST Progress Note-Physician Patient: RAJIV TOVAR Age: 25 years Sex: Female : 1995 Associated Diagnoses: None Author: Aiden IZQUIERDO MD Basic Information No change in History and Physical Normal [facility] Comment on above: Result Comment: Elec tronically [...] ALSO POSSIBLE. CLINICAL HISTORY: Cholelithiasis. COMMENT: Limited emmqn-wm-ilps C-arm images were obtained in the OR, [...] Dose: Ka,r in mGy = 3.4 Normal [facility] Coding Summary.on 05-08-2020 Coding Summary. CODING DATE: 05/07/2020 FINAL [facility] STATUS: Home (Routine DC) PAYOR: [place] ADMIT DX: REASON FOR VISIT DX: Z01.812 [...] CphT Date Saved: 05/07/2020 10:24 pm Normal [facility] Coding Summary.on 05-05-2020 Coding Summary. CODING DATE: 05/05/2020 FINAL [facility] DSC STATUS: Home (Routine DC) PAYOR: Reba APC DESCRIPTION 5301 Level 1 Upper GI Procedures ADMIT DX: REASON FOR VISIT DX: R10.13 Epigastric pain FINAL DX: PRINCIPAL: R10.13 Epigastric pain SECONDARY: R10.11 Right upper quadrant pain F41.9 Anxiety disorder, unspecified PYMT PROC APC STAT DESCRIPTION DOCTOR NAME DATE 83560 5301 Ezequiel WEST MD 04/29/2020 phagogastroduodenosco py, flexible, transoral; with biopsy, single or multiple 45298 Anesthesia for upper Husain Bakari Berry DO [...] Mae Revised Date Saved: 05/05/2020 11:48 am [facility] Consent for Procedure/Surger yon 05-05-2020 Consent for Procedure/Surgery [id number]#1 .00CD:127 [facility] Formson 05-05-2020 Forms [id number]#1 .00CD:127 [facility] Priority Order-Mitchell 2019 Priority Order-STAT Comment Invalid Interpretation Code [facility] Comment on above: Result Comment: Rece ived Performed at: [facility] [address] [facility], [place] [id number] [facility] Johanny Lozano Performed By: #### 2 [id number], SARS-CoV-2, MARY #### [facility] Laboratory [address] [place] [address] SARS-CoV-2, NAAon 05-05-2020 SARS-CoV-2 (COVID-19) RNA MARY+probe Ql (Resp) Not detected Invalid Interpretation Code Not Detected [facility] Comment on above: Result Comment: This nucleic acid amplification test was developed and its performance characteristics determined by [employer]. Nucleic acid amplification tests include PCR and [...] result in this assay. Performed at: [facility] [address] [facility], [place] [id number] MD Indira Washington Performed By: #### 2 [id number], SARS-CoV-2, MARY #### [facility] [address] [place] [address] B hCG Qualon 05-04-2020 Beta hCG Ql Negative Normal [facility] Comment on above: Performed By: #### 2 [id number] #### [facility] [address] [place] [address] CBC w/Indiceson 05-04-2020 Erythrocyte distribution width (RBC) [Ratio] 13.1 % Normal 10.9-14.2 [facility] Comment on above: Performed By: #### 2 208707, [id number] ####[address] [address] Hematocrit (Bld) [Volume fraction] 40.5 % Normal 34.0-46.0 [facility] Comment on above: Performed By: #### 2 594481, 2377656 ####[address] [address] Hemoglobin (Bld) [Mass/Vol] 14.0 g/dL Normal 12.0-16.0 [facility] Comment on above: Performed By: #### 2 897075, 0216146 ####[address] [address] MCH (RBC) [Entitic mass] 31.0 pg Normal 27.0-34.0 [facility] Comment on above: Performed By: #### 2 821479, [id number] ####[address] [address] MCHC (RBC) [Mass/Vol] 34.6 g/dL Normal 31.4-36.0 [facility] Comment on above: Performed By: #### 2 306958, 9349527 ####[address] [address] MCV (RBC) [Entitic vol] 89.7 fL Normal 80.0-100.0 [facility] Comment on above: Performed By: #### 2 934084, 4501858 ####[address] [address] Platelet mean volume (Bld) [Entitic vol] 9.1 fL Normal 6.4-10.8 [facility] Comment on above: Performed By: #### 2 292280, 5582527 ####[address] [address] Platelets (Bld) [#/Vol] 245.0 E9/L Normal 150.0-500.0 [facility] Comment on above: Performed By: #### 2 905996, 2685305 ####[facility] [address] [place] [address] RBC (Bld) [#/Vol] 4.5 E12/L Normal 4.3-5.9 [facility] Comment on above: Performed By: #### 2 473644, 0320698 ####[facility] [address] [place] [address] WBC corrected for nucl RBC Auto (Bld) [#/Vol] 5.6 E9/L Normal 4.0-11.0 [facility] Comment on above: Performed By: #### 2 801837, 7982403 ####[place] [address]357 Consent for Treatmenton 04-24 Consent for Treatment [id number]#1 .00CD:127 Normal [facility] Hep Func Panelon 05-04-2020 Albumin [Mass/Vol] 4.2 g/dL Normal 3.3-5.0 [facility] Comment on above: Order Comment: if no t already done. Performed By: #### 2 957908, 9676254 ####[facility] [address] [place] [address] Albumin/Globulin (S) [Mass conc ratio] 1.4 Normal 1.1-2.2 [facility] Comment on above: Order Comment: if no t already done. Performed By: #### 2 748036, 7937463 ####[facility] [address] [place] [address] ALP [Catalytic activity/Vol] 112 Int._Unit/L High 21-98 [facility] Comment on above: Order Comment: if no t already done. Performed By: #### 2 896623, 8582665 ####[facility] [address] [place] [address] ALT No additional P-5'-P [Catalytic activity/Vol] 129 Int._Unit/L High 6-46 [facility] Comment on above: Order Comment: if no t already done. Performed By: #### 2 598076, 4055638 ####[facility] [address] [place] [address] AST [Catalytic activity/Vol] 28 Int._Unit/L Normal 5-43 [facility] Comment on above: Order Comment: if no t already done. Performed By: #### 2 216174, 9548270 ####[address] [address] Bilirubin [Mass/Vol] 0.7 mg/dL Normal 0.0-1.1 [facility] Comment on above: Order Comment: if no t already done. Performed By: #### 2 773238, 5432696 ####[address] [address] Bilirubin.direct [Mass/Vol] 0.1 mg/dL Normal 0.1-0.4 [facility] Comment on above: Order Comment: if no t already done. Performed By: #### 2 612890, 6976587 ####[facility] [address] [place] [address] Bilirubin.indirect [Mass or moles/Vol] 0.6 mg/dL Normal 0.1-0.9 [facility] Comment on above: Order Comment: if no t already done. Performed By: #### 2 990344, 0516260 ####[address] [address] Globulin (S) [Mass/Vol] 3.1 g/dL Normal 1.4-4.0 [facility] Comment on above: Order Comment: if no t already done. Performed By: #### 2 361668, 4270785 ####[address] [address] Protein [Mass/Vol] 7.3 g/dL Normal 6.0-7.8 [facility] Comment on above: Order Comment: if no t already done. Performed By: #### 2 570686, 8539240 ####[facility] [address] [place] [address] Ambulatory Clinical Summaryo n 05-03-2020 Ambulatory Clinical Summary {[id number]}CD:579773 [facility] Consent for Procedure/Surger yon 05-03-2020 Consent for Procedure/Surgery [id number]#1 .00CD:127 Normal [facility] Consent for Procedure/Surgery [id number]#1 .00CD:127 [facility] Formson 05-03-2020 Forms [id number]#1 .00CD:127 [facility] Forms [id number]#1 .00CD:127 [facility] Physician Orderon 05-03-2020 Physician Order [id number]#1 .00CD:127 [facility] Physician Referralon 020 Physician Referral [id number]#1 .00CD:127 [facility] Postoperative Documentson Postoperative Documents [id number]# 1.00CD:127 [facility] Progress Note-Physicianon Progress Note-Physician Patient: RAJIV [...] 10 tab(s), Refills(s) 0, Pharmacy: [facility]/pharmacy #[id number], 168, cm, 04/19/20 6:20:00 EDT, Height/Length Dosing, 58.5, kg, 04/19/20 6:20:00 EDT, Weight Dosing omeprazole 40 mg Cap-DR: 40 mg = 1 cap(s), Oral, Daily, # 30 cap(s), Refills(s) 2, Pharmacy: [facility]/pharmacy #[id number], 168, cm, 04/20/20 [...] Cardiovascular: Regular rhythm. Neurologic: Alert, Oriented. Plan [place] [employer] Anesthesiologists (ASA) physical status classification: Class II. Anesthetic Preoperative Plan Anesthesia: General. . Anesthetic plan, risks, benefits, and alternatives discussed with the patient and/or family. Communication: face to face with (patient 5 minutes, Patient educated on smoking cesstation). Normal [facility] Comment on above: Result Comment: Elec tronically [...] vomiting. Plan Transfer/ Discharge: Condition stable. Normal [facility] Comment on above: Result Comment: Elec tronically Signed By: Bakari Husain Jr, DO\.ilana\Date and Time Signed: 05/03/20 09:37 EST Consenton 05-02-2020 Consent [id number]#1 .00CD:127 Normal [facility] Discharge Instructionson Discharge Instructions [id number]#1 .00CD:127 Normal [facility] General Surgery Office/Clini c Noteon 05-02-2020 General [...] When Contact Information TIMBO POLK, Aiden Davila [address] [place] [address] [address] [place] [address]- Additional Instructions: F/U POST OP. [...] Family History Family history is negative Normal [facility] Comment on above: Result Comment: Elec tronically Signed By: Aiden IZQUIERDO MD\.br\Date and Time Signed: 05/02/20 15:39 EST\.br\Electronically Co-Signed By: Mildred Cook MA.br\Date and Time Co-Signed: 05/02/20 15:25 EST IntraOperative Documentson 1 07-02-2019 IntraOperative Documents [id number]#1 .00CD:127 Normal [facility] IntraOperative Documents [id number]#1 .00CD:127 Normal [facility] Main OR Intraoperative Recor don 05-02-2020 Main OR Intraoperative Record IntraOp Document Type FT Summary Primary Physician: Ezequiel MARTINEZ MD Finalized Date/Time: 05/02/20 08:23:39 Pt. Name: RAJIV TOVAR/Sex: 1995 Female Med Rec #: [id number] Physician: Ezequiel MARTINEZ MD Financial #: [id number] Pt. Type: O Room/Bed: / Admit/Disch: 04/29/20 10:12:58 - 04/29/20 23:59:59 Institution: Case Times FT Entry 1 Patient Times In Room 04/29/20 10:52:00 Out Room 04/29/20 11:04:00 Procedure Times Start 04/29/20 10:56:00 Stop 04/29/20 10:59:00 Anesthesia Times Start 04/29/20 10:52:00 Stop 04/29/20 11:04:00 Last Modified By: Russell Maloney RN 04/29/20 11:04:12 General Comments: 05/02/2020 Chart opened to review and send charges. F Dagmar HUMAN RESOURCES EXECUTIVE ASSISTANT. Case Attendance FT Entry 1 Entry 2 Entry 3 Case Attendee Rodrigue Berry DO, Bakari MARTINEZ MD, Ezequiel Maloney RN, Russell [place] Role Performed Anesthesiologist of Surgeon - Primary Obstetrical Nurse - Primary Record Time In 04/29/20 10:52:00 04/29/20 10:52:00 04/29/20 10:52:00 Time Out 04/29/20 11:04:00 04/29/20 11:04:00 04/29/20 11:04:00 Procedure EGD(.) EGD(.) EGD(.) Comments Last Modified By: Haider TURNER, Russell Maloney RN, Russell Santos RN 04/29/20 11:04:13 04/29/20 11:04:13 04/29/20 11:04:13 Entry 4 Entry 5 Entry 6 Case Attendee Mere TURNER, Charlotte Roberts CST, Aria Role Performed Obstetrical Nurse - Primary Scrub - Primary Staff - [...] Arm P (more content not included)... Normal [facility] Provider [facility] [facility] Ezequiel Martinez M.D. [address] [place] [address] Re: RAJIV TOVAR Date of : 1995 [...] report following her procedure. Sincerely Aiden Eusebio [facility] Coding Summary.on 04-30-2020 Coding Summary. CODING DATE: 04/29/2020 FINAL [facility] STATUS: Home (Routine DC) PAYOR: [...] Jaquez CphT Date Saved: 04/29/2020 11:14 pm [facility] Consent for Treatmenton Consent for Treatment [id number]#1 .00CD:127 [facility] Endoscopic Procedure Report - Otheron 04-29-2020 [...] surgery for right upper quadrant pain/cholelithiasis Normal [facility] Comment on above: Result Comment: Elec tronically Signed By: Ezequiel MARTINEZ MD\.br\Date and Time Signed: 04/29/20 11:03 EST Other Comment: Lorri frazier Attachment - attachment storage system not supported [id number] Can be viewed in source systemMissing Attachment - attachment storage system not supported [id number] Can be viewed in source systemMissing Attachment - attachment storage system not supported [id number] Can be viewed in source systemMissing Attachment - attachment storage system not supported [id number] Can be viewed in source systemMissing Attachment - attachment storage system not supported [id number] Can be viewed in source system Inpatient Patient Summaryon 04-29-2020 Inpatient Patient Summary [address] [address] [facility] Clinical Discharge Instructions PERSON INFORMATION Name: RAJIV TOVAR [facility]#:[id number] PHYSICIANS Admitting Physician: Ezequiel MARTINEZ MD Attending Physician: Ezequiel MARTINEZ MD PCP: Alon Weber MD Discharge Diagnosis: Abdominal pain Comment: PATIENT EDUCATION INFORMATION Instructions: Medication Leaflets: Follow up: With: Address: When: Aiden IZQUIERDO [address], [address] [place] [address] Business (1) With: Address: When: [facility] [address], [place] [address] Within 2 weeks Type Location Start [facility] Follow Up [facility] 05/16/2020 1:00 PM 05/16/2020 1:15 PM [...] times a day. Refills: 0. Comment: Normal [facility] Main OR PACU I Recordon Main OR PACU I Record PACU Phase I Document Type FT Summary Primary Physician: Ezequiel MARTINEZ MD Finalized Date/Time: 04/29/20 12:13:51 Pt. Name: RAJIV TOVAR/Sex: 1995 Female Med Rec #: [id number] Physician: Ezequiel MARTINEZ MD Financial #: [id number] Pt. Type: O Room/Bed: / Admit/Disch: 04/29/20 [...] By: Belkys Yarbrough RN 04/29/20 12:13 Normal [facility] Main OR Preoperative Recordo n 04-29-2020 Main OR Preoperative Record Holding Area Document Type FT Summary Primary Physician: Ezequiel MARTINEZ MD Finalized Date/Time: 04/29/20 10:21:44 Pt. Name: RAJIV TOVAR/Sex: 1995 Female Med Rec #: [id number] Physician: Ezequiel MARTINEZ MD Financial #: [id number] Pt. Type: O Room/Bed: / Admit/Disch: 04/29/20 [...] By: Marielle Pineda RN 04/29/20 10:21 Normal [facility] Monitor Recordon 04-29-2020 Monitor Record [id number]# 1.00CD:127 Normal [facility] Outpatient Surgery Discharge Instructionon 04-29-2020 Outpatient Surgery Discharge Instruction [place] [id number] Patient Discharge Instructions PERSON INFORMATION Name: RAJIV [...] Aiden IZQUIERDO [address], [address] [facility] [place] [address] Business (1) With: Address: When: [facility] [address], [facility] [place] [address] Within 2 weeks Type Location [facility] Follow Up [facility] 05/16/2020 1:00 PM 05/16/2020 1:15 PM Confirmed Pharmacy Information: Thank you for choosing [facility] HERE ARE THE MEDICATION CHANGES [...] Refills: 0. PATIENT EDUCATION INFORMATION Instructions: Normal [facility] Patient Education - Texton 1 06-29-2019 Patient Education - Text Normal [facility] Priority Order-Mitchell 2019 Priority Order-STAT Comment Invalid Interpretation Code [facility] Comment on above: Result Comment: Rece ived Performed at: [facility] [address] [id number] MD Indira Washington Performed By: #### 2 [id number], SARS-CoV-2, MARY #### [facility] [address] [place] [address] SARS-CoV-2, NAAon 04-23-2020 SARS-CoV-2 (COVID-19) RNA MARY+probe Ql (Resp) Not detected Invalid Interpretation Code Not Detected [facility] Comment on above: Result Comment: This nucleic acid amplification test was developed and its performance characteristics determined by [employer]. Nucleic acid amplification tests include PCR and [...] detected) result in this assay. Performed at: [facility] [address] [facility] [place] [id number] MD Indira Washington Performed By: #### 2 [id number], SARS-CoV-2, MARY #### [facility] [address] [place] [id number] Ambulatory Clinical Summaryo n 04-20-2020 Ambulatory Clinical Summary {[id number]}CD:[id number] Normal [facility] Coding Summary.on 04-20-2020 Coding Summary. CODING DATE: 04/20/2020 FINAL [facility] STATUS: Home (Routine DC) PAYOR: [place] APC DESCRIPTION 5522 Level 2 Imaging without [...] Revised Date Saved: 04/20/2020 07:55 am Normal [facility] Consent for Procedure/Surger yon 04-20-2020 Consent for Procedure/Surgery [id number]#1 .00CD:127 Normal [facility] Gastroenterology Office/Clin ic Noteon 04-20-2020 Gastroenterology Office/Clinic Note Chief Complaint f/u to ER RUQ HPI Staff This is a 24 year old female who presents today for a follow up for an ED visit for RUQ pain. History of Present Illness 24 years old white female with no significant past medical history except for anxiety, referred to me from [facility] to be evaluated for right upper quadrant abdominal pain, she reports right upper quadrant abdominal pain, started 6 weeks ago, sporadic, moderate in nature except for the last time when it was severe for which she went to [facility] ER, she had normal CBC, [...] # 30 cap(s), Refills(s) 2, [id number] 168, cm, 04/20/20 10:06:00 EDT, Height/Length Dosing, 59.5, kg, 04/20/20 10:06:00 EDT, Weight Dosing EGD Endoscopy (Hospital Procedure) 2. Anxiety (F41.9: Anxiety disorder, unspecified) 3. Nausea (R11.0: Nausea) Ordered: omeprazole, 40 mg = 1 cap(s), Oral, Daily, # 30 cap(s), Refills(s) 2, [id number], 168, cm, 04/20/20 10:06:00 EDT, Height/Length Dosing, 59.5, kg, 04/20/20 10:06:00 EDT, Weight Dosing EGD Endoscopy (Hospital Procedure) Follow-up With When Contact Information Ezequiel MARTINEZ MD Within 2 weeks [facility] [address] [place] [address]- Additional Instructions: Patient Education Abdominal [...] Family History Family history is negative Normal [facility] Comment on above: Result Comment: Elec tronically [...] directed by your caregiver. ? Only take zexk-vxx-xsehtcs or prescription medicines for pain, discomfort, or [...] Document Reviewed: 01/26/2009 ExitCare? Patient Information ?2013 [employer] [facility]. Family Medicine Abdominal Pain Abdominal [...] directed by your caregiver. ? Only take gles-eph-mfmtgib or prescription medicines for pain, discomfort, or [...] Document Reviewed: 01/26/2009 ExitCare? Patient Information ?2013 [employer]. Normal [facility] Physician Orderon 04-20-2020 Physician Order [id number]# 1.00CD:127 Normal [facility] Physician Order [id number]#1. 00CD:127 Normal [facility] Auto Diffon 04-19-2020 Basophils/100 WBC (Bld) 0.6 % Normal 0.0-2.0 [facility] Comment on above: Order Comment: Order Added by Discern Expert. Performed By: #### 2 [id number] #### [facility] [address] [place] [address] Basophils/Leukocytes Auto (Bld) [Pure # fraction] 0.0 E9/L Normal 0.0-0.2 [facility] Comment on above: Order Comment: Order Added by Discern Expert. Performed By: #### 2 [id number] #### [facility] [address] [place] [address] Eosinophils/100 WBC (Bld) 0.2 % Normal 0.0-8.0 [facility] Comment on above: Order Comment: Order Added by Discern Expert. Performed By: #### 2 [id number] #### [facility] [address] [place] [address] Eosinophils/Leukocyt es Auto (Bld) [Pure # fraction] 0.0 E9/L Normal 0.0-0.5 [facility] Comment on above: Order Comment: Order Added by Discern Expert. Performed By: #### 2 [id number] #### [facility] [address] [place] [address] Lymphocytes/100 WBC (Bld) 34.4 % Normal 14.0-50.0 [facility] Comment on above: Order Comment: Order Added by Discern Expert. Performed By: #### 2 [id number] #### [facility] [address] [place] [address]70 Lymphocytes/Leukocyt es Auto (Bld) [Pure # fraction] 2.5 E9/L Normal 1.0-4.0 [facility] Comment on above: Order Comment: Order Added by Discern Expert. Performed By: #### 2 [id number] #### [facility] [address] [place] [address] Monocytes/100 WBC (Bld) 6.1 % Normal 4.0-14.0 [facility] Comment on above: Order Comment: Order Added by Discern Expert. Performed By: #### 2 [id number] #### [facility] [address] [place] [address] Monocytes/Leukocytes Auto (Bld) [Pure # fraction] 0.4 E9/L Normal 0.2-1.0 [facility] Comment on above: Order Comment: Order Added by Discern Expert. Performed By: #### 2 [id number] #### [facility] [address] [place] [address] Neutrophils/100 WBC (Bld) 58.7 % Normal 36.0-75.0 [facility] Comment on above: Order Comment: Order Added by Discern Expert. Performed By: #### 2 [id number] #### [facility] [address] [place] [address] Neutrophils/Leukocyt es Auto (Bld) [Pure # fraction] 4.2 E9/L Normal 2.0-7.5 [facility] Comment on above: Order Comment: Order Added by Discern Expert. Performed By: #### 2 [id number] #### [facility] [address] [place] [address] BMPon 04-19-2020 Creatinine [Mass/Vol] 0.8 mg/dL Normal 0.5-1.3 [facility] Comment on above: Performed By: #### 2 [id number] #### [facility] [address] [place] [address] Urea nitrogen [Mass/Vol] 12 mg/dL Normal 5-21 [facility] Comment on above: Performed By: #### 2 [id number] #### [facility] [address] [place] [address] Urea nitrogen/Creatinine [Mass ratio] 15 No Units Normal -20 [facility] Comment on above: Performed By: #### 2 [id number] #### [facility] [address] [place] [address] Anion gap [Moles/Vol] 11 mmol/L Normal 6-16 [facility] Comment on above: Performed By: #### 2 [id number] #### [facility] [address] [place] [address] Calcium [Mass/Vol] 9.7 mg/dL Normal 8.9-11.1 [facility] Comment on above: Performed By: #### 2 [id number] #### [facility] [address] [place] [address] Chloride [Moles/Vol] 103 mmol/L Normal 101-111 [facility] Comment on above: Performed By: #### 2 [id number] #### [facility] [address] [place] [address] CO2 [Moles/Vol] 27 mmol/L Normal 21-31 [facility] Comment on above: Performed By: #### 2 [id number] #### [facility] [address] [place] [address] Glucose [Mass/Vol] 97 mg/dL Normal 55-199 [facility] Comment on above: Result Comment: If t his glucose result represents a fasting glucose, interpretation should refer to the following reference range: 55-99 mg/dL Performed By: #### 2 [id number] #### [facility] [address] [place] [address] Potassium [Moles/Vol] 3.5 mmol/L Normal 3.5-5.3 [facility] Comment on above: Performed By: #### 2 [id number] #### [facility] [address] [place] [address] Sodium [Moles/Vol] 137 mmol/L Normal 135-145 [facility] Comment on above: Performed By: #### 2 [id number] #### [facility] [address] [place] [address] CBC w/ Auto Diffon Erythrocyte distribution width (RBC) [Ratio] 13.3 % Normal 10.9-14.2 [facility] Comment on above: Performed By: #### 2 [id number] #### [facility] [address] [place] [address] Hematocrit (Bld) [Volume fraction] 37.6 % Normal 34.0-46.0 [facility] Comment on above: Performed By: #### 2 [id number] #### [facility] [address] [place] [address] Hemoglobin (Bld) [Mass/Vol] 13.4 g/dL Normal 12.0-16.0 [facility] Comment on above: Performed By: #### 2 [id number] #### [facility] [address] [place] [address] MCH (RBC) [Entitic mass] 31.9 pg Normal 27.0-34.0 [facility] Comment on above: Performed By: #### 2 [id number] #### [facility] [address] [place] [address] MCHC (RBC) [Mass/Vol] 35.7 g/dL Normal 31.4-36.0 [facility] Comment on above: Performed By: #### 2 [id number] #### [facility] [address] [place] [address] MCV (RBC) [Entitic vol] 89.2 fL Normal 80.0-100.0 [facility] Comment on above: Performed By: #### 2 [id number] #### [facility] [address] [place] [address] Platelet mean volume (Bld) [Entitic vol] 9.4 fL Normal 6.4-10.8 [facility] Comment on above: Performed By: #### 2 [id number] #### [facility] [address] [place] [address] Platelets (Bld) [#/Vol] 219.0 E9/L Normal 150.0-500.0 [facility] Comment on above: Performed By: #### 2 [id number] #### [facility] [address] [place] [address] RBC (Bld) [#/Vol] 4.2 E12/L Low 4.3-5.9 [facility] Comment on above: Performed By: #### 2 [id number] #### [facility] [address] [place] [address]69 WBC corrected for nucl RBC Auto (Bld) [#/Vol] 7.2 E9/L Normal 4.0-11.0 [facility] Comment on above: Performed By: #### 2 [id number] #### [facility] [address] [place] [address] Consent for Treatmenton 03-25 Consent for Treatment [id number] .00CD:127 Normal [facility] Discharge Instructionson Discharge Instructions [id number]# 1.00CD:127 Normal [facility] ED Clinical Summaryon 2019 ED Clinical Summary [address] [address] ED Clinical Summary Person Information Name: RAJIV TOVAR/JonathanKaye Age: 24 Years : 1995 Sex: Female Language: Prydeinig PCP: Alon Weber MD Marital Status: Single [...] 08:58:55 04/19/2020 08:58:55 04/19/2020 08:58:55 ADDRESS: [address] [facility] [id number] PHYS DOC NOTES: Addendum by Laureano Phillip DO on April 19, 2020 08:26:02 EDT MEDICAL INFORMATION: Prescriptions Given: New Medications [id number], [address], [place] [id number], [phone] dicyclomine (dicyclomine 20 mg Tab) 1 Tablets By Mouth 3 times a day for 7 Days. Refills: 0. ondansetron (Zofran ODT 4 mg Tab) 1 Tablets By Mouth 3 times a day. Refills: 0. PATIENT EDUCATION INFORMATION: Instructions: Cholelithiasis Follow up: With: Address: When: [facility], [address] [place] [address] Business (1) In 3 days 04/22/2020 DIAGNOSIS: 1:Abdominal pain; Biliary colic; Gall stone; Nausea Normal [facility] ED Note-Nursingon 04-19-2020 ED Note-Nursing Report received from Zacarias Cuevas RN. Patient resting on cart. Updated on plan of care. Denies any needs at this time. Call light in reach. Normal [facility] ED Note-Physicianon 04-19-20 ED Note-Physician Basic Information [...] Diagnosis: Abdominal pain, cholelithiasis, biliary colic Normal [facility] Comment on above: Result Comment: Elec tronically [...] medicine. HOME CARE INSTRUCTIONS ? Only take uhff-hqy-uskfxlx or prescription medicines for pain, discomfort, or [...] Document Reviewed: 12/02/2013 ExitCare? Patient Information ?2014 [employer]. This information is not intended to replace advice given to you by your health care provider. Make sure you discuss any questions you have with your health care provider. Normal [facility] ED Patient Summaryon 020 ED Patient Summary [address] [address] Patient Discharge Instructions Person Information Name: RAJIV TOVAR Age: 24 Years Arrival Date: 04/19/2020 06:10:12 Discharge Diagnosis: 1:Abdominal pain; Biliary colic; Gall stone; Nausea Primary Care Physician: Alon Weber MD Provider Information Primary Provider: Susana Belcher M.D. Advanced Various Exceptionalities Teacher:None The exam and treatment you received in the Emergency Department were for an urgent problem and are not intended as complete care. It is important that you follow up with a doctor, nurse practitioner, or physician?s events administrative assistant for ongoing care. If your symptoms become worse or you do not improve as expected and you are unable to reach your usual health care provider, you should return to the Emergency Department. We are available 24 hours a day. RAJIV TOVAR has been given the following list of patient education materials, prescriptions and follow-up instructions: Follow-up Instructions: With: Address: When: [facility], [address] [address] Business (1) In 3 days 04/22/2020 In the event that this physician does not participate in your insurance network, please consult with your insurance company to find a nearby participating provider. Patient Education Materials: Cholelithiasis A MESSAGE TO ALL PATIENTS REGARDING OPIOIDS PRESCRIPTION OPIOIDS: WHAT YOU NEED TO KNOW Prescription opioids can be used to help relieve fzulqfcr-vr-pbqjfg pain and are often prescribed following a [...] be struggling with addiction, tell your health physician assistant primary care and ask for guidance or call [facility] National Helpline at 2-340-1 (more content not included)... Normal [facility] Hep Func Panelon 04-19-2020 Bilirubin.indirect [Mass or moles/Vol] UTC Abnormal 0.1-0.9 [facility] Comment on above: Result Comment: Resu lt verified by Discern Rule. Performed result UTC (Unable to Calculate) was sent as an Alpha code due the inability to calculate a valid numeric value. Performed By: #### 2 [id number] #### [facility] [address] [place] [address] Albumin [Mass/Vol] 4.3 g/dL Normal 3.3-5.0 [facility] Comment on above: Performed By: #### 2 [id number] #### [facility] [address] [place] [address] Albumin/Globulin (S) [Mass conc ratio] 1.5 Normal 1.1-2.2 [facility] Comment on above: Performed By: #### 2 [id number] #### [facility] [address] [place] [address] ALP [Catalytic activity/Vol] 77 Int._Unit/L Normal 21-98 [facility] Comment on above: Performed By: #### 2 [id number] #### [facility] [address] [place] [address] ALT No additional P-5'-P [Catalytic activity/Vol] 59 Int._Unit/L High 6-46 [facility] Comment on above: Performed By: #### 2 [id number] #### [facility] [address] [place] [address] AST [Catalytic activity/Vol] 36 Int._Unit/L Normal 5-43 [facility] Comment on above: Performed By: #### 2 [id number] #### [facility] [address] [place] [address] Bilirubin [Mass/Vol] 0.4 mg/dL Normal 0.0-1.1 [facility] Comment on above: Performed By: #### 2 [id number] #### [facility] [address] [place] [address] Bilirubin.direct [Mass/Vol] mg/dL Normal 0.1-0.4 [facility] Comment on above: Performed By: #### 2 [id number] #### [facility] [address] [place] [address] Globulin (S) [Mass/Vol] 2.8 g/dL Normal 1.4-4.0 [facility] Comment on above: Performed By: #### 2 [id number] #### [facility] [address] [place] [address] Protein [Mass/Vol] 7.1 g/dL Normal 6.0-7.8 [facility] Comment on above: Performed By: #### 2 [id number] #### [facility] [address] [place] [address] Lipase Levelon 04-19-2020 Lipase [Catalytic activity/Vol] 43 U/L Normal 13-58 [facility] Comment on above: Performed By: #### 2 [id number] #### [facility] [address] [place] [address] PT & PTTon 04-19-2020 aPTT Coag (PPP) [Time] 30.2 second(s) Normal 25.1-36.5 [facility] Comment on above: Result Comment: Hepa rin therapeutic range (represented by Anti-Factor Xa activity of 0.2 - 0.4 U/mL) corresponds to PTT of 56.6 - 109.0 sec. Performed By: #### 2 [id number] #### [facility] [address] [place] [address] INR Coag (PPP) [Relative time] 1.0 {INR} Invalid Interpretation Code [facility] Comment on above: Result Comment: INR results are specifically intended to assess patients stabilized on long-term Anticoagulation therapy suggested INR?s ?Less Intensive Anticoagulation? 2.0 ? 3.0 Conventional Range 3.0 ? 4.5 Performed By: #### 2 [id number] #### [facility] [address] [place] [address] PT Coag (PPP) [Time] 11.8 second(s) Normal 10.2-12.9 [facility] Comment on above: Performed By: #### 2 [id number] #### [facility] [address] [place] [address] Prescriptions/Work Noteson 1 Prescriptions/Work Notes [id number]# 1.00CD:127 Normal [facility] U BetaHcg Qualon 04-19-2020 HCG.beta subunit (U) [Moles/Vol] Negative Normal [facility] Comment on above: Performed By: #### 2 [id number] #### [facility] [address] [place] [address] UA With Cult Reflexon 2019 Bacteria LM Ql (Urine sed) TRACE Normal Trace [facility] Comment on above: Performed By: #### 2 [id number] #### [facility] [address] [place] [address] Bilirubin Ql (U) Negative Normal Negative [facility] Comment on above: Performed By: #### 2 [id number] #### [facility] [address] [place] [address] Clarity (U) CLEAR Normal Clear [facility] Comment on above: Performed By: #### 2 [id number] #### [facility] [address] [place] [address] Color (U) YELLOW Normal Yellow [facility] Comment on above: Performed By: #### 2 [id number] #### [facility] [address] [place] [address] Crystals LM Ql (Urine sed) Present Normal [facility] Comment on above: Performed By: #### 2 [id number] #### [facility] [address] [place] [address] Epithelial cells.squamous LM.HPF (Urine sed) [#/Area] 3-4 Normal 0-2 [facility] Comment on above: Performed By: #### 2 [id number] #### [facility] [address] [place] [address] Glucose Test strip (U) [Mass/Vol] Negative Normal Negative [facility] Comment on above: Performed By: #### 2 [id number] #### [facility] [address] [place] [address] Hemoglobin Ql (U) TRACE Abnormal Negative [facility] Comment on above: Performed By: #### 2 [id number] #### [facility] [address] [place] [address] Ketones (U) [Mass/Vol] Negative Normal Negative [facility] Comment on above: Performed By: #### 2 [id number] #### [facility] [address] [place] [address] [place].plasma/Lithi um.RBC (Bld) [Mass ratio] 0-3 Normal 0-3 [facility] Comment on above: Performed By: #### 2 [id number] #### [facility] [address] [place] [address] Nitrite Ql (U) Negative Normal Negative [facility] Comment on above: Performed By: #### 2 [id number] #### [facility] [address] [place] [address] pH (U) 6.5 [pH] Invalid Interpretation Code 5.0-9.0 [facility] Comment on above: Performed By: #### 2 [id number] #### [facility] [address] [place] [address] Protein (U) [Mass/Vol] Negative Normal Negative [facility] Comment on above: Performed By: #### 2 [id number] #### [facility] [address] [place] [address] Specific gravity (U) [Rel density] 1.025 Invalid Interpretation Code 1.005-1.030 [facility] Comment on above: Performed By: #### 2 [id number] #### [facility] [address] [place] [address] UA Spec Desc Clean Catch Normal [facility] Comment on above: Performed By: #### 2 [id number] #### [facility] [address] [place] [address] Urobilinogen Qn (U) 0.2 {Arnie'U}/dL Normal 0.0-1.0 [facility] Comment on above: Performed By: #### 2 [id number] #### [facility] [address] [place] [address] WBC Auto Ql (U) Negative Normal Negative [facility] Comment on above: Performed By: #### 2 [id number] #### [facility] [address] [place] [address] WBC LM.HPF (Urine sed) [#/Area] 0-5 Normal 0-5 [facility] Comment on above: Performed By: #### 2 [id number] #### [facility] [address] [place] [address] US Abdomen, Limitedon 2019 US Abdomen, Limited [...] M.D. Transcribed by: OLGA Technologist: RENETTA Kaplan [facility] eGFRon 04-19-2020 GFR/1.73 sq M.predicted among blacks MDRD (S/P/Bld) [Vol rate/Area] mL/min/{1.73_m2} Normal >=59 [facility] Comment on above: Order Comment: Order added by Discern Expert. Result Comment: eGFR is race adjusted. AA=. Performed By: #### 2 [id number] #### [facility] [address] [place] [address] GFR/1.73 sq M.predicted among non-blacks MDRD (S/P/Bld) [Vol rate/Area] mL/min/{1.73_m2} Normal >=59 [facility] Comment on above: Order Comment: Order added by Discern Expert. Result Comment: Diesel Fitter Mechanic bib kidney disease could be indicated at eGFR's of less than 60 mL/min/1.73m2. Kidney failure is indicated at less than 15 mL/min/1.73m2. Performed By: #### 2 [id number] #### [facility] [address] [place] [address] Vital Signs Date Time Vital Sign Value Performing Clinician William colmenares 10-06-2024 14:25-0400 Body height 167.6 cm Jamar Autsin MD Work Phone: [facility] 10-06-2024 14:25-0400 Body mass index (BMI) [Ratio] 28.08 kg/m2 Jamar Austin MD Work Phone: [facility] 10-06-2024 14:25-0400 Body weight 78.93 kg Jamar Austin MD Work Phone: [facility] 10-06-2024 14:25-0400 Diastolic blood pressure 74 mm[Hg] Jamar Austin MD Work Phone: [facility] 10-06-2024 14:25-0400 Heart rate 88 /min Jamar Austin MD Work Phone: [facility] 10-06-2024 14:25-0400 Respiratory rate 18 /min Jamar Austin MD Work Phone: [facility] 10-06-2024 14:25-0400 SaO2% (BldA) [Mass fraction] 98 % Jamar Austin MD Work Phone: [facility] 10-06-2024 14:25-0400 Systolic blood pressure 100 mm[Hg] Jamar Austin MD Work Phone: [facility] 03-03-2024 10:52-0400 Body mass index (BMI) [Ratio] 24.37 kg/m2 Flynn Dragan DO Work Phone: [facility] 03-03-2024 10:52-0400 Body weight 68.49 kg Flynn Dragan DO Work Phone: [facility] 03-03-2024 10:52-0400 Diastolic blood pressure 70 mm[Hg] Flynn Dragan DO Work Phone: [facility] 03-03-2024 10:52-0400 Systolic blood pressure 112 mm[Hg] Flynn Dragan DO Work Phone: [facility] Healthcare Encounters Encounter Date Encounter Type Care Provider Facility Start: 10-06-2024 End: 10-06-2024 Office outpatient new 45 minutes Jamar Austin MD Work Phone: [facility] Comment on above: Hair loss (Primary D x); Weight gain; Encounter for dietary consultation; Vitamin D deficiency Start: 10-06-2024 End: 10-06-2024 ambulatory JAMAR AUSTIN Not Available Start: 10-06-2024 End: 10-06-2024 Bamboo flowsmena Austin MD Work Phone: [facility] Start: 10-06-2024 End: 10-06-2024 Bamboo flowsmena Austin MD Work Phone: [facility] Start: 09-17-2024 End: 09-17-2024 Office outpatient visit 15 minutes My Singh MD Work Phone: [facility] Comment on above: Herpesviral vesicula r dermatitis (Primary Dx) Start: 09-17-2024 End: 09-17-2024 ambulatory MY SINGH Not Available Start: 09-17-2024 End: 09-17-2024 Bamboo flowsmena Singh MD Work Phone: [facility] Start: 09-17-2024 End: 09-17-2024 Bambowesley flowsmena Singh MD Work Phone: [facility] Start: 03-09-2024 End: 03-09-2024 ambulatory Harley Maldonado MD Facility:[facility] Start: 03-03-2024 End: 03-03-2024 Bamboo flowsheet Flynn Dragan DO Work Phone: [facility] Start: 03-03-2024 End: 03-03-2024 Bamboo flowsheet Flynn Dragan DO Work Phone: [facility] Start: 03-03-2024 End: 03-03-2024 Clinisync Result Encounter Flynn Dragan DO Work Phone: [facility] External Department Unsolicited Start: 03-03-2024 End: 03-03-2024 Office outpatient visit 15 minutes Flynn Dragan DO Work Phone: [facility] Comment on above: Hormone imbalance; Hot flashes; Rolle; Weight gain; PCOS (polycystic ovarian syndrome) Start: 03-03-2024 End: 03-03-2024 ambulatory FLYNN ARCHIBALD Not Available Start: 02-17-2024 End: 02-17-2024 ambulatory Harley Maldonado MD Facility:[facility] Start: 01-13-2024 End: 01-13-2024 ambulatory Harley Maldonado MD Facility:[facility] Start: 12-23-2023 End: 12-23-2023 ambulatory Harley Maldonado MD Facility:[facility] Start: 11-25-2023 End: 11-25-2023 ambulatory Harley Maldonado MD Facility:[facility] Start: 10-21-2023 End: 10-21-2023 ambulatory LEWIS SEWELL [...] ty:[facility] Start: 08-01-2021 End: 08-01-[address] KAASH MARTINEZ Facility:[facility] Start: 07-18-2021 End: 07-19-[address] AKASH MARTINEZ Facility:[facility] Start: 07-04-2021 End: 07-04-[address] AKASH MARTINEZ Facility:[facility] Procedures Date Procedure Procedure Detail Performing Clinician Start: 03-03-2024 ALL CBC WITH AUTO DIFF Flynn Archibald DO Work Phone: Plan of Treatment Date Care Activity Detail Author Start: 09-15-2025 End: 09-15-2025 Patient encounter procedure 09/15/2025 2:20 PM EDT Office Visit [facility] [address] [place] [id number] My Singh MD [address] [place] [address] [facility] Start: 10-06-2024 End: 10-06-2024 Patient encounter procedure 10/06/2024 2:20 PM EDT Office Visit [facility] [address] [place] [address] Jamar Austin MD [address] [place], [place] [id number] Arrived [facility] Comment on above: Arrived Start: 10-06-2024 End: 10-06-2025 25-hydroxyvitamin D3 [Mass/volume] in Serum or Plasma Vitamin D 25 hydroxy Lab Routine Vitamin D deficiency Expected: 10/06/2024 (Approximate), Expires: 10/06/2025 [facility] Comment on above: Expected: 10/06/2024 (Approximate), Expi res: 10/06/2025 Start: 10-06-2024 End: 10-06-2025 Basic metabolic 1998 panel - Serum or Plasma Basic metabolic panel Lab Routine Encounter for dietary consultation Expected: 10/06/2024 (Approximate), Expires: 10/06/2025 [facility] Comment on above: Expected: 10/06/2024 (Approximate), Expi res: 10/06/2025 Start: 10-06-2024 End: 10-06-2025 Cortisol AM Cortisol AM Lab Routine Weight gain Expected: 10/06/2024 (Approximate), Expires: 10/06/2025 [facility] Comment on above: Expected: 10/06/2024 (Approximate), Expi res: 10/06/2025 Start: 10-06-2024 End: 10-06-2025 Thyrotropin [Units/volume] in Serum or Plasma TSH Lab Routine Hair loss Weight gain Expected: 10/06/2024 (Approximate), Expires: 10/06/2025 [facility] Comment on above: Expected: 10/06/2024 (Approximate), Expi res: 10/06/2025 Start: 10-06-2024 End: 10-06-2025 Thyroxine (T4) free [Mass/volume] in Serum or Plasma T4, free Lab Routine Hair loss Weight gain Expected: 10/06/2024 (Approximate), Expires: 10/06/2025 [facility] Comment on above: Expected: 10/06/2024 (Approximate), Expi res: 10/06/2025 Start: 10-06-2024 End: 10-06-2025 Triiodothyronine (T3) Free [Mass/volume] in Serum or Plasma T3, free Lab Routine Hair loss Weight gain Expected: 10/06/2024 (Approximate), Expires: 10/06/2025 [facility] [facility] Work Phone: Comment on above: Expected: 10/06/2024 (Approximate), Expi res: 10/06/2025 Start: 09-17-2024 End: 09-17-2024 Patient encounter procedure 09/17/2024 2:20 PM EDT Office Visit [facility] [address] [place] [address] My Singh MD [address] [place], [place] [id number] Arrived [facility] Comment on above: Arrived Start: 08-10-2024 End: 08-10-2024 Patient encounter procedure 08/10/2024 1:00 PM EST Office Visit [facility] [address] [place] [address] My Singh MD [address] [place], [place] [id number] [facility] Start: 03-18-2024 End: 03-18-2024 Patient encounter procedure 03/18/2024 8:00 AM EDT Office Visit [facility] [address] [facility] [place] [address] Flynn Archibald, DO [address] [place] [address] [facility] Start: 03-03-2024 End: 03-03-2025 DHEA DHEA Lab Routine PCOS (polycystic ovarian syndrome) Expected: 03/03/2024 (Approximate), Expires: 03/03/2025 [facility] Comment on above: Expected: 03/03/2024 (Approximate), Expi res: 03/03/2025 Start: 03-03-2024 End: 03-03-2024 Patient encounter procedure 03/03/2024 10:40 AM EDT Office Visit [facility] [address] [facility] [place] [address] Flynn Archibald, DO [address] [facility] [place] [address] Arrived [facility] Comment on above: Arrived Start: 08-22-2023 End: 08-22-2023 Patient encounter procedure 08/22/2023 11:50 AM EST Office Visit [facility] [address] [facility] [place] [phone] Flynn Archibald, DO [address] [place] [address] [address] [facility] OB CBC W Auto Different ial panel - Blood CBC and differential Lab Routine PCOS (polycystic ovarian syndrome) Ordered: 03/03/2024 [facility] Comment on above: Ordered: 03/03/2024 DHEA-sulfate DHEA-sulfate Lab Routine PCOS (polycystic ovarian syndrome) Ordered: 03/03/2024 [facility] Comment on above: Ordered: 03/03/2024 Estradiol Estradiol Lab Ro utine Hormone imbalance Hot flashes Weight gain PCOS (polycystic ovarian syndrome) Ordered: 03/03/2024 [facility] Comment on above: Ordered: 03/03/2024 Follicle stimulating hormone Follicle stimulating hormone Lab Routine PCOS (polycystic ovarian syndrome) Ordered: 03/03/2024 [facility] Comment on above: Ordered: 03/03/2024 hCG, quantitative, hCG, quantitative, Lab Routine PCOS (polycystic ovarian syndrome) Ordered: 03/03/2024 [facility] Work Phone: Comment on above: Ordered: 03/03/2024 Hemoglobin A1c/Hemoglobin.total in Blood Hemoglobin A1c Lab Routine Hormone imbalance Hot flashes Weight gain PCOS (polycystic ovarian syndrome) Ordered: 03/03/2024 [facility] Comment on above: Ordered: 03/03/2024 Luteinizing hormone Luteinizing hormone Lab Routine PCOS (polycystic ovarian syndrome) Ordered: 03/03/2024 [facility] Comment on above: Ordered: 03/03/2024 Progesterone Progesterone Lab Routine Hormone imbalance Hot flashes Weight gain PCOS (polycystic ovarian syndrome) Ordered: 03/03/2024 [facility] Comment on above: Ordered: 03/03/2024 Thyrotropin [Units/volume] in Serum or Plasma TSH Lab Routine PCOS (polycystic ovarian syndrome) Ordered: 03/03/2024 [facility] Comment on above: Ordered: 03/03/2024 Thyroxine (T4) free [Mass/volume] in Serum or Plasma T4, free Lab Routine PCOS (polycystic ovarian syndrome) Ordered: 03/03/2024 [facility] Comment on above: Ordered: 03/03/2024 Payers Date Payer Category Payer [facility] er [id number] 2024 Unknown [id number] 2017 Unknown [id number] 1993 Unknown [id number] 2.16.840.1.510616.3.579.2 .593 1993 Unknown [id number] 2.16.840.1.926240.3.579.2 .593 1993 Unknown [id number] 2.16.840.1.713329.3.579.2 .593 1993 Unknown [id number] 2.16.840.1.732714.3.579.2 .593 1993 Unknown [id number] 2.16.840.1.770685.3.579.2 .593 1993 Unknown [id number] 2.16.840.1.228076.3.579.2 .196 1993 Unknown [id number] 2.16.840.1.125949.3.579.2 .196 1993 Unknown [id number] 2.16.840.1.909281.3.579.2 .196 1993 Unknown [id number] 2.16.840.1.940359.3.579.2 .196 1993 Unknown [id number] 2.16.840.1.372626.3.579.2 .196 1993 Unknown [id number] 2.16.840.1.023105.3.579.2 .1259 1993 Unknown [id number] 2.16.840.1.739969.3.579.2 .1259 1993 Unknown [id number] 2.16.840.1.725565.3.579.2 .1259 1993 Unknown [id number] 2.16.840.1.394346.3.579.2 .1259 1959 Unknown [id number] Social History Date Type [facility]ail [facility] Start: 1995 Sex Assigned At Not on file N [facility] Start: 08-08-2023 End: 09-17-2024 Gender identity Not on file [facility] Start: 08-08-2023 [facility] tobacco [facility] Start: 08-08-2023 Tobacco use and exposure Smokeless t obacco non-user [facility] Start: 08-08-2023 End: 09-17-2024 History of Social function [facility] Start: 10-21-2023 End: 09-17-2024 Alcoholic beverage intake Lifetime non-drinker (finding) [facility] Clinical Notes 05-02-2020 to 10-06-2024 [...] will do 1 mg DST rule out Vikki syndrome. Encounter for dietary consultation - Basic metabolic panel; Future Vitamin D deficiency - Vitamin D 25 hydroxy; Future I will check the level and start supplements if needed. Follow up in about 1 year (around 10/06/2025). documented in this encounter [facility] 09-17-2024 History of Present illness Narrative Images [...] year follow up documented in this encounter [facility] 03-03-2024 History of Present illness Narrative Reason [...] nursing note reviewed. Exam conducted with a athletic coach present. Vitals: Estimated body mass index is [...] Flynn Dragan, DO documented in this encounter [facility] 08-08-2023 History of Present illness Narrative Follow [...] year (follow up) documented in this encounter [facility] 07-18-2021 Note CONSULTATION CHIEF COMPLAINT: Mid-back [...] to proceed. CC: Dr. Alon Weber [facility] 07-18-2021 Note CONSULTATION CHIEF COMPLAINT: Mid-back [...] like to proceed. CC: Dr. Alon Weber [facility] Signed and Approved by: DR AKASH MARTINEZ . 07/25/2021 08:02:00 [facility] 02-28-2021 Note Infectious Disease COVID-19: How to Protect Yourself and Others Know how it spreads ? There is currently no vaccine to prevent coronavirus disease 2019 (COVID-19). ? The best way to prevent illness is to avoid being exposed to this virus. ? The virus is thought to spread mainly from vfhtzf-wo-fzimog. ? Between people who are in close [...] are not readily available, use a hand digital marketing associate that contains at least 60% alcohol. Cover [...] at higher risk of getting very sick.www.cdc.gov/coronavirus/201 -ncov/qztj-xzmpz-ikizcerlziq/pe vtdv-qd-cahjob-risk.html Cover your mouth and nose with a [...] available, clean your hands with a hand digital marketing associate that contains at least 60% alcohol. Clean and disinfect ? Clean AND disinfect frequently touched surfaces daily. This includes tables, doorknobs, light switches, countertops, handles, desks, phones, keyboards, toilets, faucets, and sinks. www.cdc.gov/coronavirus/nco v/zfzwqlv-dyouybl-ywta/disinfect ard-mnii-jxkt.html ? If surfaces are dirty, clean them: [...] Reviewed: 12/31/2019 Elsevier Patient Education ? 2019 [employer] COVID-19 Frequently Asked Questions COVID-19 (coronavirus disease) is an infection that is caused by a large family of viruses. Some viruses cause illness in people and others cause illness in animals like camels, cats, and bats. In some cases, the viruses that cause illness in animals can spread to humans. Where did the coronavirus come from? In May 2019, Harper told the World Health Organization (WHO) of several cases of lung disease (human respiratory illness). These cases were linked to an open seafood and livestock market in the city of [place]. The link to the seafood and livestock [...] virus naming World Health Organization (WHO): www.who.int/emergencies/diseases /akggh-zetqcscutnm-9133/technica l-guidance/gqujvv-qdy-hacdrykjfv s (more content not included)... [facility] 05-05-2020 Note [id number]:127 [facility] 05-02-2020 Note [id number]:127 [facility] Evaluation note Diagnosis Herpesviral vesicular dermatitis- Primary [...] section and content) DATE CREATED AUTHOR 03/05/2021 [facility] DATE CREATED AUTHOR AUTHOR'S ORGANIZ ATION 04/10/2021 [facility] DATE CREATED AUTHOR AUTHOR'S ORGANIZ ATION 07/02/2022 [facility] DATE CREATED AUTHOR AUTHOR'S ORGANIZ ATION 03/15/2024 [facility] DATE CREATED AUTHOR AUTHOR'S ORGANIZ ATION 10/08/2024 [facility] EPIC Reason for Visit (unrecogniz ed section and content) Reason Comments Follow-up Reason Comments hormone imbalance Pt present today to check hormone levels. Reason Comments Thyroid Problem NEW MAR 17 LABS NO REFERRAL Care Teams (unrecognized sec tion and content) Professor Of Psychology Relationship Specialty Start Date End Date Alon Weber MD [address] [place] [address] PCP - General Family Medicine 08/22/23 Professor Of Psychology Relationship Specialty Start Date End Date Alon Weber MD [address] [place] [address] PCP - General Family Medicine 08/22/23 Professor Of Psychology Relationship Specialty Start Date End Date Alon Weber MD [address] [place] [address] PCP - General Family Medicine 08/22/23 Professor Of Psychology Relationship Specialty Start Date End Date Alon Weber MD [address] [place] [address] PCP - General Family Medicine 08/22/23 Professor Of Psychology Relationship Specialty Start Date End Date Alon Weber MD [address] [place] [address] PCP - [facility] 08/22/23 Professor Of Psychology Relationship Specialty Start Date End Date Alon Weber MD [address] [place] [address] PCP - [facility] 08/22/23 Professor Of Psychology Relationship Specialty Start Date End Date Alon Weber MD [address] [place] [address] PCP - [facility] 08/22/23 FOR RECORDS PERTAINING TO PATIENTS WHO [...] BE BASED ON THE PRIMARY CLINICAL RECORDS. [facility] [employer] [facility]. provides no warranty or guarantee of the accuracy or completeness of information in this document.
--- NOTE | 2025-04-01 13:40 | PM.CN ---
Consult Note: HPI Data of Consult Patient: known to practice within the last 3 years Consult date: 04/01/25 Requesting Physician: Estelita Teran NP Primary Care Provider: Sixto Gomez MD Consult Narrative Reason for consult: low back pain Narrative: 29yof who presents for assessment. continues to note significant axial pain worsened with standing and ambulation. lumbar mri reviewed, which did not show any disc herniations. continues to engage in a series of provider directed home exercises for >6 weeks, without any significant benefit. uses OTC pain meds and NSAIDs as necessary, but does not like taking medications. on 03/09/24 underwent bilateral L4-5 L5-S1 facet medial branch RFA with >70% improvement in low back pain and functional ability greater than 6 months. Pt noted worsening low back pain around january 2025. pt interested in repeating lumbar RFAs. Pain today 6/10, increasing to 10/10 with twisting, standing, walking, lifting, stairs, activity, sleep, weather changes, ADLs. Notes mild improvement with sitting, lying down, hot showers. cc:: CC: Estelita Teran NP Review of Systems ROS Musculoskeletal Reports: back pain; Denies: extremity pain or joint pain [facility] Medical History (Updated 04/30/24 @ 13:44 by Estelita Teran NP) Pain of joint of left ankle and foot ?M25.572 - Pain in left ankle and joints of left foot (ICD-10) Primary osteoarthritis, left ankle and foot ?M19.072 - Primary osteoarthritis, left ankle and foot (ICD-10) Painful orthopaedic hardware ?T84.84XA - Pain due to internal orthopedic prosthetic devices, implants and grafts, initial encounter (ICD-10) Insomnia ?G47.00 - Insomnia, unspecified (ICD-10) PTSD (post-traumatic stress disorder) ?F43.10 - Post-traumatic stress disorder, unspecified (ICD-10) Panic attacks ?F41.0 - Panic disorder [episodic paroxysmal anxiety] (ICD-10) Depression ?F32.A - Depression, unspecified (ICD-10) Anxiety ?F41.9 - Anxiety disorder, unspecified (ICD-10) COVID-19 ?U07.1 - COVID-19 (ICD-10) Migraine ?G43.909 - Migraine, unspecified, not intractable, without status migrainosus (ICD-10) Endometriosis ?N80.9 - Endometriosis, unspecified (ICD-10) Pelvic pain ?R10.2 - Pelvic and perineal pain (ICD-10) Heart murmur ?R01.1 - Cardiac murmur, unspecified (ICD-10) Hyperthyroidism ?E05.90 - Thyrotoxicosis, unspecified without thyrotoxic crisis or storm (ICD-10) Postoperative nausea and vomiting ?R11.2 - Nausea with vomiting, unspecified (ICD-10) ?Z98.890 - Other specified postprocedural states (ICD-10) Surgical History S/P epidural steroid injection ?Z92.241 - Personal history of systemic steroid therapy (ICD-10) H/O laparoscopy (10/11/23) ?Z98.890 - Other specified postprocedural states (ICD-10) History of cholecystectomy ?Z90.49 - Acquired absence of other specified parts of digestive tract (ICD-10) History of laparoscopy ?Z98.890 - Other specified postprocedural states (ICD-10) History of section ?Z98.891 - History of uterine scar from previous surgery (ICD-10) History of ankle surgery ?Z98.890 - Other specified postprocedural states (ICD-10) History of ankle surgery ?Z98.890 - Other specified postprocedural states (ICD-10) History of ankle surgery ?Z98.890 - Other specified postprocedural states (ICD-10) Family History Other Family history of breast cancer Family history of hypertension Family history of leukemia Family history of lung cancer Social History Within the past year, how often did you have a drink containing alcohol: monthly or less Smoking status: Never smoker Non-prescribed substance use: denies use 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 Highest level of school completed/degree received: high school graduate Meds Home Medications and Allergies Home Medications ?Medication ?Instructions ?Recorded ?Confirmed ?Type drospirenone 3 mg-ethinyl 1 tab PO DAILY 07/01/23 03/09/24 History estradiol 0.03 mg tablet hydroxyzine pamoate 50 mg capsule 50 mg PO Q6H PRN nausea and 07/01/23 03/09/24 History vomiting venlafaxine 150 mg 150 mg PO DAILY 07/01/23 03/09/24 History capsule,extended release 24 hr ibuprofen 800 mg tablet 800 mg PO Q8H PRN pain 14 days #40 10/11/23 03/09/24 Rx tabs buspirone 15 mg tablet 15 mg PO DAILY 04/01/25 04/01/25 History lamotrigine 100 mg tablet 200 mg PO DAILY 04/01/25 04/01/25 History Allergies Allergy/AdvReac Type Severity Reaction Status Date / Time Penicillins Allergy Hives Verified 03/09/24 08:01 Sulfa (Sulfonamide Allergy Hives Verified 03/09/24 08:01 Antibiotics) hydrocodone AdvReac Intermediate Hives Verified 03/09/24 08:01 oxycodone AdvReac Intermediate Hives Verified 03/09/24 08:01 Exam Constitutional Documenting provider has reviewed patient's vital signs: yes Common normals: no apparent distress, oriented x3, healthy appearing, alert and well nourished General appearance: cooperative HENNC Common normals: normocephalic, hearing grossly normal bilaterally and moist oral mucous membranes Head and scalp: normocephalic Eye Common normals: PERRL Pupil: PERRL Neck & C-Spine Common normals: full ROM General: normal visual inspection Chest Common normals: inspection of chest normal Respiratory Common normals: normal respiratory effort, no retractions and no use of accessory muscles Back & Pelvis Lumbar spine/lower back: ROM limited, pain with ROM, lumbar spinal tenderness Lumbar spinal tenderness location: L4 and L5 and straight leg raise negative bilaterally Other: strength 5/5 in BLE positive facet loading bilaterally sensation intact BLE Neuro Common normals: oriented x3 Sensorium/orientation: alert Psych Common normals: mental status grossly normal, thought process normal, cooperative, affect normal, speech normal and activity/motor behavior normal Speech: normal speech Thought process: normal thought process Results Additional Findings Additional findings: If on a controlled substance or opioids, I have checked an [place] report on this patient and there are no aberrancies noted in the prescribing history.??If on a controlled substance or opioid a drug screen was completed and reviewed within the last year, and if there has not been a drug screen completed we ordered one today to monitor higher risk, state monitored pain medication use. As part of providing excellent, safe, comprehensive care, the following was completed at our patient's visit: 1. A medication reconciliation and review to ensure accurate knowledge of current/active medications, including asking our patients to inform us about any zifi-aol-ebkxrkm medications or herbal remedies/nutritional supplements/alternative remedies. 2. A review to specifically ensure our patients have had annual screening for screening for depression, screening for tobacco use, and screening for unhealthy alcohol use. For concerning screenings had a discussion with the patient, provided patient education, and recommended follow-up with primary care provider when appropriate. If patient noted with a risk of falling, they received education on strength, gait, and balance training to prevent future risk of falling. Portions of this note may have been carried over from the previous visit and updated as appropriate. Please note this office utilizes paper charting in addition to the electronic medical record. A list of current medications, vitals, and PMH is available there as the clinical staff outside of myself do not have access to [employer] charting during the clinic day operations. As part of providing quality comprehensive care the current medications, vitals, and PMH were reviewed in the paper chart. Assessment and Plan Assessment and Plan (1) Lumbar spondylosis: (2) Myalgia: Plan The patient has had over 3 months of moderate to severe low back pain with functional impairment and inadequate response to conservative care including NSAIDS (unless there are contraindication such as concurrent blood thinners), multiple oral or topical pain medications, and home exercise program/physical therapy.? Patient has completed >6 weeks of guided home exercise program and/or formal physical therapy program without relief of their symptoms.? The Oswestry Disability Index was completed, and the patient scored a 24%.? repeat bilateral L4-5 L5-S1 facet RFA under fluoroscopy for facet mediated low back pain. procedure to be completed with MAC sedation as pt previously had significant difficulty lying flat and tolerating the injection which increased risks for patient harm and safety concerns. continue HEP and stretching as tolerated can continue chiropratcic care prn f/u 1 month after RFA complete
== END 2025-04-01 13:14 | disposition home or self-care (01) ==
LOC: PM 13:14
PROVIDERS: PCP Family Medicine; Visit Provider Nurse Practitioner
DX: M47.816 Spondylosis without myelopathy or radiculopathy, lumbar region (principal); M79.18 Myalgia, other site
CPT/HCPCS: G0463

== ENCOUNTER 2025-04-19 07:45 | Day surgery (SDC) | payer BC, SELFPAY ==
--- OUTSIDE RECORDS SUMMARY | 2024-02-03 04:00 | XMS_ITS ---
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 Name Role Phone Patricia Arslan Primary Care Provider [phone] Tuan Reza Unavailable [phone] REASON FOR VISIT hardware removal LT foot Encounters Encounter Location Date Provider Diagnosis [facility] [address] [place] [address] 02/03/2024 Tuan Reza Plan Of Treatment No Information Progress Notes * GUYRoma CORBIN NDOB: [birth year] (29 yo F)Acc No.[id number]:02/03/2024 UNLOCKED PROGRESS NOTE Patient:?Roma LANDAVERDE Flower :?Tuan Reza DPM, MSDOB:1995???Age: 28 Y???Sex:FemaleDate:4Phone:[phone]:[address] [id number]:Arslan Bell Out:09:44 AM EST * * Electronic signature of Tuan Reza DPM on 04/19/2025 at 07:49 AM EDTSign off status: PendingVisit Status:?CHK (Check Out) * Provider: Kat Reza DPM, MS Date: 0 02/03/2024 Generated for Printing/Faxing/eTransmitting on:?04/19/2025 07:49 AM EDT
--- OUTSIDE RECORDS SUMMARY | 2024-04-22 05:30 | XMS_ITS ---
Author Organization [facility] in [place] Address [address] [place] [address] Care Team Providers Care Systems Analysis Manager Name Role Phone Arslan Gomez Primary Care Provider [phone] Tuan Armenta Unavailable [phone] REASON FOR VISIT 4 week follow up Encounters Encounter Location Date Provider Diagnosis [facility] (PODIATRY) [address] [place] [address] [place] [address] 04/22/2024 Tuan Reza Plan Of Treatment No Information Progress Notes * Roma TOVAR NDOB: [birth year] (29 yo F)Acc No.[id number]:04/22/2024 UNLOCKED PROGRESS NOTE Progress Note Patient: Roma DIGGS :?Tuan Reza DPM, MSDOB:1995???Age: 28 Y???Sex:FemaleDate:4Phone:[phone]:[address], [place]-[id number]:Arslan Gomez Subjective: * Chief Complaints: * 1 . 4 week follow up. * Medical History: Objective: * Vitals: Assessment: Plan: * Treatment: * * Electronic signature of Tuan Reza DPM on 04/19/2025 at 07:50 AM EDTSign off status: PendingVisit Status:?CANC (Cancelled) * Provider: Kat Reza DPM, MS Date: 1 Generated for Printing/Faxing/eTransmitting on:?04/19/2025 07:50 AM EDT
--- OUTSIDE RECORDS SUMMARY | 2024-06-04 11:15 | XMS_ITS ---
Author Organization [facility] es Address [address] [place] [address] Care Team Providers Care Steel Die Printer Name Role Phone Moriah Mendoza Primary Care Provider REASON FOR VISIT 6 week followup Encounters Encounter Location Date Provider Diagnosis [facility] [address] [place] [address] 06/04/2024 Moriah Mendoza Plan Of Treatment Next Appt Details Provider Name:Roberta Bar joshua, 04/29/2025 02:30:00 PM, [address] [place], [address], Progress Notes * RAJIV LANDAVERDE NDOB: [birth year] (29 yo F)Acc No.[id number]:06/04/2024 Behavioral Health Patient: Artemio RITCHIERAJIV Flower Provider:Manuel MendozaDOB:1995???Age:29 Y ???Sex:FemaleDate:06/04/2024hone:[phone]:[address], [place]-[id number] Subjective: * Chief Complaints: * 6 week followup Billing Information: * Procedure Codes: * Electronic signature of ANITA Medrano on 04/19/2025 at 07:50 AM EDTSign off status: Pending * Appointment Provider: Artemio Mendoza Date: 08/05/2023 Generated for Printing/Faxing/eTransmitting on:?04/19/2025 07:50 AM EDT
--- OUTSIDE RECORDS SUMMARY | 2024-08-05 11:30 | XMS_ITS ---
Author Organization [facility] in [place] Address [address] [place] [address] Care Team Providers Care Threader Operator Name Role Phone Arslan Gomez Primary Care Provider [phone] Tuan Armenta Unavailable [phone] REASON FOR VISIT 3 months f/u Encounters Encounter Location Date Provider Diagnosis [facility] (PODIATRY) [address] [place] [address] [place] [address] 08/05/2024 Tuan Reza Plan Of Treatment No Information Progress Notes * Roma TOVAR NDOB: [birth year] (29 yo F)Acc No.[id number]:08/05/2024 UNLOCKED PROGRESS NOTE Follow Up Patient: Roma DIGGS :?Tuan Reza DPM, MSDOB:1995???Age: 29 Y???Sex:FemaleDate:08/05/2024Phone:[phone]:[address], [place]-[id number]:Arslan Gomez Subjective: * Chief Complaints: * 1 . 3 months f/u. * Medical History: Objective: * Vitals: Assessment: Plan: * Treatment: * * Electronic signature of Tuan Reza DPM on 04/19/2025 at 07:50 AM EDTSign off status: PendingVisit Status:?CANC (Cancelled) * Provider: Kat Reza DPM, MS Date: 0 08/05/2024 Generated for Printing/Faxing/eTransmitting on:?04/19/2025 07:50 AM EDT
--- OUTSIDE RECORDS SUMMARY | 2024-09-17 09:45 | XMS_ITS ---
Author Organization [facility] es Address [address] [place] [address] Care Team Providers Care Data Administrator Name Role Phone Moriah Mendoza Primary Care Provider REASON FOR VISIT 3 month f/u Encounters Encounter Location Date Provider Diagnosis [facility] [address] [facility] [place] [address] 09/17/2024 Moriah Mendoza Plan Of Treatment Next Appt Details Provider Name:Roberta beard, 04/29/2025 02:30:00 PM, [address] [place], [address], Progress Notes * RAJIV LANDAVERDE NDOB: [birth year] (29 yo F)Acc No.[id number]:09/17/2024 Behavioral Health Patient: Artemio RITCHIE RAJIV Crenshaw Provider:Manuel MendozaDOB:1995???Age:29 Y ???Sex:FemaleDate:09/17/2024Phone:[phone]:[address] [id number] Subjective: * Chief Complaints: * 3 month f/u Billing Information: * Procedure Codes: * Electronic signature of ANITA Medrano on 04/19/2025 at 07:49 AM EDTSign off status: Pending * Appointment Provider: Artemio Mendoza Date: 0 09/17/2024 Generated for Printing/Faxing/eTransmitting on:?04/19/2025 07:49 AM EDT
--- OUTSIDE RECORDS SUMMARY | 2024-09-30 10:30 | XMS_ITS ---
Author Organization [facility] es Address [address] [place] [address] Care Team Providers Care Hogshead Inspector Name Role Phone Moriah Mendoza Primary Care Provider [phone] REASON FOR VISIT BH F/U r/s from 09/17 Encounters Encounter Location Date Provider Diagnosis [facility] [address] [place] [facility] [address] 09/30/2024 Moriah Mendoza Plan Of Treatment Next Appt Details Provider Name:Roberta beard, 04/29/2025 02:30:00 PM, [address] [place], [address], Progress Notes * RAJIV LANDAVERDE NDOB: [birth year] (29 yo F)Acc No.[id number]:09/30/2024 Behavioral Health Patient: Artemio RITCHIE RAJIV Crenshaw Provider:Manuel MendozaDOB:1995???Age:29 Y ???Sex:FemaleDate:09/30/2024Phone:[phone]:[address] [id number] Subjective: * Chief Complaints: * B H F/U r/s from 09/17 Billing Information: * Procedure Codes: * Electronic signature of ANITA Medrano on 04/19/2025 at 07:49 AM EDTSign off status: Pending * Appointment Provider: Artemio Mendoza Date: 0 09/30/2024 Generated for Printing/Faxing/eTransmitting on:?04/19/2025 07:49 AM EDT
--- OUTSIDE RECORDS SUMMARY | 2025-01-07 10:00 | XMS_ITS ---
Author Organization [facility] es Address [address] [place] [address] Care Team Providers Care Hand Stamper Name Role Phone [facility] Mendoza Primary Care Provider REASON FOR VISIT 3 month f/u Encounters Encounter Location Date Provider Diagnosis [facility] [address] [place] [address] 01/07/2025 Moriah Mendoza Plan Of Treatment Next Appt Details Provider Name:Roberta beard, 04/29/2025 02:30:00 PM, [address] [place], [address], Progress Notes * RAJIV LANDAVERDE NDOB: [birth year] (29 yo F)Acc No.[id number]:01/07/2025 Behavioral Health Patient: Artemio RITCHIE RAJIV Crenshaw Provider:Manuel MendozaDOB:1995???Age:29 Y ???Sex:FemaleDate:01/07/2025Phone:[phone]:[address] [id number] Subjective: * Chief Complaints: * 3 month f/u Billing Information: * Procedure Codes: * Electronic signature of ANITA Medrano on 04/19/2025 at 07:49 AM EDTSign off status: Pending * Appointment Provider: Artemio Mendoza Date: 0 01/07/2025 Generated for Printing/Faxing/eTransmitting on:?04/19/2025 07:49 AM EDT
--- OUTSIDE RECORDS SUMMARY | 2025-03-10 06:30 | XMS_ITS ---
Author Organization [employer] [facility] es Address [address] [place] [address] Care Team Providers Care Tool Design Engineer Name Role Phone [facility] Mendoza Primary Care Provider Roberta Mooney Unavailable [phone] REASON FOR VISIT Pt is a 29 year old female, AREN from [facility], 1 month f/u, Pt states the Venlafaxine dose is too high, she would like a lower dose, LM Medications Medication SIG (Take, Route, Frequency, Duration) Notes Start Date End Date Status Lo Loestrin Fe Not-Taking/PRNVenlafaxine HCl ER 75 MG Capsule Extended Release 24 Hour1 capsule with food Orally daily; Duration: 30 daysdecrease dosage; please disregard refills for 150mgActivemetFORMIN HCl 500 MG Tablet1 tablet with meals twice daily Orally twice daily; Duration: 30 daysNot-Taking/PRNAuvelity 45-105 MG Tablet Extended Release1 tablet in the morning Orally twice daily; Duration: 30 daysNot-Taking/PRNVraylar 4.5 MG Capsule1 capsule Orally Once a day; Duration: 30 days01/21/2023Not-Taking/PRNtraZODone HCl 100 MG Tablet1 tablet at bedtime Orally Once a day; Duration: 30 daysActivehydrOXYzine Pamoate 50 MG CapsuleTAKE 1 CAPSULE BY MOUTH EVERY 6 HOURSActivePrazosin HCl 2 MG Capsule1 capsule at bedtime Orally at bedtime; Duration: 30 daysActivebusPIRone HCl 15 MG Tablet1 tablet Orally dailyActivelamoTRIgine 100 MG Tablet1 tablet Orally daily; Duration: 30 daysActiveDrospirenoneActive Vital Signs Blood pressure systolic 115 mm Hg 03/10/20 25 Blood pressure diastolic 78 mm Hg 025 Heart Rate 84 /min 03/10/2025 Height 66 in 03/10/2025 Weight 165.0 lbs 03/10/2025 BMI 26.63 kg/m2 03/10/2025 Oximetry 100 % 03/10/2025 Encounters Encounter Location Date Provider Diagnosis [facility] [address] [place] [address] 03/10/2025 Roberta Tierafredi PTSD (post-traumatic stress disorder) F43.10 ; Major depressive disorder, recurrent episode with anxious distress F33.9 and Mood disorder F39 Assessments Encounter Date Diagnosis (ICD Code) Assessment Notes Treatment Notes Treatment Clinical Notes Section Notes 03/10/2025 PTSD (post-traumatic stress diso rder) (ICD-10 - F43.10) 03/10/2025Major depressive disorder, recurrent episode with anxious distress (ICD-10 - F33.9)03/10/2025Mood disorder (ICD-10 - F39) Plan Of Treatment Medication Medication Name Sig Start Date Stop Date Notes Venlafaxine HCl ER 75 MG Cap tamie Extended Release 24 Hour 1 capsule with food Orally daily; Duration: 30 days decrease dosage; please disregard refills for 150mgNext Appt Details Provider Name:Roberta Bar kisha, 04/29/2025 02:30:00 PM, [facility] [place], [address], History and Physical Notes * Examination CategorySub-CategoryDetailNotesCategory NotesGeneral Examination . MENTAL STATUS EXAM: . Appearance: Appropriately dressed and groomed, good eye contact, cooperative, pleasant Behavior/Motor Activity: Normal Gait/Station: Within normal limits Speech: Normal Mood: Good Affect: Full Thought processes/Associations: Logical and goal directed Thought Content: Non-psychotic Cognition/Attention/Memory/Concentration: Alert and oriented x 4; grossly intact attention; memory-recent/remote judged adequate by interviewer Insight: Good Judgement: Good language: Within normal limits Fund of Knowledge: Adequate . Progress Notes * RAJIV LANDAVERDE NDOB: [birth year] (29 yo F)Acc No.[id number]:03/10/2025 Behavioral Health Patient: RAJIV DIGGS :?Roberta MooneyDOB:1995???Age:29 Y???Sex: FemaleDate:03/10/2025Phone:[phone]:[address], [id number]:[facility]iah Mendoza Subjective: * Chief Complaints: * P t is a 29 year old female, [place] from [place], 1 month f/uPt states the Venlafaxine dose is too high, she would like a lower doseLM * HPI: ???Constitutional:? Pt is being seen today for follow up via in-office visit. Thisis pt's first time with this provider. She is a [place] from [place] [facility]. Pt is tolerating meds well and taking medications daily. . Pt states she would like to go down on her effexor.? . Pt states she has been having mood fluctuation. Energy and motivation are stable. Depressive symptoms are not persistent. Denies episodes of having sadness, anhedonia, isolating behaviors, or crying spells. Anxiety controlled. Concentration intact without distractibility.? . Sleeping through the night and feels rested upon waking up. Denies Nightmares. Appetite is good. . Denies Euphoria. Pervasive irritability is controlled today. Meaningful relationships intact. Denies increased goal-oriented behavior or increase in purposeless activity. Attending work as scheduled. . Denies suicidal or homicidal ideation or plan. No morbid thoughts. Interpersonal issues discussed. Support provided. Insight oriented/ Behavior modifying/ Supportive therapy. No counseling at this time.? . * ROS: ???CONSTITUTIONAL: No fever, chills, sweats, weakness SKIN: No jaundice, rash, lesions, petechiae GASTROINTESTINAL: No nausea, vomiting, diarrhea, or GI bleeding MUSCULOSKELETAL: No muscle pain or weakness NEUROLOGIC: No headache, dizziness, numbness, or weakness . * Medications: T akingDrospirenone Prazosin HCl 2 MG Capsule 1 capsule at bedtime Orally at bedtime busPIRone HCl 15 MG Tablet 1 tablet Orally daily traZODone HCl 100 MG Tablet 1 tablet at bedtime Orally Once a day hydrOXYzine Pamoate 50 MG Capsule TAKE 1 CAPSULE BY MOUTH EVERY 6 HOURS lamoTRIgine 100 MG Tablet 1 tablet Orally daily Venlafaxine HCl ER 150 MG Capsule Extended Release 24 Hour 1 capsule with food Orally daily Taking Drospirenone Taking Prazosin HCl 2 MG Capsule 1 capsule at bedtime Orally at bedtime Taking busPIRone HCl 15 MG Tablet 1 tablet Orally daily Taking traZODone HCl 100 MG Tablet 1 tablet at bedtime Orally Once a day Taking hydrOXYzine Pamoate 50 MG Capsule TAKE 1 CAPSULE BY MOUTH EVERY 6 HOURS Taking lamoTRIgine 100 MG Tablet 1 tablet Orally daily Taking Venlafaxine HCl ER 150 MG Capsule Extended Release 24 Hour 1 capsule with food Orally daily Not-Taking/PRNmetFORMIN HCl 500 MG Tablet 1 tablet with meals twice daily Orally twice daily Auvelity 45-105 MG Tablet Extended Release 1 tablet in the morning Orally twice daily Vraylar 4.5 MG Capsule 1 capsule Orally Once a day Lo Loestrin Fe Medication List reviewed and reconciled with the patientNot-Taking/PRN metFORMIN HCl 500 MG Tablet 1 tablet with meals twice daily Orally twice daily Not-Taking/PRN Auvelity 45-105 MG Tablet Extended Release 1 tablet in the morning Orally twice daily Not-Taking/PRN Vraylar 4.5 MG Capsule 1 capsule Orally Once a day Not-Taking/PRN Lo Loestrin Fe Medication List reviewed and reconciled with the patient Objective: * Vitals: H t: 66 in, Wt: 165.0 lbs, BMI:26.63Index, BP: 115/78 mm Hg, SaO2:100%, HR: 84 /min. * Examination: ???General Examination: ???. MENTAL STATUS EXAM: . Appearance: Appropriately dressed and groomed, good eye contact, cooperative, pleasant Behavior/Motor Activity: Normal Gait/Station: Within normal limits Speech: Normal Mood: Good Affect: Full Thought processes/Associations: Logical and goal directed Thought Content: Non-psychotic Cognition/Attention/Memory/Concentration: Alert and oriented x 4; grossly intact attention; memory-recent/remote judged adequate by interviewer Insight: Good Judgement: Good language: Within normal limits Fund of Knowledge: Adequate . . Assessment: * Assessment: 1.?Major depressive disorder, recurrent episode with anxious distress - F33.9 (Primary)? ?2.?PTSD (post-traumatic stress disorder) - F43.10???3.?Mood disorder - F39??? Plan: * Treatment: Decrease Venlafaxine HCl ER Capsule Extended Release 24 Hour, 75 MG, 1 capsule with food, Orally, daily, 30 days, 30 Capsule, Refills 5, Notes to Pharmacist: decrease dosage; please disregard refillsfor 150mg.?? Billing Information: * Procedure Codes: * Electronic signature of ANITA Isaacs on 04/19/2025 at 07:49 AM EDT Sign off status: Pending * Provider: Osvaldo Mooney Date: 0 03/10/2025 Generated for Printing/Faxing/eTransmitting on:?04/19/2025 07:49 AM EDT
--- OUTSIDE RECORDS SUMMARY | 2025-04-19 07:49 | XMS_ITS | Patient Health Record ---
Author Organization [employer] es Address [address] [place] [address] Care Team Providers Care Rehabilitation Supervisor Name Role Phone Moriah Mendoza Primary Care Provider [phone] Roberta Mooney Unavailable [phone] Allergies Allergen (clinical drug ingredient) Drug/Non Drug Allergy documented on EMR Reaction Allergy Type Onset Date Status hydrocodone Hydrocodone hives Drug Allergy ActiveoxycodoneOxycodonehivesDrug AllergyActivePenicillinhivesDrug AllergyActive Reason For Referral No Information Medications Medication SIG (Take, Route, Frequency, Duration) Notes Start Date End Date Status traZODone HCl 100 MG Tablet 1 tablet at bedtime Orally Once a day; Duration: 30 days ActivehydrOXYzine Pamoate 50 MG CapsuleTAKE 1 CAPSULE BY MOUTH EVERY 6 HOURS ActiveLo Loestrin FeNot-Taking/PRNDrospirenoneActiveVenlafaxine HCl ER 75 MG Capsule Extended Release 24 Hour1 capsule with food Orally daily; Duration: 30 daysdecrease dosage; please disregard refills for 150mgActivePrazosin HCl 2 MG Capsule1 capsule at bedtime Orally at bedtime; Duration: 30 daysActivebusPIRone HCl 15 MG Tablet1 tablet Orally dailyActivemetFORMIN HCl 500 MG Tablet1 tablet with meals twice daily Orally twice daily; Duration: 30 daysNot-Taking/PRN Auvelity 45-105 MG Tablet Extended Release1 tablet in the morning Orally twice daily; Duration: 30 daysNot-Taking/PRNVraylar 4.5 MG Capsule1 capsule Orally Once a day; Duration: 30 days01/21/2023Not-Taking/PRNlamoTRIgine 100 MG Tablet1 tablet Orally daily; Duration: 30 daysActive Social History Tobacco Use: Social History Observation Description Date Details (start date - stop date) Never Smoker NA - NA Social History GeneralSocial InfoQuestionAnswerNotesDepression Screening (PHQ-9):Little interest or pleasure in doing thingsSeveral daysFeeling down, depressed, or hopelessSeveral daysTrouble falling or staying asleep, or sleeping too much Several daysFeeling tired or having little energySeveral daysPoor appetite or overeatingSeveral daysFeeling bad about yourself-or that you are a failure or have let yourself or your family downSeveral daysTrouble concentrating on things, such as reading the newspaper or watching televisionSeveral daysMoving or speaking so slowly that other people could have noticed. Or the opposite being so fidgetyor restless that you have been moving around a lot more than usualSeveral daysThoughts that you would be better off , or of hurting yourself in some wayNot at allTotal Fxwpg3OkbukqksuqrigBuon DepressionTobacco Screen:Are you a:never smokerAlcohol Screening:Did you have a drink containing alcohol in the past year?Yes? How often did you have a drink containing alcohol in the past year?Monthly or less (1 point)? How many drinks did you have on a typical day when you were drinking in the past year?1 or 2 (0 points)Points1 InterpretationNegative Problems Problem Type SNOMED Code ICD Code Onset Dates Problem Status W/U Status Risk Notes Problem Acute stress reaction (70871247) Acute st ress reaction (F43.0) ActiveconfirmedProblemMixed anxiety and depressive disorder (646458591) Depression with anxiety (F41.8)ActiveconfirmedProblemMood disorder (75404395) Mood disorder (F39)ActiveconfirmedProblemPosttraumatic stress disorder (88736301)PTSD (post-traumatic stress disorder) (F43.10)ActiveconfirmedProblem Migraine variant with headache (disorder) (006975314)Migraine headache (G43.909) ActiveconfirmedProblemRecurrent major depression (04837460)Major depressive disorder, recurrent episode with anxious distress (F33.9)Activeconfirmed Vital Signs Heart Rate 84 /min 03/10/2025 Respiratory Rate12 /min02/01/20254258Hiykneqg176 %03/10/2025lood pressure diastolic 78 mm Hg03/10/20252646Dllhik94 in03/10/2025lood pressure mvaoiqof470 mm Hg 03/10/20257685Zblyju862.0 lbs03/10/2025BMI26.63 kg/m203/10/2025 Encounters Encounter Location Date Provider Diagnosis [facility] [address] [place] [address] 06/08/2024 Moriah Mendoza Mood disorder F39 [facility] [address] [place] [address] 06/09/2024 Moriah Mendoza Mood disorder F39 [facility] [address] [facility] [address] 03/08/2025 Roberta Mooney Mood disorder F39 [facility] [address] [place] [address] 03/10/2025 Roberta Mooney PTSD (post-traumatic stress disorder) F43.10 ; Major depressive disorder, recurrent episode with anxious distress F33.9 and Mood disorder F39 [facility] [address] [place] [address] 04/23/2024 Moriah Mendoza Mood disorder F39 and PTSD (post-traumatic stress disorder) F43.10 [facility] [address] [place] [address] 06/18/2024 Moriah Mendoza Mood disorder F39 and PTSD (post-traumatic stress disorder) F43.10 [facility] [address] [place] [address] 10/09/2024 Moriah Mendoza Mood disorder F39 and PTSD (post-traumatic stress disorder) F43.10 [facility] [address] [place] [address] 01/11/2025 Moriah Mendoza Mood disorder F39 and PTSD (post-traumatic stress disorder) F43.10 [facility] [address] [place] [address] 02/01/2025 Moriah Mendoza Mood disorder F39 and PTSD (post-traumatic stress disorder) F43.10 Assessments Encounter Date Diagnosis (ICD Code) Assessment Notes Treatment Notes Treatment Clinical Notes Section Notes 04/23/2024 Mood disorder (ICD-10 - F39) Recommended treatment for Bipolar disorder includes FDA approved and OFF label medications: second generation antipsychotics and mood stabilizers. Discussed life threatening side effect of Lamotrigine. Pt is to monitor for new skin rashes or sensation of a sunburn or itchiness or redness, mouth sores or sores in mucus membranes, and call provider immediately and or go to ER, and stop the medication. Second generation antipsychotic medications can cause headache, drowsiness, agitation, dizziness, nausea, or extrapyramidal symptoms such as tremors, muscle spasms, slowness of movement or jerkingof muscles. The patient verbalizes understanding with all questions answered thoroughly and is in agreement with treatment plan. Continue current treatment. Add metformin to mitigate weight gain. . Call for problems . GOALS: . Maintain medication regimen _Improve mood stability _Improve anxiety control _Improve social and interpersonal functioning Patient/Guardian will call sooner if symptoms worsen. Patient understands to go to ER if needed if symptoms become severe. Crisis Intervention plan was discussed and agreed upon. Patient/Guardian will call 911 in case of emergency. Emergency contact information was provided to the patient/guardian. follow up 6 weeks. Pharmacological management: . Alternative medication plans were discussed with the patient/guardian. All relevant side effects and potential adverse effects were discussed with the patient/guardian. Standard cautions and potential benefits were discussed. Patient/Guardian consented to the start/continuation of the treatment. 10/09/2024Mood disorder (ICD-10 - F39) Recommended treatment for Mood disorder includes FDA approved and OFF label medications: second generation antipsychotics and mood stabilizers. Discussed life threatening side effect of Lamotrigine. Pt is to monitor for new skin rashes or sensation of a sunburn or itchiness or redness, mouth sores or sores in mucus membranes, and call provider immediately and or go to ER, and stop the medication.Second generation antipsychotic medications can cause headache, drowsiness, agitation, dizziness, nausea, or extrapyramidal symptoms such as tremors, muscle spasms, slowness of movement or jerking ofmuscles. Stable The patient verbalizes understanding with all questions answered thoroughly and is in agreement with treatment plan. Continue current treatment. Call for problems . GOALS: . Maintain medication regimen _Improve mood stability _Improve anxiety control _Improve social and interpersonal functioning Patient/Guardian will call sooner if symptoms worsen. Patient understands to go to ER if needed if symptoms become severe. Crisis Intervention plan was discussed and agreed upon. Patient/Guardian will call 911 in case of emergency. Emergency contact information was provided to the patient/guardian. follow up 3 months Pharmacological management: . Alternative medication plans were discussed with the patient/guardian. All relevant side effects and potential adverse effects were discussed with the patient/guardian. Standard cautions and potential benefits were discussed. Patient/Guardian consented to the start/continuation of the treatment. 02/01/2025Mood disorder (ICD-10 - F39) Recommended treatment for mood disorder includes FDA approved and OFF label medications: second generation antipsychotics and mood stabilizers. Discussed life threatening side effect of Lamotrigine. Pt is to monitor for new skin rashes or sensation of a sunburn or itchiness or redness, mouth sores or sores in mucus membranes, and call provider immediately and or go to ER, and stop the medication.Second generation antipsychotic medications can cause headache, drowsiness, agitation, dizziness, nausea, or extrapyramidal symptoms such as tremors, muscle spasms, slowness of movement or jerking ofmuscles. Stable The patient verbalizes understanding with all questions answered thoroughly and is in agreement with treatment plan. Continue current treatment. Call for problems . GOALS: . Maintain medication regimen _Improve mood stability _Improve anxiety control _Improve social and interpersonal functioning Patient/Guardian will call sooner if symptoms worsen. Patient understands to go to ER if needed if symptoms become severe. Crisis Intervention plan was discussed and agreed upon. Patient/Guardian will call 911 in case of emergency. Emergency contact information was provided to the patient/guardian. follow up 3 months Pharmacological management: . Alternative medication plans were discussed with the patient/guardian. All relevant side effects and potential adverse effects were discussed with the patient/guardian. Standard cautions and potential benefits were discussed. Patient/Guardian consented to the start/continuation of the treatment. 06/18/2024Mood disorder (ICD-10 - F39) Recommended treatment for Mood disorder includes FDA approved and OFF label medications: second generation antipsychotics and mood stabilizers. Discussed life threatening side effect of Lamotrigine. Pt is to monitor for new skin rashes or sensation of a sunburn or itchiness or redness, mouth sores or sores in mucus membranes, and call provider immediately and or go to ER, and stop the medication.Second generation antipsychotic medications can cause headache, drowsiness, agitation, dizziness, nausea, or extrapyramidal symptoms such as tremors, muscle spasms, slowness of movement or jerking ofmuscles. The patient verbalizes understanding with all questions answered thoroughly and is in agreement with treatment plan. Continue current treatment. Call for problems . GOALS: . Maintain medication regimen _Improve mood stability _Improve anxiety control _Improve social and interpersonal functioning Patient/Guardian will call sooner if symptoms worsen. Patient understands to go to ER if needed if symptoms become severe. Crisis Intervention plan was discussed and agreed upon. Patient/Guardian will call 911 in case of emergency. Emergency contact information was provided to the patient/guardian. follow up 3 months Pharmacological management: . Alternative medication plans were discussed with the patient/guardian. All relevant side effects and potential adverse effects were discussed with the patient/guardian. Standard cautions and potential benefits were discussed. Patient/Guardian consented to the start/continuation of the treatment. 4PTSD (post-traumatic stress disorder) (ICD-10 - F43.10)03/10/2025PTSD (post-traumatic stress disorder) (ICD-10 - F43.10)03/10/2025Major depressive disorder, recurrent episode with anxious distress (ICD-10 - F33.9)02/01/2025PTSD (post-traumatic stress disorder) (ICD-10 - F43.10)03/08/2025Mood disorder (ICD- 10 - F39)10/09/2024PTSD (post-traumatic stress disorder) (ICD-10 - F43.10) 01/11/2025Mood disorder (ICD-10 - F39) Recommended treatment for Bipolar disorder includes FDA approved and OFF label medications: second generation antipsychotics and mood stabilizers. Discussed life threatening side effect of Lamotrigine. Pt is to monitor for new skin rashes or sensation of a sunburn or itchiness or redness, mouth sores or sores in mucus membranes, and call provider immediately and or go to ER, and stop the medication. Second generation antipsychotic medications can cause headache, drowsiness, agitation, dizziness, nausea, or extrapyramidal symptoms such as tremors, muscle spasms, slowness of movement or jerkingof muscles Stable The patient verbalizes understanding with all questions answered thoroughly and is in agreement with treatment plan. Continue current treatment. Call for problems . GOALS: . Maintain medication regimen _Improve mood stability _Improve anxiety control _Improve social and interpersonal functioning Patient/Guardian will call sooner if symptoms worsen. Patient understands to go to ER if needed if symptoms become severe. Crisis Intervention plan was discussed and agreed upon. Patient/Guardian will call 911 in case of emergency. Emergency contact information was provided to the patient/guardian. follow up 1 month Pharmacological management: . Alternative medication plans were discussed with the patient/guardian. All relevant side effects and potential adverse effects were discussed with the patient/guardian. Standard cautions and potential benefits were discussed. Patient/Guardian consented to the start/continuation of the treatment. 01/11/2025PTSD (post-traumatic stress disorder) (ICD-10 - F43.10)04/23/2024TSD (post-traumatic stress disorder) (ICD-10 - F43.10)06/08/2024Mood disorder (ICD- 10 - F39)06/09/2024Mood disorder (ICD-10 - F39)03/10/2025Mood disorder (ICD-10 - F39) Plan Of Treatment Next Appt Details Provider Name:Roberta Riley Tieraeusebio kisha, 04/29/2025 02:30:00 PM, [address] [place] [address], [phone], Insurance Providers Payer Name Payer Address Payer Phone Subscriber Number Group Number Insured Name Patient Relationship to Insured Coverage Start Date Coverage End Date [employer] Primary [address] [place] [address] [id number] RAJIV LANDAVERDE Self - patient is the insured 1 5 ANTHEM Primary [address] [place] [address] [id number] RAJIV LANDAVERDE Self - patient is the insured 5 Medical (General) History Surgical History Surgery Date(Month/Year) cholecystectomy C-sectionImplants on ankles
--- OUTSIDE RECORDS SUMMARY | 2025-04-19 07:50 | XMS_ITS | Patient Health Record ---
Author Organization [facility] [place] Address [address] [place] [address] Care Team Providers Care Transaction Processor Name Role Phone Arslan Gomez Primary Care Provider Tuan Reza Unavailable [phone] Carli Freeman Unavailable [phone] Allergies Allergen (clinical drug ingredient) Drug/Non Drug Allergy documented on EMR Reaction Allergy Type Onset Date Status VicodinhivesDrug AllergyActiveoxycodoneOxycodonehivesDrug AllergyActiveSubstance with sulfonamide structure and antibacterial mechanism of action (substance) Sulfa AntibioticshivesDrug AllergyActivePenicillinhivesDrug AllergyActive Results Component Value Reference Range Notes FREE T3 Reviewed date:10/10/2024 11:39:58 AM Interpretation: Performing Lab: Notes/Report: [facility] , Free T3 3.31 2.18-3.98 pg/mL Performing Lab:see noteML - [facility] LBFREE T4 Reviewed date:10/10/2024 11:39:58 AM Interpretation: Performing Lab: Notes/Report: [facility] ,Free T41.110.76-1.46 ng/dLPerforming Lab:see noteML - [facility] PROF CHEM 8 (BAS METB) Reviewed date:10/10/2024 11:39:58 AM Interpretation: Performing Lab: Notes/Report: [facility] ,Kepoql498600-436 mmol/LPotassium3.73.5-5.1 mmol/VUlyozgha89359-006 mmol/LCarbon Zavuddl14.621.0-32.0 mmol/LAnion Gap15.2Jsielep5949-741 mg/dLBlood Urea Nitrogen 13.07.0-18.0 mg/dLCreatinine0.970.55-1.02 mg/dLEstimated GFR ( Marleni>60 >=60 mL/min/1.73m 2Estimated GFR (Non- Viola>60>=60 mL/min/1.73m 2BUN Creatinine Ratio13.6Dhuplju5.98.5-10.1 mg/dLPerforming Lab:see note - [facility] LBTSH Reviewed date:10/10/2024 11:39:58 AM Interpretation: Performing Lab: Notes/Report: [facility] ,Thyroid Stimulating Hormone4.0910.358-3.740 uIU/mLPerforming Lab:see [facility] LBVITAMIN D 25 [place] Reviewed date:10/10/2024 11:39:58 AM Interpretation: Performing Lab: Notes/Report: [facility] ,Vitamin D38.8 <20 ng/mL Vit D deficient 20-<30 ng/mL Vit D insufficient 30-100 ng/mL Vit D sufficient >100 ng/mL Potential Toxicity Performing Lab:see [facility] LBCORTISOL AM Reviewed date:10/12/2024 02:03:50 PM Interpretation: Performing Lab: Notes/Report: [facility] ,Cortisol - AM11.76.2-19.4 ug/dL Performed at: - [facility] [address] [id number] Glass Cut Off Tender: Caesar Ybarra PhD, Phone: [phone] Performing Lab:see note - [facility] LB Reason For Referral No Information Medications Medication SIG (Take, Route, Frequency, Duration) Notes Start Date End Date Status traZODone HCl 100 MG 1 tablet at bedtime Orally Once a day ActivePrazosin HCl 1 MG1 capsule at bedtime Orally Once a dayActivelamoTRIgine 25 MG1 tablet OrallyActivehydrOXYzine HCl 50 MG1 tablet as needed Orally Once a goaSebgltApymtsnx-Pdtwfqpat-Ltwpqsea 3.5-42115-4.11 drop into affected eye Ophthalmic Four times a day; Duration: 7 days06/04/2024ctiveDrospirenone- Ethinyl Estradiol 3-0.03 MG1 tablet Orally Once a dayActivebusPIRone HCl 15 MG1 tablet Orally Twice a dayActiveARIPiprazole 5 MG1 tablet Orally Once a dayActive Cephalexin 500 MG2 tabs Orally bid; Duration: 10 days05/27/2024ctiveVenlafaxine HCl ER 150 MG1 capsule with food Orally Once a dayActive Social History Tobacco Use: Social History Observation Description Date Details (start date - stop date) Never Smoker NA - NA Tobacco Use/Smoking Question Answer Notes Patient is a nonsmoker Alcohol Screen (Audit-C) Question Answer Notes Did you have a drink containing alcohol in the p ast year? Yes How many drinks did you have on a typical day when you were drinking in the past year?1 or 2 drinks (0 point)How often did you have a drink containing alcohol in the past year?Monthly (2 points)Qcrije4YacfmwqkqpeyzbCvngbwowNCKBY-K (Standard) Question Answer Notes Did you have a drink containing alcohol in the p ast year? 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)ActiveconfirmedProblemLocalized, primary osteoarthritis of the ankle and/or foot (371462341)Primary osteoarthritis, left ankle and foot (M19.072)ActiveconfirmedProblemPain associated with internal prosthetic device (disorder) (806767040)Pain due to internal orthopedic prosthetic devices, implants and grafts, initial encounter (T84.84XA)ActiveconfirmedProblemSerous otitis media (88245214)Serous otitis media (H65.90)ActiveconfirmedProblemChronic fatigue syndrome (57371789)Chronic fatigue syndrome (R53.82)ActiveconfirmedProblemGraves' disease (481352961) Graves' disease (E05.00)Activeconfirmed Vital Signs Heart Rate 101 /min 05/07/2024 Kqwmluhuopi46.0 degrees Yosdztcsjv74/14/3894Lhoonwzl73 %05/07/20240532Wopeyl68 in 05/07/2024 Encounters Encounter Location Date Provider Diagnosis [facility] [address] [place] [address] 05/27/2024 Arslan Gomez [facility] [place] [address] 06/04/2024[facility] (PODIAT[facility])[address] [place] [address] [place] [address]/14/2024Kimberly CullenPain due to internal orthopedic prosthetic devices, implants and grafts, initial encounter T84.84XA Assessments Encounter Date Diagnosis (ICD Code) Assessment Notes Treatment Notes Treatment Clinical Notes Section Notes 05/07/2024 Pain due to internal orthopedic prosthetic devices, implants and grafts, initial encounter (ICD-10 - T84.84XA) The patient is 3 months status post removal of painful orthopedic hardware from the left ankle, DOS: 02/03/2024. She is currently doing physical therapy. She states pain continues to improve, but she is not pain-free yet. She does report she has less pain than she did prior to her surgery.The patient was offered reassurance that it can take up to several more months to reach maximum medical benefit after evena minor surgery. I recommend she continue physical therapy.RICE therapy and agov-peq-wobnxei analgesia as needed.Follow-up in [address] Evaristo Galvez, sooner if any issues arise. No x-rays necessary at follow-up. Plan Of Treatment No Information Insurance Providers Payer Name Payer Address Payer Phone Subscriber Number Group Number Insured Name Patient Relationship to Insured Coverage Start Date Coverage End Date [employer] ACCESS PPO PLUS LOCAL PLAN [address] [place] [phone] [id number] Roma Tovar Self - patient is the insured Medical (General) History Medical History History ICD Code COVID-19 U07.1 Chronic back pain 724.5 Chronic fatigue syndrome R53.82 Common migraine G43.009 Corpus luteum cyst of left ovary N83.12 Dysfunctional uterine bleeding N93.8 Eczema L30.9 Ganglion cyst M67.40 Graves' disease E05.00 HPV (human papilloma virus) infection B9 7.7 Osteopenia M85.80 Ventricular septal defect Q21.0 Syncope R55 Surgical History Surgery Date(Month/Year) Removal hardware in foot- Dr. Reza 05/2018 Removal of hardware from left foot 02/02 Diagnostic Laparoscopy CHOLECYSTECTOMYARSI Stent Rt Foot10/2008Right long finger mass removalLap Roselyn w/intraoperative uahkgkczgjvrw27/17/2020Hospitalization History Reason Date(Month/Year) see above
--- OUTSIDE RECORDS SUMMARY | 2025-04-19 07:50 | XMS_ITS | Clinical Summary ---
Author Organization [facility] Address [address] [place] [address] Care Team Providers Care [employer] Presser Name Role Phone Sixto Gomez MD Primary Care Provider [phone] Allergies Active AllergyReactionsCriticalityNoted DateCommentsPenicillin G008/01/2023 Other Reaction(s): hives Penicillin G JaqqcoJgkhRzu67/16/5492SjqegcxjopuTfnyo76/19/2014Sulfa Antibiotics 08/01/2023 Other Reaction(s): hives Sulfamethoxazole-EgnuntwufwczVxlbGds30/16/2024 Medications MedicationSigDispense QuantityRefillsLast FilledStart DateEnd DateStatus ibuprofen 800 MG tablet Take 1 tablet by mouth every 8 (eight) hours if neededActive hydrOXYzine pamoate (Vistaril) 50 MG capsule Active busPIRone (Buspar) 15 MG tablet every 12 (twelve) hoursActive hyoscyamine (Levsin) 0.125 MG SL tablet DISSOLVE 1 TABLET UNDER TONGUE 4 TIMES DAILY NEEDEDActive lamoTRIgine (LaMICtal) 25 MG tablet Active ondansetron ODT (Zofran-ODT) 4 MG disintegrating tablet every 8 (eight) hours02/03/2024ctive prazosin (Minipress) 1 MG capsule 1 (one) time each day at the same timeActive traZODone (Desyrel) 100 MG tablet 1 (one) time each day at the same timeActive venlafaxine XR (Effexor XR) 37.5 MG 24 hr tablet Take 1 tablet by mouth DailyActive ARIPiprazole (Abilify) 5 MG tablet 1 (one) time each day at the same timeActive norethindrone-ethinyl estradiol-iron (Lo Loestrin) 1 MG-10 MCG / 10 MCG tablet Take 1 tablet by mouth DailyActive metFORMIN XR (Glucophage-XR) 500 MG 24 hr tablet Indications:Hormone imbalance,Insulin resistanceTake 1 tablet (500 mg) by mouth in the evening. Take with meals Do not crush, chew, or split. 30 tablet 4Active Additional Information Patient not taking.Reported on 10/06/2024 valACYclovir (Valtrex) 500 MG tablet Indications:Herpesviral vesicular dermatitisTake 1 tablet daily, by mouth, 30 days 30 tablet 5Active drospirenone-ethinyl estradiol (Zumandimine) 3-0.03 MG tablet Indications:Uses controlTAKE 1 TABLET BY MOUTH EVERY DAY IN THE MORNING 84 tablet 5Active Active Problems No known active problems Encounters DateTypeDepartmentCare QmbxNmbyovfyoom16/04/2025Refill [facility] [address] [place] [address] [place] [id number] Flynn Archibald, Uses controlfrom Last 3 Months Family History Medical HistoryRelationNameCommentsBreast cancerFather's SisterLeukemiaFather's SisterLung cancerMaternal GrandfatherRelationNameStatusCommentsFather's Sister Maternal Grandfather Social History Tobacco UseTypesPacks/DayYears UsedDateSmoking Tobacco: NeverSmokeless Tobacco: Never Tobacco Cessation:Counseling Given: Not Answered Alcohol UseStandard Drinks/WeekCommentsNever0 (1 standard drink = 0.6 oz pure alcohol)CommentsNoSex and Gender InformationValueDate RecordedSex Assigned at BirthNot on fileLegal TefKwcjnv72/15/2023 10:13 PM EDTGender IdentityNot on fileSexual OrientationNot on file Last Filed Vital Signs Vital SignReadingTime TakenCommentsBlood Ljzuylty627/7404 2:25 PM EDT Tifau3973 2:25 PM EDTTemperature--Respiratory Jrzo425610/06/2024 2:25 PM EDTOxygen Stavffgafx95%10/06/2024 2:25 PM EDTInhaled Oxygen Concentration-- Uknarj20.9 kg (174 lb)10/06/2024 2:25 PM WCPLukqgr780.6 cm (5' 6 )10/06/2024 2:25 PM EDTBody Mass Index28.0810/06/2024 2:25 PM EDT Plan of Treatment DateTypeDepartmentCare Team (Latest Contact Info)Kuwmxlufapk08/25/2026 2:20 PM EDTOffice Visit [facility] [address] [place] [phone] Vaishali Singh MD [address] [place] [address] Insurance Care Teams Team MemberRelationshipSpecialtyStart DateEnd Sixto Gomez MD PCP - GeneralFamily Medicine08/22/23
--- OUTSIDE RECORDS SUMMARY | 2025-04-19 07:52 | XMS_ITS | CCD ---
Author Organization [facility] CliniSyco Care Team Providers Care Rn Hematology Name Role Phone DR AKASH MARTINEZ Admitting [...] Consulting Unavailable Unavailable Primary Care Provider Unavailmarly e Erica POLK, Andponcho Simmons Attending Unavailable Erica POLK, Andrius Simmons Attending Unavailable Erica POLK, Andrius Iris Attending Unavailable Erica POLK, Andrius Simmons Attending Unavailable Erica POLK, Andrius Simmons Attending Unavailable Alon Weber MD Primary Care Provider [phone] LEWIS SEWELL Attending Unavailable FLYNN ARCHIBALD Attending Unavailable MY SINGH Attending Unavailable JAMAR AUSTIN Attending Unavailable JAMAR AUSTIN Referring Unavailable Allergies Allergy ClassificationReported Allergen(s)Allergy TypeDate of OnsetReaction(s) Facility (2 sources)HYDROcodoneDrug [facility]stsdhj08-19-1211[facility] ([facility] sources)oxyCODONEDrug Tpvriqq77-94-7232OuyZanesville City Hospital Rep[facility] (2 sources)PenicillinsDrug allergy (disorder)19-29-7217HqxZ[facility] (4 sources)Acetaminophen / HYDROcodoneDrug Atduawm30-50-1306LednfcfNNUO Healthcare (4 sources)HYDROcodoneDrug Ipwyuxt71-54-7214CmhprCBJG Healthcare Work Phone: (3 sources)oxyCODONEDrug Dwmhmkv59-94-0464GealqHWRH Healthcare (13 sources)Penicillin GDrug Evckxlk39-00-1912KJPY Healthcare (13 sources)Penicillin G sodiumAllergy to -09-6300TcqkZGBA Healthcare (13 sources)PenicillinsDrug Mduieaj30-73-4163EkogmSRSU Healthcare (13 sources)Sulfamethoxazole / TrimethoprimDrug Wbftzbo01-63-7507KrlhBRBD Healthcare (13 sources)Sulfonamides (Antibiotic)Drug Veujacf93-00-3821JQTX Healthcare Medications Current Medications MedicationDrug Class(es)DatesSig (Normalized)Sig (Original)ARIPiprazole 5 mg oral tablet (9 sources)Atypical AntipsychoticARIPiprazole (Abilify) 5 MG tablet 1 (one) time each day at the same time ActivebusPIRone hydrochloride 15 mg oral tablet (10 sources)busPIRone (Buspar) 15 MG tablet every 12 (twelve) hours Active drospirenone 3 mg / ethinyl estradiol 0.03 mg oral tablet (13 sources)Progestin, EstrogenStart: 98-52-7595suxexwqolbfx-ethinyl estradiol (Loreto, Ocella) 3-0.03 MG tablet Indications: Uses control TAKE 1 TABLET BY MOUTH EVERY DAY IN THE MORNING 84 tablet 3 03/24/2024 ActiveStart: 04-24-2023 End: 09-68-0334awvxvidvlxte-ethinyl estradiol (Loreto, Ocella) 3-0.03 MG tablet Indications: Uses control Take 1 tablet by mouth in the morning. 360 tablet 04/24/2023 04/23/2024 ActiveEthinyl Estradiol / Ferrous fumarate / Norethindrone (9 sources)Estrogentake 1 tablet by mouth once dailynorethindrone-ethinyl estradiol-iron (Lo Loestrin) 1 MG-10 MCG / 10 MCG tablet Take 1 tablet by mouth Daily ActivehydrOXYzine pamoate 50 mg oral capsule (10 sources)AntihistaminehydrOXYzine pamoate (Vistaril) 50 MG capsule Active hyoscyamine sulfate 0.125 mg sublingual tablet (9 sources)hyoscyamine (Levsin) 0.125 MG SL tablet DISSOLVE 1 TABLET UNDER TONGUE 4 TIMES DAILY NEEDED Activeibuprofen 800 mg oral tablet (10 sources)Nonsteroidal Anti-inflammatory Drugtake 1 tablet by mouth every eight hours as neededibuprofen 800 MG tablet Take 1 tablet by mouth every 8 (eight) hours if needed ActivelamoTRIgine 25 mg oral tablet (9 sources)Mood Stabilizer, Anti-epileptic AgentlamoTRIgine (LaMICtal) 25 MG tablet Ruvcwb06 hr metFORMIN hydrochloride 500 mg extended release oral tablet (6 sources)BiguanideStart: 12-52-4558ttxd 1 tablet by mouth every twenty-four hours at mealtimemetFORMIN XR (Glucophage-XR) 500 MG 24 hr tablet Indications: Hormone imbalance , Insulin resistance Take 1 tablet (500 mg) by mouth in the evening. Take with meals Do not crush, chew, or split. 30 tablet 11 03/19/2024 Activeondansetron 4 mg disintegrating oral tablet (9 sources)Serotonin-3 Receptor AntagonistStart: 32-91-8878lkbrsfyduzi ODT (Zofran-ODT) 4 MG disintegrating tablet every 8 (eight) hours 02/03/2024 Active prazosin 1 mg oral capsule (9 sources)alpha-Adrenergic Blockerprazosin (Minipress) 1 MG capsule 1 (one) time each day at the same time ActivetraZODone hydrochloride 100 mg oral tablet (9 sources)Serotonin Reuptake InhibitortraZODone (Desyrel) 100 MG tablet 1 (one) time each day at the same time ActivevalACYclovir 500 mg oral tablet (13 sources)Herpesvirus Nucleoside Analog DNA Polymerase Inhibitor, Herpes Simplex Virus Nucleoside Analog DNA Polymerase Inhibitor, Herpes Zoster Virus Nucleoside Analog DNA Polymerase InhibitorStart: 04-06-2024 End: 93-40-6222flrj 1 tablet by mouth once dailyvalACYclovir (Valtrex) 500 MG tablet Indications: Herpesviral vesicular dermatitis Take 1 tablet daily, by mouth, 30 days 30 tablet 11 09/17/2024 ActiveStart: 11-19-2023 End: 65-14-3006tukn 1 tablet by mouth once dailyvalACYclovir (Valtrex) 500 MG tablet Indications: Herpesviral vesicular dermatitis Take 1 tablet daily, by mouth, 30 days 30 tablet 11 11/19/2023 03/03/2024 DiscontinuedStart: 08-08-2023 take 1 tablet by mouth once dailyvalACYclovir (Valtrex) 500 MG tablet Indications: Herpesviral vesicular dermatitis Take 1 tablet daily, by mouth, 30 days 30 tablet 11 08/08/2023 ActiveStart: 68-01-4814osyk 1 tablet by mouth once dailyvalACYclovir (Valtrex) 500 MG tablet Indications: Herpesviral vesicular dermatitis Take 1 tablet daily, by mouth, 30 days 30 tablet 08/08/2023 Active 24 hr venlafaxine 37.5 mg extended release oral tablet (9 sources)Serotonin and Norepinephrine Reuptake Inhibitortake 1 tablet by mouth once dailyvenlafaxine XR (Effexor XR) 37.5 MG 24 hr tablet Take 1 tablet by mouth Daily Active Problems Active Problems Problem ClassificationProblemDateDocumented DateEpisodic/Chronic Administrative/social admission (2 sources)Patient encounter status; Translations: [Dietary counseling and surveillance]73-27-3781IwqjtymyCpkucpphbxw deficiencies (2 sources)Vitamin D deficiency; Translations: [Vitamin D deficiency, unspecified]34-78-4753ItjrvqeBttne endocrine disorders (2 sources)Polycystic ovary syndrome; Translations: [Polycystic ovarian syndrome]28-61-9233FgsnznhLwxov nutritional; endocrine; and metabolic disorders (2 sources)Weight increased; Translations: [Abnormal weight gain]10-06-2024 EpisodicOther skin disorders (2 sources)Loss of hair; Translations: [Nonscarring hair loss, unspecified] 93-86-0731TaqrgfifAkgukhxhrni; intervertebral disc disorders; other back problems (6 sources)Spondylosis without myelopathy or radiculopathy, lumbar region; Translations: [Other intervertebraldisc degeneration, thoracic region]Onset: 60-11-6628NldyexsChrxjlxsncts (2 sources)COUGH, UNSPECIFIED; Translations: [COUGH, UNSPECIFIED]Onset: 50-05-3123Quubkngwdjjx (1 source)CONTACT W/AND (SUSP) EXPOS COVID-19; Translations: [CONTACT W/AND (SUSP) EXPOS COVID-19]Onset: 71-41-4501Raxrojpeakqz (1 source)LOW BACK PAIN, UNSPECIFIED; Translations: [LOW BACK PAIN, UNSPECIFIED] Onset: 37-92-2435Uyqta infection (4 sources)Herpesviral vesicular dermatitis; Translations: [Herpesviral vesicular dermatitis]54-41-9030Aadtixmc Past or Other Problems Problem ClassificationProblemDateDocumented DateEpisodic/ChronicAbdominal pain (4 sources)Unspecified abdominal pain; Translations: [UNSPECIFIED ABDOMINAL PAIN]Onset: 02-34-5804BneswoeeZwdyucivdicqs mental health disorders (2 sources)Rolle; Translations: [Other symptoms and signs involving emotional state]66-15-7048VxcskqaqGwoeq aftercare (1 source)Other fci (current) drug therapy; Translations: [OTH 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 ANALYST CURRENT DRUG THERAPY]Onset: 24-35-4316ZnapzuzsIaibj endocrine disorders (2 sources)Disorder of endocrine system; Translations: [Endocrine disorder, unspecified]78-93-8269EfhfleqbGezoo nutritional; endocrine; and metabolic disorders (2 sources)Weight gain; Translations: [Abnormal weight gain]32-72-7839Tatmwbhp Other upper respiratory infections (1 source)Acute upper respiratory infection, unspecified; Translations: [ACUTE UP RESPIRATORY INFECTION UNS]Onset: 24-20-1878EyliqxqdKpknyvqo codes; unclassified (2 sources)Flushing; Translations: [Flushing]30-57-7415XnxjsljcOskaiegidpsq (1 source)COUGH, UNSPECIFIED; Translations: [COUGH, UNSPECIFIED]Onset: 09-03-2021 Results Test NameValueInterpretationReference RangeFacilityALL CBC WITH AUTO DIFFon 83-13-7322UPEEAJZAC ABSOLUTE AUTO0.1NOMS HealthcareBasophils/100 WBC (Bld)1.2 % 0.2 - 2.0 %NOMS HealthcareEosinophils/100 WBC (Bld)2.7 %0.9 - 7.0 %NOMS HealthcareErythrocyte distribution width (RBC) [Ratio]11.9 %11.0 - 15.0 %NOMS HealthcareHematocrit (Bld) [Volume fraction]44.5 %36.0 - 48.0 %[facility] Hemoglobin (Bld) [Mass/Vol]15.0 g/dL12.0 - 16.0 g/dLNONM HealthcareIMMATURE GRANULOCYTES ABS AUTO0.01NOMS HealthcareImmature granulocytes/100 WBC (Bld)0.2 % 0.0 - 0.5 %NOMS HealthcareLYMPHOCYTES ABSOLUTE AUTO2.4[facility] Lymphocytes/100 WBC (Bld)39.7 %20.5 - 60.0 %[facility] HospitalMCH (RBC) [Entitic mass]31.3 pg26.7 - 34.[address] [facility]'s HospitalHC (RBC) [Mass/Vol]33.7 g/dL29.9 - 35.2 g/dLNOSaint John's Health SystemV (RBC) [Entitic vol]92.7 fL81.0 - 99.0 fLNONM HealthcareMONOCYTES ABSOLUTE AUTO0.3NOMS HealthcareMonocytes/100 WBC (Bld)5.2 % 1.7 - 12.0 %NOMS HealthcareNEUTROPHILS ABSOLUTE AUTO3.1[facility] Neutrophils/100 WBC (Bld)51.0 %43.0 - 75.0 %NOM HealthcarePlatelet mean volume (Bld) [Entitic vol]10.4 fL9.5 - 13.5 fLNOMS [facility] CenterTBH EO #0.2[facility] TBH MFA548IKOO HealthcareTB RBC4.80NOMS HealthcareTB WBC6.0[facility] CLINISYNCNONM HealthcareCovid-19 PCR ([facility])on 63-37-2259RGDO-CoV-2 (COVID-19) RNA MARY+probe Ql (Unsp spec)Not detectedNormalNOT DETECTEDThe [facility] Comment on above:Result Comment: This test is not yet approved or cleared by the [place] FDA. When there are no FDA-approved or cleared tests available, and other criteria are met, FDA can make tests available under an emergency access mechanism called an Emergency Use Authorization (EUA). The EUA for this test is supported by the [place] of Health and Human Service's (HHS's) declaration that circumstances exist to justify the emergency use of in vitro diagnostics for the detection and/or diagnosis of the virus that causes COVID- 19. This EUA will remain in effect (meaning [...] of clinical signs and symptoms consistent with SARS-CoV-2.Performed By: #### CVDTBH #### [facility] [address] [place] [address] Dr. Karlos Cummings STREP CULTUREon 09-03-2021. pyogenes Ag Ql (Unsp spec) Culture Observations: NEGATIVE FOR GROUP A STREPTOCOCCUS.NormalFort Hamilton Hospitalment on above: Performed By: #### SSCRN, GRASTCX #### [facility] [address] [place] [address] Dr. Karlos Cummings AND B AGon 43-37-5869GESIACACNGTTT McKitrick HospitalComment on above:Result Comment: Negative for Flu A protein angiten. Infection due to Flu A cannot be ruled out. FluA angiten in the sample may be below the detection limit of the test.Performed By: #### INFLUAB #### [facility] [address] [place] [address] Dr. Karlos ValentinoUBNEGHSGenesis Hospital on above: Result Comment: Negative for Flu B protein antigen. Infection due to Flu B cannot be ruled out. FluB antigen in the sample may be below the detection limit of the test.Performed By: #### INFLUAB #### [facility] [address] [place] [address] Dr. Karlos Cummings AGNegativeNormalNEGATIVE SEE COMMENTThe Medina HospitalComment on above:Performed By: #### INFLUAB #### [facility] [address] [place] [address] Dr. Karlos Price AGNegativeNormalNEGATIVE SEE COMMENTThe [facility] on above:Performed By: #### INFLUAB #### [facility] [address] [place] [address] Dr. Karlos AugustinINTERNAL CONTROLSWithin Normal LimitsNormalWithin Normal Limits The [facility] HospitalComment on above:Performed By: #### INFLUAB #### [facility] [address] [place] [address] Dr. Karlos AugustinSTREPT SCREENon 72-66-7655NSCYL SCREEN ANegativeNormalNEGATIVEThe [facility]ina HospitalComment on above:Performed By: #### SSCRN, GRASTCX #### [facility] [address] [place] [address] Dr. Karlos Healy HCG QUALon 94-71-2651AJHGCYQVD, QUALNegativeNormalNEGATIVE The [facility] HospitalComment on above:Performed By: #### PREG #### [facility] [address] [place] [address] Dr. Karlos Healy HCG QUALon 26-26-6348TGETCJISA, QUALNegativeNormalNEGATIVE The [facility] HospitalComment on above:Performed By: #### PREG #### [facility] [address] [place] [address] Dr. Karlos AugustinCT ABDOMEN AND PELVIS W IV CONTRASTon 86-49-7594XG ABDOMEN AND PELVIS W IV CONTRASTCincinnati Children's Hospital Medical Center Department of Radiology [address] [place] [id number] Patient Name: RAJIV TOVAR : 1995 Sex: F Age: Race: White Pt. Location: [facility] Patient Status: D Ordered Date: 03/21/2021 4:00:00 PM Completed Date: 04/05/2021 03:49 PM Requesting Provider: ДМИТРИЙ CALLAHAN Attending Provider: ДМИТРИЙ CALLAHAN Report Copy To: ALON WEBER Signs & Symptoms: R10.31 Right lower quadrant pain I10 History: Josefa Is patient on meds for HTN or DM? 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 Per [employer] for CPT 17289 Ref#[id number] Med Nec-Passed *SLA Comments: Exam: CT ABDOMEN [...] Electronically signed: Noemy Stanley M.D.. Transcribed by: [email or web address], User Resident: Electronically Signed by: NOEMY STANLEY @ 04/07/2021 01:25 PMNormalThe [facility] Medical CenterCCC CHEST 2 [facility] 99-57-9148VWL CHEST 2 [facility] Department of Radiology [address] [place] [id number] Patient Name: RAJIV TOVAR : 1995 Sex: F Age: Race: White Pt. Location: [facility] Patient Status: D Ordered Date: 03/21/2021 2:25:00 PM Completed Date: 03/21/2021 02:22 PM Requesting Provider: ДМИТРИЙ CALLAHAN Attending Provider: Report Copy To: Signs & Symptoms: R07.81 Pleurodynia I10 History: Sells Comments: right ribs pain Exam: [facility] CHEST 2 S [facility] CHEST 2 [facility] [...] disease Electronically signed: Cyril Olivo. Transcribed by: [email or web address], User Resident: Electronically Signed by: CYRIL OLIVO @ 03/22/2021 02:39 [facility] CenterComment on above:Order Comment: right ribs painCoding Summary.on 01-06-0712Htbyor Summary. CD:[id number] [file] OiBj (more content not included)...NormalCleveland Clinic South Pointe HospitalAuto Diffon 80-17-4621Uznabrvlc/100 WBC (Bld)0.4 %Normal0.0-2.0[facility] Comment on above:Order Comment: Order Added by Discern Expert.Performed By: #### 9322401, 9711835, 86444392, 46625551, 78130224, 51813848, 7519854, 4911749, 9227106, 3616630 ####[facility] [address] [place], [place] [address]Ouaiyjewi/Leukocytes Auto (Bld) [Pure # fraction]0.0 E9/L Normal0.0-0.2FOhioHealth Nelsonville Health CenterComment on above:Order Comment: Order Added by Discern Expert.Performed By: #### 6987722, 3716328, 53202656, 21693766, 07031674, 45045024, 6528152, 0513051, 8747009, 2238953 ####[address] [address]Byxtccwnjyt/100 WBC (Bld)0.6 % Normal0.0-8.0[facility] Pointe HospitalComment on above:Order Comment: Order Added by Discern Expert.Performed By: #### 8058087, 8879427, 73293631, 12663691, 23797685, 23057986, 5242578, 6491219, 7059273, 2452142 ####[address] [place], [place] [address]Njyyoytkibc/Leukocytes Auto (Bld) [Pure # fraction]0.0 E9/LNormal0.0-0.5FOhioHealth Nelsonville Health CenterComment on above:Order Comment: Order Added by Discern Expert.Performed By: #### 6187995, 2644117, 70797374, 71147715, 45355274, 95976206, 3727377, 8211016, 0618752, 6910275 ####[facility] [address] [place], [place] [address]Wdgnfjdatoq/100 WBC (Bld)7.9 %Low14.0-50.0[facility] Pointe HospitalComment on above:Order Comment: Order Added by Discern Expert. Performed By: #### 5746966, 8450190, 80693559, 49958951, 31141104, 01456931, 8948002, 9187610, 5054725, 0146753 ####[address] [place], [place] [address]Fbguuistarv/Leukocytes Auto (Bld) [Pure # fraction] 0.4 E9/LLow1.0-4.0[facility] HospitalComment on above:Order Comment: Order Added by Discern Expert.Performed By: #### 9775041, 5907667, 76069280, 18815527, 54282118, 25405121, 0674356, 8608794, 8102405, 4748872 ####[place] [address] [address]Ofluyrbfj/100 WBC (Bld)5.5 %Normal4.0-14.0[facility] Po[facility] HospitalComment on above:Order Comment: Order Added by Discern Expert.Performed By: #### 9182905, 1630830, 40157504, 17462360, 37512400, 33445257, 9689119, 7947088, 3466300, 0465038 ####[address] [address] Monocytes/Leukocytes Auto (Bld) [Pure # fraction]0.3 E9/LNormal0.2-1.0[facility] HospitalComment on above:Order Comment: Order Added by Discern Expert.Performed By: #### 0299636, 7870580, 47190429, 36337229, 11732257, 91057832, 3946615, 2261336, 2626182, 2783736 ####[address] [place], [place] [address]Wuvfbgbvhkf/100 WBC (Bld)85.6 %High 36.0-75.0[facility] HospitalComment on above:Order Comment: Order Added by Discern Expert.Performed By: #### 1170211, 1337109, 67407772, 32788338, 29862957, 06470094, 6857789, 0427978, 7098185, 2254449 ####[facility] [address] [place], [place] [address]Jwzxvsukdpo/Leukocytes Auto (Bld) [Pure # fraction]4.5 E9/LNormal2.0-7.5FOhioHealth Nelsonville Health CenterComment on above:Order Comment: Order Added by Discern Expert.Performed By: #### 9449625, 6852611, 35406287, 14309018, 92928404, 72491566, 3524118, 0506811, 1498149, 1995328 ####[facility] [address] [place], [place] [address]Q hCG Qualon 91-87-3133Pmpj hCG QlNegativeNormalCleveland Clinic South Pointe HospitalComment on above:Performed By: #### 8747957, 4572771, 81138158, 03851419, 36445775, 85122842, 1276568, 4035415, 5912606, 0247466 ####[facility] [address] [place], [place] [address]DQUob 02-28-2021 Creatinine [Mass/Vol]0.7 mg/dLNormal0.5-1.3FOhioHealth Nelsonville Health CenterComment on above:Performed By: #### 4804006, 5237486, 90407620, 42812663, 46955494, 04868488, 7517589, 8256283, 9811266, 4007360 ####[facility] [address] [place], [place] [address]Zqxc nitrogen [Mass/Vol]9 mg/dLNormal 5-21[facility] HospitalComment on above:Performed By: #### 5460973, 8206052, 58956446, 89101873, 83078896, 42388679, 2202891, 8117302, 6132679, 9214557 ####[facility] [address] [place], [place] [address]Nnjy nitrogen/Creatinine [Mass ratio]13 No VlsecPliutn84-65ZwomplCleveland Clinic South Pointe HospitalComment on above:Performed By: #### 5193707, 8518779, 26250987, 76147964, 78636392, 24386616, 5739916, 8674616, 9141289, 0463305 ####[facility] [address] [place], [place] [address]Caucx gap [Moles/Vol]14 mmol/LNormal6-16[facility] HospitalComment on above: Performed By: #### 4416185, 9472746, 19287650, 45577333, 95480089, 54907490, 3054116, 5689650, 0296057, 0402503 ####[facility] [address] [place], [place] [address]Tgwqduz [Mass/Vol]8.5 mg/dLLow8.9-11.1FOhioHealth Nelsonville Health CenterComment on above:Performed By: #### 1017487, 6210610, 70397690, 97860302, 51672162, 35336394, 0209247, 9931087, 7034656, 7186096 ####[facility] [address] [place], [place] [address]Oeivwmnr [Moles/Vol]102 mmol/UAhvxou287-176JpkgyqCleveland Clinic South Pointe HospitalComment on above: Performed By: #### 9145531, 1311701, 36980845, 25770429, 47203487, 54603507, 3996043, 2316725, 2548514, 5423305 ####[facility] [address] [place], [place] [address]VH6 [Moles/Vol]21 mmol/LNfmugs44-86EbthvfCleveland Clinic South Pointe HospitalComment on above:Performed By: #### 8393398, 9208656, 03459925, 16636746, 84561064, 23808460, 7655599, 4978375, 7825916, 9789540 ####[facility] [address] [place], [place] [address]Vxupkch [Mass/Vol]95 mg/pIVwlsgv09-489ZsdqumCleveland Clinic South Pointe HospitalComment on above:Result Comment: If this glucose result represents a fasting glucose, interpretation should refer tothe following reference range: 55-99 mg/dLPerformed By: #### 6415840, 5491412, 75430337, 71097562, 69862392, 52079610, 5473584, 3859532, 7328302, 5643446 ####[facility] [address] [place], [place] [address]Vooraguol [Moles/Vol]3.6 mmol/LNormal3.5-5.3FOhioHealth Nelsonville Health CenterComment on above:Performed By: #### 6866280, 3763833, 89804577, 21301454, 06066140, 37933929, 4824283, 4275648, 5433226, 3969527 ####[facility] [address] [place], [place] [address]Lwficv [Moles/Vol]133 mmol/WWrn707-772GdfzvmCleveland Clinic South Pointe HospitalComment on above: Performed By: #### 3063441, 7815948, 19160769, 18042060, 44548605, 97883070, 9979001, 5709066, 9791850, 1854631 ####[facility] [address] [place], [place] [address]QTU w/ Auto Diffon 80-25-5822Muqulwgnfvk distribution width (RBC) [Ratio]12.4 %Xatzxl14.9-14.2FOhioHealth Nelsonville Health Center Comment on above:Performed By: #### 1029572, 5727727, 84827248, 54925950, 07924680, 08922029, 3435864, 4983705, 9334098, 3759372 ####[facility] [address] [place], [place] [address]Fcsyvlvooj (Bld) [Volume fraction]38.1 %Hxnzdg84.0-46.0[facility] HospitalComment on above: Performed By: #### 3868076, 4099996, 62437670, 76633517, 90827307, 61357877, 0249110, 7727815, 0452306, 7748428 ####[facility] [address] [place] [address]Fmgarcvocb (Bld) [Mass/Vol]13.3 g/gMHnjkih94.0-16.0 [facility] HospitalComment on above:Performed By: #### 5305554, 3361518, 54548622, 84867999, 05136626, 24643213, 6022644, 0727815, 6105154, 1570931 ####[address] [address]SDY (RBC) [Entitic mass]31.7 fjUdwlya62.0-34.0[facility] HospitalComment on above:Performed By: #### 0999236, 1870995, 08685966, 70506420, 27219036, 63513585, 9907746, 4462469, 6397105, 9696416 ####[address] [address]SBCW (RBC) [Mass/Vol]35.0 g/dLNormal 31.4-36.0[facility] HospitalComment on above:Performed By: #### 7000758, 9822516, 87240450, 57133465, 24611488, 26740648, 8589355, 5164696, 9230477, 9188701 ####[address] [address]YGT (RBC) [Entitic vol]90.8 qSEptkzj44.0-100.0[facility] Comment on above:Performed By: #### 7284604, 1107948, 57408225, 03427086, 93606625, 74672504, 3903228, 8122641, 1160481, 2091481 ####[address], [place] [address]Qpbceaoj mean volume (Bld) [Entitic vol]10.0 fLNormal6.4-10.8[facility] HospitalComment on above: Performed By: #### 7775067, 7142756, 59684015, 63850756, 37020604, 79346295, 2580711, 1011358, 3790447, 2005779 ####[address] [address]Mtfbnjdhu (Bld) [#/Vol]144.0 E9/HDbp895.0-500.0 [facility] HospitalComment on above:Performed By: #### 3699932, 2178959, 75945209, 90830103, 71699744, 04221115, 7423698, 4346175, 3608782, 1228579 ####[address] [address]NMO (Bld) [#/Vol]4.2 E12/LLow4.3-5.9[facility] HospitalComment on above: Performed By: #### 7216937, 0849727, 68712817, 13148550, 73220060, 86113876, 0540933, 3570465, 3701717, 4393744 ####[address] [address]SJI corrected for nucl RBC Auto (Bld) [#/Vol]5.3 E9/LNormal4.0-11.0[facility] HospitalComment on above:Performed By: #### 0923676, 8046846, 86305184, 23016280, 83794427, 97160763, 3154761, 7846289, 1204033, 0167279 ####[address] [address]NDNBZ-03 ([place])on 33-98-7259EEWB-CoV-2 (COVID-19) RNA MARY+probe Ql (Unsp spec)Not detectedNormalNot DetectedCleveland Clinic South Pointe HospitalComment on above:Result Comment: This test result should be correlated with clinical presentations and medical history by a healthcare provider to determine its clinical significance. This assay was performed by a reverse transcriptase real-time polymerase chain reaction (rt PCR) method on the [facility] system. This test has been authorized only [...] (1), unless authorization is terminated or revoked sooner.Performed By: #### [id number] #### [facility] [address] [place] [address] 48666RSNC-CkA-5 (COVID-19) RNA MARY+probe Ql (Unsp spec)PassNormal Greene Memorial HospitalComment on above:Performed By: #### [id number] #### [facility] [address] [place] [address] 645[address]Noaetegb source Nom (Unsp spec)NasalNormRegional Medical CenterComment on above:Performed By: #### [id number] #### [facility] [address] [place] [address] 21069Oxpdezoi in HealthcareNONTriHealth McCull[facility] Comment on above:Performed By: #### [id number] #### [facility] [address] [place] [address] 08818Jczuq TestUnknownNTriHealth McCullough-Hyde Memorial HospitalComment on above:Performed By: #### [id number] #### [facility] [address] [place] [address] 26795Dsyqzhimjpkl?NONTriHealth McCullough-Hyde Memorial HospitalComment on above:Performed By: #### [id number] #### [facility] [address] [place], [place] [address]OWNSHCojlemIfkqmbMount Carmel Health SystemComment on above: Performed By: #### [id number] #### [facility] [address] [place], [place] [address]Oeoinjdb?NONTriHealth McCullough-Hyde Memorial HospitalComment on above: Performed By: #### [id number] #### [facility] [address] [place] [address] 92387Lyruiaf in a [facility] Care SettingNONTriHealth McCullough-Hyde Memorial HospitalComment on above:Performed By: #### [id number] #### [facility] [address] [place] [address] 31069Vyjdapsrduz as defined by [facility]APPLETONYESHolzer Medical Center – JacksonComment on above:Performed By: #### [id number] #### [facility] [address] [place] [address] 51717Dzcngyv for Treatmenton 61-25-8270Xohrqwh for Treatment [id number]#1.00CD:127NoMount Carmel Health SystemD-Dimeron 27-99-5938Jfthtx D-dimer FEU (PPP) [Mass/Vol]388 CD:[id number] Zyymec560-910Oewsqm16 Watson StreetComment on above:Result Comment: This assay is intended for use as an aid in the diagnosis of DVT or PE. These condit ions cannot be excluded with certainty solely on [...] infections, pneumonia, severe skin infections Liver cirrhosis PregnancyPerformed By: #### 2291494, 3085609, 23875092, 90490842, 08946717, 09996883, 6805467, 1455333, 9027724, 0011821 ####[facility] [address] [place], [place] [address]Zrxqytswm Instructionson 02-28-2021 Discharge [id number]#1.00CD:127Normal [facility] Clinical Summaryon 64-80-0263YR Clinical Summary [address] [address] ED Clinical Summary Person Information Name: RAJIV TOVAR/[facility] Age: 25 Years : 1995 Sex: Female Language: Northern Irish PCP: Alon Weber MD Marital Status: Single [...] 02/28/2021 11:17:01 02/28/2021 11:17:01 02/28/2021 11:17:01 ADDRESS: [address] [facility] [id number] PHYS DOC NOTES: MEDICAL INFORMATION: Prescriptions Given: [...] Follow up: With: Address: When: Alon Weber [address] [place] [address], [place] [address] Business (1) In 3 days DIAGNOSIS: Chest pain; Viral URINormalFisher Newton Medical CenterED Note-Physicianon 23-55-9931WT Note-PhysicianBasic Information Time Seen: Laureano Phillip DO 02/28/2021 09:14 Chief Complaint Bady aches since early saturday morning. Chest heaviness, sore throat, bilateral ear pain. Denies anySOB or dyspnea. States no fevers at this time. History of Present Illness 25 female presents to the emergency department with chest heaviness. Patient states that she has had the body aches and some chest heaviness since Saturday morning. She describes chest heaviness sore throat and overall body aches. She is not having any shortness of breath she is never had this beforeshe denies any fevers but has felt warm with chills. Multiple other family members in the house aresick with a similar virus and no one has been tested for COVID-19. Patient is not vaccinated against COVID-19. She denies any chance of stating that she is currently on control. Patient denies any abdominal pain no pain or swelling into her legs no other aggravating or alleviating fa ctors. Patient has 0 CAD risk factors. No other aggravating or relieving factors no other associated symptoms no other prior treatments orcomplaints. Only risk factor for DVT or PE [...] Patient did undergo COVID-19 testing which is pending.Patient is educated that she likely does have [...] Stop date 02/28/21 9:28:00 EDT, STAT, Start date02/28/21 9:28:00 EDT, 02/28/21 9:28:00 EDT aspirin, 162 [...] hCG Qual CBC w/ Auto Diff COVID-19 ([place]) D-Dimer ECG 12 Lead Adult ED Cardiac [...] Information Alon Weber In 3 days [address] [facility] [place] [place] [address]- Business (1) Additional Instructions: Patient Education COVID-19: How to Protect Yourself and Others - [facility] COVID-19 Frequently Asked Questions Upper Respiratory Infection, Adult Problem List/Past Medical History Ongoing Depression Historical No qualifying data Procedure/Surgical History Laparoscopic cholecystectomy (05/10/2020), EGD (esophagogastroduodenoscopy) gastric outlet reduction (04/29/2020), section (07/23/2019), Ankle, [...] Denies Alcohol Use, 01/30 (more content not included)...[facility] Medical Center – JacksonComment on above:Result Comment: Electronically Signed By: Laureano Phillip DO\.ilana\Date and Time Signed: 02/28/21 11:03EDTED Patient Summaryon 30-11-0067OM Patient Summary [address] [address] Patient Discharge Instructions Person Information Name: RAJIV TOVAR Age: 25 Years Arrival Date: 02/28/2021 09:10:34 Discharge Diagnosis: Chest pain; Viral URI Primary Care Physician: Alon Weber MD Provider Information Primary Provider: Laureano Phillip DO Advanced Blindstitch Hemmer:None The exam and treatment you received in the Emergency Department were for an urgent problem and are not intended as complete care. It is important that you follow up with a doctor, nurse practitioner,or physician?s family readiness support assistant for ongoing care. If your symptoms [...] Follow-up Instructions: With: Address: When: Alon Weber [address] [place] [address], [facility] [place] [address] Business (1) In 3 days [...] opioids can be used to help relieve hhulfiwl-xp-dtzvwy pain and are often prescribed following a [...] and have fewer risks and side effects. Optionsmay include: ? Pain relievers such as acetaminophen, [...] unused prescription opioids: Find your community drug take- back program or yourpharmacy mail-back program, or flush them down the toilet, following guidance from the Food and Drug Administration (www.fda.gov/Drugs/ResourcesForYou). ? Visit www.cdc.gov/drugoverdose to learn about the risks of opioids abuse and overdose. ? If you believe you may be struggling with addiction, tell your health team primary care physician and ask for guidance or (more content not included)...[facility] Center – JacksonHep Func Panelon 44-16-3496FFN [Catalytic activity/Vol]52 Int._Unit/LDqyqha17-67IakmrlCleveland Clinic South Pointe HospitalComment on above:Performed By: #### 8556537, 0273472, 66997099, 40993628, 06473472, 54048587, 4211136, 3279537, 2421728, 2146625 ####[facility] [address] [place], [place] [address]Chwdtxn [Mass/Vol]4.2 g/dLNormal3.3-5.0[facility] HospitalComment on above:Performed By: #### 9491255, 3331867, 23194505, 02466937, 87887727, 12691158, 2730641, 0117539, 3088750, 4097911 ####[address] [address]Ykhzwfu/Globulin (S) [Mass conc ratio]1.3Dnzrhb8.1-2.2FOhioHealth Nelsonville Health CenterComment on above:Performed By: #### 5835713, 4208707, 46261964, 20733006, 33402109, 06163752, 7841716, 1498775, 8270858, 5283896 ####[address] [address]UWG No additional P-5'-P [Catalytic activity/Vol]48 Int._Unit/LHigh6-46[facility] HospitalComment on above:Performed By: #### 3133534, 1906535, 31180051, 10162652, 30261480, 89774422, 7889359, 2120061, 3230333, 0197954 ####[address] [address]EQQ [Catalytic activity/Vol]39 Int._Unit/LNormal5-43[facility] HospitalComment on above:Performed By: #### 8395772, 6729436, 13954473, 71147767, 75774228, 65751073, 6025232, 8411696, 9397204, 5911405 ####[facility] [address] [place] [address] Bilirubin [Mass/Vol]1.2 mg/dLHigh0.0-1.1FOhioHealth Nelsonville Health CenterComment on above:Performed By: #### 9482125, 5260885, 82542982, 81011865, 74162899, 88578244, 2679650, 6341919, 2432104, 5597923 ####[facility] [address] [place] [address]Kgypetmgb.direct [Mass/Vol]0.2 mg/dL Normal0.1-0.4FOhioHealth Nelsonville Health CenterComment on above:Performed By: #### 3831031, 4027826, 25403476, 10718236, 52802408, 66670721, 5808214, 0266957, 6954950, 1019043 ####[address] [address]Kynwitfhf.indirect [Mass or moles/Vol]1.0 mg/dLHigh0.1-0.9 [facility] HospitalComment on above:Performed By: #### 6253918, 6424281, 98233856, 88788288, 08103954, 65611358, 7744030, 3559736, 2871094, 4709278 ####[address] [address] Globulin (S) [Mass/Vol]2.9 g/dLNormal1.4-4.0[facility] HospitalComment on above:Performed By: #### 7645010, 8698668, 14263233, 46310286, 31871006, 50967514, 6267776, 8001271, 0629896, 8856784 ####[address] [address]Hqxdxoe [Mass/Vol]7.1 g/dLNormal 6.0-7.8[facility] HospitalComment on above:Performed By: #### 7869604, 6393706, 82614543, 88561642, 64563973, 60902697, 2464374, 6853034, 3791918, 4225261 ####[facility] [address] [place], [place] [address]Yrxfjo Levelon 76-58-5074Tvetro [Catalytic activity/Vol]33 U/ZLbtywf01-60 [facility] HospitalComment on above:Performed By: #### 2335398, 4285457, 00790483, 06907199, 76961907, 78172220, 2971230, 5143830, 6283380, 7319176 ####[facility] [address] [place], [place] [address]KH & PTTon 40-50-5487rLKZ Coag (PPP) [Time]31.5 second(s)Uzbgud82.1-36.5FOhioHealth Nelsonville Health CenterComment on above:Result Comment: Heparin therapeutic range (represented by Anti-Factor Xa activity of 0.2 - 0.4 U/mL) corresponds to PTT of 56.6 - 109.0 sec.Performed By: #### 6739487, 8051953, 15238850, 54820388, 83320251, 72043283, 3538078, 4142472, 5393253, 1243532 ####[facility] [address] [place], [place] [address]FIX Coag (PPP) [Relative time]1.1 {INR}Invalid Interpretation CodeCleveland Clinic South Pointe HospitalComment on above:Result Comment: INR results are specifically intended to assess patients stabilized on long-term Anticoagulation therapy suggested INR?s ?Less Intensive Anticoagulation? 2.0 ? 3.0 Conventional Range 3.0 ? 4.5Performed By: #### 4752646, 6509588, 17095189, 85381530, 31784771, 65775561, 7898565, 9706897, 7437833, 5495615 ####[facility] [address] [place], [place] [address]GA Coag (PPP) [Time]13.1 second(s)High10.2-12.9C[facility] Pointe HospitalComment on above: Performed By: #### 1745704, 1345892, 60971075, 25554542, 73137237, 42599600, 0432909, 8673807, 4918720, 5521008 ####[facility] [address] [place], [place] [address]Njqmmrvhtqvhw/Work Noteson 02-28-2021 Prescriptions/Work [id number]#1.00CD:127 NormalCleveland Clinic South Pointe HospitalTroponin 0 Hr.on 54-01-6001Prnppnwe I.cardiac [Mass/Vol]ng/mLLow10.10-27.10[facility] HospitalComment on above:Result Comment: The 95% CI (Confidence Interval) PPV (Positive Predictive Value) for myocardial infarction in females is 38 pg/mL, in males 51 pg/mL. The results should be used in conjunction with clinical conditions of myocardial infarction. (Access High Sensitivity Troponin I Instructions For Use, [place], January 2018)Performed By: #### 1506971, 9460375, 40169483, 46713752, 08594896, 29919165, 2679022, 3474075, 0685139, 1142705 ####[facility] [address] [place], [place] [address]KW Chest Single Viewon 37-68-2502WX Chest Single ViewExam Date/Time: 02/28/2021 10:21 EDT Reason for Exam: [...] Tereso Granger MD Transcribed by: OLGA Technologist: SantaCleveland Clinic South Pointe HospitaleGFRon 19-72-6729DGY/1.73 sq M.predicted among blacks MDRD (S/P/Bld) [Vol rate/Area] mL/min/{1.73_m2}Normal>=59C[facility] Pointe HospitalComment on above:Order Comment: Order added by Discern Expert.Result Comment: eGFR is race adjusted. AA=.Performed By: #### 9852854, 8771326, 66360751, 29089151, 71402257, 01226519, 5217784, 1416715, 0630957, 1939004 ####[facility] [address] [place], [place] [address]TVJ/1.73 sq M.predicted among non-blacks MDRD (S/P/Bld) [Vol rate/Area]mL/min/{1.73_m2}Normal>=59C[facility] Pointe HospitalComment on above:Order Comment: Order added by Discern Expert. Result Comment: Chronic kidney disease could be indicated at eGFR's of less than 60 mL/min/1.73m2. Kidney failure is indicated at less than 15 mL/min/1.73m2. Performed By: #### 8150419, 0923628, 24882139, 19535103, 29478303, 99413657, 9721504, 2530621, 9130766, 0935493 ####[facility] [address] [place], [place] [address]U Urineon 03-95-4296Xrlevizc identified Cx Nom (U) Microbiology PROCEDURE: Urine Culture [R1] SOURCE: Urine BODY SITE: COLLECTED DATE/TIME: 01/30/2021 22:56 EDT RECEIVED DATE/TIME: 01/30/2021 23:58 EDT START DATE/TIME: 01/30/2021 23:58 EDT FREE TEXT SOURCE: Joshua Hollingsworth DO, DO, Kevin M. FINAL REPORTS Final Report [] Verified Date/Time: 02/01/2021 11:28 EDT >100,000 cfu/ml Escherichia coli SUSCEPTIBILITY RESULTS LEGEND: S=Susceptible, N/R=Not Reported, Blank=Data not available, or drug not advisable or tested, I=Intermediate, ESBL=Extended spectrum beta-lactamase, R=Resistant, TFG=Thymidine-dependent strain, PEREZ=Beta-lactamase positive, LAXMI=mcg/m;(mg/L), S*=Predicted susceptible interp, [...] Locations R1: This test was performed at: [facility], [address] [place] [address], [address] , , AuyzghDqxwjrHolzer Medical Center – JacksonComment on above:Performed By: #### 83818736, 1709233 ####[facility] [address] [place], [place] [address]Iuhvqy Summary.on 38-65-9142Jegwlq Summary. CD:[id number]:[id number]+PGhlYWQ+YL3PSSSyR34llKYuzI3DE6rRZV7UUGYDLIEXOK8MJO8mr TU6ILwlV6QltaXb [file] OiBj (more content not included)...NormalCleveland Clinic South Pointe HospitalB hCG Qualon 96-23-7574Hcfa hCG QlNegativeNormRegional Medical CenterComment on above: Performed By: #### 0650978, 9879091, 8243554, 35755679, 9604553, 95760769, 0048493 ####[facility] [address] [place], [place] [address]Discharge Instructionson 99-60-8382Tjsoytwdk Instructions [id number]#1.00CD:127NormWilson [facility] Clinical Summaryon 20-26-0485LU Clinical Summary [address] [address] ED Clinical Summary Person Information Name: RAJIV TOVAR/[facility] Age: 25 Years : 1995 Sex: Female Language: Northern Irish PCP: Alon Weber MD Marital Status: Single [...] 01/30/2021 23:43:48 01/30/2021 23:43:48 01/30/2021 23:43:48 ADDRESS: [address] [place] [phone] PHYS DOC NOTES: MEDICAL INFORMATION: Prescriptions Given: New Medications [id number], [address] [place], [place] [id number], [phone] cephalexin (Keflex 500 mg Cap) 1 Capsules [...] Follow up: With: Address: When: Alon Weber [facility] [facility], [place] [address] Business (1) In 3 days 02/02/2021 DIAGNOSIS: Acute UTINormalFisher Newton Medical CenterED Note-Physicianon 96-04-2676IS Note-Physician CD:[id number]:[id number]CvNjcrHbPEcmJa0rb8nsBH43xt9hEsMvWm 8+FfnwUQ9MYYtHQLFb [file] Y (more content not included)...NormalCleveland Clinic South Pointe HospitalComment on above:Result Comment: Electronically Signed By: Joshua Hollingsworth DO.br\Date and Time Signed: 01/30/21 23:39 EDTED Patient Education Noteon 85-99-8416JW Patient Education NoteObstetrics and Gynecology Urinary Tract Infection, Adult A urinary tract infection (UTI) is an infection of any part of the urinary tract. The urinary tractincludes the kidneys, ureters, bladder, and urethra. These organs make, store, and get rid of urinein the body. Your health care provider may [...] this condition includes: ? Antibiotic medicine. ? Pxng-wrj-nrzdggo medicines to treat discomfort. ? Drinking enough water to stay hydrated. If you have frequent infections or have other conditions such as a kidney stone, you may need to see a health care provider who specializes in the urinary tract (urologist). In rare cases, urinary tract infections can cause sepsis. Sepsis is a life- threatening condition that occurs when the body responds to an infection. Sepsis is treated in the hospital with IV antibiotics, fluids, and other medicines. Follow these instructions at home: Medicines ? Take dpgj-uyp-yoopyyw and prescription medicines only as told by [...] in your genital area, around the entrance toyour urinary tract (urethra). ? Treatment for this condition often includes antibiotic medicines. ? If you were prescribed an antibiotic medicine, take it as told by your health care provider. Do not stop using the antibiotic even if you start to feel better. ? Keep all follow-up visits as told by your health care provider. This is important. This in (more content not included)...[facility] Patient Summaryon 19-30-8482HM Patient Summary [place] [id number] Patient Discharge Instructions Person Information Name: RAJIV TOVAR Age: 25 Years Arrival Date: 01/30/2021 20:17:08 Discharge Diagnosis: Acute UTI Primary Care Physician: Alon Weber MD Provider Information Primary Provider: Joshua Hollingsworth DO Advanced Blindstitch Hemmer:None The exam and treatment you received in the Emergency Department were for an urgent problem and are not intended as complete care. It is important that you follow up with a doctor, nurse practitioner,or physician?s family readiness support assistant for ongoing care. If your symptoms [...] Follow-up Instructions: With: Address: When: Alon Gus [address] [place] [address], [place] [address] Business (1) In 3 days 02/02/2021 In the event that this physician does not participate in your insurance network, please consult with your insurance company to find a nearby participating provider. Patient Education Materials: Urinary Tract Infection, Adult A MESSAGE TO ALL PATIENTS REGARDING OPIOIDS PRESCRIPTION OPIOIDS: WHAT YOU NEED TO KNOW Prescription opioids can be used to help relieve lrlmujtx-vs-mghspt pain and are often prescribed following a [...] and have fewer risks and side effects. Optionsmay include: ? Pain relievers such as acetaminophen, [...] unused prescription opioids: Find your community drug take- back program or [employer] mail-back program, or flush them down the toilet, following guidance from the Food and Drug Administration (www.fda.gov/Drugs/ResourcesForYou). ? Visit www.cdc.gov/drugoverdose to learn about the risks of opioids abuse and overdose. ? If you believe you may be struggling with addiction, tell your health team primary care physician and ask for guidance or call [facility]?S National Helpline at 8-458-848-KCDJ. z Source: [place] Department of Health a (more content not included)...NormalCleveland Clinic South Pointe HospitalUA With Cult Reflexon 14-13-4728Jscuzvpz LM Ql (Urine sed)1+ /HPFAbnormalTraceCleveland Clinic South Pointe HospitalComment on above:Performed By: #### 63975287, 9511322 ####[facility] [address] [place], [place] [address]Lwaxsjhrf Ql (U)NegativeNormalNegativeCleveland Clinic South Pointe HospitalComment on above:Performed By: #### 23598759, 2102379 ####[facility] [address] [place], [place] [address]Ffwvmvu (U)CLOUDY AbnormalClearFisher University Of Maryland Medical CenterComment on above:Performed By: #### 06920522, 3847180 ####[facility] [address] [place], [place] [address]Zivtn (U)YELLOWNormalYellowCleveland Clinic South Pointe Hospital Comment on above:Performed By: #### 53411427, 9957459 ####[facility] [address] [place], [place] [address]Qkylzxcx LM Ql (Urine sed) PresentNormRegional Medical CenterComment on above:Performed By: #### 77739476, 0617952 ####[address] [address]Vvrfhzegnp cells.squamous LM.HPF (Urine sed) [#/Area]0-2 Normal0-2FOhioHealth Nelsonville Health CenterComment on above:Performed By: #### 81409659, 7150487 ####[address] [address]Ilxvsel Test strip (U) [Mass/Vol]NegativeNormalNegative [facility] HospitalComment on above:Performed By: #### 02844462, 0627089 ####[address] [address] Hemoglobin Ql (U)TRACEAbnormalNegativeCleveland Clinic South Pointe HospitalComment on above:Performed By: #### 36975104, 8769950 ####[address] [address]Fnkivnt (U) [Mass/Vol]NegativeNormal NegativeCleveland Clinic South Pointe HospitalComment on above:Performed By: #### 83194410, 9410031 ####[address] [address]Qbxmimw.plasma/[place].RBC (Bld) [Mass ratio]4-3Dloduo3-7BamcwxOhioHealth Nelsonville Health CenterComment on above:Performed By: #### 04598694, 1365159 ####[address] [address]Ehaie Ql (Urine sed)TRACENormalCleveland Clinic South Pointe HospitalComment on above:Performed By: #### 20427224, 7992675 ####[address] [address]Llkwlkb Ql (U)PositiveAbnormalNegativeCleveland Clinic South Pointe HospitalComment on above:Performed By: #### 25490319, 0052773 ####[address] [address]vI (U)7.5 [pH]Invalid Interpretation Code5.0-9.0[facility] Pointe HospitalComment on above:Performed By: #### 53718851, 6614033 ####[address] [address]Nlnhpuk (U) [Mass/Vol]NegativeNormalNegativeCleveland Clinic South Pointe HospitalComment on above:Performed By: #### 85805384, 2315449 ####[address] [address] Specific gravity (U) [Rel density]1.020Invalid Interpretation Code1.005-1.030 [facility] HospitalComment on above:Performed By: #### 69136773, 3674495 ####[address] [address]Fpdq of Urine collection methodClean CatchNormRegional Medical CenterComment on above:Performed By: #### 28778383, 0105825 ####[address] [address]Qgorpqqzpcbg Qn (U)0.2 {Arnie'U}/dL Normal0.0-1.0[facility] Pointe HospitalComment on above:Performed By: #### 19616378, 5345508 ####[address] [address]GKE Auto Ql (U)1+AbnormalNegativeCleveland Clinic South Pointe Hospital Comment on above:Performed By: #### 21654282, 7938526 ####[address] [address]NML LM.HPF (Urine sed) [#/Area]4-53Lizjoemo7-5GwlpttOhioHealth Nelsonville Health CenterComment on above:Performed By: #### 48880841, 1112550 ####[address] [address]Ogvo Diffon 92-65-3016Bugljcvww/100 WBC (Bld)0.4 %Normal 0.0-2.0[facility] Pointe HospitalComment on above:Order Comment: Order Added by Discern Expert.Performed By: #### 0217702, 6929005, 6611299, 13077313, 9815090, 90613909, 5182840 ####[address] [address]Gdtpjeoqp/Leukocytes Auto (Bld) [Pure # fraction]0.0 E9/L Normal0.0-0.2FOhioHealth Nelsonville Health CenterComment on above:Order Comment: Order Added by Discern Expert.Performed By: #### 2178713, 1987155, 8893895, 46382837, 0453763, 42985744, 2026524 ####[address] [address]Krvhfvddoef/100 WBC (Bld)1.4 %Normal0.0-8.0[facility] HospitalComment on above:Order Comment: Order Added by Discern Expert. Performed By: #### 8879696, 5563313, 7864430, 27444134, 2760671, 09335505, 4680457 ####[address] [address]Pwqvidhpkyu/Leukocytes Auto (Bld) [Pure # fraction]0.1 E9/LNormal0.0-0.5 [facility] HospitalComment on above:Order Comment: Order Added by Discern Expert.Performed By: #### 7661653, 1321480, 2601603, 63592247, 2991562, 04723974, 8823647 ####[address] [address]Wobaptvunfs/100 WBC (Bld)23.7 %Hwnuqd74.0-50.0[facility] HospitalComment on above:Order Comment: Order Added by Discern Expert. Performed By: #### 4844312, 8271914, 2541067, 30797646, 1253809, 47150633, 2795418 ####[address] [address]Hfwynyqcjnk/Leukocytes Auto (Bld) [Pure # fraction]1.9 E9/LNormal1.0-4.0 [facility] HospitalComment on above:Order Comment: Order Added by Discern Expert.Performed By: #### 7636892, 2361942, 0251636, 94210128, 4692696, 28370805, 1001536 ####[address] [address]Rnpwyxinw/100 WBC (Bld)6.2 %Normal4.0-14.0[facility] HospitalComment on above:Order Comment: Order Added by Discern Expert. Performed By: #### 1869470, 0591911, 6113119, 24624412, 8103344, 26631678, 5285656 ####[address] [address]Niizieywu/Leukocytes Auto (Bld) [Pure # fraction]0.5 E9/LNormal0.2-1.0 [facility] HospitalComment on above:Order Comment: Order Added by Discern Expert.Performed By: #### 6401153, 2153964, 5754766, 39051941, 7789634, 24803167, 3991670 ####[address] [address]Khfwxdddnvl/100 WBC (Bld)68.3 %Qteueh49.0-75.0[facility] HospitalComment on above:Order Comment: Order Added by Discern Expert. Performed By: #### 2499411, 6792725, 5325303, 37401928, 2744778, 23884175, 6252930 ####[address] [address]Ipuxmsgmovd/Leukocytes Auto (Bld) [Pure # fraction]5.6 E9/LNormal2.0-7.5 [facility] HospitalComment on above:Order Comment: Order Added by Discern Expert.Performed By: #### 6652481, 0131266, 2658256, 90053367, 8016918, 37742584, 3686524 ####[facility] [address] [place], [place] [address]CCLcd 36-97-9267Rceubzc [Mass/Vol]9.0 mg/dLNormal8.9-11.1 [facility] HospitalComment on above:Performed By: #### 2285172, 7255915, 9648179, 45067633, 2826179, 05759707, 7466410 ####[facility] [address] [place] [address]Mmloephpxj [Mass/Vol]0.7 mg/dLNormal 0.5-1.3FOhioHealth Nelsonville Health CenterComment on above:Performed By: #### 9236333, 2657214, 6327255, 90789057, 1234267, 93921323, 8614273 ####[address] [address]Pbrc nitrogen [Mass/Vol]10 mg/dLNormal5-21[facility] HospitalComment on above:Performed By: #### 3262434, 3000452, 4477252, 47252461, 3703777, 83108794, 8695437 ####[address] [address]Vlzs nitrogen/Creatinine [Mass ratio]14 No CdquxMpzsax96-26ErckekCleveland Clinic South Pointe HospitalComment on above:Performed By: #### 6118656, 9511714, 3287597, 68201652, 9030207, 58378025, 1092417 ####[facility] [address] [place] [address]Rmjcl gap [Moles/Vol]12 mmol/LNormal6-16[facility] HospitalComment on above:Performed By: #### 0209032, 4849171, 4149499, 17934009, 5865901, 20850423, 6461344 ####[facility] [address] [place], [place] [address]Taupvnud [Moles/Vol]104 mmol/NTvjdfi001-342WkwvbiCleveland Clinic South Pointe HospitalComment on above:Performed By: #### 4036980, 6944699, 2609285, 14779306, 8224429, 81424808, 0905215 ####[address] [place], [place] [address]DD4 [Moles/Vol]25 mmol/TXeafgd11-24 [facility] HospitalComment on above:Performed By: #### 3847340, 2981122, 2926626, 82142890, 8981968, 55029871, 3723173 ####[address] [address]Jxefgac [Mass/Vol]93 mg/dLNormal 55-199[facility] HospitalComment on above:Result Comment: If this glucose result represents a fasting glucose, interpretation should refer tothe following reference range: 55-99 mg/dLPerformed By: #### 8539272, 8116514, 7962273, 87084152, 3685517, 68907813, 3302798 ####[address] [address]Uzvorcahf [Moles/Vol]3.8 mmol/LNormal 3.5-5.3FOhioHealth Nelsonville Health CenterComment on above:Performed By: #### 1778757, 3234924, 3343948, 42854004, 2716681, 64984140, 4113983 ####[address] [address]Kjyfrj [Moles/Vol]137 mmol/L Mcynad728-670EvinmiCleveland Clinic South Pointe HospitalComment on above:Performed By: #### 7056765, 9506444, 2958237, 13987019, 9062837, 97082688, 5205452 ####[address] [place], [place] [address]OSJ w/ Auto Diffon 64-37-7923Yncspvbwjdp distribution width (RBC) [Ratio]12.2 %Bzczli84.9-14.2 [facility] HospitalComment on above:Performed By: #### 8211467, 2422820, 2288979, 23676574, 5929506, 85394400, 2266230 ####[address] [address]Ioeyulnrks (Bld) [Volume fraction] 39.3 %Kgyrin24.0-46.0[facility] HospitalComment on above:Performed By: #### 5281799, 6280195, 2182570, 63064513, 2701636, 30707710, 6235501 ####[address] [address]Jqrxhtlvwk (Bld) [Mass/Vol]13.3 g/aZKnhszv35.0-16.0[facility] HospitalComment on above: Performed By: #### 2727229, 8203956, 5195455, 19675122, 9118680, 48551563, 6204155 ####Ananth [address] [address]XQK (RBC) [Entitic mass]31.3 ytZxudwq45.0-34.0[facility] Comment on above:Performed By: #### 9447513, 3395756, 9490994, 28418414, 9022175, 05227528, 1809930 ####[address] [address]SLCL (RBC) [Mass/Vol]34.0 g/mEJvadhf71.4-36.0[facility] HospitalComment on above:Performed By: #### 4210217, 3324226, 9833646, 04100177, 6529735, 33972696, 1151176 ####[address] [address]OLK (RBC) [Entitic vol]92.1 fLNormal 80.0-100.0[facility] HospitalComment on above:Performed By: #### 7203344, 1601462, 1131504, 41401847, 1125432, 12823172, 0607920 ####[address] [address] [place], [place] [address]Tcnvdvqt mean volume (Bld) [Entitic vol]9.2 fLNormal6.4-10.8[facility] HospitalComment on above:Performed By: #### 2364031, 0170406, 2499306, 66472923, 4478518, 40121518, 8870695 ####[address] [address]Lcynzhrxk (Bld) [#/Vol]214.0 E9/SVavmoq286.0-500.0[facility] HospitalComment on above:Performed By: #### 1179756, 7299341, 5107441, 70155869, 7660490, 69490290, 8333745 ####[address] [address]DZJ (Bld) [#/Vol]4.3 E12/LNormal4.3-5.9[facility] HospitalComment on above:Performed By: #### 4075267, 8612570, 9271690, 57099789, 0553151, 39891657, 0926451 ####[address] [address]PUZ corrected for nucl RBC Auto (Bld) [#/Vol]8.2 E9/LNormal 4.0-11.0[facility] HospitalComment on above:Performed By: #### 4374787, 1763095, 7429260, 77055595, 0887776, 18374912, 9568046 ####[address] [address]Nukejmm for Treatmenton 42-11-3430Wdydysv for Treatment [id number]#1.00CD:127NormalCleveland Clinic South Pointe HospitalHep Func Panelon 29-06-1788Motlfyi [Mass/Vol]4.0 g/dLNormal3.3-5.0[facility] HospitalComment on above:Performed By: #### 0521267, 9449413, 3199361, 99641714, 6875054, 59677104, 7407889 #### [facility] [address] [place] [address]Aeyzvii/Globulin (S) [Mass conc ratio]1.3Kmbpfm1.1-2.2FOhioHealth Nelsonville Health CenterComment on above:Performed By: #### 3047021, 9342055, 4827757, 17542611, 0506160, 66856306, 7716026 #### [facility] [address] [place] [address]EVJ [Catalytic activity/Vol]44 Int._Unit/ZQxrcvc07-34AvilhjCleveland Clinic South Pointe HospitalComment on above:Performed By: #### 6404527, 2531170, 2027242, 17118502, 3835943, 48093214, 8467083 #### [facility] [address] [place] [address]OAP No additional P-5'-P [Catalytic activity/Vol]20 Int._Unit/L Normal6-46[facility] HospitalComment on above:Performed By: #### 9292786, 5418306, 1079924, 53552905, 3916265, 09074920, 9542842 #### [facility] [address] [place] [address]XXO [Catalytic activity/Vol]16 Int._Unit/LNormal5-43[facility] HospitalComment on above:Performed By: #### 6102393, 1510047, 3100293, 31160472, 4350817, 37501324, 0088193 #### [facility] [address] [place] [address]Dlhtfuwsx [Mass/Vol]1.1 mg/dLNormal0.0-1.1FOhioHealth Nelsonville Health CenterComment on above:Performed By: #### 2961516, 2532283, 8859578, 24776189, 9855690, 02254819, 1191563 #### [facility] [address] [place], [place] [address]Ujmubfjpp.direct [Mass/Vol]0.2 mg/dLNormal0.1-0.4FOhioHealth Nelsonville Health CenterComment on above:Performed By: #### 0701324, 0062461, 6247391, 96077331, 4920627, 96591246, 0559888 #### [facility] [address] [place] [address]Mgobomhin.indirect [Mass or moles/Vol]0.9 mg/dLNormal0.1-0.9 [facility] HospitalComment on above:Performed By: #### 7597055, 0807151, 7195994, 46839344, 2213595, 46413396, 9481619 #### [facility] [address] [place] [address]Sgpahjfo (S) [Mass/Vol]2.6 g/dLNormal1.4-4.0[facility] HospitalComment on above:Performed By: #### 9584057, 0119107, 5983126, 87624151, 9100729, 15652257, 5513037 #### [facility] [address] [place] [address]Lispenk [Mass/Vol]6.6 g/dLNormal6.0-7.8[facility] HospitalComment on above:Performed By: #### 7563259, 6748203, 5319048, 99700308, 9620088, 69140183, 0412611 #### [facility] [address] [place] [address]Ndgbqx Levelon 16-76-6302Ahcnnh [Catalytic activity/Vol]32 U/L Hdoctn52-35OmenggCleveland Clinic South Pointe HospitalComment on above:Performed By: #### 8660966, 7946296, 2942666, 92283660, 8533246, 62317083, 5713161 #### [facility] [address] [place] [address]xFLZst 90-84-5196AHM/1.73 sq M.predicted among blacks MDRD (S/P/Bld) [Vol rate/Area]mL/min/{1.73_m2}Normal>=59[facility] Comment on above:Order Comment: Order added by Discern Expert.Result Comment: eGFR is race adjusted. AA=.Performed By: #### 9963661, 0970450, 5896853, 47176086, 1855422, 72448077, 5176683 #### [facility] [address] [place], [place] [address]VJS/1.73 sq M.predicted among non-blacks MDRD (S/P/Bld) [Vol rate/Area]mL/min/{1.73_m2}Normal>=59[facility] HospitalComment on above: Order Comment: Order added by Discern Expert.Result Comment: Chronic kidney disease could be indicated at eGFR's of less than 60 mL/min/1.73m2. Kidney failure is indicated at less than 15 mL/min/1.73m2.Performed By: #### 5864050, 9738950, 0088443, 03715627, 3880162, 13883139, 6761559 #### [facility] [address] [place], [place] [address]Bqlvjarz Letteron 82-40-9767Hnuqphqx Letter June 03, 2020 To Whom It May Concern, Rajiv has been under my care and had a lap choly on 05/10/2020. She was seen post operatively on 05/23/2020 and was healing well. Rajiv is released to work on 06/06/2020 with no restrictions. Please call the office at [phone] with any questions/ concerns. Sincerely, Dr. Aiden Izquierdo faxed to [facility] to [phone] Carmel Health SystemAmbulatory Clinical Summaryon 59-02-5654Mkdiekusil Clinical Summary {69-ge-30-y2-m6-1a-52-mu-l7-79-5j-13-b1-48-bf-46}CD:285859ThtbspBhslryMount Carmel Health SystemGeneral Surgery Office/Clinic Noteon 34-83-6706Rshfwyo Surgery Office/Clinic NoteHistory of Present Illness lap choly 05/10/2020. Complains [...] Information Aiden IZQUIERDO MD Only if needed [address] [place] [address] AVE [address] [place] [address]- Additional Instructions: F/U PRN Problem List/Past Medical History Ongoing Depression Historical No qualifying data Procedure/Surgical History Laparoscopic cholecystectomy (05/10/2020), EGD (esophagogastroduodenoscopy) gastric outlet reduction (04/29/2020), section (07/23/2019), Ankle, [...] Cigarettes, 04/19/2020 Family History Family history is negativeHolzer Medical Center – JacksonComment on above: Result Comment: Electronically Signed By: Aiden IZQUIERDO MD\.br\Date and Time Signed: 05/23/20 10:17 EST\.br\Electronically Co-Signed By: Mildred Cook MA\.br\Date and Time Co-Signed: 05/23/20 09:55 ESTIntraOperative Documentson 78-38-4440VcvbvCgnjzwgeq Documents [id number]#1.00CD:127NoMount Carmel Health SystemAmbulatory Clinical Summaryon 06-06-7530Mzojepccon Clinical Summary {11-4o-m0-3f-z4-7l-2p-88-f4-4z-dx-m6-76-df-f8-b9}CD:958717TuwkfzYzbgvfCleveland Clinic South Pointe HospitalGastroenterology Office/Clinic Noteon 79-43-0832Nqzzyciekqaldvhx Office/Clinic NoteChief Complaint f/u EGD HPI Staff This is a 25 year old female who presents today for a follow up to EGD. History of Present Illness 24 years old white female with no significant past medical history except for anxiety, referred to me from [facility], ER to be evaluated for right upper quadrant abdominal pain, she reports right upper quadrant abdominal pain, started 6 weeks ago, sporadic, moderate in nature except for the lasttime when it was severe for which she went to [facility], she had normal CBC, CMP and lipase,ultrasound revealed a 7 mm lesion in the gallbladder(nonshadowing stones versus polyp), discharge home with Bentyl, reports no fever chills, no diarrhea, constipation or rectal bleeding, reports mildnausea but no heartburn, no dysphagia, she has [...] no Constipation noGI bleeding no abd pain nodysphagia no bloating no heartburn Genitourinary: no dysuria, [...] rubs, murmurs or gallop. Peripheral: no edema Gastrointestinal/Abdomen: Abdomen: normal consistency and bowel sounds; no [...] Ezequiel MARTINEZ MD Only if needed [facility] [address] [place] [address]- Additional Instructions: Patient Education Cholelithiasis Problem List/Past Medical History Ongoing Depression Historical No qualifying data Procedure/Surgical History Laparoscopic cholecystectomy (05/10/2020), EGD (esophagogastroduodenoscopy) gastric outlet reduction (04/29/2020), section (07/23/2019), Ankle, [...] [2] 07 Surgical Pathology Report; 04/29/2020 10:57 [facility]Comment [facility]:Result Comment: Electronically Signed By: Ezequiel MARTINEZ MD\.br\Date and Time Signed: 05/16/20 13:22 ESTPatient Educationon 05-16-2020 Patient EducationFamily Medicine Cholelithiasis Cholelithiasis (also called gallstones ) is a form of gallbladder disease where gallstones form in your gallbladder. The gallbladder is a non-essential organ that stores bile made in the liver, whichhelps digest fats. Gallstones begin as small crystals [...] required. HOME CARE INSTRUCTIONS ? Only take tzrj-fak-rautiap or prescription medicines for pain, discomfort, or [...] Document Reviewed: 08/09/2011 ExitCare? Patient Information ?2013 [employer].[facility] – JacksonCoding Summary.on 80-55-4896Tlotsm Summary.CODING DATE: 05/13/2020 FINAL [facility] STATUS: Home (Routine DC) PAYOR: Reba APC DESCRIPTION 5361 Level 1 Laparoscopy and Related Services ADMIT DX: REASON FOR VISIT DX: K81.1 Chronic cholecystitis FINAL DX: PRINCIPAL: K81.1 Chronic cholecystitis SECONDARY: K82.8 Other specified diseases of gallbladder F41.9 Anxiety disorder, unspecified PYMT PROC APC STAT DESCRIPTION DOCTOR NAME DATE 66625 5361 J1 Laparoscopy, surgical; Aiden IZQUIERDO MD 05/10/2020 cholecystectomy with cholangiography 64077 Anesthesia for Bakari Husain Jr, DO 05/10/2020 intraperitoneal procedures in upper abdomen including laparoscopy; not otherwise specified NOTE: The code number assigned matches the documented diagnosis and / or procedure in the patient's chart. However, the narrative phrase printed from the coding software may appear abbreviated, or result in slightly different terminology. Revised Coded By: Eugenia Mae Revised Date Saved: 05/13/2020 02:09 pmNTriHealth McCullough-Hyde Memorial HospitalMain OR Intraoperative Recordon 00-99-8725Srvq OR Intraoperative RecordIntraOp Document Type FT Summary Primary Physician: Aiden IZQUIERDO MD Finalized Date/Time: 05/13/20 11:07:53 Pt. Name: RAJIV TOVAR/Sex: 1995 Female Med Rec #: [id number] Physician: Aiden IZQUIERDO MD Financial #: [id number] Pt. Type: A Room/Bed: AS06/24 Admit/Disch: 05/10/20 07:43:57 - 05/10/20 15:00:00 Institution: Case Times FT Entry 1 Patient Times In Room 05/10/20 09:29:00 Out Room 05/10/20 10:27:00 Procedure Times Start 05/10/20 09:44:00 Stop 05/10/20 10:20:00 Anesthesia Times Start 05/10/20 09:29:00 Stop 05/10/20 10:27:00 Last Modified By: London TURNER, My Cummings 05/10/20 10:27:42 General Comments: 1011- ground control approach technician called dr. guo read xray dilated tapers distally can't exclude small stonepossible spasm , Dr. Izquierdo stated understanding. - joan turner 05/13/2020 Chart opened to review and send charges. Angela Leavitt LARRY CAR OPERATOR. Case Attendance FT Entry 1 Entry 2 Entry 3 Case Attendee Ankit AGUILAR, Linnea IZQUIERDO MD, Aiden ARAUJO MD, Ramandeep Cummings Role Performed Anesthesiologist Surgeon - Primary Surgeon - Assist 1 Cosmetic Chemist Time In 05/10/20 09:29:00 05/10/20 09:40:00 05/10/20 [...] TURNER, My Villalba RN, Bernadette Ortiz Cert. Tyre Retreader, Arlette Davila Role Performed Residential Property Manager - Primary Scrub - Primary Scrub - Primary Time In 05/10/20 09:29:00 05/10/20 09:29:00 05/10/20 09:29:00 Time Out 05/10/20 10:27:00 05/10/20 10:27:00 05/10/20 10:27:00 Procedure CHOLECYSTECTOMY CHOLECYSTECTOMY CHOLECYSTECTOMY LAPAROSCOPIC W/ LAPAROSCOPIC W/ LAPAROSCOPIC W/ CHOLANGI(.) CHOLANGI(.) CHOLANGI(.) Comments ORIENTATION ORIENTATION Last Modified By: London TURNER, My Callahan RN, My Rubio RN 05/10/20 10:27:43 05/10/20 10:27:43 05/10/20 10:27:43 Entry 7 Entry 8 Case Attendee Carlos MCLEAN, Kim Kaufman RT(R), Magalie R Role Performed Scrub - Primary Bridge Painter Helper Time In 05/10/20 09:29:00 05/10/20 10:00:00 Time Out 05/10/20 10:27:00 05/10/20 10:03:00 Procedure CHOLECYSTECTOMY CHOLECYSTECTOMY LAPAROSCOPIC W/ LAPAROSCOPIC W/ CHOLANGI(.) CHOLANGI(.) Comments Last Modified By: London TURNER, My Rubio RN 05/10/20 10:27:43 05/10/20 10:27:43 Perioperative Protocols FT [...] Bray RN, Deejay Chowdhury RN, Angel Oglesby Tyre Retreader, Carlos Rock CST, Macie C Time Out [...] Last Modified By: Artemio (more content not included)...[facility] – JacksonPostoperative Documentson 93-68-9843Eldvtqispufak Documents [id number]#1.00CD:127NormRegional Medical CenterProgress Note-Physicianon 90-89-0679Lwsprser Note-PhysicianPatient: RAJIV TOVAR Age: 25 years Sex: Female : 1995 Associated Diagnoses: None Author: Bakari Husain Jr, DO Preoperative Information Time patient last ate or drank:=== (npo 8 hours) Anesthesia history: Patient history: No prior anesthesia problems. Re-evaluation prior to induction: Completed, Initial evaluation reviewed. Review of Systems Respiratory: No shortness of breath. Cardiovascular: No chest pain. Hematology/Lymphatics: No bruising tendency, No bleeding tendency. Health [...] 10 tab(s), Refills(s) 0, Pharmacy: [facility]/pharmacy #[id number], 168, cm, 04/19/20 6:20:00 EDT, Height/Length Dosing, 58.5, kg, 04/19/20 6:20:00 EDT, Weight Dosing omeprazole 40 mg Cap-DR: 40 mg = 1 cap(s), Oral, Daily, # 30 cap(s), Refills(s) 2, Pharmacy: [facility]/pharmacy #[id number], 168, cm, 04/20/20 10:06:00 EDT, Height/Length Dosing, 59.5, kg, 04/20/20 10:06:00 EDT,Weight Dosing Documented Medications Documented desvenlafaxine 100 mg Tab-: 100 mg = 1 tab(s), Oral, Daily, Refills(s) 0, Depression Problem list: All Problems Biliary dyskinesia / SNOMED CT 622349832 / Confirmed Depression / SNOMED CT 29346604 / Confirmed Histories Past Medical History: No active or resolved past medical history items have been selected or recorded. Family History: Entire family history is negative. Procedure history: EGD (esophagogastroduodenoscopy) gastric outlet reduction (0167524104) on 04/29/2020 at 25 Years. section (57278891) on 07/23/2019 at 24 Years. Sinus (0643793807). Nasal cautery (008285889). Ankle (6512743). Comments: 05/10/2020 8:24 EST - Kluding LEAD SQL DEVELOPER, Bernarda Bilateral ankle stabilazation for flat feet Diagnostic laparoscopy (024561412). Comments: 05/10/2020 8:26 EST - Kluding LEAD SQL DEVELOPER, Bernarda ovarian cyst drained Social History Social [...] 05/10/2020 10:15 EST Heart (more content not included)...[facility] – JacksonComment on above:Result Comment: Electronically Signed By: Bakari Husain Jr, DO\.br\Date and Time Signed: 05/13/20 13:23 ESTProgress Note-PhysicianPatient: RAJIV TOVAR Age: 25 years Sex: Female : 1995 Associated Diagnoses: None Author: Bakari Husain Jr, DO Postoperative Information Post Operative Note: Post Anesthesia Care Unit. Anesthetic utilized: General. Health Status Allergies: Allergic Reactions (Selected) Severity Not Documented HYDROcodone- Hives. OxyCODONE- Hives. Penicillin- Hives. Problem list: All Problems Biliary dyskinesia / SNOMED CT 530064051 / Confirmed Depression / SNOMED CT 97439140 / Confirmed Physical Examination Vital Signs 05/10/2020 [...] 05/10/2020 8:11 EST Apic (more content not included)...[facility] – JacksonComment on above:Result Comment: Electronically Signed By: Bakari Husain Jr, DO\.br\Date and Time Signed: 05/13/20 13:20 ESTCoding Summary.on 48-39-8424Ssomrz Summary.CODING DATE: 05/12/2020 FINAL [facility] DSC STATUS: Home (Routine DC) PAYOR: [place] ADMIT DX: REASON FOR VISIT DX: [...] Linda Jaquez CphT Date Saved: 05/12/2020 09:53 pmNormalCleveland Clinic South Pointe HospitalConsent for Anesthesiaon 03-58-2326Vcfirll for Anesthesia [id number]#1.00CD:127NormalCleveland Clinic South Pointe HospitalDischarge Instructionson 48-91-2807Agrowyset Instructions [id number]#1.00CD:127NoGem [facility] Medical CenterIntraOperative Documentson 84-44-5631GrpxqZmdycpbok Documents [id number]#1.00CD:127NoGem [facility] Medical CenterOperative Reporton 43-55-4958Uviomnfck ReportDate of Surgery: 05/10/2020 SURGEON: Aiden Izquierdo MD, FACS MAPPING PILOT: Ramandeep Araujo MD, FACS PREOPERATIVE DIAGNOSIS: Chronic cholecystitis POSTOPERATIVE DIAGNOSIS: Chronic cholecystitis, pending pathology OPERATION: Laparoscopic cholecystectomy with intraoperative cholangiogram ANESTHESIA: General with local ANESTHESIOLOGIST: Bakari Husain Jr., D.O. INDICATIONS: This is a 25 year old white female who presents with complaints of right upper quadrant biliary pain. Gastrointestinal workup did not reveal any significant abnormalities including a normal esophagogastroduodenoscopy. Gallbladder ultrasound showed evidence of either a [...] Aiden Izquierdo MD, FACS lkr Dictated: 05/10/2020 #[id number] Typed: 05/10/2020 #[id number] cc: Alon Weber M.D. Aiden Izquierdo MD, Regional Medical CenterComment on above: Result Comment: Electronically Signed By: TIMBO POLK, Aiden Du\Date and Time Signed: 05/11/20 08:04 ESTPreoperative Documentson 14-64-4788Rprwhowcihqj [id number]#1.00CD:[address] [place], [place] [address]Preoperative Documents [id number]:127[facility] – JacksonConsent for Treatmenton 33-87-4002Oulbmqs for Treatment [id number]#1.00CD:127NormalCleveland Clinic South Pointe HospitalInpatient Patient Summaryon 27-75-4686Sobefqkdu Patient Summary [address] [address] [facility] Clinical Discharge Instructions PERSON INFORMATION Name: RAJIV TOVAR PHYSICIANS Admitting Physician: Aiden IZQUIERDO MD Attending Physician: Aiden IZQUIERDO MD PCP: Gus POLK, Alon Discharge Diagnosis: Chronic cholecystitis with calculus Comment: PATIENT EDUCATION INFORMATION Instructions: Post Op Patient Instructions - MANFRED (CUSTOM); How to Use an Incentive Spirometer; Timbo - Post Op Instructions (CUSTOM) Medication Leaflets: Follow up: With: Address: When: Aiden IZQUIERDO [address] [place] [address], [address] [place] [phone] [facility] () Within 7 to 10 days Comments: Call for any problems. Call for followup appointment Type Location Start [facility] Follow Up [facility] 05/16/2020 1:00 PM 05/16/2020 1:15 PM Confirmed MEDICATION LIST Medications to Continue with No Changes Other Medications desvenlafaxine (desvenlafaxine 100 mg Tab-) 1 Tablets By Mouth every day. omeprazole (omeprazole 40 mg Cap-DR) 1 Capsules By Mouth every day. Refills: 2. ondansetron (Zofran ODT 4 mg Tab) 1 Tablets By Mouth 3 times a day. Refills: 0. Comment:[facility] JacksonIntraOperative Documentson 05-10-2020 IntraOperative [id number]#1.00CD:127 [facility] PACU I Recordon 84-85-2336Wxly OR PACU I RecordPACU Phase I Document Type FT Summary Primary Physician: Aiden IZQUIERDO MD Finalized Date/Time: 05/10/20 11:13:04 Pt. Name: RAJIV TOVAR Pilar/Sex: 1995 Female Med Rec #: [id number] Physician: Aiden IZQUIERDO MD Financial #: [id number] Pt. Type: A Room/Bed: [facility] Admit/Disch: 05/10/20 07:43:57 - Institution: Case [...] individualized perioperative plan of care The patient's rightto privacy is maintained The patient's value system, [...] with or improved from baseline levels established preoperativelyThe patient's cardiovascular status is consistent with or improved from baseline levels established preoperatively The patient's cardiovascular status is consistent with or improved from baseline levels established preoperatively The patient demonstrates and/or reports adequate pain control throughout the perioperative period The patient received appropriate medication(s), safely administered during the perioperativeperiod Acuity Level PACU I FT Entry 1 Start Time 05/10/20 10:28:00 Stop Time 05/10/20 10:58:00 Acuity Level Acuity Level I Last Modified By: Belkys Yarbrough RN 05/10/20 11:13:03 Finalized By: Belkys Yarbrough RN Document Signatures Signed By: Belkys Yarbrough RN 05/10/20 11:13NoavachapoCleveland Clinic South Pointe HospitalMain OR PACU II Recordon 09-71-8516Aktz OR PACU II RecordPACU Phase II Document Type FT Summary Primary Physician: Aiden IZQUIERDO MD Finalized Date/Time: 05/10/20 15:45:07 Pt. Name: GUYRAJIV/Sex: 1995 Female Med Rec #: [id number] Physician: Aiden IZQUIERDO MD Financial #: [id number] Pt. Type: A Room/Bed: Admit/Disch: 05/10/20 07:43:57 [...] and monitors body temperature Evaluates postoperative respiratory statusEvaluates postoperative cardiac status Evaluates postoperative neurological status Assesses pain control, collaborated in initiating patient-controlled analgesia and implements alternative methods of pain control Verifiesallergies, administers prescribed medications and solutions, evaluates response to medications Entry 1 In PACU II 05/10/20 11:00:00 Discharge from PACU 05/10/20 15:00:00 II Outcomes Met? Yes Last Modified By: Marcelina Cadet RN 05/10/20 15:45:06 Post-Care Text: The patient demonstrates knowledge of the expected response to the operative or invasive procedure The patient's care is consistent with the individualized perioperative plan of care The patient's rightto privacy is maintained The patient's value system, [...] with or improved from baseline levels established preoperativelyThe patient's cardiovascular status is consistent with or improved from baseline levels established preoperatively The patient's neurological status is consistent with or improved from baseline levels established preoperatively The patient demonstrates and/or reports adequate pain control throughout the perioperative period The patient received appropriate medication(s), safely administered during the perioperativeperiod Finalized By: Marcelina Cadet RN Document Signatures Signed By: Marcelina Cadet RN 05/10/20 15:45NoMount Carmel Health SystemMain OR Preoperative Recordon 66-47-5117Ywgk OR Preoperative RecordPreOp Document Type FT Summary Primary Physician: Aiden IZQUIERDO MD Finalized Date/Time: 05/10/20 10:00:50 Pt. Name: RAJIV TOVAR/Sex: 1995 Female Med Rec #: [id number] Physician: Aiden IZQUIERDO MD Financial #: [id number] Pt. Type: A Room/Bed: [place] [address] Admit/Disch: 05/10/20 07:43:57 - Institution: Case Times [...] Signatures Signed By: My Callahan RN 05/10/20 10:00NoMount Carmel Health SystemMonitor Recordon 11-16-1844Ojerwdl [id number]#1.00CD:127 [facility] Surgery Discharge Instructionon 22-64-9366Xikurqagsz Surgery Discharge Instruction [address] [address] Patient Discharge Instructions PERSON INFORMATION Name: RAJIV [...] TOVAR, have received the attached patient education materials/instructions and have verbalized understanding: May we do a follow up call? Yes No I was present when discharge instructions were given Patient Signature Date Clinican/Nurse Signature Date Follow up: With: Address: When: Aiden IZQUIERDO [address] [place] [address], [address] [phone] Business (1) Within 7 to 10 days Comments: Call for any problems. Call for followup appointment Type Location Start [facility] Follow Up [facility] 05/16/2020 1:00 PM 05/16/2020 1:15 PM Confirmed Pharmacy Information: Thank you for choosing [facility] HERE ARE THE MEDICATION CHANGES [...] mouth, causing the piston or the ball torise toward the top of the chamber. 6. Hold your breath for 3?5 seconds, or for as long as possible. ? If the spirometer includes a job coaching indicator, use this to guide you in [...] so that you do not get dizzy orlight-headed. ? Do this every 1?2 hours when [...] to reduce pain from co (more content notincluded)...[facility] JacksonPatient Education - Texton 38-70-4344Xswawga Education - Text Pulmonary Medicine How To [...] mouth, causing the piston or the ball torise toward the top of the chamber. 6. Hold your breath for 3?5 seconds, or for as long as possible. ? If the spirometer includes a job coaching indicator, use this to guide you in [...] so that you do not get dizzy orlight-headed. ? Do this every 1?2 hours when [...] provider says it is okay to stop usingit. If you have been in the hospital, [...] to take long, deep breaths to keep yourlungs clear and active. ? You may be [...] or abdomen, place a pillow or a rolled- up towel firmly against your incision when you cough. This will help to reduce pain. This information is not intended to replace advice given to you by your health care provider. Make sure you discuss any questions you have with your health care provider. Document Released: 10/21/2007 Document Revised: 07/03/2018 Document Reviewed: 04/23/2018 [employer] Patient Education ? 2019 [employer]. [place], [place] Aiden Izquierdo MD, FACS POST OPERATIVE INSTRUCTIONS Regardless of how big or small the surgery you have had, your body and the wound(s) require time toheal. Please use common sense and limit your [...] to air, or r (more content not included)...NormalFishR [facility] Shock Trauma CenterProgress Note-Physicianon 39-57-9905Kqexefay Note-PhysicianPatient: RAJIV TOVAR Age: 25 years Sex: Female : 1995 Associated Diagnoses: None Author: Aiden IZQUIERDO MD Postoperative Information Date/ Time: 05/10/2020 10:26:00 Preoperative Diagnosis: Chronic cholecystitis with calculus (QLW28-SD K80.10, Working, Medical). Postoperative Diagnosis: Same pending pathology. Procedure: Laparoscopic Cholecystectomy with intraoperative chloangiogram. Performed by: Aiden Izquierdo MD. Cosmetic Chemist: Ramandeep Araujo MD. Specimens Removed: Gallbladder. Estimated Blood Loss: 5 ml. Complications: None.[facility] JacksonComment on above:Result Comment: Electronically Signed By: Aiden IZQUIERDO MD\.br\Date and Time Signed: 05/10/20 10:27 ESTProgress Note-PhysicianPatient: RAJIV TOVAR Age: 25 years Sex: Female : 1995 Associated Diagnoses: None Author: Aiden IZQUIERDO MD Basic Information No change in History and PhysicalNormRegional Medical CenterComment on above:Result Comment: Electronically Signed By: Aiden IZQUIERDO MD\.br\Date and Time Signed: 05/10/20 09:11 ESTXR Cholangiogram in ORon 54-20-8196UK Cholangiogram in ORExam Date/Time: 05/10/2020 10:05 EST Reason for Exam: Cholelithiasis Report IMPRESSION: BILIARY DUCTAL DILATATION, DOWN TO A SEGMENT OF THE DISTAL MOST COMMON BILE DUCT, WHICH IS NARROWED. THE ETIOLOGY OF THIS IS NOT SPECIFICALLY DETERMINED. SPASM COULD ACCOUNT FOR THIS NARROWING, BUT TINY DISTAL CHOLEDOCHAL CALCULI (WITH SPASM) ARE ALSO POSSIBLE. CLINICAL HISTORY: Cholelithiasis. COMMENT: Limited xcvti-tb-nbbz C-arm images were obtained in the OR, [...] Comments Radiation Dose: Ka,r in mGy = 3.4NoMount Carmel Health SystemCoding Summary.on 83-43-7418Zabhjj Summary.CODING DATE: 05/07/2020 FINAL [facility] STATUS: Home (Routine DC) PAYOR: Reba [...] Linda Jaquez CphT Date Saved: 05/07/2020 10:24 [facility]CMC Healthcare SystemCoding Summary. on 08-49-0233Zfboyd Summary.CODING DATE: 05/05/2020 FINAL [facility] STATUS: Home (Routine DC) PAYOR: Reba APC DESCRIPTION 5301 Level 1 Upper GI Procedures ADMIT DX: REASON FOR VISIT DX: R10.13 Epigastric pain FINAL DX: PRINCIPAL: R10.13 Epigastric pain SECONDARY: R10.11 Right upper quadrant pain F41.9 Anxiety disorder, unspecified PYMT PROC APC STAT DESCRIPTION DOCTOR NAME DATE 61763 [id number] Ezequiel WEST MD 04/29/2020 phagogastroduodenoscopy, flexible, transoral; with biopsy, single or multiple 13540 Anesthesia for upper Husain Bakari Berry DO [...] Eugenia Mae Revised Date Saved: 05/05/2020 11:48 amNormalCleveland Clinic South Pointe HospitalConsent for Procedure/Surgeryon 02-88-7186Nqvmqkw for Procedure/Surgery [id number]#1.00CD:127NormalCleveland Clinic South Pointe HospitalFormson [id number]#1.00CD:127 NormalCleveland Clinic South Pointe HospitalPriority Order-Mitchell 01-27-0040Zeevpnur Order-STATCommentInvalid Interpretation [facility] HospitalComment on above:Result Comment: Received Performed at: [facility] [address] [place], [place] [id number] [facility] Johanny WilkinsMeetaformed By: #### [id number], SARS-CoV-2, MARY #### [facility] [address] [place] [address]BSTB-TdZ-6, NAAon 18-74-1472NAGQ-CoV-2 (COVID-19) RNA MARY+probe Ql (Resp)Not detectedInvalid Interpretation CodeNot DetectedCleveland Clinic South Pointe HospitalComment on above:Result Comment: This nucleic acid amplification test was developed and its performance characteristics determined by [employer]. Nucleic acid amplification tests include PCR and [...] in this assay. Performed at: [facility] [address] [facility] [place] [id number] MD Jacobson AnaghPerformed By: #### [id number], SARS-CoV-2, MARY #### [facility] [address] [place], [place] [address]K hCG Qualon 49-20-8459Nkag hCG QlNegativeNormalCleveland Clinic South Pointe HospitalComment on above:Performed By: #### [id number] #### [facility] [address] [place], [place] [address]VDB w/Indiceson 48-74-0083Kptxsercbfv distribution width (RBC) [Ratio]13.1 %Qsgnya75.9-14.2FOhioHealth Nelsonville Health CenterComment on above: Performed By: #### 5729954, 9365280 ####[facility] [address] [place], [place] [address]Otrjtmbijy (Bld) [Volume fraction] 40.5 %Tgkhkn49.0-46.0C[facility] Pointe HospitalComment on above:Performed By: #### 8577569, 6641148 ####[place] [address] [place], [place] [address]Edqpsmoqdy (Bld) [Mass/Vol]14.0 g/yNTglpmp77.0-16.0C[facility] Pointe HospitalComment on above:Performed By: #### 7289343, 7738595 ####[place] [address] [place], [place] [address]WHY (RBC) [Entitic mass]31.0 ohSnefir54.0-34.0[facility] HospitalComment on above:Performed By: #### 2929546, 8300957 ####[facility] [address] [place], [place] [address]IXJY (RBC) [Mass/Vol]34.6 g/dLNormal 31.4-36.0[facility] Pointe HospitalComment on above:Performed By: #### 8751157, 7091931 ####[address] [address]LTP (RBC) [Entitic vol]89.7 uJEemhra94.0-100.0[facility] Comment on above:Performed By: #### 6022740, 5946711 ####[address] [address]Opwluscu mean volume (Bld) [Entitic vol]9.1 fLNormal6.4-10.8C[facility] Pointe HospitalComment on above: Performed By: #### 2793606, 8646848 ####[address] [address]Tbbizboju (Bld) [#/Vol]245.0 E9/L Dwejnm004.0-500.0[facility] Pointe HospitalComment on above:Performed By: #### 8622638, 4210477 ####[address] [address]SCO (Bld) [#/Vol]4.5 E12/LNormal4.3-5.9[facility] Pointe HospitalComment on above:Performed By: #### 2256155, 6240151 ####[address] [address]YXR corrected for nucl RBC Auto (Bld) [#/Vol]5.6 E9/LNormal4.0-11.0[facility] Pointe HospitalComment on above:Performed By: #### 3308662, 9591332 ####[address] [address]Lxhxinh for Treatmenton 05-04-2020 Consent for [id number]#1.00CD:127Normal [facility] Pointe HospitalHep Func Panelon 22-44-7309Knswkay [Mass/Vol]4.2 g/dL Normal3.3-5.0[facility] Pointe HospitalComment on above:Order Comment: if not already done.Performed By: #### 8200549, 7109404 ####[address] [address]Dntzvfr/Globulin (S) [Mass conc ratio]1.2Ewcycx0.1-2.2FOhioHealth Nelsonville Health CenterComment on above:Order Comment: if not already done.Performed By: #### 6494373, 8545684 ####[address] [address]FAV [Catalytic activity/Vol] 112 Int._Unit/WMtaa93-08MlhmwuCleveland Clinic South Pointe HospitalComment on above:Order Comment: if not already done.Performed By: #### 9294473, 9177837 ####[address] [address]TAM No additional P-5'-P [Catalytic activity/Vol]129 Int._Unit/LHigh6-46C[facility] Pointe HospitalComment on above:Order Comment: if not already done.Performed By: #### 2748010, 1708945 ####[address] [address]FYD [Catalytic activity/Vol]28 Int._Unit/LNormal5-43C[facility] Pointe HospitalComment on above:Order Comment: if not already done. Performed By: #### 6345140, 0887727 ####[address] [address]Fitljznwm [Mass/Vol]0.7 mg/dLNormal 0.0-1.1FOhioHealth Nelsonville Health CenterComment on above:Order Comment: if not already done.Performed By: #### 2337163, 8653659 ####[address] [address]Ilfakcrkc.direct [Mass/Vol]0.1 mg/dL Normal0.1-0.4FOhioHealth Nelsonville Health CenterComment on above:Order Comment: if not already done.Performed By: #### 4811708, 0177230 ####[address], [place] [address]Iplazutkn.indirect [Mass or moles/Vol]0.6 mg/dLNormal0.1-0.9C[facility] Po[facility] HospitalComment on above: Order Comment: if not already done.Performed By: #### 5423474, 8797561 ####[place] [address] [place] [address] Globulin (S) [Mass/Vol]3.1 g/dLNormal1.4-4.0[facility] HospitalComment on above:Order Comment: if not already done.Performed By: #### 5939095, 1024039 ####[address] [address] Protein [Mass/Vol]7.3 g/dLNormal6.0-7.8[facility] Pointe HospitalComment on above:Order Comment: if not already done.Performed By: #### 0869223, 4420555 ####[address] [address] Ambulatory Clinical Summaryon 12-21-3939Cysirdlrwe Clinical Summary {4x-l6-5m-6e-m7-1h-7a-9s-69-i4-2a-45-4d-97-4c-b4}CD:173938SeaulgFjslacHolzer Medical Center – JacksonConsent for Procedure/Surgeryon 45-03-3491Xracher for Procedure/[id number]#1.00CD:127[facility] for Procedure/Surgery [id number]#1.00CD:127[facility] – JacksonFormson [id number]#1.00CD:127 [facility] – JacksonForms [id number]#1.00CD:127[facility] JacksonPhysician Orderon 09-77-1685Rrocrufjc Order [id number]#1.00CD:127BabsMount Carmel Health SystemPhysician Referralon 85-07-5491Wtwhbqjuq Referral [id number]#1.00CD:127[facility] – JacksonPostoperative Documentson 15-28-1884Fxkxxrmxslohi Documents [id number]#1.00CD:127[facility] JacksonProgress Note-Physicianon 94-41-6593Vhqvpaeq Note-PhysicianPatient: RAJIV TOVAR Age: 25 years Sex: Female [...] 10 tab(s), Refills(s) 0, Pharmacy: [facility]/pharmacy #[id number], 168, cm, 04/19/20 6:20:00 EDT, Height/Length Dosing, 58.5, kg, 04/19/20 6:20:00 EDT, Weight Dosing omeprazole 40 mg Cap-DR: 40 mg = 1 cap(s), Oral, Daily, # 30 cap(s), Refills(s) 2, Pharmacy: [facility]/pharmacy #[id number], 168, cm, 04/20/20 10:06:00 EDT, Height/Length Dosing, 59.5, kg, 04/20/20 10:06:00 EDT,Weight Dosing Documented Medications Documented dicyclomine 20 mg [...] Cardiovascular: Regular rhythm. Neurologic: Alert, Oriented. Plan [place] [employer] Anesthesiologists (ASA) physical status classification: Class II. Anesthetic Preoperative Plan Anesthesia: General. . Anesthetic plan, risks, benefits, and alternatives discussed with the patient and/or family. Communication: face to face with (patient 5 minutes, Patient educated on smoking cesstation).[facility] – JacksonComment on above:Result Comment: Electronically Signed By: Bakari Husain Jr, DO\.br\Date and Time Signed: 05/03/20 09:37 ESTProgress Note-PhysicianPatient: RAJIV TOVAR Age: 25 years Sex: Female [...] mmHg (APR 29) SpO2 100 % (APR 29:) Weight 59.5 kg (APR 29) Height 165 [...] nausea and vomiting. Plan Transfer/ Discharge: Condition stable.[facility] – JacksonComment on above:Result Comment: Electronically Signed By: Bakari Husain Jr, DO\Date and Time Signed: 05/03/20 09:37 ESTConsenton 75-15-0693Dtdweau [id number]#1.00CD:127[facility] JacksonDischarge Instructionson 00-83-7069Xvtldhtwc Instructions [id number]#1.00CD:127NoMount Carmel Health SystemGeneral Surgery Office/Clinic Noteon 15-93-7384Cyhzzcu Surgery Office/Clinic NoteChief Complaint biliary dyskenesia History of Present Illness pt presents for consultation regarding right upper quadrant pain. pt complains of nausea, RUQ abdominal pain into back, sensitivity to greasy, spicery foods for the last 2 months, attacks flaring thelast 2-3 weeks. US abdomen on 04/19 showing [...] swallowing difficulties, no hearing loss, no ear infection(s),no nose bleeds. Cardiovascular: normal blood pressure, no [...] represent a polyp, nonshadowing stone, or sludge. Whetherthis is the cause of her pain is difficult to determine. However given a normal EGD her gallbladderis most likely the source of her complaints. [...] When Contact Information TIMBO POLK, Aiden Tilley [facility] [address] [place] [address]- Additional Instructions: F/U POST OP. Problem List/Past Medical History Ongoing No qualifying data Historical No qualifying data Medications dicyclomine 20 mg Tab, 20 mg= 1 tab(s), Oral, TID, PRN, Not taking duloxetine omeprazole 40 mg Cap-DR, 40 mg= 1 cap(s), Oral, Daily, 2 refills, Not taking: patient hasnt startedRx Zofran ODT 4 mg Tab, 4 mg= 1 tab(s), Oral, TID Allergies HYDROcodone (Hives) oxyCODONE (Hives) penicillin (Hives) Social History Alcohol Current, 04/19/2020 Substance Abuse Current, 04/19/2020 Tobacco Never (less than 100 in lifetime) Tobacco Use:., 05/02/2020 Never (less than 100 in lifetime) Tobacco Use:., 04/20/2020 Never (less than 100 in lifetime) Tobacco Use:. Cigarettes, 04/19/2020 Family History Family history is negativeHolzer Medical Center – JacksonComment on above: Result Comment: Electronically Signed By: Aiden IZQUIERDO MD\.br\Date and Time Signed: 05/02/20 15:39 EST\.br\Electronically Co-Signed By: Mildred Cook MA\.br\Date and Time Co-Signed: 05/02/20 15:25 ESTIntraOperative Documentson 09-24-8637PgfxiNiswjxgze Documents [id number]#1.00CD:127NoMount Carmel Health SystemIntraOperative Documents [id number]#1.00CD:127[facility] JacksonMain OR Intraoperative Recordon 34-54-0355Twje OR Intraoperative Record IntraOp Document Type FT Summary Primary Physician: Ezequiel MARTINEZ MD Finalized Date/Time: 05/02/20 08:23:39 Pt. Name: RAJIV TOVAR/Sex: 1995 Female Med Rec #: [id number] Physician: Ezequiel MARTINEZ MD Financial #: [id number] Pt. Type: O Room/Bed: / Admit/Disch: 04/29/20 10:12:58 - 04/29/20 23:59:59 Institution: Case Times FT Entry 1 Patient Times In Room 04/29/20 10:52:00 Out Room 04/29/20 11:04:00 Procedure Times Start 04/29/20 10:56:00 Stop 04/29/20 10:59:00 Anesthesia Times Start 04/29/20 10:52:00 Stop 04/29/20 11:04:00 Last Modified By: Russell Maloney RN 04/29/20 11:04:12 General Comments: 05/02/2020 Chart opened to review and send charges. F Dagmar LARRY CAR OPERATOR. Case Attendance FT Entry 1 Entry 2 Entry 3 Case Attendee Rodrigue Berry DO, Bakari MARTINEZ MD, Ezequiel Maloney RN, Russell [place] Role Performed Anesthesiologist of Surgeon - Primary Residential Property Manager - Primary Record Time In 04/29/20 10:52:00 04/29/20 10:52:00 04/29/20 10:52:00 Time Out 04/29/20 11:04:00 04/29/20 11:04:00 04/29/20 11:04:00 Procedure EGD(.) EGD(.) EGD(.) Comments Last Modified By: Russell Maloney RN, RN, Russell Maloney RN, Russell [place] 04/29/20 11:04:13 04/29/20 11:04:13 04/29/20 11:04:13 Entry 4 Entry 5 Entry 6 Case Attendee Mere TURNER, Geno Garcia, Charlotte Bal LARRY CAR OPERATOR, Aria Role Performed Residential Property Manager - Primary Scrub - Primary Staff [...] No Time Out Rodrigue Berry DO, Bakari A, Given Participants Ezequiel MARTINEZ MD, Souter RN, [...] Side Right Arm P (more content not included)...[facility] Provider Letter [place]on 82-00-5702Zebgtumh Letter [place] Ezequiel Martinez M.D. [address] [place] [address] Re: RAJIV TOVAR Date of : 1995 Dear Ezequiel I saw Rajiv Tovar in my office today. Thank you for this referral. As you know Rajiv has been having fairly classic right upper quadrant biliary pain for the past several months that has increased in frequency and intensity over time. Her gallbladder ultrasound wasinconclusive showing either a nonshadowing stone, polyp, or sludge. As her EGD was unremarkable anddid not show any findings that would explain her symptoms, I agree a cholecystectomy would be beneficial. The procedure was discussed and consent obtained. She is scheduled for surgery later this month. Thank you for allowing me to participate in the care of Rajiv Tovar. I will send you a copy of heroperative report following her procedure. Sincerely [facility] GlenbeighCoding Summary.on 52-00-5576Eyaijl Summary. CODING DATE: 04/29/2020 [facility] STATUS: Home (Routine DC) PAYOR: [place] ADMIT DX: REASON FOR VISIT DX: [...] Linda Jaquez CphT Date Saved: 04/29/2020 11:14 pmNormalCleveland Clinic South Pointe HospitalConsent for Treatmenton 47-12-5050Bnvtvuk for Treatment [id number]#1.00CD:127NormalCleveland Clinic South Pointe HospitalEndoscopic Procedure Report - Otheron 23-64-9759Rjrqmxtmdg Procedure Report - OtherPatient: RAJIV TOVAR Age: 25 years Sex: Female : 1995 Associated Diagnoses: None Author: Ezequiel MARTINEZ MD Pre-Procedure Procedure Date 04/29/2020 11:01:00 . Procedure Type: Esophagogastroduodenoscopy. Procedure provider Performed by Ezequiel Martinez MD. Current history and physical Documented on chart. Informed Consent After discussing the rationale, risks and benefits, and alternatives to this procedure, the patient provided signed consent for the procedure. Pre-procedure diagnosis: Epigastric pain. Right upper quadrant pain. Medications Anticoagulant/antiplatelet None. Antibiotic prophylaxis None. ASA Classification: Class II. . Monitoring: See anesthesia record. . Procedure The procedure was performed in the hospital. See anesthesia record for sedation given during procedure. The patient was positioned starting in the left lateral decubitus position and with safety measures. Endoscope type used was an adult- size, introduced orally, advanced to the 2nd portion [...] weeks Consults surgery for right upper quadrant pain/cholelithiasisHolzer Medical Center – JacksonComment on above:Result Comment: Electronically Signed By: MARU POLK, Ezequiel\.br\Date and Time Signed: 04/29/20 11:03 ESTOther Comment: Missing Attachment - attachment storage system not supported [id number] Can be viewed in source systemMissing Attachment - attachment storage system not supported [id number] Can be viewed insource systemMissing Attachment - attachment storage system not supported [id number] Can be viewed in source systemMissing Attachment - attachment storage system not supported [id number] Can be viewed in source systemMissing Attachment - attachment storage system not supported [id number] Can be viewed in source systemInpatient Patient Summaryon 24-73-2846Xjxwlonlo Patient Summary [address] [address] [facility] Clinical Discharge Instructions PERSON INFORMATION Name: RAJIV TOVAR PHYSICIANS Admitting Physician: Ezequiel MARTINEZ MD Attending Physician: Ezequiel MARTINEZ MD PCP: Gus POLK, Alon Discharge Diagnosis: Abdominal pain Comment: PATIENT EDUCATION INFORMATION Instructions: Medication Leaflets: Follow up: With: Address: When: Aiden IZQUIERDO [address] [facility], [address] [place] [address] Business (1) With: Address: When: Ezequiel [facility] [address] [facility], [place] [address] Within 2 weeks Type Location Start [facility] Follow Up [facility] 05/16/2020 1:00 PM 05/16/2020 1:15 PM Confirmed MEDICATION LIST Medications to Continue with No Changes Other Medications dicyclomine (dicyclomine 20 mg Tab) 1 Tablets By Mouth 3 times a day as needed Pain. omeprazole (omeprazole 40 mg Cap-DR) 1 Capsules By Mouth every day. Refills: 2. ondansetron (Zofran ODT 4 mg Tab) 1 Tablets By Mouth 3 times a day. Refills: 0. Comment:[facility]Main OR PACU I Recordon 62-80-8969Firt OR PACU I RecordPACU Phase I Document Type FT Summary Primary Physician: Ezequiel MARTINEZ MD Finalized Date/Time: 04/29/20 12:13:51 Pt. Name: RAJIV TOVAR/Sex: 1995 Female Med Rec #: [id number] Physician: Ezequiel MARTINEZ MD Financial #: [id number] Pt. Type: O Room/Bed: / Admit/Disch: 04/29/20 [...] individualized perioperative plan of care The patient's rightto privacy is maintained The patient's value system, [...] with or improved from baseline levels established preoperativelyThe patient's cardiovascular status is consistent with or improved from baseline levels established preoperatively The patient's cardiovascular status is consistent with or improved from baseline levels established preoperatively The patient demonstrates and/or reports adequate pain control throughout the perioperative period The patient received appropriate medication(s), safely administered during the perioperativeperiod Acuity Level PACU I FT Entry 1 Start Time 04/29/20 11:05:00 Stop Time 04/29/20 11:35:00 Acuity Level Acuity Level I Last Modified By: Belkys Yarbrough RN 04/29/20 12:13:49 Finalized By: Belkys Yarbrough RN Document Signatures Signed By: Belkys Yarbrough RN 04/29/20 12:13NoMount Carmel Health SystemMain OR Preoperative Recordon 82-45-7399Pvnc OR Preoperative RecordHolding Area Document Type FT Summary Primary Physician: Ezequiel MARTINEZ MD Finalized Date/Time: 04/29/20 10:21:44 Pt. Name: RAJIV TOVAR/Sex: 1995 Female Med Rec #: [id number] Physician: Ezequiel MARTINEZ MD Financial #: [id number] Pt. Type: O Room/Bed: / Admit/Disch: 04/29/20 [...] or her perioperative plan of care The patient'sright to privacy is maintained Surgery Checklist FT [...] Signatures Signed By: Marielle Pineda RN 04/29/20 10:21NoMount Carmel Health SystemMonitor Record on 09-54-3203Ajwqlcm [id number]:127 [facility] JacksonOutpatient Surgery Discharge Instructionon 58-00-6406Ivuaacbwmj Surgery Discharge Instruction [place] [address] Patient Discharge Instructions PERSON INFORMATION Name: RAJIV [...] TOVAR, have received the attached patient education materials/instructions and have verbalized understanding: May we do a follow up call? Yes No I was present when discharge instructions were given Patient Signature Date Clinican/Nurse Signature Date Follow up: With: Address: When: Aiden IZQUIERDO [address], [address] [place] [address] Business (1) With: Address: When: [facility] [address], [place] [address] Within 2 weeks Type Location Start [facility] Follow Up [facility] 05/16/2020 1:00 PM 05/16/2020 1:15 PM Confirmed Pharmacy Information: Thank you for choosing [facility] HERE ARE THE MEDICATION CHANGES [...] a day. Refills: 0. PATIENT EDUCATION INFORMATION Instructions:[facility] – JacksonPatient Education - Texton 04-81-7480Gufagcr Education - TextNormRegional Medical CenterPriority Order-Mitchell 13-94-0794Xceyfopj Order-STATCommentInvalid Interpretation Code [facility] HospitalComment on above:Result Comment: Received Performed at: [facility] [address] [place], [place] [id number] MD Jacobson AnaghPerformed By: #### [id number], SARS-CoV-2, MARY #### [facility] [address] [place], [place] [address]TGKU-FtN-1, NAAon 29-30-7445LFHC-CoV-2 (COVID-19) RNA MARY+probe Ql (Resp)Not detectedInvalid Interpretation CodeNot DetectedCleveland Clinic South Pointe HospitalComment on above:Result Comment: This nucleic acid amplification test was developed and its performance characteristics determined by [employer]. Nucleic acid amplification tests include PCR and [...] detected) result in this assay. Performed at: [facility] [address] [place] [id number] MD Jacobson AnaghPerformed By: #### [id number], SARS-CoV-2, MARY #### [facility] [address] [place], [place] [address]Dstywgswjl Clinical Summaryon 50-28-5590Oinxgzvlfy Clinical Summary{6t-20-5m-ld-08-8j-6o-4a-56-0x-v8-11-37-59-21-d1}CD:[id number] Carmel Health SystemCoding Summary.on 40-69-9985Aovngt Summary.CODING DATE: 04/20/2020 FINAL [facility] STATUS: Home (Routine DC) PAYOR: Reba [...] Lissa Bond Revised Date Saved: 04/20/2020 07:55 amNTriHealth McCullough-Hyde Memorial HospitalConsent for Procedure/Surgeryon 60-02-5792Mnacees for Procedure/Surgery [id number]#1.00CD:127NoMount Carmel Health SystemGastroenterology Office/Clinic Noteon 39-77-8237Atgtutcfehttdjlz Office/Clinic NoteChief Complaint f/u to ER RUQ HPI Staff This is a 24 year old female who presents today for a follow up for an ED visit for RUQ pain. History of Present Illness 24 years old white female with no significant past medical history except for anxiety, referred to me from [facility], ER to be evaluated for right upper quadrant abdominal pain, she reports right upper quadrant abdominal pain, started 6 weeks ago, sporadic, moderate in nature except for the lasttime when it was severe for which she went to [facility] ER, she had normal CBC, CMP and lipase,ultrasound revealed a 7 mm lesion in the gallbladder(nonshadowing stones versus polyp), discharge home with Bentyl, reports no fever chills, no diarrhea, constipation or rectal bleeding, reports mildnausea but no heartburn, no dysphagia, she has [...] rubs, murmurs or gallop. Peripheral: no edema Gastrointestinal/Abdomen: Abdomen: normal consistency and bowel sounds; no [...] 30 cap(s), Refills(s) 2, Pharmacy: [facility]/pharmacy #[id number], cm, 04/20/20 10:06:00 EDT, Height/Length Dosing, 59.5, kg, 04/20/20 10:06:00 EDT, Weight Dosing EGD Endoscopy (Hospital Procedure) 2. Anxiety (F41.9: Anxiety disorder, unspecified) 3. Nausea (R11.0: Nausea) Ordered: omeprazole, 40 mg = 1 cap(s), Oral, Daily, # 30 cap(s), Refills(s) 2, Pharmacy: [facility]/pharmacy #[id number], cm, 04/20/20 10:06:00 EDT, Height/Length Dosing, 59.5, kg, 04/20/20 10:06:00 EDT, Weight Dosing EGD Endoscopy (Hospital Procedure) Follow-up With When Contact Information Ezequiel MARTINEZ MD Within 2 weeks [facility] [address], [place] [address]- Additional Instructions: Patient Education Abdominal Pain Abdominal [...] Cigarettes, 04/19/2020 Family History Family history is negativeHolzer Medical Center – JacksonComment on above: Result Comment: Electronically Signed By: Ezequiel MARTINEZ MD\.br\Date and Time Signed: 04/20/20 10:56 EDTPatient Educationon 18-44-0734Rshuxcl Education Abdominal Pain Abdominal pain can be caused by many things. Your caregiver decides the seriousness of your pain byan examination and possibly blood tests and X-rays. Many cases can be observed and treated at home.Most abdominal pain is not caused by a [...] directed by your caregiver. ? Only take ompv-cud-nyuaucx or prescription medicines for pain, discomfort, or [...] Document Reviewed: 01/26/2009 ExitCare? Patient Information ?2013 [employer]. Family Medicine Abdominal Pain Abdominal pain can be caused by many things. Your caregiver decides the seriousness of your pain byan examination and possibly blood tests and X-rays. Many cases can be observed and treated at home.Most abdominal pain is not caused by a [...] directed by your caregiver. ? Only take uhbb-goi-ylmrain or prescription medicines for pain, discomfort, or [...] Document Reviewed: 01/26/2009 ExitCare? Patient Information ?2013 [employer].NormalCleveland Clinic South Pointe HospitalPhysician Orderon 17-77-2940Nfedvrllu Order [id number]:127NormalCleveland Clinic South Pointe HospitalPhysician [id number]#1.00CD:127Normal [facility] HospitalAuto Diffon 12-18-6517Bsrbsbzzo/100 WBC (Bld)0.6 % Normal0.0-2.0[facility] HospitalComment on above:Order Comment: Order Added by Discern Expert.Performed By: #### [id number] #### [facility] [address] [place] [address]Arplbpmbe/Leukocytes Auto (Bld) [Pure # fraction]0.0 E9/LNormal 0.0-0.2FOhioHealth Nelsonville Health CenterComment on above:Order Comment: Order Added by Discern Expert.Performed By: #### [id number] #### [facility] [address] [place] [address]Zlckokjbdtf/100 WBC (Bld)0.2 %Normal0.0-8.0[facility] HospitalComment on above:Order Comment: Order Added by Discern Expert.Performed By: #### [id number] #### [facility] [address] [place] [address]Saccadffkzb/Leukocytes Auto (Bld) [Pure # fraction]0.0 E9/L Normal0.0-0.5FOhioHealth Nelsonville Health CenterComment on above:Order Comment: Order Added by Discern Expert.Performed By: #### [id number] #### [facility] [address] [place] [address]Nufkjtxghtx/100 WBC (Bld)34.4 %Mapcrv42.0-50.0[facility] HospitalComment on above:Order Comment: Order Added by Discern Expert. Performed By: #### [id number] #### [facility] [address] [place] [address]Ghwpuzggkwx/Leukocytes Auto (Bld) [Pure # fraction]2.5 E9/L Normal1.0-4.0[facility] HospitalComment on above:Order Comment: Order Added by Discern Expert.Performed By: #### [id number] #### [facility] [address] [place] [address]Avpgirhrb/100 WBC (Bld)6.1 %Normal4.0-14.0[facility] HospitalComment on above:Order Comment: Order Added by Discern Expert.Performed By: #### [id number] #### [facility] [address] [place] [address]Apnplhuuq/Leukocytes Auto (Bld) [Pure # fraction]0.4 E9/LNormal 0.2-1.0[facility] HospitalComment on above:Order Comment: Order Added by Discern Expert.Performed By: #### [id number] #### [facility] [address] [place] [address]Grhasyibjat/100 WBC (Bld)58.7 %Xealdr86.0-75.0[facility] HospitalComment on above:Order Comment: Order Added by Discern Expert. Performed By: #### [id number] #### [facility] [address] [place] [address]Fxalqnzffgk/Leukocytes Auto (Bld) [Pure # fraction]4.2 E9/L Normal2.0-7.5FOhioHealth Nelsonville Health CenterComment on above:Order Comment: Order Added by Discern Expert.Performed By: #### [id number] #### [facility] [address] [place] [address]XBTaz 56-58-6119Xgkyoteoxc [Mass/Vol]0.8 mg/dLNormal0.5-1.3 [facility] HospitalComment on above:Performed By: #### [id number] #### [facility] [address] [place], [place] [address]Knwj nitrogen [Mass/Vol]12 mg/dLNormal5-21[facility] HospitalComment on above:Performed By: #### [id number] #### [facility] [address] [place], [place] [address]Xkbw nitrogen/Creatinine [Mass ratio]15 No WlzfvIziozo57-32 [facility] HospitalComment on above:Performed By: #### [id number] #### [facility] [address] [place], [place] [address]Iukyv gap [Moles/Vol]11 mmol/LNormal6-16[facility] HospitalComment on above:Performed By: #### [id number] #### [facility] [address] [place], [place] [address]Wdrhvgy [Mass/Vol]9.7 mg/dLNormal8.9-11.1FOhioHealth Nelsonville Health CenterComment on above:Performed By: #### [id number] #### [facility] [address] [place], [place] [address]Svexhnsa [Moles/Vol]103 mmol/CCxhznn732-078VxybbuCleveland Clinic South Pointe HospitalComment on above:Performed By: #### [id number] #### [facility] [address] [place], [place] [address]TQ8 [Moles/Vol]27 mmol/MGiapwa51-51HxssagCleveland Clinic South Pointe Hospital Comment on above:Performed By: #### [id number] #### [facility] [address] [place], [place] [address]Qtbaclp [Mass/Vol]97 mg/rWAtiszx96-589XqqfkgCleveland Clinic South Pointe HospitalComment on above:Result Comment: If this glucose result represents a fasting glucose, interpretation should refer tothe following reference range: 55-99 mg/dLPerformed By: #### [id number] #### [facility] [address] [place], [place] [address]Bvdmlpukf [Moles/Vol]3.5 mmol/LNormal3.5-5.3FOhioHealth Nelsonville Health CenterComment on above:Performed By: #### [id number] #### [facility] [address] [place] [address]Tzffqh [Moles/Vol]137 mmol/EUwzcjx191-111MhlafsCleveland Clinic South Pointe HospitalComment on above:Performed By: #### [id number] #### [facility] [address] [place] [address]DQN w/ Auto Diffon 09-76-5982Lsuwwcwouyf distribution width (RBC) [Ratio]13.3 %Amiuyg48.9-14.2FOhioHealth Nelsonville Health CenterComment on above: Performed By: #### [id number] #### [facility] [address] [place] [address]Wufuzlduoh (Bld) [Volume fraction]37.6 %Azkofh20.0-46.0[facility] HospitalComment on above:Performed By: #### [id number] #### [facility] [address] [place] [address]Ztzkjvothr (Bld) [Mass/Vol]13.4 g/mGEdfxui26.0-16.0[facility] HospitalComment on above:Performed By: #### [id number] #### [facility] [address] [place] [address]VQI (RBC) [Entitic mass]31.9 hjSbywmi38.0-34.0[facility] HospitalComment on above:Performed By: #### [id number] #### [facility] [address] [place], [place] [address]JXOV (RBC) [Mass/Vol]35.7 g/cBKywkgo12.4-36.0[facility] HospitalComment on above:Performed By: #### [id number] #### [facility] [address] [place] [address]RRX (RBC) [Entitic vol]89.2 tOTzzsar04.0-100.0[facility] HospitalComment on above:Performed By: #### [id number] #### [facility] [address] [place] [address]Oagpsftr mean volume (Bld) [Entitic vol]9.4 fLNormal6.4-10.8 [facility] HospitalComment on above:Performed By: #### [id number] #### [facility] [address] [place] [address]Faotiofzo (Bld) [#/Vol]219.0 E9/JObpwqz587.0-500.0[facility] HospitalComment on above:Performed By: #### [id number] #### [facility] [address] [place] [address]NHS (Bld) [#/Vol]4.2 E12/LLow4.3-5.9[facility] Comment on above:Performed By: #### [id number] #### [facility] [address] [place] [address]GLH corrected for nucl RBC Auto (Bld) [#/Vol]7.2 E9/LNormal 4.0-11.0[facility] HospitalComment on above:Performed By: #### [id number] #### [facility] [address] [place] [address]Cwkwgda for Treatmenton 74-71-5031Wkdldfk for Treatment [id number]:[address] [place], [place] [address]Discharge Instructionson 01-60-8148Alxsfddim Instructions [id number]:127[facility] Clinical Summaryon 95-92-5914GY Clinical Summary [address] [address] ED Clinical Summary Person Information Name: RAJIV TOVAR [facility]len[facility] Age: 24 Years : 1995 Sex: Female Language: Northern Irish PCP: Alon Weber MD Marital Status: Single [...] 08:58:55 04/19/2020 08:58:55 AD[address]ESS: [address] [facility] [id number] PHYS DOC NOTES: Addendum by Laureano Phillip DO on April 19, 2020 08:26:02 EDT MEDICAL INFORMATION: Prescriptions Given: New Medications [id number], [address], [place] [id number], [phone] dicyclomine (dicyclomine 20 mg Tab) 1 Tablets By Mouth 3 times a day for 7 Days. Refills: 0. ondansetron (Zofran ODT 4 mg Tab) 1 Tablets By Mouth 3 times a day. Refills: 0. PATIENT EDUCATION INFORMATION: Instructions: Cholelithiasis Follow up: With: Address: When: [facility], [address] [place] [address] Business (1) In 3 days 04/22/2020 DIAGNOSIS: 1:Abdominal pain; Biliary colic; Gall stone; NauseaNormalAnanth Weiner Medical CenterED Note-Nursingon 18-63-3935BV Note-NursingReport received from Zacarias Cuevas RN. Patient resting on cart. Updated on plan of care. Denies any needs at this time. Call light in reach.[facility] Medical CenterED Note-Physicianon 76-42-8223IE Note-PhysicianBasic Information Time Seen: Susana Belcher M.D. 04/19/2020 [...] for the past couple of months on andoff and for the past couple days has been persistent. The patient rates the pain 7-8 out of 10. Shestates the pain radiates sometimes down to the right lower quadrant and sometimes across to her midto lower back. She states sitting makes the [...] Stop date 04/19/20 6:24:00 EDT, STAT, Start date04/19/20 6:24:00 EDT ondansetron, 4 mg = 2 [...] the prior physician I did review full work- up here in the emergency department including labs urinalysis and gallbladder ultrasound. Ultrasound does show positive finding which may represent noncalcified stone versus perhaps some biliary sludge. Clinically this fits the picture today. Patient does feel better she is going to be discharged home with referral to GI educated on dietary modifications with instructions to drink plenty of fluid. She is given Zofranas needed for nausea Bentyl as needed for pain and follow-up in the outpatient setting. She is given a note for work as well. Disposition: Discharged home Diagnosis: Abdominal pain, cholelithiasis, biliary colicNTriHealth McCullough-Hyde Memorial HospitalComment on above:Result Comment: Electronically Signed By: Laureano Phillip DO\.ilana\Date and Time Signed: 04/19/20 08:26EDTED Patient Education Noteon 68-80-1550WC Patient Education NoteFamily Medicine Cholelithiasis Cholelithiasis (also called gallstones) is [...] Pain can also occur when a stone passesout of the duct. RISK FACTORS ? Being [...] medicine. HOME CARE INSTRUCTIONS ? Only take gvwd-lvm-pwgupvt or prescription medicines for pain, discomfort, or [...] Document Reviewed: 12/02/2013 ExitCare? Patient Information ?2015 [employer]. This information is not intended to replace advice given to you by your health care provider. Make sure you discuss any questions you have with yourhealth care provider.[facility] Patient Summaryon 37-77-0988LN Patient Summary [address] [address] Patient Discharge Instructions Person Information Name: RAJIV TOVAR Age: 24 Years Arrival Date: 04/19/2020 06:10:12 Discharge Diagnosis: 1:Abdominal pain; Biliary colic; Gall stone; Nausea Primary Care Physician: Alon Weber MD Provider Information Primary Provider: Susana Belcher M.D. Advanced Blindstitch Hemmer:None The exam and treatment you received in the Emergency Department were for an urgent problem and are not intended as complete care. It is important that you follow up with a doctor, nurse practitioner,or physician?s family readiness support assistant for ongoing care. If your symptoms become worse or you do not improve as expected and you are unable to reach your usual health care provider, you should return to the Emergency Department. We are available 24 hours a day. RAJIV TOVAR has been given the following list of patient education materials, prescriptions and follow-up instructions: Follow-up Instructions: With: Address: When: [facility], [address] [place] [address] Business (1) In 3 days 04/22/2020 In the event that this physician does not participate in your insurance network, please consult with your insurance company to find a nearby participating provider. Patient Education Materials: Cholelithiasis A MESSAGE TO ALL PATIENTS REGARDING OPIOIDS PRESCRIPTION OPIOIDS: WHAT YOU NEED TO KNOW Prescription opioids can be used to help relieve fwlqzbbs-wj-ukjhzb pain and are often prescribed following a [...] and have fewer risks and side effects. Optionsmay include: ? Pain relievers such as acetaminophen, [...] unused prescription opioids: Find your community drug take- back program or yourpharmacy mail-back program, or flush them down the toilet, following guidance from the Food and Drug Administration (www.fda.gov/Drugs/ResourcesForYou). ? Visit www.cdc.gov/drugoverdose to learn about the risks of opioids abuse and overdose. ? If you believe you may be struggling with addiction, tell your health team primary care physician and ask for guidance or call [facility]A?S National Helpline at 7-614-4 (more content not included)...NormalCleveland Clinic South Pointe HospitalHep Func Panelon 49-06-3921Zuqdvhqrr.indirect [Mass or moles/Vol]UTCAbnormal0.1-0.9[facility] HospitalComment on above:Result Comment: Result verified by Discern Rule. Performed result UTC (Unable to Calculate) was sent as an Alpha code due the inability to calculate a valid numeric value.Performed By: #### [id number] #### [facility] [address], [place] [address]Mlucgts [Mass/Vol]4.3 g/dLNormal3.3-5.0[facility] HospitalComment on above:Performed By: #### [id number] #### [facility] [address], [place] [address]Eqmuwiu/Globulin (S) [Mass conc ratio]1.0Bezcta9.1-2.2FOhioHealth Nelsonville Health CenterComment on above:Performed By: #### [id number] #### [facility] [address], [place] [address]QNW [Catalytic activity/Vol]77 Int._Unit/VGycwyg04-62WfyfasCleveland Clinic South Pointe HospitalComment on above:Performed By: #### [id number] #### [facility] [address], [place] [address]EXQ No additional P-5'-P [Catalytic activity/Vol]59 Int._Unit/L High6-46[facility] HospitalComment on above:Performed By: #### [id number] #### [facility] [address] [place] [address]40[address]XEB [Catalytic activity/Vol]36 Int._Unit/LNormal5-43[facility] HospitalComment on above:Performed By: #### [id number] #### [facility] [address] [place] [address] 133[address]Jmpwxewmb [Mass/Vol]0.4 mg/dLNormal0.0-1.1FOhioHealth Nelsonville Health CenterComment on above:Performed By: #### [id number] #### [facility] [address] [place] [address] 99[address]Rpjhvyusy.direct [Mass/Vol]mg/dLNormal0.1-0.4FOhioHealth Nelsonville Health CenterComment on above:Performed By: #### [id number] #### [facility] [address] [place] [address]Mclxvafr (S) [Mass/Vol]2.8 g/dLNormal1.4-4.0[facility] HospitalComment on above:Performed By: #### [id number] #### [facility] [address] [place] [address]Buqbyzt [Mass/Vol]7.1 g/dLNormal6.0-7.8[facility] HospitalComment on above:Performed By: #### [id number] #### [facility] [address] [place] [address]Jhxsep Levelon 01-21-3774Stfodz [Catalytic activity/Vol]43 U/L Gjhmfw15-79LmkguwCleveland Clinic South Pointe HospitalComment on above:Performed By: #### [id number] #### [facility] [address] [place] [address]QW & PTTon 40-37-9909eFSB Coag (PPP) [Time]30.2 second(s)Normal 25.1-36.5FOhioHealth Nelsonville Health CenterComment on above:Result Comment: Heparin therapeutic range (represented by Anti-Factor Xa activity of 0.2 - 0.4 U/mL) corresponds to PTT of 56.6 - 109.0 sec.Performed By: #### [id number] #### [facility] [address] [place] [address] 95596LMX Coag (PPP) [Relative time]1.0 {INR}Invalid Interpretation CodeCleveland Clinic South Pointe HospitalComment on above:Result Comment: INR results are specifically intended to assess patients stabilized on long-term Anticoagulation therapy suggested INR?s ?Less Intensive Anticoagulation? 2.0 ? 3.0 Conventional Range 3.0 ? 4.5Performed By: #### [id number] #### [facility] [address] [place] [address] 10174CU Coag (PPP) [Time]11.8 second(s)Obdiyu73.2-12.9[facility] HospitalComment on above:Performed By: #### [id number] #### [facility] [address] [place] [address]Tjmxeodzipevl/Work Noteson 68-02-2708Tlobakhfvytfq/Work Notes [id number]#1.00CD:127NormalCleveland Clinic South Pointe HospitalU BetaHcg Qualon 07-77-5875EGZ.beta subunit (U) [Moles/Vol]NegativeNormal [facility] HospitalComment on above:Performed By: #### [id number] #### [facility] [address] [place] [address] 385[address]JF With Cult Reflexon 37-49-0321Mtyjndts LM Ql (Urine sed)TRACE NormalTraceCleveland Clinic South Pointe HospitalComment on above:Performed By: #### [id number] #### [facility] [address] [place] [address] 32439Ukdiamfid Ql (U)NegativeNormalNegativeCleveland Clinic South Pointe HospitalComment on above:Performed By: #### [id number] #### [facility] [address] [place] [address]Webrqre (U)CLEARNormalClearPending Sale To Nov[facility] Healther [facility] Medical CenterComment on above:Performed By: #### [id number] #### [facility] [address] [place] [address] 536[address]Zbxqy (U)YELLOWNormalYellowCleveland Clinic South Pointe HospitalComment on above:Performed By: #### [id number] #### [facility] [address] [place], [place] [address]Yxnqpror LM Ql (Urine sed)PresentNormalCleveland Clinic South Pointe HospitalComment on above:Performed By: #### [id number] #### [facility] [address] [place] [address]Ersheeerke cells.squamous LM.HPF (Urine sed) [#/Area]3-4Normal 0-2Fisher [facility] CenterComment on above:Performed By: #### [id number] #### [facility] [address] [place] [address] 91821Slgikqw Test strip (U) [Mass/Vol]NegativeNormalNegativeCleveland Clinic South Pointe HospitalComment on above:Performed By: #### [id number] #### [facility] [address] [place] [address] 353[address]Hduutmaatx Ql (U)TRACEAbnormalNegativeCleveland Clinic South Pointe HospitalComment on above:Performed By: #### [id number] #### [facility] [address] [place], [place] [address]Jwaajqv (U) [Mass/Vol]NegativeNormalNegativeCleveland Clinic South Pointe HospitalComment on above:Performed By: #### [id number] #### [facility] [address] [place], [place] [address]Bcvwupe.plasma/Coronaca.RBC (Bld) [Mass ratio]5-5Zuiyzm4-2Wpjjla [facility] CenterComment on above:Performed By: #### [id number] #### [facility] [address] [place] [address] 85[address]Pqjdcax Ql (U)NegativeNormalNegativeC[facility] Comment on above:Performed By: #### [id number] #### [facility] [address] [place] [address] 53010tP (U)6.5 [pH]Invalid Interpretation Code5.0-9.0[facility] HospitalComment on above:Performed By: #### [id number] #### [facility] [address] [place] [address] 77[address]Rjoznge (U) [Mass/Vol]NegativeNormalNegativeCleveland Clinic South Pointe HospitalComment on above:Performed By: #### [id number] #### [facility] [address] [place] [address] 604[address]Zxowtwld gravity (U) [Rel density]1.025Invalid Interpretation Code1.005-1.030[facility] HospitalComment on above:Performed By: #### [id number] #### [facility] [address] [place] [address] 36[address]OS Spec DescClean CatchNormalCleveland Clinic South Pointe HospitalComment on above:Performed By: #### [id number] #### [facility] [address] [place] [address] 638[address]Vckzjugxwrcp Qn (U)0.2 {Arnie'U}/dLNormal0.0-1.0[facility] HospitalComment on above:Performed By: #### [id number] #### [facility] [address] [place] [address] 15116ZHL Auto Ql (U)NegativeNormalNegativeCleveland Clinic South Pointe HospitalComment on above:Performed By: #### [id number] #### [facility] [address] [place] [address] 286[address]LBG LM.HPF (Urine sed) [#/Area]6-8Xxkzxa5-5Cmexev [facility] CenterComment on above:Performed By: #### [id number] #### [facility] [address] [place] [address] 97[address]BP Abdomen, Limitedon 22-87-7740NA Abdomen, LimitedExam Date/Time: 04/19/2020 08:29 EDT Reason for Exam: [...] Isaiah Guo M.D. Transcribed by: OLGA Technologist: BabsMount Carmel Health SystemeGFRon 68-29-1124FWH/1.73 sq M.predicted among blacks MDRD (S/P/Bld) [Vol rate/Area] mL/min/{1.73_m2}Normal>=59C[facility] HospitalComment on above:Order Comment: Order added by Discern Expert.Result Comment: eGFR is race adjusted. AA=.Performed By: #### [id number] #### [facility] [address] [place], [place] [address]HPP/1.73 sq M.predicted among non-blacks MDRD (S/P/Bld) [Vol rate/Area]mL/min/{1.73_m2}Normal>=59[facility] HospitalComment on above: Order Comment: Order added by Discern Expert.Result Comment: Chronic kidney disease could be indicated at eGFR's of less than 60 mL/min/1.73m2. Kidney failure is indicated at less than 15 mL/min/1.73m2.Performed By: #### [id number] #### [facility] [address] [place] [address] Vital Signs Date TimeVital SignValuePerforming AsuafokhyYlyawcmr69-41-1416 14:25-0400Body kdeeiw300.6 Tere Austin MD Work Phone: [phone] [place], [place] [address]Kmivhmddqj61-53-6761 14:25-0400Body mass index (BMI) [Ratio]28.08 kg/r4ObjljJamar Austin MD Work Phone: [phone] [place], [place] [address]Vxbfjqgxjz18-37-7123 14:25-0400Body xbiuug10.93 kgJamar Austin MD Work Phone: [phone] [place], [place] [address]Sajrdthnoc61-50-8194 14:25-0400Diastolic blood ltsixnbs29 mm[Hg]Jamar Austin MD Work Phone: [phone] [place], [place] [address]Hjmtuympxc93-06-4672 14:25-0400Heart rate88 /min Jamar Austin MD Work Phone: [phone] [address]-15-2025 14:25-0400Respiratory rate18 /minJamar Austin MD Work Phone: [phone] [place] [address]-15-2025 14:25-1775AwC7% (BldA) [Mass fraction]98 %Jamar Austin MD Work Phone: [phone] [place], [place] [address]Aofmehuynr78-33-3290 14:25-0400Systolic blood qrfcbefk133 mm[Hg]Jamar Austin MD Work Phone: [address] [place], [place] [address]Btzqtsdfws34-60-9921 10:52-0400Body mass index (BMI) [Ratio]24.37 kg/m6Zifgg Dragan DO Work Phone: [facility] HospitalUpvxnauecn22-29-1270 10:52-0400Body .49 kgCorey Dragan DO Work Phone: [facility] HospitalQyjrxthivs13-49-9875 10:52-0400Diastolic blood ilekzluq05 mm[Hg]Flynn Dragan DO Work Phone: noNM Pwusmpmpwj80-11-6536 10:52-0400Systolic blood vfofkqag129 mm[Hg]Flynn Dragan DO Work Phone: [facility] Encounters Encounter DateEncounter TypeCare ProviderFacilityStart: 10-06-2024 End: 38-10-6373Eodgrn outpatient new 45 minutesJamar Austin MD Work Phone: [facility] ENDOCRINOLOGYComment on above:Hair loss (Primary Dx); Weight gain; Encounter for dietary consultation; Vitamin D deficiencyStart: 10-06-2024 End: 58-22-5034bnqjrakrdoIAJYH F SABBAGHNot AvailableStart: 10-06-2024 End: 90-37-2891Ncymer Sajan Austin MD Work Phone: [facility] ENDOCRINOLOGYStart: 10-06-2024 End: 88-84-6422Eythgz Sajan Austin MD Work Phone: [facility] ENDOCRINOLOGYStart: 09-17-2024 End: 37-81-2729Mziphz outpatient visit 15 minutesEmtasia Singh MD Work Phone: [facility] DERMComment on above:Herpesviral vesicular dermatitis (Primary Dx)Start: 09-17-2024 End: 81-65-2364ddtzpnpjcaDNXWD A PETITTINot AvailableStart: 09-17-2024 End: 65-64-5722Qnbgrt flowsheetMy Singh MD Work Phone: [facility] DERMStart: 09-17-2024 End: 64-15-1706Yadyfe flowsheetEmtasia Singh MD Work Phone: [facility] DERMStart: 03-09-2024 End: 13-02-3218jdzjqibpjjUqkjmlq Vytyin Maldonado MDFacility:[facility] Start: 03-03-2024 End: 29-49-0265Mthpmj flowsheetCorey Dragan DO Work Phone: [facility] BCP OBStart: 03-03-2024 End: 83-14-0021Fukrqz flowsheetCorey Dragan DO Work Phone: [facility] BCP OBStart: 03-03-2024 End: 45-38-2567Dfyyjoiam Result EncounterCorey Dragan DO Work Phone: [facility] External Department UnsolicitedStart: 03-03-2024 End: 31-20-1672Psjbok outpatient visit 15 minutesCorey Dragan DO Work Phone: [facility] BCP OBComment on above:Hormone imbalance; Hot flashes; Rolle; Weight gain; PCOS (polycystic ovarian syndrome)Start: 03-03-2024 End: 23-53-0685rjxudtxipoCUOVY FAZIONot AvailableStart: 02-17-2024 End: 60-86-8782qxxgstmapwTgsnsbo Vytautas Giedraitis MDFacility:[facility] Start: 01-13-2024 End: 52-84-7530zuilniwuklGyxhdzq Vytautas Giedraitis MDFacility:[facility] Start: 12-23-2023 End: 89-85-9607ejfioctyghDlcafpg Vytautas Giedraitis MDFacility:[facility] Start: 11-25-2023 End: 04-90-8805vhixurzopnRjdgrid Vytautas Giedraitis MDFacility:[facility] Start: 10-21-2023 End: 11-35-7991ntoeodvovbJVB RAMEYNot AvailableStart: 15-78-0205Nefwqs flowsheet My Singh MD Work Phone: [facility] DERMStart: 52-12-3503Qhyvwd flowsheetEmtasia Singh MD Work Phone: [facility] SWS DERMStart: 08-08-2023 End: 43-16-4265Zcqbit outpatient visit 15 minutesEmtasia Singh MD Work Phone: [facility] SWS DERMComment on above:Herpesviral vesicular dermatitis (Primary Dx)Start: 09-03-2021 End: 46-76-8914nnrqggqlnoBQ ALON HOYFacility:G7Sjcuq: 88-32-9685crpfkcsuvvCR AKASH S KUMARFacility:V8Eutdk: 08-01-2021 End: 50-22-3918rzsavephdxDB AKASH S KUMARFacility:X4Yxjgs: 07-18-2021 End: 48-13-5077nuazflcsxwUK AKASH S KUMARFacility:O5Gjrtl: 07-04-2021 End: 66-14-3352ukprnuljqaXE AKASH S KUMARFacility:H1 Procedures DateProcedureProcedure DetailPerforming ClinicianStart: 79-28-7103[facility] WITH AUTO DIFFCorey Dragan DO Work Phone: Plan of Treatment DateCare ActivityDetailAuthorStart: 09-15-2025 End: 83-06-6867Fihzwci encounter xngespdpz06/25/2026 2:20 PM EDT Office Visit [facility] [address] [place] [address] My Singh MD [address] [place] [address] [facility] DERMStart: 10-06-2024 End: 80-58-8059Lcxflfd encounter movfarpql49/15/2025 2:20 PM EDT Office Visit [facility] END[facility]CR[facility] [address] [place] [phone] Jamar Austin MD [address] [place] [address] ArrivedNOMS ENDOCRINOLOGYComment on above:Arrived Start: 10-06-2024 End: 377641-aezzyoazrjbmzt D3 [Mass/volume] in Serum or PlasmaVitamin D 25 hydroxy Lab Routine Vitamin D deficiency Expected: 10/06/2024 (Approximate), Expires: 10/06/2025NONM HealthcareComment on above:Expected: 10/06/2024 (Approximate), Expires: 10/06/2025Start: 10-06-2024 End: 54-78-3176Adunb metabolic 1998 panel - Serum or PlasmaBasic metabolic panel Lab Routine Encounter for dietary consultation Expected: 10/06/2024 (Approxima te), Expires: 10/06/2025 HealthcareComment on above:Expected: 10/06/2024 (Approximate), Expires: 10/06/2025Start: 10-06-2024 End: 72-99-9459Jihubydl AMCortisol AM Lab Routine Weight gain Expected: 10/06/2024 (Approximate), Expires: 10/06/2025NM HealthcareComment on above: Expected: 10/06/2024 (Approximate), Expires: 10/06/2025Start: 10-06-2024 End: 40-85-7737Mtxblzgijta [Units/volume] in Serum or PlasmaTSH Lab Routine Hair loss Weight gain Expected: 10/06/2024 (Approximate), Expires: 10/06/2025NM HealthcareComment on above:Expected: 10/06/2024 (Approximate), Expires: 10/06/2025Start: 10-06-2024 End: 57-59-1799Tzvirvpin (T4) free [Mass/volume] in Serum or PlasmaT4, free Lab Routine Hair loss Weight gain Expected: 10/06/2024 (Approximate), Expires: 10/06/2025NM HealthcareComment on above:Expected: 10/06/2024 (Approximate), Expires: 10/06/2025Start: 10-06-2024 End: 82-72-9849Fkqbdmkunoqxvwkf (T3) Free [Mass/volume] in Serum or PlasmaT3, free Lab Routine Hair loss Weight gain Expected: 10/06/2024 (Approximate), Expires: 10/06/2025[facility] Healthcare Work Phone: Comment on above:Expected: 10/06/2024 (Approximate), Expires: 10/06/2025Start: 09-17-2024 End: 22-88-2730Khfaemo encounter ssqljkoyd39/27/2025 2:20 PM EDT Office Visit [facility] [address] [place] [address] My Singh MD [address] [place] [address] ArrivedNOMS SWS DERMComment on above:ArrivedStart: 08-10-2024 End: 33-51-9427Yfjqjwc encounter bqrqwponj31/17/2025 1:00 PM EST Office Visit [facility] [address] [place] [address] My Singh MD [address] [place] [address] [facility] DERMStart: 03-18-2024 End: 26-14-2582Luvoyiq encounter avbqzjyjx92/25/2024 8:00 AM EDT Office Visit [facility] [address] [place] [address] Flynn Archibald, DO [address] [place] [address] [facility] BCP OBStart: 03-03-2024 End: 72-68-1323YQRXUJSZ Lab Routine PCOS (polycystic ovarian syndrome) Expected: 03/03/2024 (Approximate), Expires: 03/03/2025NOMS HealthcareComment on above: Expected: 03/03/2024 (Approximate), Expires: 03/03/2025Start: 03-03-2024 End: 41-72-6476Dgctmee encounter /10/2024 10:40 AM EDT Office Visit [facility] [address] [place] [phone] Flynn Archibald, DO [address] [place] [address] ArrivedNOMS BCP OBComment on above:ArrivedStart: 08-22-2023 End: 19-84-3115Ehkbqzn encounter mgvxarebc59/29/2024 11:50 AM EST Office Visit [facility] [address] [place] [phone] Flynn Archiabld, DO [address] [place] [address] [place] [address] [facility] OBCBC W Auto Differential panel - BloodCBC and differential Lab Routine PCOS (polycystic ovarian syndrome) Ordered: 03/03/2024 [facility] HealthcareComment on above:Ordered: 03/03/20240959TMAW-mgogkvfVOYX-zkirrxr Lab Routine PCOS (polycystic ovarian syndrome) Ordered: 03/03/2024[facility] Comment on above:Ordered: 03/03/2024EstradiolEstradiol Lab Routine Hormone imbalance Hot flashes Weight gain PCOS (polycystic ovarian syndrome) Ordered: 03/03/2024NONM HealthcareComment on above:Ordered: 03/03/2024Follicle stimulating hormoneFollicle stimulating hormone Lab Routine PCOS (polycystic ovarian syndrome) Ordered: 03/03/2024NONM HealthcareComment on above:Ordered: 03/03/2024hCG, quantitative, pregnancyhCG, quantitative, Lab Routine PCOS (polycystic ovarian syndrome) Ordered: 03/03/2024[facility] Healthcare Work Phone: comment on above:Ordered: 03/03/2024Hemoglobin A1c/Hemoglobin.total in BloodHemoglobin A1c Lab Routine Hormone imbalance Hot flashes Weight gain PCOS (polycystic ovarian syndrome) Ordered: 03/03/2024NONM HealthcareComment on above:Ordered: 03/03/2024Luteinizing hormoneLuteinizing hormone Lab Routine PCOS (polycystic ovarian syndrome) Ordered: 03/03/2024NONM HealthcareComment on above:Ordered: 03/03/2024rogesteroneProgesterone Lab Routine Hormone imbalance Hot flashes Weight gain PCOS (polycystic ovarian syndrome) Ordered: 03/03/2024NONM HealthcareComment on above:Ordered: 03/03/2024 Thyrotropin [Units/volume] in Serum or PlasmaTSH Lab Routine PCOS (polycystic ovarian syndrome) Ordered: 03/03/2024NONM HealthcareComment on above:Ordered: 03/03/2024Thyroxine (T4) free [Mass/volume] in Serum or PlasmaT4, free Lab Routine PCOS (polycystic ovarian syndrome) Ordered: 03/03/2024[facility] Comment on above:Ordered: 03/03/2024 Payers DatePayer CategoryPayerPolicy [id number] [facility] [id number]87.1.13.693.2.7.3.842320.86127-91-0747Cdinuow [id number] 2.840.1.335188.3.57[id number] 2.0.1.785223.3.57[id number] 2.840.1.967406.3.57[id number] 2.160.1.365288.3.57[id number] 2.16840.1.235259.3.57[id number] 2.16840.1.938558.3.57[id number] 2.16840.1.225832.3.57[id number] 2.16840.1.319812.3.57[id number] 2.16.840.1.884791.3.57[id number] 2.16.840.1.712679.3.57[id number] 2.16.840.1.598569.3.57[id number] 2.16.840.1.881744.3.579.[id number] 2.16.840.1.168720.3.57[id number] 2.16.840.1.919845.3.579.2.[id number] Social History DateTypeDetailFacilityTobacco smoking status NHISTobacco smoking consumption unknownNONM HealthcareStart: 60-98-5392Exp Assigned At BirthNot on [facility] HealthcareStart: 08-08-2023 End: 89-18-0504Woqjpp identityNot on [facility] HealthcareStart: 57-69-4049Tpvsejc smoking status NHISNever smoked tobaccoNONM HealthcareStart: 62-83-9010Uuafoln use and exposureSmokeless tobacco non-userNONM HealthcareStart: 08-08-2023 End: 34-27-5671Noxuzqi of Social functionNOMS HealthcareStart: 10-21-2023 End: 15-44-0614Zywpmhtsy beverage intakeLifetime non-drinker (finding)[facility] Healthcare Clinical Notes 05-02-2020 to 10-06-2024 Note Date & PgjoPbmsMjfiiduq86-15-3874 History of Present illness Narrative* Jamar Austin MD - 10/06/2024 2:20 PM EDT Rajiv Tovar is a 29 y.o. female [...] will do 1 mg DST rule out Bailey syndrome. Encounter for dietary consultation - Basic metabolic panel; Future Vitamin D deficiency - Vitamin D 25 hydroxy; Future I will check the level and start supplements if needed. Follow up in about 1 year (around 10/06/2025). documented in this encounterSaint Louis University HospitalGknnxumtiv77-48-8554 History of Present illness Narrative* My Singh MD - 09/17/2024 2:20 PM EDT Images from the original note were not [...] 1 year follow up documented in this encounterSaint Louis University HospitalOwtehbsoyt57-22-8710 History of Present illness Narrative* Marielle Morelos LPN - 03/03/2024 10:40 AM EDT Reason for Appointment: Patient ID: Rajiv Tovar is a 28 y.o. female who presents for hormone imbalance (Pt present todayto check hormone levels.) Patient presents today for Acute Visit. MEDICATIONS Current Outpatient Medications Medication Instructions ARIPiprazole (Abilify) 5 MG tablet Every 24 hours busPIRone (Buspar) 15 MG tablet Every 12 hours drospirenone-ethinyl estradiol (Loreto, Ocella) 3-0.03 MG tablet 1 tablet, Oral, Daily hydrOXYzine pamoate (Vistaril) 50 MG capsule TAKE 1 CAPSULE BY MOUTH EVERY 6 HOURS NEEDED Efyfwy87 day hyoscyamine (Levsin) 0.125 MG SL tablet [...] nursing note reviewed. Exam conducted with a instrument repairer steam plant present. Vitals: Estimated body mass index is [...] hot flashes all the time. Pt given labsto have obtained. Pt recently started seeing a therapist and feeling much better with mood. Pt to return as needed will consult pt when labs return. Documented by Marielle Morelos LPN on behalf of: Flynn Archibald DO documented in this encounterSaint Louis University HospitalNfusjxbfoq66-49-5378 History of Present illness Narrative* My Singh MD - 08/08/2023 9:50 AM EST Follow up Diagnosis: HSV Location: left hand [...] 1 year (follow up) documented in this encounterSaint Louis University HospitalAgjaqgncki85-30-6043 NoteCONSULTATION CHIEF COMPLAINT: Mid-back pain, right low back [...] would like to proceed. CC: Dr. Alon Jensenevue Whotxhoi89-91-6666 NoteCONSULTATION CHIEF COMPLAINT: Mid-back pain, right low back [...] CC: Dr. Alon Weber [facility] Signed and Approved by: DR AKASH MARTINEZ . 07/25/2021 08:02:00[facility]09-07-2021 NoteInfectious Disease COVID-19: How to Protect Yourself and Others Know how it spreads ? There is currently no vaccine to prevent coronavirus disease 2019 (COVID-19). ? The best way to prevent illness is to avoid being exposed to this virus. ? The virus is thought to spread mainly from wvjces-ny-njqesj. ? Between people who are in close [...] are not readily available, use a hand licensed psychologist that contains at least 60% alcohol. Cover [...] are at higher risk of getting very sick.www.cdc.gov/co ronavirus/2019-ncov/srcj-sessj-jetavfgbkmc/lndimq-qa-ywtaix-risk.html Cover your mouth and nose with a [...] or sneeze or use the inside of yourelbow. ? Throw used tissues in the trash. ? Immediately wash your hands with soap and water for at least 20 seconds. If soap and water are not readily available, clean your hands with a hand licensed psychologist that contains at least 60% alcohol. Clean and disinfect ? Clean AND disinfect frequently touched surfaces daily. This includes tables, doorknobs, light switches, countertops, handles, desks, phones, keyboards, toilets, faucets, and sinks. www.cdc.gov/coron avirus/2019-ncov/hssbzpq-zlchqlw-evbr/sjiofpwenwow-mjjp-agcv.html ? If surfaces are dirty, clean them: [...] 10/06/2019 Document Revised: 12/31/2019 Document Reviewed: 12/31/2019 [employer] Patient Education ? 2020 [employer]. COVID-19 Frequently Asked Questions COVID-19 (coronavirus disease) is an infection that is caused by a large family of viruses. Some viruses cause illness in people and others cause illness in animals like camels, cats, and bats. In some cases, the viruses that cause illness in animals can spread to humans. Where did the coronavirus come from? In May 2019, [place] told the World Health Organization (WHO) of several cases of lung disease (human respiratory illness). These cases were linked to an open seafood and livestock market in the city of [facility]. The link to the seafood and livestock market suggests that the virus may have spread from animals to humans. However, since that first outbreak in May, the virus has also been shownto spread from person to person. What is the name of the disease and the virus? Disease name Early on, this disease was called novel coronavirus. This is because scientists determined that thedisease was caused by a new (novel) respiratory virus. The World Health Organization (WHO) has now named the disease COVID-19, or coronavirus disease. Virus name The virus that causes the disease is called severe acute respiratory syndrome coronavirus 2 (SARS-CoV-2). More information on disease and virus naming World Health Organization (WHO): www.who.int/emergencies/diseases/xxqvf-npfaicutzes-9366/technical-g uidance/bodycv-inp-kqcahkjevdp (more content not included)...[facility]11-12-2020 [id number]#1.00CD:127 [facility]11-09-2020 Note [id number]:127[facility] Evaluation note* Diagnosis Herpesviral vesicular dermatitis- Primary Dermatitis [...] section and content) DATE CREATED AUTHOR 03/05/2021 [facility] DATE CREATED AUTHOR AUTHOR'S ORGANIZ ATION 04/10/2021 [facility] DATE CREATED AUTHOR AUTHOR'S ORGANIZ ATION 07/02/2022 [facility] DATE CREATED AUTHOR AUTHOR'S ORGANIZ ATION 03/15/2024 [facility] DATE CREATED AUTHOR AUTHOR'S ORGANIZ ATION 10/08/2024 [facility] Reason for Visit (unrecogniz ed section and content) ReasonCommentsFollow-upReasonCommentshormone imbalancePt present today to check hormone levels.ReasonCommentsThyroid ProblemNEW MAR 17 LABS NO REFERRAL Care Teams (unrecognized sec tion and content) Team MemberRelationshipSpecialtyStart DateEnd Alon Weber MD [address] [place] [facility] [place] [address] PCP - GeneralFamily Medicine08/22/23Team MemberRelationshipSpecialtyStart DateEnd Date Alon Weber MD [address] [place] [facility] [place] [address] PCP - GeneralFamily Medicine08/22/23Team MemberRelationshipSpecialtyStart DateEnd Alon Weber MD [address] [place] [facility] [place] [address] PCP - GeneralFamily Medicine08/22/23Team MemberRelationshipSpecialtyStart DateEnd Alon Weber MD [address] [place] [facility] [place] [address] PCP - GeneralFamily Medicine08/22/23Team MemberRelationshipSpecialtyStart DateEnd Date Alon Weber MD [address] [place] [facility] [place] [address] PCP - GeneralFamily Medicine08/22/23Team MemberRelationshipSpecialtyStart DateEnd Date Alon Weber MD [address] [place] [facility] [place] [address] PCP - GeneralFamily Medicine08/22/23Team MemberRelationshipSpecialtyStart DateEnd Date Alon Weber MD [address] [place] [address] PCP - [facility]08/22/23 FOR RECORDS PERTAINING TO PATIENTS WHO ARE [...] BE BASED ON THE PRIMARY CLINICAL RECORDS. [facility]. provides no warranty or guarantee of the accuracy or completeness of information in this document.
[2025-04-19 07:58] VITALS: BP 127/88; PULSE 96; TEMP 36.6; O2SAT 99
[2025-04-19] MEDS: 0.9 % SODIUM CHLORIDE 500 ML IV (08:24)
[2025-04-19] MEDS: LIDOCAINE HCL 2% 400 MG/20 ML MDV 16 ML INJ (09:37)
[2025-04-19] MEDS: BUPIVACAINE HCL 0.25% PF 25 MG/10 ML VIAL 4 ML INJ (09:37)
[2025-04-19] MEDS: METHYLPREDNISOLONE ACETATE 40 MG/ML VIAL 80 MG INJ (09:37)
--- NOTE | 2025-04-19 09:38 | P.ON_ITS ---
Date of procedure: 04/19/25 Pre-op diagnosis: Pain due to lumbar spondylosis without myelopathy Post-op diagnosis: same as pre-op Procedure: Procedure: Bilateral L4-5, L5-S1 radiofrequency ablation Medications: Bupivacaine 0.25% 4cc, depomedrol 80mg, lidocaine 2% 6cc The patient was seen and examined in the preoperative holding area.? The site was marked.? Written informed consent was obtained and placed on the chart.? The patient was brought to the medical procedure unit and placed in the prone position.? A timeout was completed verifying correct patient, procedure, positioning, and special requirements.? The skin overlying the target points, the designated medial branch, were prepped and draped in the usual sterile fashion.? The target point was achieved with a 20-gauge 15 cm with a 10 mm curved active tip radiofrequency cannula under direct fluoroscopic visualizati on.? The needle was inserted at level L4 on the right side. Needle tip position was confirmed with lateral fluoroscopic position.? Motor stimulation was carried out at 2 Hz up to 5 volts with the absence of extremity activity.? This was repeated at level L5, S1 on right side.?? Sensory stimulation was carried out.? Concordant pain was realized at the above- mentioned sites.? Then radiofrequency lesioning was carried out times 90 seconds at 80 degrees times 2 lesions at each level.? The radiofrequency probe was removed prior to cannula removal.? The above-mentioned injectate was placed in 1 mL increments.? The needle was removed. The same procedure, with the same steps, was then completed on the left side at the same levels. Insertion sites were covered.? The patient was taken to the postoperative recovery area and monitored for an appropriate length of time before being found suitable for discharge in the company of a responsible adult. Anesthesia: MAC Surgeon: Harley Maldonado Pathology: none sent Condition: stable Disposition: no change
[2025-04-19 09:39] VITALS: BP 107/75; PULSE 85; TEMP 36.6; O2SAT 99
[2025-04-19 09:49] VITALS: BP 110/68; PULSE 83; O2SAT 97
== END 2025-04-19 10:04 | disposition home or self-care (01) ==
PROVIDERS: PCP Family Medicine; Visit Provider Anesthesiology
DX: M47.816 Spondylosis without myelopathy or radiculopathy, lumbar region (principal); M54.50 Low back pain, unspecified
CPT/HCPCS: 36415; 64635; 64636; 84703; J0665; J1010; J2704

== ENCOUNTER 2025-05-26 13:48 | Outpatient (OUT) | payer BC, SELFPAY ==
--- OUTSIDE RECORDS SUMMARY | 2025-05-26 13:51 | XMS_ITS | Clinical Summary ---
Author Organization [facility] Healthcare Address [address] [place] [address] Care Team Providers Care System Safety Manager Name Role Phone Sixto Gomez MD Primary Care Provider [phone] Allergies Active AllergyReactionsCriticalityNoted DateCommentsPenicillin G008/01/2023 Other Reaction(s): hives Penicillin G HtfzjuBppzRrj35/16/2674HfozloxrbdcXyeek60/19/2014Sulfa Antibiotics 08/01/2023 Other Reaction(s): hives Sulfamethoxazole-MeclapuuemtkEditIwb83/16/2024 Medications MedicationSigDispense QuantityRefillsLast FilledStart DateEnd DateStatus ibuprofen [...] Problems No known active problems Encounters DateTypeDepartmentCare KcigEacqxflzrge12/04/2025Refill [facility] [address] [place] [address] [place] [phone] Flynn Archibald, Uses controlfrom Last 3 Months Family History Medical HistoryRelationNameCommentsBreast cancerFather's SisterLeukemiaFather's SisterLung cancerMaternal GrandfatherRelationNameStatusCommentsFather's Sister Maternal Grandfather Social History Tobacco UseTypesPacks/DayYears UsedDateSmoking Tobacco: NeverSmokeless Tobacco: Never Tobacco Cessation:Counseling Given: Not Answered Alcohol UseStandard Drinks/WeekCommentsNever0 (1 standard drink = 0.6 oz pure alcohol)CommentsNoSex and Gender InformationValueDate RecordedSex Assigned at BirthNot on fileLegal QgfNsrpun60/15/2023 10:13 PM EDTGender IdentityNot on fileSexual OrientationNot on file Last Filed Vital Signs Vital SignReadingTime TakenCommentsBlood Amcgnrqa497/7404 2:25 PM EDT Yffrc5207 2:25 PM EDTTemperature--Respiratory Apwk943310/06/2024 2:25 PM EDTOxygen Iabmklmakx31%10/06/2024 2:25 PM EDTInhaled Oxygen Concentration-- Ztcadz70.9 kg (174 lb)10/06/2024 2:25 PM LAMAldxoy263.6 cm (5' 6 )10/06/2024 2:25 PM EDTBody Mass Index28.0810/06/2024 2:25 PM EDT Plan of Treatment DateTypeDepartmentCare Team (Latest Contact Info)Nhxclwvwgul34/25/2026 2:20 PM EDTOffice Visit [facility] [address] [place] [phone] Vaishali Singh MD [address] [place] [address] Insurance Care Teams Team MemberRelationshipSpecialtyStart DateEnd Sixto Gomez MD PCP - GeneralFamily Medicine08/22/23
--- OUTSIDE RECORDS SUMMARY | 2025-05-26 13:52 | XMS_ITS | CCD ---
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 Name Role Phone MICHELLE, DR AKASH [...] Murray Consulting Unavailable Unavailable Primary Care Provider UnavailAlon Looney MD Primary Care Provider [phone] LEWIS SEWELL Attending Unavailable FLYNN ARCHIBALD Attending Unavailable MY SINGH Attending Unavailable JAMAR AUSTIN Attending Unavailable JAMAR AUSTIN Referring Unavailable Alon Weber MD Primary Care Provider [phone] Erica POLK, Harley Simmons Attending Unavailable Allergies Allergy ClassificationReported Allergen(s)Allergy TypeDate of OnsetReaction(s) Facility (2 sources)HYDROcodoneDrug Tytploa79-38-0004Jcx[facility] (2 sources)oxyCODONEDrug Tmhqvbr61-60-4662Ykj [facility] Repository (2 sources)PenicillinsDrug allergy (disorder)31-89-7150Doy [facility] Repository (4 sources)Acetaminophen / HYDROcodoneDrug Mpvgdwu08-52-9750JgllbxeBLDB [facility] (4 sources)HYDROcodoneDrug Vbzvpwp60-06-7148WtwxpALVZ Healthcare Work Phone: (3 sources)oxyCODONEDrug Ivkzxxv97-03-6672IihdiBDMZ Healthcare (14 sources)Penicillin GDrug Arfqdbo73-23-0545GAQE [facility] (14 sources)Penicillin G sodiumAllergy to vxnxovynf84-09-2597EqacMAPN [facility] (14 sources)PenicillinsDrug Mdwaiez45-29-5034TvlknZOWX Healthcare (14 sources)Sulfamethoxazole / TrimethoprimDrug Hvgzqut81-90-6901HgvfAWBO [facility] (14 sources)Sulfonamides (Antibiotic)Drug Cokcnzh67-58-5315THWR [facility] Medications Current Medications MedicationDrug Class(es)DatesSig (Normalized)Sig (Original)ARIPiprazole 5 mg oral tablet (9 sources)Atypical AntipsychoticARIPiprazole (Abilify) 5 MG tablet 1 (one) time each day at the same time ActivebusPIRone hydrochloride 15 mg oral tablet (11 sources)busPIRone (Buspar) 15 MG tablet every 12 (twelve) hours Active drospirenone 3 mg / ethinyl estradiol 0.03 mg oral tablet (13 sources)Progestin, EstrogenStart: 87-66-5543upzeqluhpkbz-ethinyl estradiol (Loreto, Ocella) 3-0.03 MG tablet Indications: Uses control TAKE 1 TABLET BY MOUTH EVERY DAY IN THE MORNING 84 tablet 3 03/24/2024 ActiveStart: 04-24-2023 End: 68-98-4452cuqlajpkswgq-ethinyl estradiol (Loreto, Ocella) 3-0.03 MG tablet Indications: Uses control Take 1 tablet by mouth in the morning. 360 tablet 04/24/2023 04/23/2024 ActiveEthinyl Estradiol / Ferrous fumarate / Norethindrone (9 sources)Estrogentake 1 tablet by mouth once dailynorethindrone-ethinyl estradiol-iron (Lo Loestrin) 1 MG-10 MCG / 10 MCG tablet Take 1 tablet by mouth Daily ActivehydrOXYzine pamoate 50 mg oral capsule (11 sources)AntihistaminehydrOXYzine pamoate (Vistaril) 50 MG capsule Active hyoscyamine sulfate 0.125 mg sublingual tablet (9 sources)hyoscyamine (Levsin) 0.125 MG SL tablet DISSOLVE 1 TABLET UNDER TONGUE 4 TIMES DAILY NEEDED Activeibuprofen 800 mg oral tablet (11 sources)Nonsteroidal Anti-inflammatory Drugtake 1 tablet by mouth every eight hours as neededibuprofen 800 MG tablet Take 1 tablet by mouth every 8 (eight) hours if needed ActivelamoTRIgine 25 mg oral tablet (9 sources)Mood Stabilizer, Anti-epileptic AgentlamoTRIgine (LaMICtal) 25 MG tablet Bjnvnk20 hr metFORMIN hydrochloride 500 mg extended release oral tablet (6 sources)BiguanideStart: 13-29-2463gykd 1 tablet by mouth every twenty-four hours at mealtimemetFORMIN XR (Glucophage-XR) 500 MG 24 hr tablet Indications: Hormone imbalance , Insulin resistance Take 1 tablet (500 mg) by mouth in the evening. Take with meals Do not crush, chew, or split. 30 tablet 11 03/19/2024 Activeondansetron 4 mg disintegrating oral tablet (9 sources)Serotonin-3 Receptor AntagonistStart: 61-27-7668yibgbbcpjvx ODT (Zofran-ODT) 4 MG disintegrating tablet every [...] Nucleoside Analog DNA Polymerase InhibitorStart: 04-06-2024 End: 75-01-2778vnht 1 tablet by mouth once dailyvalACYclovir (Valtrex) 500 MG tablet Indications: Herpesviral vesicular dermatitis Take 1 tablet daily, by mouth, 30 days 30 tablet 11 09/17/2024 ActiveStart: 11-19-2023 End: 36-20-2362sufz 1 tablet by mouth once dailyvalACYclovir (Valtrex) 500 MG tablet Indications: Herpesviral vesicular dermatitis Take 1 tablet daily, by mouth, 30 days 30 tablet 11 11/19/2023 03/03/2024 DiscontinuedStart: 08-08-2023 take 1 tablet by mouth once dailyvalACYclovir (Valtrex) 500 MG tablet Indications: Herpesviral vesicular dermatitis Take 1 tablet daily, by mouth, 30 days 30 tablet 08/08/2023 ActiveStart: 52-32-8102deif 1 tablet by mouth once dailyvalACYclovir (Valtrex) [...] sources)Patient encounter status; Translations: [Dietary counseling and surveillance]19-31-5121WlcifrppYalbwqxznsp deficiencies (2 sources)Vitamin D deficiency; Translations: [Vitamin D deficiency, unspecified]62-14-4640ZnxjeyfSlcpb endocrine disorders (2 sources)Polycystic ovary syndrome; Translations: [Polycystic ovarian syndrome]43-13-5461LzghtucXkhrw nutritional; endocrine; and metabolic disorders (2 sources)Weight increased; Translations: [Abnormal weight gain]10-06-2024 EpisodicOther skin disorders (2 sources)Loss of hair; Translations: [Nonscarring hair loss, unspecified] 10-25-4877HhzxxizrQblshlnemgp; intervertebral disc disorders; other back problems (6 sources)Spondylosis without myelopathy or radiculopathy, lumbar region; Translations: [Other intervertebraldisc degeneration, thoracic region]Onset: 03-09-2241GakecnxWrskojuhxowx (2 sources)COUGH, UNSPECIFIED; Translations: [COUGH, UNSPECIFIED]Onset: 33-07-2237Dvyapngaftdi (1 source)CONTACT W/AND (SUSP) EXPOS COVID-19; Translations: [CONTACT W/AND (SUSP) EXPOS COVID-19]Onset: 18-75-5141Qjqeyjqgziqu (1 source)LOW BACK PAIN, UNSPECIFIED; Translations: [LOW BACK PAIN, UNSPECIFIED] Onset: 93-06-3869Sotzx infection (4 sources)Herpesviral vesicular dermatitis; Translations: [Herpesviral vesicular dermatitis]63-69-6481Jovnfgex Past or Other Problems Problem ClassificationProblemDateDocumented DateEpisodic/ChronicAbdominal pain (4 sources)Unspecified abdominal pain; Translations: [UNSPECIFIED ABDOMINAL PAIN]Onset: 99-08-2716ZeochdqrUfrnzuijrsdmk mental health disorders (2 sources)Rolle; Translations: [Other symptoms and signs involving emotional state]11-32-1917BqhyjvflLicbf aftercare (1 source)Other salvage determiner (current) drug therapy; Translations: [OTH MCFP CURRENT DRUG THERAPY]Onset: 45-47-0907EuwpucikEaney endocrine disorders (2 sources)Disorder of endocrine system; Translations: [Endocrine disorder, unspecified]76-31-1182SxghfdymDpmfi nutritional; endocrine; and metabolic disorders (2 sources)Weight gain; Translations: [Abnormal weight gain]50-94-4818Fxabtvea Other upper respiratory infections (1 source)Acute upper respiratory infection, unspecified; Translations: [ACUTE UP RESPIRATORY INFECTION UNS]Onset: 10-13-5807HsbdzdjbJdtgragw codes; unclassified (2 sources)Flushing; Translations: [Flushing]97-52-3828IiintluhHqmldzkoierm (1 source)COUGH, UNSPECIFIED; Translations: [COUGH, UNSPECIFIED]Onset: 09-03-2021 Results Test NameValueInterpretationReference RangeFacilityALL CBC WITH AUTO DIFFon 13-33-0989VRBXTZRBF ABSOLUTE AUTO0.1NOMS HealthcareBasophils/100 WBC (Bld)1.2 % 0.2 - 2.0 %[facility] HealthcareEosinophils/100 WBC (Bld)2.7 %0.9 - 7.0 %[facility] HealthcareErythrocyte distribution width (RBC) [Ratio]11.9 %11.0 - 15.0 %[facility] HealthcareHematocrit (Bld) [Volume fraction]44.5 %36.0 - 48.0 %[facility] Hemoglobin (Bld) [Mass/Vol]15.0 g/dL12.0 - 16.0 g/dLNOMS HealthcareIMMATURE GRANULOCYTES ABS AUTO0.01NOMS HealthcareImmature granulocytes/100 WBC (Bld)0.2 % 0.0 - 0.5 %[facility] CampusLYMPHOCYTES ABSOLUTE AUTO2.4N[facility] Lymphocytes/100 WBC (Bld)39.7 %20.5 - 60.0 %[facility] HospitalH (RBC) [Entitic mass]31.3 pg26.7 - 34.0 pgNOResearch Belton HospitalHC (RBC) [Mass/Vol]33.7 g/dL29.9 - 35.2 g/dLSainte Genevieve County Memorial HospitalV (RBC) [Entitic vol]92.7 fL81.0 - 99.0 fLSamaritan HospitalMONOCYTES ABSOLUTE AUTO0.3NOWY HealthcareMonocytes/100 WBC (Bld)5.2 % 1.7 - 12.0 %[facility] CampusNEUTROPHILS ABSOLUTE AUTO3.1N[facility] Neutrophils/100 WBC (Bld)51.0 %43.0 - 75.0 %Samaritan HospitalPlatelet mean volume (Bld) [Entitic vol]10.4 fL9.5 - 13.5 fLSamaritan HospitalTBH EO #0.2N[facility]S [facility] TBH CSX220MMBH [facility] RBC4.80NOFreeman Cancer Institute WBC6.0NOSt. Louis VA Medical Center CLINISYNCNOWY HealthcareUS PELVIS W/ TRANSVAGINALon 82-60-9917[place]zk[place] [address] Ultrasound Report Signed Patient: RAJIV TOVAR MR#: [id number] : 1995 Acct:[id number] Age/Sex: 28 / F ADM Date: 09/10/23 [facility]: [facility] Attending Dr: Flynn Archibald D.O. Ordering Physician: Flynn Archibald D.O. Date of Service: 09/10/23 Procedure(s): US pelvis w/ transvaginal Accession Number(s): [id number] cc: Flynn Archibald D.O.; Alon Weber M.D. [address] [address] Patient Name: RAJIV TOVAR MRN: [id number] date: 1995 Sex: F Assigned Patient Location: [facility] Current Patient Location: [facility] Accession/Order Number: [id number] Exam Date: 09/10/2023 08:28 Report Date: 09/10/2023 09:41 At the request of: FLYNN ARCHIBALD Procedure: US pelvis w/ transvaginal EXAM: Pelvic ultrasound HISTORY: . PELVIC PAIN . COMPARISON: None. TECHNIQUE: Transabdominal and transvaginal scanning was performed FINDINGS: Scanning of the pelvis demonstrates the uterus to measure 8.1 x 3.6 x 4.7 cm. Uterus is anteverted. Endometrial complex measures 5 mm. Right ovary measures 3.2 x 3.3 x 1.5 cm. Color-flow is noted. No masses are noted. Follicles are noted. Left ovary measures 2.6 x 2.5 x 1.7 cm. Color-flow is noted. Follicles are noted. No fluid is noted in the cul-de-sac. US/US pelvis w/ transvaginal IMPRESSION: Normal ultrasound of the pelvis. Electronically authenticated by: TONE MEJIA Date: 09/10/2023 09:41 Dictated By: Tone Mejia M.D. Signed By: 09/10/2343 DD/ TD/TT: Branch Associate Teller:TBHRadiology, Radiologist, MD - 09/10/2023 [place] [address] Ultrasound Report Signed Patient: RAJIV TOVAR MR#: [id number] : 1995 Acct:[id number] Age/Sex: 28 / F ADM Date: 09/10/23 Loc: [facility] Attending Dr: Flynn Archibald D.O. Ordering Physician: Flynn Archibald D.O. Date of Service: 09/10/23 Procedure(s): US pelvis w/ transvaginal Accession Number(s): [id number] cc: Flynn Archibald D.O.; Alon Weber M.D. The [address] [address] Patient Name: RAJIV TOVAR MRN: [id number] date: 1995 Sex: F Assigned Patient Location: [facility] Current Patient Location: [facility] Accession/Order Number: [id number] Exam Date: 09/10/2023 08:28 Report Date: 09/10/2023 09:41 At the request of: FLYNN ARCHIBALD Procedure: US pelvis w/ transvaginal EXAM: Pelvic ultrasound HISTORY: . PELVIC PAIN . COMPARISON: None. TECHNIQUE: Transabdominal and transvaginal scanning was performed FINDINGS: Scanning of the pelvis demonstrates the uterus to measure 8.1 x 3.6 x 4.7 cm. Uterus is anteverted. Endometrial complex measures 5 mm. Right ovary measures 3.2 x 3.3 x 1.5 cm. Color-flow is noted. No masses are noted. Follicles are noted. Left ovary measures 2.6 x 2.5 x 1.7 cm. Color-flow is noted. Follicles are noted. No fluid is noted in the cul-de-sac. US/US pelvis w/ transvaginal IMPRESSION: Normal ultrasound of the pelvis. Electronically authenticated by: TONE MEJIA Date: 09/10/2023 09:41 Dictated By: Tone Mejia M.D. Signed By: 09/10/2343 DD/ TD/TT: Branch Associate Teller: ZAK HealthcareRadiology Study observation (narrative)NOMS HealthcareUS PELVIS W/ TRANSVAGINALOrdered By: Radiologist Radiology on 89-38-8293OTCA [employer] Work Phone: [phone]-25 PCR (CVDTB)on 81-87-8610TEOY-CoV-2 (COVID- 19) RNA MARY+probe Ql (Unsp spec)Not detectedNormalNOT DETECTEDThe [facility] HospitalComment on above:Result Comment: This test is not yet approved or cleared by the [place] FDA. When there are no FDA-approved or cleared tests available, and other criteria are met, FDA can make tests available under an emergency access mechanism called an Emergency Use Authorization (EUA). The EUA for this test is supported by the [place] of Health and Human Service's (HHS's) declaration [...] consistent with SARS-CoV-2.Performed By: #### CVDTBH #### [facility] [address] [place] [address] Dr. Karlos Cummings STREP CULTUREon 09-03-2021. pyogenes Ag Ql (Unsp spec) Culture Observations: NEGATIVE FOR GROUP A STREPTOCOCCUS.NormalThe [facility] Community Hospitalment on above: Performed By: #### SSCRN, GRASTCX #### [facility] [address] [place] [address] Dr. Karlos Cummings AND B AGon 25-37-9222TGSADWXNXSKWR [facility] SystemComment on above:Result Comment: Negative for Flu A protein angiten. Infection due to Flu A cannot be ruled out. FluA angiten in the sample may be below the detection limit of the test.Performed By: #### INFLUAB #### [facility] [address] [place] [address] Dr. Karlos AugustinINFLUBNEGHSMercy Health Allen HospitalCombeaumont hospital on above: Result Comment: Negative for Flu B protein antigen. Infection due to Flu B cannot be ruled out. FluB antigen in the sample may be below the detection limit of the test.Performed By: #### INFLUAB #### [facility] [address] [place] [address] Dr. Karlos Cummings AGNegativeNormalNEGATIVE SEE COMMENTThe [facility] HospitalComment on above:Performed By: #### INFLUAB #### [facility] [address] [place] [address] Dr. Karlos Price AGNegativeNormalNEGATIVE SEE COMMENTThe [facility] on above:Performed By: #### INFLUAB #### [facility] [address] [place] [address] Dr. Yilan ChangINTERNAL CONTROLSWithin Normal LimitsNormalWithin Normal Limits The [facility] HospitalComment on above:Performed By: #### INFLUAB #### [facility] [address] [place] [address] Dr. Karlos AugustinSTREPT SCREENon 57-26-5166GEVKX SCREEN ANegativeNormalNEGATIVEThe [facility] HospitalComment on above:Performed By: #### SSCRN, GRASTCX #### [facility] [address] [place] [address] Dr. Karlos Healy HCG QUALon 53-36-9377HDRFWTKNP, QUALNegativeNormalNEGATIVE The [facility] HospitalComment on above:Performed By: #### PREG #### [facility] [address] [place] [address] Dr. Karlos Healy HCG QUALon 59-67-3356OILJNKLIJ, QUALNegativeNormalNEGATIVE The [facility] HospitalComment on above:Performed By: #### PREG #### [facility] [address] [place] [address] Dr. Karlos AugustinCT ABDOMEN AND PELVIS W IV CONTRASTon 97-20-9171PX ABDOMEN AND PELVIS W IV CONTRASTUnSelect [facility] of Radiology [address] [place] [id number] Patient Name: RAJIV TOVAR : 1995 Sex: F Age: Race: White Pt. Location: [facility] Patient Status: D Ordered Date: 03/21/2021 4:00:00 PM Completed Date: 04/05/2021 03:49 PM Requesting Provider: ДМИТРИЙ CALLAHAN Attending Provider: ДМИТРИЙ CALLAHAN Report Copy To: ALON WEBER Signs & Symptoms: R10.31 Right lower quadrant pain I10 History: [place] Is patient on meds for HTN or DM? 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 Per [employer] for CPT 98480 Ref#[id number] Med Nec-Passed *SLA Comments: Exam: CT ABDOMEN [...] Electronically signed: Noemy Stanley M.D.. Transcribed by: [email or web address], User Resident: Electronically Signed by: NOEMY STANLEY @ 04/07/2021 01:25 PMNormalThe [facility] HospitalCCC CHEST 2 [facility] 52-32-4350VIM CHEST 2 [facility] Department of Radiology [address] [place] [phone] Patient Name: RAJIV TOVAR : 1995 Sex: F Age: Race: White Pt. Location: [facility] Patient Status: D Ordered Date: 03/21/2021 2:25:00 PM Completed Date: 03/21/2021 02:22 PM Requesting Provider: ДМИТРИЙ CALLAHAN Attending Provider: Report Copy To: Signs & Symptoms: R07.81 Pleurodynia I10 History: [place] Comments: right ribs pain Exam: [facility] CHEST 2 S [facility] CHEST 2 S 03/21/2021 2:22 PM CLINICAL INDICATIONS: R07.81 Pleurodynia [...] disease Electronically signed: Cyril Olivo. Transcribed by: [email or web address], User Resident: Electronically Signed by: CYRIL OLIVO @ 03/22/2021 02:39 [facility] HospitalComment on above:Order Comment: right ribs painCoding Summary.on 28-55-4963Puyepn Summary. CD:[id number]+PGhlYWQ+[id number]mj FN4JSdgP0VyqxWd [file] OiBj (more content not included)...NormalPromedica Toledo HospitalAuto Diffon 26-43-5036Adiqketbj/100 WBC (Bld)0.4 %Normal0.0-2.0[facility] Comment on above:Order Comment: Order Added by Discern Expert.Performed By: #### 9528033, 8269416, 38218516, 54324404, 96537570, 94108436, 5440448, 1729587, 4538690, 5871173 ####[facility] [address] [place], [place] [address]Rmgngjgqx/Leukocytes Auto (Bld) [Pure # fraction]0.0 E9/L Normal0.0-0.2FDoctors HospitalComment on above:Order Comment: Order Added by Discern Expert.Performed By: #### 6481236, 1075680, 07628229, 09981784, 46761592, 00000294, 8723555, 9785236, 7681407, 6402000 ####[address] [address]Wilnyulafez/100 WBC (Bld)0.6 % Normal0.0-8.0Prom[facility] Toledo HospitalComment on above:Order Comment: Order Added by Discern Expert.Performed By: #### 1868357, 2036024, 19009510, 35723423, 82211733, 17078848, 4650843, 9616463, 6461259, 2531976 ####[facility] [address] [place], [place] [address]Zbtmlifkcje/Leukocytes Auto (Bld) [Pure # fraction]0.0 E9/LNormal0.0-0.5FDoctors HospitalComment on above:Order Comment: Order Added by Discern Expert.Performed By: #### 4854265, 0955981, 76095566, 98922728, 97311326, 36767870, 5901681, 8878591, 0059730, 1908529 ####[address] [address]Ggulrvcnypu/100 WBC (Bld)7.9 %Low14.0-50.0Prom[facility] Toledo HospitalComment on above:Order Comment: Order Added by Discern Expert. Performed By: #### 4075277, 7737679, 56814334, 11976271, 11220036, 13588747, 5192026, 7553942, 6505647, 9181922 ####[address] [address]Bcampckrpbq/Leukocytes Auto (Bld) [Pure # fraction] 0.4 E9/LLow1.0-4.0[facility] HospitalComment on above:Order Comment: Order Added by Discern Expert.Performed By: #### 2766400, 5317306, 80758704, 63465925, 24879277, 09062866, 1639526, 5546440, 5871088, 6180417 ####[address] [address]Jhoqtocds/100 WBC (Bld)5.5 %Normal4.0-14.0[facility] HospitalComment on above:Order Comment: Order Added by Discern Expert.Performed By: #### 7677886, 9132099, 22736011, 92530368, 63167251, 38175615, 4788456, 2587362, 5018430, 7079432 ####[address] [address] Monocytes/Leukocytes Auto (Bld) [Pure # fraction]0.3 E9/LNormal0.2-1.0[facility] HospitalComment on above:Order Comment: Order Added by Discern Expert.Performed By: #### 3942170, 0176556, 64161175, 70581166, 05085860, 70472164, 5238437, 4191498, 4141537, 9611350 ####[address] [address]Gnuyvvueajo/100 WBC (Bld)85.6 %High 36.0-75.0[facility] HospitalComment on above:Order Comment: Order Added by Discern Expert.Performed By: #### 7918206, 6092060, 74939648, 54782007, 15471579, 59914872, 1133519, 9107920, 9215598, 3719840 ####[facility] [address] [place], [place] [address]Ujlxodqmgoc/Leukocytes Auto (Bld) [Pure # fraction]4.5 E9/LNormal2.0-7.5FDoctors HospitalComment on above:Order Comment: Order Added by Discern Expert.Performed By: #### 5137388, 3716894, 72693681, 44872569, 29748168, 81103229, 5032300, 4492884, 7730174, 7975918 ####[facility] [address] [place], [place] [address]X hCG Qualon 83-83-9260Jvhz hCG QlNegativeNormalPromedica Toledo HospitalComment on above:Performed By: #### 6937955, 5725457, 88584842, 20517359, 45784929, 24820655, 5168289, 7434225, 0331197, 6654797 ####[facility] [address] [place], [place] [address]ZLChg 02-28-2021 Creatinine [Mass/Vol]0.7 mg/dLNormal0.5-1.3FDoctors HospitalComment on above:Performed By: #### 7081562, 8359249, 75294739, 95606392, 46283180, 60443753, 3937362, 1910087, 0640247, 5136930 ####[facility] [address] [place], [place] [address]Mctl nitrogen [Mass/Vol]9 mg/dLNormal 5-21Prom[facility] Toledo HospitalComment on above:Performed By: #### 0140900, 0221551, 54538784, 49170092, 32957244, 06502685, 6018612, 2909160, 7896032, 0279606 ####[facility] [address] [place], [place] [address]Zqee nitrogen/Creatinine [Mass ratio]13 No HfnumGiuqlu07-41BrigjcPromedica Toledo HospitalComment on above:Performed By: #### 6482081, 4655730, 77227565, 03641285, 64600219, 83213607, 4813576, 2635634, 7634898, 7585376 ####[facility] [address] [place], [place] [address]Ycgpf gap [Moles/Vol]14 mmol/LNormal6-16Prom[facility] Toledo HospitalComment on above: Performed By: #### 4203640, 0289823, 24038741, 53845663, 40529925, 49889801, 5609079, 3277713, 2475613, 7131269 ####[facility] [address] [place], [place] [address]Iwwffac [Mass/Vol]8.5 mg/dLLow8.9-11.1FDoctors HospitalComment on above:Performed By: #### 5632673, 7045810, 42397509, 16989263, 88507894, 54222340, 2451792, 6236126, 2514773, 2654866 ####[facility] [address] [place], [place] [address]Lyagygll [Moles/Vol]102 mmol/HMejlqz879-242AppivyPromedica Toledo HospitalComment on above: Performed By: #### 7728143, 1724973, 09479935, 05340516, 68691912, 30089865, 8415745, 1402588, 8701501, 5799735 ####[facility] [address] [place], [place] [address]JV7 [Moles/Vol]21 mmol/KJtksjn96-83LqmmbfPromedica Toledo HospitalComment on above:Performed By: #### 1824535, 1824093, 34523779, 40389602, 63845439, 07491147, 2255591, 5143146, 3134151, 7182628 ####[facility] [address] [place], [place] [address]Lgccxli [Mass/Vol]95 mg/xUUjmlmu31-426MpvphoPromedica Toledo HospitalComment on above:Result Comment: If this glucose result represents a fasting glucose, interpretation should refer tothe following reference range: 55-99 mg/dLPerformed By: #### 3360481, 2539283, 17018572, 13822808, 76208413, 48788574, 9424520, 0048003, 9454344, 6001146 ####[facility] [address] [place], [place] [address]Lmedtdecu [Moles/Vol]3.6 mmol/LNormal3.5-5.3FDoctors HospitalComment on above:Performed By: #### 5056440, 0404272, 62680351, 70782990, 05171758, 71275472, 2310908, 5110711, 6773108, 7881176 ####[facility] [address] [place], [place] [address]Uapysn [Moles/Vol]133 mmol/CSzk306-839VlcojaPromedica Toledo HospitalComment on above: Performed By: #### 4610827, 6894244, 93775637, 20961023, 47701191, 54684305, 4553510, 7207614, 4491232, 1145745 ####[facility] [address] [place], [place] [address]NCX w/ Auto Diffon 80-46-0203Umzgjodudxm distribution width (RBC) [Ratio]12.4 %Mlckxs38.9-14.2FDoctors Hospital Comment on above:Performed By: #### 4981630, 3957201, 29160716, 44266731, 12062122, 71035352, 3308065, 9881005, 9594685, 6177111 ####[facility] [address] [place], [place] [address]Jgcstcijko (Bld) [Volume fraction]38.1 %Dzwcbw44.0-46.0Prom[facility]edo HospitalComment on above: Performed By: #### 5194306, 6953763, 56545215, 08528851, 29687327, 73765449, 4366648, 4653943, 0592007, 5275017 ####[facility] [address] [place], [place] [address]Ekenoqyaiq (Bld) [Mass/Vol]13.3 g/lBRwelsa19.0-16.0 [facility] HospitalComment on above:Performed By: #### 3380628, 2955130, 81722171, 40444285, 94726137, 18148914, 7694852, 5511444, 5606523, 6406435 ####[facility] [address] [place], [place] [address]AFR (RBC) [Entitic mass]31.7 ksEmhcnp69.0-34.0[facility]edo HospitalComment on above:Performed By: #### 3819814, 4285086, 48132541, 97482728, 93910185, 34236012, 9798850, 1460093, 4013033, 6115319 ####[facility] [address] [place] [address]FFEO (RBC) [Mass/Vol]35.0 g/dLNormal 31.4-36.0[facility] HospitalComment on above:Performed By: #### 9807305, 1458776, 35574256, 97630497, 08864282, 56790803, 5697571, 4432868, 9186813, 4261272 ####[facility] [address] [place], [place] [address]MRW (RBC) [Entitic vol]90.8 gEKhlrzj19.0-100.0[facility] Comment on above:Performed By: #### 4768001, 0774975, 33983438, 11270570, 54021506, 31209313, 7255438, 1050120, 4027568, 2290089 ####[place] [address] [place], [place] [address]Lrqhnmjn mean volume (Bld) [Entitic vol]10.0 fLNormal6.4-10.8[facility] HospitalComment on above: Performed By: #### 6688925, 9300715, 80384140, 27258498, 47757746, 21511801, 8908280, 1905013, 7579672, 8493935 ####[address] [address]Axcibemjh (Bld) [#/Vol]144.0 E9/EGlf503.0-500.0 [facility] HospitalComment on above:Performed By: #### 4286400, 2605765, 56546232, 76000403, 71351079, 30129608, 7599439, 6029977, 5810028, 5126003 ####[address] [address]ZIG (Bld) [#/Vol]4.2 E12/LLow4.3-5.9[facility] HospitalComment on above: Performed By: #### 8631142, 6610664, 42815954, 24491006, 45247873, 17369726, 8566881, 2905087, 3913311, 2239093 ####[address] [address]NCC corrected for nucl RBC Auto (Bld) [#/Vol]5.3 E9/LNormal4.0-11.0[facility] HospitalComment on above:Performed By: #### 2690152, 1081087, 02230459, 66227428, 73962051, 37947804, 0069181, 4431728, 5474546, 1251454 ####[address] [address]ZAMBO-32 ([facility])on 93-00-7350CPYH-CoV-2 (COVID-19) RNA MARY+probe Ql (Unsp spec)Not detectedNormalNot DetectedFisher Husam Medical CenterComment on above:Result Comment: This test result should be correlated with clinical presentations and medical history by a healthcare provider to determine its clinical significance. This assay was performed by a reverse transcriptase real-time polymerase chain reaction (rt PCR) method on the [employer] system. This test has been authorized only [...] is terminated or revoked sooner.Performed By: #### [id number] #### [facility] [address] [place] [address]BLMQ-FfV-5 (COVID-19) RNA MARY+probe Ql (Unsp spec)PassNormal [facility] HospitalComment on above:Performed By: #### [id number] #### [facility] [address] [place] [address] 74655Eqgnleiv source Nom (Unsp spec)NasalNormalPromedica Toledo HospitalComment on above:Performed By: #### [id number] #### [facility] [address] [place] [address]Ornlkzgr in HealthcareNONJ.W. [facility] Comment on above:Performed By: #### [id number] #### [facility] [address] [place] [address]Jbgmd TestUnknownNJ.W. Ruby Memorial HospitalComment on above:Performed By: #### [id number] #### [facility] [address] [place] [address] 70[address]Cgcluziirayi?NONJ.W. Ruby Memorial HospitalComment on above:Performed By: #### [id number] #### [facility] [address] [place], [place] [address]QTGIIWrpjcpJczmyfFostoria City HospitalComment on above: Performed By: #### [id number] #### [facility] [address] [place], [place] [address]Keeaakfp?NONJ.W. Ruby Memorial HospitalComment on above: Performed By: #### [id number] #### [facility] [address] [place] [address] 77884Wffhtth in a [facility] SettingNONJ.W. Ruby Memorial HospitalComment on above:Performed By: #### [id number] #### [facility] [address] [place] [address]Ogfscinbtvy as defined by [facility][NOTE 2]YESBerger HospitalComment on above:Performed By: #### [id number] #### [facility] [address] [place] [address] 24318Ucpmoum for Treatmenton 60-21-5188Gwwsdxv for Treatment [id number]#1.00CD:127NoFostoria City HospitalD-Dimeron 82-87-5653Obqceg D-dimer FEU (PPP) [Mass/Vol]388 CD:[id number] Gotsjx354-220YacjsmPromedica Toledo HospitalComment on above:Result Comment: This assay is intended [...] skin infections Liver cirrhosis PregnancyPerformed By: #### 8735584, 4227520, 76775995, 01905126, 05977944, 71342020, 1235073, 9264659, 5279382, 7281771 ####[facility] [address] [place], [place] [address]Osailxxfo Instructionson 02-28-2021 Discharge [id number]#1.00CD:127Normal [facility] Clinical Summaryon 08-65-5270UC Clinical Summary [address] [address] ED Clinical Summary Person Information Name: RAJIV TOVAR/[facility] Age: 25 Years : 1995 Sex: Female Language: Singaporean PCP: Alon Weber MD Marital Status: Single [...] 11:17:01 02/28/2021 11:17:01 02/28/2021 11:17:01 ADDRESS: [address] [place] [id number] PHYS DOC NOTES: MEDICAL INFORMATION: Prescriptions Given: [...] Follow up: With: Address: When: Alon Weber [address] [place] [address], [place] [address] Business (1) In 3 days DIAGNOSIS: Chest pain; Viral URINormalFisher Husam Medical CenterED Note-Physicianon 38-81-3429DM Note-PhysicianBasic Information Time Seen: Laureano Phillip DO [...] hCG Qual CBC w/ Auto Diff COVID-19 ([facility]) D-Dimer ECG 12 Lead Adult ED Cardiac [...] Information Alon Weber In 3 days [address] [facility] [address] [place] [id number] Business (1) Additional Instructions: Patient Education COVID-19: How to Protect Yourself and Others - [facility][NOTE 2] COVID-19 Frequently Asked Questions Upper Respiratory Infection, [...] Denies Alcohol Use, 01/30 (more content not included)...Berger HospitalComment on above:Result Comment: Electronically Signed By: Laureano Phillip DO\.br\Date and Time Signed: 02/28/21 11:03EDTED Patient Summaryon 83-98-0803YL Patient Summary [address] [address] Patient Discharge Instructions Person Information Name: RAJIV TOVAR Age: 25 Years Arrival Date: 02/28/2021 09:10:34 Discharge Diagnosis: Chest pain; Viral URI Primary Care Physician: Alon Weber MD Provider Information Primary Provider: Laureano Phillip DO Advanced X Ray Equipment Mechanic:None The exam and treatment you received in the Emergency Department were for an urgent problem and are not intended as complete care. It is important that you follow up with a doctor, nurse practitioner,or physician?s case assistant for ongoing care. If your symptoms [...] Follow-up Instructions: With: Address: When: Alon Weber [address] [place] [address], [place] [address] Business (1) In 3 days [...] opioids can be used to help relieve eilstuuk-cc-itzetx pain and are often prescribed following a [...] with addiction, tell your health director of managed care and ask for guidance or (more content not included)...NormalFisher Husam Medical CenterHep Func Panelon 22-55-8067VFE [Catalytic activity/Vol]52 Int._Unit/SLksubg66-40CvitpiPromedica Toledo HospitalComment on above:Performed By: #### 3942673, 8491332, 21238827, 75668201, 37121076, 53453904, 5122207, 9329171, 4166010, 3758078 ####[place] [address] [address]Zxbpmky [Mass/Vol]4.2 g/dLNormal3.3-5.0[facility] HospitalComment on above:Performed By: #### 8313422, 0947127, 55458161, 66344561, 76238692, 74043539, 7880379, 2804847, 2028656, 6691645 ####[address] [address]Yxzmogs/Globulin (S) [Mass conc ratio]1.7Nynihu0.1-2.2FDoctors HospitalComment on above:Performed By: #### 1228317, 7266953, 46991682, 35167421, 71957334, 23482628, 6645839, 5942777, 1622440, 3014002 ####[address] [address]TTA No additional P-5'-P [Catalytic activity/Vol]48 Int._Unit/LHigh6-46[facility] HospitalComment on above:Performed By: #### 3176338, 5835138, 63570612, 64630983, 88866862, 01002741, 4012214, 9746559, 3571498, 2562528 ####[place] [address] [address]POG [Catalytic activity/Vol]39 Int._Unit/LNormal5-43[facility] HospitalComment on above:Performed By: #### 3992973, 1177058, 81208912, 48927211, 37236743, 05707671, 3693906, 7704250, 8264783, 5564616 ####[facility] [address] [place] [address] Bilirubin [Mass/Vol]1.2 mg/dLHigh0.0-1.1FDoctors HospitalComment on above:Performed By: #### 7917939, 0389785, 00158194, 33525525, 67644138, 94267267, 6455577, 5149326, 6679070, 0635704 ####[facility] [address] [place] [address]Mumcvcvlv.direct [Mass/Vol]0.2 mg/dL Normal0.1-0.4FDoctors HospitalComment on above:Performed By: #### 8507700, 9173956, 54890394, 83830631, 40770151, 56744445, 5617058, 5988393, 4531136, 2831771 ####[address] [address]Hblweputf.indirect [Mass or moles/Vol]1.0 mg/dLHigh0.1-0.9 [facility] HospitalComment on above:Performed By: #### 5615694, 5732115, 30661571, 57567832, 34202336, 01506068, 4657271, 4954890, 0057584, 2054804 ####[address] [address] Globulin (S) [Mass/Vol]2.9 g/dLNormal1.4-4.0[facility] HospitalComment on above:Performed By: #### 7157813, 7001121, 04842694, 55469964, 81458635, 64234939, 7910805, 8865466, 2082740, 9157203 ####[address] [address]Wkkfcyg [Mass/Vol]7.1 g/dLNormal 6.0-7.8[facility] HospitalComment on above:Performed By: #### 9252810, 1087872, 41886906, 93709630, 05169505, 59669288, 4252085, 0563612, 0094284, 0194809 ####[facility] [address] [place], [place] [address]Rupmps Levelon 55-60-0815Zqzgbe [Catalytic activity/Vol]33 U/ZZeboba46-47 [facility] HospitalComment on above:Performed By: #### 0396786, 3083654, 90092111, 03100145, 98134934, 57302420, 4272013, 7987767, 9622020, 5674429 ####[facility] [address] [place], [place] [address]YD & PTTon 95-43-0379fCTI Coag (PPP) [Time]31.5 second(s)Qvvorl42.1-36.5FDoctors HospitalComment on above:Result Comment: Heparin therapeutic range (represented by Anti-Factor Xa activity of 0.2 - 0.4 U/mL) corresponds to PTT of 56.6 - 109.0 sec.Performed By: #### 6253622, 9145703, 32218422, 68674386, 00377412, 63244416, 5865583, 7165408, 3243676, 6133267 ####[facility] [address] [place], [place] [address]KPA Coag (PPP) [Relative time]1.1 {INR}Invalid Interpretation CodeFisher University Of Maryland Medical CenterComment on above:Result Comment: INR results are specifically intended to assess patients stabilized on long-term Anticoagulation therapy suggested INR?s ?Less Intensive Anticoagulation? 2.0 ? 3.0 Conventional Range 3.0 ? 4.5Performed By: #### 8042346, 4307885, 94218839, 44072285, 41001616, 10272072, 0087287, 9446565, 1590681, 9193361 ####[facility] [address] [place], [place] [address]UD Coag (PPP) [Time]13.1 second(s)High10.2-12.9[facility] HospitalComment on above: Performed By: #### 4174054, 2069752, 60105024, 11937218, 34830148, 24681516, 3303083, 5721794, 5731540, 1005208 ####[facility] [address] [place], [place] [address]Jbevhpcvhsqof/Work Noteson 02-28-2021 Prescriptions/Work [id number]#1.00CD:127 NormalPromedica Toledo HospitalTroponin 0 Hr.on 21-55-9137Vzdtvlhm I.cardiac [Mass/Vol]ng/mLLow10.10-27.10[facility] HospitalComment on above:Result Comment: The 95% CI (Confidence Interval) PPV (Positive Predictive Value) for myocardial infarction in females is 38 pg/mL, in males 51 pg/mL. The results should be used in conjunction with clinical conditions of myocardial infarction. (Access High Sensitivity Troponin I Instructions For Use, Yenifer Loki, January 2018)Performed By: #### 3088041, 4421431, 92180253, 90030577, 46703638, 59571059, 7504443, 4420212, 0168262, 9223387 ####[facility] [address] [place], [place] [address]YZ Chest Single Viewon 09-49-9549JF Chest Single ViewExam Date/Time: 02/28/2021 10:21 EDT [...] Tereso Granger MD Transcribed by: OLGA Technologist: SantaPromedica Toledo HospitaleGFRon 11-81-5292WCN/1.73 sq M.predicted among blacks MDRD (S/P/Bld) [Vol rate/Area] mL/min/{1.73_m2}Normal>=59[facility] HospitalComment on above:Order Comment: Order added by Discern Expert.Result Comment: eGFR is race adjusted. AA=.Performed By: #### 8941785, 1770450, 17253205, 52106384, 20547623, 51844532, 7923899, 7553703, 1647362, 7142509 ####[facility] [address] [place], [place] [address]KCA/1.73 sq M.predicted among non-blacks MDRD (S/P/Bld) [Vol rate/Area]mL/min/{1.73_m2}Normal>=59[facility] HospitalComment on above:Order Comment: Order added by Discern Expert. Result Comment: Chronic kidney disease could be indicated at eGFR's of less than 60 mL/min/1.73m2. Kidney failure is indicated at less than 15 mL/min/1.73m2. Performed By: #### 4715730, 2455757, 60235912, 69097595, 32914912, 36114018, 7752781, 8776554, 0838075, 0487557 ####[facility] [address] [place], [place] [address]F Urineon 72-73-0975Tbyqcoid identified Cx Nom (U) Microbiology PROCEDURE: Urine [...] Locations R1: This test was performed at: [facility], [address] [place] [address], [address] , , HlcekhVckatwBerger HospitalComment on above:Performed By: #### 44217217, 9078970 ####[facility] [address] [place] [address]Vygxwo Summary.on 11-50-5889Jqjtir Summary. CD:[id number]:[id number]+PGhlYWQ+UQ4NOWMbJ77avCPwgU9GD1wHYB5YARYIFVZUEW9BBI2zs PY1GRwqL1AqizFv [file] OiBj (more content not included)...Berger HospitalB hCG Qualon 69-20-3181Ppls hCG QlNegativeBerger HospitalComment on above: Performed By: #### 2559510, 6429276, 3810378, 46387611, 3625819, 61091417, 8841103 ####[facility] [address] [place], [place] [address]Discharge Instructionson 23-24-8354Kijxxdrwr Instructions [id number]#[id number]:127NoMet[facility] Clinical Summaryon 02-28-6054SA Clinical Summary [address] [address] ED Clinical Summary Person Information Name: RAJIV TOVAR/[facility] Age: 25 Years : 1995 Sex: Female Language: Singaporean PCP: Alon Weber MD Marital Status: Single [...] 01/30/2021 23:43:48 01/30/2021 23:43:48 01/30/2021 23:43:48 ADDRESS: [address] [place] [id number] PHYS DOC NOTES: MEDICAL INFORMATION: Prescriptions Given: New Medications [facility]/pharmacy #[id number], [address] [place], [place] [id number], [phone] cephalexin (Keflex 500 mg Cap) 1 Capsules [...] Adult Follow up: With: Address: When: Alon Gus [address] [facility], [place] [address] Business (1) In 3 days 02/02/2021 DIAGNOSIS: Acute UTINormalFisher Husam Medical CenterED Note-Physicianon 67-80-3626VQ Note-Physician CD:[id number]:[id number]PjKhcdTjYKbzVo1wi1rjXN11op7lZbXsPu 8+GxrvIO5MHOhWVAJb [file] Y (more content not included)...NormalPromedica Toledo HospitalComment on above:Result Comment: Electronically Signed By: Joshua Hollingsworth DO.br\Date and Time Signed: 01/30/21 23:39 EDTED Patient Education Noteon 98-81-0183KK Patient Education NoteObstetrics and Gynecology Urinary Tract [...] this condition includes: ? Antibiotic medicine. ? Mtoe-zim-khvxtcc medicines to treat discomfort. ? Drinking enough [...] these instructions at home: Medicines ? Take gnje-bbt-gjcgizr and prescription medicines only as told by [...] is important. This in (more content not included)...[facility] Patient Summaryon 84-71-7868MY Patient Summary [address] [address] Patient Discharge Instructions Person Information Name: RAJIV TOVAR Age: 25 Years Arrival Date: 01/30/2021 20:17:08 Discharge Diagnosis: Acute UTI Primary Care Physician: Alon Weber MD Provider Information Primary Provider: Joshua Hollingsworth DO Advanced X Ray Equipment Mechanic:None The exam and treatment you received in the Emergency Department were for an urgent problem and are not intended as complete care. It is important that you follow up with a doctor, nurse practitioner,or physician?s case assistant for ongoing care. If your symptoms [...] Follow-up Instructions: With: Address: When: Alon Gus [address] [place] [address], [place] [address] Business (1) In 3 days 02/02/2021 In the event that this physician does not participate in your insurance network, please consult with your insurance company to find a nearby participating provider. Patient Education Materials: Urinary Tract Infection, Adult A MESSAGE TO ALL PATIENTS REGARDING OPIOIDS PRESCRIPTION OPIOIDS: WHAT YOU NEED TO KNOW Prescription opioids can be used to help relieve oronlhay-sd-oqqsxl pain and are often prescribed following a [...] your community drug take- back program or [facility] mail-back program, or flush them down the toilet, following guidance from the Food and Drug Administration (www.fda.gov/Drugs/ResourcesForYou). ? Visit www.cdc.gov/drugoverdose to learn about the risks of opioids abuse and overdose. ? If you believe you may be struggling with addiction, tell your health director of managed care and ask for guidance or call [facility]?S National Helpline at 3-199-169-DBOR. v Source: US Department of Health a (more content not included)...NormalPromedica Toledo HospitalUA With Cult Reflexon 70-58-9107Pfjdatym LM Ql (Urine sed)1+ /HPFAbnormalTracePromedica Toledo HospitalComment on above:Performed By: #### 66586823, 3391842 ####[facility] [address] [place], [place] [address]Klewbpixo Ql (U)NegativeNormalNegativePromedica Toledo HospitalComment on above:Performed By: #### 65419809, 2580637 ####[facility] [address] [place], [place] [address]Bcsxyww (U)CLOUDY AbnormalClearFisher University Of Maryland Medical CenterComment on above:Performed By: #### 01892406, 9121971 ####[facility] [address] [place], [place] [address]Rglzi (U)YELLOWNormalYellowPromedica Toledo Hospital Comment on above:Performed By: #### 73836069, 3059951 ####[facility] [address] [place], [place] [address]Jgihckpn LM Ql (Urine sed) PresentNormalPromedica Toledo HospitalComment on above:Performed By: #### 42410859, 6979539 ####[address] [address]Mydgxqjoeg cells.squamous LM.HPF (Urine sed) [#/Area]0-2 Normal0-2Fisher [facility] Of Maryland Medical CenterComment on above:Performed By: #### 72100305, 3630013 ####[place] [address]Glucose Test strip (U) [Mass/Vol]NegativeNormalNegative [facility] HospitalComment on above:Performed By: #### 20150643, 7014370 ####[address] [address] Hemoglobin Ql (U)TRACEAbnoalNegMercy Health Lorain HospitalComment on above:Performed By: #### 86412615, 3513289 ####[place] [address]Ketones (U) [Mass/Vol]NegativeNormal NegativePromedica Toledo HospitalComment on above:Performed By: #### 25123163, 4799659 ####[place] [address]Lithium.plasma/Gordo.RBC (Bld) [Mass ratio]5-1Ndrdta2-7MkukxqDoctors HospitalComment on above:Performed By: #### 27586317, 7944988 ####[address] [address]Dvdqu Ql (Urine sed)TRACENormEast Ohio Regional HospitalComment on above:Performed By: #### 95187873, 9361829 ####[address] [address]Idihbsp Ql (U)PositiveAbnormalNegativePromedica Toledo HospitalComment on above:Performed By: #### 31587436, 8609186 ####[address] [address]qJ (U)7.5 [pH]Invalid Interpretation Code5.0-9.0[facility] HospitalComment on above:Performed By: #### 68150386, 2389073 ####[address] [address]Vsoyigy (U) [Mass/Vol]NegativeNormalNegativePromedica Toledo HospitalComment on above:Performed By: #### 56358998, 5556644 ####[address] [address] Specific gravity (U) [Rel density]1.020Invalid Interpretation Code1.005-1.030 [facility] HospitalComment on above:Performed By: #### 46695042, 2538148 ####[address] [address]Oxlv of Urine collection methodClean CatchNormEast Ohio Regional HospitalComment on above:Performed By: #### 20148926, 7437934 ####[address] [address]Tbibdqimhovq Qn (U)0.2 {Arnie'U}/dL Normal0.0-1.0[facility] HospitalComment on above:Performed By: #### 53089426, 1501913 ####[address] [address]WUS Auto Ql (U)1+AbnormalNegativePromedica Toledo Hospital Comment on above:Performed By: #### 71161960, 4943423 ####[address] [address]ZPO LM.HPF (Urine sed) [#/Area]8-53Iscegcqs3-6Uqjans [facility] Medical CenterComment on above:Performed By: #### 06947563, 5203574 ####[address] [address]Zfgk Diffon 71-26-9883Gjnmsnubv/100 WBC (Bld)0.4 %Normal 0.0-2.0[facility] HospitalComment on above:Order Comment: Order Added by Discern Expert.Performed By: #### 6427054, 1384735, 1552411, 85266536, 5309662, 09149875, 8237322 ####[address] [address]Ggtzgarnk/Leukocytes Auto (Bld) [Pure # fraction]0.0 E9/L Normal0.0-0.2FDoctors HospitalComment on above:Order Comment: Order Added by Discern Expert.Performed By: #### 6012592, 7766309, 8457646, 51641159, 4557119, 55654255, 9943857 ####[address] [address]Cqhswjrwoup/100 WBC (Bld)1.4 %Normal0.0-8.0[facility] HospitalComment on above:Order Comment: Order Added by Discern Expert. Performed By: #### 3537791, 5334730, 1404768, 52677997, 7613505, 77844558, 8413954 ####[address] [address]Pvdilzxmbhs/Leukocytes Auto (Bld) [Pure # fraction]0.1 E9/LNormal0.0-0.5 [facility] HospitalComment on above:Order Comment: Order Added by Discern Expert.Performed By: #### 9970829, 6560956, 2561382, 49737478, 7892299, 05072642, 2912326 ####[address] [address]Pfufgnzflzl/100 WBC (Bld)23.7 %Rqssfb56.0-50.0[facility] HospitalComment on above:Order Comment: Order Added by Yifan Expert. Performed By: #### 2836074, 3632497, 6721105, 46492492, 3241567, 80200533, 4344019 ####[address] [address]Qlgboofpiwi/Leukocytes Auto (Bld) [Pure # fraction]1.9 E9/LNormal1.0-4.0 [facility] HospitalComment on above:Order Comment: Order Added by Discern Expert.Performed By: #### 5210182, 6349979, 1407304, 18158411, 5251940, 92336214, 2946428 ####[facility] [address] [place] [address]Jtonfmtkb/100 WBC (Bld)6.2 %Normal4.0-14.0[facility] HospitalComment on above:Order Comment: Order Added by Discern Expert. Performed By: #### 1156386, 0554736, 9292620, 73769864, 7262922, 66925253, 8226514 ####[address] [address]Wmrzmfywq/Leukocytes Auto (Bld) [Pure # fraction]0.5 E9/LNormal0.2-1.0 [facility] HospitalComment on above:Order Comment: Order Added by Discern Expert.Performed By: #### 1370038, 8184781, 9468195, 28627283, 4030784, 74360492, 1792126 ####[place] [address] [place], [place] [address]Fzoeirksagv/100 WBC (Bld)68.3 %Klufhi57.0-75.0[facility] HospitalComment on above:Order Comment: Order Added by Discern Expert. Performed By: #### 6025693, 0782081, 5256750, 46163101, 1290821, 29990581, 5012125 ####[address] [address]Hqvwitqjrhj/Leukocytes Auto (Bld) [Pure # fraction]5.6 E9/LNormal2.0-7.5 [facility] HospitalComment on above:Order Comment: Order Added by Discern Expert.Performed By: #### 2446579, 9769508, 7413905, 36695930, 2793767, 25238088, 1424078 ####[facility] [address] [place], [place] [address]TXGcw 64-24-9956Mdrsaaa [Mass/Vol]9.0 mg/dLNormal8.9-11.1 [facility] HospitalComment on above:Performed By: #### 5788225, 9236215, 5519858, 29539623, 3167171, 64402238, 8302467 ####[facility] [address] [place], [place] [address]Bgnmtalwue [Mass/Vol]0.7 mg/dLNormal 0.5-1.3FDoctors HospitalComment on above:Performed By: #### 4956062, 2942446, 1822809, 82324799, 3858132, 04451661, 8511951 ####[facility] [address] [place], [place] [address]Gsfc nitrogen [Mass/Vol]10 mg/dLNormal5-21[facility] HospitalComment on above:Performed By: #### 1282414, 3814542, 0235085, 78721245, 1996402, 23755238, 8639080 ####[facility] [address] [place], [place] [address]Udmc nitrogen/Creatinine [Mass ratio]14 No VbzaoUxzevw92-62VhztbnPromedica Toledo HospitalComment on above:Performed By: #### 4601842, 2904702, 8827574, 73890088, 0343747, 32765262, 1144015 ####[facility] [address] [place], [place] [address]Splga gap [Moles/Vol]12 mmol/LNormal6-16Prom[facility]edo HospitalComment on above:Performed By: #### 2732606, 6255900, 5852491, 12076694, 9684073, 08084318, 6342443 ####[facility] [address] [place], [place] [address]Zbdqnywz [Moles/Vol]104 mmol/GXsjmwf510-488RsmhstPromedica Toledo HospitalComment on above:Performed By: #### 5558336, 5881072, 3983893, 16909906, 4747121, 57646578, 2950993 ####[address] [place], [place] [address]MK7 [Moles/Vol]25 mmol/HTbblcw06-68 [facility] Toledo HospitalComment on above:Performed By: #### 9664523, 3022542, 4540489, 33268863, 2747710, 06033238, 5708401 ####[address] [address]Uhsqudz [Mass/Vol]93 mg/dLNormal 55-199Prom[facility] Toledo HospitalComment on above:Result Comment: If this glucose result represents a fasting glucose, interpretation should refer tothe following reference range: 55-99 mg/dLPerformed By: #### 7783133, 2230019, 6862926, 17355694, 7922999, 58107952, 7699494 ####[address] [address]Zrfynsuku [Moles/Vol]3.8 mmol/LNormal 3.5-5.3FDoctors HospitalComment on above:Performed By: #### 2897372, 7597839, 9425623, 50752569, 1091429, 51665436, 4570754 ####[address] [address]Kfvzmq [Moles/Vol]137 mmol/L Ihlrma439-437HexlzpPromedica Toledo HospitalComment on above:Performed By: #### 1895787, 5352598, 8500158, 26202630, 8334648, 80563687, 7789211 ####[address] [address]HYI w/ Auto Diffon 67-17-4773Igcmelbwxwa distribution width (RBC) [Ratio]12.2 %Axruip12.9-14.2 [facility]edo HospitalComment on above:Performed By: #### 5032415, 5986061, 4197242, 91890475, 8997684, 83178111, 6098905 ####Ananth [address] [address]Mkdrjoqdkx (Bld) [Volume fraction] 39.3 %Ybqrga97.0-46.0[facility] Toledo HospitalComment on above:Performed By: #### 4099764, 6013959, 3328183, 47863062, 0215855, 84339366, 3721573 ####Ananth [address] [address]Xrfcpehneh (Bld) [Mass/Vol]13.3 g/eBAnqrmd26.0-16.0[facility]edo HospitalComment on above: Performed By: #### 9936623, 5903930, 4919719, 97262826, 8250731, 15451011, 3607363 ####Ananth [address] [address]TIX (RBC) [Entitic mass]31.3 hxGksqtj92.0-34.0[facility] Comment on above:Performed By: #### 3021166, 5398375, 8719828, 09104341, 9697272, 53115281, 9753732 ####Ananth [address] [address]GIKU (RBC) [Mass/Vol]34.0 g/zNWajqcb09.4-36.0[facility]edo HospitalComment on above:Performed By: #### 4046644, 2263271, 4548254, 00093082, 9252657, 45616322, 3271448 ####Ananth [address] [address]BEJ (RBC) [Entitic vol]92.1 fLNormal 80.0-100.0[facility] Toledo HospitalComment on above:Performed By: #### 0210771, 4884575, 5026139, 93875707, 7299431, 01764531, 9666909 ####Ananth [address] [address]Iwtzvpiy mean volume (Bld) [Entitic vol]9.2 fLNormal6.4-10.8[facility] Toledo HospitalComment on above:Performed By: #### 4363363, 5560536, 7808750, 71990947, 0845795, 56554842, 3282207 ####[place] [address] [address]Ytxcpapmv (Bld) [#/Vol]214.0 E9/UVbzakr980.0-500.0[facility]edo HospitalComment on above:Performed By: #### 1922396, 2527006, 2153122, 44138297, 5145845, 29598763, 4442713 ####[address] [address]BXZ (Bld) [#/Vol]4.3 E12/LNormal4.3-5.9[facility] Toledo HospitalComment on above:Performed By: #### 3990389, 3617598, 7489028, 13951493, 9150805, 54732174, 9452901 ####[address] [address]GVG corrected for nucl RBC Auto (Bld) [#/Vol]8.2 E9/LNormal 4.0-11.0[facility] Toledo HospitalComment on above:Performed By: #### 1251674, 1898737, 2122223, 02399243, 9811632, 31829896, 4210732 ####[address] [address]Prkrcgl for Treatmenton 29-16-0240Avnjtal for Treatment [id number]#1.00CD:127NormalPromedica Toledo HospitalHep Func Panelon 41-22-6136Oankpfm [Mass/Vol]4.0 g/dLNormal3.3-5.0[facility] Toledo HospitalComment on above:Performed By: #### 0643737, 0465573, 2540560, 83939549, 6580185, 65231300, 6080812 #### [facility] [address] [place] [address]Lgzomzv/Globulin (S) [Mass conc ratio]1.3Uiftow0.1-2.2FDoctors HospitalComment on above:Performed By: #### 3503410, 7092359, 0557945, 47057883, 2135600, 71359220, 2869590 #### [facility] [address] [place] [address]VVN [Catalytic activity/Vol]44 Int._Unit/PKiimha47-98UqghvhPromedica Toledo HospitalComment on above:Performed By: #### 0651084, 3047988, 0613524, 72631032, 1328340, 37285797, 6400194 #### [facility] [address] [place] [address]FWL No additional P-5'-P [Catalytic activity/Vol]20 Int._Unit/L Normal6-46[facility] Toledo HospitalComment on above:Performed By: #### 2421339, 5650350, 3133099, 25772647, 1306736, 13422121, 3474308 #### [facility] [address] [place] [address]VHY [Catalytic activity/Vol]16 Int._Unit/LNormal5-43[facility]edo HospitalComment on above:Performed By: #### 8322507, 3420627, 6984284, 42877741, 7773426, 62904923, 7721501 #### [facility] [address] [place] [address]Mzwipnsem [Mass/Vol]1.1 mg/dLNormal0.0-1.1FDoctors HospitalComment on above:Performed By: #### 4666506, 4419710, 8244754, 57064101, 1325721, 46963364, 0013578 #### [facility] [address] [place] [address]Kdvlwoayq.direct [Mass/Vol]0.2 mg/dLNormal0.1-0.4FDoctors HospitalComment on above:Performed By: #### 8558029, 6318954, 8889755, 58000116, 2618959, 88358040, 0226251 #### [facility] [address] [place] [address]Yfvqfingc.indirect [Mass or moles/Vol]0.9 mg/dLNormal0.1-0.9 [facility] HospitalComment on above:Performed By: #### 6682947, 4269400, 3814888, 11376839, 6789188, 53291189, 7457789 #### [facility] [address] [place] [address]Mciztklk (S) [Mass/Vol]2.6 g/dLNormal1.4-4.0[facility] HospitalComment on above:Performed By: #### 4643373, 1966414, 3695898, 67536690, 8351200, 00432351, 2573470 #### [facility] [address] [place] [address]Ewqymrq [Mass/Vol]6.6 g/dLNormal6.0-7.8[facility] HospitalComment on above:Performed By: #### 2935574, 2001313, 4903021, 47105620, 9273596, 20992809, 6715353 #### [facility] [address] [place] [address]Kuhywn Levelon 51-33-4377Ruxknd [Catalytic activity/Vol]32 U/L Qyepmq43-96McbzkcPromedica Toledo HospitalComment on above:Performed By: #### 8308676, 0757009, 4186648, 50189181, 2994748, 30045536, 7500630 #### [facility] [address] [place] [address]ySIVlj 39-26-4222ZZA/1.73 sq M.predicted among blacks MDRD (S/P/Bld) [Vol rate/Area]mL/min/{1.73_m2}Normal>=59[facility] Comment on above:Order Comment: Order added by Discern Expert.Result Comment: eGFR is race adjusted. AA=.Performed By: #### 4442600, 8139634, 2130717, 91123072, 2477653, 28274509, 8617534 #### [facility] [address] [place], [place] [address]OPI/1.73 sq M.predicted among non-blacks MDRD (S/P/Bld) [Vol rate/Area]mL/min/{1.73_m2}Normal>=59[facility] HospitalComment on above: Order Comment: Order added by Discern Expert.Result Comment: Chronic kidney disease could be indicated at eGFR's of less than 60 mL/min/1.73m2. Kidney failure is indicated at less than 15 mL/min/1.73m2.Performed By: #### 2915668, 7050816, 3115115, 29577015, 3109600, 46989908, 7404427 #### [facility] [address] [place], [place] [address]Cfavzshq Letteron 27-71-6540Uoaalscq Letter June 03, 2020 To Whom It May Concern, Rajiv has been under my care and had a lap choly on 05/10/2020. She was seen post operatively on 05/23/2020 and was healing well. Rajiv is released to work on 06/06/2020 with no restrictions. Please call the office at [phone] with any questions/ concerns. Sincerely, Dr. Aiden Izquierdo faxed to [facility] to [phone] City HospitalAmbulatory Clinical Summaryon 21-91-1211Ttrbeoqikj Clinical Summary {50-cq-69-c0-c8-4k-76-cb-x2-41-2r-34-b1-48-bf-46}CD:180315EspdntOuvgjeFostoria City HospitalGeneral Surgery Office/Clinic Noteon 70-12-4072Ntwcycg Surgery Office/Clinic NoteHistory of Present Illness lap [...] Information Aiden IZQUIERDO MD Only if needed [address] [place] [address] AVE [address] [place] [address]- Additional Instructions: F/U PRN Problem List/Past Medical [...] Cigarettes, 04/19/2020 Family History Family history is negativeBerger HospitalComment on above: Result Comment: Electronically Signed By: Aiden IZQUIERDO MD\.br\Date and Time Signed: 05/23/20 10:17 EST\.br\Electronically Co-Signed By: Mildred Cook MA\.br\Date and Time Co-Signed: 05/23/20 09:55 ESTIntraOperative Documentson 54-23-5190GirhgIzbxkjwpo Documents [id number]#1.00CD:127Berger HospitalAmbulatory Clinical Summaryon 29-26-4596Rrfbisvibo Clinical Summary {09-8u-e4-9k-y6-7j-8d-80-t6-1b-pg-d5-76-df-f8-b9}CD:009686OivgymTgdauxPromedica Toledo HospitalGastroenterology Office/Clinic Noteon 62-81-6444Vnaxslsdquxabzxu Office/Clinic NoteChief Complaint f/u EGD HPI Staff This is a 25 year old female who presents today for a follow up to EGD. History of Present Illness 24 years old white female with no significant past medical history except for anxiety, referred to me from [facility], ER to be evaluated for right upper quadrant abdominal pain, she reports right upper quadrant abdominal pain, started 6 weeks ago, sporadic, moderate in nature except for the lasttime when it was severe for which she went to [facility], she had normal CBC, CMP and lipase,ultrasound [...] Information Ezequiel MARTINEZ MD Only if needed [facility] [address] [place] [address]- Additional Instructions: Patient Education Cholelithiasis Problem List/Past [...] [2] 07 Surgical Pathology Report; 04/29/2020 10:57 [facility] CenterComment on above:Result Comment: Electronically Signed By: Ezequiel [...] required. HOME CARE INSTRUCTIONS ? Only take jeqd-aax-gfiamqa or prescription medicines for pain, discomfort, or [...] Document Reviewed: 08/09/2011 ExitCare? Patient Information ?2013 Global Registry of Biorepositories.Berger HospitalCoding Summary.on 80-56-3147Tseucx Summary.CODING DATE: 05/13/2020 FINAL [facility] STATUS: Home (Routine DC) PAYOR: Reba APC DESCRIPTION 5361 Level 1 Laparoscopy and Related Services ADMIT DX: REASON FOR VISIT DX: K81.1 Chronic cholecystitis FINAL DX: PRINCIPAL: K81.1 Chronic cholecystitis SECONDARY: K82.8 Other specified diseases of gallbladder F41.9 Anxiety disorder, unspecified PYMT PROC APC STAT DESCRIPTION DOCTOR NAME DATE 40804 5361 J1 Laparoscopy, surgical; Aiden IZQUIERDO MD 05/10/2020 cholecystectomy with cholangiography 24843 Anesthesia for Bakari Husain Jr, DO 05/10/2020 intraperitoneal procedures in upper abdomen including laparoscopy; not otherwise specified NOTE: The code number assigned matches the documented diagnosis and / or procedure in the patient's chart. However, the narrative phrase printed from the coding software may appear abbreviated, or result in slightly different terminology. Revised Coded By: Eugenia Mae Revised Date Saved: 05/13/2020 02:09 pmNJ.W. Ruby Memorial HospitalMain OR Intraoperative Recordon 32-62-1423Vovb OR Intraoperative RecordIntraOp Document Type FT Summary Primary Physician: Aiden IZQUIERDO MD Finalized Date/Time: 05/13/20 11:07:53 Pt. Name: RAJIV TOVAR/Sex: 1995 Female Med Rec #: [id number] Physician: Aiden IZQUIERDO MD Financial #: [id number] Pt. Type: A Room/Bed: AS01/ Admit/Disch: 05/10/20 07:43:57 - 05/10/20 15:00:00 Institution: Case Times FT Entry 1 Patient Times In Room 05/10/20 09:29:00 Out Room 05/10/20 10:27:00 Procedure Times Start 05/10/20 09:44:00 Stop 05/10/20 10:20:00 Anesthesia Times Start 05/10/20 09:29:00 Stop 05/10/20 10:27:00 Last Modified By: London TURNER, My Cummings 05/10/20 10:27:42 General Comments: 1011- mental health tech called dr. guo read xray dilated tapers distally can't exclude small stonepossible spasm , Dr. Izquierdo stated understanding. - joan turner 05/13/2020 Chart opened to review and send charges. Angela Leavitt [employer] [place]. Case Attendance FT Entry 1 Entry 2 Entry 3 Case Attendee Ankit AGUILAR, Linnea IZQUIERDO MD, Aiden ARAUJO MD, Ramandeep Cummings Role Performed Anesthesiologist Surgeon - Primary Surgeon - Assist 1 Strategic Account Manager Time In 05/10/20 09:29:00 05/10/20 09:40:00 [...] TURNER, My Villalba RN, Bernadette Ortiz Cert. Air Crew Member, Arlette Davila Role Performed Cyber Reverse Engineer - Primary Scrub - Primary Scrub - [...] Attendee Carlos MCLEAN, Kim Kaufman RT(R), Magalie Davila Role Performed Scrub - Primary Entry Level Accounting Clerk Time In 05/10/20 09:29:00 05/10/20 10:00:00 [...] Bray RN, Deejay Chowdhury RN, Angel Oglesby Air Crew Member, Carlos Rock CST, Kim Ulloa Time Out [...] Last Modified By: Artemio (more content not included)...Berger HospitalPostoperative Documentson 78-34-6399Xhpwxewhfdoof Documents [id number]#1.00CD:127NoFostoria City HospitalProgress Note-Physicianon 94-32-9014Wcnmcdbz Note-PhysicianPatient: RAJIV TOVAR Age: 25 years Sex: [...] TID, # 10 tab(s), Refills(s) 0, Pharmacy: [facility]/pharmacy #[id number], 168, cm, 04/19/20 6:20:00 EDT, Height/Length Dosing, 58.5, kg, 04/19/20 6:20:00 EDT, Weight Dosing omeprazole 40 mg Cap-DR: 40 mg = 1 cap(s), Oral, Daily, # 30 cap(s), Refills(s) 2, Pharmacy: [facility]/pharmacy #[id number], 168, cm, 04/20/20 10:06:00 EDT, Height/Length Dosing, 59.5, kg, 04/20/20 10:06:00 EDT,Weight Dosing Documented Medications Documented desvenlafaxine 100 mg Tab-: 100 mg = 1 tab(s), Oral, Daily, Refills(s) 0, Depression Problem list: All Problems Biliary dyskinesia / SNOMED CT 846791598 / Confirmed Depression / SNOMED CT 89250643 / Confirmed Histories Past Medical History: No active or resolved past medical history items have been selected or recorded. Family History: Entire family history is negative. Procedure history: EGD (esophagogastroduodenoscopy) gastric outlet reduction (7545367372) on 04/29/2020 at 25 Years. section (83617045) on 07/23/2019 at 24 Years. Sinus (9085126314). Nasal cautery (757840506). Ankle (7950667). Comments: 05/10/2020 8:24 EST - Kluding INSTRUCTIONAL MATERIAL DIRECTOR, Bernarda Bilateral ankle stabilazation for flat feet Diagnostic laparoscopy (622520759). Comments: 05/10/2020 8:26 EST - Kluding INSTRUCTIONAL MATERIAL DIRECTOR, Bernarda ovarian cyst drained Social History Social [...] 05/10/2020 10:15 EST Heart (more content not included)...Berger HospitalComment on above:Result Comment: Electronically Signed By: Bakari [...] All Problems Biliary dyskinesia / SNOMED CT 644308550 / Confirmed Depression / SNOMED CT 19840343 / Confirmed Physical Examination Vital Signs 05/10/2020 [...] 05/10/2020 8:11 EST Apic (more content not included)...Berger HospitalComment on above:Result Comment: Electronically Signed By: Bakari Husain Jr, DO\.br\Date and Time Signed: 05/13/20 13:20 ESTCoding Summary.on 77-20-4446Mhhogh Summary.CODING DATE: 05/12/2020 FINAL [facility] STATUS: Home (Routine DC) PAYOR: [place] ADMIT DX: REASON FOR VISIT DX: Z01.812 [...] Linda Jaquez CphT Date Saved: 05/12/2020 09:53 pmNormalPromedica Toledo HospitalConsent for Anesthesiaon 42-86-6141Ixstibg for Anesthesia [id number]#1.00CD:127NormalPromedica Toledo HospitalDischarge Instructionson 76-54-5643Llkahrqtm Instructions [id number]#1.00CD:127NoGem [facility] CenterIntraOperative Documentson 41-80-2334GpchaRmikijosl Documents [id number]#1.00CD:127NoGem [facility] Medical CenterOperative Reporton 13-66-2622Gaeavnfcb ReportDate of Surgery: 05/10/2020 SURGEON: Aiden Izquierdo MD, FACS SENIOR PRODUCT DEVELOPMENT SCIENTIST: Ramandeep Araujo MD, FACS PREOPERATIVE DIAGNOSIS: Chronic [...] Room in stable condition. Aiden Izquierdo MD, [facility] Dictated: 05/10/2020 #[id number] Typed: 05/10/2020 #[id number] cc: Gracie Cervantes MD, [facility] HospitalComment on above: Result Comment: Electronically Signed By: TIMBO POLK, Aiden Busby.ilana\Date and Time Signed: 05/11/20 08:04 ESTPreoperative Documentson 38-11-0648Jzpkzqsiwuoe [id number]#1.00CD:127Berger HospitalPreoperative Documents [id number]#1.00CD:127Berger HospitalConsent for Treatmenton 86-38-2803Jekmwju for Treatment [id number]#1.00CD:127NormalPromedica Toledo HospitalInpatient Patient Summaryon 18-79-5559Lflzyhxoc Patient Summary [address] [address] [facility] Clinical Discharge Instructions PERSON INFORMATION Name: RAJIV TOVAR PHYSICIANS Admitting Physician: Aiden IZQUIERDO MD Attending Physician: Aiden IZQUIERDO MD PCP: Gus POLK, Alon Discharge Diagnosis: Chronic cholecystitis with calculus Comment: PATIENT EDUCATION INFORMATION Instructions: Post Op Patient Instructions - FT (CUSTOM); How to Use an Incentive Spirometer; Timbo - Post Op Instructions (CUSTOM) Medication Leaflets: Follow up: With: Address: When: Aiden IZQUIERDO [address] [place] [address], [address] [place] [id number] [facility] () Within 7 to 10 days Comments: Call for any problems. Call for followup appointment Type Location Start [facility] [address] Follow Up [facility] 05/16/2020 1:00 PM 05/16/2020 1:15 PM Confirmed MEDICATION LIST Medications to Continue with No Changes Other Medications desvenlafaxine (desvenlafaxine 100 mg Tab-) 1 Tablets By Mouth every day. omeprazole (omeprazole 40 mg Cap-DR) 1 Capsules By Mouth every day. Refills: 2. ondansetron (Zofran ODT 4 mg Tab) 1 Tablets By Mouth 3 times a day. Refills: 0. Comment:Berger HospitalIntraOperative Documentson 05-10-2020 IntraOperative [id number]#1.00CD:127 Berger HospitalMain OR PACU I Recordon 97-96-2478Fesz OR PACU I RecordPACU Phase I Document Type FT Summary Primary Physician: Aiden IZQUIERDO MD Finalized Date/Time: 05/10/20 11:13:04 Pt. Name: RAJIV TOVAR /Sex: 1995 Female Med Rec #: [id number] Physician: Aiden IZQUIERDO MD Financial #: [id number] Pt. Type: A Room/Bed: Admit/Disch: 05/10/20 07:43:57 [...] I Outcomes Met? Yes Last Modified By: Zenon TURNER, Belkys Crenshaw 05/10/20 11:12:50 Post-Care Text: The patient demonstrates [...] Signatures Signed By: Belkys Yarbrough RN 05/10/20 11:13NormchapoPromedica Toledo HospitalMain OR PACU II Recordon 75-21-0469Jvsw OR PACU II RecordPACU Phase II Document Type FT Summary Primary Physician: Aiden IZQUIERDO MD Finalized Date/Time: 05/10/20 15:45:07 Pt. Name: AKHIL RAJIV Quezada/Sex: 1995 Female Med Rec #: [id number] Physician: Aiden IZQUIERDO MD Financial #: [id number] Pt. Type: A Room/Bed: 06/24 Admit/Disch: 05/10/20 [...] Signatures Signed By: Marcelina Cadet RN 05/10/20 15:45NoFostoria City HospitalMain OR Preoperative Recordon 31-03-3879Szpv OR Preoperative RecordPreOp Document Type FT Summary Primary Physician: Aiden IZQUIERDO MD Finalized Date/Time: 05/10/20 10:00:50 Pt. Name: RAJIV TOVAR/Sex: 1995 Female Med Rec #: [id number] Physician: Aiden IZQUIERDO MD Financial #: [id number] Pt. Type: A Room/Bed: [place] [address] Admit/Disch: 05/10/20 07:43:57 - Institution: Case Times [...] Signatures Signed By: My Callahan RN 05/10/20 10:00NoFostoria City HospitalMonitor Recordon 81-40-7523Dipirka [id number]#1.00CD:127 Berger HospitalOutpatient Surgery Discharge Instructionon 96-44-4968Ruxidqanee Surgery Discharge Instruction [address] [address] Patient Discharge Instructions PERSON INFORMATION Name: RAJIV TOVAR Date of : 1995 Current Date: 05/10/2020 10:41:36 PHYSICIANS Admitting Physician: TIMBO POLK, Aiden Davila Discharge Diagnosis: Chronic cholecystitis with calculus RAJIV [...] Follow up: With: Address: When: Aiden IZQUIERDO [address] [place] [address] Business (1) Within 7 to 10 days Comments: Call for any problems. Call for followup appointment Type Location Start [facility] [address] Follow Up [facility] 05/16/2020 1:00 PM 05/16/2020 1:15 PM Confirmed Pharmacy Information: Thank you for choosing [facility] HERE ARE THE MEDICATION CHANGES [...] possible. ? If the spirometer includes a cross country/track and field coach indicator, use this to guide you [...] to reduce pain from co (more content notincluded)...Berger HospitalPatient Education - Texton 00-92-1348Rlsupkm Education - Text Pulmonary Medicine How To [...] possible. ? If the spirometer includes a cross country/track and field coach indicator, use this to guide you [...] 10/21/2007 Document Revised: 07/03/2018 Document Reviewed: 04/23/2018 [email or web address] Patient Education ? 2019 [facility]. [place], [place] Aiden Izquierdo MD, FACS POST OPERATIVE [...] to air, or r (more content not included)...NormalPromedica Toledo HospitalProgress Note-Physicianon 21-25-8889Diqnnxpk Note-PhysicianPatient: RAJIV TOVAR Age: 25 years Sex: Female : 1995 Associated Diagnoses: None Author: Aiden IZQUIERDO MD Postoperative Information Date/ Time: 05/10/2020 10:26:00 Preoperative Diagnosis: Chronic cholecystitis with calculus (DYU82-YG K80.10, Working, Medical). Postoperative Diagnosis: Same pending pathology. Procedure: Laparoscopic Cholecystectomy with intraoperative chloangiogram. Performed by: Aiden Izquierdo MD. Strategic Account Manager: Ramandeep Araujo MD Specimens Removed: Gallbladder. Estimated Blood Loss: 5 ml. Complications: None.Berger HospitalComment on above:Result Comment: Electronically Signed By: Aiden IZQUIERDO MD\.br\Date and Time Signed: 05/10/20 10:27 ESTProgress Note-PhysicianPatient: RAJIV TOVAR Age: 25 years Sex: Female : 1995 Associated Diagnoses: None Author: Aiden IZQUIERDO MD Basic Information No change in History and PhysicalNormEast Ohio Regional HospitalComment on above:Result Comment: Electronically Signed By: Aiden IZQUIERDO MD\.br\Date and Time Signed: 05/10/20 09:11 ESTXR Cholangiogram in ORon 67-08-5897RA Cholangiogram in ORExam Date/Time: 05/10/2020 10:05 EST Reason for Exam: Cholelithiasis Report IMPRESSION: BILIARY DUCTAL DILATATION, DOWN TO A SEGMENT OF THE DISTAL MOST COMMON BILE DUCT, WHICH IS NARROWED. THE ETIOLOGY OF THIS IS NOT SPECIFICALLY DETERMINED. SPASM COULD ACCOUNT FOR THIS NARROWING, BUT TINY DISTAL CHOLEDOCHAL CALCULI (WITH SPASM) ARE ALSO POSSIBLE. CLINICAL HISTORY: Cholelithiasis. COMMENT: Limited twnfw-cv-tdfi C-arm images were obtained in the OR, [...] Comments Radiation Dose: Ka,r in mGy = 3.4NoFostoria City HospitalCoding Summary.on 11-44-9785Iltelk Summary.CODING DATE: 05/07/2020 FINAL [facility] STATUS: Home (Routine DC) PAYOR: Reba ADMIT [...] Linda Jaquez CphT Date Saved: 05/07/2020 10:24 [facility] HospitalCoding Summary. on 68-79-3088Xofduu Summary.CODING DATE: 05/05/2020 FINAL [facility] STATUS: Home (Routine DC) PAYOR: Reba APC DESCRIPTION 5301 Level 1 Upper GI Procedures ADMIT DX: REASON FOR VISIT DX: R10.13 Epigastric pain FINAL DX: PRINCIPAL: R10.13 Epigastric pain SECONDARY: R10.11 Right upper quadrant pain F41.9 Anxiety disorder, unspecified PYMT PROC APC STAT DESCRIPTION DOCTOR NAME DATE 35966 5301 Ezequiel WEST MD 04/29/2020 phagogastroduodenoscopy, flexible, transoral; with biopsy, single or multiple 43246 Anesthesia for upper Husain Bakari Berry DO [...] Eugenia Mae Revised Date Saved: 05/05/2020 11:48 amNormalPromedica Toledo HospitalConsent for Procedure/Surgeryon 74-98-7056Mjgjaqf for Procedure/Surgery [id number]#1.00CD:127NormalPromedica Toledo HospitalFormson [id number]#1.00CD:127 NormalPromedica Toledo HospitalPriority Order-Mitchell 34-54-0905Eovunsel Order-STATCommentInvalid Interpretation [facility] Medical CenterComment on above:Result Comment: Received Performed at: Employyd[employer]comrp RTP [address] [place], [place] [id number] LTAC, located within [facility] Johanny ClaudetteMeetaformed By: #### [id number], SARS-CoV-2, MARY #### [facility] [address] [place], [place] [address]BWCJ-CeV-4, NAAon 94-97-8538ZLDV-CoV-2 (COVID-19) RNA MARY+probe Ql (Resp)Not detectedInvalid Interpretation CodeNot DetectedPromedica Toledo HospitalComment on above:Result Comment: This nucleic acid amplification test was developed and its performance characteristics determined by [employer]. Nucleic acid amplification tests include PCR and [...] detected) result in this assay. Performed at: [facility] [address] [facility] [place] [id number] MD Jacobson AnaghPerformed By: #### [id number], SARS-CoV-2, MARY #### [facility] [address] [place], [place] [address]V hCG Qualon 93-09-6964Qouf hCG QlNegativeNormalPromedica Toledo HospitalComment on above:Performed By: #### [id number] #### [facility] [address] [place], [place] [address]MKX w/Indiceson 94-30-9959Fcvbzvotadr distribution width (RBC) [Ratio]13.1 %Xjaici00.9-14.2FDoctors HospitalComment on above: Performed By: #### [id number], [id number] ####[facility] [address] [place], [place] [address]Kamwvinvcr (Bld) [Volume fraction] 40.5 %Avfdwi88.0-46.0Promedica Toledo HospitalComment on above:Performed By: #### [id number], [id number] ####[address] [place], [place] [address]Yerkqyztyb (Bld) [Mass/Vol]14.0 g/lSLtvels62.0-16.0Promedica Toledo HospitalComment on above:Performed By: #### 4556871, [id number] ####[facility] [address] [place], [place] [address]EVG (RBC) [Entitic mass]31.0 hbBkxsvj98.0-34.0Prom[facility]ica Toledo HospitalComment on above:Performed By: #### [id number], [id number] ####[facility] [address] [place], [place] [address]RPAM (RBC) [Mass/Vol]34.6 g/dLNormal 31.4-36.0Prom[facility]ica Toledo HospitalComment on above:Performed By: #### 6946542, 4026351 ####[address] [address]RKQ (RBC) [Entitic vol]89.7 rWBeurhj71.0-100.0[facility] Comment on above:Performed By: #### 5099454, 4307635 ####[address] [address]Btrgjela mean volume (Bld) [Entitic vol]9.1 fLNormal6.4-10.8Promedica Toledo HospitalComment on above: Performed By: #### 8790792, 2388199 ####[address] [address]Onetfsnbr (Bld) [#/Vol]245.0 E9/L Pufpzs032.0-500.0Promedica Toledo HospitalComment on above:Performed By: #### 5643501, 7783011 ####[address] [address]GZA (Bld) [#/Vol]4.5 E12/LNormal4.3-5.9Promedica Toledo HospitalComment on above:Performed By: #### 4276916, 5037934 ####[address] [address]BQK corrected for nucl RBC Auto (Bld) [#/Vol]5.6 E9/LNormal4.0-11.0Promedica Toledo HospitalComment on above:Performed By: #### 4535799, 3911371 ####[address] [address]Lfvzyzi for Treatmenton 05-04-2020 Consent for [id number]#1.00CD:127Normal Promedica Toledo HospitalHep Func Panelon 57-82-8524Hsguxrn [Mass/Vol]4.2 g/dL Normal3.3-5.0Promedica Toledo HospitalComment on above:Order Comment: if not already done.Performed By: #### 2031528, [id number] ####[address] [address]Rpedtvs/Globulin (S) [Mass conc ratio]1.8Fkvdsp4.1-2.2FDoctors HospitalComment on above:Order Comment: if not already done.Performed By: #### 6954769, 0780738 ####[address] [address]HIP [Catalytic activity/Vol] 112 Int._Unit/NNgji85-03CaxuyvPromedica Toledo HospitalComment on above:Order Comment: if not already done.Performed By: #### 1457877, 0688061 ####[address] [address]UZU No additional P-5'-P [Catalytic activity/Vol]129 Int._Unit/LHigh6-46Promedica Toledo HospitalComment on above:Order Comment: if not already done.Performed By: #### 4260490, 7240857 ####[address] [address]BDU [Catalytic activity/Vol]28 Int._Unit/LNormal5-43Promedica Toledo HospitalComment on above:Order Comment: if not already done. Performed By: #### 9885866, 1851730 ####[address] [address]Nbmdiqsmo [Mass/Vol]0.7 mg/dLNormal 0.0-1.1FDoctors HospitalComment on above:Order Comment: if not already done.Performed By: #### 7509976, 0325130 ####[address] [address]Knzloaocm.direct [Mass/Vol]0.1 mg/dL Normal0.1-0.4FDoctors HospitalComment on above:Order Comment: if not already done.Performed By: #### 8450233, 1836818 ####[facility] [address] [place], [place] [address]Meetusejx.indirect [Mass or moles/Vol]0.6 mg/dLNormal0.1-0.9Promedica Toledo HospitalComment on above: Order Comment: if not already done.Performed By: #### 1487448, 9295366 ####[address] [place] [address] Globulin (S) [Mass/Vol]3.1 g/dLNormal1.4-4.0Promedica Toledo HospitalComment on above:Order Comment: if not already done.Performed By: #### 1338689, 9126640 ####[address] [place] [address] Protein [Mass/Vol]7.3 g/dLNormal6.0-7.8Prom[facility]ica Toledo HospitalComment on above:Order Comment: if not already done.Performed By: #### 1381463, 5579774 ####[facility] [address] [address] Ambulatory Clinical Summaryon 72-05-0694Bwcdnmdyvh Clinical Summary {1e-s5-6c-7x-e0-4j-9p-3n-25-x6-9d-71-4d-97-4c-b4}CD:654284ZcydicVgepqhBerger HospitalConsent for Procedure/Surgeryon 54-98-4311Bpgtwtj for Procedure/[id number]#1.00CD:127[facility] for Procedure/Surgery [id number]#1.00CD:127Berger HospitalFormson 07-[id number]#1.00CD:127 Berger HospitalForm [id number]#1.00CD:127Berger HospitalPhysician Orderon 66-58-6653Hqiaomlob Order [id number]#1.00CD:127Berger HospitalPhysician Referralon 08-44-1629Ymshnwyfn Referral [id number]#1.00CD:127Berger HospitalPostoperative Documentson 99-48-9402Lsphqnkrmracw Documents [id number]#1.00CD:127Berger HospitalProgress Note-Physicianon 16-43-6491Fncygdxm Note-PhysicianPatient: RAJIV TOVAR Age: 25 years Sex: [...] TID, # 10 tab(s), Refills(s) 0, Pharmacy: [facility]/pharmacy #[id number], 168, cm, 04/19/20 6:20:00 EDT, Height/Length Dosing, 58.5, kg, 04/19/20 6:20:00 EDT, Weight Dosing omeprazole 40 mg Cap-DR: 40 mg = 1 cap(s), Oral, Daily, # 30 cap(s), Refills(s) 2, Pharmacy: [facility]/pharmacy #[id number], 168, cm, 04/20/20 10:06:00 [...] Cardiovascular: Regular rhythm. Neurologic: Alert, Oriented. Plan [place] [employer] Anesthesiologists (ASA) physical status classification: Class II. Anesthetic Preoperative Plan Anesthesia: General. . Anesthetic plan, risks, benefits, and alternatives discussed with the patient and/or family. Communication: face to face with (patient 5 minutes, Patient educated on smoking cesstation).Berger HospitalComment on above:Result Comment: Electronically Signed By: Bakari [...] Last Charted Resp Rate 18 br/min (APR 29:15) SBP 134 mmHg (APR 29:) DBP 88 [...] nausea and vomiting. Plan Transfer/ Discharge: Condition stable.Berger HospitalComment on above:Result Comment: Electronically Signed By: Bakari Husain Jr, DO.ilana\Date and Time Signed: 05/03/20 09:37 ESTConsenton 64-53-8872Gckfoqb [id number]#1.00CD:127Berger HospitalDischarge Instructionson 78-65-1417Yezrbwuzk Instructions [id number]#1.00CD:127Berger HospitalGeneral Surgery Office/Clinic Noteon 71-97-8674Mnmbxaa Surgery Office/Clinic NoteChief Complaint biliary dyskenesia History [...] With When Contact Information TIMBO POLK, Aiden [facility] [address] [place] [address]- Additional Instructions: F/U POST OP. Problem [...] Cigarettes, 04/19/2020 Family History Family history is negativeBerger HospitalComment on above: Result Comment: Electronically Signed By: Aiden IZQUIERDO MD\.br\Date and Time Signed: 05/02/20 15:39 EST\.br\Electronically Co-Signed By: Mildred Cook MA\.br\Date and Time Co-Signed: 05/02/20 15:25 ESTIntraOperative Documentson 67-50-4654DhoygLvcuhszfw Documents [id number]#1.00CD:127NoFostoria City HospitalIntraOperative Documents [id number]#1.00CD:127Berger HospitalMain OR Intraoperative Recordon 06-77-4609Deiz OR Intraoperative Record IntraOp Document Type FT Summary Primary Physician: Ezequiel MARTINEZ MD Finalized Date/Time: 05/02/20 08:23:39 Pt. Name: RAJIV TOVAR/Sex: 1995 Female Med Rec #: [id number] Physician: Ezequiel MARTINEZ MD Financial #: [id number] Pt. Type: O Room/Bed: / Admit/Disch: 04/29/20 10:12:58 - 04/29/20 23:59:59 Institution: Case Times FT Entry 1 Patient Times In Room 04/29/20 10:52:00 Out Room 04/29/20 11:04:00 Procedure Times Start 04/29/20 10:56:00 Stop 04/29/20 10:59:00 Anesthesia Times Start 04/29/20 10:52:00 Stop 04/29/20 11:04:00 Last Modified By: Russell Maloney RN 04/29/20 11:04:12 General Comments: 05/02/2020 Chart opened to review and send charges. F Dagmar [employer]. Case Attendance FT Entry 1 Entry 2 Entry 3 Case Attendee Rodrigue Berry DO, Bakari MARTINEZ MD, Ezequiel Maloney RN, Russell Canada Role Performed Anesthesiologist of Surgeon - Primary Cyber Reverse Engineer - Primary Record Time In 04/29/20 10:52:00 04/29/20 10:52:00 04/29/20 10:52:00 Time Out 04/29/20 11:04:00 04/29/20 11:04:00 04/29/20 11:04:00 Procedure EGD(.) EGD(.) EGD(.) Comments Last Modified By: Haider RNRussell RN, Russell Maloney RN, Russell Canada 04/29/20 11:04:13 04/29/20 11:04:13 04/29/20 11:04:13 Entry 4 Entry 5 Entry 6 Case Attendee Mere TURNER, Geno Garcia, Charlotte Bal CST, Aria Role Performed Cyber Reverse Engineer - Primary Scrub - Primary Staff - [...] No Outcomes Met? Yes Last Modified By: Haider TURNER, Russell Canada 04/29/20 07:13:03 Post-Care Text: The patient is [...] Side Right Arm P (more content not included)...[facility] Letter [facility] 74-82-9438Gptmekte Letter [facility] Ezequiel Martinez M.D. [address] [place] [address] Re: RAJIV TOVAR Date of : 1995 [...] of heroperative report following her procedure. Sincerely Jose RobertoFostoria City HospitalCoding Summary.on 08-22-4888Ghedsa Summary. CODING DATE: 04/29/2020 [facility] STATUS: Home (Routine DC) PAYOR: [place] ADMIT DX: REASON FOR VISIT DX: Z01.812 [...] Linda Jaquez CphT Date Saved: 04/29/2020 11:14 pmNJ.W. Ruby Memorial HospitalConsent for Treatmenton 15-65-2006Gxcangq for Treatment [id number]#1.00CD:127NormalPromedica Toledo HospitalEndoscopic Procedure Report - Otheron 96-21-0829Olmewcxkzt Procedure Report - OtherPatient: RAJIV TOVAR Age: [...] weeks Consults surgery for right upper quadrant pain/cholelithiasisBerger HospitalComment on above:Result Comment: Electronically Signed By: MARU POLK, Ezequiel\.br\Date and Time Signed: 04/29/20 11:03 ESTOther Comment: Missing Attachment - attachment storage system not supported [id number] Can be viewed in source systemMissing Attachment - attachment storage system not supported [id number] Can be viewed insource systemMissing Attachment - attachment storage system not supported [id number] Can be viewed in source systemMissing Attachment - attachment storage system not supported [id number] Can be viewed in source systemMissing Attachment - attachment storage system not supported [id number] Can be viewed in source systemInpatient Patient Summaryon 31-46-4106Kpwxmfnyc Patient Summary [id number] [facility] Clinical Discharge Instructions PERSON INFORMATION Name: RAJIV TOVAR PHYSICIANS Admitting Physician: Ezequiel MARTINEZ MD Attending Physician: Ezequiel MARTINEZ MD PCP: Alon Weber MD Discharge Diagnosis: Abdominal pain Comment: PATIENT EDUCATION INFORMATION Instructions: Medication Leaflets: Follow up: With: Address: When: Aiden IZQUIERDO [address], [address] [place] [address] Business (1) With: Address: When: Ezequiel [facility] [address] [facility], [place] [address] Within 2 weeks Type Location Start [facility] [address] Follow Up [facility] 05/16/2020 1:00 PM 05/16/2020 1:15 PM Confirmed [...] [facility] PACU I Recordon 03-73-4812Vkdx OR PACU I RecordPACU Phase I Document Type FT Summary Primary Physician: Ezequiel MARTINEZ MD Finalized Date/Time: 04/29/20 12:13:51 Pt. Name: RAJIV TOVAR/Sex: 1995 Female Med Rec #: [id number] Physician: Ezequiel MARTINEZ MD Financial #: [id number] Pt. Type: O Room/Bed: / Admit/Disch: 04/29/20 [...] Signatures Signed By: Belkys Yarbrough RN 04/29/20 12:13NoFostoria City HospitalMain OR Preoperative Recordon 37-77-0167Zylr OR Preoperative RecordHolding Area Document Type FT Summary Primary Physician: Ezequiel MARTINEZ MD Finalized Date/Time: 04/29/20 10:21:44 Pt. Name: RAJIV TOVAR/Sex: 1995 Female Med Rec #: [id number] Physician: Ezequiel MARTINEZ MD Financial #: [id number] Pt. Type: O Room/Bed: / Admit/Disch: 04/29/20 [...] Signatures Signed By: Marielle Pineda RN 04/29/20 10:21NoFostoria City HospitalMonitor Record on 42-30-2002Zbvnbny [id number]#1.00CD:127 Berger HospitalOutpatient Surgery Discharge Instructionon 06-83-4291Bkgpvasoqq Surgery Discharge Instruction [address] [address] Patient Discharge Instructions PERSON INFORMATION Name: RAJIV [...] IZQUIERDO [address], [address] [place] [address] Business (1) With: Address: When: [facility] [address], [place] [address] Within 2 weeks Type Location Start Finish [facility] Follow Up [facility] 05/16/2020 1:00 PM 05/16/2020 1:15 PM Confirmed Pharmacy Information: Thank you for choosing [facility] HERE ARE THE MEDICATION CHANGES [...] a day. Refills: 0. PATIENT EDUCATION INFORMATION Instructions:Berger HospitalPatient Education - Texton 87-34-4684Qsjmcst Education - TextNormEast [facility] Regional HospitalPriority Order-Mitchell 22-26-4898Lumvldkq Order-STATCommentInvalid Interpretation Code [facility] HospitalComment on above:Result Comment: Received Performed at: [facility] [address], [place] [id number] MD Jacobson AnaghPerformed By: #### [id number], SARS-CoV-2, MARY #### [facility] [address] [place], [place] [address]UUUU-UvU-3, NAAon 73-89-9011JDPG-CoV-2 (COVID-19) RNA MARY+probe Ql (Resp)Not detectedInvalid Interpretation CodeNot DetectedPromedica Toledo HospitalComment on above:Result Comment: This nucleic acid amplification test was developed and its performance characteristics determined by [employer]. Nucleic acid amplification tests include PCR and [...] detected) result in this assay. Performed at: [facility] [address] [facility] [place] [id number] MD Jacobson AnaghPerformed By: #### [id number], SARS-CoV-2, MARY #### [facility] [address] [place], [place] [address]Iruuwausqu Clinical Summaryon 41-01-0342Jcxdseddyf Clinical Summary{2j-50-3b-sp-28-2a-1q-9s-11-3m-k7-09-37-59-21-d1}CD:412508YbpnfeLmwdixFostoria City HospitalCoding Summary.on 15-89-7004Cjjvmj Summary.CODING DATE: 04/20/2020 FINAL [facility] STATUS: Home (Routine DC) PAYOR: Reba APC [...] Lissa Bond Revised Date Saved: 04/20/2020 07:55 amNJ.W. Ruby Memorial HospitalConsent for Procedure/Surgeryon 93-82-8090Ttdibrv for Procedure/Surgery [id number]#1.00CD:127NoFostoria City HospitalGastroenterology Office/Clinic Noteon 94-39-7405Afombpllanbyuutk Office/Clinic NoteChief Complaint f/u to ER RUQ HPI Staff This is a 24 year old female who presents today for a follow up for an ED visit for RUQ pain. History of Present Illness 24 years old white female with no significant past medical history except for anxiety, referred to me from [facility] ER to be evaluated for right upper quadrant abdominal pain, she reports right upper quadrant abdominal pain, started 6 weeks ago, sporadic, moderate in nature except for the lasttime when it was severe for which she went to [facility] ER, she had normal CBC, [...] 2, Pharmacy: [facility]/pharmacy #[id number],168, cm, 04/20/20 10:06:00 EDT, Height/Length Dosing, 59.5, kg, 04/20/20 10:06:00 EDT, Weight Dosing EGD Endoscopy (Hospital Procedure) 2. Anxiety (F41.9: Anxiety disorder, unspecified) 3. Nausea (R11.0: Nausea) Ordered: omeprazole, 40 mg = 1 cap(s), Oral, Daily, # 30 cap(s), Refills(s) 2, Pharmacy: [facility]/pharmacy #[id number],168, cm, 04/20/20 10:06:00 EDT, Height/Length Dosing, 59.5, kg, 04/20/20 10:06:00 EDT, Weight Dosing EGD Endoscopy (Hospital Procedure) Follow-up With When Contact Information Ezequiel MARTINEZ MD Within 2 weeks [facility] [address] [place] [address]- Additional Instructions: Patient Education Abdominal [...] Cigarettes, 04/19/2020 Family History Family history is negativeBerger HospitalComment on above: Result Comment: Electronically Signed By: Ezequiel MARTINEZ MD\.br\Date and Time Signed: 04/20/20 10:56 EDTPatient Educationon 88-11-9178Ksmgotx Education Abdominal Pain Abdominal pain can be [...] directed by your caregiver. ? Only take rqyr-fmz-zjxwwzt or prescription medicines for pain, discomfort, or [...] 09/01/2012 Document Reviewed: 01/26/2009 ExitCare? Patient Information ?2014 Global Registry of [employer]. Family Medicine Abdominal Pain Abdominal pain can [...] directed by your caregiver. ? Only take ykos-sda-slkclyo or prescription medicines for pain, discomfort, or [...] Document Reviewed: 01/26/2009 ExitCare? Patient Information ?2013 Global Registry of Biorepositories.NormalPromedica Toledo HospitalPhysician Orderon 72-49-0081Mxvlsogmx Order [id number]#1.00CD:127NormalPromedica Toledo HospitalPhysician [id number]#1.00CD:127Normal [facility] Toledo HospitalAuto Diffon 67-10-2556Oxkwxbexf/100 WBC (Bld)0.6 % Normal0.0-2.0Prom[facility] Toledo HospitalComment on above:Order Comment: Order Added by Discern Expert.Performed By: #### [id number] #### [facility] [address] [place] [address]Ssalnsczb/Leukocytes Auto (Bld) [Pure # fraction]0.0 E9/LNormal 0.0-0.2FDoctors HospitalComment on above:Order Comment: Order Added by Discern Expert.Performed By: #### [id number] #### [facility] [address] [place] [address]Haonzxgrllp/100 WBC (Bld)0.2 %Normal0.0-8.0Prom[facility] Toledo HospitalComment on above:Order Comment: Order Added by Discern Expert.Performed By: #### [id number] #### [facility] [address] [place], [place] [address]Whyasaaxbpn/Leukocytes Auto (Bld) [Pure # fraction]0.0 E9/L Normal0.0-0.5FDoctors HospitalComment on above:Order Comment: Order Added by Discern Expert.Performed By: #### [id number] #### [facility] [address] [place] [address]Tfmlyzjsexz/100 WBC (Bld)34.4 %Lkbkkx32.0-50.0[facility]edo HospitalComment on above:Order Comment: Order Added by Discern Expert. Performed By: #### [id number] #### [facility] [address] [place] [address]Anmwetpwohu/Leukocytes Auto (Bld) [Pure # fraction]2.5 E9/L Normal1.0-4.0[facility] Toledo HospitalComment on above:Order Comment: Order Added by Discern Expert.Performed By: #### [id number] #### [facility] [address] [place] [address]Gayifaqcq/100 WBC (Bld)6.1 %Normal4.0-14.0Prom[facility] Toledo HospitalComment on above:Order Comment: Order Added by Discern Expert.Performed By: #### [id number] #### [facility] [address] [place] [address]Fakvpbkcs/Leukocytes Auto (Bld) [Pure # fraction]0.4 E9/LNormal 0.2-1.0Prom[facility] Toledo HospitalComment on above:Order Comment: Order Added by Discern Expert.Performed By: #### [id number] #### [facility] [address] [place] [address]Okbjyiuefpn/100 WBC (Bld)58.7 %Nsztoe68.0-75.0Prom[facility] Toledo HospitalComment on above:Order Comment: Order Added by Discern Expert. Performed By: #### [id number] #### [facility] [address] [place] [address]Raznpsghstd/Leukocytes Auto (Bld) [Pure # fraction]4.2 E9/L Normal2.0-7.5FDoctors HospitalComment on above:Order Comment: Order Added by Discern Expert.Performed By: #### [id number] #### [facility] [address] [place] [address]CICyw 86-09-6240Qqbknqiivu [Mass/Vol]0.8 mg/dLNormal0.5-1.3 [facility] Toledo HospitalComment on above:Performed By: #### [id number] #### [facility] [address] [place], [place] [address]Ipre nitrogen [Mass/Vol]12 mg/dLNormal5-21Prom[facility]ica Toledo HospitalComment on above:Performed By: #### [id number] #### [facility] [address] [place], [place] [address]Donv nitrogen/Creatinine [Mass ratio]15 No EemloPsxsdn77-99 [facility] Toledo HospitalComment on above:Performed By: #### [id number] #### [facility] [address] [place], [place] [address]Zsils gap [Moles/Vol]11 mmol/LNormal6-16Prom[facility]ica Toledo HospitalComment on above:Performed By: #### [id number] #### [facility] [address] [place], [place] [address]Osufjff [Mass/Vol]9.7 mg/dLNormal8.9-11.1FDoctors HospitalComment on above:Performed By: #### [id number] #### [facility] [address] [place], [place] [address]Sjhozfmd [Moles/Vol]103 mmol/SMjwgsq029-529WzycyyPromedica Toledo HospitalComment on above:Performed By: #### [id number] #### [facility] [address] [place], [place] [address]BQ8 [Moles/Vol]27 mmol/KCokgch47-26PwszabPromedica Toledo Hospital Comment on above:Performed By: #### [id number] #### [facility] [address] [place], [place] [address]Rttduea [Mass/Vol]97 mg/lUBtpcmu63-166CrpajePromedica Toledo HospitalComment on above:Result Comment: If this glucose result represents a fasting glucose, interpretation should refer tothe following reference range: 55-99 mg/dLPerformed By: #### [id number] #### [facility] [address] [place], [place] [address]Ayfymnqlm [Moles/Vol]3.5 mmol/LNormal3.5-5.3FDoctors HospitalComment on above:Performed By: #### [id number] #### [facility] [address] [place], [place] [address]Tdzzwp [Moles/Vol]137 mmol/GXenqlz473-003EbsdbpLevindale Hebrew Geriatric Center and HospitalComment on above:Performed By: #### [id number] #### [facility] [address] [place] [address]VMA w/ Auto Diffon 71-66-0162Kzwltuuamoz distribution width (RBC) [Ratio]13.3 %Vtjaqr32.9-14.2FDoctors HospitalComment on above: Performed By: #### [id number] #### [facility] [address] [place] [address]Bcninaeqox (Bld) [Volume fraction]37.6 %Gxwyye25.0-46.0Prom[facility]ica Toledo HospitalComment on above:Performed By: #### [id number] #### [facility] [address] [place], [place] [address]Oyhrzhfrym (Bld) [Mass/Vol]13.4 g/jAVycnny63.0-16.0Prom[facility] Toledo HospitalComment on above:Performed By: #### [id number] #### [facility] [address] [place] [address]VSR (RBC) [Entitic mass]31.9 yjUpavpo19.0-34.0Prom[facility] Toledo HospitalComment on above:Performed By: #### [id number] #### [facility] [address] [place], [place] [address]HJJZ (RBC) [Mass/Vol]35.7 g/sMXrcrmn00.4-36.0Prom[facility] Toledo HospitalComment on above:Performed By: #### [id number] #### [facility] [address] [place] [address]LXX (RBC) [Entitic vol]89.2 pRJyplrm58.0-100.0Prom[facility] Toledo HospitalComment on above:Performed By: #### [id number] #### [facility] [address] [place] [address]Rrlvqigp mean volume (Bld) [Entitic vol]9.4 fLNormal6.4-10.8 [facility] Toledo HospitalComment on above:Performed By: #### [id number] #### [facility] [address] [place] [address] [address]85[address]Aottwzzdw (Bld) [#/Vol]219.0 E9/UHckkdw523.0-500.0Prom[facility] Toledo HospitalComment on above:Performed By: #### [id number] #### [facility] [address] [place] [address] 33481EKL (Bld) [#/Vol]4.2 E12/LLow4.3-5.9[facility] Comment on above:Performed By: #### [id number] #### [facility] [address] [place] [address] 26271QAG corrected for nucl RBC Auto (Bld) [#/Vol]7.2 E9/LNormal 4.0-11.0[facility]edo HospitalComment on above:Performed By: #### [id number] #### [facility] [address] [place] [address] 57778Wvuezzm for Treatmenton 01-26-8012Bzpworq for Treatment [id number]#1.00CD:127[facility] HospitalDischarge Instructionson 17-71-1409Bnlcttdbg Instructions [id number]#1.00CD:127[facility] Clinical Summaryon 16-86-7631HA Clinical Summary [address] [id number] ED Clinical Summary Person Information Name: RAJIV TOVAR Marleni/[facility] Age: 24 Years : 1995 Sex: Female Language: Singaporean PCP: Alon Weber MD Marital Status: Single [...] 08:58:55 04/19/2020 08:58:55 04/19/2020 08:58:55 ADDRESS: [address] [facility] [id number] PHYS DOC NOTES: Addendum by Laureano Phillip DO on April 19, 2020 08:26:02 EDT MEDICAL INFORMATION: Prescriptions Given: New Medications [id number], [address], [place] [id number], [phone] dicyclomine (dicyclomine 20 mg Tab) 1 Tablets By Mouth 3 times a day for 7 Days. Refills: 0. ondansetron (Zofran ODT 4 mg Tab) 1 Tablets By Mouth 3 times a day. Refills: 0. PATIENT EDUCATION INFORMATION: Instructions: Cholelithiasis Follow up: With: Address: When: [facility], [address] [place] [address] Business (1) In 3 days 04/22/2020 DIAGNOSIS: 1:Abdominal pain; Biliary colic; Gall stone; NauseaNormalFisher Husam Medical CenterED Note-Nursingon 59-51-3562ES Note-NursingReport received from Zacarias Cuevas RN. Patient resting on cart. Updated on plan of care. Denies any needs at this time. Call light in reach.[facility] CenterED Note-Physicianon 43-64-8851AJ Note-PhysicianBasic Information Time Seen: Susana Belcher M.D. [...] Discharged home Diagnosis: Abdominal pain, cholelithiasis, biliary colicNJ.W. Ruby Memorial HospitalComment on above:Result Comment: Electronically Signed By: Laureano Phillip DO\.br\Date and Time Signed: 04/19/20 08:26EDTED Patient Education Noteon 02-07-6142BD Patient Education NoteFamily Medicine Cholelithiasis Cholelithiasis (also [...] medicine. HOME CARE INSTRUCTIONS ? Only take ugyl-zzz-ihlpipo or prescription medicines for pain, discomfort, or [...] Document Reviewed: 12/02/2013 ExitCare? Patient Information ?2015 Global Registry of [employer]itories. This information is not intended to replace advice given to you by your health care provider. Make sure you discuss any questions you have with yourhealth care provider.[facility] Patient Summaryon 74-98-5264CW Patient Summary [address] [address] Patient Discharge Instructions Person Information Name: RAJIV TOVAR Age: 24 Years Arrival Date: 04/19/2020 06:10:12 Discharge Diagnosis: 1:Abdominal pain; Biliary colic; Gall stone; Nausea Primary Care Physician: Alon Weber MD Provider Information Primary Provider: Susana Belcher M.D. Advanced X Ray Equipment Mechanic:None The exam and treatment you received in the Emergency Department were for an urgent problem and are not intended as complete care. It is important that you follow up with a doctor, nurse practitioner,or physician?s case assistant for ongoing care. If your symptoms become worse or you do not improve as expected and you are unable to reach your usual health care provider, you should return to the Emergency Department. We are available 24 hours a day. RAJIV TOVAR has been given the following list of patient education materials, prescriptions and follow-up instructions: Follow-up Instructions: With: Address: When: [facility], [address] [place] [address] Business (1) In 3 days 04/22/2020 In the event that this physician does not participate in your insurance network, please consult with your insurance company to find a nearby participating provider. Patient Education Materials: Cholelithiasis A MESSAGE TO ALL PATIENTS REGARDING OPIOIDS PRESCRIPTION OPIOIDS: WHAT YOU NEED TO KNOW Prescription opioids can be used to help relieve vngzadub-ew-pdhwma pain and are often prescribed following a [...] with addiction, tell your health director of managed care and ask for guidance or call [facility]?S National Helpline at 3-548-8 (more content not included)...NormalPromedica Toledo HospitalHep Func Panelon 92-51-9493Jgbfcdrmn.indirect [Mass or moles/Vol]UTCAbnormal0.1-0.9Prom[facility]edo HospitalComment on above:Result Comment: Result verified by Discern Rule. Performed result UTC (Unable to Calculate) was sent as an Alpha code due the inability to calculate a valid numeric value.Performed By: #### [id number] #### [facility] [address] [place], [place] [address]Rppouri [Mass/Vol]4.3 g/dLNormal3.3-5.0Prom[facility]edo HospitalComment on above:Performed By: #### [id number] #### [facility] [address], [place] [address]Ytrqoyr/Globulin (S) [Mass conc ratio]1.9Kegdxl5.1-2.2FDoctors HospitalComment on above:Performed By: #### [id number] #### [facility] [address], [place] [address]SDJ [Catalytic activity/Vol]77 Int._Unit/GIuomdx57-50AeenpkPromedica Toledo HospitalComment on above:Performed By: #### [id number] #### [facility] [address], [place] [address]YOQ No additional P-5'-P [Catalytic activity/Vol]59 Int._Unit/L High6-46Prom[facility]ica Toledo HospitalComment on above:Performed By: #### [id number] #### [facility] [address] [place] [address]75[address]ICR [Catalytic activity/Vol]36 Int._Unit/LNormal5-43Prom[facility]edo HospitalComment on above:Performed By: #### [id number] #### [facility] [address] [place] [address] 84[address]Jfcpnjpwp [Mass/Vol]0.4 mg/dLNormal0.0-1.1FDoctors HospitalComment on above:Performed By: #### [id number] #### [facility] [address] [place] [address]64[address]Gvdztuilw.direct [Mass/Vol]mg/dLNormal0.1-0.4FDoctors HospitalComment on above:Performed By: #### [id number] #### [facility] [address] [place] [address] 267[address]Fnkermjg (S) [Mass/Vol]2.8 g/dLNormal1.4-4.0Prom[facility] HospitalComment on above:Performed By: #### [id number] #### [facility] [address] [place] [address] 38832Dsbzyza [Mass/Vol]7.1 g/dLNormal6.0-7.8Prom[facility] HospitalComment on above:Performed By: #### [id number] #### [facility] [address] [place] [address]Recmir Levelon 05-46-8094Vctmzc [Catalytic activity/Vol]43 U/L Ipknud11-96WjwgnaPromedica Toledo HospitalComment on above:Performed By: #### [id number] #### [facility] [address] [place] [address] 89397LD & PTTon 51-27-8920zGTW Coag (PPP) [Time]30.2 second(s)Normal 25.1-36.5FDoctors HospitalComment on above:Result Comment: Heparin therapeutic range (represented by Anti-Factor Xa activity of 0.2 - 0.4 U/mL) corresponds to PTT of 56.6 - 109.0 sec.Performed By: #### [id number] #### [facility] [address], [place] [address]BFT Coag (PPP) [Relative time]1.0 {INR}Invalid Interpretation CodePromedica Toledo HospitalComment on above:Result Comment: INR results are specifically intended to assess patients stabilized on long-term Anticoagulation therapy suggested INR?s ?Less Intensive Anticoagulation? 2.0 ? 3.0 Conventional Range 3.0 ? 4.5Performed By: #### [id number] #### [facility] [address], [place] [address]UC Coag (PPP) [Time]11.8 second(s)Kodwuh48.2-12.9Prom[facility] HospitalComment on above:Performed By: #### [id number] #### [facility] [address] [place] [address] 235[address]Sbgfvnftjlqpk/Work Noteson 19-72-1865Xvquqxawazolc/Work Notes [id number]#1.00CD:127NormEast Ohio Regional HospitalU BetaHcg Qualon 07-47-0665TAK.beta subunit (U) [Moles/Vol]NegativeNormal [facility] HospitalComment on above:Performed By: #### [id number] #### [facility] [address], [place] [address]RR With Cult Reflexon 79-20-5711Kthxzdcn LM Ql (Urine sed)TRACE NormalTracePromedica Toledo HospitalComment on above:Performed By: #### [id number] #### [facility] [address], [place] [address]Wmpbtzuao Ql (U)NegativeNormalNegativePromedica Toledo HospitalComment on above:Performed By: #### [id number] #### [facility] [address] [place] [address] 99342Iqlbbpr (U)CLEARNormalClearPromedica Toledo HospitalComment on above:Performed By: #### [id number] #### [facility] [address], [place] [address]Dhlgv (U)YELLOWNormalYellowPromedica Toledo HospitalComment on above:Performed By: #### [id number] #### [facility] [address], [place] [address]Qbmqvhce LM Ql (Urine sed)PresentNormalPromedica Toledo HospitalComment on above:Performed By: #### [id number] #### [facility] [address], [place] [address]Jjnyoanuag cells.squamous LM.HPF (Urine sed) [#/Area]3-4Normal 0-2Fisher [facility] Medical CenterComment on above:Performed By: #### [id number] #### [facility] [address] [place] [address] 105[address]Lzrrsmk Test strip (U) [Mass/Vol]NegativeNormalNegativePromedica Toledo HospitalComment on above:Performed By: #### [id number] #### [facility] [address] [place], [place] [address]Fpzhnvycwy Ql (U)TRACEAbnormalNegativePromedica Toledo HospitalComment on above:Performed By: #### [id number] #### [facility] [address], [place] [address]Njbgaej (U) [Mass/Vol]NegativeNormalNegativePromedica Toledo HospitalComment on above:Performed By: #### [id number] #### [facility] [address] [place], [place] [address]Sxlohdc.plasma/Gordo.RBC (Bld) [Mass ratio]8-8Xsvbtz9-6Vifmyq [facility] CenterComment on above:Performed By: #### [id number] #### [facility] [address] [place], [place] [address]Dgzlwdc Ql (U)NegativeNormalNegativePromedica Toledo Hospital Comment on above:Performed By: #### [id number] #### [facility] [address] [place] [address] 71300fX (U)6.5 [pH]Invalid Interpretation Code5.0-9.0Prom[facility] HospitalComment on above:Performed By: #### [id number] #### [facility] [address] [place] [address] 547[address]Zpeubrp (U) [Mass/Vol]NegativeNormalNegativePromedica Toledo HospitalComment on above:Performed By: #### [id number] #### [facility] [address] [place] [address] 77393Byveangd gravity (U) [Rel density]1.025Invalid Interpretation Code1.005-1.030Prom[facility]edo HospitalComment on above:Performed By: #### [id number] #### [facility] [address] [place] [address] 38[address]IZ Spec DescClean CatchNormalPromedica Toledo HospitalComment on above:Performed By: #### [id number] #### [facility] [address] [place] [address] 20[address]Aizvbgxqcvwb Qn (U)0.2 {Arnie'U}/dLNormal0.0-1.0[facility] HospitalComment on above:Performed By: #### [id number] #### [facility] [address] [place] [address] 88[address]VKT Auto Ql (U)NegativeNormalNegativePromedica Toledo HospitalComment on above:Performed By: #### [id number] #### [facility] [address] [place] [address] 10609KTZ LM.HPF (Urine sed) [#/Area]5-3Lafenl0-9Bdprzz [facility] CenterComment on above:Performed By: #### [id number] #### [facility] [address] [place], [place] [address]ZX Abdomen, Limitedon 75-19-1661VH Abdomen, LimitedExam Date/Time: 04/19/2020 08:29 EDT Reason [...] Isaiah Guo M.D. Transcribed by: OLGA Technologist: RicardochapoPromedica Toledo HospitaleGFRon 16-90-1925DBD/1.73 sq M.predicted among blacks MDRD (S/P/Bld) [Vol rate/Area] mL/min/{1.73_m2}Normal>=59Prom[facility]ica Toledo HospitalComment on above:Order Comment: Order added by Discern Expert.Result Comment: eGFR is race adjusted. AA=.Performed By: #### [id number] #### [facility] [address], [place] [address]FAB/1.73 sq M.predicted among non-blacks MDRD (S/P/Bld) [Vol rate/Area]mL/min/{1.73_m2}Normal>=59Prom[facility] Toledo HospitalComment on above: Order Comment: Order added by Discern Expert.Result Comment: Chronic kidney disease could be indicated at eGFR's of less than 60 mL/min/1.73m2. Kidney failure is indicated at less than 15 mL/min/1.73m2.Performed By: #### [id number] #### [facility] [address] [place] [address] Vital Signs Date TimeVital SignValuePerforming HqovjstnyUqiffhrq12-30-2948 14:25-0400Body utqqia841.6 Tere Austin MD Work Phone: [phone] [place], [place] [address]Lfoeiwnrnp08-19-7442 14:25-0400Body mass index (BMI) [Ratio]28.08 kg/b3FpmnaJamar Austin MD Work Phone: [phone] [place], [place] [address]Mducrdgukf62-71-3157 14:25-0400Body kypfrn23.93 kgJamar Austin MD Work Phone: [phone] [place], [place] [address]Jrcyofvkhq52-65-9800 14:25-0400Diastolic blood huxrsoob32 mm[Hg]Jamar Austin MD Work Phone: [phone] [place], [place] [address]Vlgbkojajr97-58-9146 14:25-0400Heart rate88 /min Jamar Austin MD Work Phone: [phone] [place], [place] [address]Echfltscnv63-17-1413 14:25-0400Respiratory rate18 /minJamar Austin MD Work Phone: [phone] [place], [place] [address]Wzqrwccotw38-16-3204 14:25-0644VsC4% (BldA) [Mass fraction]98 %Jamar Austin MD Work Phone: [phone] [place], [place] [address]Lylvoorgch12-71-2101 14:25-0400Systolic blood gaovcqsz452 mm[Hg]Jamar Austin MD Work Phone: [facility] HospitalOxhynqxatk71-04-2939 10:52-0400Body mass index (BMI) [Ratio]24.37 kg/m0Opdwm Dragan DO Work Phone: NOSt. Louis [facility] Medical CenterHkkwntyixe36-71-9626 10:52-0400Body ayshqq45.49 kgCorelenin Dragan DO Work Phone: NOSt. [facility] Medical CenterWpdftkzekc00-15-7147 10:52-0400Diastolic blood qmtvcbug26 mm[Hg]Flynn Dragan DO Work Phone: noMS Owcgwqszbx70-85-9252 10:52-0400Systolic blood jsbbeeab778 mm[Hg]Flynn Archibald DO Work Phone: noMS Healthcare Encounters Encounter DateEncounter TypeCare ProviderFacilityStart: 04-19-2025 End: 46-66-7029ipufnzyzzzDfptvvh Vytautas Giedraitis MDFacility:PM Cassie Start: 10-06-2024 End: 92-53-8175Ovpslc outpatient new 45 minutesJamar Austin MD Work Phone: noms ENDOCRINOLOGYComment on above:Hair loss (Primary Dx); Weight gain; Encounter for dietary consultation; Vitamin D deficiencyStart: 10-06-2024 End: 56-31-8864mxegxvbialMBGCQ F SABBAGHNot AvailableStart: 10-06-2024 End: 41-33-3107Quqnhb Sajan Austin MD Work Phone: noms ENDOCRINOLOGYStart: 10-06-2024 End: 58-64-4987Usnkwy Sajan Austin MD Work Phone: noms ENDOCRINOLOGYStart: 09-17-2024 End: 29-26-9247Lqgira outpatient visit 15 minutesEmtasia Singh MD Work Phone: noms [facility] DERMComment on above:Herpesviral vesicular dermatitis (Primary Dx)Start: 09-17-2024 End: 12-52-2998fndgqixwtxIPUNS A PETITTINot AvailableStart: 09-17-2024 End: 43-47-5179Siowfu flowsheetMy Singh MD Work Phone: noms [facility] DERMStart: 09-17-2024 End: 79-38-1033Gmiliy Andres Singh MD Work Phone: noms [facility] DERMStart: 03-03-2024 End: 46-05-6343Jwozkm flowsheetFlynn Dragan DO Work Phone: noMS BCP OBStart: 03-03-2024 End: 50-12-1555Bufutu flowsheetCorey Dragan DO Work Phone: noms BCP OBStart: 03-03-2024 End: 31-48-5821Ejztmfnkj Result EncounterCorey Dragan DO Work Phone: noms External Department UnsolicitedStart: 03-03-2024 End: 29-01-4663Aiwkby outpatient visit 15 minutesCorey Dragan DO Work Phone: noms BCP OBComment on above:Hormone imbalance; Hot flashes; Rolle; Weight gain; PCOS (polycystic ovarian syndrome)Start: 03-03-2024 End: 48-73-6113jgznazvttuAPSUE FAZIONot AvailableStart: 10-21-2023 End: 62-39-1792pxecemquvwJUN RAMEYNot AvailableStart: 09-10-2023 End: 48-90-4149Burdcyixa Result EncounterCorey Dragan DO Work Phone: noms External Department UnsolicitedStart: 09-10-2023 End: 15-52-0070Vpwfwdyek Result EncounterCorey Dragan DO Work Phone: noms External Department UnsolicitedStart: 08-08-2023 Bamboo flowsheetEmily Emiliano Singh MD Work Phone: noms SWS DERMStart: 00-90-8787Lhoeed flowsheetEmtasia Singh MD Work Phone: NOFC SWS DERMStart: 08-08-2023 End: 95-41-2342Bbsgru outpatient visit 15 minutesEmily Emiliano Singh MD Work Phone: noms [facility] DERMComment on above:Herpesviral vesicular dermatitis (Primary Dx)Start: 09-03-2021 End: 29-57-3429ufexvilevpFJ ALON HOYFacility:G0Ezohv: 08-09-0995nepgsixkpjIE AKASH S KUMARFacility:R0Beafq: 08-01-2021 End: 72-28-8543itoutocezbPR AKASH S KUMARFacility:N8Mbjkh: 07-18-2021 End: 54-73-9925cnoxahdykwFN AKASH S KUMARFacility:T0Lgwaj: 07-04-2021 End: 12-64-0609scgpuzcvbdIG AKASH S KUMARFacility:H1 Procedures DateProcedureProcedure DetailPerforming ClinicianStart: 85-77-2590JJW CBC WITH AUTO DIFFCorey Dragan DO Work Phone: Start: 37-33-8056WC PELVIS W/ TRANSVAGINALCorey Dragan DO Work Phone: Plan of Treatment DateCare ActivityDetailAuthorStart: 09-15-2025 End: 73-90-5795Tpcqxfi encounter procedureNOMS SWS DERMStart: 10-06-2024 End: 29-97-6402Ckfryxx encounter moqkknieh41/15/2025 2:20 PM EDT Office Visit [facility] [address] [place] [phone] Jamar Austin MD [address] [place] [address] ArrivedNOSAINT FRANCIS [facility] ENDOCRINOLOGYComment on above:Arrived Start: 10-06-2024 End: 187864-crfnrvownegklz D3 [Mass/volume] in Serum or PlasmaVitamin D 25 hydroxy Lab Routine Vitamin D deficiency Expected: 10/06/2024 (Approximate), Expires: 10/06/2025[facility] HealthcareComment on above:Expected: 10/06/2024 (Approximate), Expires: 10/06/2025Start: 10-06-2024 End: 28-17-6210Fjhpx metabolic 1998 panel - Serum or PlasmaBasic metabolic panel Lab Routine Encounter for dietary consultation Expected: 10/06/2024 (Approxima te), Expires: 10/06/2025[facility] HealthcareComment on above:Expected: 10/06/2024 (Approximate), Expires: 10/06/2025Start: 10-06-2024 End: 31-22-5210Xueyiqkj AMCortisol AM Lab Routine Weight gain Expected: 10/06/2024 (Approximate), Expires: 10/06/2025[facility] HealthcareComment on above: Expected: 10/06/2024 (Approximate), Expires: 10/06/2025Start: 10-06-2024 End: 10-04-0344Ckkndblzcau [Units/volume] in Serum or PlasmaTSH Lab Routine Hair loss Weight gain Expected: 10/06/2024 (Approximate), Expires: 10/06/2025[facility] HealthcareComment on above:Expected: 10/06/2024 (Approximate), Expires: 10/06/2025Start: 10-06-2024 End: 02-18-5924Vcrtbrknb (T4) free [Mass/volume] in Serum or PlasmaT4, free Lab Routine Hair loss Weight gain Expected: 10/06/2024 (Approximate), Expires: 10/06/2025[facility] HealthcareComment on above:Expected: 10/06/2024 (Approximate), Expires: 10/06/2025Start: 10-06-2024 End: 27-62-6900Lltiwetsosixdhwh (T3) Free [Mass/volume] in Serum or PlasmaT3, free Lab Routine Hair loss Weight gain Expected: 10/06/2024 (Approximate), Expires: 10/06/2025[facility] Healthcare Work Phone: Comment on above:Expected: 10/06/2024 (Approximate), Expires: 10/06/2025Start: 09-17-2024 End: 80-48-5288Jtrlmbs encounter bbgagzohp06/27/2025 2:20 PM EDT Office Visit [facility] [address] [place] [address] My Singh MD [address] [place], [place] [id number] ArrivedUINTAH [facility] SWS DERMComment on above:ArrivedStart: 08-10-2024 End: 65-87-7005Hzgxdkf encounter poruxldxz99/17/2025 1:00 PM EST Office Visit [facility] [address] [place] [address] My Singh MD [address] [place] [address] [facility] SWS DERMStart: 03-18-2024 End: 04-02-1774Vasfbqn encounter obxlpdbur74/25/2024 8:00 AM EDT Office Visit [facility] [address] [place] [phone] Flynn Archibald, DO [address] [place] [address] [place] [address] [facility] BCP OBStart: 03-03-2024 End: 99-63-8950ANFIDFJR Lab Routine PCOS (polycystic ovarian syndrome) Expected: 03/03/2024 (Approximate), Expires: 03/03/2025N[facility] HealthcareComment on above: Expected: 03/03/2024 (Approximate), Expires: 03/03/2025Start: 03-03-2024 End: 13-43-8423Innweag encounter /10/2024 10:40 AM EDT Office Visit [facility] [address] [facility] [place] [phone] Flynn Archibald, [address] [place] [address] ArrivedNOWY BCP OBComment on above:ArrivedStart: 08-22-2023 End: 54-09-9009Ogzpswh encounter clbwyjtne80/29/2024 11:50 AM EST Office Visit [facility] [address] [facility] [address] [place] [phone] Flynn Archibald, [address] [place] [address] [facility] BCP OBCBC W Auto Differential panel - BloodCBC and differential Lab Routine PCOS (polycystic ovarian syndrome) Ordered: 03/03/2024 [facility] HealthcareComment on above:Ordered: 03/03/20247476DOYB-xfcuirfTHSP-rvxften Lab Routine PCOS (polycystic ovarian syndrome) Ordered: 03/03/2024[facility] Healthcare Comment on above:Ordered: 03/03/2024EstradiolEstradiol Lab Routine Hormone imbalance Hot flashes Weight gain PCOS (polycystic ovarian syndrome) Ordered: 03/03/2024[facility] HealthcareComment on above:Ordered: 03/03/2024Follicle stimulating hormoneFollicle stimulating hormone Lab Routine PCOS (polycystic ovarian syndrome) Ordered: 03/03/2024[facility] HealthcareComment on above:Ordered: 03/03/2024hCG, quantitative, pregnancyhCG, quantitative, Lab Routine PCOS (polycystic ovarian syndrome) Ordered: 03/03/2024[facility] Work Phone: comment on above:Ordered: 03/03/2024Hemoglobin A1c/Hemoglobin.total in BloodHemoglobin A1c Lab Routine Hormone imbalance Hot flashes Weight gain PCOS (polycystic ovarian syndrome) Ordered: 03/03/2024[facility] HealthcareComment on above:Ordered: 03/03/2024Luteinizing hormoneLuteinizing hormone Lab Routine PCOS (polycystic ovarian syndrome) Ordered: 03/03/2024[facility] HealthcareComment on above:Ordered: 03/03/2024rogesteroneProgesterone Lab Routine Hormone imbalance Hot flashes Weight gain PCOS (polycystic ovarian syndrome) Ordered: 03/03/2024[facility] HealthcareComment on above:Ordered: 03/03/2024 Thyrotropin [Units/volume] in Serum or PlasmaTSH Lab Routine PCOS (polycystic ovarian syndrome) Ordered: 03/03/2024[facility] HealthcareComment on above:Ordered: 03/03/2024Thyroxine (T4) free [Mass/volume] in Serum or PlasmaT4, free Lab Routine PCOS (polycystic ovarian syndrome) Ordered: 03/03/2024[facility] Healthcare Comment on above:Ordered: 03/03/2024 Payers DatePayer CategoryPayerPolicy [id number] Cross Blue [id number] [id number] 2.16.840.1.267443.3.57[id number] 2.16.840.1.631080.3.57[id number] 2.16.840.1.525479.3.57[id number] 2.16.840.1.937919.3.57[id number] 2.16.840.1.876213.3.57[id number] 2.16840.1.933412.3.57[id number] 2.16.840.1.661636.3.57[id number] 2.16.840.1.826238.3.57[id number] 2.16.840.1.950311.3.57[id number] 2.840.1.983832.3.579.[id number] Social History DateTypeDetailFacilityTobacco smoking status NHISTobacco smoking consumption unknownUINTAH [facility] HealthcareStart: 28-49-8237Nqc Assigned At BirthNot on [facility] HealthcareStart: 08-08-2023 End: 08-05-4210Kuxtbf identityNot on [facility] HealthcareStart: 61-23-1129Gtwqopt smoking status NHISNever smoked tobaccoNOWY HealthcareStart: 39-66-9638Rwylvfk use and exposureSmokeless tobacco non-userNOWY HealthcareStart: 08-08-2023 End: 27-72-0191Wuoocqn of Social functionNOMS HealthcareStart: 09-09-2023 End: 49-66-2571Gjnstkwbf beverage intakeLifetime non-drinker (finding)NOMS HealthcareStart: 07-04-8257FphZkevfxTYOB Healthcare Clinical Notes 05-02-2020 to 10-06-2024 Note Date & LwfvKaqfTsxpawvb09-61-9907 History of Present illness Narrative* Jamar Austin [...] 1 year (around 10/06/2025). documented in this encounterSamaritan HospitalKvrjcbhmik45-73-2398 History of Present illness Narrative* My Singh [...] 1 year follow up documented in this encounterSamaritan HospitalKogjkskhcs51-49-8176 History of Present illness Narrative* Marielle Morelos [...] CAPSULE BY MOUTH EVERY 6 HOURS NEEDED Bsxihd80 day hyoscyamine (Levsin) 0.125 MG SL tablet [...] nursing note reviewed. Exam conducted with a bench lathe operator present. Vitals: Estimated body mass index is [...] of: Flynn Archibald DO documented in this encounterSamaritan HospitalQrbehhsnoe45-25-3725 History of Present illness Narrative* My Singh [...] 1 year (follow up) documented in this encounterSamaritan HospitalBhdjwrevqg01-84-1494 NoteCONSULTATION CHIEF COMPLAINT: Mid-back pain, right low [...] would like to proceed. CC: [facility] HospitalYlxfrvoh22-29-8006 NoteCONSULTATION CHIEF COMPLAINT: Mid-back pain, right low [...] to proceed. CC: Dr. Alon Weber [facility] Signed and Approved by: DR AKASH MARTINEZ . 07/25/2021 08:02:00[facility]09-07-2021 NoteInfectious Disease COVID-19: How to Protect Yourself and Others Know how it spreads ? There is currently no vaccine to prevent coronavirus disease 2019 (COVID-19). ? The best way to prevent illness is to avoid being exposed to this virus. ? The virus is thought to spread mainly from lznfuw-ik-eoejgw. ? Between people who are in close [...] are not readily available, use a hand computer forwarding system markup clerk that contains at least 60% alcohol. Cover [...] at higher risk of getting very sick.www.cdc.gov/co ronavirus/2019-ncov/thwn-mlexw-tvygabikvjw/swepko-tb-xhgezr-risk.html Cover your mouth and nose with a [...] available, clean your hands with a hand computer forwarding system markup clerk that contains at least 60% alcohol. Clean and disinfect ? Clean AND disinfect frequently touched surfaces daily. This includes tables, doorknobs, light switches, countertops, handles, desks, phones, keyboards, toilets, faucets, and sinks. www.cdc.gov/coron avirus/2019-ncov/wepwwcp-tureisg-fojr/jnnrmwnefruk-djgt-erch.html ? If surfaces are dirty, clean them: [...] Reviewed: 12/31/2019 Elsevier Patient Education ? 2019 [employer] COVID-19 Frequently Asked Questions COVID-19 (coronavirus disease) is an infection that is caused by a large family of viruses. Some viruses cause illness in people and others cause illness in animals like camels, cats, and bats. In some cases, the viruses that cause illness in animals can spread to humans. Where did the coronavirus come from? In May 2019, [place] told the World Health Organization (WHO) of several cases of lung disease (human respiratory illness). These cases were linked to an open seafood and livestock market in the city of [facility]. The link to the seafood and [...] and virus naming World Health Organization (WHO): www.who.int/emergencies/diseases/lbino-cdmrtptffau-9975/technical-g uidance/megods-hxl-xsliddymazj (more content not included)...[facility]11-12-2020 [id number]:127 [facility]11-09-2020 Note [id number]:127[facility] Evaluation note* Diagnosis Herpesviral vesicular dermatitis- [...] section and content) DATE CREATED AUTHOR 03/05/2021 [facility] DATE CREATED AUTHOR AUTHOR'S ORGANIZ ATION 04/10/2021 [facility] DATE CREATED AUTHOR AUTHOR'S ORGANIZ ATION 07/02/2022 [facility] DATE CREATED AUTHOR AUTHOR'S ORGANIZ ATION 10/08/2024 [facility] DATE CREATED AUTHOR AUTHOR'S ORGANIZ ATION 05/07/2025 [facility] Reason for Visit (unrecogniz ed section and content) ReasonCommentsFollow-upReasonCommentshormone imbalancePt present today to check hormone levels.ReasonCommentsThyroid ProblemNEW MAR 17 LABS NO REFERRAL Care Teams (unrecognized sec tion and content) Team MemberRelationshipSpecialtyStart DateEnd Date Alon Weber MD [address] [place] [address] PCP - GeneralFamily Medicine08/22/23Team MemberRelationshipSpecialtyStart DateEnd Date Alon Weber MD [address] [place] [address] PCP - GeneralFamily Medicine08/22/23Team MemberRelationshipSpecialtyStart DateEnd Date Alon Weber MD [address] [place] [address] PCP - [facility]Robert [facility]08/22/23Team MemberRelationshipSpecialtyStart DateEnd Date Alon Weber MD [address] [place] [address] [facility] - [facility]/23Team MemberRelationshipSpecialtyStart DateEnd Alon Weber MD [address] [place] [facility] [place] [address] [facility]08/22/23Te MemberRelationshipSpecialtyStart DateEnd Date Alon Weber MD [address] [place] [facility] [place] [address] [facility]08/22/23Te MemberRelationshipSpecialtyStart DateEnd Alon Weber MD [address] [place] [facility] [place] [address] [facility]08/22/23Te MemberRelationshipSpecialtyStart DateEnd Date Alon Weber MD [facility]08/22/23 FOR RECORDS PERTAINING TO PATIENTS WHO [...] BE BASED ON THE PRIMARY CLINICAL RECORDS. [facility] [employer] [facility]. provides no warranty or guarantee of the accuracy or completeness of information in this document.
--- NOTE | 2025-05-26 14:05 | PM.CN ---
Consult Note: HPI Data of Consult Patient: known to practice within the last 3 years Consult date: 04/01/25 Requesting Physician: Estelita Teran NP Primary Care Provider: Sixto Gomez MD Consult Narrative Reason for consult: low back pain Narrative: 29yof who presents for assessment. continues to note significant axial pain worsened with standing and ambulation. lumbar mri reviewed, which did not show any disc herniations. continues to engage in a series of provider directed home exercises for >6 weeks, without any significant benefit. uses OTC pain meds and NSAIDs as necessary, but does not like taking medications. Pain today 6/10, increasing to 10/10 with twisting, standing, walking, lifting, stairs, activity, sleep, weather changes, ADLs. Notes mild improvement with sitting, lying down, hot showers. since last visit she underwent a repeat bilateral L4-5 L5-S1 facet RFA without improvement. cc:: CC: Estelita Teran NP Review of Systems ROS Musculoskeletal Reports: back pain; Denies: extremity pain or joint pain [facility] Medical History (Updated 04/30/24 @ 13:44 by Estelita Teran NP) Pain of joint of left ankle and foot ?M25.572 - Pain in left ankle and joints of left foot (ICD-10) Primary osteoarthritis, left ankle and foot ?M19.072 - Primary osteoarthritis, left ankle and foot (ICD-10) Painful orthopaedic hardware ?T84.84XA - Pain due to internal orthopedic prosthetic devices, implants and grafts, initial encounter (ICD-10) Insomnia ?G47.00 - Insomnia, unspecified (ICD-10) PTSD (post-traumatic stress disorder) ?F43.10 - Post-traumatic stress disorder, unspecified (ICD-10) Panic attacks ?F41.0 - Panic disorder [episodic paroxysmal anxiety] (ICD-10) Depression ?F32.A - Depression, unspecified (ICD-10) Anxiety ?F41.9 - Anxiety disorder, unspecified (ICD-10) COVID-19 ?U07.1 - COVID-19 (ICD-10) Migraine ?G43.909 - Migraine, unspecified, not intractable, without status migrainosus (ICD-10) Endometriosis ?N80.9 - Endometriosis, unspecified (ICD-10) Pelvic pain ?R10.2 - Pelvic and perineal pain (ICD-10) Heart murmur ?R01.1 - Cardiac murmur, unspecified (ICD-10) Hyperthyroidism ?E05.90 - Thyrotoxicosis, unspecified without thyrotoxic crisis or storm (ICD-10) Postoperative nausea and vomiting ?R11.2 - Nausea with vomiting, unspecified (ICD-10) ?Z98.890 - Other specified postprocedural states (ICD-10) Surgical History S/P epidural steroid injection ?Z92.241 - Personal history of systemic steroid therapy (ICD-10) H/O laparoscopy (10/11/23) ?Z98.890 - Other specified postprocedural states (ICD-10) History of cholecystectomy ?Z90.49 - Acquired absence of other specified parts of digestive tract (ICD-10) History of laparoscopy ?Z98.890 - Other specified postprocedural states (ICD-10) History of section ?Z98.891 - History of uterine scar from previous surgery (ICD-10) History of ankle surgery ?Z98.890 - Other specified postprocedural states (ICD-10) History of ankle surgery ?Z98.890 - Other specified postprocedural states (ICD-10) History of ankle surgery ?Z98.890 - Other specified postprocedural states (ICD-10) Family History Other Family history of breast cancer Family history of hypertension Family history of leukemia Family history of lung cancer Social History Within the past year, how often did you have a drink containing alcohol: monthly or less Smoking status: Never smoker Non-prescribed substance use: denies use 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 Highest level of school completed/degree received: high school graduate Meds Home Medications and Allergies Home Medications ?Medication ?Instructions ?Recorded ?Confirmed ?Type drospirenone 3 mg-ethinyl 1 tab PO DAILY 07/01/23 04/19/25 History estradiol 0.03 mg tablet hydroxyzine pamoate 50 mg capsule 50 mg PO Q6H PRN nausea and 07/01/23 04/19/25 History vomiting venlafaxine 150 mg 150 mg PO DAILY 07/01/23 04/19/25 History capsule,extended release 24 hr ibuprofen 800 mg tablet 800 mg PO Q8H PRN pain 14 days #40 10/11/23 04/19/25 Rx tabs buspirone 15 mg tablet 15 mg PO DAILY 04/01/25 04/19/25 History lamotrigine 100 mg tablet 200 mg PO DAILY 04/01/25 04/19/25 History Allergies Allergy/AdvReac Type Severity Reaction Status Date / Time Penicillins Allergy Hives Verified 04/19/25 07:55 Sulfa (Sulfonamide Allergy Hives Verified 04/19/25 07:55 Antibiotics) hydrocodone AdvReac Intermediate Hives Verified 04/19/25 07:55 oxycodone AdvReac Intermediate Hives Verified 04/19/25 07:55 Exam Constitutional Documenting provider has reviewed patient's vital signs: yes Common normals: no apparent distress, oriented x3 and alert General appearance: cooperative HENMT Common normals: normocephalic, hearing grossly normal bilaterally and moist oral mucous membranes Head and scalp: normocephalic Eye Common normals: PERRL Pupil: PERRL Neck & C-Spine Common normals: full ROM General: normal visual inspection Chest Common normals: inspection of chest normal Respiratory Common normals: normal respiratory effort, no retractions and no use of accessory muscles Back & Pelvis Lumbar spine/lower back: ROM limited, pain with ROM, lumbar spinal tenderness Lumbar spinal tenderness location: L4 and L5 and straight leg raise negative bilaterally Other: strength 5/5 in BLE positive facet loading bilaterally sensation intact BLE Neuro Common normals: oriented x3 Sensorium/orientation: alert Psych Common normals: mental status grossly normal, thought process normal, cooperative, affect normal, speech normal and activity/motor behavior normal Speech: normal speech Thought process: normal thought process Results Additional Findings Additional findings: If on a controlled substance or opioids, I have checked an [place]AR[place] report on this patient and there are no aberrancies noted in the prescribing history.??If on a controlled substance or opioid a drug screen was completed and reviewed within the last year, and if there has not been a drug screen completed we ordered one today to monitor higher risk, state monitored pain medication use. As part of providing excellent, safe, comprehensive care, the following was completed at our patient's visit: 1. A medication reconciliation and review to ensure accurate knowledge of current/active medications, including asking our patients to inform us about any vrmt-qys-seshhhb medications or herbal remedies/nutritional supplements/alternative remedies. 2. A review to specifically ensure our patients have had annual screening for screening for depression, screening for tobacco use, and screening for unhealthy alcohol use. For concerning screenings had a discussion with the patient, provided patient education, and recommended follow-up with primary care provider when appropriate. If patient noted with a risk of falling, they received education on strength, gait, and balance training to prevent future risk of falling. Portions of this note may have been carried over from the previous visit and updated as appropriate. Please note this office utilizes paper charting in addition to the electronic medical record. A list of current medications, vitals, and PMH is available there as the clinical staff outside of myself do not have access to [employer] charting during the clinic day operations. As part of providing quality comprehensive care the current medications, vitals, and PMH were reviewed in the paper chart. Assessment and Plan Assessment and Plan (1) Lumbar spondylosis: (2) Myalgia: Plan The patient has had over 3 months of moderate to severe low back pain with functional impairment and inadequate response to conservative care including NSAIDS (unless there are contraindication such as concurrent blood thinners), multiple oral or topical pain medications, and home exercise program/physical therapy.? Patient has completed >6 weeks of guided home exercise program and/or formal physical therapy program without relief of their symptoms.? The Oswestry Disability Index was completed, and the patient scored a 27%.? MDP for acute on chronic low back pain post RFA, no concerns of lumbar radiculopathy or lumbar neuritis. as discussed she remains in the healing phase post RFA. will f/u 3 weeks
== END 2025-05-26 13:49 | disposition home or self-care (01) ==
LOC: PM 13:48
PROVIDERS: PCP Family Medicine; Visit Provider Nurse Practitioner
DX: M47.816 Spondylosis without myelopathy or radiculopathy, lumbar region (principal); M79.10 Myalgia, unspecified site
CPT/HCPCS: G0463

== ENCOUNTER 2025-06-21 12:17 | Outpatient (OUT) | payer BC, SELFPAY ==
--- OUTSIDE RECORDS SUMMARY | 2024-02-03 03:00 | XMS_ITS ---
Author Organization [facility] [place] Address [address] [place] [address] Care Team Providers Care Environmental Studies Department Chair Name Role Phone Patricia Arslan Primary Care Provider [phone] Tuan Reza Unavailable [phone] REASON FOR VISIT hardware removal LT foot Encounters Encounter Location Date Provider Diagnosis [facility] [address] [place] [address] 02/03/2024 Tuan Reza Plan Of Treatment No Information Progress Notes * GUYRoma CORBIN NDOB: [birth year] (30 yo F)Acc No.[id number]:02/03/2024 UNLOCKED PROGRESS NOTE Patient:?Roma TOVAR Flower :?Tuan Reza DPM, MSDOB:1995???Age: 28 Y???Sex:FemaleDate:4Phone:[phone]:[address], [id number]:Arslan Bell Out:09:44 AM EST * * Electronic signature of Tuan Reza DPM on 06/21/2025 at 12:21 PM ESTSign off status: PendingVisit Status:?CHK (Check Out) * Provider: Kat Reza DPM, MS Date: 0 02/03/2024 Generated for Printing/Faxing/eTransmitting on:?06/21/2025 12:21 PM EST
--- OUTSIDE RECORDS SUMMARY | 2024-04-22 04:30 | XMS_ITS ---
Author Organization [facility] in [place] Address [address] [place] [address] Care Team Providers Care Crude Oil Treater Name Role Phone Arslan Gomez Primary Care Provider [phone] Tuan Armenta Unavailable [phone] REASON FOR VISIT 4 week follow up Encounters Encounter Location Date Provider Diagnosis [facility] (PODIATRY) [address] [place] [address] [place] [address] 04/22/2024 Tuan Reza Plan Of Treatment No Information Progress Notes * Roma TOVAR NDOB: [birth year] (30 yo F)Acc No.[id number]:04/22/2024 UNLOCKED PROGRESS NOTE Progress Note Patient: Roma DIGGS :?Tuan Reza DPM, MSDOB:1995???Age: 28 Y???Sex:FemaleDate:4Phone:[phone]:[address], [place]-[id number]:Arslan Gomez Subjective: * Chief Complaints: * 1 . 4 week follow up. * Medical History: Objective: * Vitals: Assessment: Plan: * Treatment: * * Electronic signature of Tuan Reza DPM on 06/21/2025 at 12:20 PM ESTSign off status: PendingVisit Status:?CANC (Cancelled) * Provider: Kat Reza DPM, MS Date: 1 Generated for Printing/Faxing/eTransmitting on:?06/21/2025 12:20 PM EST
--- OUTSIDE RECORDS SUMMARY | 2024-06-04 10:15 | XMS_ITS ---
Author Organization [facility] es Address [address] [place] [address] Care Team Providers Care Job Coach/Job Developer Name Role Phone Moriah Mendoza Primary Care Provider REASON FOR VISIT 6 week followup Encounters Encounter Location Date Provider Diagnosis [facility] [address] [place] [address] 06/04/2024 Moriah Mendoza Plan Of Treatment No Information Progress Notes * RAJIV LANDAVERDE NDOB: [birth year] (30 yo F)Acc No.[id number]:06/04/2024 Behavioral Health Patient: RAJIV DIGGS :?Moriah MendozaDOB:1995???Age:29 Y???Sex:Female Date:06/04/2024hone:[phone]:[address], [id number] Subjective: * Chief Complaints: * 6 week followup Billing Information: * Procedure Codes: * Electronic signature of ANITA Medrano on 06/21/2025 at 12:21 PM ESTSign off status: Pending * Provider: Artemio Mendoza Date: 1 08/05/2023 Generated for Printing/Faxing/eTransmitting on:?06/21/2025 12:21 PM EST
--- OUTSIDE RECORDS SUMMARY | 2024-08-05 10:30 | XMS_ITS ---
Author Organization [facility] in [place] Address [address] [place] [address] Care Team Providers Care Tower Foreman Name Role Phone Arslan Gomez Primary Care Provider [phone] Tuan Armenta Unavailable [phone] REASON FOR VISIT 3 months f/u Encounters Encounter Location Date Provider Diagnosis [facility] (PODIATRY) [address] [place] [address] [place] [address] 08/05/2024 Tuan Reza Plan Of Treatment No Information Progress Notes * Roma TOVAR NDOB: [birth year] (30 yo F)Acc No.[id number]:08/05/2024 UNLOCKED PROGRESS NOTE Follow Up Patient: Roma DIGGS :?Tuan Reza DPM, MSDOB:1995???Age: 29 Y???Sex:FemaleDate:08/05/2024Phone:[phone]:[address], [place]-[id number]:Arslan Gomez Subjective: * Chief Complaints: * 1 . 3 months f/u. * Medical History: Objective: * Vitals: Assessment: Plan: * Treatment: * * Electronic signature of Tuan Reza DPM on 06/21/2025 at 12:21 PM ESTSign off status: PendingVisit Status:?CANC (Cancelled) * Provider: Kat Reza DPM, MS Date: 0 08/05/2024 Generated for Printing/Faxing/eTransmitting on:?06/21/2025 12:21 PM EST
--- OUTSIDE RECORDS SUMMARY | 2024-09-17 08:45 | XMS_ITS ---
Author Organization [facility] es Address [address] [place] [address] Care Team Providers Care Management Trainee Marketing Name Role Phone Moriah Mendoza Primary Care Provider [phone] REASON FOR VISIT 3 month f/u Encounters Encounter Location Date Provider Diagnosis [facility] [address] [place] [facility] [place] [address] 09/17/2024 Moriah Mendoza Plan Of Treatment No Information Progress Notes * RAJIV LANDAVERDE NDOB: [birth year] (30 yo F)Acc No.[id number]:09/17/2024 Behavioral Health Patient: RAJIV DIGGS :?Moriah MendozaDOB:1995???Age:29 Y???Sex:Female Date:09/17/2024Phone:[phone]:[address], [id number] Subjective: * Chief Complaints: * 3 month f/u Billing Information: * Procedure Codes: * Electronic signature of ANITA Medrano on 06/21/2025 at 12:21 PM ESTSign off status: Pending * Provider: Artemio Mendoza Date: 0 09/17/2024 Generated for Printing/Faxing/eTransmitting on:?06/21/2025 12:21 PM EST
--- OUTSIDE RECORDS SUMMARY | 2024-09-30 09:30 | XMS_ITS ---
Author Organization [facility] es Address [address] [place] [address] Care Team Providers Care Market Specialist Name Role Phone Moriah Mendoza Primary Care Provider REASON FOR VISIT BH F/U r/s from 09/17 Encounters Encounter Location Date Provider Diagnosis [facility] [address] [place] [address] 09/30/2024 Moriah Mendoza Plan Of Treatment No Information Progress Notes * RAJIV LANDAVERDE NDOB: [birth year] (30 yo F)Acc No.[id number]:09/30/2024 Behavioral Health Patient: Artemio RAJIV DUGAN :?Moriah MendozaDOB:1995???Age:29 Y???Sex:Female Date:09/30/2024Phone:[phone]:[address], [id number] Subjective: * Chief Complaints: * B H F/U r/s from 09/17 Billing Information: * Procedure Codes: * Electronic signature of ANITA Medrano on 06/21/2025 at 12:20 PM ESTSign off status: Pending * Provider: Artemio Mendoza Date: 0 09/30/2024 Generated for Printing/Faxing/eTransmitting on:?06/21/2025 12:20 PM EST
--- OUTSIDE RECORDS SUMMARY | 2025-01-07 09:00 | XMS_ITS ---
Author Organization [facility] Serv es Address [address] [place] [address] Care Team Providers Care Windows Security Analyst Name Role Phone [facility] Mendoza Primary Care Provider REASON FOR VISIT 3 month f/u Encounters Encounter Location Date Provider Diagnosis [facility] [address] [place] [address] 01/07/2025 Moriah Mendoza Plan Of Treatment No Information Progress Notes * RAJIV LANDAVERDE NDOB: 3 (30 yo F)Acc No.[id number]:01/07/2025 Behavioral Health Patient: RAJIV DIGGS :?Moriah MendozaDOB:1995???Age:29 Y???Sex:Female Date:01/07/2025Phone:[phone]:[address], [id number] Subjective: * Chief Complaints: * 3 month f/u Billing Information: * Procedure Codes: * Electronic signature of ANITA Medrano on 06/21/2025 at 12:21 PM ESTSign off status: Pending * Provider: Artemio Mendoza Date: 0 01/07/2025 Generated for Printing/Faxing/eTransmitting on:?06/21/2025 12:21 PM EST
--- OUTSIDE RECORDS SUMMARY | 2025-04-29 09:30 | XMS_ITS ---
Author Organization [facility] es Address [address] [place] [address] Care Team Providers Care Generator Operator Straight Bevel Gear Name Role Phone Moriah Mendoza Primary Care Provider [phone] Roberta Mooney Unavailable [phone] REASON FOR VISIT 2 month f/u bh Encounters Encounter Location Date Provider Diagnosis [facility] [address] [place] [address] 04/29/2025 Roberta Mooney Plan Of Treatment No Information Progress Notes * RAJIV LANDAVERDE NDOB: [birth year] (30 yo F)Acc No.[id number]:04/29/2025 Behavioral Health Patient: Artemio DUGAN RAJIV Crenshaw :?Roberta MooneyDOB:1995???Age:30 Y???Sex: FemaleDate:04/29/2025Phone:[phone]:[address] [id number]:Moriah Mendoza Subjective: * Chief Complaints: * 2 month f/u bh * Electronic signature of ANITA Isaacs on 06/21/2025 at 12:21 PM EST Sign off status: Pending * Provider: Osvaldo Mooney Date: 06/29/2024 Generated for Printing/Faxing/eTransmitting on:?06/21/2025 12:21 PM EST
--- OUTSIDE RECORDS SUMMARY | 2025-06-21 12:20 | XMS_ITS | Patient Health Record ---
Author Organization [facility] Address [address] [place] [address] Care Team Providers Care [employer] Team Member Name Role Phone Moriah Mendoza Primary Care Provider Roberta Mooney Unavailable [phone] Allergies Allergen (clinical drug ingredient) Drug/Non Drug Allergy documented on EMR Reaction Allergy Type Onset Date Status hydrocodone Hydrocodone hives Drug Allergy ActiveoxycodoneOxycodonehivesDrug AllergyActivePenicillinhivesDrug AllergyActive Reason For Referral No Information Medications Medication SIG (Take, Route, Frequency, Duration) Notes Start Date End Date Status Lo Loestrin Fe Not-Taking/PRNDrospirenoneActiveVenlafaxine HCl ER 75 MG Capsule Extended Release 24 Hour1 capsule with food Orally daily; Duration: 30 daysdecrease dosage; please disregard refills for 150mgActivebusPIRone HCl 15 MG Tablet1 tablet Orally dailyActivetraZODone HCl 100 MG Tablet1 tablet at bedtime Orally Once a dayActivemetFORMIN HCl 500 MG Tablet1 tablet with meals twice daily Orally twice daily; Duration: 30 daysNot-Taking/PRNlamoTRIgine 100 MG Tablet1 tablet Orally dailyActiveAuvelity 45-105 MG Tablet Extended Release1 tablet in the morning Orally twice daily; Duration: 30 daysNot-Taking/PRNhydrOXYzine Pamoate 50 MG CapsuleTAKE 1 CAPSULE BY MOUTH EVERY 6 HOURSActiveVraylar 4.5 MG Capsule1 capsule Orally Once a day; Duration: 30 days01/21/2023Not-Taking/PRN Prazosin HCl 2 MG Capsule1 capsule at bedtime Orally at bedtimeActive Social History Tobacco Use: Social History Observation [...] hurting yourself in some wayNot at allTotal Fkcfj0FzpfhfvfeejuzJxrt DepressionTobacco Screen:Are you a:never smokerAlcohol Screening:Did you [...] Status Risk Notes Problem Acute stress reaction (34919888) Acute st ress reaction (F43.0) ActiveconfirmedProblemMixed anxiety and depressive disorder (903578785) Depression with anxiety (F41.8)ActiveconfirmedProblemMood disorder (51396801) Mood disorder (F39)ActiveconfirmedProblemPosttraumatic stress disorder (97033570)PTSD (post-traumatic stress disorder) (F43.10)ActiveconfirmedProblem Migraine variant with headache (disorder) (471441112)Migraine headache (G43.909) ActiveconfirmedProblemRecurrent major depression (49776512)Major depressive disorder, recurrent episode with anxious distress (F33.9)Activeconfirmed Vital Signs Heart Rate 84 /min 03/10/2025 Respiratory Rate12 /min02/01/20254627Tkjumjvi462 %03/10/2025lood pressure diastolic 78 mm Hg03/10/20251966Lxeqnr61 in03/10/2025lood pressure mm Hg 03/10/20256629Wplffj031.0 lbs03/10/2025BMI26.63 kg/m203/10/2025 Encounters Encounter Location Date Provider Diagnosis [facility] [address] [place] [address] 03/08/2025 Roberta Mooney Mood disorder F39 [facility] [address] [place] [address] 10/09/2024 Moriah Mendoza Mood disorder F39 and PTSD (post-traumatic stress disorder) F43.10 [facility] [address] [place] [address] 01/11/2025 Moriah Mendoza Mood disorder F39 and PTSD (post-traumatic stress disorder) F43.10 [facility] [address] [place] [address] 02/01/2025 Moriah Mendoza Mood disorder F39 and PTSD (post-traumatic stress disorder) F43.10 [facility] [address] [place] [address] 03/10/2025 Roberta Mooney PTSD (post-traumatic stress disorder) F43.10 ; Major depressive disorder, recurrent episode with anxious distress F33.9 and Mood disorder F39 Assessments Encounter Date Diagnosis (ICD Code) Assessment Notes Treatment Notes Treatment Clinical Notes Section Notes 10/09/2024 Mood disorder (ICD-10 - F39) Recommended treatment [...] consented to the start/continuation of the treatment. 03/10/2025PTSD (post-traumatic stress disorder) (ICD-10 - F43.10) prazosin- Encouraged to call office or report to the if the patient experiences dizziness or lightheadedness Hydroxyzine: Made aware that the med will cause sedation, dry mouth, and urinary retention. Do not take before driving a car until you know how the med will affect you. Do not take the medication if . Do not take with other RECRUITMENT COORDINATOR depressants. Call 911 for difficulty breathing. Buspar is a medication used for anxiety. The medication can cause dizziness, sedation, and restless. Please contact the office if you experience these symptoms. The medication typically takes 2-4 weeks to achieve efficacy. Made aware to contact office if symptoms worsen. 03/10/2025Major depressive disorder, recurrent episode with anxious distress (ICD-10 - F33.9) Recommended treatment is: _ FDA approved medication for this age group include Selective Serotonin Reuptake Inhibitors (SSRI) and Selective Norepinephrine Reuptake Inhibitors (SNRI). . Selective serotonin reuptake inhibitors? can cause nausea, headache, upset stomach, diarrhea, constipation, anxiety, irritability, and sexual dysfunction. . Please monitor for worsening of symptoms, especially suicidal ideations or morbid thoughts, and call office and or go to the emergency department immediately. Pt does not endorse exhibiting symptoms aligning with christina. . The patient verbalizes understanding with all questions answered thoroughly and is in agreement with treatment plan. . Continue current treatment plan Patient/Guardian will call sooner if symptoms worsen. Patient understands to go to ER if needed if symptoms become severe. Crisis Intervention plan was discussed and agreed upon. Patient/Guardian will call 911 in case of emergency. Emergency contact information was provided to the patient/guardian. 02/01/2025PTSD (post-traumatic stress disorder) (ICD-10 - F43.10)03/08/2025Mood disorder (ICD-10 - F39)10/09/2024PTSD (post-traumatic stress disorder) (ICD-10 - F43.10)01/11/2025Mood disorder (ICD-10 - F39) Recommended treatment for [...] treatment. 01/11/2025PTSD (post-traumatic stress disorder) (ICD-10 - F43.10)03/10/2025Mood disorder (ICD-10 - F39) Lamictal: Patient educated on dosing schedule of medication. Made aware to make prescriber aware ofany unexplainable rash or flu-like symptoms. If outside of office hours patient should report to the ER. Made aware to contact the office with any questions or concerns. Provided crisis hotline number. Patient states has good support system. Will call office or report to the ER with suicidal ideations. Plan Of Treatment No Information Insurance Providers Payer Name Payer Address Payer Phone Subscriber Number Group Number Insured Name Patient Relationship to Insured Coverage Start Date Coverage End Date [employer] Primary [address] [place] [address] [id number] CORBIN Self - patient is the insured 1 5 [employer] Primary [address] [place] [address] [phone] [id number] CORBNI Self - patient is the insured 5 Medical (General) History Surgical History Surgery Date(Month/Year) cholecystectomy C-sectionImplants on ankles
--- OUTSIDE RECORDS SUMMARY | 2025-06-21 12:21 | XMS_ITS | Clinical Summary ---
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 84 tablet 5Active drospirenone-ethinyl estradiol (Zumandimine) 3-0.03 MG tablet Indications:Uses controlTAKE 1 TABLET BY MOUTH EVERY DAY IN THE MORNING 84 tablet Discontinued drospirenone-ethinyl estradiol (Zumandimine) 3-0.03 MG tablet Indications:Uses controlTAKE 1 TABLET BY MOUTH EVERY DAY IN THE MORNING 84 tablet Discontinued(Reorder) Active Problems No known active problems Encounters DateTypeDepartmentCare GllkIdmfgjjzycu39/09/2025Refill [facility] Angelica VALDEZ [address] [phone] Sherri Al MA Uses nerqyya1705/31/2025Refill [facility] Angelica VALDEZ [address] [phone] Flynn Archibald DO Uses controlfrom Last 3 Months Family History Medical HistoryRelationNameCommentsBreast cancerFather's SisterLeukemiaFather's SisterLung cancerMaternal GrandfatherRelationNameStatusCommentsFather's Sister Maternal Grandfather Social History Tobacco UseTypesPacks/DayYears UsedDateSmoking Tobacco: NeverSmokeless Tobacco: Never Tobacco Cessation:Counseling Given: Not Answered Alcohol UseStandard Drinks/WeekCommentsNever0 (1 standard drink = 0.6 oz pure alcohol)CommentsNoSex and Gender InformationValueDate RecordedSex Assigned at BirthNot on fileLegal WocIbmnsn01/15/2023 10:13 PM EDTGender IdentityNot on fileSexual OrientationNot on file Last Filed Vital Signs Vital SignReadingTime TakenCommentsBlood Hfehrkpv799/7404 2:25 PM EDT Vfnob969410/06/2024 2:25 PM EDTTemperature--Respiratory Uztq5112 2:25 PM EDTOxygen Fcaidupkey36%10/06/2024 2:25 PM EDTInhaled Oxygen Concentration-- Hmgzeb82.9 kg (174 lb)10/06/2024 2:25 PM VEPHosaqz246.6 cm (5' 6 )10/06/2024 2:25 PM EDTBody Mass Index28.0810/06/2024 2:25 PM EDT Plan of Treatment DateTypeDepartmentCare Team (Latest Contact Info)Dxpbejgjzht27/25/2026 2:20 PM EDTOffice Visit [facility] [address] [place] [address] Vaishali Singh MD [address] [place] [address] Insurance Care Teams Team MemberRelationshipSpecialtyStart DateEnd Sixto Goemz MD PCP - GeneralFamily Medicine2/29/24
--- OUTSIDE RECORDS SUMMARY | 2025-06-21 12:21 | XMS_ITS | Patient Health Record ---
Author Organization [facility] [place] Address [address] [place] [address] Care Team Providers Care Masking Machine Feeder Name Role Phone Arslan Gomez Primary Care Provider [phone] Tuan Reza [phone] Allergies Allergen (clinical drug ingredient) Drug/Non Drug Allergy documented on EMR Reaction Allergy Type Onset Date Status VicodinhivesDrug AllergyActiveoxycodoneOxycodonehivesDrug AllergyActiveSubstance with sulfonamide structure and antibacterial mechanism of action (substance) Sulfa AntibioticshivesDrug AllergyActivePenicillinhivesDrug AllergyActive Results Component Value Reference Range Notes CORTISOL AM Reviewed date:10/12/2024 02:03:50 PM Interpretation: Performing Lab: Notes/Report: [facility] , Cortisol - AM 11.7 6.2-19.4 ug/dL Vice President Compliance: Caesar Ybarra PhD, Phone: [phone] Performed at: - [facility] [address] [id number] Performing Lab: see note LC - [facility] LBFREE T3 Reviewed date:10/10/2024 11:39:58 AM Interpretation: Performing Lab: Notes/Report: [facility] ,[facility] T33.312.18-3.98 pg/mLPerforming Lab:see note - [facility] FREE T4 Reviewed date:10/10/2024 11:39:58 AM Interpretation: Performing Lab: Notes/Report: [facility] ,[facility] T41.110.76-1.46 ng/dLPerforming Lab:see note - [facility] LB PROF CHEM 8 (BAS METB) Reviewed date:10/10/2024 11:39:58 AM Interpretation: Performing Lab: Notes/Report: [facility] ,Fzvljv061454-822 mmol/LPotassium3.73.5-5.1 mmol/HBcogecrm17573-562 mmol/LCarbon Wqdwnze69.621.0-32.0 mmol/LAnion Gap15.9Tjxprhq3707-080 mg/dLBlood Urea Nitrogen 13.07.0-18.0 mg/dLCreatinine0.970.55-1.02 mg/dLEstimated GFR ( Marleni>60 >=60 mL/min/1.73m 2Estimated GFR (Non- Viola>60>=60 mL/min/1.73m 2BUN Creatinine Ratio13.6Guqbhap9.98.5-10.1 mg/dLPerforming Lab:see note - [facility] LBTSH Reviewed date:10/10/2024 11:39:58 AM Interpretation: Performing Lab: Notes/Report: [facility] ,Thyroid Stimulating Hormone4.0910.358-3.740 uIU/mLPerforming Lab:[facility] LBVITAMIN D 25 [place] Reviewed date:10/10/2024 11:39:58 AM Interpretation: Performing Lab: Notes/Report: [facility] ,Vitamin D38.8 >100 ng/mL Potential Toxicity <20 ng/mL Vit D deficient 30-100 ng/mL Vit D sufficient 20-<30 ng/mL Vit D insufficient Performing Lab:see note - [facility] LBHCG Qualitative* Reviewed date:04/19/2025 06:42:44 PM Interpretation: Performing Lab: Notes/Report: [facility] ,HCG QualitativeNEGATIVENEGATIVEPerforming Lab:[facility] LB Reason For Referral No Information Medications Medication SIG (Take, Route, Frequency, Duration) Notes Start Date End Date Status Cephalexin 500 MG 2 tabs Orally bid; Duration: 1 0 days 4ActivetraZODone HCl 100 MG1 tablet at bedtime Orally Once a dayActive Prazosin HCl 1 MG1 capsule at bedtime Orally Once a dayActivelamoTRIgine 25 MG1 tablet OrallyActivehydrOXYzine HCl 50 MG1 tablet as needed Orally Once a day BlvvckSzbjsnrr-Ybtgvusrz-Myjwfkpn 3.5-46789-1.11 drop into affected eye Ophthalmic Four times a day; Duration: 7 days4ActiveDrospirenone- Ethinyl Estradiol 3-0.03 MG1 tablet Orally Once a dayActivebusPIRone HCl 15 MG1 tablet Orally Twice a dayActiveARIPiprazole 5 MG1 tablet Orally Once a dayActive Venlafaxine HCl ER 150 MG1 capsule with food [...] containing alcohol in the past year?Monthly (2 points)Iqvjwb6BbyrsggqhdqpazQhzogadnARVLJ-W (Standard) Question Answer Notes Did you have [...] in the past year?Monthly or less (1 point)Qajblo1OfduolordvdokzHtgmtwfq Problems Problem Type SNOMED Code ICD Code Onset Dates Problem Status W/U Status Risk Notes Problem Chronic back pain (093889512) Chronic danie k pain (724.5) ActiveconfirmedProblemMononeuropathy of lower limb (410302814)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)ActiveconfirmedProblemLocalized, primary osteoarthritis of the ankle and/or foot (340694164)Primary osteoarthritis, left ankle and foot (M19.072)ActiveconfirmedProblemPain associated with internal prosthetic device (disorder) (361774253)Pain due to internal orthopedic prosthetic devices, implants and grafts, initial encounter (T84.84XA)ActiveconfirmedProblemSerous otitis media (51159706)Serous otitis media (H65.90)ActiveconfirmedProblemChronic fatigue syndrome (73832449)Chronic fatigue syndrome (R53.82)ActiveconfirmedProblemGraves' disease (005193395) Graves' disease (E05.00)Activeconfirmed Encounters Encounter Location Date Provider Diagnosis [facility] [address] [place] [address] 06/09/2025 Arslan Bebetolenin Plan Of Treatment No Information Insurance Providers Payer Name Payer Address Payer Phone Subscriber Number Group Number Insured Name Patient Relationship to Insured Coverage Start Date Coverage End Date [employer] PPO PLUS LOCAL PLAN [address] [place] [address] [id number] Roma Tovar Self - patient is the [...] Removal hardware in foot- Dr. Reza 05/2018 CHOLECYSTECTOMY ARSI Stent Rt Foot10/2008Right long finger mass removalLap Roselyn w/intraoperative kfgfanahuotfb06/17/2020Removal of hardware from left foot02/03/24Diagnostic LaparoscopyHospitalization History Reason Date(Month/Year) see above
--- OUTSIDE RECORDS SUMMARY | 2025-06-21 12:24 | XMS_ITS | CCD ---
Author Organization [facility] Care Team Providers Care Assistant Therapy Aide Name Role Phone MICHELLE, DR AKASH Murray [...] Provider UnavailAlon Looney MD Primary Care Provider [phone] LEWIS SEWELL Attending Unavailable FLYNN ARCHIBALD Attending Unavailable MY SINGH Attending Unavailable JAMAR AUSTIN Attending Unavailable JAMAR AUSTIN Referring Unavailable Alon Weber MD Primary Care Provider [phone] Erica POLK, Harley Simmons Attending Unavailable Allergies Allergy ClassificationReported Allergen(s)Allergy TypeDate of OnsetReaction(s) Facility (2 sources)HYDROcodoneDrug Nydyyev18-18-7843[facility] sources)oxyCODONEDrug Xxxeisj57-33-8615Cdf [facility] Repository (2 sources)PenicillinsDrug allergy (disorder)38-92-7379Dqs [facility] Repository (4 sources)Acetaminophen / HYDROcodoneDrug Ljpktcq10-41-2388ZdoyhnfKGOT Healthcare (4 sources)HYDROcodoneDrug Fwfvxge14-61-2886SjnziYLLJ Healthcare Work Phone: (3 sources)oxyCODONEDrug Raccspx85-15-0597BhaxiRUOV Healthcare (14 sources)Penicillin GDrug Svgtegg73-29-5420GGOB [facility] (14 sources)Penicillin G sodiumAllergy to refdbrxcr82-00-5498YwqfEEXC Healthcare (14 sources)PenicillinsDrug Bzmmlpj59-39-7729HavcrPOET Healthcare (14 sources)Sulfamethoxazole / TrimethoprimDrug Owtqbji21-02-7188PmlyXCUM Healthcare (14 sources)Sulfonamides (Antibiotic)Drug Qczgxte79-14-8208WKOX [facility] Medications Current Medications MedicationDrug Class(es)DatesSig (Normalized)Sig (Original)ARIPiprazole 5 mg oral tablet (9 sources)Atypical AntipsychoticARIPiprazole (Abilify) 5 MG tablet 1 (one) time each day at the same time ActivebusPIRone hydrochloride 15 mg oral tablet (11 sources)busPIRone (Buspar) 15 MG tablet every 12 (twelve) hours Active drospirenone 3 mg / ethinyl estradiol 0.03 mg oral tablet (13 sources)Progestin, EstrogenStart: 47-45-7849ytbroizlrdsu-ethinyl estradiol (Loreto, Ocella) 3-0.03 MG tablet Indications: Uses control TAKE 1 TABLET BY MOUTH EVERY DAY IN THE MORNING 84 tablet 3 03/24/2024 ActiveStart: 04-24-2023 End: 40-67-2736zguuppvlnrhq-ethinyl estradiol (Loreto, Ocella) 3-0.03 MG tablet Indications: [...] Stabilizer, Anti-epileptic AgentlamoTRIgine (LaMICtal) 25 MG tablet Nkinfq69 hr metFORMIN hydrochloride 500 mg extended release oral tablet (6 sources)BiguanideStart: 74-28-0794sxad 1 tablet by mouth every twenty-four hours at mealtimemetFORMIN XR (Glucophage-XR) 500 MG 24 hr tablet Indications: Hormone imbalance , Insulin resistance Take 1 tablet (500 mg) by mouth in the evening. Take with meals Do not crush, chew, or split. 30 tablet 11 03/19/2024 Activeondansetron 4 mg disintegrating oral tablet (9 sources)Serotonin-3 Receptor AntagonistStart: 58-34-5040dudjczujrgp ODT (Zofran-ODT) 4 MG disintegrating tablet every [...] Nucleoside Analog DNA Polymerase InhibitorStart: 04-06-2024 End: 02-77-0284jlhk 1 tablet by mouth once dailyvalACYclovir (Valtrex) 500 MG tablet Indications: Herpesviral vesicular dermatitis Take 1 tablet daily, by mouth, 30 days 30 tablet 11 09/17/2024 ActiveStart: 11-19-2023 End: 59-79-5746poux 1 tablet by mouth once dailyvalACYclovir (Valtrex) 500 MG tablet Indications: Herpesviral vesicular dermatitis Take 1 tablet daily, by mouth, 30 days 30 tablet 11 11/19/2023 03/03/2024 DiscontinuedStart: 08-08-2023 take 1 tablet by mouth once dailyvalACYclovir (Valtrex) 500 MG tablet Indications: Herpesviral vesicular dermatitis Take 1 tablet daily, by mouth, 30 days 30 tablet 08/08/2023 ActiveStart: 90-61-9050qvyb 1 tablet by mouth once dailyvalACYclovir (Valtrex) [...] sources)Patient encounter status; Translations: [Dietary counseling and surveillance]14-46-0303CgpnioyvSteurxbhinf deficiencies (2 sources)Vitamin D deficiency; Translations: [Vitamin D deficiency, unspecified]96-05-0038BmewtqiMezdi endocrine disorders (2 sources)Polycystic ovary syndrome; Translations: [Polycystic ovarian syndrome]51-91-0369UrwhckjJseud nutritional; endocrine; and metabolic disorders (2 sources)Weight increased; Translations: [Abnormal weight gain]10-06-2024 EpisodicOther skin disorders (2 sources)Loss of hair; Translations: [Nonscarring hair loss, unspecified] 22-58-4907MvlhgjngLpygumftdfi; intervertebral disc disorders; other back problems (6 sources)Spondylosis without myelopathy or radiculopathy, lumbar region; Translations: [Other intervertebraldisc degeneration, thoracic region]Onset: 98-95-0405TtnbkgmWvsrmjvefxtj (2 sources)COUGH, UNSPECIFIED; Translations: [COUGH, UNSPECIFIED]Onset: 80-92-1113Juzjjzrjihzw (1 source)CONTACT W/AND (SUSP) EXPOS COVID-19; Translations: [CONTACT W/AND (SUSP) EXPOS COVID-19]Onset: 22-19-9518Wkrppobrcnxt (1 source)LOW BACK PAIN, UNSPECIFIED; Translations: [LOW BACK PAIN, UNSPECIFIED] Onset: 92-63-5706Midkw infection (4 sources)Herpesviral vesicular dermatitis; Translations: [Herpesviral vesicular dermatitis]89-90-8427Hzvcndva Past or Other Problems Problem ClassificationProblemDateDocumented DateEpisodic/ChronicAbdominal pain (4 sources)Unspecified abdominal pain; Translations: [UNSPECIFIED ABDOMINAL PAIN]Onset: 59-06-8711UwibhhvoZyyyfduisrmnx mental health disorders (2 sources)Rolle; Translations: [Other symptoms and signs involving emotional state]66-91-3233OuqtntbjUcccm aftercare (1 source)Other group home (current) drug therapy; Translations: [OTH PLUG SHAPER HAND CURRENT DRUG THERAPY]Onset: 89-31-2113ZaxbipyiOekav endocrine disorders (2 sources)Disorder of endocrine system; Translations: [Endocrine disorder, unspecified]22-85-3470IhrnjajmLpqry nutritional; endocrine; and metabolic disorders (2 sources)Weight gain; Translations: [Abnormal weight gain]23-72-6955Nsjplaej Other upper respiratory infections (1 source)Acute upper respiratory infection, unspecified; Translations: [ACUTE UP RESPIRATORY INFECTION UNS]Onset: 70-42-5015IpwojrxjNevvrjfo codes; unclassified (2 sources)Flushing; Translations: [Flushing]95-26-9917YclinrywLfhxmoosijyb (1 source)COUGH, UNSPECIFIED; Translations: [COUGH, UNSPECIFIED]Onset: 09-03-2021 Results Test NameValueInterpretationReference RangeFacilityALL CBC WITH AUTO DIFFon 15-03-5601JILXKDBFU ABSOLUTE AUTO0.1N[facility] HealthcareBasophils/100 WBC (Bld)1.2 % 0.2 - 2.0 %[facility] HealthcareEosinophils/100 WBC (Bld)2.7 %0.9 - 7.0 %[facility] HealthcareErythrocyte distribution width (RBC) [Ratio]11.9 %11.0 - 15.0 %[facility] HealthcareHematocrit (Bld) [Volume fraction]44.5 %36.0 - 48.0 %[facility] Hemoglobin (Bld) [Mass/Vol]15.0 g/dL12.0 - 16.0 g/dLNOMS HealthcareIMMATURE GRANULOCYTES ABS AUTO0.01N[facility] HealthcareImmature granulocytes/100 WBC (Bld)0.2 % 0.0 - 0.5 %[facility] CenterLYMPHOCYTES ABSOLUTE AUTO2.4[facility] Lymphocytes/100 WBC (Bld)39.7 %20.5 - 60.0 %[facility]M Health CareH (RBC) [Entitic mass]31.3 pg26.7 - 34.0 pgNOSaint Mary's Hospital of Blue SpringsHC (RBC) [Mass/Vol]33.7 g/dL29.9 - 35.2 g/dLSSM Health CareV (RBC) [Entitic vol]92.7 fL81.0 - 99.0 fLGolden Valley Memorial HospitalMONOCYTES ABSOLUTE AUTO0.3NOCO HealthcareMonocytes/100 WBC (Bld)5.2 % 1.7 - 12.0 %[facility] CenterNEUTROPHILS ABSOLUTE AUTO3.1[facility] Neutrophils/100 WBC (Bld)51.0 %43.0 - 75.0 %[facility] Memorial HospitalPlatelet mean volume (Bld) [Entitic vol]10.4 fL9.5 - 13.5 fLGolden Valley Memorial HospitalTBH EO #0.2[facility] TBH GGL563OHXC [facility] RBC4.80NOSt. Louis VA Medical Center WBC6.0NOParkland Health Center CLINISYNCNOCO HealthcareUS PELVIS W/ TRANSVAGINALon 90-10-7006[place] [address] Ultrasound Report Signed Patient: RAJIV TOVAR MR#: [id number] : 1995 Acct:[id number] Age/Sex: 28 / F ADM Date: 09/10/23 Loc: [facility] Attending Dr: Flynn Archibald D.O. Ordering Physician: Flynn Archibald D.O. Date of Service: 09/10/23 Procedure(s): US pelvis w/ transvaginal Accession Number(s): [id number] cc: Flynn Archibald D.O.; Alon Weber M.D. [address] [address] Patient Name: RAJIV TOVAR MRN: [id number] date: 1995 Sex: F Assigned Patient Location: [facility] Current Patient Location: [facility] Accession/Order Number: [id number] Exam Date: 09/10/2023 08:28 Report Date: 09/10/2023 [...] Mejia M.D. Signed By: 09/10/2343 DD/ TD/TT: Internal Security Manager:TBHRadiology, Radiologist, MD - 09/10/2023 [place] [address] Ultrasound Report Signed Patient: RAJIV TOVAR MR#: [id number] : 1995 Acct:[id number] Age/Sex: 28 / F ADM Date: 09/10/23 Loc: [facility] Attending Dr: Flynn Archibald D.O. Ordering Physician: Flynn Archibald D.O. Date of Service: 09/10/23 Procedure(s): US pelvis w/ transvaginal Accession Number(s): [id number] cc: Flynn Archibald D.O.; Alon Weber M.D. The [address] [address] Patient Name: RAJIV TOVAR MRN: [id number] date: 1995 Sex: F Assigned Patient Location: [facility] Current Patient Location: [facility] Accession/Order Number: [id number] Exam Date: 09/10/2023 08:28 Report Date: 09/10/2023 [...] Mejia M.D. Signed By: 09/10/2343 DD/ TD/TT: Internal Security Manager: ZAK HealthcareRadiology Study observation (narrative)[facility] HealthcareUS PELVIS W/ TRANSVAGINALOrdered By: Radiologist Radiology on 10-35-3485ZMKT [employer] [facility] Work Phone: [phone]-18 PCR (CVDTB)on 35-40-4755BWXK-CoV-2 (COVID- 19) RNA MARY+probe Ql (Unsp spec)Not detectedNormalNOT DETECTEDThe [facility] HospitalComment on above:Result Comment: This test is not yet approved or cleared by the [place] FDA. When there are no FDA-approved or cleared tests available, and other criteria are met, FDA can make tests available under an emergency access mechanism called an Emergency Use Authorization (EUA). The EUA for this test is supported by the [place] of Health and Human Service's (HHS's) declaration [...] consistent with SARS-CoV-2.Performed By: #### CVDTBH #### [facility] [address] [place] [address] Dr. Karlos Cummings STREP CULTUREon 09-03-2021. pyogenes Ag Ql (Unsp spec) Culture Observations: NEGATIVE FOR GROUP A STREPTOCOCCUS.NormalThe [facility] Ohioment on above: Performed By: #### SSCRN, GRASTCX #### [facility] [address] [place] [address] Dr. Karlos Cummings AND B AGon 37-48-3429BMQPPYSEQXEGD [facility] Medical CenterComment on above:Result Comment: Negative for Flu A protein angiten. Infection due to Flu A cannot be ruled out. FluA angiten in the sample may be below the detection limit of the test.Performed By: #### INFLUAB #### [facility] [address] [place] [address] Dr. Karlos AugustinINFLUBNEGHSHolmes County Joel Pomerene Memorial HospitalComeaton rapids medical center on above: Result Comment: Negative for Flu B protein antigen. Infection due to Flu B cannot be ruled out. FluB antigen in the sample may be below the detection limit of the test.Performed By: #### INFLUAB #### [facility] [address] [place] [address] Dr. Karlos Cummings AGNegativeNormalNEGATIVE SEE COMMENTThe [facility] HospitalComment on above:Performed By: #### INFLUAB #### [facility] [address] [place] [address] Dr. Karlos Price AGNegativeNormalNEGATIVE SEE COMMENTThe [facility] on above:Performed By: #### INFLUAB #### [facility] [address] [place] [address] Dr. Yilan ChangINTERNAL CONTROLSWithin Normal LimitsNormalWithin Normal Limits The [facility] HospitalComment on above:Performed By: #### INFLUAB #### [facility] [address] [place] [address] Dr. Karlos AugustinSTREPT SCREENon 39-05-5621FSYXS SCREEN ANegativeNormalNEGATIVEThe [facility] HospitalComment on above:Performed By: #### SSCRN, GRASTCX #### [facility] [address] [place] [address] Dr. Karlos Healy HCG QUALon 20-54-8916PSHOIJINI, QUALNegativeNormalNEGATIVE The [facility] HospitalComment on above:Performed By: #### PREG #### [facility] [address] [place] [address] Dr. Karlos Healy HCG QUALon 99-60-7882YNQDOZEDR, QUALNegativeNormalNEGATIVE The [facility] HospitalComment on above:Performed By: #### PREG #### [facility] [address] [place] [address] Dr. Karlos AugustinCT ABDOMEN AND PELVIS W IV CONTRASTon 36-81-7767RQ ABDOMEN AND PELVIS W IV CONTRASTUnProtestant Deaconess Hospital Department of Radiology [address] [place] [phone] Patient Name: RAJIV TOVAR : 1995 Sex: F Age: Race: White Pt. Location: [facility] Patient Status: D Ordered Date: 03/21/2021 4:00:00 PM Completed Date: 04/05/2021 03:49 PM Requesting Provider: ДМИТРИЙ CALLAHAN Attending Provider: ДМИТРИЙ CALLAHAN Report Copy To: ALON WEBER Signs & Symptoms: R10.31 Right lower quadrant pain I10 History: Josefa Is patient on meds for HTN or DM? 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 Per [employer] for CPT 32636 Ref#[id number] Med Nec-Passed *SLA Comments: Exam: CT ABDOMEN [...] Electronically signed: Noemy Stanley M.D.. Transcribed by: [email or web address], User Resident: Electronically Signed by: NOEMY STANLEY @ 04/07/2021 01:25 PMNormalThe [facility] SystemCCC CHEST 2 [facility] 12-01-7319JIZ CHEST 2 [facility] Department of Radiology [address] [place] [phone] Patient Name: RAJIV TOVAR : 1995 Sex: F Age: Race: White Pt. Location: [facility] Patient Status: D Ordered Date: 03/21/2021 2:25:00 PM Completed Date: 03/21/2021 02:22 PM Requesting Provider: ДМИТРИЙ CALLAHAN Attending Provider: Report Copy To: Signs & Symptoms: R07.81 Pleurodynia I10 History: Josefa Comments: right ribs pain Exam: [facility] CHEST 2 S [facility] CHEST 2 S 03/21/2021 2:22 PM CLINICAL [...] disease Electronically signed: Cyril Olivo. Transcribed by: [email or web address], User Resident: Electronically Signed by: CYRIL OLIVO @ 03/22/2021 02:39 [facility] HospitalComment on above:Order Comment: right ribs painCoding Summary.on 07-10-3557Natbdf Summary. CD:[id number]:[id number]+PGhlYWQ+BA8VUMCdE42yjEZziR7IR5eBKN2WRSBXGFWRZY4UPD2rx PF1YStkQ4DhpdLx [file] OiBj (more content not included)...NormalUniversity Hospitals Geneva Medical CenterAuto Diffon 22-75-8140Wcyrgfacn/100 WBC (Bld)0.4 %Normal0.0-2.0[facility] Comment on above:Order Comment: Order Added by Discern Expert.Performed By: #### 7048434, 8071871, 46875448, 77741182, 86546578, 51205571, 2424115, 7336484, 0781035, 7564270 ####[facility] [address] [place], [place] [address]Arwownofa/Leukocytes Auto (Bld) [Pure # fraction]0.0 E9/L Normal0.0-0.2FCleveland ClinicComment on above:Order Comment: Order Added by Discern Expert.Performed By: #### 2802535, 2280879, 43766920, 27348145, 43228041, 04643821, 0963031, 2027429, 9368598, 0874257 ####[address] [address]Rpekvyfmqxx/100 WBC (Bld)0.6 % Normal0.0-8.0[facility] Geneva Medical CenterComment on above:Order Comment: Order Added by Discern Expert.Performed By: #### 8212353, 3337951, 32375991, 67983485, 28082221, 79540762, 4305137, 0370370, 4375237, 5611602 ####[facility] [address] [place], [place] [address]Hyfkhjnrahd/Leukocytes Auto (Bld) [Pure # fraction]0.0 E9/LNormal0.0-0.5FCleveland ClinicComment on above:Order Comment: Order Added by Discern Expert.Performed By: #### 3163718, 5289322, 09739350, 52684613, 38400120, 74190626, 4143196, 7651716, 3086372, 5495655 ####[address] [address]Uihupibkdop/100 WBC (Bld)7.9 %Low14.0-50.0[facility] Medical CenterComment on above:Order Comment: Order Added by Discern Expert. Performed By: #### 4913587, 4519597, 98876940, 71265671, 54409009, 87256874, 4967837, 0595265, 3602338, 7754758 ####[address] [address]Soekkihzpeu/Leukocytes Auto (Bld) [Pure # fraction] 0.4 E9/LLow1.0-4.0[facility] Medical CenterComment on above:Order Comment: Order Added by Discern Expert.Performed By: #### 1238025, 2060930, 64689991, 56291638, 68760911, 19543055, 4785155, 6278310, 1531740, 3669661 ####[address] [address]Htqazqnpx/100 WBC (Bld)5.5 %Normal4.0-14.0[facility] Medical CenterComment on above:Order Comment: Order Added by Discern Expert.Performed By: #### 1726848, 5861079, 65750330, 95630478, 94329450, 76384020, 7871499, 0596865, 7498771, 1088505 ####[address] [address] Monocytes/Leukocytes Auto (Bld) [Pure # fraction]0.3 E9/LNormal0.2-1.0[facility] Medical CenterComment on above:Order Comment: Order Added by Discern Expert.Performed By: #### 9385186, 6573668, 12562312, 02179895, 98138193, 08073206, 1974898, 0360357, 6026028, 4503594 ####[address] [address]Sbklrjkfoqv/100 WBC (Bld)85.6 %High 36.0-75.0[facility] Medical CenterComment on above:Order Comment: Order Added by Discern Expert.Performed By: #### 0564898, 0618411, 40659114, 20082939, 44610749, 58184837, 5560694, 2113088, 1399979, 6155524 ####[facility] [address] [place], [place] [address]Eadlsolfwjl/Leukocytes Auto (Bld) [Pure # fraction]4.5 E9/LNormal2.0-7.5FCleveland ClinicComment on above:Order Comment: Order Added by Discern Expert.Performed By: #### 5161590, 4874987, 76191264, 84488132, 01059124, 23294726, 9499233, 6590751, 5148864, 8636267 ####[facility] [address] [place], [place] [address]G hCG Qualon 95-23-7500Ddjp hCG QlNegativeNormalUniversity Hospitals Geneva Medical CenterComment on above:Performed By: #### 2748193, 1077971, 85536292, 53716983, 70415288, 77287009, 6970403, 8789588, 0691860, 4666635 ####[facility] [address] [place], [place] [address]PGGgn 02-28-2021 Creatinine [Mass/Vol]0.7 mg/dLNormal0.5-1.3FCleveland ClinicComment on above:Performed By: #### 4735326, 6464024, 67301335, 06124103, 86018997, 25400565, 9837335, 2497678, 2504163, 7837181 ####[facility] [address] [place], [place] [address]Cbqz nitrogen [Mass/Vol]9 mg/dLNormal 5-21[facility] Medical CenterComment on above:Performed By: #### 7365618, 5980242, 70355754, 54683862, 18141909, 41110093, 8372959, 4924817, 1673579, 1934575 ####[facility] [address] [place], [place] [address]Xjpm nitrogen/Creatinine [Mass ratio]13 No QjzfjLztedh66-49PqzjwuUniversity Hospitals Geneva Medical CenterComment on above:Performed By: #### 8577575, 7115804, 95475325, 74844219, 84787737, 98330153, 6239559, 2198919, 8367181, 7649454 ####[facility] [address] [place], [place] [address]Hpryy gap [Moles/Vol]14 mmol/LNormal6-16[facility] Medical CenterComment on above: Performed By: #### 8807970, 2641911, 31346054, 73951756, 18922973, 44024023, 9591944, 4169029, 5211635, 3131055 ####[facility] [address] [place], [place] [address]Pdpvfbj [Mass/Vol]8.5 mg/dLLow8.9-11.1FCleveland ClinicComment on above:Performed By: #### 5822665, 2360350, 69869590, 81466090, 87654917, 72349394, 1286166, 5018964, 4059475, 9230045 ####[facility] [address] [place], [place] [address]Eajouyju [Moles/Vol]102 mmol/PGocuzb528-862XqvqrlUniversity Hospitals Geneva Medical CenterComment on above: Performed By: #### 2857602, 8825862, 20138940, 65804011, 49621103, 12174369, 1262252, 6244962, 8034951, 9389890 ####[facility] [address] [place], [place] [address]RM5 [Moles/Vol]21 mmol/OYdsoud96-00IncchwUniversity Hospitals Geneva Medical CenterComment on above:Performed By: #### 6963491, 7467202, 21088610, 65242994, 07780340, 70330539, 5717254, 0798685, 2148656, 8758980 ####[facility] [address] [place], [place] [address]Kuqftij [Mass/Vol]95 mg/zKYqtjjh74-504QufsexUniversity Hospitals Geneva Medical CenterComment on above:Result Comment: If this glucose result represents a fasting glucose, interpretation should refer tothe following reference range: 55-99 mg/dLPerformed By: #### 2591252, 3402870, 63514072, 36556294, 15539716, 02421666, 4636129, 8355589, 7822197, 6411179 ####[facility] [address] [place], [place] [address]Aqxiwaoqc [Moles/Vol]3.6 mmol/LNormal3.5-5.3FCleveland ClinicComment on above:Performed By: #### 2553578, 2789286, 11104840, 07793535, 57391328, 69304191, 7963592, 2083762, 3631813, 4714194 ####[facility] [address] [place], [place] [address]Adkfrx [Moles/Vol]133 mmol/RLjy655-973AgejdgUniversity Hospitals Geneva Medical CenterComment on above: Performed By: #### 3792615, 8708603, 88749808, 09738967, 25374790, 63041528, 6255450, 0892050, 2527139, 7597794 ####[facility] [address] [place], [place] [address]JFI w/ Auto Diffon 44-89-8539Hpnhzbvuydx distribution width (RBC) [Ratio]12.4 %Kpnkdh62.9-14.2FCleveland Clinic Comment on above:Performed By: #### 3971366, 4608243, 04453687, 15496121, 76013719, 59320703, 5707262, 6628047, 0927118, 0475149 ####[facility] [address] [place], [place] [address]Cozimznyil (Bld) [Volume fraction]38.1 %Abilzj17.0-46.0[facility] Medical CenterComment on above: Performed By: #### 4120696, 6848580, 67271619, 92116569, 32977043, 48997517, 8780734, 0214204, 3526941, 3845954 ####[facility] [address] [place], [place] [address]Ktvqkcctnd (Bld) [Mass/Vol]13.3 g/bIIfgpek96.0-16.0 [facility] CenterComment on above:Performed By: #### 1453721, 8282170, 16770344, 49090011, 83648083, 35238249, 2987085, 3258442, 5376157, 6878679 ####[facility] [address] [place], [place] [address]CPT (RBC) [Entitic mass]31.7 wySakxam67.0-34.0[facility] Medical CenterComment on above:Performed By: #### 9203829, 2723316, 62340604, 31651544, 19411943, 08071029, 1828006, 3819730, 1932904, 3165701 ####[facility] [address] [place] [address]MXDF (RBC) [Mass/Vol]35.0 g/dLNormal 31.4-36.0[facility] CenterComment on above:Performed By: #### 4317833, 4654829, 92153853, 97065759, 11834855, 75516784, 1994247, 7702261, 0583378, 6694460 ####[facility] [address] [place], [place] [address]PYV (RBC) [Entitic vol]90.8 dMRebuxy55.0-100.0[facility] Comment on above:Performed By: #### 4353933, 2601415, 09027349, 52054131, 21044952, 04108419, 4836569, 9278004, 9317459, 1608251 ####[address] [place], [place] [address]Hpctokvp mean volume (Bld) [Entitic vol]10.0 fLNormal6.4-10.8[facility] Medical CenterComment on above: Performed By: #### 9852168, 7282645, 51370435, 35651616, 94818570, 00068884, 9950532, 2268326, 2853921, 0101221 ####[address] [address]Euebuqvpn (Bld) [#/Vol]144.0 E9/IPdi420.0-500.0 [facility] CenterComment on above:Performed By: #### 7603556, 4033131, 20509374, 62505374, 70128485, 57601629, 8725130, 9334105, 3284214, 0628579 ####[address] [address]YZO (Bld) [#/Vol]4.2 E12/LLow4.3-5.9[facility] CenterComment on above: Performed By: #### 5133787, 8631046, 20103151, 23075705, 80765531, 26732998, 7086495, 4555798, 9039204, 7658424 ####[address] [address]LJJ corrected for nucl RBC Auto (Bld) [#/Vol]5.3 E9/LNormal4.0-11.0[facility] CenterComment on above:Performed By: #### 2374733, 2981866, 60725464, 34904602, 58677822, 44797930, 1705672, 8510457, 1317648, 8983224 ####[address] [address]UAKVV-00 ([facility])on 60-61-7948OASS-CoV-2 (COVID-19) RNA MARY+probe Ql (Unsp spec)Not detectedNormalNot DetectedFisher Eastland Medical CenterComment on above:Result Comment: This test result should be correlated with clinical presentations and medical history by a healthcare provider to determine its clinical significance. This assay was performed by a reverse transcriptase real-time polymerase chain reaction (rt PCR) method on the [employer] system. This test has been authorized only [...] is terminated or revoked sooner.Performed By: #### [id number] #### [facility] [address] [place] [address] 46040JJZG-QkB-6 (COVID-19) RNA MARY+probe Ql (Unsp spec)PassNormal [facility]aug[facility] Medical CenterComment on above:Performed By: #### [id number] #### [facility] [address] [place] [address] 53447Vydbwmgt source Nom (Unsp spec)NasalNormalUniversity Hospitals Geneva Medical CenterComment on above:Performed By: #### [id number] #### [facility] [address] [place] [address] 42731Ulbegpzr in HealthcareNONPomerene Hospital Comment on above:Performed By: #### [id number] #### [facility] [address] [place] [address] 72173Ozngy TestUnknownNPomerene HospitalComment on above:Performed By: #### [id number] #### [facility] [address] [place] [address] 920[address]Ongnktvubitd?NONPomerene HospitalComment on above:Performed By: #### [id number] #### [facility] [address], [place] [address]PCVOERnogqfWpoaelSumma Health Barberton CampusComment on above: Performed By: #### [id number] #### [facility] [address], [place] [address]Jglplics?NONPomerene HospitalComment on above: Performed By: #### [id number] #### [facility] [address] [place] [address] 25333Xyazbqt in a [facility] Care SettingNONPomerene HospitalComment on above:Performed By: #### [id number] #### [facility] [address] [place] [address] 70236Tlwcgxjlbpz as defined by [facility]ENTERYESMercy Health Kings Mills HospitalComment on above:Performed By: #### [id number] #### [facility] [address] [place] [address] 201[address]Hjyuboc for Treatmenton 12-88-8506Cilhmtj for Treatment [id number]#1.00CD:127NoSumma Health Barberton CampusD-Dimeron 72-21-4460Ullpmp D-dimer FEU (PPP) [Mass/Vol]388 CD:[id number] Cxaigy497-959QulyxcUniversity Hospitals Geneva Medical CenterComment on above:Result Comment: This assay is intended [...] skin infections Liver cirrhosis PregnancyPerformed By: #### 9652719, 0180530, 01461171, 26386539, 10655804, 85182352, 9198452, 6699062, 2756059, 5043423 ####[facility] [address] [place], [place] [address]Cxsiewcok Instructionson 02-28-2021 Discharge [id number]#1.00CD:127Normal [facility] Clinical Summaryon 80-50-2307WW Clinical Summary [address] [address] ED Clinical Summary Person Information Name: RAJIV TOVAR/[facility] Age: 25 Years : 1995 Sex: Female Language: Greenlandic PCP: Alon Weber MD Marital Status: Single [...] 11:17:01 02/28/2021 11:17:01 02/28/2021 11:17:01 ADDRESS: [address] [place] [id number] PHYS DOC NOTES: MEDICAL INFORMATION: Prescriptions Given: [...] Follow up: With: Address: When: Alon Weber [address] [place] [address], [place] [address] Business (1) In 3 days DIAGNOSIS: Chest pain; Viral URINormalFisher Eastland Medical CenterED Note-Physicianon 89-99-4603VK Note-PhysicianBasic Information Time Seen: Laureano Phillip DO [...] hCG Qual CBC w/ Auto Diff COVID-19 ([facility] D-Dimer ECG 12 Lead Adult ED Cardiac [...] Information Alon Weber In 3 days [address] [facility] [place] [id number] Business (1) Additional Instructions: Patient Education COVID-19: How to Protect Yourself and Others - [facility] COVID-19 Frequently Asked Questions Upper Respiratory [...] Denies Alcohol Use, 01/30 (more content not included)...[facility] Mills HospitalComment on above:Result Comment: Electronically Signed By: Laureano Phillip DO\.br\Date and Time Signed: 02/28/21 11:03EDTED Patient Summaryon 04-14-9859CP Patient Summary [address] [address] Patient Discharge Instructions Person Information Name: RAJIV TOVAR Age: 25 Years Arrival Date: 02/28/2021 09:10:34 Discharge Diagnosis: Chest pain; Viral URI Primary Care Physician: Alon Weber MD Provider Information Primary Provider: Laureano Phillip DO Advanced Reservationist:None The exam and treatment you received in the Emergency Department were for an urgent problem and are not intended as complete care. It is important that you follow up with a doctor, nurse practitioner,or physician?s prosthetic assistant for ongoing care. If your symptoms [...] Follow-up Instructions: With: Address: When: Alon Weber [address] [place] [address], [facility] [place] [address] Business (1) In 3 days [...] opioids can be used to help relieve ctvdvjit-lj-pqshjz pain and are often prescribed following a [...] be struggling with addiction, tell your health long term care social worker and ask for guidance or (more content not included)...NormalFisher Husam Medical CenterHep Func Panelon 19-70-9358RLB [Catalytic activity/Vol]52 Int._Unit/BOyryhb95-33MlwqtxUniversity Hospitals Geneva Medical CenterComment on above:Performed By: #### 9397368, 9219332, 89481598, 64471846, 08196821, 70855456, 2998129, 8344897, 9574470, 6825615 ####[facility] [address] [address]Hermqyo [Mass/Vol]4.2 g/dLNormal3.3-5.0[facility] CenterComment on above:Performed By: #### 6786901, 8513490, 82986401, 31724407, 02928761, 89401488, 1021085, 2218482, 6433215, 0136770 ####[address] [address]Ldkbeah/Globulin (S) [Mass conc ratio]1.0Hqmgtv5.1-2.2FCleveland ClinicComment on above:Performed By: #### 6755944, 5054235, 04424025, 06870289, 25834429, 21863364, 1274240, 3028630, 2861552, 7404694 ####[address] [address]YDA No additional P-5'-P [Catalytic activity/Vol]48 Int._Unit/LHigh6-46[facility] CenterComment on above:Performed By: #### 9744504, 6627233, 91849435, 77552824, 50513490, 65324690, 3433919, 6000622, 3254229, 8497184 ####[facility] [address] [address]PCB [Catalytic activity/Vol]39 Int._Unit/LNormal5-43[facility] Medical CenterComment on above:Performed By: #### 6153770, 8595330, 48729207, 53589818, 32278893, 03864081, 0829111, 8253921, 0172440, 4864817 ####[facility] [address] [place] [address] Bilirubin [Mass/Vol]1.2 mg/dLHigh0.0-1.1FCleveland ClinicComment on above:Performed By: #### 9421583, 2564643, 27665204, 46318931, 29633784, 61670609, 9980440, 1583463, 1681828, 5241852 ####[facility] [address] [place] [address]Jnxkubyix.direct [Mass/Vol]0.2 mg/dL Normal0.1-0.4FCleveland ClinicComment on above:Performed By: #### 2372625, 1030835, 28650761, 67390856, 78970188, 60746532, 7262166, 2872343, 8568538, 0493243 ####[address] [address]Zaxdcqqzi.indirect [Mass or moles/Vol]1.0 mg/dLHigh0.1-0.9 [facility] CenterComment on above:Performed By: #### 4842255, 3517054, 88296268, 44661000, 29260964, 32102739, 4524837, 7165019, 8374796, 6769688 ####[address] [address] Globulin (S) [Mass/Vol]2.9 g/dLNormal1.4-4.0[facility] CenterComment on above:Performed By: #### 1202917, 1574021, 51247225, 43094919, 04531951, 46184996, 1613039, 5787242, 1601035, 1805304 ####[address] [address]Ziddmdt [Mass/Vol]7.1 g/dLNormal 6.0-7.8[facility] Medical CenterComment on above:Performed By: #### 9137163, 3937522, 97264246, 77077606, 59913440, 82206638, 2894746, 6859598, 9311024, 5881971 ####[facility] [address] [place], [place] [address]Demssu Levelon 90-59-9272Ytkpcs [Catalytic activity/Vol]33 U/LZzbcrl37-52 [facility] CenterComment on above:Performed By: #### 2811697, 2576303, 24766716, 89976512, 52230231, 26761432, 5182546, 4588166, 8491566, 7405184 ####[facility] [address] [place], [place] [address]JQ & PTTon 55-44-3484rWQW Coag (PPP) [Time]31.5 second(s)Fccieh62.1-36.5FCleveland ClinicComment on above:Result Comment: Heparin therapeutic range (represented by Anti-Factor Xa activity of 0.2 - 0.4 U/mL) corresponds to PTT of 56.6 - 109.0 sec.Performed By: #### 7973303, 4877425, 37230745, 74662859, 90570490, 51344509, 2193318, 2969479, 7540510, 9210512 ####[facility] [address] [place], [place] [address]TAU Coag (PPP) [Relative time]1.1 {INR}Invalid Interpretation CodeFisher Johns Hopkins HospitalComment on above:Result Comment: INR results are specifically intended to assess patients stabilized on long-term Anticoagulation therapy suggested INR?s ?Less Intensive Anticoagulation? 2.0 ? 3.0 Conventional Range 3.0 ? 4.5Performed By: #### 5081680, 2660119, 68474082, 32716417, 32699328, 79881684, 0944326, 3934113, 4754069, 7160870 ####[facility] [address] [place], [place] [address]DL Coag (PPP) [Time]13.1 second(s)High10.2-12.9[facility] Medical CenterComment on above: Performed By: #### 7521410, 6759803, 81841419, 56659485, 94304158, 08237493, 8664345, 8626209, 0083193, 9595396 ####[facility] [address] [place], [place] [address]Cxmnydpjulhwh/Work Noteson 02-28-2021 Prescriptions/Work [id number]#1.00CD:127 NormalUniversity Hospitals Geneva Medical CenterTroponin 0 Hr.on 82-93-1673Plvjmsxd I.cardiac [Mass/Vol]ng/mLLow10.10-27.10[facility] CenterComment on above:Result Comment: The 95% CI (Confidence Interval) PPV (Positive Predictive Value) for myocardial infarction in females is 38 pg/mL, in males 51 pg/mL. The results should be used in conjunction with clinical conditions of myocardial infarction. (Access High Sensitivity Troponin I Instructions For Use, Yenifer Loki, January 2018)Performed By: #### 0631920, 3734947, 09558050, 20565025, 27576959, 89003347, 3257701, 4570382, 8482290, 6763065 ####[facility] [address] [place], [place] [address]HZ Chest Single Viewon 50-22-8841II Chest Single ViewExam Date/Time: 02/28/2021 10:21 EDT [...] Tereso Granger MD Transcribed by: OLGA Technologist: SantaUniversity Hospitals Geneva Medical CentereGFRon 71-92-3787RWF/1.73 sq M.predicted among blacks MDRD (S/P/Bld) [Vol rate/Area] mL/min/{1.73_m2}Normal>=59[facility] Medical CenterComment on above:Order Comment: Order added by Discern Expert.Result Comment: eGFR is race adjusted. AA=.Performed By: #### 5657087, 2391994, 11533552, 85218958, 74297001, 94653511, 6145127, 3188674, 8050414, 6398167 ####[facility] [address] [place], [place] [address]VUL/1.73 sq M.predicted among non-blacks MDRD (S/P/Bld) [Vol rate/Area]mL/min/{1.73_m2}Normal>=59[facility] Medical CenterComment on above:Order Comment: Order added by Discern Expert. Result Comment: Chronic kidney disease could be indicated at eGFR's of less than 60 mL/min/1.73m2. Kidney failure is indicated at less than 15 mL/min/1.73m2. Performed By: #### 2820113, 5421331, 12587614, 98031569, 69272817, 15467325, 5011316, 1344044, 2141342, 5783302 ####[facility] [address] [place], [place] [address]S Urineon 41-67-6022Jloevhwu identified Cx Nom (U) Microbiology PROCEDURE: Urine [...] R1: This test was performed at: [facility], [address] [place] [address], [address]- , , CryqkhGqvplcMercy Health Kings Mills HospitalComment on above:Performed By: #### 05459404, 1537948 ####[facility] [address] [place] [address]Uzqgvq Summary.on 68-18-4177Jthsnu Summary. CD:[id number]:[id number]+PGhlYWQ+KJ1VTQEkZ30mbYBtwM2RR7hKYJ5TUNKWHFVDPV3DGL7ut YA4WHbjD6WdtaXr [file] OiBj (more content not included)...[facility] HospitalB hCG Qualon 58-62-9445Zkto hCG QlNegativeMercy Health Kings Mills HospitalComment on above: Performed By: #### 5853861, 2366011, 5052715, 42295520, 6475375, 40982262, 8016366 ####[facility] [address] [place], [place] [address]Discharge Instructionson 32-91-0654Qhpgmemad Instructions [id number]#1.00CD:127NoA[facility] Clinical Summaryon 83-92-8078EJ Clinical Summary [address] [address] ED Clinical Summary Person Information Name: RAJIV TOVAR/[facility] Age: 25 Years : 1995 Sex: Female Language: Greenlandic PCP: Alon Weber MD Marital Status: Single [...] 23:43:48 01/30/2021 23:43:48 01/30/2021 23:43:48 ADDRESS: [address] [place] [id number] PHYS DOC NOTES: MEDICAL INFORMATION: Prescriptions Given: New Medications [facility] #[id number], [address], [place] [id number], [phone] cephalexin (Keflex 500 mg Cap) 1 Capsules [...] up: With: Address: When: Alon Gus [address] [facility], [place] [address] Business (1) In 3 days 02/02/2021 DIAGNOSIS: Acute UTINormalFisher Husam Medical CenterED Note-Physicianon 82-78-5615EZ Note-Physician CD:[id number]:[id number]UyHigkHzPSihUw9jw6ahGM07jq9cHpMuGi 8+CvpyIV0INGpJYNIp [file] Y (more content not included)...NormalUniversity Hospitals Geneva Medical CenterComment on above:Result Comment: Electronically Signed By: Joshua Hollingsworth DO.br\Date and Time Signed: 01/30/21 23:39 EDTED Patient Education Noteon 13-21-3500HB Patient Education NoteObstetrics and Gynecology Urinary Tract [...] this condition includes: ? Antibiotic medicine. ? Scbc-gyb-numzdrd medicines to treat discomfort. ? Drinking enough [...] these instructions at home: Medicines ? Take fhzp-tmu-mltbyyb and prescription medicines only as told by [...] is important. This in (more content not included)...[facility] Patient Summaryon 90-57-6994UT Patient Summary [address] [address] Patient Discharge Instructions Person Information Name: RAJIV TOVAR Age: 25 Years Arrival Date: 01/30/2021 20:17:08 Discharge Diagnosis: Acute UTI Primary Care Physician: Alon Weber MD Provider Information Primary Provider: Joshua Hollingsworth DO Advanced Reservationist:None The exam and treatment you received in the Emergency Department were for an urgent problem and are not intended as complete care. It is important that you follow up with a doctor, nurse practitioner,or physician?s prosthetic assistant for ongoing care. If your symptoms [...] Follow-up Instructions: With: Address: When: Alon Gus [address] [place] [address], [facility] [place] [address] Business (1) In 3 days 02/02/2021 In the event that this physician does not participate in your insurance network, please consult with your insurance company to find a nearby participating provider. Patient Education Materials: Urinary Tract Infection, Adult A MESSAGE TO ALL PATIENTS REGARDING OPIOIDS PRESCRIPTION OPIOIDS: WHAT YOU NEED TO KNOW Prescription opioids can be used to help relieve ywcxbxdn-zn-zizteb pain and are often prescribed following a [...] your community drug take- back program or [employer] mail-back program, or flush them down the toilet, following guidance from the Food and Drug Administration (www.fda.gov/Drugs/ResourcesForYou). ? Visit www.cdc.gov/drugoverdose to learn about the risks of opioids abuse and overdose. ? If you believe you may be struggling with addiction, tell your health long term care social worker and ask for guidance or call [facility]?S National Helpline at 3-733-768-IDDK. y Source: [place] Department of Health a (more content not included)...NormalUniversity Hospitals Geneva Medical CenterUA With Cult Reflexon 43-55-5665Xqpjcchm LM Ql (Urine sed)1+ /HPFAbnormalTraceUniversity Hospitals Geneva Medical CenterComment on above:Performed By: #### 87846676, 5729976 ####[facility] [address] [place], [place] [address]Fkwzalnhd Ql (U)NegativeNormalNegativeUniversity Hospitals Geneva Medical CenterComment on above:Performed By: #### 27749707, 8252592 ####[facility] [address] [place], [place] [address]Vpnpcvz (U)CLOUDY AbnormalClearFisher Johns Hopkins HospitalComment on above:Performed By: #### 74297920, 4636404 ####[facility] [address] [place], [place] [address]Szawa (U)YELLOWNormalYellowUniversity Hospitals Geneva Medical Center Comment on above:Performed By: #### 32358926, 2704826 ####[facility] [address] [place], [place] [address]Orgdqnjv LM Ql (Urine sed) PresentNormalUniversity Hospitals Geneva Medical CenterComment on above:Performed By: #### 83841616, 8527348 ####[address] [address]Rliguirmjp cells.squamous LM.HPF (Urine sed) [#/Area]0-2 Normal0-2Fisher Johns Hopkins HospitalComment on above:Performed By: #### 41298601, 6224320 ####[place] [address]Glucose Test strip (U) [Mass/Vol]NegativeNormalNegative [facility] Medical CenterComment on above:Performed By: #### 98170836, 0553576 ####[address] [address] Hemoglobin Ql (U)TRACEAbnoalNegLima City HospitalComment on above:Performed By: #### 21010723, 4745518 ####[place] [address]Ketones (U) [Mass/Vol]NegativeNormal NegativeUniversity Hospitals Geneva Medical CenterComment on above:Performed By: #### 40404854, 5368715 ####[place] [address]Lithium.plasma/Grainola.RBC (Bld) [Mass ratio]4-0Kiwhmb8-2UkqiroCleveland ClinicComment on above:Performed By: #### 05368809, 6751623 ####[address] [address]Mwkgy Ql (Urine sed)TRACENormProMedica Fostoria Community HospitalComment on above:Performed By: #### 47296346, 5287342 ####[address] [address]Cvxnjcu Ql (U)PositiveAbnormalNegativeUniversity Hospitals Geneva Medical CenterComment on above:Performed By: #### 50722935, 1243750 ####[address] [address]tN (U)7.5 [pH]Invalid Interpretation Code5.0-9.0[facility] Medical CenterComment on above:Performed By: #### 83143584, 4363981 ####[address] [address]Jghetci (U) [Mass/Vol]NegativeNormalNegativeUniversity Hospitals Geneva Medical CenterComment on above:Performed By: #### 96688588, 5707406 ####[address] [address] Specific gravity (U) [Rel density]1.020Invalid Interpretation Code1.005-1.030 [facility] Medical CenterComment on above:Performed By: #### 80208585, 2552061 ####[address] [address]Kgvb of Urine collection methodClean CatchNormProMedica Fostoria Community HospitalComment on above:Performed By: #### 32475486, 5723467 ####[address] [address]Drbdwxglzmtu Qn (U)0.2 {Arnie'U}/dL Normal0.0-1.0[facility] Geneva Medical CenterComment on above:Performed By: #### 81641965, 9463244 ####[address] [address]TJR Auto Ql (U)1+AbnormalNegativeUniversity Hospitals Geneva Medical Center Comment on above:Performed By: #### 38724533, 3253468 ####[address] [address]PUR LM.HPF (Urine sed) [#/Area]1-25Hvgfirjw0-1Qkpdtg Johns Hopkins HospitalComment on above:Performed By: #### 16215761, 3378784 ####[address] [address]Nitz Diffon 77-59-6956Fkzukwyku/100 WBC (Bld)0.4 %Normal 0.0-2.0[facility] Medical CenterComment on above:Order Comment: Order Added by Discern Expert.Performed By: #### 0749462, 0108237, 8539997, 93944132, 8693292, 65103210, 6971579 ####[address] [address]Kykglsogm/Leukocytes Auto (Bld) [Pure # fraction]0.0 E9/L Normal0.0-0.2FCleveland ClinicComment on above:Order Comment: Order Added by Discern Expert.Performed By: #### 7329198, 3714873, 0185356, 07949594, 7093671, 37325389, 9219503 ####[address] [address]Pdgkpbkfnio/100 WBC (Bld)1.4 %Normal0.0-8.0[facility] Geneva Medical CenterComment on above:Order Comment: Order Added by Discern Expert. Performed By: #### 5783970, 3553834, 7237146, 73310726, 3674033, 90304520, 8512680 ####[address] [address]Sxqujqeuhrw/Leukocytes Auto (Bld) [Pure # fraction]0.1 E9/LNormal0.0-0.5 [facility] Medical CenterComment on above:Order Comment: Order Added by Discern Expert.Performed By: #### 1441682, 7041670, 6011792, 42144650, 0661647, 79137020, 1809203 ####[address] [address]Nzmyaqciuys/100 WBC (Bld)23.7 %Yojywr66.0-50.0[facility] Medical CenterComment on above:Order Comment: Order Added by Yifan Expert. Performed By: #### 5349916, 7646990, 8847014, 09718599, 5843593, 26030119, 9606253 ####[address] [address]Lqzcwnyenpw/Leukocytes Auto (Bld) [Pure # fraction]1.9 E9/LNormal1.0-4.0 [facility] Medical CenterComment on above:Order Comment: Order Added by Discern Expert.Performed By: #### 0778202, 7631458, 1629232, 79888592, 0310593, 03105150, 0838037 ####[facility] [address] [place] [address]Vreernysv/100 WBC (Bld)6.2 %Normal4.0-14.0[facility] Geneva Medical CenterComment on above:Order Comment: Order Added by Discern Expert. Performed By: #### 6515224, 5224541, 6773864, 07266371, 0312372, 85006422, 9435885 ####[address] [address]Meiegavir/Leukocytes Auto (Bld) [Pure # fraction]0.5 E9/LNormal0.2-1.0 [facility] Medical CenterComment on above:Order Comment: Order Added by Discern Expert.Performed By: #### 6202548, 1493689, 1172567, 00391907, 2509760, 11815699, 6195651 ####[place] [address] [place], [place] [address]Haenbqbpxnx/100 WBC (Bld)68.3 %Qxkdgx93.0-75.0[facility]als [facility] Medical CenterComment on above:Order Comment: Order Added by Discern Expert. Performed By: #### 5909809, 1169171, 1661572, 41926895, 1299599, 10413504, 9305918 ####[address] [address]Vskoupbnino/Leukocytes Auto (Bld) [Pure # fraction]5.6 E9/LNormal2.0-7.5 [facility] Medical CenterComment on above:Order Comment: Order Added by Discern Expert.Performed By: #### 6730426, 4055914, 6364687, 81529147, 5636860, 79209326, 8766359 ####[facility] [address] [place], [place] [address]GOQdh 25-83-8020Rpbqbvj [Mass/Vol]9.0 mg/dLNormal8.9-11.1 [facility] Medical CenterComment on above:Performed By: #### 7410652, 1067731, 8755301, 82980548, 6443651, 07229522, 7154290 ####[facility] [address] [place], [place] [address]Zsgjmfvenk [Mass/Vol]0.7 mg/dLNormal 0.5-1.3FCleveland ClinicComment on above:Performed By: #### 7012613, 6369187, 9144526, 10795541, 0798250, 15054030, 6853208 ####[facility] [address] [place], [place] [address]Mynb nitrogen [Mass/Vol]10 mg/dLNormal5-21[facility] Medical CenterComment on above:Performed By: #### 0748294, 8880684, 8021593, 58927134, 7142437, 93140017, 2652756 ####[facility] [address] [place], [place] [address]Riln nitrogen/Creatinine [Mass ratio]14 No YngugInatrv61-85YiboqyUniversity Hospitals Geneva Medical CenterComment on above:Performed By: #### 7564231, 8459552, 8990300, 52110924, 2558905, 54632850, 7474673 ####[facility] [address] [place], [place] [address]Wiata gap [Moles/Vol]12 mmol/LNormal6-16[facility] Medical CenterComment on above:Performed By: #### 3365972, 2947037, 9976561, 63413197, 5487338, 06650774, 2525599 ####[facility] [address] [place], [place] [address]Bmtnjggm [Moles/Vol]104 mmol/HSqyjus513-313PvhxjsUniversity Hospitals Geneva Medical CenterComment on above:Performed By: #### 7796795, 1471825, 1746834, 91848978, 1200503, 50387521, 5652279 ####[place] [address] [place], [place] [address]NC9 [Moles/Vol]25 mmol/OBpfxxr18-41 [facility] Medical CenterComment on above:Performed By: #### 9803547, 1145717, 4561223, 05394711, 8087586, 77037576, 9716294 ####[address] [address]Mooonpb [Mass/Vol]93 mg/dLNormal 55-199[facility] Medical CenterComment on above:Result Comment: If this glucose result represents a fasting glucose, interpretation should refer tothe following reference range: 55-99 mg/dLPerformed By: #### 5193443, 7513490, 8335752, 81721554, 1355414, 08096515, 9648382 ####[address] [address]Jnqpujkfx [Moles/Vol]3.8 mmol/LNormal 3.5-5.3FCleveland ClinicComment on above:Performed By: #### 4013274, 4914807, 2031850, 35074823, 2973853, 12067443, 8541645 ####[address] [address]Mgxeiz [Moles/Vol]137 mmol/L Vxxxer028-877NarwjrUniversity Hospitals Geneva Medical CenterComment on above:Performed By: #### 4441305, 7513060, 7435379, 06037050, 7652025, 49268642, 9115990 ####[address] [address]BDM w/ Auto Diffon 37-55-6843Yjmxcwlkzdy distribution width (RBC) [Ratio]12.2 %Omddow63.9-14.2 [facility] Medical CenterComment on above:Performed By: #### 4299492, 4917090, 3698036, 20147682, 8427394, 75573139, 1408991 ####Ananth [address] [address]Sbkoeklssu (Bld) [Volume fraction] 39.3 %Yetezz65.0-46.0[facility] Medical CenterComment on above:Performed By: #### 4733485, 8144464, 4200716, 26378329, 7278522, 11655421, 8459526 ####Ananth [address] [address]Ribndfntcj (Bld) [Mass/Vol]13.3 g/fZMrypgi44.0-16.0[facility] Medical CenterComment on above: Performed By: #### 1160706, 8446439, 1859754, 18465640, 2185364, 04380690, 7329182 ####Ananth [address] [address]RUP (RBC) [Entitic mass]31.3 smUjlucy40.0-34.0[facility] Comment on above:Performed By: #### 8881341, 7924912, 1730840, 88111936, 6261992, 54054030, 1754938 ####Ananth [address] [address]AXIL (RBC) [Mass/Vol]34.0 g/uAUfmbmb36.4-36.0[facility] CenterComment on above:Performed By: #### 8661085, 9792234, 5468605, 45872015, 4936877, 52423036, 9965546 ####Ananth [address] [address]QKJ (RBC) [Entitic vol]92.1 fLNormal 80.0-100.0[facility] Medical CenterComment on above:Performed By: #### 7318511, 6424655, 2678883, 59940177, 9833788, 38903306, 8717870 ####Ananth [address] [address]Zniynylj mean volume (Bld) [Entitic vol]9.2 fLNormal6.4-10.8[facility] Medical CenterComment on above:Performed By: #### 9682762, 7455487, 1575149, 06601032, 1393975, 41679039, 4816547 ####Wadsworth [address] [address]Ajvbrnkie (Bld) [#/Vol]214.0 E9/YIxdpsm490.0-500.0[facility] CenterComment on above:Performed By: #### 9702882, 6484681, 6104770, 94328045, 6821906, 87333232, 6887366 ####[address] [address]NCT (Bld) [#/Vol]4.3 E12/LNormal4.3-5.9[facility] Medical CenterComment on above:Performed By: #### 2349150, 7182451, 6425506, 18465304, 0130725, 12840975, 8830421 ####[address] [address]SLE corrected for nucl RBC Auto (Bld) [#/Vol]8.2 E9/LNormal 4.0-11.0[facility] CenterComment on above:Performed By: #### 4194795, 6110582, 5754720, 83650102, 7969955, 35273835, 3834827 ####[address] [address]Rvmdstq for Treatmenton 92-12-5513Sdzvutw for Treatment [id number]#1.00CD:127NormalUniversity Hospitals Geneva Medical CenterHep Func Panelon 21-22-9744Viclxtb [Mass/Vol]4.0 g/dLNormal3.3-5.0[facility] CenterComment on above:Performed By: #### 8066868, 8146084, 9514826, 36651877, 2176634, 03801094, 3234312 #### [facility] [address] [place] [address]Qsevcmz/Globulin (S) [Mass conc ratio]1.6Jhfhzk4.1-2.2FCleveland ClinicComment on above:Performed By: #### 7142682, 1081406, 1143007, 51476573, 2335205, 22146417, 1727872 #### [facility] [address] [place] [address]VFN [Catalytic activity/Vol]44 Int._Unit/BTfauli24-07YjrpiwUniversity Hospitals Geneva Medical CenterComment on above:Performed By: #### 0848794, 4809787, 2050408, 09577502, 5515553, 52567032, 1802758 #### [facility] [address] [place] [address]LWJ No additional P-5'-P [Catalytic activity/Vol]20 Int._Unit/L Normal6-46[facility] Medical CenterComment on above:Performed By: #### 1775050, 2728248, 9423623, 44972944, 0246544, 02409991, 4818458 #### [facility] [address] [place] [address]MDN [Catalytic activity/Vol]16 Int._Unit/LNormal5-43[facility] CenterComment on above:Performed By: #### 6242295, 2550953, 1997579, 58215984, 0522057, 62443024, 9810726 #### [facility] [address] [place] [address]Mamskhatw [Mass/Vol]1.1 mg/dLNormal0.0-1.1FCleveland ClinicComment on above:Performed By: #### 5351512, 5519990, 6751728, 14682889, 4994803, 57854169, 6299332 #### [facility] [address] [place] [address]Kbkiugrra.direct [Mass/Vol]0.2 mg/dLNormal0.1-0.4FCleveland ClinicComment on above:Performed By: #### 7897646, 7711951, 1380467, 03901582, 0576933, 99278973, 8458137 #### [facility] [address] [place] [address]Wryxcjzws.indirect [Mass or moles/Vol]0.9 mg/dLNormal0.1-0.9 [facility] Medical CenterComment on above:Performed By: #### 1540909, 6463908, 1725707, 09509560, 5137776, 51724054, 0249465 #### [facility] [address] [place] [address]Uijkicwy (S) [Mass/Vol]2.6 g/dLNormal1.4-4.0[facility] Medical CenterComment on above:Performed By: #### 0268751, 3665782, 0978670, 26496473, 9958226, 57557007, 1265709 #### [facility] [address] [place] [address]Teklolp [Mass/Vol]6.6 g/dLNormal6.0-7.8[facility] Medical CenterComment on above:Performed By: #### 8049461, 5542619, 2302123, 29696787, 2306060, 56652452, 4030211 #### [facility] [address] [place] [address]Zzskbu Levelon 71-05-6990Mwvunt [Catalytic activity/Vol]32 U/L Dyeofk52-37AkbmgcUniversity Hospitals Geneva Medical CenterComment on above:Performed By: #### 6329706, 1250675, 4420561, 82404460, 4013413, 73690642, 6001245 #### [facility] [address] [place] [address]aEIKlo 39-48-9563FKH/1.73 sq M.predicted among blacks MDRD (S/P/Bld) [Vol rate/Area]mL/min/{1.73_m2}Normal>=59[facility] Comment on above:Order Comment: Order added by Discern Expert.Result Comment: eGFR is race adjusted. AA=.Performed By: #### 1672048, 9334349, 5900662, 93565514, 2388430, 78571510, 3543258 #### [facility] [address], [place] [address]AXX/1.73 sq M.predicted among non-blacks MDRD (S/P/Bld) [Vol rate/Area]mL/min/{1.73_m2}Normal>=59[facility] Medical CenterComment on above: Order Comment: Order added by Discern Expert.Result Comment: Chronic kidney disease could be indicated at eGFR's of less than 60 mL/min/1.73m2. Kidney failure is indicated at less than 15 mL/min/1.73m2.Performed By: #### 4473106, 5156566, 7524028, 24629709, 8738534, 10158411, 4620982 #### [facility] [address], [place] [address]Lccfjhrn Letteron 79-28-7930Bbgyoijm Letter June 03, 2020 To Whom It May Concern, Rajiv has been under my care and had a lap choly on 05/10/2020. She was seen post operatively on 05/23/2020 and was healing well. Rajiv is released to work on 06/06/2020 with no restrictions. Please call the office at [phone] with any questions/ concerns. Sincerely, Dr. Aiden Izquierdo faxed to [facility] to [phone] Health Barberton CampusAmbulatory Clinical Summaryon 87-21-4279Eccvmjhqso Clinical Summary {27-gr-85-y5-l1-5a-21-tq-v0-29-1m-75-b1-48-bf-46}CD:998974CkgeeoGiwvsgSumma Health Barberton CampusGeneral Surgery Office/Clinic Noteon 33-74-2788Cralkge Surgery Office/Clinic NoteHistory of Present Illness lap [...] Information Aiden IZQUIERDO MD Only if needed [address] [place] [address] AVE [address] [place] [address]- Additional Instructions: F/U PRN Problem List/Past Medical [...] Cigarettes, 04/19/2020 Family History Family history is negativeMercy Health Kings Mills HospitalComment on above: Result Comment: Electronically Signed By: Aiden IZQUIERDO MD\.br\Date and Time Signed: 05/23/20 10:17 EST\.br\Electronically Co-Signed By: Mildred Cook MA\.br\Date and Time Co-Signed: 05/23/20 09:55 ESTIntraOperative Documentson 92-11-6515AjsrlEdxtycnyu Documents [id number]#1.00CD:127Mer[facility] HospitalAmbulatory Clinical Summaryon 10-15-6421Bwuocpebyf Clinical Summary {57-9k-c5-0m-j4-6k-4d-02-u4-9b-iu-y2-76-df-f8-b9}CD:358985ApzmvlCgmxmxUniversity Hospitals Geneva Medical CenterGastroenterology Office/Clinic Noteon 59-76-7373Yzagiczbsschllbt Office/Clinic NoteChief Complaint f/u EGD HPI Staff This is a 25 year old female who presents today for a follow up to EGD. History of Present Illness 24 years old white female with no significant past medical history except for anxiety, referred to me from [facility], ER to be evaluated for right upper quadrant abdominal pain, she reports right upper quadrant abdominal pain, started 6 weeks ago, sporadic, moderate in nature except for the lasttime when it was severe for which she went to [facility], she had normal CBC, CMP [...] Ezequiel MARTINEZ MD Only if needed [facility] [address] [place] [address]- Additional Instructions: Patient Education Cholelithiasis Problem List/Past [...] [2] 07 Surgical Pathology Report; 04/29/2020 10:57 [facility] HospitalComment on above:Result Comment: Electronically Signed By: [...] required. HOME CARE INSTRUCTIONS ? Only take trkh-bca-oxdrars or prescription medicines for pain, discomfort, or [...] Document Reviewed: 08/09/2011 ExitCare? Patient Information ?2013 [employer].[facility] Mills HospitalCoding Summary.on 98-62-0322Gcylec Summary.CODING DATE: 05/13/2020 FINAL [facility] STATUS: Home (Routine DC) PAYOR: Rbea APC DESCRIPTION 5361 Level 1 Laparoscopy and Related Services ADMIT DX: REASON FOR VISIT DX: K81.1 Chronic cholecystitis FINAL DX: PRINCIPAL: K81.1 Chronic cholecystitis SECONDARY: K82.8 Other specified diseases of gallbladder F41.9 Anxiety disorder, unspecified PYMT PROC APC STAT DESCRIPTION DOCTOR NAME DATE 18382 5361 J1 Laparoscopy, surgical; Aiden IZQUIERDO MD 05/10/2020 cholecystectomy with cholangiography 55152 Anesthesia for Bakari Husain Jr, DO 05/10/2020 intraperitoneal procedures in upper abdomen including laparoscopy; not otherwise specified NOTE: The code number assigned matches the documented diagnosis and / or procedure in the patient's chart. However, the narrative phrase printed from the coding software may appear abbreviated, or result in slightly different terminology. Revised Coded By: Eugenia Mae Revised Date Saved: 05/13/2020 02:09 pmNPomerene HospitalMain OR Intraoperative Recordon 34-92-2336Icyo OR Intraoperative RecordIntraOp Document Type FT Summary Primary Physician: Aiden IZQUIERDO MD Finalized Date/Time: 05/13/20 11:07:53 Pt. Name: RAJIV TOVAR/Sex: 1995 Female Med Rec #: [id number] Physician: Aiden IZQUIERDO MD Financial #: [id number] Pt. Type: A Room/Bed: AS01/ Admit/Disch: 05/10/20 07:43:57 - 05/10/20 15:00:00 Institution: Case Times FT Entry 1 Patient Times In Room 05/10/20 09:29:00 Out Room 05/10/20 10:27:00 Procedure Times Start 05/10/20 09:44:00 Stop 05/10/20 10:20:00 Anesthesia Times Start 05/10/20 09:29:00 Stop 05/10/20 10:27:00 Last Modified By: London TURNER, My Cummings 05/10/20 10:27:42 General Comments: 1011- electronic sales and service technician called dr. guo read xray dilated tapers distally can't exclude small stonepossible spasm , Dr. Izquierdo stated understanding. - joan turner 05/13/2020 Chart opened to review and send charges. Angela Leavitt MANAGER LICENSING. Case Attendance FT Entry 1 Entry 2 Entry 3 Case Attendee Ankit AGUILAR, Linnea IZQUIERDO MD, Aiden ARAUJO MD, Ramandeep Cummings Role Performed Anesthesiologist Surgeon - Primary Surgeon - Assist 1 Communication Engineer Time In 05/10/20 09:29:00 05/10/20 09:40:00 05/10/20 [...] TURNER, My Villalba RN, Bernadette Ortiz Cert. Flarer, Arlette Davila Role Performed Vp Ad Products And Planning - Primary Scrub - Primary Scrub - Primary Time In 05/10/20 09:29:00 05/10/20 09:29:00 05/10/20 09:29:00 Time Out 05/10/20 10:27:00 05/10/20 10:27:00 05/10/20 10:27:00 Procedure CHOLECYSTECTOMY CHOLECYSTECTOMY CHOLECYSTECTOMY LAPAROSCOPIC W/ LAPAROSCOPIC W/ LAPAROSCOPIC W/ CHOLANGI(.) CHOLANGI(.) CHOLANGI(.) Comments ORIENTATION ORIENTATION Last Modified By: London TURNER, My Callahan RN, My Rubio RN 05/10/20 10:27:43 05/10/20 10:27:43 05/10/20 10:27:43 Entry 7 Entry 8 Case Attendee Calros MCLEAN, Kim Kaufman RT(R), Magalie Davila Role Performed Scrub - Primary Seasoner Hand Time In 05/10/20 09:29:00 05/10/20 10:00:00 [...] Bray RN, Deejay Chowdhury RN, Angel Oglesby Flarer, Carlos Rock CST, Kim Ulloa Time Out [...] Last Modified By: Artemio (more content not included)...[facility] HospitalPostoperative Documentson 77-68-9656Wxrdldbxvsymi Documents [id number]#1.00CD:127NoSumma Health Barberton CampusProgress Note-Physicianon 18-64-4736Zytrxice Note-PhysicianPatient: RAJIV TOVAR Age: 25 years Sex: [...] TID, # 10 tab(s), Refills(s) 0, Pharmacy: [facility]/pharmacy #[id number], 168, cm, 04/19/20 6:20:00 EDT, Height/Length Dosing, 58.5, kg, 04/19/20 6:20:00 EDT, Weight Dosing omeprazole 40 mg Cap-DR: 40 mg = 1 cap(s), Oral, Daily, # 30 cap(s), Refills(s) 2, Pharmacy: [facility]/pharmacy #[id number], 168, cm, 04/20/20 10:06:00 EDT, Height/Length Dosing, 59.5, kg, 04/20/20 10:06:00 EDT,Weight Dosing Documented Medications Documented desvenlafaxine 100 mg Tab-: 100 mg = 1 tab(s), Oral, Daily, Refills(s) 0, Depression Problem list: All Problems Biliary dyskinesia / SNOMED CT 878641653 / Confirmed Depression / SNOMED CT 16600383 / Confirmed Histories Past Medical History: No active or resolved past medical history items have been selected or recorded. Family History: Entire family history is negative. Procedure history: EGD (esophagogastroduodenoscopy) gastric outlet reduction (1675661040) on 04/29/2020 at 25 Years. section (59927359) on 07/23/2019 at 24 Years. Sinus (2456759995). Nasal cautery (505970877). Ankle (8471237). Comments: 05/10/2020 8:24 EST - [employer], Bernarda Bilateral ankle stabilazation for flat feet Diagnostic laparoscopy (470580548). Comments: 05/10/2020 8:26 EST - Kl[employer], Bernarda ovarian cyst drained Social History Social [...] 05/10/2020 10:15 EST Heart (more content not included)...[facility] HospitalComment on above:Result Comment: Electronically Signed By: [...] All Problems Biliary dyskinesia / SNOMED CT 388337088 / Confirmed Depression / SNOMED CT 89235832 / Confirmed Physical Examination Vital Signs 05/10/2020 [...] 05/10/2020 8:11 EST Apic (more content not included)...[facility] HospitalComment on above:Result Comment: Electronically Signed By: Bakari Husain Jr, DO\.br\Date and Time Signed: 05/13/20 13:20 ESTCoding Summary.on 17-63-8858Eszein Summary.CODING DATE: 05/12/2020 FINAL [facility] STATUS: Home (Routine DC) PAYOR: [place] ADMIT DX: REASON FOR VISIT DX: Z01.812 [...] Linda Jaquez CphT Date Saved: 05/12/2020 09:53 pmNormalUniversity Hospitals Geneva Medical CenterConsent for Anesthesiaon 21-90-2770Hudrbil for Anesthesia [id number]#1.00CD:127NormalUniversity Hospitals Geneva Medical CenterDischarge Instructionson 16-20-3522Pkevqdjpe Instructions [id number]#1.00CD:127NoGem [facility] HospitalIntraOperative Documentson 18-13-0572ThntaWzpmyhumw Documents [id number]#1.00CD:127NoGem [facility] HospitalOperative Reporton 20-34-2907Rsvasztny ReportDate of Surgery: 05/10/2020 SURGEON: Aiden Izquierdo MD, FACS LEATHER SOFTENER: Ramandeep Araujo MD, FACS PREOPERATIVE DIAGNOSIS: Chronic [...] Room in stable condition. Aiden [facility]quierdo MD[facility] Dictated: 05/10/2020 #[id number] Typed: 05/10/2020 #[id number] cc: Gracie Cervantes MD, [facility] HospitalComment on above: Result Comment: Electronically Signed By: TIMBO POLK, Aiden Busby.ilana\Date and Time Signed: 05/11/20 08:04 ESTPreoperative Documentson 59-45-2062Itubymxcvsip [id number]#1.00CD:127[facility] HospitalPreoperative Documents [id number]#1.00CD:127[facility] HospitalConsent for Treatmenton 80-40-2653Ajjsbzh for Treatment [id number]#1.00CD:127NormalUniversity Hospitals Geneva Medical CenterInpatient Patient Summaryon 40-19-8784Uaommjsss Patient Summary [address] [address] [facility] Clinical Discharge Instructions PERSON INFORMATION Name: RAJIV TOVAR PHYSICIANS Admitting Physician: Aiden IZQUIERDO MD Attending Physician: Aiden IZQUIERDO MD PCP: Gus POLK, Alon Discharge Diagnosis: Chronic cholecystitis with calculus Comment: PATIENT EDUCATION INFORMATION Instructions: Post Op Patient Instructions - FT (CUSTOM); How to Use an Incentive Spirometer; Timbo - Post Op Instructions (CUSTOM) Medication Leaflets: Follow up: With: Address: When: Aiden IZQUIERDO [address] [place] [address], [address] [place] [id number] [facility] () Within 7 to 10 days Comments: Call for any problems. Call for followup appointment Type Location Start [facility] Follow Up [facility] 05/16/2020 1:00 PM 05/16/2020 1:15 PM Confirmed MEDICATION LIST Medications to Continue with No Changes Other Medications desvenlafaxine (desvenlafaxine 100 mg Tab-) 1 Tablets By Mouth every day. omeprazole (omeprazole 40 mg Cap-DR) 1 Capsules By Mouth every day. Refills: 2. ondansetron (Zofran ODT 4 mg Tab) 1 Tablets By Mouth 3 times a day. Refills: 0. Comment:[facility] HospitalIntraOperative Documentson 05-10-2020 IntraOperative [id number]#1.00CD:127 [facility] HospitalMain OR PACU I Recordon 45-43-9209Opvn OR PACU I RecordPACU Phase I Document Type FT Summary Primary Physician: Aiden IZQUIERDO MD Finalized Date/Time: 05/10/20 11:13:04 Pt. Name: RAJIV TOVAR /Sex: 1995 Female Med Rec #: [id number] Physician: Aiden IZQUIERDO MD Financial #: [id number] Pt. Type: A Room/Bed: Admit/Disch: 05/10/20 07:43:57 [...] Signatures Signed By: Belkys Yarbrough RN 05/10/20 11:13NormchapoUniversity Hospitals Geneva Medical CenterMain OR PACU II Recordon 99-77-8144Kxxg OR PACU II RecordPACU Phase II Document Type FT Summary Primary Physician: Aiden IZQUIERDO MD Finalized Date/Time: 05/10/20 15:45:07 Pt. Name: AKHIL RAJIV Quezdaa/Sex: 1995 Female Med Rec #: [id number] Physician: Aiden IZQUIERDO MD Financial #: [id number] Pt. Type: A Room/Bed: 06/24 Admit/Disch: 05/10/20 [...] Signatures Signed By: Marcelina Cadet RN 05/10/20 15:45NoSumma Health Barberton CampusMain OR Preoperative Recordon 04-78-0581Zcyn OR Preoperative RecordPreOp Document Type FT Summary Primary Physician: Aiden IZQUIERDO MD Finalized Date/Time: 05/10/20 10:00:50 Pt. Name: RAJIV TOVAR/Sex: 1995 Female Med Rec #: [id number] Physician: Aiden IZQUIERDO MD Financial #: [id number] Pt. Type: A Room/Bed: [place] [address] Admit/Disch: 05/10/20 07:43:57 - Institution: Case Times [...] Signatures Signed By: My Callahan RN 05/10/20 10:00NoSumma Health Barberton CampusMonitor Recordon 59-92-5968Favraqb [id number]#1.00CD:127 [facility] HospitalOutpatient Surgery Discharge Instructionon 72-83-6192Ctgdiwatxg Surgery Discharge Instruction [address] [address] Patient Discharge Instructions PERSON INFORMATION [...] Follow up: With: Address: When: Aiden IZQUIERDO [address] [place] [address] Business (1) Within 7 to 10 days Comments: Call for any problems. Call for followup appointment Type Location Start [facility] Follow Up [facility] 05/16/2020 1:00 PM 05/16/2020 1:15 PM Confirmed Pharmacy Information: Thank you for choosing [facility] HERE ARE THE MEDICATION CHANGES THAT [...] possible. ? If the spirometer includes a employment coach indicator, use this to guide you [...] to reduce pain from co (more content notincluded)...[facility] HospitalPatient Education - Texton 64-72-9755Dxrlxke Education - Text Pulmonary Medicine How To [...] possible. ? If the spirometer includes a employment coach indicator, use this to guide you [...] 10/21/2007 Document Revised: 07/03/2018 Document Reviewed: 04/23/2018 [employer] Patient Education ? 2019 howsimple. [place], [place] Aiden Izquierdo MD, FACS POST OPERATIVE [...] to air, or r (more content not included)...NormalUniversity Hospitals Geneva Medical CenterProgress Note-Physicianon 85-31-8032Nfgyvies Note-PhysicianPatient: ARJIV TOVAR Age: 25 years Sex: Female : 1995 Associated Diagnoses: None Author: Aiden IZQUIERDO MD Postoperative Information Date/ Time: 05/10/2020 10:26:00 Preoperative Diagnosis: Chronic cholecystitis with calculus (TMJ66-IJ K80.10, Working, Medical). Postoperative Diagnosis: Same pending pathology. Procedure: Laparoscopic Cholecystectomy with intraoperative chloangiogram. Performed by: Aiden Izquierdo MD. Communication Engineer: Ramandeep Araujo MD Specimens Removed: Gallbladder. Estimated Blood Loss: 5 ml. Complications: None.[facility] HospitalComment on above:Result Comment: Electronically Signed By: Aiden IZQUIERDO MD\.br\Date and Time Signed: 05/10/20 10:27 ESTProgress Note-PhysicianPatient: RAJIV TOVAR Age: 25 years Sex: Female : 1995 Associated Diagnoses: None Author: Aiden IZQUIERDO MD Basic Information No change in History and PhysicalNormProMedica Fostoria Community HospitalComment on above:Result Comment: Electronically Signed By: Aiden IZQUIERDO MD\.br\Date and Time Signed: 05/10/20 09:11 ESTXR Cholangiogram in ORon 33-84-6248ZE Cholangiogram in ORExam Date/Time: 05/10/2020 10:05 EST Reason for Exam: Cholelithiasis Report IMPRESSION: BILIARY DUCTAL DILATATION, DOWN TO A SEGMENT OF THE DISTAL MOST COMMON BILE DUCT, WHICH IS NARROWED. THE ETIOLOGY OF THIS IS NOT SPECIFICALLY DETERMINED. SPASM COULD ACCOUNT FOR THIS NARROWING, BUT TINY DISTAL CHOLEDOCHAL CALCULI (WITH SPASM) ARE ALSO POSSIBLE. CLINICAL HISTORY: Cholelithiasis. COMMENT: Limited punqq-ne-nuup C-arm images were obtained in the OR, [...] Comments Radiation Dose: Ka,r in mGy = 3.4NoSumma Health Barberton CampusCoding Summary.on 33-84-1010Hbcmho Summary.CODING DATE: 05/07/2020 FINAL [facility] STATUS: Home (Routine DC) PAYOR: Reba [...] Linda Jaquez CphT Date Saved: 05/07/2020 10:24 [facility] CenterCoding Summary. on 44-50-7967Vdtwtx Summary.CODING DATE: 05/05/2020 FINAL [facility] STATUS: Home (Routine DC) PAYOR: Reba APC DESCRIPTION 5301 Level 1 Upper GI Procedures ADMIT DX: REASON FOR VISIT DX: R10.13 Epigastric pain FINAL DX: PRINCIPAL: R10.13 Epigastric pain SECONDARY: R10.11 Right upper quadrant pain F41.9 Anxiety disorder, unspecified PYMT PROC APC STAT DESCRIPTION DOCTOR NAME DATE 62761 5301 Ezequiel WEST MD 04/29/2020 phagogastroduodenoscopy, flexible, transoral; with biopsy, single or multiple 40400 Anesthesia for upper Husain Bakari Berry DO 04/29/2020 gastrointestinal endoscopic procedures, endoscope introduced proximal to duodenum; not otherwise specified NOTE: The code number assigned matches the documented diagnosis and / or procedure in the patient's chart. However, the narrative phrase printed from the coding software may appear abbreviated, or result in slightly different terminology. Revised Coded By: Eugeina Mae Revised Date Saved: 05/05/2020 11:48 amNormalUniversity Hospitals Geneva Medical CenterConsent for Procedure/Surgeryon 17-49-4559Asrwkmt for Procedure/Surgery [id number]#1.00CD:127NormalUniversity Hospitals Geneva Medical CenterFormson [id number]#1.00CD:127 NormalUniversity Hospitals Geneva Medical CenterPriority Order-Mitchell 53-76-2662Utkqcxzo Order-STATCommentInvalid Interpretation [facility] CenterComment on above:Result Comment: Received Performed at: [employer] RTP [address] [place], [place] [id number] [facility] Johanny ClaudetteMeetaformed By: #### [id number], SARS-CoV-2, MARY #### [facility] [address], [place] [address]YELY-ExA-0, NAAon 57-09-1705COUH-CoV-2 (COVID-19) RNA MARY+probe Ql (Resp)Not detectedInvalid Interpretation CodeNot DetectedUniversity Hospitals Geneva Medical CenterComment on above:Result Comment: This nucleic acid amplification test was developed and its performance characteristics determined by [employer]. Nucleic acid amplification tests include PCR and [...] this assay. Performed at: [facility] [address] [facility] [place] [id number] MD Jacobson AnaghPerformed By: #### [id number], SARS-CoV-2, MARY #### [facility] [address], [place] [address]L hCG Qualon 06-63-5796Ouet hCG QlNegativeNormalUniversity Hospitals Geneva Medical CenterComment on above:Performed By: #### [id number] #### [facility] [address], [place] [address]KFL w/Indiceson 54-48-2970Vpcgcxhiurp distribution width (RBC) [Ratio]13.1 %Kjjcwa34.9-14.2FCleveland ClinicComment on above: Performed By: #### [id number], [id number] ####[facility] [address] [place], [place] [address]Qxfxdzgxdg (Bld) [Volume fraction] 40.5 %Tophta90.0-46.0University Hospitals Geneva Medical CenterComment on above:Performed By: #### [id number], 5008952 ####[address] [place], [place] [address]Nwwwgslxdw (Bld) [Mass/Vol]14.0 g/yFDdndvk63.0-16.0University Hospitals Geneva Medical CenterComment on above:Performed By: #### 3096246, 0925214 ####[facility] [address] [place], [place] [address]OID (RBC) [Entitic mass]31.0 qlTxgtnp53.0-34.0University Hospitals Geneva Medical CenterComment on above:Performed By: #### 0260116, 7123673 ####[facility] [address] [place], [place] [address]UZRD (RBC) [Mass/Vol]34.6 g/dLNormal 31.4-36.0University Hospitals Geneva Medical CenterComment on above:Performed By: #### 3689961, 6864424 ####[address] [address]NNG (RBC) [Entitic vol]89.7 aEWlvcdm70.0-100.0[facility] Comment on above:Performed By: #### 9798194, 6197170 ####[address] [address]Rljbnwyu mean volume (Bld) [Entitic vol]9.1 fLNormal6.4-10.8University Hospitals Geneva Medical CenterComment on above: Performed By: #### 6287243, 3402010 ####[address] [address]Uhaymhhby (Bld) [#/Vol]245.0 E9/L Mzvrcd622.0-500.0University Hospitals Geneva Medical CenterComment on above:Performed By: #### 3936918, 5601249 ####[address] [address]CKQ (Bld) [#/Vol]4.5 E12/LNormal4.3-5.9University Hospitals Geneva Medical CenterComment on above:Performed By: #### 9343972, 7389577 ####[address] [address]IFT corrected for nucl RBC Auto (Bld) [#/Vol]5.6 E9/LNormal4.0-11.0University Hospitals Geneva Medical CenterComment on above:Performed By: #### 8183557, 0107043 ####[address] [address]wt[place] for Treatmenton 05-04-2020 Consent for [id number]#1.00CD:127Normal University Hospitals Geneva Medical CenterHep Func Panelon 09-68-4757Sifxvzv [Mass/Vol]4.2 g/dL Normal3.3-5.0University Hospitals Geneva Medical CenterComment on above:Order Comment: if not already done.Performed By: #### 6148304, 8703982 ####[address] [address]Azxewta/Globulin (S) [Mass conc ratio]1.5Fynhvv3.1-2.2FCleveland ClinicComment on above:Order Comment: if not already done.Performed By: #### 1482202, 5063138 ####[address] [address]BEN [Catalytic activity/Vol] 112 Int._Unit/OEbvv90-40ArwtzjUniversity Hospitals Geneva Medical CenterComment on above:Order Comment: if not already done.Performed By: #### 4589682, 5964773 ####[address] [address]EUZ No additional P-5'-P [Catalytic activity/Vol]129 Int._Unit/LHigh6-46University Hospitals Geneva Medical CenterComment on above:Order Comment: if not already done.Performed By: #### 8495799, 6524408 ####[address] [address]JOQ [Catalytic activity/Vol]28 Int._Unit/LNormal5-43University Hospitals Geneva Medical CenterComment on above:Order Comment: if not already done. Performed By: #### 5129725, 4100443 ####[address] [address]Kiuoppbgz [Mass/Vol]0.7 mg/dLNormal 0.0-1.1FCleveland ClinicComment on above:Order Comment: if not already done.Performed By: #### 2404774, 4487874 ####[address] [address]Cnfikbdwe.direct [Mass/Vol]0.1 mg/dL Normal0.1-0.4FCleveland ClinicComment on above:Order Comment: if not already done.Performed By: #### 1712195, 1960907 ####[facility] [address] [place], [place] [address]Ejgqaqunl.indirect [Mass or moles/Vol]0.6 mg/dLNormal0.1-0.9University Hospitals Geneva Medical CenterComment on above: Order Comment: if not already done.Performed By: #### 2438922, 4157962 ####[address] [place] [address] Globulin (S) [Mass/Vol]3.1 g/dLNormal1.4-4.0University Hospitals Geneva Medical CenterComment on above:Order Comment: if not already done.Performed By: #### 9739740, 8060255 ####[address] [place] [address] Protein [Mass/Vol]7.3 g/dLNormal6.0-7.8University Hospitals Geneva Medical CenterComment on above:Order Comment: if not already done.Performed By: #### 7846135, 6606601 ####[facility] [address] [address] Ambulatory Clinical Summaryon 99-06-5159Oiymblrzkt Clinical Summary {6l-g7-4q-6q-d9-0h-5r-8a-52-c0-5x-96-4d-97-4c-b4}CD:696784DlgxrhZibkgzMercy Health Kings Mills HospitalConsent for Procedure/Surgeryon 21-30-4419Srirwob for Procedure/[id number]#1.00CD:127[facility] for Procedure/Surgery [id number]#1.00CD:127[facility] HospitalFormson [id number]#1.00CD:127 [facility] HospitalForm [id number]#1.00CD:127[facility] HospitalPhysician Orderon 10-29-2902Qqkwenaqg Order [id number]#1.00CD:127[facility] HospitalPhysician Referralon 58-61-7431Nfncbthdh Referral [id number]#1.00CD:127[facility] HospitalPostoperative Documentson 08-48-1242Auzkhxkuubrtq Documents [id number]#1.00CD:127[facility] HospitalProgress Note-Physicianon 17-82-6422Lmiqhjve Note-PhysicianPatient: RAJIV TOVAR Age: 25 years Sex: [...] TID, # 10 tab(s), Refills(s) 0, Pharmacy: [facility]/pharmacy #[id number], 168, cm, 04/19/20 6:20:00 EDT, Height/Length Dosing, 58.5, kg, 04/19/20 6:20:00 EDT, Weight Dosing omeprazole 40 mg Cap-DR: 40 mg = 1 cap(s), Oral, Daily, # 30 cap(s), Refills(s) 2, Pharmacy: [facility]/pharmacy #[id number], 168, cm, 04/20/20 10:06:00 EDT, Height/Length [...] Cardiovascular: Regular rhythm. Neurologic: Alert, Oriented. Plan [employer] Anesthesiologists (ASA) physical status classification: Class II. Anesthetic Preoperative Plan Anesthesia: General. . Anesthetic plan, risks, benefits, and alternatives discussed with the patient and/or family. Communication: face to face with (patient 5 minutes, Patient educated on smoking cesstation).[facility] HospitalComment on above:Result Comment: Electronically Signed By: [...] nausea and vomiting. Plan Transfer/ Discharge: Condition stable.[facility] HospitalComment on above:Result Comment: Electronically Signed By: Bakari Husain Jr, DO.ilana\Date and Time Signed: 05/03/20 09:37 ESTConsenton 97-29-8529Poqheyw [id number]#1.00CD:127[facility] HospitalDischarge Instructionson 39-18-4145Hxgybmvyq Instructions [id number]#1.00CD:127[facility] HospitalGeneral Surgery Office/Clinic Noteon 44-70-8357Fjcovxg Surgery Office/Clinic NoteChief Complaint biliary dyskenesia History [...] When Contact Information TIMBO POLK, Aiden MARIO [facility] [address] [place] [address]- Additional Instructions: F/U POST OP. Problem [...] Cigarettes, 04/19/2020 Family History Family history is negativeMercy Health Kings Mills HospitalComment on above: Result Comment: Electronically Signed By: Aiden IZQUIERDO MD\.br\Date and Time Signed: 05/02/20 15:39 EST\.br\Electronically Co-Signed By: Mildred Cook MA\.br\Date and Time Co-Signed: 05/02/20 15:25 ESTIntraOperative Documentson 20-72-9707CgjsrDmgdbcmpk Documents [id number]#1.00CD:127NoSumma Health Barberton CampusIntraOperative Documents [id number]#1.00CD:127[facility] HospitalMain OR Intraoperative Recordon 31-11-1430Kxxr OR Intraoperative Record IntraOp Document Type FT Summary Primary Physician: Ezequiel MARTINEZ MD Finalized Date/Time: 05/02/20 08:23:39 Pt. Name: RAJIV TOVAR/Sex: 1995 Female Med Rec #: [id number] Physician: Ezequiel MARTINEZ MD Financial #: [id number] Pt. Type: O Room/Bed: / Admit/Disch: 04/29/20 10:12:58 - 04/29/20 23:59:59 Institution: Case Times FT Entry 1 Patient Times In Room 04/29/20 10:52:00 Out Room 04/29/20 11:04:00 Procedure Times Start 04/29/20 10:56:00 Stop 04/29/20 10:59:00 Anesthesia Times Start 04/29/20 10:52:00 Stop 04/29/20 11:04:00 Last Modified By: Russell Maloney RN 04/29/20 11:04:12 General Comments: 05/02/2020 Chart opened to review and send charges. 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 Case Attendance FT Entry 1 Entry 2 Entry 3 Case Attendee Rodrigue Berry DO, Bakari MARTINEZ MD, Ezequiel Maloney RN, Russell Canada Role Performed Anesthesiologist of Surgeon - Primary Vp Ad Products And Planning - Primary Record Time In 04/29/20 10:52:00 04/29/20 10:52:00 04/29/20 10:52:00 Time Out 04/29/20 11:04:00 04/29/20 11:04:00 04/29/20 11:04:00 Procedure EGD(.) EGD(.) EGD(.) Comments Last Modified By: Haider RNRussell RN, Russell Maloney RN, Russell Canada 04/29/20 11:04:13 04/29/20 11:04:13 04/29/20 11:04:13 Entry 4 Entry 5 Entry 6 Case Attendee Mere TURNER, Geno Garcia, Charlotte Bal CST, Aria Role Performed Vp Ad Products And Planning - Primary Scrub - Primary Staff - [...] Berry DO, Bakari Cummings, Given Participants Ezequiel MATRINEZ MD, Souter RN, Mere Costello RN, Jose [...] Side Right Arm P (more content not included)...[facility] 22-35-6196Mmpkywwj Letter [facility] Ezequiel Martinez M.D. [address] [place] [address] Re: RAJIV TOVAR Date of : 1995 [...] heroperative report following her procedure. Sincerely Jose RobertoSumma Health Barberton CampusCoding Summary.on 13-03-5127Uqvnco Summary. CODING DATE: 04/29/2020 [facility] STATUS: Home (Routine DC) PAYOR: [place] ADMIT DX: REASON FOR VISIT DX: Z01.812 [...] Linda Jaquez CphT Date Saved: 04/29/2020 11:14 pmNPomerene HospitalConsent for Treatmenton 19-77-7104Uvabjzs for Treatment [id number]#1.00CD:127NormalUniversity Hospitals Geneva Medical CenterEndoscopic Procedure Report - Otheron 64-97-1877Lbcxjdjodk Procedure Report - OtherPatient: RAJIV TOVAR Age: [...] weeks Consults surgery for right upper quadrant pain/cholelithiasisMercy Health Kings Mills HospitalComment on above:Result Comment: Electronically Signed By: MARU POLK, Ezequiel\.br\Date and Time Signed: 04/29/20 11:03 ESTOther Comment: Missing Attachment - attachment storage system not supported [id number] Can be viewed in source systemMissing Attachment - attachment storage system not supported [id number] Can be viewed insource systemMissing Attachment - attachment storage system not supported [id number] Can be viewed in source systemMissing Attachment - attachment storage system not supported [id number] Can be viewed in source systemMissing Attachment - attachment storage system not supported [id number] Can be viewed in source systemInpatient Patient Summaryon 86-71-3326Ozykvarrf Patient Summary [id number] [facility] Clinical Discharge Instructions PERSON INFORMATION Name: RAJIV TOVAR PHYSICIANS Admitting Physician: Ezequiel MARTINEZ MD Attending Physician: Ezequiel MARTINEZ MD PCP: Alon Weber MD Discharge Diagnosis: Abdominal pain Comment: PATIENT EDUCATION INFORMATION Instructions: Medication Leaflets: Follow up: With: Address: When: Aiden IZQUIERDO [address], [address] [place] [address] Business (1) With: Address: When: Ezequiel [facility] [address] [facility] [facility], [place] [address] Within [address] [facility] Follow Up [facility] 05/16/2020 1:00 PM 05/16/2020 1:15 PM [...] 3 times a day. Refills: 0. Comment:[facility] HospitalMain OR PACU I Recordon 70-11-6929Nzzl OR PACU I RecordPACU Phase I Document Type FT Summary Primary Physician: Ezequiel MARTINEZ MD Finalized Date/Time: 04/29/20 12:13:51 Pt. Name: RAJIV TOVAR/Sex: 1995 Female Med Rec #: [id number] Physician: Ezequiel MARTINEZ MD Financial #: [id number] Pt. Type: O Room/Bed: / Admit/Disch: 04/29/20 [...] Signatures Signed By: Belkys Yarbrough RN 04/29/20 12:13NoSumma Health Barberton CampusMain OR Preoperative Recordon 84-79-8365Gone OR Preoperative RecordHolding Area Document Type FT Summary Primary Physician: Ezequiel MARTINEZ MD Finalized Date/Time: 04/29/20 10:21:44 Pt. Name: RAJIV TOVAR/Sex: 1995 Female Med Rec #: [id number] Physician: Ezequiel MARTINEZ MD Financial #: [id number] Pt. Type: O Room/Bed: / Admit/Disch: 04/29/20 [...] Signatures Signed By: Marielle Pineda RN 04/29/20 10:21NoSumma Health Barberton CampusMonitor Record on 17-19-0257Oczkmjt [id number]#1.00CD:127 [facility] HospitalOutpatient Surgery Discharge Instructionon 99-97-9712Zvnpnfhtce Surgery Discharge Instruction [address] [address] Patient Discharge Instructions PERSON INFORMATION Name: RAJIV [...] [address], [address] [place] [address] Business (1) With: Address: When: [facility] [address], [place] [address] Within 2 weeks Type Location Start Finish [facility] Follow Up [facility] 05/16/2020 1:00 PM 05/16/2020 1:15 PM Confirmed Pharmacy Information: Thank you for choosing [facility] HERE ARE THE MEDICATION CHANGES THAT [...] a day. Refills: 0. PATIENT EDUCATION INFORMATION Instructions:[facility] HospitalPatient Education - Texton 72-69-5293Gfjytga Education - TextNormProMedica Fostoria Community HospitalPriority Order-Mitchell 72-36-7067Lnebdlyd Order-STATCommentInvalid Interpretation Code [facility] Medical CenterComment on above:Result Comment: Received Performed at: [facility] [address] [place], [place] [id number] MD Jacobson AnaghPerformed By: #### [id number], SARS-CoV-2, MARY #### [facility] [address], [place] [address]ZAPH-TdB-6, NAAon 00-85-9822EWZI-CoV-2 (COVID-19) RNA MARY+probe Ql (Resp)Not detectedInvalid Interpretation CodeNot DetectedUniversity Hospitals Geneva Medical CenterComment on above:Result Comment: This nucleic acid amplification test was developed and its performance characteristics determined by [employer]. Nucleic acid amplification tests include PCR and [...] this assay. Performed at: [facility] [address] [place] [id number] MD Jacobson AnaghPerformed By: #### [id number], SARS-CoV-2, MARY #### [facility] [address], [place] [address]Fjmcdmmlhm Clinical Summaryon 83-65-7226Imwzmiizyk Clinical Summary{7d-52-7t-sh-92-8y-1e-5q-86-0k-i5-81-37-59-21-d1}CD:088540BznkcrYgkdllSumma Health Barberton CampusCoding Summary.on 70-89-1909Amvrsn Summary.CODING DATE: 04/20/2020 FINAL [facility] STATUS: Home (Routine DC) PAYOR: Reba [...] Lissa Bond Revised Date Saved: 04/20/2020 07:55 amNPomerene HospitalConsent for Procedure/Surgeryon 32-77-8692Dryiaeo for Procedure/Surgery [id number]#1.00CD:127NoSumma Health Barberton CampusGastroenterology Office/Clinic Noteon 05-60-0897Xtnvuutbujeulaxf Office/Clinic NoteChief Complaint f/u to ER RUQ HPI Staff This is a 24 year old female who presents today for a follow up for an ED visit for RUQ pain. History of Present Illness 24 years old white female with no significant past medical history except for anxiety, referred to me from [facility] ER to be evaluated for right upper quadrant abdominal pain, she reports right upper quadrant abdominal pain, started 6 weeks ago, sporadic, moderate in nature except for the lasttime when it was severe for which she went to [facility] ER, she had normal CBC, [...] Daily, # 30 cap(s), Refills(s) 2, Pharmacy: [facility]/pharmacy #[id number],168, cm, 04/20/20 10:06:00 EDT, Height/Length Dosing, 59.5, kg, 04/20/20 10:06:00 EDT, Weight Dosing EGD Endoscopy (Hospital Procedure) 2. Anxiety (F41.9: Anxiety disorder, unspecified) 3. Nausea (R11.0: Nausea) Ordered: omeprazole, 40 mg = 1 cap(s), Oral, Daily, # 30 cap(s), Refills(s) 2, Pharmacy: [facility]/pharmacy #[id number],168, cm, 04/20/20 10:06:00 EDT, Height/Length Dosing, 59.5, kg, 04/20/20 10:06:00 EDT, Weight Dosing EGD Endoscopy (Hospital Procedure) Follow-up With When Contact Information Ezequiel MARTINEZ MD Within 2 weeks [facility] [address] [place] [address]- Additional Instructions: Patient Education Abdominal [...] Cigarettes, 04/19/2020 Family History Family history is negativeMercy Health Kings Mills HospitalComment on above: Result Comment: Electronically Signed By: Ezequiel MARTINEZ MD\.br\Date and Time Signed: 04/20/20 10:56 EDTPatient Educationon 27-84-2356Wywhqzc Education Abdominal Pain Abdominal pain can be [...] directed by your caregiver. ? Only take eacx-pax-yxopsrh or prescription medicines for pain, discomfort, or [...] Document Reviewed: 01/26/2009 ExitCare? Patient Information ?2014 [employer]. Family Medicine Abdominal Pain Abdominal pain can [...] directed by your caregiver. ? Only take ausm-ppi-tlylqex or prescription medicines for pain, discomfort, or [...] Document Reviewed: 01/26/2009 ExitCare? Patient Information ?2013 [employer].NormalUniversity Hospitals Geneva Medical CenterPhysician Orderon 26-80-6038Dfewojzab Order [id number]#1.00CD:127NormalUniversity Hospitals Geneva Medical CenterPhysician [id number]#1.00CD:127Normal [facility] Medical CenterAuto Diffon 47-29-5109Eicdspcac/100 WBC (Bld)0.6 % Normal0.0-2.0University Hospitals Geneva Medical CenterComment on above:Order Comment: Order Added by Discern Expert.Performed By: #### [id number] #### [facility] [address] [place] [address]Tzqaccsvf/Leukocytes Auto (Bld) [Pure # fraction]0.0 E9/LNormal 0.0-0.2FCleveland ClinicComment on above:Order Comment: Order Added by Discern Expert.Performed By: #### [id number] #### [facility] [address] [place] [address]Acvgjgpmgxk/100 WBC (Bld)0.2 %Normal0.0-8.0University Hospitals Geneva Medical CenterComment on above:Order Comment: Order Added by Discern Expert.Performed By: #### [id number] #### [facility] [address], [place] [address]Xkjpeniklwn/Leukocytes Auto (Bld) [Pure # fraction]0.0 E9/L Normal0.0-0.5FCleveland ClinicComment on above:Order Comment: Order Added by Discern Expert.Performed By: #### [id number] #### [facility] [address] [place] [address]Krtsykjdmao/100 WBC (Bld)34.4 %Jukstx70.0-50.0University Hospit[facility] Geneva Medical CenterComment on above:Order Comment: Order Added by Discern Expert. Performed By: #### [id number] #### [facility] [address] [place] [address]Ligygfetzah/Leukocytes Auto (Bld) [Pure # fraction]2.5 E9/L Normal1.0-4.0[facility] Hospit[facility] Geneva Medical CenterComment on above:Order Comment: Order Added by Discern Expert.Performed By: #### [id number] #### [facility] [address] [place] [address]Dfqndjpli/100 WBC (Bld)6.1 %Normal4.0-14.0University Hospit[facility] Geneva Medical CenterComment on above:Order Comment: Order Added by Discern Expert.Performed By: #### [id number] #### [facility] [address] [place] [address]Ygyzqvnea/Leukocytes Auto (Bld) [Pure # fraction]0.4 E9/LNormal 0.2-1.0University Hospit[facility] Geneva Medical CenterComment on above:Order Comment: Order Added by Discern Expert.Performed By: #### [id number] #### [facility] [address] [place] [address]Naiejlxtuvp/100 WBC (Bld)58.7 %Maxyjd36.0-75.0University Hospit[facility] Geneva Medical CenterComment on above:Order Comment: Order Added by Discern Expert. Performed By: #### [id number] #### [facility] [address] [place] [address]Raqoihlzmbx/Leukocytes Auto (Bld) [Pure # fraction]4.2 E9/L Normal2.0-7.5FCleveland ClinicComment on above:Order Comment: Order Added by Discern Expert.Performed By: #### [id number] #### [facility] [address] [place] [address]ISCzs 50-32-5528Pgnoiktbve [Mass/Vol]0.8 mg/dLNormal0.5-1.3 [facility] Medical CenterComment on above:Performed By: #### [id number] #### [facility] [address], [place] [address]Clch nitrogen [Mass/Vol]12 mg/dLNormal5-21[facility] Hospit[facility] Geneva Medical CenterComment on above:Performed By: #### [id number] #### [facility] [address], [place] [address]Zzyb nitrogen/Creatinine [Mass ratio]15 No QgqvfCcfnzp41-99 [facility] Geneva Medical CenterComment on above:Performed By: #### [id number] #### [facility] [address], [place] [address]Vbbgn gap [Moles/Vol]11 mmol/LNormal6-16University Hospit[facility] Geneva Medical CenterComment on above:Performed By: #### [id number] #### [facility] [address], [place] [address]Fpdqfiw [Mass/Vol]9.7 mg/dLNormal8.9-11.1FCleveland ClinicComment on above:Performed By: #### [id number] #### [facility] [address], [place] [address]Owijrgwe [Moles/Vol]103 mmol/MWuekxy312-144JzxjplUniversity Hospitals Geneva Medical CenterComment on above:Performed By: #### [id number] #### [facility] [address], [place] [address]YC2 [Moles/Vol]27 mmol/TAmgfha40-93GwmjunUniversity Hospitals Geneva Medical Center Comment on above:Performed By: #### [id number] #### [facility] [address], [place] [address]Lvzaqbq [Mass/Vol]97 mg/dBWvdssd19-769QtdtutUniversity Hospitals Geneva Medical CenterComment on above:Result Comment: If this glucose result represents a fasting glucose, interpretation should refer tothe following reference range: 55-99 mg/dLPerformed By: #### [id number] #### [facility] [address], [place] [address]Bfqbmwjix [Moles/Vol]3.5 mmol/LNormal3.5-5.3FCleveland ClinicComment on above:Performed By: #### [id number] #### [facility] [facility] [address], [place] [address]Ypcfeq [Moles/Vol]137 mmol/OZpkats361-102HfnmpaBrook Lane Psychiatric CenterComment on above:Performed By: #### [id number] #### [facility] Laboratory [address] [place] [address] 09569TCS w/ Auto Diffon 38-72-3815Bbpqslixusv distribution width (RBC) [Ratio]13.3 %Ohcqeh48.9-14.2FCleveland ClinicComment on above: Performed By: #### [id number] #### [facility] Laboratory [address] [place] [address] 32847Dxdsfbrqab (Bld) [Volume fraction]37.6 %Phbxrv60.0-46.0[facility] CenterComment on above:Performed By: #### [id number] #### [facility] Laboratory [address], [place] [address]Qrgolayttm (Bld) [Mass/Vol]13.4 g/kXEwzkfh03.0-16.0[facility] CenterComment on above:Performed By: #### [id number] #### [facility] Laboratory [address] [place] [address] 18374DAT (RBC) [Entitic mass]31.9 jfQtdjdp21.0-34.0[facility] CenterComment on above:Performed By: #### [id number] #### [facility] Laboratory [address], [place] [address]UNBI (RBC) [Mass/Vol]35.7 g/pKEyvzwa67.4-36.0[facility] CenterComment on above:Performed By: #### [id number] #### [facility] Laboratory [address] [place] [address] 11095LIL (RBC) [Entitic vol]89.2 iZSovqpf98.0-100.0[facility] CenterComment on above:Performed By: #### [id number] #### [facility] Laboratory [address] [place] [address] 36869Regmmjtf mean volume (Bld) [Entitic vol]9.4 fLNormal6.4-10.8 [facility] CenterComment on above:Performed By: #### [id number] #### [facility] Laboratory [address] [place] [address] 71892Mluhnsnmv (Bld) [#/Vol]219.0 E9/OBgfdxb816.0-500.0[facility] CenterComment on above:Performed By: #### [id number] #### [facility] Laboratory [address] [place] [address] 24585IWW (Bld) [#/Vol]4.2 E12/LLow4.3-5.9[facility] Comment on above:Performed By: #### [id number] #### [facility] Laboratory [address] [place] [address] 90989AIO corrected for nucl RBC Auto (Bld) [#/Vol]7.2 E9/LNormal 4.0-11.0[facility] CenterComment on above:Performed By: #### [id number] #### [facility] Laboratory [address] [place] [address] 45789Nnyohng for Treatmenton 66-31-6768Gpsxrcg for Treatment [id number]#1.00CD:127[facility] HospitalDischarge Instructionson 36-82-7878Omqavyuir Instructions [id number]#1.00CD:127[facility] Clinical Summaryon 01-58-0465OU Clinical Summary [address] [id number] ED Clinical Summary Person Information Name: RAJIV TOVAR Marleni/[facility] Age: 24 Years : 1995 Sex: Female Language: Greenlandic PCP: Alon Weber MD Marital Status: Single [...] [address] [facility] [id number] PHYS DOC NOTES: Addendum by Laureano Phillip DO on April 19, 2020 08:26:02 EDT MEDICAL INFORMATION: Prescriptions Given: New Medications [id number], [address], [place] [id number], [phone] dicyclomine (dicyclomine 20 mg Tab) 1 Tablets By Mouth 3 times a day for 7 Days. Refills: 0. ondansetron (Zofran ODT 4 mg Tab) 1 Tablets By Mouth 3 times a day. Refills: 0. PATIENT EDUCATION INFORMATION: Instructions: Cholelithiasis Follow up: With: Address: When: [facility], [address] [place] [address] Business (1) In 3 days 04/22/2020 DIAGNOSIS: 1:Abdominal pain; Biliary colic; Gall stone; NauseaNormalFisher Husam Medical CenterED Note-Nursingon 04-21-6378TJ Note-NursingReport received from Zacarias Cuevas RN. Patient resting on cart. Updated on plan of care. Denies any needs at this time. Call light in reach.[facility] CenterED Note-Physicianon 83-42-4771AL Note-PhysicianBasic Information Time Seen: Susana Belcher M.D. [...] Discharged home Diagnosis: Abdominal pain, cholelithiasis, biliary colicNPomerene HospitalComment on above:Result Comment: Electronically Signed By: Laureano Phillip DO\.br\Date and Time Signed: 04/19/20 08:26EDTED Patient Education Noteon 99-33-5517GE Patient Education NoteFamily Medicine Cholelithiasis Cholelithiasis (also [...] medicine. HOME CARE INSTRUCTIONS ? Only take nhpp-zdf-gcoaibl or prescription medicines for pain, discomfort, or [...] Document Reviewed: 12/02/2013 ExitCare? Patient Information ?2015 [employer]. This information is not intended to replace advice given to you by your health care provider. Make sure you discuss any questions you have with yourhealth care provider.[facility] Patient Summaryon 30-84-0718KN Patient Summary [address] [address] Patient Discharge Instructions Person Information Name: RAJIV TOVAR Age: 24 Years Arrival Date: 04/19/2020 06:10:12 Discharge Diagnosis: 1:Abdominal pain; Biliary colic; Gall stone; Nausea Primary Care Physician: Alon Weber MD Provider Information Primary Provider: Susana Belcher M.D. Advanced Reservationist:None The exam and treatment you received in the Emergency Department were for an urgent problem and are not intended as complete care. It is important that you follow up with a doctor, nurse practitioner,or physician?s prosthetic assistant for ongoing care. If your symptoms become worse or you do not improve as expected and you are unable to reach your usual health care provider, you should return to the Emergency Department. We are available 24 hours a day. RAJIV TOVAR has been given the following list of patient education materials, prescriptions and follow-up instructions: Follow-up Instructions: With: Address: When: [facility], [address] [place] [address] Business (1) In 3 days 04/22/2020 In the event that this physician does not participate in your insurance network, please consult with your insurance company to find a nearby participating provider. Patient Education Materials: Cholelithiasis A MESSAGE TO ALL PATIENTS REGARDING OPIOIDS PRESCRIPTION OPIOIDS: WHAT YOU NEED TO KNOW Prescription opioids can be used to help relieve npiuwnlg-az-lrfwpt pain and are often prescribed following a [...] be struggling with addiction, tell your health long term care social worker and ask for guidance or call [facility]?S National Helpline at 4-136-1 (more content not included)...NormalUniversity Hospitals Geneva Medical CenterHep Func Panelon 44-15-1304Qttpjfcyu.indirect [Mass or moles/Vol]UTCAbnormal0.1-0.9[facility] CenterComment on above:Result Comment: Result verified by Discern Rule. Performed result UTC (Unable to Calculate) was sent as an Alpha code due the inability to calculate a valid numeric value.Performed By: #### [id number] #### [facility] Laboratory [address], [place] [address]Dldasgt [Mass/Vol]4.3 g/dLNormal3.3-5.0[facility] CenterComment on above:Performed By: #### [id number] #### [facility] Laboratory [address], [place] [address]Sxrhwfa/Globulin (S) [Mass conc ratio]1.6Zvsdfa7.1-2.2FCleveland ClinicComment on above:Performed By: #### [id number] #### [facility] Laboratory [address], [place] [address]RIZ [Catalytic activity/Vol]77 Int._Unit/SBicqbh86-50MazvaqUniversity Hospitals Geneva Medical CenterComment on above:Performed By: #### [id number] #### [facility] Laboratory [address], [place] [address]SUC No additional P-5'-P [Catalytic activity/Vol]59 Int._Unit/L High6-46[facility] CenterComment on above:Performed By: #### [id number] #### [facility] Laboratory [address] [place] [address] 88854LAJ [Catalytic activity/Vol]36 Int._Unit/LNormal5-43[facility] CenterComment on above:Performed By: #### [id number] #### [facility] Laboratory [address] [place] [address] 56525Tkkpfrtrc [Mass/Vol]0.4 mg/dLNormal0.0-1.1FCleveland ClinicComment on above:Performed By: #### [id number] #### [facility] Laboratory [address] [place] [address] 39128Dxrjsotcy.direct [Mass/Vol]mg/dLNormal0.1-0.4FCleveland ClinicComment on above:Performed By: #### [id number] #### [facility] [address] [place] [address] 10065Fxzxrxxe (S) [Mass/Vol]2.8 g/dLNormal1.4-4.0[facility] CenterComment on above:Performed By: #### [id number] #### [facility] Laboratory [address] [place] [address] 20107Afzmxzq [Mass/Vol]7.1 g/dLNormal6.0-7.8[facility] CenterComment on above:Performed By: #### [id number] #### [facility] Laboratory [address] [place] [address] 553[address]Rusbin Levelon 91-45-6860Psszyn [Catalytic activity/Vol]43 U/L Zwuqxf77-07FpmptbUniversity Hospitals Geneva Medical CenterComment on above:Performed By: #### [id number] #### [facility] Laboratory [address] [place] [address] 31177DX & PTTon 10-76-3136yJWS Coag (PPP) [Time]30.2 second(s)Normal 25.1-36.5FCleveland ClinicComment on above:Result Comment: Heparin therapeutic range (represented by Anti-Factor Xa activity of 0.2 - 0.4 U/mL) corresponds to PTT of 56.6 - 109.0 sec.Performed By: #### [id number] #### [facility] Laboratory [address], [place] [address]SBV Coag (PPP) [Relative time]1.0 {INR}Invalid Interpretation CodeUniversity Hospitals Geneva Medical CenterComment on above:Result Comment: INR results are specifically intended to assess patients stabilized on long-term Anticoagulation therapy suggested INR?s ?Less Intensive Anticoagulation? 2.0 ? 3.0 Conventional Range 3.0 ? 4.5Performed By: #### [id number] #### [facility] Laboratory [address], [place] [address]XV Coag (PPP) [Time]11.8 second(s)Fufmye78.2-12.9[facility] CenterComment on above:Performed By: #### [id number] #### [facility] Laboratory [address] [place] [address] 88691Qcrshuvgmhhlf/Work Noteson 68-31-2798Bhlocotlstqco/Work Notes [id number]:127NormProMedica Fostoria Community HospitalU BetaHcg Qualon 70-82-6371XEK.beta subunit (U) [Moles/Vol]NegativeNormal [facility] CenterComment on above:Performed By: #### [id number] #### [facility] Laboratory [address], [place] [address]TG With Cult Reflexon 75-22-8299Lsedqche LM Ql (Urine sed)TRACE NormalTraceUniversity Hospitals Geneva Medical CenterComment on above:Performed By: #### [id number] #### [facility] [address], [place] [address]Sfefahnho Ql (U)NegativeNormalNegativeUniversity Hospitals Geneva Medical CenterComment on above:Performed By: #### [id number] #### [facility] Laboratory [address] [place] [address] 53560Gijsllj (U)CLEARNormalClearUniversity Hospitals Geneva Medical CenterComment on above:Performed By: #### [id number] #### [facility] [address], [place] [address]Ibish (U)YELLOWNormalYellowUniversity Hospitals Geneva Medical CenterComment on above:Performed By: #### [id number] #### [facility] [address], [place] [address]Lfkeglis LM Ql (Urine sed)PresentNormalUniversity Hospitals Geneva Medical CenterComment on above:Performed By: #### [id number] #### [facility] [address], [place] [address]Thguedfnzg cells.squamous LM.HPF (Urine sed) [#/Area]3-4Normal 0-2Fisher Johns Hopkins HospitalComment on above:Performed By: #### [id number] #### [facility] Laboratory [address] [place] [address] 99386Wawsbff Test strip (U) [Mass/Vol]NegativeNormalNegativeUniversity Hospitals Geneva Medical CenterComment on above:Performed By: #### [id number] #### [facility] Laboratory [address], [place] [address]Ijtgkegezv Ql (U)TRACEAbnormalNegativeUniversity Hospitals Geneva Medical CenterComment on above:Performed By: #### [id number] #### [facility] Laboratory [address], [place] [address]Unomkmc (U) [Mass/Vol]NegativeNormalNegativeUniversity Hospitals Geneva Medical CenterComment on above:Performed By: #### [id number] #### [facility] Laboratory [address], [place] [address]Evtvjdi.plasma/Grainola.RBC (Bld) [Mass ratio]5-5Zvtcjd8-9Acqogh [facility] Hopkins HospitalComment on above:Performed By: #### [id number] #### [facility] Laboratory [address], [place] [address]Mcrjtdr Ql (U)NegativeNormalNegativeUniversity Hospitals [facility] Comment on above:Performed By: #### [id number] #### [facility] [address] [place] [address] 42786eN (U)6.5 [pH]Invalid Interpretation Code5.0-9.0[facility] CenterComment on above:Performed By: #### [id number] #### [facility] [address] [place] [address]Lzydmok (U) [Mass/Vol]NegativeNormalNegativeUniversity Hospitals Geneva Medical CenterComment on above:Performed By: #### [id number] #### [facility] [address] [place] [address] 33804Cyutpbfq gravity (U) [Rel density]1.025Invalid Interpretation Code1.005-1.030[facility] CenterComment on above:Performed By: #### [id number] #### [facility] [address] [place] [address]HD Spec DescClean CatchNormalUniversity Hospitals Geneva Medical CenterComment on above:Performed By: #### [id number] #### [facility] [address] [place] [address] 825[address]Wvlopwgoxysg Qn (U)0.2 {Arnie'U}/dLNormal0.0-1.0[facility] CenterComment on above:Performed By: #### [id number] #### [facility] [address] [place] [address] 33091RYE Auto Ql (U)NegativeNormalNegativeUniversity Hospitals Geneva Medical CenterComment on above:Performed By: #### [id number] #### [facility] [address] [place] [address] 12168KNK LM.HPF (Urine sed) [#/Area]8-8Hezleg9-3Gqcqbo Johns Hopkins HospitalComment on above:Performed By: #### [id number] #### [facility] [address], [place] [address]QM Abdomen, Limitedon 23-09-2307XG Abdomen, LimitedExam Date/Time: 04/19/2020 08:29 EDT Reason [...] Isaiah Guo M.D. Transcribed by: OLGA Technologist: RicardochapoUniversity Hospitals Geneva Medical CentereGFRon 32-12-4068CMK/1.73 sq M.predicted among blacks MDRD (S/P/Bld) [Vol rate/Area] mL/min/{1.73_m2}Normal>=59[facility] CenterComment on above:Order Comment: Order added by Discern Expert.Result Comment: eGFR is race adjusted. AA=.Performed By: #### [id number] #### [facility] [address], [place] [address]CHG/1.73 sq M.predicted among non-blacks MDRD (S/P/Bld) [Vol rate/Area]mL/min/{1.73_m2}Normal>=59[facility] CenterComment on above: Order Comment: Order added by Discern Expert.Result Comment: Chronic kidney disease could be indicated at eGFR's of less than 60 mL/min/1.73m2. Kidney failure is indicated at less than 15 mL/min/1.73m2.Performed By: #### [id number] #### [facility] [address] [place] [address] Vital Signs Date TimeVital SignValuePerforming RwttedgglNkcppsbj06-87-2989 14:25-0400Body yrltbs295.6 Tere Austin MD Work Phone: [phone] [place], [place] [address]Hkrbndgmgw29-30-8435 14:25-0400Body mass index (BMI) [Ratio]28.08 kg/j5PtwhbJamar Austin MD Work Phone: [phone] [place], [place] [address]Ucmoowfmam08-89-7165 14:25-0400Body wayxzm95.93 kgJamar Austin MD Work Phone: [phone] [place], [place] [address]Ebspspchnr26-22-1033 14:25-0400Diastolic blood nlfbtaqm51 mm[Hg]Jamar Austin MD Work Phone: [phone] [place], [place] [address]Aplmennbel60-10-7477 14:25-0400Heart rate88 /min Jamar Austin MD Work Phone: [phone] [place], [place] [address]Oerojaztkq15-58-0299 14:25-0400Respiratory rate18 /minJamar Austin MD Work Phone: [phone] [place], [place] [address]Weyvjrvoip12-18-5182 14:25-7149GqE1% (BldA) [Mass fraction]98 %Jamar Austin MD Work Phone: [phone] [place], [place] [address]Xceceovlut70-39-7160 14:25-0400Systolic blood siugweey503 mm[Hg]Jamar Austin MD Work Phone: [facility] HospitalPjyzzxbqyz27-25-3859 10:52-0400Body mass index (BMI) [Ratio]24.37 kg/e2Jbnjr Dragan DO Work Phone: [facility]OPark[facility] CenterCemhqmmpdr51-58-8078 10:52-0400Body vngylk31.49 kgCorelnein Dragan DO Work Phone: NOParkland Health CenterJrlbpcbmss02-97-6438 10:52-0400Diastolic blood qzwnntyt42 mm[Hg]Flynn Dragan DO Work Phone: noMS Mkptsdaewm34-66-1878 10:52-0400Systolic blood mm[Hg]Flynn Archibald DO Work Phone: noMS Healthcare Encounters Encounter DateEncounter TypeCare ProviderFacilityStart: 04-19-2025 End: 47-20-7161esqunqrgxnTmkcdwu Vy[place]utas Giedraitis MDFacility:[facility] [place] Start: 10-06-2024 End: 07-73-4084Zmqfsd outpatient new 45 minutesJamar Austin MD Work Phone: noms ENDOCRINOLOGYComment on above:Hair loss (Primary Dx); Weight gain; Encounter for dietary consultation; Vitamin D deficiencyStart: 10-06-2024 End: 75-29-6792rpaxqkrsrcIZTBO F SABBAGHNot AvailableStart: 10-06-2024 End: 96-38-4711Romshr Sajan Austin MD Work Phone: noms ENDOCRINOLOGYStart: 10-06-2024 End: 91-01-2111Ibomei Sajan Austin MD Work Phone: noms ENDOCRINOLOGYStart: 09-17-2024 End: 31-70-0067Bunadm outpatient visit 15 minutesEmtasia Singh MD Work Phone: noms [facility] DERMComment on above:Herpesviral vesicular dermatitis (Primary Dx)Start: 09-17-2024 End: 47-11-1554fhgscumiqaFDTBD A PETITTINot AvailableStart: 09-17-2024 End: 05-30-6110Vpukla flowsheetMy Singh MD Work Phone: noms [facility] DERMStart: 09-17-2024 End: 49-40-6495Rxuxar Andres Singh MD Work Phone: noms [facility] DERMStart: 03-03-2024 End: 70-24-3781Asjked flowsheetFlynn Dragan DO Work Phone: noMS BCP OBStart: 03-03-2024 End: 77-97-2652Zjsupr flowsheetCorey Dragan DO Work Phone: noms BCP OBStart: 03-03-2024 End: 38-34-7214Frtkqffxc Result EncounterCorey Dragan DO Work Phone: noms External Department UnsolicitedStart: 03-03-2024 End: 96-78-7162Cvdlao outpatient visit 15 minutesCorey Dragan DO Work Phone: noms BCP OBComment on above:Hormone imbalance; Hot flashes; Rolle; Weight gain; PCOS (polycystic ovarian syndrome)Start: 03-03-2024 End: 73-37-6419aozmictxuiXJESX FAZIONot AvailableStart: 10-21-2023 End: 13-55-7142kxmrnxknrdZGT RAMEYNot AvailableStart: 09-10-2023 End: 26-88-4892Ifjzyygwo Result EncounterCorey Dragan DO Work Phone: noms External Department UnsolicitedStart: 09-10-2023 End: 80-45-2814Kcvlpmzri Result EncounterCorey Dragan DO Work Phone: noms External Department UnsolicitedStart: 08-08-2023 Bamboo flowsheetEmily Emiliano Singh MD Work Phone: noms SWS DERMStart: 81-02-9985Rfetcu flowsheetEmtasia Singh MD Work Phone: NOON SWS DERMStart: 08-08-2023 End: 83-01-3599Blynzo outpatient visit 15 minutesEmily Emiliano Singh MD Work Phone: noms [facility] DERMComment on above:Herpesviral vesicular dermatitis (Primary Dx)Start: 09-03-2021 End: 45-81-6419mylbycclciYB ALON HOYFacility:W5Egwyu: 91-60-7886cjtcnywuywLU AKASH S KUMARFacility:D0Ukyhc: 08-01-2021 End: 45-44-5835hyotvnsvyjVN AKASH S KUMARFacility:T1Xirwa: 07-18-2021 End: 41-38-6701xtjcsycoftGY AKASH S KUMARFacility:B8Yjtpm: 07-04-2021 End: 43-73-3965zbfbqpedefKB AKASH S KUMARFacility:H1 Procedures DateProcedureProcedure DetailPerforming ClinicianStart: 78-42-1412SLD CBC WITH AUTO DIFFCorey Dragan DO Work Phone: Start: 43-79-8286JT PELVIS W/ TRANSVAGINALCorey Dragan DO Work Phone: Plan of Treatment DateCare ActivityDetailAuthorStart: 09-15-2025 End: 18-88-9232Urkmrvs encounter procedureNOMS SWS DERMStart: 10-06-2024 End: 15-59-8260Nowmmfz encounter kbrgqtydr97/15/2025 2:20 PM EDT Office Visit [facility] [address] [place] [phone] Jamar Austin MD [address] [place] [address] ArrivedNOCOLUMBIA [facility] ENDOCRINOLOGYComment on above:Arrived Start: 10-06-2024 End: 735771-qbegbkhzjhetbj D3 [Mass/volume] in Serum or PlasmaVitamin D 25 hydroxy Lab Routine Vitamin D deficiency Expected: 10/06/2024 (Approximate), Expires: 10/06/2025[facility] HealthcareComment on above:Expected: 10/06/2024 (Approximate), Expires: 10/06/2025Start: 10-06-2024 End: 28-40-8340Ajpoh metabolic 1998 panel - Serum or PlasmaBasic metabolic panel Lab Routine Encounter for dietary consultation Expected: 10/06/2024 (Approxima te), Expires: 10/06/2025[facility] HealthcareComment on above:Expected: 10/06/2024 (Approximate), Expires: 10/06/2025Start: 10-06-2024 End: 25-39-5015Ttczvqwb AMCortisol AM Lab Routine Weight gain Expected: 10/06/2024 (Approximate), Expires: 10/06/2025[facility] HealthcareComment on above: Expected: 10/06/2024 (Approximate), Expires: 10/06/2025Start: 10-06-2024 End: 76-15-9725Pplhezsjrrk [Units/volume] in Serum or PlasmaTSH Lab Routine Hair loss Weight gain Expected: 10/06/2024 (Approximate), Expires: 10/06/2025[facility] HealthcareComment on above:Expected: 10/06/2024 (Approximate), Expires: 10/06/2025Start: 10-06-2024 End: 38-88-6026Oskayznzg (T4) free [Mass/volume] in Serum or PlasmaT4, free Lab Routine Hair loss Weight gain Expected: 10/06/2024 (Approximate), Expires: 10/06/2025[facility] HealthcareComment on above:Expected: 10/06/2024 (Approximate), Expires: 10/06/2025Start: 10-06-2024 End: 35-49-2974Wasygggsiompuiaw (T3) Free [Mass/volume] in Serum or PlasmaT3, free Lab Routine Hair loss Weight gain Expected: 10/06/2024 (Approximate), Expires: 10/06/2025[facility] Healthcare Work Phone: Comment on above:Expected: 10/06/2024 (Approximate), Expires: 10/06/2025Start: 09-17-2024 End: 91-48-6743Hwpzggb encounter svdpjyeno78/27/2025 2:20 PM EDT Office Visit [facility] [address] [place] [address] My Singh MD [address] [place], [place] [phone] [facility]rivedSTEW[facility] SWS DERMComment on above:ArrivedStart: 08-10-2024 End: 09-24-7335Ijvozmq encounter kuypttbiy62/17/2025 1:00 PM EST Office Visit [facility] [address] [place] [address] My Singh MD [address] [place] [address] [facility] SWS DERMStart: 03-18-2024 End: 15-74-6081Sfjejrv encounter kdxapnefr15/25/2024 8:00 AM EDT Office Visit [facility] [address] [place] [phone] Flynn Archibald, DO [address] [place] [address] [place] [address] [facility] BCP OBStart: 03-03-2024 End: 39-88-6876HZDDBIWT Lab Routine PCOS (polycystic ovarian syndrome) Expected: 03/03/2024 (Approximate), Expires: 03/03/2025N[facility] HealthcareComment on above: Expected: 03/03/2024 (Approximate), Expires: 03/03/2025Start: 03-03-2024 End: 28-41-8251Xlnvhtd encounter chmetmteo18/10/2024 10:40 AM EDT Office Visit [facility] [address] [place] [phone] Flynn Archibald, [address] [place] [address] ArrivedNOCO BCP OBComment on above:ArrivedStart: 08-22-2023 End: 70-40-1873Ruvovwp encounter ruofvdjmk81/29/2024 11:50 AM EST Office Visit [facility] [address] [place] [phone] Flynn Archibald, [address] [place] [address] [facility] BCP OBCBC W Auto Differential panel - BloodCBC and differential Lab Routine PCOS (polycystic ovarian syndrome) Ordered: 03/03/2024 [facility] HealthcareComment on above:Ordered: 03/03/20249245HKAE-bcchdrxCCPT-zliptin Lab Routine PCOS (polycystic ovarian syndrome) Ordered: 03/03/2024[facility] Healthcare Comment on above:Ordered: 03/03/2024EstradiolEstradiol Lab Routine Hormone imbalance Hot flashes Weight gain PCOS (polycystic ovarian syndrome) Ordered: 03/03/2024[facility] HealthcareComment on above:Ordered: 03/03/2024Follicle stimulating hormoneFollicle stimulating hormone Lab Routine PCOS (polycystic ovarian syndrome) Ordered: 03/03/2024[facility] HealthcareComment on above:Ordered: 03/03/2024hCG, quantitative, pregnancyhCG, quantitative, Lab Routine PCOS (polycystic ovarian syndrome) Ordered: 03/03/2024[facility] Work Phone: comment on above:Ordered: 03/03/2024Hemoglobin A1c/Hemoglobin.total in BloodHemoglobin A1c Lab Routine Hormone imbalance Hot flashes Weight gain PCOS (polycystic ovarian syndrome) Ordered: 03/03/2024[facility] HealthcareComment on above:Ordered: 03/03/2024Luteinizing hormoneLuteinizing hormone Lab Routine PCOS (polycystic ovarian syndrome) Ordered: 03/03/2024[facility] HealthcareComment on above:Ordered: 03/03/2024rogesteroneProgesterone Lab Routine Hormone imbalance Hot flashes Weight gain PCOS (polycystic ovarian syndrome) Ordered: 03/03/2024[facility] HealthcareComment on above:Ordered: 03/03/2024 Thyrotropin [Units/volume] in Serum or PlasmaTSH Lab Routine PCOS (polycystic ovarian syndrome) Ordered: 03/03/2024[facility] HealthcareComment on above:Ordered: 03/03/2024Thyroxine (T4) free [Mass/volume] in Serum or PlasmaT4, free Lab Routine PCOS (polycystic ovarian syndrome) Ordered: 03/03/2024[facility] Healthcare Comment on above:Ordered: 03/03/2024 Payers DatePayer CategoryPayerPolicy [id number] Cross Blue [id number] [id number] 2.16.840.1.825547.3.57[id number] 2.16.840.1.436077.3.57[id number] 2.16.840.1.732144.3.57[id number] 2.16.840.1.529165.3.57[id number] 2.16.840.1.391948.3.57[id number] 2.16840.1.731065.3.57[id number] 2.16.840.1.694503.3.57[id number] 2.16.840.1.431904.3.57[id number] 2.16.840.1.295734.3.57[id number] 2.840.1.303825.3.579.[id number] Social History DateTypeDetailFacilityTobacco smoking status NHISTobacco smoking consumption unknownST[facility] HealthcareStart: 65-50-5872Rvk Assigned At BirthNot on [facility] HealthcareStart: 08-08-2023 End: 89-54-7931Jbphob identityNot on [facility] HealthcareStart: 93-93-5019Pjzlqnn smoking status NHISNever smoked tobaccoNOCO HealthcareStart: 19-07-8591Apvrkkv use and exposureSmokeless tobacco non-userNOCO HealthcareStart: 08-08-2023 End: 83-56-0740Gwdgxwp of Social functionNOMS HealthcareStart: 09-09-2023 End: 17-15-3135Cuuzamwcs beverage intakeLifetime non-drinker (finding)[facility] HealthcareStart: 67-54-7262QpaIfgxouAFVA Healthcare Clinical Notes 05-02-2020 to 10-06-2024 Note Date & DdrbApjeRjzcsimt59-66-5199 History of Present illness Narrative* Jamar Austin [...] 1 year (around 10/06/2025). documented in this encounterGolden Valley Memorial HospitalDvuxppqbpo63-57-2632 History of Present illness Narrative* My Singh [...] 1 year follow up documented in this encounterGolden Valley Memorial HospitalDiqkayajbp41-88-1997 History of Present illness Narrative* Marielle Morelos [...] CAPSULE BY MOUTH EVERY 6 HOURS NEEDED Mxaqjx08 day hyoscyamine (Levsin) 0.125 MG SL tablet [...] nursing note reviewed. Exam conducted with a binding cutter synthetic cloth present. Vitals: Estimated body mass index is [...] of: Flynn Archibald DO documented in this encounterGolden Valley Memorial HospitalZqszkrlmyc60-92-4166 History of Present illness Narrative* My Singh [...] 1 year (follow up) documented in this encounterGolden Valley Memorial HospitalYbewrucmyx02-91-4888 NoteCONSULTATION CHIEF COMPLAINT: Mid-back pain, right low [...] like to proceed. CC: [facility] HospitalVxppiuxv49-50-4649 NoteCONSULTATION CHIEF COMPLAINT: Mid-back pain, right low [...] like to proceed. CC: Dr. Alon Weber [facility] Signed and Approved by: DR AKASH MARTINEZ . 07/25/2021 08:02:00[facility]09-07-2021 NoteInfectious Disease COVID-19: How to Protect Yourself and Others Know how it spreads ? There is currently no vaccine to prevent coronavirus disease 2019 (COVID-19). ? The best way to prevent illness is to avoid being exposed to this virus. ? The virus is thought to spread mainly from lpkqsr-nt-bvzmqs. ? Between people who are in close [...] are not readily available, use a hand formula bottler that contains at least 60% alcohol. Cover [...] at higher risk of getting very sick.www.cdc.gov/co ronavirus/2019-ncov/ffce-freyr-ckeyoyhzdya/jpnfti-tb-nkzhwd-risk.html Cover your mouth and nose with a [...] available, clean your hands with a hand formula bottler that contains at least 60% alcohol. Clean and disinfect ? Clean AND disinfect frequently touched surfaces daily. This includes tables, doorknobs, light switches, countertops, handles, desks, phones, keyboards, toilets, faucets, and sinks. www.cdc.gov/coron avirus/2019-ncov/onhrmbi-stugkko-tnbw/ocplehizzshz-rxjg-kxkx.html ? If surfaces are dirty, clean them: [...] Reviewed: 12/31/2019 Elsevier Patient Education ? 2019 [employer] COVID-19 Frequently Asked Questions COVID-19 (coronavirus disease) is an infection that is caused by a large family of viruses. Some viruses cause illness in people and others cause illness in animals like camels, cats, and bats. In some cases, the viruses that cause illness in animals can spread to humans. Where did the coronavirus come from? In May 2019, [place] told the World Health Organization (WHO) of several cases of lung disease (human respiratory illness). These cases were linked to an open seafood and livestock market in the city of [facility]. The link to the seafood and [...] and virus naming World Health Organization (WHO): www.who.int/emergencies/diseases/bwqfv-eokbnhcztng-4891/technical-g uidance/pygbmq-zsb-tpaxwlscmzq (more content not included)...[facility]11-12-2020 [id number]#1.00CD:127 [facility]11-09-2020 Note [id number]:127[facility] Evaluation note* Diagnosis Herpesviral vesicular dermatitis- Primary [...] section and content) DATE CREATED AUTHOR 03/05/2021 [facility] DATE CREATED AUTHOR AUTHOR'S ORGANIZ ATION 04/10/2021 [facility] DATE CREATED AUTHOR AUTHOR'S ORGANIZ ATION 07/02/2022 [facility] DATE CREATED AUTHOR AUTHOR'S ORGANIZ ATION 10/08/2024 [facility] DATE CREATED AUTHOR AUTHOR'S ORGANIZ ATION 05/07/2025 [facility] Reason for Visit (unrecogniz ed section and content) ReasonCommentsFollow-upReasonCommentshormone imbalancePt present today to check hormone levels.ReasonCommentsThyroid ProblemNEW MAR 17 LABS NO REFERRAL Care Teams (unrecognized sec tion and content) Team MemberRelationshipSpecialtyStart DateEnd Date Alon Weber MD [address] [place] [address] PCP - GeneralFamily Medicine08/22/23Team MemberRelationshipSpecialtyStart DateEnd Date Alon Weber MD [address] [place] [address] PCP - GeneralFamily Medicine08/22/23Team MemberRelationshipSpecialtyStart DateEnd Date Alon Weber MD [address] [place] [address] [facility] - [facility]08/22/23Team MemberRelationshipSpecialtyStart DateEnd Date Alon Weber MD [address] [place] [address] [facility] - [facility]08/22/23Team MemberRelationshipSpecialtyStart DateEnd Alon Weber MD [address] [place] [address] [facility]08/22/23Te MemberRelationshipSpecialtyStart DateEnd Date Alon Weber MD [address] [place] [address] [facility]08/22/23Te MemberRelationshipSpecialtyStart DateEnd Alon Weber MD [address] [place] [address] [facility]08/22/23Te MemberRelationshipSpecialtyStart DateEnd Date Alon Weber MD [facility] - [facility]08/22/23 FOR RECORDS PERTAINING TO PATIENTS WHO [...] PRIMARY CLINICAL RECORDS. [facility]. provides no warranty or guarantee of the accuracy or completeness of information in this document.
--- NOTE | 2025-06-21 12:50 | PM.CN ---
Consult Note: HPI Data of Consult Patient: known to practice within the last 3 years Consult date: 06/21/25 Requesting Physician: Harley Maldonado MD Primary Care Provider: Sixto Gomez MD Consult Narrative Reason for consult: midback, low back pain Narrative: 30yof who presents for assessment. continues to have low back pain, but now worsening midback pain that is higher than previous area of concern. pain near bra line at this point. continues in a series of provider directed home exercises >6 weeks, without benefit. uses otc meds as needed. cc:: CC: Harley Maldonado MD Review of Systems ROS Status of ROS 10 or more systems reviewed and unremarkable except as noted in history and below [facility] Medical History Pain of joint of left ankle and foot ?M25.572 - Pain in left ankle and joints of left foot (ICD-10) Primary osteoarthritis, left ankle and foot ?M19.072 - Primary osteoarthritis, left ankle and foot (ICD-10) Painful orthopaedic hardware ?T84.84XA - Pain due to internal orthopedic prosthetic devices, implants and grafts, initial encounter (ICD-10) Insomnia ?G47.00 - Insomnia, unspecified (ICD-10) PTSD (post-traumatic stress disorder) ?F43.10 - Post-traumatic stress disorder, unspecified (ICD-10) Panic attacks ?F41.0 - Panic disorder [episodic paroxysmal anxiety] (ICD-10) Depression ?F32.A - Depression, unspecified (ICD-10) Anxiety ?F41.9 - Anxiety disorder, unspecified (ICD-10) COVID-19 ?U07.1 - COVID-19 (ICD-10) Migraine ?G43.909 - Migraine, unspecified, not intractable, without status migrainosus (ICD-10) Endometriosis ?N80.9 - Endometriosis, unspecified (ICD-10) Pelvic pain ?R10.2 - Pelvic and perineal pain (ICD-10) Heart murmur ?R01.1 - Cardiac murmur, unspecified (ICD-10) Hyperthyroidism ?E05.90 - Thyrotoxicosis, unspecified without thyrotoxic crisis or storm (ICD-10) Postoperative nausea and vomiting ?R11.2 - Nausea with vomiting, unspecified (ICD-10) ?Z98.890 - Other specified postprocedural states (ICD-10) Surgical History S/P epidural steroid injection ?Z92.241 - Personal history of systemic steroid therapy (ICD-10) H/O laparoscopy (10/11/23) ?Z98.890 - Other specified postprocedural states (ICD-10) History of cholecystectomy ?Z90.49 - Acquired absence of other specified parts of digestive tract (ICD-10) History of laparoscopy ?Z98.890 - Other specified postprocedural states (ICD-10) History of section ?Z98.891 - History of uterine scar from previous surgery (ICD-10) History of ankle surgery ?Z98.890 - Other specified postprocedural states (ICD-10) History of ankle surgery ?Z98.890 - Other specified postprocedural states (ICD-10) History of ankle surgery ?Z98.890 - Other specified postprocedural states (ICD-10) Family History Other Family history of breast cancer Family history of hypertension Family history of leukemia Family history of lung cancer Social History Within the past year, how often did you have a drink containing alcohol: monthly or less Smoking status: Never smoker Non-prescribed substance use: denies use 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 Highest level of school completed/degree received: high school graduate Meds Home Medications and Allergies Home Medications ?Medication ?Instructions ?Recorded ?Confirmed ?Type drospirenone 3 mg-ethinyl 1 tab PO DAILY 07/01/23 04/19/25 History estradiol 0.03 mg tablet hydroxyzine pamoate 50 mg capsule 50 mg PO Q6H PRN nausea and 07/01/23 04/19/25 History vomiting venlafaxine 150 mg 150 mg PO DAILY 07/01/23 04/19/25 History capsule,extended release 24 hr ibuprofen 800 mg tablet 800 mg PO Q8H PRN pain 14 days #40 10/11/23 04/19/25 Rx tabs buspirone 15 mg tablet 15 mg PO DAILY 04/01/25 04/19/25 History lamotrigine 100 mg tablet 200 mg PO DAILY 04/01/25 04/19/25 History Allergies Allergy/AdvReac Type Severity Reaction Status Date / Time Penicillins Allergy Hives Verified 04/19/25 07:55 Sulfa (Sulfonamide Allergy Hives Verified 04/19/25 07:55 Antibiotics) hydrocodone AdvReac Intermediate Hives Verified 04/19/25 07:55 oxycodone AdvReac Intermediate Hives Verified 04/19/25 07:55 Exam Narrative Exam Narrative: Psych-alert and oriented x 3. Attentive and appropriate, constitutionally normal, displays normal mood and affect per situation.? There are no obvious deficits in memory, reasoning, or intellect.? Skin-no obvious rashes, bruising, erythema noted to the patient's area of pain. Extremities- extremities are warm with minimal edema and palpable pulses. Lumbar-no significant tenderness to palpation noted in the lumbar spine and paraspinal musculature.? Pain is elicited with extension, and lateral rotation of the lumbar spine. Range of motion is slightly diminished with these motions due to pain. Coordination remains intact.? Gait remains non-antalgic. Assessment and Plan Assessment and Plan (1) Lumbar spondylosis: (2) Mid-back pain, acute: Plan 30yof who presents for assessment. failed conservative measures, as noted. given symptoms and history, will have her undergo thoracic and lumbar xr for further info. she is in agreement. meds reviewed, she would like to avoid all medications. follow up after imaging.
== END 2025-06-21 12:18 | disposition home or self-care (01) ==
LOC: PM 12:17
PROVIDERS: PCP Family Medicine; Visit Provider Anesthesiology
DX: M47.816 Spondylosis without myelopathy or radiculopathy, lumbar region (principal); M54.9 Dorsalgia, unspecified
CPT/HCPCS: G0463